=== PATIENT | male | born 1965 | race Caucasian/White ===

== ENCOUNTER 2024-02-26 11:37 | Outpatient (OUT) | payer BC, SELFPAY ==
[2024-02-26 16:36] LABS: Magnesium 0.9 mg/dL (1.8-2.4)
== END 2024-02-26 11:38 | disposition home or self-care (01) ==
LOC: LAB 11:40
PROVIDERS: PCP Nurse Practitioner; Visit Provider Nurse Practitioner
DX: E83.42 Hypomagnesemia (principal)
CPT/HCPCS: 36415; 83735

== ENCOUNTER 2024-02-27 09:21 | Emergency (ER) | payer BC, SELFPAY ==
[2024-02-27] VITALS (37 sets, daily range): BP systolic 117–162; BP diastolic 80–113; PULSE 67–93; TEMP 36.7; O2SAT 89–98; BMI 38.4
--- NOTE | 2024-02-27 09:41 | ECG_ITS ---
[facility] Test Date: 2024-02-27 Pat Name: VANDA GUILLAUME Department: Room: - Gender: Male Speck Dyer: : 1965 Requested By: ARVIND MUHAMMAD Order Number: [id number] Reading MD: VIOLETA MONTGOMERY Measurements Intervals [place] Rate: 82 P: 42 ID: [id number] QRS: -42 QRSD: 80 T: 24 QT: 354 QTc: 393 Interpretive Statements 1100 Sinus rhythm 1102 Sinus arrhythmia 7200 Abnormal left axis deviation 9130 borderline ECG No previous ECG available for comparison Electronically Signed On 02-27-2024 21:23:54 EDT by VIOLETA MONTGOMERY
--- OUTSIDE RECORDS SUMMARY | 2024-02-27 09:49 | XMS_ITS | CCD ---
Author Organization [facility] Care Team Providers Care Jig And Fixture Repairer Name Role Phone AICHHOLZ, CONCRETE BUCKET LOADER ARVIND Primary Care Unavailable AICHHOLZ, CONCRETE BUCKET LOADER ARVIND Consulting Unavailable AICHHOLZ, CONCRETE BUCKET LOADER ARVIND Attending Unavailable AICHHOLZ, CONCRETE BUCKET LOADER ARVIND Admitting Unavailable AICHHOLZ, CONCRETE BUCKET LOADER ARVIND Consulting Unavailable AICHHOLZ, CONCRETE BUCKET LOADER ARVIND Attending Unavailable AICHHOLZ, CONCRETE BUCKET LOADER ARVIND Admitting Unavailable AICHHOLZ, CONCRETE BUCKET LOADER ARVIND Primary Care Unavailable AICHHOLZ, CONCRETE BUCKET LOADER ARVIND Primary Care Unavailable DR CRIS GAN V Consulting Unavailable AICHHOLZ, CONCRETE BUCKET LOADER ARVIND Attending Unavailable AICHHOLZ, CONCRETE BUCKET LOADER ARVIND Admitting Unavailable AICHHOLZ, CONCRETE BUCKET LOADER ARVIND Consulting Unavailable AICHHOLZ, CONCRETE BUCKET LOADER ARVIND Primary Care Unavailable AICHHOLZ, CONCRETE BUCKET LOADER ARVIND Consulting Unavailable AICHHOLZ, CONCRETE BUCKET LOADER ARVIND Attending Unavailable AICHHOLZ, CONCRETE BUCKET LOADER ARVIND Admitting Unavailable AICHHOLZ, CONCRETE BUCKET LOADER ARVIND Primary Care Unavailable AICHHOLZ, CONCRETE BUCKET LOADER ARVIND Consulting Unavailable AICHHOLZ, CONCRETE BUCKET LOADER ARVIND Attending Unavailable AICHHOLZ, CONCRETE BUCKET LOADER ARVIND Admitting Unavailable AICHHOLZ, ARVIND Attending Unavailable AGUSTIN STOKES Attending Unavailable ARASELI PATEL Referring Unavailable ARASELI PATEL Attending Unavailable Problems Active Problems Problem Classification Problem Date Documented Da te Episodic/Chronic Essential hypertension (1 source) Essential (primary) hypertension; Translations: [ESSENTIAL PRIMARY HYPERTENSION] Onset: 07-22-2022 Chronic Heart valve disorders (1 source) Nonrheumatic pulmonary valve insufficiency; 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 INSUFF] Onset: 03-02-2022 Chronic Other nutritional; endocrine; and metabolic disorders (1 source) Obesity, unspecified; Translations: [OBESITY UNSPECIFIED] Onset: 07-22-2022 Chronic Other nutritional; endocrine; and metabolic disorders (1 source) Body mass index (BMI) 30.0-30.9, adult; Translations: [BODY MASS INDEX BMI 30.0-30.9 ADULT] Onset: 07-22-2022 Chronic Other nutritional; endocrine; and metabolic disorders (1 source) Hypomagnesemia; Translations: [HYPOMAGNESEMIA] Onset: 12-28-2021 Chronic Other screening for suspected conditions (not mental disorders or infectious disease) (1 source) Encounter for screening for malignant neoplasm of prostate; Translations: [ENC SCREEN MALIG NEOPLASM PROSTATE] Onset: 07-22-2022 Episodic Thyroid disorders (4 sources) Hypothyroidism, unspecified; Translations: [HYPOTHYROIDISM UNSPECIFIED] Onset: 07-19-2022 Chronic Past or Other Problems Problem Classification Problem Date Documented Da te Episodic/Chronic Diabetes mellitus without complication (1 source) Hyperglycemia, unspecified; Translations: [HYPERGLYCEMIA UNSPECIFIED] Onset: 12-28-2021 Episodic Fluid and electrolyte disorders (4 sources) Hypokalemia; Translations: [HYPOKALEMIA] Onset: 12-25-2021 Episodic Other lower respiratory disease (4 sources) Dyspnea, unspecified; Translations: [DYSPNEA UNSPECIFIED] Onset: 04-04-2022 Episodic Syncope (5 sources) Syncope and collapse; Translations: [SYNCOPE AND COLLAPSE] Onset: 02-27-2022 Episodic Results Test Name Value Interpretation Reference Range Facility CBC AUTO DIFFon 07-19-2022 BASO # 0.1 103/ul Normal 0.0-0.1 [facility] Comment on above: Performed By: #### C BC #### [facility] [address] [place] [address] Dr. Lavonne Tinoco Basophils/100 WBC (Bld) 0.9 % Normal 0.2-2.0 [facility] Comment on above: Performed By: #### C BC #### [facility] [address] [place] [address] Dr. Lavonne Tinoco EO # 0.4 103/ul Normal 0.0-0.7 [facility] Comment on above: Performed By: #### C BC #### [facility] [address] [place] [address] Dr. Lavonne Tinoco Eosinophils/100 WBC (Bld) 4.5 % Normal 0.9-7.0 [facility] Comment on above: Performed By: #### C BC #### [facility] [address] [place] [address] Dr. Lavonne Tinoco Erythrocyte distribution width (RBC) [Ratio] 13.4 % Normal 11.0-15.0 [facility] Comment on above: Performed By: #### C BC #### [facility] [address] [place] [address] Dr. Lavonne Tinoco Hematocrit (Bld) [Volume fraction] 45.0 % Normal 42.0-54.0 [facility] Comment on above: Performed By: #### C BC #### [facility] [address] [place] [address] Dr. Lavonne Tinoco Hemoglobin (Bld) [Mass/Vol] 15.1 g/dL Normal 14.0-18.0 [facility] Comment on above: Performed By: #### C BC #### [facility] [address] [place] [address] Dr. Lavonne Tinoco IG # 0.04 10e3/ul Critically high 0.00-0.03 [facility] Comment on above: Performed By: #### C BC #### [facility] [address] [place] [address] Dr. Lavonne Tinoco IG % 0.4 % Normal 0.0-0.5 [facility] Comment on above: Performed By: #### C BC #### [facility] [address] [place] [address] Dr. Lavonne Tinoco LYMPH # 2.0 103/ul Normal 1.2-3.8 [facility] Comment on above: Performed By: #### C BC #### [facility] [address] [place] [address] Dr. Lavonne Tinoco Lymphocytes/100 WBC (Bld) 21.6 % Normal 20.5-60.0 [facility] Comment on above: Performed By: #### C BC #### [facility] [address] [place] [address] Dr. Lavonne Tinoco MANUAL DIFF REQ NO Normal [facility] Comment on above: Performed By: #### C BC #### [facility] [address] [place] [address] Dr. Lavonne Tinoco MCH (RBC) [Entitic mass] 32.7 pg Normal 25.9-34.0 [facility] Comment on above: Performed By: #### C BC #### [facility] [address] [place] [address] Dr. Lavonne Tinoco MCHC (RBC) [Mass/Vol] 33.6 g/dL Normal 29.9-35.2 [facility] Comment on above: Performed By: #### C BC #### [facility] [address] [place] [address] Dr. Lavonne Tinoco MCV (RBC) [Entitic vol] 97.4 fL Critically high 80.0-94.0 [facility] Comment on above: Performed By: #### C BC #### [facility] [address] [place] [address] Dr. Lavonne Tinoco MONO # 0.6 103/ul Normal 0.3-0.8 [facility] Comment on above: Performed By: #### C BC #### [facility] [address] [place] [address] Dr. Lavonne Tinoco Monocytes/100 WBC (Bld) 6.0 % Normal 1.7-12.0 [facility] Comment on above: Performed By: #### C BC #### [facility] [address] [place] [address] Dr. Lavonne Tinoco NEUT # 6.3 103/ul Normal 1.4-6.5 [facility] Comment on above: Performed By: #### C BC #### [facility] [address] [place] [address] Dr. Lavonne Tinoco Neutrophils/100 WBC (Bld) 66.6 % Normal 43.0-75.0 [facility] Comment on above: Performed By: #### C BC #### [facility] [address] [place] [address] Dr. Lavonne Tinoco Platelet mean volume (Bld) [Entitic vol] 10.7 fL Normal 9.5-13.5 [facility] Comment on above: Performed By: #### C BC #### [facility] [address] [address] [address] Lavonne Tinoco PLT 300 103/ul Normal 150-450 [facility] Comment on above: Performed By: #### C BC #### [facility] [address] [place] [address] Dr. Lavonne Tinoco RBC 4.62 106/ul Critically low 4.70-6.10 [facility] Comment on above: Performed By: #### C BC #### [facility] [address] [address] [address] Lavonne Tinoco WBC 9.4 103/ul Normal 4.0-11.0 [facility] Comment on above: Performed By: #### C BC #### [facility] [address] [place] [address] Dr. Lavonne Tinoco FREE T4on 07-19-2022 Free T4 [Mass/Vol] 0.90 ng/dL Normal 0.76-1.46 [facility] Comment on above: Performed By: #### C MP, TSH, LIPID #### [facility] [address] [place] [address] Dr. Lavonne Tinoco LIPID PROFILEon 07-19-2022 CHOL-HDL RATIO NORM SEE BELOW Normal [facility] Comment on above: Result Comment: 3.3 - 4.4 LOW RISK 4.4 - 7.1 AVERAGE RISK 7.1 - 11.0 MODERATE RISK >11.0 HIGH RISK Performed By: #### C MP, TSH, LIPID #### [facility] [address] [place] [address] Dr. Lavonne Tinoco Cholesterol [Mass/Vol] 207 mg/dL Critically high <=200 [facility] Comment on above: Performed By: #### C MP, TSH, LIPID #### [facility] [address] [place] [address] Dr. Lavonne Tinoco Cholesterol in HDL [Mass/Vol] 37 mg/dL Critically low 40-60 [facility] Comment on above: Performed By: #### C MP, TSH, LIPID #### [facility] [address] [place] [address] Dr. Lavonne Tinoco Cholesterol in LDL [Mass/Vol] 143.8 mg/dL Normal [facility] Comment on above: Performed By: #### C MP, TSH, LIPID #### [facility] [address] [address] [address] Lavonne Tinoco Cholesterol.total/Ch olesterol in HDL [Mass ratio] 5.6 {ratio} Normal [facility] Comment on above: Performed By: #### C MP, TSH, LIPID #### [facility] [address] [address] [address] Lavonne Tinoco HDL NORMAL > or = 60 mg/dl - LO W CARDIOVASCULAR RISK <40 mg/dl - HIGH CARDIOVASCULAR RISK Normal [facility] Comment on above: Performed By: #### C MP, TSH, LIPID #### [facility] [address] [address] [address] Lavonne Tinoco LDL CALC NORMAL SEE BELOW Normal [facility] Comment on above: Result Comment: <100 mg/dl OPTIMAL 100 - 129 mg/dl NEAR OR ABOVE OPTIMAL 130 - 159 mg/dl BORDERLINE HIGH 160 - 189 mg/dl HIGH >190 mg/dl VERY HIGH Performed By: #### C MP, TSH, LIPID #### [facility] [address] [address] [address] Lavonne Tinoco Triglyceride [Mass/Vol] 131 mg/dL Normal <=150 [facility] Comment on above: Performed By: #### C MP, TSH, LIPID #### [facility] [address] [address] [address] Lavonne Tinoco VLDL CALC 26.2 mg/dL Normal [facility] Comment on above: Performed By: #### C MP, TSH, LIPID #### [facility] [address] [address] [address] Lavonne Tinoco PROF 14(COMP METB)on 022 Albumin [Mass/Vol] 3.6 g/dL Normal 3.4-5.0 [facility] Comment on above: Performed By: #### C MP, TSH, LIPID #### [facility] [address] [address] [address] Lavonne Tinoco Albumin/Globulin [Mass ratio] 1.0 {ratio} Normal [facility] Comment on above: Performed By: #### C MP, TSH, LIPID #### [facility] [address] [address] [address] Lavonne Tinoco ALP [Catalytic activity/Vol] 85 U/L Normal 46-116 [facility] Comment on above: Performed By: #### C MP, TSH, LIPID #### [facility] [address] [address] [address] Lavonne Tinoco ALT [Catalytic activity/Vol] 33 U/L Normal 16-63 [facility] Comment on above: Performed By: #### C MP, TSH, LIPID #### [facility] [address] [address] [address] Lavonne Tinoco Anion gap [Moles/Vol] 9.2 mmol/L Normal [facility] Comment on above: Performed By: #### C MP, TSH, LIPID #### [facility] [address] [address] [address] Lavonne Tinoco AST [Catalytic activity/Vol] 17 U/L Normal 15-37 [facility] Comment on above: Performed By: #### C MP, TSH, LIPID #### [facility] [address] [address] [address] Lavonne Tinoco Bilirubin [Mass/Vol] 0.5 mg/dL Normal 0.2-1.0 [facility] Comment on above: Performed By: #### C MP, TSH, LIPID #### [facility] [address] [address] [address] Lavonne Tinoco Calcium [Mass/Vol] 8.5 mg/dL Normal 8.5-10.1 [facility] Comment on above: Performed By: #### C MP, TSH, LIPID #### [facility] [address] [address] [address] Lavonne Tinoco Chloride [Moles/Vol] 106 mmol/L Normal 98-107 [facility] Comment on above: Performed By: #### C MP, TSH, LIPID #### [facility] [address] [address] [address] Lavonne Tinoco CO2 [Moles/Vol] 31.3 mmol/L Normal 21.0-32.0 [facility] Comment on above: Performed By: #### C MP, TSH, LIPID #### [facility] [address] [address] [address] Lavonne Tinoco Creatinine [Mass/Vol] 1.06 mg/dL Normal 0.70-1.30 [facility] Comment on above: Performed By: #### C MP, TSH, LIPID #### [facility] [address] [address] [address] Lavonne Tinoco EGFR-AF [place] >60 Normal >=60 [facility] Comment on above: Performed By: #### C MP, TSH, LIPID #### [facility] [address] [place] [address] Dr. Lavonne Tinoco EGFR-NON AF [place] >60 Normal >=60 [facility] Comment on above: Performed By: #### C MP, TSH, LIPID #### [facility] [address] [place] [address] Dr. Lavonne Tinoco Globulin (S) [Mass/Vol] 3.6 g/dL Normal [facility] Comment on above: Performed By: #### C MP, TSH, LIPID #### [facility] [address] [place] [address] Dr. Lavonne Tinoco Glucose [Mass/Vol] 101 mg/dL Normal 74-106 [facility] Comment on above: Performed By: #### C MP, TSH, LIPID #### [facility] [address] [address] [address] Lavonne Tinoco Potassium [Moles/Vol] 3.5 mmol/L Normal 3.5-5.1 [facility] Comment on above: Performed By: #### C MP, TSH, LIPID #### [facility] [address] [place] [address] Dr. Lavonne Tinoco Protein [Mass/Vol] 7.2 g/dL Normal 6.4-8.2 [facility] Comment on above: Performed By: #### C MP, TSH, LIPID #### [facility] [address] [place] [address] Dr. Lavonne Tinoco Sodium [Moles/Vol] 143 mmol/L Normal 136-145 [facility] Comment on above: Performed By: #### C MP, TSH, LIPID #### [facility] [address] [place] [address] Dr. Lavonne Tinoco Urea nitrogen [Mass/Vol] 21.0 mg/dL Critically high 7.0-18.0 [facility] Comment on above: Performed By: #### C MP, TSH, LIPID #### [facility] [address] [place] [address] Dr. Lavonne Tinoco Urea nitrogen/Creatinine [Mass ratio] 19.8 mg/mg Normal [facility] Comment on above: Performed By: #### C MP, TSH, LIPID #### [facility] [address] [place] [address] Dr. Lavonne Tinoco TSHon 07-19-2022 TSH 1.947 uIU/mL Normal 0.358-3.740 [facility] Comment on above: Performed By: #### C MP, TSH, LIPID #### [facility] [address] [place] [address] Dr. Lavonne Tinoco UA RANDOM W/MICROSCOPICon BACTERIA NONE SEEN Normal NONE SEEN [facility] Comment on above: Performed By: #### U AMIC #### [facility] [address] [place] [address] Dr. Lavonne Tinoco Bilirubin Ql (U) Negative Normal NEGATIVE [facility] Comment on above: Performed By: #### U AMIC #### [facility] [address] [place] [address] Dr. Lavonne Tinoco CAST NONE SEEN Normal NONE SEEN [facility] Comment on above: Performed By: #### U AMIC #### [facility] [address] [place] [address] Dr. Lavonne Tinoco Clarity (U) CLEAR Normal CLEAR [facility] Comment on above: Performed By: #### U AMIC #### [facility] [address] [place] [address] Dr. Lavonne Tinoco Color (U) YELLOW Normal YELLOW [facility] Comment on above: Performed By: #### U AMIC #### [facility] [address] [address] [address] Lavonne Tinoco Crystals LM Nom (Urine sed) NONE SEEN Normal NONE SEEN [facility] Comment on above: Performed By: #### U AMIC #### [facility] [address] [address] [address] Lavonne Tinoco Epithelial cells LM Ql (Urine sed) FEW Abnormal NONE SEEN /RARE [facility] Comment on above: Performed By: #### U AMIC #### [facility] [address] [address] [address] Lavonne Tinoco Glucose Ql (U) Negative Normal NEGATIVE [facility] Comment on above: Performed By: #### U AMIC #### [facility] [address] [address] [address] Lavonne Tinoco Hemoglobin Ql (U) Negative Normal NEGATIVE The [facility] Comment on above: Performed By: #### U AMIC #### [facility] [address] [address] [address] Lavonne Tinoco Ketones Ql (U) Negative Normal NEGATIVE [facility] Comment on above: Performed By: #### U AMIC #### [facility] [address] [address] [address] Lavonne Tinoco LEUKOCYTES TRACE Abnormal NEGATIVE [facility] Comment on above: Performed By: #### U AMIC #### [facility] [address] [address] [address] Lavonne Tinoco MUCOUS NONE SEEN Normal NONE SEEN [facility] Comment on above: Performed By: #### U AMIC #### [facility] [address] [address] [address] Lavonne Tinoco Nitrite Ql (U) Negative Normal NEGATIVE [facility] Comment on above: Performed By: #### U AMIC #### [facility] [address] [address] [address] Lavonne Tinoco pH (U) 6.0 [pH] Normal 5-9 [facility] Comment on above: Performed By: #### U AMIC #### [facility] [address] [address] [address] Lavonne Tinoco RBC NONE SEEN Abnormal 0-2 [facility] Comment on above: Performed By: #### U AMIC #### [facility] [address] [address] [address] Lavonne Tinoco SPEC GRAVITY 1.020 Normal 1.005-<=1.025 [facility] Comment on above: Performed By: #### U AMIC #### [facility] [address] [address] [address] Lavonne Tinoco UA PROTEIN TRACE Normal NEGATIVE/ TRACE [facility] Comment on above: Performed By: #### U AMIC #### [facility] [address] [place] [address] Dr. Lavonne Tinoco Urobilinogen Qn (U) 2.0 {Erick'U}/dL Abnormal 0.2 - 1. 0 [facility] Comment on above: Performed By: #### U AMIC #### [facility] [address] [place] [address] Dr. Lavonne Tinoco WBC 0-2 Abnormal NONE SEEN [facility] Comment on above: Performed By: #### U AMIC #### [facility] [address] [place] [address] Dr. Lavonne Tinoco NM STRESS/REST MULTIon 04-04 NM STRESS/REST MULTI Patient: VANDA GUILLAUME Exam Date: 04/04/2022 : 1965 Gender:M Ordering : [facility] Admission #: [id number] Family : Order #: [id number] CLICK HERE TO VIEW EXAM RADIOLOGY REPORT PROCEDURE: RADIONUCLIDE IMAGING STRESS/REST MULTI COMPARISON: None. INDICATIONS: Dyspnea, hypertension TECHNIQUE: Exam Description: Stress/Rest one day protocol gated SPECT Rest Imagin.4 mCi Tc-99m Cardiolite IV on 04/04/2022 Stress Imaging 30.3 mCi Tc-99m Cardiolite IV on 04/04/2022 Exercise Protocol: 0.4 mg Lexiscan given IV Heart Rate (bpm): Rest: 73 Max: 100 PMHR: 60 Blood Pressure: Rest: 146/84 Max: 154/90 Symptoms: Rest and peak stress ECG findings were abnormal and the exercise portion of the study was Non-diagnostic per attending physician Dr. Roland due to EKG changes. For more details please see separate cardiac stress test report. FINDINGS: QUALITY OF STUDY: Good. PERFUSION DEFECT: None. LOCATION: N/A SIZE: N/A. SEVERITY: N/A. TYPE: WALL MOTION: Mild hypokinesis: LV SIZE: Enlarged; EDV 136 mL. TID / TCD: None; 1.1 LVEF: Abnormal. Calculated EF 47%. SUMMARY: Myocardial perfusion imaging study has ABNORMAL findings. CONCLUSION: 1. No reversible ischemia 2. Dilated ventricle, end diastolic volume of 136 3. Low left ventricular ejection fraction 47% 4. Abnormal exercise test secondary to EKG changes Dictated by: Cris Gan MD on 04/04/2022 at 13:14 Approved by: Cris Gan MD on 04/04/2022 at 13:16 Normal [facility] ECHOCARDIO M/2D COMPLETEon 0 02-27-2022 ECHOCARDIO M/2D COMPLETE Patient: VANDA GUILLAUME Exam Date: 02/27/2022 : 1965 Gender:M Ordering : [facility]IND [facility] Admission #: [id number] Family : Order #: [id number] CLICK HERE TO VIEW EXAM ECHOCARDIOGRAM REPORT PROCEDURE: CARDIO PULMONARY ECHOCARDIO M/2D COMP INDICATIONS: Syncope, hypertension, smoker COMPARISON: None. DESCRIPTION: COMPLETE ECHOCARDIOGRAM Real-time transthoracic echocardiography with 2D, M-mode, spectral and color flow Doppler performed. QUALITY: Technical quality was good. LEFT VENTRICLE: Normal chamber size. Mild concentric left ventricular hypertrophy. LV EF: Global left ventricular systolic function is normal; visually estimated ejection fraction is 55 to 60%. No wall motion abnormalities. DIASTOLIC: Normal diastolic function. ATRIAL SEPTUM: Visually appears intact. LEFT ATRIUM: Normal chamber size. RIGHT ATRIUM: Normal chamber size. RIGHT VENTRICLE: Normal chamber size. Right ventricular systolic function appears reduced. TRICUSPID VALVE: Normal mobility and thickness. No stenosis with trivial regurgitation. Doppler studies reveal moderately (45-60) elevated right sided pressures. RVSP 52 mmHg MITRAL VALVE: Normal mobility and thickness. No evidence of mitral valve stenosis. There is no mitral annular calcification. Trivial mitral regurgitation. AORTIC VALVE: Normal trileaflet appearance. No visible sclerosis. Normal leaflet mobility. No evidence of aortic valve stenosis. No aortic regurgitation. AORTIC ROOT: Normal diameter and appearance. Ascending aorta is normal in size. PULMONIC VALVE: Normal thickness and mobility. No stenosis. Mild regurgitation. PERICARDIUM: No evidence of pericardial effusion. IVC: Collapses with inspirations. PLEURA: CONCLUSION: Global left ventricular systolic function is normal; visually estimated ejection fraction is 55 to 60%. No significant wall motion abnormalities. Mild left ventricular hypertrophy. Normal diastolic function. The right ventricle appears normal in size. Right ventricular systolic function appears reduced. Moderately elevated right-sided pressures. Mild pulmonic regurgitation. Adult Echocardiography Procedure Report Left Ventricle LVEDD (3.7 - 5.6 cm): 5.15 cm LVESD (2.2 - 4.0 cm): 4.08 cm LVIVS thickness (0.6 - 1.2 cm): 1.11 cm LVPW thickness (0.5 - 1.0 cm): 1.14 cm e': 11.40 cm/s E - e': 6.70 LVOT Area (cm2): 6.61 cm2 LVOT Diameter 2.90 cm Left Atrium LA Volume Index (2D A2C): 26.10 ml/m2 Left Atrium Systolic Dimension: 4.30 cm Left Atrium Systolic Area(A2C): 20.20 cm2 Left Atrium Systolic Area(A4C): 21.60 cm2 Left Atrium Systolic Volume(A2C): 51320 mm3 Left Atrium Systolic Volume(A4C): 23917 mm3 Mitral Valve MV E to A Ratio: 1 Mitral Valve A-Wave Peak Velocity: 73.10 cm/s Mitral Valve E-Wave Peak Velocity: 76.00 cm/s Deceleration Time: 222 ms Right Ventricle Aorta AO Root Diam: 3.90 cm Aortic Valve AoV Area (Peak Marshall): 5.30 cm2 Peak Velocity(Antegrade Flow): 131.00 cm/s Peak Gradient(Antegrade Flow): 7 mm[Hg] Tricuspid Valve Pulmonic Valve Peak Velocity: 102.00 cm/s Peak Gradient: 4 mm[Hg] Right Atrium Dictated by: Dylan Peck M.D. on 02/28/2022 at 11:48 Approved by: Dylan Peck M.D. on 02/28/2022 at 11:52 Normal [facility] ANKLE LEFT 3 VWSon 2 ANKLE LEFT 3 [facility] Department of Radiology [address] [place] [address] Patient Name: VANDA GUILLAUME : 1965 Sex: M Age: Race: White Pt. Location: Patient Status: D Ordered Date: 01/11/2022 9:05:00 AM Completed Date: 01/11/2022 09:13 AM Requesting Provider: RON HAMILTON Attending Provider: RON HAMILTON Report Copy To: Signs & Symptoms: M25.572 Pain in left ankle and joints of left foot I10 History: [place] Comments: Views (X-RAY, ANKLE): AP, Lateral, Mortise , Weight Bearing?: Y Exam: ANKLE LEFT 3 [facility] ANKLE LEFT 3 [facility] 01/11/2022 9:13 AM CLINICAL INDICATIONS: M25.572 Pain in left ankle and joints of left foot I10 TECHNOLOGIST COMMENTS: Left ankle pain. Last left ankle surgery was ten years ago. QUESTION FOR THE RADIOLOGIST: Views (X-RAY, ANKLE): AP, Lateral, Mortise , Weight Bearing?: Y PROTOCOL: AP,Lateral and Oblique views were obtained. COMPARISON: 04/21/2012 FINDINGS: Calcification across the interosseous membrane is appreciated. Distal fibular plate and screw fixation is appreciated. Alignment is maintained. Interval narrowing of the tibiotalar articulation has occurred in the interval. Progressive degenerative changes along the medial tibiotalar articulation are noted. There is no acute complication IMPRESSION: Chronic changes as detailed above Electronically signed: Violeta Jay. Transcribed by: [email or web address], User Resident: Electronically Signed by: VIOLETA JAY @ 01/12/2022 03:24 PM Normal [facility] Comment on above: Order Comment: Views (X-RAY, ANKLE): AP, Lateral, Mortise , Weight Bearing?: Y GLYCOHEMOGLOBIN A1Con 2021 ADA RECOMMENDATION ADA THERAPEUTIC TARGET 6.0 - 7.0 ACTION SUGGESTED > 7.0 Normal [facility] Comment on above: Performed By: #### A 1C #### [facility] [address] [place] [address] Dr. Lavonne Tinoco Glucose [Mass/Vol] 100 mg/dL Normal [facility] Comment on above: Performed By: #### A 1C #### [facility] [address] [place] [address] Dr. Lavonne Tinoco HbA1c (Bld) [Mass fraction] 5.1 % Normal <=6.0 [facility] Comment on above: Performed By: #### A 1C #### [facility] [address] [place] [address] Dr. Lavonne Tinoco MAGNESIUMon 12-25-2021 Magnesium [Mass/Vol] 1.7 mg/dL Normal 1.6-2.3 [facility] Comment on above: Performed By: #### M G, BMP #### [facility] [address] [place] [address] Dr. Lavonne Tinoco PROF CHEM 8 (BAS METB)on Anion gap [Moles/Vol] 12.3 mmol/L Normal [facility] Comment on above: Performed By: #### M G, BMP #### [facility] [address] [address] [address] Lavonne Tinoco Calcium [Mass/Vol] 8.7 mg/dL Normal 8.5-10.1 [facility] Comment on above: Performed By: #### M G, BMP #### [facility] [address] [place] [address] Dr. Lavonne Tinoco Chloride [Moles/Vol] 107 mmol/L Normal 98-107 [facility] Comment on above: Performed By: #### M G, BMP #### [facility] [address] [address] [address] Lavonne Tinoco CO2 [Moles/Vol] 27.4 mmol/L Normal 22.0-30.0 [facility] Comment on above: Performed By: #### M G, BMP #### [facility] [address] [address] [address] Lavonne Tinoco Creatinine [Mass/Vol] 1.50 mg/dL Critically high 0.66-1.25 [facility] Comment on above: Performed By: #### M G, BMP #### [facility] [address] [place] [address] Dr. Lavonne Tinoco EGFR-AF [place] 59 mL/min/1.73m2 Critically low >=60 [facility] Comment on above: Performed By: #### M G, BMP #### [facility] [address] [place] [address] Dr. Lavonne Tinoco EGFR-NON AF [place] 49 mL/min/1.73m2 Critically low >=60 [facility] Comment on above: Performed By: #### M G, BMP #### [facility] [address] [place] [address] Dr. Lavonne Tinoco Glucose [Mass/Vol] 103 mg/dL Normal 74-106 [facility] Comment on above: Performed By: #### M G, BMP #### [facility] [address] [place] [address] Dr. Lavonne Tinoco Potassium [Moles/Vol] 3.7 mmol/L Normal 3.4-5.0 [facility] Comment on above: Performed By: #### M G, BMP #### [facility] [address] [place] [address] Dr. Lavonne Tinoco Sodium [Moles/Vol] 143 mmol/L Normal 137-145 [facility] Comment on above: Performed By: #### M G, BMP #### [facility] [address] [place] [address] Dr. Lavonne Tinoco Urea nitrogen [Mass/Vol] 17.0 mg/dL Normal 7.0-18.0 [facility] Comment on above: Performed By: #### M G, BMP #### [facility] [id number] Lavonne Tinoco Urea nitrogen/Creatinine [Mass ratio] 11.3 mg/mg Normal [facility] Comment on above: Performed By: #### M G, BMP #### [facility] [id number] Lavonne Tinoco Encounters Encounter Date Encounter Type Care Provider Facility Start: 02-04-2024 End: 02-04-2024 ambulatory ARASELI PATEL Not Available Start: 01-07-2024 End: 01-07-2024 ambulatory AGUSTIN CHAUIRMA Not Available Start: 11-26-2023 End: 11-26-2023 ambulatory ARVIND AICHHOLZ Not Available Start: 07-19-2022 End: 07-20-2022 ambulatory [employer] ARVIND AICHHOLZ Facility:[facility] Start: 04-04-2022 End: 04-05-2022 ambulatory [employer] ARVIND AICHHOLZ Facility:[facility] Start: 02-27-2022 End: 02-28-2022 ambulatory [employer] ARVIND AICHHOLZ Facility:[facility] Start: 01-16-2022 End: 01-17-2022 ambulatory [employer] ARVIND AICHHOLZ Facility:[facility] Start: 12-25-2021 End: 12-26-2021 ambulatory [employer] ARVIND AICHHOLZ Facility:[facility] Procedures Date Procedure Procedure Detail Performing Clinician Start: 07-19-2022 PSA screening [employer] ARVIND AICHHOLZ Comment on above: Performed By: #### C MP, TSH, LIPID #### [facility] [address] [place], [place] [address] Dr. Lavonne Tinoco Payers Date Payer Category Payer Unknown [id number] .16.84 [id number] 1965 Unknown [id number] .16.84 [id number] 1965 Unknown [id number] .16.84 [id number] 1965 Unknown [id number] 2.16.84 [id number] 1965 Unknown [id number] 2.16.84 [id number] 1965 Unknown [id number] 2.16.84 [id number] 1965 Unknown [id number] 2.16.84 [id number] 1965 Unknown [id number] 2.16.84 [id number] 1957 Unknown [id number] 1957 Unknown [id number] Summary Purpose Family History No Family History Records FoundNo Family History Records FoundNo Family History Records Found Advance Directives No Advanced Directives Records FoundNo Advanced Directives Records FoundNo Advanced Directives Records Found Additional Source Comments (unrecognized sect ion and content) No Status Records FoundNo Status Records FoundNo Status Records Found INFORMATION SOURCE (unrecogn ized section and content) DATE CREATED AUTHOR 05/18/2022 [facility] DATE CREATED AUTHOR AUTHOR'S ORGANIZ ATION 07/22/2022 [facility] DATE CREATED AUTHOR AUTHOR'S ORGANIZ ATION 02/05/2024 [facility] [place] [facility] FOR RECORDS PERTAINING TO PATIENTS WHO ARE OR HAVE BEEN ENROLLED IN A CHEMICAL DEPENDENCY/SUBSTANCEABUSE PROGRAM, SOME INFORMATION MAY BE OMITTED. This clinical summary was aggregated from multiple sources. Caution should be exercised in using it in the provision of clinical care. This summary normalizes information from multiple sources, and as a consequence, information in this document may materially change the coding, format and clinical context of patient data. In addition, data may be omitted in some cases. CLINICAL DECISIONS SHOULD BE BASED ON THE PRIMARY CLINICAL RECORDS. [facility] [employer] provides no warranty or guarantee of the accuracy or completeness of information in this document.
--- NOTE | 2024-02-27 09:54 | PC.NURSE ---
patient reports history of low magnesium-history of this for years. patient states he had routine blood work done and his physician called and said that he needed to come to er for magnesium replacement due to magnesium being 0.9 on labs. patient endorses muscle spasms and cramping but states this is ongoing for years.
--- NOTE | 2024-02-27 09:56 | ED_ITS ---
HPI - Recheck/Abnormal Lab/Rx General Chief Complaint: Recheck/Abnormal Lab/Rx Stated Complaint: LOW MAGNESIUM CLINIC REFERRAL Time Seen by Provider: 02/27/24 09:40 Source: patient Mode of arrival: walk-in Limitations: no limitations History of Present Illness HPI narrative: The patient presenting to us after he had a workup done yesterday by his primary care doctor that showed that his magnesium is 0.9, the patient have some cramping in the lower extremity he mentioned that he has been dealing with this hypomagnesemia for the last year at least He has been taking 500 mg twice a day of magnesium sulfate orally No other complaints of dizziness follow any other concerns Related Data Allergies Allergy/AdvReac Type Severity Reaction Status Date / Time No Known Drug Allergies Allergy Verified 02/27/24 09:26 Review of Systems ROS Status of ROS 10 or more systems reviewed and unremark able except as noted in history and below Exam Narrative Exam Narrative: Nurses notes and vital signs reviewed and patient is not hypoxic. General: Well-appearing and in no apparent distress. Skin: Warm, dry, no pallor noted. No rash. Head: Normocephalic, atraumatic. Neck: Supple, non-tender. Eye: Pupils are equal, round and EOMI. No scleral icterus. Ears, Nose, Mouth, and Throat: TM are clear, no nasal mucosal hypertrophy. Oral mucosa is moist, no posterior oropharynx erythema, uvula is mid-line Cardiovascular: Regular Rate and Rhythm without murmur, gallop or rub. Respiratory: No accessory muscle use or respiratory distress. Lungs are clear to auscultation, no wheezing, rales or rhonchi Chest Wall: no tenderness Back: No midline thoracic or lumbar vertebral tenderness. No CVA tenderness Musculoskeletal: normal ROM, no calf or popliteal tenderness, no lower extremity edema/swelling GI: Abdomen is soft, non-distended. Normal bowel sounds. No masses appreciated. No tenderness to palpation. No rebound, guarding, or rigidity noted. Neurological: A&O x4. No cranial nerve dysfunction observed. No truncal ataxia. Moves all extremities. Sensation intact. Psychiatric: Cooperative and interactive. Normal mood and affect. Constitutional Vital Signs, click to edit/add: Last Vital Signs Temp 98.1 F 02/27/24 09:28 Pulse 86 02/27/24 14:20 Resp 20 02/27/24 14:20 BP 148/94 H 02/27/24 14:07 Pulse Ox 94 L 02/27/24 14:21 O2 Del Method Room Air 02/27/24 14:21 O2 Flow Rate 2 02/27/24 11:50 Course Vital Signs Vital signs: Vital Signs Temperature 98.1 F 02/27/24 09:28 Pulse Rate 88 02/27/24 09:28 Respiratory Rate 17 02/27/24 09:28 Blood Pressure 162/107 H 02/27/24 09:28 Pulse Oximetry 95 02/27/24 09:28 Oxygen Delivery Method Room Air 02/27/24 09:28 Temperature 98.1 F 02/27/24 09:28 Pulse Rate 86 02/27/24 14:20 Respiratory Rate 20 02/27/24 14:20 Blood Pressure 148/94 H 02/27/24 14:07 Pulse Oximetry 94 L 02/27/24 14:21 Oxygen Delivery Method Room Air 02/27/24 14:21 Oxygen Delivery Flow Rate 2 02/27/24 11:50 MDM - Recheck/Abnormal Lab/Rx MDM Narrative Medical decision making narrative: EKG showing sinus rhythm with a heart rate of [address] elevation or depression QTc is 393 The patient CBC and chemistry showed no acute pathology except for the magnesium being 0.9 There is no symptoms The patient was provided with magnesium over 4 hours at least during which she had no complaint he was monitored Repeated magnesium level shows a magnesium level of 2 Right now the patient is to continue oral supplement I tried contacting the primary care doctor to obtain an follow-up visit but the patient will follow-up with his primary care doctor within 2 to 3 days for another follow-up test and if not the patient will come back to the ER for reevaluation The patient is to follow up with primary care physician in next 2-3 days or to return to the emergency department should any of the signs or symptoms worsen or new symptoms develop. The patient agrees with the following Diagnosis and T reatment plan and the patient will be discharged home. Lab Data Labs: Lab Results 02/27/24 02/27/24 Range/Units 09:42 13:36 WBC 12.0 H (4.0-11.0) 10^3/uL RBC 4.44 L (4.70-6.10) 10^6/uL Hgb 14.2 (14.0-18.0) g/dL Hct 41.8 L (42.0-54.0) % MCV 94.1 H (80.0-94.0) fL MCH 32.0 (25.9-34.0) pg MCHC 34.0 (29.9-35.2) g/dL RDW 13.5 (11.0-15.0) % Plt Count 293 (150-450) 10^3/uL MPV 10.3 (9.5-13.5) fL Neut % (Auto) 70.5 (43.0-75.0) % Lymph % (Auto) 17.2 L (20.5-60.0) % [place] % (Auto) 6.4 (1.7-12.0) % Eos % (Auto) 4.4 (0.9-7.0) % Baso % (Auto) 1.1 (0.2-2.0) % Neut # (Auto) 8.4 H (1.4-6.5) 10^3/uL Lymph # (Auto) 2.1 (1.2-3.8) 10^3/uL [place] # (Auto) 0.8 (0.3-0.8) 10^3/uL Eos # (Auto) 0.5 (0.0-0.7) 10^3/uL Baso # (Auto) 0.1 (0.0-0.1) 10^3/uL Abs Immat Gran (auto) 0.05 H (0.00-0.03) 10^3/uL Imm/Tot Granulo (auto) 0.4 (0.0-0.5) % Sodium 141 (136-145) mmol/L Potassium 3.6 (3.5-5.1) mmol/L Chloride 104 (98-107) mmol/L Carbon Dioxide 27.6 (21.0-32.0) mmol/L Anion Gap 13.0 BUN 17.0 (7.0-18.0) mg/dL Creatinine 1.16 (0.70-1.30) mg/dL Est GFR ( Amer) >60 (>=60) Est GFR (Non-Af Amer) >60 (>=60) BUN/Creatinine Ratio 14.7 Glucose 100 (74-106) mg/dL Calcium 7.9 L (8.5-10.1) mg/dL Magnesium 0.9 L* 2.0 (1.8-2.4) mg/dL Total Bilirubin 0.6 (0.2-1.0) mg/dL AST 19 (15-37) U/L ALT 32 (16-63) U/L Alkaline Phosphatase 105 (46-116) U/L Total Protein 7.3 (6.4-8.2) g/dL Albumin 3.4 (3.4-5.0) g/dL Globulin 3.9 g/dL Albumin/Globulin Ratio 0.9 Discharge Plan Discharge Stand Alone Forms: Portal Instructions Chief Complaint: Recheck/Abnormal Lab/Rx Clinical Impression: Hypomagnesemia Patient Disposition: Home, Self-Care Time of Disposition Decision: 14:29 Condition: Good Mode of Transportation: Private Vehicle Print Language: Wolof Instructions: Hypomagnesemia (ED) Referrals: Pepper Sexton [employer] [Primary Care Provider] - 1 week
[2024-02-27] MEDS: MAGNESIUM SULFATE IN WATER 2 GM/50 ML PREMIX IV ×2 (09:57→11:16)
[2024-02-27 10:00] LABS: Basophils Absolute Auto 0.1 10^3/uL (0.0-0.1); Basophils Percent Auto 1.1 % (0.2-2.0); Eosinophils Absolute Auto 0.5 10^3/uL (0.0-0.7); Eosinophils Percent Auto 4.4 % (0.9-7.0); Hematocrit 41.8 % (42.0-54.0); Hemoglobin 14.2 g/dL (14.0-18.0); Immature Granulocytes Abs Auto 0.05 10^3/uL (0.00-0.03); Immature Granulocytes Pct Auto 0.4 % (0.0-0.5); Lymphocytes Absolute Auto 2.1 10^3/uL (1.2-3.8); Lymphocytes Percent Auto 17.2 % (20.5-60.0); Mean Corpuscular Volume 94.1 fL (80.0-94.0); Mean Platelet Volume 10.3 fL (9.5-13.5); Monocytes Absolute Auto 0.8 10^3/uL (0.3-0.8); Monocytes Percent Auto 6.4 % (1.7-12.0); Neutrophils Absolute Auto 8.4 10^3/uL (1.4-6.5); Neutrophils Percent Auto 70.5 % (43.0-75.0); Platelet Count 293 10^3/uL (150-450); Red Blood Count 4.44 10^6/uL (4.70-6.10); Red Cell Distribution Width 13.5 % (11.0-15.0)
[2024-02-27 10:39] LABS: Alanine Aminotransferase 32 U/L (16-63); Albumin Globulin Ratio 0.9; Albumin Level 3.4 g/dL (3.4-5.0); Alkaline Phosphatase 105 U/L (46-116); Aspartate Amino Transferase 19 U/L (15-37); BUN Creatinine Ratio 14.7; Bilirubin Total 0.6 mg/dL (0.2-1.0); Calcium 7.9 mg/dL (8.5-10.1); Carbon Dioxide 27.6 mmol/L (21.0-32.0); Chloride 104 mmol/L (98-107); Estimated GFR (African America >60 (>=60); Estimated GFR (Non-African Ame >60 (>=60); Globulin 3.9 g/dL; Glucose 100 mg/dL (74-106); Potassium 3.6 mmol/L (3.5-5.1); Sodium 141 mmol/L (136-145); Total Protein 7.3 g/dL (6.4-8.2)
[2024-02-27 10:52] LABS: Magnesium 0.9 mg/dL (1.8-2.4)
== END 2024-02-27 14:47 | disposition home or self-care (01) ==
PROVIDERS: Emergency Provider Emergency Medicine; PCP Nurse Practitioner
DX: E83.42 Hypomagnesemia (principal)
CPT/HCPCS: 36415; 80053; 83735; 85025; 93005; 96365; 96366; 99284

== ENCOUNTER 2024-03-04 09:14 | Outpatient (OUT) | payer BC, SELFPAY ==
--- OUTSIDE RECORDS SUMMARY | 2024-03-04 09:28 | XMS_ITS ---
Patient Summarization (C-CDA 2.1 CCD) Created on: March 04, 2024 VANDA GUILLAUME : 1965 Sex: Male Author Organization Sample organization Care Team Providers Care Case Aide Name Role Phone AICHHOLZ, NATIONAL PARK RANGER ARVIND Primary Care Unavailable AICHHOLZ, NATIONAL P[employer] RANGER ARVIND Consulting Unavailable AICHHOLZ, NATIONAL PARK RANGER ARVIND Attending Unavailable AICHHOLZ, NATIONAL PARK RANGER ARVIND Admitting Unavailable AICHHOLZ, NATIONAL [employer] RANGER ARVIND Consulting Unavailable AICHHOLZ, NATIONAL PARK RANGER ARVIND Attending Unavailable AICHHOLZ, NATIONAL PARK RANGER ARVIND Admitting Unavailable AICHHOLZ, NATIONAL PARK RANGER ARVIND Primary Care Unavailable AICHHOLZ, NATIONAL [employer] RANGER ARVIND Primary Care Unavailable ELVIA, DR CRIS Alvarez Consulting Unavailable AICHHOLZ, NATIONAL P[employer] RANGER ARVIND Attending Unavailable AICHHOLZ, NATIONAL PARK RANGER ARVIND Admitting Unavailable AICHHOLZ, NATIONAL P[employer] RANGER ARVIND Consulting Unavailable AICHHOLZ, NATIONAL PARK RANGER ARVIND Primary Care Unavailable AICHHOLZ, NATIONAL P[employer] RANGER ARVIND Consulting Unavailable AICHHOLZ, NATIONAL PARK RANGER ARVIND Attending Unavailable AICHHOLZ, NATIONAL PARK RANGER ARVIND Admitting Unavailable AICHHOLZ, NATIONAL PARK RANGER ARVIND Primary Care Unavailable AICHHOLZ, NATIONAL [employer] RANGER ARVIND Consulting Unavailable AICHHOLZ, NATIONAL PARK RANGER ARVIND Attending Unavailable AICHHOLZ, NATIONAL [employer]ARK RANGER ARVIND Admitting Unavailable AICHHOLZ, ARVIND Attending Unavailable KIKE, AGUSTIN Attending Unavailable ARASELI PATEL Referring Unavailable ARASELI PATEL Attending Unavailable AICHHOLZ, ARVIND Attending Unavailable PAMELA ACEVEDO Attending Unavailable ARASELI PATEL Referring Unavailable Encounters Encounter Date Encounter Type Care Provider Facility Start: 02-26-2024 End: 02-26-2024 ambulatory PAMELA ACEVEDO Not Available Start: 02-26-2024 End: 02-26-2024 ambulatory ARVIND AICHHOLZ Not Available Start: 02-04-2024 End: 02-04-2024 ambulatory ARASELI PATEL Not Available Start: 01-07-2024 End: 01-07-2024 ambulatory AGUSTIN STOKES Not Available Start: 11-26-2023 End: 11-26-2023 ambulatory ARVIND AICHHOLZ Not Available Start: 07-19-2022 End: 07-20-2022 ambulatory ROSI MUHAMMAD Facility:[facility] Start: 04-04-2022 End: 04-05-2022 ambulatory ROSI MUHAMMAD Facility:[facility] Start: 02-27-2022 End: 02-28-2022 ambulatory ROSI MUHAMMAD Facility:[facility] Start: 01-16-2022 End: 01-17-2022 ambulatory [employer] ARVIND MUHAMMAD Facility:[facility] Start: 12-25-2021 End: 12-26-2021 ambulatory [employer] ARVIND MUHAMMAD Facility:[facility] Payers Date Payer Category Payer Unknown [id number] 2.16.84 [id number] 1965 Unknown [id number] 2.16.84 [id number] 1965 Unknown [id number] 2.16.84 [id number] 1965 Unknown [id number] 2.16.84 [id number] 1965 Unknown [id number] 2.16.84 [id number] 1965 Unknown [id number] 2.16.84 [id number] 1965 Unknown [id number] 2.16.84 [id number] 1965 Unknown [id number] 2.16.84 [id number] 1965 Unknown [id number] 2.16.84 [id number] 1965 Unknown [id number] 2.16.84 [id number] 1957 Unknown [id number] 1957 Unknown [id number] Problems Active Problems Problem Classification Problem Date [...] Translations: [SYNCOPE AND COLLAPSE] Onset: 02-27-2022 Episodic Procedures Date Procedure Procedure Detail Performing Clinician Start: 07-19-2022 PSA screening ROSI MUHAMMAD Comment on above: Performed By: #### C MP, TSH, LIPID #### [facility] [address] [place] [address] Dr. Lavonne Tinoco Results Test Name Value Interpretation Reference Range Facility CBC AUTO DIFFon 07-19-2022 BASO # 0.1 103/ul Normal 0.0-0.1 [facility] Comment on above: Performed By: #### C BC #### [facility] [address] [place] [address] Dr. Lavonne Tinoco Basophils/100 WBC (Bld) 0.9 % Normal 0.2-2.0 [facility] Comment on above: Performed By: #### C BC #### [facility] [address] [place] [address] Dr. Lavonne Tinoco EO # 0.4 103/ul Normal 0.0-0.7 [facility] Comment on above: Performed By: #### C BC #### [facility] [address] [place] [address] Dr. Lavonne Tinoco Eosinophils/100 WBC (Bld) 4.5 % Normal 0.9-7.0 [facility] Comment on above: Performed By: #### C BC #### [facility] [address] [place] [address] Dr. Lavonne Tinoco Erythrocyte distribution width (RBC) [Ratio] 13.4 % Normal 11.0-15.0 [facility] Comment on above: Performed By: #### C BC #### [facility] [address] [place] [address] Dr. Lavonne Tinoco Hematocrit (Bld) [Volume fraction] 45.0 % Normal 42.0-54.0 [facility] Comment on above: Performed By: #### C BC #### [facility] [address] [place] [address] Dr. Lavonne Tinoco Hemoglobin (Bld) [Mass/Vol] 15.1 g/dL Normal 14.0-18.0 [facility] Comment on above: Performed By: #### C BC #### [facility] [address] [place] [address] Dr. Lavonne Tinoco IG # 0.04 10e3/ul Critically high 0.00-0.03 [facility] Comment on above: Performed By: #### C BC #### [facility] [address] [place] [address] Dr. Lavonne Tinoco IG % 0.4 % Normal 0.0-0.5 [facility] Comment on above: Performed By: #### C BC #### [facility] [address] [address] [address] Lavonne Tinoco LYMPH # 2.0 103/ul Normal 1.2-3.8 [facility] Comment on above: Performed By: #### C BC #### [facility] [address] [address] [address] Lavonne Tinoco Lymphocytes/100 WBC (Bld) 21.6 % Normal 20.5-60.0 [facility] Comment on above: Performed By: #### C BC #### [facility] [address] [address] [address] Lavonne Tinoco MANUAL DIFF REQ NO Normal [facility] Comment on above: Performed By: #### C BC #### [facility] [address] [place] [address] Dr. Lavonne Tinoco MCH (RBC) [Entitic mass] 32.7 pg Normal 25.9-34.0 [facility] Comment on above: Performed By: #### C BC #### [facility] [address] [place] [address] Dr. Lavonne Tinoco MCHC (RBC) [Mass/Vol] 33.6 g/dL Normal 29.9-35.2 [facility] Comment on above: Performed By: #### C BC #### [facility] [address] [place] [address] Dr. Lavonne Tinoco MCV (RBC) [Entitic vol] 97.4 fL Critically high 80.0-94.0 [facility] Comment on above: Performed By: #### C BC #### [facility] [address] [place] [address] Dr. Lavonne Tinoco MONO # 0.6 103/ul Normal 0.3-0.8 [facility] Comment on above: Performed By: #### C BC #### [facility] [address] [place] [address] Dr. Lavonne Tinoco Monocytes/100 WBC (Bld) 6.0 % Normal 1.7-12.0 [facility] Comment on above: Performed By: #### C BC #### [facility] [address] [address] [address] Lavonne Tinoco NEUT # 6.3 103/ul Normal 1.4-6.5 [facility] Comment on above: Performed By: #### C BC #### [facility] [address] [address] [address] Lavonne Tinoco Neutrophils/100 WBC (Bld) 66.6 % Normal 43.0-75.0 [facility] Comment on above: Performed By: #### C BC #### [facility] [address] [address] [address] Lavonne Tinoco Platelet mean volume (Bld) [Entitic vol] 10.7 fL Normal 9.5-13.5 [facility] Comment on above: Performed By: #### C BC #### [facility] [address] [address] [address] Lavonne Tinoco PLT 300 103/ul Normal 150-450 [facility] Comment on above: Performed By: #### C BC #### [facility] [address] [address] [address] Lavonne Tinoco RBC 4.62 106/ul Critically low 4.70-6.10 [facility] Comment on above: Performed By: #### C BC #### [facility] [address] [address] [address] Lavonne Tinoco WBC 9.4 103/ul Normal 4.0-11.0 [facility] Comment on above: Performed By: #### C BC #### [facility] [address] [address] [address] Lavonne Tinoco FREE T4on 07-19-2022 Free T4 [Mass/Vol] 0.90 ng/dL Normal 0.76-1.46 [facility] Comment on above: Performed By: #### C MP, TSH, LIPID #### [facility] [address] [address] [address] Lavonne Tinoco LIPID PROFILEon 07-19-2022 CHOL-HDL RATIO NORM SEE BELOW Normal [facility] Comment on above: Result Comment: 3.3 - 4.4 LOW RISK 4.4 - 7.1 AVERAGE RISK 7.1 - 11.0 MODERATE RISK >11.0 HIGH RISK Performed By: #### C MP, TSH, LIPID #### [facility] [address] [address] [address] Lavonne Tinoco Cholesterol [Mass/Vol] 207 mg/dL Critically high <=200 [facility] Comment on above: Performed By: #### C MP, TSH, LIPID #### [facility] [address] [address] [address] Lavonne Tinoco Cholesterol in HDL [Mass/Vol] 37 mg/dL Critically low 40-60 [facility] Comment on above: Performed By: #### C MP, TSH, LIPID #### [facility] [address] [place] [address] Dr. Lavonne Tinoco Cholesterol in LDL [Mass/Vol] 143.8 mg/dL Normal [facility] Comment on above: Performed By: #### C MP, TSH, LIPID #### [facility] [address] [address] [address] Lavonne Tinoco Cholesterol.total/Ch olesterol in HDL [Mass ratio] 5.6 {ratio} Normal [facility] Comment on above: Performed By: #### C MP, TSH, LIPID #### [facility] [address] [place] [address] Dr. Lavonne Tinoco HDL NORMAL > or = 60 mg/dl - LO W CARDIOVASCULAR RISK <40 mg/dl - HIGH CARDIOVASCULAR RISK Normal [facility] Comment on above: Performed By: #### C MP, TSH, LIPID #### [facility] [address] [place] [address] Dr. Lavonne Tinoco LDL CALC NORMAL SEE BELOW Normal [facility] Comment on above: Result Comment: <100 mg/dl OPTIMAL 100 - 129 mg/dl NEAR OR ABOVE OPTIMAL 130 - 159 mg/dl BORDERLINE HIGH 160 - 189 mg/dl HIGH >190 mg/dl VERY HIGH Performed By: #### C MP, TSH, LIPID #### [facility] [address] [address] [address] Lavonne Tinoco Triglyceride [Mass/Vol] 131 mg/dL Normal <=150 [facility] Comment on above: Performed By: #### C MP, TSH, LIPID #### [facility] [address] [address] [address] Lavonne Tinoco VLDL CALC 26.2 mg/dL Normal [facility] Comment on above: Performed By: #### C MP, TSH, LIPID #### [facility] [address] [place] [address] Dr. Lavonne Tinoco PROF 14(COMP METB)on 022 Albumin [Mass/Vol] 3.6 g/dL Normal 3.4-5.0 [facility] Comment on above: Performed By: #### C MP, TSH, LIPID #### [facility] [address] [place] [address] Dr. Lavonne Tinoco Albumin/Globulin [Mass ratio] 1.0 {ratio} Normal [facility] Comment on above: Performed By: #### C MP, TSH, LIPID #### [facility] [address] [place] [address] Dr. Lavonne Tinoco ALP [Catalytic activity/Vol] 85 U/L Normal 46-116 [facility] Comment on above: Performed By: #### C MP, TSH, LIPID #### [facility] [address] [place] [address] Dr. Lavonne Tinoco ALT [Catalytic activity/Vol] 33 U/L Normal 16-63 [facility] Comment on above: Performed By: #### C MP, TSH, LIPID #### [facility] [address] [place] [address] Dr. Lavonne Tinoco Anion gap [Moles/Vol] 9.2 mmol/L Normal [facility] Comment on above: Performed By: #### C MP, TSH, LIPID #### [facility] [address] [place] [address] Dr. Lavonne Tinoco AST [Catalytic activity/Vol] 17 U/L Normal 15-37 [facility] Comment on above: Performed By: #### C MP, TSH, LIPID #### [facility] [address] [place] [address] Dr. Lavonne Tinoco Bilirubin [Mass/Vol] 0.5 mg/dL Normal 0.2-1.0 [facility] Comment on above: Performed By: #### C MP, TSH, LIPID #### [facility] [address] [place] [address] Dr. Lavonne Tinoco Calcium [Mass/Vol] 8.5 mg/dL Normal 8.5-10.1 [facility] Comment on above: Performed By: #### C MP, TSH, LIPID #### [facility] [address] [place] [address] Dr. Lavonne Tinoco Chloride [Moles/Vol] 106 mmol/L Normal 98-107 [facility] Comment on above: Performed By: #### C MP, TSH, LIPID #### [facility] [address] [place] [address] Dr. Lavonne Tinoco CO2 [Moles/Vol] 31.3 mmol/L Normal 21.0-32.0 [facility] Comment on above: Performed By: #### C MP, TSH, LIPID #### [facility] [address] [place] [address] Dr. Lavonne Tinoco Creatinine [Mass/Vol] 1.06 mg/dL Normal 0.70-1.30 [facility] Comment on above: Performed By: #### C MP, TSH, LIPID #### [facility] [address] [place] [address] Dr. Lavonne Tinoco EGFR-AF BRUNEIAN >60 Normal >=60 [facility] Comment on above: Performed By: #### C MP, TSH, LIPID #### [facility] [address] [place] [address] Dr. Lavonne Tinoco EGFR-NON AF BRUNEIAN >60 Normal >=60 [facility] Comment on above: Performed By: #### C MP, TSH, LIPID #### [facility] [address] [place] [address] Dr. Lavonne Tinoco Globulin (S) [Mass/Vol] 3.6 g/dL Normal [facility] Comment on above: Performed By: #### C MP, TSH, LIPID #### [facility] [address] [place] [address] Dr. Lavonne Tinoco Glucose [Mass/Vol] 101 mg/dL Normal 74-106 [facility] Comment on above: Performed By: #### C MP, TSH, LIPID #### [facility] [address] [place] [address] Dr. Lavonne Tinoco Potassium [Moles/Vol] 3.5 mmol/L Normal 3.5-5.1 [facility] Comment on above: Performed By: #### C MP, TSH, LIPID #### [facility] [address] [address] [address] Lavonne Tinoco Protein [Mass/Vol] 7.2 g/dL Normal 6.4-8.2 [facility] Comment on above: Performed By: #### C MP, TSH, LIPID #### [facility] [address] [place] [address] Dr. Lavonne Tinoco Sodium [Moles/Vol] 143 mmol/L Normal 136-145 [facility] Comment on above: Performed By: #### C MP, TSH, LIPID #### [facility] [address] [place] [address] Dr. Lavonne Tinoco Urea nitrogen [Mass/Vol] 21.0 mg/dL Critically high 7.0-18.0 [facility] Comment on above: Performed By: #### C MP, TSH, LIPID #### [facility] [address] [place] [address] Dr. Lavonne Tinoco Urea nitrogen/Creatinine [Mass ratio] 19.8 mg/mg Normal [facility] Comment on above: Performed By: #### C MP, TSH, LIPID #### [facility] [address] [place] [address] Dr. Lavonne Tinoco TSHon 07-19-2022 TSH 1.947 uIU/mL Normal 0.358-3.740 [facility] Comment on above: Performed By: #### C MP, TSH, LIPID #### [facility] [address] [place] [address] Dr. Lavonne Tinoco UA RANDOM W/MICROSCOPICon BACTERIA NONE SEEN Normal NONE SEEN [facility] Comment on above: Performed By: #### U AMIC #### [facility] [address] [address] [address] Lavonne Tinoco Bilirubin Ql (U) Negative Normal NEGATIVE [facility] Comment on above: Performed By: #### U AMIC #### [facility] [address] [address] [address] Lavonne Tinoco CAST NONE SEEN Normal NONE SEEN [facility] Comment on above: Performed By: #### U AMIC #### [facility] [address] [address] [address] Lavonne Tinoco Clarity (U) CLEAR Normal CLEAR [facility] Comment on above: Performed By: #### U AMIC #### [facility] [address] [place] [address] Dr. Lavonne Tinoco Color (U) YELLOW Normal YELLOW [facility] Comment on above: Performed By: #### U AMIC #### [facility] [address] [place] [address] Dr. Lavonne Tinoco Crystals LM Nom (Urine sed) NONE SEEN Normal NONE SEEN [facility] Comment on above: Performed By: #### U AMIC #### [facility] [address] [address] [address] Lavonne Tinoco Epithelial cells LM Ql (Urine sed) FEW Abnormal NONE SEEN /RARE [facility] Comment on above: Performed By: #### U AMIC #### [facility] [address] [place] [address] Dr. Lavonne Tinoco Glucose Ql (U) Negative Normal NEGATIVE [facility] Comment on above: Performed By: #### U AMIC #### [facility] [address] [address] [address] Lavonne Tinoco Hemoglobin Ql (U) Negative Normal NEGATIVE [facility] Comment on above: Performed By: #### U AMIC #### [facility] [address] [address] [address] Lavonne Tinoco Ketones Ql (U) Negative Normal NEGATIVE [facility] Comment on above: Performed By: #### U AMIC #### [facility] [address] [address] [address] Lavonne Tinoco LEUKOCYTES TRACE Abnormal NEGATIVE [facility] Comment on above: Performed By: #### U AMIC #### [facility] [address] [place] [address] Dr. Lavonne Tinoco MUCOUS NONE SEEN Normal NONE SEEN [facility] Comment on above: Performed By: #### U AMIC #### [facility] [address] [place] [address] Dr. Lavonne Tinoco Nitrite Ql (U) Negative Normal NEGATIVE [facility] Comment on above: Performed By: #### U AMIC #### [facility] [address] [place] [address] Dr. Lavonne Tinoco pH (U) 6.0 [pH] Normal 5-9 [facility] Comment on above: Performed By: #### U AMIC #### [facility] [address] [place] [address] Dr. Lavonne Tinoco RBC NONE SEEN Abnormal 0-2 [facility] Comment on above: Performed By: #### U AMIC #### [facility] [address] [place] [address] Dr. Lavonne Tinoco SPEC GRAVITY 1.020 Normal 1.005-<=1.025 [facility] Comment on above: Performed By: #### U AMIC #### [facility] [address] [place] [address] Dr. Lavonne Tinoco UA PROTEIN TRACE Normal NEGATIVE/ TRACE [facility] Comment on above: Performed By: #### U AMIC #### [facility] [address] [place] [address] Dr. Lavonne Tinoco Urobilinogen Qn (U) 2.0 {Erick'U}/dL Abnormal 0.2 - 1. 0 [facility] Comment on above: Performed By: #### U AMIC #### [facility] [address] [place] [address] Dr. Lavonne Tinoco WBC 0-2 Abnormal NONE SEEN [facility] Comment on above: Performed By: #### U AMIC #### [facility] [address] [place] [address] Dr. Lavonne Tinoco NM STRESS/REST MULTIon 07-13 -2022 NM STRESS/REST MULTI Patient: VANDA GUILLAUME Exam Date: 04/04/2022 : 1965 Gender:M Ordering : ROSI MUHAMMAD [facility] Admission #: [id number] Family : Order #: [id number] CLICK HERE TO VIEW EXAM RADIOLOGY REPORT [...] secondary to EKG changes Dictated by: Cris Kline MD on 04/04/2022 at 13:14 Approved by: Cris Kline MD on 04/04/2022 at 13:16 Normal [facility] ECHOCARDIO M/2D COMPLETEon 0 02-27-2022 ECHOCARDIO M/2D COMPLETE Patient: VANDA GUILLAUME Exam Date: 02/27/2022 : 1965 Gender:M Ordering : ROSI MUHAMMAD [facility] Admission #: [id number] Family : Order #: [id number] CLICK HERE TO VIEW EXAM ECHOCARDIOGRAM REPORT [...] Area(A4C): 21.60 cm2 Left Atrium Systolic Volume(A2C): 44401 mm3 Left Atrium Systolic Volume(A4C): 68193 mm3 Mitral Valve MV E to A [...] Peck M.D. on 02/28/2022 at 11:52 Normal [facility] ANKLE LEFT 3 [facility] 2 ANKLE LEFT 3 [facility] Department of Radiology [address] [place] [id number] Patient Name: VANDA GUILLAUME : 1965 Sex: M Age: Race: White Pt. Location: Patient Status: D Ordered Date: 01/11/2022 9:05:00 AM Completed Date: 01/11/2022 09:13 AM Requesting Provider: RON HAMILTON Attending Provider: RON HAMILTON Report Copy To: Signs & Symptoms: M25.572 Pain in left ankle and joints of left foot I10 History: Rhonda Comments: Views (X-RAY, ANKLE): AP, Lateral, Mortise , Weight Bearing?: Y Exam: ANKLE LEFT 3 [facility] ANKLE LEFT 3 VWS 01/11/2022 9:13 AM CLINICAL INDICATIONS: M25.572 Pain [...] above Electronically signed: Violeta Jay. Transcribed by: [email or web address], User Resident: Electronically Signed by: VIOLETA JAY @ 01/12/2022 03:24 PM Normal [facility] Comment on above: Order Comment: Views (X-RAY, ANKLE): AP, Lateral, Mortise , Weight Bearing?: Y GLYCOHEMOGLOBIN A1Con 2021 ADA RECOMMENDATION ADA THERAPEUTIC TARGET 6.0 - 7.0 ACTION SUGGESTED > 7.0 Normal [facility] Comment on above: Performed By: #### A 1C #### [facility] [address] [address] [address] Lavonne Tinoco Glucose [Mass/Vol] 100 mg/dL Normal [facility] Comment on above: Performed By: #### A 1C #### [facility] [address] [place] [address] Dr[address] Lavonne Tinoco HbA1c (Bld) [Mass fraction] 5.1 % Normal <=6.0 [facility] Comment on above: Performed By: #### A 1C #### [facility] [address] [place] [address] [address] Lavonne Tinoco MAGNESIUMon 12-25-2021 Magnesium [Mass/Vol] 1.7 mg/dL Normal 1.6-2.3 [facility] Comment on above: Performed By: #### M G, BMP #### [facility] [address] [place] [address] Dr. Lavonne Tinoco PROF CHEM 8 (BAS METB)on Anion gap [Moles/Vol] 12.3 mmol/L Normal [facility] Comment on above: Performed By: #### M G, BMP #### [facility] [address] [place] [address] Dr. Lavonne Tinoco Calcium [Mass/Vol] 8.7 mg/dL Normal 8.5-10.1 [facility] Comment on above: Performed By: #### M G, BMP #### [facility] [address] [place] [address] Dr. Lavonne Tinoco Chloride [Moles/Vol] 107 mmol/L Normal 98-107 [facility] Comment on above: Performed By: #### M G, BMP #### [facility] [address] [place] [address] Dr. Lavonne Tinoco CO2 [Moles/Vol] 27.4 mmol/L Normal 22.0-30.0 [facility] Comment on above: Performed By: #### M G, BMP #### [facility] [address] [place] [address] Dr. Lavonne Tinoco Creatinine [Mass/Vol] 1.50 mg/dL Critically high 0.66-1.25 [facility] Comment on above: Performed By: #### M G, BMP #### [facility] [address] [place] [address] Dr. Lavonne Tinoco EGFR-AF BRUNEIAN 59 mL/min/1.73m2 Critically low >=60 [facility] Comment on above: Performed By: #### M G, BMP #### [facility] [address] [place] [address] Dr. Lavonne Tinoco EGFR-NON AF BRUNEIAN 49 mL/min/1.73m2 Critically low >=60 [facility] Comment on above: Performed By: #### M G, BMP #### [facility] [address] [place] [address] Dr. Lavonne Tinoco Glucose [Mass/Vol] 103 mg/dL Normal 74-106 [facility] Comment on above: Performed By: #### M G, BMP #### [facility] [address] [place] [address] [address] Lavonne Tinoco Potassium [Moles/Vol] 3.7 mmol/L Normal 3.4-5.0 [facility] Comment on above: Performed By: #### M G, BMP #### [facility] [address] [place] [address] [address] Lavonne Tinoco Sodium [Moles/Vol] 143 mmol/L Normal 137-145 [facility] Comment on above: Performed By: #### M G, BMP #### [facility] [address] [place] [address] [address] Lavonne Tinoco Urea nitrogen [Mass/Vol] 17.0 mg/dL Normal 7.0-18.0 [facility] Comment on above: Performed By: #### Last G, BMP #### [facility] [address] [place] [address] [address] Lavonne Tinoco Urea nitrogen/Creatinine [Mass ratio] 11.3 mg/mg Normal [facility] Comment on above: Performed By: #### M G, BMP #### [facility] [address] [place] [address] Dr. Lavonne Tinoco Summary Purpose Family History No Family History Records FoundNo Family History Records FoundNo Family History Records Found Advance Directives No Advanced Directives Records FoundNo Advanced Directives Records FoundNo Advanced Directives Records Found Additional Source Comments (unrecognized sect ion and content) No Status Records FoundNo Status Records FoundNo Status Records Found INFORMATION SOURCE (unrecogn ized section and content) DATE CREATED AUTHOR 05/18/2022 [facility] DATE CREATED AUTHOR AUTHOR'S ORGANIZ ATION 07/22/2022 [facility] DATE CREATED AUTHOR AUTHOR'S ORGANIZ ATION 02/27/2024 [facility] [employer] [employer] EPIC FOR RECORDS PERTAINING TO PATIENTS WHO ARE [...] BE BASED ON THE PRIMARY CLINICAL RECORDS. [employer] [facility]. provides no warranty or guarantee of the accuracy or completeness of information in this document.
[2024-03-04 11:18] LABS: Magnesium 1.1 mg/dL (1.8-2.4)
[2024-03-05 12:14] LABS: PTH, Intact 24 pg/mL (15-65)
== END 2024-03-04 09:15 | disposition home or self-care (01) ==
LOC: LAB 09:18
PROVIDERS: PCP Nurse Practitioner; Visit Provider Nurse Practitioner
DX: E83.42 Hypomagnesemia (principal)
CPT/HCPCS: 36415; 83735; 83970

== ENCOUNTER 2024-03-16 08:26 | Outpatient (OUT) | payer BC, SELFPAY ==
--- OUTSIDE RECORDS SUMMARY | 2024-03-16 08:46 | XMS_ITS ---
Patient Summarization (C-CDA 2.1 CCD) Created on: March 16, 2024 VANDA GUILLAUME : 1965 Sex: Male Author Organization Sample organization Care Team Providers Care Armored Car Guard Name Role Phone AICHHOLZ, SENIOR SYSTEM OPERATOR ARVIND Primary Care Unavailable AICHHOLZ, SENIOR SYSTEM OPERATOR ARVIND Consulting Unavailable AICHHOLZ, SENIOR SYSTEM OPERATOR ARVIND Attending Unavailable AICHHOLZ, SENIOR SYSTEM OPERATOR ARVIND Admitting Unavailable AICHHOLZ, SENIOR SYSTEM OPERATOR ARVNID Consulting Unavailable AICHHOLZ, SENIOR SYSTEM OPERATOR ARVIND Attending Unavailable AICHHOLZ, SENIOR SYSTEM OPERATOR ARVIND Admitting Unavailable AICHHOLZ, SENIOR SYSTEM OPERATOR ARVIND Primary Care Unavailable AICHHOLZ, SENIOR SYSTEM OPERATOR ARVIND Primary Care Unavailable DR CRIS GAN V Consulting Unavailable AICHHOLZ, SENIOR SYSTEM OPERATOR ARVIND Attending Unavailable AICHHOLZ, SENIOR SYSTEM OPERATOR ARVIND Admitting Unavailable AICHHOLZ, SENIOR SYSTEM OPERATOR ARVIND Consulting Unavailable AICHHOLZ, SENIOR SYSTEM OPERATOR ARVIND Primary Care Unavailable AICHHOLZ, SENIOR SYSTEM OPERATOR ARVIND Consulting Unavailable AICHHOLZ, SENIOR SYSTEM OPERATOR ARVIND Attending Unavailable AICHHOLZ, SENIOR SYSTEM OPERATOR ARVIND Admitting Unavailable AICHHOLZ, SENIOR SYSTEM OPERATOR ARVIND Primary Care Unavailable AICHHOLZ, SENIOR SYSTEM OPERATOR ARVIND Consulting Unavailable AICHHOLZ, SENIOR SYSTEM OPERATOR ARVIND Attending Unavailable AICHHOLZ, SENIOR SYSTEM OPERATOR ARVIND Admitting Unavailable AICHHOLZ, ARVIND Attending Unavailable AGUSTIN STOKES Attending Unavailable ARASELI PATEL Referring Unavailable ARASELI PATEL Attending Unavailable AICHHOLZ, ARVIND Attending Unavailable PAMELA ACEVEDO Attending Unavailable ARASELI PATEL Referring Unavailable RUPERT PERALTA Attending Unavailable AICHHOLZ, ARVIND Attending Unavailable Encounters Encounter Date Encounter Type Care Provider Facility Start: 03-11-2024 End: 03-11-2024 ambulatory ARVIND AICHHOLZ Not Available Start: 03-05-2024 End: 03-05-2024 ambulatory RUPERT PERALTA Not Available Start: 02-26-2024 End: 02-26-2024 ambulatory PAMELA ACEVEDO Not Available Start: 02-26-2024 End: 02-26-2024 ambulatory ARVIND AICHHOLZ Not Available Start: 02-04-2024 End: 02-04-2024 ambulatory ARASELI PATEL Not Available Start: 01-07-2024 End: 01-07-2024 ambulatory AGUSTIN STOKES Not Available Start: 11-26-2023 End: 11-26-2023 ambulatory ARVIND MUHAMMAD Not Available Start: 07-19-2022 End: 07-20-2022 ambulatory ROSI CHAVEZHOLZ Facility:[facility] Start: 04-04-2022 End: 04-05-2022 ambulatory SENIOR SYSTEM OPERATOR ARVIND CHAVEZHOLZ Facility:[facility] Start: 02-27-2022 End: 02-28-2022 ambulatory SENIOR SYSTEM OPERATOR ARVIND SCOTTHOLZ Facility:[facility] Start: 01-16-2022 End: 01-17-2022 ambulatory SENIOR SYSTEM OPERATOR ARVIND MUHAMMAD Facility:[facility] Start: 12-25-2021 End: 12-26-2021 ambulatory ROSI MUHAMMAD Facility:[facility] Payers Date Payer Category Payer Unknown [id number] 1965 Unknown [id number] ..[id number] 1965 Unknown [id number] ..[id number] 1965 Unknown [id number] ..[id number] 1965 Unknown [id number] ..[id number] 1965 Unknown [id number] .16.84 [id number] 1965 Unknown [id number] ..[id number] [id number] 1965 Unknown [id number] .16.84 [id number] 1965 Unknown [id number] ..[id number] 1965 Unknown [id number] .16.84 [id number] 1965 Unknown [id number] 2.16.84 [id number] 1965 Unknown [id number] 2.16.84 [id number] 1957 Unknown [id number] 1957 Unknown [id number] Problems Active Problems Problem Classification Problem Date [...] Detail Performing Clinician Start: 07-19-2022 PSA screening SENIOR SYSTEM OPERATOR ARVIND MUHAMMAD Comment on above: Performed By: #### C MP, TSH, LIPID #### [facility] [address] [place] [address] Dr. Lavonne Tinoco Results Test Name Value Interpretation Reference Range Facility CBC AUTO DIFFon 07-19-2022 BASO # 0.1 103/ul Normal 0.0-0.1 [facility] Comment on above: Performed By: #### C BC #### [facility] [address] [place] [address] Dr. Lavonne Tinoco Basophils/100 WBC (Bld) 0.9 % Normal 0.2-2.0 [facility] Comment on above: Performed By: #### C BC #### [facility] [address] [place] [address] Dr. Lavonne Tinoco EO # 0.4 103/ul Normal 0.0-0.7 [facility] Comment on above: Performed By: #### C BC #### [facility] [address] [place] [address] Dr. Lavonne Tinoco Eosinophils/100 WBC (Bld) 4.5 % Normal 0.9-7.0 [facility] Comment on above: Performed By: #### C BC #### [facility] [address] [place] [address] Dr. Lavonne Tinoco Erythrocyte distribution width (RBC) [Ratio] 13.4 % Normal 11.0-15.0 [facility] Comment on above: Performed By: #### C BC #### [facility] [address] [place] [address] Dr. aLvonne Tinoco Hematocrit (Bld) [Volume fraction] 45.0 % Normal 42.0-54.0 [facility] Comment on above: Performed By: #### C BC #### [facility] [address] [place] [address] Dr. Lavonne Tinoco Hemoglobin (Bld) [Mass/Vol] 15.1 g/dL Normal 14.0-18.0 [facility] Comment on above: Performed By: #### C BC #### [facility] [address] [place] [address] Dr. Lavonne Tinoco IG # 0.04 10e3/ul Critically high 0.00-0.03 [facility] Comment on above: Performed By: #### C BC #### [facility] [address] [place] [address] Dr. Lavonne Tinoco IG % 0.4 % Normal 0.0-0.5 [facility] Comment on above: Performed By: #### C BC #### [facility] [address] [place] [address] Dr. Lavonne Tinoco LYMPH # 2.0 103/ul Normal 1.2-3.8 [facility] Comment on above: Performed By: #### C BC #### [facility] [address] [place] [address] Dr. Lavonne Tinoco Lymphocytes/100 WBC (Bld) 21.6 % Normal 20.5-60.0 [facility] Comment on above: Performed By: #### C BC #### [facility] [address] [place] [address] Dr. Lavonne Tinoco MANUAL DIFF REQ NO Normal [facility] Comment on above: Performed By: #### C BC #### [facility] [address] [place] [address] Dr. Lavonne Tinoco MCH (RBC) [Entitic mass] 32.7 pg Normal 25.9-34.0 [facility] Comment on above: Performed By: #### C BC #### [facility] [address] [place] [address] Dr. Lavonne Tinoco MCHC (RBC) [Mass/Vol] 33.6 g/dL Normal 29.9-35.2 [facility] Comment on above: Performed By: #### C BC #### [facility] [address] [place] [address] Dr. Lavonne Tinoco MCV (RBC) [Entitic vol] 97.4 fL Critically high 80.0-94.0 [facility] Comment on above: Performed By: #### C BC #### [facility] [address] [address] [address] Lavonne Tinoco MONO # 0.6 103/ul Normal 0.3-0.8 [facility] Comment on above: Performed By: #### C BC #### [facility] [address] [address] [address] Lavonne Tinoco Monocytes/100 WBC (Bld) 6.0 % Normal 1.7-12.0 [facility] Comment on above: Performed By: #### C BC #### [facility] [address] [place] [address] Dr. Lavonne Tinoco NEUT # 6.3 103/ul Normal 1.4-6.5 [facility] Comment on above: Performed By: #### C BC #### [facility] [address] [place] [address] Dr. Lavonne Tinoco Neutrophils/100 WBC (Bld) 66.6 % Normal 43.0-75.0 [facility] Comment on above: Performed By: #### C BC #### [facility] [address] [place] [address] Dr. Lavonne Tinoco Platelet mean volume (Bld) [Entitic vol] 10.7 fL Normal 9.5-13.5 [facility] Comment on above: Performed By: #### C BC #### [facility] [address] [place] [address] Dr. Lavonne Tinoco PLT 300 103/ul Normal 150-450 [facility] Comment on above: Performed By: #### C BC #### [facility] [address] [place] [address] Dr. Lavonne Tinoco RBC 4.62 106/ul Critically low 4.70-6.10 [facility] Comment on above: Performed By: #### C BC #### [facility] [address] [place] [address] Dr. Lavonne Tinoco WBC 9.4 103/ul Normal 4.0-11.0 [facility] Comment on above: Performed By: #### C BC #### [facility] [address] [place] [address] Dr. Lavonne Tinoco FREE T4on 07-19-2022 Free T4 [Mass/Vol] 0.90 ng/dL Normal 0.76-1.46 [facility] Comment on above: Performed By: #### C MP, TSH, LIPID #### [facility] [address] [address] [address] Lavonne Tinoco LIPID PROFILEon 07-19-2022 CHOL-HDL RATIO NORM SEE BELOW Normal [facility] Comment on above: Result Comment: 3.3 - 4.4 LOW RISK 4.4 - 7.1 AVERAGE RISK 7.1 - 11.0 MODERATE RISK >11.0 HIGH RISK Performed By: #### C MP, TSH, LIPID #### [facility] [address] [address] [address] Lavonne Tinoco Cholesterol [Mass/Vol] 207 mg/dL Critically high <=200 [facility] Comment on above: Performed By: #### C MP, TSH, LIPID #### [facility] [address] [address] [address] Lavonne Tinoco Cholesterol in HDL [Mass/Vol] 37 mg/dL Critically low 40-60 [facility] Comment on above: Performed By: #### C MP, TSH, LIPID #### [facility] [address] [address] [address] Lavonne Tinoco Cholesterol in LDL [Mass/Vol] 143.8 mg/dL Normal [facility] Comment on above: Performed By: #### C MP, TSH, LIPID #### [facility] [address] [address] [address] Lavonne Tinoco Cholesterol.total/Ch olesterol in HDL [Mass ratio] 5.6 {ratio} Normal [facility] Comment on above: Performed By: #### C MP, TSH, LIPID #### [facility] [address] [address] [address] Lavonne Tinoco HDL NORMAL > or = 60 mg/dl - LO W CARDIOVASCULAR RISK <40 mg/dl - HIGH CARDIOVASCULAR RISK Normal [facility] Comment on above: Performed By: #### C MP, TSH, LIPID #### [facility] [address] [address] [address] Lavonne Tinoco LDL CALC NORMAL SEE BELOW Normal [facility] Comment on above: Result Comment: <100 mg/dl OPTIMAL 100 - 129 mg/dl NEAR OR ABOVE OPTIMAL 130 - 159 mg/dl BORDERLINE HIGH 160 - 189 mg/dl HIGH >190 mg/dl VERY HIGH Performed By: #### C MP, TSH, LIPID #### [facility] [address] [address] [address] Lavonne Tinoco Triglyceride [Mass/Vol] 131 mg/dL Normal <=150 [facility] Comment on above: Performed By: #### C MP, TSH, LIPID #### [facility] [address] [address] [address] Lavonne Tinoco VLDL CALC 26.2 mg/dL Normal [facility] Comment on above: Performed By: #### C MP, TSH, LIPID #### [facility] [address] [place] [address] Dr. Lavonne Tinoco PROF 14(COMP METB)on 022 Albumin [Mass/Vol] 3.6 g/dL Normal 3.4-5.0 [facility] Comment on above: Performed By: #### C MP, TSH, LIPID #### [facility] [address] [place] [address] Dr. Lavonne Tinoco Albumin/Globulin [Mass ratio] 1.0 {ratio} Normal [facility] Comment on above: Performed By: #### C MP, TSH, LIPID #### [facility] [address] [place] [address] Dr. Lavonne Tinoco ALP [Catalytic activity/Vol] 85 U/L Normal 46-116 [facility] Comment on above: Performed By: #### C MP, TSH, LIPID #### [facility] [address] [place] [address] Dr. Lavonne Tinoco ALT [Catalytic activity/Vol] 33 U/L Normal 16-63 [facility] Comment on above: Performed By: #### C MP, TSH, LIPID #### [facility] [address] [place] [address] Dr. Lavonne Tinoco Anion gap [Moles/Vol] 9.2 mmol/L Normal [facility] Comment on above: Performed By: #### C MP, TSH, LIPID #### [facility] [address] [place] [address] Dr. Lavonne Tinoco AST [Catalytic activity/Vol] 17 U/L Normal 15-37 [facility] Comment on above: Performed By: #### C MP, TSH, LIPID #### [facility] [address] [place] [address] Dr. Lavonne Tinoco Bilirubin [Mass/Vol] 0.5 mg/dL Normal 0.2-1.0 [facility] Comment on above: Performed By: #### C MP, TSH, LIPID #### [facility] [address] [place] [address] Dr. Lavonne Tinoco Calcium [Mass/Vol] 8.5 mg/dL Normal 8.5-10.1 [facility] Comment on above: Performed By: #### C MP, TSH, LIPID #### [facility] [address] [place] [address] Dr. Lavonne Tinoco Chloride [Moles/Vol] 106 mmol/L Normal 98-107 [facility] Comment on above: Performed By: #### C MP, TSH, LIPID #### [facility] [address] [place] [address] Dr. Lavonne Tinoco CO2 [Moles/Vol] 31.3 mmol/L Normal 21.0-32.0 [facility] Comment on above: Performed By: #### C MP, TSH, LIPID #### [facility] [address] [place] [address] Dr. Lavonne Tinoco Creatinine [Mass/Vol] 1.06 mg/dL Normal 0.70-1.30 [facility] Comment on above: Performed By: #### C MP, TSH, LIPID #### [facility] [address] [place] [address] Dr. Lavonne Tinoco EGFR-AF NEPALESE >60 Normal >=60 [facility] Comment on above: Performed By: #### C MP, TSH, LIPID #### [facility] [address] [place] [address] Dr. Lavonne Tinoco EGFR-NON AF NEPALESE >60 Normal >=60 [facility] Comment on above: Performed By: #### C MP, TSH, LIPID #### [facility] [address] [place] [address] Dr. Lavonne Tinoco Globulin (S) [Mass/Vol] 3.6 g/dL Normal [facility] Comment on above: Performed By: #### C MP, TSH, LIPID #### [facility] [address] [place] [address] Dr. Lavonne Tinoco Glucose [Mass/Vol] 101 mg/dL Normal 74-106 [facility] Comment on above: Performed By: #### C MP, TSH, LIPID #### [facility] [address] [place] [address] Dr. Lavonne Tinoco Potassium [Moles/Vol] 3.5 mmol/L Normal 3.5-5.1 [facility] Comment on above: Performed By: #### C MP, TSH, LIPID #### [facility] [address] [place] [address] Dr. Lavonne Tinoco Protein [Mass/Vol] 7.2 g/dL Normal 6.4-8.2 [facility] Comment on above: Performed By: #### C MP, TSH, LIPID #### [facility] [address] [place] [address] Dr. Lavonne Tinoco Sodium [Moles/Vol] 143 mmol/L Normal 136-145 [facility] Comment on above: Performed By: #### C MP, TSH, LIPID #### [facility] [address] [place] [address] Dr. Lavonne Tinoco Urea nitrogen [Mass/Vol] 21.0 mg/dL Critically high 7.0-18.0 [facility] Comment on above: Performed By: #### C MP, TSH, LIPID #### [facility] [address] [place] [address] Dr. Lavonne Tinoco Urea nitrogen/Creatinine [Mass ratio] 19.8 mg/mg Normal [facility] Comment on above: Performed By: #### C MP, TSH, LIPID #### [facility] [address] [address] [address] Lavonne Tinoco TSHon 07-19-2022 TSH 1.947 uIU/mL Normal 0.358-3.740 [facility] Comment on above: Performed By: #### C MP, TSH, LIPID #### [facility] [address] [place] [address] Dr. Lavonne Tinoco UA RANDOM W/MICROSCOPICon BACTERIA NONE SEEN Normal NONE SEEN [facility] Comment on above: Performed By: #### U AMIC #### [facility] [address] [place] [address] Dr. Lavonne Tinoco Bilirubin Ql (U) Negative Normal NEGATIVE [facility] Comment on above: Performed By: #### U AMIC #### [facility] [address] [place] [address] Dr. Lavonne Tinoco CAST NONE SEEN Normal NONE SEEN [facility] Comment on above: Performed By: #### U AMIC #### [facility] [address] [place] [address] Dr. Lavonne Tinoco Clarity (U) CLEAR Normal CLEAR [facility] Comment on above: Performed By: #### U AMIC #### [facility] [address] [place] [address] Dr. Lavonne Tinoco Color (U) YELLOW Normal YELLOW [facility] Comment on above: Performed By: #### U AMIC #### [facility] [address] [place] [address] Dr. Lavonne Tinoco Crystals LM Nom (Urine sed) NONE SEEN Normal NONE SEEN [facility] Comment on above: Performed By: #### U AMIC #### [facility] [address] [place] [address] Dr. Lavonne Tinoco Epithelial cells LM Ql (Urine sed) FEW Abnormal NONE SEEN /RARE [facility] Comment on above: Performed By: #### U AMIC #### [facility] [address] [place] [address] Dr. Lavonne Tinoco Glucose Ql (U) Negative Normal NEGATIVE [facility] Comment on above: Performed By: #### U AMIC #### [facility] [address] [address] [address] Lavonne Tinoco Hemoglobin Ql (U) Negative Normal NEGATIVE [facility] Comment on above: Performed By: #### U AMIC #### [facility] [address] [address] [address] Lavonne Tinoco Ketones Ql (U) Negative Normal NEGATIVE [facility] Comment on above: Performed By: #### U AMIC #### [facility] [address] [address] [address] Lavonne Tinoco LEUKOCYTES TRACE Abnormal NEGATIVE [facility] Comment on above: Performed By: #### U AMIC #### [facility] [address] [place] [address] Dr. Lavonne Tinoco MUCOUS NONE SEEN Normal NONE SEEN [facility] Comment on above: Performed By: #### U AMIC #### [facility] [address] [place] [address] Dr. Lavonne Tinoco Nitrite Ql (U) Negative Normal NEGATIVE [facility] Comment on above: Performed By: #### U AMIC #### [facility] [address] [place] [address] Dr. Lavonne Tinoco pH (U) 6.0 [pH] Normal 5-9 [facility] Comment on above: Performed By: #### U AMIC #### [facility] [address] [place] [address] Dr. Lavonne Tinoco RBC NONE SEEN Abnormal 0-2 [facility] Comment on above: Performed By: #### U AMIC #### [facility] [address] [place] [address] Dr. Lavonne Tinoco SPEC GRAVITY 1.020 Normal 1.005-<=1.025 [facility] Comment on above: Performed By: #### U AMIC #### [facility] [address] [place] [address] Dr. Lavonne Tinoco UA PROTEIN TRACE Normal NEGATIVE/ TRACE [facility] Comment on above: Performed By: #### U AMIC #### [facility] [address] [place] [address] Dr. Lavonne Tinoco Urobilinogen Qn (U) 2.0 {Erick'U}/dL Abnormal 0.2 - 1. 0 [facility] Comment on above: Performed By: #### U AMIC #### [facility] [address] [place] [address] Dr. Lavonne Tinoco WBC 0-2 Abnormal NONE SEEN [facility] Comment on above: Performed By: #### U AMIC #### [facility] [address] [address] [address] Lavonne Tinoco NM STRESS/REST MULTIon 04-04 NM STRESS/REST MULTI Patient: VANDA GUILLAUME Exam Date: 04/04/2022 : 1965 Gender:M Ordering : ROSI MUHAMMAD SENIOR SYSTEM OPERATOR Admission #: [id number] Family : Order #: [id number] CLICK HERE TO VIEW EXAM RADIOLOGY REPORT [...] Gan MD on 04/04/2022 at 13:16 Normal [facility] ECHOCARDIO M/2D COMPLETEon 0 02-27-2022 ECHOCARDIO M/2D COMPLETE Patient: VANDA GUILLAUME Exam Date: 02/27/2022 : 1965 Gender:M Ordering : ROSI MUHAMMAD [facility] Admission #: [id number] Family : Order #: [id number] CLICK HERE TO VIEW EXAM ECHOCARDIOGRAM REPORT [...] Area(A4C): 21.60 cm2 Left Atrium Systolic Volume(A2C): 23615 mm3 Left Atrium Systolic Volume(A4C): 29387 mm3 Mitral Valve MV E to A [...] Peck M.D. on 02/28/2022 at 11:52 Normal [facility] ANKLE LEFT 3 [facility] [address] [facility] Department of Radiology [address] [place] [id number] Patient Name: VANDA GUILLAUME : 1965 [...] Weight Bearing?: Y Exam: ANKLE LEFT 3 VWS ANKLE LEFT 3 VWS 01/11/2022 9:13 AM [...] above Electronically signed: Violeta Jay. Transcribed by: [email or web address], User Resident: Electronically Signed by: VIOLETA JAY @ 01/12/2022 03:24 PM Normal [facility] Comment on above: Order Comment: Views (X-RAY, ANKLE): AP, Lateral, Mortise , Weight Bearing?: Y GLYCOHEMOGLOBIN A1Con 2021 ADA RECOMMENDATION ADA THERAPEUTIC TARGET 6.0 - 7.0 ACTION SUGGESTED > 7.0 Normal [facility] Comment on above: Performed By: #### A 1C #### [facility] [address] [place] [address] Dr. Lavonne Tinoco Glucose [Mass/Vol] 100 mg/dL Normal [facility] Comment on above: Performed By: #### A 1C #### [facility] [address] [place] [address] Dr. Lavonne Tinoco HbA1c (Bld) [Mass fraction] 5.1 % Normal <=6.0 [facility] Comment on above: Performed By: #### A 1C #### [facility] [address] [place] [address] Dr. Lavonne Tinoco MAGNESIUMon 12-25-2021 Magnesium [Mass/Vol] 1.7 mg/dL Normal 1.6-2.3 [facility] Comment on above: Performed By: #### M G, BMP #### [facility] [address] [place] [address] Dr. Lavonne Tinoco PROF CHEM 8 (BAS METB)on Anion gap [Moles/Vol] 12.3 mmol/L Normal [facility] Comment on above: Performed By: #### M G, BMP #### [facility] [address] [place] [address] Dr. Lavonne Tinoco Calcium [Mass/Vol] 8.7 mg/dL Normal 8.5-10.1 [facility] Comment on above: Performed By: #### M G, BMP #### [facility] [address] [place] [address] Dr. Lavonne Tinoco Chloride [Moles/Vol] 107 mmol/L Normal 98-107 [facility] Comment on above: Performed By: #### M G, BMP #### [facility] [address] [place] [address] Dr. Lavonne Tinoco CO2 [Moles/Vol] 27.4 mmol/L Normal 22.0-30.0 [facility] Comment on above: Performed By: #### M G, BMP #### [facility] [address] [place] [address] Dr. Lavonne Tinoco Creatinine [Mass/Vol] 1.50 mg/dL Critically high 0.66-1.25 [facility] Comment on above: Performed By: #### M G, BMP #### [facility] [address] [place] [address] Dr. Lavonne Tinoco EGFR-AF NEPALESE 59 mL/min/1.73m2 Critically low >=60 [facility] Comment on above: Performed By: #### M G, BMP #### [facility] [address] [place] [address] Dr. Lavonne Tinoco EGFR-NON AF NEPALESE 49 mL/min/1.73m2 Critically low >=60 [facility] Comment on above: Performed By: #### M G, BMP #### [facility] [address] [address] [address] Lavonne Tinoco Glucose [Mass/Vol] 103 mg/dL Normal 74-106 [facility] Comment on above: Performed By: #### Last G, BMP #### [facility] [address] [place] [address] Dr. Lavonne Tinoco Potassium [Moles/Vol] 3.7 mmol/L Normal 3.4-5.0 [facility] Comment on above: Performed By: #### Last Allison, BMP #### [facility] [address] [place] [address] Dr. Lavonne Tinoco Sodium [Moles/Vol] 143 mmol/L Normal 137-145 [facility] Comment on above: Performed By: #### Last Allison, BMP #### [facility] [address] [place] [address] Dr. Lavonne Tinoco Urea nitrogen [Mass/Vol] 17.0 mg/dL Normal 7.0-18.0 [facility] Comment on above: Performed By: #### Last Allison, BMP #### [facility] [address] [place] [address] Dr. Lavonne Tinoco Urea nitrogen/Creatinine [Mass ratio] 11.3 mg/mg Normal [facility] Comment on above: Performed By: #### Last G, BMP #### [facility] [address] [place] [address] Dr. Lavonne Tinoco Summary Purpose Family History [...] and content) DATE CREATED AUTHOR 05/18/2022 [facility] DATE CREATED AUTHOR AUTHOR'S ORGANIZ ATION 07/22/2022 [facility] DATE CREATED AUTHOR AUTHOR'S ORGANIZ ATION 03/12/2024 [facility] EPIC FOR RECORDS PERTAINING TO PATIENTS [...] BE BASED ON THE PRIMARY CLINICAL RECORDS. [employer] provides no warranty or guarantee of the accuracy or completeness of information in this document.
[2024-03-16 09:16] LABS: Magnesium 1.1 mg/dL (1.8-2.4)
== END 2024-03-16 08:27 | disposition home or self-care (01) ==
LOC: LAB 08:27
PROVIDERS: PCP Nurse Practitioner; Visit Provider Nurse Practitioner
DX: E83.42 Hypomagnesemia (principal)
CPT/HCPCS: 36415; 83735

== ENCOUNTER 2024-03-31 08:27 | Outpatient (OUT) | payer BC, SELFPAY ==
[2024-03-31 08:49] LABS: Magnesium 1.9 mg/dL (1.8-2.4)
== END 2024-03-31 08:28 | disposition home or self-care (01) ==
LOC: LAB 08:28
PROVIDERS: PCP Nurse Practitioner; Visit Provider Nurse Practitioner
DX: E83.42 Hypomagnesemia (principal)
CPT/HCPCS: 36415; 83735

== ENCOUNTER 2024-04-20 12:59 | Outpatient (OUT) | payer BC, SELFPAY ==
--- OUTSIDE RECORDS SUMMARY | 2024-04-20 13:22 | XMS_ITS | CCD ---
Author Organization [facility] Care Team Providers Care Game Trapper Name Role Phone AICHHOLZ, SNOWBOARD DESIGNER PEPPER Primary Care Unavailable AICHHOLZ, SNOWBOARD DESIGNER PEPPER Consulting Unavailable AICHHOLZ, SNOWBOARD DESIGNER PEPPER Attending Unavailable AICHHOLZ, SNOWBOARD DESIGNER PEPPER Admitting Unavailable AICHHOLZ, SNOWBOARD DESIGNER PEPPER Consulting Unavailable AICHHOLZ, SNOWBOARD DESIGNER PEPPER Attending Unavailable AICHHOLZ, SNOWBOARD DESIGNER PEPPER Admitting Unavailable AICHHOLZ, SNOWBOARD DESIGNER PEPPER Primary Care Unavailable AICHHOLZ, SNOWBOARD DESIGNER PEPPER Primary Care Unavailable DR CRIS GAN V Consulting Unavailable AICHHOLZ, SNOWBOARD DESIGNER PEPPER Attending Unavailable AICHHOLZ, SNOWBOARD DESIGNER PEPPER Admitting Unavailable AICHHOLZ, SNOWBOARD DESIGNER PEPPER Consulting Unavailable AICHHOLZ, SNOWBOARD DESIGNER PEPPER Primary Care Unavailable AICHHOLZ, SNOWBOARD DESIGNER PEPPER Consulting Unavailable AICHHOLZ, SNOWBOARD DESIGNER PEPPER Attending Unavailable AICHHOLZ, SNOWBOARD DESIGNER PEPPER Admitting Unavailable AICHHOLZ, SNOWBOARD DESIGNER PEPPER Primary Care Unavailable AICHHOLZ, SNOWBOARD DESIGNER PEPPER Consulting Unavailable AICHHOLZ, SNOWBOARD DESIGNER PEPPER Attending Unavailable AICHHOLZ, SNOWBOARD DESIGNER PEPPER Admitting Unavailable AICHHOLZ, PEPPER Attending Unavailable AGUSTIN STOKES Attending Unavailable ARASELI PATEL Referring Unavailable ARASELI PATEL Attending Unavailable AICHHOLZ, PEPPER Attending Unavailable PAMELA ACEVEDO Attending Unavailable ARASELI PATEL Referring Unavailable RUPERT PERALTA Attending Unavailable AICHHOLZ, PEPPER Attending Unavailable AICHHOLZ, PEPPER Attending Unavailable Medications Current Medications Medication Drug Class(es) Dates Sig (Normalized) Sig (Original) [id number] 200 actuat albuterol 0.09 mg/actuat metered dose inhaler (1 source) beta2-Adrenergic Agonist Start: 03-19-2024 take 1 puff(s) by inhalation every six hours Albuterol Sulfate Active 2 PUFF INHALATION Every 6 hours March 19, 2024 12:00am amLODIPine 10 mg oral tablet (1 source) Dihydropyridine Calcium Channel Linnea Start: 03-19-2024 take 10 mg by mouth once daily Amlodipine Active 10 MG PO Daily March 19, 2024 12:00am 120 actuat budesonide 0.08 mg/actuat / formoterol fumarate 0.0045 mg/actuat metered dose inhaler (2 sources) Corticosteroid, beta2-Adrenergic Agonist Start: 03-19-2024 End: 03-19-2024 take 1 puff(s) by inhalation twice daily Budesonide-Formote rol (Symbicort) 80-4.5 mcg/actuation HFA aerosol inhaler Active 2 PUFF INHALATION Twice daily March 19, 2024 9:38am cloNIDine hydrochloride 0.1 mg oral tablet (1 source) Central alpha-2 Adrenergic Agonist Start: 03-19-2024 take 0.1 mg by mouth twice daily Clonidine Hcl Active 0.1 MG PO Twice daily 60 March 19, 2024 12:00am doxepin hydrochloride 100 mg oral capsule (1 source) Tricyclic Antidepressant Start: 03-19-2024 take 100 mg by mouth once daily at bedtime Doxepin Active 100 MG PO Daily at bedtime March 19, 2024 12:00am famotidine 20 mg oral tablet (1 source) Histamine-2 Receptor Antagonist Start: 03-19-2024 take 1 tablet by mouth twice daily Famotidine (Pepcid) 20 mg tablet Active 20 MG PO Twice daily 60 March 19, 2024 12:00am gabapentin 600 mg oral tablet (1 source) Anti-epileptic Agent Start: 03-19-2024 take 600 mg by mouth twice daily Gabapentin Active 600 MG PO Twice daily March 19, 2024 12:00am levothyroxine sodium 0.1 mg oral tablet (1 source) l-Thyroxine Start: 03-19-2024 take 100 ug by mouth once daily Levothyroxine Active 100 MCG PO Daily March 19, 2024 12:00am magnesium oxide 400 mg oral tablet (2 sources) Start: 03-19-2024 take 400 mg by mouth three times daily Magnesium Oxide Active 400 MG PO Three times daily March 19, 2024 9:39am Start: 03-19-2024 End: 03-19-2024 take 400 mg by mouth twice daily Magnesium Oxide Discontinued 400 MG PO Twice daily March 19, 2024 12:00am March 19, 2024 9:41am meloxicam 15 mg oral tablet (1 source) Nonsteroidal Anti-inflammatory Drug Start: 03-19-2024 take 15 mg by mouth once daily Meloxicam Active 15 MG PO Daily March 19, 2024 12:00am montelukast 10 mg oral tablet (1 source) Leukotriene Receptor Antagonist Start: 03-19-2024 take 10 mg by mouth once daily at bedtime Montelukast Active 10 MG PO Daily at bedtime March 19, 2024 12:00am Naltrexone (2 sources) Opioid Antagonist Start: 03-19-2024 take 4.5 mg by mouth once daily Naltrexone Active 4.5 MG PO .QD March 19, 2024 9:40am Start: 03-19-2024 End: 03-19-2024 Naltrexone Discontinued MG P O March 19, 2024 12:00am March 19, 2024 9:41am nebivolol 10 mg oral tablet (1 source) Start: 03-19-2024 take 10 mg by mouth once daily Nebivolol Active 10 MG PO Daily March 19, 2024 12:00am valsartan 320 mg oral tablet (1 source) Angiotensin 2 Receptor Linnea Start: 03-19-2024 take 320 mg by mouth once daily Valsartan Active 320 MG PO Daily March 19, 2024 12:00am Completed/Discontinued Medications Medication Drug Class(es) Dates Sig (Normalized) Sig (Original) omeprazole 40 mg delayed release oral capsule (1 source) Proton Pump Inhibitor Start: 03-19-2024 End: 03-19-2024 take 40 mg by mouth once Omeprazole Discontinued 40 MG PO Once March 19, 2024 12:00am March 19, 2024 10:03am Problems Active Problems Problem Classification Problem Date Documented Date Episodic/Chronic Esophageal disorders (2 sources) Gastroesophageal reflux disease; Translations: [Gastro-esophageal reflux disease without esophagitis] 03-19-2024 Chronic Essential hypertension (3 sources) Essential (primary) hypertension; Translations: [Essential hypertension] Onset: 07-22-2022 03-19-2024 Chronic Heart valve disorders (1 source) Nonrheumatic [...] Chronic Other nutritional; endocrine; and metabolic disorders (2 sources) Hypomagnesemia; Translations: [Disorders of magnesium metabolism] Onset: 12-28-2021 03-19-2024 Chronic Other nutritional; endocrine; and metabolic disorders (1 source) Hypomagnesemia; Translations: [Hypomagnesemia] 03-19-2024 Chronic Other screening for suspected conditions (not [...] 07-19-2022 BASO # 0.1 103/ul Normal 0.0-0.1 [facility] Comment on above: Performed By: #### C BC #### [facility] [address] [address] [address] Lavonne Tinoco Basophils/100 WBC (Bld) 0.9 % Normal 0.2-2.0 [facility] Comment on above: Performed By: #### C BC #### [facility] [address] [place] [address] Dr. Lavonne Tinoco EO # 0.4 103/ul Normal 0.0-0.7 [facility] Comment on above: Performed By: #### C BC #### [facility] [address] [place] [address] Dr. Lavonne Tinoco Eosinophils/100 WBC (Bld) 4.5 % Normal 0.9-7.0 [facility] Comment on above: Performed By: #### C BC #### [facility] [address] [place] [address] Dr. Lavonne Tinoco Erythrocyte distribution width (RBC) [Ratio] 13.4 % Normal 11.0-15.0 [facility] Comment on above: Performed By: #### C BC #### [facility] [address] [place] [address] Dr. Lavonne Tinoco Hematocrit (Bld) [Volume fraction] 45.0 % Normal 42.0-54.0 [facility] Comment on above: Performed By: #### C BC #### [facility] [address] [place] [address] Dr. Lavonne Tinoco Hemoglobin (Bld) [Mass/Vol] 15.1 g/dL Normal 14.0-18.0 [facility] Comment on above: Performed By: #### C BC #### [facility] [address] [place] [address] Dr. Lavonne Tinoco IG # 0.04 10e3/ul Critically high 0.00-0.03 [facility] Comment on above: Performed By: #### C BC #### [facility] [address] [place] [address] Dr. Lavonne Tinoco IG % 0.4 % Normal 0.0-0.5 [facility] Comment on above: Performed By: #### C BC #### [facility] [address] [place] [address] Dr. Lavonne Tinoco LYMPH # 2.0 103/ul Normal 1.2-3.8 [facility] Comment on above: Performed By: #### C BC #### [facility] [address] [place] [address] Dr. Lavonne Tinoco Lymphocytes/100 WBC (Bld) 21.6 % Normal 20.5-60.0 [facility] Comment on above: Performed By: #### C BC #### [facility] [address] [place] [address] Dr. Lavonne Tinoco MANUAL DIFF REQ NO Normal [facility] Comment on above: Performed By: #### C BC #### [facility] [address] [place] [address] Dr. Lavonne Tinoco MCH (RBC) [Entitic mass] 32.7 pg Normal 25.9-34.0 [facility] Comment on above: Performed By: #### C BC #### [facility] [address] [place] [address] Dr. Lavonne Tinoco MCHC (RBC) [Mass/Vol] 33.6 g/dL Normal 29.9-35.2 [facility] Comment on above: Performed By: #### C BC #### [facility] [address] [place] [address] Dr. Lavonne Tinoco MCV (RBC) [Entitic vol] 97.4 fL Critically high 80.0-94.0 [facility] Comment on above: Performed By: #### C BC #### [facility] [address] [place] [address] Dr. Lavonne Tinoco MONO # 0.6 103/ul Normal 0.3-0.8 [facility] Comment on above: Performed By: #### C BC #### [facility] [address] [place] [address] Dr. Lavonne Tinoco Monocytes/100 WBC (Bld) 6.0 % Normal 1.7-12.0 [facility] Comment on above: Performed By: #### C BC #### [facility] [address] [place] [address] Dr. Lavonne Tinoco NEUT # 6.3 103/ul Normal 1.4-6.5 [facility] Comment on above: Performed By: #### C BC #### [facility] [address] [place] [address] Dr. Lavonne Tinoco Neutrophils/100 WBC (Bld) 66.6 % Normal 43.0-75.0 [facility] Comment on above: Performed By: #### C BC #### [facility] [address] [place] [address] Dr. Lavonne Tinoco Platelet mean volume (Bld) [Entitic vol] 10.7 fL Normal 9.5-13.5 [facility] Comment on above: Performed By: #### C BC #### [facility] [address] [address] [address] Lavonne Tinoco PLT 300 103/ul Normal 150-450 [facility] Comment on above: Performed By: #### C BC #### [facility] [address] [address] [address] Lavonne Tinoco RBC 4.62 106/ul Critically low 4.70-6.10 [facility] Comment on above: Performed By: #### C BC #### [facility] [address] [place] [address] Dr. Lavonne Tinoco WBC 9.4 103/ul Normal 4.0-11.0 [facility] Comment on above: Performed By: #### C BC #### [facility] [address] [place] [address] Dr. Lavonne Tinoco FREE T4on 07-19-2022 Free T4 [Mass/Vol] 0.90 ng/dL Normal 0.76-1.46 [facility] Comment on above: Performed By: #### C MP, TSH, LIPID #### [facility] [address] [place] [address] Dr. Lavonne Tinoco LIPID PROFILEon 07-19-2022 CHOL-HDL RATIO NORM SEE BELOW Normal [facility] Comment on above: Result Comment: 3.3 - 4.4 LOW RISK 4.4 - 7.1 AVERAGE RISK 7.1 - 11.0 MODERATE RISK >11.0 HIGH RISK Performed By: #### C MP, TSH, LIPID #### [facility] [address] [place] [address] Dr. Lavonne Tinoco Cholesterol [Mass/Vol] 207 mg/dL Critically high <=200 [facility] Comment on above: Performed By: #### C MP, TSH, LIPID #### [facility] [address] [address] [address] Lavonne Tinoco Cholesterol in HDL [Mass/Vol] 37 mg/dL Critically low 40-60 [facility] Comment on above: Performed By: #### C MP, TSH, LIPID #### [facility] [address] [address] [address] Lavonne Tinoco Cholesterol in LDL [Mass/Vol] 143.8 mg/dL Normal [facility] Comment on above: Performed By: #### C MP, TSH, LIPID #### [facility] [address] [address] [address] Lavonne Tinoco Cholesterol.total/Ch olesterol in HDL [Mass ratio] 5.6 {ratio} Normal [facility] Comment on above: Performed By: #### C MP, TSH, LIPID #### [facility] [address] [address] [address] Lavonne Tinoco HDL NORMAL > or = 60 mg/dl - LO W CARDIOVASCULAR RISK <40 mg/dl - HIGH CARDIOVASCULAR RISK Normal [facility] Comment on above: Performed By: #### C MP, TSH, LIPID #### [facility] [address] [address] [address] Lavonne Tinoco LDL CALC NORMAL SEE BELOW Normal [facility] Comment on above: Result Comment: <100 mg/dl OPTIMAL 100 - 129 mg/dl NEAR OR ABOVE OPTIMAL 130 - 159 mg/dl BORDERLINE HIGH 160 - 189 mg/dl HIGH >190 mg/dl VERY HIGH Performed By: #### C MP, TSH, LIPID #### [facility] [address] [address] [address] Lavonne Tinoco Triglyceride [Mass/Vol] 131 mg/dL Normal <=150 [facility] Comment on above: Performed By: #### C MP, TSH, LIPID #### [facility] [address] [place] [address] Dr. Lavonne Tinoco VLDL CALC 26.2 mg/dL Normal [facility] Comment on above: Performed By: #### C MP, TSH, LIPID #### [facility] [address] [address] [address] aLvonne Tinoco PROF 14(COMP METB)on 022 Albumin [Mass/Vol] 3.6 g/dL Normal 3.4-5.0 [facility] Comment on above: Performed By: #### C MP, TSH, LIPID #### [facility] [address] [address] [address] Lavonne Tinoco Albumin/Globulin [Mass ratio] 1.0 {ratio} Normal [facility] Comment on above: Performed By: #### C MP, TSH, LIPID #### [facility] [address] [address] [address] Lavonne Tinoco ALP [Catalytic activity/Vol] 85 U/L Normal 46-116 [facility] Comment on above: Performed By: #### C MP, TSH, LIPID #### [facility] [address] [address] [address] Lavonne Tinoco ALT [Catalytic activity/Vol] 33 U/L Normal 16-63 [facility] Comment on above: Performed By: #### C MP, TSH, LIPID #### [facility] [address] [address] [address] Lavonne Tinoco Anion gap [Moles/Vol] 9.2 mmol/L Normal [facility] Comment on above: Performed By: #### C MP, TSH, LIPID #### [facility] [address] [address] [address] Lavonne Tinoco AST [Catalytic activity/Vol] 17 U/L Normal 15-37 [facility] Comment on above: Performed By: #### C MP, TSH, LIPID #### [facility] [address] [address] [address] Lavonne Tinoco Bilirubin [Mass/Vol] 0.5 mg/dL Normal 0.2-1.0 [facility] Comment on above: Performed By: #### C MP, TSH, LIPID #### [facility] [address] [address] [address] Lavonne Tinoco Calcium [Mass/Vol] 8.5 mg/dL Normal 8.5-10.[address] [facility] Comment on above: Performed By: #### C MP, TSH, LIPID #### [facility] [address] [address] [address] Lavonne Tinoco Chloride [Moles/Vol] 106 mmol/L Normal 98-107 [facility] Comment on above: Performed By: #### C MP, TSH, LIPID #### [facility] [address] [address] [address] Lavonne Tinoco CO2 [Moles/Vol] 31.3 mmol/L Normal 21.0-32.0 [facility] Comment on above: Performed By: #### C MP, TSH, LIPID #### [facility] [address] [address] [address] Lavonne Tinoco Creatinine [Mass/Vol] 1.06 mg/dL Normal 0.70-1.30 [facility] Comment on above: Performed By: #### C MP, TSH, LIPID #### [facility] [address] [place] [address] Dr. Lavonne Tinoco EGFR-AF BAHAMIAN >60 Normal >=60 [facility] Comment on above: Performed By: #### C MP, TSH, LIPID #### [facility] [address] [place] [address] Dr. Lavonne Tinoco EGFR-NON AF BAHAMIAN >60 Normal >=60 [facility] Comment on above: Performed By: #### C MP, TSH, LIPID #### [facility] [address] [place] [address] Dr. Lavonne Tinoco Globulin (S) [Mass/Vol] 3.6 g/dL Normal [facility] Comment on above: Performed By: #### C MP, TSH, LIPID #### [facility] [address] [place] [address] Dr. aLvonne Tinoco Glucose [Mass/Vol] 101 mg/dL Normal 74-106 [facility] Comment on above: Performed By: #### C MP, TSH, LIPID #### [facility] [address] [address] [address] Lavonne Tinoco Potassium [Moles/Vol] 3.5 mmol/L Normal 3.5-5.1 [facility] Comment on above: Performed By: #### C MP, TSH, LIPID #### [facility] [address] [address] [address] Lavonne Tinoco Protein [Mass/Vol] 7.2 g/dL Normal 6.4-8.2 [facility] Comment on above: Performed By: #### C MP, TSH, LIPID #### [facility] [address] [place] [address] Dr. Lavonne Tinoco Sodium [Moles/Vol] 143 mmol/L Normal 136-[address] [facility] Comment on above: Performed By: #### C MP, TSH, LIPID #### [facility] [address] [place] [address] Dr. Lavonne Tinoco Urea nitrogen [Mass/Vol] 21.0 mg/dL Critically high 7.0-18.0 [facility] Comment on above: Performed By: #### C MP, TSH, LIPID #### [facility] [address] [place] [address] Dr. Lavonne Tinoco Urea nitrogen/Creatinine [Mass ratio] 19.8 mg/mg Normal [facility] Comment on above: Performed By: #### C MP, TSH, LIPID #### [facility] [address] [place] [address] Dr. Lavonne Tinoco TSHon 07-19-2022 TSH 1.947 uIU/mL Normal 0.358-3.740 [facility] Comment on above: Performed By: #### C MP, TSH, LIPID #### [facility] [address] [place] [address] Dr. Lavonne Tinoco UA RANDOM W/MICROSCOPICon BACTERIA NONE SEEN Normal NONE SEEN [facility] Comment on above: Performed By: #### U AMIC #### [facility] [address] [place] [address] Dr. Lavonne Tinoco Bilirubin Ql (U) Negative Normal NEGATIVE [facility] Comment on above: Performed By: #### U AMIC #### [facility] [address] [place] [address] Dr. Lavonne Tinoco CAST NONE SEEN Normal NONE SEEN [facility] Comment on above: Performed By: #### U AMIC #### [facility] [address] [address] [address] Lavonne Tinoco Clarity (U) CLEAR Normal CLEAR [facility] Comment on above: Performed By: #### U AMIC #### [facility] [address] [address] [address] Lavonne Tinoco Color (U) YELLOW Normal YELLOW [facility] Comment on above: Performed By: #### U AMIC #### [facility] [address] [address] [address] Lavonne Tinoco Crystals LM Nom (Urine sed) NONE SEEN Normal NONE SEEN [facility] Comment on above: Performed By: #### U AMIC #### [facility] [address] [place] [address] Dr. Lavonne Tinoco Epithelial cells LM Ql (Urine sed) FEW Abnormal NONE SEEN /RARE [facility] Comment on above: Performed By: #### U AMIC #### [facility] [address] [place] [address] Dr. Lavonne Tinoco Glucose Ql (U) Negative Normal NEGATIVE [facility] Comment on above: Performed By: #### U AMIC #### [facility] [address] [address] [address] Lavonne Tinoco Hemoglobin Ql (U) Negative Normal NEGATIVE [facility] Comment on above: Performed By: #### U AMIC #### [facility] [address] [address] [address] Lavonne Tinoco Ketones Ql (U) Negative Normal NEGATIVE [facility] Comment on above: Performed By: #### U AMIC #### [facility] [address] [address] [address] Lavonne Tinoco LEUKOCYTES TRACE Abnormal NEGATIVE The [facility] Comment on above: Performed By: #### U AMIC #### [facility] [address] [place] [address] Dr. Lavonne Tinoco MUCOUS NONE SEEN Normal NONE SEEN [facility] Comment on above: Performed By: #### U AMIC #### [facility] [address] [address] [address] Lavonne Tinoco Nitrite Ql (U) Negative Normal NEGATIVE [facility] Comment on above: Performed By: #### U AMIC #### [facility] [address] [place] [address] Dr. Lavonne Tinoco pH (U) 6.0 [pH] Normal 5-9 The [facility] Comment on above: Performed By: #### U AMIC #### [facility] [address] [place] [address] Dr. Lavonne Tinoco RBC NONE SEEN Abnormal 0-2 [facility] Comment on above: Performed By: #### U AMIC #### [facility] [address] [place] [address] Dr. Lavonne Tinoco SPEC GRAVITY 1.020 Normal 1.005-<=1.025 [facility] Comment on above: Performed By: #### U AMIC #### [facility] [address] [place] [address] Dr. Lavonne Tinoco UA PROTEIN TRACE Normal NEGATIVE/ TRACE The [facility] Comment on above: Performed By: #### U AMIC #### [facility] [address] [place] [address] Dr. Lavonne Tinoco Urobilinogen Qn (U) 2.0 {Erick'U}/dL Abnormal 0.2 - 1. 0 [facility] Comment on above: Performed By: #### U AMIC #### [facility] [address] [place] [address] Dr. Lavonne Tinoco WBC 0-2 Abnormal NONE SEEN The [facility] Comment on above: Performed By: #### U AMIC #### [facility] [address] [place] [address] Dr. Lavonne Tinoco NM STRESS/REST MULTIon 04-04 NM STRESS/REST MULTI Patient: VANDA GUILLAUME Exam Date: 04/04/2022 : 1965 Gender:M Ordering : ROSI SEXTON CNP Admission #: [id number] Family : Order #: [id number] CLICK HERE TO VIEW EXAM RADIOLOGY REPORT [...] Gan MD on 04/04/2022 at 13:16 Normal [facility] ECHOCARDIO M/2D COMPLETEon 0 02-27-2022 ECHOCARDIO M/2D COMPLETE Patient: VANDA GUILLAUME Exam Date: 02/27/2022 : 1965 Gender:M Ordering : ROSI SEXTON [facility] Admission #: [id number] Family : Order #: [id number] CLICK HERE TO VIEW EXAM ECHOCARDIOGRAM REPORT [...] Area(A4C): 21.60 cm2 Left Atrium Systolic Volume(A2C): 28392 mm3 Left Atrium Systolic Volume(A4C): 19245 mm3 Mitral Valve MV E to A [...] Peck M.D. on 02/28/2022 at 11:52 Normal [facility] ANKLE LEFT [address] [facility] 2 ANKLE LEFT 3 [facility] Department of Radiology [address] [place] [id number] Patient Name: VANDA GUILLAUME : 1965 [...] Weight Bearing?: Y Exam: ANKLE LEFT 3 [facility] ANKLE LEFT 3 [facility] 01/11/2022 9:13 AM CLINICAL INDICATIONS: M25.572 Pain [...] above Electronically signed: Violeta Jay. Transcribed by: [email or web address], User Resident: Electronically Signed by: VIOLETA JAY @ 01/12/2022 03:24 PM Normal The [facility] Comment on above: Order Comment: Views (X-RAY, ANKLE): AP, Lateral, Mortise , Weight Bearing?: Y GLYCOHEMOGLOBIN A1Con 2021 ADA RECOMMENDATION ADA THERAPEUTIC TARGET 6.0 - 7.0 ACTION SUGGESTED > 7.0 Normal [facility] Comment on above: Performed By: #### A 1C #### [facility] [address] [place] [address] Dr. Lavonne Tinoco Glucose [Mass/Vol] 100 mg/dL Normal [facility] Comment on above: Performed By: #### A 1C #### [facility] [address] [place] [address] Dr. Lavonne Tinoco HbA1c (Bld) [Mass fraction] 5.1 % Normal <=6.0 [facility] Comment on above: Performed By: #### A 1C #### [facility] [address] [place] [address] Dr. Lavonne Tinoco MAGNESIUMon 12-25-2021 Magnesium [Mass/Vol] 1.7 mg/dL Normal 1.6-2.3 [facility] Comment on above: Performed By: #### M G, BMP #### [facility] [address] [place] [address] Dr. Lavonne Tinoco PROF CHEM 8 (BAS METB)on Anion gap [Moles/Vol] 12.3 mmol/L Normal [facility] Comment on above: Performed By: #### M Allison, BMP #### [facility] [address] [address] [address] Lavonne Tionco Calcium [Mass/Vol] 8.7 mg/dL Normal 8.5-10.1 [facility] Comment on above: Performed By: #### M G, BMP #### [facility] [address] [address] [address] Lavonne Tinoco Chloride [Moles/Vol] 107 mmol/L Normal 98-107 The [facility] Comment on above: Performed By: #### M G, BMP #### [facility] [address] [address] [address] Lavonne Tinoco CO2 [Moles/Vol] 27.4 mmol/L Normal 22.0-30.0 [facility] Comment on above: Performed By: #### M G, BMP #### [facility] [address] [place] [address] Dr. Lavonne Tinoco Creatinine [Mass/Vol] 1.50 mg/dL Critically high 0.66-1.25 [facility] Comment on above: Performed By: #### M G, BMP #### [facility] [address] [address] [address] Lavonne Tinoco EGFR-AF BAHAMIAN 59 mL/min/1.73m2 Critically low >=60 [facility] Comment on above: Performed By: #### M G, BMP #### [facility] [address] [place] [address] Dr. Lavonne Tinoco EGFR-NON AF BAHAMIAN 49 mL/min/1.73m2 Critically low >=60 The [facility] Comment on above: Performed By: #### M G, BMP #### [facility] [address] [address] [address] Lavonne Tinoco Glucose [Mass/Vol] 103 mg/dL Normal 74-106 [facility] Comment on above: Performed By: #### M G, BMP #### [facility] [address] [address] [address] Lavonne Tinoco Potassium [Moles/Vol] 3.7 mmol/L Normal 3.4-5.0 [facility] Comment on above: Performed By: #### M G, BMP #### [facility] [address] [address] [address] Lavonne Tinoco Sodium [Moles/Vol] 143 mmol/L Normal 137-145 [facility] Comment on above: Performed By: #### M G, BMP #### [facility] [address] [address] [address] Lavonne Tinoco Urea nitrogen [Mass/Vol] 17.0 mg/dL Normal 7.0-18.0 [facility] Comment on above: Performed By: #### M G, BMP #### [facility] [address] [address] [address] Lavonne Tinoco Urea nitrogen/Creatinine [Mass ratio] 11.3 mg/mg Normal [facility] Comment on above: Performed By: #### M G, BMP #### [facility] [address] [address] [address] Lavonne Tinoco Vital Signs Date Time Vital Sign Value Performing Clinician Pricilai marcelly 03-19-2024 09:37-0400 Body height 175.26 cm [facility] 03-19-2024 09:37-0400 Body mass index (BMI) [Ratio] 39.4 kg/m2 [facility] 03-19-2024 09:37-0400 Body temperature 97.8 [degF] [facility] 03-19-2024 09:37-0400 Body weight 121.1 kg [facility] 03-19-2024 09:37-0400 Diastolic blood pressure 98 mm[Hg] [facility] 03-19-2024 09:37-0400 Heart rate 94 /min [facility] 03-19-2024 09:37-0400 Respiratory rate 20 /min [facility] 03-19-2024 09:37-0400 SaO2% (BldA) [Mass fraction] 95 % [facility] 03-19-2024 09:37-0400 Systolic blood pressure 158 mm[Hg] [facility] Encounters Encounter Date Encounter Type Care Provider Facility Start: 04-09-2024 End: 04-09-2024 ambulatory PEPPER AICHHOLZ Not Available Start: 03-19-2024 End: 03-19-2024 ambulatory [facility] Work Phone: Start: 03-19-2024 End: 03-19-2024 Patient encounter procedure [facility] Work Phone: Start: 03-11-2024 End: 03-11-2024 ambulatory PEPPER AICHHOLZ Not Available Start: 03-05-2024 End: 03-05-2024 ambulatory RUPERT PERALTA Not Available Start: 02-26-2024 End: 02-26-2024 ambulatory PAMELA ACEVEDO Not Available Start: 02-26-2024 End: 02-26-2024 ambulatory PEPPER AICHHOLZ Not Available Start: 02-04-2024 End: 02-04-2024 ambulatory ARASELI PATEL Not Available Start: 01-07-2024 End: 01-07-2024 ambulatory AGUSTIN KIKE Not Available Start: 11-26-2023 End: 11-26-2023 ambulatory PEPPER AICHHOLZ Not Available Start: 07-19-2022 End: 07-20-2022 ambulatory [employer] PEPPER AICHHOLZ Facility:[facility] Start: 04-04-2022 End: 04-05-2022 ambulatory [employer] PEPPER AICHHOLZ Facility:[facility] Start: 02-27-2022 End: 02-28-2022 ambulatory [employer] PEPPER AICHHOLZ Facility:[facility] Start: 01-16-2022 End: 01-17-2022 ambulatory [employer] PEPPER AICHHOLZ Facility:[facility] Start: 12-25-2021 End: 12-26-2021 ambulatory [employer] PEPPER AICHHOLZ Facility:[facility] Procedures Date Procedure Procedure Detail Performing Clinician Start: 07-19-2022 PSA screening [employer] PEPPER AICHHOLZ Comment on above: Performed By: #### C MP, TSH, LIPID #### [facility] [address] [address] [address] Lavonne Tinoco Plan of Treatment Date Care Activity Detail Author Renal function 1999 panel - Serum or Plasma [facility] Payers Date Payer Category Payer Unknown [id number] 1965 Unknown [id number] 1965 Unknown [id number] 1965 Unknown [id number] [id number] 1965 Unknown [id number] [id number] 1965 Unknown [id number] [id number] 1965 Unknown [id number] [id number] 1965 Unknown [id number] [id number] 1965 Unknown [id number] [id number] 1965 Unknown [id number] 2.16.840.1.344710.3.579.2.1259 1965 Unknown [id number] 2.16.840.1.523582.3.579.2.1259 1965 Unknown [id number] 2.16.840.1.103831.3.579.2.1259 1965 Unknown [id number] [id number] 1959 Unknown [id number] 1957 Unknown [id number] Unknown [place] [employer] [id number] Unknown [place] [facility] [id number] Social History Date Type Detail Facility Start: 03-19-2024 [facility] Start: 1965 Sex Assigned At Male F [facility] Evaluation note Note Date & Type Note Facility Evaluation note Diagnosis Onset Date GERD (gastroesophageal reflux disease) acute Hypomagnesemia acute Primary hypertension acute [facility] Work Phone: Summary Purpose Family History No Family History Records FoundNo Family History Records FoundNo Family History Records Found Advance Directives No Advanced Directives Records Found Advance Directive Response Recorded Date/ Time Advance Directives No March 18 2:19pm Chief Complaint and Reason for Visit Chief Complaint Hypomagnesemia Reason for Visit GERD (gastroesophage al reflux disease) Hypomagnesemia Primary hypertension Additional Source Comments (unrecognized sect ion and content) No Status Records FoundNo Status Records FoundNo Status Records Found INFORMATION SOURCE (unrecogn ized section and content) DATE CREATED AUTHOR 05/18/[address] [facility] DATE CREATED AUTHOR AUTHOR'S ORGANIZ ATION 07/22/2022 [facility] DATE CREATED AUTHOR AUTHOR'S ORGANIZ ATION 04/12/2024 [facility] [employer] Care Teams (unrecognized sec tion and content) Team Status: Active Member Role Status Dates Pepper Sexton Primary Care Provider Active Team Status: Inactive Member Role Status Dates Tang Haro MD Attending Provider Active Star t: March 19, 2024 End: March 19, 2024 Pepper Sexton Primary Care Provider Active Sta rt: March 19, 2024 End: March 19, 2024 Goals (unrecognized section and content) Goals may be documented in a n alternate section FOR RECORDS PERTAINING TO PATIENTS WHO ARE [...] BE BASED ON THE PRIMARY CLINICAL RECORDS. [facility] [employer] [facility]. provides no warranty or guarantee of the accuracy or completeness of information in this document.
[2024-04-20 14:01] LABS: Magnesium 1.4 mg/dL (1.8-2.4)
== END 2024-04-20 13:00 | disposition home or self-care (01) ==
LOC: LAB 13:00
PROVIDERS: PCP Nurse Practitioner; Visit Provider Nurse Practitioner
DX: E83.42 Hypomagnesemia (principal)
CPT/HCPCS: 36415; 83735

== ENCOUNTER 2024-06-23 12:04 | Outpatient (OUT) | payer BC, SELFPAY ==
--- OUTSIDE RECORDS SUMMARY | 2024-06-23 12:10 | XMS_ITS | CCD ---
Author Organization [facility] Care Team Providers Care Mass Spectroscopist Name Role Phone AICHHOLZ, ELECTRICAL INSTRUMENT TECHNICIAN PEPPER Primary Care Unavailable AICHHOLZ, ELECTRICAL INSTRUMENT TECHNICIAN PEPPER Consulting Unavailable AICHHOLZ, ELECTRICAL INSTRUMENT TECHNICIAN PEPPER Attending Unavailable AICHHOLZ, ELECTRICAL INSTRUMENT TECHNICIAN PEPPER Admitting Unavailable AICHHOLZ, ELECTRICAL INSTRUMENT TECHNICIAN PEPPER Consulting Unavailable AICHHOLZ, ELECTRICAL INSTRUMENT TECHNICIAN PEPPER Attending Unavailable AICHHOLZ, ELECTRICAL INSTRUMENT TECHNICIAN PEPPER Admitting Unavailable AICHHOLZ, ELECTRICAL INSTRUMENT TECHNICIAN PEPPER Primary Care Unavailable AICHHOLZ, ELECTRICAL INSTRUMENT TECHNICIAN PEPPER Primary Care Unavailable DR CRIS GAN V Consulting Unavailable AICHHOLZ, ELECTRICAL INSTRUMENT TECHNICIAN PEPPER Attending Unavailable AICHHOLZ, ELECTRICAL INSTRUMENT TECHNICIAN PEPPER Admitting Unavailable AICHHOLZ, ELECTRICAL INSTRUMENT TECHNICIAN PEPPER Consulting Unavailable AICHHOLZ, ELECTRICAL INSTRUMENT TECHNICIAN PEPPER Primary Care Unavailable AICHHOLZ, ELECTRICAL INSTRUMENT TECHNICIAN PEPPER Consulting Unavailable AICHHOLZ, ELECTRICAL INSTRUMENT TECHNICIAN PEPPER Attending Unavailable AICHHOLZ, ELECTRICAL INSTRUMENT TECHNICIAN PEPPER Admitting Unavailable AICHHOLZ, ELECTRICAL INSTRUMENT TECHNICIAN PEPPER Primary Care Unavailable AICHHOLZ, ELECTRICAL INSTRUMENT TECHNICIAN PEPPER Consulting Unavailable AICHHOLZ, ELECTRICAL INSTRUMENT TECHNICIAN PEPPER Attending Unavailable AICHHOLZ, ELECTRICAL INSTRUMENT TECHNICIAN PEPPER Admitting Unavailable AICHHOLZ, PEPPER J Referring Unavailable AICHHOLZ, PEPPER J Primary Care Unavailable AICHHOLZ, PEPPER J Referring Unavailable AICHHOLZ, PEPPER J Primary Care Unavailable RUPERT PERALTA Referring Unavailable AICHHOLZ, PEPPER J Primary Care Unavailable RUPERT PERALTA Admitting Unavailable RUPERT PERALTA Attending Unavailable AICHHOLZ, PEPPER J Primary Care Unavailable KENNEDI GRESHAM Attending Unavailable AICHHOLZ, PEPPER J Primary Care Unavailable AICHHOLZ, PEPPER Attending Unavailable AGUSTIN STOKES Attending Unavailable ARASELI PATEL Referring Unavailable ARASELI PATEL Attending Unavailable AICHHOLZPEPPER Attending Unavailable PAMELA ACEVEDO Attending Unavailable ARASELI PATEL Referring Unavailable RUPERT PERALTA Attending Unavailable AICHHOLZ, PEPPER Attending Unavailable AICHHOLZ, PEPPER Attending Unavailable RUPERT PERALTA Attending Unavailable PEPPER SEXTON Attending Unavailable PEPPER SEXTON Referring Unavailable PAMELA ACEVEDO Attending Unavailable Medications Current Medications Medication Drug Class(es) Dates Sig (Normalized) Sig (Original) [id number] 200 actuat albuterol 0.09 mg/actuat metered dose [...] disease without esophagitis] 03-19-2024 Chronic Essential hypertension (4 sources) Essential (primary) hypertension; Translations: [Essential hypertension] Onset: 05-10-2022 03-19-2024 Chronic Heart valve disorders (1 source) [...] unspecified; Translations: [HYPOTHYROIDISM UNSPECIFIED] Onset: 07-19-2022 Chronic Unclassified (1 source) right ulnar neuropathy Onset: 05-27-2024 Past or Other Problems Problem Classification Problem Date Documented Da te Episodic/Chronic Diabetes mellitus without complication (1 source) Hyperglycemia, unspecified; Translations: [HYPERGLYCEMIA UNSPECIFIED] Onset: 12-28-2021 Episodic Fluid and electrolyte disorders (4 sources) Hypokalemia; Translations: [HYPOKALEMIA] Onset: 12-25-2021 Episodic Other lower respiratory disease (4 sources) Dyspnea, unspecified; Translations: [DYSPNEA UNSPECIFIED] Onset: 07-13-2022 Episodic Syncope (5 sources) Syncope and collapse; Translations: [SYNCOPE AND COLLAPSE] Onset: 02-27-2022 Episodic Results Test Name Value Interpretation Reference Range Facility BASIC METABOLIC PANLon 04-27 Anion gap [Moles/Vol] 9 mmol/L Normal 5-15 [facility] Comment on above: Performed By: #### B MP #### [facility] ([id number]) [address], [address] [place] [address] Calcium [Mass/Vol] 9.5 mg/dL Normal 8.5-10.5 [facility] Comment on above: Performed By: #### B MP #### [facility] ([id number]) [address], [address] [place] [address] Chloride [Moles/Vol] 105 mmol/L Normal 98-109 [facility] Comment on above: Performed By: #### B MP #### [facility] ([id number]) [address], [address] [place] [address] CO2 [Moles/Vol] 25 mmol/L Normal 22-32 [facility] Comment on above: Performed By: #### B MP #### [facility] ([id number]) [address], [address] [place] [address] Creatinine [Mass/Vol] 1.60 mg/dL High 0.60-1.30 [facility] Comment on above: Result Comment: METH OD TRACEABLE TO IDMS STANDARD Performed By: #### B MP #### [facility] ([id number]) [address], [address] [place] [address] GFR/1.73 sq M.predicted among non-blacks MDRD (S/P/Bld) [Vol rate/Area] 50 mL/min/{1.73_m2} Low >59 [facility] Comment on above: Result Comment: Reported eGFR is based on the CKD-EPI 2020 equation that does not use a race coefficient. Performed By: #### B MP #### [facility] ([id number]) [address], [address] [place] [address] Glucose [Mass/Vol] 104 mg/dL High 65-99 [facility] Comment on above: Performed By: #### B MP #### [facility] ([id number]) [address], [address] [place] [address] Potassium [Moles/Vol] 4.2 mmol/L Normal 3.5-5.0 [facility] Comment on above: Performed By: #### B MP #### [facility] ([id number]) [address], [address] [place] [address] Sodium [Moles/Vol] 139 mmol/L Normal 134-146 [facility] Comment on above: Performed By: #### B MP #### [facility] ([id number]) [address], [address] [place] [address] Urea nitrogen [Mass/Vol] 31 mg/dL High 5-23 [facility] Comment on above: Performed By: #### B MP #### [facility] ([id number]) [address], [address] [place] [address] CBC AUTO DIFFon 07-19-2022 BASO # 0.1 103/ul Normal 0.0-0.1 [facility] Comment on above: Performed By: #### C BC #### [facility] [address] [place] [address] Dr. Lavonne Tinoco Basophils/100 WBC (Bld) 0.9 % Normal 0.2-2.0 [facility] Comment on above: Performed By: #### C BC #### [facility] [address] [place] [address] Dr. Lavonne Tinoco EO # 0.4 103/ul Normal 0.0-0.7 [facility] Comment on above: Performed By: #### C BC #### [facility] [address] [place] [address] Dr. Lavonne Tinoco Eosinophils/100 WBC (Bld) 4.5 % Normal 0.9-7.0 [facility] Comment on above: Performed By: #### C BC #### [facility] [address] [place] [address] Dr. Lavonne Tinoco Erythrocyte distribution width (RBC) [Ratio] 13.4 % Normal 11.0-15.0 [facility] Comment on above: Performed By: #### C BC #### [facility] [address] [place] [address] Dr. Lavonne Tinoco Hematocrit (Bld) [Volume fraction] 45.0 % Normal 42.0-54.0 [facility] Comment on above: Performed By: #### C BC #### [facility] [address] [place] [address] Dr. Lavonne Tinoco Hemoglobin (Bld) [Mass/Vol] 15.1 g/dL Normal 14.0-18.0 [facility] Comment on above: Performed By: #### C BC #### [facility] [address] [place] [address] Dr. Lavonne Tinoco IG # 0.04 10e3/ul Critically high 0.00-0.03 [facility] Comment on above: Performed By: #### C BC #### [facility] [address] [place] [address] Dr. Lavonne Tinoco IG % 0.4 % Normal 0.0-0.5 [facility] Comment on above: Performed By: #### C BC #### [facility] [address] [place] [address] Dr. Lavonne Tinoco LYMPH # 2.0 103/ul Normal 1.2-3.8 [facility] Comment on above: Performed By: #### C BC #### [facility] [address] [place] [address] Dr. Lavonne Tinoco Lymphocytes/100 WBC (Bld) 21.6 % Normal 20.5-60.0 [facility] Comment on above: Performed By: #### C BC #### [facility] [address] [place] [address] Dr. Lavonne Tinoco MANUAL DIFF REQ NO Normal [facility] Comment on above: Performed By: #### C BC #### [facility] [address] [place] [address] Dr. Lavonne Tinoco MCH (RBC) [Entitic mass] 32.7 pg Normal 25.9-34.0 [facility] Comment on above: Performed By: #### C BC #### [facility] [address] [place] [address] Dr. Lavonne Tinoco MCHC (RBC) [Mass/Vol] 33.6 g/dL Normal 29.9-35.2 [facility] Comment on above: Performed By: #### C BC #### [facility] [address] [place] [address] Dr. Lavonne Tinoco MCV (RBC) [Entitic vol] 97.4 fL Critically high 80.0-94.0 [facility] Comment on above: Performed By: #### C BC #### [facility] [address] [place] [address] Dr. Lavonne Tinoco MONO # 0.6 103/ul Normal 0.3-0.8 [facility] Comment on above: Performed By: #### C BC #### [facility] [address] [place] [address] Dr. Lavonne Tinoco Monocytes/100 WBC (Bld) 6.0 % Normal 1.7-12.0 [facility] Comment on above: Performed By: #### C BC #### [facility] [address] [place] [address] Dr. Lavonne Tinoco NEUT # 6.3 103/ul Normal 1.4-6.5 [facility] Comment on above: Performed By: #### C BC #### [facility] [address] [place] [address] Dr. Lavonne Tinoco Neutrophils/100 WBC (Bld) 66.6 % Normal 43.0-75.0 [facility] Comment on above: Performed By: #### C BC #### [facility] [address] [place] [address] Dr. Lavonne Tinoco Platelet mean volume (Bld) [Entitic vol] 10.7 fL Normal 9.5-13.5 [facility] Comment on above: Performed By: #### C BC #### [facility] [address] [address] [address] Lavonne Tinoco PLT 300 103/ul Normal 150-450 [facility] Comment on above: Performed By: #### C BC #### [facility] [address] [address] [address] Lavonne Tinoco RBC 4.62 106/ul Critically low 4.70-6.10 [facility] Comment on above: Performed By: #### C BC #### [facility] [address] [address] [address] Lavonne Tinoco WBC 9.4 103/ul Normal 4.0-11.0 [facility] Comment on above: Performed By: #### C BC #### [facility] [address] [place] [address] Dr. Lavonne Tinoco FREE T4on 07-19-2022 Free T4 [Mass/Vol] 0.90 ng/dL Normal 0.76-1.46 [facility] Comment on above: Performed By: #### C MP, TSH, LIPID #### [facility] [address] [place] [address] Dr. Lavonne Tinoco LIPID PROFILEon 07-19-2022 CHOL-HDL RATIO NORM SEE BELOW Normal [facility] Comment on above: Result Comment: 3.3 - 4.4 LOW RISK 4.4 - 7.1 AVERAGE RISK 7.1 - 11.0 MODERATE RISK >11.0 HIGH RISK Performed By: #### C MP, TSH, LIPID #### [facility] [address] [place] [address] Dr. Lavonne Tinoco Cholesterol [Mass/Vol] 207 mg/dL Critically high <=200 [facility] Comment on above: Performed By: #### C MP, TSH, LIPID #### [facility] [address] [place] [address] Dr. Lavonne Tinoco Cholesterol in HDL [Mass/Vol] 37 mg/dL Critically low 40-60 [facility] Comment on above: Performed By: #### C MP, TSH, LIPID #### [facility] [address] [address] [address] Lavonne Tinoco Cholesterol in LDL [Mass/Vol] 143.8 mg/dL Normal [facility] Comment on above: Performed By: #### C MP, TSH, LIPID #### [facility] [address] [place] [address] Dr. Lavonne Tinoco Cholesterol.total/Ch olesterol in HDL [Mass ratio] 5.6 {ratio} Normal [facility] Comment on above: Performed By: #### C MP, TSH, LIPID #### [facility] [address] [place] [address] Dr. Lavonne Tinoco HDL NORMAL > or = 60 mg/dl - LO W CARDIOVASCULAR RISK <40 mg/dl - HIGH CARDIOVASCULAR RISK Normal [facility] Comment on above: Performed By: #### C MP, TSH, LIPID #### [facility] [address] [place] [address] Dr. Lavonne Tinoco LDL CALC NORMAL SEE BELOW Normal [facility] Comment on above: Result Comment: <100 mg/dl OPTIMAL 100 - 129 mg/dl NEAR OR ABOVE OPTIMAL 130 - 159 mg/dl BORDERLINE HIGH 160 - 189 mg/dl HIGH >190 mg/dl VERY HIGH Performed By: #### C MP, TSH, LIPID #### [facility] [address] [place] [address] Dr. Lavonne Tinoco Triglyceride [Mass/Vol] 131 mg/dL Normal <=150 [facility] Comment on above: Performed By: #### C MP, TSH, LIPID #### [facility] [address] [place] [address] Dr. Lavonne Tionco VLDL CALC 26.2 mg/dL Normal [facility] Comment on above: Performed By: #### C MP, TSH, LIPID #### [facility] [address] [place] [address] Dr. Lavonne Tinoco PROF 14(COMP METB)on 022 Albumin [Mass/Vol] 3.6 g/dL Normal 3.4-5.0 [facility] Comment on above: Performed By: #### C MP, TSH, LIPID #### [facility] [address] [address] [address] Lavonne Tinoco Albumin/Globulin [Mass ratio] 1.0 {ratio} Normal [facility] Comment on above: Performed By: #### C MP, TSH, LIPID #### [facility] [address] [address] [address] Lavonne Tinoco ALP [Catalytic activity/Vol] 85 U/L Normal 46-116 [facility] Comment on above: Performed By: #### C MP, TSH, LIPID #### [facility] [address] [address] [address] Lavonne Tinoco ALT [Catalytic activity/Vol] 33 U/L Normal 16-63 [facility] Comment on above: Performed By: #### C MP, TSH, LIPID #### [facility] [address] [address] [address] Lavonne Tinoco Anion gap [Moles/Vol] 9.2 mmol/L Normal [facility] Comment on above: Performed By: #### C MP, TSH, LIPID #### [facility] [address] [address] [address] Lavonne Tinoco AST [Catalytic activity/Vol] 17 U/L Normal 15-37 [facility] Comment on above: Performed By: #### C MP, TSH, LIPID #### [facility] [address] [address] [address] Lavonne Tinoco Bilirubin [Mass/Vol] 0.5 mg/dL Normal 0.2-1.0 [facility] Comment on above: Performed By: #### C MP, TSH, LIPID #### [facility] [address] [address] [address] Lavonne Tinoco Calcium [Mass/Vol] 8.5 mg/dL Normal 8.5-10.1 [facility] Comment on above: Performed By: #### C MP, TSH, LIPID #### [facility] [address] [address] [address] Lavonne Tinoco Chloride [Moles/Vol] 106 mmol/L Normal 98-107 [facility] Comment on above: Performed By: #### C MP, TSH, LIPID #### [facility] [address] [address] [address] Lavonne Tinoco CO2 [Moles/Vol] 31.3 mmol/L Normal 21.0-32.0 [facility] Comment on above: Performed By: #### C MP, TSH, LIPID #### [facility] [address] [address] [address] Lavonne Tinoco Creatinine [Mass/Vol] 1.06 mg/dL Normal 0.70-1.30 [facility] Comment on above: Performed By: #### C MP, TSH, LIPID #### [facility] [address] [address] [address] Lavonne Tinoco EGFR-AF SAMMARINESE >60 Normal >=60 [facility] Comment on above: Performed By: #### C MP, TSH, LIPID #### [facility] [address] [address] [address] Lavonne Tinoco EGFR-NON AF SAMMARINESE >60 Normal >=60 [facility] Comment on above: Performed By: #### C MP, TSH, LIPID #### [facility] [address] [address] [address] Lavonne Tinoco Globulin (S) [Mass/Vol] 3.6 g/dL Normal [facility] Comment on above: Performed By: #### C MP, TSH, LIPID #### [facility] [address] [address] [address] Lavonne Tinoco Glucose [Mass/Vol] 101 mg/dL Normal 74-106 [facility] Comment on above: Performed By: #### C MP, TSH, LIPID #### [facility] [address] [address] [address] Lavonne Tinoco Potassium [Moles/Vol] 3.5 mmol/L Normal 3.5-5.1 [facility] Comment on above: Performed By: #### C MP, TSH, LIPID #### [facility] [address] [address] [address] Lavonne Tinoco Protein [Mass/Vol] 7.2 g/dL Normal 6.4-8.2 [facility] Comment on above: Performed By: #### C MP, TSH, LIPID #### [facility] [address] [address] [address] Lavonne Tinoco Sodium [Moles/Vol] 143 mmol/L Normal 136-145 [facility] Comment on above: Performed By: #### C MP, TSH, LIPID #### [facility] [address] [place] [address] Dr. Lavonne Tinoco Urea nitrogen [Mass/Vol] 21.0 mg/dL Critically high 7.0-18.0 [facility] Comment on above: Performed By: #### C MP, TSH, LIPID #### [facility] [address] [place] [address] Dr. Lavonne Tinoco Urea nitrogen/Creatinine [Mass ratio] 19.8 mg/mg Normal [facility] Comment on above: Performed By: #### C MP, TSH, LIPID #### [facility] [address] [place] [address] Dr. Lavonne Tinoco TSHon 07-19-2022 TSH 1.947 uIU/mL Normal 0.358-3.740 [facility] Comment on above: Performed By: #### C MP, TSH, LIPID #### [facility] [address] [place] [address] Dr. Lavonne Tinoco UA RANDOM W/MICROSCOPICon BACTERIA NONE SEEN Normal NONE SEEN [facility] Comment on above: Performed By: #### U AMIC #### [facility] [address] [place] [address] Dr. Lavonne Tinoco Bilirubin Ql (U) Negative Normal NEGATIVE [facility] Comment on above: Performed By: #### U AMIC #### [facility] [address] [place] [address] Dr. Lavonne Tinoco CAST NONE SEEN Normal NONE SEEN [facility] Comment on above: Performed By: #### U AMIC #### [facility] [address] [place] [address] Dr. Lavonne Tinoco Clarity (U) CLEAR Normal CLEAR [facility] Comment on above: Performed By: #### U AMIC #### [facility] [address] [address] [address] Lavonne Tinoco Color (U) YELLOW Normal YELLOW [facility] Comment on above: Performed By: #### U AMIC #### [facility] [address] [address] [address] Lavonne Tinoco Crystals LM Nom (Urine sed) NONE SEEN Normal NONE SEEN [facility] Comment on above: Performed By: #### U AMIC #### [facility] [address] [address] [address] Lavonne Tinoco Epithelial cells LM Ql (Urine sed) FEW Abnormal NONE SEEN /RARE [facility] Comment on above: Performed By: #### U AMIC #### [facility] [address] [place] [address] Dr. Lavonne Tinoco Glucose Ql (U) Negative Normal NEGATIVE [facility] Comment on above: Performed By: #### U AMIC #### [facility] [address] [address] [address] Lavonne Tinoco Hemoglobin Ql (U) Negative Normal NEGATIVE [facility] Comment on above: Performed By: #### U AMIC #### [facility] [address] [place] [address] Dr. Lavonne Tinoco Ketones Ql (U) Negative Normal NEGATIVE [facility] Comment on above: Performed By: #### U AMIC #### [facility] [address] [address] [address] Lavonne Tinoco LEUKOCYTES TRACE Abnormal NEGATIVE [facility] Comment on above: Performed By: #### U AMIC #### [facility] [address] [address] [address] Lavonne Tinoco MUCOUS NONE SEEN Normal NONE SEEN [facility] Comment on above: Performed By: #### U AMIC #### [facility] [address] [place] [address] Dr. Lavonne Tinoco Nitrite Ql (U) Negative Normal NEGATIVE [facility] Comment on above: Performed By: #### U AMIC #### [facility] [address] [place] [address] Dr. Lavonne Tinoco pH (U) 6.0 [pH] Normal 5-9 [facility] Comment on above: Performed By: #### U AMIC #### [facility] [address] [address] [address] Lavonne Tinoco RBC NONE SEEN Abnormal 0-2 [facility] Comment on above: Performed By: #### U AMIC #### [facility] [address] [address] [address] Lavonne Tinoco SPEC GRAVITY 1.020 Normal 1.005-<=1.025 [facility] Comment on above: Performed By: #### U AMIC #### [facility] [address] [address] [address] Lavonne Tinoco UA PROTEIN TRACE Normal NEGATIVE/ TRACE [facility] Comment on above: Performed By: #### U AMIC #### [facility] [address] [place] [address] Dr. Lavonne Tinoco Urobilinogen Qn (U) 2.0 {Erick'U}/dL Abnormal 0.2 - 1. 0 [facility] Comment on above: Performed By: #### U AMIC #### [facility] [address] [address] [address] Lavonne Tinoco WBC 0-2 Abnormal NONE SEEN [facility] Comment on above: Performed By: #### U AMIC #### [facility] [address] [place] [address] Dr. Lavonne Tinoco NM STRESS/REST MULTIon 04-04 NM STRESS/REST MULTI Patient: VANDA GUILLAUME Exam Date: 04/04/2022 : 1965 Gender:M Ordering : ROSI SEXTON CNP Admission #: [id number] Family : Order #: [id number] CLICK HERE TO VIEW EXAM RADIOLOGY REPORT [...] Gan MD on 04/04/2022 at 13:16 Normal [facility] ECHOCARDIO M/2D COMPLETEon 0 02-27-2022 ECHOCARDIO M/2D COMPLETE Patient: VANDA GUILLAUME Exam Date: 02/27/2022 : 1965 Gender:M Ordering : ROSI PEPPER SEXTON [facility] Admission #: [id number] Family : Order #: [id number] CLICK HERE TO VIEW EXAM ECHOCARDIOGRAM REPORT [...] Area(A4C): 21.60 cm2 Left Atrium Systolic Volume(A2C): 31590 mm3 Left Atrium Systolic Volume(A4C): 10754 mm3 Mitral Valve MV E to A [...] Peck M.D. on 02/28/2022 at 11:52 Normal [facility] ANKLE LEFT 3 [facility] 2 ANKLE LEFT 3 [facility] Department of Radiology [address] [place] [id number] Patient Name: VANDA GUILLAUME : 1965 [...] Weight Bearing?: Y Exam: ANKLE LEFT 3 [facility] ANKLE LEFT 3 [facility] 01/11/2022 9:13 AM CLINICAL INDICATIONS: M25.572 Pain [...] above Electronically signed: Violeta Jay. Transcribed by: [email or web address], User Resident: Electronically Signed by: VIOLETA JAY @ 01/12/2022 03:24 PM Normal [facility] Comment on above: Order Comment: Views (X-RAY, ANKLE): AP, Lateral, Mortise , Weight Bearing?: Y GLYCOHEMOGLOBIN A1Con 2021 ADA RECOMMENDATION ADA THERAPEUTIC TARGET 6.0 - 7.0 ACTION SUGGESTED > 7.0 Normal [facility] Comment on above: Performed By: #### A 1C #### [facility] [address] [place] [address] Dr. Lavonne Tinoco Glucose [Mass/Vol] 100 mg/dL Normal [facility] Comment on above: Performed By: #### A 1C #### [facility] [address] [place] [address] Dr. Lavonne Tinoco HbA1c (Bld) [Mass fraction] 5.1 % Normal <=6.0 [facility] Comment on above: Performed By: #### A 1C #### [facility] [address] [place] [address] Dr. Lavonne Tinoco MAGNESIUMon 12-25-2021 Magnesium [Mass/Vol] 1.7 mg/dL Normal 1.6-2.3 [facility] Comment on above: Performed By: #### M G, BMP #### [facility] [address] [place] [address] Dr. Lavonne Tinoco PROF CHEM 8 (BAS METB)on Anion gap [Moles/Vol] 12.3 mmol/L Normal [facility] Comment on above: Performed By: #### M Allison, BMP #### [facility] [address] [place] [address] Dr. Lavonne Tinoco Calcium [Mass/Vol] 8.7 mg/dL Normal 8.5-10.1 [facility] Comment on above: Performed By: #### M Allison, BMP #### [facility] [address] [address] [address] Lavonne Tinoco Chloride [Moles/Vol] 107 mmol/L Normal 98-107 [facility] Comment on above: Performed By: #### M G, BMP #### [facility] [address] [address] [address] Lavonne Tinoco CO2 [Moles/Vol] 27.4 mmol/L Normal 22.0-30.0 [facility] Comment on above: Performed By: #### M G, BMP #### [facility] [address] [address] [address] Lavonne Tinoco Creatinine [Mass/Vol] 1.50 mg/dL Critically high 0.66-1.25 [facility] Comment on above: Performed By: #### M G, BMP #### [facility] [address] [place] [address] Dr. Lavonne Tinoco EGFR-AF SAMMARINESE 59 mL/min/1.73m2 Critically low >=60 [facility] Comment on above: Performed By: #### M G, BMP #### [facility] [address] [place] [address] Dr. Lavonne Tinoco EGFR-NON AF SAMMARINESE 49 mL/min/1.73m2 Critically low >=60 [facility] Comment on above: Performed By: #### M G, BMP #### [facility] [address] [place] [address] Dr. Lavonne Tinoco Glucose [Mass/Vol] 103 mg/dL Normal 74-106 [facility] Comment on above: Performed By: #### M G, BMP #### [facility] [address] [place] [address] Dr. Lavonne Tinoco Potassium [Moles/Vol] 3.7 mmol/L Normal 3.4-5.0 [facility] Comment on above: Performed By: #### M G, BMP #### [facility] [address] [place] [address] Dr. Lavonne Tinoco Sodium [Moles/Vol] 143 mmol/L Normal 137-145 [facility] Comment on above: Performed By: #### M G, BMP #### [facility] [address] [place], [place] [address] Dr. Lavonne Tinoco Urea nitrogen [Mass/Vol] 17.0 mg/dL Normal 7.0-18.0 [facility] Comment on above: Performed By: #### M G, BMP #### [facility] [address] [place], [place] [address] Dr. Lavonne Tinoco Urea nitrogen/Creatinine [Mass ratio] 11.3 mg/mg Normal [facility] Comment on above: Performed By: #### M G, BMP #### [facility] [address] [place], [place] [address] Dr. Lavonne Tinoco Vital Signs Date Time Vital Sign Value Performing Clinician Pricilai lity 03-19-2024 09:37-0400 Body height 175.26 cm [facility] 03-19-2024 09:37-0400 Body mass index (BMI) [Ratio] 39.4 kg/m2 [facility] 03-19-2024 09:37-0400 Body temperature 97.8 [degF] [facility] 03-19-2024 09:37-0400 Body weight 121.1 kg [facility] 03-19-2024 09:37-0400 Diastolic blood pressure 98 mm[Hg] [facility] 03-19-2024 09:37-0400 Heart rate 94 /min [facility] 03-19-2024 09:37-0400 Respiratory rate 20 /min [facility] 03-19-2024 09:37-0400 SaO2% (BldA) [Mass fraction] 95 % [facility] 03-19-2024 09:37-0400 Systolic blood pressure 158 mm[Hg] [facility] Encounters Encounter Date Encounter Type Care Provider Facility Start: 06-03-2024 End: 06-03-2024 ambulatory PAMELA Langston APLING Not Available Start: 05-27-2024 End: 05-27-2024 Evaluation and management of inpatient KENNEDI GRESHAM [facility] Start: 05-27-2024 End: 05-27-2024 Evaluation and management of inpatient RUPERT A [facility] Start: 05-04-2024 End: 05-04-2024 ambulatory PEPPER AICHHOLZ Not Available Start: 04-30-2024 End: 04-30-2024 ambulatory RUPERT PERALTA Not Available Start: 04-27-2024 End: 04-27-2024 ambulatory RUPERT Lyn [facility] Start: 04-27-2024 Encounter for other preprocedural examination PEPPER AICHHOLZ [facility] Start: 04-09-2024 End: 04-09-2024 ambulatory PEPPER AICHHOLZ Not Available Start: 03-19-2024 End: 03-19-2024 ambulatory [facility] Work Phone: Start: 03-19-2024 End: 03-19-2024 Patient encounter procedure [facility] Work Phone: Start: 03-11-2024 End: 03-11-2024 ambulatory PEPPER AICHHOLZ Not Available Start: 03-05-2024 End: 03-05-2024 ambulatory RUPERT PERALTA Not Available Start: 02-26-2024 End: 02-26-2024 ambulatory PAMELA ACEVEDO Not Available Start: 02-26-2024 End: 02-26-2024 ambulatory PEPPER AICHHOLZ Not Available Start: 02-04-2024 End: 02-04-2024 ambulatory ARASELI CASTROE Not Available Start: 01-07-2024 End: 01-07-2024 ambulatory AGUSTIN STOKES Not Available Start: 11-26-2023 End: 11-26-2023 ambulatory PEPPER AICHHOLZ Not Available Start: 07-19-2022 End: 07-20-2022 ambulatory ELECTRICAL INSTRUMENT TECHNICIAN PEPPER AICHHOLZ Facility:[facility] Start: 04-04-2022 End: 04-05-2022 ambulatory ELECTRICAL INSTRUMENT TECHNICIAN PEPPER AICHHOLZ Facility:[facility] Start: 02-27-2022 End: 02-28-2022 ambulatory ELECTRICAL INSTRUMENT TECHNICIAN PEPPER AICHHOLZ Facility:[facility] Start: 01-16-2022 End: 01-17-2022 ambulatory ELECTRICAL INSTRUMENT TECHNICIAN PEPPER AICHHOLZ Facility:[facility] Start: 12-25-2021 End: 12-26-2021 ambulatory ROSI SEXTON Facility:[facility] Procedures Date Procedure Procedure Detail Performing Clinician Start: 07-19-2022 PSA screening ROSI SEXTON Comment on above: Performed By: #### C MP, TSH, LIPID #### [facility] [address] [place], [place] [address] Dr. Lavonne Tinoco Plan of Treatment Date Care Activity Detail Author Renal function 1999 panel - Serum or Plasma [facility] Payers Date Payer Category Payer Unknown [id number] 1967 Unknown [id number] 2.16.840.1.860347.3.579.2.593 1967 Unknown [id number] 2.16.840.1.548072.3.579.2.593 1967 Unknown [id number] 2..840.1.385278.3.579.2.593 1967 Unknown [id number] 2.16.840.1.167224.3.579.2.593 1967 Unknown [id number] 2.16.840.1.016902.3.579.2.1286 1967 Unknown [id number] 2.16.840.1.381422.3.579.2.1286 1967 Unknown [id number] 2.16.840.1.389410.3.579.2.1286 1967 Unknown [id number] 2.16.840.1.220013.3.579.2.1286 1967 Unknown [id number] 2.16.840.1.077314.3.579.2.1286 1967 Unknown [id number] 2.16.840.1.755462.3.579.2.1286 1967 Unknown [id number] 2.16.840.1.681589.3.579.2.1259 1967 Unknown [id number] 2.16.840.1.508214.3.579.2.1258 1967 Unknown [id number] 2.16.840.1.538944.3.579.2.1258 1967 Unknown [id number] 2.16.840.1.945385.3.579.2.1258 1967 Unknown [id number] 2.16.840.1.231629.3.579.2.1258 1967 Unknown [id number] 2.16.840.1.629252.3.579.2.1258 1967 Unknown [id number] 2.16.840.1.319562.3.579.2.1258 1967 Unknown [id number] 2.16.840.1.278288.3.579.2.1258 1967 Unknown [id number] 2.16.840.1.354155.3.579.2.1258 1967 Unknown [id number] 2.16.840.1.949529.3.579.2.1258 1967 Unknown [id number] 2.16.840.1.769616.3.579.2.9 1959 Unknown [id number] 1959 Unknown [id number] Unknown [place] BC/BS [id number] Unknown [facility] [id number] Social History Date Type Detail Facility Start: 03-19-[facility]24 [facility] Start: 1965 Sex Assigned At Male [facility] Evaluation note Note Date & Type Note Facility Evaluation note Diagnosis Onset Date GERD (gastroesophageal reflux disease) acute Hypomagnesemia acute Primary hypertension acute [facility] Work Phone: Summary Purpose Family History No [...] Records FoundNo Status Records FoundNo Status Records FoundNo Status Records Found INFORMATION SOURCE (unrecogn ized section and content) DATE CREATED AUTHOR 05/18/2022 [facility] DATE CREATED AUTHOR AUTHOR'S ORGANIZ ATION 07/22/2022 [facility] DATE CREATED AUTHOR AUTHOR'S ORGANIZ ATION 05/28/2024 [facility] DATE CREATED AUTHOR AUTHOR'S ORGANIZ ATION 06/05/2024 [facility] EPIC Care Teams (unrecognized sec tion [...] BE BASED ON THE PRIMARY CLINICAL RECORDS. [facility]. provides no warranty or guarantee of the accuracy or completeness of information in this document.
[2024-06-23 12:56] LABS: Albumin Level 3.3 g/dL (3.4-5.0); Anion Gap 12.6; BUN Creatinine Ratio 17.4; Calcium 8.7 mg/dL (8.5-10.1); Carbon Dioxide 26.1 mmol/L (21.0-32.0); Chloride 104 mmol/L (98-107); Estimated GFR (African America 50 (>=60); Estimated GFR (Non-African Ame 41 (>=60); Glucose 114 mg/dL (74-106); Magnesium 1.5 mg/dL (1.8-2.4); Phosphorus 3.2 mg/dL (2.6-4.7); Potassium 4.7 mmol/L (3.5-5.1); Sodium 138 mmol/L (136-145)
[2024-06-23 18:42] LABS: Creatinine Urine Random 78.13 mg/dL (20.00-300.00); Protein Creatinine Ratio Urine 0.16; Total Protein Urine Random 12.6 mg/dL (<=11.9)
== END 2024-06-23 12:05 | disposition home or self-care (01) ==
LOC: LAB 12:04
PROVIDERS: PCP Nurse Practitioner; Visit Provider Internal Medicine Nephrology
DX: K21.9 Gastro-esophageal reflux disease without esophagitis (principal); I10 Essential (primary) hypertension; E83.42 Hypomagnesemia
CPT/HCPCS: 36415; 80069; 82570; 83735; 84156; 84550

== ENCOUNTER 2024-09-28 08:38 | Outpatient (OUT) | payer BC, SELFPAY ==
[2024-09-28 09:11] LABS: Anion Gap 14.1; BUN Creatinine Ratio 10.6; Calcium 8.3 mg/dL (8.5-10.1); Carbon Dioxide 28.4 mmol/L (21.0-32.0); Chloride 104 mmol/L (98-107); Estimated GFR (African America 54 (>=60 mL/min/1.73m^2); Estimated GFR (Non-African Ame 45 (>=60 mL/min/1.73m^2); Glucose 137 mg/dL (74-106); Potassium 3.5 mmol/L (3.5-5.1); Sodium 143 mmol/L (136-145)
[2024-09-28 10:34] LABS: Magnesium 0.8 mg/dL (1.8-2.4)
== END 2024-09-28 08:39 | disposition home or self-care (01) ==
LOC: LAB 08:40
PROVIDERS: PCP Nurse Practitioner; Visit Provider Nurse Practitioner
DX: E83.42 Hypomagnesemia (principal)
CPT/HCPCS: 36415; 80048; 83735

== ENCOUNTER 2024-10-07 10:01 | Outpatient (OUT) | payer BC, SELFPAY ==
[2024-10-07 10:41] LABS: Thyroid Stimulating Hormone 2.054 uIU/mL (0.358-3.740)
[2024-10-07 10:46] LABS: Magnesium 0.8 mg/dL (1.8-2.4)
[2024-10-07 11:18] LABS: Free T4 0.74 ng/dL (0.76-1.46)
== END 2024-10-07 10:02 | disposition home or self-care (01) ==
LOC: LAB 10:02
PROVIDERS: PCP Nurse Practitioner; Visit Provider Nurse Practitioner
DX: E03.9 Hypothyroidism, unspecified (principal); E83.42 Hypomagnesemia
CPT/HCPCS: 36415; 83735; 84436; 84439; 84443

== ENCOUNTER 2024-11-05 09:21 | Outpatient (OUT) | payer BC, SELFPAY ==
--- OUTSIDE RECORDS SUMMARY | 2024-11-05 09:45 | XMS_ITS | CCD ---
Author Organization [facility] Care Team Providers Care Custom Bike Builder Name Role Phone AICHHOLZ, CUTTING AND CREASING PRESS OPERATOR PEPPER Primary Care Unavailable AICHHOLZ, CUTTING AND CREASING PRESS OPERATOR PEPPER Consulting Unavailable AICHHOLZ, CUTTING AND CREASING PRESS OPERATOR PEPPER Attending Unavailable AICHHOLZ, CUTTING AND CREASING PRESS OPERATOR PEPPER Admitting Unavailable AICHHOLZ, CUTTING AND CREASING PRESS OPERATOR PEPPER Consulting Unavailable AICHHOLZ, CUTTING AND CREASING PRESS OPERATOR PEPPER Attending Unavailable AICHHOLZ, CUTTING AND CREASING PRESS OPERATOR PEPPER Admitting Unavailable AICHHOLZ, CUTTING AND CREASING PRESS OPERATOR PEPPER Primary Care Unavailable AICHHOLZ, CUTTING AND CREASING PRESS OPERATOR PEPPER Primary Care Unavailable DR CRIS GAN V Consulting Unavailable AICHHOLZ, CUTTING AND CREASING PRESS OPERATOR PEPPER Attending Unavailable AICHHOLZ, CUTTING AND CREASING PRESS OPERATOR PEPPER Admitting Unavailable AICHHOLZ, CUTTING AND CREASING PRESS OPERATOR PEPPER Consulting Unavailable AICHHOLZ, CUTTING AND CREASING PRESS OPERATOR PEPPER Primary Care Unavailable AICHHOLZ, CUTTING AND CREASING PRESS OPERATOR PEPPER Consulting Unavailable AICHHOLZ, CUTTING AND CREASING PRESS OPERATOR PEPPER Attending Unavailable AICHHOLZ, CUTTING AND CREASING PRESS OPERATOR PEPPER Admitting Unavailable AICHHOLZ, CUTTING AND CREASING PRESS OPERATOR PEPPER Primary Care Unavailable AICHHOLZ, CUTTING AND CREASING PRESS OPERATOR PEPPER Consulting Unavailable AICHHOLZ, CUTTING AND CREASING PRESS OPERATOR PEPPER Attending Unavailable AICHHOLZ, CUTTING AND CREASING PRESS OPERATOR PEPPER Admitting Unavailable AICHHOLZ, PEPPER J Referring Unavailable AICHHOLZ, PEPPER J Primary Care Unavailable AICHHOLZ, PEPPER J Referring Unavailable AICHHOLZ, PEPPER J Primary Care Unavailable RUPERT BO Referring Unavailable AICHHOLZ, PEPPER J Primary Care Unavailable RUPERT BO Admitting Unavailable RUPERT BO Attending Unavailable AICHHOLZ, PEPPER J Primary Care Unavailable KENNEDI GRESHAM Attending Unavailable AICHHOLZ, PEPPER J Primary Care Unavailable Ashish CARTAGENA, Anastacio Primary Care Provider [phone] Aichholz CASTING AND LOCKER ROOM SERVICER, Pepper Unavailable Aichholz CASTING AND LOCKER ROOM SERVICER, Pepper Unavailable Aichholz, Pepper J Primary Care Provider MD James Elaine Attending Provider [phone] Pepper Sexton Primary Care Provider [phone] James Elaine MD Attending Provider PEPPER SEXTON Attending Unavailable AGUSTIN STOKES Attending Unavailable KARUNA CARRANZA Referring Unavailable KARUNA CARRANZA Attending Unavailable CARLIE, PEPPER Attending Unavailable APLBLANK SMITH Attending Unavailable JORGE, KAURNA Referring Unavailable FABIAN, RUPERT Lyn Attending Unavailable CARLIE, PEPPER Attending Unavailable CARLIE, PEPPER Attending Unavailable FABIAN, RUPERT Lyn Attending Unavailable CARLIE, PEPPER Attending Unavailable CARLIE, PEPPER Referring Unavailable KRISTINA, BLANK Langston Attending Unavailable FABIAN, RUPERT Lyn Attending Unavailable JAVIERHJEMAL, PEPPER Attending Unavailable CARLIE, PEPPER Attending Unavailable Pepper Sexton Primary Care Unavailable Asaad, Imad Attending Unavailable Asaad, Imad Admitting Unavailable Asaad, Imad Admitting Unavailable Pepper Sexton Primary Care Unavailable Asaad, Imad Attending Unavailable Medications Current Medications Medication Drug Class(es) Dates Sig (Normalized) Sig (Original) acetaminophen 325 mg / HYDROcodone bitartrate 5 mg oral tablet (1 source) Opioid Agonist Start: 05-26-2024 End: 05-29-2024 take 1 tablet by mouth every six hours for pain HYDROcodone-aceta minophen ([place]) 5-325 MG tablet Indications: Post-operative pain Take 1 tablet by mouth every 6 (six) hours if needed for severe pain for up to 3 days 12 tablet 05/26/2024 05/29/2024 Active [id number] 200 actuat albuterol 0.09 mg/actuat metered dose inhaler (20 sources) beta2-Adrenergic Agonist Start: 03-19-2024 take 1 puff(s) by inhalation every six hours as needed for wheezing Albuterol Sulfate 90 mcg/actuation HFA aerosol inhaler Active 2 PUFF INHALATION Every 6 hours as needed for shortness of breath or wheezing March 18, 2024 11:00pm Start: 03-06-2024 take 2 puff(s) by in halation every six hours for wheezing albuterol HFA (Ventolin HFA) 90 mcg/act inhaler Indications: Chronic Obstructive Pulmonary Disease Inhale 2 puffs every 6 (six) hours if needed for wheezing or shortness of breath 18 g 1 03/06/2024 Active amLODIPine 10 mg oral tablet (20 sources) Dihydropyridine Calcium Channel Linnea Start: 03-18-2024 End: 12-05-2024 take 1 tablet by mouth once daily amLODIPine (Norvasc) 10 MG tablet Indications: Essential hypertension, benign (CMS/HCC) Take 1 tablet (10 mg) by mouth Daily 90 tablet 09/06/2024 12/05/2024 Active 60 actuat budesonide 0.16 mg/actuat / formoterol fumarate 0.0045 mg/actuat metered dose inhaler (20 sources) Corticosteroid, beta2-Adrenergic Agonist Start: 06-23-2024 take 1 puff(s) by inhalation twice daily as needed for wheezing Budesonide-Formote rol 160-4.5 mcg/actuation HFA aerosol inhaler Active 2 PUFF INHALATION Twice daily as needed for shortness of breath or wheezing June 22, 2024 11:00pm Start: 05-04-2024 End: 11-06-2024 take 2 puff(s) by inhalation in the morning budesonide-formoterol (Symbicort) 160-4.5 MCG/ACT inhaler Indications: Chronic bronchitis, unspecified chronic bronchitis type (CMS/HCC) Inhale 2 puffs in the morning and 2 puffs before bedtime. Rinse mouth with water after use to reduce aftertaste and incidence of candidiasis. Do not swallow.. 10.2 g 5 10/07/2024 11/06/2024 Active Start: 03-19-2024 End: 06-23-2024 take 1 puff(s) by inhalation twice daily as needed Budesonide-Formoterol (Symbicort) 80-4.5 mcg/actuation HFA aerosol inhaler Discontinued 2 PUFF INHALATION Twice daily as needed March 19, 2024 8:38am June 23, 2024 9:39am cloNIDine hydrochloride 0.1 mg oral tablet (5 sources) Central alpha-2 Adrenergic Agonist Start: 03-19-2024 take 1 tablet by mouth twice daily Clonidine Hcl 0.1 mg tablet Active 0.1 MG PO Twice daily 60 March 18, 2024 11:00pm doxepin hydrochloride 10 mg/ml oral solution (20 sources) Tricyclic Antidepressant Start: 09-15-2024 End: 12-14-2024 take 10 mg by mouth at bedtime doxepin (SINEquan) 10 MG/ML solution Indications: Fibromyalgia Take 10 mL (100 mg) by mouth at bedtime 900 mL 1 09/15/2024 12/14/2024 Active Start: 03-19-2024 take [address] [facility] once daily at bedtime Doxepin 100 mg capsule Active 100 MG PO Daily at bedtime March 18, 2024 11:00pm Start: 03-11-2024 End: 06-09-2024 take 10 mg by mouth at bedtime doxepin (SINEquan) 10 M G/ML solution Indications: Fibromyalgia Take 10 mL (100 mg) by mouth at bedtime 900 mL 1 03/11/2024 Active gabapentin 600 mg oral tablet (20 sources) Anti-epileptic Agent Start: 03-19-2024 End: 02-02-2025 take 1 tablet by mouth in the morning gabapentin (Neurontin) 600 MG tablet Indications: Restless legs syndrome Take 1 tablet (600 mg) by mouth in the morning and 1 tablet (600 mg) before bedtime. 180 tablet 1 11/04/2024 02/02/2025 Active ibuprofen 200 mg oral tablet (15 sources) Nonsteroidal Anti-inflammatory Drug End: 07-06-2024 take 1 tablet by mouth every six hours as needed ibuprofen 200 MG tablet Take 200 mg by mouth every 6 (six) hours if needed 07/06/2024 Discontinued (Therapy completed) levothyroxine sodium 0.112 mg oral tablet (20 sources) l-Thyroxine Start: 10-08-2024 End: 01-06-2025 take 1 tablet by mouth before mealtime levothyroxine (Synthroid, Levoxyl) 112 MCG tablet Indications: Hypothyroidism, unspecified type (CMS/HCC) Take 1 tablet (112 mcg) by mouth in the morning. Take before meals. 90 tablet 10/08/2024 01/06/2025 Active Start: 03-18-2024 End: 12-05-2024 take 1 tablet by mouth before mealtime levothyroxine (Synthroid, Levoxyl) 100 MCG tablet Indications: Hypothyroidism, unspecified (CMS/HCC) Take 1 tablet (100 mcg) by mouth in the morning. Take before meals. 90 tablet 09/06/2024 10/08/2024 Discontinued magnesium oxide 500 mg oral tablet (20 sources) Start: 09-28-2024 End: 02-02-2025 take 1 tablet by mouth in the morning, then take 1 tablet by mouth in the evening, then take 1 tablet by mouth at bedtime magnesium oxide 500 MG tablet Indications: Hypomagnesemia Take 1 tablet (500 mg) by mouth in the morning and 1 tablet (500 mg) in the evening and 1 tablet (500 mg) before bedtime. 270 tablet 1 11/04/2024 02/02/2025 Active Start: 03-19-2024 End: 10-14-2024 take 1 tablet by mouth three times daily Magnesium Oxide 400 mg (241.3 mg magnesium) tablet Active 400 MG PO Three times daily March 19, 2024 8:39am Start: 03-19-2024 End: 03-19-2024 take 1 tablet by mouth twice daily Magnesium Oxide 400 mg (241.3 mg magnesium) tablet Discontinued 400 MG PO Twice daily March 18, 2024 11:00pm March 19, 2024 8:41am meloxicam 15 mg oral tablet (20 sources) Nonsteroidal Anti-inflammatory Drug Start: 06-18-2024 take 1 tablet by mouth once daily meloxicam (Mobic) 15 MG tablet Indications: Degenerative disc disease, cervical TAKE 1 TABLET BY MOUTH EVERY DAY 90 tablet 4 06/18/2024 Active Start: 12-21-2023 End: 09-22-2024 take 1 tablet by mouth once daily Meloxicam 15 mg tablet Discontinued 15 MG PO Daily March 18, 2024 11:00pm September 22, 2024 7:17am montelukast 10 mg oral tablet (20 sources) Leukotriene Receptor Antagonist Start: 03-18-2024 End: 12-05-2024 take 1 tablet by mouth at bedtime montelukast (Singulair) 10 MG tablet Indications: Atopic dermatitis, unspecified type Take 1 tablet (10 mg) by mouth at bedtime 90 tablet 1 09/06/2024 12/05/2024 Active Naltrexone (10 sources) Opioid Antagonist Start: 03-19-2024 take 1 capsule by mouth once daily Naltrexone 4.5 mg capsule Active 4.5 MG PO .QD March 19, 2024 8:40am Start: 03-19-2024 take 4.5 mg by mouth once daily Naltrexone Active 4.5 MG PO .QD March 19, 2024 9:40am Start: 03-19-2024 End: 03-19-2024 Naltrexone 4.5 mg capsule Discontinued MG PO March 18, 2024 11:00pm March 19, 2024 8:41am Start: 03-19-2024 End: 03-19-2024 Naltrexone Discontinued MG P O March 19, 2024 12:00am March 19, 2024 9:41am nebivolol 10 mg oral tablet (20 sources) Start: 03-18-2024 End: 12-05-2024 take 1 tablet by mouth once daily nebivolol (Bystolic) 10 MG tablet Indications: Essential hypertension, benign (CMS/HCC) Take 1 tablet (10 mg) by mouth Daily 90 tablet 09/06/2024 12/05/2024 Active omeprazole 40 mg delayed release oral capsule (20 sources) Proton Pump Inhibitor Start: 07-09-2024 End: 12-05-2024 take 1 capsule by mouth before mealtime omeprazole (PriLOSEC) [address] capsule Indications: Gastroesophageal reflux disease, unspecified whether esophagitis present Take 1 capsule (40 mg) by mouth in the morning. Take before meals. Do not crush or chew.. 90 capsule 09/06/2024 12/05/2024 Active Start: 06-23-2024 End: 06-24-2024 Omeprazole 40 mg capsule,del ayed release(DR/EC) Discontinued 40 MG PO Every 72 hours June 22, 2024 11:00pm June 24, 2024 7:41am Start: 03-19-2024 End: 07-09-2024 take 1 capsule by mouth once daily Omeprazole 40 mg capsule,delayed release(DR/EC) Discontinued 40 MG PO Daily June 24, 2024 7:41am July 09, 2024 12:23pm pravastatin sodium 20 mg oral tablet (20 sources) HMG-CoA Reductase Inhibitor take 1 tablet by mouth once daily pravastatin (Pravachol) 20 MG tablet Take 1 tablet by mouth Daily Active spironolactone 50 mg oral tablet (20 sources) Aldosterone Antagonist take 1 tablet by mouth once daily spironolactone (Aldactone) 50 MG tablet Take 50 mg by mouth Daily Active valsartan 320 mg oral tablet (20 sources) Angiotensin 2 Receptor Linnea Start: 02-26-20 End: 01-06-20 take 1 tablet by mouth once daily valsartan (Diovan) 320 MG tablet Indications: Essential hypertension, benign (CMS/HCC) Take 1 tablet (320 mg) by mouth Daily 90 tablet 1 10/07/2024 01/05/2025 Active Completed/Discontinued Medications Medication Drug Class(es) Dates Sig (Normalized) Sig (Original) famotidine 20 mg oral tablet (20 sources) Histamine-2 Receptor Antagonist Start: 05-04-2024 End: 09-22-2024 take 2 tablets by mouth twice daily in the morning, then take 1 tablet by mouth twice daily in the evening Famotidine (Pepcid) 20 mg tablet Discontinued 0 PO Twice daily June 23, 2024 9:37am September 22, 2024 7:16am 40mg in am, 20 mg in pm orally twice daily; Start: 03-19-2024 End: 06-23-2024 take 1 tablet by mouth twice daily Famotidine (Pepcid) 20 mg tablet Discontinued 20 MG PO Twice daily 180 March 23, 2024 4:47pm June 23, 2024 9:40am Problems Active Problems Problem Classification Problem Date Documented Date Episodic/Chronic Allergic reactions (20 sources) Atopic dermatitis; Translations: [Atopic dermatitis, unspecified] Onset: 11-26-2023 11-26-2023 Chronic Chronic obstructive pulmonary disease and bronchiectasis (20 sources) Chronic bronchitis; Translations: [Unspecified chronic bronchitis] Onset: 03-06-2024 Resolved: 10-07-2024 03-06-2024 Chronic Disorders of lipid metabolism (20 sources) Hyperlipidemia; Translations: [Hyperlipidemia, unspecified] Onset: 07-18-2023 08-19-2023 Chronic Esophageal disorders (20 sources) Gastroesophageal reflux disease; Translations: [Gastro-esophageal reflux disease without esophagitis] Onset: 08-19-2023 Resolved: 10-07-2024 03-19-2024 Chronic Essential hypertension (20 sources) Essential (primary) hypertension; Translations: [Essential hypertension] Onset: 05-10-2022 03-19-2024 Chronic Heart valve disorders (1 source) Nonrheumatic pulmonary valve insufficiency; 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 INSUFF] Onset: 03-02-2022 Chronic Osteoarthritis (20 sources) Arthritis; Translations: [Unspecified osteoarthritis, unspecified site] Onset: 08-19-2023 08-19-2023 Chronic Other aftercare (1 source) Encounter for follow-up examination after completed treatment for conditions other than malignant neoplasm; Translations: [Encounter for follow-up examination after completed treatment for conditions other than malignant neoplasm] Onset: 10-06-2024 Episodic Other and ill-defined heart disease (20 sources) Left ventricular cardiac dysfunction; Translations: [Heart disease, unspecified] Onset: 05-10-2022 11-26-2023 Chronic Other hereditary and degenerative nervous system conditions (20 sources) Restless legs; Translations: [Restless legs syndrome] Onset: 08-19-2023 08-19-2023 Chronic Other inflammatory condition of skin (20 sources) Psoriasis; Translations: [Psoriasis, unspecified] Onset: 11-26-2023 11-26-2023 Chronic Other nervous system disorders (20 sources) Compression injury of nerve; 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, unspecified] Onset: 11-26-2023 11-26-2023 Chronic Other nervous system disorders (20 sources) Bilateral carpal tunnel syndrome; Translations: [Carpal tunnel syndrome, bilateral upper limbs] Onset: 12-29-2023 12-29-2023 Chronic Other nervous system disorders (4 sources) Lesion of ulnar nerve, right upper limb; Translations: [Lesion of ulnar nerve] 06-30-2024 Chronic Other nutritional; endocrine; and metabolic disorders (1 source) Obesity, unspecified; Translations: [OBESITY UNSPECIFIED] Onset: 07-22-2022 Chronic Other nutritional; endocrine; and metabolic disorders (1 source) Body mass index (BMI) 30.0-30.9, adult; Translations: [BODY MASS INDEX BMI 30.0-30.9 ADULT] Onset: 07-22-2022 Chronic Other nutritional; endocrine; and metabolic disorders (5 sources) Hypomagnesemia; Translations: [Disorders of magnesium metabolism] Onset: 12-28-2021 03-19-2024 Chronic Other nutritional; endocrine; and metabolic disorders (20 sources) Hypomagnesemia; Translations: [Hypomagnesemia] Onset: 08-19-2023 03-19-2024 Chronic Other nutritional; endocrine; and metabolic disorders (20 sources) Body mass index 30+ - obesity; Translations: [Obesity, unspecified] Onset: 02-26-2024 Resolved: 10-07-2024 02-26-2024 Chronic Other nutritional; endocrine; and metabolic disorders (8 sources) Obesity caused by energy imbalance; Translations: [Morbid (severe) obesity due to excess calories] Onset: 10-07-2024 10-07-2024 Chronic Pulmonary heart disease (20 sources) Pulmonary hypertension; Translations: [Pulmonary hypertension, unspecified] Onset: 08-02-2022 11-26-2023 Chronic Residual codes; unclassified (20 sources) Hypersomnia; Translations: [Hypersomnia, unspecified] Onset: 12-29-2023 02-02-2024 Chronic Residual codes; unclassified (20 sources) Obstructive sleep apnea syndrome; Translations: [Obstructive sleep apnea (adult) (pediatric)] Onset: 12-29-2023 12-29-2023 Chronic Spondylosis; intervertebral disc disorders; other back problems (20 sources) Degeneration of cervical intervertebral disc; Translations: [Other cervical disc degeneration, unspecified cervical region] Onset: 11-26-2023 02-02-2024 Chronic Substance-related disorders (20 sources) Nicotine dependence; Translations: [Nicotine dependence, unspecified, uncomplicated] Onset: 08-19-2023 08-19-2023 Chronic Thyroid disorders (20 sources) Hypothyroidism, unspecified; Translations: [Hypothyroidism] Onset: 07-19-2022 Chronic Unclassified (1 source) right ulnar neuropathy Onset: 05-27-2024 Past or Other Problems Problem Classification Problem Date Documented Da te Episodic/Chronic Abdominal pain (20 sources) Indigestion; Translations: [Epigastric pain] Onset: 07-06-2024 06-24-2024 Episodic Diabetes mellitus without complication (20 sources) Hyperglycemia, unspecified; Translations: [Hyperglycemia] Onset: 12-28-2021 08-19-2023 Episodic Fluid and electrolyte disorders (4 sources) Hypokalemia; Translations: [HYPOKALEMIA] Onset: 12-25-2021 Episodic Gastroduodenal ulcer (except hemorrhage) (12 sources) Acute gastric ulcer without hemorrhage AND without perforation; Translations: [Acute gastric ulcer without hemorrhage or perforation] Onset: 07-09-2024 07-09-2024 Episodic Immunizations and screening for infectious disease (20 sources) Needs influenza immunization; Translations: [Encounter for immunization] Onset: 07-06-2024 Resolved: 07-06-2024 07-06-2024 Episodic Other connective tissue disease (20 sources) Fibromyalgia; Translations: [Fibromyalgia] Onset: 08-19-2023 08-19-2023 Episodic Other connective tissue disease (20 sources) Swelling of left lower limb; Translations: [Other specified soft tissue disorders] Onset: 11-26-2023 11-26-2023 Episodic Other diseases of veins and lymphatics (20 sources) Vascular insufficiency; Translations: [Venous insufficiency (chronic) (peripheral)] Onset: 11-26-2023 11-26-2023 Episodic Other gastrointestinal disorders (1 source) Heartburn; Translations: [Heartburn] Onset: 07-09-2024 Episodic Other lower respiratory disease (4 sources) Dyspnea, unspecified; Translations: [DYSPNEA UNSPECIFIED] Onset: 04-04-2022 Episodic Other lower respiratory disease (20 sources) Dyspnea; Translations: [Dyspnea, unspecified] Onset: 08-19-2023 Resolved: 07-06-2024 08-19-2023 Episodic Other lower respiratory disease (20 sources) Cough; Translations: [Cough in adult] Onset: 11-26-2023 11-26-2023 Episodic Other nervous system disorders (20 sources) Carpal tunnel syndrome; Translations: [Carpal tunnel syndrome, unspecified upper limb] Onset: 02-02-2024 Resolved: 07-06-2024 02-02-2024 Chronic Other nervous system disorders (20 sources) Paresthesia of skin; Translations: [Disturbance of skin sensation] Onset: 11-26-2023 11-26-2023 Episodic Other nervous system disorders (20 sources) Paresthesia; Translations: [Paresthesia of skin] Onset: 02-02-2024 Resolved: 07-06-2024 02-02-2024 Episodic Other nervous system disorders (1 source) Postoperative pain ; Translations: [Other acute postprocedural pain] 05-26-2024 Episodic Other screening for suspected conditions (not mental disorders or infectious disease) (20 sources) Encounter for screening for malignant neoplasm of prostate; Translations: [Cardiovascular stress test abnormal] Onset: 07-22-2022 08-19-2023 Episodic Residual codes; unclassified (20 sources) Orthopedic hardware in situ; Translations: [Presence of other specified devices] Onset: 11-26-2023 11-26-2023 Episodic Spondylosis; intervertebral disc disorders; other back problems (20 sources) Cervical radiculopathy; Translations: [Radiculopathy, cervical region] Onset: 11-26-2023 11-26-2023 Episodic Substance-related disorders (20 sources) Marijuana user; Translations: [Cannabis use, unspecified, uncomplicated] Onset: 11-26-2023 11-26-2023 Episodic Syncope (5 sources) Syncope and collapse; Translations: [SYNCOPE AND COLLAPSE] Onset: 02-27-2022 Episodic Results Test Name Value Interpretation Reference Range Facility ALL MAGNESIUMon 10-07-2024 Interpretation and review of laboratory results Abnormal [facility] Magnesium [Mass/Vol] 0.8 mg/dL Critically low 1.8 - 2.4 mg/dL [facility] Comment on above: RESULTS CALLED TO ALL THYROID STIM HORMONEon 0 10-07-2024 TSH Qn 2.054 m[IU]/L [facility] HbA1c (Bld) [Mass fraction]o n 10-07-2024 Interpretation and review of laboratory results Normal [facility] - Hematology and Cell countson 10-07-2024 HbA1c (Bld) [Mass fraction] 5.60 % [facility] No Panel Informationon 10-07 [facility] Amphetamine Screen Ql (U)Ord ered By: Imrosalie Asarosalie on 10-06-2024 Amphetamines Ql (U) Amphetamines screen Negativ e [facility] Barbiturates [Presence] in U rine by Screen methodOrdered By: Imad Asaad on 10-06-2024 Barbiturates Screen Ql (U) Barbiturates [Presence] in Urine by Screen method Negative [facility] Benzodiazepines Screen Ql (U )Ordered By: Imad Asaad on 10-06-2024 Benzodiazepines Ql (U) Benzodiazepines [Presence] in Urine by Screen method Negative [facility] Benzoylecgonine [Presence] i n Urine by Screen methodOrdered By: Imrosalie Elaine on 10-06-2024 Benzoylecgonine Screen Ql (U) Benzoylecgonine [Presence] in Urine by Screen method Negative [facility] Cannabinoids [Presence] in U rine by Screen methodOrdered By: James Elaine on 10-06-2024 Cannabinoids Screen Ql (U) Cannabinoids [Presence] in Urine by Screen method High Negative [facility] Comment on above: These are unconfirme d results and should not be used for legal purposes. Drug Cut-Off Concentration: AMPH 1000 ng/mL MAX 200 ng/mL JUHI 200 ng/mL COCM 300 ng/mL OP 300 ng/mL PCP 25 ng/mL THC 20 ng/mL Drug Screen,Urineon 10-06-19 Amphetamine Screen,Urine Negative Normal Negative [facility] Comment on above: Performed By: #### U RDS #### [address] Barbiturate Screen,Urine Negative Normal Negative [facility] Comment on above: Performed By: #### U RDS #### [place] [address] [place] Benzodiazepines Screen,Urine Negative Normal Negative [facility] Comment on above: Performed By: #### U RDS #### [address] Cannabinoid Screen,Urine Positive High Negative [facility] Comment on above: Result Comment: Thes e are unconfirmed results and should not be used for legal purposes. Drug Cut-Off Concentration: AMPH 1000 ng/mL MAX 200 ng/mL JUHI 200 ng/mL COCM 300 ng/mL OP 300 ng/mL PCP 25 ng/mL THC 20 ng/mL PERFORMED BY: [place] [address] PATHOLOGIST CERTIFIED NURSE AIDE JAN GRIMES M.D. Performed By: #### U RDS #### [place] [address] [place] Cocaine Screen,Urine Negative Normal Negative [facility] Comment on above: Performed By: #### U RDS #### [place] [address] [place] Opiate Screen,Urine Negative Normal Negative [facility] Comment on above: Performed By: #### U RDS #### [facility] [address] Phencyclidine Screen,Urine Negative Normal Negative [facility] Comment on above: Performed By: #### U RDS #### [facility] [address] Luciano 10-06-2024 L Specimen: [id number] Received: 10/06/24 Status: SAHIL Ruiz Num: [id number] Spec Type: Surgical Subm Dr: James Elaine MD Tissues: A Esophagus Biopsy (ESOPHAGUS BX R/O BARRETTS) Procedures: LEENA/Twila Alvarenga/Matt L4 Age/ Patient Sex Location Account Attending Physician Abram Guillaume 58/M [id number] James Elaine MD SPEC NUM: [id number] RECD: 10/06/24 STATUS: SAHIL EUGENIO NUM: [id number] PHILLIP: 10/06/24 [facility] DR: James Elaine MD ENTERED: 10/06/24 [facility] DR: SPEC TYPE: Surgical DEPT: S ENTERED BY: [id number] RECV BY: [id number] ORDERED: HE/2, Gross/Micro L4 ORDERED: HE/2, Gross/Micro L4 Pathological Diagnosis Esophagus, biopsy: - Glandular mucosa with no significant histopathology. - No squamous epithelium present. - No evidence of intestinal metaplasia/Diana's type mucosa identified. Clinical Information Esophagitis, esophageal ulcer, gastritis, rule out Diana's. Gross Description Received in formalin labeled with the patients name, date of , and esophagus BX is a pale alves, focally erythematous, feathery, 0.3 cm in greatest dimension tissue bit. The specimen is entirely submitted in a single cassette. (1, ns, [id number]) Microscopic Description Microscopic examination is performed. Specimen: [id number] Received: 10/06/24 Status: SAHIL Ruiz Num: [id number] Spec Type: Surgical Subm Dr: James Elaine MD Tissues: A Esophagus Biopsy (ESOPHAGUS BX R/O BARRETTS) Procedures: HE/2, Gross/Micro L4 Patient: [place] [id number] (Continued) Specimen: [id number] Received: 10/06/24 (Continued) Signed (signature on file) Sandro Baird MD 10/07/24 1009 Specimen: [id number] Received: 10/06/24 Status: SARAAdalberto Ruiz Num: [id number] Spec Type: Surgical Subm Dr: James Elaine MD Tissues: A Esophagus Biopsy (ESOPHAGUS BX R/O BARRETTS) Procedures: LEENA/Twila Alvarenga/Matt L4 Patient: Abram Guillaume [id number] (Continued) Specimen: [id number] Received: 10/06/24 (Continued) CPT Codes 12851 Specimen: Received: 10/06/24 Status: SAHIL Eugenio Num: [id number] Spec Type: Surgical Subm Dr: James Elaine MD Tissues: A Esophagus Biopsy (ESOPHAGUS BX R/O BARRETTS) Procedures: HE/Colette, Twila/Matt L4 Patient: Abram Guillaume [id number] (Continued) Signed (signature on file) Sandro Baird MD 10/07/24 1009 Normal [facility] Opiates [Presence] in Urine by Screen methodOrdered By: Imad Asaad on 10-06-2024 Opiates Screen Ql (U) Opiates [Presence] in Urine by Screen method Negative [facility] Phencyclidine Screen Ql (U)O rdered By: Imad Asaad on 10-06-2024 Phencyclidine Ql (U) Phencyclidine [Presence] in Urine by Screen method Negative [facility] ALL BASIC METABOLIC PANELon 09-28-2024 Anion gap [Moles/Vol] 14.1 mmol/L [facility] Calcium [Mass/Vol] 8.3 mg/dL Low 8.5 - 10. 1 mg/dL [facility] Chloride [Moles/Vol] 104 mmol/L 98 - 10 7 mmol/L [facility] CO2 [Moles/Vol] 28.4 mmol/L 21.0 - 32.0 mmol/L [facility] Creatinine [Mass/Vol] 1.61 mg/dL High 0.70 - 1.30 mg/dL [facility] GFR/1.73 sq M.predicted CKD-EPI (S/P/Bld) [Vol rate/Area] 54 Low >=60 mL/min/1.73m 2 [facility] Glucose [Mass/Vol] 137 mg/dL High 74 - 106 mg/dL [facility] Potassium [Moles/Vol] 3.5 mmol/L 3.5 - 5.1 mmol/L [facility] Sodium [Moles/Vol] 143 mmol/L 136 - 145 mmol/L [facility] TBH EGFR-NON AF BAHAMIAN 45 Low >=60 mL/min/1.73m 2 [facility] Urea nitrogen [Mass/Vol] 17 mg/dL 7.0 - 18.0 mg/dL [facility] Urea nitrogen/Creatinine [Mass ratio] 10.6 mg/mg [facility] ALL MAGNESIUMon 09-28-2024 Magnesium [Mass/Vol] 0.8 mg/dL Critically low 1.8 - 2.4 mg/dL [facility] Comment on above: RESULTS CALLED TO ELIZABETH SEXTON NP No Panel Informationon 09-28 Interpretation and review of laboratory results Abnormal [facility] Amphetamine Screen Ql (U)Ord ered By: rosalie Elaine on 07-09-2024 Amphetamines Ql (U) Amphetamines screen Negativ e [facility] Amphetamines Ql (U) Negative Negative [facility] Barbiturates [Presence] in U rine by Screen methodOrdered By: rosalie Elaine on 07-09-2024 Barbiturates Screen Ql (U) Negative Negative [facility] Barbiturates Screen Ql (U) Barbiturates [Presence] in Urine by Screen method Negative [facility] Benzodiazepines Screen Ql (U )Ordered By: rosalie Elaine on 07-09-2024 Benzodiazepines Ql (U) Negative Negative [facility] Benzodiazepines Ql (U) Benzodiazepines [Presence] in Urine by Screen method Negative [facility] Benzoylecgonine [Presence] i n Urine by Screen methodOrdered By: rosalie Elaine on 07-09-2024 Benzoylecgonine Screen Ql (U) Negative Negative [facility] Benzoylecgonine Screen Ql (U) Benzoylecgonine [Presence] in Urine by Screen method Negative [facility] Cannabinoids [Presence] in U rine by Screen methodOrdered By: rosalie Holbrook on 07-09-2024 Cannabinoids Screen Ql (U) Negative Negative [facility] Comment on above: These are unconfirme d results and should not be used for legal purposes. Drug Cut-Off Concentration: AMPH 1000 ng/mL MAX 200 ng/mL JUHI 200 ng/mL COCM 300 ng/mL OP 300 ng/mL PCP 25 ng/mL THC 20 ng/mL Cannabinoids Screen Ql (U) Cannabinoids [Presence] in Urine by Screen method Negative [facility] Comment on above: These are unconfirme d results and should not be used for legal purposes. Drug Cut-Off Concentration: AMPH 1000 ng/mL MAX 200 ng/mL JUHI 200 ng/mL COCM 300 ng/mL OP 300 ng/mL PCP 25 ng/mL THC 20 ng/mL Drug Screen,Urineon 07-09-20 24 Amphetamine Screen,Urine Negative Normal Negative [facility] Comment on above: Performed By: #### U RDS #### [address] Barbiturate Screen,Urine Negative Normal Negative [facility] Comment on above: Performed By: #### U RDS #### [address] Benzodiazepines Screen,Urine Negative Normal Negative [facility] Comment on above: Performed By: #### U RDS #### [address] Cannabinoid Screen,Urine Negative Normal Negative [facility] Comment on above: Result Comment: Thes e are unconfirmed results and should not be used for legal purposes. Drug Cut-Off Concentration: AMPH 1000 ng/mL MAX 200 ng/mL JUHI 200 ng/mL COCM 300 ng/mL OP 300 ng/mL PCP 25 ng/mL THC 20 ng/mL PERFORMED BY: [place] [address] PATHOLOGIST CERTIFIED NURSE AIDE ZUHAIR KAUR M.D. Performed By: #### U RDS #### [address] Cocaine Screen,Urine Negative Normal Negative [facility] Comment on above: Performed By: #### U RDS #### [address] Opiate Screen,Urine Negative Normal Negative [facility] Comment on above: Performed By: #### U RDS #### [address] Phencyclidine Screen,Urine Negative Normal Negative [facility] Comment on above: Performed By: #### U RDS #### [address] No Panel InformationOrdered By: James Elaine on 07-09-2024 Miscellaneous Pathology Test See comment [facility] Comment on above: See report. Scanned copy available in EMR. Opiates [Presence] in Urine by Screen methodOrdered By: James Elaine on 07-09-2024 Opiates Screen Ql (U) Negative Negative [facility] Opiates Screen Ql (U) Opiates [Presence] in Urine by Screen method Negative [facility] Pathology Request for Lab Co rpon 07-09-2024 Pathology Request for Lab Itzel Normal [facility] Comment on above: Order Comment: PATHO LOGY GI SPECIMEN Result Comment: See report. Scanned copy available in EMR. PERFORMED BY: [facility] [address] [place] [address] PATHOLOGIST CERTIFIED NURSE AIDE ZUHAIR KAUR M.D. Performed By: #### P ATH TO [facility] #### [facility] [address] Phencyclidine Screen Ql (U)O rdered By: James Elaine on 07-09-2024 Phencyclidine Ql (U) Negative Negative [facility] Phencyclidine Ql (U) Phencyclidine [Presence] in Urine by Screen method Negative [facility] ALL MAGNESIUMon 06-23-2024 Magnesium [Mass/Vol] 1.5 mg/dL Low 1.8 - 2 .4 mg/dL [facility] ALL RENAL FUNCTION PANELon 1 Albumin [Mass/Vol] 3.3 g/dL Low 3.4 - 5.0 g/dL [facility] Anion gap [Moles/Vol] 12.6 mmol/L [facility] Calcium [Mass/Vol] 8.7 mg/dL 8.5 - 10. 1 mg/dL [facility] Chloride [Moles/Vol] 104 mmol/L 98 - 10 7 mmol/L [facility] CO2 [Moles/Vol] 26.1 mmol/L 21.0 - 32.0 mmol/L [facility] Creatinine [Mass/Vol] 1.72 mg/dL High 0.70 - 1.30 mg/dL [facility] GFR/1.73 sq M.predicted CKD-EPI (S/P/Bld) [Vol rate/Area] 50 Low 60 - PINF [facility] Glucose [Mass/Vol] 114 mg/dL High 74 - 106 mg/dL [facility] Phosphate [Mass/Vol] 3.2 mg/dL 2.6 - 4 .7 mg/dL [facility] Potassium [Moles/Vol] 4.7 mmol/L 3.5 - 5.1 mmol/L [facility] Sodium [Moles/Vol] 138 mmol/L 136 - 145 mmol/L [facility] TBH EGFR-NON AF BAHAMIAN 41 Low 60 - PINF [facility] Urea nitrogen [Mass/Vol] 30.0 mg/dL High 7.0 - 18.0 mg/dL [facility] Urea nitrogen/Creatinine [Mass ratio] 17.4 mg/mg [facility] ALL URIC ACIDon 06-23-2024 Urate [Mass/Vol] 8.0 mg/dL High 3.5 - 7.2 mg/dL [facility] Estimated glomerular filtrat ion rate (GFR) non- Americanon 06-23-2024 GFR/1.73 sq M.predicted among non-blacks MDRD (S/P/Bld) [Vol rate/Area] 41 mL/min/{1.73_m2} Low >=60 [facility] Laboratory - Chemistry and C hemistry - challengeon 06-23-2024 Albumin [Mass/Vol] 3.3 g/dL Low 3.4-5.0 [facility] Calcium [Mass/Vol] 8.7 mg/dL 8.5-10.1 [facility] Chloride [Moles/Vol] 104 mmol/L 98-[address] [facility] CO2 [Moles/Vol] 26.1 mmol/L 21.0-32.0 [facility] Creatinine [Mass/Vol] 1.72 mg/dL High 0.70-1.30 [facility] GFR/1.73 sq M.predicted MDRD (S/P/Bld) [Vol rate/Area] 50 mL/min/{1.73_m2} Low >=60 [facility] Glucose [Mass/Vol] 114 mg/dL High 74-106 [facility] Magnesium [Mass/Vol] 1.5 mg/dL Low 1.8-2.[address] [facility] Potassium [Moles/Vol] 4.7 mmol/L 3.5-5.1 [facility] Sodium [Moles/Vol] 138 mmol/L 136-145 [facility] Urate [Mass/Vol] 8.0 mg/dL High 3.5-7.2 [facility] Urea nitrogen [Mass/Vol] 30.0 mg/dL High 7.0-18.0 [facility] Urea nitrogen/Creatinine [Mass ratio] 17.4 mg/mg [facility] Laboratory - Urinalysison Protein (U) [Mass/Vol] 12.6 mg/dL High <=11.9 [facility] No Panel Informationon 06-23 Urine Random Creatinine 78.13 mg/dL 20.00-300.00 [facility] Interpretation and review of laboratory results Abnormal [facility] Phosphorus Level 3.2 mg/dL 2.6-4.7 [facility] Serum or plasma anion gap de terminationon 06-23-2024 Anion gap [Moles/Vol] 12.6 mmol/L [facility] Urine protein/creatinine rat ioon 06-23-2024 Protein/Creatinine (U) [Ratio] 0.16 [facility] BASIC METABOLIC PANLon 04-27 Anion gap [Moles/Vol] 9 mmol/L Normal 5-15 [facility] Comment on above: Performed By: #### B MP #### [facility] ([id number]) [address], [address] [place] [address] Calcium [Mass/Vol] 9.5 mg/dL Normal 8.5-10.5 [facility] Comment on above: Performed By: #### B MP #### [facility] ([id number]) [address], [address] [place] [address] Chloride [Moles/Vol] 105 mmol/L Normal 98-109 [facility] Comment on above: Performed By: #### B MP #### [facility] ([id number]) [address], [address] [place] [address] CO2 [Moles/Vol] 25 mmol/L Normal 22-32 [facility] Comment on above: Performed By: #### B MP #### [facility] ([id number]) [address], [address] [place] [address] Creatinine [Mass/Vol] 1.60 mg/dL High 0.60-1.30 [facility] Comment on above: Result Comment: METH OD TRACEABLE TO IDMS STANDARD Performed By: #### B MP #### [facility] ([id number]) [address] [place] [address] GFR/1.73 sq M.predicted among non-blacks MDRD (S/P/Bld) [Vol rate/Area] 50 mL/min/{1.73_m2} Low >59 [facility] Comment on above: Result Comment: Reported eGFR is based on the CKD-EPI 2020 equation that does not use a race coefficient. Performed By: #### B MP #### [facility] ([id number]) [address] [place] [address] Glucose [Mass/Vol] 104 mg/dL High 65-99 [facility] Comment on above: Performed By: #### B MP #### [facility] ([id number]) [address] [facility] [address] [place] [address] Potassium [Moles/Vol] 4.2 mmol/L Normal 3.5-5.0 [facility] Comment on above: Performed By: #### B MP #### [facility] ([id number]) [address] [address] [place] [address] Sodium [Moles/Vol] 139 mmol/L Normal 134-146 [facility] Comment on above: Performed By: #### B MP #### [facility] ([id number]) [address] [place] [address] Urea nitrogen [Mass/Vol] 31 mg/dL High 5-23 [facility] Comment on above: Performed By: #### B MP #### [facility] ([id number] [address], [address] [place] [address] CBC AUTO DIFFon 07-19-2022 BASO # 0.1 103/ul Normal 0.0-0.1 [facility] Comment on above: Performed By: #### C BC #### [facility] [address] [address] [address] Lavonne Tinoco Basophils/100 WBC (Bld) 0.9 % Normal 0.2-2.0 [facility] Comment on above: Performed By: #### C BC #### [facility] [address] [address] [address] Lavonne Tinoco EO # 0.4 103/ul Normal 0.0-0.7 [facility] Comment on above: Performed By: #### C BC #### [facility] [address] [address] [address] Lavonne Tinoco Eosinophils/100 WBC (Bld) 4.5 % Normal 0.9-7.0 [facility] Comment on above: Performed By: #### C BC #### [facility] [address] [address] [address] Lavonne Tinoco Erythrocyte distribution width (RBC) [Ratio] 13.4 % Normal 11.0-15.0 [facility] Comment on above: Performed By: #### C BC #### [facility] [address] [place] [address] Dr. Lavonne Tinoco Hematocrit (Bld) [Volume fraction] 45.0 % Normal 42.0-54.0 [facility] Comment on above: Performed By: #### C BC #### [facility] [id number] Lavonne Tinoco Hemoglobin (Bld) [Mass/Vol] 15.1 g/dL Normal 14.0-18.0 [facility] Comment on above: Performed By: #### C BC #### [facility] [id number] Lavonne Tinoco IG # 0.04 10e3/ul Critically high 0.00-0.03 [facility] Comment on above: Performed By: #### C BC #### [facility] [address] [place] [address] Dr. Lavonne Tinoco IG % 0.4 % Normal 0.0-0.5 [facility] Comment on above: Performed By: #### C BC #### [facility] [address] [place] [address] Dr. Lavonne Tinoco LYMPH # 2.0 103/ul Normal 1.2-3.8 [facility] Comment on above: Performed By: #### C BC #### [facility] [address] [place] [address] Dr. Lavonne Tinoco Lymphocytes/100 WBC (Bld) 21.6 % Normal 20.5-60.0 [facility] Comment on above: Performed By: #### C BC #### [facility] [address] [place] [address] Dr. Lavonne Tinoco MANUAL DIFF REQ NO Normal [facility] Comment on above: Performed By: #### C BC #### [facility] [address] [place] [address] Dr. Lavonne Tinoco MCH (RBC) [Entitic mass] 32.7 pg Normal 25.9-34.0 [facility] Comment on above: Performed By: #### C BC #### [facility] [address] [place] [address] Dr. Lavonne Tinoco MCHC (RBC) [Mass/Vol] 33.6 g/dL Normal 29.9-35.2 [facility] Comment on above: Performed By: #### C BC #### [facility] [address] [place] [address] Dr. Lavonne Tinoco MCV (RBC) [Entitic vol] 97.4 fL Critically high 80.0-94.0 [facility] Comment on above: Performed By: #### C BC #### [facility] [address] [place] [address] Dr. Lavonne Tinoco MONO # 0.6 103/ul Normal 0.3-0.8 [facility] Comment on above: Performed By: #### C BC #### [facility] [address] [place] [address] Dr. Lavonne Tinoco Monocytes/100 WBC (Bld) 6.0 % Normal 1.7-12.0 [facility] Comment on above: Performed By: #### C BC #### [facility] [address] [place] [address] Dr. Lavonne Tinoco NEUT # 6.3 103/ul Normal 1.4-6.5 [facility] Comment on above: Performed By: #### C BC #### [facility] [address] [place] [address] Dr. Lavonne Tinoco Neutrophils/100 WBC (Bld) 66.6 % Normal 43.0-75.0 [facility] Comment on above: Performed By: #### C BC #### [facility] [address] [place] [address] Dr. Lavonne Tinoco Platelet mean volume (Bld) [Entitic vol] 10.7 fL Normal 9.5-13.5 [facility] Comment on above: Performed By: #### C BC #### [facility] [address] [place] [address] Dr. Lavonne Tinoco PLT 300 103/ul Normal 150-450 [facility] Comment on above: Performed By: #### C BC #### [facility] [address] [place] [address] Dr. Lavonne Tinoco RBC 4.62 106/ul Critically low 4.70-6.10 [facility] Comment on above: Performed By: #### C BC #### [facility] [address] [place] [address] Dr. Lavonne Tinoco WBC 9.4 103/ul Normal 4.0-11.0 [facility] Comment on above: Performed By: #### C BC #### [facility] [address] [place] [address] Dr. Lavonne Tinoco FREE T4on 07-19-2022 Free T4 [Mass/Vol] 0.90 ng/dL Normal 0.76-1.46 [facility] Comment on above: Performed By: #### C MP, TSH, LIPID #### [facility] [address] [place] [address] Dr. Lavonne Tinoco LIPID PROFILEon 07-19-2022 CHOL-HDL RATIO NORM SEE BELOW Normal [facility] Comment on above: Result Comment: 3.3 - 4.4 LOW RISK 4.4 - 7.1 AVERAGE RISK 7.1 - 11.0 MODERATE RISK >11.0 HIGH RISK Performed By: #### C MP, TSH, LIPID #### [facility] [address] [address] [address] Lavonne Tinoco Cholesterol [Mass/Vol] 207 mg/dL Critically high <=200 [facility] Comment on above: Performed By: #### C MP, TSH, LIPID #### [facility] [address] [address] [address] Lavonne Tinoco Cholesterol in HDL [Mass/Vol] 37 mg/dL Critically low 40-60 [facility] Comment on above: Performed By: #### C MP, TSH, LIPID #### [facility] [address] [place] [address] Dr. Lavonne Tinoco Cholesterol in LDL [Mass/Vol] 143.8 mg/dL Normal [facility] Comment on above: Performed By: #### C MP, TSH, LIPID #### [facility] [address] [address] [address] Lavonne Tinoco Cholesterol.total/Chol esterol in HDL [Mass ratio] 5.6 {ratio} Normal [facility] Comment on above: Performed By: #### C MP, TSH, LIPID #### [facility] [address] [place] [address] Dr. Lavonne Tinoco HDL NORMAL > or = 60 mg/dl - LOW CARDIOVASCULAR RISK <40 mg/dl - HIGH CARDIOVASCULAR RISK Normal [facility] Comment on above: Performed By: #### C MP, TSH, LIPID #### [facility] [address] [place] [address] Dr. Lavonne Tinoco LDL CALC NORMAL SEE BELOW Normal [facility] Comment on above: Result Comment: <100 mg/dl OPTIMAL 100 - 129 mg/dl NEAR OR ABOVE OPTIMAL 130 - 159 mg/dl BORDERLINE HIGH 160 - 189 mg/dl HIGH >190 mg/dl VERY HIGH Performed By: #### C MP, TSH, LIPID #### [facility] [address] [address] [address] Lavonne Tinoco Triglyceride [Mass/Vol] 131 mg/dL Normal <=150 [facility] Comment on above: Performed By: #### C MP, TSH, LIPID #### [facility] [address] [address] [address] Lavonne Tinoco VLDL CALC 26.2 mg/dL Normal [facility] Comment on above: Performed By: #### C MP, TSH, LIPID #### [facility] [address] [address] [address] Lavonne Tinoco PROF 14(COMP METB)on 022 Albumin [Mass/Vol] 3.6 g/dL Normal 3.4-5.0 [facility] Comment on above: Performed By: #### C MP, TSH, LIPID #### [facility] [address] [place] [address] Dr. Lavonne Tinoco Albumin/Globulin [Mass ratio] 1.0 {ratio} Normal [facility] Comment on above: Performed By: #### C MP, TSH, LIPID #### [facility] [address] [address] [address] Lavonne Tinoco ALP [Catalytic activity/Vol] 85 U/L Normal 46-116 [facility] Comment on above: Performed By: #### C MP, TSH, LIPID #### [facility] [address] [address] [address] Lavonne Tinoco ALT [Catalytic activity/Vol] 33 U/L Normal 16-63 [facility] Comment on above: Performed By: #### C MP, TSH, LIPID #### [facility] [address] [address] [address] Lavonne Tinoco Anion gap [Moles/Vol] 9.2 mmol/L Normal [facility] Comment on above: Performed By: #### C MP, TSH, LIPID #### [facility] [address] [place] [address] Dr. Lavonne Tinoco AST [Catalytic activity/Vol] 17 U/L Normal 15-37 [facility] Comment on above: Performed By: #### C MP, TSH, LIPID #### [facility] [address] [address] [address] Lavonne Tinoco Bilirubin [Mass/Vol] 0.5 mg/dL Normal 0.2-1.0 [facility] Comment on above: Performed By: #### C MP, TSH, LIPID #### [facility] [address] [place] [address] Dr. Lavonne Tinoco Calcium [Mass/Vol] 8.5 mg/dL Normal 8.5-10.1 [facility] Comment on above: Performed By: #### C MP, TSH, LIPID #### [facility] [address] [address] [address] Lavonne Tinoco Chloride [Moles/Vol] 106 mmol/L Normal 98-107 [facility] Comment on above: Performed By: #### C MP, TSH, LIPID #### [facility] [address] [place] [address] Dr. Lavonne Tinoco CO2 [Moles/Vol] 31.3 mmol/L Normal 21.0-32.0 [facility] Comment on above: Performed By: #### C MP, TSH, LIPID #### [facility] [address] [place] [address] Dr. Lavonne Tinoco Creatinine [Mass/Vol] 1.06 mg/dL Normal 0.70-1.30 [facility] Comment on above: Performed By: #### C MP, TSH, LIPID #### [facility] [address] [place] [address] Dr. Lavonne Tinoco EGFR-AF BAHAMIAN >60 Normal >=60 [facility] Comment on above: Performed By: #### C MP, TSH, LIPID #### [facility] [address] [place] [address] Dr. Lavonne Tinoco EGFR-NON AF BAHAMIAN >60 Normal >=60 [facility] Comment on above: Performed By: #### C MP, TSH, LIPID #### [facility] [address] [place] [address] Dr. Lavonne Tinoco Globulin (S) [Mass/Vol] 3.6 g/dL Normal [facility] Comment on above: Performed By: #### C MP, TSH, LIPID #### [facility] [address] [address] [address] Lavonne Tinoco Glucose [Mass/Vol] 101 mg/dL Normal 74-106 [facility] Comment on above: Performed By: #### C MP, TSH, LIPID #### [facility] [address] [place] [address] Dr. Lavonne Tinoco Potassium [Moles/Vol] 3.5 mmol/L Normal 3.5-5.1 [facility] Comment on above: Performed By: #### C MP, TSH, LIPID #### [facility] [address] [place] [address] Dr. Lavonne Tinoco Protein [Mass/Vol] 7.2 g/dL Normal 6.4-8.2 [facility] Comment on above: Performed By: #### C MP, TSH, LIPID #### [facility] [address] [place] [address] Dr. Lavonne Tinoco Sodium [Moles/Vol] 143 mmol/L Normal 136-145 [facility] Comment on above: Performed By: #### C MP, TSH, LIPID #### [facility] [address] [place] [address] Dr. Lavonne Tinoco Urea nitrogen [Mass/Vol] 21.0 mg/dL Critically high 7.0-18.0 [facility] Comment on above: Performed By: #### C MP, TSH, LIPID #### [facility] [address] [place] [address] Dr. Lavonne Tinoco Urea nitrogen/Creatinine [Mass ratio] 19.8 mg/mg Normal [facility] Comment on above: Performed By: #### C MP, TSH, LIPID #### [facility] [address] [place] [address] Dr. Lavonne Tinoco TSHon 07-19-2022 TSH 1.947 uIU/mL Normal 0.358-3.740 [facility] Comment on above: Performed By: #### C MP, TSH, LIPID #### [facility] [address] [place] [address] Dr. Lavonne Tinoco UA RANDOM W/MICROSCOPICon BACTERIA NONE SEEN Normal NONE SEEN [facility] Comment on above: Performed By: #### U AMIC #### [facility] [address] [place] [address] Dr. Lavonne Tinoco Bilirubin Ql (U) Negative Normal NEGATIVE [facility] Comment on above: Performed By: #### U AMIC #### [facility] [address] [place] [address] Dr. Lavonne Tinoco CAST NONE SEEN Normal NONE SEEN [facility] Comment on above: Performed By: #### U AMIC #### [facility] [address] [place] [address] Dr. Lavonne Tinoco Clarity (U) CLEAR Normal CLEAR [facility] Comment on above: Performed By: #### U AMIC #### [facility] [address] [place] [address] Dr. Lavonne Tinoco Color (U) YELLOW Normal YELLOW [facility] Comment on above: Performed By: #### U AMIC #### [facility] [address] [place] [address] Dr. Lavonne Tinoco Crystals LM Nom (Urine sed) NONE SEEN Normal NONE SEEN [facility] Comment on above: Performed By: #### U AMIC #### [facility] [address] [place] [address] Dr. Lavonne Tinoco Epithelial cells LM Ql (Urine sed) FEW Abnormal NONE SEEN /RARE [facility] Comment on above: Performed By: #### U AMIC #### [facility] [address] [place] [address] Dr. Lavonne Tinoco Glucose Ql (U) Negative Normal NEGATIVE [facility] Comment on above: Performed By: #### U AMIC #### [facility] [address] [place] [address] Dr. Lavonne Tinoco Hemoglobin Ql (U) Negative Normal NEGATIVE [facility] Comment on above: Performed By: #### U AMIC #### [facility] [address] [place] [address] Dr. Lavonne Tinoco Ketones Ql (U) Negative Normal NEGATIVE [facility] Comment on above: Performed By: #### U AMIC #### [facility] [address] [address] [address] Lavonne Tionco LEUKOCYTES TRACE Abnormal NEGATIVE [facility] Comment on above: Performed By: #### U AMIC #### [facility] [address] [place] [address] Dr. Lavonne Tinoco MUCOUS NONE SEEN Normal NONE SEEN [facility] Comment on above: Performed By: #### U AMIC #### [facility] [address] [address] [address] Lavonne Tinoco Nitrite Ql (U) Negative Normal NEGATIVE [facility] Comment on above: Performed By: #### U AMIC #### [facility] [address] [place] [address] Dr. Lavonne Tinoco pH (U) 6.0 [pH] Normal 5-9 [facility] Comment on above: Performed By: #### U AMIC #### [facility] [address] [place] [address] Dr. Lavonne Tinoco RBC NONE SEEN Abnormal 0-2 [facility] Comment on above: Performed By: #### U AMIC #### [facility] [address] [address] [address] Lavonne Tinoco SPEC GRAVITY 1.020 Normal 1.005-<=1.025 [facility] Comment on above: Performed By: #### U AMIC #### [facility] [address] [address] [address] Lavonne Tinoco UA PROTEIN TRACE Normal NEGATIVE/ TRACE [facility] Comment on above: Performed By: #### U AMIC #### [facility] [address] [address] [address] Lavonne Tinoco Urobilinogen Qn (U) 2.0 {Erick'U}/dL Abnormal 0.2 - 1. 0 [facility] Comment on above: Performed By: #### U AMIC #### [facility] [address] [place] [address] Dr. Lavonne Tinoco WBC 0-2 Abnormal NONE SEEN [facility] Comment on above: Performed By: #### U AMIC #### [facility] [address] [address] [address] 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 on 02/28/2022 at 11:[address] [facility] ANKLE LEFT 3 [facility] 2 ANKLE LEFT 3 [facility] Department of Radiology [address] [place] [id number] Patient Name: ABRAM GUILLAUME : 1965 Sex: M Age: Race: [...] above Electronically signed: Violeta Jay. Transcribed by: [email or web address], User Resident: Electronically Signed by: VIOLETA JAY @ 01/12/2022 03:24 PM Normal [facility] Comment on above: Order Comment: Views (X-RAY, ANKLE): AP, Lateral, Mortise , Weight Bearing?: Y GLYCOHEMOGLOBIN A1Con 2021 ADA RECOMMENDATION ADA THERAPEUTIC TARGET 6.0 - 7.0 ACTION SUGGESTED > 7.[address] [facility] Comment on above: Performed By: #### A 1C #### [facility] [address] [address] [address] Lavonne Tinoco Glucose [Mass/Vol] 100 mg/dL [facility] Comment on above: Performed By: #### A 1C #### [facility] [address] [place], [place] [address] Dr. Lavonne Tinoco HbA1c (Bld) [Mass fraction] 5.1 % Normal <=6.0 [facility] Comment on above: Performed By: #### A 1C #### [facility] [address] [address] [address] Lavonne Tinoco MAGNESIUMon 12-25-2021 Magnesium [Mass/Vol] 1.7 mg/dL Normal 1.6-2.3 [facility] Comment on above: Performed By: #### M G, BMP #### [facility] [address] [address] [address] Lavonne Tinoco PROF CHEM 8 (BAS METB)on Anion gap [Moles/Vol] 12.3 mmol/L Normal [facility] Comment on above: Performed By: #### M G, BMP #### [facility] [address] [place] [address] Dr. Lavonne Tinoco Calcium [Mass/Vol] 8.7 mg/dL Normal 8.5-10.1 [facility] Comment on above: Performed By: #### M G, BMP #### [facility] [address] [place] [address] Dr. Lavonne Tinoco Chloride [Moles/Vol] 107 mmol/L Normal 98-107 [facility] Comment on above: Performed By: #### M G, BMP #### [facility] [address] [place] [address] Dr. Lavonne Tinoco CO2 [Moles/Vol] 27.4 mmol/L Normal 22.0-30.0 [facility] Comment on above: Performed By: #### M G, BMP #### [facility] [address] [place] [address] Dr. Lavonne Tinoco Creatinine [Mass/Vol] 1.50 mg/dL Critically high 0.66-1.25 [facility] Comment on above: Performed By: #### M G, BMP #### [facility] [address] [place] [address] Dr. Lavonne Tinoco EGFR-AF BAHAMIAN 59 mL/min/1.73m2 Critically low >=60 [facility] Comment on above: Performed By: #### M G, BMP #### [facility] [address] [place] [address] Dr. Lavonne Tinoco EGFR-NON AF BAHAMIAN 49 mL/min/1.73m2 Critically low >=60 [facility] Comment on above: Performed By: #### M G, BMP #### [facility] [address] [address] [address] Lavonne Tinoco Glucose [Mass/Vol] 103 mg/dL Normal 74-106 [facility] Comment on above: Performed By: #### M G, BMP #### [facility] [address] [address] [address] Lavonne Tinoco Potassium [Moles/Vol] 3.7 mmol/L Normal 3.4-5.0 [facility] Comment on above: Performed By: #### M G, BMP #### [facility] [address] [address] [address] Lavonne Tinoco Sodium [Moles/Vol] 143 mmol/L Normal 137-145 [facility] Comment on above: Performed By: #### M G, BMP #### [facility] [address] [address] [address] Lavonne Tinoco Urea nitrogen [Mass/Vol] 17.0 mg/dL Normal 7.0-18.0 [facility] Comment on above: Performed By: #### M G, BMP #### [facility] [address] [place] [address] Dr. Lavonne Tinoco Urea nitrogen/Creatinine [Mass ratio] 11.3 mg/mg Normal [facility] Comment on above: Performed By: #### M G, BMP #### [facility] [address] [place] [address] Dr. Lavonne Tinoco Vital Signs Date Time Vital Sign Value Performing Clinician Facility 10-07-2024 09:05-0500 Body height 175.3 cm Pepper Sexton [employer] Work Phone: [facility] 10-07-2024 09:05-0500 Body mass index (BMI) [Ratio] 41.47 kg/m2 Pepper Sexton [employer] Work Phone: [facility] 10-07-2024 09:05-0500 Body temperature 97.81 [degF] Pepper Sexton [employer] Work Phone: [facility] 10-07-2024 09:05-0500 Body weight 127.37 kg Pepper Aichholz [employer] Work Phone: [facility] 10-07-2024 09:05-0500 Diastolic blood pressure 84 mm[Hg] Pepper Aichholz [employer] Work Phone: [facility] 10-07-2024 09:05-0500 Heart rate 92 /min Pepper Aichholz [employer] Work Phone: [facility] 10-07-2024 09:05-0500 Respiratory rate 22 /min Pepper Aichholz [employer] Work Phone: [facility] 10-07-2024 09:05-0500 SaO2% (BldA) [Mass fraction] 96 % Pepper Aichholz [employer] Work Phone: [facility] 10-07-2024 09:05-0500 Systolic blood pressure 138 mm[Hg] Pepper Aichholz [employer] Work Phone: [facility] 10-06-2024 09:05-0500 Diastolic blood pressure 86 mm[Hg] Pepper Aichholz Work Phone: [facility] 10-06-2024 09:05-0500 Heart rate 88 /min Pepper Aichholz Work Phone: [facility] 10-06-2024 09:05-0500 Respiratory rate 18 /min Pepper Aichholz Work Phone: [facility] 10-06-2024 09:05-0500 SaO2% (BldA) [Mass fraction] 96 % Pepper Aichholz Work Phone: [facility] 10-06-2024 09:05-0500 Systolic blood pressure 136 mm[Hg] Pepper Aichholz Work Phone: [facility] 10-06-2024 07:31-0500 Body height 177.8 cm Pepper Aichholz Work Phone: [facility] 10-06-2024 07:31-0500 Body weight 115.66 kg Pepper Aichholz Work Phone: [facility] 07-09-2024 13:55-0400 Diastolic blood pressure 74 mm[Hg] Pepper Aichholz Work Phone: [facility] 07-09-2024 13:55-0400 Heart rate 74 /min Pepper Aichholz Work Phone: [facility] 07-09-2024 13:55-0400 Respiratory rate 18 /min Pepper Aichholz Work Phone: [facility] 07-09-2024 13:55-0400 SaO2% (BldA) [Mass fraction] 100 % Pepper Aichholz Work Phone: [facility] 07-09-2024 13:55-0400 Systolic blood pressure 111 mm[Hg] Pepper Aichholz Work Phone: [facility] 07-09-2024 11:51-0400 Body height 175.26 cm Pepper Aichholz Work Phone: [facility] 07-09-2024 11:51-0400 Body temperature 98.6 [degF] Pepper Aichholz Work Phone: [facility] 07-09-2024 11:51-0400 Body weight 117.9 kg Pepper Aichholz Work Phone: [facility] 07-06-2024 09:44-0400 Body height 175.3 cm Pepper Aichholz [employer] Work Phone: [facility] 07-06-2024 09:44-0400 Body mass index (BMI) [Ratio] 37.18 kg/m2 Pepper Aichholz [employer] Work Phone: [facility] 07-06-2024 09:44-0400 Body temperature 98.1 [degF] Pepper Aichholz [employer] Work Phone: [facility] 07-06-2024 09:44-0400 Body weight 114.22 kg Pepper Sexton [employer] Work Phone: [facility] 07-06-2024 09:44-0400 Diastolic blood pressure 82 mm[Hg] Pepper Serratoholz [employer] Work Phone: [facility] 07-06-2024 09:44-0400 Heart rate 79 /min Pepper Sexton [employer] Work Phone: [facility] 07-06-2024 09:44-0400 Respiratory rate 19 /min Pepper Sexton [employer] Work Phone: [facility] 07-06-2024 09:44-0400 SaO2% (BldA) [Mass fraction] 93 % Pepper Serratojemal [employer] Work Phone: [facility] 07-06-2024 09:44-0400 Systolic blood pressure 126 mm[Hg] Pepper Sexton [employer] Work Phone: [facility] 06-24-2024 08:39-0400 Body height 175.26 cm [facility] 06-24-2024 08:39-0400 Body mass index (BMI) [Ratio] 42.3 kg/m2 [facility] 06-24-2024 08:39-0400 Body weight 130 kg [facility] 06-23-2024 08:50-0400 Body height 175.26 cm [facility] 06-23-2024 08:50-0400 Body mass index (BMI) [Ratio] 42.3 kg/m2 [facility] 06-23-2024 08:50-0400 Body temperature 98.2 [degF] [facility] 06-23-2024 08:50-0400 Body weight 129.89 kg [facility] 06-23-2024 08:50-0400 Diastolic blood pressure 77 mm[Hg] [facility] 06-23-2024 08:50-0400 Heart rate 91 /min [facility] 06-23-2024 08:50-0400 Respiratory rate 18 /min [facility] 06-23-2024 08:50-0400 SaO2% (BldA) [Mass fraction] 93 % [facility] 06-23-2024 08:50-0400 Systolic blood pressure 115 mm[Hg] [facility] 03-19-2024 09:37-0400 Body height 175.26 cm [facility] 03-19-2024 09:37-0400 Body mass index (BMI) [Ratio] 39.4 kg/m2 [facility] 03-19-2024 09:37-0400 Body temperature 97.8 [degF] [facility] 03-19-2024 09:37-0400 Body weight 121.1 kg [facility] 03-19-2024 09:37-0400 Diastolic blood pressure 98 mm[Hg] [facility] 03-19-2024 09:37-0400 Heart rate 94 /min [facility] 03-19-2024 09:37-0400 Respiratory rate 20 /min [facility] 03-19-2024 09:37-0400 SaO2% (BldA) [Mass fraction] 95 % [facility] 03-19-2024 09:37-0400 Systolic blood pressure 158 mm[Hg] [facility] Encounters Encounter Date Encounter Type Care Provider Facility Start: 11-04-2024 End: 11-04-2024 Refill Pepper Sexton [employer] Work Phone: [facility] Comment on above: Hypomagnesemia; Restless legs syndrome Start: 10-08-2024 End: 10-08-2024 Refill Pepper Sexton [employer] Work Phone: [facility] Comment on above: Hypothyroidism, unsp ecified type (CMS/HCC) (Primary Dx); Hypomagnesemia Start: 10-07-2024 End: 10-07-2024 Bamboo flowsheet Pepper Sexton [employer] Work Phone: [facility] Start: 10-07-2024 End: 10-07-2024 Bamboo flowsheet Pepper Carlie [employer] Work Phone: [facility] Start: 10-07-2024 End: 10-07-2024 Clinisync Result Encounter Pepper Carlie SR Work Phone: [facility] Unsolicited Start: 10-07-2024 End: 10-07-2024 Office outpatient visit 25 minutes Pepper Sexton [employer] Work Phone: [facility] Comment on above: Essential hypertensi on, benign (CMS/HCC) (Primary Dx); Morbid (severe) obesity due to excess calories (CMS/HCC); Gastro-esophageal reflux disease without esophagitis; Body mass index (BMI) 37.0-37.9, adult; GURVINDER (obstructive sleep apnea); COPD mixed type (CMS/HCC); Pulmonary hypertension (CMS/HCC); Hypothyroidism, unspecified type (CMS/HCC); Obesity (BMI 30-39.9); Mixed hyperlipidemia (CMS/HCC); Hypomagnesemia; Marijuana use; Pre-diabetes; Chronic bronchitis, unspecified chronic bronchitis type (CMS/HCC) Start: 10-07-2024 End: 10-07-2024 ambulatory PEPPER SEXTON Not Available Start: 10-06-2024 Non-patient / Non-visit Pepper lorenz Work Phone: [facility] Work Phone: Start: 10-06-2024 End: 10-06-2024 Admission to same day surgery center Pepper Sexton Work Phone: [facility] Work Phone: Start: 10-06-2024 End: 10-06-2024 ambulatory Pepper Sexton Work Phone: [facility] Work Phone: Start: 09-28-2024 End: 09-28-2024 Clinisync Result Encounter Pepper Sexton NP Work Phone: [facility] Unsolicited Start: 09-28-2024 End: 09-28-2024 Clinisync Result Encounter Pepper Carlie [employer] Work Phone: [facility] Unsolicited Start: 09-28-2024 End: 09-28-2024 Refill Pepper Aichayderholz [employer] Work Phone: [facility] Comment on above: Hypomagnesemia (Prim ирина Dx) Start: 09-14-2024 End: 09-14-2024 Refill Pepper Aichayderholz [employer] Work Phone: [facility] Comment on above: Hypomagnesemia Start: 09-14-2024 End: 09-15-2024 Refill Pepper Aichayderholz [employer] Work Phone: [facility] Comment on above: Fibromyalgia Start: 09-04-2024 End: 09-04-2024 Orders Only Pepper Carlie [employer] Work Phone: [facility] Comment on above: Hypomagnesemia (Prim ирина Dx) Start: 09-04-2024 End: 09-04-2024 Refill Pepper Rojelioholz [employer] Work Phone: [facility] Comment on above: Hypomagnesemia Start: 07-09-2024 Non-patient / Non-visit Pepper lorenz Work Phone: [facility] Work Phone: Start: 07-09-2024 End: 07-09-2024 Admission to same day surgery center Pepper Sexton Work Phone: [facility] Work Phone: Start: 07-09-2024 End: 07-09-2024 ambulatory Pepper Sexton Work Phone: [facility] Work Phone: Start: 07-06-2024 End: 07-06-2024 Bamboo flowsheet Pepper Sexton [employer] Work Phone: [facility] Start: 07-06-2024 End: 07-06-2024 Bamboo flowsheet Pepper Sexton [employer] Work Phone: [facility] Start: 07-06-2024 End: 07-06-2024 Office outpatient visit 25 minutes Pepper Sexton [employer] Work Phone: [facility] Comment on above: Essential hypertensi on, benign (CMS/HCC) (Primary Dx); Hypomagnesemia; Gastroesophageal reflux disease, unspecified whether esophagitis present; Obesity (BMI 30-39.9); Hypothyroidism, unspecified type (CMS/HCC); Needs flu shot Start: 07-06-2024 End: 07-06-2024 ambulatory PEPPER SEXTON Not Available Start: 06-30-2024 End: 06-30-2024 Bamboo flowsheet Rupert Bo DO Work Phone: [facility] Start: 06-30-2024 End: 06-30-2024 Bamboo flowsheet Rupert Bo DO Work Phone: [facility] Start: 06-30-2024 End: 06-30-2024 Postop follow up visit related to original px Rupert Bo DO Work Phone: [facility] Comment on above: 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) Start: 06-30-2024 End: 06-30-2024 ambulatory RUPERT BO Not Available Start: 06-29-2024 End: 06-29-2024 Refill Pepper Sexton [employer] Work Phone: [facility] Comment on above: Restless legs syndro me Start: 06-24-2024 End: 06-24-2024 ambulatory [facility] Work Phone: Start: 06-24-2024 End: 06-24-2024 Patient encounter procedure [facility] Work Phone: Start: 06-23-2024 End: 06-23-2024 Clinisync Result Encounter Generic External Data Provider [facility] Unsolicited Start: 06-23-2024 End: 06-23-2024 Clinisync Result Encounter Generic External Data Provider [facility] External [facility] Unsolicited Start: 06-23-2024 End: 06-23-2024 ambulatory [facility] Work Phone: Start: 06-23-2024 End: 06-23-2024 Patient encounter procedure [facility] [place] Work Phone: Start: 06-18-2024 End: 06-18-2024 Refill Agustin Stokes MD Work Phone: [facility] Comment on above: Degenerative disc di sease, cervical (Primary Dx) Start: 06-09-2024 End: 06-09-2024 Refill Pepper Sexton [employer] Work Phone: [facility] Comment on above: Hypomagnesemia questions Start: 06-03-2024 End: 06-03-2024 Bamboo flowsheet Blank B Apling [employer] Work Phone: [facility] Start: 06-03-2024 End: 06-03-2024 Bamboo flowsheet Blank B Apling [employer] Work Phone: [facility] Start: 06-03-2024 End: 06-03-2024 ambulatory BLANK B APLING Not Available Start: 06-03-2024 End: 06-03-2024 Postop follow up visit related to original px Blank B Apling [employer] Work Phone: [facility] Comment on above: 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) Start: 05-27-2024 End: 05-27-2024 Evaluation and management of inpatient KENNEDI GRESHAM [facility] Start: 05-27-2024 End: 05-27-2024 Evaluation and management of inpatient RUPERT Eboni FABIAN [facility] Start: 05-26-2024 End: 05-26-2024 Refill Tiburcio Noel NP Work Phone: [facility] Comment on above: Post-operative pain (Primary Dx) Start: 05-04-2024 Preoperative state Tiburcio Noel NP Work Phone: [facility] Start: 05-04-2024 End: 05-04-2024 ambulatory PEPPER AICHHOLZ Not Available Start: 04-30-2024 End: 04-30-2024 ambulatory RUPERT BO Not Available Start: 04-27-2024 End: 04-27-2024 ambulatory RUPERT BO [facility] Start: 04-27-2024 Encounter for other preprocedural examination [facility]ER [facility] Start: 04-09-2024 End: 04-09-2024 ambulatory PEPPER AICHHOLZ Not Available Start: 03-19-2024 End: 03-19-2024 ambulatory [facility] Work Phone: Start: 03-19-2024 End: 03-19-2024 [facility] [facility] Work Phone: Start: 03-11-2024 End: 03-11-2024 ambulatory PEPPER AICHHOLZ Not Available Start: 03-05-2024 End: 03-05-2024 ambulatory RUPERT BO Not Available Start: 02-26-2024 End: 02-26-2024 ambulatory BLANK MCFARLANE Not Available Start: 02-26-2024 End: 02-26-2024 ambulatory PEPPER AICHHOLZ Not Available Start: 02-04-2024 End: 02-04-2024 ambulatory KARUNA LOWE Not Available Start: 01-07-2024 End: 01-07-2024 ambulatory AGUSTIN STOKES Not Available Start: 11-26-2023 End: 11-26-2023 ambulatory PEPPER AICHHOLZ Not Available Start: 07-19-2022 End: 07-20-2022 ambulatory CUTTING AND CREASING PRESS OPERATOR PEPPER AICHHOLZ Facility:H1 Start: 04-04-2022 End: 04-05-2022 ambulatory CUTTING AND CREASING PRESS OPERATOR PEPPER AICHHOLZ Facility:[facility]1 Start: 02-27-2022 End: 02-28-2022 ambulatory ROSI SEXTON Facility:[facility] Start: 01-16-2022 End: 01-17-2022 ambulatory CUTTING AND CREASING PRESS OPERATOR PEPPER SERRATOHOLEulalio Facility:[facility]1 Start: 12-25-2021 End: 12-26-2021 ambulatory ROSI SERRATOHOLEulalio Facility: Procedures Date Procedure Procedure Detail Performing Clinician Start: 10-07-2024 ALL MAGNESIUM Pepper Aichholz CASTING AND LOCKER ROOM SERVICER Work Phone: Start: 10-07-2024 ALL THYROID STIM HORMONE Pepper Danez N P Work Phone: Start: 10-07-2024 Hemoglobin glycosylated a1c Pepper Herrerahhol z CASTING AND LOCKER ROOM SERVICER Work Phone: Start: 10-06-2024 Esophagogastroduodenoscopy Pepper Rojelioholz Work Phone: Start: 09-28-2024 ALL BASIC METABOLIC PANEL Pepper Danez CASTING AND LOCKER ROOM SERVICER Work Phone: Start: 09-28-2024 ALL MAGNESIUM Pepper Aichholz CASTING AND LOCKER ROOM SERVICER Work Phone: Start: 07-09-2024 Esophagogastroduodenoscopy Pepper Javierhholz Work Phone: Start: 06-23-2024 ALL MAGNESIUM Generic External Data Provider Start: 06-23-2024 ALL RENAL FUNCTION PANEL Generic Externa l Data Provider Start: 06-23-2024 ALL URIC ACID Generic External Data Provider Start: 07-19-2022 PSA screening ROSI SERRATOJAYLENEulalio Comment on above: Performed By: #### CMP, TSH, LIPID #### [facility] [address] [place] [address] Dr. Lavonne Tinoco Plan of Treatment Date Care Activity Detail Author Start: 08-11-2025 Screening for malign ant neoplasm of colon [facility] Start: 01-06-2025 End: 01-06-2025 Patient encounter procedure 01/06/2025 9:00 AM EDT [facility] [address] [place] [address] Pepper Sexton NP [address] [place] [address] [facility] Start: 12-06-2024 End: 10-08-2025 Thyrotropin [Units/volume] in Serum or Plasma TSH Lab Routine Hypothyroidism, unspecified type (CMS/HCC) Expected: 12/06/2024 (Approximate), Expires: 10/08/2025 [facility] Work Phone: Comment on above: Expected: 12/06/2024 (Approximate), Expires: 10/08/2025 Start: 12-06-2024 End: 10-08-2025 Thyroxine (T4) free [Mass/volume] in Serum or Plasma T4, free Lab Routine Hypothyroidism, unspecified type (CMS/HCC) Expected: 12/06/2024 (Approximate), Expires: 10/08/2025 [facility] Comment on above: Expected: 12/06/2024 (Approximate), Expires: 10/08/2025 Start: 10-22-2024 End: 10-08-2025 Magnesium [Mass/volume] in Serum or Plasma Magnesium Lab Routine Hypomagnesemia Expected: 10/22/2024 (Approximate), Expires: 10/08/2025 [facility] Comment on above: Expected: 10/22/2024 (Approximate), Expires: 10/08/2025 Start: 10-07-2024 End: 10-07-2025 Magnesium [Mass/volume] in Serum or Plasma Magnesium Lab Routine Hypomagnesemia Expected: 10/07/2024 (Approximate), Expires: 10/07/2025 [facility] Comment on above: Expected: 10/07/2024 (Approximate), Expires: 10/07/2025 Start: 10-07-2024 End: 10-07-2025 Thyrotropin [Units/volume] in Serum or Plasma TSH Lab Routine Hypothyroidism, unspecified type (CMS/HCC) Expected: 10/07/2024 (Approximate), Expires: 10/07/2025 [facility] Work Phone: Comment on above: Expected: 10/07/2024 (Approximate), Expires: 10/07/2025 Start: 10-07-2024 End: 10-07-2025 Thyroxine (T4) free [Mass/volume] in Serum or Plasma T4, free Lab Routine Hypothyroidism, unspecified type (CMS/HCC) Expected: 10/07/2024 (Approximate), Expires: 10/07/2025 [facility] Comment on above: Expected: 10/07/2024 (Approximate), Expires: 10/07/2025 Start: 10-07-2024 End: 10-07-2024 Patient encounter procedure [facility] Comment on above: GURVINDER (obstructive sle ep apnea) (Primary Dx); Morbid (severe) obesity due to excess calories (CMS/HCC); Gastro-esophageal reflux disease without esophagitis; Body mass index (BMI) 37.0-37.9, adult; COPD mixed type (CMS/HCC); Essential hypertension, benign (CMS/HCC); Pulmonary hypertension (CMS/HCC); Hypothyroidism, unspecified type (CMS/HCC); Obesity (BMI 30-39.9); Mixed hyperlipidemia (CMS/HCC); Hypomagnesemia; Marijuana use; Pre-diabetes Start: 10-06-2024 [facility] Start: 09-04-2024 End: 09-04-2025 Basic metabolic 1998 panel - Serum or Plasma Basic metabolic panel Lab Routine Hypomagnesemia Expected: 09/04/2024 (Approximate), Expires: 09/04/2025 [facility] Comment on above: Expected: 09/04/2024 (Approximate), Expires: 09/04/2025 Start: 09-04-2024 End: 09-04-2025 Magnesium [Mass/volume] in Serum or Plasma Magnesium Lab Routine Hypomagnesemia Expected: 09/04/2024 (Approximate), Expires: 09/04/2025 [facility] Work Phone: Comment on above: Expected: 09/04/2024 (Approximate), Expires: 09/04/2025 Start: 07-09-2024 [facility] Start: 07-06-2024 End: 07-06-2024 Patient encounter procedure [facility] Comment on above: Arrived Start: 06-30-2024 End: 06-30-2024 Patient encounter procedure [facility] Comment on above: Arrived Start: 06-09-2024 End: 06-09-2025 Basic metabolic 1998 panel - Serum or Plasma Basic metabolic panel Lab Routine Hypomagnesemia Expected: 06/09/2024 (Approximate), Expires: 06/09/2025 [facility] Work Phone: Comment on above: Expected: 06/09/2024 (Approximate), Expires: 06/09/2025 Start: 06-09-2024 End: 06-09-2025 Magnesium [Mass/volume] in Serum or Plasma Magnesium Lab Routine Hypomagnesemia Expected: 06/09/2024 (Approximate), Expires: 06/09/2025 [facility] Comment on above: Expected: 06/09/2024 (Approximate), Expires: 06/09/2025 Start: 06-03-2024 End: 06-03-2024 Patient encounter procedure 06/03/2024 8:45 AM EDT Office Visit [facility] [address] [place] [id number] Blank Mcfarlane, REMBERTO [address] [place] [address] [facility] Start: 05-27-2024 End: 05-27-2024 Patient encounter procedure 05/27/2024 10:40 AM EDT Office Visit [facility] [address] [facility] [place] [address] Karuna Carranza PA [facility] [place] [address] [facility] Start: 05-27-2024 End: 05-27-2024 Patient encounter procedure 05/27/2024 7:30 AM EDT Procedure Visit [facility] Rupert Bo DO [address] [place] [address] [facility] Start: 1965 Screening for malign ant neoplasm of colon [facility] Patient Education [facility] Work Phone: Renal function 1999 panel - Serum or Plasma [facility] Renal function 1999 panel - Serum or Plasma [facility] Payers Date Payer Category Payer Self-pay 2019 [facility] BCBS [id number] 2019 Unknown BCBS BCBS [id number] 2019-Present [phone] [address] [place], [place] [id number] 1967 Unknown [id number] 2.16.840.1.270861.3.579.2 .593 1967 Unknown [id number] 2.16.840.1.002097.3.579.2 .593 1967 Unknown [id number] 2.16.840.1.499388.3.579.2 .593 1967 Unknown [id number] 2.16.840.1.539593.3.579.2 .593 1967 Unknown [id number] 2.16.840.1.575097.3.579.2 .593 1967 Unknown [id number] 2.16.840.1.517661.3.579.2 .1286 1967 Unknown [id number] 2.16.840.1.903561.3.579.2 .1286 1967 Unknown [id number] 2.16.840.1.010881.3.579.2 .1285 1967 Unknown [id number] 2.16.840.1.390328.3.579.2 .1285 1967 Unknown [id number] 2.16.840.1.144721.3.579.2 .1285 1967 Unknown [id number] 2.16.840.1.270645.3.579.2 .128 1967 Unknown [id number] 2.16.840.1.431666.3.579.2 .1258 1967 Unknown [id number] 2.16.840.1.055492.3.579.2 .1258 1967 Unknown [id number] 2.16840.1.938918.3.579.2 .1258 1967 Unknown [id number] 2.16.840.1.427530.3.579.2 .1258 1967 Unknown [id number] 2.16.840.1.123844.3.579.2 .1258 1967 Unknown [id number] 2.16.840.1.447994.3.579.2 .1258 1967 Unknown [id number] 2.16.840.1.016791.3.579.2 .1258 1967 Unknown [id number] 2.16.840.1.395852.3.579.2 .1258 1967 Unknown [id number] 2.16.840.1.853503.3.579.2 .1258 1967 Unknown [id number] 2.16.840.1.967011.3.579.2 .1258 1967 Unknown [id number] 2.16.840.1.495733.3.579.2 .1258 1967 Unknown [id number] 2.16.840.1.286828.3.579.2 .1259 1967 Unknown [id number] 2.16.840.1.189678.3.579.2 .1259 1967 Unknown [id number] 2.16.840.1.686951.3.579.2 .1259 1959 Unknown [id number] 1959 Unknown [id number] Unknown [employer] BC/BS [id number] Unknown [facility] [id number] Unknown [id number] 2.16.840.1.390497.3.579.2 .531 Unknown [id number] 2.16.840.1.400083.3.579.2 .531 Social History Date Type Detail Facility Start: 03-19-2024 Tobacco smoking status [facility] Current some day smoker [facility] Start: 1965 Sex Assigned At Male [facility] Start: 04-30-2024 End: 06-23-2024 Tobacco smoking status [facility] Ex-smoker (finding) [facility] History of tobacco use Current smoker [facility] History of tobacco use Cigar Smoker [facility] Start: 04-30-2024 Tobacco use and exposure Smokeless tobacco non-user [facility] Start: 06-03-2024 End: 10-07-2024 Alcoholic beverage intake Current drinker of alcohol (finding) [facility] Start: 11-25-2023 End: 03-11-2024 History of Social function [facility] Start: 11-25-2023 End: 03-11-2024 Social connection and isolation panel [facility] Do you belong to any clubs or organizations such as confucianist groups, unions, fraternal or athletic groups, or school groups? Yes [facility] Are you now , , , , never or living with a partner? [facility] How often to you hav e a drink containing alcohol? 4 or more times a week [facility] How many standard dr inks containing alcohol do you have on a typical day? 5 or 6 [facility] How often do you hav e 6 or more drinks on 1 occasion? Weekly [facility] How hard is it for y ou to pay for the very basics like food, housing, medical care, and heating Somewhat hard [facility] Do you feel stress - tense, restless, nervous, or anxious, or unable to sleep at night because your mind is troubled all the time - these days [OSQ] To some extent [facility] (I/We) worried whedagmar er (my/our) food would run out before (I/we) got money to buy more. Never true [facility] In the past 12 month s, has lack of transportation kept you from medical appointments or from getting medications? No [facility] In the past 12 month s, was there a time when you were not able to pay the mortgage or rent on time? No [facility] Start: 12-29-2023 Alcohol Comment caffeine: 1-2 cups per day [facility] Start: 1965 Sex assigned at Not on file [facility] Start: 07-09-2024 End: 10-06-2024 Tobacco smoking status NHIS Never smoked tobacco (finding) [facility] Start: 10-06-2024 Sex Male (finding) [facility] Goals Date Patient Goal Desired Activity /State Clinical Notes 05-26-2024 to 10-07-2024 Pepper Sexton NP - 10/07/2024 9:40 AM Kerrie Sexton NP - 10/07/2024 9:00 AM Kerrie Sexton NP - 10/07/2024 5:47 AM ESTPepper Sexton NP - 10/07/2024 5:44 AM ESTPatient Instructions Note Date & Type Note Facility 10-07-2024 History of Presen t illness Narrative Associated Problem(s): Marijuana use Gummies and smoking Images from the original note were not included. Abram Guillaume is a 58 y.o. male presents with chief complaint of Hypertension HPI: Hypertension This is a chronic problem. The current episode started more than 1 year ago. The problem is unchanged. The problem is controlled. Associated symptoms include shortness of breath. Pertinent negatives include no blurred vision, chest pain or peripheral edema (LLE). There are no associated agents to hypertension. Risk factors for coronary artery disease include dyslipidemia, male gender, obesity and smoking/tobacco exposure. Past treatments include beta blockers, calcium channel blockers and angiotensin blockers. The current treatment provides significant improvement. There are no compliance problems. Hypertensive end-organ damage includes kidney disease. There is no history of CAD/VT. Identifiable causes of hypertension include a thyroid problem. GERD He complains of heartburn and wheezing. He reports no abdominal pain, no chest pain, no dysphagia, no nausea, no sore throat or no water brash. This is a chronic problem. The current episode started more than 1 year ago. The problem occurs occasionally. The problem has been unchanged. The symptoms are aggravated by certain foods, caffeine, smoking and ETOH. Associated symptoms include fatigue. Pertinent negatives include no anemia, melena, muscle weakness, orthopnea or weight loss. Risk factors include obesity and smoking/tobacco exposure. He has tried a PPI for the symptoms. The treatment provided significant relief. Past procedures include an EGD. Thyroid Problem Presents for follow-up visit. Symptoms include fatigue and weight gain. Patient reports no anxiety, cold intolerance, constipation, diarrhea, heat intolerance, tremors or weight loss. The symptoms have been stable. SUBJECTIVE: MEDICATIONS: Current Outpatient Medications Medication Instructions albuterol HFA (Ventolin HFA) 90 mcg/act inhaler 2 puffs, Inhalation, Every 6 hours PRN amLODIPine (NORVASC) 10 mg, Oral, Daily budesonide-formoterol (Symbicort) 160-4.5 MCG/ACT inhaler 2 puffs, Inhalation, 2 times daily, Rinse mouth with water after use to reduce aftertaste and incidence of candidiasis. Do not swallow. doxepin (SINEQUAN) 100 mg, Oral, Nightly gabapentin (Neurontin) 600 MG tablet 1 TABLET BY MOUTH TWICE DAILY levothyroxine (SYNTHROID, LEVOXYL) 100 mcg, Oral, Daily before breakfast magnesium oxide 500 mg, Oral, 3 times daily montelukast (SINGULAIR) 10 mg, Oral, Nightly nebivolol (BYSTOLIC) 10 mg, Oral, Daily omeprazole (PRILOSEC) 40 mg, Oral, Daily before breakfast, Do not crush or chew. pravastatin (Pravachol) 20 MG tablet 1 tablet, Daily spironolactone (ALDACTONE) 50 mg, Daily valsartan (DIOVAN) 320 mg, Oral, Daily ALLERGIES: No Known Allergies REVIEW OF SYMPTOMS: Review of Systems Constitutional: Positive for fatigue and weight gain. Negative for activity change, appetite change, unexpected weight change and weight loss. HENT: Negative for ear pain, nosebleeds, sneezing, sore throat, trouble swallowing and voice change. Eyes: Negative for blurred vision, pain, discharge and visual disturbance. Respiratory: Positive for shortness of breath and wheezing. Negative for apnea and chest tightness. Cardiovascular: Positive for leg swelling. Negative for chest pain. Gastrointestinal: Positive for heartburn. Negative for abdominal distention, abdominal pain, blood in stool, constipation, diarrhea, dysphagia, melena and nausea. Genitourinary: Negative for decreased urine volume, difficulty urinating, dysuria and hematuria. Musculoskeletal: Negative for muscle weakness. Skin: Positive for rash. Negative for color change. Neurological: Negative for dizziness, tremors and seizures. Psychiatric/Behavioral: Negative for agitation, decreased concentration, hallucinations, self-injury and suicidal ideas. The patient is not nervous/anxious. Hematological: Negative for adenopathy. Does not bruise/bleed easily. Endocrine: Negative for cold intolerance, heat intolerance, polydipsia and polyuria. Allergic/Immunologic: Negative for environmental allergies and food allergies. PAST MEDICAL HISTORY Past Medical History: Diagnosis Date Abnormal stress test Atopic dermatitis 11/26/2023 Cervical radiculopathy 11/26/2023 Cough in adult 11/26/2023 Degenerative disc disease, cervical 11/26/2023 Dyspnea Fibromyalgia History of hernia repair History of herniated intervertebral disc Hyperglycemia Hyperlipidemia (CMS/HCC) Hypokalemia Hypomagnesemia Hypothyroidism (CMS/HCC) Left leg swelling 11/26/2023 Marijuana use 11/26/2023 Orthopedic hardware present 11/26/2023 Osteoarthritis Paresthesia of both hands 11/26/2023 Pinched nerve 11/26/2023 Psoriasis (CMS/HCC) 11/26/2023 Restless legs Rheumatoid arthritis (CMS/HCC) Thyroid disease (CMS/HCC) Venous reflux 11/26/2023 Past Surgical History: Procedure Laterality Date FOOT SURGERY HERNIA REPAIR HERNIA REPAIR LEG SURGERY 2012 fractured leg ULNAR NERVE REPAIR Right 05/27/2024 Dr. Bo family history includes Hypertension in his father. OBJECTIVE: Visit Vitals BP 138/84 (BP Location: Left arm, Patient Position: Sitting, BP Cuff Size: Large adult) Pulse 92 Temp 97.8 F (Temporal) Resp 22 Ht 5' 9 Wt 280 lb 12.8 oz SpO2 96% BMI 41.47 kg/m Smoking Status Former BSA 2.49 m Physical Exam Vitals and nursing note reviewed. Constitutional: General: He is not in acute distress. Appearance: Normal appearance. He is obese. He is not ill-appearing, toxic-appearing or diaphoretic. HENT: Head: Normocephalic. Right Ear: External ear normal. Left Ear: External ear normal. Nose: Nose normal. Mouth/Throat: Mouth: Mucous membranes are moist. Pharynx: Oropharynx is clear. Eyes: Extraocular Movements: Extraocular movements intact. Conjunctiva/sclera: Conjunctivae normal. Neck: Vascular: No carotid bruit. Cardiovascular: Rate and Rhythm: Normal rate and regular rhythm. Pulses: Normal pulses. Heart sounds: Normal heart sounds. Pulmonary: Effort: Pulmonary effort is normal. Breath sounds: Wheezing (exp wheeze) present. Abdominal: General: Bowel sounds are normal. Palpations: Abdomen is soft. Musculoskeletal: Cervical back: Neck supple. Lymphadenopathy: Cervical: No cervical adenopathy. Skin: General: Skin is warm and dry. Capillary Refill: Capillary refill takes 2 to 3 seconds. Neurological: General: No focal deficit present. Mental Status: He is alert. Psychiatric: Mood and Affect: Mood normal. Behavior: Behavior normal. Thought Content: Thought content normal. Judgment: Judgment normal. ASSESSMENT AND PLAN: No follow-ups on file. Problem List Items Addressed This Visit Hyperlipidemia (CMS/HCC) On statin therapy Labs yearly and prn dose changes Essential hypertension, benign (CMS/HCC) - Primary Please check blood pressure daily and record DASH diet Limit caffeine Take medication as directed Contact office if chest pain, pressure, dizziness, shortness of breath, swelling legs Recommend slow position changes Current meds: amlodipine, bystolic, valsartan Relevant Medications valsartan (Diovan) 320 MG tablet Hypothyroidism (CMS/HCC) Current med: levothyroxine Check labs yearly and prn dose changes or symptomatic Has had 30 pound weight gain Relevant Orders TSH T4, free Hypomagnesemia Currently taking magnesium supplement of 500mg TID Will check labs Relevant Orders Magnesium Marijuana use Gummies and smoking Pulmonary hypertension (CMS/HCC) Per ECHO 02/12 Does not use PAP Current meds: aldactone, amlodipine, valsartan and bystolic GURVINDER (obstructive sleep apnea) You have a diagnosis of obstructive sleep apnea. It is recommended that you wear your PAP device any time while in bed sleeping. Not using the PAP device can increase your risk of elevated/uncontrolled high blood pressure, atrial fibrillation, heart attack, stroke, or sudden . Compliance: not complaint Hours used:NA Overall improvement in daily function:NA RESOLVED: Obesity (BMI 30-39.9) Pre-diabetes Will check A1c test: recent lab had elevated glucose A1c 5.6%, 10/07/24 Relevant Orders POCT glycosylated hemoglobin (Hb A1C) docked device (Completed) Morbid (severe) obesity due to excess calories (CMS/HCC) Discussed with patient their BMI (actual, verses recommended). We have also discussed lifestyle modifications: attempts to perform physical activity as chronic conditions allow, also to monitor dietary intake: increasing protein/fruits/veggies and lowering carb intake (unless contraindicated). Limit sodas, juices, and sugary drinks. Has gained 30 pounds since 07/16 Recommend weight watchers Gastro-esophageal reflux disease without esophagitis Recommendations: freq small meals, nothing to eat or drink at least 2 hours prior to bed, limit caffeine, alcohol, as well as spicy foods Meds to limit or avoid if possible: NSAIDS Elevate HOB if possible Most recent EGD: 09/2024 Current meds: omeprazole Does continue to have hypomagnesium levels, cannot tolerate off of PPI therapy Body mass index (BMI) 37.0-37.9, adult COPD mixed type (CMS/HCC) Current meds: albuterol prn and symbicort Sporadic use of symbicort, recommend regular use Other Visit Diagnoses Chronic bronchitis, unspecified chronic bronchitis type (CMS/HCC) Relevant Medications budesonide-formoterol (Symbicort) 160-4.5 MCG/ACT inhaler Associated Problem(s): Pre-diabetes Will check A1c test: recent lab had elevated glucose A1c 5.6%, 10/07/24 Associated Problem(s): Hypomagnesemia Currently taking magnesium supplement of 500mg TID Will check labs Associated Problem(s): Hyperlipidemia (CMS/HCC) On statin therapy Labs yearly and prn dose changes Associated Problem(s): Morbid (severe) obesity due to excess calories (CMS/HCC) Discussed with patient their BMI (actual, verses recommended). We have also discussed lifestyle modifications: attempts to perform physical activity as chronic conditions allow, also to monitor dietary intake: increasing protein/fruits/veggies and lowering carb intake (unless contraindicated). Limit sodas, juices, and sugary drinks. Has gained 30 pounds since 07/16 Recommend weight watchers Associated Problem(s): Hypothyroidism (CMS/HCC) Current med: levothyroxine Check labs yearly and prn dose changes or symptomatic Has had 30 pound weight gain Associated Problem(s): Gastro-esophageal reflux disease without esophagitis Recommendations: freq small meals, nothing to eat or drink at least 2 hours prior to bed, limit caffeine, alcohol, as well as spicy foods Meds to limit or avoid if possible: NSAIDS Elevate HOB if possible Most recent EGD: 09/2024 Current meds: omeprazole Does continue to have hypomagnesium levels, cannot tolerate off of PPI therapy Associated Problem(s): Pulmonary hypertension (CMS/HCC) Per ECHO 02/12 Does not use PAP Current meds: aldactone, amlodipine, valsartan and bystolic Associated Problem(s): Essential hypertension, benign (CMS/HCC) Please check blood pressure daily and record DASH diet Limit caffeine Take medication as directed Contact office if chest pain, pressure, dizziness, shortness of breath, swelling legs Recommend slow position changes Current meds: amlodipine, bystolic, valsartan Associated Problem(s): COPD mixed type (CMS/HCC) Current meds: albuterol prn and symbicort Sporadic use of symbicort, recommend regular use Associated Problem(s): GURVINDER (obstructive sleep apnea) You have a diagnosis of obstructive sleep apnea. It is recommended that you wear your PAP device any time while in bed sleeping. Not using the PAP device can increase your risk of elevated/uncontrolled high blood pressure, atrial fibrillation, heart attack, stroke, or sudden . 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 documented in this encounter [facility] [facility] 10-06-2024 History and physical note Note Date/Time October 06, 2024 8:32am [facility] [address] [place] [address] Gastroenterology H&P Signed Patient: Abram Guillaume MR#: [id number] 4 : 1965 Acct:[id number] Age/Sex: 58 / M Adm Date: 5 Loc: Room: Type: [facility] Attending Dr: James Elaine MD Copies to: MD Pepper Werner NP-C~ Date of Service: 10/06/2024 HISTORY & PHYSICAL: Patient's history with special attention to the cardiovascular, pulmonary systems and the current problem was reviewed with the patient immediately prior to the procedure. Present medications and doses reviewed in the EMR. Allergies and pertinent laboratory tests were also reviewedat this time in the EMR. The physical examination, as below, was then performed. Indication, assessment and HPI: 58-year-old man with history of esophagitis herefor EGD to assess for Diana's Family history of GI malignancy? No PHYSICAL EXAMINATION General appearance: NAD Skin: No jaundice Head: NC/AT Eyes: Anicteric Neck: Supple Lungs: Normal respiratory effort, no use of accessory muscles Abdomen: nondistended Neuro: Ox3. REVIEW OF SYSTEMS Constitutional: Denies malaise, fevers Cardiovascular: Denies chest pain, palpitations Respiratory: Denies shortness of breath, wheezing Gastrointestinal: As per HPI Genitourinary: Denies dysuria, polyuria Musculoskeletal: Denies joint swelling, joint stiffness Neurological: Denies confusion, numbness, tingling Endocrine: Denies fatigue Written informed consent obtained from the patient. Risks (including but not limited to perforation, infection, bloating, bleeding, need for emergent surgeryand loss of life), benefits and alternatives explained and questions answered. The patient verbalized understanding. Based on history patient is an appropriate candidate for the procedure. James Elaine M.D. Documented By: James Elaine MD 10/06/24 0831 Signed By: <Electronically signed by James Elaine MD> 10/06/2432 [facility] Work Phone: [phone]) 770-371001-14-2025 [place] [address] EGD Procedure Note Signed Patient: Abram Guillaume MR#: [id number] 4 : 1965 Acct:[id number] Age/Sex: 58 / M Adm Date: 5 Loc: Room: Type: [facility] Attending Dr: James Elaine MD Copies to: MD Pepper Werner NP-C~ Esophagogastroduodenoscopy Date/Provider Date: 10/06/2024 James Elaine MD Procedure Findings: Procedure: EGD with biopsy Indication: 58-year-old man with history of esophagitis here for EGD to assess for Diana's Pre-operative diagnosis: History of esophagitis Post-operative diagnosis: [place]-colored mucosa in the esophagus otherwise normal EGD Sedation: propofol per anesthesia dept O2 oximetry, hemodynamic monitoring was performed pre, during, and post procedure. Patient was identified, H&P completed, patient was given full explanation of the procedure as well as associatedrisks and written consent wasobtained prior to procedure. Patient expressed complete understanding of the procedure as well as alternatives to the procedure and to anesthesia and agreed to proceed with the procedure as indicated. Patient was immediately reassessed prior to IV sedation. Following IV sedation, patient was placed in the left lateral decubitus position. Bite block was inserted. Endoscope was passed through the mouth, into the esophagus. Endoscope was advanced into the stomach through the pyloricchannel and into the 2nd portion of duodenum by direct visualization. Endoscopewas withdrawn into the stomach and retroflexion was performed. The endoscope was straightened,the stomach was decompressed. Endoscope was withdrawn into the esophagus then completely removed with the findings as below. Findings: DUODENUM: bulb and descending portion appeared normal. STOMACH: pyloric channel, antrum, body, fundus and cardia, including retroflexedviews appear normal. ESOPHAGUS: A 1 cm polyp salmon-colored mucosa noted between 40 cm and 41 cm fromthe incisors, biopsied using biopsy forceps to assess for Diana's. Diaphragmatic hiatus was 40 cm from incisors and GE junction (upper margin of gastric folds) was at 40 cm from incisors. Squamocolumnar junction was at 40 cmfrom incisors. Biopsy taken: Yes Complications: None EBL: Minimal Recommendations: -Continue omeprazole 40 mg daily -Follow up pathology Following a period of recovery, patient was seen and given full explanation of the procedure. Patient tolerated the procedure well and will be discharged in satisfactory, stable condition. James Elaine M.D. Documented By: James Elaine MD 10/06/24 0832 Signed By: 10/06/24 0834 [facility]01-14-2025 [place] [address] Gastroenterology H&P Signed Patient: Abram Guillaume MR#: [id number] 4 : 1965 Acct:[id number] Age/Sex: 58 / M Adm Date: 5 Loc: Room: Type: [facility] Attending Dr: James Elaine MD Copies to: MD Pepper Werner NP-C~ Date of Service: 10/06/2024 HISTORY & PHYSICAL: Patient's history with special attention to the cardiovascular, pulmonary systems and the current problem was reviewed with the patient immediately prior to the procedure. Present medications and doses reviewed in the EMR. Allergies and pertinent laboratory tests were also re viewedat this time in the EMR. The physical examination, as below, was then performed. Indication, assessment and HPI: 58-year-old man with history of esophagitis herefor EGD to assess for Diana's Family history of GI malignancy? No PHYSICAL EXAMINATION General appearance: NAD Skin: No jaundice Head: NC/AT Eyes: Anicteric Neck: Supple Lungs: Normal respiratory effort, no use of accessory muscles Abdomen: nondistended Neuro: Ox3. REVIEW OF SYSTEMS Constitutional: Denies malaise, fevers Cardiovascular: Denies chest pain, palpitations Respiratory: Denies shortness of breath, wheezing Gastrointestinal: As per HPI Genitourinary: Denies dysuria, polyuria Musculoskeletal: Denies joint swelling, joint stiffness Neurological: Denies confusion, numbness, tingling Endocrine: Denies fatigue Written informed consent obtained from the patient. Risks (including but not limited to perforation, infection, bloating, bleeding, need for emergent surgeryand loss of life), benefits and alternatives explained and questions answered. The patient verbalized understanding. Based on history patient is an appropriate candidate for the procedure. James Elaine M.D. Documented By: James Elaine MD 10/06/24830 Signed By: 10/06/24831 [facility]01-06-2025 History of Present illness Narrative * Pepper Sexton NP - 09/28/2024 6:03 PM ESTAssociated Problem(s): Hypomagnesemia Pt has been taking magnesium oxide 400mg TID for several months for low magnesium is also under thecare of Nephrology for the same. Critical value today of 0.8 on Magnesium. I did speak with pt on the phone: no chest pain/pressure, does have some muscle spasm in legs. No heart palpitations. It is of note, he contacted the office on 09/14/24 for refill of magnesium, it took the pharmacy over 5 days to get it ready, he reports he was out of med for approx 4-5 days , but has been taking again forapprox 1 week. I told him I would increase magnesium oxide to 500mg TID, and reach out to Nephrology as well to see if they have any other suggestions regarding this matter. documented in this encounterHedrick Medical [id number] [facility] History of Present illness Narrative* Pepper Sexton NP - 07/06/2024 10:30 AM EDTAssociated Problem(s): Needs flu shot declines * Pepper Sexton NP - 07/06/2024 10:28 AM EDTAssociated Problem(s): Hypomagnesemia Continue with TID magnesium and fu with Nephrology * Pepper Sexton NP - 07/06/2024 10:28 AM EDTAssociated Problem(s): Hypothyroidism (CMS/HCC) No med dose changes * Pepper Sexton NP - 07/06/2024 10:28 AM EDTAssociated Problem(s): GERD (gastroesophageal reflux disease) Has upcoming scope with GI, has been off his PPI/[id number] for up coming EGD etc Continue with GI * Pepper Sexton NP - 07/06/2024 10:27 AM EDTAssociated Problem(s): Essential hypertension, benign (CMS/HCC) At goal no med dose chagnes * IRENE BOOTH - 07/06/2024 9:40 AM EDT Pt is having pain on the right side to the back of the head towards the left side, pt is also feeling fatigue, and neck is feeling heavy. Pt goes Saturday for his scope, been off of the Pepcid, omeprazole, and meloxicam for almost 2 weeksand is only eating once daily Pt needs a refill on the mag-ox 90days Abram Guillaume is a 58 y.o. male presents with chief complaint of No chief complaint on file. 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 The current episode started more than 1 year ago. The problem is unchanged. The problem is controlled. Associated symptoms include neck pain. Pertinent negatives include noblurred vision, chest pain, palpitations or peripheral edema (LLE). There are no associated agents to hypertension. Risk factors for coronary artery disease include obesity and male gender. Past treatments include beta blockers, calcium channel blockers and angiotensin blockers. The current treatment provides significant improvement. There are no compliance problems. Hypertensive end-organ damageincludes kidney disease. Identifiable causes of hypertension include a thyroid problem. Thyroid Problem Presents for follow-up visit. Symptoms include diarrhea and fatigue. Patient reports no anxiety, cold intolerance, constipation, depressed mood, heat intolerance, palpitations or tremors. The symptoms have been stable. SUBJECTIVE: MEDICATIONS: Current Outpatient Medications Medication Instructions albuterol HFA (Ventolin HFA) 90 mcg/act inhaler 2 puffs, Inhalation, Every 6 hours PRN amLODIPine (NORVASC) 10 mg, Oral, Daily budesonide-formoterol (Symbicort) 160-4.5 MCG/ACT inhaler 2 puffs, Inhalation, 2 times daily, [place] with water after use to reduce aftertaste and incidence of candidiasis. Do not swallow. doxepin (SINEQUAN) 100 mg, Oral, Nightly gabapentin (Neurontin) 600 MG tablet 1 TABLET BY MOUTH TWICE DAILY levothyroxine (SYNTHROID, LEVOXYL) 100 mcg, Oral, Daily before breakfast magnesium oxide (MAG-OX) 400 mg, Oral, 3 times daily montelukast (SINGULAIR) 10 mg, Oral, Nightly nebivolol (BYSTOLIC) 10 mg, Oral, Daily pravastatin (Pravachol) 20 MG tablet 1 tablet, Daily spironolactone (ALDACTONE) 50 mg, Daily valsartan (DIOVAN) 320 mg, Oral, Daily ALLERGIES: No Known Allergies REVIEW OF SYMPTOMS: Review of Systems Constitutional: Positive for fatigue. Negative for activity change, appetite change and unexpected weight change. HENT: Negative for ear pain, nosebleeds, sneezing, trouble swallowing and voice change. Eyes: Negative for blurred vision, pain, discharge and visual disturbance. Respiratory: Negative for apnea, chest tightness and wheezing. Cardiovascular: Negative for chest pain, palpitations and leg swelling. Gastrointestinal: Positive for diarrhea. Negative for abdominal distention, blood in stool and constipation. Genitourinary: Negative for decreased urine volume, difficulty urinating, dysuria and hematuria. Musculoskeletal: Positive for neck pain. Skin: Negative for color change. Neurological: Negative for dizziness, tremors and seizures. Psychiatric/Behavioral: Negative for agitation, decreased concentration, hallucinations, self-injury and suicidal ideas. The patient is not nervous/anxious. Hematological: Negative for adenopathy. Does not bruise/bleed easily. Endocrine: Negative for cold intolerance, heat intolerance, polydipsia and polyuria. Allergic/Immunologic: Negative for environmental allergies and food allergies. PAST MEDICAL HISTORY Past Medical History: Diagnosis Date Abnormal stress test Atopic dermatitis 11/26/2023 Cervical radiculopathy 11/26/2023 Cough in adult 11/26/2023 Degenerative disc disease, cervical 11/26/2023 Dyspnea Fibromyalgia History of hernia repair History of herniated intervertebral disc Hyperglycemia Hyperlipidemia (CMS/HCC) Hypokalemia Hypomagnesemia Hypothyroidism (CMS/HCC) Left leg swelling 11/26/2023 Marijuana use 11/26/2023 Orthopedic hardware present 11/26/2023 Osteoarthritis Paresthesia of both hands 11/26/2023 Pinched nerve 11/26/2023 Psoriasis (CMS/HCC) 11/26/2023 Restless legs Rheumatoid arthritis (CMS/HCC) Thyroid disease (CMS/HCC) Venous reflux 11/26/2023 Past Surgical History: Procedure Laterality Date FOOT SURGERY HERNIA REPAIR HERNIA REPAIR LEG SURGERY 2012 fractured leg ULNAR NERVE REPAIR Right 05/27/2024 Dr. Bo family history includes Hypertension in his father. OBJECTIVE: Visit Vitals BP 126/82 (BP Location: Left arm, Patient Position: Sitting, BP Cuff Size: Adult long) Pulse 79 Temp 98.1 F (Temporal) Resp 19 Ht 5' 9 Wt 251 lb 12.8 oz SpO2 93% BMI 37.18 kg/m Smoking Status Former BSA 2.36 m Physical Exam Vitals and nursing note reviewed. Constitutional: Appearance: Normal appearance. HENT: Head: Normocephalic. Right Ear: External ear normal. Left Ear: External ear normal. Nose: Nose normal. Mouth/Throat: Mouth: Mucous membranes are moist. Pharynx: Oropharynx is clear. Eyes: Extraocular Movements: Extraocular movements intact. Conjunctiva/sclera: Conjunctivae normal. Neck: Vascular: No carotid bruit. Cardiovascular: Rate and Rhythm: Normal rate and regular rhythm. Pulses: Normal pulses. Heart sounds: Normal heart sounds. Pulmonary: Effort: Pulmonary effort is normal. Breath sounds: Normal breath sounds. Musculoskeletal: Cervical back: Neck supple. Right lower leg: No edema. Left lower leg: Edema present. Comments: Cervical near full ROM Lymphadenopathy: Cervical: No cervical adenopathy. Skin: General: Skin is warm and dry. Capillary Refill: Capillary refill takes 2 to 3 seconds. Findings: Rash (LLE) present. Neurological: General: No focal deficit present. Mental Status: He is alert. Psychiatric: Mood and Affect: Mood normal. Behavior: Behavior normal. Thought Content: Thought content normal. Judgment: Judgment normal. ASSESSMENT AND PLAN: No follow-ups on file. Problem List Items Addressed This Visit GERD (gastroesophageal reflux disease) Has upcoming scope with GI, has been off his PPI/[id number] for up coming EGD etc Continue with GI Essential hypertension, benign (CMS/HCC) - Primary At goal no med dose chagnes Hypothyroidism (CMS/HCC) No med dose changes Hypomagnesemia Continue with TID magnesium and fu with Nephrology Relevant Medications magnesium oxide (Mag-Ox) 400 MG tablet Obesity (BMI 30-39.9) Needs flu shot declines documented in this encounterHedrick Medical [id number] History of Present illness Narrative* Rupert Bo, - 06/30/2024 9:30 AM EDT Images from the original note were not included. HISTORY OF PRESENT ILLNESS: Abram Guillaume is an 58 y.o. @ male. Follow up RT ulnar nerve release RT elbow 5 weeks s/p RT ulnar nerve decompression (DOS 05/27/24), States he is doing good, denies pain. N/T in RF, LF unchanged since last visit, not much change since surgery. Scar well healed. 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 MEDICATION: Current Outpatient Medications on File Prior to Visit Medication Sig Dispense Refill albuterol HFA (Ventolin HFA) 90 mcg/act inhaler Inhale 2 puffs every 6 (six) hours if needed for wheezing or shortness of breath 18 g 1 amLODIPine (Norvasc) 10 MG tablet Take 1 tablet (10 mg) by mouth Daily 90 tablet 1 budesonide-formoterol (Symbicort) 160-4.5 MCG/ACT inhaler Inhale 2 puffs in the morning and 2 puffsbefore bedtime. Rinse mouth with water after use to reduce aftertaste and incidence of candidiasis.Do not swallow.. 10.2 g 5 doxepin (SINEquan) 10 MG/ML solution Take 10 mL (100 mg) by mouth at bedtime 900 mL 1 famotidine (Pepcid) 20 MG tablet 2 pills in the am and 1 pill at bedtime 90 tablet 2 gabapentin (Neurontin) 600 MG tablet 1 TABLET BY MOUTH TWICE DAILY 60 tablet 2 ibuprofen 200 MG tablet Take 200 mg by mouth every 6 (six) hours if needed levothyroxine (Synthroid, Levoxyl) 100 MCG tablet Take 1 tablet (100 mcg) by mouth in the morning. Take before meals. 90 tablet 1 magnesium oxide (Mag-Ox) 400 MG tablet Take 1 tablet (400 mg) by mouth in the morning and 1 tablet (400 mg) in the evening and 1 tablet (400 mg) before bedtime. 90 tablet 1 meloxicam (Mobic) 15 MG tablet TAKE 1 TABLET BY MOUTH EVERY DAY 90 tablet 4 montelukast (Singulair) 10 MG tablet Take 1 tablet (10 mg) by mouth at bedtime 90 tablet 1 nebivolol (Bystolic) 10 MG tablet Take 1 tablet (10 mg) by mouth Daily 90 tablet 1 omeprazole (PriLOSEC) [address] capsule Take 1 capsule by mouth Daily pravastatin (Pravachol) 20 MG tablet Take 1 tablet by mouth Daily spironolactone (Aldactone) 50 MG tablet Take 50 mg by mouth Daily valsartan (Diovan) 320 MG tablet Take 1 tablet (320 mg) by mouth Daily 90 tablet 1 [DISCONTINUED] gabapentin (Neurontin) 600 MG tablet 1 TABLET BY MOUTH TWICE DAILY 60 tablet 1 No current facility-administered medications on file prior to visit. MEDICAL HISTORY: Past Medical History: Diagnosis Date Abnormal stress test Atopic dermatitis 11/26/2023 Cervical radiculopathy 11/26/2023 Cough in adult 11/26/2023 Degenerative disc disease, cervical 11/26/2023 Dyspnea Fibromyalgia History of hernia repair History of herniated intervertebral disc Hyperglycemia Hyperlipidemia (CMS/HCC) Hypokalemia Hypomagnesemia Hypothyroidism (CMS/HCC) Left leg swelling 11/26/2023 Marijuana use 11/26/2023 Orthopedic hardware present 11/26/2023 Osteoarthritis Paresthesia of both hands 11/26/2023 Pinched nerve 11/26/2023 Psoriasis (CMS/HCC) 11/26/2023 Restless legs Rheumatoid arthritis (CMS/HCC) Thyroid disease (CMS/HCC) Venous reflux 11/26/2023 ALLERGIES: No Known Allergies VITALS: Visit Vitals Smoking Status Former PHYSICAL EXAM: Ortho Exam LEFT ELBOW Incision healing nicely Continues to have weak interosseous and diminished sensation ulnar distribution Good ROM of elbow ASSESSMENT: ICD-10-CM 1. Cubital tunnel syndrome on right G56.21 S/P ulnar nerve decompression PLAN: Reviewed post op restrictions and expectations. I answered all of the patient's questions. Follow up as needed, any issues/concerns follow up sooner. Dr. Bo obtained history and examined the patient, I am acting as scribe for Dr. Bo/lloyd Bo D.O. documented in this encounterHedrick Medical [id number] Telephone encounter Note* Telephone Encounter - DEBI Cho - 06/09/2024 12:22 PM EDT Spoke with patient and he will RTW tomorrow with light duty [facility] Work Phone: [phone]) [phone] Miscellaneous Notes* Telephone Encounter - DEBI Cho - 06/09/2024 12:22 PM EDT Spoke with patient and he will RTW tomorrow with light duty * Telephone Encounter - DEBI Cho - 06/09/2024 12:16 PM EDT Spoke with patient and answered questions, he would like to RTW tomorrow with restrictions, spoke with Dr Bo and he said that was fine * Telephone Encounter - Sarah Marshall - 06/09/2024 12:13 PM EDT Pt called and left vm stated he has PO questions, if you could call him at [phone] documented in this encounterHedrick Medical [id number] Telephone encounter Note* Telephone Encounter - DEBI Cho - 06/09/2024 12:16 PM EDT Spoke with patient and answered questions, he would like to RTW tomorrow with restrictions, spoke with Dr Bo and he said that was fine [facility] [id number] Telephone encounter Note* Telephone Encounter - Sarah Marshall - 06/09/2024 12:13 PM EDT Pt called and left vm stated he has PO questions, if you could call him at [phone] [facility] [id number] History of Present illness Narrative* Blank Mcfarlane NP - 06/03/2024 8:45 AM EDT Images from the original note were not included. Subjective Patient ID: Abram Guillaume is a 58 y.o. male. 1 week s/p RT ulnar nerve decompression (DOS 05/27/24), sutures intact. Removed today. Steri strips applied. Denies issues with incisions. Denies drainage/fevers/chills. States he is doing good, denies pain. Notes he bumped his elbow a few times on his recliner and only had minimal pain. He has been wrapping it when he goes out, and at home he does not wrap it. Admits constant N/T in his LF that has improved a little, this was present prior to sx. Notes he also had some N/T in his RF prior to sx and this is improving. He took three norco the first few days after sx to help him sleep, denies other pain meds. He has been icing. Denies waking at night. Pt is LT handed. 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 Objective Right Elbow Exam Comments: Sutures removed in office, steri strips applied, decreased sensation ulnar nerve Elbow Musculoskeletal Exam Inspection Right Ecchymosis: mild Swelling: diffuse Incision: clean and dry Incisional drainage: none Inspection additional comments: Sutures removed in office, steri strips applied, decreased sensation ulnar nerve Assessment/Plan Encounter Diagnoses: ICD-10-CM 1. Cubital tunnel syndrome on right G56.21 no forceful gripping or heavy lifting for 4 weeks s/p surgery, no full flexion of the elbow, no submerging in water for 4 weeks s/p surgery, f/u in 4 weeks, continue off work documented in this [facility]09-03-2024 Telephone encounter Note* Telephone Encounter - Tiburcio Noel NP - 05/26/2024 12:16 PM EDT Post op pain rx. PDMP reviewed [facility] [id number] Miscellaneous Notes* Telephone Encounter - Tiburcio Noel NP - 05/26/2024 12:16 PM EDT Post op pain rx. PDMP reviewed [facility] Diagnosis Onset Date Resolution Status GERD (gastroesophageal reflux disease) acute Hypomagnesemia acute Primary hypertension [facility] Work Phone: Evaluation note* Diagnosis Onset Date Resolution Status GERD (gastroesophageal reflux disease) acute Hypomagnesemia acute Primary hypertension acute Dyspepsia acute GERD (gastroesophageal reflux disease) acute [facility] Work Phone: Evaluation note* Diagnosis Restless legs syndrome Restless legs syndrome (RLS) documented in this encounter [facility]* Diagnosis Cubital tunnel syndrome on right- Primary documented in this encounter [facility]* Diagnosis Essential hypertension, benign (CMS/HCC)- Primary Essential hypertension, benign Screening for prostate cancer Special screening for malignant neoplasm of prostate Hypomagnesemia Disorders of magnesium metabolism Mixed hyperlipidemia (CMS/HCC) Mixed hyperlipidemia Hyperglycemia Other abnormal glucose Hypothyroidism, unspecified type (CMS/HCC) Restless legs Restless legs syndrome (RLS) Fibromyalgia Unspecified myalgia and myositis Pulmonary hypertension (CMS/HCC) Other chronic pulmonary heart diseases Restless legs syndrome Restless legs syndrome (RLS) Gastroesophageal reflux disease, unspecified whether esophagitis present Atopic dermatitis, unspecified type Gastroesophageal reflux disease, unspecified whether esophagitis present- Primary Essential hypertension, benign (CMS/HCC) Essential hypertension, benign Hypothyroidism, unspecified type (CMS/HCC) Mixed hyperlipidemia (CMS/HCC) Mixed hyperlipidemia Hypomagnesemia Disorders of magnesium metabolism Obesity (BMI 30-39.9) Hypomagnesemia- Primary Disorders of magnesium metabolism Fibromyalgia Unspecified myalgia and myositis Atopic dermatitis, unspecified type Gastroesophageal reflux disease, unspecified whether esophagitis present Obesity (BMI 30-39.9) Essential hypertension, benign (CMS/HCC) Essential hypertension, benign Essential (primary) hypertension (CMS/HCC)- Primary Unspecified essential hypertension Morbid (severe) obesity due to excess calories (CMS/HCC) Body mass index (BMI) 38.0-38.9, adult Obesity (BMI 30-39.9) Cigarette nicotine dependence without complication Gastroesophageal reflux disease, unspecified whether esophagitis present Hypomagnesemia Disorders of magnesium metabolism Pre-operative clearance- Primary Unspecified pre-operative examination Hypomagnesemia Disorders of magnesium metabolism Restless legs syndrome Restless legs syndrome (RLS) COPD with acute exacerbation (CMS/HCC) Chronic bronchitis, unspecified chronic bronchitis type (CMS/HCC) Essential hypertension, benign (CMS/HCC) Essential hypertension, benign Gastroesophageal reflux disease, unspecified whether esophagitis present GURVINDER (obstructive sleep apnea) Obstructive sleep apnea (adult) (pediatric) Pulmonary hypertension (CMS/HCC) Other chronic pulmonary heart diseases LV dysfunction Left heart failure Essential hypertension, benign (CMS/HCC)- Primary Essential hypertension, benign Hypomagnesemia Disorders of magnesium metabolism Gastroesophageal reflux disease, unspecified whether esophagitis present Obesity (BMI 30-39.9) Hypothyroidism, unspecified type ([facility]/HCC) Needs flu shot Need for prophylactic vaccination and inoculation against influenza documented in this encounter [facility] HealthcareEvaluation note* Diagnosis Hypomagnesemia Disorders of magnesium metabolism documented in this encounter [facility] HealthcareEvaluation note* Diagnosis Essential hypertension, benign ([facility]/HCC)- Primary Essential hypertension, benign Screening for prostate cancer Special screening for malignant neoplasm of prostate Hypomagnesemia Disorders of magnesium metabolism Mixed hyperlipidemia ([facility]/HCC) Mixed hyperlipidemia Hyperglycemia Other abnormal glucose Hypothyroidism, unspecified type ([facility]) Restless legs Restless legs syndrome (RLS) Fibromyalgia Unspecified myalgia and myositis Pulmonary hypertension ([facility]/HCC) Other chronic pulmonary heart diseases Restless legs syndrome Restless legs syndrome (RLS) Gastroesophageal reflux disease, unspecified whether esophagitis present Atopic dermatitis, unspecified type Gastroesophageal reflux disease, unspecified whether esophagitis present- Primary Essential hypertension, benign ([facility]/HCC) Essential hypertension, benign Hypothyroidism, unspecified type ([facility]/HCC) Mixed hyperlipidemia ([facility]/HCC) Mixed hyperlipidemia Hypomagnesemia Disorders of magnesium metabolism Obesity (BMI 30-39.9) Hypomagnesemia- Primary Disorders of magnesium metabolism Fibromyalgia Unspecified myalgia and myositis Atopic dermatitis, unspecified type Gastroesophageal reflux disease, unspecified whether esophagitis present Obesity (BMI 30-39.9) Essential hypertension, benign ([facility]/HCC) Essential hypertension, benign Essential (primary) hypertension ([facility]/HCC)- Primary Unspecified essential hypertension Morbid (severe) obesity due to excess calories ([facility]) Body mass index (BMI) 38.0-38.9, adult Obesity (BMI 30-39.9) Cigarette nicotine dependence without complication Gastroesophageal reflux disease, unspecified whether esophagitis present Hypomagnesemia Disorders of magnesium metabolism Pre-operative clearance- Primary Unspecified pre-operative examination Hypomagnesemia Disorders of magnesium metabolism Restless legs syndrome Restless legs syndrome (RLS) COPD with acute exacerbation ([facility]) Chronic bronchitis, unspecified chronic bronchitis type ([facility]) Essential hypertension, benign ([facility]/HCC) Essential hypertension, benign Gastroesophageal reflux disease, unspecified whether esophagitis present GURVINDER (obstructive sleep apnea) Obstructive sleep apnea (adult) (pediatric) Pulmonary hypertension (CMS/HCC) Other chronic pulmonary heart diseases LV dysfunction Left heart failure Essential hypertension, benign (CMS/HCC)- Primary Essential hypertension, benign Hypomagnesemia Disorders of magnesium metabolism Gastroesophageal reflux disease, unspecified whether esophagitis present Obesity (BMI 30-39.9) Hypothyroidism, unspecified type (CMS/HCC) Needs flu shot Need for prophylactic vaccination and inoculation against influenza Hypomagnesemia Disorders of magnesium metabolism documented in this encounter [facility] HealthcareEvaluation note* Diagnosis Essential hypertension, benign (CMS/HCC)- Primary Essential hypertension, benign Screening for prostate cancer Special screening for malignant neoplasm of prostate Hypomagnesemia Disorders of magnesium metabolism Mixed hyperlipidemia (CMS/HCC) Mixed hyperlipidemia Hyperglycemia Other abnormal glucose Hypothyroidism, unspecified type (CMS/HCC) Restless legs Restless legs syndrome (RLS) Fibromyalgia Unspecified myalgia and myositis Pulmonary hypertension (CMS/HCC) Other chronic pulmonary heart diseases Restless legs syndrome Restless legs syndrome (RLS) Gastroesophageal reflux disease, unspecified whether esophagitis present Atopic dermatitis, unspecified type Gastroesophageal reflux disease, unspecified whether esophagitis present- Primary Essential hypertension, benign (CMS/HCC) Essential hypertension, benign Hypothyroidism, unspecified type (CMS/HCC) Mixed hyperlipidemia (CMS/HCC) Mixed hyperlipidemia Hypomagnesemia Disorders of magnesium metabolism Obesity (BMI 30-39.9) Hypomagnesemia- Primary Disorders of magnesium metabolism Fibromyalgia Unspecified myalgia and myositis Atopic dermatitis, unspecified type Gastroesophageal reflux disease, unspecified whether esophagitis present Obesity (BMI 30-39.9) Essential hypertension, benign (CMS/HCC) Essential hypertension, benign Essential (primary) hypertension ([facility]/HCC)- Primary Unspecified essential hypertension Morbid (severe) obesity due to excess calories (CMS/HCC) Body mass index (BMI) 38.0-38.9, adult Obesity (BMI 30-39.9) Cigarette nicotine dependence without complication Gastroesophageal reflux disease, unspecified whether esophagitis present Hypomagnesemia Disorders of magnesium metabolism Pre-operative clearance- Primary Unspecified pre-operative examination Hypomagnesemia Disorders of magnesium metabolism Restless legs syndrome Restless legs syndrome (RLS) COPD with acute exacerbation (CMS/HCC) Chronic bronchitis, unspecified chronic bronchitis type (CMS/HCC) Essential hypertension, benign (CMS/HCC) Essential hypertension, benign Gastroesophageal reflux disease, unspecified whether esophagitis present GURVINDER (obstructive sleep apnea) Obstructive sleep apnea (adult) (pediatric) Pulmonary hypertension (CMS/HCC) Other chronic pulmonary heart diseases LV dysfunction Left heart failure Essential hypertension, benign (CMS/HCC)- Primary Essential hypertension, benign Hypomagnesemia Disorders of magnesium metabolism Gastroesophageal reflux disease, unspecified whether esophagitis present Obesity (BMI 30-39.9) Hypothyroidism, unspecified type (CMS/HCC) Needs flu shot Need for prophylactic vaccination and inoculation against influenza Hypomagnesemia- Primary Disorders of magnesium metabolism documented in this encounter [facility]* Diagnosis Post-operative pain- Primary Other acute postoperative pain documented in this encounter [facility] note* Diagnosis Degenerative disc disease, cervical- Primary documented in this encounter [facility]* Diagnosis Essential hypertension, benign (CMS/HCC)- Primary Essential hypertension, benign Screening for prostate cancer Special screening for malignant neoplasm of prostate Hypomagnesemia Disorders of magnesium metabolism Mixed hyperlipidemia (CMS/HCC) Mixed hyperlipidemia Hyperglycemia Other abnormal glucose Hypothyroidism, unspecified type (CMS/HCC) Restless legs Restless legs syndrome (RLS) Fibromyalgia Unspecified myalgia and myositis Pulmonary hypertension (CMS/HCC) Other chronic pulmonary heart diseases Restless legs syndrome Restless legs syndrome (RLS) Gastroesophageal reflux disease, unspecified whether esophagitis present Atopic dermatitis, unspecified type Gastroesophageal reflux disease, unspecified whether esophagitis present- Primary Essential hypertension, benign (CMS/HCC) Essential hypertension, benign Hypothyroidism, unspecified type (CMS/HCC) Mixed hyperlipidemia (CMS/HCC) Mixed hyperlipidemia Hypomagnesemia Disorders of magnesium metabolism Obesity (BMI 30-39.9) Hypomagnesemia- Primary Disorders of magnesium metabolism Fibromyalgia Unspecified myalgia and myositis Atopic dermatitis, unspecified type Gastroesophageal reflux disease, unspecified whether esophagitis present Obesity (BMI 30-39.9) Essential hypertension, benign (CMS/HCC) Essential hypertension, benign Essential (primary) hypertension (CMS/HCC)- Primary Unspecified essential hypertension Morbid (severe) obesity due to excess calories (CMS/HCC) Body mass index (BMI) 38.0-38.9, adult Obesity (BMI 30-39.9) Cigarette nicotine dependence without complication Gastroesophageal reflux disease, unspecified whether esophagitis present Hypomagnesemia Disorders of magnesium metabolism Pre-operative clearance- Primary Unspecified pre-operative examination Hypomagnesemia Disorders of magnesium metabolism Restless legs syndrome Restless legs syndrome (RLS) COPD with acute exacerbation (CMS/HCC) Chronic bronchitis, unspecified chronic bronchitis type (CMS/HCC) Essential hypertension, benign (CMS/HCC) Essential hypertension, benign Gastroesophageal reflux disease, unspecified whether esophagitis present GURVINDER (obstructive sleep apnea) Obstructive sleep apnea (adult) (pediatric) Pulmonary hypertension (CMS/HCC) Other chronic pulmonary heart diseases LV dysfunction Left heart failure Essential hypertension, benign (CMS/HCC)- Primary Essential hypertension, benign Hypomagnesemia Disorders of magnesium metabolism Gastroesophageal reflux disease, unspecified whether esophagitis present Obesity (BMI 30-39.9) Hypothyroidism, unspecified type (CMS/HCC) Needs flu shot Need for prophylactic vaccination and inoculation against influenza Hypomagnesemia Disorders of magnesium metabolism documented in this encounter [facility]* Diagnosis Essential hypertension, benign (CMS/HCC)- Primary Essential hypertension, benign Screening for prostate cancer Special screening for malignant neoplasm of prostate Hypomagnesemia Disorders of magnesium metabolism Mixed hyperlipidemia (CMS/HCC) Mixed hyperlipidemia Hyperglycemia Other abnormal glucose Hypothyroidism, unspecified type (CMS/HCC) Restless legs Restless legs syndrome (RLS) Fibromyalgia Unspecified myalgia and myositis Pulmonary hypertension (CMS/HCC) Other chronic pulmonary heart diseases Restless legs syndrome Restless legs syndrome (RLS) Gastroesophageal reflux disease, unspecified whether esophagitis present Atopic dermatitis, unspecified type Gastroesophageal reflux disease, unspecified whether esophagitis present- Primary Essential hypertension, benign (CMS/HCC) Essential hypertension, benign Hypothyroidism, unspecified type (CMS/HCC) Mixed hyperlipidemia (CMS/HCC) Mixed hyperlipidemia Hypomagnesemia Disorders of magnesium metabolism Obesity (BMI 30-39.9) Hypomagnesemia- Primary Disorders of magnesium metabolism Fibromyalgia Unspecified myalgia and myositis Atopic dermatitis, unspecified type Gastroesophageal reflux disease, unspecified whether esophagitis present Obesity (BMI 30-39.9) Essential hypertension, benign (CMS/HCC) Essential hypertension, benign Essential (primary) hypertension ([facility]/HCC)- Primary Unspecified essential hypertension Morbid (severe) obesity due to excess calories (CMS/HCC) Body mass index (BMI) 38.0-38.9, adult Obesity (BMI 30-39.9) Cigarette nicotine dependence without complication Gastroesophageal reflux disease, unspecified whether esophagitis present Hypomagnesemia Disorders of magnesium metabolism Pre-operative clearance- Primary Unspecified pre-operative examination Hypomagnesemia Disorders of magnesium metabolism Restless legs syndrome Restless legs syndrome (RLS) COPD with acute exacerbation (CMS/HCC) Chronic bronchitis, unspecified chronic bronchitis type (CMS/HCC) Essential hypertension, benign (CMS/HCC) Essential hypertension, benign Gastroesophageal reflux disease, unspecified whether esophagitis present GURVINDER (obstructive sleep apnea) Obstructive sleep apnea (adult) (pediatric) Pulmonary hypertension (CMS/HCC) Other chronic pulmonary heart diseases LV dysfunction Left heart failure Essential hypertension, benign (CMS/HCC)- Primary Essential hypertension, benign Hypomagnesemia Disorders of magnesium metabolism Gastroesophageal reflux disease, unspecified whether esophagitis present Obesity (BMI 30-39.9) Hypothyroidism, unspecified type (CMS/HCC) Needs flu shot Need for prophylactic vaccination and inoculation against influenza Fibromyalgia Unspecified myalgia and myositis documented in this encounter [facility]* Diagnosis Essential hypertension, benign (CMS/HCC)- Primary Essential hypertension, benign Screening for prostate cancer Special screening for malignant neoplasm of prostate Hypomagnesemia Disorders of magnesium metabolism Mixed hyperlipidemia (CMS/HCC) Mixed hyperlipidemia Hyperglycemia Other abnormal glucose Hypothyroidism, unspecified type (CMS/HCC) Restless legs Restless legs syndrome (RLS) Fibromyalgia Unspecified myalgia and myositis Pulmonary hypertension (CMS/HCC) Other chronic pulmonary heart diseases Restless legs syndrome Restless legs syndrome (RLS) Gastroesophageal reflux disease, unspecified whether esophagitis present Atopic dermatitis, unspecified type Gastroesophageal reflux disease, unspecified whether esophagitis present- Primary Essential hypertension, benign (CMS/HCC) Essential hypertension, benign Hypothyroidism, unspecified type (CMS/HCC) Mixed hyperlipidemia (CMS/HCC) Mixed hyperlipidemia Hypomagnesemia Disorders of magnesium metabolism Obesity (BMI 30-39.9) Hypomagnesemia- Primary Disorders of magnesium metabolism Fibromyalgia Unspecified myalgia and myositis Atopic dermatitis, unspecified type Gastroesophageal reflux disease, unspecified whether esophagitis present Obesity (BMI 30-39.9) Essential hypertension, benign (CMS/HCC) Essential hypertension, benign Essential (primary) hypertension (CMS/HCC)- Primary Unspecified essential hypertension Morbid (severe) obesity due to excess calories (CMS/HCC) Body mass index (BMI) 38.0-38.9, adult Obesity (BMI 30-39.9) Cigarette nicotine dependence without complication Gastroesophageal reflux disease, unspecified whether esophagitis present Hypomagnesemia Disorders of magnesium metabolism Pre-operative clearance- Primary Unspecified pre-operative examination Hypomagnesemia Disorders of magnesium metabolism Restless legs syndrome Restless legs syndrome (RLS) COPD with acute exacerbation (CMS/HCC) Chronic bronchitis, unspecified chronic bronchitis type (CMS/HCC) Essential hypertension, benign (CMS/HCC) Essential hypertension, benign Gastroesophageal reflux disease, unspecified whether esophagitis present GURVINDER (obstructive sleep apnea) Obstructive sleep apnea (adult) (pediatric) Pulmonary hypertension (CMS/HCC) Other chronic pulmonary heart diseases LV dysfunction Left heart failure Essential hypertension, benign (CMS/HCC)- Primary Essential hypertension, benign Hypomagnesemia Disorders of magnesium metabolism Gastroesophageal reflux disease, unspecified whether esophagitis present Obesity (BMI 30-39.9) Hypothyroidism, unspecified type (CMS/HCC) Needs flu shot Need for prophylactic vaccination and inoculation against influenza Hypomagnesemia- Primary Disorders of magnesium metabolism documented in this encounter [facility] HealthcareEvaluation noteNo assessment information availableOur [facility] Work Phone: Evaluation note* Diagnosis Essential hypertension, benign (CMS/HCC)- Primary Essential hypertension, benign Screening for prostate cancer Special screening for malignant neoplasm of prostate Hypomagnesemia Disorders of magnesium metabolism Mixed hyperlipidemia (CMS/HCC) Mixed hyperlipidemia Hyperglycemia Other abnormal glucose Hypothyroidism, unspecified type (CMS/HCC) Restless legs Restless legs syndrome (RLS) Fibromyalgia Unspecified myalgia and myositis Pulmonary hypertension (CMS/HCC) Other chronic pulmonary heart diseases Restless legs syndrome Restless legs syndrome (RLS) Gastroesophageal reflux disease, unspecified whether esophagitis present Atopic dermatitis, unspecified type Gastroesophageal reflux disease, unspecified whether esophagitis present- Primary Essential hypertension, benign (CMS/HCC) Essential hypertension, benign Hypothyroidism, unspecified type (CMS/HCC) Mixed hyperlipidemia (CMS/HCC) Mixed hyperlipidemia Hypomagnesemia Disorders of magnesium metabolism Obesity (BMI 30-39.9) Hypomagnesemia- Primary Disorders of magnesium metabolism Fibromyalgia Unspecified myalgia and myositis Atopic dermatitis, unspecified type Gastroesophageal reflux disease, unspecified whether esophagitis present Obesity (BMI 30-39.9) Essential hypertension, benign (CMS/HCC) Essential hypertension, benign Essential (primary) hypertension (CMS/HCC)- Primary Unspecified essential hypertension Morbid (severe) obesity due to excess calories (CMS/HCC) Body mass index (BMI) 38.0-38.9, adult Obesity (BMI 30-39.9) Cigarette nicotine dependence without complication Gastroesophageal reflux disease, unspecified whether esophagitis present Hypomagnesemia Disorders of magnesium metabolism Pre-operative clearance- Primary Unspecified pre-operative examination Hypomagnesemia Disorders of magnesium metabolism Restless legs syndrome Restless legs syndrome (RLS) COPD with acute exacerbation (CMS/HCC) Chronic bronchitis, unspecified chronic bronchitis type (CMS/HCC) Essential hypertension, benign (CMS/HCC) Essential hypertension, benign Gastroesophageal reflux disease, unspecified whether esophagitis present GURVINDER (obstructive sleep apnea) Obstructive sleep apnea (adult) (pediatric) Pulmonary hypertension (CMS/HCC) Other chronic pulmonary heart diseases LV dysfunction Left heart failure Essential hypertension, benign (CMS/HCC)- Primary Essential hypertension, benign Hypomagnesemia Disorders of magnesium metabolism Gastroesophageal reflux disease, unspecified whether esophagitis present Obesity (BMI 30-39.9) Hypothyroidism, unspecified type (CMS/HCC) Needs flu shot Need for prophylactic vaccination and inoculation against influenza Hypomagnesemia- Primary Disorders of magnesium metabolism Essential hypertension, benign (CMS/HCC)- Primary Essential hypertension, benign Morbid (severe) obesity due to excess calories (CMS/HCC) Gastro-esophageal reflux disease without esophagitis Body mass index (BMI) 37.0-37.9, adult GURVINDER (obstructive sleep apnea) Obstructive sleep apnea (adult) (pediatric) COPD mixed type (CMS/HCC) Pulmonary hypertension (CMS/HCC) Other chronic pulmonary heart diseases Hypothyroidism, unspecified type (CMS/HCC) Obesity (BMI 30-39.9) Mixed hyperlipidemia (CMS/HCC) Mixed hyperlipidemia Hypomagnesemia Disorders of magnesium metabolism Marijuana use Pre-diabetes Other abnormal glucose Chronic bronchitis, unspecified chronic bronchitis type (CMS/HCC) documented in this encounter [facility] HealthcareEvaluation note* Diagnosis Essential hypertension, benign (CMS/HCC)- Primary Essential hypertension, benign Screening for prostate cancer Special screening for malignant neoplasm of prostate Hypomagnesemia Disorders of magnesium metabolism Mixed hyperlipidemia (CMS/HCC) Mixed hyperlipidemia Hyperglycemia Other abnormal glucose Hypothyroidism, unspecified type (CMS/HCC) Restless legs Restless legs syndrome (RLS) Fibromyalgia Unspecified myalgia and myositis Pulmonary hypertension (CMS/HCC) Other chronic pulmonary heart diseases Restless legs syndrome Restless legs syndrome (RLS) Gastroesophageal reflux disease, unspecified whether esophagitis present Atopic dermatitis, unspecified type Gastroesophageal reflux disease, unspecified whether esophagitis present- Primary Essential hypertension, benign (CMS/HCC) Essential hypertension, benign Hypothyroidism, unspecified type (CMS/HCC) Mixed hyperlipidemia (CMS/HCC) Mixed hyperlipidemia Hypomagnesemia Disorders of magnesium metabolism Obesity (BMI 30-39.9) Hypomagnesemia- Primary Disorders of magnesium metabolism Fibromyalgia Unspecified myalgia and myositis Atopic dermatitis, unspecified type Gastroesophageal reflux disease, unspecified whether esophagitis present Obesity (BMI 30-39.9) Essential hypertension, benign (CMS/HCC) Essential hypertension, benign Essential (primary) hypertension (CMS/HCC)- Primary Unspecified essential hypertension Morbid (severe) obesity due to excess calories (CMS/HCC) Body mass index (BMI) 38.0-38.9, adult Obesity (BMI 30-39.9) Cigarette nicotine dependence without complication Gastroesophageal reflux disease, unspecified whether esophagitis present Hypomagnesemia Disorders of magnesium metabolism Pre-operative clearance- Primary Unspecified pre-operative examination Hypomagnesemia Disorders of magnesium metabolism Restless legs syndrome Restless legs syndrome (RLS) COPD with acute exacerbation (CMS/HCC) Chronic bronchitis, unspecified chronic bronchitis type (CMS/HCC) Essential hypertension, benign (CMS/HCC) Essential hypertension, benign Gastroesophageal reflux disease, unspecified whether esophagitis present GURVINDER (obstructive sleep apnea) Obstructive sleep apnea (adult) (pediatric) Pulmonary hypertension (CMS/HCC) Other chronic pulmonary heart diseases LV dysfunction Left heart failure Essential hypertension, benign (CMS/HCC)- Primary Essential hypertension, benign Hypomagnesemia Disorders of magnesium metabolism Gastroesophageal reflux disease, unspecified whether esophagitis present Obesity (BMI 30-39.9) Hypothyroidism, unspecified type (CMS/HCC) Needs flu shot Need for prophylactic vaccination and inoculation against influenza Hypomagnesemia- Primary Disorders of magnesium metabolism Essential hypertension, benign (CMS/HCC)- Primary Essential hypertension, benign Morbid (severe) obesity due to excess calories (CMS/HCC) Gastro-esophageal reflux disease without esophagitis Body mass index (BMI) 37.0-37.9, adult GURVINDER (obstructive sleep apnea) Obstructive sleep apnea (adult) (pediatric) COPD mixed type (CMS/HCC) Pulmonary hypertension (CMS/HCC) Other chronic pulmonary heart diseases Hypothyroidism, unspecified type (CMS/HCC) Obesity (BMI 30-39.9) Mixed hyperlipidemia (CMS/HCC) Mixed hyperlipidemia Hypomagnesemia Disorders of magnesium metabolism Marijuana use Pre-diabetes Other abnormal glucose Chronic bronchitis, unspecified chronic bronchitis type (CMS/HCC) Hypothyroidism, unspecified type (CMS/HCC)- Primary Hypomagnesemia Disorders of magnesium metabolism documented in this encounter [facility]* Diagnosis Essential hypertension, benign (CMS/HCC)- Primary Essential hypertension, benign Screening for prostate cancer Special screening for malignant neoplasm of prostate Hypomagnesemia Disorders of magnesium metabolism Mixed hyperlipidemia (CMS/HCC) Mixed hyperlipidemia Hyperglycemia Other abnormal glucose Hypothyroidism, unspecified type (CMS/HCC) Restless legs Restless legs syndrome (RLS) Fibromyalgia Unspecified myalgia and myositis Pulmonary hypertension (CMS/HCC) Other chronic pulmonary heart diseases Restless legs syndrome Restless legs syndrome (RLS) Gastroesophageal reflux disease, unspecified whether esophagitis present Atopic dermatitis, unspecified type Gastroesophageal reflux disease, unspecified whether esophagitis present- Primary Essential hypertension, benign (CMS/HCC) Essential hypertension, benign Hypothyroidism, unspecified type (CMS/HCC) Mixed hyperlipidemia (CMS/HCC) Mixed hyperlipidemia Hypomagnesemia Disorders of magnesium metabolism Obesity (BMI 30-39.9) Hypomagnesemia- Primary Disorders of magnesium metabolism Fibromyalgia Unspecified myalgia and myositis Atopic dermatitis, unspecified type Gastroesophageal reflux disease, unspecified whether esophagitis present Obesity (BMI 30-39.9) Essential hypertension, benign (CMS/HCC) Essential hypertension, benign Essential (primary) hypertension (CMS/HCC)- Primary Unspecified essential hypertension Morbid (severe) obesity due to excess calories (CMS/HCC) Body mass index (BMI) 38.0-38.9, adult Obesity (BMI 30-39.9) Cigarette nicotine dependence without complication Gastroesophageal reflux disease, unspecified whether esophagitis present Hypomagnesemia Disorders of magnesium metabolism Pre-operative clearance- Primary Unspecified pre-operative examination Hypomagnesemia Disorders of magnesium metabolism Restless legs syndrome Restless legs syndrome (RLS) COPD with acute exacerbation (CMS/HCC) Chronic bronchitis, unspecified chronic bronchitis type (CMS/HCC) Essential hypertension, benign (CMS/HCC) Essential hypertension, benign Gastroesophageal reflux disease, unspecified whether esophagitis present GURVINDER (obstructive sleep apnea) Obstructive sleep apnea (adult) (pediatric) Pulmonary hypertension (CMS/HCC) Other chronic pulmonary heart diseases LV dysfunction Left heart failure Essential hypertension, benign (CMS/HCC)- Primary Essential hypertension, benign Hypomagnesemia Disorders of magnesium metabolism Gastroesophageal reflux disease, unspecified whether esophagitis present Obesity (BMI 30-39.9) Hypothyroidism, unspecified type (CMS/HCC) Needs flu shot Need for prophylactic vaccination and inoculation against influenza Hypomagnesemia- Primary Disorders of magnesium metabolism Essential hypertension, benign (CMS/HCC)- Primary Essential hypertension, benign Morbid (severe) obesity due to excess calories (CMS/HCC) Gastro-esophageal reflux disease without esophagitis Body mass index (BMI) 37.0-37.9, adult GURVINDER (obstructive sleep apnea) Obstructive sleep apnea (adult) (pediatric) COPD mixed type (CMS/HCC) Pulmonary hypertension (CMS/HCC) Other chronic pulmonary heart diseases Hypothyroidism, unspecified type (CMS/HCC) Obesity (BMI 30-39.9) Mixed hyperlipidemia (CMS/HCC) Mixed hyperlipidemia Hypomagnesemia Disorders of magnesium metabolism Marijuana use Pre-diabetes Other abnormal glucose Chronic bronchitis, unspecified chronic bronchitis type (CMS/HCC) Hypomagnesemia Disorders of magnesium metabolism Restless legs syndrome Restless legs syndrome (RLS) documented in this encounter [facility] HealthcareHistory and physical note Author James Elaine [facility] July 09, 2024 1:12pm Note Date/Time July 09, 2024 1 :12pm [facility] [address] [place] [address] Gastroenterology H&P Signed Patient: Abram Guillaume MR#: [id number] 4 : 1965 Acct:[id number] Age/Sex: 58 / M Adm Date: 4 Loc: Room: Type: [facility] Attending Dr: James Elaine MD Copies to: MD Pepper Werner NP-Radames~ Date of Service: 07/09/2024 HISTORY & PHYSICAL: Patient's history with special attention to the cardiovascular, pulmonary systems and the current problem was reviewed with the patient immediately prior to the procedure. Present medications and doses reviewed in the EMR. Allergies and pertinent laboratory tests were also reviewedat this time in the EMR. The physical examination, as below, was then performed. Indication, assessment and HPI: 58-year-old man with chronic heartburn here for EGD to assess for Diana's and to assess etiology of dyspepsia Family history of GI malignancy? No PHYSICAL EXAMINATION General appearance: NAD Skin: No jaundice Head: NC/AT Eyes: Anicteric Neck: Supple Lungs: Normal respiratory effort, no use of accessory muscles Abdomen: nondistended Neuro: Ox3. REVIEW OF SYSTEMS Constitutional: Denies malaise, fevers Cardiovascular: Denies chest pain, palpitations Respiratory: Denies shortness of breath, wheezing Gastrointestinal: As per HPI Genitourinary: Denies dysuria, polyuria Musculoskeletal: Denies joint swelling, joint stiffness Neurological: Denies confusion, numbness, tingling Endocrine: Denies fatigue Written informed consent obtained from the patient. Risks (including but not limited to perforation, infection, bloating, bleeding, need for emergent surgeryand loss of life), benefits and alternatives explained and questions answered. The patient verbalized understanding. Based on history patient is an appropriate candidate for the procedure. James Elaine M.D. Documented By: James Elaine MD 07/09/24 1311 Signed By: <Electronically signed by James Elaine MD> 07/09/24 1312 [facility] Work Phone: Hospital Discharge instructions Additional Instructions DISCHARGE INSTRUCTIONS FOR UPPER ENDOSCOPY WHAT TO EXPECT: - You may feel full, gassy or cramping after your procedure. In some cases, this may be from a few hours to a day. Walking may help relieve the discomfort. - Your throat may feel sore today from the scope that the doctor passed through your throat to visualize your stomach. Take a throat lozenge or suck on ice to ease the discomfort. - You may notice some streaks of blood in your sputum if the doctor has taken a biopsy. - You should begin to recover from anesthesia within 1 hour of the procedure, however may feel groggy for the next 24 hours. DO's AND DON'Ts: - Call your doctor right away if you have a hard abdomen, severe pain, vomiting or if you cough up large amounts of blood. - Call your doctor if you develop any rashes, hives or difficulty breathing. - If you take 81 mg aspirin for your heart it is safe to resume this medication. - If you take other blood thinner medications your doctor will instruct you when these can safely be resumed. - Do NOT drive for 24 hours. - Do NOT operate machinery such as power tools, lawn mowers, snow blowers, sewing machines, etc. for 24 hours. - Avoid alcoholic beverages and drugs for allergies, nerves, or sleep. - Do NOT stay alone. Do NOT leave your child unattended. - Do NOT make important personal or business decisions or sign any legal documents. - Eat solid foods and drink liquids in smaller amounts than usual until normal appetite returns. If you should experience an upset stomach, liquids high in sugar content (soda, Nolan-Aid, non-acid juices) are recommended. - Do NOT smoke. - Do take it easy today. You need not stay in bed, but avoid strenuous activities such as jogging or working out. FOLLOW UP & RECOMMENDATIONS: -Notify the doctor if you have any problems. -Continue omeprazole 40 mg daily -Office number [phone]. [facility] Work Phone: Summary Purpose Family History Relationship Condition Age at Onset Recorded Date/T valerie Not Specified No pertinent family history Unknown Advance Directives Advance Directive Response Recorded Date/ Time Advance Directives No March 18 2:19pm Advance Directive Response Recorded Date/ Time Advance Directives No March 18 1:19pm Chief Complaint and Reason for Visit Chief Complaint Hypomagnesemia Reason for Visit GERD (gastroesophage al reflux disease) Hypomagnesemia Primary hypertension Chief Complaint RENAL 3 MONTH FU Reason for Visit GERD (gastroesophage al reflux disease) Hypomagnesemia Primary hypertension Chief Complaint RENAL 3 MONTH FU Referred by Pepper Sexton: GERD Reason for Visit GERD (gastroesophage al reflux disease) Hypomagnesemia Primary hypertension Dyspepsia GERD (gastroesophageal reflux disease) Chief Complaint RENAL 3 MONTH FU Referred by Pepper Sexton: GERD GERD Gastroesophageal reflux disease (GERD) Reason for Visit GERD (gastroesophage al reflux disease) Hypomagnesemia Primary hypertension Dyspepsia GERD (gastroesophageal reflux disease) Chief Complaint Admit Date GERD July 09, 2024 1 1:26am Gastroesophageal reflux disease (GERD) O ctober 2023 1:11pm esophagitis, Esophageal ulcer, gastritis October 06, 2024 7:09am esophagitis, Esophageal ulcer, gastritis October 06, 2024 8:31am Additional Source Comments (unrecognized sect ion and content) No Status Records FoundNo Status Records FoundNo Status Records FoundNo Status Records FoundNo Status Records Found INFORMATION SOURCE (unrecogn ized section and content) DATE CREATED AUTHOR 05/18/2022 [facility] DATE CREATED AUTHOR AUTHOR'S ORGANIZ ATION 07/22/2022 [facility] DATE CREATED AUTHOR AUTHOR'S ORGANIZ ATION 05/28/2024 [facility] DATE CREATED AUTHOR AUTHOR'S ORGANIZ ATION 10/10/2024 [facility] DATE CREATED AUTHOR AUTHOR'S ORGANIZ ATION 10/16/2024 [facility] Care Teams (unrecognized sec tion and content) Team Status: Active Member Role Status Dates Pepper Sexton Primary Care Provider Active Team Status: Inactive Member Role Status Dates Tang Haro MD Attending Provider Active Star t: March 19, 2024 End: March 19, 2024 Pepper Sexton Primary Care Provider Active Sta rt: March 19, 2024 End: March 19, 2024 Team Status: Inactive Member Role Status Dates Pepper Sexton Primary Care Provider Active Sta rt: June 23, 2024 End: June 23, 2024 Tang Haro MD Attending Provider Active Star t: June 23, 2024 End: June 23, 2024 Custom Bike Builder Relationship Specialty Start Date End Date Anastacio Hinojosa MD [address] [place] [phone] PCP - General Family Medicine 11/26/23 Pepper Sexton NP [address] [place] [phone] [facility] Pepper Sexton NP [address] [place] [phone] Nurse Practitioner Family Medicine 11/26/23 Team Status: Inactive Member Role Status Dates Pepper Sexton Primary Care Provider Active Sta rt: June 24, 2024 End: June 24, 2024 Dav Swanson APRN Attending Provider Active Start: June 24, 2024 End: June 24, 2024 Custom Bike Builder Relationship Specialty Start Date End Date Anastacio Hinojosa MD [address] [place] [phone] PCP - General Family Medicine 11/26/23 Pepper Sexton NP [address] [place] [phone] PCP - [employer] 04/23/24 Pepper Sexton NP [address] [place] [phone] Nurse Practitioner Family Medicine 11/26/23 Custom Bike Builder Relationship Specialty Start Date End Date Anastacio Hinojosa MD [address] [place] [phone] PCP - General Family Medicine 11/26/23 Pepper Sexton NP [address] [place] [phone] PCP - [employer] 04/23/24 Pepper Sexton NP [address] [place] [address] Nurse Practitioner Family Medicine 11/26/23 Custom Bike Builder Relationship Specialty Start Date End Date Anastacio Hinojosa MD [address] [place] [phone] PCP - General Family Medicine 11/26/23 Pepper Sexton NP [address] [place] [phone] PCP - [employer] 04/23/24 Pepper Sexton NP [address] [place] [phone] Nurse Practitioner Family Medicine 11/26/23 Custom Bike Builder Relationship Specialty Start Date End Date Anastacio Hinojosa MD [address] [place] [phone] PCP - General Family Medicine 11/26/23 Pepper Sexton NP [address] [place] [phone] PCP - [employer] 04/23/24 Pepper Sexton NP [address] [place] [phone] Nurse Practitioner Family Medicine 11/26/23 Custom Bike Builder Relationship Specialty Start Date End Date Anastacio Hinojosa MD [address] [place] [phone] PCP - General Family Medicine 11/26/23 Pepper Sexton NP [address] [place] [phone] PCP - [employer] 04/23/24 Pepper Sexton NP [address] [place] [phone] Nurse Practitioner Family Medicine 11/26/23 Team Status: Inactive Member Role Status Dates Pepper Sexton Primary Care Provider Active Sta rt: July 09, 2024 End: July 09, 2024 James Elaine MD Attending Provider Active Start: July 09, 2024 End: July 09, 2024 Team Status: Active Member Role Status Dates Pepper Sexton Primary Care Provider Active Sta rt: July 09, 2024 James Elaine MD Attending Provider, Other Provider Active Start: July 09, 2024 Custom Bike Builder Relationship Specialty Start Date End Date Anastacio Hinojosa MD [address] [place] [phone] PCP - General Family Medicine 11/26/23 Pepper Sexton NP [address] [place] [phone] PCP - [employer] 04/23/24 Pepper Sexton NP [address] [place] [phone] Nurse Practitioner Family Medicine 11/26/23 Custom Bike Builder Relationship Specialty Start Date End Date Anastacio Hinojosa MD [address] [place] [phone] PCP - General Family Medicine 11/26/23 Pepper Sexton NP [address] [place] [phone] PCP - [employer] 04/23/24 Pepper Sexton NP [address] [place] [phone] Nurse Practitioner Family Medicine 11/26/23 Custom Bike Builder Relationship Specialty Start Date End Date Anastacio Hinojosa MD [address] [place] [phone] PCP - General Family Medicine 11/26/23 Pepper Sexton NP [address] [place] [phone] PCP - [employer] 04/23/24 Pepper Sexton NP [address] [place] [phone] Nurse Practitioner Family Medicine 11/26/23 Custom Bike Builder Relationship Specialty Start Date End Date Anastacio Hinojosa MD [address] [place] [phone] PCP - General Family Medicine 11/26/23 Pepper Sexton NP [address] [place] [phone] Nurse Practitioner Family Medicine 11/26/23 Custom Bike Builder Relationship Specialty Start Date End Date Anastacio Hinojosa MD [address] [place] [phone] PCP - General Family Medicine 11/26/23 Pepper Sexton NP [address] [place] [phone] PCP - [employer] 04/23/24 Pepper Sexton NP [address] [place] [phone] Nurse Practitioner Family Medicine 11/26/23 Custom Bike Builder Relationship Specialty Start Date End Date Anastacio Hinojosa MD [address] [place] [phone] PCP - General Family Medicine 11/26/23 Pepper Sexton NP [address] [place] [phone] PCP - [employer] 04/23/24 Pepper Sexton NP [address] [place] [phone] Nurse Practitioner Family Medicine 11/26/23 Team Status: Inactive Member Role Status Dates Pepper Herrerahayderjemal Primary Care Provider Active Sta rt: October 06, 2024 End: October 06, 2024 James Elaine MD Attending Provider Active Start: October 06, 2024 End: October 06, 2024 Team Status: Active Member Role Status Dates Pepper Herrerahayderjemal Primary Care Provider Active Sta rt: October 06, 2024 James Elaine MD Attending Provider, Other Provider Active Start: October 06, 2024 Custom Bike Builder Relationship Specialty Start Date End Date Anastacio Hinojosa MD [address] [place] [phone] PCP - General Family Medicine 11/26/23 Pepper Sexton NP [address] [place] [phone] PCP - [employer] 04/23/24 Pepper Sexton NP [address] [place] [phone] Nurse Practitioner Family Medicine 11/26/23 Custom Bike Builder Relationship Specialty Start Date End Date Anastacio Hinojosa MD [address] [place] [phone] PCP - General Family Medicine 11/26/23 Pepper Sexton NP [address] [place] [phone] PCP - [employer] 04/23/24 Pepper Sexotn NP [address] [place] [phone] Nurse Practitioner Family Medicine 11/26/23 Custom Bike Builder Relationship Specialty Start Date End Date Anastacio Hinojosa MD [address] [place] [phone] PCP - General Family Medicine 11/26/23 Pepper Sexton NP [address] [place] [phone] PCP - [employer] 04/23/24 Pepper Sexton NP [address] [place] [address] Nurse Practitioner Family Medicine 11/26/23 Custom Bike Builder Relationship Specialty Start Date End Date Anastacio Hinojosa MD [address] [place] [phone] PCP - General Family Medicine 11/26/23 Pepper Sexton NP [address] [place] [phone] PCP - [employer] 04/23/24 Pepper Sexton NP [address] [place] [phone] Nurse Practitioner Family Medicine 11/26/23 Custom Bike Builder Relationship Specialty Start Date End Date Anastacio Hinojosa MD [address] [place] [phone] PCP - General Family Medicine 11/26/23 Pepper Sexton NP [address] [place] [phone] PCP - [facility] 04/23/24 Pepper Sexton NP [address] [place] [phone] Nurse Practitioner Family Medicine 11/26/23 Goals (unrecognized section and content) Goals may be documented in a n alternate sectionGoals may be documented in an alternate sectionGoals may be documented in an alternate section Reason for Visit (unrecogniz ed section and content) Reason Comments Follow-up Reason Onset Date Comments questions 06/09/2024 Reason Comments Med Refill Reason Comments Post-op Reason Comments Hypertension FOR RECORDS PERTAINING TO PATIENTS WHO ARE [...] BE BASED ON THE PRIMARY CLINICAL RECORDS. [facility]. provides no warranty or guarantee of the accuracy or completeness of information in this document.
[2024-11-05 10:57] LABS: Magnesium 0.7 mg/dL (1.8-2.4)
== END 2024-11-05 09:22 | disposition home or self-care (01) ==
LOC: LAB 09:24
PROVIDERS: PCP Nurse Practitioner; Visit Provider Nurse Practitioner
DX: E83.42 Hypomagnesemia (principal)
CPT/HCPCS: 36415; 83735

== ENCOUNTER 2024-11-05 15:34 | Emergency (ER) | payer BC, SELFPAY ==
[2024-11-05 15:39] VITALS: BP 152/95; PULSE 102; TEMP 36.8; O2SAT 94; BMI 38.4
--- OUTSIDE RECORDS SUMMARY | 2024-11-05 15:40 | XMS_ITS | CCD ---
Author Organization [facility] Care Team Providers Care 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 Name Role Phone AICHHOLZ, JAILER/TRAINING OFFICER PEPPER Primary Care Unavailable AICHHOLZ, JAILER/TRAINING OFFICER PEPPER Consulting Unavailable AICHHOLZ, JAILER/TRAINING OFFICER PEPPER Attending Unavailable AICHHOLZ, JAILER/TRAINING OFFICER PEPPER Admitting Unavailable AICHHOLZ, JAILER/TRAINING OFFICER PEPPER Consulting Unavailable AICHHOLZ, JAILER/TRAINING OFFICER PEPPER Attending Unavailable AICHHOLZ, JAILER/TRAINING OFFICER PEPPER Admitting Unavailable AICHHOLZ, JAILER/TRAINING OFFICER PEPPER Primary Care Unavailable AICHHOLZ, JAILER/TRAINING OFFICER PEPPER Primary Care Unavailable DR CRIS GAN V Consulting Unavailable AICHHOLZ, JAILER/TRAINING OFFICER PEPPER Attending Unavailable AICHHOLZ, JAILER/TRAINING OFFICER PEPPER Admitting Unavailable AICHHOLZ, JAILER/TRAINING OFFICER PEPPER Consulting Unavailable AICHHOLZ, JAILER/TRAINING OFFICER PEPPER Primary Care Unavailable AICHHOLZ, JAILER/TRAINING OFFICER PEPPER Consulting Unavailable AICHHOLZ, JAILER/TRAINING OFFICER PEPPER Attending Unavailable AICHHOLZ, JAILER/TRAINING OFFICER PEPPER Admitting Unavailable AICHHOLZ, JAILER/TRAINING OFFICER PEPPER Primary Care Unavailable AICHHOLZ, JAILER/TRAINING OFFICER PEPPER Consulting Unavailable AICHHOLZ, JAILER/TRAINING OFFICER PEPPER Attending Unavailable AICHHOLZ, JAILER/TRAINING OFFICER PEPPER Admitting Unavailable AICHHOLZ, PEPPER J Referring [...] Unavailable Ashish CARTAGENA, Anastacio Primary Care Provider [phone] Aichholz FIBERGLASS BOAT ASSEMBLY SUPERVISOR, Pepper Unavailable Aichholz FIBERGLASS BOAT ASSEMBLY SUPERVISOR, Pepper Unavailable Aichholz, Pepper J Primary Care Provider MD James Elaine Attending Provider [phone] Pepper Sexton Primary Care Provider [phone] James Elanie MD Attending Provider PEPPER SEXTON Attending Unavailable AGUSTIN STOKES Attending Unavailable KARUNA CARRANZA Referring Unavailable KARUNA CARRANZA Attending Unavailable CARLIE, PEPPER Attending Unavailable APLBLANK SMITH Attending Unavailable JORGE, KARUNA Referring Unavailable FABIAN, RUPERT Lyn Attending Unavailable [...] every six hours for pain HYDROcodone-aceta minophen ([place]) 5-325 MG tablet Indications: Post-operative pain Take 1 tablet by mouth every 6 (six) hours if needed for severe pain for up to 3 days 12 tablet 05/26/2024 05/29/2024 Active [id number] 200 actuat albuterol 0.09 mg/actuat metered dose [...] Active Start: 03-19-2024 take 1 capsule by [facility] once daily at bedtime Doxepin 100 [...] Interpretation and review of laboratory results Abnormal [facility] Magnesium [Mass/Vol] 0.8 mg/dL Critically low 1.8 - 2.4 mg/dL [facility] Comment on above: RESULTS CALLED TO ALL THYROID STIM HORMONEon 0 10-07-2024 TSH Qn 2.054 m[IU]/L [facility] HbA1c (Bld) [Mass fraction]o n 10-07-2024 Interpretation and review of laboratory results Normal [facility]ematology [facility] Cell count[facility] 10-07-2024 HbA1c (Bld) [Mass fraction] 5.60 % [facility] No Panel Informationon 10-07 [facility] Amphetamine Screen Ql (U)Ord ered By: Imrosalie Asarosalie on 10-06-2024 Amphetamines Ql (U) Amphetamines screen Negativ e [facility] Barbiturates [Presence] in U rine by Screen methodOrdered By: Imad Asaad on 10-06-2024 Barbiturates Screen Ql (U) Barbiturates [Presence] in Urine by Screen method Negative [facility] Benzodiazepines Screen Ql (U )Ordered By: Imad Asaad on 10-06-2024 Benzodiazepines Ql (U) Benzodiazepines [Presence] in Urine by Screen method Negative [facility] Benzoylecgonine [Presence] i n Urine by Screen methodOrdered By: Imrosalie Elaine on 10-06-2024 Benzoylecgonine Screen Ql (U) Benzoylecgonine [Presence] in Urine by Screen method Negative [facility] Cannabinoids [Presence] in U rine by Screen methodOrdered By: James Elaine on 10-06-2024 Cannabinoids Screen Ql (U) Cannabinoids [Presence] in Urine by Screen method High Negative [facility] Comment on above: These are unconfirme d results and should not be used for legal purposes. Drug Cut-Off Concentration: AMPH 1000 ng/mL MAX 200 ng/mL JUHI 200 ng/mL COCM 300 ng/mL OP 300 ng/mL PCP 25 ng/mL THC 20 ng/mL Drug Screen,Urineon 10-06-19 Amphetamine Screen,Urine Negative Normal Negative [facility] Comment on above: Performed By: #### U RDS #### [address] Barbiturate Screen,Urine Negative Normal Negative [facility] Comment on above: Performed By: #### U RDS #### [place] [address] [place] Benzodiazepines Screen,Urine Negative Normal Negative [facility] Comment on above: Performed By: #### U RDS #### [address] Cannabinoid Screen,Urine Positive High Negative [facility] Comment on above: Result Comment: Thes e are unconfirmed results and should not be used for legal purposes. Drug Cut-Off Concentration: AMPH 1000 ng/mL MAX 200 ng/mL JUHI 200 ng/mL COCM 300 ng/mL OP 300 ng/mL PCP 25 ng/mL THC 20 ng/mL PERFORMED BY: [place] [address] PATHOLOGIST BACKUP ADMINISTRATIVE COORDINATOR JAN GRIMES M.D. Performed By: #### U RDS #### [place] [address] [place] Cocaine Screen,Urine Negative Normal Negative [facility] Comment on above: Performed By: #### U RDS #### [place] [address] [place] Opiate Screen,Urine Negative Normal Negative [facility] Comment on above: Performed By: #### U RDS #### [facility] [address] Phencyclidine Screen,Urine Negative Normal Negative [facility] Comment on above: Performed By: #### U RDS #### [facility] [address] Luciano 10-06-2024 L Specimen: [id number] Received: 10/06/24 Status: SAHIL Ruiz Num: [id number] Spec Type: Surgical Subm Dr: James Elaine MD Tissues: A Esophagus Biopsy (ESOPHAGUS BX R/O BARRETTS) Procedures: LEENA/Twila Alvarenga/Matt L4 Age/ Patient Sex Location Account Attending Physician Abram Guillaume 58/M [id number] James Elaine MD SPEC NUM: [id number] RECD: 10/06/24 STATUS: SAHIL EUGENIO NUM: [id number] PHILLIP: 10/06/24 [facility] DR: James Elaine MD ENTERED: 10/06/[address] [facility] [address]: SPEC TYPE: Surgical DEPT: S ENTERED BY: [id number] RECV BY: [id number] ORDERED: HE/2, Gross/Micro L4 ORDERED: HE/2, Gross/Micro [...] submitted in a single cassette. (1, ns, [id number] A) Microscopic Description Microscopic examination is performed. Specimen: [id number] Received: 10/06/24 Status: SAHIL Ruiz Num: [id number] Spec Type: Surgical Subm Dr: James Elaine MD Tissues: A Esophagus Biopsy (ESOPHAGUS BX R/O BARRETTS) Procedures: HE/2, Gross/Micro L4 Patient: MccameyAbram [id number] (Continued) Specimen: [id number] Received: 10/06/24 (Continued) Signed (signature on file) Sandro Baird MD 10/07/24 1009 Specimen: [id number] Received: 10/06/24 Status: SARAAdalberto Ruiz Num: [id number] Spec Type: Surgical Subm Dr: James Elaine MD Tissues: A Esophagus Biopsy (ESOPHAGUS BX R/O BARRETTS) Procedures: LEENA/Twila Alvarenga/Matt L4 Patient: Abram Guillaume [id number] (Continued) Specimen: [id number] Received: 10/06/24 (Continued) CPT Codes 76705 Specimen: Received: 10/06/24 Status: SAHIL Eugenio Num: [id number] Spec Type: Surgical Subm Dr: James Elaine MD Tissues: A Esophagus Biopsy (ESOPHAGUS BX R/O BARRETTS) Procedures: HE/Colette, Twila/Matt L4 Patient: Abram Guillaume [id number] (Continued) Signed (signature on file) Sandro Baird MD 10/07/24 1009 Normal [facility] Opiates [Presence] in Urine by Screen methodOrdered By: Imad Asaad on 10-06-2024 Opiates Screen Ql (U) Opiates [Presence] in Urine by Screen method Negative [facility] Phencyclidine Screen Ql (U)O rdered By: Imad Asaad on 10-06-2024 Phencyclidine Ql (U) Phencyclidine [Presence] in Urine by Screen method Negative [facility] ALL BASIC METABOLIC PANELon 09-28-2024 Anion gap [Moles/Vol] 14.1 mmol/L [facility] Calcium [Mass/Vol] 8.3 mg/dL Low 8.5 - 10. 1 mg/dL [facility] Chloride [Moles/Vol] 104 mmol/L 98 - 10 7 mmol/L [facility] CO2 [Moles/Vol] 28.4 mmol/L 21.0 - 32.0 mmol/L [facility] Creatinine [Mass/Vol] 1.61 mg/dL High 0.70 - 1.30 mg/dL [facility] GFR/1.73 sq M.predicted CKD-EPI (S/P/Bld) [Vol rate/Area] 54 Low >=60 mL/min/1.73m 2 [facility] Glucose [Mass/Vol] 137 mg/dL High 74 - 106 mg/dL [facility] Potassium [Moles/Vol] 3.5 mmol/L 3.5 - 5.1 mmol/L [facility] Sodium [Moles/Vol] 143 mmol/L 136 - 145 mmol/L [facility] TBH EGFR-NON AF FINNISH 45 Low >=60 mL/min/1.73m 2 [facility] Urea nitrogen [Mass/Vol] 17 mg/dL 7.0 - 18.0 mg/dL [facility] Urea nitrogen/Creatinine [Mass ratio] 10.6 mg/mg [facility] ALL MAGNESIUMon 09-28-2024 Magnesium [Mass/Vol] 0.8 mg/dL Critically low 1.8 - 2.4 mg/dL [facility] Comment on above: RESULTS CALLED TO ELIZABETH SEXTON NP No Panel Informationon 09-28 Interpretation and review of laboratory results Abnormal [facility] Amphetamine Screen Ql (U)Ord ered By: rosalie Elaine on 07-09-2024 Amphetamines Ql (U) Amphetamines screen Negativ e [facility] Amphetamines Ql (U) Negative Negative [facility] Barbiturates [Presence] in U rine by Screen methodOrdered By: rosalie Elaine on 07-09-2024 Barbiturates Screen Ql (U) Negative Negative [facility] Barbiturates Screen Ql (U) Barbiturates [Presence] in Urine by Screen method Negative [facility] Benzodiazepines Screen Ql (U )Ordered By: rosalie Elaine on 07-09-2024 Benzodiazepines Ql (U) Negative Negative [facility] Benzodiazepines Ql (U) Benzodiazepines [Presence] in Urine by Screen method Negative [facility] Benzoylecgonine [Presence] i n Urine by Screen methodOrdered By: rosalie Elaine on 07-09-2024 Benzoylecgonine Screen Ql (U) Negative Negative [facility] Benzoylecgonine Screen Ql (U) Benzoylecgonine [Presence] in Urine by Screen method Negative [facility] Cannabinoids [Presence] in U rine by Screen methodOrdered By: rosalie Holbrook on 07-09-2024 Cannabinoids Screen Ql (U) Negative Negative [facility] Comment on above: These are unconfirme d results and should not be used for legal purposes. Drug Cut-Off Concentration: AMPH 1000 ng/mL MAX 200 ng/mL JUHI 200 ng/mL COCM 300 ng/mL OP 300 ng/mL PCP 25 ng/mL THC 20 ng/mL Cannabinoids Screen Ql (U) Cannabinoids [Presence] in Urine by Screen method Negative [facility] Comment on above: These are unconfirme d results and should not be used for legal purposes. Drug Cut-Off Concentration: AMPH 1000 ng/mL MAX 200 ng/mL JUHI 200 ng/mL COCM 300 ng/mL OP 300 ng/mL PCP 25 ng/mL THC 20 ng/mL Drug Screen,Urineon 07-09-20 24 Amphetamine Screen,Urine Negative Normal Negative [facility] Comment on above: Performed By: #### U RDS #### [address] Barbiturate Screen,Urine Negative Normal Negative [facility] Comment on above: Performed By: #### U RDS #### [address] Benzodiazepines Screen,Urine Negative Normal Negative [facility] Comment on above: Performed By: #### U RDS #### [address] Cannabinoid Screen,Urine Negative Normal Negative [facility] Comment on above: Result Comment: Thes e are unconfirmed results and should not be used for legal purposes. Drug Cut-Off Concentration: AMPH 1000 ng/mL MAX 200 ng/mL JUHI 200 ng/mL COCM 300 ng/mL OP 300 ng/mL PCP 25 ng/mL THC 20 ng/mL PERFORMED BY: [place] [address] PATHOLOGIST BACKUP ADMINISTRATIVE COORDINATOR ZUHAIR KAUR M.D. Performed By: #### U RDS #### [address] Cocaine Screen,Urine Negative Normal Negative [facility] Comment on above: Performed By: #### U RDS #### [address] Opiate Screen,Urine Negative Normal Negative [facility] Comment on above: Performed By: #### U RDS #### [address] Phencyclidine Screen,Urine Negative Normal Negative [facility] Comment on above: Performed By: #### U RDS #### [address] No Panel InformationOrdered By: James Elaine on 07-09-2024 Miscellaneous Pathology Test See comment [facility] Comment on above: See report. Scanned copy available in EMR. Opiates [Presence] in Urine by Screen methodOrdered By: James Elaine on 07-09-2024 Opiates Screen Ql (U) Negative Negative [facility] Opiates Screen Ql (U) Opiates [Presence] in Urine by Screen method Negative [facility] Pathology Request for Lab Co rpon 07-09-2024 Pathology Request for Lab Itzel Normal [facility] Comment on above: Order Comment: PATHO LOGY GI SPECIMEN Result Comment: See report. Scanned copy available in EMR. PERFORMED BY: [facility] [address] [place] [address] PATHOLOGIST BACKUP ADMINISTRATIVE COORDINATOR ZUHAIR KAUR M.D. Performed By: #### P ATH TO [facility] #### [facility] [address] Phencyclidine Screen Ql (U)O rdered By: James Elaine on 07-09-2024 Phencyclidine Ql (U) Negative Negative [facility] Phencyclidine Ql (U) Phencyclidine [Presence] in Urine by Screen method Negative [facility] ALL MAGNESIUMon 06-23-2024 Magnesium [Mass/Vol] 1.5 mg/dL Low 1.8 - 2 .4 mg/dL [facility] ALL RENAL FUNCTION PANELon 1 Albumin [Mass/Vol] 3.3 g/dL Low 3.4 - 5.0 g/dL [facility] Anion gap [Moles/Vol] 12.6 mmol/L [facility] Calcium [Mass/Vol] 8.7 mg/dL 8.5 - 10. 1 mg/dL [facility] Chloride [Moles/Vol] 104 mmol/L 98 - 10 7 mmol/L [facility] CO2 [Moles/Vol] 26.1 mmol/L 21.0 - 32.0 mmol/L [facility] Creatinine [Mass/Vol] 1.72 mg/dL High 0.70 - 1.30 mg/dL [facility] GFR/1.73 sq M.predicted CKD-EPI (S/P/Bld) [Vol rate/Area] 50 Low 60 - PINF [facility] Glucose [Mass/Vol] 114 mg/dL High 74 - 106 mg/dL [facility] Phosphate [Mass/Vol] 3.2 mg/dL 2.6 - 4 .7 mg/dL [facility] Potassium [Moles/Vol] 4.7 mmol/L 3.5 - 5.1 mmol/L [facility] Sodium [Moles/Vol] 138 mmol/L 136 - 145 mmol/L [facility] TBH EGFR-NON AF FINNISH 41 Low 60 - PINF [facility] Urea nitrogen [Mass/Vol] 30.0 mg/dL High 7.0 - 18.0 mg/dL [facility] Urea nitrogen/Creatinine [Mass ratio] 17.4 mg/mg [facility] ALL URIC ACIDon 06-23-2024 Urate [Mass/Vol] 8.0 mg/dL High 3.5 - 7.2 mg/dL [facility] Estimated glomerular filtrat ion rate (GFR) non- Americanon 06-23-2024 GFR/1.73 sq M.predicted among non-blacks MDRD (S/P/Bld) [Vol rate/Area] 41 mL/min/{1.73_m2} Low >=60 [facility] - Chemistry and C hemistry - challengeon 06-23-2024 Albumin [Mass/Vol] 3.3 g/dL Low 3.4-5.0 [facility] Calcium [Mass/Vol] 8.7 mg/dL 8.5-10.1 [facility] Chloride [Moles/Vol] 104 mmol/L 98-107 [facility] CO2 [Moles/Vol] 26.1 mmol/L 21.0-32.0 [facility] Creatinine [Mass/Vol] 1.72 mg/dL High 0.70-1.30 [facility] GFR/1.73 sq M.predicted MDRD (S/P/Bld) [Vol rate/Area] 50 mL/min/{1.73_m2} Low >=60 [facility] Glucose [Mass/Vol] 114 mg/dL High 74-106 [facility] Magnesium [Mass/Vol] 1.5 mg/dL Low 1.8-2.4 [facility] Potassium [Moles/Vol] 4.7 mmol/L 3.5-5.1 [facility] Sodium [Moles/Vol] 138 mmol/L 136-145 [facility] Urate [Mass/Vol] 8.0 mg/dL High 3.5-7.2 [facility] Urea nitrogen [Mass/Vol] 30.0 mg/dL High 7.0-18.0 [facility] Urea nitrogen/Creatinine [Mass ratio] 17.4 mg/mg [facility] - Urinalysison Protein (U) [Mass/Vol] 12.6 mg/dL High <=11.9 [facility] No Panel Informationon 06-23 Urine Random Creatinine 78.13 mg/dL 20.00-300.00 [facility] Interpretation and review of laboratory results Abnormal [facility] Phosphorus Level 3.2 mg/dL 2.6-4.7 [facility] Serum or plasma anion gap de terminationon 06-23-2024 Anion gap [Moles/Vol] 12.6 mmol/L [facility] Urine protein/creatinine rat ioon 06-23-2024 Protein/Creatinine (U) [Ratio] 0.16 [facility] BASIC METABOLIC PANLon 04-27 Anion gap [Moles/Vol] 9 mmol/L Normal 5-15 [facility] Comment on above: Performed By: #### B MP #### [facility] ([id number]) [address] [place] [address] Calcium [Mass/Vol] 9.5 mg/dL Normal 8.5-10.5 [facility] Comment on above: Performed By: #### B MP #### [facility] ([id number]) [address], [address] [place] [address] Chloride [Moles/Vol] 105 mmol/L Normal 98-109 [facility] Comment on above: Performed By: #### B MP #### [facility] ([id number]) [address], [address] [place] [address] CO2 [Moles/Vol] 25 mmol/L Normal 22-32 [facility] Comment on above: Performed By: #### B MP #### [facility] ([id number]) [address] [place] [address] Creatinine [Mass/Vol] 1.60 mg/dL High 0.60-1.30 [facility] Comment on above: Result Comment: METH OD TRACEABLE TO IDMS STANDARD Performed By: #### B MP #### [facility] ([id number]) [address] [facility] [address] [place] [address] GFR/1.73 sq M.predicted among non-blacks MDRD (S/P/Bld) [Vol rate/Area] 50 mL/min/{1.73_m2} Low >59 [facility] Comment on above: Result Comment: Reported eGFR is based on the CKD-EPI 2020 equation that does not use a race coefficient. Performed By: #### B MP #### [facility] ([id number]) [address] [facility] [facility] [address] [place] [address] Glucose [Mass/Vol] 104 mg/dL High 65-99 [facility] Comment on above: Performed By: #### B MP #### [facility] ([id number]) [address] [facility] [address] [place] [address] Potassium [Moles/Vol] 4.2 mmol/L Normal 3.5-5.0 [facility] Comment on above: Performed By: #### B MP #### [facility] ([id number]) [address] [address] [place] [address] Sodium [Moles/Vol] 139 mmol/L Normal 134-146 [facility] Comment on above: Performed By: #### B MP #### [facility] ([id number]) [address] [facility] [address] [place] [address] Urea nitrogen [Mass/Vol] 31 mg/dL High 5-23 [facility] Comment on above: Performed By: #### B MP #### [facility] ([id number] [address], [address] [place] [address] CBC AUTO DIFFon 07-19-2022 BASO # 0.1 103/ul Normal 0.0-0.1 [facility] Comment on above: Performed By: #### C BC #### [facility] [address] [address] [address] Lavonne Tinoco Basophils/100 WBC (Bld) 0.9 % Normal 0.2-2.0 [facility] Comment on above: Performed By: #### C BC #### [facility] [address] [address] [address] Lavonne Tinoco EO # 0.4 103/ul Normal 0.0-0.7 [facility] Comment on above: Performed By: #### C BC #### [facility] [address] [address] [address] Lavonne Tinoco Eosinophils/100 WBC (Bld) 4.5 % Normal 0.9-7.0 [facility] Comment on above: Performed By: #### C BC #### [facility] [address] [address] [address] Lavonne Tinoco Erythrocyte distribution width (RBC) [Ratio] 13.4 % Normal 11.0-15.0 [facility] Comment on above: Performed By: #### C BC #### [facility] [address] [place] [address] Dr. Lavonne Tinoco Hematocrit (Bld) [Volume fraction] 45.0 % Normal 42.0-54.0 [facility] Comment on above: Performed By: #### C BC #### [facility] [id number] Lavonne Tinoco Hemoglobin (Bld) [Mass/Vol] 15.1 g/dL Normal 14.0-18.0 [facility] Comment on above: Performed By: #### C BC #### [facility] [id number] Lavonne Tinoco IG # 0.04 10e3/ul Critically high 0.00-0.03 [facility] Comment on above: Performed By: #### C BC #### [facility] [address] [place] [address] Dr. Lavonne Tinoco IG % 0.4 % Normal 0.0-0.5 [facility] Comment on above: Performed By: #### C BC #### [facility] [address] [place] [address] Dr. Lavonne Tinoco LYMPH # 2.0 103/ul Normal 1.2-3.8 [facility] Comment on above: Performed By: #### C BC #### [facility] [address] [place] [address] Dr. Lavonne Tinoco Lymphocytes/100 WBC (Bld) 21.6 % Normal 20.5-60.0 [facility] Comment on above: Performed By: #### C BC #### [facility] [address] [place] [address] Dr. Lavonne Tinoco MANUAL DIFF REQ NO Normal [facility] Comment on above: Performed By: #### C BC #### [facility] [address] [place] [address] Dr. Lavonne Tinoco MCH (RBC) [Entitic mass] 32.7 pg Normal 25.9-34.0 [facility] Comment on above: Performed By: #### C BC #### [facility] [address] [place] [address] Dr. Lavonne Tinoco MCHC (RBC) [Mass/Vol] 33.6 g/dL Normal 29.9-35.2 [facility] Comment on above: Performed By: #### C BC #### [facility] [address] [place] [address] Dr. Lavonne Tinoco MCV (RBC) [Entitic vol] 97.4 fL Critically high 80.0-94.0 [facility] Comment on above: Performed By: #### C BC #### [facility] [address] [place] [address] Dr. Lavonne Tinoco MONO # 0.6 103/ul Normal 0.3-0.8 [facility] Comment on above: Performed By: #### C BC #### [facility] [address] [place] [address] Dr. Lavonne Tinoco Monocytes/100 WBC (Bld) 6.0 % Normal 1.7-12.0 [facility] Comment on above: Performed By: #### C BC #### [facility] [address] [place] [address] Dr. Lavonne Tinoco NEUT # 6.3 103/ul Normal 1.4-6.5 [facility] Comment on above: Performed By: #### C BC #### [facility] [address] [place] [address] Dr. Lavonne Tinoco Neutrophils/100 WBC (Bld) 66.6 % Normal 43.0-75.0 [facility] Comment on above: Performed By: #### C BC #### [facility] [address] [place] [address] Dr. Lavonne Tinoco Platelet mean volume (Bld) [Entitic vol] 10.7 fL Normal 9.5-13.5 [facility] Comment on above: Performed By: #### C BC #### [facility] [address] [place] [address] Dr. Lavonne Tinoco PLT 300 103/ul Normal 150-450 [facility] Comment on above: Performed By: #### C BC #### [facility] [address] [place] [address] Dr. Lavonne Tinoco RBC 4.62 106/ul Critically low 4.70-6.10 [facility] Comment on above: Performed By: #### C BC #### [facility] [address] [place] [address] Dr. Lavonne Tinoco WBC 9.4 103/ul Normal 4.0-11.0 [facility] Comment on above: Performed By: #### C BC #### [facility] [address] [place] [address] Dr. Lavonne Tinoco FREE T4on 07-19-2022 Free T4 [Mass/Vol] 0.90 ng/dL Normal 0.76-1.46 [facility] Comment on above: Performed By: #### C MP, TSH, LIPID #### [facility] [address] [place] [address] Dr. Lavonne Tinoco LIPID PROFILEon 07-19-2022 CHOL-HDL RATIO NORM SEE BELOW Normal [facility] Comment on above: Result Comment: 3.3 - 4.4 LOW RISK 4.4 - 7.1 AVERAGE RISK 7.1 - 11.0 MODERATE RISK >11.0 HIGH RISK Performed By: #### C MP, TSH, LIPID #### [facility] [address] [address] [address] Lavonne Tinoco Cholesterol [Mass/Vol] 207 mg/dL Critically high <=200 [facility] Comment on above: Performed By: #### C MP, TSH, LIPID #### [facility] [address] [address] [address] Lavonne Tinoco Cholesterol in HDL [Mass/Vol] 37 mg/dL Critically low 40-60 [facility] Comment on above: Performed By: #### C MP, TSH, LIPID #### [facility] [address] [place] [address] Dr. Lavonne Tinoco Cholesterol in LDL [Mass/Vol] 143.8 mg/dL Normal [facility] Comment on above: Performed By: #### C MP, TSH, LIPID #### [facility] [address] [address] [address] Lavonne Tnioco Cholesterol.total/Chol esterol in HDL [Mass ratio] 5.6 {ratio} Normal [facility] Comment on above: Performed By: #### C MP, TSH, LIPID #### [facility] [address] [place] [address] Dr. Lavonne Tinoco HDL NORMAL > or = 60 mg/dl - LOW CARDIOVASCULAR RISK <40 mg/dl - HIGH CARDIOVASCULAR RISK Normal [facility] Comment on above: Performed By: #### C MP, TSH, LIPID #### [facility] [address] [place] [address] Dr. Lavonne Tinoco LDL CALC NORMAL SEE BELOW Normal [facility] Comment on above: Result Comment: <100 mg/dl OPTIMAL 100 - 129 mg/dl NEAR OR ABOVE OPTIMAL 130 - 159 mg/dl BORDERLINE HIGH 160 - 189 mg/dl HIGH >190 mg/dl VERY HIGH Performed By: #### C MP, TSH, LIPID #### [facility] [address] [address] [address] Lavonne Tinoco Triglyceride [Mass/Vol] 131 mg/dL Normal <=150 [facility] Comment on above: Performed By: #### C MP, TSH, LIPID #### [facility] [address] [address] [address] Lavonne Tinoco VLDL CALC 26.2 mg/dL Normal [facility] Comment on above: Performed By: #### C MP, TSH, LIPID #### [facility] [address] [address] [address] Lavonne Tinoco PROF 14(COMP METB)on 022 Albumin [Mass/Vol] 3.6 g/dL Normal 3.4-5.0 [facility] Comment on above: Performed By: #### C MP, TSH, LIPID #### [facility] [address] [place] [address] Dr. Lavonne Tinoco Albumin/Globulin [Mass ratio] 1.0 {ratio} Normal [facility] Comment on above: Performed By: #### C MP, TSH, LIPID #### [facility] [address] [address] [address] Lavonne Tinoco ALP [Catalytic activity/Vol] 85 U/L Normal 46-116 [facility] Comment on above: Performed By: #### C MP, TSH, LIPID #### [facility] [address] [address] [address] Lavonne Tinoco ALT [Catalytic activity/Vol] 33 U/L Normal 16-63 [facility] Comment on above: Performed By: #### C MP, TSH, LIPID #### [facility] [address] [address] [address] Lavonne Tinoco Anion gap [Moles/Vol] 9.2 mmol/L Normal [facility] Comment on above: Performed By: #### C MP, TSH, LIPID #### [facility] [address] [place] [address] Dr. Lavonne Tinoco AST [Catalytic activity/Vol] 17 U/L Normal 15-37 [facility] Comment on above: Performed By: #### C MP, TSH, LIPID #### [facility] [address] [address] [address] Lavonne Tinoco Bilirubin [Mass/Vol] 0.5 mg/dL Normal 0.2-1.0 [facility] Comment on above: Performed By: #### C MP, TSH, LIPID #### [facility] [address] [place] [address] Dr. Lavonne Tinoco Calcium [Mass/Vol] 8.5 mg/dL Normal 8.5-10.1 [facility] Comment on above: Performed By: #### C MP, TSH, LIPID #### [facility] [address] [address] [address] Lavonne Tinoco Chloride [Moles/Vol] 106 mmol/L Normal 98-107 [facility] Comment on above: Performed By: #### C MP, TSH, LIPID #### [facility] [address] [place] [address] Dr. Lavonne Tinoco CO2 [Moles/Vol] 31.3 mmol/L Normal 21.0-32.0 [facility] Comment on above: Performed By: #### C MP, TSH, LIPID #### [facility] [address] [place] [address] Dr. Lavonne Tinoco Creatinine [Mass/Vol] 1.06 mg/dL Normal 0.70-1.30 [facility] Comment on above: Performed By: #### C MP, TSH, LIPID #### [facility] [address] [place] [address] Dr. Lavonne Tinoco EGFR-AF FINNISH >60 Normal >=60 [facility] Comment on above: Performed By: #### C MP, TSH, LIPID #### [facility] [address] [place] [address] Dr. Lavonne Tinoco EGFR-NON AF FINNISH >60 Normal >=60 [facility] Comment on above: Performed By: #### C MP, TSH, LIPID #### [facility] [address] [place] [address] Dr. Lavonne Tinoco Globulin (S) [Mass/Vol] 3.6 g/dL Normal [facility] Comment on above: Performed By: #### C MP, TSH, LIPID #### [facility] [address] [address] [address] Lavonne Tinoco Glucose [Mass/Vol] 101 mg/dL Normal 74-106 [facility] Comment on above: Performed By: #### C MP, TSH, LIPID #### [facility] [address] [place] [address] Dr. Lavonne Tinoco Potassium [Moles/Vol] 3.5 mmol/L Normal 3.5-5.1 [facility] Comment on above: Performed By: #### C MP, TSH, LIPID #### [facility] [address] [place] [address] Dr. Lavonne Tinoco Protein [Mass/Vol] 7.2 g/dL Normal 6.4-8.2 [facility] Comment on above: Performed By: #### C MP, TSH, LIPID #### [facility] [address] [place] [address] Dr. Lavonne Tinoco Sodium [Moles/Vol] 143 mmol/L Normal 136-145 [facility] Comment on above: Performed By: #### C MP, TSH, LIPID #### [facility] [address] [place] [address] Dr. Lavonne Tinoco Urea nitrogen [Mass/Vol] 21.0 mg/dL Critically high 7.0-18.0 [facility] Comment on above: Performed By: #### C MP, TSH, LIPID #### [facility] [address] [place] [address] Dr. Lavonne Tinoco Urea nitrogen/Creatinine [Mass ratio] 19.8 mg/mg Normal [facility] Comment on above: Performed By: #### C MP, TSH, LIPID #### [facility] [address] [place] [address] Dr. Lavonne Tinoco TSHon 07-19-2022 TSH 1.947 uIU/mL Normal 0.358-3.[address] [facility] Comment on above: Performed By: #### C MP, TSH, LIPID #### [facility] [address] [place] [address] Dr. Lavonne Tinoco UA RANDOM W/MICROSCOPICon BACTERIA NONE SEEN Normal NONE SEEN [facility] Comment on above: Performed By: #### U AMIC #### [facility] [address] [place] [address] Dr. Lavonne Tinoco Bilirubin Ql (U) Negative Normal NEGATIVE [facility] Comment on above: Performed By: #### U AMIC #### [facility] [address] [place] [address] Dr. Lavonne Tinoco CAST NONE SEEN Normal NONE SEEN [facility] Comment on above: Performed By: #### U AMIC #### [facility] [address] [place] [address] Dr. Lavonne Tinoco Clarity (U) CLEAR Normal CLEAR [facility] Comment on above: Performed By: #### U AMIC #### [facility] [address] [place] [address] Dr. Lavonne Tinoco Color (U) YELLOW Normal YELLOW [facility] Comment on above: Performed By: #### U AMIC #### [facility] [address] [place] [address] Dr. Lavonne Tinoco Crystals LM Nom (Urine sed) NONE SEEN Normal NONE SEEN [facility] Comment on above: Performed By: #### U AMIC #### [facility] [address] [place] [address] Dr. Lavonne Tinoco Epithelial cells LM Ql (Urine sed) FEW Abnormal NONE SEEN /RARE [facility] Comment on above: Performed By: #### U AMIC #### [facility] [address] [place] [address] Dr. Lavonne Tinoco Glucose Ql (U) Negative Normal NEGATIVE [facility] Comment on above: Performed By: #### U AMIC #### [facility] [address] [place] [address] Dr. Lavonne Tinoco Hemoglobin Ql (U) Negative Normal NEGATIVE [facility] Comment on above: Performed By: #### U AMIC #### [facility] [address] [place] [address] Dr. Lavonne Tinoco Ketones Ql (U) Negative Normal NEGATIVE [facility] Comment on above: Performed By: #### U AMIC #### [facility] [address] [address] [address] Lavonne Tinoco LEUKOCYTES TRACE Abnormal NEGATIVE [facility] Comment on above: Performed By: #### U AMIC #### [facility] [address] [place] [address] Dr. Lavonne Tinoco MUCOUS NONE SEEN Normal NONE SEEN [facility] Comment on above: Performed By: #### U AMIC #### [facility] [address] [address] [address] Lavonne Tinoco Nitrite Ql (U) Negative Normal NEGATIVE [facility] Comment on above: Performed By: #### U AMIC #### [facility] [address] [place] [address] Dr. Lavonne Tinoco pH (U) 6.0 [pH] Normal 5-9 [facility] Comment on above: Performed By: #### U AMIC #### [facility] [address] [place] [address] Dr. Lavonne Tinoco RBC NONE SEEN Abnormal 0-2 [facility] Comment on above: Performed By: #### U AMIC #### [facility] [address] [address] [address] Lavonne Tinoco SPEC GRAVITY 1.020 Normal 1.005-<=1.025 [facility] Comment on above: Performed By: #### U AMIC #### [facility] [address] [address] [address] Lavonne Tinoco UA PROTEIN TRACE Normal NEGATIVE/ TRACE [facility] Comment on above: Performed By: #### U AMIC #### [facility] [address] [address] [address] Lavonne Tinoco Urobilinogen Qn (U) 2.0 {Erick'U}/dL Abnormal 0.2 - 1. 0 [facility] Comment on above: Performed By: #### U AMIC #### [facility] [address] [place] [address] Dr. Lavonne Tinoco WBC 0-2 Abnormal NONE SEEN [facility] Comment on above: Performed By: #### U AMIC #### [facility] [address] [address] [address] Lavonne Tinoco NM STRESS/REST MULTIon 04-04 NM STRESS/REST MULTI Patient: ABRAM GUILLAUME Exam Date: 04/04/2022 : 1965 Gender:M Ordering : ROSI HERRERAHayderJEMAL JAILER/TRAINING OFFICER Admission #: [id number] Family : Order #: [id number] CLICK HERE TO VIEW EXAM RADIOLOGY REPORT [...] MD on 04/04/2022 at 13:16 Normal [facility] ECHOCARDIO M/2D COMPLETEon 0 02-27-2022 ECHOCARDIO M/2D COMPLETE Patient: ABRAM GUILLAUME Exam Date: 02/27/2022 : 1965 Gender:M Ordering : ROSI SEXTON [facility] Admission #: [id number] Family : Order #: [id number] CLICK HERE TO VIEW EXAM ECHOCARDIOGRAM REPORT [...] Area(A4C): 21.60 cm2 Left Atrium Systolic Volume(A2C): 48781 mm3 Left Atrium Systolic Volume(A4C): 75403 mm3 Mitral Valve MV E to A [...] Peck M.D. on 02/28/2022 at 11:52 Normal [facility] ANKLE LEFT 3 [facility] 2 ANKLE LEFT 3 [facility] Department of Radiology [address] [place] [id number] Patient Name: ABRAM GUILLAUME : 1965 [...] above Electronically signed: Violeta Jay. Transcribed by: [email or web address], User Resident: Electronically Signed by: VIOLETA JAY @ 01/12/2022 03:24 PM Normal [facility] Comment on above: Order Comment: Views (X-RAY, ANKLE): AP, Lateral, Mortise , Weight Bearing?: Y GLYCOHEMOGLOBIN A1Con 2021 ADA RECOMMENDATION ADA THERAPEUTIC TARGET 6.0 - 7.0 ACTION SUGGESTED > 7.0 Normal [facility] Comment on above: Performed By: #### A 1C #### [facility] [address] [address] [address] Lavonne Tinoco Glucose [Mass/Vol] 100 mg/dL Normal [facility] Comment on above: Performed By: #### A 1C #### [facility] [address] [place], [place] [address] Dr. Lavonne Tinoco HbA1c (Bld) [Mass fraction] 5.1 % Normal <=6.0 [facility] Comment on above: Performed By: #### A 1C #### [facility] [address] [address] [address] Lavonne Tinoco MAGNESIUMon 12-25-2021 Magnesium [Mass/Vol] 1.7 mg/dL Normal 1.6-2.3 [facility] Comment on above: Performed By: #### M G, BMP #### [facility] [address] [address] [address] Lavonne Tinoco PROF CHEM 8 (BAS METB)on Anion gap [Moles/Vol] 12.3 mmol/L Normal [facility] Comment on above: Performed By: #### M G, BMP #### [facility] [address] [place] [address] Dr. Lavonne Tinoco Calcium [Mass/Vol] 8.7 mg/dL Normal 8.5-10.1 [facility] Comment on above: Performed By: #### M G, BMP #### [facility] [address] [place] [address] Dr. Lavonne Tinoco Chloride [Moles/Vol] 107 mmol/L Normal 98-107 [facility] Comment on above: Performed By: #### M G, BMP #### [facility] [address] [place] [address] Dr. Lavonne Tinoco CO2 [Moles/Vol] 27.4 mmol/L Normal 22.0-30.0 [facility] Comment on above: Performed By: #### M G, BMP #### [facility] [address] [place] [address] Dr. Lavonne Tinoco Creatinine [Mass/Vol] 1.50 mg/dL Critically high 0.66-1.25 [facility] Comment on above: Performed By: #### M G, BMP #### [facility] [address] [place] [address] Dr. Lavonne Tinoco EGFR-AF FINNISH 59 mL/min/1.73m2 Critically low >=60 [facility] Comment on above: Performed By: #### M G, BMP #### [facility] [address] [place] [address] Dr. Lavonne Tinoco EGFR-NON AF FINNISH 49 mL/min/1.73m2 Critically low >=60 [facility] Comment on above: Performed By: #### M G, BMP #### [facility] [address] [address] [address] Lavonne Tinoco Glucose [Mass/Vol] 103 mg/dL Normal 74-106 [facility] Comment on above: Performed By: #### M G, BMP #### [facility] [address] [address] [address] Lavonne Tinoco Potassium [Moles/Vol] 3.7 mmol/L Normal 3.4-5.0 [facility] Comment on above: Performed By: #### M G, BMP #### [facility] [address] [address] [address] Lavonne Tinoco Sodium [Moles/Vol] 143 mmol/L Normal 137-145 [facility] Comment on above: Performed By: #### M G, BMP #### [facility] [address] [address] [address] Lavonne Tinoco Urea nitrogen [Mass/Vol] 17.0 mg/dL Normal 7.0-18.0 [facility] Comment on above: Performed By: #### M G, BMP #### [facility] [address] [place] [address] Dr. Lavonne Tinoco Urea nitrogen/Creatinine [Mass ratio] 11.3 mg/mg Normal [facility] Comment on above: Performed By: #### M G, BMP #### [facility] [address] [place] [address] Dr. Lavonne Tinoco Vital Signs Date Time Vital Sign Value Performing Clinician Facility 10-07-2024 09:05-0500 Body height 175.3 cm Pepper Sexton [employer] Work Phone: [facility] 10-07-2024 09:05-0500 Body mass index (BMI) [Ratio] 41.47 kg/m2 Pepper Sexton [employer] Work Phone: [facility] 10-07-2024 09:05-0500 Body temperature 97.81 [degF] Pepper Sexton [employer] Work Phone: [facility] 10-07-2024 09:05-0500 Body weight 127.37 kg Pepper Aichholz [employer] Work Phone: [facility] 10-07-2024 09:05-0500 Diastolic blood pressure 84 mm[Hg] Pepper Aichholz [employer] Work Phone: [facility] 10-07-2024 09:05-0500 Heart rate 92 /min Pepper Aichholz [employer] Work Phone: [facility] 10-07-2024 09:05-0500 Respiratory rate 22 /min Pepper Aichholz [employer] Work Phone: [facility] 10-07-2024 09:05-0500 SaO2% (BldA) [Mass fraction] 96 % Pepper Aichholz [employer] Work Phone: [facility] 10-07-2024 09:05-0500 Systolic blood pressure 138 mm[Hg] Pepper Aichholz [employer] Work Phone: [facility] 10-06-2024 09:05-0500 Diastolic blood pressure 86 mm[Hg] Pepper Aichholz Work Phone: [facility] 10-06-2024 09:05-0500 Heart rate 88 /min Pepper Aichholz Work Phone: [facility] 10-06-2024 09:05-0500 Respiratory rate 18 /min Pepper Aichholz Work Phone: [facility] 10-06-2024 09:05-0500 SaO2% (BldA) [Mass fraction] 96 % Pepper Aichholz Work Phone: [facility] 10-06-2024 09:05-0500 Systolic blood pressure 136 mm[Hg] Pepper Aichholz Work Phone: [facility] 10-06-2024 07:31-0500 Body height 177.8 cm Pepper Aichholz Work Phone: [facility] 10-06-2024 07:31-0500 Body weight 115.66 kg Pepper Aichholz Work Phone: [facility] 07-09-2024 13:55-0400 Diastolic blood pressure 74 mm[Hg] Pepper Aichholz Work Phone: [facility] 07-09-2024 13:55-0400 Heart rate 74 /min Pepper Aichholz Work Phone: [facility] 07-09-2024 13:55-0400 Respiratory rate 18 /min Pepper Aichholz Work Phone: [facility] 07-09-2024 13:55-0400 SaO2% (BldA) [Mass fraction] 100 % Pepper Aichholz Work Phone: [facility] 07-09-2024 13:55-0400 Systolic blood pressure 111 mm[Hg] Pepper Aichholz Work Phone: [facility] 07-09-2024 11:51-0400 Body height 175.26 cm Pepper Aichholz Work Phone: [facility] 07-09-2024 11:51-0400 Body temperature 98.6 [degF] Pepper Aichholz Work Phone: [facility] 07-09-2024 11:51-0400 Body weight 117.9 kg Pepper Aichholz Work Phone: [facility] 07-06-2024 09:44-0400 Body height 175.3 cm Pepper Aichholz [employer] Work Phone: [facility] 07-06-2024 09:44-0400 Body mass index (BMI) [Ratio] 37.18 kg/m2 Pepper Aichholz [employer] Work Phone: [facility] 07-06-2024 09:44-0400 Body temperature 98.1 [degF] Pepper Aichholz [employer] Work Phone: [facility] 07-06-2024 09:44-0400 Body weight 114.22 kg Pepper Sexton [employer] Work Phone: [facility] 07-06-2024 09:44-0400 Diastolic blood pressure 82 mm[Hg] Pepper Serratoholz [employer] Work Phone: [facility] 07-06-2024 09:44-0400 Heart rate 79 /min Pepper Sexton [employer] Work Phone: [facility] 07-06-2024 09:44-0400 Respiratory rate 19 /min Pepper Sexton [employer] Work Phone: [facility] 07-06-2024 09:44-0400 SaO2% (BldA) [Mass fraction] 93 % Pepper Serratojemal [employer] Work Phone: [facility] 07-06-2024 09:44-0400 Systolic blood pressure 126 mm[Hg] Pepper Sexton [employer] Work Phone: [facility] 06-24-2024 08:39-0400 Body height 175.26 cm [facility] 06-24-2024 08:39-0400 Body mass index (BMI) [Ratio] 42.3 kg/m2 [facility] 06-24-2024 08:39-0400 Body weight 130 kg [facility] 06-23-2024 08:50-0400 Body height 175.26 cm [facility] 06-23-2024 08:50-0400 Body mass index (BMI) [Ratio] 42.3 kg/m2 [facility] 06-23-2024 08:50-0400 Body temperature 98.2 [degF] [facility] 06-23-2024 08:50-0400 Body weight 129.89 kg [facility] 06-23-2024 08:50-0400 Diastolic blood pressure 77 mm[Hg] [facility] 06-23-2024 08:50-0400 Heart rate 91 /min [facility] 06-23-2024 08:50-0400 Respiratory rate 18 /min [facility] 06-23-2024 08:50-0400 SaO2% (BldA) [Mass fraction] 93 % [facility] 06-23-2024 08:50-0400 Systolic blood pressure 115 mm[Hg] [facility] 03-19-2024 09:37-0400 Body height 175.26 cm [facility] 03-19-2024 09:37-0400 Body mass index (BMI) [Ratio] 39.4 kg/m2 [facility] 03-19-2024 09:37-0400 Body temperature 97.8 [degF] [facility] 03-19-2024 09:37-0400 Body weight 121.1 kg [facility] 03-19-2024 09:37-0400 Diastolic blood pressure 98 mm[Hg] [facility] 03-19-2024 09:37-0400 Heart rate 94 /min [facility] 03-19-2024 09:37-0400 Respiratory rate 20 /min [facility] 03-19-2024 09:37-0400 SaO2% (BldA) [Mass fraction] 95 % [facility] 03-19-2024 09:37-0400 Systolic blood pressure 158 mm[Hg] [facility] Encounters Encounter Date Encounter Type Care Provider Facility Start: 11-04-2024 End: 11-04-2024 Refill Pepper Sexton [employer] Work Phone: [facility] Comment on above: Hypomagnesemia; Restless legs syndrome Start: 10-08-2024 End: 10-08-2024 Refill Pepper Sexton [employer] Work Phone: [facility] Comment on above: Hypothyroidism, unsp ecified type (CMS/HCC) (Primary Dx); Hypomagnesemia Start: 10-07-2024 End: 10-07-2024 Bamboo flowsheet Pepper Sexton [employer] Work Phone: [facility] Start: 10-07-2024 End: 10-07-2024 Bamboo flowsheet Pepper Carlie [employer] Work Phone: [facility] Start: 10-07-2024 End: 10-07-2024 Clinisync Result Encounter Pepper Carlie SR Work Phone: [facility] External Department Unsolicited Start: 10-07-2024 End: 10-07-2024 Office outpatient visit 25 minutes Pepper Sexton [employer] SUPERVISOR Work Phone: [facility] Comment on [...] Non-patient / Non-visit Pepper lorenz Work Phone: [facility] Work Phone: Start: 10-06-2024 End: 10-06-2024 Admission to same day surgery center Pepper Sexton Work Phone: [facility] Work Phone: Start: 10-06-2024 End: 10-06-2024 ambulatory Pepper Sexton Work Phone: [facility] Work Phone: Start: 09-28-2024 End: 09-28-2024 Clinisync Result Encounter Pepper Sexton NP Work Phone: [facility] External Department Unsolicited Start: 09-28-2024 End: 09-28-2024 Clinisync Result Encounter Pepper Carlie [employer] SUPERVISOR Work Phone: [facility] External Department Unsolicited Start: 09-28-2024 End: 09-28-2024 Refill Pepper Aichayderholz [employer] SUPERVISOR Work Phone: [facility] Comment on above: Hypomagnesemia (Prim ирина Dx) Start: 09-14-2024 End: 09-14-2024 Refill Pepper Aichayderholz [employer] SUPERVISOR Work Phone: [facility] Comment on above: Hypomagnesemia Start: 09-14-2024 End: 09-15-2024 Refill Pepper Aichayderholz [employer] SUPERVISOR Work Phone: [facility] Comment on above: Fibromyalgia Start: 09-04-2024 End: 09-04-2024 Orders Only Pepper Carlie [employer] SUPERVISOR Work Phone: [facility] Comment on above: Hypomagnesemia (Prim ирина Dx) Start: 09-04-2024 End: 09-04-2024 Refill Pepper Rojelioholz [employer] SUPERVISOR Work Phone: [facility] Comment on above: Hypomagnesemia Start: 07-09-2024 Non-patient / Non-visit Pepper lorenz Work Phone: [facility] G[facility] Work Phone: Start: 07-09-2024 End: 07-09-2024 Admission to same day surgery center Pepper Sexton Work Phone: [facility] Work Phone: Start: 07-09-2024 End: 07-09-2024 ambulatory Pepper Sexton Work Phone: [facility] Work Phone: Start: 07-06-2024 End: 07-06-2024 Bamboo flowsheet Pepper Sexton [employer] SUPERVISOR Work Phone: [facility] Start: 07-06-2024 End: 07-06-2024 Bamboo flowsheet Pepper Sexton [employer] SUPERVISOR Work Phone: [facility] Start: 07-06-2024 End: 07-06-2024 Office outpatient visit 25 minutes Pepper Sexton [employer] SUPERVISOR Work Phone: [facility] Comment on [...] Bamboo flowsheet Rupert Bo DO Work Phone: [facility] Start: 06-30-2024 End: 06-30-2024 Postop follow up visit related to original px Rupert Bo DO Work Phone: [facility] Comment on above: 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) Start: 06-30-2024 End: 06-30-2024 ambulatory RUPERT BO Not Available Start: 06-29-2024 End: 06-29-2024 Refill Pepper Sexton [employer] SUPERVISOR Work Phone: [facility] Comment on above: Restless legs syndro me Start: 06-24-2024 End: 06-24-2024 ambulatory [facility] Work Phone: Start: 06-24-2024 End: 06-24-2024 Patient encounter procedure [facility] Gastroenterology Work Phone: Start: 06-23-2024 End: 06-23-2024 Clinisync Result Encounter Generic External Data Provider [facility] External Department Unsolicited Start: 06-23-2024 End: 06-23-2024 Clinisync Result Encounter Generic External Data Provider [facility] External Department Unsolicited Start: 06-23-2024 End: 06-23-2024 ambulatory [facility] Work Phone: Start: 06-23-2024 End: 06-23-2024 Patient encounter procedure [facility] Nephrology [place] Work Phone: Start: 06-18-2024 End: 06-18-2024 Refill Agustin Stokes MD Work Phone: [facility] [address] [address] Comment on above: Degenerative disc di sease, cervical (Primary Dx) Start: 06-09-2024 End: 06-09-2024 Refill Pepper Sexton [employer] SUPERVISOR Work Phone: [facility] Comment on above: Hypomagnesemia questions Start: 06-03-2024 End: 06-03-2024 Bamboo flowsheet Blank B Apling [employer] SUPERVISOR Work Phone: [facility] Start: 06-03-2024 End: 06-03-2024 Bamboo flowsheet Blank B Apling [employer] SUPERVISOR Work Phone: [facility] Start: 06-03-2024 End: 06-03-2024 ambulatory BLANK B APLING Not Available Start: 06-03-2024 End: 06-03-2024 Postop follow up visit related to original px Blank B Apling [employer] SUPERVISOR Work Phone: [facility] Comment on above: 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) Start: 05-27-2024 End: 05-27-2024 Evaluation and management of inpatient KENNEDI GRESHAM [facility] Start: 05-27-2024 End: 05-27-2024 Evaluation and management of inpatient RUPERT Eboni FABIAN [facility] Start: 05-26-2024 End: 05-26-2024 Refill Tiburcio Noel NP Work Phone: [facility] Comment on above: Post-operative pain (Primary Dx) Start: 05-04-2024 Preoperative state Tiburcio Noel NP Work Phone: [facility] Start: 05-04-2024 End: 05-04-2024 ambulatory PEPPER AICHHOLZ Not Available Start: 04-30-2024 End: 04-30-2024 ambulatory RUPERT BO Not Available Start: 04-27-2024 End: 04-27-2024 ambulatory RUPERT BO [facility] Start: 04-27-2024 [facility]counter [facility] other [facility]cedural [facility] Start: 04-09-2024 End: 04-09-2024 ambulatory PEPPER AICHHOLZ Not Available Start: 03-19-2024 End: 03-19-2024 ambulatory [facility] Work Phone: Start: 03-19-2024 End: 03-19-2024 Patient encounter procedure [facility] Work Phone: Start: 03-11-2024 [...] Not Available Start: 07-19-2022 End: 07-20-2022 ambulatory JAILER/TRAINING OFFICER PEPPER AICHHOLZ Facility:H1 Start: 04-04-2022 End: 04-05-2022 ambulatory JAILER/TRAINING OFFICER PEPPER AICHHOLZ Facility:[facility] Start: 02-27-2022 End: 02-28-2022 ambulatory ROSI SEXTON Facility:[facility] Start: 01-16-2022 End: 01-17-2022 ambulatory JAILER/TRAINING OFFICER PEPPER SERRATOHOLEulalio Facility:[facility]1 Start: 12-25-2021 End: 12-26-2021 ambulatory ROSI SERRATOHOLEulalio Facility: Procedures Date Procedure Procedure Detail Performing Clinician Start: 10-07-2024 ALL MAGNESIUM Pepper Aichholz [employer] SUPERVISOR Work Phone: Start: 10-07-2024 ALL THYROID STIM HORMONE Pepper Danez N P Work Phone: Start: 10-07-2024 Hemoglobin glycosylated a1c Pepper Herrerahhol z [employer] SUPERVISOR Work Phone: Start: 10-06-2024 Esophagogastroduodenoscopy Pepper Rojelioholz Work Phone: Start: 09-28-2024 ALL BASIC METABOLIC PANEL Pepper Danez [employer] SUPERVISOR Work Phone: Start: 09-28-2024 ALL MAGNESIUM Pepper Aichholz [employer] SUPERVISOR Work Phone: Start: 07-09-2024 Esophagogastroduodenoscopy Pepper Javierhholz Work Phone: Start: 06-23-2024 ALL MAGNESIUM Generic External Data Provider Start: 06-23-2024 ALL RENAL FUNCTION PANEL Generic Externa l Data Provider Start: 06-23-2024 ALL URIC ACID Generic External Data Provider Start: 07-19-2022 PSA screening ROSI SERRATOJAYLENEulalio Comment on above: Performed By: #### CMP, TSH, LIPID #### [facility] [address] [place] [address] Dr. Lavonne Tinoco Plan of Treatment Date Care Activity Detail Author Start: 08-11-2025 Screening for malign ant neoplasm of colon [facility] Start: 01-06-2025 End: 01-06-2025 Patient encounter procedure 01/06/2025 9:00 AM EDT [facility] [address] [place] [address] Pepper Sexton NP [address] [place] [address] [facility] Start: 12-06-2024 End: 10-08-2025 Thyrotropin [Units/volume] in Serum or Plasma TSH Lab Routine Hypothyroidism, unspecified type (CMS/HCC) Expected: 12/06/2024 (Approximate), Expires: 10/08/2025 [facility] Work Phone: Comment on above: Expected: 12/06/2024 (Approximate), Expires: 10/08/2025 Start: 12-06-2024 End: 10-08-2025 Thyroxine (T4) free [Mass/volume] in Serum or Plasma T4, free Lab Routine Hypothyroidism, unspecified type (CMS/HCC) Expected: 12/06/2024 (Approximate), Expires: 10/08/2025 [facility] Comment on above: Expected: 12/06/2024 (Approximate), Expires: 10/08/2025 Start: 10-22-2024 End: 10-08-2025 Magnesium [Mass/volume] in Serum or Plasma Magnesium Lab Routine Hypomagnesemia Expected: 10/22/2024 (Approximate), Expires: 10/08/2025 [facility] Comment on above: Expected: 10/22/2024 (Approximate), Expires: 10/08/2025 Start: 10-07-2024 End: 10-07-2025 Magnesium [Mass/volume] in Serum or Plasma Magnesium Lab Routine Hypomagnesemia Expected: 10/07/2024 (Approximate), Expires: 10/07/2025 [facility] Comment on above: Expected: 10/07/2024 (Approximate), Expires: 10/07/2025 Start: 10-07-2024 End: 10-07-2025 Thyrotropin [Units/volume] in Serum or Plasma TSH Lab Routine Hypothyroidism, unspecified type (CMS/HCC) Expected: 10/07/2024 (Approximate), Expires: 10/07/2025 [facility] Work Phone: Comment on above: Expected: 10/07/2024 (Approximate), Expires: 10/07/2025 Start: 10-07-2024 End: 10-07-2025 Thyroxine (T4) free [Mass/volume] in Serum or Plasma T4, free Lab Routine Hypothyroidism, unspecified type (CMS/HCC) Expected: 10/07/2024 (Approximate), Expires: 10/07/2025 [facility] Comment on above: Expected: 10/07/2024 (Approximate), [...] (CMS/HCC); Hypomagnesemia; Marijuana use; Pre-diabetes Start: 10-06-2024 [facility] Start: 09-04-2024 End: 09-04-2025 Basic metabolic 1998 panel - Serum or Plasma Basic metabolic panel Lab Routine Hypomagnesemia Expected: 09/04/2024 (Approximate), Expires: 09/04/2025 [facility] Comment on above: Expected: 09/04/2024 (Approximate), Expires: 09/04/2025 Start: 09-04-2024 End: 09-04-2025 Magnesium [Mass/volume] in Serum or Plasma Magnesium Lab Routine Hypomagnesemia Expected: 09/04/2024 (Approximate), Expires: 09/04/2025 [facility] Work Phone: Comment on above: Expected: 09/04/2024 (Approximate), Expires: 09/04/2025 Start: 07-09-2024 [facility] Start: 07-06-2024 End: 07-06-2024 Patient encounter procedure [facility] Comment on above: Arrived Start: 06-30-2024 End: 06-30-2024 Patient encounter procedure [facility] Comment on above: Arrived Start: 06-09-2024 End: 06-09-2025 Basic metabolic 1998 panel - Serum or Plasma Basic metabolic panel Lab Routine Hypomagnesemia Expected: 06/09/2024 (Approximate), Expires: 06/09/2025 [facility] Work Phone: Comment on above: Expected: 06/09/2024 (Approximate), Expires: 06/09/2025 Start: 06-09-2024 End: 06-09-2025 Magnesium [Mass/volume] in Serum or Plasma Magnesium Lab Routine Hypomagnesemia Expected: 06/09/2024 (Approximate), Expires: 06/09/2025 [facility] Comment on above: Expected: 06/09/2024 (Approximate), Expires: 06/09/2025 Start: 06-03-2024 End: 06-03-2024 Patient encounter procedure 06/03/2024 8:45 AM EDT Office Visit [facility] [address] [place] [address] Blank Mcfarlane, REMBERTO [address] [place] [address] [facility] Start: 05-27-2024 End: 05-27-2024 Patient encounter procedure 05/27/2024 10:40 AM EDT Office Visit [facility] [address] [place] [address] Karuna Carranza PA [facility] [place] [address] [facility] [address] Start: 05-27-2024 End: 05-27-2024 Patient encounter procedure 05/27/2024 7:30 AM EDT Procedure Visit [facility] Rupert Bo DO [address] [place] [address] [facility] Start: 1965 Screening for malign ant neoplasm of colon [facility] Patient Education [facility] Work Phone: Renal function 1999 panel - Serum or Plasma [facility] Renal function 1999 panel - Serum or Plasma [facility] Payers Date Payer Category Payer Self-pay 2019 [facility] BCBS [id number] 2019 Unknown BCBS BCBS [id number] 2019-Present [phone] [address] [place], [place] [address] [id number] 1967 Unknown [id number] 2.16.840.1.446492.3.579.2 .593 1967 Unknown [id number] 2.16.840.1.378632.3.579.2 .593 1967 Unknown [id number] 2.16.840.1.768990.3.579.2 .593 1967 Unknown [id number] 2.16.840.1.117127.3.579.2 .593 1967 Unknown [id number] 2.16.840.1.891864.3.579.2 .593 1967 Unknown [id number] 2.16.840.1.583349.3.579.2 .1286 1967 Unknown [id number] 2.16.840.1.304945.3.579.2 .1286 1967 Unknown [id number] 2.16.840.1.278021.3.579.2 .1285 1967 Unknown [id number] 2.16.840.1.737235.3.579.2 .1285 1967 Unknown [id number] 2.16.840.1.812529.3.579.2 .1285 1967 Unknown [id number] 2.16.840.1.855109.3.579.2 .128 1967 Unknown [id number] 2.16.840.1.874587.3.579.2 .1258 1967 Unknown [id number] 2.16.840.1.334567.3.579.2 .1258 1967 Unknown [id number] 2.16840.1.168796.3.579.2 .1258 1967 Unknown [id number] 2.16.840.1.309393.3.579.2 .1258 1967 Unknown [id number] 2.16.840.1.957482.3.579.2 .1258 1967 Unknown [id number] 2.16.840.1.180990.3.579.2 .1258 1967 Unknown [id number] 2.16.840.1.117798.3.579.2 .1258 1967 Unknown [id number] 2.16.840.1.077442.3.579.2 .1258 1967 Unknown [id number] 2.16.840.1.632709.3.579.2 .1258 1967 Unknown [id number] 2.16.840.1.351584.3.579.2 .1258 1967 Unknown [id number] 2.16.840.1.794851.3.579.2 .1258 1967 Unknown [id number] 2.16.840.1.955271.3.579.2 .1259 1967 Unknown [id number] 2.16.840.1.583109.3.579.2 .1259 1967 Unknown [id number] 2.16.840.1.882360.3.579.2 .1259 1959 Unknown [id number] 1959 Unknown [id number] Unknown [place] BC/BS [id number] Unknown [id number] Unknown [id number] 2.16.840.1.177818.3.579.2 .531 Unknown [id number] 2.16.840.1.363584.3.579.2 .531 Social History Date Type Detail Facility Start: 03-19-2024 Tobacco smoking status [facility] Current some day smoker [facility] Start: 1965 Sex Assigned At Male [facility] Start: 04-30-2024 End: 06-23-2024 Tobacco smoking status [facility] Ex-smoker (finding) [facility] History of tobacco use Current smoker [facility] [...] to any clubs or organizations such as methodist groups, unions, fraternal or athletic groups, or [...] smoking status NHIS Never smoked tobacco (finding) [facility] Start: 10-06-2024 Sex Male (finding) [facility] Goals Date Patient Goal Desired Activity /State [...] kidney disease. There is no history of CAD/AR. 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 documented in this encounter [facility] 10-06-2024 History and physical note Note Date/Time October 06, 2024 8:32am [facility] [address] [place] [address] Gastroenterology H&P Signed Patient: Abram Guillaume MR#: [id number] 4 : 1965 Acct:[id number] Age/Sex: 58 / M Adm Date: 5 Loc: Room: Type: [facility] Attending Dr: James Elaine MD Copies to: [...] <Electronically signed by James Elaine MD> 10/06/2432 [facility] Work Phone: 1(931) 230-369601-14-2025 [place] [address] EGD Procedure Note Signed Patient: Abram Guillaume MR#: [id number] 4 : 1965 Acct:[id number] Age/Sex: 58 / M Adm Date: 5 Loc: Room: Type: [facility] Attending Dr: James Elaine MD Copies to: MD Pepper Werner NP-C~ Esophagogastroduodenoscopy Date/Provider Date: 10/06/2024 James Elaine MD Procedure Findings: Procedure: EGD with biopsy Indication: 58-year-old man with history of esophagitis here for EGD to assess for Diana's Pre-operative diagnosis: History of esophagitis Post-operative diagnosis: [place]-colored mucosa in the esophagus otherwise normal EGD [...] MD 10/06/24 0832 Signed By: 10/06/24 0834 [facility]01-14-2025 [place] [address] Gastroenterology H&P Signed Patient: Abram Guillaume MR#: [id number] 4 : 1965 Acct:[id number] Age/Sex: 58 / M Adm Date: 5 Loc: Room: Type: [facility] Attending Dr: James Elaine MD Copies to: [...] James Elaine MD 10/06/24830 Signed By: 10/06/24831 [facility]01-06-2025 History of Present illness Narrative * Pepper [...] suggestions regarding this matter. documented in [facility]Haw[facility] [id number] [facility] History of Present illness Narrative* Pepper Sexton [...] scope with GI, has been off his PPI/B3ilwxcbod for up coming EGD etc Continue with [...] scope with GI, has been off his PPI/T8nyisifwx for up coming EGD etc Continue with GI Essential hypertension, benign (CMS/HCC) - Primary At goal no med dose chagnes Hypothyroidism (CMS/HCC) No med dose changes Hypomagnesemia Continue with TID magnesium and fu with Nephrology Relevant Medications magnesium oxide (Mag-Ox) 400 MG tablet Obesity (BMI 30-39.9) Needs flu shot declines documented in this encounterHawth[facility] [id number] History of Present illness Narrative* Rupert Bo, [...] Dr. Bo/lloyd Bo D.O. documented in this encounterHawthorn Children's Psychiatric [id number] Telephone encounter Note* Telephone Encounter - DEBI Cho - 06/09/2024 12:22 PM EDT Spoke with patient and he will RTW tomorrow with light duty [facility] Work Phone: 1([phone]) 154-604809-17-2024 Miscellaneous Notes* Telephone Encounter - DEBI Cho [...] questions, if you could call him at [phone] documented in this encounterHawthorn Children's Psychiatric [id number] Telephone encounter Note* Telephone Encounter - DEBI Cho - 06/09/2024 12:16 PM EDT Spoke with patient and answered questions, he would like to RTW tomorrow with restrictions, spoke with Dr Bo and he said that was fine [facility] [id number] Telephone encounter Note* Telephone Encounter - Sarah Marshall - 06/09/2024 12:13 PM EDT Pt called and left vm stated he has PO questions, if you could call him at [phone] [facility] [id number] History of Present illness Narrative* Blank Mcfarlane [...] weeks, continue off work documented in this [facility]09-03-2024 Telephone encounter Note* Telephone Encounter - Tiburcio Noel NP - 05/26/2024 12:16 PM EDT Post op pain rx. PDMP reviewed [facility] [id number] Miscellaneous Notes* Telephone Encounter - Tiburcio Noel NP - 05/26/2024 12:16 PM EDT Post op pain rx. PDMP reviewed [facility] Diagnosis Onset Date Resolution Status GERD (gastroesophageal reflux disease) acute Hypomagnesemia acute Primary hypertension [facility] Work Phone: Evaluation note* Diagnosis Onset Date Resolution Status GERD (gastroesophageal reflux disease) acute Hypomagnesemia acute Primary hypertension acute Dyspepsia acute GERD (gastroesophageal reflux disease) acute [facility] Work Phone: Evaluation note* Diagnosis Restless legs syndrome Restless legs syndrome (RLS) documented in this encounter [facility] HealthcareEvaluation note* Diagnosis Cubital tunnel syndrome on right- Primary documented in this encounter [facility] HealthcareEvaluation note* Diagnosis Essential hypertension, benign (CMS/HCC)- [...] present Obesity (BMI 30-39.9) Hypothyroidism, unspecified type ([facility]/HCC) Needs flu shot Need for prophylactic vaccination and inoculation against influenza documented in this encounter [facility] HealthcareEvaluation note* Diagnosis Hypomagnesemia Disorders of magnesium metabolism documented in this encounter [facility] HealthcareEvaluation note* Diagnosis Essential hypertension, benign ([facility]/HCC)- Primary Essential hypertension, benign Screening for prostate cancer Special screening for malignant neoplasm of prostate Hypomagnesemia Disorders of magnesium metabolism Mixed hyperlipidemia ([facility]/HCC) Mixed hyperlipidemia Hyperglycemia Other abnormal glucose Hypothyroidism, unspecified type ([facility]) Restless legs Restless legs syndrome (RLS) Fibromyalgia Unspecified myalgia and myositis Pulmonary hypertension ([facility]/HCC) Other chronic pulmonary heart diseases Restless legs syndrome Restless legs syndrome (RLS) Gastroesophageal reflux disease, unspecified whether esophagitis present Atopic dermatitis, unspecified type Gastroesophageal reflux disease, unspecified whether esophagitis present- Primary Essential hypertension, benign ([facility]/HCC) Essential hypertension, benign Hypothyroidism, unspecified type ([facility]/HCC) Mixed hyperlipidemia ([facility]/HCC) Mixed hyperlipidemia Hypomagnesemia Disorders of magnesium metabolism Obesity (BMI 30-39.9) Hypomagnesemia- Primary Disorders of magnesium metabolism Fibromyalgia Unspecified myalgia and myositis Atopic dermatitis, unspecified type Gastroesophageal reflux disease, unspecified whether esophagitis present Obesity (BMI 30-39.9) Essential hypertension, benign ([facility]/HCC) Essential hypertension, benign Essential (primary) hypertension ([facility]/HCC)- Primary Unspecified essential hypertension Morbid (severe) obesity due to excess calories ([facility]) Body mass index (BMI) 38.0-38.9, adult Obesity (BMI 30-39.9) Cigarette nicotine dependence without complication Gastroesophageal reflux disease, unspecified whether esophagitis present Hypomagnesemia Disorders of magnesium metabolism Pre-operative clearance- Primary Unspecified pre-operative examination Hypomagnesemia Disorders of magnesium metabolism Restless legs syndrome Restless legs syndrome (RLS) COPD with acute exacerbation ([facility]) Chronic bronchitis, unspecified chronic bronchitis type ([facility]) Essential hypertension, benign ([facility]/HCC) Essential hypertension, benign Gastroesophageal reflux disease, unspecified [...] of magnesium metabolism documented in this encounter [facility] HealthcareEvaluation note* Diagnosis Essential hypertension, benign (CMS/HCC)- [...] (CMS/HCC) Essential hypertension, benign Essential (primary) hypertension ([facility]/HCC)- Primary Unspecified essential hypertension Morbid (severe) obesity [...] (CMS/HCC) Essential hypertension, benign Essential (primary) hypertension ([facility]/HCC)- Primary Unspecified essential hypertension Morbid (severe) obesity [...] of magnesium metabolism documented in this encounter [facility] HealthcareEvaluation noteNo assessment information availablePromedica [facility] Work Phone: Evaluation note* Diagnosis Essential [...] bronchitis type (CMS/HCC) documented in this encounter [facility] HealthcareEvaluation note* Diagnosis Essential hypertension, benign (CMS/HCC)- [...] HealthcareHistory and physical note Author James Elaine [facility] July 09, 2024 1:12pm Note Date/Time July 09, 2024 1 :12pm [facility] [address] [place], [place] [id number] Gastroenterology H&P Signed Patient: Abram Guillaume MR#: [id number] 4 : 1965 Acct:[id number] Age/Sex: 58 / M Adm Date: 4 Loc: Room: Type: [facility] Attending Dr: James Elaine MD Copies to: [...] signed by James Elaine MD> 07/09/24 1312 [facility] Work Phone: Hospital Discharge instructions Additional [...] -Continue omeprazole 40 mg daily -Office number [phone]. [facility] Work Phone: Summary Purpose Family History [...] section and content) DATE CREATED AUTHOR 05/18/2022 [facility] DATE CREATED AUTHOR AUTHOR'S ORGANIZ ATION 07/22/2022 [facility] DATE CREATED AUTHOR AUTHOR'S ORGANIZ ATION 05/28/2024 [facility] DATE CREATED AUTHOR AUTHOR'S ORGANIZ ATION 10/10/2024 [facility] DATE CREATED AUTHOR AUTHOR'S ORGANIZ ATION 10/16/2024 [facility] Care Teams (unrecognized sec [...] June 23, 2024 End: June 23, 2024 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 Relationship Specialty Start Date End Date Anastacio Hinojosa MD [address] [place] [phone] PCP - General Family Medicine 11/26/23 Pepper Sexton NP [address] [place] [address] [facility] 04/[facility] Pepper Sexton NP [address] [place] [address] Nurse Practitioner Family Medicine 11/26/23 Team Status: Inactive Member Role Status Dates Pepper Sexton Primary Care Provider Active Sta rt: June 24, 2024 End: June 24, 2024 Dav Swanson APRN Attending Provider Active Start: June 24, 2024 End: June 24, 2024 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 Relationship Specialty Start Date End Date Anastacio Hinojosa MD [address] [place] [address] PCP - General Family Medicine 11/26/23 Pepper Sexton NP [address] [place] [address] PCP - [employer] 04/23/24 Pepper Sexton NP [address] [place] [address] Nurse Practitioner Family Medicine 11/26/23 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 Relationship Specialty Start Date End Date Anastacio Hinojosa MD [address] [place] [address] PCP - General Family Medicine 11/26/23 Pepper Sexton NP [address] [place] [address] PCP - [employer] 04/23/24 Pepper Sexton NP [address] [place] [address] Nurse Practitioner Family Medicine 11/26/23 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 Relationship Specialty Start Date End Date Anastacio Hinojosa MD [address] [place] [address] PCP - General Family Medicine 11/26/23 Pepper Sexton NP [address] [place] [address] PCP - [employer] 04/23/24 Pepper Sexton NP [address] [place] [address] Nurse Practitioner Family Medicine 11/26/23 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 Relationship Specialty Start Date End Date Anastacio Hinojosa MD [address] [place] [phone] PCP - General Family Medicine 11/26/23 Pepper Sexton NP [address] [place] [address] PCP - [employer] 04/23/24 Pepper Sexton NP [address] [place] [address] Nurse Practitioner Family Medicine 11/26/23 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 Relationship Specialty Start Date End Date Anastacio Hinojosa MD [address] [place] [phone] PCP - General Family Medicine 11/26/23 Pepper Sexton NP [address] [place] [address] PCP - [employer] 04/23/24 Pepper Sexton NP [address] [place] [address] Nurse Practitioner Family Medicine 11/26/23 Team Status: [...] Other Provider Active Start: July 09, 2024 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 Relationship Specialty Start Date End Date Anastacio Hinojosa MD [address] [place] [address] PCP - General Family Medicine 11/26/23 Pepper Sexton NP [address] [place] [address] PCP - [employer] 04/23/24 Pepper Sexton NP [address] [place] [address] Nurse Practitioner Family Medicine 11/26/23 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 Relationship Specialty Start Date End Date Anastacio Hinojosa MD [address] [place] [phone] PCP - General Family Medicine 11/26/23 Pepper Sexton NP [address] [place] [phone] PCP - [employer] 04/23/24 Pepper Sexton NP [address] [place] [address] Nurse Practitioner Family Medicine 11/26/23 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 Relationship Specialty Start Date End Date Anastacio Hinojosa MD [address] [place] [phone] PCP - General Family Medicine 11/26/23 Pepper Sexton NP [address] [place] [address] PCP - [employer] 04/23/24 Pepper Sexton NP [address] [place] [address] Nurse Practitioner Family Medicine 11/26/23 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 Relationship Specialty Start Date End Date Anastacio Hinojosa MD [address] [place] [address] PCP - General Family Medicine 11/26/23 Pepper Sexton NP [address] [place] [address] Nurse Practitioner Family Medicine 11/26/23 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 Relationship Specialty Start Date End Date Anastacio Hinojosa MD [address] [place] [address] PCP - General Family Medicine 11/26/23 Pepper Sexton NP [address] [place] [address] PCP - [employer] 04/23/24 Pepper Sexton NP [address] [place] [address] Nurse Practitioner Family Medicine 11/26/23 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 Relationship Specialty Start Date End Date Anastacio Hinojosa MD [address] [place] [address] PCP - General Family Medicine 11/26/23 Pepper Sexton NP [address] [place] [address] PCP - [employer] 04/23/24 Pepper Sexton NP [address] [place] [address] Nurse Practitioner Family Medicine 11/26/23 Team Status: [...] Other Provider Active Start: October 06, 2024 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 Relationship Specialty Start Date End Date Anastacio Hinojosa MD [address] [place] [address] PCP - General Family Medicine 11/26/23 Pepper Sexton NP [address] [place] [address] PCP - [employer] 04/23/24 Pepper Sexton NP [address] [place] [address] Nurse Practitioner Family Medicine 11/26/23 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 Relationship Specialty Start Date End Date Anastacio Hinojosa MD [address] [place] [address] PCP - General Family Medicine 11/26/23 Pepper Sexton NP [address] [place] [address] PCP - [employer] 04/23/24 Pepper Sexton NP [address] [place] [address] Nurse Practitioner Family Medicine 11/26/23 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 Relationship Specialty Start Date End Date Anastacio Hinojosa MD [address] [place] [address] PCP - General Family Medicine 11/26/23 Pepper Sexton NP [address] [place] [address] PCP - [employer] 04/23/24 Pepper Sexton NP [address] [place] [address] Nurse Practitioner Family Medicine 11/26/23 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 Relationship Specialty Start Date End Date Anastacio Hinojosa MD [address] [place] [address] PCP - General Family Medicine 11/26/23 Pepper Sexton NP [address] [place] [address] PCP - [employer] 04/23/24 Pepper Sexton NP [address] [place] [address] Nurse Practitioner Family Medicine 11/26/23 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 Relationship Specialty Start Date End Date Anastacio Hinojosa MD [address] [place] [address] PCP - General Family Medicine 11/26/23 Pepper Sexton NP [address] [place] [address] PCP - [facility] 04/23/24 Pepper Sexton NP [address] [place] [address] Nurse Practitioner Family Medicine 11/26/23 Goals (unrecognized [...] BE BASED ON THE PRIMARY CLINICAL RECORDS. [facility] [facility] provides no warranty or guarantee of the accuracy or completeness of information in this document.
--- NOTE | 2024-11-05 16:00 | ED.RECABL1 ---
HPI - Recheck/Abnormal Lab/Rx General Chief Complaint: Recheck/Abnormal Lab/Rx Stated Complaint: ABNORMAL LABS Time Seen by Provider: 11/05/24 15:37 Mode of arrival: walk-in History of Present Illness HPI narrative: 58-year-old male presents to the emergency department for low magnesium. He had outpatient test that was 0.7 and he was sent here by his PCP for IV magnesium. He does not seem to have any symptoms. He is on a magnesium supplement and he sees a kidney doctor. Related Data Allergies Allergy/AdvReac Type Severity Reaction Status Date / Time No Known Drug Allergies Allergy Verified 02/27/24 09:26 Review of Systems ROS Narrative A ten point review of systems is negative except as noted above. PFSH PFSH Social History Little interest or pleasure in doing things: not at all Feeling down, depressed, or hopeless: not at all Exam Narrative Exam Narrative: Nurses note and vital signs reviewed and patient is not hypoxic. General: The patient appears well and in no apparent distress. Patient is resting comfortably on cart. Skin: Warm, dry, no pallor noted. There is no rash noted. Head: Normocephalic, atraumatic Eye: Normal conjunctiva, no drainage Ears, Nose, Mouth, and Throat: oral mucosa is moist. Nares patent. Cardiovascular: Regular Rate and Rhythm Respiratory: Patient is in no distress, no accessory muscle use, lungs are clear to auscultation, no wheezing, rales or rhonchi Back: non-tender GI: Soft and nontender Musculoskeletal: The patient has no evidence of calf tenderness, no pitting edema, symmetrical pulses noted bilaterally Neurological: A&O, normal speech Psychiatric: Cooperative Constitutional Vital Signs, click to edit/add: Last Vital Signs Temp 98.2 F 11/05/24 15:39 Pulse 98 H 11/05/24 16:53 Resp 18 11/05/24 16:53 BP 172/99 H 11/05/24 16:53 Pulse Ox 94 L 11/05/24 16:53 O2 Del Method Room Air 11/05/24 15:39 Course Vital Signs Vital signs: Vital Signs Temperature 98.2 F 11/05/24 15:39 Pulse Rate 102 H 11/05/24 15:39 Respiratory Rate 18 11/05/24 15:39 Blood Pressure 152/95 H 11/05/24 15:39 Pulse Oximetry 94 L 11/05/24 15:39 Oxygen Delivery Method Room Air 11/05/24 15:39 Temperature 98.2 F 11/05/24 15:39 Pulse Rate 98 H 11/05/24 16:53 Respiratory Rate 18 11/05/24 16:53 Blood Pressure 172/99 H 11/05/24 16:53 Pulse Oximetry 94 L 11/05/24 16:53 Oxygen Delivery Method Room Air 11/05/24 15:39 MDM - Recheck/Abnormal Lab/Rx MDM Narrative Medical decision making narrative: Magnesium level was 0.7. He was given 4 g IV and is discharged home. Follow-up with his PCP. Differential Diagnosis Differential diagnosis: Likely other (Hypomagnesemia) Lab Data Labs: Lab Results 11/05/24 Range/Units 15:54 WBC 9.1 (4.0-11.0) 10^3/uL RBC 4.33 L (4.70-6.10) 10^6/uL Hgb 13.6 L (14.0-18.0) g/dL Hct 41.9 L (42.0-54.0) % MCV 96.8 H (80.0-94.0) fL MCH 31.4 (25.9-34.0) pg MCHC 32.5 (29.9-35.2) g/dL RDW 13.7 (11.0-15.0) % Plt Count 333 (150-450) 10^3/uL MPV 10.0 (9.5-13.5) fL Neut % (Auto) 66.4 (43.0-75.0) % Lymph % (Auto) 20.7 (20.5-60.0) % [place] % (Auto) 6.8 (1.7-12.0) % Eos % (Auto) 4.7 (0.9-7.0) % Baso % (Auto) 1.1 (0.2-2.0) % Neut # (Auto) 6.1 (1.4-6.5) 10^3/uL Lymph # (Auto) 1.9 (1.2-3.8) 10^3/uL [place] # (Auto) 0.6 (0.3-0.8) 10^3/uL Eos # (Auto) 0.4 (0.0-0.7) 10^3/uL Baso # (Auto) 0.1 (0.0-0.1) 10^3/uL Abs Immat Gran (auto) 0.03 (0.00-0.03) 10^3/uL Imm/Tot Granulo (auto) 0.3 (0.0-0.5) % Sodium 144 (136-145) mmol/L Potassium 3.7 (3.5-5.1) mmol/L Chloride 107 (98-107) mmol/L Carbon Dioxide 26.0 (21.0-32.0) mmol/L Anion Gap 14.7 BUN 15.0 (7.0-18.0) mg/dL Creatinine 1.31 H (0.70-1.30) mg/dL Est GFR ( Amer) >60 (>=60 mL/min/1.73m^2) Est GFR (Non-Af Amer) 57 L (>=60 mL/min/1.73m^2) BUN/Creatinine Ratio 11.5 Glucose 122 H (74-106) mg/dL Calcium 7.7 L (8.5-10.1) mg/dL Magnesium 0.7 L* (1.8-2.4) mg/dL Discharge Plan Discharge Chief Complaint: Recheck/Abnormal Lab/Rx Clinical Impression: Hypomagnesemia Patient Disposition: Home, Self-Care Time of Disposition Decision: 17:17 Mode of Transportation: Private Vehicle Print Language: Moroccan Instructions: Hypomagnesemia (ED) Additional Instructions: Continue your oral magnesium supplementation and follow-up with your PCP. Referrals: Pepper Sexton NP [Primary Care Provider] - 1 week
[2024-11-05 16:03] LABS: Basophils Absolute Auto 0.1 10^3/uL (0.0-0.1); Basophils Percent Auto 1.1 % (0.2-2.0); Eosinophils Absolute Auto 0.4 10^3/uL (0.0-0.7); Eosinophils Percent Auto 4.7 % (0.9-7.0); Hematocrit 41.9 % (42.0-54.0); Hemoglobin 13.6 g/dL (14.0-18.0); Immature Granulocytes Abs Auto 0.03 10^3/uL (0.00-0.03); Immature Granulocytes Pct Auto 0.3 % (0.0-0.5); Lymphocytes Absolute Auto 1.9 10^3/uL (1.2-3.8); Lymphocytes Percent Auto 20.7 % (20.5-60.0); Mean Corpuscular HGB Conc 32.5 g/dL (29.9-35.2); Mean Corpuscular Hemoglobin 31.4 pg (25.9-34.0); Mean Corpuscular Volume 96.8 fL (80.0-94.0); Monocytes Absolute Auto 0.6 10^3/uL (0.3-0.8); Monocytes Percent Auto 6.8 % (1.7-12.0); Neutrophils Absolute Auto 6.1 10^3/uL (1.4-6.5); Neutrophils Percent Auto 66.4 % (43.0-75.0); Platelet Count 333 10^3/uL (150-450); Red Blood Count 4.33 10^6/uL (4.70-6.10); Red Cell Distribution Width 13.7 % (11.0-15.0); White Blood Count 9.1 10^3/uL (4.0-11.0)
[2024-11-05] MEDS: MAGNESIUM SULFATE IN WATER 4 GM/100 ML PIGGYBACK IV (16:10)
[2024-11-05 16:12] LABS: Anion Gap 14.7; BUN Creatinine Ratio 11.5; Calcium 7.7 mg/dL (8.5-10.1); Chloride 107 mmol/L (98-107); Estimated GFR (African America >60 (>=60 mL/min/1.73m^2); Estimated GFR (Non-African Ame 57 (>=60 mL/min/1.73m^2); Glucose 122 mg/dL (74-106); Potassium 3.7 mmol/L (3.5-5.1); Sodium 144 mmol/L (136-145)
[2024-11-05 16:16] LABS: Magnesium 0.7 mg/dL (1.8-2.4)
[2024-11-05 16:53] VITALS: BP 172/99; PULSE 98; O2SAT 94
[2024-11-05 17:32] VITALS: BP 155/90
== END 2024-11-05 18:07 | disposition home or self-care (01) ==
PROVIDERS: Emergency Provider Emergency Medicine; PCP Nurse Practitioner
DX: E83.42 Hypomagnesemia (principal)
CPT/HCPCS: 36415; 80048; 83735; 85025; 96365; 96366; 99285; J3475

== ENCOUNTER 2024-11-24 12:31 | Outpatient (OUT) | payer BC, SELFPAY ==
--- OUTSIDE RECORDS SUMMARY | 2024-11-24 12:50 | XMS_ITS | CCD ---
Author Organization [facility] Care Team Providers Care School Aide Name Role Phone AICHHOLZ, RADIOLOGY TECH PEPPER Primary Care Unavailable AICHHOLZ, RADIOLOGY TECH PEPPER Consulting Unavailable AICHHOLZ, RADIOLOGY TECH PEPPER Attending Unavailable AICHHOLZ, RADIOLOGY TECH PEPPER Admitting Unavailable AICHHOLZ, RADIOLOGY TECH PEPPER Consulting Unavailable AICHHOLZ, RADIOLOGY TECH PEPPER Attending Unavailable AICHHOLZ, RADIOLOGY TECH PEPPER Admitting Unavailable AICHHOLZ, RADIOLOGY TECH PEPPER Primary Care Unavailable AICHHOLZ, RADIOLOGY TECH PEPPER Primary Care Unavailable DR CRIS GAN V Consulting Unavailable AICHHOLZ, RADIOLOGY TECH PEPPER Attending Unavailable AICHHOLZ, RADIOLOGY TECH PEPPER Admitting Unavailable AICHHOLZ, RADIOLOGY TECH PEPPER Consulting Unavailable AICHHOLZ, RADIOLOGY TECH PEPPER Primary Care Unavailable AICHHOLZ, RADIOLOGY TECH PEPPER Consulting Unavailable AICHHOLZ, RADIOLOGY TECH PEPPER Attending Unavailable AICHHOLZ, RADIOLOGY TECH PEPPER Admitting Unavailable AICHHOLZ, RADIOLOGY TECH PEPPER Primary Care Unavailable AICHHOLZ, RADIOLOGY TECH PEPPER Consulting Unavailable AICHHOLZ, RADIOLOGY TECH PEPPER Attending Unavailable AICHHOLZ, RADIOLOGY TECH PEPPER Admitting Unavailable AICHHOLZ, PEPPER J Referring [...] Unavailable Ashish CARTAGENA, Anastacio Primary Care Provider Aichholz SCRAP YARD WORKER, Pepper Unavailable Aichholz SCRAP YARD WORKER, Pepper Unavailable Aichholz, Pepper J Primary Care Provider MD James Elaine Attending Provider Pepper Sexton Primary Care Provider James Elaine MD Attending Provider [phone] PEPPER SEXTON Attending Unavailable AGUSTIN STOKES Attending Unavailable KARUNA CARRANZA Referring Unavailable LOWMichelle, KARUNA Attending Unavailable AICHHOLEulalio, PEPPER Attending Unavailable APLING, BLANK Langston Attending Unavailable LOWMichelle, KARUNA Referring Unavailable FABIAN, RUPERT Lyn Attending Unavailable AICHHOLEulalio, PEPPER Attending Unavailable AICHHOLEulalio, PEPPER Attending Unavailable FABIAN, RUPERT Lyn Attending Unavailable JAVIERHJEMAL, PEPPER Attending Unavailable JAVIERHHOLEulalio, PEPPER Referring Unavailable APLSARAH, BLANK Langston Attending Unavailable FABIAN, RUPERT Lyn Attending Unavailable AICHHOLEulalio, PEPPER Attending Unavailable CARLIE, PEPPER Attending Unavailable Pepper Sexton Primary Care Unavailable Asaad, Imad Attending Unavailable Asaad, Imad Admitting Unavailable Asaad, Imad Admitting Unavailable Pepper Sexton Primary Care Unavailable Asaad, Imad Attending Unavailable JavierhPepper Braswell Primary Care Provider Medications Current Medications Medication Drug Class(es) Dates Sig (Normalized) Sig (Original) acetaminophen 325 mg / HYDROcodone bitartrate 5 mg oral tablet (1 source) Opioid Agonist Start: 05-26-2024 End: 05-29-2024 take 1 tablet by mouth every six hours for pain HYDROcodone-aceta minophen ([place]) 5-325 MG tablet Indications: Post-operative pain Take 1 tablet by mouth every 6 (six) hours if needed for severe pain for up to 3 days 12 tablet 05/26/2024 05/29/2024 Active [id number] 200 actuat albuterol 0.09 mg/actuat metered dose [...] of breath 18 g 1 03/06/2024 Active Start: 08-02-2022 take 2 puff(s) by in halation every six hours as needed for wheezing albuterol (PROVENTIL HFA;VENTOLIN HFA) 90 mcg/actuation inhaler Indications: Mild persistent asthma without complication Inhale 2 puffs every 6 (six) hours as needed for wheezing. 18 g 11 08/02/2022 Active amLODIPine 10 mg oral tablet (20 [...] 19, 2024 8:38am June 23, 2024 9:39am Start: 08-02-2022 take 2 puff(s) by in halation in the morning budesonide-formoteroL (SYMBICORT) 80-4.5 mcg/actuation inhaler Indications: Mild persistent asthma without complication Inhale 2 puffs in the morning and 2 puffs before bedtime. 10.2 g 12 08/02/2022 Active cloNIDine hydrochloride 0.1 mg oral tablet (5 [...] Active Start: 03-19-2024 take 1 capsule by mo ut once daily at bedtime Doxepin 100 mg capsule Active 100 MG PO Daily at bedtime March 18, 2024 11:00pm Start: 03-11-2024 End: 06-09-2024 take 10 mg by mouth at bedtime doxepin (SINEquan) 10 M G/ML solution Indications: Fibromyalgia Take 10 mL (100 mg) by mouth at bedtime 900 mL 1 03/11/2024 Active take 1 capsule by mo uth once daily doxepin (SINEquan) 10 mg capsule Take 1 capsule (10 mg total) by mouth nightly. Active gabapentin 600 mg oral tablet (20 sources) Anti-epileptic Agent Start: 03-19-2024 End: 02-02-2025 take 1 tablet by mouth in the morning gabapentin (Neurontin) 600 MG tablet Indications: Restless legs syndrome Take 1 tablet (600 mg) by mouth in the morning and 1 tablet (600 mg) before bedtime. 180 tablet 1 11/04/2024 02/02/2025 Active take 1 capsule by mo uth in the morning, then take 1 capsule by mouth at bedtime gabapentin (NEURONTIN) 300 mg capsule Take 1 capsule (300 mg total) by mouth in the morning and 1 capsule (300 mg total) before bedtime. Active ibuprofen 200 mg oral tablet (16 sources) Nonsteroidal Anti-inflammatory Drug End: 07-06-2024 take [...] before meals. 90 tablet 09/06/2024 10/08/2024 Discontinued take 4 tablets by mo [facility] in the morning levothyroxine (SYNTHROID, LEVOTHROID) 25 MCG tablet Take 4 tablets (100 mcg total) by mouth in the morning. Active magnesium oxide 500 mg oral tablet (20 [...] DAY 90 tablet 4 06/18/2024 Active Start: 03-29-2022 End: 09-22-2024 take 1 tablet by mouth [...] mouth Daily 90 tablet 09/06/2024 12/05/2024 Active take [facility] tablet [facility] (BYSTOLIC) 5 mg tablet Take 1 tablet (5 mg total) by mouth in the morning. Active omeprazole 40 mg delayed release oral [...] 24, 2024 7:41am July 09, 2024 12:23pm take 1 capsule by mo [facility] in the morning omeprazole (PriLOSEC) 40 mg capsule Take 1 capsule (40 mg total) by mouth in the morning. Active pravastatin sodium 20 mg oral tablet (20 [...] (20 sources) Angiotensin 2 Receptor Linnea Start: 09-29-19 End: 01-06-20 take 1 tablet by mouth [...] 23, 2024 4:47pm June 23, 2024 9:40am take 2 tablets by mo uth in the morning famotidine (PEPCID) 20 mg tablet Take 2 tablets (40 mg total) by mouth in the morning. Active SPIRONOLACTONE, BULK, MISC (1 source) End: 04-27-2024 SPIRONOLACTONE, BULK, MISC b y miscellaneous route. 04/27/2024 Discontinued (Therapy completed) Problems Active Problems Problem Classification Problem Date Documented Date Episodic/Chronic Allergic reactions (20 sources) Atopic dermatitis; Translations: [Atopic dermatitis, unspecified] Onset: 11-26-2023 11-26-2023 Chronic Asthma (1 source) Uncomplicated mild persistent asthma; Translations: [Mild persistent asthma, uncomplicated] Onset: 08-02-2022 08-02-2022 Chronic Chronic obstructive pulmonary disease and bronchiectasis [...] Chronic Other nutritional; endocrine; and metabolic disorders (9 sources) Obesity caused by energy imbalance; Translations: [...] Onset: 12-25-2021 Episodic Gastroduodenal ulcer (except hemorrhage) (13 sources) Acute gastric ulcer without hemorrhage AND [...] in adult] Onset: 11-26-2023 11-26-2023 Episodic Other lower respiratory disease (1 source) Radiologic infiltrate of lung ; Translations: [Other nonspecific abnormal finding of lung field] Onset: 08-02-2022 08-02-2022 Episodic Other nervous system disorders (20 sources) [...] unspecified, uncomplicated] Onset: 11-26-2023 11-26-2023 Episodic Syncope (6 sources) Syncope and collapse; Translations: [Syncope and collapse] Onset: 12-15-2021 Episodic Results Test Name Value Interpretation Reference Range Facility ALL MAGNESIUMon 11-05-2024 Interpretation and review of laboratory results Abnormal [facility] Magnesium [Mass/Vol] 0.7 mg/dL Critically low 1.8 - 2.4 mg/dL [facility] Comment on above: RESULTS CALLED TO EZEQUIEL BOOTH MA AT OFFICE BY Violeta Gold at [address] ALL MAGNESIUMon 10-07-2024 Interpretation and review of laboratory results Abnormal [facility] Magnesium [Mass/Vol] 0.8 mg/dL Critically low 1.8 - 2.4 mg/dL [facility] Comment on above: RESULTS [facility] THYROID STIM HORMONEon 0 10-07-2024 TSH Qn 2.054 m[IU]/L [facility] HbA1c (Bld) [Mass fraction]o n 10-07-2024 Interpretation and review of laboratory results Normal [facility] - Hematology and Cell countson 10-07-2024 HbA1c (Bld) [Mass fraction] 5.60 % [facility] No [facility] Screen Ql (U)Ord ered By: James Elaine on 10-06-2024 Amphetamines Ql (U) Amphetamines screen Negativ e [facility] Barbiturates [Presence] in U rine by Screen methodOrdered By: Imrosalie Holbrook on 10-06-2024 Barbiturates Screen Ql (U) Barbiturates [Presence] in Urine by Screen method Negative [facility] Benzodiazepines Screen Ql (U )Ordered By: Imad Asaad on 10-06-2024 Benzodiazepines Ql (U) Benzodiazepines [Presence] in Urine by Screen method Negative [facility] Benzoylecgonine [Presence] i n Urine by Screen methodOrdered By: Imad Asaad on 10-06-2024 Benzoylecgonine Screen Ql (U) Benzoylecgonine [Presence] in Urine by Screen method Negative [facility] Cannabinoids [Presence] in U rine by Screen methodOrdered By: Imad Asarosalie on 10-06-2024 Cannabinoids Screen Ql (U) Cannabinoids [Presence] in Urine by Screen method High Negative [facility] Comment on above: These are unconfirme d results and should not be used for legal purposes. Drug Cut-Off Concentration: AMPH 1000 ng/mL MAX 200 ng/mL JUHI 200 ng/mL COCM 300 ng/mL OP 300 ng/mL PCP 25 ng/mL THC 20 ng/mL Drug Screen,Urineon 10-06-19 25 Amphetamine Screen,Urine Negative Normal Negative [facility] Comment on above: Performed By: #### U RDS #### [address] Barbiturate Screen,Urine Negative Normal Negative [facility] Comment on above: Performed By: #### U RDS #### [facility] [address] [place] [address] [place] Benzodiazepines Screen,Urine Negative Normal Negative [facility] Comment on above: Performed By: #### U RDS #### [facility] [address] [place] [address] [place] Cannabinoid Screen,Urine Positive High Negative [facility] Comment on above: Result Comment: Thes e are unconfirmed results and should not be used for legal purposes. Drug Cut-Off Concentration: AMPH 1000 ng/mL MAX 200 ng/mL JUHI 200 ng/mL COCM 300 ng/mL OP 300 ng/mL PCP 25 ng/mL THC 20 ng/mL PERFORMED BY: [place] [address] PATHOLOGIST [employer] JAN GRIMES M.D. Performed By: #### U RDS #### [address] Cocaine Screen,Urine Negative Normal Negative [facility] Comment on above: Performed By: #### U RDS #### [address] Opiate Screen,Urine Negative Normal Negative [facility] Comment on above: Performed By: #### U RDS #### [address] Phencyclidine Screen,Urine Negative Normal Negative [facility] Comment on above: Performed By: #### U RDS #### [address] 10-06-2024 L Specimen: [id number] Received: 10/06/24 Status: SAHIL Ruiz Num: [id number] Spec Type: Surgical Subm Dr: James Elaine MD Tissues: A Esophagus Biopsy (ESOPHAGUS BX R/O BARRETTS) Procedures: HE/2, Gross/Micro L4 Age/ Patient Sex Location Account Attending Physician Abram Guillaume 58/M [id number] James Elaine MD SPEC NUM: [id number] RECD: 10/06/24 STATUS: SAHIL RUIZ NUM: [id number] PHILLIP: 10/06/[address] [facility] DR: James Elaine MD ENTERED: 10/06/[address] [facility] [address]: ANGELICA TYPE: Surgical DEPT: S ENTERED BY: [id number] RECV BY: [id number] ORDERED: HE/2, Gross/Micro L4 ORDERED: HE/2, Gross/Micro [...] submitted in a single cassette. (1, ns, [id number] A) Microscopic Description Microscopic examination is performed. Specimen: [id number] Received: 10/06/24 Status: SARAAdalberto Ruiz Num: [id number] Spec Type: Surgical Subm Dr: James Elaine MD Tissues: A Esophagus Biopsy (ESOPHAGUS BX R/O BARRETTS) Procedures: Twila MARIEE/Matt L4 Patient: Abram Guillaume [id number] (Continued) Specimen: [id number] Received: 10/06/24 (Continued) Signed (signature on file) Sandro Baird MD 10/07/24 1009 Specimen: [id number] Received: 10/06/24 Status: SAHIL Ruiz Num: [id number] Spec Type: Surgical Subm Dr: James Elaine MD Tissues: A Esophagus Biopsy (ESOPHAGUS BX R/O BARRETTS) Procedures: Twila MARIEE/Matt L4 Patient: Abram Guillaume [id number] (Continued) Specimen: [id number] Received: 10/06/24 (Continued) CPT Codes 43826 Specimen: [id number] Received: 10/06/24 Status: SAHIL Ruiz Num: [id number] Spec Type: Surgical Subm Dr: James Elaine MD Tissues: A Esophagus Biopsy (ESOPHAGUS BX R/O BARRETTS) Procedures: HE/2, Gross/Micro L4 Patient: Abram Guillaume [id number] (Continued) Signed (signature on file) Sandro Baird MD 10/07/24 1009 Normal [facility] Opiates [Presence] in Urine by Screen methodOrdered By: Imrosalie Elaine on 10-06-2024 Opiates Screen Ql (U) Opiates [Presence] in Urine by Screen method Negative [facility] Phencyclidine Screen Ql (U)O rdered By: Imad Asaad on 10-06-2024 Phencyclidine Ql (U) Phencyclidine [Presence] in Urine by Screen method Negative [facility] ALL BASIC METABOLIC PANELon 09-28-2024 Anion gap [Moles/Vol] 14.1 mmol/L [facility] Calcium [Mass/Vol] 8.3 mg/dL Low 8.5 - 10. 1 mg/dL [facility] Chloride [Moles/Vol] 104 mmol/L 98 - 10 7 mmol/L [facility] CO2 [Moles/Vol] 28.4 mmol/L 21.0 - 32.0 mmol/L [facility] Creatinine [Mass/Vol] 1.61 mg/dL High 0.70 - 1.30 mg/dL [facility] GFR/1.73 sq M.predicted CKD-EPI (S/P/Bld) [Vol rate/Area] 54 Low >=60 mL/min/1.73m 2 [facility] Glucose [Mass/Vol] 137 mg/dL High 74 - 106 mg/dL [facility] Potassium [Moles/Vol] 3.5 mmol/L 3.5 - 5.1 mmol/L [facility] Sodium [Moles/Vol] 143 mmol/L 136 - 145 mmol/L [facility] TBH EGFR-NON AF GIBRALTARIAN 45 Low >=60 mL/min/1.73m 2 [facility] Urea nitrogen [Mass/Vol] 17 mg/dL 7.0 - 18.0 mg/dL [facility] Urea nitrogen/Creatinine [Mass ratio] 10.6 mg/mg [facility] ALL MAGNESIUMon 09-28-2024 Magnesium [Mass/Vol] 0.8 mg/dL Critically low 1.8 - 2.4 mg/dL [facility] Comment on above: RESULTS CALLED TO ELIZABETH SEXTON NP No Panel Informationon 09-28 Interpretation and review of laboratory results Abnormal [facility] Amphetamine Screen Ql (U)Ord ered By: rosalie Elaine on 07-09-2024 Amphetamines Ql (U) Amphetamines screen Negativ e [facility] Amphetamines Ql (U) Negative Negative [facility] Barbiturates [Presence] in U rine by Screen methodOrdered By: rosalie Elaine on 07-09-2024 Barbiturates Screen Ql (U) Negative Negative [facility] Barbiturates Screen Ql (U) Barbiturates [Presence] in Urine by Screen method Negative [facility] Benzodiazepines Screen Ql (U )Ordered By: rosalie [facility] on 07-09-2024 Benzodiazepines Ql (U) Negative Negative [facility] Benzodiazepines Ql (U) Benzodiazepines [Presence] in Urine by Screen method Negative [facility] Benzoylecgonine [Presence] i n Urine by Screen methodOrdered By: rosalie Elaine on 07-09-2024 Benzoylecgonine Screen Ql (U) Negative Negative [facility] Benzoylecgonine Screen Ql (U) Benzoylecgonine [Presence] in Urine by Screen method Negative [facility] Cannabinoids [Presence] in U rine by Screen methodOrdered By: [facility] on 07-09-2024 Cannabinoids Screen Ql (U) Negative Negative [facility] Comment on above: These are unconfirme d results and should not be used for legal purposes. Drug Cut-Off Concentration: AMPH 1000 ng/mL MAX 200 ng/mL JUHI 200 ng/mL COCM 300 ng/mL OP 300 ng/mL PCP 25 ng/mL THC 20 ng/mL Cannabinoids Screen Ql (U) Cannabinoids [Presence] in Urine by Screen method Negative [facility] Comment on above: These are unconfirme d results and should not be used for legal purposes. Drug Cut-Off Concentration: AMPH 1000 ng/mL MAX 200 ng/mL JUHI 200 ng/mL COCM 300 ng/mL OP 300 ng/mL PCP 25 ng/mL THC 20 ng/mL Drug Screen,Urineon 07-09-20 Amphetamine Screen,Urine Negative Normal Negative [facility] Comment on above: Performed By: #### U RDS #### [address] Barbiturate Screen,Urine Negative Normal Negative [facility] Comment on above: Performed By: #### U RDS #### [place] [address] [place] Benzodiazepines Screen,Urine Negative Normal Negative [facility] Comment on above: Performed By: #### U RDS #### [address] Cannabinoid Screen,Urine Negative Normal Negative [facility] Comment on above: Result Comment: Thes e are unconfirmed results and should not be used for legal purposes. Drug Cut-Off Concentration: AMPH 1000 ng/mL MAX 200 ng/mL JUHI 200 ng/mL COCM 300 ng/mL OP 300 ng/mL PCP 25 ng/mL THC 20 ng/mL PERFORMED BY: [place] [address] PATHOLOGIST [employer] ZUHAIR KAUR M.D. Performed By: #### U RDS #### [place] [address] [place] Cocaine Screen,Urine Negative Normal Negative [facility] Comment on above: Performed By: #### U RDS #### [place] [address] [place] Opiate Screen,Urine Negative Normal Negative [facility] Comment on above: Performed By: #### U RDS #### [address] [place] [address] [place] Phencyclidine Screen,Urine Negative Normal Negative [facility] Comment on above: Performed By: #### U RDS #### [address] No Panel InformationOrdered By: James Elaine on 07-09-2024 Miscellaneous Pathology Test See comment [facility] Comment on above: See report. Scanned copy available in EMR. Opiates [Presence] in Urine by Screen methodOrdered By: James Elaine on 07-09-2024 Opiates Screen Ql (U) Negative Negative [facility] Opiates Screen Ql (U) Opiates [Presence] in Urine by Screen method Negative [facility] Pathology Request for Lab Co rpon 07-09-2024 Pathology Request for Lab Itzel Normal [facility] Comment on above: Order Comment: PATHO LOGY GI SPECIMEN Result Comment: See report. Scanned copy available in EMR. PERFORMED BY: [place] [address] PATHOLOGIST [employer] ZUHAIR KAUR M.D. Performed By: #### P ATH TO [facility] #### [address] Phencyclidine Screen Ql (U)O rdered By: James Elaine on 07-09-2024 Phencyclidine Ql (U) Negative Negative [facility] Phencyclidine Ql (U) Phencyclidine [Presence] in Urine by Screen method Negative [facility] ALL MAGNESIUMon 06-23-2024 Magnesium [Mass/Vol] 1.5 mg/dL Low 1.8 - 2 .4 mg/dL [facility] ALL RENAL FUNCTION PANELon 1 Albumin [Mass/Vol] 3.3 g/dL Low 3.4 - 5.0 g/dL [facility] Anion gap [Moles/Vol] 12.6 mmol/L [facility] Calcium [Mass/Vol] 8.7 mg/dL 8.5 - 10. 1 mg/dL [facility] Chloride [Moles/Vol] 104 mmol/L 98 - 10 7 mmol/L [facility] CO2 [Moles/Vol] 26.1 mmol/L 21.0 - 32.0 mmol/L [facility] Creatinine [Mass/Vol] 1.72 mg/dL High 0.70 - 1.30 mg/dL [facility] GFR/1.73 sq M.predicted CKD-EPI (S/P/Bld) [Vol rate/Area] 50 Low 60 - PINF [facility] Glucose [Mass/Vol] 114 mg/dL High 74 - 106 mg/dL [facility] Phosphate [Mass/Vol] 3.2 mg/dL 2.6 - 4 .7 mg/dL [facility] Potassium [Moles/Vol] 4.7 mmol/L 3.5 - 5.1 mmol/L [facility] Sodium [Moles/Vol] 138 mmol/L 136 - 145 mmol/L [facility] TB EGFR-NON AF GIBRALTARIAN 41 Low 60 - PINF [facility] Urea nitrogen [Mass/Vol] 30.0 mg/dL High 7.0 - 18.0 mg/dL [facility] Urea nitrogen/Creatinine [Mass ratio] 17.4 mg/mg [facility] ALL URIC ACIDon 06-23-2024 Urate [Mass/Vol] 8.0 mg/dL High 3.5 - 7.2 mg/dL [facility] Estimated glomerular filtrat ion rate (GFR) non- Americanon 06-23-2024 GFR/1.73 sq M.predicted among non-blacks MDRD (S/P/Bld) [Vol rate/Area] 41 mL/min/{1.73_m2} Low >=60 [facility] Laboratory - Chemistry and C hemistry - challengeon 06-23-2024 Albumin [Mass/Vol] 3.3 g/dL Low 3.4-5.0 [facility] Calcium [Mass/Vol] 8.7 mg/dL 8.5-10.1 [facility] Chloride [Moles/Vol] 104 mmol/L 98-107 [facility] CO2 [Moles/Vol] 26.1 mmol/L 21.0-32.0 [facility] Creatinine [Mass/Vol] 1.72 mg/dL High 0.70-1.30 [facility] GFR/1.73 sq M.predicted MDRD (S/P/Bld) [Vol rate/Area] 50 mL/min/{1.73_m2} Low >=60 [facility] Glucose [Mass/Vol] 114 mg/dL High 74-106 [facility] Magnesium [Mass/Vol] 1.5 mg/dL Low 1.8-2.4 [facility] Potassium [Moles/Vol] 4.7 mmol/L 3.5-5.1 [facility] Sodium [Moles/Vol] 138 mmol/L 136-145 [facility] Urate [Mass/Vol] 8.0 mg/dL High 3.5-7.2 [facility] Urea nitrogen [Mass/Vol] 30.0 mg/dL High 7.0-18.0 [facility] Urea nitrogen/Creatinine [Mass ratio] 17.4 mg/mg [facility] Laboratory - Urinalysison Protein (U) [Mass/Vol] 12.6 mg/dL High <=11.9 [facility] No Panel Informationon 06-23 Urine Random Creatinine 78.13 mg/dL 20.00-300.00 [facility] Interpretation and review of laboratory results Abnormal [facility] Phosphorus Level 3.2 mg/dL 2.6-4.7 [facility] Serum or plasma anion gap de terminationon 06-23-2024 Anion gap [Moles/Vol] 12.6 mmol/L [facility] Urine protein/creatinine rat ioon 06-23-2024 Protein/Creatinine (U) [Ratio] 0.16 [facility] BASIC METABOLIC PANLon 04-27 Anion gap [Moles/Vol] 9 mmol/L Normal 5-15 [facility] Comment on above: Performed By: #### B MP #### [facility] ([id number]) [address] [place] [address] Calcium [Mass/Vol] 9.5 mg/dL Normal 8.5-10.5 [facility] Comment on above: Performed By: #### B MP #### [facility] ([id number]) [address] [place] [address] Chloride [Moles/Vol] 105 mmol/L Normal 98-[address] [facility] Comment on above: Performed By: #### B MP #### [facility] ([id number]) [address] [place] [address] CO2 [Moles/Vol] 25 mmol/L Normal 22-32 [facility] Comment on above: Performed By: #### B MP #### [facility] ([id number]) [address] [place] [address] Creatinine [Mass/Vol] 1.60 mg/dL High 0.60-1.30 [facility] Comment on above: Result Comment: METH OD TRACEABLE TO IDMS STANDARD Performed By: #### B MP #### [facility] ([id number]) [address] [facility] [address] [place] [address] GFR/1.73 sq M.predicted among non-blacks MDRD (S/P/Bld) [Vol rate/Area] 50 mL/min/{1.73_m2} Low >59 [facility] Comment on above: Result Comment: Reported eGFR is based on the CKD-EPI 2020 equation that does not use a race coefficient. Performed By: #### B MP #### [facility] ([id number]) [address] [place] [address] Glucose [Mass/Vol] 104 mg/dL High 65-99 [facility] Comment on above: Performed By: #### B MP #### [facility] ([id number]) [address] [facility] [address] [place] [address] Potassium [Moles/Vol] 4.2 mmol/L Normal 3.5-5.0 [facility] Comment on above: Performed By: #### B MP #### [facility] ([id number]) [address] [facility] [address] [place] [address] Sodium [Moles/Vol] 139 mmol/L Normal 134-146 [facility] Comment on above: Performed By: #### B MP #### [facility] ([id number]) [address] [place] [address] Urea nitrogen [Mass/Vol] 31 mg/dL High 5-23 [facility] Comment on above: Performed By: #### B MP #### [facility] ([id number]) [address] [place] [address] Basic Metabolic Panelon 080 Anion gap [Moles/Vol] 9 mmol/L 5 - 15 mmol/L [facility] Calcium [Mass/Vol] 9.5 mg/dL 8.5 - 10. 5 mg/dL [facility] Chloride [Moles/Vol] 105 mmol/L 98 - 10 9 mmol/L [facility] CO2 [Moles/Vol] 25 mmol/L 22 - 32 mmol/L [facility] Creatinine [Mass/Vol] 1.60 mg/dL High 0.60 - 1.30 mg/dL [facility] Comment on above: METHOD TRACEABLE TO IDMS STANDARD eGFR (CKD-EPI)non-race dependent 50 Low - PINF [facility] Comment on above: Reported eGFR is based on the CKD-EPI 2020 equation that does not use a race coefficient. Glucose [Mass/Vol] 104 mg/dL High 65 - 99 mg/dL [facility] Interpretation and review of laboratory results Abnormal [facility] Potassium [Moles/Vol] 4.2 mmol/L 3.5 - 5.0 mmol/L [facility] Sodium [Moles/Vol] 139 mmol/L 134 - 146 mmol/L [facility] Urea nitrogen [Mass/Vol] 31 mg/dL High 5 - 23 mg/dL [facility] CBC AUTO DIFFon 07-19-2022 BASO # 0.1 103/ul Normal 0.0-0.1 [facility] Comment on above: Performed By: #### C BC #### [facility] [address] [address] [address] Lavonne Tinoco Basophils/100 WBC (Bld) 0.9 % Normal 0.2-2.0 [facility] Comment on above: Performed By: #### C BC #### [facility] [address] [place] [address] Dr. Lavonne Tinoco EO # 0.4 103/ul Normal 0.0-0.7 [facility] Comment on above: Performed By: #### C BC #### [facility] [address] [place] [address] Dr. Lavonne Tinoco Eosinophils/100 WBC (Bld) 4.5 % Normal 0.9-7.0 [facility] Comment on above: Performed By: #### C BC #### [facility] [address] [place] [address] Dr. Lavonne Tinoco Erythrocyte distribution width (RBC) [Ratio] 13.4 % Normal 11.0-15.0 [facility] Comment on above: Performed By: #### C BC #### [facility] [address] [place] [address] Dr. Lavonne Tinoco Hematocrit (Bld) [Volume fraction] 45.0 % Normal 42.0-54.0 [facility] Comment on above: Performed By: #### C BC #### [facility] [address] [place] [address] Dr. Lavonne Tinoco Hemoglobin (Bld) [Mass/Vol] 15.1 g/dL Normal 14.0-18.0 [facility] Comment on above: Performed By: #### C BC #### [facility] [address] [place] [address] Dr. Lavonne Tinoco IG # 0.04 10e3/ul Critically high 0.00-0.03 [facility] Comment on above: Performed By: #### C BC #### [facility] [address] [place] [address] Dr. Lavonne Tinoco IG % 0.4 % Normal 0.0-0.5 [facility] Comment on above: Performed By: #### C BC #### [facility] [address] [place] [address] Dr. Lavonne Tinoco LYMPH # 2.0 103/ul Normal 1.2-3.8 [facility] Comment on above: Performed By: #### C BC #### [facility] [address] [place] [address] Dr. Lavonne Tinoco Lymphocytes/100 WBC (Bld) 21.6 % Normal 20.5-60.0 [facility] Comment on above: Performed By: #### C BC #### [facility] [address] [place] [address] Dr. Lavonne Tinoco MANUAL DIFF REQ NO Normal [facility] Comment on above: Performed By: #### C BC #### [facility] [address] [place] [address] Dr. Lavonne Tinoco MCH (RBC) [Entitic mass] 32.7 pg Normal 25.9-34.0 [facility] Comment on above: Performed By: #### C BC #### [facility] [address] [place] [address] Dr. Lavonne Tinoco MCHC (RBC) [Mass/Vol] 33.6 g/dL Normal 29.9-35.2 [facility] Comment on above: Performed By: #### C BC #### [facility] [address] [place] [address] Dr. Lavonne Tinoco MCV (RBC) [Entitic vol] 97.4 fL Critically high 80.0-94.0 [facility] Comment on above: Performed By: #### C BC #### [facility] [address] [place] [address] Dr. Lavonne Tinoco MONO # 0.6 103/ul Normal 0.3-0.8 [facility] Comment on above: Performed By: #### C BC #### [facility] [address] [place] [address] Dr. Lavonne Tinoco Monocytes/100 WBC (Bld) 6.0 % Normal 1.7-12.0 [facility] Comment on above: Performed By: #### C BC #### [facility] [address] [place] [address] Dr. Lavonne Tinoco NEUT # 6.3 103/ul Normal 1.4-6.5 [facility] Comment on above: Performed By: #### C BC #### [facility] [address] [place] [address] Dr. Lavonne Tinoco Neutrophils/100 WBC (Bld) 66.6 % Normal 43.0-75.0 [facility] Comment on above: Performed By: #### C BC #### [facility] [address] [address] [address] Lavonne Tinoco Platelet mean volume (Bld) [Entitic vol] 10.7 fL Normal 9.5-13.5 [facility] Comment on above: Performed By: #### C BC #### [facility] [address] [place] [address] Dr. Lavonne Tinoco PLT 300 103/ul Normal 150-450 [facility] Comment on above: Performed By: #### C BC #### [facility] [address] [place] [address] Dr. Lavonne Tinoco RBC 4.62 106/ul Critically low 4.70-6.10 [facility] Comment on above: Performed By: #### C BC #### [facility] [address] [place] [address] Dr. Lavonne Tinoco WBC 9.4 103/ul Normal 4.0-11.0 [facility] Comment on above: Performed By: #### C BC #### [facility] [address] [place] [address] Dr. Lavonne Tinoco FREE T4on 07-19-2022 Free T4 [Mass/Vol] 0.90 ng/dL Normal 0.76-1.46 [facility] Comment on above: Performed By: #### C MP, TSH, LIPID #### [facility] [address] [place] [address] Dr. Lavonne Tinoco LIPID PROFILEon 07-19-2022 CHOL-HDL RATIO NORM SEE BELOW Normal [facility] Comment on above: Result Comment: 3.3 - 4.4 LOW RISK 4.4 - 7.1 AVERAGE RISK 7.1 - 11.0 MODERATE RISK >11.0 HIGH RISK Performed By: #### C MP, TSH, LIPID #### [facility] [address] [address] [address] Lavonne Tinoco Cholesterol [Mass/Vol] 207 mg/dL Critically high <=200 [facility] Comment on above: Performed By: #### C MP, TSH, LIPID #### [facility] [address] [address] [address] Lavonne Tinoco Cholesterol in HDL [Mass/Vol] 37 mg/dL Critically low 40-60 [facility] Comment on above: Performed By: #### C MP, TSH, LIPID #### [facility] [address] [address] [address] Lavonne Tinoco Cholesterol in LDL [Mass/Vol] 143.8 mg/dL Normal [facility] Comment on above: Performed By: #### C MP, TSH, LIPID #### [facility] [address] [address] [address] Lavonne Tinoco Cholesterol.total/Chol esterol in HDL [Mass ratio] 5.6 {ratio} Normal [facility] Comment on above: Performed By: #### C MP, TSH, LIPID #### [facility] [address] [address] [address] Lavonne Tinoco HDL NORMAL > or = 60 mg/dl - LOW CARDIOVASCULAR RISK <40 mg/dl - HIGH CARDIOVASCULAR RISK Normal [facility] Comment on above: Performed By: #### C MP, TSH, LIPID #### [facility] [address] [address] [address] Lavonne Tinoco LDL CALC NORMAL SEE BELOW Normal [facility] Comment on above: Result Comment: <100 mg/dl OPTIMAL 100 - 129 mg/dl NEAR OR ABOVE OPTIMAL 130 - 159 mg/dl BORDERLINE HIGH 160 - 189 mg/dl HIGH >190 mg/dl VERY HIGH Performed By: #### C MP, TSH, LIPID #### [facility] [address] [address] [address] Lavonne Tinoco Triglyceride [Mass/Vol] 131 mg/dL Normal <=150 [facility] Comment on above: Performed By: #### C MP, TSH, LIPID #### [facility] [address] [address] [address] Lavonne Tinoco VLDL CALC 26.2 mg/dL Normal [facility] Comment on above: Performed By: #### C MP, TSH, LIPID #### [facility] [address] [place] [address] Dr. Lavonne Tinoco PROF 14(COMP METB)on 022 Albumin [Mass/Vol] 3.6 g/dL Normal 3.4-5.0 [facility] Comment on above: Performed By: #### C MP, TSH, LIPID #### [facility] [address] [place] [address] Dr. Lavonne Tinoco Albumin/Globulin [Mass ratio] 1.0 {ratio} Normal [facility] Comment on above: Performed By: #### C MP, TSH, LIPID #### [facility] [address] [place] [address] Dr. Lavonne Tinoco ALP [Catalytic activity/Vol] 85 U/L Normal 46-116 [facility] Comment on above: Performed By: #### C MP, TSH, LIPID #### [facility] [address] [place] [address] Dr. Lavonne Tinoco ALT [Catalytic activity/Vol] 33 U/L Normal 16-63 [facility] Comment on above: Performed By: #### C MP, TSH, LIPID #### [facility] [address] [place] [address] Dr. Lavonne Tinoco Anion gap [Moles/Vol] 9.2 mmol/L Normal [facility] Comment on above: Performed By: #### C MP, TSH, LIPID #### [facility] [address] [place] [address] Dr. Lavonne Tinoco AST [Catalytic activity/Vol] 17 U/L Normal 15-37 [facility] Comment on above: Performed By: #### C MP, TSH, LIPID #### [facility] [address] [place] [address] Dr. Lavonne Tinoco Bilirubin [Mass/Vol] 0.5 mg/dL Normal 0.2-1.0 [facility] Comment on above: Performed By: #### C MP, TSH, LIPID #### [facility] [address] [address] [address] Lavonne Tinoco Calcium [Mass/Vol] 8.5 mg/dL Normal 8.5-10.1 [facility] Comment on above: Performed By: #### C MP, TSH, LIPID #### [facility] [address] [address] [address] Lavonne Tinoco Chloride [Moles/Vol] 106 mmol/L Normal 98-107 [facility] Comment on above: Performed By: #### C MP, TSH, LIPID #### [facility] [address] [address] [address] Lavonne Tinoco CO2 [Moles/Vol] 31.3 mmol/L Normal 21.0-32.0 [facility] Comment on above: Performed By: #### C MP, TSH, LIPID #### [facility] [address] [place] [address] Dr. Lavonne Tinoco Creatinine [Mass/Vol] 1.06 mg/dL Normal 0.70-1.30 [facility] Comment on above: Performed By: #### C MP, TSH, LIPID #### [facility] [address] [place] [address] Dr. Lavonne Tinoco EGFR-AF GIBRALTARIAN >60 Normal >=60 [facility] Comment on above: Performed By: #### C MP, TSH, LIPID #### [facility] [address] [place] [address] Dr. Lavonne Tinoco EGFR-NON AF GIBRALTARIAN >60 Normal >=60 [facility] Comment on above: Performed By: #### C MP, TSH, LIPID #### [facility] [address] [place] [address] Dr. Lavonne Tinoco Globulin (S) [Mass/Vol] 3.6 g/dL Normal [facility] Comment on above: Performed By: #### C MP, TSH, LIPID #### [facility] [address] [address] [address] Lavonne Tinoco Glucose [Mass/Vol] 101 mg/dL Normal 74-106 [facility] Comment on above: Performed By: #### C MP, TSH, LIPID #### [facility] [address] [place] [address] Dr. Lavonne Tinoco Potassium [Moles/Vol] 3.5 mmol/L Normal 3.5-5.1 [facility] Comment on above: Performed By: #### C MP, TSH, LIPID #### [facility] [address] [place] [address] Dr. Lavonne Tinoco Protein [Mass/Vol] 7.2 g/dL Normal 6.4-8.2 [facility] Comment on above: Performed By: #### C MP, TSH, LIPID #### [facility] [address] [place] [address] Dr. Lavonne Tinoco Sodium [Moles/Vol] 143 mmol/L Normal 136-145 [facility] Comment on above: Performed By: #### C MP, TSH, LIPID #### [facility] [address] [place] [address] Dr. Lavonne Tinoco Urea nitrogen [Mass/Vol] 21.0 mg/dL Critically high 7.0-18.0 [facility] Comment on above: Performed By: #### C MP, TSH, LIPID #### [facility] [address] [place] [address] Dr. Lavonne Tinoco Urea nitrogen/Creatinine [Mass ratio] 19.8 mg/mg Normal [facility] Comment on above: Performed By: #### C MP, TSH, LIPID #### [facility] [address] [place] [address] Dr. Lavonne Tinoco TSHon 07-19-2022 TSH 1.947 uIU/mL Normal 0.358-3.740 [facility] Comment on above: Performed By: #### C MP, TSH, LIPID #### [facility] [address] [place] [address] Dr. Lavonne Tinoco UA RANDOM W/MICROSCOPICon BACTERIA NONE SEEN Normal NONE SEEN [facility] Comment on above: Performed By: #### U AMIC #### [facility] [address] [place] [address] Dr. Lavonne Tinoco Bilirubin Ql (U) Negative Normal NEGATIVE [facility] Comment on above: Performed By: #### U AMIC #### [facility] [address] [address] [address] Lavonne Tinoco CAST NONE SEEN Normal NONE SEEN [facility] Comment on above: Performed By: #### U AMIC #### [facility] [address] [address] [address] Lavonne Tinoco Clarity (U) CLEAR Normal CLEAR [facility] Comment on above: Performed By: #### U AMIC #### [facility] [address] [address] [address] Lavonne Tinoco Color (U) YELLOW Normal YELLOW [facility] Comment on above: Performed By: #### U AMIC #### [facility] [address] [address] [address] Lavonne Tinoco Crystals LM Nom (Urine sed) NONE SEEN Normal NONE SEEN [facility] Comment on above: Performed By: #### U AMIC #### [facility] [address] [address] [address] Lavonne Tinoco Epithelial cells LM Ql (Urine sed) FEW Abnormal NONE SEEN /RARE [facility] Comment on above: Performed By: #### U AMIC #### [facility] [address] [address] [address] Lavonne Tinoco Glucose Ql (U) Negative Normal NEGATIVE [facility] Comment on above: Performed By: #### U AMIC #### [facility] [address] [address] [address] Lavonne Tinoco Hemoglobin Ql (U) Negative Normal NEGATIVE [facility] Comment on above: Performed By: #### U AMIC #### [facility] [address] [address] [address] Lavonne Tinoco Ketones Ql (U) Negative Normal NEGATIVE [facility] Comment on above: Performed By: #### U AMIC #### [facility] [address] [address] [address] Lavonne Tinoco LEUKOCYTES TRACE Abnormal NEGATIVE [facility] Comment on above: Performed By: #### U AMIC #### [facility] [address] [address] [address] Lavonne Tinoco MUCOUS NONE SEEN Normal NONE SEEN [facility] Comment on above: Performed By: #### U AMIC #### [facility] [address] [address] [address] Lavonne Tinoco Nitrite Ql (U) Negative Normal NEGATIVE [facility] Comment on above: Performed By: #### U AMIC #### [facility] [address] [address] [address] Lavonne Tinoco pH (U) 6.0 [pH] Normal 5-9 [facility] Comment on above: Performed By: #### U AMIC #### [facility] [address] [address] [address] Lavonne Tinoco RBC NONE SEEN Abnormal 0-2 [facility] Comment on above: Performed By: #### U AMIC #### [facility] [address] [place] [address] Dr. Lavonne Tinoco SPEC GRAVITY 1.020 Normal 1.005-<=1.025 [facility] Comment on above: Performed By: #### U AMIC #### [facility] [address] [address] [address] Lavonne Tinoco UA PROTEIN TRACE Normal NEGATIVE/ TRACE [facility] Comment on above: Performed By: #### U AMIC #### [facility] [address] [address] [address] Lavonne Tinoco Urobilinogen Qn (U) 2.0 {Erick'U}/dL Abnormal 0.2 - 1. 0 [facility] Comment on above: Performed By: #### U AMIC #### [facility] [address] [address] [address] Lavonne Tinoco WBC 0-2 Abnormal NONE SEEN [facility] Comment on above: Performed By: #### U AMIC #### [facility] [address] [place] [address] Dr. Lavonne Tinoco NM STRESS/REST MULTIon 04-04 NM STRESS/REST MULTI Patient: AUNDREA ABRAM A. Exam Date: 04/04/2022 : 1965 Gender:M Ordering : [facility] Admission #: [id number] Family : Order #: [id number] CLICK HERE TO VIEW EXAM RADIOLOGY REPORT [...] Gan MD on 04/04/2022 at 13:16 Normal [facility] ECHOCARDIO M/2D COMPLETEon 0 02-27-2022 ECHOCARDIO M/2D COMPLETE Patient: ABRAM GUILLAUME Exam Date: 02/27/2022 : 1965 Gender:M Ordering : [facility] Admission #: [id number] Family : Order #: [id number] CLICK HERE TO VIEW EXAM ECHOCARDIOGRAM REPORT [...] Area(A4C): 21.60 cm2 Left Atrium Systolic Volume(A2C): 14777 mm3 Left Atrium Systolic Volume(A4C): 19144 mm3 Mitral Valve MV E to A [...] Peck M.D. on 02/28/2022 at 11:52 Normal [facility] ANKLE LEFT 3 [facility] 2 ANKLE LEFT 3 [facility] Department of Radiology [address] [place] [id number] Patient Name: ABRAM GUILLAUME : 1965 [...] Weight Bearing?: Y Exam: ANKLE LEFT 3 [facility] ANKLE LEFT 3 VWS 01/11/2022 9:13 AM [...] above Electronically signed: Violeta Jay. Transcribed by: [email or web address], User Resident: Electronically Signed by: VIOLETA JAY @ 01/12/2022 03:24 PM Normal [facility] Comment on above: Order Comment: Views (X-RAY, ANKLE): AP, Lateral, Mortise , Weight Bearing?: Y GLYCOHEMOGLOBIN A1Con 2021 ADA RECOMMENDATION ADA THERAPEUTIC TARGET 6.0 - 7.0 ACTION SUGGESTED > 7.0 Normal [facility] Comment on above: Performed By: #### A 1C #### [facility] [address] [place] [address] Dr. Lavonne Tinoco Glucose [Mass/Vol] 100 mg/dL Normal [facility] Comment on above: Performed By: #### A 1C #### [facility] [address] [place] [address] Dr. Lavonne Tinoco HbA1c (Bld) [Mass fraction] 5.1 % Normal <=6.0 [facility] Comment on above: Performed By: #### A 1C #### [facility] [address] [place] [address] Dr. Lavonne Tinoco MAGNESIUMon 12-25-2021 Magnesium [Mass/Vol] 1.7 mg/dL Normal 1.6-2.3 [facility] Comment on above: Performed By: #### M G, BMP #### [facility] [address] [place], [place] [id number] Dr. Lavonne Tinoco PROF CHEM 8 (BAS METB)on Anion gap [Moles/Vol] 12.3 mmol/L Normal [facility] Comment on above: Performed By: #### M G, BMP #### [facility] [address] [place] [address] Dr. Lavonne Tinoco Calcium [Mass/Vol] 8.7 mg/dL Normal 8.5-10.1 [facility] Comment on above: Performed By: #### M G, BMP #### [facility] [address] [address] [address] Lavonne Tinoco Chloride [Moles/Vol] 107 mmol/L Normal 98-107 [facility] Comment on above: Performed By: #### M G, BMP #### [facility] [address] [place] [address] Dr. Lavonne Tinoco CO2 [Moles/Vol] 27.4 mmol/L Normal 22.0-30.0 [facility] Comment on above: Performed By: #### M G, BMP #### [facility] [address] [place] [address] Dr. Lavonne Tinoco Creatinine [Mass/Vol] 1.50 mg/dL Critically high 0.66-1.25 [facility] Comment on above: Performed By: #### M G, BMP #### [facility] [address] [place] [address] Dr. Lavonne Tinoco EGFR-AF GIBRALTARIAN 59 mL/min/1.73m2 Critically low >=60 [facility] Comment on above: Performed By: #### M G, BMP #### [facility] [address] [place] [address] Dr. Lavonne Tinoco EGFR-NON AF GIBRALTARIAN 49 mL/min/1.73m2 Critically low >=60 [facility] Comment on above: Performed By: #### M G, BMP #### [facility] [address] [place] [address] Dr. Lavonne Tinoco Glucose [Mass/Vol] 103 mg/dL Normal 74-106 [facility] Comment on above: Performed By: #### M G, BMP #### [facility] [address] [address] [address] Lavonne Tinoco Potassium [Moles/Vol] 3.7 mmol/L Normal 3.4-5.0 [facility] Comment on above: Performed By: #### M G, BMP #### [facility] [address] [address] [address] Lavonne Tinoco Sodium [Moles/Vol] 143 mmol/L Normal 137-145 [facility] Comment on above: Performed By: #### M G, BMP #### [facility] [address] [address] [address] Lavonne Tinoco Urea nitrogen [Mass/Vol] 17.0 mg/dL Normal 7.0-18.0 [facility] Comment on above: Performed By: #### M G, BMP #### [facility] [address] [address] [address] Lavonne Tinoco Urea nitrogen/Creatinine [Mass ratio] 11.3 mg/mg Normal [facility] Comment on above: Performed By: #### M G, BMP #### [facility] [address] [address] [address] Lavonne Tinoco Vital Signs Date Time Vital Sign Value Performing Clinician Facility 10-07-2024 09:05-0500 Body height 175.3 cm Pepper Sexton [employer] Work Phone: [facility] 10-07-2024 09:05-0500 Body mass index (BMI) [Ratio] 41.47 kg/m2 Pepper Sexton [employer] Work Phone: [facility] 10-07-2024 09:05-0500 Body temperature 97.81 [degF] Pepper Sexton [employer] Work Phone: [facility] 10-07-2024 09:05-0500 Body weight 127.37 kg Pepper Sexton [employer] Work Phone: [facility] 10-07-2024 09:05-0500 Diastolic blood pressure 84 mm[Hg] Pepper Sexton [employer] [facility] [facility] 10-07-2024 09:05-0500 Heart rate 92 /min Pepper Aichholz [employer] Work Phone: [facility] 10-07-2024 09:05-0500 Respiratory rate 22 /min Pepper Aichholz [employer] Work Phone: [facility] 10-07-2024 09:05-0500 SaO2% (BldA) [Mass fraction] 96 % Pepper Aichholz [employer] Work Phone: [facility] 10-07-2024 09:05-0500 Systolic blood pressure 138 mm[Hg] Pepper Aichholz [employer] Work Phone: [facility] 10-06-2024 09:05-0500 Diastolic blood pressure 86 mm[Hg] Pepper Aichholz Work Phone: [facility] 10-06-2024 09:05-0500 Heart rate 88 /min Pepper Aichholz Work Phone: [facility] 10-06-2024 09:05-0500 Respiratory rate 18 /min Pepper Aichholz Work Phone: [facility] 10-06-2024 09:05-0500 SaO2% (BldA) [Mass fraction] 96 % Pepper Aichholz Work Phone: [facility] 10-06-2024 09:05-0500 Systolic blood pressure 136 mm[Hg] Pepper Aichholz Work Phone: [facility] 10-06-2024 07:31-0500 Body height 177.8 cm Pepper Aichholz Work Phone: [facility] 10-06-2024 07:31-0500 Body weight 115.66 kg Pepper Aichholz Work Phone: [facility] 07-09-2024 13:55-0400 Diastolic blood pressure 74 mm[Hg] Pepper Aichholz Work Phone: [facility] 07-09-2024 13:55-0400 Heart rate 74 /min Pepper Aichholz Work Phone: [facility] 07-09-2024 13:55-0400 Respiratory rate 18 /min Pepper Aichholz Work Phone: [facility] 07-09-2024 13:55-0400 SaO2% (BldA) [Mass fraction] 100 % Pepper Aichholz Work Phone: [facility] 07-09-2024 13:55-0400 Systolic blood pressure 111 mm[Hg] Pepper Aichholz Work Phone: [facility] 07-09-2024 11:51-0400 Body height 175.26 cm Pepper Aichholz Work Phone: [facility] 07-09-2024 11:51-0400 Body temperature 98.6 [degF] Pepper Aichholz Work Phone: [facility] 07-09-2024 11:51-0400 Body weight 117.9 kg Pepper Aichholz Work Phone: [facility] 07-06-2024 09:44-0400 Body height 175.3 cm Pepper Aichholz [employer] Work Phone: [facility] 07-06-2024 09:44-0400 Body mass index (BMI) [Ratio] 37.18 kg/m2 Pepper Aichholz [employer] Work Phone: [facility] 07-06-2024 09:44-0400 Body temperature 98.1 [degF] Pepper Aichholz [employer] Work Phone: [facility] 07-06-2024 09:44-0400 Body weight 114.22 kg Pepper Aichholz [employer] Work Phone: [facility] 07-06-2024 09:44-0400 Diastolic blood pressure 82 mm[Hg] Pepper Aichholz [employer] Work Phone: [facility] 07-06-2024 09:44-0400 Heart rate 79 /min Pepper Sexton [employer] Work Phone: [facility] 07-06-2024 09:44-0400 Respiratory rate 19 /min Pepper Sexton [employer] Work Phone: [facility] 07-06-2024 09:44-0400 SaO2% (BldA) [Mass fraction] 93 % Pepper Sexton [employer] Work Phone: [facility] 07-06-2024 09:44-0400 Systolic blood pressure 126 mm[Hg] Pepper Sexton [employer] Work Phone: [facility] 06-24-2024 08:39-0400 Body height 175.[address] [facility] 06-24-2024 08:39-0400 Body mass index (BMI) [Ratio] 42.3 kg/m2 [facility] 06-24-2024 08:39-0400 Body weight [address] [facility] 06-23-2024 08:50-0400 Body height 175.[address] [facility] 06-23-2024 08:50-0400 Body mass index (BMI) [Ratio] 42.3 kg/m2 [facility] 06-23-2024 08:50-0400 Body temperature 98.2 [degF] [facility] 06-23-2024 08:50-0400 Body weight 129.[address] [facility] 06-23-2024 08:50-0400 Diastolic blood pressure 77 mm[Hg] [facility] 06-23-2024 08:50-0400 Heart rate 91 /min [facility] 06-23-2024 08:50-0400 Respiratory rate 18 /min [facility] 06-23-2024 08:50-0400 SaO2% (BldA) [Mass fraction] 93 % [facility] 06-23-2024 08:50-0400 Systolic blood pressure 115 mm[Hg] [facility] 04-27-2024 08:35-0400 Body height 175.3 cm [facility] 2 [facility] 04-27-2024 08:35-0400 Body mass index (BMI) [Ratio] 38.4 kg/m2 [facility] 2 [facility] 04-27-2024 08:35-0400 Body weight 117.94 kg Pm 2 [facility] 03-19-2024 09:37-0400 Body height 175.[address] [facility] 03-19-2024 09:37-0400 Body mass index (BMI) [Ratio] 39.4 kg/m2 [facility] 03-19-2024 09:37-0400 Body temperature 97.8 [degF] [facility] 03-19-2024 09:37-0400 Body weight 121.[address] [facility] 03-19-2024 09:37-0400 Diastolic blood pressure 98 mm[Hg] [facility] 03-19-2024 09:37-0400 Heart rate 94 /min [facility] 03-19-2024 09:37-0400 Respiratory rate 20 /min [facility] 03-19-2024 09:37-0400 SaO2% (BldA) [Mass fraction] 95 % [facility] 03-19-2024 09:37-0400 Systolic blood pressure 158 mm[Hg] [facility] Encounters Encounter Date Encounter Type Care Provider Facility Start: 11-05-2024 End: 11-05-2024 Clinisync Result Encounter Pepper Sexton [employer] Work Phone: [facility] Unsolicited Start: 11-05-2024 End: 11-05-2024 Clinisync Result Encounter Pepper Sexton [employer] Work Phone: [facility] Unsolicited Start: 11-04-2024 End: 11-04-2024 Refill Pepper Sexton [employer] Work Phone: [facility] Comment on above: Hypomagnesemia; Restless legs syndrome Start: 10-08-2024 End: 10-08-2024 Refill Pepper Javierpricillajemal [employer] Work Phone: [facility] Comment on above: Hypothyroidism, unsp ecified type (CMS/HCC) (Primary Dx); Hypomagnesemia Start: 10-07-2024 End: 10-07-2024 Bamboo flowsheet Pepper Javierpricillajemal [employer] Work Phone: [facility] Start: 10-07-2024 End: 10-07-2024 Bamboo flowsheet Pepper Javierpricillajemal [employer] Work Phone: [facility] Start: 10-07-2024 End: 10-07-2024 Clinisync Result Encounter Pepper Sexton [employer] Work Phone: [facility] External Department Unsolicited Start: 10-07-2024 End: 10-07-2024 Office outpatient visit 25 minutes Pepper Sexton [employer] Work Phone: [facility] Comment on above: Essential hypertensi on, [...] Non-visit Pepper lorenz Work Phone: [facility] Work Phone: Start: 10-06-2024 End: 10-06-2024 Admission to same day surgery center Pepper Sexton Work Phone: [facility] Work Phone: Start: 10-06-2024 End: 10-06-2024 ambulatory Pepper Wheeler Javierpricillajemal Work Phone: [facility] Work Phone: Start: 09-28-2024 End: 09-28-2024 Clinisync Result Encounter Pepper Rojelioholz [employer] Work Phone: [facility] Unsolicited Start: 09-28-2024 End: 09-28-2024 Clinisync Result Encounter Pepper Rojelioholz [employer] Work Phone: [facility] Unsolicited Start: 09-28-2024 End: 09-28-2024 Refill Pepper Aicpricillaholz [employer] Work Phone: [facility] Comment on above: Hypomagnesemia (Prim ирина Dx) Start: 09-14-2024 End: 09-14-2024 Refill Pepper Aicpricillaholz [employer] Work Phone: [facility] Comment on above: Hypomagnesemia Start: 09-14-2024 End: 09-15-2024 Refill Pepper Aichholz [employer] Work Phone: [facility] Comment on above: Fibromyalgia Start: 09-04-2024 End: 09-04-2024 Orders Only Pepper Aichholz [employer] Work Phone: [facility] Comment on above: Hypomagnesemia (Prim ирина Dx) Start: 09-04-2024 End: 09-04-2024 Refill Pepper Aichholz [employer] Work Phone: [facility] Comment on above: Hypomagnesemia Start: 07-09-2024 Non-patient / Non-visit Pepper lorenz Work Phone: [facility] Work Phone: Start: 07-09-2024 End: 07-09-2024 Admission to same day surgery center Pepper Sexton Work Phone: [facility] Work Phone: Start: 07-09-2024 End: 07-09-2024 ambulatory Pepper Wheeler Javierpricillajemal Work Phone: [facility] Work Phone: Start: 07-06-2024 End: 07-06-2024 Bamboo flowsheet Pepper Carlie [employer] Work Phone: [facility] Start: 07-06-2024 End: 07-06-2024 Bamboo flowsheet Pepper Javierpricillajemal [employer] Work Phone: [facility] Start: 07-06-2024 End: 07-06-2024 Office outpatient visit 25 minutes Pepper Carlie [employer] Work Phone: [facility] Comment on above: Essential hypertensi on, benign (CMS/HCC) (Primary Dx); Hypomagnesemia; Gastroesophageal reflux disease, unspecified whether esophagitis present; Obesity (BMI 30-39.9); Hypothyroidism, unspecified type (CMS/HCC); Needs flu shot Start: 07-06-2024 End: 07-06-2024 ambulatory PEPPER CARLIE Not Available Start: 06-30-2024 End: 06-30-2024 Bamboo flowsheet Rupert Bo DO Work Phone: [facility] Start: 06-30-2024 End: 06-30-2024 Bamboo flowsheet Rupert Bo DO Work Phone: [facility] Start: 06-30-2024 End: 06-30-2024 Postop follow up visit related to original px Rupert Bo DO Work Phone: [facility] Comment on above: 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 Work Phone: Start: 06-23-2024 End: 06-23-2024 Clinisync Result Encounter Generic External Data Provider [facility] Unsolicited Start: 06-23-2024 End: 06-23-2024 Clinisync Result Encounter Generic External Data Provider [facility] Unsolicited Start: 06-23-2024 End: 06-23-2024 ambulatory [facility] Work Phone: Start: 06-23-2024 End: 06-23-2024 Patient encounter procedure [facility] [place] Work Phone: Start: 06-18-2024 End: 06-18-2024 Refill Agustin Stokes MD Work Phone: [facility] [address] Comment on above: Degenerative disc di sease, cervical (Primary Dx) Start: 06-09-2024 End: 06-09-2024 Refill Pepper Sexton [employer] Work Phone: [facility] Comment on above: Hypomagnesemia questions Start: 06-03-2024 End: 06-03-2024 Bamboo flowsheet Blank Langston Apling [employer] Work Phone: [facility] Start: 06-03-2024 End: 06-03-2024 Bamboo flowsheet Blank B Apling [employer] WORK[employer] Work Phone: [facility] Start: 06-03-2024 End: 06-03-2024 ambulatory BLANK Langston APLING Not Available Start: 06-03-2024 End: 06-03-2024 Postop follow up visit related to original px Blank Langston Apling [employer] WORKER Work Phone: [facility] Comment on above: 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) Start: 05-27-2024 End: 05-27-2024 Evaluation and management of inpatient KENNEDI GRESHAM [facility] Start: 05-27-2024 End: 05-27-2024 Evaluation and management of inpatient [facility] Start: 05-26-2024 End: 05-26-2024 Refill Tiburcio Noel [employer] Work Phone: [facility] Comment on above: Post-operative pain (Primary Dx) Start: 05-04-2024 Preoperative state Tiburcio Noel NP Work Phone: [facility] Start: 05-04-2024 End: 05-04-2024 ambulatory PEPPER AICHHOLZ Not Available Start: 04-30-2024 End: 04-30-2024 ambulatory [facility] Not Available Start: 04-27-2024 End: 04-27-2024 ambulatory [facility] Start: 04-27-2024 Encounter for other [facility]procedural examination [facility] Start: 04-27-2024 End: 04-27-2024 Patient encounter procedure [facility] Pre-Admission Testing 2 [facility] Comment on above: Preop examination (P rimary Dx); Hypertension, unspecified type Start: 04-27-2024 End: 04-27-2024 Preprocedural examination done Pm 2 [facility] Start: 04-09-2024 End: 04-09-2024 ambulatory PEPPER AICHHOLZ Not Available Start: 03-19-2024 End: 03-19-2024 ambulatory [facility] Work Phone: Start: 03-19-2024 End: 03-19-2024 Patient encounter procedure [facility] Work Phone: Start: 03-11-2024 End: 03-11-2024 ambulatory PEPPER AICHHOLZ Not Available Start: 03-05-2024 End: 03-05-2024 ambulatory RUPERT STALLINGSSTON Not Available Start: 02-26-2024 End: 02-26-2024 ambulatory BLANK MCFARLANE Not Available Start: 02-26-2024 End: 02-26-2024 ambulatory PEPPER AICHHOLZ Not Available Start: 02-04-2024 End: 02-04-2024 ambulatory KARUNA CARRANZA Not Available Start: 01-07-2024 End: 01-07-2024 ambulatory AGUSTIN STOKES Not Available Start: 11-26-2023 End: 11-26-2023 ambulatory PEPPER AICHHOLZ Not Available Start: 07-19-2022 End: 07-20-2022 ambulatory RADIOLOGY TECH PEPPER AICHHOLZ Facility:[facility] Start: 04-04-2022 End: 04-05-2022 ambulatory RADIOLOGY TECH PEPPER AICHHOLZ Facility:[facility] Start: 02-27-2022 End: 02-28-2022 ambulatory RADIOLOGY TECH PEPPER AICHHOLZ Facility:[facility] Start: 01-16-2022 End: 01-17-2022 ambulatory RADIOLOGY TECH PEPPER AICHHOLZ Facility:[facility] Start: 12-25-2021 End: 12-26-2021 ambulatory RADIOLOGY TECH PEPPER AICHHOLZ Facility:[facility] Procedures Date Procedure Procedure Detail Performing Clinician Start: 11-05-2024 ALL MAGNESIUM Pepper Aichholz [employer] Work Phone: Start: 10-07-2024 ALL MAGNESIUM Pepper Aichholz [employer] Work Phone: Start: 10-07-2024 ALL THYROID STIM HORMONE Pepper Aichholz N P Work Phone: Start: 10-07-2024 Hemoglobin glycosylated a1c Pepper Aichhol z [employer] Work Phone: Start: 10-06-2024 Esophagogastroduodenoscopy Pepper Aichholz Work Phone: Start: 09-28-2024 ALL BASIC METABOLIC PANEL Pepper Aichholz [employer] Work Phone: Start: 09-28-2024 ALL MAGNESIUM Pepper Aichholz [employer] Work Phone: Start: 07-09-2024 Esophagogastroduodenoscopy Pepper Serratojemal Work Phone: Start: 06-23-2024 ALL MAGNESIUM Generic External Data Provider Start: 06-23-2024 ALL RENAL FUNCTION PANEL Generic Externa l Data Provider Start: 06-23-2024 ALL URIC ACID Generic External Data Provider Start: 07-19-2022 PSA screening RADIOLOGY TECH PEPPER SERRATOJAYLENEulalio Comment on above: Performed By: #### CMP, TSH, LIPID #### [facility] [address] [address] [address] Lavonne Tinoco Plan of Treatment Date Care Activity Detail Author Start: 08-11-2025 Screening for malign ant neoplasm of colon [facility] Start: 04-27-2025 Adult BMI Screening Adult BMI Screen ing [facility] Start: 04-27-2025 Tobacco Screening Tobacco Screening [facility] Start: 01-06-2025 End: 01-06-2025 Patient encounter procedure 01/06/2025 9:00 AM EDT Office Visit [facility] [address] [place] [phone] Pepper Sexton, [employer] [address] [place] [phone] [facility] Start: 12-06-2024 End: 10-08-2025 Thyrotropin [Units/volume] in Serum or Plasma TSH Lab Routine Hypothyroidism, unspecified type (CMS/HCC) Expected: 12/06/2024 (Approximate), Expires: 10/08/2025 [facility] Work Phone: Comment on above: Expected: 12/06/2024 (Approximate), Expires: 10/08/2025 Start: 12-06-2024 End: 10-08-2025 Thyroxine (T4) free [Mass/volume] in Serum or Plasma T4, free Lab Routine Hypothyroidism, unspecified type (CMS/HCC) Expected: 12/06/2024 (Approximate), Expires: 10/08/2025 [facility] Comment on above: Expected: 12/06/2024 (Approximate), Expires: 10/08/2025 Start: 10-22-2024 End: 10-08-2025 Magnesium [Mass/volume] in Serum or Plasma Magnesium Lab Routine Hypomagnesemia Expected: 10/22/2024 (Approximate), Expires: 10/08/2025 [facility] Comment on above: Expected: 10/22/2024 (Approximate), Expires: 10/08/2025 Start: 10-07-2024 End: 10-07-2025 Magnesium [Mass/volume] in Serum or Plasma Magnesium Lab Routine Hypomagnesemia Expected: 10/07/2024 (Approximate), Expires: 10/07/2025 [facility] Comment on above: Expected: 10/07/2024 (Approximate), Expires: 10/07/2025 Start: 10-07-2024 End: 10-07-2025 Thyrotropin [Units/volume] in Serum or Plasma TSH Lab Routine Hypothyroidism, unspecified type (CMS/HCC) Expected: 10/07/2024 (Approximate), Expires: 10/07/2025 [facility] Work Phone: Comment on above: Expected: 10/07/2024 (Approximate), Expires: 10/07/2025 Start: 10-07-2024 End: 10-07-2025 Thyroxine (T4) free [Mass/volume] in Serum or Plasma T4, free Lab Routine Hypothyroidism, unspecified type (CMS/HCC) Expected: 10/07/2024 (Approximate), Expires: 10/07/2025 [facility] Comment on above: Expected: 10/07/2024 (Approximate), Expires: 10/07/2025 Start: 10-07-2024 End: 10-07-2024 Patient encounter procedure [facility] Comment on above: GURVINDER (obstructive sle ep apnea) (Primary Dx); Morbid (severe) obesity due to excess calories (CMS/HCC); Gastro-esophageal reflux disease without esophagitis; Body mass index (BMI) 37.0-37.9, adult; COPD mixed type (CMS/HCC); Essential hypertension, benign (CMS/HCC); Pulmonary hypertension (CMS/HCC); Hypothyroidism, unspecified type (CMS/HCC); Obesity (BMI 30-39.9); Mixed hyperlipidemia (CMS/HCC); Hypomagnesemia; Marijuana use; Pre-diabetes Start: 10-06-2024 [facility] Start: 09-04-2024 End: 09-04-2025 Basic metabolic 1998 panel - Serum or Plasma Basic metabolic panel Lab Routine Hypomagnesemia Expected: 09/04/2024 (Approximate), Expires: 09/04/2025 [facility] Comment on above: Expected: 09/04/2024 (Approximate), Expires: 09/04/2025 Start: 09-04-2024 End: 09-04-2025 Magnesium [Mass/volume] in Serum or Plasma Magnesium Lab Routine Hypomagnesemia Expected: 09/04/2024 (Approximate), Expires: 09/04/2025 [facility] Work Phone: Comment on above: Expected: 09/04/2024 (Approximate), Expires: 09/04/2025 Start: 07-09-2024 [facility] Start: 07-06-2024 End: 07-06-2024 Patient encounter procedure [facility] Comment on above: Arrived Start: 06-30-2024 End: 06-30-2024 Patient encounter procedure [facility] Comment on above: Arrived Start: 06-09-2024 End: 06-09-2025 Basic metabolic 1998 panel - Serum or Plasma Basic metabolic panel Lab Routine Hypomagnesemia Expected: 06/09/2024 (Approximate), Expires: 06/09/2025 [facility] Work Phone: Comment on above: Expected: 06/09/2024 (Approximate), Expires: 06/09/2025 Start: 06-09-2024 End: 06-09-2025 Magnesium [Mass/volume] in Serum or Plasma Magnesium Lab Routine Hypomagnesemia Expected: 06/09/2024 (Approximate), Expires: 06/09/2025 [facility] Comment on above: Expected: 06/09/2024 (Approximate), Expires: 06/09/2025 Start: 06-03-2024 End: 06-03-2024 Patient encounter procedure 06/03/2024 8:45 AM EDT Office Visit [facility] [address] [place] [phone] Blank Mcfarlane, REMBERTO [address] [place] [address] [facility] Start: 05-27-2024 End: 05-27-2024 Patient encounter procedure 05/27/2024 10:40 AM EDT Office Visit [facility] [address] [place] [phone] Karuna Carranza PA [address] [place] [address] [facility] Start: 05-27-2024 End: 05-27-2024 Admission to same day surgery center 05/27/2024 7:30 AM EDT - 05/27/2024 8:30 AM EDT Surgery [facility] [address] [place] [id number] Rupert Bo, DO [address] [place] [address] DECOMPRESSION NERVE ULNAR [38289 (CPT )] [facility] Comment on above: DECOMPRESSION NERVE ULNAR [[id number] (CPT )] Start: 05-27-2024 End: 05-27-2024 Neuroplasty &/transposition ulnar nerve elbow DECOMPRESSION NERVE ULNAR right ulnar neuropathy 05/27/2024 7:30 AM EDT [facility] Start: 05-27-2024 End: 05-27-2024 Patient encounter procedure 05/27/2024 7:30 AM EDT Procedure Visit [facility] Rupert Bo, [address] [place] [address] [facility] Start: 05-27-2024 Subsequent hospital visit by physician 05/27/2024 7:30 AM EDT Hospital Encounter [facility] [address] [place] [phone] Rupert oB, [address] [facility] [address] [place] [address] [facility] Start: 05-24-2024 Influenza vaccination Influenza Vacc ine [facility] Start: 2017 Administration of varicella zoster vaccine Zoster (Shingles) Vaccine (1 of 2) [facility] Start: 1986 DTaP,Tdap and Td Vaccines (1 - Tdap) DTaP,Tdap and Td Vaccines (1 - Tdap) [facility] Start: 1985 Adult BMI Follow Up Plan Adult BMI Follow Up Plan [facility] Start: 1979 Depression Screening Depression Scre ening [facility] Start: 1967 Screening for malign ant neoplasm of colon [facility] Patient Education [facility] Work Phone: Renal function 1999 panel - Serum or Plasma [facility] Renal function 1999 panel - Serum or Plasma [facility] Payers Date Payer Category Payer Self-pay 2019 [facility] er [id number] 2019 Unknown [id number] .[id number] 1967 Unknown [id number] .840.1.865232.3.579.2 .593 1967 Unknown [id number] 2.16.840.1.614117.3.579.2 .593 1967 Unknown [id number] 2.16.840.1.086626.3.579.2 .593 1967 Unknown [id number] 2.16.840.1.486954.3.579.2 .593 1967 Unknown [id number] 2.16.840.1.500857.3.579.2 .593 1967 Unknown [id number] 2.16.840.1.457224.3.579.2 .1286 1967 Unknown [id number] 2..840.1.869436.3.579.2 .128 1967 Unknown [id number] 2.840.1.296986.3.579.2 .1285 1967 Unknown [id number] 2.840.1.612762.3.579.2 .128 1967 Unknown [id number] 2.840.1.601629.3.579.2 .128 1967 Unknown [id number] 2..840.1.816052.3.579.2 .128 1967 Unknown [id number] 2.840.1.948301.3.579.2 .1258 1967 Unknown [id number] 2.840.1.097168.3.579.2 .125 1967 Unknown [id number] 2..840.1.205400.3.579.2 .1259 1967 Unknown [id number] 2.16.840.1.654663.3.579.2 .1258 1967 Unknown [id number] 2.16.840.1.574293.3.579.2 .1259 1967 Unknown [id number] 2.16.840.1.827947.3.579.2 .1258 1967 Unknown [id number] 2.16.840.1.339440.3.579.2 .1258 1967 Unknown [id number] 2.16.840.1.229745.3.579.2 .1258 1967 Unknown [id number] 2.16.840.1.124311.3.579.2 .1258 1967 Unknown [id number] 2.16840.1.994819.3.579.2 .1258 1967 Unknown [id number] 2.16.840.1.902114.3.579.2 .1258 1967 Unknown [id number] 2.16840.1.078209.3.579.2 .1258 1967 Unknown [id number] 2.16840.1.314197.3.579.2 .1258 1967 Unknown [id number] 2.840.1.593603.3.579.2 .1258 1959 Unknown [id number] 1959 Unknown [id number] Unknown [place] BC/BS [id number] Unknown [facility] [id number] Unknown [id number] 2.840.1.897415.3.579.2 .531 Unknown [id number] .531 Social History Date Type Detail Facility Start: 03-19-2024 Tobacco smoking status [facility] Current some day smoker [facility] Start: 1965 Sex Assigned At Male [facility] Start: 04-27-2024 End: 06-23-2024 Tobacco smoking status MAIS Ex-smoker (finding) [facility] History of tobacco use Current smoker [facility] History of tobacco use Cigar Smoker [facility] Start: 04-27-2024 End: 04-30-2024 Tobacco use and exposure Smokeless tobacco non-user [facility] Start: 04-27-2024 End: 06-03-2024 Alcoholic beverage intake Current drinker of alcohol (finding) [facility] Start: 03-04-2019 End: 11-25-2023 History of Social function [facility] Start: 03-04-2019 End: 11-25-2023 Social connection and isolation panel [facility] Healthcare Do you belong to any clubs or organizations such as yarsani groups, unions, fraternal or athletic groups, or [...] To some extent [facility] (I/We) worried wheth er (my/our) food would run out before [...] Alcohol Comment caffeine: 1-2 cups per day [facility] Start: 1965 Sex assigned at Not on file [facility] Start: 07-09-2024 End: 10-06-2024 Tobacco smoking status NHIS Never smoked tobacco (finding) [facility] Start: 10-06-2024 Sex Male (finding) [facility] History of tobacco use Cigarette Smoker P [facility] Start: 04-27-2024 Alcohol Comment social/recreational [facility] Goals Date Patient Goal Desired Activity /State Clinical Notes 04-27-2024 to 10-07-2024 Pepper Sexton NP - 10/07/2024 9:40 AM Kerrie Sexton, REMBERTO - 10/07/2024 9:00 AM Kerrie Sexton, REMBERTO - 10/07/2024 5:47 AM Kerrie Sexton, REMBERTO - 10/07/2024 5:44 AM ESTPatient Instructions Note [...] kidney disease. There is no history of CAD/MD. 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 documented in this encounter [facility] 10-06-2024 History and physical note Note Date/Time October 06, 2024 8:32am [facility] [address] [place] [address] Gastroenterology H&P Signed Patient: Abram Guillaume MR#: [id number] 4 : 1965 Acct:[id number] Age/Sex: 58 / M Adm Date: 5 Loc: Room: Type: [facility] Attending Dr: James Elaine MD Copies to: [...] By: James Elaine MD 10/06/24830 Signed By: <Electronically signed by James Elaine MD> 10/06/24831 [facility] Work Phone: 1(487) 485-365601-14-2025 [place] [address] EGD Procedure Note Signed Patient: Abram Guillaume MR#: [id number] 4 : 1965 Acct:[id number] Age/Sex: 58 / M Adm Date: 5 Loc: Room: Type: [facility] Attending Dr: James Elaine MD Copies to: MD Pepper Werner NP-C~ Esophagogastroduodenoscopy Date/Provider Date: 10/06/2024 James Elaine MD Procedure Findings: Procedure: EGD with biopsy Indication: 58-year-old man with history of esophagitis here for EGD to assess for Diana's Pre-operative diagnosis: History of esophagitis Post-operative diagnosis: Garrett-colored mucosa in the esophagus otherwise normal EGD [...] MD 10/06/24 0832 Signed By: 10/06/24 0834 [facility]01-14-2025 [place] [id number] Gastroenterology H&P Signed Patient: Abram Guillaume MR#: [id number] 4 : 1965 Acct:[id number] Age/Sex: 58 / M Adm Date: 5 Loc: Room: Type: [facility] Attending Dr: James Elaine MD Copies to: [...] James Elaine MD 10/06/24 0831 Signed By: 10/06/24 0832 [facility]01-06-2025 History of Present illness Narrative * Pepper [...] suggestions regarding this matter. documented in this encounterSaint [facility] [id number] [facility] History of Present illness Narrative* Pepper Sexton [...] scope with GI, has been off his PPI/E5ekarrqmd for up coming EGD etc Continue with [...] Pt needs a refill on the mag-ox days Abram Guillaume is a 58 y.o. male [...] scope with GI, has been off his PPI/O6dnfdwoig for up coming EGD etc Continue with GI Essential hypertension, benign (CMS/HCC) - Primary At goal no med dose chagnes Hypothyroidism (CMS/HCC) No med dose changes Hypomagnesemia Continue with TID magnesium and fu with Nephrology Relevant Medications magnesium oxide (Mag-Ox) 400 MG tablet Obesity (BMI 30-39.9) Needs flu shot declines documented in this encounterSaint Luke's HospitalJfuxqrerno03-11-6017 History of Present illness Narrative* Rupert Bo, DO - 06/30/2024 9:30 AM EDT Images from [...] Dr. Bo/lloyd Bo D.O. documented in this [facility]09-17-2024 Telephone encounter Note* Telephone Encounter - DEBI Cho - 06/09/2024 12:22 PM EDT Spoke with patient and he will RTW tomorrow with light duty [facility] Work Phone: [phone]) 770-325609-17-2024 Miscellaneous Notes* Telephone Encounter - DEBI Cho [...] questions, if you could call him at [phone] documented in this encounterSaint Luke's HospitalQthqxrxhlt74-17-3299 Telephone encounter Note* Telephone Encounter - DEBI Cho - 06/09/2024 12:16 PM EDT Spoke with patient and answered questions, he would like to RTW tomorrow with restrictions, spoke with Dr Bo and he said that was fine [facility] [id number] Telephone encounter Note* Telephone Encounter - Sarahmaverick Marshall - 06/09/2024 12:13 PM EDT Pt called and left vm stated he has PO questions, if you could call him at [phone] [facility] [id number] History of Present illness Narrative* Blank Mcfarlane [...] weeks, continue off work documented in this encounterN[facility] CenterLxrlrkgbza47-32-2128 Telephone encounter Note* Telephone Encounter - Tiburcio Noel NP - 05/26/2024 12:16 PM EDT Post op pain rx. PDMP reviewed [facility] HospitalVgwqspduft78-31-0233 Miscellaneous Notes* Telephone Encounter - Tiburcio Noel NP - 05/26/2024 12:16 PM EDT Post op pain rx. PDMP reviewed documented in this encounterSaint Luke's HospitalKmlbfzetfd17-13-0931 Instructions* Patient Instructions* Ora Delvalle RN - 04/27/2024 8:15 AM EDT Preoperative Education Checklist- General Surgery date: 05/27/24 Surgery time: 0730 a.m. Arrival time: 0610 a.m. 1. Bring a photo ID and your insurance card with you the day of surgery. You will check in at the main lobby of the [facility]- registration desk is straight ahead as soon as you walk in. Tell them you are here for surgery. 2. If you have a Living Will/Durable Power of Contract Administrator for Health Care that is not on file here, please bring a copy the day of surgery. 3. Please shower/bathe the night before surgery with the provided soap or wipes. Do not shower the morning of surgery- you will do use wipes when you arrive here at the hospital before getting into your surgical gown. Do not shave the area of your procedure for 2 days prior to your surgery. 4. NO powder, lotion, perfume/cologne, aftershave, make-up, deodorant, or hair products after you have bathed. 5. NO nail tajik/acrylic on at least one finger. If you are having a hand, wrist or foot surgery then all nail tajik and artificial/acrylic nails must be removed from that hand or foot. 6. Avoid ALL Aspirin and non-steroidal anti-inflammatory drugs and certain vitamins (Ibuprofen, Advil, Aleve, Excedrin, Meloxicam, Celebrex, fish/krill oil, etc.) for 7 days prior to surgery as instructed by your surgeon and/or your prescribing doctor. Tylenol IS ALLOWED. If you are on Ticlid, Xarelto, Eliquis, Pradaxa, Plavix or Coumadin, please check with your prescribing doctor for instructions for when to stop them. 7. If you use an inhaler, continue to use it routinely. 8. Nothing to eat or drink (not even water, gum, mints, or hard candy!) AFTER midnight prior to your surgery. 9. Take only medications that you are instructed to on the morning of surgery with a TINY SIP OF WATER. 10. Choose a responsible adult that will be able to drive you home when you are discharged from your hospital stay for your surgery and can stay with you in your home for 24 hours after your procedure. You must NOT drive any vehicle or operate any machinery for 24 hours after surgery. 11. When you dress for your appointment, please wear loose fitting clothing that is appropriate to accommodate your surgical area procedure. BRING WITH YOU ANY DEVICES YOU MAY NEED: BRITTANY hose, ice machine, sling/swath, brace or special shoe, oversized zip-up or button up shirt, CPAP machine if staying overnight. 12. Do NOT wear jewelry, watches, or any piercings or metal for surgery- leave these valuables and money at home. 13. Do NOT wear contact lenses for surgery- glasses are okay if needed. 14. The anesthesiologist will talk with you the day of surgery and will ask you to sign a Consent Form. 15. Refrain from smoking or any type of tobacco use for at least 8 hours and marijuana for 24 hoursprior to arrival for your surgery. 16. If a GREEN BLOOD band is given to you, please bring it with you for the day of surgery. 17. Notify your surgeon if you develop any illness before your surgery. 18. If you are staying overnight, please DO NOT BRING your home medications with you. 19. If you have any questions prior to surgery, please call the Preadmission Testing office at [phone], Mon.-Fri. 7 a.m.-3 p.m. Leave a voicemail if needed. Pre-Surgery Instructions: Medication Instructions albuterol (PROVENTIL HFA;VENTOLIN HFA) 90 mcg/actuation inhaler Take morning of procedure if needed budesonide-formoteroL (SYMBICORT) 80-4.5 mcg/actuation inhaler Take morning of procedure if needed doxepin (SINEquan) 10 mg capsule Stop taking 0 days prior to procedure famotidine (PEPCID) 20 mg tablet Take morning of procedure gabapentin (NEURONTIN) 300 mg capsule Stop taking 0 days prior to procedure ibuprofen (ADVIL,MOTRIN) 200 mg tablet Stop taking 14 days prior to procedure levothyroxine (SYNTHROID, LEVOTHROID) 25 MCG tablet Take morning of procedure magnesium oxide (MAGOX) 400 mg tablet Stop taking 0 days prior to procedure meloxicam (MOBIC) 15 mg tablet Stop taking 14 days prior to procedure montelukast (SINGULAIR) 10 mg tablet Stop taking 0 days prior to procedure nebivoloL (BYSTOLIC) 5 mg tablet Take morning of procedure valsartan (DIOVAN) 320 mg tablet Stop taking 0 days prior to procedure How to Avoid an Infection after Your Surgery Your doctor will give you specific instructions, but remember: -ALWAYS wash hands before caring for your incision. -No picking, scratching, or rubbing your incision. -No creams, lotion, powder, rubbing alcohol or hydrogen peroxide on the incision (can harm the tissue and slow healing). -Your doctor will give you specific instructions for what type of dressing you will need and how often it will need changed for infection purposes. -No tight clothing on incision. -Do not allow anyone to touch your incision unless they are cleaning, checking, or redressing it (be sure they wash their hands first). -No contact of your incision with pets; avoid sleeping with pets. -Take full course of antibiotic if prescribed for you after surgery- do not stop unless directed lissette your physician. You may also be given an antibiotic prior to your surgery to help prevent surgical site infections. -Eat a healthy and varied diet including proteins, fruits, and vegetables to help promote wound healing and keep blood sugars under control if you are diabetic. -Smoking slows the healing process by decreasing the amount of oxygen in your blood that is needed for tissue healing. Try to avoid or stop smoking if possible. LOOK at your incision each morning and each night to check the progress of healing. Some soreness, numbness, itching and/or mild bruising around the incision is normal. Call your doctor if you noticeany of the following: -Increased redness or hardening around the incision area. -Increased pain at the incision site. -Incision feels hot to the touch. -Swelling or pulling apart of the incision edges. -Yellow or green drainage or foul odor coming from the incision. -Bleeding from the incision (apply pressure as needed). -Fever higher than 101 degrees Fahrenheit for more than 4 hours. SHOWERING: Your doctor will give you specific instructions, but remember: -Be careful getting into and out of the shower. -Showers should be quick (5 minutes or less). -Use a clean washcloth to gently wash your incision with soap and water and pat the area dry with aclean towel. -No re-using wash cloths or towels; get a fresh one to clean your incision. -Do not soak in the bathtub, go swimming or use a hot tub (Jacuzzi), or perform activities where your hand or arm are submerged in water or exposed to any fluids or substances (washing dishes, cooking, gardening, hunting, etc.) until instructed by your doctor. -If your have the sticky strips (steri-strips) over the incision, it is OK to shower with them. Do not remove them. Let them fall off on their own. If you have a question, call your doctor s office. Go to the follow-up appointment with your doctor. [facility] Miscellaneous Notes* Perioperative Nursing Note - Ora Delvalle RN - 04/27/2024 8:15 AM EDT Preoperative Education Checklist- General Surgery date: 05/27/24 Surgery time: 0730 a.m. Arrival time: 0610 a.m. 1. Bring a photo ID and your insurance card with you the day of surgery. You will check in at the main lobby of the [facility]- registration desk is straight ahead as soon as you walk in. Tell them you are here for surgery. 2. If you have a Living Will/Durable Power of Contract Administrator for Health Care that is not on file here, please bring a copy the day of surgery. 3. Please shower/bathe the night before surgery with the provided soap or wipes. Do not shower the morning of surgery- you will do use wipes when you arrive here at the hospital before getting into your surgical gown. Do not shave the area of your procedure for 2 days prior to your surgery. 4. NO powder, lotion, perfume/cologne, aftershave, make-up, deodorant, or hair products after you have bathed. 5. NO nail tajik/acrylic on at least one finger. If you are having a hand, wrist or foot surgery then all nail tajik and artificial/acrylic nails must be removed from that hand or foot. 6. Avoid ALL Aspirin and non-steroidal anti-inflammatory drugs and certain vitamins (Ibuprofen, Advil, Aleve, Excedrin, Meloxicam, Celebrex, fish/krill oil, etc.) for 7 days prior to surgery as instructed by your surgeon and/or your prescribing doctor. Tylenol IS ALLOWED. If you are on Ticlid, Xarelto, Eliquis, Pradaxa, Plavix or Coumadin, please check with your prescribing doctor for instructions for when to stop them. 7. If you use an inhaler, continue to use it routinely. 8. Nothing to eat or drink (not even water, gum, mints, or hard candy!) AFTER midnight prior to your surgery. 9. Take only medications that you are instructed to on the morning of surgery with a TINY SIP OF WATER. 10. Choose a responsible adult that will be able to drive you home when you are discharged from your hospital stay for your surgery and can stay with you in your home for 24 hours after your procedure. You must NOT drive any vehicle or operate any machinery for 24 hours after surgery. 11. When you dress for your appointment, please wear loose fitting clothing that is appropriate to accommodate your surgical area procedure. BRING WITH YOU ANY DEVICES YOU MAY NEED: BRITTANY hose, ice machine, sling/swath, brace or special shoe, oversized zip-up or button up shirt, CPAP machine if staying overnight. 12. Do NOT wear jewelry, watches, or any piercings or metal for surgery- leave these valuables and money at home. 13. Do NOT wear contact lenses for surgery- glasses are okay if needed. 14. The anesthesiologist will talk with you the day of surgery and will ask you to sign a Consent Form. 15. Refrain from smoking or any type of tobacco use for at least 8 hours and marijuana for 24 hoursprior to arrival for your surgery. 16. If a GREEN BLOOD band is given to you, please bring it with you for the day of surgery. 17. Notify your surgeon if you develop any illness before your surgery. 18. If you are staying overnight, please DO NOT BRING your home medications with you. 19. If you have any questions prior to surgery, please call the Preadmission Testing office at [phone], Mon.-Fri. 7 a.m.-3 p.m. Leave a voicemail if needed. Pre-Surgery Instructions: Medication Instructions albuterol (PROVENTIL HFA;VENTOLIN HFA) 90 mcg/actuation inhaler Take morning of procedure if needed budesonide-formoteroL (SYMBICORT) 80-4.5 mcg/actuation inhaler Take morning of procedure if needed doxepin (SINEquan) 10 mg capsule Stop taking 0 days prior to procedure famotidine (PEPCID) 20 mg tablet Take morning of procedure gabapentin (NEURONTIN) 300 mg capsule Stop taking 0 days prior to procedure ibuprofen (ADVIL,MOTRIN) 200 mg tablet Stop taking 14 days prior to procedure levothyroxine (SYNTHROID, LEVOTHROID) 25 MCG tablet Take morning of procedure magnesium oxide (MAGOX) 400 mg tablet Stop taking 0 days prior to procedure meloxicam (MOBIC) 15 mg tablet Stop taking 14 days prior to procedure montelukast (SINGULAIR) 10 mg tablet Stop taking 0 days prior to procedure nebivoloL (BYSTOLIC) 5 mg tablet Take morning of procedure valsartan (DIOVAN) 320 mg tablet Stop taking 0 days prior to procedure How to Avoid an Infection after Your Surgery Your doctor will give you specific instructions, but remember: -ALWAYS wash hands before caring for your incision. -No picking, scratching, or rubbing your incision. -No creams, lotion, powder, rubbing alcohol or hydrogen peroxide on the incision (can harm the tissue and slow healing). -Your doctor will give you specific instructions for what type of dressing you will need and how often it will need changed for infection purposes. -No tight clothing on incision. -Do not allow anyone to touch your incision unless they are cleaning, checking, or redressing it (be sure they wash their hands first). -No contact of your incision with pets; avoid sleeping with pets. -Take full course of antibiotic if prescribed for you after surgery- do not stop unless directed lissette your physician. You may also be given an antibiotic prior to your surgery to help prevent surgical site infections. -Eat a healthy and varied diet including proteins, fruits, and vegetables to help promote wound healing and keep blood sugars under control if you are diabetic. -Smoking slows the healing process by decreasing the amount of oxygen in your blood that is needed for tissue healing. Try to avoid or stop smoking if possible. LOOK at your incision each morning and each night to check the progress of healing. Some soreness, numbness, itching and/or mild bruising around the incision is normal. Call your doctor if you noticeany of the following: -Increased redness or hardening around the incision area. -Increased pain at the incision site. -Incision feels hot to the touch. -Swelling or pulling apart of the incision edges. -Yellow or green drainage or foul odor coming from the incision. -Bleeding from the incision (apply pressure as needed). -Fever higher than 101 degrees Fahrenheit for more than 4 hours. SHOWERING: Your doctor will give you specific instructions, but remember: -Be careful getting into and out of the shower. -Showers should be quick (5 minutes or less). -Use a clean washcloth to gently wash your incision with soap and water and pat the area dry with aclean towel. -No re-using wash cloths or towels; get a fresh one to clean your incision. -Do not soak in the bathtub, go swimming or use a hot tub (Jacuzzi), or perform activities where your hand or arm are submerged in water or exposed to any fluids or substances (washing dishes, cooking, gardening, hunting, etc.) until instructed by your doctor. -If your have the sticky strips (steri-strips) over the incision, it is OK to shower with them. Do not remove them. Let them fall off on their own. If you have a question, call your doctor s office. Go to the follow-up appointment with your doctor. * Perioperative Nursing Note - Ora Delvalle RN - 04/27/2024 8:15 AM EDT Hibiclens and surgical instructions reviewed. Patient verbalized understanding. documented in this [facility]Tr[facility]-2024 Nurse Note* Perioperative Nursing Note - Ora Delvalle RN - 04/27/2024 8:15 AM EDT Preoperative Education Checklist- General Surgery date: 05/27/24 Surgery time: 0730 a.m. Arrival time: 0610 a.m. 1. Bring a photo ID and your insurance card with you the day of surgery. You will check in at the main lobby of the [facility]- registration desk is straight ahead as soon as you walk in. Tell them you are here for surgery. 2. If you have a Living Will/Durable Power of Contract Administrator for Health Care that is not on file here, please bring a copy the day of surgery. 3. Please shower/bathe the night before surgery with the provided soap or wipes. Do not shower the morning of surgery- you will do use wipes when you arrive here at the hospital before getting into your surgical gown. Do not shave the area of your procedure for 2 days prior to your surgery. 4. NO powder, lotion, perfume/cologne, aftershave, make-up, deodorant, or hair products after you have bathed. 5. NO nail tajik/acrylic on at least one finger. If you are having a hand, wrist or foot surgery then all nail tajik and artificial/acrylic nails must be removed from that hand or foot. 6. Avoid ALL Aspirin and non-steroidal anti-inflammatory drugs and certain vitamins (Ibuprofen, Advil, Aleve, Excedrin, Meloxicam, Celebrex, fish/krill oil, etc.) for 7 days prior to surgery as instructed by your surgeon and/or your prescribing doctor. Tylenol IS ALLOWED. If you are on Ticlid, Xarelto, Eliquis, Pradaxa, Plavix or Coumadin, please check with your prescribing doctor for instructions for when to stop them. 7. If you use an inhaler, continue to use it routinely. 8. Nothing to eat or drink (not even water, gum, mints, or hard candy!) AFTER midnight prior to your surgery. 9. Take only medications that you are instructed to on the morning of surgery with a TINY SIP OF WATER. 10. Choose a responsible adult that will be able to drive you home when you are discharged from your hospital stay for your surgery and can stay with you in your home for 24 hours after your procedure. You must NOT drive any vehicle or operate any machinery for 24 hours after surgery. 11. When you dress for your appointment, please wear loose fitting clothing that is appropriate to accommodate your surgical area procedure. BRING WITH YOU ANY DEVICES YOU MAY NEED: BRITTANY hose, ice machine, sling/swath, brace or special shoe, oversized zip-up or button up shirt, CPAP machine if staying overnight. 12. Do NOT wear jewelry, watches, or any piercings or metal for surgery- leave these valuables and money at home. 13. Do NOT wear contact lenses for surgery- glasses are okay if needed. 14. The anesthesiologist will talk with you the day of surgery and will ask you to sign a Consent Form. 15. Refrain from smoking or any type of tobacco use for at least 8 hours and marijuana for 24 hoursprior to arrival for your surgery. 16. If a GREEN BLOOD band is given to you, please bring it with you for the day of surgery. 17. Notify your surgeon if you develop any illness before your surgery. 18. If you are staying overnight, please DO NOT BRING your home medications with you. 19. If you have any questions prior to surgery, please call the Preadmission Testing office at [phone], Mon.-Fri. 7 a.m.-3 p.m. Leave a voicemail if needed. Pre-Surgery Instructions: Medication Instructions albuterol (PROVENTIL HFA;VENTOLIN HFA) 90 mcg/actuation inhaler Take morning of procedure if needed budesonide-formoteroL (SYMBICORT) 80-4.5 mcg/actuation inhaler Take morning of procedure if needed doxepin (SINEquan) 10 mg capsule Stop taking 0 days prior to procedure famotidine (PEPCID) 20 mg tablet Take morning of procedure gabapentin (NEURONTIN) 300 mg capsule Stop taking 0 days prior to procedure ibuprofen (ADVIL,MOTRIN) 200 mg tablet Stop taking 14 days prior to procedure levothyroxine (SYNTHROID, LEVOTHROID) 25 MCG tablet Take morning of procedure magnesium oxide (MAGOX) 400 mg tablet Stop taking 0 days prior to procedure meloxicam (MOBIC) 15 mg tablet Stop taking 14 days prior to procedure montelukast (SINGULAIR) 10 mg tablet Stop taking 0 days prior to procedure nebivoloL (BYSTOLIC) 5 mg tablet Take morning of procedure valsartan (DIOVAN) 320 mg tablet Stop taking 0 days prior to procedure How to Avoid an Infection after Your Surgery Your doctor will give you specific instructions, but remember: -ALWAYS wash hands before caring for your incision. -No picking, scratching, or rubbing your incision. -No creams, lotion, powder, rubbing alcohol or hydrogen peroxide on the incision (can harm the tissue and slow healing). -Your doctor will give you specific instructions for what type of dressing you will need and how often it will need changed for infection purposes. -No tight clothing on incision. -Do not allow anyone to touch your incision unless they are cleaning, checking, or redressing it (be sure they wash their hands first). -No contact of your incision with pets; avoid sleeping with pets. -Take full course of antibiotic if prescribed for you after surgery- do not stop unless directed lissette your physician. You may also be given an antibiotic prior to your surgery to help prevent surgical site infections. -Eat a healthy and varied diet including proteins, fruits, and vegetables to help promote wound healing and keep blood sugars under control if you are diabetic. -Smoking slows the healing process by decreasing the amount of oxygen in your blood that is needed for tissue healing. Try to avoid or stop smoking if possible. LOOK at your incision each morning and each night to check the progress of healing. Some soreness, numbness, itching and/or mild bruising around the incision is normal. Call your doctor if you noticeany of the following: -Increased redness or hardening around the incision area. -Increased pain at the incision site. -Incision feels hot to the touch. -Swelling or pulling apart of the incision edges. -Yellow or green drainage or foul odor coming from the incision. -Bleeding from the incision (apply pressure as needed). -Fever higher than 101 degrees Fahrenheit for more than 4 hours. SHOWERING: Your doctor will give you specific instructions, but remember: -Be careful getting into and out of the shower. -Showers should be quick (5 minutes or less). -Use a clean washcloth to gently wash your incision with soap and water and pat the area dry with aclean towel. -No re-using wash cloths or towels; get a fresh one to clean your incision. -Do not soak in the bathtub, go swimming or use a hot tub (Jacuzzi), or perform activities where your hand or arm are submerged in water or exposed to any fluids or substances (washing dishes, cooking, gardening, hunting, etc.) until instructed by your doctor. -If your have the sticky strips (steri-strips) over the incision, it is OK to shower with them. Do not remove them. Let them fall off on their own. If you have a question, call your doctor s office. Go to the follow-up appointment with your doctor. [facility]08-05-2024 Nurse Note* Perioperative Nursing Note - Ora Delvalle RN - 04/27/2024 8:15 AM EDT Hibiclens and surgical instructions reviewed. Patient verbalized understanding. [facility] Diagnosis Onset Date Resolution Status GERD (gastroesophageal reflux disease) acute Hypomagnesemia acute Primary hypertension [facility] Work Phone: Evaluation note* Diagnosis Onset Date Resolution Status GERD (gastroesophageal reflux disease) acute Hypomagnesemia acute Primary hypertension acute Dyspepsia acute GERD (gastroesophageal reflux disease) [facility] Work Phone: Evaluation note* Diagnosis Restless legs syndrome Restless legs syndrome (RLS) documented in this encounter [facility] Healthcare[facility]* Diagnosis Cubital tunnel syndrome on right- Primary [facility] [...] inoculation against influenza documented in [facility]* Diagnosis Hypomagnesemia Disorders of magnesium [...] of magnesium metabolism documented in this encounter [facility] HealthcareEvaluation note* Diagnosis Essential hypertension, benign [...] benign Hypothyroidism, unspecified type (CMS/HCC) Mixed hyperlipidemia ([facility]/HCC) Mixed hyperlipidemia Hypomagnesemia Disorders of magnesium metabolism Obesity (BMI 30-39.9) Hypomagnesemia- Primary Disorders of magnesium metabolism Fibromyalgia Unspecified myalgia and myositis Atopic dermatitis, unspecified type Gastroesophageal reflux disease, unspecified whether esophagitis present Obesity (BMI 30-39.9) Essential hypertension, benign (CMS/HCC) Essential hypertension, benign Essential (primary) hypertension ([facility]/HCC)- Primary Unspecified essential hypertension Morbid (severe) obesity due to excess calories ([facility]) Body mass index (BMI) 38.0-38.9, adult Obesity (BMI 30-39.9) Cigarette nicotine dependence without complication Gastroesophageal reflux disease, unspecified whether esophagitis present Hypomagnesemia Disorders of magnesium metabolism Pre-operative clearance- Primary Unspecified pre-operative examination Hypomagnesemia Disorders of magnesium metabolism Restless legs syndrome Restless legs syndrome (RLS) COPD with acute exacerbation ([facility]/HCC) Chronic bronchitis, unspecified chronic bronchitis type (CMS/HCC) [...] of magnesium metabolism documented in this encounter [facility] HealthcareEvaluation note* Diagnosis Essential hypertension, benign [...] (CMS/HCC) Essential hypertension, benign Essential (primary) hypertension ([facility]/HCC)- Primary Unspecified essential hypertension Morbid (severe) [...] myalgia and myositis documented in this encounter [facility] HealthcareEvaluation note* Diagnosis Essential hypertension, benign [...] (CMS/HCC) Essential hypertension, benign Essential (primary) hypertension ([facility]/HCC)- Primary Unspecified essential hypertension Morbid (severe) obesity due to excess calories ([facility]/HCC) Body mass index (BMI) 38.0-38.9, adult Obesity [...] of magnesium metabolism documented in this encounter [facility]: [facility]* Diagnosis [...] bronchitis type (CMS/HCC) documented in [facility] encounter [facility]* [...] Morbid (severe) obesity due to excess calories ([facility]/HCC) Body mass index (BMI) 38.0-38.9, adult Obesity (BMI 30-39.9) Cigarette nicotine dependence without complication Gastroesophageal reflux disease, unspecified whether esophagitis present Hypomagnesemia Disorders of magnesium metabolism Pre-operative clearance- Primary Unspecified pre-operative examination Hypomagnesemia Disorders of magnesium metabolism Restless legs syndrome Restless legs syndrome (RLS) COPD with acute exacerbation ([facility]/HCC) Chronic bronchitis, unspecified chronic bronchitis type (CMS/HCC) Essential hypertension, benign (CMS/HCC) Essential hypertension, benign Gastroesophageal reflux disease, unspecified whether esophagitis present GURVINDER (obstructive sleep apnea) Obstructive sleep apnea (adult) (pediatric) Pulmonary hypertension ([facility]/HCC) Other chronic pulmonary heart diseases LV dysfunction [...] Morbid (severe) obesity due to excess calories ([facility]/HCC) Gastro-esophageal reflux disease without esophagitis Body mass [...] syndrome (RLS) documented in [facility] encounter [facility]* Diagnosis Preop examination- Primary Unspecified pre-operative examination Hypertension, unspecified type [facility] Author James Elaine [facility] July 09, 2024 1:12pm Note Date/Time July 09, 2024 1 :12pm [facility] [address] [place] [address] Gastroenterology H&P Signed Patient: Abram Guillaume MR#: [id number] 4 : 1965 Acct:[id number] Age/Sex: 58 / M Adm Date: 4 Loc: Room: Type: [facility] Attending Dr: James Elaine MD Copies to: MD Pepper Werner [employer]ARD WORKER-C~ Date of Service: 07/09/2024 HISTORY & PHYSICAL: [...] signed by James Elaine MD> 07/09/24 1312 [facility] Work Phone: Hospital Discharge instructions Additional Instructions [...] NOT operate machinery such as power tools, cashcloudn mowers, snow blowers, sewing machines, etc. for [...] -Continue omeprazole 40 mg daily -Office number [phone]. [facility] Work Phone: Summary Purpose Family History Relationship Condition Age at Onset Recorded Date/T valerie Not Specified No pertinent family history Unknown Advance Directives Advance Directive Response Recorded Date/ Time Advance Directives No March 18 2:19pm Advance Directive Response Recorded Date/ Time Advance Directives No March 18 1:19pm Date Activated Date Inactivated Comments 12/16/2021 11:22 AM 12/16/2021 5:00 PM Chief Complaint and Reason for Visit Chief [...] Esophageal ulcer, gastritis October 06, 2024 8:31am Reason for Referral Specialty Diagnoses / Procedures Referred By Kira ybarra Referred To Contact Diagnoses Preop examination Hypertension, unspecified type Procedures ECG 12 lead Rupert Bo DO [address] [facility] [address] [place] [address] Referral ID Status Reason Start Date Expiration Date V isits Requested Visits Authorized [id number] Pending Review 04/23/2024 04/23/2025 1 1 Additional Source Comments (unrecognized sect ion and content) No Status Records FoundNo Status Records FoundNo Status Records FoundNo Status Records FoundNo Status Records Found INFORMATION SOURCE (unrecogn ized section and content) DATE CREATED AUTHOR 05/18/2022 [facility] DATE CREATED AUTHOR AUTHOR'S ORGANIZ ATION 07/22/2022 [facility] DATE CREATED AUTHOR AUTHOR'S ORGANIZ ATION 05/28/[address] [facility] DATE CREATED AUTHOR AUTHOR'S ORGANIZ ATION 10/10/2024 [facility] EPIC DATE CREATED AUTHOR AUTHOR'S ORGANIZ ATION 10/16/2024 [facility] Care Teams (unrecognized sec tion [...] June 23, 2024 End: June 23, 2024 School Aide Relationship Specialty Start Date End Date Anastacio Hinojosa MD [address] [place] [phone] PCP - General Family Medicine 11/26/23 Pepper Sexton NP [address] [place] [address] [facility] 04/[facility] Pepper Sexton NP [address] [place] [address] Nurse Practitioner Family Medicine 11/26/23 Team Status: Inactive Member Role Status Dates Pepper Sexton Primary Care Provider Active Sta rt: June 24, 2024 End: June 24, 2024 Dav Swanson APRN Attending Provider Active Start: June 24, 2024 End: June 24, 2024 School Aide Relationship Specialty Start Date End Date Anastacio Hinojosa MD [address] [place] [phone] PCP - General Family Medicine 11/26/23 Pepper Sexton NP [address] [place] [address] PCP - [facility] 04/23/24 Pepper Sexton NP [address] [place] [address] Nurse Practitioner Family Medicine 11/26/23 School Aide Relationship Specialty Start Date End Date Anastacio Hinojosa MD [address] [place] [phone] PCP - General Family Medicine 11/26/23 Pepper Sexton NP [address] [place] [address] PCP - [facility] [employer] 04/23/24 Pepper Sexton NP [address] [place] [address] Nurse Practitioner Family Medicine 11/26/23 School Aide Relationship Specialty Start Date End Date Anastacio Hinojosa MD [address] [place] [address] PCP - General Family Medicine 11/26/23 Pepper Sexton NP [address] [place] [address] PCP - [facility] [employer] 04/23/24 Pepper Sexton NP [address] [place] [address] Nurse Practitioner Family Medicine 11/26/23 School Aide Relationship Specialty Start Date End Date Anastacio Hinojosa MD [address] [place] [phone] PCP - General Family Medicine 11/26/23 Pepper Sexton NP [address] [place] [address] PCP - [facility] [employer] 04/23/24 Pepper Sexton NP [address] [place] [address] Nurse Practitioner Family Medicine 11/26/23 School Aide Relationship Specialty Start Date End Date Anastacio Hinojosa MD [address] [place] [address] PCP - General Family Medicine 11/26/23 Pepper Sexton NP [address] [place] [address] PCP - [facility] [employer] 04/23/24 Pepper Sexton NP [address] [place] [address] Nurse Practitioner Family Medicine 11/26/23 Team Status: [...] Other Provider Active Start: July 09, 2024 School Aide Relationship Specialty Start Date End Date Anastacio Hinojosa MD [address] [place] [address] PCP - General Family Medicine 11/26/23 Pepper Sexton NP [address] [place] [address] PCP - [facility] [employer] 04/23/24 Pepper Sexton NP [address] [place] [address] Nurse Practitioner Family Medicine 11/26/23 School Aide Relationship Specialty Start Date End Date Anastacio Hinojosa MD [address] [place] [address] PCP - General Family Medicine 11/26/23 Pepper Sexton NP [address] [place] [address] PCP - [facility] 04/23/24 Pepper Sexton NP [address] [place] [address] Nurse Practitioner Family Medicine 11/26/23 School Aide Relationship Specialty Start Date End Date Anastacio Hinojosa MD [address] [place] [phone] PCP - General Family Medicine 11/26/23 Pepper Sexton NP [address] [place] [address] PCP - [facility] [employer] 04/23/24 Pepper Sexton NP [address] [place] [address] Nurse Practitioner Family Medicine 11/26/23 School Aide Relationship Specialty Start Date End Date Anastacio Hinojosa MD [address] [place] [address] PCP - General Family Medicine 11/26/23 Pepper Sexton NP [address] [place] [address] Nurse Practitioner Family Medicine 11/26/23 School Aide Relationship Specialty Start Date End Date Anastacio Hinojosa MD [address] [place] [address] PCP - General Family Medicine 11/26/23 Pepper Sexton NP [address] [place] [address] PCP - [facility] [employer] 04/23/24 Pepper Sexton NP [address] [place] [address] Nurse Practitioner Family Medicine 11/26/23 School Aide Relationship Specialty Start Date End Date Anastacio Hinojosa MD [address] [place] [address] PCP - General Family Medicine 11/26/23 Pepper Sexton NP [address] [place] [address] PCP - [facility] [employer] 04/23/24 Pepper Sexton NP [address] [place] [address] Nurse Practitioner [facility] Medicine 11/26/23 Team Status: Inactive Member Role Status Dates Pepper Sexton Primary Care Provider Active Sta rt: October 06, 2024 End: October 06, 2024 James Elaine MD Attending Provider Active Start: October 06, 2024 End: October 06, 2024 Team Status: Active Member Role Status Dates Pepper Sexton Primary Care Provider Active Sta rt: October 06, 2024 James Elaine MD Attending Provider, Other Provider Active Start: October 06, 2024 School Aide Relationship Specialty Start Date End Date Anastacio Hinojosa MD [address] [place] [address] PCP - General Family Medicine 11/26/23 Pepper Sexton NP [address] [place] [address] PCP - [facility] [employer] 04/23/24 Pepper Sexton NP [address] [place] [address] Nurse Practitioner Family Medicine 11/26/23 School Aide Relationship Specialty Start Date End Date Anastacio Hinojosa MD [address] [place] [address] PCP - General Family Medicine 11/26/23 Pepper Sexton NP [address] [place] [address] PCP - [facility] [employer] 04/23/24 Pepper Sextno NP [address] [place] [address] Nurse Practitioner Family Medicine 11/26/23 School Aide Relationship Specialty Start Date End Date Anastacio Hinojosa MD [address] [place] [address] PCP - General Family Medicine 11/26/23 Pepper Sexton NP [address] [place] [address] PCP - [facility] [employer] 04/23/24 Pepper Sexton NP [address] [place] [address] Nurse Practitioner Family Medicine 11/26/23 School Aide Relationship Specialty Start Date End Date Anastacio Hinojosa MD [address] [place] [address] PCP - General Family Medicine 11/26/23 Pepper Sexton NP [address] [place] [address] PCP - [facility] [employer] 04/23/24 Pepper Sexton NP [address] [place] [address] Nurse Practitioner Family Medicine 11/26/23 School Aide Relationship Specialty Start Date End Date Anastacio Hinojosa MD [address] [place] [address] PCP - General Family Medicine 11/26/23 Pepper Sexton NP [address] [place] [address] PCP - [employer] 04/23/24 Pepper Sexton NP [address] [place] [address] Nurse Practitioner Family Medicine 11/26/23 School Aide Relationship Specialty Start Date End Date Anastacio Hinojosa MD [address] [place] [address] PCP - General Family Medicine 11/26/23 Pepper Sexton NP [address] [place] [address] PCP - [employer] 04/23/24 Pepper Sexton NP [address] [place] [address] Nurse Practitioner Family Medicine 11/26/23 School Aide Relationship Specialty Start Date End Date JavierPepper rios, GUARD MANAGER-RADIOLOGY TECH [address] [place] [address] PCP - General Nurse Practitioner 05/10/22 Goals (unrecognized section and content) Goals may be documented in a n alternate sectionGoals may be documented in an alternate sectionGoals may be documented in an alternate sectionNot on filedocumented as of this encounter Reason for Visit (unrecogniz ed section and [...] BE BASED ON THE PRIMARY CLINICAL RECORDS. [facility]. provides no warranty or guarantee of the accuracy or completeness of information in this document.
[2024-11-24 13:06] LABS: Magnesium 1.1 mg/dL (1.8-2.4)
== END 2024-11-24 12:32 | disposition home or self-care (01) ==
LOC: LAB 12:34
PROVIDERS: PCP Nurse Practitioner; Visit Provider Internal Medicine Nephrology
DX: E83.42 Hypomagnesemia (principal)
CPT/HCPCS: 36415; 83735

== ENCOUNTER 2024-11-26 09:52 | Outpatient (OUT) | payer BC, SELFPAY ==
--- OUTSIDE RECORDS SUMMARY | 2024-11-26 10:08 | XMS_ITS | CCD ---
Author Organization [facility] Care Team Providers Care Warm In Worker Name Role Phone AICHHOLZ, STAFF RN PEPPER Primary Care Unavailable AICHHOLZ, STAFF RN PEPPER Consulting Unavailable AICHHOLZ, STAFF RN PEPPER Attending Unavailable AICHHOLZ, STAFF RN PEPPER Admitting Unavailable AICHHOLZ, STAFF RN PEPPER Consulting Unavailable AICHHOLZ, STAFF RN PEPPER Attending Unavailable AICHHOLZ, STAFF RN PEPPER Admitting Unavailable AICHHOLZ, STAFF RN PEPPER Primary Care Unavailable AICHHOLZ, STAFF RN PEPPER Primary Care Unavailable DR CRIS GAN V Consulting Unavailable AICHHOLZ, STAFF RN PEPPER Attending Unavailable AICHHOLZ, STAFF RN PEPPER Admitting Unavailable AICHHOLZ, STAFF RN PEPPER Consulting Unavailable AICHHOLZ, STAFF RN PEPPER Primary Care Unavailable AICHHOLZ, STAFF RN PEPPER Consulting Unavailable AICHHOLZ, STAFF RN PEPPER Attending Unavailable AICHHOLZ, STAFF RN PEPPER Admitting Unavailable AICHHOLZ, STAFF RN PEPPER Primary Care Unavailable AICHHOLZ, STAFF RN PEPPER Consulting Unavailable AICHHOLZ, STAFF RN PEPPER Attending Unavailable AICHHOLZ, STAFF RN PEPPER Admitting Unavailable AICHHOLZ, PEPPER J Referring [...] Unavailable Ashish CARTAGENA, Anastacio Primary Care Provider [phone] Aichholz PUPIL PERSONNEL SERVICES DIRECTOR, Pepper Unavailable Aichholz PUPIL PERSONNEL SERVICES DIRECTOR, Pepper Unavailable Aichholz, Pepper J Primary Care Provider [phone] MD James Elaine Attending Provider Pepper Sexton Primary Care Provider [phone] James Elaine MD Attending Provider [phone] PEPPER SEXTON Attending Unavailable AGUSTIN STOKES Attending Unavailable KARUNA CARRANZA Referring Unavailable LOWMichelle, KARUNA Attending Unavailable AICHHOLEulalio, PEPPER Attending Unavailable APLING, BLANK Langston Attending Unavailable LOWMichelle, KARUNA Referring Unavailable BETZY, RUPERT Lyn Attending Unavailable AICHHOLEulalio, PEPPER Attending Unavailable AICHHOLEulalio, PEPPER Attending Unavailable BETZY, RUPERT Lyn Attending Unavailable JAVIERHJEMAL, PEPPER Attending Unavailable JAVIERHHOLEulalio, PEPPER Referring Unavailable APLSARAH, BLANK Langston Attending Unavailable BETZY, RUPERT Lyn Attending Unavailable AICHHOLEulalio, PEPPER Attending [...] every six hours for pain HYDROcodone-aceta minophen ([place]) 5-325 MG tablet Indications: Post-operative pain Take 1 tablet by mouth every 6 (six) hours if needed for severe pain for up to 3 days 12 tablet 05/26/2024 05/29/2024 Active [id number] 200 actuat albuterol 0.09 mg/actuat metered dose [...] Do not swallow.. 10.2 g 5 10/07/2024 Active Start: 03-19-2024 End: 06-23-2024 take 1 [...] Start: 03-19-2024 take 1 capsule by mo uth once daily at bedtime Doxepin 100 mg [...] 02/02/2025 Active take 1 capsule by mo ut in the morning, then take 1 capsule [...] 10/08/2024 Discontinued take 4 tablets by mo [facility] in the morning levothyroxine (SYNTHROID, LEVOTHROID) 25 [...] 1 tablet by mouth in the mo [facility] nebivoloL (BYSTOLIC) 5 mg tablet Take [...] 09, 2024 12:23pm take 1 capsule by [facility] in the morning omeprazole (PriLOSEC) 40 [...] Chronic Other nutritional; endocrine; and metabolic disorders (10 sources) Obesity caused by energy imbalance; Translations: [...] Onset: 12-25-2021 Episodic Gastroduodenal ulcer (except hemorrhage) (14 sources) Acute gastric ulcer without hemorrhage AND [...] Value Interpretation Reference [facility] Facility ALL MAGNESIUMon 11-24-2024 Interpretation and review of laboratory results Abnormal [facility] Magnesium [Mass/Vol] 1.1 mg/dL Low 1.8 - 2 .4 mg/dL [facility] ALL MAGNESIUMon 11-05-2024 Interpretation and review of laboratory results Abnormal [facility] Magnesium [Mass/Vol] 0.7 mg/dL Critically low 1.8 - 2.4 mg/dL [facility] Comment on above: RESULTS CALLED TO EZEQUIEL BOOTH MA AT OFFICE BY Violeta Gold at [address] [facility] ALL MAGNESIUMon 10-07-2024 Interpretation and review of laboratory results Abnormal [facility] Magnesium [Mass/Vol] 0.8 mg/dL Critically low 1.8 - 2.4 mg/dL [facility] Comment on above: RESULTS CALLED TO [facility] THYROID STIM HORMONEon 0 10-07-2024 TSH Qn 2.054 m[IU]/L [facility] HbA1c (Bld) [Mass fraction]o n 10-07-2024 Interpretation and review of laboratory results Normal [facility] - Hematology and Cell countson 10-07-2024 HbA1c (Bld) [Mass fraction] 5.60 % [facility] No Panel Informationon 10-07 [facility] Amphetamine Screen Ql (U)Ord ered By: James Elaine on 10-06-2024 Amphetamines Ql (U) Amphetamines screen Negativ e [facility] Barbiturates [Presence] in U rine by Screen methodOrdered By: James Elaine on 10-06-2024 Barbiturates Screen Ql (U) Barbiturates [Presence] in Urine by Screen method Negative [facility] Benzodiazepines Screen Ql (U )Ordered By: James Elaine on 10-06-2024 Benzodiazepines Ql (U) Benzodiazepines [Presence] in Urine by Screen method Negative [facility] Benzoylecgonine [Presence] i n Urine by Screen methodOrdered By: James Elaine on 10-06-2024 Benzoylecgonine Screen Ql (U) Benzoylecgonine [Presence] in Urine by Screen method Negative [facility] Cannabinoids [Presence] in U rine by Screen methodOrdered By: James Elaine on 10-06-2024 Cannabinoids Screen Ql (U) Cannabinoids [Presence] in Urine by Screen method High Negative [facility] Comment on above: These are unconfirme d results and should not be used for legal purposes. Drug Cut-Off Concentration: AMPH 1000 ng/mL MAX 200 ng/mL JUHI 200 ng/mL COCM 300 ng/mL OP 300 ng/mL PCP 25 ng/mL THC 20 ng/mL Drug Screen,Urineon 10-06-19 Amphetamine Screen,Urine Negative Normal Negative [facility] Comment on above: Performed By: #### U RDS #### [facility] [address] [place] [address] [place] Barbiturate Screen,Urine Negative Normal Negative [facility] Comment on above: Performed By: #### U RDS #### [facility] [address] [place] [id number] [place] Benzodiazepines Screen,Urine Negative Normal Negative [facility] Comment on above: Performed By: #### U RDS #### [facility] [address] [place] [address] [place] Cannabinoid Screen,Urine Positive High Negative [facility] Comment on above: Result Comment: Thes e are unconfirmed results and should not be used for legal purposes. Drug Cut-Off Concentration: AMPH 1000 ng/mL MAX 200 ng/mL JUHI 200 ng/mL COCM 300 ng/mL OP 300 ng/mL PCP 25 ng/mL THC 20 ng/mL PERFORMED BY: [place] [address] PATHOLOGIST TEST CENTER MANAGER JAN GRIMES M.D. Performed By: #### U RDS #### [address] Cocaine Screen,Urine Negative Normal Negative [facility] Comment on above: Performed By: #### U RDS #### [address] Opiate Screen,Urine Negative Normal Negative [facility] Comment on above: Performed By: #### U RDS #### [address] Phencyclidine Screen,Urine Negative Normal Negative [facility] Comment on above: Performed By: #### U RDS #### [address] 10-06-2024 L Specimen: [id number] Received: 10/06/24 Status: SAHIL Joseph Num: [id number] Spec Type: Surgical Subm Dr: James Elaine MD Tissues: A Esophagus Biopsy (ESOPHAGUS BX R/O BARRETTS) Procedures: HE/2, Gross/Micro L4 Age/ Patient Sex Location Account Attending Physician Abram Guillaume 58/M [id number] James Elaine MD SPEC NUM: [id number] RECD: 10/06/24 STATUS: SAHIL RUIZ NUM: [id number] PHILLIP: 10/06/[address] [facility] [address]: James Elaine MD ENTERED: 10/06/[address] [facility] [address]: ANGELICA TYPE: Surgical DEPT: S ENTERED BY: [id number] RECV BY: [id number] ORDERED: HE/2, Gross/Micro L4 ORDERED: HE/2, Gross/Micro [...] entirely submitted in a single cassette. (1, mavis, [id number] A) Liam Microscopic Description Microscopic examination is performed. Specimen: [id number] Received: 10/06/24 Status: SAHIL Ruiz Num: [id number] Spec Type: Surgical Subm Dr: James Elaine MD Tissues: A Esophagus Biopsy (ESOPHAGUS BX R/O BARRETTS) Procedures: HE/2, Gross/Micro L4 Patient: Abram Guillaume [id number] (Continued) Specimen: [id number] Received: 10/06/24 (Continued) Signed (signature on file) Sandro Baird MD 10/07/24 1009 Specimen: [id number] Received: 10/06/24 Status: SAHIL Ruiz Num: [id number] Spec Type: Surgical Subm Dr: James Elaine MD Tissues: A Esophagus Biopsy (ESOPHAGUS BX R/O BARRETTS) Procedures: Twila MARIEE/Matt L4 Patient: Abram Guillaume [id number] (Continued) Specimen: [id number] Received: 10/06/24 (Continued) CPT Codes 57770 Specimen: [id number] Received: 10/06/24 Status: SAHIL Ruiz Num: [id number] Spec Type: Surgical Subm Dr: James Elaine MD Tissues: A Esophagus Biopsy (ESOPHAGUS BX R/O BARRETTS) Procedures: Twila MARIEE/Micro L4 Patient: Abram Guillaume [id number] (Continued) Signed (signature on file) Sandro Baird MD 10/07/24 1009 Normal [facility] Opiates [Presence] in Urine by Screen methodOrdered By: James Elaine on 10-06-2024 Opiates Screen Ql (U) Opiates [Presence] in Urine by Screen method Negative [facility] Phencyclidine Screen Ql (U)O rdered By: James Elaine on 10-06-2024 Phencyclidine Ql (U) Phencyclidine [Presence] in Urine by Screen method Negative [facility] ALL BASIC METABOLIC PANELon 09-28-2024 Anion gap [Moles/Vol] 14.1 mmol/L [facility] Calcium [Mass/Vol] 8.3 mg/dL Low 8.5 - 10. 1 mg/dL [facility] Chloride [Moles/Vol] 104 mmol/L 98 - 10 7 mmol/L [facility] CO2 [Moles/Vol] 28.4 mmol/L 21.0 - 32.0 mmol/L [facility] Creatinine [Mass/Vol] 1.61 mg/dL High 0.70 - 1.30 mg/dL [facility] GFR/1.73 sq M.predicted CKD-EPI (S/P/Bld) [Vol rate/Area] 54 Low >=60 mL/min/1.73m 2 [facility] Glucose [Mass/Vol] 137 mg/dL High 74 - 106 mg/dL [facility] Potassium [Moles/Vol] 3.5 mmol/L 3.5 - 5.1 mmol/L [facility] Sodium [Moles/Vol] 143 mmol/L 136 - 145 mmol/L [facility] TBH EGFR-NON AF ITALIAN 45 Low >=60 mL/min/1.73m 2 [facility] Urea nitrogen [Mass/Vol] 17 mg/dL 7.0 - 18.0 mg/dL [facility] Urea nitrogen/Creatinine [Mass ratio] 10.6 mg/mg [facility] ALL MAGNESIUMon 09-28-2024 Magnesium [Mass/Vol] 0.8 mg/dL Critically low 1.8 - 2.4 mg/dL [facility] Comment on above: RESULTS CALLED TO ELIZABETH SEXTON NP No Panel Informationon 09-28 Interpretation and review of laboratory results Abnormal [facility] Amphetamine Screen Ql (U)Ord ered By: James Elaine on 07-09-2024 Amphetamines Ql (U) Amphetamines screen Negativ e [facility] Amphetamines Ql (U) Negative Negative [facility] Barbiturates [Presence] in U rine by Screen methodOrdered By: James Elaine on 07-09-2024 Barbiturates Screen Ql (U) Negative Negative [facility] Barbiturates Screen Ql (U) Barbiturates [Presence] in Urine by Screen method Negative [facility] Benzodiazepines Screen Ql (U )Ordered By: James Elaine on 07-09-2024 Benzodiazepines Ql (U) Negative Negative [facility] Benzodiazepines Ql (U) Benzodiazepines [Presence] in Urine by Screen method Negative [facility] Benzoylecgonine [Presence] i n Urine by Screen methodOrdered By: Imrosalie Holbrookad on 07-09-2024 Benzoylecgonine Screen Ql (U) Negative Negative [facility] Benzoylecgonine Screen Ql (U) Benzoylecgonine [Presence] in Urine by Screen method Negative [facility] Cannabinoids [Presence] in U rine by Screen methodOrdered By: Imrosalie Elaine on 07-09-2024 Cannabinoids Screen Ql (U) Negative Negative [facility] Comment on above: These are unconfirme d results and should not be used for legal purposes. Drug Cut-Off Concentration: AMPH 1000 ng/mL MAX 200 ng/mL JUHI 200 ng/mL COCM 300 ng/mL OP 300 ng/mL PCP 25 ng/mL THC 20 ng/mL Cannabinoids Screen Ql (U) Cannabinoids [Presence] in Urine by Screen method Negative [facility] Comment on above: These are unconfirme d results and should not be used for legal purposes. Drug Cut-Off Concentration: AMPH 1000 ng/mL MAX 200 ng/mL JUHI 200 ng/mL COCM 300 ng/mL OP 300 ng/mL PCP 25 ng/mL THC 20 ng/mL Drug Screen,Urineon 07-09-20 Amphetamine Screen,Urine Negative Normal Negative [facility] Comment on above: Performed By: #### U RDS #### [place] [address] [place] Barbiturate Screen,Urine Negative Normal Negative [facility] Comment on above: Performed By: #### U RDS #### [place] [address] [place] Benzodiazepines Screen,Urine Negative Normal Negative [facility] Comment on above: Performed By: #### U RDS #### [place] [address] [place] Cannabinoid Screen,Urine Negative Normal Negative [facility] Comment on above: Result Comment: Thes e are unconfirmed results and should not be used for legal purposes. Drug Cut-Off Concentration: AMPH 1000 ng/mL MAX 200 ng/mL JUHI 200 ng/mL COCM 300 ng/mL OP 300 ng/mL PCP 25 ng/mL THC 20 ng/mL PERFORMED BY: [place] [address] PATHOLOGIST TEST CENTER MANAGER ZUHAIR KAUR M.D. Performed By: #### U RDS #### [place] [address] [place] Cocaine Screen,Urine Negative Normal Negative [facility] Comment on above: Performed By: #### U RDS #### [address] [address] [place] Opiate Screen,Urine Negative Normal Negative [facility] Comment on above: Performed By: #### U RDS #### [facility] [address] Phencyclidine Screen,Urine Negative Normal Negative [facility] Comment on above: Performed By: #### U RDS #### [address] No Panel InformationOrdered By: James Elaine on 07-09-2024 Miscellaneous Pathology Test See comment [facility] Comment on above: See report. Scanned copy available in EMR. Opiates [Presence] in Urine by Screen methodOrdered By: James Elaine on 07-09-2024 Opiates Screen Ql (U) Negative Negative [facility] Opiates Screen Ql (U) Opiates [Presence] in Urine by Screen method Negative [facility] Pathology Request for Lab Co rpon 07-09-2024 Pathology Request for Lab Itzel Normal [facility] Comment on above: Order Comment: PATHO LOGY GI SPECIMEN Result Comment: See report. Scanned copy available in EMR. PERFORMED BY: [place] [address] PATHOLOGIST TEST CENTER MANAGER ZUHAIR KAUR M.D. Performed By: #### P ATH TO [facility] #### [address] Phencyclidine Screen Ql (U)O rdered By: James Elaine on 07-09-2024 Phencyclidine Ql (U) Negative Negative [facility] Phencyclidine Ql (U) Phencyclidine [Presence] in Urine by Screen method Negative [facility] ALL MAGNESIUMon 06-23-2024 Magnesium [Mass/Vol] 1.5 mg/dL Low 1.8 - 2 .4 mg/dL [facility] ALL RENAL FUNCTION PANELon 1 Albumin [Mass/Vol] 3.3 g/dL Low 3.4 - 5.0 g/dL [facility] Anion gap [Moles/Vol] 12.6 mmol/L [facility] Calcium [Mass/Vol] 8.7 mg/dL 8.5 - 10. 1 mg/dL [facility] Chloride [Moles/Vol] 104 mmol/L 98 - 10 7 mmol/L [facility] CO2 [Moles/Vol] 26.1 mmol/L 21.0 - 32.0 mmol/L [facility] Creatinine [Mass/Vol] 1.72 mg/dL High 0.70 - 1.30 mg/dL [facility] GFR/1.73 sq M.predicted CKD-EPI (S/P/Bld) [Vol rate/Area] 50 Low 60 - PINF [facility] Glucose [Mass/Vol] 114 mg/dL High 74 - 106 mg/dL [facility] Phosphate [Mass/Vol] 3.2 mg/dL 2.6 - 4 .7 mg/dL [facility] Potassium [Moles/Vol] 4.7 mmol/L 3.5 - 5.1 mmol/L [facility] Sodium [Moles/Vol] 138 mmol/L 136 - 145 mmol/L [facility] TBH EGFR-NON AF ITALIAN 41 Low 60 - PINF [facility] Urea nitrogen [Mass/Vol] 30.0 mg/dL High 7.0 - 18.0 mg/dL [facility] Urea nitrogen/Creatinine [Mass ratio] 17.4 mg/mg [facility] ALL URIC ACIDon 06-23-2024 Urate [Mass/Vol] 8.0 mg/dL High 3.5 - 7.2 mg/dL [facility] Estimated glomerular filtrat ion rate (GFR) non- Americanon 06-23-2024 GFR/1.73 sq M.predicted among non-blacks MDRD (S/P/Bld) [Vol rate/Area] 41 mL/min/{1.73_m2} Low >=60 [facility] Laboratory - Chemistry and C hemistry - challengeon 06-23-2024 Albumin [Mass/Vol] 3.3 g/dL Low 3.4-5.0 [facility] Calcium [Mass/Vol] 8.7 mg/dL 8.5-10.1 [facility] Chloride [Moles/Vol] 104 mmol/L 98-107 [facility] CO2 [Moles/Vol] 26.1 mmol/L 21.0-32.0 [facility] Creatinine [Mass/Vol] 1.72 mg/dL High 0.70-1.30 [facility] GFR/1.73 sq M.predicted MDRD (S/P/Bld) [Vol rate/Area] 50 mL/min/{1.73_m2} Low >=60 [facility] Glucose [Mass/Vol] 114 mg/dL High 74-106 [facility] Magnesium [Mass/Vol] 1.5 mg/dL Low 1.8-2.4 [facility] Potassium [Moles/Vol] 4.7 mmol/L 3.5-5.1 [facility] Sodium [Moles/Vol] 138 mmol/L 136-145 [facility] Urate [Mass/Vol] 8.0 mg/dL High 3.5-7.2 [facility] Urea nitrogen [Mass/Vol] 30.0 mg/dL High 7.0-18.0 [facility] Urea nitrogen/Creatinine [Mass ratio] 17.4 mg/mg [facility] Laboratory - Urinalysison Protein (U) [Mass/Vol] 12.6 mg/dL High <=11.9 [facility] No Panel Informationon 06-23 Urine Random Creatinine 78.13 mg/dL 20.00-300.00 [facility] Interpretation and review of laboratory results Abnormal [facility] Phosphorus Level 3.2 mg/dL 2.6-4.7 [facility] Serum or plasma anion gap de terminationon 06-23-2024 Anion gap [Moles/Vol] 12.6 mmol/L [facility] Urine protein/creatinine rat ioon 06-23-2024 Protein/Creatinine (U) [Ratio] 0.16 [facility] BASIC METABOLIC PANLon 04-27 Anion gap [Moles/Vol] 9 mmol/L Normal 5-15 [facility] Comment on above: Performed By: #### B MP #### [facility] ([id number]) [address], [address] [place] [address] Calcium [Mass/Vol] 9.5 mg/dL Normal 8.5-10.5 [facility] Comment on above: Performed By: #### B MP #### [facility] ([id number]) [address], [address] [place] [address] Chloride [Moles/Vol] 105 mmol/L Normal 98-109 [facility] Comment on above: Performed By: #### B MP #### [facility] ([id number]) [address], [address] [place] [address] CO2 [Moles/Vol] 25 mmol/L Normal 22-32 [facility] Comment on above: Performed By: #### B MP #### [facility] ([id number]) [address], [address] [place] [address] Creatinine [Mass/Vol] 1.60 mg/dL High 0.60-1.30 [facility] Comment on above: Result Comment: METH OD TRACEABLE TO IDMS STANDARD Performed By: #### B MP #### [facility] ([id number]) [address], [address] [place] [address] GFR/1.73 sq M.predicted among non-blacks MDRD (S/P/Bld) [Vol rate/Area] 50 mL/min/{1.73_m2} Low >59 [facility] Comment on above: Result Comment: Reported eGFR is based on the CKD-EPI 2020 equation that does not use a race coefficient. Performed By: #### B MP #### [facility] ([id number]) [address], [address] [place] [address] Glucose [Mass/Vol] 104 mg/dL High 65-99 [facility] Comment on above: Performed By: #### B MP #### [facility] ([id number]) [address], [address] [place] [address] Potassium [Moles/Vol] 4.2 mmol/L Normal 3.5-5.0 [facility] Comment on above: Performed By: #### B MP #### [facility] ([id number]) [address], [address] [place] [address] Sodium [Moles/Vol] 139 mmol/L Normal 134-146 [facility] Comment on above: Performed By: #### B MP #### [facility] ([id number]) [address], [address] [place] [address] Urea nitrogen [Mass/Vol] 31 mg/dL High 5-23 [facility] Comment on above: Performed By: #### B MP #### [facility] ([id number]) [address], [address] [place] [address] Basic Metabolic Panelon 08-0 Anion gap [Moles/Vol] 9 mmol/L 5 - 15 mmol/L [facility] Calcium [Mass/Vol] 9.5 mg/dL 8.5 - 10. 5 mg/dL [facility] Chloride [Moles/Vol] 105 mmol/L 98 - 10 9 mmol/L [facility] CO2 [Moles/Vol] 25 mmol/L 22 - 32 mmol/L [facility] Creatinine [Mass/Vol] 1.60 mg/dL High 0.60 - 1.30 mg/dL [facility] Comment on above: METHOD TRACEABLE TO IDMI STANDARD eGFR (CKD-EPI)non-race dependent 50 Low - PINF [facility] Comment on above: Reported eGFR is based on the CKD-EPI 2020 equation that does not use a race coefficient. Glucose [Mass/Vol] 104 mg/dL High 65 - 99 mg/dL [facility] Interpretation and review of laboratory results Abnormal [facility] Potassium [Moles/Vol] 4.2 mmol/L 3.5 - 5.0 mmol/L [facility] Sodium [Moles/Vol] 139 mmol/L 134 - 146 mmol/L [facility] Urea nitrogen [Mass/Vol] 31 mg/dL High 5 - 23 mg/dL [facility] CBC AUTO DIFFon 07-19-2022 BASO # 0.1 103/ul Normal 0.0-0.1 [facility] Comment on above: Performed By: #### C BC #### [facility] [address] [place] [address] Dr. Lavonne Tinoco Basophils/100 WBC (Bld) 0.9 % Normal 0.2-2.0 [facility] Comment on above: Performed By: #### C BC #### [facility] [address] [place] [address] Dr. Lavonne Tinoco EO # 0.4 103/ul Normal 0.0-0.7 [facility] Comment on above: Performed By: #### C BC #### [facility] [address] [place] [address] Dr. Lavonne Tinoco Eosinophils/100 WBC (Bld) 4.5 % Normal 0.9-7.0 [facility] Comment on above: Performed By: #### C BC #### [facility] [address] [place] [address] Dr. Lavonne Tinoco Erythrocyte distribution width (RBC) [Ratio] 13.4 % Normal 11.0-15.0 [facility] Comment on above: Performed By: #### C BC #### [facility] [address] [place] [address] Dr. Lavonne Tinoco Hematocrit (Bld) [Volume fraction] 45.0 % Normal 42.0-54.0 [facility] Comment on above: Performed By: #### C BC #### [facility] [address] [place] [address] Dr. Lavonne Tinoco Hemoglobin (Bld) [Mass/Vol] 15.1 g/dL Normal 14.0-18.0 [facility] Comment on above: Performed By: #### C BC #### [facility] [address] [place] [address] Dr. Lavonne Tinoco IG # 0.04 10e3/ul Critically high 0.00-0.03 [facility] Comment on above: Performed By: #### C BC #### [facility] [address] [place] [address] Dr. Lavonne Tinoco IG % 0.4 % Normal 0.0-0.5 [facility] Comment on above: Performed By: #### C BC #### [facility] [address] [place] [address] Dr. Lavonne Tinoco LYMPH # 2.0 103/ul Normal 1.2-3.8 [facility] Comment on above: Performed By: #### C BC #### [facility] [address] [place] [address] Dr. Lavonne Tinoco Lymphocytes/100 WBC (Bld) 21.6 % Normal 20.5-60.0 [facility] Comment on above: Performed By: #### C BC #### [facility] [address] [place] [address] Dr. Lavonne Tinoco MANUAL DIFF REQ NO Normal [facility] Comment on above: Performed By: #### C BC #### [facility] [address] [place] [address] Dr. Lavonne Tinoco MCH (RBC) [Entitic mass] 32.7 pg Normal 25.9-34.0 [facility] Comment on above: Performed By: #### C BC #### [facility] [address] [place] [address] Dr. Lavonne Tinoco MCHC (RBC) [Mass/Vol] 33.6 g/dL Normal 29.9-35.2 [facility] Comment on above: Performed By: #### C BC #### [facility] [address] [place] [address] Dr. Lavonne Tinoco MCV (RBC) [Entitic vol] 97.4 fL Critically high 80.0-94.0 [facility] Comment on above: Performed By: #### C BC #### [facility] [address] [place] [address] Dr. Lavonne Tinoco MONO # 0.6 103/ul Normal 0.3-0.8 [facility] Comment on above: Performed By: #### C BC #### [facility] [address] [place] [address] Dr. Lavonne Tinoco Monocytes/100 WBC (Bld) 6.0 % Normal 1.7-12.0 [facility] Comment on above: Performed By: #### C BC #### [facility] [address] [address] [address] Lavonne Tinoco NEUT # 6.3 103/ul Normal 1.4-6.5 [facility] Comment on above: Performed By: #### C BC #### [facility] [address] [address] [address] Lavonne Tinoco Neutrophils/100 WBC (Bld) 66.6 % Normal 43.0-75.0 [facility] Comment on above: Performed By: #### C BC #### [facility] [address] [address] [address] Lavonne Tinoco Platelet mean volume (Bld) [Entitic vol] 10.7 fL Normal 9.5-13.5 [facility] Comment on above: Performed By: #### C BC #### [facility] [address] [address] [address] Lavonne Tinoco PLT 300 103/ul Normal 150-450 [facility] Comment on above: Performed By: #### C BC #### [facility] [address] [address] [address] Lavonne Tinoco RBC 4.62 106/ul Critically low 4.70-6.10 [facility] Comment on above: Performed By: #### C BC #### [facility] [address] [address] [address] Lavonne Tinoco WBC 9.4 103/ul Normal 4.0-11.0 [facility] Comment on above: Performed By: #### C BC #### [facility] [address] [address] [address] Lavonne Tinoco FREE T4on 07-19-2022 Free T4 [Mass/Vol] 0.90 ng/dL Normal 0.76-1.46 [facility] Comment on above: Performed By: #### C MP, TSH, LIPID #### [facility] [address] [address] [address] Lavonne Tinoco LIPID PROFILEon 07-19-2022 CHOL-HDL RATIO NORM SEE BELOW Normal [facility] Comment on above: Result Comment: 3.3 - 4.4 LOW RISK 4.4 - 7.1 AVERAGE RISK 7.1 - 11.0 MODERATE RISK >11.0 HIGH RISK Performed By: #### C MP, TSH, LIPID #### [facility] [address] [address] [address] Lavonne Tinoco Cholesterol [Mass/Vol] 207 mg/dL Critically high <=200 [facility] Comment on above: Performed By: #### C MP, TSH, LIPID #### [facility] [address] [address] [address] Lavonne Tinoco Cholesterol in HDL [Mass/Vol] 37 mg/dL Critically low 40-60 [facility] Comment on above: Performed By: #### C MP, TSH, LIPID #### [facility] [address] [address] [address] Lavonne Tinoco Cholesterol in LDL [Mass/Vol] 143.8 mg/dL Normal [facility] Comment on above: Performed By: #### C MP, TSH, LIPID #### [facility] [address] [address] [address] Lavonne Tinoco Cholesterol.total/Chol esterol in HDL [Mass ratio] 5.6 {ratio} Normal [facility] Comment on above: Performed By: #### C MP, TSH, LIPID #### [facility] [address] [address] [address] Lavonne Tinoco HDL NORMAL > or = 60 mg/dl - LOW CARDIOVASCULAR RISK <40 mg/dl - HIGH CARDIOVASCULAR RISK Normal [facility] Comment on above: Performed By: #### C MP, TSH, LIPID #### [facility] [address] [address] [address] Lavonne Tinoco LDL CALC NORMAL SEE BELOW Normal [facility] Comment on above: Result Comment: <100 mg/dl OPTIMAL 100 - 129 mg/dl NEAR OR ABOVE OPTIMAL 130 - 159 mg/dl BORDERLINE HIGH 160 - 189 mg/dl HIGH >190 mg/dl VERY HIGH Performed By: #### C MP, TSH, LIPID #### [facility] [address] [address] [address] Lavonne Tinoco Triglyceride [Mass/Vol] 131 mg/dL Normal <=150 [facility] Comment on above: Performed By: #### C MP, TSH, LIPID #### [facility] [address] [place] [address] Dr. Lavonne Tinoco VLDL CALC 26.2 mg/dL Normal [facility] Comment on above: Performed By: #### C MP, TSH, LIPID #### [facility] [address] [place] [address] Dr. Lavonne Tinoco PROF 14(COMP METB)on 022 Albumin [Mass/Vol] 3.6 g/dL Normal 3.4-5.0 [facility] Comment on above: Performed By: #### C MP, TSH, LIPID #### [facility] [address] [place] [address] Dr. Lavonne Tinoco Albumin/Globulin [Mass ratio] 1.0 {ratio} Normal [facility] Comment on above: Performed By: #### C MP, TSH, LIPID #### [facility] [address] [place] [address] Dr. Lavonne Tinoco ALP [Catalytic activity/Vol] 85 U/L Normal 46-116 [facility] Comment on above: Performed By: #### C MP, TSH, LIPID #### [facility] [address] [place] [address] Dr. Lvaonne Tinoco ALT [Catalytic activity/Vol] 33 U/L Normal 16-63 [facility] Comment on above: Performed By: #### C MP, TSH, LIPID #### [facility] [address] [place] [address] Dr. Lavonne Tinoco Anion gap [Moles/Vol] 9.2 mmol/L Normal [facility] Comment on above: Performed By: #### C MP, TSH, LIPID #### [facility] [address] [place] [address] Dr. Lavonne Tinoco AST [Catalytic activity/Vol] 17 U/L Normal 15-37 [facility] Comment on above: Performed By: #### C MP, TSH, LIPID #### [facility] [address] [place] [address] Dr. Lavonne Tinoco Bilirubin [Mass/Vol] 0.5 mg/dL Normal 0.2-1.0 [facility] Comment on above: Performed By: #### C MP, TSH, LIPID #### [facility] [address] [address] [address] Lavonne Tinoco Calcium [Mass/Vol] 8.5 mg/dL Normal 8.5-10.1 [facility] Comment on above: Performed By: #### C MP, TSH, LIPID #### [facility] [address] [place] [address] Dr. Lavonne Tinoco Chloride [Moles/Vol] 106 mmol/L Normal 98-107 [facility] Comment on above: Performed By: #### C MP, TSH, LIPID #### [facility] [address] [place] [address] Dr. Lavonne Tinoco CO2 [Moles/Vol] 31.3 mmol/L Normal 21.0-32.0 [facility] Comment on above: Performed By: #### C MP, TSH, LIPID #### [facility] [address] [place] [address] Dr. Lavonne Tinoco Creatinine [Mass/Vol] 1.06 mg/dL Normal 0.70-1.30 [facility] Comment on above: Performed By: #### C MP, TSH, LIPID #### [facility] [address] [place] [address] Dr. Lavonne Tinoco EGFR-AF ITALIAN >60 Normal >=60 [facility] Comment on above: Performed By: #### C MP, TSH, LIPID #### [facility] [address] [place] [address] Dr. Lavonne Tinoco EGFR-NON AF ITALIAN >60 Normal >=60 [facility] Comment on above: Performed By: #### C MP, TSH, LIPID #### [facility] [address] [place] [address] Dr. Lavonne Tinoco Globulin (S) [Mass/Vol] 3.6 g/dL Normal [facility] Comment on above: Performed By: #### C MP, TSH, LIPID #### [facility] [address] [address] [address] Lavonne Tinoco Glucose [Mass/Vol] 101 mg/dL Normal 74-106 [facility] Comment on above: Performed By: #### C MP, TSH, LIPID #### [facility] [address] [place] [address] Dr. Lavonne Tinoco Potassium [Moles/Vol] 3.5 mmol/L Normal 3.5-5.1 [facility] Comment on above: Performed By: #### C MP, TSH, LIPID #### [facility] [address] [place] [address] Dr. Lavonne Tinoco Protein [Mass/Vol] 7.2 g/dL Normal 6.4-8.2 [facility] Comment on above: Performed By: #### C MP, TSH, LIPID #### [facility] [address] [place] [address] Dr. Lavonne Tinoco Sodium [Moles/Vol] 143 mmol/L Normal 136-145 [facility] Comment on above: Performed By: #### C MP, TSH, LIPID #### [facility] [address] [place] [address] Dr. Lavonne Tinoco Urea nitrogen [Mass/Vol] 21.0 mg/dL Critically high 7.0-18.0 [facility] Comment on above: Performed By: #### C MP, TSH, LIPID #### [facility] [address] [place] [address] Dr. Lavonne Tinoco Urea nitrogen/Creatinine [Mass ratio] 19.8 mg/mg Normal [facility] Comment on above: Performed By: #### C MP, TSH, LIPID #### [facility] [address] [place] [address] Dr. Lavonne Tinoco TSHon 07-19-2022 TSH 1.947 uIU/mL Normal 0.358-3.740 [facility] Comment on above: Performed By: #### C MP, TSH, LIPID #### [facility] [address] [place] [address] Dr. Lavonne Tinoco UA RANDOM W/MICROSCOPICon BACTERIA NONE SEEN Normal NONE SEEN [facility] Comment on above: Performed By: #### U AMIC #### [facility] [address] [address] [address] Lavonne Tinoco Bilirubin Ql (U) Negative Normal NEGATIVE [facility] Comment on above: Performed By: #### U AMIC #### [facility] [address] [address] [address] Lavonne Tinoco CAST NONE SEEN Normal NONE SEEN [facility] Comment on above: Performed By: #### U AMIC #### [facility] [address] [address] [address] Lavonne Tinoco Clarity (U) CLEAR Normal CLEAR [facility] Comment on above: Performed By: #### U AMIC #### [facility] [address] [address] [address] Lavonne Tinoco Color (U) YELLOW Normal YELLOW [facility] Comment on above: Performed By: #### U AMIC #### [facility] [address] [address] [address] Lavonne Tinoco Crystals LM Nom (Urine sed) NONE SEEN Normal NONE SEEN [facility] Comment on above: Performed By: #### U AMIC #### [facility] [address] [address] [address] Lavonne Tinoco Epithelial cells LM Ql (Urine sed) FEW Abnormal NONE SEEN /RARE [facility] Comment on above: Performed By: #### U AMIC #### [facility] [address] [address] [address] Lavonne Tinoco Glucose Ql (U) Negative Normal NEGATIVE [facility] Comment on above: Performed By: #### U AMIC #### [facility] [address] [address] [address] Lavonne Tinoco Hemoglobin Ql (U) Negative Normal NEGATIVE [facility] Comment on above: Performed By: #### U AMIC #### [facility] [address] [address] [address] Lavonne Tinoco Ketones Ql (U) Negative Normal NEGATIVE [facility] Comment on above: Performed By: #### U AMIC #### [facility] [address] [address] [address] Lavonne Tinoco LEUKOCYTES TRACE Abnormal NEGATIVE [facility] Comment on above: Performed By: #### U AMIC #### [facility] [address] [address] [address] Lavonne Tinoco MUCOUS NONE SEEN Normal NONE SEEN [facility] Comment on above: Performed By: #### U AMIC #### [facility] [address] [address] [address] Lavonne Tinoco Nitrite Ql (U) Negative Normal NEGATIVE [facility] Comment on above: Performed By: #### U AMIC #### [facility] [address] [address] [address] Lavonne Tinoco pH (U) 6.0 [pH] Normal 5-9 [facility] Comment on above: Performed By: #### U AMIC #### [facility] [address] [place] [address] Dr. Lavonne Tinoco RBC NONE SEEN Abnormal 0-2 [facility] Comment on above: Performed By: #### U AMIC #### [facility] [address] [place] [address] Dr. Lavonne Tinoco SPEC GRAVITY 1.020 Normal 1.005-<=1.025 [facility] Comment on above: Performed By: #### U AMIC #### [facility] [address] [place] [address] Dr. Lavonne Tinoco UA PROTEIN TRACE Normal NEGATIVE/ TRACE [facility] Comment on above: Performed By: #### U AMIC #### [facility] [address] [place] [address] Dr. Lavonne Tinoco Urobilinogen Qn (U) 2.0 {Erick'U}/dL Abnormal 0.2 - 1. 0 [facility] Comment on above: Performed By: #### U AMIC #### [facility] [address] [place] [address] Dr. Lavonne Tinoco WBC 0-2 Abnormal NONE SEEN [facility] Comment on above: Performed By: #### U AMIC #### [facility] [address] [address] [address] Lavonne Tinoco NM STRESS/REST MULTIon 04-04 NM STRESS/REST MULTI Patient: ABRAM GUILLAUME. Exam Date: 04/04/2022 : 1965 Gender:M Ordering : [facility] Admission #: [id number] Family : Order #: [id number] CLICK HERE TO VIEW EXAM RADIOLOGY REPORT [...] Gan MD on 04/04/2022 at 13:16 Normal [facility] ECHOCARDIO M/2D COMPLETEon 0 02-27-2022 ECHOCARDIO M/2D COMPLETE Patient: ABRAM GUILLAUME Exam Date: 02/27/2022 : 1965 Gender:M Ordering : [facility] Admission #: [id number] Family : Order #: [id number] CLICK HERE TO VIEW EXAM ECHOCARDIOGRAM REPORT [...] Area(A4C): 21.60 cm2 Left Atrium Systolic Volume(A2C): 39738 mm3 Left Atrium Systolic Volume(A4C): 55377 mm3 Mitral Valve MV E to A [...] Peck M.D. on 02/28/2022 at 11:52 Normal [facility] ANKLE LEFT 3 [facility] 2 ANKLE LEFT 3 [facility] Department of Radiology [address] [place] [id number] Patient Name: ABRAM GUILLAUME : 1965 Sex: M Age: Race: White Pt. Location: Patient Status: D Ordered Date: 01/11/2022 9:05:00 AM Completed Date: 01/11/2022 09:13 AM Requesting Provider: RON HAMILTON Attending Provider: RON HAMILTON Report Copy To: Signs & Symptoms: M25.572 Pain in left ankle and joints of left foot I10 History: [place] Comments: Views (X-RAY, ANKLE): AP, Lateral, Mortise , Weight Bearing?: Y Exam: ANKLE LEFT 3 [facility] ANKLE LEFT 3 VWS 01/11/2022 9:13 AM [...] above Electronically signed: Violeta Jay. Transcribed by: [email or web address], User Resident: Electronically Signed by: VIOLETA JAY @ 01/12/2022 03:24 PM Normal [facility] Comment on above: Order Comment: Views (X-RAY, ANKLE): AP, Lateral, Mortise , Weight Bearing?: Y GLYCOHEMOGLOBIN A1Con 2021 ADA RECOMMENDATION ADA THERAPEUTIC TARGET 6.0 - 7.0 ACTION SUGGESTED > 7.0 Normal [facility] Comment on above: Performed By: #### A 1C #### [facility] [address] [address] [address] Lavonne Tinoco Glucose [Mass/Vol] 100 mg/dL Normal [facility] Comment on above: Performed By: #### A 1C #### [facility] [address] [address] [address] Lavonne Tinoco HbA1c (Bld) [Mass fraction] 5.1 % Normal <=6.0 [facility] Comment on above: Performed By: #### A 1C #### [facility] [address] [address] [address] Lavonne Tinoco MAGNESIUMon 12-25-2021 Magnesium [Mass/Vol] 1.7 mg/dL Normal 1.6-2.3 [facility] Comment on above: Performed By: #### M G, BMP #### [facility] [address] [place] [address] Dr. Lavonne Tinoco PROF CHEM 8 (BAS METB)on Anion gap [Moles/Vol] 12.3 mmol/L Normal [facility] Comment on above: Performed By: #### M G, BMP #### [facility] [address] [place] [address] Dr. Lavonne Tionco Calcium [Mass/Vol] 8.7 mg/dL Normal 8.5-10.1 [facility] Comment on above: Performed By: #### M G, BMP #### [facility] [address] [place] [address] Dr. Lavonne Tinoco Chloride [Moles/Vol] 107 mmol/L Normal 98-107 [facility] Comment on above: Performed By: #### M G, BMP #### [facility] [address] [place] [address] Dr. Lavonne Tinoco CO2 [Moles/Vol] 27.4 mmol/L Normal 22.0-30.0 [facility] Comment on above: Performed By: #### M G, BMP #### [facility] [address] [place] [address] Dr. Lavonne Tinoco Creatinine [Mass/Vol] 1.50 mg/dL Critically high 0.66-1.25 [facility] Comment on above: Performed By: #### M G, BMP #### [facility] [address] [place] [address] Dr. Lavonne Tinoco EGFR-AF ITALIAN 59 mL/min/1.73m2 Critically low >=60 [facility] Comment on above: Performed By: #### M G, BMP #### [facility] [address] [place] [address] Dr. Lavonne Tinoco EGFR-NON AF ITALIAN 49 mL/min/1.73m2 Critically low >=60 [facility] Comment on above: Performed By: #### M G, BMP #### [facility] [address] [address] [address] Lavonne Tinoco Glucose [Mass/Vol] 103 mg/dL Normal 74-106 [facility] Comment on above: Performed By: #### M G, BMP #### [facility] [address] [address] [address] Lavonne Tinoco Potassium [Moles/Vol] 3.7 mmol/L Normal 3.4-5.0 [facility] Comment on above: Performed By: #### M G, BMP #### [facility] [address] [address] [address] Lavonne Tinoco Sodium [Moles/Vol] 143 mmol/L Normal 137-145 [facility] Comment on above: Performed By: #### M G, BMP #### [facility] [address] [address] [address] Lavonne Tinoco Urea nitrogen [Mass/Vol] 17.0 mg/dL Normal 7.0-18.0 [facility] Comment on above: Performed By: #### M G, BMP #### [facility] [address] [address] [address] Lavonne Tinoco Urea nitrogen/Creatinine [Mass ratio] 11.3 mg/mg Normal [facility] Comment on above: Performed By: #### M G, BMP #### [facility] [address] [address] [address] Lavonne Tinoco Vital Signs Date Time Vital Sign Value Performing Clinician Facility 10-07-2024 09:05-0500 Body height 175.3 cm Pepper Sexton [employer] DIRECT[employer] Work Phone: [facility] 10-07-2024 09:05-0500 Body mass index (BMI) [Ratio] 41.47 kg/m2 Pepper Sexton [employer] DIRECT[employer] Work Phone: [facility] 10-07-2024 09:05-0500 Body temperature 97.81 [degF] Pepper Sexton [employer] DIRECTOR Work Phone: [facility] 10-07-2024 09:05-0500 Body weight 127.37 kg Pepper Aichholz [employer] DIRECT[employer] Work Phone: [facility] 10-07-2024 09:05-0500 Diastolic blood pressure 84 mm[Hg] Pepper Aichholz [employer] DIRECT[employer] Work Phone: [facility] 10-07-2024 09:05-0500 Heart rate 92 /min Pepper Aichholz [employer] DIRECT[employer] Work Phone: [facility] 10-07-2024 09:05-0500 Respiratory rate 22 /min Pepper Aichholz [employer] DIRECT[employer] Work Phone: [facility] 10-07-2024 09:05-0500 SaO2% (BldA) [Mass fraction] 96 % Pepper Aichholz [employer] DIRECTOR Work Phone: [facility] 10-07-2024 09:05-0500 Systolic blood pressure 138 mm[Hg] Pepper Aichholz [employer] DIRECT[employer] Work Phone: [facility] 10-06-2024 09:05-0500 Diastolic blood pressure 86 mm[Hg] Pepper Aichholz Work Phone: [facility] 10-06-2024 09:05-0500 Heart rate 88 /min Pepper Aichholz Work Phone: [facility] 10-06-2024 09:05-0500 Respiratory rate 18 /min Pepper Aichholz Work Phone: [facility] 10-06-2024 09:05-0500 SaO2% (BldA) [Mass fraction] 96 % Pepper Aichholz Work Phone: [facility] 10-06-2024 09:05-0500 Systolic blood pressure 136 mm[Hg] Pepper Aichholz Work Phone: [facility] 10-06-2024 07:31-0500 Body height 177.8 cm Pepper Aichholz Work Phone: [facility] 10-06-2024 07:31-0500 Body weight 115.66 kg Pepper Aichholz Work Phone: [facility] 07-09-2024 13:55-0400 Diastolic blood pressure 74 mm[Hg] Pepper Aichholz Work Phone: [facility] 07-09-2024 13:55-0400 Heart rate 74 /min Pepper Aichholz Work Phone: [facility] 07-09-2024 13:55-0400 Respiratory rate 18 /min Pepper Aichholz Work Phone: [facility] 07-09-2024 13:55-0400 SaO2% (BldA) [Mass fraction] 100 % Pepper Aichholz Work Phone: [facility] 07-09-2024 13:55-0400 Systolic blood pressure 111 mm[Hg] Pepper Aichholz Work Phone: [facility] 07-09-2024 11:51-0400 Body height 175.26 cm Pepper Aichholz Work Phone: [facility] 07-09-2024 11:51-0400 Body temperature 98.6 [degF] Pepper Aichholz Work Phone: [facility] 07-09-2024 11:51-0400 Body weight 117.9 kg Pepper Aichholz Work Phone: [facility] 07-06-2024 09:44-0400 Body height 175.3 cm Pepper Aichholz [employer] DIRECT[employer] Work Phone: [facility] 07-06-2024 09:44-0400 Body mass index (BMI) [Ratio] 37.18 kg/m2 Pepper Aichholz [employer] DIRECTOR Work Phone: [facility] 07-06-2024 09:44-0400 Body temperature 98.1 [degF] Pepper Aichholz [employer] DIRECT[employer] Work Phone: [facility] 07-06-2024 09:44-0400 Body weight 114.22 kg Pepper Sexton [employer] DIRECTOR Work Phone: [facility] 07-06-2024 09:44-0400 Diastolic blood pressure 82 mm[Hg] Pepper Sexton [employer] DIRECT[employer] Work Phone: [facility] 07-06-2024 09:44-0400 Heart rate 79 /min Pepper Sexton [employer] DIRECT[employer] Work Phone: [facility] 07-06-2024 09:44-0400 Respiratory rate 19 /min Pepper Sexton [employer] DIRECT[employer] Work Phone: [facility] 07-06-2024 09:44-0400 SaO2% (BldA) [Mass fraction] 93 % Pepper Sexton [employer] DIRECTOR Work Phone: [facility] 07-06-2024 09:44-0400 Systolic blood pressure 126 mm[Hg] Pepper Sexton [employer] DIRECT[employer] Work Phone: [facility] 06-24-2024 08:39-0400 Body height 175.26 cm [facility] 06-24-2024 08:39-0400 Body mass index (BMI) [Ratio] 42.3 kg/m2 [facility] 06-24-2024 08:39-0400 Body weight 130 kg [facility] 06-23-2024 08:50-0400 Body height 175.26 cm [facility] 06-23-2024 08:50-0400 Body mass index (BMI) [Ratio] 42.3 kg/m2 [facility] 06-23-2024 08:50-0400 Body temperature 98.2 [degF] [facility] 06-23-2024 08:50-0400 Body weight 129.89 kg [facility] 06-23-2024 08:50-0400 Diastolic blood pressure 77 mm[Hg] [facility] 06-23-2024 08:50-0400 Heart rate 91 /min [facility] 06-23-2024 08:50-0400 Respiratory rate 18 /min [facility] 06-23-2024 08:50-0400 SaO2% (BldA) [Mass fraction] 93 % [facility] 06-23-2024 08:50-0400 Systolic blood pressure 115 mm[Hg] [facility] 04-27-2024 08:35-0400 Body height 175.3 cm [facility] 2 [facility] 04-27-2024 08:35-0400 Body mass index (BMI) [Ratio] 38.4 kg/m2 [facility] 2 [facility] 04-27-2024 08:35-0400 Body weight 117.94 kg Pmh 2 [facility] 03-19-2024 09:37-0400 Body height 175.26 cm [facility] 03-19-2024 09:37-0400 Body mass index (BMI) [Ratio] 39.4 kg/m2 [facility] 03-19-2024 09:37-0400 Body temperature 97.8 [degF] [facility] 03-19-2024 09:37-0400 Body weight 121.1 kg [facility] 03-19-2024 09:37-0400 Diastolic blood pressure 98 mm[Hg] [facility] 03-19-2024 09:37-0400 Heart rate 94 /min [facility] 03-19-2024 09:37-0400 Respiratory rate 20 /min [facility] 03-19-2024 09:37-0400 SaO2% (BldA) [Mass fraction] 95 % [facility] 03-19-2024 09:37-0400 Systolic blood pressure 158 mm[Hg] [facility] Encounters Encounter Date Encounter Type Care Provider Facility Start: 11-24-2024 End: 11-24-2024 Clinisync Result Encounter Generic External Data Provider [facility] External Department Unsolicited Start: 11-24-2024 End: 11-24-2024 Clinisync Result Encounter Generic External Data Provider [facility] External Department Unsolicited Start: 11-05-2024 End: 11-05-2024 Clinisync Result Encounter Pepper Sexton NP Work Phone: [facility] External Department Unsolicited Start: 11-05-2024 End: 11-05-2024 Clinisync Result Encounter Pepper Sexton PUPIL PERSON[employer]EL SERVICES DIRECTOR Work Phone: [facility] External Department Unsolicited Start: 11-04-2024 End: 11-04-2024 Refill Pepper Sexton PUPIL PERSONNEL SERVICES DIRECTOR Work Phone: [facility] Comment on above: Hypomagnesemia; Restless legs syndrome Start: 10-08-2024 End: 10-08-2024 Refill Pepper Sexton PUPIL PERSONNEL SERVICES DIRECTOR Work Phone: [facility] Comment on above: Hypothyroidism, unsp ecified type (CMS/HCC) (Primary Dx); Hypomagnesemia Start: 10-07-2024 End: 10-07-2024 Bamboo flowsheet Pepper Sexton PUPIL PERSONNEL SERVICES DIRECTOR Work Phone: [facility] Start: 10-07-2024 End: 10-07-2024 Bamboo flowsheet Pepper Sexton PUPIL PERSONNEL SERVICES DIRECTOR Work Phone: [facility] Start: 10-07-2024 End: 10-07-2024 Clinisync Result Encounter Pepper Sexton PUPIL PERSONNEL SERVICES DIRECTOR Work Phone: [facility] External Department Unsolicited Start: 10-07-2024 End: 10-07-2024 Office outpatient visit 25 minutes Pepper Sexton PUPIL PERSONNEL SERVICES DIRECTOR Work Phone: [facility] Comment on above: Essential hypertensi on, benign [...] (CMS/HCC) Start: 10-07-2024 End: 10-07-2024 ambulatory PEPPER SCOTTHOLZ Not Available Start: 10-06-2024 Non-patient / Non-visit Pepper A melvinaayleenz Work Phone: [facility] Work Phone: Start: 10-06-2024 End: 10-06-2024 Admission to same day surgery center Pepper Serratoayleenz Work Phone: [facility] Work Phone: Start: 10-06-2024 End: 10-06-2024 ambulatory Pepper Wheeler Javierpricillajemal Work Phone: [facility] Work Phone: Start: 09-28-2024 End: 09-28-2024 Clinisync Result Encounter Peppereboni Serratoholz PUPIL PERSONNEL SERVICES DIRECTOR Work Phone: [facility] External Department Unsolicited Start: 09-28-2024 End: 09-28-2024 Clinisync Result Encounter Pepper Serratoayleenz PUPIL PERSONNEL SERVICES DIRECTOR Work Phone: [facility] External Department Unsolicited Start: 09-28-2024 End: 09-28-2024 Refill Pepper Aicpricillaholz PUPIL PERSONNEL SERVICES DIRECTOR Work Phone: [facility] Comment on above: Hypomagnesemia (Prim ирина Dx) Start: 09-14-2024 End: 09-14-2024 Refill Pepper Aichholz PUPIL PERSONNEL SERVICES DIRECTOR Work Phone: [facility] Comment on above: Hypomagnesemia Start: 09-14-2024 End: 09-15-2024 Refill Pepper Aichholz PUPIL PERSON[employer]EL SERVICES DIRECTOR Work Phone: [facility] Comment on above: Fibromyalgia Start: 09-04-2024 End: 09-04-2024 Orders Only Pepper Aichholz PUPIL PERSONNEL SERVICES DIRECTOR Work Phone: [facility] Comment on above: Hypomagnesemia (Prim ирина Dx) Start: 09-04-2024 End: 09-04-2024 Refill Pepper Aichholz PUPIL PERSONNEL SERVICES DIRECTOR Work Phone: [facility] Comment on above: Hypomagnesemia Start: 07-09-2024 Non-patient / Non-visit Pepper Lyn kelechi Work Phone: [facility] Work Phone: Start: 07-09-2024 End: 07-09-2024 Admission to same day surgery center Pepper Carlie Work Phone: [facility] Work Phone: Start: 07-09-2024 End: 07-09-2024 ambulatory Pepper Liam Sexton Work Phone: [facility] Work Phone: Start: 07-06-2024 End: 07-06-2024 Bamboo flowsheet Pepper Sexton PUPIL PERSONNEL SERVICES DIRECTOR Work Phone: [facility] Start: 07-06-2024 End: 07-06-2024 Bamboo flowsheet Pepper Carlie PUPIL PERSONNEL SERVICES DIRECTOR Work Phone: [facility] Start: 07-06-2024 End: 07-06-2024 Office outpatient visit 25 minutes Pepper Carlie PUPIL PERSONNEL SERVICES DIRECTOR Work Phone: [facility] Comment on [...] Dx) Start: 06-30-2024 End: 06-30-2024 ambulatory RUPERT Eboni BO Not Available Start: 06-29-2024 End: 06-29-2024 Refill Pepper Sexton PUPIL PERSONNEL SERVICES DIRECTOR Work Phone: [facility] Comment on above: Restless legs syndro me Start: 06-24-2024 End: 06-24-2024 ambulatory [facility] Work Phone: Start: 06-24-2024 End: 06-24-2024 Patient encounter procedure [facility] Work Phone: Start: 06-23-2024 End: 06-23-2024 Clinisync Result Encounter Generic External Data Provider [facility] External Department Unsolicited Start: 06-23-2024 End: 06-23-2024 Clinisync Result Encounter Generic External Data Provider [facility] External Department Unsolicited Start: 06-23-2024 End: 06-23-2024 ambulatory [facility] Work Phone: Start: 06-23-2024 End: 06-23-2024 Patient encounter procedure [facility] Nephrology [place] Work Phone: Start: 06-18-2024 End: 06-18-2024 Refill Agustin Stokes MD Work Phone: [facility] Comment on above: Degenerative disc di sease, cervical (Primary Dx) Start: 06-09-2024 End: 06-09-2024 Refill Pepper Sexton PUPIL PERSONNEL SERVICES DIRECTOR Work Phone: [facility] Comment on above: Hypomagnesemia questions Start: 06-03-2024 End: 06-03-2024 Bamboo flowsheet Blank Mcfarlane PUPIL PERSONNEL SERVICES DIRECTOR Work Phone: [facility] Start: 06-03-2024 End: 06-03-2024 Bamboo flowsheet Blank Mcfarlane PUPIL PERSONNEL SERVICES DIRECTOR Work Phone: [facility] Start: 06-03-2024 End: 06-03-2024 ambulatory BLANK Langston JOOSARAH Not Available Start: 06-03-2024 End: 06-03-2024 Postop follow up visit related to original px Blank Kian Denys PUPIL PERSONNEL SERVICES DIRECTOR Work Phone: [facility] Comment on above: 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) Start: 05-27-2024 End: 05-27-2024 Evaluation and management of inpatient KENNEDI [facility] Start: 05-27-2024 End: 05-27-2024 Evaluation and management of inpatient [facility] Start: 05-26-2024 End: 05-26-2024 Refill Tiburcio Noel PUPIL PERSONNEL SERVICES DIRECTOR Work Phone: [facility] Comment on above: Post-operative pain (Primary Dx) Start: 05-04-2024 Preoperative state Tiburcio Noel PUPIL PERSONNEL SERVICES DIRECTOR Work Phone: [facility] Healthcare Start: 05-04-2024 End: 05-04-2024 ambulatory PEPPER CARLIE Not Available Start: 04-30-2024 End: 04-30-2024 ambulatory [facility] Not Available Start: 04-27-2024 End: 04-27-2024 ambulatory [facility] Start: 04-27-2024 Encounter for other preprocedural examination [facility] Start: 04-27-2024 End: 04-27-2024 Patient encounter procedure P[facility] Pre-Admission Testing 2 [facility] - Pre Ad[facility] Comment on above: Preop examination (P rimary Dx); Hypertension, unspecified type Start: 04-27-2024 End: 04-27-2024 Preprocedural examination done Pm 2 [facility] Start: 04-09-2024 End: 04-09-2024 ambulatory PEPPER AICHHOLZ Not Available Start: 03-19-2024 End: 03-19-2024 ambulatory [facility] Work Phone: Start: 03-19-2024 End: 03-19-2024 Patient encounter procedure [facility] Nephrology Work Phone: Start: 03-11-2024 End: 03-11-2024 ambulatory PEPPER AICHHOLZ Not Available Start: 03-05-2024 End: 03-05-2024 ambulatory RUPERT WEBERDLESTON Not Available Start: 02-26-2024 End: 02-26-2024 ambulatory BLANK MCFARLANE Not Available Start: 02-26-2024 End: 02-26-2024 ambulatory PEPPER AICHHOLZ Not Available Start: 02-04-2024 End: 02-04-2024 ambulatory KARUNA CARRANZA Not Available Start: 01-07-2024 End: 01-07-2024 ambulatory AGUSTIN KIKE Not Available Start: 11-26-2023 End: 11-26-2023 ambulatory PEPPER AICHHOLZ Not Available Start: 07-19-2022 End: 07-20-2022 ambulatory STAFF RN PEPPER AICHHOLZ Facility:[facility] Start: 04-04-2022 End: 04-05-2022 ambulatory STAFF RN PEPPER AICHHOLZ Facility:[facility] Start: 02-27-2022 End: 02-28-2022 ambulatory STAFF RN PEPPER AICHHOLZ Facility:[facility] Start: 01-16-2022 End: 01-17-2022 ambulatory STAFF RN PEPPER AICHHOLZ Facility:[facility] Start: 12-25-2021 End: 12-26-2021 ambulatory STAFF RN PEPPER AICHHOLZ Facility:[facility] Procedures Date Procedure Procedure Detail Performing Clinician Start: 11-24-2024 ALL MAGNESIUM Generic External Data Provider Start: 11-05-2024 ALL MAGNESIUM Pepper Aichholz PUPIL PERSONNEL SERVICES DIRECTOR Work Phone: Start: 10-07-2024 ALL MAGNESIUM Pepper Aichholz PUPIL PERSONNEL SERVICES DIRECTOR Work Phone: Start: 10-07-2024 ALL THYROID STIM HORMONE Pepper Aichholz N P Work Phone: Start: 10-07-2024 Hemoglobin glycosylated a1c Pepper Aichhol z PUPIL PERSONNEL SERVICES DIRECTOR Work Phone: Start: 10-06-2024 Esophagogastroduodenoscopy Pepper Sexton Work Phone: Start: 09-28-2024 ALL BASIC METABOLIC PANEL Pepper Sexton PUPIL PERSONNEL SERVICES DIRECTOR Work Phone: Start: 09-28-2024 ALL MAGNESIUM Pepper eSxton PUPIL PERSONNEL SERVICES DIRECTOR Work Phone: Start: 07-09-2024 Esophagogastroduodenoscopy Pepper Sexton Work Phone: Start: 06-23-2024 ALL MAGNESIUM Generic External Data Provider Start: 06-23-2024 ALL RENAL FUNCTION PANEL Generic Externa l Data Provider Start: 06-23-2024 ALL URIC ACID Generic External Data Provider Start: 07-19-2022 PSA screening STAFF RN PEPPER SEXTON Comment on above: Performed By: #### CMP, TSH, LIPID #### [facility] [address] [place] [address] Dr. Lavonne Tinoco Plan of Treatment Date Care Activity Detail Author Start: 08-11-2025 Screening for malign ant neoplasm of colon [facility] Start: 04-27-2025 Adult BMI Screening Adult BMI Screen ing [facility] Start: 04-27-2025 Tobacco Screening Tobacco Screening [facility] Start: 01-06-2025 End: 01-06-2025 Patient encounter procedure 01/06/2025 9:00 AM EDT Office Visit [facility] [address] [place] [address] Pepper Sexton NP [address] [place] [id number] [facility] Start: 12-06-2024 End: 10-08-2025 Thyrotropin [Units/volume] in Serum or Plasma TSH Lab Routine Hypothyroidism, unspecified type (CMS/HCC) Expected: 12/06/2024 (Approximate), Expires: 10/08/2025 [facility] Work Phone: Comment on above: Expected: 12/06/2024 (Approximate), Expires: 10/08/2025 Start: 12-06-2024 End: 10-08-2025 Thyroxine (T4) free [Mass/volume] in Serum or Plasma T4, free Lab Routine Hypothyroidism, unspecified type (CMS/HCC) Expected: 12/06/2024 (Approximate), Expires: 10/08/2025 [facility] Comment on above: Expected: 12/06/2024 (Approximate), Expires: 10/08/2025 Start: 10-22-2024 End: 10-08-2025 Magnesium [Mass/volume] in Serum or Plasma Magnesium Lab Routine Hypomagnesemia Expected: 10/22/2024 (Approximate), Expires: 10/08/2025 [facility] Comment on above: Expected: 10/22/2024 (Approximate), Expires: 10/08/2025 Start: 10-07-2024 End: 10-07-2025 Magnesium [Mass/volume] in Serum or Plasma Magnesium Lab Routine Hypomagnesemia Expected: 10/07/2024 (Approximate), Expires: 10/07/2025 [facility] Comment on above: Expected: 10/07/2024 (Approximate), Expires: 10/07/2025 Start: 10-07-2024 End: 10-07-2025 Thyrotropin [Units/volume] in Serum or Plasma TSH Lab Routine Hypothyroidism, unspecified type (CMS/HCC) Expected: 10/07/2024 (Approximate), Expires: 10/07/2025 [facility] Work Phone: Comment on above: Expected: 10/07/2024 (Approximate), Expires: 10/07/2025 Start: 10-07-2024 End: 10-07-2025 Thyroxine (T4) free [Mass/volume] in Serum or Plasma T4, free Lab Routine Hypothyroidism, unspecified type (CMS/HCC) Expected: 10/07/2024 (Approximate), Expires: 10/07/2025 [facility] Comment on above: Expected: 10/07/2024 (Approximate), [...] (CMS/HCC); Hypomagnesemia; Marijuana use; Pre-diabetes Start: 10-06-2024 [facility] Start: 09-04-2024 End: 09-04-2025 Basic metabolic 1998 panel - Serum or Plasma Basic metabolic panel Lab Routine Hypomagnesemia Expected: 09/04/2024 (Approximate), Expires: 09/04/2025 [facility] Comment on above: Expected: 09/04/2024 (Approximate), Expires: 09/04/2025 Start: 09-04-2024 End: 09-04-2025 Magnesium [Mass/volume] in Serum or Plasma Magnesium Lab Routine Hypomagnesemia Expected: 09/04/2024 (Approximate), Expires: 09/04/2025 [facility] Work Phone: Comment on above: Expected: 09/04/2024 (Approximate), Expires: 09/04/2025 Start: 07-09-2024 [facility] Start: 07-06-2024 End: 07-06-2024 Patient encounter procedure [facility] Comment on above: Arrived Start: 06-30-2024 End: 06-30-2024 Patient encounter procedure [facility] Comment on above: Arrived Start: 06-09-2024 End: 06-09-2025 Basic metabolic 1998 panel - Serum or Plasma Basic metabolic panel Lab Routine Hypomagnesemia Expected: 06/09/2024 (Approximate), Expires: 06/09/2025 [facility] Work Phone: Comment on above: Expected: 06/09/2024 (Approximate), Expires: 06/09/2025 Start: 06-09-2024 End: 06-09-2025 Magnesium [Mass/volume] in Serum or Plasma Magnesium Lab Routine Hypomagnesemia Expected: 06/09/2024 (Approximate), Expires: 06/09/2025 [facility] Comment on above: Expected: 06/09/2024 (Approximate), Expires: 06/09/2025 Start: 06-03-2024 End: 06-03-2024 Patient encounter procedure 06/03/2024 8:45 AM EDT Office Visit [facility] [address] [facility] [address] [place] [address] Blank Mcfarlane NP [address] [place] [address] [facility] Start: 05-27-2024 End: 05-27-2024 Patient encounter procedure 05/27/2024 10:40 AM EDT Office Visit [facility] [address] [place] [phone] Karuna Carranza PA [address] [place] [address] [facility] [address] Start: 05-27-2024 End: 05-27-2024 Admission to same day surgery center 05/27/2024 7:30 AM EDT - 05/27/2024 8:30 AM EDT Surgery [facility] Surgery [address] [place] [address] Rupert Bo DO [address] [facility] [address] [place] [address] DECOMPRESSION NERVE ULNAR [90091 (CPT )] [facility] Comment on above: DECOMPRESSION NERVE ULNAR [64035 (CPT )] Start: 05-27-2024 End: 05-27-2024 Neuroplasty &/transposition ulnar nerve elbow DECOMPRESSION NERVE ULNAR right ulnar neuropathy 05/27/2024 7:30 AM EDT [facility] Start: 05-27-2024 End: 05-27-2024 Patient encounter procedure 05/27/2024 7:30 AM EDT Procedure Visit [facility] Rupert Bo, DO [address] [place] [address] [facility] Start: 05-27-2024 Subsequent hospital visit by physician 05/27/2024 7:30 AM EDT [facility] [address] [facility] [place] [phone] Betzy, Rupert Lyn, DO [address] [place] [address] [facility] Start: 05-24-2024 Influenza vaccination Influenza Vacc ine [facility] Start: 2017 Administration of varicella zoster vaccine Zoster (Shingles) Vaccine (1 of 2) [facility] Start: 1986 DTaP,Tdap and Td Vaccines (1 - Tdap) DTaP,Tdap and Td Vaccines (1 - Tdap) [facility] Start: 1985 Adult BMI Follow Up Plan Adult BMI Follow Up Plan [facility] Start: 1979 Depression Screening Depression Scre [facility] Start: 1967 Screening for malign ant neoplasm of colon [facility] Patient Education [facility] Work Phone: Renal function 1999 panel - Serum or Plasma [facility] Renal function 1999 panel - Serum or Plasma [facility] Payers Date Payer Category Payer Self-pay 2019 [facility] BCBS [id number] 2019 Unknown [id number] 1967 Unknown [id number] 2.16.840.1.077230.3.579.2 .593 1967 Unknown [id number] 2.16.840.1.923741.3.579.2 .593 1967 Unknown [id number] 2.16.840.1.849812.3.579.2 .593 1967 Unknown [id number] 2.16.840.1.499044.3.579.2 .593 1967 Unknown [id number] 2.16.840.1.843771.3.579.2 .593 1967 Unknown [id number] 2.16.840.1.851729.3.579.2 .1286 1967 Unknown [id number] 2.16.840.1.276119.3.579.2 .1286 1967 Unknown [id number] 2.16.840.1.736351.3.579.2 .1286 1967 Unknown [id number] 2.16.840.1.229276.3.579.2 .1286 1967 Unknown [id number] 2.16.840.1.979445.3.579.2 .1286 1967 Unknown [id number] 2.16.840.1.061946.3.579.2 .1286 1967 Unknown [id number] 2.16.840.1.775223.3.579.2 .1259 1967 Unknown [id number] 2.16.840.1.333079.3.579.2 .1259 1967 Unknown [id number] 2.16.840.1.700690.3.579.2 .1258 1967 Unknown [id number] 2.16.840.1.925650.3.579.2 .1258 1967 Unknown [id number] 2.16.840.1.474145.3.579.2 .1258 1967 Unknown [id number] 2.16.840.1.877524.3.579.2 .1258 1967 Unknown [id number] 2.16.840.1.345561.3.579.2 .1258 1967 Unknown [id number] 2.16.840.1.903273.3.579.2 .1258 1967 Unknown [id number] 2.16.840.1.552009.3.579.2 .1258 1967 Unknown [id number] 2.16.840.1.361557.3.579.2 .1258 1967 Unknown [id number] 2.16.840.1.936745.3.579.2 .1258 1967 Unknown [id number] 2.16.840.1.877848.3.579.2 .1258 1967 Unknown [id number] 2.16.840.1.547505.3.579.2 .1258 1967 Unknown [id number] 2.16.840.1.441197.3.579.2 .1258 1959 Unknown [id number] 1959 Unknown [id number] Unknown [place] BC/BS [id number] Unknown [facility] [id number] Unknown [id number] 2.16.840.1.353305.3.579.2 .531 Unknown [id number] 2.16840.1.707989.3.579.2 .531 Social History Date Type Detail Facility Start: 03-19-2024 Tobacco smoking status UTIS Current some day smoker [facility] Start: 1965 Sex Assigned At Male [facility] Start: 04-30-2024 End: 06-23-2024 Tobacco smoking status UTIS Ex-smoker (finding) [facility] History of tobacco use Current smoker [...] to any clubs or organizations such as temple groups, unions, fraternal or athletic groups, or [...] Alcohol Comment caffeine: 1-2 cups per day [facility] Start: 1965 Sex assigned at Not on file [facility] Start: 07-09-2024 End: 10-06-2024 Tobacco smoking status NHIS Never smoked tobacco (finding) [facility] Start: 10-06-2024 Sex Male (finding) [facility] History of tobacco use Cigarette Smoker [facility] Start: 04-27-2024 Alcohol Comment social/recreational [facility] Goals Date Patient Goal Desired Activity /State Clinical Notes 04-27-2024 to 10-07-2024 Pepper Sexton NP - 10/07/2024 9:40 AM Kerrie Sexton, REMBERTO - 10/07/2024 9:00 AM Kerrie Sexton NP - 10/07/2024 5:47 AM Kerrie Sexton, REMBERTO [...] kidney disease. There is no history of CAD/MS. 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 Documented By: James Elaine MD 10/06/2431 Signed By: <Electronically signed by James Elaine MD> 10/06/2432 [facility] Work Phone: 1(607) 571-710001-14-[address] [address] EGD Procedure Note Signed Patient: Abram Guillaume MR#: [id number] 4 : 1965 Acct:[id number] Age/Sex: 58 / M Adm Date: Loc: Room: Type: [facility] Attending Dr: James Elaine MD Copies to: MD Pepper Werner NP-C~ Esophagogastroduodenoscopy Date/Provider Date: 10/06/2024 James Elaine MD Procedure Findings: Procedure: EGD with biopsy Indication: 58-year-old man with history of esophagitis here for EGD to assess for Diana's Pre-operative diagnosis: History of esophagitis Post-operative diagnosis: [place]-colored mucosa in the esophagus otherwise normal EGD [...] Elaine M.D. Documented By: James Elaine MD 10/06/2432 Signed By: 10/06/2434 [facility]01-14-2025 [place] [address] Gastroenterology H&P Signed Patient: Abram Guillaume MR#: [id number] 4 : 1965 Acct:[id number] Age/Sex: 58 / M Adm Date: 5 Loc: Room: Type: [facility] Attending Dr: James Elaine MD Copies [...] Elaine M.D. Documented By: James Elaine MD 10/06/2431 Signed By: 10/06/2432 [facility]01-06-2025 History of Present illness Narrative * [...] suggestions regarding this matter. documented [facility] [id number] Procedure [facility]10-14-2024 History of Present illness Narrative* Pepper Sexton [...] scope with GI, has been off his PPI/[id number] for up coming EGD etc Continue with [...] scope with GI, has been off his PPI/[id number] for up coming EGD etc Continue with GI Essential hypertension, benign (CMS/HCC) - Primary At goal no med dose chagnes Hypothyroidism (CMS/HCC) No med dose changes Hypomagnesemia Continue with TID magnesium and fu with Nephrology Relevant Medications magnesium oxide (Mag-Ox) 400 MG tablet Obesity (BMI 30-39.9) Needs flu shot declines documented in [facility] encounterPer[facility] [id number] History of Present illness Narrative* Rupert Bo, [...] Dr. Bo/lloyd Bo D.O. documented in this [facility]09-17-2024 Telephone encounter Note* Telephone Encounter - DEBI Cho - 06/09/2024 12:22 PM EDT Spoke with patient and he will RTW tomorrow with light duty [facility] Work Phone: [phone]) 391-776409-17-2024 Miscellaneous Notes* Telephone Encounter - DEBI Cho [...] questions, if you could call him at [phone] documented in this [facility]09-17-2024 Telephone encounter Note* Telephone Encounter - DEBI Cho - 06/09/2024 12:16 PM EDT Spoke with patient and answered questions, he would like to RTW tomorrow with restrictions, spoke with Dr Bo and he said that was fine [id number] Telephone encounter Note* Telephone Encounter - Sarah Marshall - 06/09/2024 12:13 PM EDT Pt called and left vm stated he has PO questions, if you could call him at [phone] [id number] History of Present illness Narrative* Blank Mcfarlane [...] weeks, continue off work documented in this [facility]09-03-2024 Telephone encounter Note* Telephone Encounter - Tiburcio Noel NP - 05/26/2024 12:16 PM EDT Post op pain rx. PDMP reviewed [id number] Miscellaneous Notes* Telephone Encounter - Tiburcio Noel NP - 05/26/2024 12:16 PM EDT Post op pain rx. PDMP reviewed documented in this [facility]08-05-2024 Instructions* Patient Instructions* Ora Delvalle RN - 04/27/2024 8:15 AM EDT Preoperative Education Checklist- General Surgery date: 05/27/24 Surgery time: 0730 a.m. Arrival time: 0610 a.m. 1. Bring a photo ID and your insurance card with you the day of surgery. You will check in at the main lobby of the [facility]- registration desk is straight ahead as soon as you walk in. Tell them you are here for surgery. 2. If you have a Living Will/Durable Power of [employer] for [employer] Care that is not on [...] after you have bathed. 5. NO nail hungarian/acrylic on at least one finger. If you are having a hand, wrist or foot surgery then all nail hungarian and artificial/acrylic nails must be removed from [...] please call the Preadmission Testing office at [phone], Mon.-Fri. 7 a.m.-3 p.m. Leave a voicemail [...] appointment with your doctor. [facility] Miscellaneous Notes* Perioperative Nursing Note - Ora Delvalle RN - 04/27/2024 8:15 AM EDT Preoperative Education Checklist- General Surgery date: 05/27/24 Surgery time: 0730 a.m. Arrival time: 0610 a.m. 1. Bring a photo ID and your insurance card with you the day of surgery. You will check in at the main lobby of the [facility]- registration desk is straight ahead as soon as you walk in. Tell them you are here for surgery. 2. If you have a Living Will/Durable Power of [employer] for Health Care that is not on [...] after you have bathed. 5. NO nail hungarian/acrylic on at least one finger. If you are having a hand, wrist or foot surgery then all nail hungarian and artificial/acrylic nails must be removed from [...] please call the Preadmission Testing office at [phone], Mon.-Fri. 7 a.m.-3 p.m. Leave a voicemail [...] go swimming or use a hot tub ([employer]), or perform activities where your hand or [...] reviewed. Patient verbalized understanding. [facility] Nurse Note* Perioperative Nursing Note - Ora Delvalle RN - 04/27/2024 8:15 AM EDT Preoperative Education Checklist- General Surgery date: 05/27/24 Surgery time: 0730 a.m. Arrival time: 0610 a.m. 1. Bring a photo ID and your insurance card with you the day of surgery. You will check in at the main lobby of the [facility]- registration desk is straight ahead as soon as you walk in. Tell them you are here for surgery. 2. If you have a Living Will/Durable Power of [employer] In[employer] for Health Care that is not on [...] after you have bathed. 5. NO nail hungarian/acrylic on at least one finger. If you are having a hand, wrist or foot surgery then all nail hungarian and artificial/acrylic nails must be removed from [...] please call the Preadmission Testing office at [phone], Mon.-Fri. 7 a.m.-3 p.m. Leave a voicemail [...] to the follow-up appointment with your doctor. [facility] [id number] Nurse Note* Perioperative Nursing Note - Ora Delvalle RN - 04/27/2024 8:15 AM EDT Hibiclens and surgical instructions reviewed. Patient verbalized understanding. [facility] Diagnosis Onset Date Resolution Status GERD (gastroesophageal reflux disease) acute Hypomagnesemia acute Primary hypertension acute [facility] Work Phone: Evaluation note* Diagnosis Onset Date Resolution Status GERD (gastroesophageal reflux disease) acute Hypomagnesemia acute Primary hypertension acute Dyspepsia acute GERD (gastroesophageal reflux disease) acute [facility] Work Phone: Evaluation note* Diagnosis Restless legs syndrome Restless legs syndrome (RLS) documented in this encounter [facility] HealthcareEvaluation note* Diagnosis Cubital tunnel syndrome on right- Primary documented in this encounter [facility] HealthcareEvaluation note* Diagnosis Essential hypertension, benign (CMS/HCC)- Primary Essential hypertension, benign Screening for prostate cancer Special screening for malignant neoplasm of prostate Hypomagnesemia Disorders of magnesium metabolism Mixed hyperlipidemia (CMS/HCC) Mixed hyperlipidemia Hyperglycemia Other abnormal glucose Hypothyroidism, unspecified type ([facility]/HCC) Restless legs Restless legs syndrome (RLS) Fibromyalgia Unspecified myalgia and myositis Pulmonary hypertension ([facility]/HCC) Other chronic pulmonary heart diseases Restless legs syndrome Restless legs syndrome (RLS) Gastroesophageal reflux disease, unspecified whether esophagitis present Atopic dermatitis, unspecified type Gastroesophageal reflux disease, unspecified whether esophagitis present- Primary Essential hypertension, benign (CMS/HCC) Essential hypertension, benign Hypothyroidism, unspecified type ([facility]/HCC) Mixed hyperlipidemia (CMS/HCC) Mixed hyperlipidemia Hypomagnesemia Disorders of magnesium metabolism Obesity (BMI 30-39.9) Hypomagnesemia- Primary Disorders of magnesium metabolism Fibromyalgia Unspecified myalgia and myositis Atopic dermatitis, unspecified type Gastroesophageal reflux disease, unspecified whether esophagitis present Obesity (BMI 30-39.9) Essential hypertension, benign (CMS/HCC) Essential hypertension, benign Essential (primary) hypertension ([facility]/HCC)- Primary Unspecified essential hypertension Morbid (severe) obesity due to excess calories ([facility]/HCC) Body mass index (BMI) 38.0-38.9, adult [...] inoculation against influenza documented in this encounter [facility] HealthcareEvaluation note* Diagnosis Hypomagnesemia Disorders of magnesium metabolism documented in this encounter [facility] HealthcareEvaluation note* Diagnosis Essential hypertension, benign ([facility]/HCC)- Primary Essential hypertension, benign Screening for prostate cancer Special screening for malignant neoplasm of prostate Hypomagnesemia Disorders of magnesium metabolism Mixed hyperlipidemia ([facility]/HCC) Mixed hyperlipidemia Hyperglycemia Other abnormal glucose Hypothyroidism, unspecified type ([facility]/HCC) Restless legs Restless legs syndrome (RLS) Fibromyalgia Unspecified myalgia and myositis Pulmonary hypertension ([facility]/HCC) Other chronic pulmonary heart diseases Restless legs syndrome Restless legs syndrome (RLS) Gastroesophageal reflux disease, unspecified whether esophagitis present Atopic dermatitis, unspecified type Gastroesophageal reflux disease, unspecified whether esophagitis present- Primary Essential hypertension, benign ([facility]/HCC) Essential hypertension, benign Hypothyroidism, unspecified type ([facility]/HCC) Mixed hyperlipidemia ([facility]/HCC) Mixed hyperlipidemia Hypomagnesemia Disorders of magnesium metabolism Obesity (BMI 30-39.9) Hypomagnesemia- Primary Disorders of magnesium metabolism Fibromyalgia Unspecified myalgia and myositis Atopic dermatitis, unspecified type Gastroesophageal reflux disease, unspecified whether esophagitis present Obesity (BMI 30-39.9) Essential hypertension, benign (CMS/HCC) Essential hypertension, benign Essential (primary) hypertension ([facility]/HCC)- Primary Unspecified essential hypertension Morbid (severe) obesity due to excess calories ([facility]) Body mass index (BMI) 38.0-38.9, adult [...] of magnesium metabolism documented in this encounter [facility] HealthcareEvaluation note* Diagnosis Essential hypertension, benign [...] myalgia and myositis documented in this encounter [facility] HealthcareEvaluation note* Diagnosis Essential hypertension, benign [...] of magnesium metabolism documented in this encounter [facility] HealthcareEvaluation noteNo assessment information availableL[facility] Work Phone: Evaluation note* Diagnosis Essential [...] Morbid (severe) obesity due to excess calories ([facility]/HCC) Body mass index (BMI) 38.0-38.9, adult Obesity (BMI 30-39.9) Cigarette nicotine dependence without complication Gastroesophageal reflux disease, unspecified whether esophagitis present Hypomagnesemia Disorders of magnesium metabolism Pre-operative clearance- Primary Unspecified pre-operative examination Hypomagnesemia Disorders of magnesium metabolism Restless legs syndrome Restless legs syndrome (RLS) COPD with acute exacerbation ([facility]) Chronic bronchitis, unspecified chronic bronchitis type (CMS/HCC) [...] Disorders of magnesium metabolism Essential hypertension, benign ([facility]/HCC)- Primary Essential hypertension, benign Morbid (severe) obesity due to excess calories ([facility]/HCC) Gastro-esophageal reflux disease without esophagitis Body [...] of magnesium metabolism documented in this encounter [facility] HealthcareEvaluation note* Diagnosis Essential hypertension, benign [...] SystemHistory and physical note Author James Elaine [facility] July 09, 2024 1:12pm Note Date/Time July 09, 2024 1 :12pm [facility] [address] [place] [address] Gastroenterology H&P Signed Patient: Abram Guillaume MR#: [id number] 4 : 1965 Acct:[id number] Age/Sex: 58 / M Adm Date: 4 Loc: Room: Type: [facility] Attending Dr: James Elaine MD Copies [...] signed by James Elaine MD> 07/09/24 1312 [facility] Work Phone: Hospital Discharge instructions Additional [...] -Continue omeprazole 40 mg daily -Office number [phone]. [facility] Work Phone: Summary Purpose Family History Relationship [...] ECG 12 lead Rupert Bo DO [address] [place] [address] Referral ID Status Reason Start Date Expiration Date V isits Requested Visits Authorized [id number] Pending Review 04/23/2024 04/23/2025 1 1 Additional Source Comments (unrecognized sect ion and content) No Status Records FoundNo Status Records FoundNo Status Records FoundNo Status Records FoundNo Status Records Found INFORMATION SOURCE (unrecogn ized section and content) DATE CREATED AUTHOR 05/18/2022 [facility] DATE CREATED AUTHOR AUTHOR'S ORGANIZ ATION 07/22/2022 [facility] DATE CREATED AUTHOR AUTHOR'S ORGANIZ ATION 05/28/2024 [facility] DATE CREATED AUTHOR AUTHOR'S ORGANIZ ATION 10/10/2024 [facility] EPIC DATE CREATED AUTHOR AUTHOR'S ORGANIZ ATION 10/16/2024 [facility] Care Teams (unrecognized sec [...] June 23, 2024 End: June 23, 2024 Warm In Worker Relationship Specialty Start Date End Date Anastacio Hinojosa MD [address] [place] [phone] PCP - General Family Medicine 11/26/23 Pepper Sexton NP [address] [place] [phone] PCP - [employer] [employer] 04/23/24 Pepper Sexton NP [address] [place] [phone] Nurse Practitioner Family Medicine 11/26/23 Team Status: Inactive Member Role Status Dates Pepper Sexton Primary Care Provider Active Sta rt: June 24, 2024 End: June 24, 2024 Dav Swanson APRN Attending Provider Active Start: June 24, 2024 End: June 24, 2024 Warm In Worker Relationship Specialty Start Date End Date Anastacio Hinojosa MD [address] [place] [phone] PCP - General Family Medicine 11/26/23 Pepper Sexton NP [address] [place] [phone] PCP - [employer] 04/23/24 Pepper Sexton NP [address] [place] [phone] Nurse Practitioner Family Medicine 11/26/23 Warm In Worker Relationship Specialty Start Date End Date Anastacio Hinojosa MD [address] [place] [phone] PCP - General Family Medicine 11/26/23 Pepper Sexton NP [address] [place] [phone] PCP - [employer] 04/23/24 Pepper Sexton NP [address] [place] [address] Nurse Practitioner Family Medicine 11/26/23 Warm In Worker Relationship Specialty Start Date End Date Anastacio Hinojosa MD [address] [place] [phone] PCP - General Family Medicine 11/26/23 Pepper Sexton NP [address] [place] [phone] PCP - [employer] 04/23/24 Pepper Sexton NP [address] [place] [address] Nurse Practitioner Family Medicine 11/26/23 Warm In Worker Relationship Specialty Start Date End Date Anastacio Hinojosa MD [address] [place] [phone] PCP - General Family Medicine 11/26/23 Pepper Sexton NP [address] [place] [phone] PCP - [employer] 04/23/24 Pepper Sexton NP [address] [place] [address] Nurse Practitioner Family Medicine 11/26/23 Warm In Worker Relationship Specialty Start Date End Date Anastacio Hinojosa MD [address] [place] [phone] PCP - General Family Medicine 11/26/23 Pepper Sexton NP [address] [place] [phone] PCP - [employer] 04/23/24 Pepper Sexton NP [address] [place] [phone] Nurse Practitioner Family Medicine 11/26/23 Team Status: Inactive Member Role Status Dates Pepper Herrerapricillajemal Primary Care Provider Active Sta rt: July 09, 2024 End: July 09, 2024 James Elaine MD Attending Provider Active Start: July 09, 2024 End: July 09, 2024 Team Status: Active Member Role Status Dates Pepper Herrerapricillajemal Primary Care Provider Active Sta rt: July 09, 2024 James Elaine MD Attending Provider, Other Provider Active Start: July 09, 2024 Warm In Worker Relationship Specialty Start Date End Date Anastacio Hinojosa MD [address] [place] [phone] PCP - General Family Medicine 11/26/23 Pepper Sexton NP [address] [place] [phone] PCP - [employer] 04/23/24 Pepper Sexton NP [address] [place] [phone] Nurse Practitioner Family Medicine 11/26/23 Warm In Worker Relationship Specialty Start Date End Date Anastacio Hinojosa MD [address] [place] [address] PCP - General Family Medicine 11/26/23 Pepper Sexton NP [address] [place] [phone] PCP - [employer] 04/23/24 Pepper Sexton NP [address] [place] [address] Nurse Practitioner Family Medicine 11/26/23 Warm In Worker Relationship Specialty Start Date End Date Anastacio Hinojosa MD [address] [place] [address] PCP - General Family Medicine 11/26/23 Pepper Sexton NP [address] [place] [address] PCP - [employer] 04/23/24 Pepper Sexton NP [address] [place] [address] Nurse Practitioner Family Medicine 11/26/23 Warm In Worker Relationship Specialty Start Date End Date Anastacio Hinojosa MD [address] [place] [address] PCP - General Family Medicine 11/26/23 Pepper Sexton NP [address] [place] [address] Nurse Practitioner Family Medicine 11/26/23 Warm In Worker Relationship Specialty Start Date End Date Anastacio Hinojosa MD [address] [place] [phone] PCP - General Family Medicine 11/26/23 Pepper Sexton NP [address] [place] [phone] PCP - [employer] 04/23/24 Pepper Sexton NP [address] [place] [address] Nurse Practitioner Family Medicine 11/26/23 Warm In Worker Relationship Specialty Start Date End Date Anastacio Hinojosa MD [address] [place] [phone] PCP - General Family Medicine 11/26/23 Pepper Sexton NP [address] [place] [phone] PCP - [employer] 04/23/24 Pepper Sexton NP [address] [place] [address] Nurse Practitioner Family Medicine 11/26/23 Team Status: [...] Other Provider Active Start: October 06, 2024 Warm In Worker Relationship Specialty Start Date End Date Anastacio Hinojosa MD [address] [place] [phone] PCP - General Family Medicine 11/26/23 Pepper Sexton NP [address] [place] [phone] PCP - [employer] 04/23/24 Pepper Sexton NP [address] [place] [address] Nurse Practitioner Family Medicine 11/26/23 Warm In Worker Relationship Specialty Start Date End Date Anastacio Hinojosa MD [address] [place] [phone] PCP - General Family Medicine 11/26/23 Pepper Sexton NP [address] [place] [address] PCP - [employer] 04/23/24 Pepper Sexton NP [address] [place] [address] Nurse Practitioner Family Medicine 11/26/23 Warm In Worker Relationship Specialty Start Date End Date Anastacio Hinojosa MD [address] [place] [address] PCP - General Family Medicine 11/26/23 Pepper Sexton NP [address] [place] [address] PCP - [employer] 04/23/24 Pepper Sexton NP [address] [place] [address] Nurse Practitioner Family Medicine 11/26/23 Warm In Worker Relationship Specialty Start Date End Date Anastacio Hinojosa MD [address] [place] [address] PCP - General Family Medicine 11/26/23 Pepper Sexton NP [address] [place] [address] PCP - [employer] 04/23/24 Pepper Sexton NP [address] [place] [address] Nurse Practitioner Family Medicine 11/26/23 Warm In Worker Relationship Specialty Start Date End Date Anastacio Hinojosa MD [address] [place] [address] PCP - General Family Medicine 11/26/23 Pepper Sexton NP [address] [place] [address] PCP - [employer] 04/23/24 Pepper Sexton NP [address] [place] [address] Nurse Practitioner Family Medicine 11/26/23 Warm In Worker Relationship Specialty Start Date End Date Anastacio Hinojosa MD [address] [place] [address] PCP - General Family Medicine 11/26/23 Pepper Sexton NP [address] [place] [address] PCP - [facility] 04/23/24 Pepper Sexton NP [address] [place] [address] Nurse Practitioner Family Medicine 11/26/23 Warm In Worker Relationship Specialty Start Date End Date Pepper Sexton APRN-STAFF RN [address] [place] [address] PCP - General Nurse Practitioner 05/10/22 Goals [...] BE BASED ON THE PRIMARY CLINICAL RECORDS. [employer] [facility]. provides no warranty or guarantee of the accuracy or completeness of information in this document.
[2024-11-26 10:10] LABS: Basophils Absolute Auto 0.1 10^3/uL (0.0-0.1); Basophils Percent Auto 0.8 % (0.2-2.0); Eosinophils Absolute Auto 0.5 10^3/uL (0.0-0.7); Eosinophils Percent Auto 6.2 % (0.9-7.0); Hemoglobin 13.6 g/dL (14.0-18.0); Immature Granulocytes Abs Auto 0.03 10^3/uL (0.00-0.03); Immature Granulocytes Pct Auto 0.3 % (0.0-0.5); Lymphocytes Absolute Auto 1.8 10^3/uL (1.2-3.8); Mean Corpuscular HGB Conc 32.4 g/dL (29.9-35.2); Mean Corpuscular Hemoglobin 31.1 pg (25.9-34.0); Mean Corpuscular Volume 95.9 fL (80.0-94.0); Mean Platelet Volume 9.6 fL (9.5-13.5); Monocytes Absolute Auto 0.5 10^3/uL (0.3-0.8); Monocytes Percent Auto 6.1 % (1.7-12.0); Neutrophils Absolute Auto 5.8 10^3/uL (1.4-6.5); Neutrophils Percent Auto 65.6 % (43.0-75.0); Platelet Count 306 10^3/uL (150-450); Red Blood Count 4.38 10^6/uL (4.70-6.10); Red Cell Distribution Width 13.7 % (11.0-15.0); White Blood Count 8.8 10^3/uL (4.0-11.0)
== END 2024-11-26 09:53 | disposition home or self-care (01) ==
LOC: LAB 09:55
PROVIDERS: PCP Nurse Practitioner
DX: H02.009 Unspecified entropion of unspecified eye, unspecified eyelid (principal)
CPT/HCPCS: 36415; 85025

== ENCOUNTER 2025-02-07 11:35 | Inpatient (IN) | payer BC, SELFPAY ==
[2025-02-07] VITALS (25 sets, daily range): BP systolic 91–105; BP diastolic 61–74; PULSE 85–100; TEMP 36.6–37.3; O2SAT 91–100; BMI 34.4
--- OUTSIDE RECORDS SUMMARY | 2025-02-07 11:42 | XMS_ITS | CCD ---
Author Organization [facility] Care Team Providers Care Telecommunications Network Engineer Name Role Phone AICHHOLZ, HOSPICE ART THERAPIST PEPPER Primary Care Unavailable AICHHOLZ, HOSPICE ART THERAPIST PEPPER Consulting Unavailable AICHHOLZ, HOSPICE ART THERAPIST PEPPER Attending Unavailable AICHHOLZ, HOSPICE ART THERAPIST PEPPER Admitting Unavailable AICHHOLZ, HOSPICE ART THERAPIST PEPPER Consulting Unavailable AICHHOLZ, HOSPICE ART THERAPIST PEPPER Attending Unavailable AICHHOLZ, HOSPICE ART THERAPIST PEPPER Admitting Unavailable AICHHOLZ, HOSPICE ART THERAPIST PEPPER Primary Care Unavailable AICHHOLZ, HOSPICE ART THERAPIST PEPPER Primary Care Unavailable DR CRIS GAN V Consulting Unavailable AICHHOLZ, HOSPICE ART THERAPIST PEPPER Attending Unavailable AICHHOLZ, HOSPICE ART THERAPIST PEPPER Admitting Unavailable AICHHOLZ, HOSPICE ART THERAPIST PEPPER Consulting Unavailable AICHHOLZ, HOSPICE ART THERAPIST PEPPER Primary Care Unavailable AICHHOLZ, HOSPICE ART THERAPIST PEPPER Consulting Unavailable AICHHOLZ, HOSPICE ART THERAPIST PEPPER Attending Unavailable AICHHOLZ, HOSPICE ART THERAPIST PEPPER Admitting Unavailable AICHHOLZ, HOSPICE ART THERAPIST PEPPER Primary Care Unavailable AICHHOLZ, HOSPICE ART THERAPIST PEPPER Consulting Unavailable AICHHOLZ, HOSPICE ART THERAPIST PEPPER Attending Unavailable AICHHOLZ, HOSPICE ART THERAPIST PEPPER Admitting Unavailable AICHHOLZ, PEPPER J Referring [...] Ashish CARTAGENA, Anastacio Primary Care Provider Aichholz NETWORK SOLUTIONS ARCHITECT, Pepper Unavailable Aichholz NETWORK SOLUTIONS ARCHITECT, Pepper Unavailable Aichholz, Pepper J Primary Care Provider [phone] MD James Elaine Attending Provider Pepper Sexton Primary Care Provider [phone] James Elaine MD Attending Provider Pepper Sexton Primary Care Unavailable Asaad, Imad Attending Unavailable Asaad, Imad Admitting Unavailable Asaad, Imad Admitting Unavailable Pepper Sexton Primary Care Unavailable Asaad, Imad Attending Unavailable Pepper Hoffmann Primary Care Provider Pepper Sexton Primary Care Provider [phone] James Elaine MD Attending Provider KARUNA CARRANZA Attending Unavailable PEPPER SEXTON Attending Unavailable BLANK MCFARLANE Attending Unavailable KARUNA CARRANZA Referring Unavailable RUPERT BO Attending Unavailable PEPPER SEXTON Attending Unavailable PEPPER SEXTON Attending Unavailable RUPERT BO Attending Unavailable PEPPER SEXTON Attending Unavailable PEPPER SEXTON Referring Unavailable BLANK MCFARLANE Attending Unavailable RUPERT BO Attending Unavailable PEPPER SEXTON Attending Unavailable PEPPER SEXTON Attending Unavailable PEPPER SEXTON Attending Unavailable Medications Current Medications Medication Drug Class(es) Dates Sig (Normalized) Sig (Original) acetaminophen 325 mg / HYDROcodone bitartrate 5 mg oral tablet (1 source) Opioid Agonist Start: 05-26-2024 End: 05-29-2024 take 1 tablet by mouth every six hours for pain HYDROcodone-aceta minophen ([place]) 5-325 MG tablet Indications: Post-operative pain Take 1 tablet by mouth every 6 (six) hours if needed for severe pain for up to 3 days 12 tablet 05/26/2024 05/29/2024 Active [id number] 200 actuat albuterol 0.09 mg/actuat metered dose inhaler (20 sources) beta2-Adrenergic Agonist Start: 03-19-2024 take 1 puff(s) by inhalation every six hours as needed for wheezing Albuterol Sulfate 90 mcg/actuation HFA aerosol inhaler Active 2 PUFF INHALATION Every 6 hours as needed for shortness of breath or wheezing March 19, 2024 12:00am Start: 03-06-2024 take 2 puff(s) by in [...] (20 sources) Dihydropyridine Calcium Channel Linnea Start: 12-14-2024 End: 03-14-2025 take 1 tablet by mouth once daily amLODIPine (Norvasc) 10 MG tablet Indications: Essential hypertension, benign (CMS/HCC) Take 1 tablet (10 mg) by mouth Daily 90 tablet 12/14/2024 03/14/2025 Active Start: 03-18-2024 End: 12-05-2024 take 1 tablet by mouth once daily Amlodipine 10 mg tablet Active 10 MG PO Daily March 19, 2024 12:00am 60 actuat budesonide 0.16 mg/actuat / formoterol fumarate 0.0045 mg/actuat metered dose inhaler (20 sources) Corticosteroid, beta2-Adrenergic Agonist Start: 06-23-2024 take 1 puff(s) by inhalation twice daily as needed for wheezing Budesonide-Formoterol 160-4.5 mcg/actuation HFA aerosol inhaler Active 2 PUFF INHALATION Twice daily as needed for shortness of breath or wheezing June 23, 2024 12:00am Start: 05-04-2024 End: 11-06-2024 take 2 puff(s) [...] Twice daily as needed March 19, 2024 9:38am June 23, 2024 10:39am Start: 08-02-2022 take 2 puff(s) by in halation in the morning budesonide-formoteroL (SYMBICORT) 80-4.5 mcg/actuation inhaler Indications: Mild persistent asthma without complication Inhale 2 puffs in the morning and 2 puffs before bedtime. 10.2 g 12 08/02/2022 Active cloNIDine hydrochloride 0.1 mg oral tablet (6 sources) Central alpha-2 Adrenergic Agonist Start: 03-19-2024 take 1 tablet by mouth twice daily Clonidine Hcl 0.1 mg tablet Active 0.1 MG PO Twice daily 60 March 19, 2024 12:00am doxepin hydrochloride 10 mg/ml oral solution (20 sources) Tricyclic Antidepressant Start: 09-15-2024 End: 04-06-2025 take 10 mg by mouth at bedtime doxepin (SINEquan) 10 MG/ML solution Indications: Fibromyalgia Take 10 mL (100 mg) by mouth at bedtime 900 mL 1 01/06/2025 04/06/2025 Active Start: 03-19-2024 take 1 capsule by mo [facility] once daily at bedtime Doxepin 100 mg capsule Active 100 MG PO Daily at bedtime March 19, 2024 12:00am Start: 03-11-2024 End: 06-09-2024 take 10 mg [...] tablet (20 sources) l-Thyroxine Start: 10-08-2024 End: 03-14-2025 take 1 tablet by mouth before mealtime levothyroxine (Synthroid, Levoxyl) 112 MCG tablet Indications: Hypothyroidism, unspecified type (CMS/HCC) Take 1 tablet (112 mcg) by mouth in the morning. Take before meals. 90 tablet 12/14/2024 03/14/2025 Active Start: 03-18-2024 End: 12-05-2024 take 1 tablet by mouth once daily Levothyroxine 100 mcg tablet Active 100 MCG PO Daily March 19, 2024 12:00am take 4 tablets by mo ut in the morning levothyroxine (SYNTHROID, LEVOTHROID) 25 MCG tablet Take 4 tablets (100 mcg total) by mouth in the morning. Active magnesium glycinate 100 mg oral tablet (3 sources) Start: 12-07-2024 take 1 capsule by mouth in the morning, then take 1 capsule by mouth in the evening, then take 1 capsule by mouth at bedtime Magnesium Glycinate 100 MG capsule Take 100 mg by mouth in the morning and 100 mg in the evening and 100 mg before bedtime. 12/07/2024 Active Magnesium Glycinate 100 mg magnesium capsule (1 source) Start: 12-02-2024 take 1 capsule by mouth three times daily Magnesium Glycinate 100 mg magnesium capsule Active 100 MG PO Three times daily December 02, 2024 12:00am magnesium oxide 500 mg oral tablet (20 [...] 1 11/04/2024 02/02/2025 Active Start: 03-19-2024 End: 12-02-2024 take 1 tablet by mouth three times daily Magnesium Oxide 400 mg (241.3 mg magnesium) tablet Discontinued 400 MG PO Three times daily March 19, 2024 9:39am December 02, 2024 2:07pm Start: 03-19-2024 End: 03-19-2024 take 1 tablet by mouth twice daily Magnesium Oxide 400 mg (241.3 mg magnesium) tablet Discontinued 400 MG PO Twice daily March 19, 2024 12:00am March 19, 2024 9:41am Magnesium Sulfate In Water 4 gram/100 mL (4 %) piggyback (1 source) Start: 11-24-2024 Magnesium Sulf ate In Water 4 gram/100 mL (4 %) piggyback Active 4 GM IV Once November 24, 2024 1:00am administer over 2-4 hrs meloxicam 15 mg oral tablet (20 sources) Nonsteroidal Anti-inflammatory Drug Start: 06-18-2024 take 1 tablet by mouth once daily meloxicam (Mobic) 15 MG tablet Indications: Degenerative disc disease, cervical TAKE 1 TABLET BY MOUTH EVERY DAY 90 tablet 4 06/18/2024 Active Start: 03-29-2022 End: 09-22-2024 take 1 tablet by mouth once daily Meloxicam 15 mg tablet Discontinued 15 MG PO Daily March 19, 2024 12:00am September 22, 2024 8:17am montelukast 10 mg oral tablet (20 sources) Leukotriene Receptor Antagonist Start: 03-18-2024 End: 12-05-2024 take 1 tablet by mouth at bedtime montelukast (Singulair) 10 MG tablet Indications: Atopic dermatitis, unspecified type Take 1 tablet (10 mg) by mouth at bedtime 90 tablet 1 09/06/2024 Active Naltrexone (12 sources) Opioid Antagonist Start: 03-19-2024 take 1 capsule by mouth once daily Naltrexone 4.5 mg capsule Active 4.5 MG PO .QD March 19, 2024 9:40am Start: 03-19-2024 take 1 capsule by mo uth once daily Naltrexone 4.5 mg capsule Active 4.5 MG PO .QD March 19, 2024 8:40am Start: 03-19-2024 take 4.5 mg by mouth once dominique y Naltrexone Active 4.5 MG PO .QD March 19, 2024 9:40am Start: 03-19-2024 End: 03-19-2024 Naltrexone 4.5 mg capsule Discontinued MG PO March 19, 2024 12:00am March 19, 2024 9:41am Start: 03-19-2024 End: 03-19-2024 Naltrexone 4.5 mg capsule Discontinued MG PO March 18, 2024 11:00pm March 19, 2024 8:41am Start: 03-19-2024 End: 03-19-2024 Naltrexone Discontinued MG P O March 19, 2024 12:00am March 19, 2024 9:41am nebivolol 10 mg oral tablet (20 sources) Start: 12-14-2024 End: 03-14-2025 take 1 tablet by mouth once daily nebivolol (Bystolic) 10 MG tablet Indications: Essential hypertension, benign (CMS/HCC) Take 1 tablet (10 mg) by mouth Daily 90 tablet 12/14/2024 03/14/2025 Active Start: 03-18-2024 End: 12-05-2024 take 1 tablet by mouth once daily Nebivolol 10 mg tabl et Active 10 MG PO Daily March 19, 2024 12:00am take 1 tablet by alaina th in the morning nebivoloL (BYSTOLIC) 5 mg tablet Take 1 tablet (5 mg total) by mouth in the morning. Active omeprazole 40 mg delayed release oral capsule (20 sources) Proton Pump Inhibitor Start: 12-14-2024 End: 03-14-2025 take 1 capsule by mouth before mealtime omeprazole (PriLOSEC) [address] capsule Indications: Gastroesophageal reflux disease, unspecified whether esophagitis present Take 1 capsule (40 mg) by mouth in the morning. Take before meals. Do not crush or chew.. 90 capsule 12/14/2024 03/14/2025 Active Start: 07-09-2024 End: 12-05-2024 take 1 capsule by mouth twice daily Omeprazole 40 mg capsule,delayed release(DR/EC) Active 40 MG PO Twice daily 180 July 09, 2024 1:22pm Start: 06-23-2024 End: 06-24-2024 Omeprazole 40 mg capsule,del ayed release(DR/EC) Discontinued 40 MG PO Every 72 hours June 23, 2024 12:00am June 24, 2024 8:41am Start: 03-19-2024 End: 07-09-2024 take 1 capsule by mouth once daily Omeprazole 40 mg capsule,delayed release(DR/EC) Discontinued 40 MG PO Daily June 24, 2024 8:41am July 09, 2024 1:23pm take 1 capsule by [facility] in the morning omeprazole (PriLOSEC) 40 mg [...] by mouth Daily 90 tablet 1 10/07/2024 Active Completed/Discontinued Medications Medication Drug Class(es) Dates Sig (Normalized) Sig (Original) famotidine 20 mg oral tablet (20 sources) Histamine-2 Receptor Antagonist Start: 05-04-2024 End: 09-22-2024 take 2 tablets by mouth twice daily in the morning, then take 1 tablet by mouth twice daily in the evening Famotidine (Pepcid) 20 mg tablet Discontinued 0 PO Twice daily June 23, 2024 10:37am September 22, 2024 8:16am 40mg in am, 20 mg in pm orally twice daily; Start: 03-19-2024 End: 06-23-2024 take 1 tablet by mouth twice daily Famotidine (Pepcid) 20 mg tablet Discontinued 20 MG PO Twice daily 180 March 23, 2024 5:47pm June 23, 2024 10:40am take 2 tablets by mo uth in [...] asthma, uncomplicated] Onset: 08-02-2022 08-02-2022 Chronic Chronic kidney disease (5 sources) Chronic kidney disease stage 3A ; Translations: [Chronic kidney disease, stage 3a (HCC)] Onset: 01-06-2025 01-06-2025 Chronic Chronic obstructive pulmonary disease and bronchiectasis [...] disease, unspecified] Onset: 05-10-2022 11-26-2023 Chronic Other connective tissue disease (20 sources) Fibromyalgia; Translations: [Fibromyalgia] Onset: 08-19-2023 08-19-2023 Episodic Other hereditary and degenerative nervous system conditions [...] Chronic Other nutritional; endocrine; and metabolic disorders (6 sources) Hypomagnesemia; Translations: [Disorders of magnesium metabolism] Onset: 12-28-2021 03-19-2024 Chronic Other nutritional; endocrine; and metabolic disorders (20 sources) Hypomagnesemia; Translations: [Hypomagnesemia] Onset: 08-19-2023 03-19-2024 Chronic Other nutritional; endocrine; and metabolic disorders (20 sources) Body mass index 30+ - obesity; Translations: [Obesity, unspecified] Onset: 02-26-2024 Resolved: 10-07-2024 02-26-2024 Chronic Other nutritional; endocrine; and metabolic disorders (16 sources) Obesity caused by energy imbalance; Translations: [Morbid (severe) obesity due to excess calories] Onset: 10-07-2024 10-07-2024 Chronic Other screening for suspected conditions (not mental disorders or infectious disease) (20 sources) Encounter for screening for malignant neoplasm of prostate; Translations: [Cardiovascular stress test abnormal] Onset: 07-22-2022 08-19-2023 Episodic Pulmonary heart disease (20 sources) Pulmonary hypertension; [...] dependence, unspecified, uncomplicated] Onset: 08-19-2023 08-19-2023 Chronic Substance-related disorders (20 sources) Marijuana user; Translations: [Cannabis use, unspecified, uncomplicated] Onset: 11-26-2023 11-26-2023 Episodic Thyroid disorders (20 sources) Hypothyroidism, unspecified; Translations: [...] Onset: 12-25-2021 Episodic Gastroduodenal ulcer (except hemorrhage) (18 sources) Acute gastric ulcer without hemorrhage AND [...] Translations: [Other acute postprocedural pain] 05-26-2024 Episodic Residual codes; unclassified (20 sources) Orthopedic hardware in situ; Translations: [Presence of other specified devices] Onset: 11-26-2023 11-26-2023 Episodic Spondylosis; intervertebral disc disorders; other back problems (20 sources) Cervical radiculopathy; Translations: [Radiculopathy, cervical region] Onset: 11-26-2023 11-26-2023 Episodic Syncope (6 sources) Syncope and collapse; Translations: [Syncope and collapse] Onset: 12-15-2021 Episodic Results Test Name Value Interpretation Reference Range Facility ALL CBC WITH AUTO DIFFon BASOPHILS ABSOLUTE AUTO 0.1 [facility] Basophils/100 WBC (Bld) 0.8 % 0.2 - 2.0 % [facility] Eosinophils/100 WBC (Bld) 6.2 % 0.9 - 7.0 % [facility] Erythrocyte distribution width (RBC) [Ratio] 13.7 % 11.0 - 15.0 % [facility] Hematocrit (Bld) [Volume fraction] 42 % 42.0 - 54.0 % [facility] Hemoglobin (Bld) [Mass/Vol] 13.6 g/dL Low 14.0 - 18.0 g/dL [facility] IMMATURE GRANULOCYTES ABS AUTO 0.03 [facility] Immature granulocytes/100 WBC (Bld) 0.3 % 0.0 - 0.5 % [facility] Interpretation and review of laboratory results Abnormal [facility] LYMPHOCYTES ABSOLUTE AUTO 1.8 [facility] Lymphocytes/100 WBC (Bld) 21 % 20.5 - 60.0 % [facility] MCH (RBC) [Entitic mass] 31.1 pg 25.9 - 34.0 pg [facility] MCHC (RBC) [Mass/Vol] 32.4 g/dL 29.9 - 35.2 g/dL [facility] MCV (RBC) [Entitic vol] 95.9 fL High 80.0 - 94.0 fL [facility] MONOCYTES ABSOLUTE AUTO 0.5 [facility] Monocytes/100 WBC (Bld) 6.1 % 1.7 - 12.0 % [facility] NEUTROPHILS ABSOLUTE AUTO 5.8 [facility] Neutrophils/100 WBC (Bld) 65.6 % 43.0 - 75.0 % [facility] Platelet mean volume (Bld) [Entitic vol] 9.6 fL 9.5 - 13.[address] [facility] EO # 0.5 [facility] PLT 306 [facility] RBC 4.[address] [facility] WBC 8.8 [facility] ALL MAGNESIUMon 11-24-2024 Interpretation and review of laboratory results Abnormal [facility] Magnesium [Mass/Vol] 1.1 mg/dL Low 1.8 - 2 .4 mg/dL [facility] Laboratory - Chemistry and C hemistry - challengeon 11-24-2024 Magnesium [Mass/Vol] 1.1 mg/dL Low 1.8-2.4 [facility] ALL MAGNESIUMon 11-05-2024 Interpretation and review of laboratory results Abnormal [facility] Magnesium [Mass/Vol] 0.7 mg/dL Critically low 1.8 - 2.4 mg/dL [facility] Comment on above: RESULTS CALLED TO EZEQUIEL BOOTH MA AT OFFICE BY Violeta Gold at 1056 [facility] ALL MAGNESIUMon 10-07-2024 Interpretation and review of laboratory results Abnormal [facility] Magnesium [Mass/Vol] 0.8 mg/dL Critically low 1.8 - 2.4 mg/dL [facility] Comment on above: RESULTS CALLED TO [facility] THYROID STIM HORMONEon 0 10-07-2024 TSH Qn 2.054 m[IU]/L [facility] HbA1c (Bld) [Mass fraction]o n 10-07-2024 Interpretation and review of laboratory results Normal [facility] - Hematology and Cell countson 10-07-2024 HbA1c (Bld) [Mass fraction] 5.60 % [facility] No Panel Informationon 10-07 [facility] Amphetamine Screen Ql (U)Ord ered By: James Elaine on 10-06-2024 Amphetamines Ql (U) Amphetamines screen Negativ e [facility] Barbiturates [Presence] in U rine by Screen methodOrdered By: James Elaine on 10-06-2024 Barbiturates Screen Ql (U) Barbiturates [Presence] in Urine by Screen method Negative [facility] Benzodiazepines Screen Ql (U )Ordered By: James Elaine on 10-06-2024 Benzodiazepines Ql (U) Benzodiazepines [Presence] in Urine by Screen method Negative [facility] Benzoylecgonine [Presence] i n Urine by Screen methodOrdered By: Imad Asaad on 10-06-2024 Benzoylecgonine Screen Ql (U) Benzoylecgonine [Presence] in Urine by Screen method Negative [facility] Cannabinoids [Presence] in U rine by Screen methodOrdered By: Imrosalie Asarosalie on 10-06-2024 Cannabinoids Screen Ql (U) Cannabinoids [Presence] in Urine by Screen method High Negative [facility] Comment on above: These are unconfirme d results and should not be used for legal purposes. Drug Cut-Off Concentration: AMPH 1000 ng/mL MAX 200 ng/mL JUHI 200 ng/mL COCM 300 ng/mL OP 300 ng/mL PCP 25 ng/mL THC 20 ng/mL Drug Screen,Urineon 10-06-19 Amphetamine Screen,Urine Negative Normal Negative [facility] Comment on above: Performed By: #### U RDS #### [address] Barbiturate Screen,Urine Negative Normal Negative [facility] Comment on above: Performed By: #### U RDS #### [facility] [address] [place] [address] [place] Benzodiazepines Screen,Urine Negative Normal Negative [facility] Comment on above: Performed By: #### U RDS #### [facility] [address] [place] [address] [place] Cannabinoid Screen,Urine Positive High Negative [facility] Comment on above: Result Comment: Thes e are unconfirmed results and should not be used for legal purposes. Drug Cut-Off Concentration: AMPH 1000 ng/mL MAX 200 ng/mL JUHI 200 ng/mL COCM 300 ng/mL OP 300 ng/mL PCP 25 ng/mL THC 20 ng/mL PERFORMED BY: [place] [address] PATHOLOGIST [employer] STRAIGHTENER JAN GRIMES M.D. Performed By: #### U RDS #### [facility] [address] Cocaine Screen,Urine Negative Normal Negative [facility] Comment on above: Performed By: #### U RDS #### [facility] [address] [place] [address] Opiate Screen,Urine Negative Normal Negative [facility] Comment on above: Performed By: #### U RDS #### [address] Phencyclidine Screen,Urine Negative Normal Negative [facility] Comment on above: Performed By: #### U RDS #### [address] Luciano 10-06-2024 L Specimen: [id number] Received: 10/06/24 Status: SAHIL Ruiz Num: [id number] Spec Type: Surgical Subm Dr: James Elaine MD Tissues: A Esophagus Biopsy (ESOPHAGUS BX R/O BARRETTS) Procedures: HE/2, Gross/Micro L4 Age/ Patient Sex Location Account Attending Physician Abram Guillaume 58/M [id number] James Elaine MD SPEC NUM: [id number] RECD: 10/06/24 STATUS: SAHIL RUIZ NUM: [id number] PHILLIP: 10/06/[address] [facility] [address]: James Elaine MD ENTERED: 10/06/24 [facility] DR: SPEC TYPE: Surgical DEPT: S ENTERED BY: [id number] RECV BY: [id number] ORDERED: HE/2, Gross/Micro L4 ORDERED: HE/2, Gross/Micro L4 Pathological Diagnosis Esophagus, biopsy: - Glandular mucosa with no significant histopathology. - No squamous epithelium present. - No evidence of intestinal metaplasia/Diana's type mucosa identified. Clinical Information Esophagitis, esophageal ulcer, gastritis, rule out Diana's. Gross Description Received in formalin labeled with the patients name, date of , and esophagus BX is a pale alevs, focally erythematous, feathery, 0.3 cm in greatest dimension tissue bit. The specimen is entirely submitted in a single cassette. (1, ns, [id number]) Microscopic Description Microscopic examination is performed. Specimen: [id number] Received: 10/06/24 Status: SAHIL Ruiz Num: [id number] Spec Type: Surgical Subm Dr: James Elaine MD Tissues: A Esophagus Biopsy (ESOPHAGUS BX R/O BARRETTS) Procedures: Trent MARIEE L4 Patient: Abram Guillaume [id number] (Continued) Specimen: [id number] Received: 10/06/24 (Continued) Signed (signature on file) Sandro Baird MD 10/07/24 1009 Specimen: [id number] Received: 10/06/24 Status: SAHIL Ruiz Num: [id number] Spec Type: Surgical Subm Dr: James Elaine MD Tissues: A Esophagus Biopsy (ESOPHAGUS BX R/O BARRETTS) Procedures: Twila MARIEE/Matt L4 Patient: Abram Guillaume [id number] (Continued) Specimen: S2 Received: 10/06/24 (Continued) CPT Codes 44480 Specimen: S2 Received: 10/06/24 Status: SAHIL Ruiz Num: [id number] Spec Type: Surgical Subm Dr: James Elaine MD Tissues: A Esophagus Biopsy (ESOPHAGUS BX R/O BARRETTS) Procedures: HE/2, Gross/Micro L4 Patient: Abram Guillaume [id number] (Continued) Signed (signature on file) Sandro Baird MD 10/07/24 1009 Normal [facility] Opiates [Presence] in Urine by Screen methodOrdered By: James Elaine on 10-06-2024 Opiates Screen Ql (U) Opiates [Presence] in Urine by Screen method Negative [facility] Phencyclidine Screen Ql (U)O rdered By: James Elaine on 10-06-2024 Phencyclidine Ql (U) Phencyclidine [Presence] in Urine by Screen method Negative [facility] ALL BASIC METABOLIC PANELon 09-28-2024 Anion gap [Moles/Vol] 14.1 mmol/L [facility] Calcium [Mass/Vol] 8.3 mg/dL Low 8.5 - 10. 1 mg/dL [facility] Chloride [Moles/Vol] 104 mmol/L 98 - 10 7 mmol/L [facility] CO2 [Moles/Vol] 28.4 mmol/L 21.0 - 32.0 mmol/L [facility] Creatinine [Mass/Vol] 1.61 mg/dL High 0.70 - 1.30 mg/dL [facility] GFR/1.73 sq M.predicted CKD-EPI (S/P/Bld) [Vol rate/Area] 54 Low >=60 mL/min/1.73m 2 [facility] Glucose [Mass/Vol] 137 mg/dL High 74 - 106 mg/dL [facility] Potassium [Moles/Vol] 3.5 mmol/L 3.5 - 5.1 mmol/L [facility] Sodium [Moles/Vol] 143 mmol/L 136 - 145 mmol/L [facility] EGFR-NON AF [place] 45 Low >=60 mL/min/1.73m 2 [facility] Urea nitrogen [Mass/Vol] 17 mg/dL 7.0 - 18.0 mg/dL [facility] Urea nitrogen/Creatinine [Mass ratio] 10.6 mg/mg [facility] ALL MAGNESIUMon 09-28-2024 Magnesium [Mass/Vol] 0.8 mg/dL Critically low 1.8 - 2.4 mg/dL [facility] Comment on above: RESULTS CALLED TO ELIZABETH SEXTON NP No Panel Informationon 09-28 Interpretation and review of laboratory results Abnormal [facility] Amphetamine Screen Ql (U)Ord ered By: ad Asa on 07-09-2024 Amphetamines Ql (U) Amphetamines screen Negativ e [facility] Amphetamines Ql (U) Negative Negative [facility] Barbiturates [Presence] in U rine by Screen methodOrdered By: Imad Asaad on 07-09-2024 Barbiturates Screen Ql (U) Negative Negative [facility] Barbiturates Screen Ql (U) Barbiturates [Presence] in Urine by Screen method Negative [facility] Benzodiazepines Screen Ql (U )Ordered By: Imad Asaad on 07-09-2024 Benzodiazepines Ql (U) Negative Negative [facility] Benzodiazepines Ql (U) Benzodiazepines [Presence] in Urine by Screen method Negative [facility] Benzoylecgonine [Presence] i n Urine by Screen methodOrdered By: Imad Asaad on 07-09-2024 Benzoylecgonine Screen Ql (U) Negative Negative [facility] Benzoylecgonine Screen Ql (U) Benzoylecgonine [Presence] in Urine by Screen method Negative [facility] Cannabinoids [Presence] in U rine by Screen methodOrdered By: Imad Asaad on 07-09-2024 Cannabinoids Screen Ql (U) Negative Negative [facility] Comment on above: These are unconfirme d results and should not be used for legal purposes. Drug Cut-Off Concentration: AMPH 1000 ng/mL MAX 200 ng/mL JUHI 200 ng/mL COCM 300 ng/mL OP 300 ng/mL PCP 25 ng/mL THC 20 ng/mL Cannabinoids Screen Ql (U) Cannabinoids [Presence] in Urine by Screen method Negative [facility] Comment on above: These are unconfirme d results and should not be used for legal purposes. Drug Cut-Off Concentration: AMPH 1000 ng/mL MAX 200 ng/mL JUHI 200 ng/mL COCM 300 ng/mL OP 300 ng/mL PCP 25 ng/mL THC 20 ng/mL Drug Screen,Urineon 07-09-20 Amphetamine Screen,Urine Negative Normal Negative [facility] Comment on above: Performed By: #### U RDS #### [address] Barbiturate Screen,Urine Negative Normal Negative [facility] Comment on above: Performed By: #### U RDS #### [address] Benzodiazepines Screen,Urine Negative Normal Negative [facility] Comment on above: Performed By: #### U RDS #### [address] Cannabinoid Screen,Urine Negative Normal Negative [facility] Comment on above: Result Comment: Thes e are unconfirmed results and should not be used for legal purposes. Drug Cut-Off Concentration: AMPH 1000 ng/mL MAX 200 ng/mL JUHI 200 ng/mL COCM 300 ng/mL OP 300 ng/mL PCP 25 ng/mL THC 20 ng/mL PERFORMED BY: [place] [address] PATHOLOGIST [employer] ZUHAIR KAUR M.D. Performed By: #### U RDS #### [address] Cocaine Screen,Urine Negative Normal Negative [facility] Comment on above: Performed By: #### U RDS #### [place] [address] [place] Opiate Screen,Urine Negative Normal Negative [facility] Comment on above: Performed By: #### U RDS #### [address] Phencyclidine Screen,Urine Negative Normal Negative [facility] Comment on above: Performed By: #### U RDS #### [facility] [address] No Panel InformationOrdered By: James Elaine on 07-09-2024 Miscellaneous Pathology Test See comment [facility] Comment on above: See report. Scanned copy available in EMR. Opiates [Presence] in Urine by Screen methodOrdered By: Imad Asaad on 07-09-2024 Opiates Screen Ql (U) Negative Negative [facility] Opiates Screen Ql (U) Opiates [Presence] in Urine by Screen method Negative [facility] Pathology Request for Lab Co rpon 07-09-2024 Pathology Request for Lab Itzel Normal [facility] Comment on above: Order Comment: PATHO LOGY GI SPECIMEN Result Comment: See report. Scanned copy available in EMR. PERFORMED BY: [place] [address] PATHOLOGIST [employer] ZUHAIR KAUR M.D. Performed By: #### P ATH TO [facility] #### [address] Phencyclidine Screen Ql (U)O rdered By: James Elaine on 07-09-2024 Phencyclidine Ql (U) Negative Negative [facility] Phencyclidine Ql (U) Phencyclidine [Presence] in Urine by Screen method Negative [facility] ALL MAGNESIUMon 06-23-2024 Magnesium [Mass/Vol] 1.5 mg/dL Low 1.8 - 2 .4 mg/dL [facility] ALL RENAL FUNCTION PANELon 1 Albumin [Mass/Vol] 3.3 g/dL Low 3.4 - 5.0 g/dL [facility] Anion gap [Moles/Vol] 12.6 mmol/L NO [facility] Calcium [Mass/Vol] 8.7 mg/dL 8.5 - 10. 1 mg/dL [facility] Chloride [Moles/Vol] 104 mmol/L 98 - 10 7 mmol/L [facility] CO2 [Moles/Vol] 26.1 mmol/L 21.0 - 32.0 mmol/L [facility] Creatinine [Mass/Vol] 1.72 mg/dL High 0.70 - 1.30 mg/dL [facility] GFR/1.73 sq M.predicted CKD-EPI (S/P/Bld) [Vol rate/Area] 50 Low 60 - PINF [facility] Glucose [Mass/Vol] 114 mg/dL High 74 - 106 mg/dL [facility] Phosphate [Mass/Vol] 3.2 mg/dL 2.6 - 4 .7 mg/dL [facility] Potassium [Moles/Vol] 4.7 mmol/L 3.5 - 5.1 mmol/L [facility] Sodium [Moles/Vol] 138 mmol/L 136 - 145 mmol/L [facility] EGFR-NON AF [place]OU[place] 41 Low 60 - PINF [facility] Urea nitrogen [Mass/Vol] 30.0 mg/dL High 7.0 - 18.0 mg/dL [facility] Urea nitrogen/Creatinine [Mass ratio] 17.4 mg/mg [facility] ALL URIC ACIDon 06-23-2024 Urate [Mass/Vol] 8.0 mg/dL High 3.5 - 7.2 mg/dL [facility] Estimated glomerular filtrat ion rate (GFR) non- Americanon 06-23-2024 GFR/1.73 sq M.predicted among non-blacks MDRD (S/P/Bld) [Vol rate/Area] 41 mL/min/{1.73_m2} Low >=60 [facility] Laboratory - Chemistry and C hemistry - challengeon 06-23-2024 Albumin [Mass/Vol] 3.3 g/dL Low 3.4-5.0 [facility] Calcium [Mass/Vol] 8.7 mg/dL 8.5-10.1 [facility] Chloride [Moles/Vol] 104 mmol/L 98-107 [facility] CO2 [Moles/Vol] 26.1 mmol/L 21.0-32.[address] [facility] Creatinine [Mass/Vol] 1.72 mg/dL High 0.70-1.30 [facility] GFR/1.73 sq M.predicted MDRD (S/P/Bld) [Vol rate/Area] 50 mL/min/{1.73_m2} Low >=60 [facility] Glucose [Mass/Vol] 114 mg/dL High 74-106 [facility] Magnesium [Mass/Vol] 1.5 mg/dL Low 1.8-2.4 [facility] Potassium [Moles/Vol] 4.7 mmol/L 3.5-5.1 [facility] Sodium [Moles/Vol] 138 mmol/L 136-145 [facility] Urate [Mass/Vol] 8.0 mg/dL High 3.5-7.[address] [facility] Urea nitrogen [Mass/Vol] 30.0 mg/dL High 7.0-18.0 [facility] Urea nitrogen/Creatinine [Mass ratio] 17.4 mg/mg [facility] Laboratory - Urinalysison Protein (U) [Mass/Vol] 12.6 mg/dL High <=11.9 [facility] No Panel Informationon 06-23 Urine Random Creatinine 78.13 mg/dL 20.00-300.00 [facility] Interpretation and review of laboratory results Abnormal [facility] Phosphorus Level 3.2 mg/dL 2.6-4.[address] [facility] Serum or plasma anion gap de terminationon 06-23-2024 Anion gap [Moles/Vol] 12.6 mmol/L [facility] Urine protein/creatinine rat ioon 06-23-2024 Protein/Creatinine (U) [Ratio] 0.16 [facility] BASIC METABOLIC PANLon 04-27 Anion gap [Moles/Vol] 9 mmol/L Normal 5-15 [facility] Comment on above: Performed By: #### B MP #### [facility] ([id number]) [address], [address] [place] [address] Calcium [Mass/Vol] 9.5 mg/dL Normal 8.5-10.5 [facility] Comment on above: Performed By: #### B MP #### [facility] ([id number]) [address] [place] [address] Chloride [Moles/Vol] 105 mmol/L Normal 98-109 [facility] Comment on above: Performed By: #### B MP #### [facility] ([id number]) [address], [address] [place] [address] CO2 [Moles/Vol] 25 mmol/L Normal 22-32 [facility] Comment on above: Performed By: #### B MP #### [facility] ([id number]) [address], [address] [place] [address] Creatinine [Mass/Vol] 1.60 mg/dL High 0.60-1.30 [facility] Comment on above: Result Comment: METH OD TRACEABLE TO IDMS STANDARD Performed By: #### B MP #### [facility] ([id number]) [address] [place] [address] GFR/1.73 sq M.predicted among non-blacks MDRD (S/P/Bld) [Vol rate/Area] 50 mL/min/{1.73_m2} Low >59 [facility] Comment on above: Result Comment: Reported eGFR is based on the CKD-EPI 2020 equation that does not use a race coefficient. Performed By: #### B MP #### [facility] ([id number]) [address] [place] [address] Glucose [Mass/Vol] 104 mg/dL High 65-99 [facility] Comment on above: Performed By: #### B MP #### [facility] ([id number]) [address] [place] [address] Potassium [Moles/Vol] 4.2 mmol/L Normal 3.5-5.0 [facility] Comment on above: Performed By: #### B MP #### [facility] ([id number]) [address] [place] [address] Sodium [Moles/Vol] 139 mmol/L Normal 134-146 [facility] Comment on above: Performed By: #### B MP #### [facility] ([id number]) [address] [place] [address] Urea nitrogen [Mass/Vol] 31 mg/dL High 5-23 [facility] Comment on above: Performed By: #### B MP #### [facility] ([id number]) [address] [place] [address] Basic Metabolic Panelon 080 Anion gap [Moles/Vol] 9 mmol/L 5 - 15 mmol/L [facility] Calcium [Mass/Vol] 9.5 mg/dL 8.5 - 10. 5 mg/dL [facility] Chloride [Moles/Vol] 105 mmol/L 98 - 10 9 mmol/L [facility] CO2 [Moles/Vol] 25 mmol/L 22 - 32 mmol/L [facility] Creatinine [Mass/Vol] 1.60 mg/dL High 0.60 - 1.30 mg/dL [facility] Comment on above: METHOD TRACEABLE TO IDSD STANDARD eGFR (CKD-EPI)non-race dependent 50 Low - PINF [facility] Comment on above: Reported eGFR is based on the CKD-EPI 2020 equation that does not use a race coefficient. Glucose [Mass/Vol] 104 mg/dL High 65 - 99 mg/dL [facility] Interpretation and review of laboratory results Abnormal [facility] Potassium [Moles/Vol] 4.2 mmol/L 3.5 - 5.0 mmol/L [facility] Sodium [Moles/Vol] 139 mmol/L 134 - 146 mmol/L [facility] Urea nitrogen [Mass/Vol] 31 mg/dL High 5 - 23 mg/dL [facility] CBC AUTO DIFFon 07-19-2022 BASO # 0.1 103/ul Normal 0.0-0.1 [facility] Comment on above: Performed By: #### C BC #### [facility] [address] [address] [address] Lavonne Tinoco Basophils/100 WBC (Bld) 0.9 % Normal 0.2-2.0 [facility] Comment on above: Performed By: #### C BC #### [facility] [address] [place] [address] Dr. Lavonne Tinoco EO # 0.4 103/ul Normal 0.0-0.7 [facility] Comment on above: Performed By: #### C BC #### [facility] [address] [place] [address] Dr. Lavonne Tinoco Eosinophils/100 WBC (Bld) 4.5 % Normal 0.9-7.0 [facility] Comment on above: Performed By: #### C BC #### [facility] [address] [place] [address] Dr. Lavonne Tinoco Erythrocyte distribution width (RBC) [Ratio] 13.4 % Normal 11.0-15.0 [facility] Comment on above: Performed By: #### C BC #### [facility] [address] [place] [address] Dr. Lavonne Tinoco Hematocrit (Bld) [Volume fraction] 45.0 % Normal 42.0-54.0 [facility] Comment on above: Performed By: #### C BC #### [facility] [address] [place] [address] Dr. Lavonne Tinoco Hemoglobin (Bld) [Mass/Vol] 15.1 g/dL Normal 14.0-18.0 [facility] Comment on above: Performed By: #### C BC #### [facility] [address] [place] [address] Dr. Lavonne Tinoco IG # 0.04 10e3/ul Critically high 0.00-0.03 [facility] Comment on above: Performed By: #### C BC #### [facility] [address] [place] [address] Dr. Lavonne Tinoco IG % 0.4 % Normal 0.0-0.5 [facility] Comment on above: Performed By: #### C BC #### [facility] [address] [place] [address] Dr. Lavonne Tinoco LYMPH # 2.0 103/ul Normal 1.2-3.8 [facility] Comment on above: Performed By: #### C BC #### [facility] [address] [address] [address] Lavonne Tinoco Lymphocytes/100 WBC (Bld) 21.6 % Normal 20.5-60.0 [facility] Comment on above: Performed By: #### C BC #### [facility] [address] [address] [address] Lavonne Tinoco MANUAL DIFF REQ NO Normal [facility] Comment on above: Performed By: #### C BC #### [facility] [address] [place] [address] Dr. Lavonne Tinoco MCH (RBC) [Entitic mass] 32.7 pg Normal 25.9-34.0 [facility] Comment on above: Performed By: #### C BC #### [facility] [address] [place] [address] Dr. Lavonne Tinoco MCHC (RBC) [Mass/Vol] 33.6 g/dL Normal 29.9-35.2 [facility] Comment on above: Performed By: #### C BC #### [facility] [address] [place] [address] Dr. Lavonne Tinoco MCV (RBC) [Entitic vol] 97.4 fL Critically high 80.0-94.0 [facility] Comment on above: Performed By: #### C BC #### [facility] [address] [place] [address] Dr. Lavonne Tinoco MONO # 0.6 103/ul Normal 0.3-0.8 [facility] Comment on above: Performed By: #### C BC #### [facility] [address] [place] [address] Dr. Lavonne Tinoco Monocytes/100 WBC (Bld) 6.0 % Normal 1.7-12.0 [facility] Comment on above: Performed By: #### C BC #### [facility] [address] [place] [address] Dr. Lavonne Tinoco NEUT # 6.3 103/ul Normal 1.4-6.5 [facility] Comment on above: Performed By: #### C BC #### [facility] [address] [address] [address] Lavonne Tinoco Neutrophils/100 WBC (Bld) 66.6 % Normal 43.0-75.0 [facility] Comment on above: Performed By: #### C BC #### [facility] [address] [address] [address] Lavonne Tinoco Platelet mean volume (Bld) [Entitic vol] 10.7 fL Normal 9.5-13.5 [facility] Comment on above: Performed By: #### C BC #### [facility] [address] [address] [address] Lavonne Tinoco PLT 300 103/ul Normal 150-450 [facility] Comment on above: Performed By: #### C BC #### [facility] [address] [place] [address] Dr. Lavonne Tinoco RBC 4.62 106/ul Critically low 4.70-6.[address] [facility] Comment on above: Performed By: #### C BC #### [facility] [address] [address] [address] Lavonne Tinoco WBC 9.4 103/ul Normal 4.0-11.0 [facility] Comment on above: Performed By: #### C BC #### [facility] [address] [place] [address] Dr. Lavonne Tinoco FREE T4on 07-19-2022 Free T4 [Mass/Vol] 0.90 ng/dL Normal 0.76-1.46 [facility] Comment on above: Performed By: #### C MP, TSH, LIPID #### [facility] [address] [address] [address] Lavonne Tinoco LIPID PROFILEon 07-19-2022 CHOL-HDL RATIO NORM SEE BELOW Normal [facility] Comment on above: Result Comment: 3.3 - 4.4 LOW RISK 4.4 - 7.1 AVERAGE RISK 7.1 - 11.0 MODERATE RISK >11.0 HIGH RISK Performed By: #### C MP, TSH, LIPID #### [facility] [address] [address] [address] Lavonne Tinoco Cholesterol [Mass/Vol] 207 mg/dL Critically high <=200 [facility] Comment on above: Performed By: #### C MP, TSH, LIPID #### [facility] [address] [address] [address] Lavonne Tinoco Cholesterol in HDL [Mass/Vol] 37 mg/dL Critically low 40-60 [facility] Comment on above: Performed By: #### C MP, TSH, LIPID #### [facility] [address] [address] [address] Lavonne Tinoco Cholesterol in LDL [Mass/Vol] 143.8 mg/dL Normal [facility] Comment on above: Performed By: #### C MP, TSH, LIPID #### [facility] [address] [address] [address] Lavonne Tinoco Cholesterol.total/Chol esterol in HDL [Mass ratio] 5.6 {ratio} Normal [facility] Comment on above: Performed By: #### C MP, TSH, LIPID #### [facility] [address] [address] [address] Lavonne Tinoco HDL NORMAL > or = 60 mg/dl - LOW CARDIOVASCULAR RISK <40 mg/dl - HIGH CARDIOVASCULAR RISK Normal [facility] Comment on above: Performed By: #### C MP, TSH, LIPID #### [facility] [address] [address] [address] Lavonne Tinoco LDL CALC NORMAL SEE BELOW Normal [facility] Comment on above: Result Comment: <100 mg/dl OPTIMAL 100 - 129 mg/dl NEAR OR ABOVE OPTIMAL 130 - 159 mg/dl BORDERLINE HIGH 160 - 189 mg/dl HIGH >190 mg/dl VERY HIGH Performed By: #### C MP, TSH, LIPID #### [facility] [address] [address] [address] Lavonne Tinoco Triglyceride [Mass/Vol] 131 mg/dL Normal <=150 [facility] Comment on above: Performed By: #### C MP, TSH, LIPID #### [facility] [address] [address] [address] Lavonne Tinoco VLDL CALC 26.2 mg/dL Normal [facility] Comment on above: Performed By: #### C MP, TSH, LIPID #### [facility] [address] [place] [address] Dr. Lavonne Tinoco PROF 14(COMP METB)on 022 Albumin [Mass/Vol] 3.6 g/dL Normal 3.4-5.0 [facility] Comment on above: Performed By: #### C MP, TSH, LIPID #### [facility] [address] [place] [address] Dr. Lavonne Tinoco Albumin/Globulin [Mass ratio] 1.0 {ratio} Normal [facility] Comment on above: Performed By: #### C MP, TSH, LIPID #### [facility] [address] [place] [address] Dr. Lavonne Tinoco ALP [Catalytic activity/Vol] 85 U/L Normal 46-116 [facility] Comment on above: Performed By: #### C MP, TSH, LIPID #### [facility] [address] [place] [address] Dr. Lavonne Tinoco ALT [Catalytic activity/Vol] 33 U/L Normal 16-63 [facility] Comment on above: Performed By: #### C MP, TSH, LIPID #### [facility] [address] [place] [address] Dr. Lavonne Tinoco Anion gap [Moles/Vol] 9.2 mmol/L Normal [facility] Comment on above: Performed By: #### C MP, TSH, LIPID #### [facility] [address] [place] [address] Dr. Lavonne Tinoco AST [Catalytic activity/Vol] 17 U/L Normal 15-37 [facility] Comment on above: Performed By: #### C MP, TSH, LIPID #### [facility] [address] [place] [address] Dr. Lavonne Tinoco Bilirubin [Mass/Vol] 0.5 mg/dL Normal 0.2-1.0 [facility] Comment on above: Performed By: #### C MP, TSH, LIPID #### [facility] [address] [place] [address] Dr. Lavonne Tinoco Calcium [Mass/Vol] 8.5 mg/dL Normal 8.5-10.1 [facility] Comment on above: Performed By: #### C MP, TSH, LIPID #### [facility] [address] [place] [address] Dr. Lavonne Tinoco Chloride [Moles/Vol] 106 mmol/L Normal 98-107 [facility] Comment on above: Performed By: #### C MP, TSH, LIPID #### [facility] [address] [place] [address] Dr. Lavonne Tinoco CO2 [Moles/Vol] 31.3 mmol/L Normal 21.0-32.0 [facility] Comment on above: Performed By: #### C MP, TSH, LIPID #### [facility] [address] [place] [address] Dr. Lavonne Tinoco Creatinine [Mass/Vol] 1.06 mg/dL Normal 0.70-1.30 [facility] Comment on above: Performed By: #### C MP, TSH, LIPID #### [facility] [address] [place] [address] Dr. Lavonne Tinoco EGFR-AF SOU[place]OREAN >60 Normal >=60 [facility] Comment on above: Performed By: #### C MP, TSH, LIPID #### [facility] [address] [place] [address] Dr. Lavonne Tinoco EGFR-NON AF [place] >60 Normal >=60 [facility] Comment on above: Performed By: #### C MP, TSH, LIPID #### [facility] [address] [place] [address] Dr. Lavonne Tinoco Globulin (S) [Mass/Vol] 3.6 g/dL Normal [facility] Comment on above: Performed By: #### C MP, TSH, LIPID #### [facility] [address] [place] [address] Dr. Lavonne Tinoco Glucose [Mass/Vol] 101 mg/dL Normal 74-106 [facility] Comment on above: Performed By: #### C MP, TSH, LIPID #### [facility] [address] [place] [address] Dr. Lavonne Tinoco Potassium [Moles/Vol] 3.5 mmol/L Normal 3.5-5.1 [facility] Comment on above: Performed By: #### C MP, TSH, LIPID #### [facility] [address] [address] [address] Lavonne Tinoco Protein [Mass/Vol] 7.2 g/dL Normal 6.4-8.2 [facility] Comment on above: Performed By: #### C MP, TSH, LIPID #### [facility] [address] [address] [address] Lavonne Tinoco Sodium [Moles/Vol] 143 mmol/L Normal 136-145 [facility] Comment on above: Performed By: #### C MP, TSH, LIPID #### [facility] [address] [place] [address] Dr. Lavonne Tinoco Urea nitrogen [Mass/Vol] 21.0 mg/dL Critically high 7.0-18.0 [facility] Comment on above: Performed By: #### C MP, TSH, LIPID #### [facility] [address] [place] [address] Dr. Lavonne Tinoco Urea nitrogen/Creatinine [Mass ratio] 19.8 mg/mg Normal [facility] Comment on above: Performed By: #### C MP, TSH, LIPID #### [facility] [address] [place] [address] Dr. Lavonne Tinoco TSHon 07-19-2022 TSH 1.947 uIU/mL Normal 0.358-3.740 [facility] Comment on above: Performed By: #### C MP, TSH, LIPID #### [facility] [address] [place] [address] Dr. Lavonne Tinoco UA RANDOM W/MICROSCOPICon BACTERIA NONE SEEN Normal NONE SEEN [facility] Comment on above: Performed By: #### U AMIC #### [facility] [address] [place] [address] Dr. Lavonne Tinoco Bilirubin Ql (U) Negative Normal NEGATIVE [facility] Comment on above: Performed By: #### U AMIC #### [facility] [address] [address] [address] Lavonne Tinoco CAST NONE SEEN Normal NONE SEEN [facility] Comment on above: Performed By: #### U AMIC #### [facility] [address] [address] [address] Lavonne Tinoco Clarity (U) CLEAR Normal CLEAR [facility] Comment on above: Performed By: #### U AMIC #### [facility] [address] [place] [address] Dr. Lavonne Tinoco Color (U) YELLOW Normal YELLOW [facility] Comment on above: Performed By: #### U AMIC #### [facility] [address] [place] [address] Dr. Lavonne Tinoco Crystals LM Nom (Urine sed) NONE SEEN Normal NONE SEEN [facility] Comment on above: Performed By: #### U AMIC #### [facility] [facility] [address] [place] [address] Dr. Lavonne Tinoco Epithelial cells LM Ql (Urine sed) FEW Abnormal NONE SEEN /RARE The [facility] Comment on above: Performed By: #### U AMIC #### [facility] [address] [place] [address] Dr. Lavonne Tinoco Glucose Ql (U) Negative Normal NEGATIVE The [facility] Comment on above: Performed By: #### U AMIC #### [facility] [address] [place] [address] Dr. Lavonne Tinoco Hemoglobin Ql (U) Negative Normal NEGATIVE The [facility] Comment on above: Performed By: #### U AMIC #### [facility] [address] [place] [address] Dr. Lavonne Tinoco Ketones Ql (U) Negative Normal NEGATIVE The [facility] Comment on above: Performed By: #### U AMIC #### [facility] [address] [place] [address] Dr. Lavonne Tinoco LEUKOCYTES TRACE Abnormal NEGATIVE The [facility] Comment on above: Performed By: #### U AMIC #### [facility] [address] [place] [address] Dr. Lavonne Tinoco MUCOUS NONE SEEN Normal NONE SEEN [facility] Comment on above: Performed By: #### U AMIC #### [facility] [address] [address] [address] Lavonne Tinoco Nitrite Ql (U) Negative Normal NEGATIVE The [facility] Comment on above: Performed By: #### U AMIC #### [facility] [address] [address] [address] Lavonne Tinoco pH (U) 6.0 [pH] Normal 5-9 The [facility] Comment on above: Performed By: #### U AMIC #### [facility] [address] [address] [address] Lavonne Tinoco RBC NONE SEEN Abnormal 0-2 [facility] Comment on above: Performed By: #### U AMIC #### [facility] [address] [place] [address] Dr. Lavonne Tinoco SPEC GRAVITY 1.020 Normal 1.005-<=1.025 The [facility] Comment on above: Performed By: #### U AMIC #### [facility] [address] [place] [address] Dr. Lavonne Tinoco UA PROTEIN TRACE Normal NEGATIVE/ TRACE The [facility] Comment on above: Performed By: #### U AMIC #### [facility] [address] [place] [address] Dr. Lavonne Tinoco Urobilinogen Qn (U) 2.0 {Erick'U}/dL Abnormal 0.2 - 1. 0 The [facility] Comment on above: Performed By: #### U AMIC #### [facility] [address] [place] [address] Dr. Lavonne Tinoco WBC 0-2 Abnormal NONE SEEN The [facility] Comment on above: Performed By: #### U AMIC #### [facility] [address] [place] [address] Dr. Lavonne Tinoco NM STRESS/REST MULTIon 04-04 NM STRESS/REST MULTI Patient: ARBAM GUILLAUME Exam Date: 04/04/2022 : 1965 Gender:M Ordering : ROSI SEXTON CNP Admission #: [id number] Family : Order #: [id number] CLICK HERE TO VIEW EXAM RADIOLOGY REPORT [...] Gan MD on 04/04/2022 at 13:16 Normal [facility] ECHOCARDIO M/2D COMPLETEon 0 02-27-2022 ECHOCARDIO M/2D COMPLETE Patient: ABRAM GUILLAUME Exam Date: 02/27/2022 : 1965 Gender:M Ordering : ROSI PEPPER SEXTON [facility] Admission #: [id number] Family : Order #: [id number] CLICK HERE TO VIEW EXAM ECHOCARDIOGRAM REPORT [...] Area(A4C): 21.60 cm2 Left Atrium Systolic Volume(A2C): 62819 mm3 Left Atrium Systolic Volume(A4C): 13500 mm3 Mitral Valve MV E to A [...] Peck M.D. on 02/28/2022 at 11:52 Normal [facility] ANKLE LEFT 3 Son 2 ANKLE LEFT 3 S [facility] Department of Radiology [address] [place] [address] Patient Name: ABRAM GUILLAUME : 1965 [...] Weight Bearing?: Y Exam: ANKLE LEFT 3 [facility] ANKLE LEFT 3 [facility] 01/11/2022 9:13 AM CLINICAL INDICATIONS: [id number] [...] above Electronically signed: Violeta Jay. Transcribed by: [email or web address], User Resident: Electronically Signed by: VIOLETA JAY @ 01/12/2022 03:24 PM Normal The [facility] Comment on above: Order Comment: Views (X-RAY, ANKLE): AP, Lateral, Mortise , Weight Bearing?: Y GLYCOHEMOGLOBIN A1Con 2021 ADA RECOMMENDATION ADA THERAPEUTIC TARGET 6.0 - 7.0 ACTION SUGGESTED > 7.0 Normal [facility] Comment on above: Performed By: #### A 1C #### [facility] [address] [place] [address] Dr. Lavonne Tinoco Glucose [Mass/Vol] 100 mg/dL Normal The [facility] Comment on above: Performed By: #### A 1C #### [facility] [address] [address] [address] Lavonne Tinoco HbA1c (Bld) [Mass fraction] 5.1 % Normal <=6.0 [facility] Comment on above: Performed By: #### A 1C #### [facility] [address] [address] [address] Lavonne Tinoco MAGNESIUMon 12-25-2021 Magnesium [Mass/Vol] 1.7 mg/dL Normal 1.6-2.3 [facility] Comment on above: Performed By: #### M G, BMP #### [facility] [address] [address] [address] Lavonne Tinoco PROF CHEM 8 (BAS METB)on Anion gap [Moles/Vol] 12.3 mmol/L Normal Th [facility] Comment on above: Performed By: #### M G, BMP #### [facility] [address] [place] [address] Dr. Lavonne Tinoco Calcium [Mass/Vol] 8.7 mg/dL Normal 8.5-10.1 [facility] Comment on above: Performed By: #### M G, BMP #### [facility] [address] [place] [address] Dr. Lavonne Tinoco Chloride [Moles/Vol] 107 mmol/L Normal 98-107 [facility] Comment on above: Performed By: #### M G, BMP #### [facility] [address] [place] [address] Dr. Lavonne Tinoco CO2 [Moles/Vol] 27.4 mmol/L Normal 22.0-30.0 [facility] Comment on above: Performed By: #### M G, BMP #### [facility] [address] [place] [address] Dr. Lavonne Tinoco Creatinine [Mass/Vol] 1.50 mg/dL Critically high 0.66-1.25 [facility] Comment on above: Performed By: #### M G, BMP #### [facility] [address] [place] [address] Dr. Lavonne Tinoco EGFR-AF [place]ORE[place] 59 mL/min/1.73m2 Critically low >=60 [facility] Comment on above: Performed By: #### M G, BMP #### [facility] [address] [place] [address] Dr. Lavonne Tinoco EGFR-NON AF [place] 49 mL/min/1.73m2 Critically low >=60 [facility] Comment on above: Performed By: #### M G, BMP #### [facility] [address] [place] [address] Dr. Lavonne Tinoco Glucose [Mass/Vol] 103 mg/dL Normal 74-106 [facility] Comment on above: Performed By: #### M G, BMP #### [facility] [address] [place] [address] Dr. Lavonne Tinoco Potassium [Moles/Vol] 3.7 mmol/L Normal 3.4-5.0 [facility] Comment on above: Performed By: #### M G, BMP #### [facility] [address] [address] [address] Lavonne Tinoco Sodium [Moles/Vol] 143 mmol/L Normal 137-145 [facility] Comment on above: Performed By: #### M G, BMP #### [facility] [address] [address] [address] Lavonne Tinoco Urea nitrogen [Mass/Vol] 17.0 mg/dL Normal 7.0-18.0 [facility] Comment on above: Performed By: #### M G, BMP #### [facility] [address] [address] [address] Lavonne Tinoco Urea nitrogen/Creatinine [Mass ratio] 11.3 mg/mg Normal [facility] Comment on above: Performed By: #### M G, BMP #### [facility] [address] [address] [address] 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 Phone: [facility] 01-06-2025 09:06-0400 Body mass index (BMI) [Ratio] 40.46 kg/m2 Pepper Sexton [employer] Work Phone: [facility] 01-06-2025 09:06-0400 Body temperature 97.81 [degF] Pepper Sexton [employer] Work Phone: [facility] 01-06-2025 09:06-0400 Body weight 124.29 kg Pepper Sexton [employer] Work Phone: [facility] 01-06-2025 09:06-0400 Diastolic blood pressure 82 mm[Hg] Pepper Sexton [employer] Work Phone: [facility] 01-06-2025 09:06-0400 Heart rate 91 /min Pepper Aichholz [employer] Work Phone: [facility] 01-06-2025 09:06-0400 Respiratory rate 18 /min Pepper Aichholz [employer] Work Phone: [facility] 01-06-2025 09:06-0400 SaO2% (BldA) [Mass fraction] 93 % Pepper Aichholz [employer] Work Phone: [facility] 01-06-2025 09:06-0400 Systolic blood pressure 140 mm[Hg] Pepper Aichholz [employer] Work Phone: [facility] 12-02-2024 13:45-0400 Body height 175.26 cm Pepper Aichholz Work Phone: [facility] 12-02-2024 13:45-0400 Body mass index (BMI) [Ratio] 41 kg/m2 Pepper Aichholz Work Phone: [facility] 12-02-2024 13:45-0400 Body weight 126.09 kg Pepper Aichholz Work Phone: [facility] 12-02-2024 13:45-0400 Diastolic blood pressure 73 mm[Hg] Pepper Aichholz Work Phone: [facility] 12-02-2024 13:45-0400 Heart rate 89 /min Pepper Aichholz Work Phone: [facility] 12-02-2024 13:45-0400 Respiratory rate 18 /min Pepper Aichholz Work Phone: [facility] 12-02-2024 13:45-0400 SaO2% (BldA) [Mass fraction] 95 % Pepper Aichholz Work Phone: [facility] 12-02-2024 13:45-0400 Systolic blood pressure 122 mm[Hg] Pepper Aichholz Work Phone: [facility] 10-07-2024 09:05-0500 Body height 175.3 cm Pepper Aichholz [employer] Work Phone: [facility] 10-07-2024 09:05-0500 Body mass index (BMI) [Ratio] 41.47 kg/m2 Pepper Rojelioholz [employer] Work Phone: [facility] 10-07-2024 09:05-0500 Body temperature 97.81 [degF] Pepper Javierhholz [employer] Work Phone: [facility] 10-07-2024 09:05-0500 Body weight 127.37 kg Pepper Javierhholz [employer] Work Phone: [facility] 10-07-2024 09:05-0500 Diastolic blood pressure 84 mm[Hg] Pepper Aichholz [employer] Work Phone: [facility] 10-07-2024 09:05-0500 Heart rate 92 /min Pepper Aichholz [employer] Work Phone: [facility] 10-07-2024 09:05-0500 Respiratory rate 22 /min Pepper Aichholz [employer] Work Phone: [facility] 10-07-2024 09:05-0500 SaO2% (BldA) [Mass fraction] 96 % Pepper Javierhholz [employer] Work Phone: [facility] 10-07-2024 09:05-0500 Systolic blood pressure 138 mm[Hg] Pepper Aichholz [employer] Work Phone: [facility] 10-06-2024 09:05-0500 Diastolic blood pressure 86 mm[Hg] Pepper Aichholz Work Phone: [facility] 10-06-2024 09:05-0500 Heart rate 88 /min Pepper Aichholz Work Phone: [facility] 10-06-2024 09:05-0500 Respiratory rate 18 /min Pepper Aichholz Work Phone: [facility] 10-06-2024 09:05-0500 SaO2% (BldA) [Mass fraction] 96 % Pepper Aichholz Work Phone: [facility] 10-06-2024 09:05-0500 Systolic blood pressure 136 mm[Hg] Pepper Aichholz Work Phone: [facility] 10-06-2024 07:31-0500 Body height 177.8 cm Pepper Aichholz Work Phone: [facility] 10-06-2024 07:31-0500 Body weight 115.66 kg Pepper Aichholz Work Phone: [facility] 07-09-2024 13:55-0400 Diastolic blood pressure 74 mm[Hg] Pepper Aichholz Work Phone: [facility] 07-09-2024 13:55-0400 Heart rate 74 /min Pepper Aichholz Work Phone: [facility] 07-09-2024 13:55-0400 Respiratory rate 18 /min Pepper Aichholz Work Phone: [facility] 07-09-2024 13:55-0400 SaO2% (BldA) [Mass fraction] 100 % Pepper Aichholz Work Phone: [facility] 07-09-2024 13:55-0400 Systolic blood pressure 111 mm[Hg] Pepper Aichholz Work Phone: [facility] 07-09-2024 11:51-0400 Body height 175.26 cm Pepper Aichholz Work Phone: [facility] 07-09-2024 11:51-0400 Body temperature 98.6 [degF] Pepper Aichholz Work Phone: [facility] 07-09-2024 11:51-0400 Body weight 117.9 kg Pepper Aichholz Work Phone: [facility] 07-06-2024 09:44-0400 Body height 175.3 cm Pepperjovanny Serratoayleenz [employer] Work Phone: [facility] 07-06-2024 09:44-0400 Body mass index (BMI) [Ratio] 37.18 kg/m2 Pepper Aichholz [employer] Work Phone: [facility] 07-06-2024 09:44-0400 Body temperature 98.1 [degF] Pepper Javiernitoz [employer] Work Phone: [facility] 07-06-2024 09:44-0400 Body weight 114.22 kg Pepper Aichholz [employer] Work Phone: [facility] 07-06-2024 09:44-0400 Diastolic blood pressure 82 mm[Hg] Pepper Aichholz [employer] Work Phone: [facility] 07-06-2024 09:44-0400 Heart rate 79 /min Pepper Javierhholz [employer] Work Phone: [facility] 07-06-2024 09:44-0400 Respiratory rate 19 /min Pepper Aichholz [employer] Work Phone: [facility] 07-06-2024 09:44-0400 SaO2% (BldA) [Mass fraction] 93 % Pepper Javierhholz [employer] Work Phone: [facility] 07-06-2024 09:44-0400 Systolic blood pressure 126 mm[Hg] Pepper Javierhholz [employer] Work Phone: [facility] 06-24-2024 08:39-0400 Body height 175.26 cm [facility] 06-24-2024 08:39-0400 Body mass index (BMI) [Ratio] 42.3 kg/m2 [facility] 06-24-2024 08:39-0400 Body weight 130 kg [facility] 06-23-2024 08:50-0400 Body height 175.26 cm [facility] 06-23-2024 08:50-0400 Body mass index (BMI) [Ratio] 42.3 kg/m2 [facility] 06-23-2024 08:50-0400 Body temperature 98.2 [degF] [facility] 06-23-2024 08:50-0400 Body weight 129.89 kg [facility] 06-23-2024 08:50-0400 Diastolic blood pressure 77 mm[Hg] [facility] 06-23-2024 08:50-0400 Heart rate 91 /min [facility] 06-23-2024 08:50-0400 Respiratory rate 18 /min [facility] 06-23-2024 08:50-0400 SaO2% (BldA) [Mass fraction] 93 % [facility] 06-23-2024 08:50-0400 Systolic blood pressure 115 mm[Hg] [facility] 04-27-2024 08:35-0400 Body height 175.3 cm [facility] [address] [facility] 04-27-2024 08:35-0400 Body mass index (BMI) [Ratio] 38.4 kg/m2 [facility] [address] [facility] 04-27-2024 08:35-0400 Body weight 117.94 kg [facility] [address] [facility] 03-19-2024 09:37-0400 Body height 175.26 cm [facility] 03-19-2024 09:37-0400 Body mass index (BMI) [Ratio] 39.4 kg/m2 [facility] 03-19-2024 09:37-0400 Body temperature 97.8 [degF] [facility] 03-19-2024 09:37-0400 Body weight 121.1 kg [facility] 03-19-2024 09:37-0400 Diastolic blood pressure 98 mm[Hg] [facility] 03-19-2024 09:37-0400 Heart rate 94 /min [facility] 03-19-2024 09:37-0400 Respiratory rate 20 /min [facility] 03-19-2024 09:37-0400 SaO2% (BldA) [Mass fraction] 95 % [facility] 03-19-2024 09:37-0400 Systolic blood pressure 158 mm[Hg] [facility] Encounters Encounter Date Encounter Type Care Provider Facility Start: 01-06-2025 End: 01-06-2025 Bamboo flowsheet Pepper Sexton [employer] Work Phone: [facility] Start: 01-06-2025 End: 01-06-2025 Bamboo flowsheet Pepper Sexton [employer] Work Phone: [facility] Start: 01-06-2025 End: 01-06-2025 Office outpatient visit 25 minutes Pepper Sexton [employer] Work Phone: [facility] Comment on above: Essential hypertensi on, benign (CMS/HCC) (Primary Dx); Chronic kidney disease, stage 3a (HCC) (CMS/HCC); Gastro-esophageal reflux disease without esophagitis; Morbid (severe) obesity due to excess calories (CMS/HCC); Mixed hyperlipidemia (CMS/HCC); Hypomagnesemia; Screening for prostate cancer; Marijuana use; Hypothyroidism, unspecified type (CMS/HCC); Fibromyalgia Start: 01-06-2025 End: 01-06-2025 ambulatory PEPPER SEXTON Not Available Start: 12-02-2024 End: 12-02-2024 ambulatory Pepper Sexton Work Phone: [facility] Work Phone: Start: 12-02-2024 End: 12-02-2024 Patient encounter procedure Pepper Sexton Work Phone: [facility] [place] Work Phone: Start: 11-26-2024 End: 11-26-2024 Clinisync Result Encounter Generic External Data Provider [facility] External Department Unsolicited Start: 11-26-2024 End: 11-26-2024 Clinisync Result Encounter Generic External Data Provider [facility] External Department Unsolicited Start: 11-24-2024 End: 11-24-2024 Clinisync Result Encounter Generic External Data Provider [facility] External Department Unsolicited Start: 11-24-2024 End: 11-24-2024 Clinisync Result Encounter Generic External Data Provider [facility] External Department Unsolicited Start: 11-24-2024 Non-patient / Non-visit Pepper heinjemal Work Phone: [facility] Work Phone: Start: 11-05-2024 End: 11-05-2024 Clinisync Result Encounter Pepper Carlie [employer] Work Phone: [facility] External Department Unsolicited Start: 11-05-2024 End: 11-05-2024 Clinisync Result Encounter Pepper Carlie [employer] Work Phone: [facility] Unsolicited Start: 11-04-2024 End: 11-04-2024 Refill Pepper Serratojemal [employer] Work Phone: [facility] Comment on above: Hypomagnesemia; Restless legs syndrome Start: 10-08-2024 End: 10-08-2024 Refill Pepper Serratojemal [employer] Work Phone: [facility] Comment on above: Hypothyroidism, unsp ecified type (CMS/HCC) (Primary Dx); Hypomagnesemia Start: 10-07-2024 End: 10-07-2024 Bamboo flowsheet Pepper Serratojemal [employer] Work Phone: [facility] Start: 10-07-2024 End: 10-07-2024 Bamboo flowsheet Pepper Serratojemal [employer] Work Phone: [facility] Start: 10-07-2024 End: 10-07-2024 Clinisync Result Encounter Pepper Carlie [employer] Work Phone: [facility] External Department Unsolicited Start: 10-07-2024 End: 10-07-2024 Office outpatient visit 25 minutes Pepper Carlie [employer] Work Phone: [facility] Comment on above: Essential hypertensi on, benign (CMS/HCC) (Primary Dx); Morbid (severe) obesity due to excess calories (CMS/HCC); Gastro-esophageal reflux disease without esophagitis; Body mass index (BMI) 37.0-37.9, adult; GURVINDER (obstructive sleep apnea); COPD mixed type ([facility]/HCC); Pulmonary hypertension ([facility]/HCC); Hypothyroidism, unspecified type ([facility]); Obesity (BMI 30-39.9); Mixed hyperlipidemia ([facility]); Hypomagnesemia; Marijuana use; Pre-diabetes; Chronic bronchitis, unspecified chronic bronchitis type ([facility]) Start: 10-07-2024 End: 10-07-2024 ambulatory PEPPER SEXTON Not Available Start: 10-06-2024 Non-patient / Non-visit Pepper lorenz Work Phone: [facility] Work Phone: Start: 10-06-2024 End: 10-06-2024 Admission to same day surgery center Pepper Sexton Work Phone: [facility] Work Phone: Start: 10-06-2024 End: 10-06-2024 ambulatory Pepper Sexton Work Phone: [facility] Work Phone: Start: 09-28-2024 End: 09-28-2024 Clinisync Result Encounter Pepper Sexton [employer] Work Phone: [facility] External Department Unsolicited Start: 09-28-2024 End: 09-28-2024 Clinisync Result Encounter Pepper Carlie [employer] Work Phone: [facility] External Department Unsolicited Start: 09-28-2024 End: 09-28-2024 Refill Pepper Sexton [employer] Work Phone: [facility] Comment on above: Hypomagnesemia (Prim ирина Dx) Start: 09-14-2024 End: 09-14-2024 Refill Pepperjovanny Sexton [employer] Work Phone: [facility] Comment on above: Hypomagnesemia Start: 09-14-2024 End: 09-15-2024 Refill Pepper Carlie [employer] Work Phone: [facility] Comment on above: Fibromyalgia Start: 09-04-2024 End: 09-04-2024 Orders Only Pepper Carlie [employer] Work Phone: [facility] Comment on above: Hypomagnesemia (Prim ирина Dx) Start: 09-04-2024 End: 09-04-2024 Refill Pepper Carlie [employer] Work Phone: [facility] Comment on above: Hypomagnesemia Start: 07-09-2024 Non-patient / Non-visit Pepper lorenz Work Phone: [facility] Gastroenterology Work Phone: Start: 07-09-2024 End: 07-09-2024 Admission to same day surgery center Pepper Sexton Work Phone: [facility] Work Phone: Start: 07-09-2024 End: 07-09-2024 ambulatory Pepper Sexton Work Phone: [facility] Work Phone: Start: 07-06-2024 End: 07-06-2024 Bamboo flowsheet Pepper Carlie [employer] Work Phone: [facility] Start: 07-06-2024 End: 07-06-2024 Bamboo flowsheet Pepper Carlie [employer] Work Phone: [facility] Start: 07-06-2024 End: 07-06-2024 Office outpatient visit 25 minutes Pepper Sexton [employer] Work Phone: [facility] Comment on [...] Start: 06-29-2024 End: 06-29-2024 Refill Pepper Sexton [employer] Work Phone: [facility] Comment on above: Restless legs syndro me Start: 06-24-2024 End: 06-24-2024 ambulatory [facility] Work Phone: Start: 06-24-2024 End: 06-24-2024 Patient encounter procedure [facility] Physician [facility] G[facility]enter[facility] Work Phone: Start: 06-23-2024 End: 06-23-2024 Clinisync Result Encounter Generic External Data Provider [facility] External Department Unsolicited Start: 06-23-2024 End: 06-23-2024 Clinisync Result Encounter Generic External Data Provider [facility] External Department Unsolicited Start: 06-23-2024 End: 06-23-2024 ambulatory [facility] Work Phone: Start: 06-23-2024 End: 06-23-2024 Patient encounter procedure [facility] Physician [facility] [place] Work Phone: Start: 06-18-2024 End: 06-18-2024 Refill Jose Bell MD Work Phone: [facility] Comment on above: Degenerative disc di sease, cervical (Primary Dx) Start: 06-09-2024 End: 06-09-2024 Refill Pepper Sexton [employer] Work Phone: [facility] Comment on above: Hypomagnesemia questions Start: 06-03-2024 End: 06-03-2024 Bamboo flowsheet Blank Langston Winnieshakira [employer] Work Phone: [facility] Start: 06-03-2024 End: 06-03-2024 Bamboo flowsheet Blank Langston Aplshakira [employer] Work Phone: [facility] Start: 06-03-2024 End: 06-03-2024 ambulatory BLANK MCFARLANE Not Available Start: 06-03-2024 End: 06-03-2024 Postop follow up visit related to original px Blank Langston Denys [employer] Work Phone: [facility] Comment on above: 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 Start: 05-27-2024 End: 05-27-2024 Evaluation and management of inpatient [facility] Start: 05-26-2024 End: 05-26-2024 Refill Tiburcio Noel [employer] Work Phone: [facility] Comment on above: Post-operative pain (Primary Dx) Start: 05-04-2024 End: 01-06-2025 Preoperative state Tiburcio Noel [employer] Work Phone: [facility] Start: 05-04-2024 End: 05-04-2024 ambulatory PEPPER SEXTON Not Available Start: 04-30-2024 End: 04-30-2024 ambulatory [facility] Not Available Start: 04-27-2024 End: 04-27-2024 ambulatory [facility] Start: 04-27-2024 Encounter for other preprocedural examination PEPPER JAVIERHayderJEMAL [facility] Start: 04-27-2024 End: 04-27-2024 Patient encounter procedure [facility] Pre-Admission Testing 2 [facility] - Pre Admit Comment on above: Preop examination (P rimary Dx); Hypertension, unspecified type Start: 04-27-2024 End: 04-27-2024 Preprocedural examination done Pm 2 [facility] Start: 04-09-2024 End: 04-09-2024 ambulatory PEPPER AICHayderHOLZ Not Available Start: 03-19-2024 End: 03-19-2024 ambulatory [facility] Work Phone: Start: 03-19-2024 End: 03-19-2024 Patient encounter procedure [facility] Work Phone: Start: 03-11-2024 End: 03-11-2024 ambulatory PEPPER AICHHOLZ Not Available Start: 03-05-2024 End: 03-05-2024 ambulatory RUPERT BO Not Available Start: 02-26-2024 End: 02-26-2024 ambulatory BLANK MCFARLANE Not Available Start: 02-26-2024 End: 02-26-2024 ambulatory PEPPER AICHayderHOLZ Not Available Start: 02-04-2024 End: 02-04-2024 ambulatory KARUNA CARRANZA Not Available Start: 07-19-2022 End: 07-20-2022 ambulatory HOSPICE ART THERAPIST PEPPER AICHHOLZ Facility:[facility] Start: 04-04-2022 End: 04-05-2022 ambulatory HOSPICE ART THERAPIST PEPPER AICHHOLZ Facility:[facility] Start: 02-27-2022 End: 02-28-2022 ambulatory HOSPICE ART THERAPIST PEPPER AICHHOLZ Facility:[facility] Start: 01-16-2022 End: 01-17-2022 ambulatory HOSPICE ART THERAPIST PEPPER AICHHOLZ Facility:[facility] Start: 12-25-2021 End: 12-26-2021 ambulatory HOSPICE ART THERAPIST PEPPER AICHHOLZ Facility:[facility] Procedures Date Procedure Procedure Detail Performing Clinician Start: 11-26-2024 ALL CBC WITH AUTO DIFF Generic External Data Provider Start: 11-24-2024 ALL MAGNESIUM Generic External Data Provider Start: 11-05-2024 ALL MAGNESIUM Pepper Aichholz [employer] Work Phone: Start: 10-07-2024 ALL MAGNESIUM Pepper Aichholz [employer] Work Phone: Start: 10-07-2024 ALL THYROID STIM HORMONE Pepper Aichholz N P Work Phone: Start: 10-07-2024 Hemoglobin glycosylated a1c Pepper Aichhol z [employer] Work Phone: Start: 10-06-2024 Esophagogastroduodenoscopy Pepper Aichholz Work Phone: Start: 09-28-2024 ALL BASIC METABOLIC PANEL Pepper Rojelioholz [employer] Work Phone: Start: 09-28-2024 ALL MAGNESIUM Pepper Aichholz [employer] Work Phone: Start: 07-09-2024 Esophagogastroduodenoscopy Pepper Aichholz Work Phone: Start: 06-23-2024 ALL MAGNESIUM Generic External Data Provider Start: 06-23-2024 ALL RENAL FUNCTION PANEL Generic Externa l Data Provider Start: 06-23-2024 ALL URIC ACID Generic External Data Provider Start: 07-19-2022 PSA screening HOSPICE ART THERAPIST PEPPER CARLIE Comment on above: Performed By: #### CMP, TSH, LIPID #### [facility] [address] [place] [address] Dr. Lavonne Tinoco Plan of Treatment Date Care Activity Detail Author Start: 08-11-2025 Screening for malign ant neoplasm of colon [facility] Start: 04-27-2025 Adult BMI Screening Adult BMI Screen ing [facility] Start: 04-27-2025 Tobacco Screening Tobacco Screening [facility] Start: 04-07-2025 End: 04-07-2025 Patient encounter procedure 04/07/2025 9:00 AM EDT Office Visit [facility] [address] [place] [id number] Pepper Sexton [employer] [address] [place] [address] [facility] Start: 01-06-2025 End: 01-06-2026 CBC W Auto Differential panel - Blood CBC and differential Lab Routine Gastro-esophageal reflux disease without esophagitis Expected: 01/06/2025 (Approximate), Expires: 01/06/2026 [facility] Comment on above: Expected: 01/06/2025 (Approximate), Expires: 01/06/2026 Start: 01-06-2025 End: 01-06-2026 Comprehensive metabolic 2000 panel - Serum or Plasma Comprehensive metabolic panel Lab Routine Chronic kidney disease, stage 3a (HCC) (CMS/HCC) Essential hypertension, benign (CMS/HCC) Gastro-esophageal reflux disease without esophagitis Mixed hyperlipidemia (CMS/HCC) Expected: 01/06/2025 (Approximate), Expires: 01/06/2026 [facility] Comment on above: Expected: 01/06/2025 (Approximate), Expires: 01/06/2026 Start: 01-06-2025 End: 01-06-2026 Lipid 1996 panel - Serum or Plasma Lipid panel Lab Routine Mixed hyperlipidemia (CMS/HCC) Expected: 01/06/2025 (Approximate), Expires: 01/06/2026 [facility] Work Phone: Comment on above: Expected: 01/06/2025 (Approximate), Expires: 01/06/2026 Start: 01-06-2025 End: 01-06-2026 Microalbumin/Creatinine panel in random Urine Microalbumin / creatinine, urine ratio Lab Routine Essential hypertension, benign (CMS/HCC) Expected: 01/06/2025 (Approximate), Expires: 01/06/2026 [facility] Comment on above: Expected: 01/06/2025 (Approximate), Expires: 01/06/2026 Start: 01-06-2025 End: 01-06-2026 Prostate specific Ag [Mass/volume] in Serum or Plasma PSA Lab Routine Screening for prostate cancer Expected: 01/06/2025 (Approximate), Expires: 01/06/2026 [facility] Comment on above: Expected: 01/06/2025 (Approximate), Expires: 01/06/2026 Start: 01-06-2025 End: 01-06-2026 Thyrotropin [Units/volume] in Serum or Plasma TSH Lab Routine Hypothyroidism, unspecified type (CMS/HCC) Expected: 01/06/2025 (Approximate), Expires: 01/06/2026 [facility] Comment on above: Expected: 01/06/2025 (Approximate), Expires: 01/06/2026 Start: 01-06-2025 End: 01-06-2026 Thyroxine (T4) free [Mass/volume] in Serum or Plasma T4, free Lab Routine Hypothyroidism, unspecified type (CMS/HCC) Expected: 01/06/2025 (Approximate), Expires: 01/06/2026 [facility] Comment on above: Expected: 01/06/2025 (Approximate), Expires: 01/06/2026 Start: 01-06-2025 End: 01-06-2026 Urinalysis complete panel - Urine Urinalysis with reflex microscopic (clean catch) Lab Routine Essential hypertension, benign (CMS/HCC) Expected: 01/06/2025 (Approximate), Expires: 01/06/2026 [facility] Comment on above: Expected: 01/06/2025 (Approximate), Expires: 01/06/2026 Start: 01-06-2025 End: 01-06-2025 Patient encounter procedure [facility] Comment on above: Essential hypertensi on, benign (CMS/HCC) (Primary Dx); Chronic kidney disease, stage 3a (HCC) (CMS/HCC); Gastro-esophageal reflux disease without esophagitis; Morbid (severe) obesity due to excess calories (CMS/HCC); Mixed hyperlipidemia (CMS/HCC); Hypomagnesemia; Screening for prostate cancer; Marijuana use; Hypothyroidism, unspecified type (CMS/HCC) Start: 12-06-2024 End: 10-08-2025 Thyrotropin [Units/volume] in Serum or Plasma TSH Lab Routine Hypothyroidism, unspecified type (CMS/HCC) Expected: 12/06/2024 (Approximate), Expires: 10/08/2025 [facility] Work Phone: Comment on above: Expected: 12/06/2024 (Approximate), Expires: 10/08/2025 Start: 12-06-2024 End: 10-08-2025 Thyroxine (T4) free [Mass/volume] in Serum or Plasma T4, free Lab Routine Hypothyroidism, unspecified type (CMS/HCC) Expected: 12/06/2024 (Approximate), Expires: 10/08/2025 [facility] Comment on above: Expected: 12/06/2024 (Approximate), Expires: 10/08/2025 Start: 10-22-2024 End: 10-08-2025 Magnesium [Mass/volume] in Serum or Plasma Magnesium Lab Routine Hypomagnesemia Expected: 10/22/2024 (Approximate), Expires: 10/08/2025 [facility] Comment on above: Expected: 10/22/2024 (Approximate), Expires: 10/08/2025 Start: 10-07-2024 End: 10-07-2025 Magnesium [Mass/volume] in Serum or Plasma Magnesium Lab Routine Hypomagnesemia Expected: 10/07/2024 (Approximate), Expires: 10/07/2025 [facility] Comment on above: Expected: 10/07/2024 (Approximate), Expires: 10/07/2025 Start: 10-07-2024 End: 10-07-2025 Thyrotropin [Units/volume] in Serum or Plasma TSH Lab Routine Hypothyroidism, unspecified type (CMS/HCC) Expected: 10/07/2024 (Approximate), Expires: 10/07/2025 [facility] Work Phone: Comment on above: Expected: 10/07/2024 (Approximate), Expires: 10/07/2025 Start: 10-07-2024 End: 10-07-2025 Thyroxine (T4) free [Mass/volume] in Serum or Plasma T4, free Lab Routine Hypothyroidism, unspecified type (CMS/HCC) Expected: 10/07/2024 (Approximate), Expires: 10/07/2025 [facility] Comment on above: Expected: 10/07/2024 (Approximate), Expires: 10/07/2025 Start: 10-07-2024 End: 10-07-2024 Patient encounter procedure [facility] Comment on above: GURVINDER (obstructive sle ep apnea) (Primary Dx); Morbid (severe) obesity due to excess calories (CMS/HCC); Gastro-esophageal reflux disease without esophagitis; Body mass index (BMI) 37.0-37.9, adult; COPD mixed type ([facility]/HCC); Essential hypertension, benign ([facility]/HCC); Pulmonary hypertension (CMS/HCC); Hypothyroidism, unspecified type ([facility]/HCC); Obesity (BMI 30-39.9); Mixed hyperlipidemia ([facility]/HCC); Hypomagnesemia; Marijuana use; Pre-diabetes Start: 10-06-2024 [facility] Start: 09-04-2024 End: 09-04-2025 Basic metabolic 1998 panel - Serum or Plasma Basic metabolic panel Lab Routine Hypomagnesemia Expected: 09/04/2024 (Approximate), Expires: 09/04/2025 [facility] Comment on above: Expected: 09/04/2024 (Approximate), Expires: 09/04/2025 Start: 09-04-2024 End: 09-04-2025 Magnesium [Mass/volume] in Serum or Plasma Magnesium Lab Routine Hypomagnesemia Expected: 09/04/2024 (Approximate), Expires: 09/04/2025 [facility] Work Phone: Comment on above: Expected: 09/04/2024 (Approximate), Expires: 09/04/2025 Start: 07-09-2024 [facility] Start: 07-06-2024 End: 07-06-2024 Patient encounter procedure [facility] Comment on above: Arrived Start: 06-30-2024 End: 06-30-2024 Patient encounter procedure [facility] Comment on above: Arrived Start: 06-09-2024 End: 06-09-2025 Basic metabolic 1998 panel - Serum or Plasma Basic metabolic panel Lab Routine Hypomagnesemia Expected: 06/09/2024 (Approximate), Expires: 06/09/2025 [facility] Work Phone: Comment on above: Expected: 06/09/2024 (Approximate), Expires: 06/09/2025 Start: 06-09-2024 End: 06-09-2025 Magnesium [Mass/volume] in Serum or Plasma Magnesium Lab Routine Hypomagnesemia Expected: 06/09/2024 (Approximate), Expires: 06/09/2025 [facility] Comment on above: Expected: 06/09/2024 (Approximate), Expires: 06/09/2025 Start: 06-03-2024 End: 06-03-2024 Patient encounter procedure 06/03/2024 8:45 AM EDT Office Visit [facility] [address] [place] [address] Blank Mcfarlane, REMBERTO [address] [place] [address] [facility] Start: 05-27-2024 End: 05-27-2024 Patient encounter procedure 05/27/2024 10:40 AM EDT Office Visit [facility] [address] [place] [address] Karuna Carranza PA [address] [place], [place] [id number] [facility] Start: 05-27-2024 End: 05-27-2024 Admission to same day surgery center 05/27/2024 7:30 AM EDT - 05/27/2024 8:30 AM EDT Surgery [facility] [address] [facility] [place] [address] Rupert Bo DO [address] [place] [address] DECOMPRESSION NERVE ULNAR [47456 (CPT )] [facility] Comment on above: DECOMPRESSION NERVE ULNAR [55827 (CPT )] Start: 05-27-2024 End: 05-27-2024 Neuroplasty &/transposition ulnar nerve elbow DECOMPRESSION NERVE ULNAR right ulnar neuropathy 05/27/2024 7:30 AM EDT [facility] Start: 05-27-2024 End: 05-27-2024 Patient encounter procedure 05/27/2024 7:30 AM EDT Procedure Visit [facility] Rupert Bo, [address] [place] [address] [facility] Start: 05-27-2024 Subsequent hospital visit by physician 05/27/2024 7:30 AM EDT Hospital Encounter [facility] [address] [place] [id number] Rupert Bo, DO [address] [place] [address] [facility] Start: 05-24-2024 Influenza vaccination Influenza Vacc ine [facility] Start: 2017 Administration of varicella zoster vaccine Zoster (Shingles) Vaccine (1 of 2) [facility] Start: 1986 DTaP,Tdap and Td Vaccines (1 - Tdap) DTaP,Tdap and Td Vaccines (1 - Tdap) [facility] Start: 1985 Adult BMI Follow Up Plan Adult BMI Follow Up Plan [facility] Start: 1979 Depression Screening Depression Scre ening [facility] Start: 1967 Screening for malign ant neoplasm of colon [facility] Patient Education [facility] Work Phone: Renal function 1999 panel - Serum or Plasma [facility] Renal function 1999 panel - Serum or Plasma [facility] Renal function 1999 panel - Serum or Plasma [facility] [place] Payers Date Payer Category Payer Self-pay 2019 [facility] Mem er [id number] 2019 Unknown [id number] 1967 Unknown [id number] 2.16.840.1.070434.3.579.2 .593 1967 Unknown [id number] 2.16.840.1.841790.3.579.2 .593 1967 Unknown [id number] 2.16.840.1.346163.3.579.2 .593 1967 Unknown [id number] 2.16.840.1.820536.3.579.2 .593 1967 Unknown [id number] 2.16.840.1.544886.3.579.2 .593 1967 Unknown [id number] 2.16.840.1.271362.3.579.2 .1286 1967 Unknown [id number] 2.16.840.1.287338.3.579.2 .1286 1967 Unknown [id number] 2.16.840.1.807069.3.579.2 .1286 1967 Unknown [id number] 2.16.840.1.388495.3.579.2 .1286 1967 Unknown [id number] 2.16.840.1.270085.3.579.2 .1286 1967 Unknown [id number] 2.16.840.1.390855.3.579.2 .1286 1967 Unknown [id number] 2.16.840.1.204426.3.579.2 .1259 1967 Unknown [id number] 2.16.840.1.829593.3.579.2 .1259 1967 Unknown [id number] 2.16.840.1.923633.3.579.2 .1259 1968 Unknown [id number] 2.16.840.1.868533.3.579.2 .1258 1967 Unknown [id number] 2.16.840.1.680972.3.579.2 .1258 1967 Unknown [id number] 2.16.840.1.230325.3.579.2 .1258 1967 Unknown [id number] 2.16.840.1.838778.3.579.2 .1258 1967 Unknown [id number] 2.840.1.165497.3.579.2 .1258 1967 Unknown [id number] 2.840.1.870591.3.579.2 .1258 1967 Unknown [id number] 2.840.1.877893.3.579.2 .1258 1967 Unknown [id number] 2.840.1.866249.3.579.2 .1258 1967 Unknown [id number] 2.840.1.956673.3.579.2 .1258 1967 Unknown [id number] 2.16840.1.196929.3.579.2 .9 1959 Unknown [id number] 1959 Unknown [id number] Unknown [place] [id number] Unknown [facility] [id number] Unknown [id number] 2.840.1.443788.3.579.2 .531 Unknown [id number] 2.840.1.274517.3.579.2 .531 Social History Date Type Detail Facility Start: 03-19-2024 Tobacco smoking status LAIS Current some day smoker [facility] Start: 1965 Sex Assigned At Male [facility] Start: 04-30-2024 End: 06-23-2024 Tobacco smoking status NHIS Ex-smoker (finding) [facility] History of tobacco use Current smoker [facility] History of tobacco use Cigar Smoker [facility] Start: 04-27-2024 End: 04-30-2024 Tobacco use and exposure Smokeless tobacco non-user [facility] Start: 06-03-2024 End: 01-06-2025 Alcoholic beverage intake Current drinker of alcohol (finding) [facility] Start: 11-25-2023 End: 03-11-2024 History of Social function [facility] Start: 11-25-2023 End: 03-11-2024 Social connection and isolation panel [facility] Do you belong to any clubs or organizations such as confucianism groups, unions, fraternal or athletic groups, or [...] To some extent [facility] (I/We) worried jonathan er (my/our) food would run out before [...] on file [facility] Start: 07-09-2024 End: 12-02-2024 Tobacco smoking status NHIS Never smoked tobacco (finding) [facility] Start: 10-06-2024 End: 12-02-2024 Sex Male (finding) [facility] History of tobacco use Cigarette Smoker [facility] Start: 04-27-2024 Alcohol Comment social/recreational [facility] Goals Date Patient Goal Desired Activity /State Clinical Notes 04-27-2024 to 01-06-2025 Pepper Sexton, REMBERTO - 01/06/2025 9:00 AM Dash Sexton, [employer]CHIT[employer] - 01/06/2025 6:15 AM Dash Sexton, [employer] ARCHITECT - 01/06/2025 6:14 AM Dash Sexton, REMBERTO - 01/06/2025 6:14 AM EDTPatient Instructions Note Date & Type Note Facility 01-06-2025 History of Presen t illness Narrative Images from the original note were not included. Abram Guillaume is a 59 y.o. male presents with chief complaint of Follow-up (3m) HPI: Has been taking doxepin for at least 5 years, fibro and RLS. Has not trialed a oral pill, has always taken liquid form. Feels this benefits both sxs that he is using it for Changed magnesium supplements next fu with them 03/29/25 Hypertension This is a chronic problem. The current episode started more than 1 year ago. The problem is unchanged. The problem is controlled. Associated symptoms include shortness of breath (occ). Pertinent negatives include no blurred vision, chest pain, palpitations or peripheral edema (left leg only). There are no associated agents to hypertension. Risk factors for coronary artery disease include dyslipidemia, male gender, obesity and sedentary lifestyle. Past treatments include beta blockers, calcium channel blockers and angiotensin blockers. The current treatment provides significant improvement. There are no compliance problems. There is no history of CAD/[place], heart failure or PVD. GERD He reports no chest pain, no dysphagia, no heartburn, no nausea, no sore throat or no wheezing. This is a chronic problem. The current episode started more than 1 year ago. The problem occurs occasionally. The problem has been unchanged. Risk factors include obesity. He has tried a PPI (only taking 1 PPI daily) for the symptoms. The treatment provided significant relief. Past procedures include an EGD. SUBJECTIVE: MEDICATIONS: Current Outpatient Medications Medication Instructions albuterol HFA (Ventolin HFA) 90 mcg/act inhaler 2 puffs, Inhalation, Every 6 hours PRN amLODIPine (NORVASC) 10 mg, Oral, Daily budesonide-formoterol (Symbicort) 160-4.5 MCG/ACT inhaler 2 puffs, Inhalation, 2 times daily, Rinse mouth with water after use to reduce aftertaste and incidence of candidiasis. Do not swallow. doxepin (SINEQUAN) 100 mg, Oral, Nightly gabapentin (NEURONTIN) 600 mg, Oral, 2 times daily levothyroxine (SYNTHROID, LEVOXYL) 112 mcg, Oral, Daily before breakfast Magnesium Glycinate 100 mg, 3 times daily montelukast (SINGULAIR) 10 mg, Oral, Nightly nebivolol (BYSTOLIC) 10 mg, Oral, Daily omeprazole (PRILOSEC) 40 mg, Oral, Daily before breakfast, Do not crush or chew. pravastatin (Pravachol) 20 MG tablet 1 tablet, Daily spironolactone (ALDACTONE) 50 mg, Daily valsartan (DIOVAN) 320 mg, Oral, Daily ALLERGIES: No Known Allergies REVIEW OF SYMPTOMS: Review of Systems Constitutional: Negative for activity change, appetite change and unexpected weight change. HENT: Negative for ear pain, nosebleeds, sneezing, sore throat, trouble swallowing and voice change. Eyes: Negative for blurred vision, pain, discharge and visual disturbance. Respiratory: Positive for shortness of breath (occ). Negative for apnea, chest tightness and wheezing. Cardiovascular: Positive for leg swelling. Negative for chest pain and palpitations. Gastrointestinal: Negative for abdominal distention, blood in stool, constipation, diarrhea, dysphagia, heartburn and nausea. Genitourinary: Negative for decreased urine volume, difficulty urinating, dysuria and hematuria. Musculoskeletal: Positive for back pain. Skin: Negative for color change. Neurological: [...] in his father. OBJECTIVE: Visit Vitals BP 140/82 Pulse 91 Temp 97.8 F Resp 18 Ht 5' 9 Wt 274 lb SpO2 93% BMI 40.46 kg/m Smoking Status Former BSA 2.46 m Physical Exam Vitals and nursing note [...] Normal pulses. Heart sounds: Normal heart sounds. No murmur heard. Pulmonary: Effort: Pulmonary effort is normal. Breath sounds: Normal breath sounds. No wheezing or rhonchi. Abdominal: General: Bowel sounds are normal. Palpations: Abdomen is soft. Musculoskeletal: Cervical back: Neck supple. Right lower leg: No edema. Left lower leg: Edema present. Skin: General: Skin is warm and dry. Capillary Refill: Capillary refill takes 2 to 3 seconds. Findings: Rash present. Neurological: General: No focal deficit present. Mental Status: He is alert. Psychiatric: Mood and Affect: Mood normal. Behavior: Behavior normal. Thought Content: Thought content normal. Judgment: Judgment normal. ASSESSMENT AND PLAN: No follow-ups on file. Problem List Items Addressed This Visit Hyperlipidemia (CMS/HCC) On statin therapy Labs yearly and prn dose changes Relevant Orders Lipid panel Comprehensive metabolic panel Fibromyalgia Relevant Medications doxepin (SINEquan) 10 MG/ML solution Essential hypertension, benign (CMS/HCC) - Primary Please check blood pressure daily and record DASH diet Limit caffeine Take medication as directed Contact office if chest pain, pressure, dizziness, shortness of breath, swelling legs Recommend slow position changes Current meds: amlodipine, bystolic, valsartan Relevant Orders Comprehensive metabolic panel Urinalysis with reflex microscopic (clean catch) Microalbumin / creatinine, urine ratio Hypothyroidism (CMS/HCC) Current med: levothyroxine Check labs yearly and prn dose changes or symptomatic Has had 30 pound weight gain Relevant Orders TSH T4, free Hypomagnesemia Since last visit changed magnesium to magnesium glycinate per nephrology They are managing this now Marijuana use Gummies and smoking Screening for prostate cancer Check labs in 03/17 Relevant Orders PSA Morbid (severe) obesity due to excess calories (CMS/HCC) Discussed with patient their BMI (actual, verses recommended). We have also discussed lifestyle modifications: attempts to perform physical activity as chronic conditions allow, also to monitor dietary intake: increasing protein/fruits/veggies and lowering carb intake (unless contraindicated). Limit sodas, juices, and sugary drinks. Would recommend looking into weight watchers program Gastro-esophageal reflux disease without esophagitis Recommendations: freq small meals, nothing to eat or drink at least 2 hours prior to bed, limit caffeine, alcohol, as well as spicy foods Meds to limit or avoid if possible: NSAIDS Elevate HOB if possible Most recent EGD: 09/2024 Current meds: omeprazole Does continue to have hypomagnesium levels, cannot tolerate off of PPI therapy Relevant Orders CBC and differential Comprehensive metabolic panel Chronic kidney disease, stage 3a (HCC) (CMS/HCC) Sees nephrology Relevant Orders Comprehensive metabolic panel Associated Problem(s): Hypothyroidism (CMS/HCC) Current med: levothyroxine Check labs yearly and prn dose changes or symptomatic Has had 30 pound weight gain Associated Problem(s): Screening for prostate cancer Check labs in 03/17 Associated Problem(s): Marijuana use Gummies and smoking Associated Problem(s): Hypomagnesemia Since last visit changed magnesium to magnesium glycinate per nephrology They are managing this now Associated Problem(s): Hyperlipidemia (CMS/HCC) On statin therapy [...] contraindicated). Limit sodas, juices, and sugary drinks. Would recommend looking into weight watchers program Associated Problem(s): Chronic kidney disease, stage 3a (HCC) (CMS/HCC) Sees nephrology Associated Problem(s): Gastro-esophageal reflux disease without esophagitis [...] tolerate off of PPI therapy Associated Problem(s): Essential hypertension, benign (CMS/HCC) Please check blood pressure daily and record DASH diet Limit caffeine Take medication as directed Contact office if chest pain, pressure, dizziness, shortness of breath, swelling legs Recommend slow position changes Current meds: amlodipine, bystolic, valsartan documented in this encounter [facility] 01-06-2025 Instructions Pepper Sexton NP - 01/06/2025 9:00 AM EDT Fasting labs due after 03/02/25 documented in this encounter [facility] 10-07-2024 History of Presen t illness Narrative [...] kidney disease. There is no history of CAD/[place]. Identifiable causes of hypertension include a thyroid [...] and bystolic Associated Problem(s): Essential hypertension, benign ([facility]) Please check blood pressure daily and record DASH diet Limit caffeine Take medication as directed Contact office if chest pain, pressure, dizziness, shortness of breath, swelling legs Recommend slow position changes Current meds: amlodipine, bystolic, valsartan Associated Problem(s): COPD mixed type ([facility]) Current meds: albuterol prn and symbicort Sporadic [...] daily function:NA documented in this encounter [facility] 10-07-2024 Instructions Pepper Sexton NP - 10/07/2024 9:00 AM EST 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 documented in this encounter [facility] 10-06-2024 History and physical note Note Date/Time October 06, 2024 8:32am [facility] [address] [place] [address] Gastroenterology H&P Signed Patient: Abram Guillaume MR#: [id number] 4 : 1965 Acct:[id number] Age/Sex: 58 / M Adm Date: 5 Loc: Room: Type: [facility] Attending Dr: James Elaine MD Copies [...] By: <Electronically signed by James Elaine MD> 10/06/24 0832 [facility] Work Phone: 1(370) 729-526301-14-2025 Procedure [place] [id number] EGD Procedure Note Signed Patient: Abram Guillaume MR#: [id number] 4 : 1965 Acct:[id number] Age/Sex: 58 / M Adm Date: 5 Loc: Room: Type: [facility] Attending Dr: James Elaine MD Copies to: MD Pepper Werner NP-C~ Esophagogastroduodenoscopy Date/Provider Date: 10/06/2024 James Elaine MD Procedure Findings: Procedure: EGD with biopsy Indication: 58-year-old man with history of esophagitis here for EGD to assess for Diana's Pre-operative diagnosis: History of esophagitis Post-operative diagnosis: Umbarger-colored mucosa in the esophagus otherwise normal EGD [...] MD 10/06/24 0832 Signed By: 10/06/24 0834 [facility]01-14-2025 [place] [address] Gastroenterology H&P Signed Patient: Abram Guillaume MR#: [id number] 4 : 1965 Acct:[id number] Age/Sex: 58 / M Adm Date: 5 Loc: Room: Type: [facility] Attending Dr: James Elaine MD Copies [...] MD 10/06/24 0831 Signed By: 10/06/24 0832 [facility]01-06-2025 History of Present illness Narrative * Pepper [...] regarding this matter. documented in this encounterSaint John's [id number] [facility] History of Present illness Narrative* Pepper Sexton [...] scope with GI, has been off his PPI/V7yewxraxt for up coming EGD etc Continue with [...] needs a refill on the mag-ox 90days Arbam Guillaume is a 58 y.o. male presents [...] scope with GI, has been off his PPI/T3jebxgvis for up coming EGD etc Continue with GI Essential hypertension, benign (CMS/HCC) - Primary At goal no med dose chagnes Hypothyroidism (CMS/HCC) No med dose changes Hypomagnesemia Continue with TID magnesium and fu with Nephrology Relevant Medications magnesium oxide (Mag-Ox) 400 MG tablet Obesity (BMI 30-39.9) Needs flu shot declines documented in this encounterSaint John's [id number] History of Present illness Narrative* Rupert Bo, [...] Dr. Bo/lloyd Bo D.O. documented in this encounterSaint John's [id number] Telephone encounter Note* Telephone Encounter - DEBI Cho - 06/09/2024 12:22 PM EDT Spoke with patient and he will RTW tomorrow with light duty [facility] Work Phone: 1(400) 515-417709-17-2024 Miscellaneous Notes* Telephone Encounter - DEBI Cho [...] questions, if you could call him at [phone] documented in this encounterSaint John's [id number] Telephone encounter Note* Telephone Encounter - DEBI Cho - 06/09/2024 12:16 PM EDT Spoke with patient and answered questions, he would like to RTW tomorrow with restrictions, spoke with Dr Bo and he said that was fine [facility] [id number] Telephone encounter Note* Telephone Encounter - Sarah Marshall - 06/09/2024 12:13 PM EDT Pt called and left vm stated he has PO questions, if you could call him at [phone] [facility] [id number] History of Present illness Narrative* Blank Mcfarlane [...] weeks, continue off work documented in this [facility]09-03-2024 Telephone encounter Note* Telephone Encounter - Tiburcio Noel NP - 05/26/2024 12:16 PM EDT Post op pain rx. PDMP reviewed [facility] [id number] Miscellaneous Notes* Telephone Encounter - Tiburcio Noel NP - 05/26/2024 12:16 PM EDT Post op pain rx. PDMP reviewed documented in this [facility]08-05-2024 Instructions* Patient Instructions* Ora Delvalle RN - 04/27/2024 8:15 AM EDT Preoperative Education Checklist- General Surgery date: 05/27/24 Surgery time: 0730 a.m. Arrival time: 0610 a.m. 1. Bring a photo ID and your insurance card with you the day of surgery. You will check in at the main lobby of the [facility]- registration desk is straight ahead as soon as you walk in. Tell them you are here for surgery. 2. 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 5. NO nail ugandan/acrylic on at least one finger. If you are having a hand, wrist or foot surgery then all nail ugandan and artificial/acrylic nails must be removed from [...] please call the Preadmission Testing office at [phone], Mon.-Fri. 7 a.m.-3 p.m. Leave a voicemail [...] appointment with your doctor. [facility] Miscellaneous Notes* Perioperative Nursing Note - Ora Delvalle RN - 04/27/2024 8:15 AM EDT Preoperative Education Checklist- General Surgery date: 05/27/24 Surgery time: 0730 a.m. Arrival time: 0610 a.m. 1. Bring a photo ID and your insurance card with you the day of surgery. You will check in at the main lobby of the [facility]- registration desk is straight ahead as soon as you walk in. Tell them you are here for surgery. 2. 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 5. NO nail ugandan/acrylic on at least one finger. If you are having a hand, wrist or foot surgery then all nail ugandan and artificial/acrylic nails must be removed from [...] please call the Preadmission Testing office at [phone], Mon.-Fri. 7 a.m.-3 p.m. Leave a voicemail [...] reviewed. Patient verbalized understanding. [facility] in [facility]St[facility] Nurse Note* Perioperative Nursing Note - Ora Delvalle RN - 04/27/2024 8:15 AM EDT Preoperative Education Checklist- General Surgery date: 05/27/24 Surgery time: 0730 a.m. Arrival time: 0610 a.m. 1. Bring a photo ID and your insurance card with you the day of surgery. You will check in at the main lobby of the [facility]- registration desk is straight ahead as soon as you walk in. Tell them you are here for surgery. 2. 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 5. NO nail ugandan/acrylic on at least one finger. If you are having a hand, wrist or foot surgery then all nail ugandan and artificial/acrylic nails must be removed from [...] please call the Preadmission Testing office at [phone], Mon.-Fri. 7 a.m.-3 p.m. Leave a voicemail [...] to the follow-up appointment with your doctor. [facility]08-05[facility] Nurse Note* Perioperative Nursing Note - Ora Delvalle RN - 04/27/2024 8:15 AM EDT Hibiclens and surgical instructions reviewed. Patient verbalized understanding. [facility]* Diagnosis Onset Date Resolution Status GERD (gastroesophageal reflux disease) acute Hypomagnesemia acute Primary hypertension [facility] Work Phone: Evaluation note* Diagnosis Onset Date Resolution Status GERD (gastroesophageal reflux disease) acute Hypomagnesemia acute Primary hypertension acute Dyspepsia acute GERD (gastroesophageal reflux disease) acute [facility] Work Phone: Evaluation note* Diagnosis Restless legs syndrome Restless legs syndrome (RLS) documented in this encounter [facility] HealthcareEvaluation note* Diagnosis Cubital tunnel syndrome on right- Primary documented in this encounter [facility] HealthcareEvaluation note* Diagnosis Essential hypertension, benign [...] of magnesium metabolism documented in this encounter [facility] HealthcareEvaluation noteNo assessment information availableMer[facility] Work Phone: Evaluation note* Diagnosis [...] bronchitis type (CMS/HCC) documented in this encounter [facility] HealthcareEvaluation note* Diagnosis Essential hypertension, benign (CMS/HCC)- Primary Essential hypertension, benign Screening for prostate cancer Special screening for malignant neoplasm of prostate Hypomagnesemia Disorders of magnesium metabolism Mixed hyperlipidemia (CMS/HCC) Mixed hyperlipidemia Hyperglycemia Other abnormal glucose Hypothyroidism, unspecified type ([facility]/HCC) Restless legs Restless legs syndrome (RLS) Fibromyalgia Unspecified myalgia and myositis Pulmonary hypertension ([facility]/HCC) Other chronic pulmonary heart diseases Restless legs syndrome Restless legs syndrome (RLS) Gastroesophageal reflux disease, unspecified whether esophagitis present Atopic dermatitis, unspecified type Gastroesophageal reflux disease, unspecified whether esophagitis present- Primary Essential hypertension, benign ([facility]) Essential hypertension, benign Hypothyroidism, unspecified type ([facility]) Mixed hyperlipidemia ([facility]) Mixed hyperlipidemia Hypomagnesemia Disorders of magnesium metabolism Obesity (BMI 30-39.9) Hypomagnesemia- Primary Disorders of magnesium metabolism Fibromyalgia Unspecified myalgia and myositis Atopic dermatitis, unspecified type Gastroesophageal reflux disease, unspecified whether esophagitis present Obesity (BMI 30-39.9) Essential hypertension, benign ([facility]) Essential hypertension, benign Essential (primary) hypertension ([facility])- Primary Unspecified essential hypertension Morbid (severe) obesity due to excess calories ([facility]) Body mass index (BMI) 38.0-38.9, adult Obesity (BMI 30-39.9) Cigarette nicotine dependence without complication Gastroesophageal reflux disease, unspecified whether esophagitis present Hypomagnesemia Disorders of magnesium metabolism Pre-operative clearance- Primary Unspecified pre-operative examination Hypomagnesemia Disorders of magnesium metabolism Restless legs syndrome Restless legs syndrome (RLS) COPD with acute exacerbation ([facility]) Chronic bronchitis, unspecified chronic bronchitis type ([facility]) Essential hypertension, benign ([facility]) Essential hypertension, benign Gastroesophageal reflux disease, unspecified whether esophagitis present GURVINDER (obstructive sleep apnea) Obstructive sleep apnea (adult) (pediatric) Pulmonary hypertension ([facility]) Other chronic pulmonary heart diseases LV dysfunction Left heart failure Essential hypertension, benign ([facility]/HCC)- Primary Essential hypertension, benign Hypomagnesemia Disorders of magnesium metabolism Gastroesophageal reflux disease, unspecified whether esophagitis present Obesity (BMI 30-39.9) Hypothyroidism, unspecified type ([facility]) Needs flu shot Need for prophylactic vaccination and inoculation against influenza Hypomagnesemia- Primary Disorders of magnesium metabolism Essential hypertension, benign ([facility])- Primary Essential hypertension, benign Morbid (severe) obesity due to excess calories ([facility]) Gastro-esophageal reflux disease without esophagitis Body mass [...] of magnesium metabolism documented in this encounter [facility] HealthcareEvaluation note* Diagnosis Essential hypertension, benign [...] legs syndrome (RLS) documented in this encounter [facility] HealthcareEvaluation note* Diagnosis Preop examination- Primary Unspecified pre-operative examination Hypertension, unspecified type documented in this encounter [facility] System[facility]* Diagnosis Onset Date Resolution Status Admit Date GERD (gastroesophageal reflu x disease) acute December 02, 2024 1:43pm Hypomagnesemia acute November 1:43pm Primary hypertension acute [facility] 2024 1:43pm [facility] Work Phone: Evaluation note* Diagnosis Essential hypertension, [...] legs syndrome (RLS) COPD with acute exacerbation (CMS/[facility]) Chronic bronchitis, unspecified chronic bronchitis type (CMS/HCC) [...] Disorders of magnesium metabolism Essential hypertension, benign ([facility]/HCC)- Primary Essential hypertension, benign Morbid (severe) obesity due to excess calories ([facility]/HCC) Gastro-esophageal reflux disease without esophagitis Body [...] chronic bronchitis type (CMS/HCC) Essential hypertension, benign (CMS/HCC)- Primary Essential hypertension, benign Chronic kidney disease, stage 3a (HCC) (CMS/HCC) Gastro-esophageal reflux disease without esophagitis Morbid (severe) obesity due to excess calories (CMS/HCC) Mixed hyperlipidemia (CMS/HCC) Mixed hyperlipidemia Hypomagnesemia Disorders of magnesium metabolism Screening for prostate cancer Special screening for malignant neoplasm of prostate Marijuana use Hypothyroidism, unspecified type (CMS/HCC) Fibromyalgia Unspecified myalgia and myositis documented in this encounter [facility] HealthcareHistory and physical note Author James Elaine [facility] July 09, 2024 1:12pm Note Date/Time July 09, 2024 1 :12pm [facility] [address] [place] [address] Gastroenterology H&P Signed Patient: Abram Guillaume MR#: [id number] 4 : 1965 Acct:[id number] Age/Sex: 58 / M Adm Date: 4 Loc: Room: Type: [facility] Attending Dr: James Elaine MD Copies to: MD Pepper Werner NP-C~ Date of Service: 07/09/2024 HISTORY & PHYSICAL: [...] signed by James Elaine MD> 07/09/24 1312 [facility] Work Phone: Hospital Discharge instructions Additional [...] -Continue omeprazole 40 mg daily -Office number [phone]. [facility] Work Phone: Summary Purpose Family History No Family History Records Found Relationship Condition Age at Onset Recorded Date/T valerie Not Specified No pertinent family history Unknown Advance Directives No Advanced Directives Records Found [...] Esophageal ulcer, gastritis October 06, 2024 8:31am Chief Complaint Admit Date esophagitis, Esophageal ulcer, gastritis October 06, 2024 7:09am esophagitis, Esophageal ulcer, gastritis October 06, 2024 8:31am hypomagnesemia December 02, 2024 1:4 3pm Reason for Visit Admit Date GERD (gastroesophageal reflux disease) M arch 2024 1:43pm Hypomagnesemia December 02, 2024 1:4 3pm Primary hypertension December 02, 2024 1: 43pm Reason for Referral Specialty Diagnoses / Procedures Referred By Contac t Referred To Contact Diagnoses Preop examination Hypertension, unspecified type Procedures ECG 12 lead Rupert Bo DO [address] [place] [address] Referral ID Status Reason Start Date Expiration Date V isits Requested Visits Authorized [id number] Pending Review 04/23/2024 04/23/2025 1 1 Additional Source Comments (unrecognized sect ion and content) No Status Records FoundNo Status Records FoundNo Status Records FoundNo Status Records FoundNo Status Records Found INFORMATION SOURCE (unrecogn ized section and content) DATE CREATED AUTHOR 05/18/2022 [facility] DATE CREATED AUTHOR AUTHOR'S ORGANIZ ATION 07/22/[address] [facility] DATE CREATED AUTHOR AUTHOR'S ORGANIZ ATION 05/28/2024 [facility] DATE CREATED AUTHOR AUTHOR'S ORGANIZ ATION 10/16/2024 [facility] DATE CREATED AUTHOR AUTHOR'S ORGANIZ ATION 01/08/2025 [facility] Special[facility] EPIC Care Teams (unrecognized sec [...] June 23, 2024 End: June 23, 2024 Telecommunications Network Engineer Relationship Specialty Start Date End Date Anastacio Hinojosa MD [address] [place] [address] PCP - General Family Medicine 11/26/23 Pepper Sexton NP [address] [place] [phone] PCP - [place] [employer] 04/23/24 Pepper Sexton NP [address] [place] [phone] Nurse Practitioner Family Medicine 11/26/23 Team Status: Inactive Member Role Status Dates Pepper Sexton Primary Care Provider Active Sta rt: June 24, 2024 End: June 24, 2024 Dav Swanson APRN Attending Provider Active Start: June 24, 2024 End: June 24, 2024 Telecommunications Network Engineer Relationship Specialty Start Date End Date Anastacio Hinojosa MD [address] [place] [phone] PCP - General Family Medicine 11/26/23 Pepper Sexton NP [address] [place] [phone] PCP - [employer] [place] [employer] 04/23/24 Pepper Sexton NP [address] [place] [phone] Nurse Practitioner Family Medicine 11/26/23 Telecommunications Network Engineer Relationship Specialty Start Date End Date Anastacio Hinojosa MD [address] [place] [phone] PCP - General Family Medicine 11/26/23 Pepper Sexton NP [address] [place] [phone] PCP - [employer] [employer] 04/23/24 Peppre Sexton NP [address] [place] [phone] Nurse Practitioner Family Medicine 11/26/23 Telecommunications Network Engineer Relationship Specialty Start Date End Date Anastacio Hinojosa MD [address] [place] [phone] PCP - General Family Medicine 11/26/23 Pepper Sexton NP [address] [place] [phone] PCP - [employer] [place] [employer] 04/23/24 Pepper Sexton NP [address] [place] [phone] Nurse Practitioner Family Medicine 11/26/23 Telecommunications Network Engineer Relationship Specialty Start Date End Date Anastacio Hinojosa MD [address] [place] [address] PCP - General Family Medicine 11/26/23 Pepper Sexton NP [address] [place] [phone] PCP - [employer] [place] [employer] 04/23/24 Pepper Sexton NP [address] [place] [address] Nurse Practitioner Family Medicine 11/26/23 Telecommunications Network Engineer Relationship Specialty Start Date End Date Anastacio Hinojosa MD [address] [place] [phone] PCP - General Family Medicine 11/26/23 Pepper Sexton NP [address] [place] [phone] PCP - [employer] 04/23/24 Pepper Sexton NP [address] [place] [phone] Nurse Practitioner Family Medicine 11/26/23 Team Status: Inactive Member Role Status Dates Pepper Herrerahayderjemal Primary Care Provider Active Sta rt: July 09, 2024 End: July 09, 2024 James Elaine MD Attending Provider Active Start: July 09, 2024 End: July 09, 2024 Team Status: Active Member Role Status Dates Pepper Sexton Primary Care Provider Active Sta rt: July 09, 2024 James Elaine MD Attending Provider, Other Provider Active Start: July 09, 2024 Telecommunications Network Engineer Relationship Specialty Start Date End Date Anastacio Hinojosa MD [address] [place] [phone] PCP - General Family Medicine 11/26/23 Pepper Sexton NP [address] [place] [phone] PCP - [employer] [employer] 04/23/24 Pepper Sexton NP [address] [place] [phone] Nurse Practitioner Family Medicine 11/26/23 Telecommunications Network Engineer Relationship Specialty Start Date End Date Anastacio Hinojosa MD [address] [place] [address] PCP - General Family Medicine 11/26/23 Pepper Sexton NP [address] [place] [address] PCP - [place] [employer] 04/23/24 Pepper Sexton NP [address] [place] [phone] Nurse Practitioner Family Medicine 11/26/23 Telecommunications Network Engineer Relationship Specialty Start Date End Date Anastacio Hinojosa MD [address] [place] [phone] PCP - General Family Medicine 11/26/23 Pepper Sexton NP [address] [place] [address] PCP - [employer] [place] [employer] 04/23/24 Pepper Sexton NP [address] [place] [address] Nurse Practitioner Family Medicine 11/26/23 Telecommunications Network Engineer Relationship Specialty Start Date End Date Anastacio Hinojosa MD [address] [place] [address] PCP - General Family Medicine 11/26/23 Pepper Sexton NP [address] [place] [address] Nurse Practitioner Family Medicine 11/26/23 Telecommunications Network Engineer Relationship Specialty Start Date End Date Anastacio Hinojosa MD [address] [place] [phone] PCP - General Family Medicine 11/26/23 Pepper Sexton NP [address] [place] [phone] PCP - [employer] 04/23/24 Pepper Sexton NP [address] [place] [address] Nurse Practitioner Family Medicine 11/26/23 Telecommunications Network Engineer Relationship Specialty Start Date End Date Anastacio Hinojosa MD [address] [place] [phone] PCP - General Family Medicine 11/26/23 Pepper Sexton NP [address] [place] [phone] PCP - [employer] 04/23/24 Pepper Sexton NP [address] [place] [phone] Nurse Practitioner Family Medicine 11/26/23 Team Status: [...] Other Provider Active Start: October 06, 2024 Telecommunications Network Engineer Relationship Specialty Start Date End Date Anastacio Hinojosa MD [address] [place] [phone] PCP - General Family Medicine 11/26/23 Pepper Sexton NP [address] [place] [phone] PCP - [employer] [employer] 04/23/24 Pepper Sexton NP [address] [place] [address] Nurse Practitioner Family Medicine 11/26/23 Telecommunications Network Engineer Relationship Specialty Start Date End Date Anastacio Hinjoosa MD [address] [place] [phone] PCP - General Family Medicine 11/26/23 Pepper Sexton NP [address] [place] [phone] PCP - [place] [employer] 04/23/24 Pepper Sexton NP [address] [place] [phone] Nurse Practitioner Family Medicine 11/26/23 Telecommunications Network Engineer Relationship Specialty Start Date End Date Anastacio Hinojosa MD [address] [place] [phone] PCP - General Family Medicine 11/26/23 Pepper Sexton NP [address] [place] [phone] PCP - [place] [employer] 04/23/24 Pepper Sexton NP [address] [place] [phone] Nurse Practitioner Family Medicine 11/26/23 Telecommunications Network Engineer Relationship Specialty Start Date End Date Anastacio Hinojosa MD [address] [place] [phone] PCP - General Family Medicine 11/26/23 Pepper Sexton NP [address] [place] [phone] PCP - [place] [employer] 04/23/24 Pepper Sexton NP [address] [place] [phone] Nurse Practitioner Family Medicine 11/26/23 Telecommunications Network Engineer Relationship Specialty Start Date End Date Anastacio Hinojosa MD [address] [place] [phone] PCP - General Family Medicine 11/26/23 Pepper Sexton NP [address] [place] [phone] PCP - [place] [employer] 04/23/24 Pepper Sexton NP [address] [place] [phone] Nurse Practitioner Family Medicine 11/26/23 Telecommunications Network Engineer Relationship Specialty Start Date End Date Anastacio Hinojosa MD [address] [place] [phone] PCP - General Family Medicine 11/26/23 Pepper Sexton NP [address] [place] [phone] PCP - [place] [employer] 04/23/24 Pepper Sexton NP [address] [place] [phone] Nurse Practitioner Family Medicine 11/26/23 Telecommunications Network Engineer Relationship Specialty Start Date End Date Pepper Sexton APRN-HOSPICE ART THERAPIST [address] [place] [phone] PCP - General Nurse Practitioner 05/10/22 Team Status: Active Member Role Status Dates Pepper Sexton Primary Care Provider Active Sta rt: November 24, 2024 Tang Haro MD Attending Provider Active Star t: November 24, 2024 Team Status: Inactive Member Role Status Dates Pepper Sexton Primary Care Provider Active Sta rt: December 02, 2024 End: December 02, 2024 Tang Haro MD Attending Provider Active Star t: December 02, 2024 End: December 02, 2024 Telecommunications Network Engineer Relationship Specialty Start Date End Date Anastacio Hinojosa MD [address] [place] [phone] PCP - General Family Medicine 11/26/23 Pepper Sexton NP [address] [place] [phone] PCP - [place] [employer] 04/23/24 Pepper Sexton NP [address] [place] [phone] Nurse Practitioner Family Medicine 11/26/23 Telecommunications Network Engineer Relationship Specialty Start Date End Date Anastacio Hinojosa MD [address] [place] [phone] PCP - General Family Medicine 11/26/23 Pepper Sexton NP [address] [place] [phone] PCP - [facility] 04/23/24 Pepper Sexton NP [address] [place] [phone] Nurse Practitioner Family Medicine 11/26/23 Goals (unrecognized [...] Refill Reason Comments Post-op Reason Comments Hypertension Reason Comments Follow-up 3m FOR RECORDS PERTAINING TO PATIENTS WHO ARE [...] BE BASED ON THE PRIMARY CLINICAL RECORDS. [employer] provides no warranty or guarantee of the accuracy or completeness of information in this document.
--- NOTE | 2025-02-07 11:56 | ECG_ITS ---
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 Measurements Intervals [place] Rate: 98 P: 37 TN: 166 QRS: -35 QRSD: 90 T: 46 QT: 358 QTc: 413 Interpretive Statements 1100 Sinus rhythm 1973 with frequent ectopic premature complexes 7200 Abnormal left axis deviation 9140 abnormal rhythm ECG Compared to ECG 02/27/2024 09:31:43 Sinus arrhythmia no longer present Electronically Signed On 02-07-2025 13:05:12 EDT by CAMERON FARIAS M.D.
--- NOTE | 2025-02-07 11:59 | ED.GENADUL1 ---
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 intake The patient also has been having some diarrhea since a few days and he had no appetite, patient take magnesium supplement 3 times a day There is tenderness upon palpation of the left lateral malleolus Related Data Home Medications ?Medication ?Instructions ?Recorded ?Confirmed albuterol sulfate 90 mcg/actuation 2 puff inhalation Q6H PRN 02/07/25 02/07/25 aerosol inhaler shortness of breath or wheezing amlodipine 10 mg tablet 10 mg PO DAILY 02/07/25 02/07/25 budesonide-formoterol HFA 160 2 puff inhalation Q12H 02/07/25 02/07/25 mcg-4.5 mcg/actuation aerosol inhaler doxepin 10 mg/mL oral concentrate 10 mg PO BEDTIME 02/07/25 02/07/25 gabapentin 600 mg tablet 600 mg PO BID 02/07/25 02/07/25 hydrocodone 5 mg-acetaminophen 325 1 tab PO Q6H PRN pain 02/07/25 02/07/25 mg tablet levothyroxine 112 mcg tablet 112 mcg PO DAILY 02/07/25 02/07/25 magnesium 200 mg tablet 100 mg PO DAILY 02/07/25 02/07/25 montelukast 10 mg tablet 10 mg PO BEDTIME 02/07/25 02/07/25 nebivolol 10 mg tablet 10 mg PO DAILY 02/07/25 02/07/25 omeprazole 40 mg capsule,delayed 40 mg PO DAILY 02/07/25 02/07/25 release valsartan 320 mg tablet 320 mg PO DAILY 02/07/25 02/07/25 Allergies Allergy/AdvReac Type Severity Reaction Status Date / Time No Known Drug Allergies Allergy Verified 02/27/24 09:26 Opioid HPI Opioid Management Most Recent Opioid Data: Last Pain Scale 8 Today, 11:45 Review of Systems ROS Status of ROS 10 or more systems reviewed and unremarkable except as noted in history and below PFSH PFSH Social History Little interest or pleasure in doing things: not at all Feeling down, depressed, or hopeless: not at all Exam Narrative Exam Narrative: Nurses notes and vital signs reviewed and patient is not hypoxic. General: Well-appearing and in no apparent distress. Skin: Warm, dry, no pallor noted. No rash. Head: Normocephalic, atraumatic. Neck: Supple, non-tender. Cardiovascular: Regular Rate and Rhythm without murmur, gallop or rub. Respiratory: No accessory muscle use or respiratory distress. Lungs are clear to auscultation, no wheezing, rales or rhonchi Chest Wall: no tenderness Back: No midline thoracic or lumbar vertebral tenderness. 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 Normal bowel sounds. No masses appreciated. No tenderness to palpation. No rebound, guarding, or rigidity noted. Neurological: A&O x4. No cranial nerve dysfunction observed. Constitutional Vital Signs, click to edit/add: Last Vital Signs Temp 99.2 F 02/07/25 11:45 Pulse 100 H 02/07/25 11:45 Resp 02/07/25 11:45 BP 105/64 02/07/25 11:45 Pulse Ox 95 02/07/25 11:45 O2 Del Method Room Air 02/07/25 11:45 Course Vital Signs Vital signs: Vital Signs Temperature 99.2 F 02/07/25 11:45 Pulse Rate 100 H 02/07/25 11:45 Respiratory Rate 18 02/07/25 11:45 Blood Pressure 105/64 02/07/25 11:45 Pulse Oximetry 95 02/07/25 11:45 Oxygen Delivery Method Room Air 02/07/25 11:45 Temperature 99.2 F 02/07/25 11:45 Pulse Rate 100 H 02/07/25 11:45 Respiratory Rate 18 02/07/25 11:45 Blood Pressure 105/64 02/07/25 11:45 Pulse Oximetry 95 02/07/25 11:45 Oxygen Delivery Method Room Air 02/07/25 11:45 Medical Decision Making MDM Narrative Medical decision making narrative: The patient EKG the patient EKG showing sinus rhythm with a heart rate of 98 some some ectopic PACs The patient CBC shows leukocytosis of 15 chemistry showing acute kidney injury with a creatinine above 3 Potassium 2.7 and the magnesium 0.7 Patient was started on IV magnesium as well as p.o. potassium was supplemented Presentation is very concerning for an infection he was started after blood cultures on Zosyn and clindamycin IV to cover for possible cellulitis The patient x-ray of the lower extremities shows no acute significant pathology D-dimer is elevated and the patient will be admitted for further evaluation management of cellulitis possible duplex as in pt The patient case was discussed with Dr De La Paz and he agreed with the above-mentioned plan Lab Data Labs: Lab Results 02/07/25 Range/Units 12:02 WBC 15.4 H (4.0-11.0) 10^3/uL RBC 4.35 L (4.70-6.10) 10^6/uL Hgb 13.6 L (14.0-18.0) g/dL Hct 41.1 L (42.0-54.0) % MCV 94.5 H (80.0-94.0) fL MCH 31.3 (25.9-34.0) pg MCHC 33.1 (29.9-35.2) g/dL RDW 14.1 (11.0-15.0) % Plt Count 341 (150-450) 10^3/uL MPV 10.7 (9.5-13.5) fL Neut % (Auto) 78.6 H (43.0-75.0) % Lymph % (Auto) 12.2 L (20.5-60.0) % [place] % (Auto) 7.6 (1.7-12.0) % Eos % (Auto) 0.6 L (0.9-7.0) % Baso % (Auto) 0.4 (0.2-2.0) % Neut # (Auto) 12.1 H (1.4-6.5) 10^3/uL Lymph # (Auto) 1.9 (1.2-3.8) 10^3/uL [place] # (Auto) 1.2 H (0.3-0.8) 10^3/uL Eos # (Auto) 0.1 (0.0-0.7) 10^3/uL Baso # (Auto) 0.1 (0.0-0.1) 10^3/uL Abs Immat Gran (auto) 0.09 H (0.00-0.03) 10^3/uL Imm/Tot Granulo (auto) 0.6 H (0.0-0.5) % ESR 70 H (<=20) mm/hr D-Dimer 1.42 H* (<=0.59) mg/L FEU Sodium 140 (136-145) mmol/L Potassium 2.7 L* (3.5-5.1) mmol/L Chloride 101 (98-107) mmol/L Carbon Dioxide 23.2 (21.0-32.0) mmol/L Anion Gap 18.5 BUN 38.0 H (7.0-18.0) mg/dL Creatinine 3.29 H (0.70-1.30) mg/dL Est GFR ( Amer) 24 L (>=60 mL/min/1.73m^2) Est GFR (Non-Af Amer) 19 L (>=60 mL/min/1.73m^2) BUN/Creatinine Ratio 11.6 Glucose 134 H (74-106) mg/dL Lactate 1.3 (0.4-2.0) mmol/L Calcium 7.7 L (8.5-10.1) mg/dL Magnesium 0.7 L* (1.8-2.4) mg/dL Total Bilirubin 0.9 (0.2-1.0) mg/dL AST 26 (15-37) U/L ALT 35 (16-63) U/L Alkaline Phosphatase 120 H (46-116) U/L C-Reactive Protein 32.29 H (<=0.50) mg/dL Total Protein 8.2 (6.4-8.2) g/dL Albumin 2.8 L (3.4-5.0) g/dL Globulin 5.4 g/dL Albumin/Globulin Ratio 0.5 Discharge Plan Discharge Chief Complaint: Skin/Abscess/Foreign Body Clinical Impression: Hypomagnesemia, MARITZA (acute kidney injury), Acute hypokalemia, D-dimer, elevated Cellulitis Qualifiers: Site of cellulitis: extremity Site of cellulitis of extremity: lower extremity Laterality: left Qualified Code(s): L03.116 - Cellulitis of left lower limb Patient Disposition: Admitted As Inpatient Time of Disposition Decision: 12:49
[2025-02-07 12:17] LABS: Basophils Absolute Auto 0.1 10^3/uL (0.0-0.1); Basophils Percent Auto 0.4 % (0.2-2.0); Eosinophils Absolute Auto 0.1 10^3/uL (0.0-0.7); Eosinophils Percent Auto 0.6 % (0.9-7.0); Hematocrit 41.1 % (42.0-54.0); Hemoglobin 13.6 g/dL (14.0-18.0); Immature Granulocytes Abs Auto 0.09 10^3/uL (0.00-0.03); Immature Granulocytes Pct Auto 0.6 % (0.0-0.5); Lymphocytes Absolute Auto 1.9 10^3/uL (1.2-3.8); Lymphocytes Percent Auto 12.2 % (20.5-60.0); Mean Corpuscular HGB Conc 33.1 g/dL (29.9-35.2); Mean Corpuscular Hemoglobin 31.3 pg (25.9-34.0); Mean Corpuscular Volume 94.5 fL (80.0-94.0); Mean Platelet Volume 10.7 fL (9.5-13.5); Monocytes Absolute Auto 1.2 10^3/uL (0.3-0.8); Monocytes Percent Auto 7.6 % (1.7-12.0); Neutrophils Absolute Auto 12.1 10^3/uL (1.4-6.5); Neutrophils Percent Auto 78.6 % (43.0-75.0); Platelet Count 341 10^3/uL (150-450); Red Blood Count 4.35 10^6/uL (4.70-6.10); Red Cell Distribution Width 14.1 % (11.0-15.0); White Blood Count 15.4 10^3/uL (4.0-11.0)
[2025-02-07 12:29] LABS: Erythrocyte Sedimentation Rate 70 mm/hr (<=20)
[2025-02-07 12:31] LABS: D Dimer 1.42 mg/L FEU (<=0.59)
[2025-02-07 12:33] LABS: Alanine Aminotransferase 35 U/L (16-63); Albumin Globulin Ratio 0.5; Albumin Level 2.8 g/dL (3.4-5.0); Alkaline Phosphatase 120 U/L (46-116); Anion Gap 18.5; Aspartate Amino Transferase 26 U/L (15-37); BUN Creatinine Ratio 11.6; Bilirubin Total 0.9 mg/dL (0.2-1.0); C Reactive Protein 32.29 mg/dL (<=0.50); Calcium 7.7 mg/dL (8.5-10.1); Carbon Dioxide 23.2 mmol/L (21.0-32.0); Chloride 101 mmol/L (98-107); Estimated GFR (African America 24 (>=60 mL/min/1.73m^2); Estimated GFR (Non-African Ame 19 (>=60 mL/min/1.73m^2); Globulin 5.4 g/dL; Glucose 134 mg/dL (74-106); Sodium 140 mmol/L (136-145); Total Protein 8.2 g/dL (6.4-8.2)
[2025-02-07 12:35] LABS: Lactate/Lactic Acid 1.3 mmol/L (0.4-2.0)
[2025-02-07 12:38] LABS: Magnesium 0.7 mg/dL (1.8-2.4); Potassium 2.7 mmol/L (3.5-5.1)
[2025-02-07] MEDS: 0.9 % SODIUM CHLORIDE 1,000 ML 1000 ML IV ×2 (12:52→17:17)
[2025-02-07] MEDS: POTASSIUM BICARBONATE/CIT 25 MEQ TABLET EFF 50 MEQ PO (12:53)
[2025-02-07] MEDS: MAGNESIUM SULFATE IN WATER 2 GM/50 ML PREMIX IV (12:56)
[2025-02-07] MEDS: PIPERACILLIN SODIUM/TAZOBACTAM 4.5 GM in 0.9 % SODIUM CHLORIDE 50 ML IV (13:00)
[2025-02-07] MEDS: CLINDAMYCIN PHOSPHATE/D5W 600 MG/50 ML PREMIX 100 MG IV ×2 (13:31→22:56)
--- OUTSIDE RECORDS SUMMARY | 2025-02-07 13:57 | XMS_ITS | CCD ---
Author Organization [facility] Care Team Providers Care Deli Bakery Clerk Name Role Phone AICHHOLZ, AQUACULTURIST PEPPER Primary Care Unavailable AICHHOLZ, AQUACULTURIST PEPPER Consulting Unavailable AICHHOLZ, AQUACULTURIST PEPPER Attending Unavailable AICHHOLZ, AQUACULTURIST PEPPER Admitting Unavailable AICHHOLZ, AQUACULTURIST PEPPER Consulting Unavailable AICHHOLZ, AQUACULTURIST PEPPER Attending Unavailable AICHHOLZ, AQUACULTURIST PEPPER Admitting Unavailable AICHHOLZ, AQUACULTURIST PEPPER Primary Care Unavailable AICHHOLZ, AQUACULTURIST PEPPER Primary Care Unavailable DR CRIS GAN V Consulting Unavailable AICHHOLZ, AQUACULTURIST PEPPER Attending Unavailable AICHHOLZ, AQUACULTURIST PEPPER Admitting Unavailable AICHHOLZ, AQUACULTURIST PEPPER Consulting Unavailable AICHHOLZ, AQUACULTURIST PEPPER Primary Care Unavailable AICHHOLZ, AQUACULTURIST PEPPER Consulting Unavailable AICHHOLZ, AQUACULTURIST PEPPER Attending Unavailable AICHHOLZ, AQUACULTURIST PEPPER Admitting Unavailable AICHHOLZ, AQUACULTURIST PEPPER Primary Care Unavailable AICHHOLZ, AQUACULTURIST PEPPER Consulting Unavailable AICHHOLZ, AQUACULTURIST PEPPER Attending Unavailable AICHHOLZ, AQUACULTURIST PEPPER Admitting Unavailable AICHHOLZ, PEPPER J Referring [...] Unavailable Ashish CARTAGENA, Anastacio Primary Care Provider [phone] Aichholz MUSIC REHABILITATION THERAPIST, Pepper Unavailable Aichholz MUSIC REHABILITATION THERAPIST, Pepper Unavailable Aichholz, Pepper J Primary Care Provider [phone] MD James Elaine Attending Provider [phone] Pepper Sexton Primary Care Provider James Elaine MD Attending Provider Pepper Sexton Primary Care Unavailable Asaad, Imad Attending Unavailable Asaad, Imad Admitting Unavailable Asaad, Imad Admitting Unavailable Pepper Sexton Primary Care Unavailable Asaad, Imad Attending Unavailable Pepper Hoffmann Primary Care Provider Pepper Sexton Primary Care Provider James Elaine MD Attending Provider KARUNA CARRANZA [...] every six hours for pain HYDROcodone-aceta minophen ([place]) 5-325 MG tablet Indications: Post-operative pain Take 1 tablet by mouth every 6 (six) hours if needed for severe pain for up to 3 days 12 tablet 05/26/2024 05/29/2024 Active [id number] 200 actuat albuterol 0.09 mg/actuat metered dose [...] Start: 03-19-2024 take 1 capsule by mo [facility] once daily at bedtime Doxepin 100 mg [...] 09, 2024 1:23pm take 1 [facility] the [facility] omeprazole (PriLOSEC) 40 mg [...] WITH AUTO DIFFon BASOPHILS ABSOLUTE AUTO 0.1 [facility] Basophils/100 WBC (Bld) 0.8 % 0.2 - 2.0 % [facility] Eosinophils/100 WBC (Bld) 6.2 % 0.9 - 7.0 % [facility] Erythrocyte distribution width (RBC) [Ratio] 13.7 % 11.0 - 15.0 % [facility] Hematocrit (Bld) [Volume fraction] 42 % 42.0 - 54.0 % [facility] Hemoglobin (Bld) [Mass/Vol] 13.6 g/dL Low 14.0 - 18.0 g/dL [facility] IMMATURE GRANULOCYTES ABS AUTO 0.03 [facility] Immature granulocytes/100 WBC (Bld) 0.3 % 0.0 - 0.5 % [facility] Interpretation and review of laboratory results Abnormal [facility] LYMPHOCYTES ABSOLUTE AUTO 1.8 [facility] Lymphocytes/100 WBC (Bld) 21 % 20.5 - 60.0 % [facility] MCH (RBC) [Entitic mass] 31.1 pg 25.9 - 34.0 pg [facility] MCHC (RBC) [Mass/Vol] 32.4 g/dL 29.9 - 35.2 g/dL [facility] MCV (RBC) [Entitic vol] 95.9 fL High 80.0 - 94.0 fL [facility] MONOCYTES ABSOLUTE AUTO 0.5 [facility] Monocytes/100 WBC (Bld) 6.1 % 1.7 - 12.0 % [facility] NEUTROPHILS ABSOLUTE AUTO 5.8 [facility] Neutrophils/100 WBC (Bld) 65.6 % 43.0 - 75.0 % [facility] Platelet mean volume (Bld) [Entitic vol] 9.6 fL 9.5 - 13.5 fL [facility] EO # 0.5 [facility] PLT 306 [facility] RBC 4.38 Low [facility] WBC 8.8 Pending sale to [facility] ALL MAGNESIUMon 11-24-2024 Interpretation and review of laboratory results Abnormal [facility] Magnesium [Mass/Vol] 1.1 mg/dL Low 1.8 - 2 .4 mg/dL Pending sale to [facility] Laboratory - Chemistry and C hemistry - challengeon 11-24-2024 Magnesium [Mass/Vol] 1.1 mg/dL Low 1.8-2.4 [facility] ALL MAGNESIUMon 11-05-2024 Interpretation and review of laboratory results Abnormal [facility] Magnesium [Mass/Vol] 0.7 mg/dL Critically low 1.8 - 2.4 mg/dL [facility] Comment on above: RESULTS CALLED TO EZEQUIEL BOOTH MA AT OFFICE BY Violeta Gold at 1056 [facility] ALL MAGNESIUMon 10-07-2024 Interpretation and review of laboratory results Abnormal [facility] Magnesium [Mass/Vol] 0.8 mg/dL Critically low 1.8 - 2.4 mg/dL [facility] Comment on above: RESULTS CALLED TO [facility] THYROID STIM HORMONEon 0 10-07-2024 TSH Qn 2.054 m[IU]/L [facility] HbA1c (Bld) [Mass fraction]o n 10-07-2024 Interpretation and review of laboratory results Normal [facility] Laboratory - Hematology and Cell countson 10-07-2024 HbA1c (Bld) [Mass fraction] 5.60 % [facility] No Panel Informationon 10-07 [facility] Amphetamine Screen Ql (U)Ord ered By: James Elaine on 10-06-2024 Amphetamines Ql (U) Amphetamines screen Negativ e [facility] Barbiturates [Presence] in U rine by Screen methodOrdered By: James Elaine on 10-06-2024 Barbiturates Screen Ql (U) Barbiturates [Presence] in Urine by Screen method Negative [facility] Benzodiazepines Screen Ql (U )Ordered By: James Elaine on 10-06-2024 Benzodiazepines Ql (U) Benzodiazepines [Presence] in Urine by Screen method Negative [facility] Benzoylecgonine [Presence] i n Urine by Screen methodOrdered By: Imad Asaad on 10-06-2024 Benzoylecgonine Screen Ql (U) Benzoylecgonine [Presence] in Urine by Screen method Negative [facility] Cannabinoids [Presence] in U rine by Screen methodOrdered By: Imrosalie Asarosalie on 10-06-2024 Cannabinoids Screen Ql (U) Cannabinoids [Presence] in Urine by Screen method High Negative [facility] Comment on above: These are unconfirme d results and should not be used for legal purposes. Drug Cut-Off Concentration: AMPH 1000 ng/mL MAX 200 ng/mL JUHI 200 ng/mL COCM 300 ng/mL OP 300 ng/mL PCP 25 ng/mL THC 20 ng/mL Drug Screen,Urineon 10-06-19 Amphetamine Screen,Urine Negative Normal Negative [facility] Comment on above: Performed By: #### U RDS #### [address] Barbiturate Screen,Urine Negative Normal Negative [facility] Comment on above: Performed By: #### U RDS #### [facility] [address] [place] [address] [place] Benzodiazepines Screen,Urine Negative Normal Negative [facility] Comment on above: Performed By: #### U RDS #### [facility] [address] [place] [address] [place] Cannabinoid Screen,Urine Positive High Negative [facility] Comment on above: Result Comment: Thes e are unconfirmed results and should not be used for legal purposes. Drug Cut-Off Concentration: AMPH 1000 ng/mL MAX 200 ng/mL JUHI 200 ng/mL COCM 300 ng/mL OP 300 ng/mL PCP 25 ng/mL THC 20 ng/mL PERFORMED BY: [place] [address] PATHOLOGIST STAFFING BRANCH MANAGER JAN GRIMES M.D. Performed By: #### U RDS #### [facility] [address] Cocaine Screen,Urine Negative Normal Negative [facility] Comment on above: Performed By: #### U RDS #### [facility] [address] [place] [address] Opiate Screen,Urine Negative Normal Negative [facility] Comment on above: Performed By: #### U RDS #### [address] Phencyclidine Screen,Urine Negative Normal Negative [facility] Comment on above: Performed By: #### U RDS #### [address] Luciano 10-06-2024 L Specimen: [id number] Received: 10/06/24 Status: SAHIL Ruiz Num: [id number] Spec Type: Surgical Subm Dr: James Elaine MD Tissues: A Esophagus Biopsy (ESOPHAGUS BX R/O BARRETTS) Procedures: HE/2, Gross/Micro L4 Age/ Patient Sex Location Account Attending Physician Abram Guillaume 58/M [id number] James Elaine MD SPEC NUM: [id number] RECD: 10/06/24 STATUS: SAHIL RUIZ NUM: [id number] PHILLIP: 10/06/[address] [facility] [address]: James Elaine MD ENTERED: 10/06/[address] [facility] [address]: SPEC TYPE: Surgical DEPT: S ENTERED BY: [id number] RECV BY: [id number] ORDERED: HE/2, Gross/Micro L4 ORDERED: HE/2, Gross/Micro [...] [id number] Received: 10/06/24 Status: SAHIL Ruiz Num: [id number] Spec Type: Surgical Subm Dr: James Elaine MD Tissues: A Esophagus Biopsy (ESOPHAGUS BX R/O BARRETTS) Procedures: Trent MARIEE L4 Patient: Abram Guillaume [id number] (Continued) Specimen: [id number] Received: 10/06/24 (Continued) Signed (signature on file) Sandro Baird MD 10/07/24 1009 Specimen: [id number] Received: 10/06/24 Status: SAHIL Ruiz Num: [id number] Spec Type: Surgical Subm Dr: James Elaine MD Tissues: A Esophagus Biopsy (ESOPHAGUS BX R/O BARRETTS) Procedures: Twila MARIEE/Matt L4 Patient: Abram Guillaume [id number] (Continued) Specimen: S2 Received: 10/06/24 (Continued) CPT Codes 35906 Specimen: S2 Received: 10/06/24 Status: SAHIL Ruiz Num: [id number] Spec Type: Surgical Subm Dr: James Elaine MD Tissues: A Esophagus Biopsy (ESOPHAGUS BX R/O BARRETTS) Procedures: HE/2, Gross/Micro L4 Patient: Abram Guillaume [id number] (Continued) Signed (signature on file) Sandro Baird MD 10/07/24 1009 Normal [facility] Opiates [Presence] in Urine by Screen methodOrdered By: James Elaine on 10-06-2024 Opiates Screen Ql (U) Opiates [Presence] in Urine by Screen method Negative [facility] Phencyclidine Screen Ql (U)O rdered By: James Elaine on 10-06-2024 Phencyclidine Ql (U) Phencyclidine [Presence] in Urine by Screen method Negative [facility] ALL BASIC METABOLIC PANELon 09-28-2024 Anion [...] 143 mmol/L 136 - 145 mmol/L [facility] TBH EGFR-NON AF POLISH 45 Low >=60 mL/min/1.73m 2 [facility] Urea nitrogen [Mass/Vol] 17 mg/dL 7.0 - 18.0 mg/dL [facility] Urea nitrogen/Creatinine [Mass ratio] 10.6 mg/mg [facility] ALL MAGNESIUMon 09-28-2024 Magnesium [Mass/Vol] 0.8 mg/dL Critically low 1.8 - 2.4 mg/dL [facility] Comment on above: RESULTS CALLED TO ELIZABETH SEXTON NP No Panel Informationon 09-28 Interpretation and review of laboratory results Abnormal [facility] Amphetamine Screen Ql (U)Ord ered By: ad Asa on 07-09-2024 Amphetamines Ql (U) Amphetamines screen Negativ e [facility] Amphetamines Ql (U) Negative Negative [facility] [place] Barbiturates [Presence] in U rine by Screen methodOrdered By: Imad Asaad on 07-09-2024 Barbiturates Screen Ql (U) Negative Negative [facility] Barbiturates Screen Ql (U) Barbiturates [Presence] in Urine by Screen method Negative [facility] Benzodiazepines Screen Ql (U )Ordered By: Imad Asaad on 07-09-2024 Benzodiazepines Ql (U) Negative Negative [facility] Benzodiazepines Ql (U) Benzodiazepines [Presence] in Urine by Screen method Negative [facility] Benzoylecgonine [Presence] i n Urine by Screen methodOrdered By: Imad Asaad on 07-09-2024 Benzoylecgonine Screen Ql (U) Negative Negative [facility] Benzoylecgonine Screen Ql (U) Benzoylecgonine [Presence] in Urine by Screen method Negative [facility] Cannabinoids [Presence] in U rine by Screen methodOrdered By: Imad Asaad on 07-09-2024 Cannabinoids Screen Ql (U) Negative Negative [facility] Comment on above: These are unconfirme d results and should not be used for legal purposes. Drug Cut-Off Concentration: AMPH 1000 ng/mL MAX 200 ng/mL JUHI 200 ng/mL COCM 300 ng/mL OP 300 ng/mL PCP 25 ng/mL THC 20 ng/mL Cannabinoids Screen Ql (U) Cannabinoids [Presence] in Urine by Screen method Negative [facility] Comment on above: These are unconfirme d results and should not be used for legal purposes. Drug Cut-Off Concentration: AMPH 1000 ng/mL MAX 200 ng/mL JUHI 200 ng/mL COCM 300 ng/mL OP 300 ng/mL PCP 25 ng/mL THC 20 ng/mL Drug Screen,Urineon 07-09-20 Amphetamine Screen,Urine Negative Normal Negative [facility] Comment on above: Performed By: #### U RDS #### [address] Barbiturate Screen,Urine Negative Normal Negative [facility] Comment on above: Performed By: #### U RDS #### [address] Benzodiazepines Screen,Urine Negative Normal Negative [facility] Comment on above: Performed By: #### U RDS #### [address] Cannabinoid Screen,Urine Negative Normal Negative [facility] Comment on above: Result Comment: Thes e are unconfirmed results and should not be used for legal purposes. Drug Cut-Off Concentration: AMPH 1000 ng/mL MAX 200 ng/mL JUHI 200 ng/mL COCM 300 ng/mL OP 300 ng/mL PCP 25 ng/mL THC 20 ng/mL PERFORMED BY: [place] [address] PATHOLOGIST STAFFING BRANCH MANAGER ZUHAIR KAUR M.D. Performed By: #### U RDS #### [address] Cocaine Screen,Urine Negative Normal Negative [facility] Comment on above: Performed By: #### U RDS #### [place] [address] [place] Opiate Screen,Urine Negative Normal Negative [facility] Comment on above: Performed By: #### U RDS #### [address] Phencyclidine Screen,Urine Negative Normal Negative [facility] Comment on above: Performed By: #### U RDS #### [facility] [address] No Panel InformationOrdered By: James Elaine on 07-09-2024 Miscellaneous Pathology Test See comment [facility] Comment on above: See report. Scanned copy available in EMR. Opiates [Presence] in Urine by Screen methodOrdered By: Imad Asaad on 07-09-2024 Opiates Screen Ql (U) Negative Negative [facility] Opiates Screen Ql (U) Opiates [Presence] in Urine by Screen method Negative [facility] Pathology Request for Lab Co rpon 07-09-2024 Pathology Request for Lab Itzel Normal [facility] Comment on above: Order Comment: PATHO LOGY GI SPECIMEN Result Comment: See report. Scanned copy available in EMR. PERFORMED BY: [place] [address] PATHOLOGIST STAFFING BRANCH MANAGER ZUHAIR KAUR M.D. Performed By: #### P ATH TO [facility] #### [address] Phencyclidine Screen Ql (U)O rdered By: James Elaine on 07-09-2024 Phencyclidine Ql (U) Negative Negative [facility] Phencyclidine Ql (U) Phencyclidine [Presence] in Urine by Screen method Negative [facility] ALL MAGNESIUMon 06-23-2024 Magnesium [Mass/Vol] 1.5 mg/dL Low 1.8 - 2 .4 mg/dL [facility] ALL RENAL FUNCTION PANELon 1 Albumin [Mass/Vol] 3.3 g/dL Low 3.4 - 5.0 g/dL [facility] Anion gap [Moles/Vol] 12.6 mmol/L [facility] Calcium [Mass/Vol] 8.7 mg/dL 8.5 - 10. 1 mg/dL [facility] Chloride [Moles/Vol] 104 mmol/L 98 - 10 7 mmol/L [facility] CO2 [Moles/Vol] 26.1 mmol/L 21.0 - 32.0 mmol/L [facility] Creatinine [Mass/Vol] 1.72 mg/dL High 0.70 - 1.30 mg/dL [facility] GFR/1.73 sq M.predicted CKD-EPI (S/P/Bld) [Vol rate/Area] 50 Low 60 - PINF [facility] Glucose [Mass/Vol] 114 mg/dL High 74 - 106 mg/dL [facility] Phosphate [Mass/Vol] 3.2 mg/dL 2.6 - 4 .7 mg/dL [facility] Potassium [Moles/Vol] 4.7 mmol/L 3.5 - 5.1 mmol/L [facility] Sodium [Moles/Vol] 138 mmol/L 136 - 145 mmol/L [facility] EGFR-NON AF POLISH 41 Low 60 - PINF [facility] Urea nitrogen [Mass/Vol] 30.0 mg/dL High 7.0 - 18.0 mg/dL [facility] Urea nitrogen/Creatinine [Mass ratio] 17.4 mg/mg [facility] ALL URIC ACIDon 06-23-2024 Urate [Mass/Vol] 8.0 mg/dL High 3.5 - 7.2 mg/dL [facility] Estimated glomerular filtrat ion rate (GFR) non- Americanon 06-23-2024 GFR/1.73 sq M.predicted among non-blacks MDRD (S/P/Bld) [Vol rate/Area] 41 mL/min/{1.73_m2} Low >=[address] [facility] Laboratory - Chemistry and C hemistry - challengeon 06-23-2024 Albumin [Mass/Vol] 3.3 g/dL Low 3.4-5.0 [facility] Calcium [Mass/Vol] 8.7 mg/dL 8.5-10.1 [facility] Chloride [Moles/Vol] 104 mmol/L 98-107 [facility] CO2 [Moles/Vol] 26.1 mmol/L 21.0-32.0 [facility] Creatinine [Mass/Vol] 1.72 mg/dL High 0.70-1.30 [facility] GFR/1.73 sq M.predicted MDRD (S/P/Bld) [Vol rate/Area] 50 mL/min/{1.73_m2} Low >=[address] [facility] Glucose [Mass/Vol] 114 mg/dL High 74-106 [facility] Magnesium [Mass/Vol] 1.5 mg/dL Low 1.8-2.4 [facility] Potassium [Moles/Vol] 4.7 mmol/L 3.5-5.1 [facility] Sodium [Moles/Vol] 138 mmol/L 136-145 [facility] Urate [Mass/Vol] 8.0 mg/dL High 3.5-7.2 [facility] Urea nitrogen [Mass/Vol] 30.0 mg/dL High 7.0-18.[address] [facility] Urea nitrogen/Creatinine [Mass ratio] 17.4 mg/mg [facility] Laboratory - Urinalysison Protein (U) [Mass/Vol] 12.6 mg/dL High <=11.9 [facility] No Panel Informationon 06-23 Urine Random Creatinine 78.13 mg/dL 20.00-300.[address] [facility] Interpretation and review of laboratory results Abnormal [facility] Phosphorus Level 3.2 mg/dL 2.6-4.7 [facility] Serum or plasma anion gap de terminationon 06-23-2024 Anion gap [Moles/Vol] 12.6 mmol/L [facility] Urine protein/creatinine rat ioon 06-23-2024 Protein/Creatinine (U) [Ratio] 0.[address] [facility] BASIC METABOLIC PANLon 04-27 Anion gap [Moles/Vol] 9 mmol/L Normal 5-15 [facility] Comment on above: Performed By: #### B MP #### [facility] ([id number]) [address], [address] [place] [address] Calcium [Mass/Vol] 9.5 mg/dL Normal 8.5-10.5 [facility] Comment on above: Performed By: #### B MP #### [facility] ([id number]) [address] [place] [address] Chloride [Moles/Vol] 105 mmol/L Normal 98-109 [facility] Comment on above: Performed By: #### B MP #### [facility] ([id number]) [address], [address] [place] [address] CO2 [Moles/Vol] 25 mmol/L Normal 22-32 [facility] Comment on above: Performed By: #### B MP #### [facility] ([id number]) [address], [address] [place] [address] Creatinine [Mass/Vol] 1.60 mg/dL High 0.60-1.30 [facility] Comment on above: Result Comment: METH OD TRACEABLE TO IDMS STANDARD Performed By: #### B MP #### [facility] ([id number]) [address], [address] [place] [address] GFR/1.73 sq M.predicted among non-blacks MDRD (S/P/Bld) [Vol rate/Area] 50 mL/min/{1.73_m2} Low >59 [facility] Comment on above: Result Comment: Reported eGFR is based on the CKD-EPI 2020 equation that does not use a race coefficient. Performed By: #### B MP #### [facility] ([id number]) [address], [address] [place] [address] Glucose [Mass/Vol] 104 mg/dL High 65-99 [facility] Comment on above: Performed By: #### B MP #### [facility] ([id number]) [address] [place] [address] Potassium [Moles/Vol] 4.2 mmol/L Normal 3.5-5.0 [facility] Comment on above: Performed By: #### B MP #### [facility] ([id number]) [address], [address] [place] [address] Sodium [Moles/Vol] 139 mmol/L Normal 134-146 [facility] Comment on above: Performed By: #### B MP #### [facility] ([id number]) [address] [place] [address] Urea nitrogen [Mass/Vol] 31 mg/dL High 5-23 [facility] Comment on above: Performed By: #### B MP #### [facility] ([id number]) [address] [place] [address] Basic Metabolic Panelon 080 Anion gap [Moles/Vol] 9 mmol/L 5 - 15 mmol/L [facility] Calcium [Mass/Vol] 9.5 mg/dL 8.5 - 10. 5 mg/dL [facility] Chloride [Moles/Vol] 105 mmol/L 98 - 10 9 mmol/L [facility] CO2 [Moles/Vol] 25 mmol/L 22 - 32 mmol/L [facility] Creatinine [Mass/Vol] 1.60 mg/dL High 0.60 - 1.30 mg/dL [facility] Comment on above: METHOD TRACEABLE TO IDMI STANDARD eGFR (CKD-EPI)non-race dependent 50 Low - PINF [facility] Comment on above: Reported eGFR is based on the CKD-EPI 2020 equation that does not use a race coefficient. Glucose [Mass/Vol] 104 mg/dL High 65 - 99 mg/dL [facility] Interpretation and review of laboratory results Abnormal [facility] Potassium [Moles/Vol] 4.2 mmol/L 3.5 - 5.0 mmol/L [facility] Sodium [Moles/Vol] 139 mmol/L 134 - 146 mmol/L [facility] Urea nitrogen [Mass/Vol] 31 mg/dL High 5 - 23 mg/dL [facility] CBC AUTO DIFFon 07-19-2022 BASO # 0.1 103/ul Normal 0.0-0.1 [facility] Comment on above: Performed By: #### C BC #### [facility] [address] [address] [address] Lavonne Tinoco Basophils/100 WBC (Bld) 0.9 % Normal 0.2-2.0 [facility] Comment on above: Performed By: #### C BC #### [facility] [address] [place] [address] Dr. Lavonne Tinoco EO # 0.4 103/ul Normal 0.0-0.7 [facility] Comment on above: Performed By: #### C BC #### [facility] [address] [place] [address] Dr. Lavonne Tinoco Eosinophils/100 WBC (Bld) 4.5 % Normal 0.9-7.0 [facility] Comment on above: Performed By: #### C BC #### [facility] [address] [place] [address] Dr. Lavonne Tinoco Erythrocyte distribution width (RBC) [Ratio] 13.4 % Normal 11.0-15.0 [facility] Comment on above: Performed By: #### C BC #### [facility] [address] [place] [address] Dr. Lavonne Tinoco Hematocrit (Bld) [Volume fraction] 45.0 % Normal 42.0-54.0 [facility] Comment on above: Performed By: #### C BC #### [facility] [address] [place] [address] Dr. Lavonne Tinoco Hemoglobin (Bld) [Mass/Vol] 15.1 g/dL Normal 14.0-18.0 [facility] Comment on above: Performed By: #### C BC #### [facility] [address] [place] [address] Dr. Lavonne Tinoco IG # 0.04 10e3/ul Critically high 0.00-0.03 [facility] Comment on above: Performed By: #### C BC #### [facility] [address] [place] [address] Dr. Lavonne Tnioco IG % 0.4 % Normal 0.0-0.5 [facility] Comment on above: Performed By: #### C BC #### [facility] [address] [place] [address] Dr. Lavonne Tinoco LYMPH # 2.0 103/ul Normal 1.2-3.8 [facility] Comment on above: Performed By: #### C BC #### [facility] [address] [address] [address] Lavonne Tinoco Lymphocytes/100 WBC (Bld) 21.6 % Normal 20.5-60.0 [facility] Comment on above: Performed By: #### C BC #### [facility] [address] [address] [address] Lavonne Tinoco MANUAL DIFF REQ NO Normal [facility] Comment on above: Performed By: #### C BC #### [facility] [address] [place] [address] Dr. Lavonne Tinoco MCH (RBC) [Entitic mass] 32.7 pg Normal 25.9-34.0 The [facility] Comment on above: Performed By: #### C BC #### [facility] [address] [place] [address] Dr. Lavonne Tinoco MCHC (RBC) [Mass/Vol] 33.6 g/dL Normal 29.9-35.2 The [facility] Comment on above: Performed By: #### C BC #### [facility] [address] [place] [address] Dr. Lavonne Tinoco MCV (RBC) [Entitic vol] 97.4 fL Critically high 80.0-94.0 [facility] Comment on above: Performed By: #### C BC #### [facility] [address] [place] [address] Dr. Lavonne Tinoco MONO # 0.6 103/ul Normal 0.3-0.8 The [facility] Comment on above: Performed By: #### C BC #### [facility] [address] [place] [address] Dr. Lavonne Tinoco Monocytes/100 WBC (Bld) 6.0 % Normal 1.7-12.0 The [facility] Comment on above: Performed By: #### C BC #### [facility] [address] [place] [address] Dr. Lavonne Tinoco NEUT # 6.3 103/ul Normal 1.4-6.5 The [facility] Comment on above: Performed By: #### C BC #### [facility] [address] [address] [address] Lavonne Tinoco Neutrophils/100 WBC (Bld) 66.6 % Normal 43.0-75.0 [facility] Comment on above: Performed By: #### C BC #### [facility] [address] [address] [address] Lavonne Tinoco Platelet mean volume (Bld) [Entitic vol] 10.7 fL Normal 9.5-13.5 [facility] Comment on above: Performed By: #### C BC #### [facility] [address] [address] [address] Lavonne Tinoco PLT 300 103/ul Normal 150-450 [facility] Comment on above: Performed By: #### C BC #### [facility] [address] [place] [address] Dr. Lavonne Tinoco RBC 4.62 106/ul Critically low 4.70-6.10 [facility] Comment on above: Performed By: #### C BC #### [facility] [address] [address] [address] Lavonne Tinoco WBC 9.4 103/ul Normal 4.0-11.0 [facility] Comment on above: Performed By: #### C BC #### [facility] [address] [place] [address] Dr. Lavonne Tinoco FREE T4on 07-19-2022 Free T4 [Mass/Vol] 0.90 ng/dL Normal 0.76-1.46 [facility] Comment on above: Performed By: #### C MP, TSH, LIPID #### [facility] [address] [address] [address] Lavonne Tinoco LIPID PROFILEon 07-19-2022 CHOL-HDL RATIO NORM SEE BELOW Normal [facility] Comment on above: Result Comment: 3.3 - 4.4 LOW RISK 4.4 - 7.1 AVERAGE RISK 7.1 - 11.0 MODERATE RISK >11.0 HIGH RISK Performed By: #### C MP, TSH, LIPID #### [facility] [address] [address] [address] Lavonne Tinoco Cholesterol [Mass/Vol] 207 mg/dL Critically high <=200 [facility] Comment on above: Performed By: #### C MP, TSH, LIPID #### [facility] [address] [address] [address] Lavonne Tinoco Cholesterol in HDL [Mass/Vol] 37 mg/dL Critically low 40-60 [facility] Comment on above: Performed By: #### C MP, TSH, LIPID #### [facility] [address] [address] [address] Lavonne Tinoco Cholesterol in LDL [Mass/Vol] 143.8 mg/dL Normal [facility] Comment on above: Performed By: #### C MP, TSH, LIPID #### [facility] [address] [address] [address] Lavonne Tinoco Cholesterol.total/Chol esterol in HDL [Mass ratio] 5.6 {ratio} Normal [facility] Comment on above: Performed By: #### C MP, TSH, LIPID #### [facility] [address] [address] [address] Lavonne Tinoco HDL NORMAL > or = 60 mg/dl - LOW CARDIOVASCULAR RISK <40 mg/dl - HIGH CARDIOVASCULAR RISK Normal [facility] Comment on above: Performed By: #### C MP, TSH, LIPID #### [facility] [address] [address] [address] Lavonne Tinoco LDL CALC NORMAL SEE BELOW Normal [facility] Comment on above: Result Comment: <100 mg/dl OPTIMAL 100 - 129 mg/dl NEAR OR ABOVE OPTIMAL 130 - 159 mg/dl BORDERLINE HIGH 160 - 189 mg/dl HIGH >190 mg/dl VERY HIGH Performed By: #### C MP, TSH, LIPID #### [facility] [address] [address] [address] Lavonne Tinoco Triglyceride [Mass/Vol] 131 mg/dL Normal <=150 The [facility] Comment on above: Performed By: #### C MP, TSH, LIPID #### [facility] [address] [address] [address] Lavonne Tinoco VLDL CALC 26.2 mg/dL Normal [facility] Comment on above: Performed By: #### C MP, TSH, LIPID #### [facility] [address] [place] [address] Dr. Lavonne Tinoco PROF 14(COMP METB)on 022 Albumin [Mass/Vol] 3.6 g/dL Normal 3.4-5.0 [facility] Comment on above: Performed By: #### C MP, TSH, LIPID #### [facility] [address] [place] [address] Dr. Lavonne Tinoco Albumin/Globulin [Mass ratio] 1.0 {ratio} Normal [facility] Comment on above: Performed By: #### C MP, TSH, LIPID #### [facility] [address] [place] [address] Dr. Lavonne Tinoco ALP [Catalytic activity/Vol] 85 U/L Normal 46-116 [facility] Comment on above: Performed By: #### C MP, TSH, LIPID #### [facility] [address] [place] [address] Dr. Lavonne Tinoco ALT [Catalytic activity/Vol] 33 U/L Normal 16-63 [facility] Comment on above: Performed By: #### C MP, TSH, LIPID #### [facility] [address] [place] [address] Dr. Lavonne Tinoco Anion gap [Moles/Vol] 9.2 mmol/L Normal [facility] Comment on above: Performed By: #### C MP, TSH, LIPID #### [facility] [address] [place] [address] Dr. Lavonne Tinoco AST [Catalytic activity/Vol] 17 U/L Normal 15-37 [facility] Comment on above: Performed By: #### C MP, TSH, LIPID #### [facility] [address] [place] [address] Dr. Lavonne Tinoco Bilirubin [Mass/Vol] 0.5 mg/dL Normal 0.2-1.0 [facility] Comment on above: Performed By: #### C MP, TSH, LIPID #### [facility] [address] [place] [address] Dr. Lavonne Tinoco Calcium [Mass/Vol] 8.5 mg/dL Normal 8.5-10.1 [facility] Comment on above: Performed By: #### C MP, TSH, LIPID #### [facility] [address] [place] [address] Dr. Lavonne Tinoco Chloride [Moles/Vol] 106 mmol/L Normal 98-107 The [facility] Comment on above: Performed By: #### C MP, TSH, LIPID #### [facility] [address] [place] [address] Dr. Lavonne Tinoco CO2 [Moles/Vol] 31.3 mmol/L Normal 21.0-32.0 [facility] Comment on above: Performed By: #### C MP, TSH, LIPID #### [facility] [address] [place] [address] Dr. Lavonne Tinoco Creatinine [Mass/Vol] 1.06 mg/dL Normal 0.70-1.30 [facility] Comment on above: Performed By: #### C MP, TSH, LIPID #### [facility] [address] [place] [address] Dr. Lavonne Tinoco EGFR-AF POLISH >60 Normal >=60 [facility] Comment on above: Performed By: #### C MP, TSH, LIPID #### [facility] [address] [place] [address] Dr. Lavonne Tinoco EGFR-NON AF POLISH >60 Normal >=60 [facility] Comment on above: Performed By: #### C MP, TSH, LIPID #### [facility] [address] [place] [address] Dr. Lavonne Tinoco Globulin (S) [Mass/Vol] 3.6 g/dL Normal The [facility] Comment on above: Performed By: #### C MP, TSH, LIPID #### [facility] [address] [place] [address] Dr. Lavonne Tinoco Glucose [Mass/Vol] 101 mg/dL Normal 74-106 The [facility] Comment on above: Performed By: #### C MP, TSH, LIPID #### [facility] [address] [place] [address] Dr. Lavonne Tinoco Potassium [Moles/Vol] 3.5 mmol/L Normal 3.5-5.1 [facility] Comment on above: Performed By: #### C MP, TSH, LIPID #### [facility] [address] [address] [address] Lavonne Tinoco Protein [Mass/Vol] 7.2 g/dL Normal 6.4-8.2 [facility] Comment on above: Performed By: #### C MP, TSH, LIPID #### [facility] [address] [address] [address] Lavonne Tinoco Sodium [Moles/Vol] 143 mmol/L Normal 136-145 [facility] Comment on above: Performed By: #### C MP, TSH, LIPID #### [facility] [address] [place] [address] Dr. Lavonne Tinoco Urea nitrogen [Mass/Vol] 21.0 mg/dL Critically high 7.0-18.0 [facility] Comment on above: Performed By: #### C MP, TSH, LIPID #### [facility] [address] [place] [address] Dr. Lavonne Tinoco Urea nitrogen/Creatinine [Mass ratio] 19.8 mg/mg Normal The [facility] Comment on above: Performed By: #### C MP, TSH, LIPID #### [facility] [address] [place] [address] Dr. Lavonne Tinoco TSHon 07-19-2022 TSH 1.947 uIU/mL Normal 0.358-3.740 [facility] Comment on above: Performed By: #### C MP, TSH, LIPID #### [facility] [address] [place] [address] Dr. Lavonne Tinoco UA RANDOM W/MICROSCOPICon BACTERIA NONE SEEN Normal NONE SEEN The [facility] Comment on above: Performed By: #### U AMIC #### [facility] [address] [place] [address] Dr. Lavonne Tinoco Bilirubin Ql (U) Negative Normal NEGATIVE [facility] Comment on above: Performed By: #### U AMIC #### [facility] [address] [address] [address] Lavonne Tinoco CAST NONE SEEN Normal NONE SEEN The [facility] Comment on above: Performed By: #### U AMIC #### [facility] [address] [address] [address] Lavonne Tinoco Clarity (U) CLEAR Normal CLEAR The [facility] Comment on above: Performed By: #### U AMIC #### [facility] [address] [place] [address] Dr. Lavonne Tinoco Color (U) YELLOW Normal YELLOW The [facility] Comment on above: Performed By: #### U AMIC #### [facility] [address] [place] [address] Dr. Lavonne Tinoco Crystals LM Nom (Urine sed) NONE SEEN Normal NONE SEEN [facility] Comment on above: Performed By: #### U AMIC #### [facility] [address] [place] [address] Dr. Lavonne Tinoco Epithelial cells LM Ql (Urine sed) FEW Abnormal NONE SEEN /RARE The [facility] Comment on above: Performed By: #### U AMIC #### [facility] [address] [place] [address] Dr. Lavonne Tinoco Glucose Ql (U) Negative Normal NEGATIVE The [facility] Comment on above: Performed By: #### U AMIC #### [facility] [address] [place] [address] Dr. Lavonne Tinoco Hemoglobin Ql (U) Negative Normal NEGATIVE The [facility] Comment on above: Performed By: #### U AMIC #### [facility] [address] [place] [address] Dr. Lavonne Tinoco Ketones Ql (U) Negative Normal NEGATIVE The [facility] Comment on above: Performed By: #### U AMIC #### [facility] [address] [place] [address] Dr. Lavonne Tinoco LEUKOCYTES TRACE Abnormal NEGATIVE The [facility] Comment on above: Performed By: #### U AMIC #### [facility] [address] [place] [address] Dr. Lavonne Tinoco MUCOUS NONE SEEN Normal NONE SEEN [facility] Comment on above: Performed By: #### U AMIC #### [facility] [address] [address] [address] Lavonne Tinoco Nitrite Ql (U) Negative Normal NEGATIVE The [facility] Comment on above: Performed By: #### U AMIC #### [facility] [address] [address] [address] Lavonne Tinoco pH (U) 6.0 [pH] Normal 5-9 The [facility] Comment on above: Performed By: #### U AMIC #### [facility] [address] [address] [address] Lavonne Tinoco RBC NONE SEEN Abnormal 0-2 [facility] Comment on above: Performed By: #### U AMIC #### [facility] [address] [place] [address] Dr. Lavonne Tinoco SPEC GRAVITY 1.020 Normal 1.005-<=1.025 [facility] Comment on above: Performed By: #### U AMIC #### [facility] [address] [place] [address] Dr. Lavonne Tinoco UA PROTEIN TRACE Normal NEGATIVE/ TRACE The [facility] Comment on above: Performed By: #### U AMIC #### [facility] [address] [place] [address] Dr. Lavonne Tinoco Urobilinogen Qn (U) 2.0 {Erick'U}/dL Abnormal 0.2 - 1. 0 The [facility] Comment on above: Performed By: #### U AMIC #### [facility] [address] [place] [address] Dr. Lavonne Tinoco WBC 0-2 Abnormal NONE SEEN The [facility] Comment on above: Performed By: #### U AMIC #### [facility] [address] [place] [address] Dr. Lavonne Tinoco NM STRESS/REST MULTIon 04-04 NM STRESS/REST MULTI Patient: ABRAM GUILLAUME Exam Date: 04/04/2022 : 1965 Gender:M Ordering : ROSI SEXTON CNP Admission #: [id number] Family : Order #: [id number] CLICK HERE TO VIEW EXAM RADIOLOGY REPORT [...] Gan MD on 04/04/2022 at 13:16 Normal [facility] ECHOCARDIO M/2D COMPLETEon 0 02-27-2022 ECHOCARDIO M/2D COMPLETE Patient: ABRAM GUILLAUME Exam Date: 02/27/2022 : 1965 Gender:M Ordering : ROSI PEPPER SEXTON [facility] Admission #: [id number] Family : Order #: [id number] CLICK HERE TO VIEW EXAM ECHOCARDIOGRAM REPORT [...] Area(A4C): 21.60 cm2 Left Atrium Systolic Volume(A2C): 35147 mm3 Left Atrium Systolic Volume(A4C): 49482 mm3 Mitral Valve MV E to A [...] Peck M.D. on 02/28/2022 at 11:52 Normal [facility] ANKLE LEFT 3 Son 2 ANKLE LEFT 3 [facility] Department of Radiology [address] [place] [address] Patient Name: ABRAM GUILLAUME : [...] Weight Bearing?: Y Exam: ANKLE LEFT [address] [facility] ANKLE LEFT 3 [facility] 01/11/2022 9:13 AM CLINICAL INDICATIONS: [id number] [...] above Electronically signed: Violeta Jay. Transcribed by: [email or web address], User Resident: Electronically Signed by: VIOLETA JAY @ 01/12/2022 03:24 PM Normal [facility] Comment on above: Order Comment: Views (X-RAY, ANKLE): AP, Lateral, Mortise , Weight Bearing?: Y GLYCOHEMOGLOBIN A1Con 2021 ADA RECOMMENDATION ADA THERAPEUTIC TARGET 6.0 - 7.0 ACTION SUGGESTED > 7.0 Normal [facility] Comment on above: Performed By: #### A 1C #### [facility] [address] [place] [address] Dr. Lavonne Tinoco Glucose [Mass/Vol] 100 mg/dL Normal [facility] Comment on above: Performed By: #### A 1C #### [facility] [address] [address] [address] Lavonne Tinoco HbA1c (Bld) [Mass fraction] 5.1 % Normal <=6.0 [facility] Comment on above: Performed By: #### A 1C #### [facility] [address] [address] [address] Lavonne Tinoco MAGNESIUMon 12-25-2021 Magnesium [Mass/Vol] 1.7 mg/dL Normal 1.6-2.3 [facility] Comment on above: Performed By: #### M G, BMP #### [facility] [address] [address] [address] Lavonne Tinoco PROF CHEM 8 (BAS METB)on Anion gap [Moles/Vol] 12.3 mmol/L Normal [facility] Comment on above: Performed By: #### M G, BMP #### [facility] [address] [place] [address] Dr. Lavonne Tinoco Calcium [Mass/Vol] 8.7 mg/dL Normal 8.5-10.1 [facility] Comment on above: Performed By: #### M G, BMP #### [facility] [address] [place] [address] Dr. Lavonne Tinoco Chloride [Moles/Vol] 107 mmol/L Normal 98-107 [facility] Comment on above: Performed By: #### M G, BMP #### [facility] [address] [place] [address] Dr. Lavonne Tinoco CO2 [Moles/Vol] 27.4 mmol/L Normal 22.0-30.0 [facility] Comment on above: Performed By: #### M G, BMP #### [facility] [address] [place] [address] Dr. Lavonne Tinoco Creatinine [Mass/Vol] 1.50 mg/dL Critically high 0.66-1.25 [facility] Comment on above: Performed By: #### M G, BMP #### [facility] [address] [place] [address] Dr. Lavonne Tinoco EGFR-AF POLISH 59 mL/min/1.73m2 Critically low >=60 [facility] Comment on above: Performed By: #### M G, BMP #### [facility] [address] [place] [address] Dr. Lavonne Tinoco EGFR-NON AF POLISH 49 mL/min/1.73m2 Critically low >=60 [facility] Comment on above: Performed By: #### M G, BMP #### [facility] [address] [place] [address] Dr. Lavonne Tinoco Glucose [Mass/Vol] 103 mg/dL Normal 74-106 [facility] Comment on above: Performed By: #### M G, BMP #### [facility] [address] [place] [address] Dr. Lavonne Tinoco Potassium [Moles/Vol] 3.7 mmol/L Normal 3.4-5.0 [facility] Comment on above: Performed By: #### M G, BMP #### [facility] [address] [address] [address] Lavonne Tinoco Sodium [Moles/Vol] 143 mmol/L Normal 137-145 [facility] Comment on above: Performed By: #### M G, BMP #### [facility] [address] [address] [address] Lavonne Tinoco Urea nitrogen [Mass/Vol] 17.0 mg/dL Normal 7.0-18.0 [facility] Comment on above: Performed By: #### M G, BMP #### [facility] [address] [address] [address] Lavonne Tinoco Urea nitrogen/Creatinine [Mass ratio] 11.3 mg/mg Normal [facility] Comment on above: Performed By: #### M G, BMP #### [facility] [address] [address] [address] 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MUSIC REHABILITATION THERAPIST Work Phone: [facility] 01-06-2025 09:06-0400 Body mass index (BMI) [Ratio] 40.46 kg/m2 Pepper Sexton MUSIC REHABILITATION THERAPIST Work Phone: [facility] 01-06-2025 09:06-0400 Body temperature 97.81 [degF] Pepper Sexton MUSIC REHABILITATION THERAPIST Work Phone: [facility] 01-06-2025 09:06-0400 Body weight 124.29 kg Pepper Sexton MUSIC REHABILITATION THERAPIST Work Phone: [facility] 01-06-2025 09:06-0400 Diastolic blood pressure 82 mm[Hg] Pepper Sexton MUSIC REHABILITATION THERAPIST Work Phone: [facility] 01-06-2025 09:06-0400 Heart rate 91 /min Pepper Aichholz MUSIC REHABILITATION THERAPIST Work Phone: [facility] 01-06-2025 09:06-0400 Respiratory rate 18 /min Pepper Aichholz MUSIC REHABILITATION THERAPIST Work Phone: [facility] 01-06-2025 09:06-0400 SaO2% (BldA) [Mass fraction] 93 % Pepper Aichholz MUSIC REHABILITATION THERAPIST Work Phone: [facility] 01-06-2025 09:06-0400 Systolic blood pressure 140 mm[Hg] Pepper Aichholz MUSIC REHABILITATION THERAPIST Work Phone: [facility] 12-02-2024 13:45-0400 Body height 175.26 cm Pepper Aichholz Work Phone: [facility] 12-02-2024 13:45-0400 Body mass index (BMI) [Ratio] 41 kg/m2 Pepper Aichholz Work Phone: [facility] 12-02-2024 13:45-0400 Body weight 126.09 kg Pepper Aichholz Work Phone: [facility] 12-02-2024 13:45-0400 Diastolic blood pressure 73 mm[Hg] Pepper Aichholz Work Phone: [facility] 12-02-2024 13:45-0400 Heart rate 89 /min Pepper Aichholz Work Phone: [facility] 12-02-2024 13:45-0400 Respiratory rate 18 /min Pepper Aichholz Work Phone: [facility] 12-02-2024 13:45-0400 SaO2% (BldA) [Mass fraction] 95 % Pepper Aichholz Work Phone: [facility] 12-02-2024 13:45-0400 Systolic blood pressure 122 mm[Hg] Pepper Aichholz Work Phone: [facility] 10-07-2024 09:05-0500 Body height 175.3 cm Pepper Aichholz MUSIC REHABILITATION THERAPIST Work Phone: [facility] 10-07-2024 09:05-0500 Body mass index (BMI) [Ratio] 41.47 kg/m2 Pepper Rojelioholz MUSIC REHABILITATION THERAPIST Work Phone: [facility] 10-07-2024 09:05-0500 Body temperature 97.81 [degF] Pepper Javierhholz MUSIC REHABILITATION THERAPIST Work Phone: [facility] 10-07-2024 09:05-0500 Body weight 127.37 kg Pepper Javierhholz MUSIC REHABILITATION THERAPIST Work Phone: [facility] 10-07-2024 09:05-0500 Diastolic blood pressure 84 mm[Hg] Pepper Aichholz MUSIC REHABILITATION THERAPIST Work Phone: [facility] 10-07-2024 09:05-0500 Heart rate 92 /min Pepper Aichholz MUSIC REHABILITATION THERAPIST Work Phone: [facility] 10-07-2024 09:05-0500 Respiratory rate 22 /min Pepper Aichholz MUSIC REHABILITATION THERAPIST Work Phone: [facility] 10-07-2024 09:05-0500 SaO2% (BldA) [Mass fraction] 96 % Pepper Javierhholz MUSIC REHABILITATION THERAPIST Work Phone: [facility] 10-07-2024 09:05-0500 Systolic blood pressure 138 mm[Hg] Pepper Aichholz MUSIC REHABILITATION THERAPIST Work Phone: [facility] 10-06-2024 09:05-0500 Diastolic blood pressure 86 mm[Hg] Pepper Aichholz Work Phone: [facility] 10-06-2024 09:05-0500 Heart rate 88 /min Pepper Aichholz Work Phone: [facility] 10-06-2024 09:05-0500 Respiratory rate 18 /min Pepper Aichholz Work Phone: [facility] 10-06-2024 09:05-0500 SaO2% (BldA) [Mass fraction] 96 % Pepper Aichholz Work Phone: [facility] 10-06-2024 09:05-0500 Systolic blood pressure 136 mm[Hg] Pepper Aichholz Work Phone: [facility] 10-06-2024 07:31-0500 Body height 177.8 cm Pepper Aichholz Work Phone: [facility] 10-06-2024 07:31-0500 Body weight 115.66 kg Pepper Aichholz Work Phone: [facility] 07-09-2024 13:55-0400 Diastolic blood pressure 74 mm[Hg] Pepper Aichholz Work Phone: [facility] 07-09-2024 13:55-0400 Heart rate 74 /min Pepper Aichholz Work Phone: [facility] 07-09-2024 13:55-0400 Respiratory rate 18 /min Pepper Aichholz Work Phone: [facility] 07-09-2024 13:55-0400 SaO2% (BldA) [Mass fraction] 100 % Pepper Aichholz Work Phone: [facility] 07-09-2024 13:55-0400 Systolic blood pressure 111 mm[Hg] Pepper Aichholz Work Phone: [facility] 07-09-2024 11:51-0400 Body height 175.26 cm Pepper Aichholz Work Phone: [facility] 07-09-2024 11:51-0400 Body temperature 98.6 [degF] Pepper Aichholz Work Phone: [facility] 07-09-2024 11:51-0400 Body weight 117.9 kg Pepper Aichholz Work Phone: [facility] 07-06-2024 09:44-0400 Body height 175.3 cm Pepperjovanny Serratoayleenz MUSIC REHABILITATION THERAPIST Work Phone: [facility] 07-06-2024 09:44-0400 Body mass index (BMI) [Ratio] 37.18 kg/m2 Pepper Aichholz MUSIC REHABILITATION THERAPIST Work Phone: [facility] 07-06-2024 09:44-0400 Body temperature 98.1 [degF] Pepper Javiernitoz MUSIC REHABILITATION THERAPIST Work Phone: [facility] 07-06-2024 09:44-0400 Body weight 114.22 kg Pepper Aichholz MUSIC REHABILITATION THERAPIST Work Phone: [facility] 07-06-2024 09:44-0400 Diastolic blood pressure 82 mm[Hg] Pepper Aichholz MUSIC REHABILITATION THERAPIST Work Phone: [facility] 07-06-2024 09:44-0400 Heart rate 79 /min Pepper Javierhholz MUSIC REHABILITATION THERAPIST Work Phone: [facility] 07-06-2024 09:44-0400 Respiratory rate 19 /min Pepper Aichholz MUSIC REHABILITATION THERAPIST Work Phone: [facility] 07-06-2024 09:44-0400 SaO2% (BldA) [Mass fraction] 93 % Pepper Javierhholz MUSIC REHABILITATION THERAPIST Work Phone: [facility] 07-06-2024 09:44-0400 Systolic blood pressure 126 mm[Hg] Pepper Javierhholz MUSIC REHABILITATION THERAPIST Work Phone: [facility] 06-24-2024 08:39-0400 Body height 175.[address] [facility] 06-24-2024 08:39-0400 Body mass index (BMI) [Ratio] 42.3 kg/m2 [facility] 06-24-2024 08:39-0400 Body weight [address] [facility] 06-23-2024 08:50-0400 Body height 175.[address] [facility] 06-23-2024 08:50-0400 Body mass index (BMI) [Ratio] 42.3 kg/m2 [facility] 06-23-2024 08:50-0400 Body temperature 98.2 [degF] [facility] 06-23-2024 08:50-0400 Body weight 129.[address] [facility] 06-23-2024 08:50-0400 Diastolic blood pressure 77 mm[Hg] [facility] 06-23-2024 08:50-0400 Heart rate 91 /min [facility] 06-23-2024 08:50-0400 Respiratory rate 18 /min [facility] 06-23-2024 08:50-0400 SaO2% (BldA) [Mass fraction] 93 % [facility] 06-23-2024 08:50-0400 Systolic blood pressure 115 mm[Hg] [facility] 04-27-2024 08:35-0400 Body height 175.3 cm [facility] 2 [facility] 04-27-2024 08:35-0400 Body mass index (BMI) [Ratio] 38.4 kg/m2 [facility] 2 [facility] 04-27-2024 08:35-0400 Body weight 117.94 kg [facility] 2 [facility] 03-19-2024 09:37-0400 Body height 175.[address] [facility] 03-19-2024 09:37-0400 Body mass index (BMI) [Ratio] 39.4 kg/m2 [facility] 03-19-2024 09:37-0400 Body temperature 97.8 [degF] [facility] 03-19-2024 09:37-0400 Body weight 121.[address] [facility] 03-19-2024 09:37-0400 Diastolic blood pressure 98 mm[Hg] [facility] 03-19-2024 09:37-0400 Heart rate 94 /min [facility] 03-19-2024 09:37-0400 Respiratory rate 20 /min [facility] 03-19-2024 09:37-0400 SaO2% (BldA) [Mass fraction] 95 % [facility] 03-19-2024 09:37-0400 Systolic blood pressure 158 mm[Hg] [facility] Encounters Encounter Date Encounter Type Care Provider Facility Start: 01-06-2025 End: 01-06-2025 Bamboo flowsheet Pepper Sexton MUSIC REHABILITATION THERAPIST Work Phone: [facility] Start: 01-06-2025 End: 01-06-2025 Bamboo flowsheet Pepper Sexton MUSIC REHABILITATION THERAPIST Work Phone: [facility] Start: 01-06-2025 End: 01-06-2025 Office outpatient visit 25 minutes Pepper Sexton MUSIC REHABILITATION THERAPIST Work Phone: [facility] Comment on above: Essential hypertensi [...] End: 12-02-2024 ambulatory Pepper Sexton Work Phone: [facility] Work Phone: Start: 12-02-2024 End: 12-02-2024 Patient encounter procedure Pepper Sexton Work Phone: [facility] [place] Work Phone: Start: 11-26-2024 End: 11-26-2024 Clinisync [...] Non-patient / Non-visit Pepper heinjemal Work Phone: [facility] Work Phone: Start: 11-05-2024 End: 11-05-2024 Clinisync Result Encounter Pepper Carlie MUSIC REHABILITATION THERAPIST Work Phone: [facility] External Department Unsolicited Start: 11-05-2024 End: 11-05-2024 Clinisync Result Encounter Pepper Carlie MUSIC REHABILITATION THERAPIST Work Phone: [facility] Unsolicited Start: 11-04-2024 End: 11-04-2024 Refill Pepper Serratojemal MUSIC REHABILITATION THERAPIST Work Phone: [facility] Comment on above: Hypomagnesemia; Restless legs syndrome Start: 10-08-2024 End: 10-08-2024 Refill Pepper Serratojemal MUSIC REHABILITATION THERAPIST Work Phone: [facility] Comment on above: Hypothyroidism, unsp ecified type (CMS/HCC) (Primary Dx); Hypomagnesemia Start: 10-07-2024 End: 10-07-2024 Bamboo flowsheet Pepper Serratojemal MUSIC REHABILITATION THERAPIST Work Phone: [facility] Start: 10-07-2024 End: 10-07-2024 Bamboo flowsheet Pepper Serratojemal MUSIC REHABILITATION THERAPIST Work Phone: [facility] Start: 10-07-2024 End: 10-07-2024 Clinisync Result Encounter Pepper Carlie MUSIC REHABILITATION THERAPIST Work Phone: [facility] External Department Unsolicited Start: 10-07-2024 End: 10-07-2024 Office outpatient visit 25 minutes Pepper Carlie MUSIC REHABILITATION THERAPIST Work Phone: [facility] Comment on above: Essential hypertensi on, benign (CMS/HCC) (Primary Dx); Morbid (severe) obesity due to excess calories (CMS/HCC); Gastro-esophageal reflux disease without esophagitis; Body mass index (BMI) 37.0-37.9, adult; GURVINDER (obstructive sleep apnea); COPD mixed type ([facility]/HCC); Pulmonary hypertension ([facility]/HCC); Hypothyroidism, unspecified type ([facility]); Obesity (BMI 30-39.9); Mixed hyperlipidemia ([facility]); Hypomagnesemia; Marijuana use; Pre-diabetes; Chronic bronchitis, unspecified chronic bronchitis type ([facility]) Start: 10-07-2024 End: 10-07-2024 ambulatory PEPPER SEXTON Not Available Start: 10-06-2024 Non-patient / Non-visit Pepper lorenz Work Phone: [facility] Work Phone: Start: 10-06-2024 End: 10-06-2024 Admission to same day surgery center Pepper Sexton Work Phone: [facility] Work Phone: Start: 10-06-2024 End: 10-06-2024 ambulatory Pepper Sexton Work Phone: [facility] Work Phone: Start: 09-28-2024 End: 09-28-2024 Clinisync Result Encounter Pepper Sexton MUSIC REHABILITATION THERAPIST Work Phone: [facility] Unsolicited Start: 09-28-2024 End: 09-28-2024 Clinisync Result Encounter Pepper Carlie MUSIC REHABILITATION THERAPIST Work Phone: [facility] External Department Unsolicited Start: 09-28-2024 End: 09-28-2024 Refill Pepper Sexton MUSIC REHABILITATION THERAPIST Work Phone: [facility] Comment on above: Hypomagnesemia (Prim ирина Dx) Start: 09-14-2024 End: 09-14-2024 Refill Pepperjovanny Sexton MUSIC REHABILITATION THERAPIST Work Phone: [facility] Comment on above: Hypomagnesemia Start: 09-14-2024 End: 09-15-2024 Refill Pepper Carlie MUSIC REHABILITATION THERAPIST Work Phone: [facility] Comment on above: Fibromyalgia Start: 09-04-2024 End: 09-04-2024 Orders Only Pepper Carlie MUSIC REHABILITATION THERAPIST Work Phone: [facility] Comment on above: Hypomagnesemia (Prim ирина Dx) Start: 09-04-2024 End: 09-04-2024 Refill Pepper Carlie MUSIC REHABILITATION THERAPIST Work Phone: [facility] Comment on above: Hypomagnesemia Start: 07-09-2024 Non-patient / Non-visit Pepper lorenz Work Phone: [facility] Work Phone: Start: 07-09-2024 End: 07-09-2024 Admission to same day surgery center Pepper Sexton Work Phone: [facility] Work Phone: Start: 07-09-2024 End: 07-09-2024 ambulatory Pepper Sexton Work Phone: [facility] Work Phone: Start: 07-06-2024 End: 07-06-2024 Bamboo flowsheet Pepper Carlie MUSIC REHABILITATION THERAPIST Work Phone: [facility] Start: 07-06-2024 End: 07-06-2024 Bamboo flowsheet Pepper Carlie MUSIC REHABILITATION THERAPIST Work Phone: [facility] Start: 07-06-2024 End: 07-06-2024 Office outpatient visit 25 minutes Pepper Sexton MUSIC REHABILITATION THERAPIST Work Phone: [facility] Comment on [...] Start: 06-29-2024 End: 06-29-2024 Refill Pepper Sexton MUSIC REHABILITATION THERAPIST Work Phone: [facility] Comment on above: Restless legs syndro me Start: 06-24-2024 End: 06-24-2024 ambulatory [facility] Work Phone: Start: 06-24-2024 End: 06-24-2024 Patient encounter procedure [facility] Work Phone: Start: 06-23-2024 End: 06-23-2024 Clinisync Result Encounter Generic External Data Provider [facility] External Department Unsolicited Start: 06-23-2024 End: 06-23-2024 Clinisync Result Encounter Generic External Data Provider [facility] External Department Unsolicited Start: 06-23-2024 End: 06-23-2024 ambulatory [facility] Work Phone: Start: 06-23-2024 End: 06-23-2024 Patient encounter procedure [facility] Physician [facility] [place] Work Phone: Start: 06-18-2024 End: 06-18-2024 Refill Jose Bell MD Work Phone: [facility] [address] [facility] Comment on above: Degenerative disc di sease, cervical (Primary Dx) Start: 06-09-2024 End: 06-09-2024 Refill Pepper Sexton MUSIC REHABILITATION THERAPIST Work Phone: [facility] Comment on above: Hypomagnesemia questions Start: 06-03-2024 End: 06-03-2024 Bamboo flowsheet Blank Langston Winnieshakira MUSIC REHABILITATION THERAPIST Work Phone: [facility] Start: 06-03-2024 End: 06-03-2024 Bamboo flowsheet Blank Langston Aplshakira MUSIC REHABILITATION THERAPIST Work Phone: [facility] Start: 06-03-2024 End: 06-03-2024 ambulatory BLANK MCFARLANE Not Available Start: 06-03-2024 End: 06-03-2024 Postop follow up visit related to original px Blank Langston Denys MUSIC REHABILITATION THERAPIST Work Phone: [facility] Comment on above: 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) Start: 05-27-2024 End: 05-27-2024 Evaluation and management of inpatient KENNEDI [facility] Start: 05-27-2024 End: 05-27-2024 Evaluation and management of inpatient [facility] Start: 05-26-2024 End: 05-26-2024 Refill Tiburcio Noel MUSIC REHABILITATION THERAPIST Work Phone: [facility] Comment on above: Post-operative pain (Primary Dx) Start: 05-04-2024 End: 01-06-2025 Preoperative state Tiburcio Noel MUSIC REHABILITATION THERAPIST Work Phone: [facility] Start: 05-04-2024 End: 05-04-2024 ambulatory PEPPER SXETON Not Available Start: 04-30-2024 End: 04-30-2024 ambulatory [facility] Not Available Start: 04-27-2024 End: 04-27-2024 ambulatory [facility] Start: 04-27-2024 Encounter for other preprocedural examination PEPPER JAVIERHayderJEMAL [facility] Start: 04-27-2024 End: 04-27-2024 Patient encounter procedure [facility] Pre-Admission Testing 2 [facility] - Pre Admit Comment on above: Preop examination (P rimary Dx); Hypertension, unspecified type Start: 04-27-2024 End: 04-27-2024 Preprocedural examination done Pm 2 [facility] Start: 04-09-2024 End: 04-09-2024 ambulatory PEPPER AICHayderHOLZ Not Available Start: 03-19-2024 End: 03-19-2024 ambulatory [facility] Work Phone: Start: 03-19-2024 End: 03-19-2024 Patient encounter procedure [facility] Work Phone: Start: 03-11-2024 End: 03-11-2024 ambulatory PEPPER AICHHOLZ Not Available Start: 03-05-2024 End: 03-05-2024 ambulatory RUPERT BO Not Available Start: 02-26-2024 End: 02-26-2024 ambulatory BLANK MCFARLANE Not Available Start: 02-26-2024 End: 02-26-2024 ambulatory PEPPER AICHayderHOLZ Not Available Start: 02-04-2024 End: 02-04-2024 ambulatory KARUNA CARRANZA Not Available Start: 07-19-2022 End: 07-20-2022 ambulatory AQUACULTURIST PEPPER AICHHOLZ Facility:[facility] Start: 04-04-2022 End: 04-05-2022 ambulatory AQUACULTURIST PEPPER AICHHOLZ Facility:[facility] Start: 02-27-2022 End: 02-28-2022 ambulatory AQUACULTURIST PEPPER AICHHOLZ Facility:[facility] Start: 01-16-2022 End: 01-17-2022 ambulatory AQUACULTURIST PEPPER AICHHOLZ Facility:[facility] Start: 12-25-2021 End: 12-26-2021 ambulatory AQUACULTURIST PEPPER AICHHOLZ Facility:[facility] Procedures Date Procedure Procedure Detail Performing Clinician Start: 11-26-2024 ALL CBC WITH AUTO DIFF Generic External Data Provider Start: 11-24-2024 ALL MAGNESIUM Generic External Data Provider Start: 11-05-2024 ALL MAGNESIUM Pepper Aichholz MUSIC REHABILITATION THERAPIST Work Phone: Start: 10-07-2024 ALL MAGNESIUM Pepper Aichholz MUSIC REHABILITATION THERAPIST Work Phone: Start: 10-07-2024 ALL THYROID STIM HORMONE Pepper Aichholz N P Work Phone: Start: 10-07-2024 Hemoglobin glycosylated a1c Pepper Aichhol z MUSIC REHABILITATION THERAPIST Work Phone: Start: 10-06-2024 Esophagogastroduodenoscopy Pepper Aichholz Work Phone: Start: 09-28-2024 ALL BASIC METABOLIC PANEL Pepper Rojelioholz MUSIC REHABILITATION THERAPIST Work Phone: Start: 09-28-2024 ALL MAGNESIUM Pepper Aichholz MUSIC REHABILITATION THERAPIST Work Phone: Start: 07-09-2024 Esophagogastroduodenoscopy Pepper Aichholz Work Phone: Start: 06-23-2024 ALL MAGNESIUM Generic External Data Provider Start: 06-23-2024 ALL RENAL FUNCTION PANEL Generic Externa l Data Provider Start: 06-23-2024 ALL URIC ACID Generic External Data Provider Start: 07-19-2022 PSA screening AQUACULTURIST PEPPER CARLIE Comment on above: Performed By: #### CMP, TSH, LIPID #### [facility] [address] [place] [address] Dr. Lavonne Tinoco Plan of Treatment Date Care Activity Detail Author Start: 08-11-2025 Screening for malign ant neoplasm of colon [facility] Start: 04-27-2025 Adult BMI Screening Adult BMI Screen ing [facility] Start: 04-27-2025 Tobacco Screening Tobacco Screening [facility] Start: 04-07-2025 End: 04-07-2025 Patient encounter procedure 04/07/2025 9:00 AM EDT Office Visit [facility] [address] [place] [id number] Pepper Sexton MUSIC REHABILITATION THERAPIST [address] [place] [address] [facility] Start: 01-06-2025 End: 01-06-2026 CBC W Auto Differential panel - Blood CBC and differential Lab Routine Gastro-esophageal reflux disease without esophagitis Expected: 01/06/2025 (Approximate), Expires: 01/06/2026 [facility] Comment on above: Expected: 01/06/2025 (Approximate), Expires: 01/06/2026 Start: 01-06-2025 End: 01-06-2026 Comprehensive metabolic 2000 panel - Serum or Plasma Comprehensive metabolic panel Lab Routine Chronic kidney disease, stage 3a (HCC) (CMS/HCC) Essential hypertension, benign (CMS/HCC) Gastro-esophageal reflux disease without esophagitis Mixed hyperlipidemia (CMS/HCC) Expected: 01/06/2025 (Approximate), Expires: 01/06/2026 [facility] Comment on above: Expected: 01/06/2025 (Approximate), Expires: 01/06/2026 Start: 01-06-2025 End: 01-06-2026 Lipid 1996 panel - Serum or Plasma Lipid panel Lab Routine Mixed hyperlipidemia (CMS/HCC) Expected: 01/06/2025 (Approximate), Expires: 01/06/2026 [facility] Work Phone: Comment on above: Expected: 01/06/2025 (Approximate), Expires: 01/06/2026 Start: 01-06-2025 End: 01-06-2026 Microalbumin/Creatinine panel in random Urine Microalbumin / creatinine, urine ratio Lab Routine Essential hypertension, benign (CMS/HCC) Expected: 01/06/2025 (Approximate), Expires: 01/06/2026 [facility] Comment on above: Expected: 01/06/2025 (Approximate), Expires: 01/06/2026 Start: 01-06-2025 End: 01-06-2026 Prostate specific Ag [Mass/volume] in Serum or Plasma PSA Lab Routine Screening for prostate cancer Expected: 01/06/2025 (Approximate), Expires: 01/06/2026 [facility] Comment on above: Expected: 01/06/2025 (Approximate), Expires: 01/06/2026 Start: 01-06-2025 End: 01-06-2026 Thyrotropin [Units/volume] in Serum or Plasma TSH Lab Routine Hypothyroidism, unspecified type (CMS/HCC) Expected: 01/06/2025 (Approximate), Expires: 01/06/2026 [facility] Comment on above: Expected: 01/06/2025 (Approximate), Expires: 01/06/2026 Start: 01-06-2025 End: 01-06-2026 Thyroxine (T4) free [Mass/volume] in Serum or Plasma T4, free Lab Routine Hypothyroidism, unspecified type (CMS/HCC) Expected: 01/06/2025 (Approximate), Expires: 01/06/2026 [facility] Comment on above: Expected: 01/06/2025 (Approximate), Expires: 01/06/2026 Start: 01-06-2025 End: 01-06-2026 Urinalysis complete panel - Urine Urinalysis with reflex microscopic (clean catch) Lab Routine Essential hypertension, benign (CMS/HCC) Expected: 01/06/2025 (Approximate), Expires: 01/06/2026 [facility] Comment on above: Expected: 01/06/2025 (Approximate), Expires: [...] type (CMS/HCC) Expected: 12/06/2024 (Approximate), Expires: 10/08/2025 [facility] Work Phone: Comment on above: Expected: 12/06/2024 (Approximate), Expires: 10/08/2025 Start: 12-06-2024 End: 10-08-2025 Thyroxine (T4) free [Mass/volume] in Serum or Plasma T4, free Lab Routine Hypothyroidism, unspecified type (CMS/HCC) Expected: 12/06/2024 (Approximate), Expires: 10/08/2025 [facility] Comment on above: Expected: 12/06/2024 (Approximate), Expires: 10/08/2025 Start: 10-22-2024 End: 10-08-2025 Magnesium [Mass/volume] in Serum or Plasma Magnesium Lab Routine Hypomagnesemia Expected: 10/22/2024 (Approximate), Expires: 10/08/2025 [facility] Comment on above: Expected: 10/22/2024 (Approximate), Expires: 10/08/2025 Start: 10-07-2024 End: 10-07-2025 Magnesium [Mass/volume] in Serum or Plasma Magnesium Lab Routine Hypomagnesemia Expected: 10/07/2024 (Approximate), Expires: 10/07/2025 [facility] Comment on above: Expected: 10/07/2024 (Approximate), Expires: 10/07/2025 Start: 10-07-2024 End: 10-07-2025 Thyrotropin [Units/volume] in Serum or Plasma TSH Lab Routine Hypothyroidism, unspecified type (CMS/HCC) Expected: 10/07/2024 (Approximate), Expires: 10/07/2025 [facility] Work Phone: Comment on above: Expected: 10/07/2024 (Approximate), Expires: 10/07/2025 Start: 10-07-2024 End: 10-07-2025 Thyroxine (T4) free [Mass/volume] in Serum or Plasma T4, free Lab Routine Hypothyroidism, unspecified type (CMS/HCC) Expected: 10/07/2024 (Approximate), Expires: 10/07/2025 [facility] Comment on above: Expected: 10/07/2024 (Approximate), Expires: 10/07/2025 Start: 10-07-2024 End: 10-07-2024 Patient encounter procedure [facility] Comment on above: GURVINDER (obstructive sle ep apnea) (Primary Dx); Morbid (severe) obesity due to excess calories (CMS/HCC); Gastro-esophageal reflux disease without esophagitis; Body mass index (BMI) 37.0-37.9, adult; COPD mixed type ([facility]/HCC); Essential hypertension, benign ([facility]/HCC); Pulmonary hypertension (CMS/HCC); Hypothyroidism, unspecified type ([facility]/HCC); Obesity (BMI 30-39.9); Mixed hyperlipidemia ([facility]/HCC); Hypomagnesemia; Marijuana use; Pre-diabetes Start: 10-06-[address] [facility] Start: 09-04-2024 End: 09-04-2025 Basic metabolic 1998 panel - Serum or Plasma Basic metabolic panel Lab Routine Hypomagnesemia Expected: 09/04/2024 (Approximate), Expires: 09/04/2025 [facility] Comment on above: Expected: 09/04/2024 (Approximate), Expires: 09/04/2025 Start: 09-04-2024 End: 09-04-2025 Magnesium [Mass/volume] in Serum or Plasma Magnesium Lab Routine Hypomagnesemia Expected: 09/04/2024 (Approximate), Expires: 09/04/2025 [facility] Work Phone: Comment on above: Expected: 09/04/2024 (Approximate), Expires: 09/04/2025 Start: 07-09-[address] [facility] Start: 07-06-2024 End: 07-06-2024 Patient encounter procedure [facility] Comment on above: Arrived Start: 06-30-2024 End: 06-30-2024 Patient encounter procedure [facility] Comment on above: Arrived Start: 06-09-2024 End: 06-09-2025 Basic metabolic 1998 panel - Serum or Plasma Basic metabolic panel Lab Routine Hypomagnesemia Expected: 06/09/2024 (Approximate), Expires: 06/09/2025 [facility] Work Phone: Comment on above: Expected: 06/09/2024 (Approximate), Expires: 06/09/2025 Start: 06-09-2024 End: 06-09-2025 Magnesium [Mass/volume] in Serum or Plasma Magnesium Lab Routine Hypomagnesemia Expected: 06/09/2024 (Approximate), Expires: 06/09/2025 [facility] Comment on above: Expected: 06/09/2024 (Approximate), Expires: 06/09/2025 Start: 06-03-2024 End: 06-03-2024 Patient encounter procedure 06/03/2024 8:45 AM EDT Office Visit [facility] [address] [place] [address] Blank Mcfarlane, REMBERTO [address] [place] [address] [facility] Start: 05-27-2024 End: 05-27-2024 Patient encounter procedure 05/27/2024 10:40 AM EDT Office Visit [facility] [address] [place] [address] Karuna Carranza PA [address] [place], [place] [id number] [facility] Start: 05-27-2024 End: 05-27-2024 Admission to same day surgery center 05/27/2024 7:30 AM EDT - 05/27/2024 8:30 AM EDT Surgery [facility] - Surgery [address] [facility] [place] [place] [address] Rupert Bo DO [address] [place] [address] DECOMPRESSION NERVE ULNAR [50993 (CPT )] [facility] Comment on above: DECOMPRESSION NERVE ULNAR [68978 (CPT )] Start: 05-27-2024 End: 05-27-2024 Neuroplasty &/transposition ulnar nerve elbow DECOMPRESSION NERVE ULNAR right ulnar neuropathy 05/27/2024 7:30 AM EDT [facility] Start: 05-27-2024 End: 05-27-2024 Patient encounter procedure 05/27/2024 7:30 AM EDT Procedure Visit [facility] Rupert Bo, [address] [place] [address] [facility] Start: 05-27-2024 Subsequent hospital visit by physician 05/27/2024 7:30 AM EDT Hospital Encounter [facility] Surgery [address] [place] [id number] Rupert Bo, DO [address] [place] [address] [facility] Start: 05-24-2024 Influenza vaccination Influenza Vacc ine [facility] Start: 2017 Administration of varicella zoster vaccine Zoster (Shingles) Vaccine (1 of 2) [facility] Start: 1986 DTaP,Tdap and Td Vaccines (1 - Tdap) DTaP,Tdap and Td Vaccines (1 - Tdap) [facility] Start: 1985 Adult BMI Follow Up Plan Adult BMI Follow Up Plan [facility] Start: 1979 Depression Screening Depression Scre ening [facility] Start: 1967 Screening for malign ant neoplasm of colon [facility] Patient Education [facility] Work Phone: Renal function 1999 panel - Serum or Plasma [facility] Renal function 1999 panel - Serum or Plasma [facility] Renal function 1999 panel - Serum or Plasma [facility] Payers Date Payer Category Payer Self-pay 2019 [facility] Mem er [id number] 2019 Unknown [id number] .[id number] 1967 Unknown [id number] 2.16.840.1.591716.3.579.2 .593 1967 Unknown [id number] 2.16.840.1.681196.3.579.2 .593 1967 Unknown [id number] 2.16.840.1.785900.3.579.2 .593 1967 Unknown [id number] 2.16.840.1.088004.3.579.2 .593 1967 Unknown [id number] 2.16.840.1.085511.3.579.2 .593 1967 Unknown [id number] 2.16.840.1.153067.3.579.2 .1286 1967 Unknown [id number] 2.16.840.1.494057.3.579.2 .1286 1967 Unknown [id number] 2.16.840.1.782545.3.579.2 .1286 1967 Unknown [id number] 2.16.840.1.222497.3.579.2 .1286 1967 Unknown [id number] 2.16.840.1.492081.3.579.2 .1286 1967 Unknown [id number] 2.16.840.1.143900.3.579.2 .1286 1967 Unknown [id number] 2.16.840.1.781574.3.579.2 .1259 1967 Unknown [id number] 2.16.840.1.337664.3.579.2 .1259 1967 Unknown [id number] 2.16.840.1.468965.3.579.2 .1259 1968 Unknown [id number] 2.16.840.1.886450.3.579.2 .1258 1967 Unknown [id number] 2.16.840.1.771336.3.579.2 .1258 1967 Unknown [id number] 2.16.840.1.853998.3.579.2 .1258 1967 Unknown [id number] 2.16.840.1.929969.3.579.2 .1258 1967 Unknown [id number] 2.840.1.617052.3.579.2 .1258 1967 Unknown [id number] 2.840.1.583934.3.579.2 .1258 1967 Unknown [id number] 2.840.1.407899.3.579.2 .1258 1967 Unknown [id number] 2.840.1.029391.3.579.2 .1258 1967 Unknown [id number] 2.840.1.070861.3.579.2 .1258 1967 Unknown [id number] 2.16840.1.249834.3.579.2 .9 1959 Unknown [id number] 1959 Unknown [id number] Unknown [facility] [employer] [id number] Unknown [facility] [id number] Unknown [id number] 2.840.1.050695.3.579.2 .531 Unknown [id number] 2.840.1.887493.3.579.2 .531 Social History Date Type Detail Facility Start: 03-19-2024 Tobacco smoking status HIIS Current some day smoker [facility] Start: 1965 Sex Assigned At Male [facility] Start: 04-30-2024 End: 06-23-2024 Tobacco smoking status NHIS Ex-smoker (finding) [facility] History of tobacco use Current smoker [...] smoking status NHIS Never smoked tobacco (finding) [facility] Start: 10-06-2024 End: 12-02-2024 Sex Male (finding) [facility] History of tobacco use Cigarette Smoker P [employer] [facility] Start: 04-27-2024 Alcohol Comment social/recreational [facility] Goals Date Patient Goal Desired Activity /State Clinical Notes 04-27-2024 to 01-06-2025 Pepper Sexton, REMEBRTO - 01/06/2025 9:00 AM Dash Sexton, MUSIC REHABILITATION THERAPIST - 01/06/2025 6:15 AM Dash Sexton, MUSIC REHABILITATION THERAPIST - 01/06/2025 6:14 AM Dash Sexton, REMBERTO [...] compliance problems. There is no history of CAD/GA, heart failure or PVD. GERD He reports [...] amlodipine, bystolic, valsartan documented in this encounter [facility] 01-06-2025 Instructions Pepper Sexton NP - 01/06/2025 9:00 AM EDT Fasting labs due after 03/02/25 documented in this encounter [facility] 10-07-2024 History of Presen t illness Narrative [...] kidney disease. There is no history of CAD/GA. Identifiable causes of hypertension include a thyroid [...] and bystolic Associated Problem(s): Essential hypertension, benign ([facility]) Please check blood pressure daily and record DASH diet Limit caffeine Take medication as directed Contact office if chest pain, pressure, dizziness, shortness of breath, swelling legs Recommend slow position changes Current meds: amlodipine, bystolic, valsartan Associated Problem(s): COPD mixed type ([facility]) Current meds: albuterol prn and symbicort Sporadic [...] in daily function:NA documented in this encounter [facility] 10-07-2024 Instructions Pepper Sexton NP - 10/07/2024 9:00 AM EST [employer] 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 documented in this encounter [facility] 10-06-2024 History and physical note Note Date/Time October 06, 2024 8:32am [facility] [address] [place] [address] Gastroenterology H&P Signed Patient: Abram Guillaume MR#: [id number] 4 : 1965 Acct:[id number] Age/Sex: 58 / M Adm Date: 5 Loc: Room: Type: [facility] Attending Dr: James Elaine MD [...] signed by James Elaine MD> 10/06/24 0832 [facility] Work Phone: 1(638) 336-348101-14-2025 [place] [id number] EGD Procedure Note Signed Patient: Abram Guillaume MR#: [id number] 4 : 1965 Acct:[id number] Age/Sex: 58 / M Adm Date: 5 Loc: Room: Type: [facility] Attending Dr: James Elaine MD Copies to: MD Pepper Werner NP-C~ Esophagogastroduodenoscopy Date/Provider Date: 10/06/2024 James Elaine MD Procedure Findings: Procedure: EGD with biopsy Indication: 58-year-old man with history of esophagitis here for EGD to assess for Diana's Pre-operative diagnosis: History of esophagitis Post-operative diagnosis: [place]-colored mucosa in the esophagus otherwise normal EGD [...] MD 10/06/24 0832 Signed By: 10/06/[address] [facility]01-14-2025 [place] [address] Gastroenterology H&P Signed Patient: Abram Guillaume MR#: [id number] 4 : 1965 Acct:[id number] Age/Sex: 58 / M Adm Date: 5 Loc: Room: Type: [facility] Attending Dr: James Elaine MD [...] MD 10/06/24 0831 Signed By: 10/06/[address] [facility]01-06-2025 History of Present illness Narrative * [...] suggestions regarding this matter. documented in this encounter[id number] [facility] History of Present illness Narrative* Pepper [...] scope with GI, has been off his PPI/U6teycnayq for up coming EGD etc Continue with [...] scope with GI, has been off his PPI/W6fazhvqat for up coming EGD etc Continue with GI Essential hypertension, benign (CMS/HCC) - Primary At goal no med dose chagnes Hypothyroidism (CMS/HCC) No med dose changes Hypomagnesemia Continue with TID magnesium and fu with Nephrology Relevant Medications magnesium oxide (Mag-Ox) 400 MG tablet Obesity (BMI 30-39.9) Needs flu shot declines documented in this encounterCox [id number] History of Present illness Narrative* Rupert Bo, [...] Dr. Bo/lloyd Bo D.O. documented in this encounterCox [id number] Telephone encounter Note* Telephone Encounter - DEBI Cho - 06/09/2024 12:22 PM EDT Spoke with patient and he will RTW tomorrow with light duty [facility] Work Phone: 1(160) 343-606409-17-2024 Miscellaneous Notes* Telephone Encounter - DEBI Cho [...] questions, if you could call him at [phone] documented in this encounterCox [id number] Telephone encounter Note* Telephone Encounter - DEBI Cho - 06/09/2024 12:16 PM EDT Spoke with patient and answered questions, he would like to RTW tomorrow with restrictions, spoke with Dr Bo and he said that was fine [id number] Telephone encounter Note* Telephone Encounter - Sarah Marshall - 06/09/2024 12:13 PM EDT Pt called and left vm stated he has PO questions, if you could call him at [phone] [id number] History of Present illness Narrative* Blank Mcfarlane [...] weeks, continue off work documented in this [facility]09-03-2024 Telephone encounter Note* Telephone Encounter - Tiburcio Noel NP - 05/26/2024 12:16 PM EDT Post op pain rx. PDMP reviewed [id number] Miscellaneous Notes* Telephone Encounter - Tiburcio Noel NP - 05/26/2024 12:16 PM EDT Post op pain rx. PDMP reviewed documented in this [facility]08-05-2024 Instructions* Patient Instructions* Ora Delvalle RN - 04/27/2024 8:15 AM EDT Preoperative Education Checklist- General Surgery date: 05/27/24 Surgery time: 0730 a.m. Arrival time: 0610 a.m. 1. Bring a photo ID and your insurance card with you the day of surgery. You will check in at the main lobby of the [facility]- registration desk is straight ahead as soon as you walk in. Tell them you are here for surgery. 2. If you have a Living Will/Durable Power of Stock Clipper for Health Care that is not on [...] after you have bathed. 5. NO nail salvadorean/acrylic on at least one finger. If you are having a hand, wrist or foot surgery then all nail salvadorean and artificial/acrylic nails must be removed from [...] please call the Preadmission Testing office at [phone], Mon.-Fri. 7 a.m.-3 p.m. Leave a voicemail [...] appointment with your doctor. [facility] Miscellaneous Notes* Perioperative Nursing Note - Ora Delvalle RN - 04/27/2024 8:15 AM EDT Preoperative Education Checklist- General Surgery date: 05/27/24 Surgery time: 0730 a.m. Arrival time: 0610 a.m. 1. Bring a photo ID and your insurance card with you the day of surgery. You will check in at the main lobby of the [facility]- registration desk is straight ahead as soon as you walk in. Tell them you are here for surgery. 2. If you have a Living Will/Durable Power of Stock Clipper for Health Care that is not on [...] after you have bathed. 5. NO nail salvadorean/acrylic on at least one finger. If you are having a hand, wrist or foot surgery then all nail salvadorean and artificial/acrylic nails must be removed from [...] please call the Preadmission Testing office at [phone], Mon.-Fri. 7 a.m.-3 p.m. Leave a voicemail [...] reviewed. Patient verbalized understanding. [facility] Nurse Note* Perioperative Nursing Note - Ora Delvalle RN - 04/27/2024 8:15 AM EDT Preoperative Education Checklist- General Surgery date: 05/27/24 Surgery time: 0730 a.m. Arrival time: 0610 a.m. 1. Bring a photo ID and your insurance card with you the day of surgery. You will check in at the main lobby of the [facility]- registration desk is straight ahead as soon as you walk in. Tell them you are here for surgery. 2. If you have a Living Will/Durable Power of Stock Clipper for Health Care that is not on [...] after you have bathed. 5. NO nail salvadorean/acrylic on at least one finger. If you are having a hand, wrist or foot surgery then all nail salvadorean and artificial/acrylic nails must be removed from [...] please call the Preadmission Testing office at [phone], Mon.-Fri. 7 a.m.-3 p.m. Leave a voicemail [...] to the follow-up appointment with your doctor. [facility]08-05-2024 Nurse Note* Perioperative Nursing Note - Ora Delvalle RN - 04/27/2024 8:15 AM EDT Hibiclens and surgical instructions reviewed. Patient verbalized understanding. [facility]* Diagnosis Onset Date Resolution Status GERD (gastroesophageal reflux disease) acute Hypomagnesemia acute Primary hypertension [facility] Work Phone: Evaluation note* Diagnosis Onset Date Resolution Status GERD (gastroesophageal reflux disease) acute Hypomagnesemia acute Primary hypertension acute Dyspepsia acute GERD (gastroesophageal reflux disease) acute [facility] Work Phone: Evaluation note* Diagnosis Restless legs syndrome Restless legs syndrome (RLS) documented in this encounter [facility] HealthcareEvaluation note* Diagnosis Cubital tunnel syndrome on right- Primary documented in this encounter [facility] Healthcare[facility]* Diagnosis Essential hypertension, benign [...] of magnesium metabolism documented in this encounter [facility] HealthcareEvaluation noteNo assessment information availableSelect [facility] Work Phone: Evaluation note* Diagnosis Essential [...] bronchitis type (CMS/HCC) documented in this encounter [facility] HealthcareEvaluation note* Diagnosis Essential hypertension, benign (CMS/HCC)- Primary Essential hypertension, benign Screening for prostate cancer Special screening for malignant neoplasm of prostate Hypomagnesemia Disorders of magnesium metabolism Mixed hyperlipidemia (CMS/HCC) Mixed hyperlipidemia Hyperglycemia Other abnormal glucose Hypothyroidism, unspecified type ([facility]/HCC) Restless legs Restless legs syndrome (RLS) Fibromyalgia Unspecified myalgia and myositis Pulmonary hypertension ([facility]/HCC) Other chronic pulmonary heart diseases Restless legs syndrome Restless legs syndrome (RLS) Gastroesophageal reflux disease, unspecified whether esophagitis present Atopic dermatitis, unspecified type Gastroesophageal reflux disease, unspecified whether esophagitis present- Primary Essential hypertension, benign ([facility]) Essential hypertension, benign Hypothyroidism, unspecified type ([facility]) Mixed hyperlipidemia ([facility]) Mixed hyperlipidemia Hypomagnesemia Disorders of magnesium metabolism Obesity (BMI 30-39.9) Hypomagnesemia- Primary Disorders of magnesium metabolism Fibromyalgia Unspecified myalgia and myositis Atopic dermatitis, unspecified type Gastroesophageal reflux disease, unspecified whether esophagitis present Obesity (BMI 30-39.9) Essential hypertension, benign ([facility]) Essential hypertension, benign Essential (primary) hypertension ([facility])- Primary Unspecified essential hypertension Morbid (severe) obesity due to excess calories ([facility]) Body mass index (BMI) 38.0-38.9, adult Obesity (BMI 30-39.9) Cigarette nicotine dependence without complication Gastroesophageal reflux disease, unspecified whether esophagitis present Hypomagnesemia Disorders of magnesium metabolism Pre-operative clearance- Primary Unspecified pre-operative examination Hypomagnesemia Disorders of magnesium metabolism Restless legs syndrome Restless legs syndrome (RLS) COPD with acute exacerbation ([facility]) Chronic bronchitis, unspecified chronic bronchitis type ([facility]) Essential hypertension, benign ([facility]) Essential hypertension, benign Gastroesophageal reflux disease, unspecified whether esophagitis present GURVINDER (obstructive sleep apnea) Obstructive sleep apnea (adult) (pediatric) Pulmonary hypertension ([facility]) Other chronic pulmonary heart diseases LV dysfunction Left heart failure Essential hypertension, benign ([facility]/HCC)- Primary Essential hypertension, benign Hypomagnesemia Disorders of magnesium metabolism Gastroesophageal reflux disease, unspecified whether esophagitis present Obesity (BMI 30-39.9) Hypothyroidism, unspecified type ([facility]) Needs flu shot Need for prophylactic vaccination and inoculation against influenza Hypomagnesemia- Primary Disorders of magnesium metabolism Essential hypertension, benign ([facility])- Primary Essential hypertension, benign Morbid (severe) obesity due to excess calories ([facility]) Gastro-esophageal reflux disease without esophagitis Body mass [...] of magnesium metabolism documented in this encounter [facility] HealthcareEvaluation note* Diagnosis Essential hypertension, benign [...] legs syndrome (RLS) documented in this encounter [facility] HealthcareEvaluation note* Diagnosis Preop examination- Primary Unspecified pre-operative examination Hypertension, unspecified type [facility]* Diagnosis Onset Date Resolution Status Admit Date GERD (gastroesophageal reflu x disease) acute December 02, 2024 1:43pm Hypomagnesemia acute November 1:43pm Primary hypertension acute [facility] 2024 1:43pm [facility] Work Phone: Evaluation note* Diagnosis Essential hypertension, [...] legs syndrome (RLS) COPD with acute exacerbation (CMS/[facility]) Chronic bronchitis, unspecified chronic bronchitis type [...] Disorders of magnesium metabolism Essential hypertension, benign ([facility]/HCC)- Primary Essential hypertension, benign Morbid (severe) obesity due to excess calories ([facility]/HCC) Gastro-esophageal reflux disease without esophagitis Body [...] HealthcareHistory and physical note Author James Elaine [facility] July 09, 2024 1:12pm Note Date/Time July 09, 2024 1 :12pm [facility] [address] [place] [address] Gastroenterology H&P Signed Patient: Abram Guillaume MR#: [id number] 4 : 1965 Acct:[id number] Age/Sex: 58 / M Adm Date: 4 Loc: Room: Type: [facility] Attending Dr: James Elaine MD [...] signed by James Elaine MD> 07/09/24 1312 [facility] Work Phone: Hospital Discharge instructions [...] -Continue omeprazole 40 mg daily -Office number [phone]. [facility] Work Phone: Summary Purpose Family [...] ECG 12 lead Rupert Bo DO [address] [place] [address] Referral ID Status Reason Start Date Expiration Date V isits Requested Visits Authorized [id number] Pending Review 04/23/2024 04/23/2025 1 1 Additional Source Comments (unrecognized sect ion and content) No Status Records FoundNo Status Records FoundNo Status Records FoundNo Status Records FoundNo Status Records Found INFORMATION SOURCE (unrecogn ized section and content) DATE CREATED AUTHOR 05/18/2022 [facility] DATE CREATED AUTHOR AUTHOR'S ORGANIZ ATION 07/22/2022 [facility] DATE CREATED AUTHOR AUTHOR'S ORGANIZ ATION 05/28/2024 [facility] DATE CREATED AUTHOR AUTHOR'S ORGANIZ ATION 10/16/2024 [facility] DATE CREATED AUTHOR AUTHOR'S ORGANIZ ATION 01/08/2025 [facility] dical Specialists EPIC Care Teams (unrecognized [...] June 23, 2024 End: June 23, 2024 [employer] Bak[employer] Relationship Specialty Start Date End Date Anatsacio Hinojosa MD [address] [place] [address] PCP - General Family Medicine 11/26/23 Pepper Sexton NP [address] [place] [phone] PCP - [employer] 04/23/24 Pepper Sexton NP [address] [place] [phone] Nurse Practitioner Family Medicine 11/26/23 Team Status: Inactive Member Role Status Dates Pepper Sexton Primary Care Provider Active Sta rt: June 24, 2024 End: June 24, 2024 Dav Swanson APRN Attending Provider Active Start: June 24, 2024 End: June 24, 2024 Deli Bakery Clerk Relationship Specialty Start Date End Date Anastacio Hinojosa MD [address] [place] [phone] PCP - General Family Medicine 11/26/23 Pepper Sexton NP [address] [place] [phone] PCP - [employer] 04/23/24 Pepper Sexton NP [address] [place] [phone] Nurse Practitioner Family Medicine 11/26/23 Deli Bakery Clerk Relationship Specialty Start Date End Date Anastacio Hinojosa MD [address] [place] [phone] PCP - General Family Medicine 11/26/23 Pepper Sexton NP [address] [place] [phone] PCP - [employer] 04/23/24 Pepper Sexton NP [address] [place] [address] Nurse Practitioner Family Medicine 11/26/23 Deli Bakery Clerk Relationship Specialty Start Date End Date Anastacio Hinojosa MD [address] [place] [phone] PCP - General Family Medicine 11/26/23 Pepper Sexton NP [address] [place] [phone] PCP - [employer] 04/23/24 Pepper Sexton NP [address] [place] [phone] Nurse Practitioner Family Medicine 11/26/23 Deli Bakery Clerk Relationship Specialty Start Date End Date Anastacio Hinojosa MD [address] [place] [phone] PCP - General Family Medicine 11/26/23 Pepper Sexton NP [address] [place] [address] PCP - [employer] 04/23/24 Pepper Sexton NP [address] [place] [address] Nurse Practitioner Family Medicine 11/26/23 Deli Bakery Clerk Relationship Specialty Start Date End Date Anastacio Hinojosa MD [address] [place] [phone] PCP - General Family Medicine 11/26/23 Pepper Sexton NP [address] [place] [phone] PCP - [employer] 04/23/24 Pepper Sexton NP [address] [place] [phone] Nurse Practitioner Family Medicine 11/26/23 Team Status: [...] Other Provider Active Start: July 09, 2024 Deli Bakery Clerk Relationship Specialty Start Date End Date Anastacio Hinojosa MD [address] [place] [phone] PCP - General Family Medicine 11/26/23 Pepper Sexton NP [address] [place] [phone] PCP - [employer] 04/23/24 Pepper Sexton NP [address] [place] [phone] Nurse Practitioner Family Medicine 11/26/23 Deli Bakery Clerk Relationship Specialty Start Date End Date Anastacio Hinojosa MD [address] [place] [phone] PCP - General Family Medicine 11/26/23 Pepper Setxon NP [address] [place] [address] PCP - [employer] 04/23/24 Pepper Sexton NP [address] [place] [address] Nurse Practitioner Family Medicine 11/26/23 Deli Bakery Clerk Relationship Specialty Start Date End Date Anastacio Hinojosa MD [address] [place] [phone] PCP - General Family Medicine 11/26/23 Pepper Sexton NP [address] [place] [phone] PCP - [employer] 04/23/24 Pepper Sexton NP [address] [place] [address] Nurse Practitioner Family Medicine 11/26/23 Deli Bakery Clerk Relationship Specialty Start Date End Date Anastacio Hinojosa MD [address] [place] [phone] PCP - General Family Medicine 11/26/23 Pepper Sexton NP [address] [place] [address] Nurse Practitioner Family Medicine 11/26/23 Deli Bakery Clerk Relationship Specialty Start Date End Date Anastacio Hinoojsa MD [address] [place] [phone] PCP - General Family Medicine 11/26/23 Pepper Sexton NP [address] [place] [phone] PCP - [employer] 04/23/24 Pepper Sexton NP [address] [place] [address] Nurse Practitioner Family Medicine 11/26/23 Deli Bakery Clerk Relationship Specialty Start Date End Date Anastacio Hinojosa MD [address] [place] [phone] PCP - General Family Medicine 11/26/23 Pepper Sexton NP [address] [place] [phone] PCP - [employer] 04/23/24 Pepper Sexton NP [address] [place] [phone] Nurse Practitioner Family Medicine 11/26/23 Team Status: [...] Other Provider Active Start: October 06, 2024 Deli Bakery Clerk Relationship Specialty Start Date End Date Anastacio Hinojosa MD [address] [place] [phone] PCP - General Family Medicine 11/26/23 Pepper Sexton NP [address] [place] [phone] PCP - [employer] [employer] 04/23/24 Pepper Sexton NP [address] [place] [phone] Nurse Practitioner Family Medicine 11/26/23 Deli Bakery Clerk Relationship Specialty Start Date End Date Anastacio Hinojosa MD [address] [place] [phone] PCP - General Family Medicine 11/26/23 Pepper Sexton NP [address] [place] [phone] PCP - [facility] [employer] 04/23/24 Pepper Sexton NP [address] [place] [phone] Nurse Practitioner Family Medicine 11/26/23 Deli Bak[employer] Clerk Relationship Specialty Start Date End Date Anastacio Hinojosa MD [address] [place] [phone] PCP - General Family Medicine 11/26/23 Pepper Sexton NP [address] [place] [phone] PCP - [facility] [employer] 04/23/24 Pepper Sexton NP [address] [place] [phone] Nurse Practitioner Family Medicine 11/26/23 [employer]i Bak[employer] Clerk Relationship Specialty Start Date End Date Anastacio Hinojosa MD [address] [place] [phone] PCP - General Family Medicine 11/26/23 Pepper Sexton NP [address] [place] [phone] PCP - [facility] [employer] 04/23/24 Pepper Sexton NP [address] [place] [phone] Nurse Practitioner Family Medicine 11/26/23 [employer]i [employer] Clerk Relationship Specialty Start Date End Date Anastacio Hinojosa MD [address] [place] [phone] PCP - General Family Medicine 11/26/23 Pepper Sexton NP [address] [place] [phone] PCP - [facility] [employer] 04/23/24 Pepper Sexton NP [address] [place] [phone] Nurse Practitioner Family Medicine 11/26/23 [employer] Clerk Relationship Specialty Start Date End Date Anastacio Hinojosa MD [address] [place] [phone] PCP - General Family Medicine 11/26/23 Pepper Sexton NP [address] [place] [phone] PCP - [facility] 04/23/24 Pepper Sexton NP [address] [place] [phone] Nurse Practitioner Family Medicine 11/26/23 [employer] Clerk Relationship Specialty Start Date End Date Pepper Sexton APRN-AQUACULTURIST [address] [place] [phone] PCP - General Nurse Practitioner 05/10/22 Team [...] December 02, 2024 End: December 02, 2024 Deli Bakery Clerk Relationship Specialty Start Date End Date Anastacio Hinojosa MD [address] [place] [phone] PCP - General Family Medicine 11/26/23 Pepper Sexton NP [address] [place] [phone] PCP - [employer] 04/23/24 Pepper Sexton NP [address] [place] [phone] Nurse Practitioner Family Medicine 11/26/23 [employer] Clerk Relationship Specialty Start Date End Date Anastacio Hinojosa MD [address] [place] [phone] PCP - General Family Medicine 11/26/23 Pepper Sexton NP [address] [place] [phone] PCP - [facility] 04/23/24 Pepper Sexton NP [address] [place] [phone] Nurse Practitioner Family Medicine 11/26/23 Goals [...] BE BASED ON THE PRIMARY CLINICAL RECORDS. [employer] provides no warranty or guarantee of the accuracy or completeness of information in this document.
--- NOTE | 2025-02-07 15:49 | PM.HP ---
HPI H&P: HPI History of Present Illness Chief complaint: dehydration lt leg rash, MARITZA, CELLULITIS Narrative: 59 y o male presented to ED with 3 day hx of left LE pain/swelling and redness. He has chronic skin discoloration anteriorly on left LE from prior surgery/trauma. He noticed increased pain and swelling around chronic skin lesion that rapidly progressed over past few days and is now extending from ankle joint to just below knee joint. He denies fever/chills but reports feeling unwell, weak and tired overall. He reports chronic intermittent diarrhea and hypomagnesemia and reports watery stools of large quantity for 3-4 days. Denies abdominal pain, nausea, vomiting or blood in stool. Work up in ED was c/w Sepsis sec to RLE cellulitis resulting in MARITZA. He was also noted to have severe hypomagnesemia and hypokalemia. Patient was given IV magnesium, PO potassium and IV Clindamycin in ED. At the time of my evaluation, he felt ok with no sig improvement in his symptoms and was noted to have low BP. Opioid HPI Opioid Management Most Recent Pain and Opioid Data: Last Pain Scale 4 Today, 15:27 Last Pain Assessment Today, 14:00 Last ED Pain Assessment Today, 11:56 Last ORT Total Score 0 Today, 14:00 Last ORT Risk Category Low Risk Today, 14:00 Review of Systems ROS Status of ROS 10 or more systems reviewed and unremarkable except as noted in history and below [facility] Medical History (Updated 02/07/25 @ 15:59 by Shaikh Ana Cristina MD) HTN (hypertension) ?I10 - Essential (primary) hypertension (ICD-10) Social History (Updated 02/07/25 @ 14:36 by Winsome Pulido RN) Within the past year, how often did you have a drink containing alcohol: 2-3 times a week Within the past year, how many standard drinks containing alcohol did you have on a typical day: 10 or more Within the past year, how often did you have six or more drinks on one occasion: monthly Total score: 10 Score interpretation: A score of 4 or more indicates drinking is likely to affect patient's safety. Smoking status: Current every day smoker Second hand tobacco smoke exposure: Yes (smokes marijuana, not tobbacco) Non-prescribed substance use: cannabis (any form) Known occupational exposures/hazards: No Highest level of school completed/degree received: high school graduate Do you want help with school or training: No Are you now , , , , never or living with a partner: In a typical week, how many times do you talk on the telephone with family, friends, or neighbors: 3 or more times per week How often do you get together with friends or relatives: once per week How often do you attend yazidi or scientology services: never Little interest or pleasure in doing things: not at all Feeling down, depressed, or hopeless: not at all Feel stressed/tense/nervous/anxious/difficulty sleeping: not at all Meds Home Medications and Allergies Home Medications ?Medication ?Instructions ?Recorded ?Confirmed ?Type amlodipine 10 mg tablet 10 mg PO DAILY 02/07/25 02/07/25 History budesonide-formoterol HFA 160 2 puff inhalation Q12H 02/07/25 02/07/25 History mcg-4.5 mcg/actuation aerosol inhaler doxepin 10 mg/mL oral concentrate 10 mg PO BEDTIME 02/07/25 02/07/25 History gabapentin 600 mg tablet 600 mg PO BID 02/07/25 02/07/25 History levothyroxine 112 mcg tablet 112 mcg PO DAILY 02/07/25 02/07/25 History magnesium glycinate 100 mg (as 100 mg PO TID 02/07/25 02/07/25 History glycinate) tablet montelukast 10 mg tablet 10 mg PO BEDTIME 02/07/25 02/07/25 History nebivolol 10 mg tablet 10 mg PO DAILY 02/07/25 02/07/25 History omeprazole 40 mg capsule,delayed 40 mg PO DAILY 02/07/25 02/07/25 History release valsartan 320 mg tablet 320 mg PO DAILY 02/07/25 02/07/25 History Allergies Allergy/AdvReac Type Severity Reaction Status Date / Time No Known Drug Allergies Allergy Verified 02/27/24 09:26 Exam Constitutional Vital Signs, click to edit/add: Last Vital Signs Temp 97.9 F 02/07/25 14:00 Pulse 86 02/07/25 15:42 Resp 18 02/07/25 14:00 BP 91/61 02/07/25 14:00 Pulse Ox 91 L 02/07/25 14:00 O2 Del Method Room Air 02/07/25 14:00 Documenting provider has reviewed patient's vital signs: yes Common normals: no apparent distress and oriented x3 General appearance: cooperative HENMT Common normals: normocephalic and head/scalp atraumatic Head and scalp: normocephalic and atraumatic Eye Common normals: conjunctivae normal and no scleral icterus Conjunctiva: conjunctiva(e) normal Respiratory Common normals: normal respiratory effort and clear to auscultation bilaterally Effort & inspection: able to speak in complete sentences Auscultation: clear to auscultation bilaterally Cardio Common normals: regular rate, S1 normal heart sound and S2 normal heart sound Rate: regular rate Heart sounds: S1 normal and S2 normal GI Common normals: Normal to inspection, nondistended, normoactive bowel sounds present, soft to palpation, non-tender and no hepatosplenomegaly Palpation: soft and no hepatosplenomegaly Extremity Other: LLE erythema, tenderness, swelling noted. Extending from just above ankle to just below knee joint. LLE Anteriorly, patient has chronic scaly lesion that is assymetrical and unchanged according to the patient. Neuro Common normals: oriented x3, moves all extremities and no focal motor deficits Psych Common normals: mental status grossly normal, denies hallucinations, denies homicidal ideation and denies suicidal ideation Results Labs Labs: Short CBC 02/07/25 Range/Units 12:02 WBC 15.4 H (4.0-11.0) 10^3/uL Hgb 13.6 L (14.0-18.0) g/dL Hct 41.1 L (42.0-54.0) % Plt Count 341 (150-450) 10^3/uL BMP 02/07/25 12:02 Sodium 140 Potassium 2.7 L* Chloride 101 Carbon Dioxide 23.2 BUN 38.0 H Creatinine 3.29 H Glucose 134 H Calcium 7.7 L Liver Function 02/07/25 Range/Units 12:02 Total Bilirubin 0.9 (0.2-1.0) mg/dL AST 26 (15-37) U/L ALT 35 (16-63) U/L Alkaline Phosphatase 120 H (46-116) U/L Albumin 2.8 L (3.4-5.0) g/dL Assessment and Plan Assessment and Plan (1) Sepsis: Assessment and Plan: Meets Sepsis Criteria - Leukocytosis, tachycardia, SBP less than 100. Sec to Cellulitis, associated with MARITZA. Will give one L Bolus. Start on maintenance IVF afterwards. F/u blood cx. Qualifiers: Sepsis type: sepsis due to unspecified organism Sepsis acute organ dysfunction status: with acute organ dysfunction Severe sepsis acute organ dysfunction type: acute renal failure Acute renal failure type: unspecified Severe sepsis shock status: without septic shock Qualified Code(s): A41.9 - Sepsis, unspecified organism; R65.20 - Severe sepsis without septic shock; N17.9 - Acute kidney failure, unspecified (2) Cellulitis: Assessment and Plan: LLE cellulitis resulting in Sepsis/MARITZA. F/u blood cx. Started on IV Clindamycin. Qualifiers: Laterality: left Site of cellulitis: extremity Site of cellulitis of extremity: lower extremity Qualified Code(s): L03.116 - Cellulitis of left lower limb (3) MARITZA (acute kidney injury): Assessment and Plan: Normal renal fx at baseline. Cr on presentation 3.29 Monitor UO, serum creatinine closely. On IVF (4) Acute hypokalemia: Assessment and Plan: Ordered PO/IV potassium. Recheck at 8 pm (5) Hypomagnesemia: Assessment and Plan: Ordered PO/IV magnesium. Recheck at 8 pm (6) HTN (hypertension): Assessment and Plan: Hold antihypertensives due to low BP. Resume once BP stable/sepsis resolves. Qualifiers: Hypertension type: primary hypertension Qualified Code(s): I10 - Essential (primary) hypertension (7) D-dimer, elevated: Assessment and Plan: Likely due to MARITZA. Will get US to r/o DVT. low suspicion of DVT. Plan Patient admitted as in patient for sepsis sec to Cellulitis resulting in MARITZA. Also has severe hypokalemia, hypomagnesemia requiring close tele monitoring, IV replacement. Anticipate needing 2-3 inpatient hospital days considering the severity of his presenting illness.
[2025-02-07] MEDS: ALBUTEROL SULFATE 2.5 MG/3 ML VIAL NEB IH (16:40)
[2025-02-07] MEDS: 0.9 % SODIUM CHLORIDE 1,000 ML 125 ML IV (17:17)
[2025-02-07] MEDS: POTASSIUM CHLORIDE 10 MEQ/100 ML WATER PREMIX 100 MEQ IV ×4 (17:17→21:49)
[2025-02-07] MEDS: POTASSIUM CHLORIDE 10 MEQ ER TABLET 40 MEQ PO (17:17)
[2025-02-07] MEDS: ACETAMINOPHEN 325 MG TABLET 650 MG PO (17:18)
[2025-02-07] MEDS: OXYCODONE HCL 5 MG TABLET PO (17:18)
--- NOTE | 2025-02-07 19:26 | PC.NURSE ---
left lower leg, reddened with dry scaly skin observed.
[2025-02-07] MEDS: MONTELUKAST SODIUM 10 MG TABLET PO (21:04)
[2025-02-07] MEDS: MAGNESIUM OXIDE 400 MG TABLET PO (21:04)
[2025-02-07] MEDS: GABAPENTIN 300 MG CAPSULE 600 MG PO (21:05)
[2025-02-07] MEDS: DOXEPIN HCL 10 MG CAPSULE PO (21:05)
[2025-02-08] VITALS (20 sets, daily range): BP systolic 94–124; BP diastolic 64–77; PULSE 85–99; TEMP 36.5–36.9; O2SAT 90–95
[2025-02-08 00:42] LABS: Anion Gap 15.2; BUN Creatinine Ratio 9.4; Calcium 7.2 mg/dL (8.5-10.1); Carbon Dioxide 24.5 mmol/L (21.0-32.0); Chloride 103 mmol/L (98-107); Estimated GFR (African America 16 (>=60 mL/min/1.73m^2); Estimated GFR (Non-African Ame 13 (>=60 mL/min/1.73m^2); Glucose 95 mg/dL (74-106); Magnesium 1.2 mg/dL (1.8-2.4); Potassium 3.7 mmol/L (3.5-5.1); Sodium 139 mmol/L (136-145)
[2025-02-08] MEDS: 0.9 % SODIUM CHLORIDE 1,000 ML 125 ML IV ×3 (04:20→23:29)
[2025-02-08] MEDS: CLINDAMYCIN PHOSPHATE/D5W 600 MG/50 ML PREMIX 100 MG IV (05:26)
[2025-02-08] MEDS: LEVOTHYROXINE SODIUM 112 MCG TABLET PO (05:29)
[2025-02-08 05:35] LABS: Basophils Absolute Auto 0.1 10^3/uL (0.0-0.1); Basophils Percent Auto 0.5 % (0.2-2.0); Eosinophils Absolute Auto 0.3 10^3/uL (0.0-0.7); Eosinophils Percent Auto 2.5 % (0.9-7.0); Hematocrit 33.8 % (42.0-54.0); Hemoglobin 11.3 g/dL (14.0-18.0); Immature Granulocytes Abs Auto 0.11 10^3/uL (0.00-0.03); Immature Granulocytes Pct Auto 0.9 % (0.0-0.5); Lymphocytes Absolute Auto 1.7 10^3/uL (1.2-3.8); Lymphocytes Percent Auto 13.7 % (20.5-60.0); Mean Corpuscular HGB Conc 33.4 g/dL (29.9-35.2); Mean Corpuscular Hemoglobin 32.3 pg (25.9-34.0); Mean Corpuscular Volume 96.6 fL (80.0-94.0); Mean Platelet Volume 10.5 fL (9.5-13.5); Monocytes Absolute Auto 1.1 10^3/uL (0.3-0.8); Monocytes Percent Auto 8.9 % (1.7-12.0); Neutrophils Absolute Auto 8.9 10^3/uL (1.4-6.5); Neutrophils Percent Auto 73.5 % (43.0-75.0); Platelet Count 276 10^3/uL (150-450); Red Cell Distribution Width 14.4 % (11.0-15.0); White Blood Count 12.2 10^3/uL (4.0-11.0)
[2025-02-08 05:52] LABS: Alanine Aminotransferase 39 U/L (16-63); Albumin Globulin Ratio 0.5; Albumin Level 2.3 g/dL (3.4-5.0); Alkaline Phosphatase 116 U/L (46-116); Anion Gap 15.3; Aspartate Amino Transferase 32 U/L (15-37); BUN Creatinine Ratio 11.3; Bilirubin Total 0.8 mg/dL (0.2-1.0); Calcium 7.1 mg/dL (8.5-10.1); Carbon Dioxide 22.9 mmol/L (21.0-32.0); Chloride 104 mmol/L (98-107); Estimated GFR (African America 19 (>=60 mL/min/1.73m^2); Estimated GFR (Non-African Ame 16 (>=60 mL/min/1.73m^2); Globulin 4.4 g/dL; Glucose 105 mg/dL (74-106); Potassium 3.2 mmol/L (3.5-5.1); Sodium 139 mmol/L (136-145); Total Protein 6.7 g/dL (6.4-8.2)
--- NOTE | 2025-02-08 06:14 | P.PN_ITS ---
Progress Note: Subjective Subjective Interval history: Still pain and aching in left leg Exam Constitutional Vital Signs, click to edit/add: Last Vital Signs Temp 97.7 F 02/08/25 05:39 Pulse 89 02/08/25 06:00 Resp 92 H 02/08/25 05:39 BP 100/64 02/08/25 05:39 Pulse Ox 92 L 02/08/25 05:39 O2 Del Method Room Air 02/08/25 05:39 Documenting provider has reviewed patient's vital signs: yes Common normals: no apparent distress Chest Common normals: inspection of chest normal Respiratory Common normals: normal respiratory effort and no retractions Cardio Common normals: regular rate and regular rhythm GI Common normals: Normal to inspection, nondistended, normoactive bowel sounds present and soft to palpation Extremity Common normals: abnormal to inspection (Chronic skin change as well as acute cellulitis type changes left lower ext) Progress Note: Objective Labs Labs: Short CBC 02/07/25 02/08/25 Range/Units 12:02 05:24 WBC 15.4 H 12.2 H (4.0-11.0) 10^3/uL Hgb 13.6 L 11.3 L (14.0-18.0) g/dL Hct 41.1 L 33.8 L (42.0-54.0) % Plt Count 341 276 (150-450) 10^3/uL BMP 02/07/25 02/08/25 02/08/25 12:02 00:25 05:24 Sodium 140 139 139 Potassium 2.7 L* 3.7 3.2 L Chloride 101 103 104 Carbon Dioxide 23.2 24.5 22.9 BUN 38.0 H 44.0 H 45.0 H Creatinine 3.29 H 4.67 H 3.98 H Glucose 134 H 95 105 Calcium 7.7 L 7.2 L 7.1 L Liver Function 02/07/25 02/08/25 Range/Units 12:02 05:24 Total Bilirubin 0.9 0.8 (0.2-1.0) mg/dL AST 26 32 (15-37) U/L ALT 35 39 (16-63) U/L Alkaline Phosphatase 120 H 116 (46-116) U/L Albumin 2.8 L 2.3 L (3.4-5.0) g/dL Progress Note: A&P Assessment and Plan (1) Sepsis: Qualifiers: Acute renal failure type: unspecified Sepsis acute organ dysfunction status: with acute organ dysfunction Sepsis type: sepsis due to unspecified organism Severe sepsis acute organ dysfunction type: acute renal failure Severe sepsis shock status: without septic shock Qualified Code(s): A41.9 - Sepsis, unspecified organism; R65.20 - Severe sepsis without septic shock; N17.9 - Acute kidney failure, unspecified (2) Cellulitis: Qualifiers: Laterality: left Site of cellulitis: extremity Site of cellulitis of extremity: lower extremity Qualified Code(s): L03.116 - Cellulitis of left lower limb (3) MARITZA (acute kidney injury): (4) Acute hypokalemia: (5) Hypomagnesemia: (6) HTN (hypertension): Qualifiers: Hypertension type: primary hypertension Qualified Code(s): I10 - Essential (primary) hypertension (7) D-dimer, elevated: Plan Admission findings: Sinus tachycardia, hypotension, acute hypoxia, other significant leukocytosis elevated ESR and CRP secondary to left lower extremity cellulitis which is resulted in acute sepsis. Sepsis: Meets Sepsis Criteria - Leukocytosis, tachycardia, SBP less than 100. Sec to Cellulitis, associated with MARITZA. Adjusted antibiotics today secondary to kidney function Cellulitis: Antibiotics as outlined above, checking venous Doppler Acute elevation in creatinine-improved today Acute hypokalemia: Improved but then back down-increase supplementation Hypomagnesemia: Chronic hypokalemia-increase supplementation to 3 times daily HTN (hypertension): Blood pressure on the low side, cut back on beta-missy D-dimer, elevated: Venous Doppler pending Anemia-hemoglobin down slightly today, consider Hemoccults Borderline hypoxia resolved-possible sleep apnea Asthma without acute exacerbation-continue with home medications Peripheral neuropathy-continue with home medications Hypothyroidism-continue with home medications GERD-continue with home medications Admission status: Patient placed inpatient status secondary to the acute elevation in creatinine, significant leukocytosis and hypotension resulting in sepsis secondary to cellulitis, he is likely here 3 to 4 days, with medically n ecessary treatment spanning 2 midnights he will be made inpatient status
[2025-02-08] MEDS: LINEZOLID IN DEXTROSE 5% 600 MG/300 ML PIGGYBACK 300 MG IV (08:09)
--- NOTE | 2025-02-08 08:24 | CM.NOTE ---
Rounds made with Dr. Morales. Dr. Morales reviews plan of care and findings with Mr. Sheehan. Continue IVF, Ultrasound of leg and Ultrasound of kidneys to be completed. Verbalizes understands.
--- NOTE | 2025-02-08 08:39 | US_ITS ---
The [address] [address] Patient Name: VANDA GUILLAUME MRN: [id number] date: 1965 Sex: M Assigned Patient Location: [place] Current Patient Location: [place] Accession/Order Number: [id number] Exam Date: 02/08/2025 11:53 Report Date: 02/08/2025 11:55 At the request of: EDIS CONTE MD Procedure: US renal bladder US renal bladder 02/08/2025 11:00 AM SIGNS AND SYMPTOMS: ^MARITZA COMPARISON: None. FINDINGS: Right kidney measures 12.1 x 6.9 x 7.5 cm. The right renal cortex measures 1.9 cm in thickness. No hydronephrosis or mass. Left kidney measures 11.4 x 7.7 x 6.5 cm. The left renal cortex measures 1.4 cm in thickness. No hydronephrosis or mass. The urinary bladder is morphologically normal. No free fluid is seen in the pelvis. Before voiding, the bladder measures 12.0 x 7.0 x 7.1 cm, which corresponds to an estimated volume of 418 mL . After voiding, the bladder measures 6.9 x 3.4 x 2.9 cm , which corresponds to an estimated volume of 36 .mL US/US renal bladder IMPRESSION: No hydronephrosis or mass. Impression dictated by: Pito Wong M.D. 02/08/2025 11:55 AM Dictation Location: [place] [address] Electronically authenticated by: [id number] Y Date: 02/08/2025 11:55
[2025-02-08] MEDS: GABAPENTIN 300 MG CAPSULE 600 MG PO ×2 (09:12→21:05)
[2025-02-08] MEDS: POTASSIUM CHLORIDE 10 MEQ ER TABLET 20 MEQ PO ×2 (09:13→21:05)
[2025-02-08] MEDS: PANTOPRAZOLE SODIUM 40 MG TABLET.DR PO (09:13)
[2025-02-08] MEDS: OXYCODONE HCL 5 MG TABLET PO ×2 (09:13→21:05)
[2025-02-08] MEDS: PIPERACILLIN SODIUM/TAZOBACTAM 3.375 GM in 0.9 % SODIUM CHLORIDE 50 ML IV ×2 (09:15→16:21)
--- NOTE | 2025-02-08 11:13 | SWNOTE1 ---
SW met with pt to discuss dc needs. Pt lives at home with his and is independent. Pt has no anticipated discharge needs at this time. SW to follow as needed.
[2025-02-08] MEDS: MAGNESIUM OXIDE 400 MG TABLET PO ×2 (13:46→21:05)
[2025-02-08] MEDS: HEPARIN SODIUM (PORCINE) 5,000 UNIT/ML VIAL 5000 UNIT SUBQ ×2 (13:47→21:06)
[2025-02-08] MEDS: LINEZOLID IN DEXTROSE 5% 600 MG/300 ML PIGGYBACK 200 MG IV (20:40)
[2025-02-08] MEDS: DOXEPIN HCL 10 MG CAPSULE PO (21:05)
[2025-02-08] MEDS: MONTELUKAST SODIUM 10 MG TABLET PO (21:05)
[2025-02-08] MEDS: NEBIVOLOL HCL 5 MG TABLET PO (21:06)
[2025-02-09] VITALS (18 sets, daily range): BP systolic 119–147; BP diastolic 76–84; PULSE 78–93; TEMP 36.4–37.2; O2SAT 90–94
[2025-02-09] MEDS: PIPERACILLIN SODIUM/TAZOBACTAM 3.375 GM in 0.9 % SODIUM CHLORIDE 50 ML IV ×3 (00:13→21:02)
[2025-02-09] MEDS: MAGNESIUM OXIDE 400 MG TABLET PO ×5 (05:17→21:03)
[2025-02-09] MEDS: LEVOTHYROXINE SODIUM 112 MCG TABLET PO (05:17)
[2025-02-09 05:36] LABS: Basophils Absolute Auto 0.1 10^3/uL (0.0-0.1); Basophils Percent Auto 0.5 % (0.2-2.0); Eosinophils Absolute Auto 0.4 10^3/uL (0.0-0.7); Eosinophils Percent Auto 3.7 % (0.9-7.0); Hematocrit 34.2 % (42.0-54.0); Hemoglobin 10.9 g/dL (14.0-18.0); Immature Granulocytes Abs Auto 0.24 10^3/uL (0.00-0.03); Immature Granulocytes Pct Auto 2.1 % (0.0-0.5); Lymphocytes Percent Auto 17.6 % (20.5-60.0); Mean Corpuscular HGB Conc 31.9 g/dL (29.9-35.2); Mean Corpuscular Hemoglobin 31.4 pg (25.9-34.0); Mean Corpuscular Volume 98.6 fL (80.0-94.0); Mean Platelet Volume 10.3 fL (9.5-13.5); Monocytes Percent Auto 8.5 % (1.7-12.0); Neutrophils Absolute Auto 7.7 10^3/uL (1.4-6.5); Neutrophils Percent Auto 67.6 % (43.0-75.0); Platelet Count 325 10^3/uL (150-450); Red Blood Count 3.47 10^6/uL (4.70-6.10); Red Cell Distribution Width 14.4 % (11.0-15.0); White Blood Count 11.4 10^3/uL (4.0-11.0)
[2025-02-09 05:53] LABS: C Reactive Protein 14.75 mg/dL (<=0.50); Magnesium 1.1 mg/dL (1.8-2.4)
[2025-02-09 05:57] LABS: Alanine Aminotransferase 61 U/L (16-63); Albumin Globulin Ratio 0.5; Albumin Level 2.2 g/dL (3.4-5.0); Alkaline Phosphatase 154 U/L (46-116); Anion Gap 16.8; Aspartate Amino Transferase 45 U/L (15-37); BUN Creatinine Ratio 12.6; Bilirubin Total 0.7 mg/dL (0.2-1.0); Calcium 7.6 mg/dL (8.5-10.1); Carbon Dioxide 21.2 mmol/L (21.0-32.0); Chloride 109 mmol/L (98-107); Estimated GFR (African America 42 (>=60 mL/min/1.73m^2); Estimated GFR (Non-African Ame 35 (>=60 mL/min/1.73m^2); Globulin 4.4 g/dL; Glucose 102 mg/dL (74-106); Sodium 143 mmol/L (136-145); Total Protein 6.6 g/dL (6.4-8.2)
--- NOTE | 2025-02-09 06:46 | P.PN_ITS ---
Progress Note: Subjective Subjective Interval history: Leg still feels somewhat tender and especially from a pressure standpoint with swelling Exam Constitutional Vital Signs, click to edit/add: Last Vital Signs Temp 97.6 F 02/09/25 05:21 Pulse 83 02/09/25 06:00 Resp 20 02/09/25 05:21 BP 119/76 02/09/25 05:21 Pulse Ox 91 L 02/09/25 05:21 O2 Del Method Room Air 02/09/25 05:21 Documenting provider has reviewed patient's vital signs: yes Common normals: no apparent distress Chest Common normals: inspection of chest normal Respiratory Common normals: normal respiratory effort, no retractions and clear to a uscultation bilaterally Cardio Common normals: regular rate, regular rhythm and no murmurs GI Common normals: Normal to inspection, nondistended, normoactive bowel sounds present and soft to palpation Extremity Common normals: abnormal to inspection (Chronic skin change as well as acute cellulitis type changes left lower ext) Other: Cellulitis changes at the edge of margins placed, erythema persisting Progress Note: Objective Labs Labs: Short CBC 02/09/25 Range/Units 05:17 WBC 11.4 H (4.0-11.0) 10^3/uL Hgb 10.9 L (14.0-18.0) g/dL Hct 34.2 L (42.0-54.0) % Plt Count 325 (150-450) 10^3/uL BMP 02/09/25 05:17 Sodium 143 Potassium 4.0 Chloride 109 H Carbon Dioxide 21.2 BUN 25.0 H Creatinine 1.98 H Glucose 102 Calcium 7.6 L Liver Function 02/09/25 Range/Units 05:17 Total Bilirubin 0.7 (0.2-1.0) mg/dL AST 45 H (15-37) U/L ALT 61 (16-63) U/L Alkaline Phosphatase 154 H (46-116) U/L Albumin 2.2 L (3.4-5.0) g/dL Progress Note: A&P Assessment and Plan (1) Sepsis: Qualifiers: Acute renal failure type: unspecified Sepsis acute organ dysfunction status: with acute organ dysfunction Sepsis type: sepsis due to unspecified organism Severe sepsis acute organ dysfunction type: acute renal failure Severe sepsis shock status: without septic shock Qualified Code(s): A41.9 - Sepsis, unspecified organism; R65.20 - Severe sepsis without septic shock; N17.9 - Acute kidney failure, unspecified (2) Cellulitis: Qualifiers: Laterality: left Site of cellulitis: extremity Site of cellulitis of extremity: lower extremity Qualified Code(s): L03.116 - Cellulitis of left lower limb (3) MARITZA (acute kidney injury): (4) Acute hypokalemia: (5) Hypomagnesemia: (6) HTN (hypertension): Qualifiers: Hypertension type: primary hypertension Qualified Code(s): I10 - Essential (primary) hypertension (7) D-dimer, elevated: Plan Admission findings: Sinus tachycardia, hypotension, acute hypoxia, ARF, other significant leukocytosis elevated ESR and CRP secondary to left lower extremity cellulitis which is resulted in acute sepsis. Sepsis: Meets Sepsis Criteria - Leukocytosis, tachycardia, SBP less than 100. Sec to Cellulitis, associated with ARF.-White blood cell count improved Cellulitis: Antibiotics as outlined above,-venous Doppler negative, erythema persisting but is overall improved not spread out the line of demarcation but not significantly improved either Acute renal failure-baseline creatinine 1.31, admission creatinine of 4.67 which is 356.5% above baseline resulting in acute renal failure-improved today, currently 1.98 which is 151% above baseline Acute hypokalemia: Improved to baseline Hypomagnesemia: Persistently low, down slightly from previous day, repeat bolus again this morning, recheck levels x 2 later today and repeat boluses as necessary HTN (hypertension): Stable D-dimer, elevated: Venous Doppler negative Anemia-hemoglobin again down slightly today check Hemoccult Borderline hypoxia resolved-possible sleep apnea-stable overnight, not requiring supplemental oxygen but low 90s Asthma without acute exacerbation-continue with home medications Peripheral neuropathy-continue with home medications Hypothyroidism-continue with home medications GERD-continue with home medications Admission status: Patient placed inpatient status secondary to the acute elevation in creatinine, significant leukocytosis and hypotension resulting in sepsis secondary to cellulitis, he is likely here 3 to 4 days, with medically necessary treatment spanning 2 midnights he will be made inpatient status, likely 1 more day of IV antibiotics and IV hydration to improve his acute renal failure and cellulitis
--- NOTE | 2025-02-09 08:13 | CM.NOTE ---
Rounds made with Dr. Morales. Dr. Morales reviews plan of care with Mr. Sheehan. Mr. Sheehan in agreement.
[2025-02-09] MEDS: 0.9 % SODIUM CHLORIDE 1,000 ML 125 ML IV ×2 (08:17→21:07)
[2025-02-09] MEDS: LINEZOLID IN DEXTROSE 5% 600 MG/300 ML PIGGYBACK 300 MG IV ×2 (08:18→18:53)
[2025-02-09] MEDS: PANTOPRAZOLE SODIUM 40 MG TABLET.DR PO (08:19)
[2025-02-09] MEDS: GABAPENTIN 300 MG CAPSULE 600 MG PO ×2 (08:19→21:03)
[2025-02-09] MEDS: POTASSIUM CHLORIDE 10 MEQ ER TABLET 20 MEQ PO ×2 (08:19→21:03)
[2025-02-09] MEDS: ENOXAPARIN SODIUM 40 MG/0.4 ML SYRINGE SUBQ (08:20)
[2025-02-09] MEDS: ACETAMINOPHEN 500 MG TABLET 1000 MG PO (08:27)
[2025-02-09] MEDS: OXYCODONE HCL 5 MG TABLET PO ×2 (08:27→21:02)
[2025-02-09] MEDS: MAGNESIUM SULFATE IN WATER 4 GM/100 ML PIGGYBACK IV (09:41)
[2025-02-09 14:30] LABS: Internal Control Within Normal Limits; Occult Blood Negative
[2025-02-09 16:26] LABS: Magnesium 2.1 mg/dL (1.8-2.4)
[2025-02-09] MEDS: DOXEPIN HCL 10 MG CAPSULE PO (21:02)
[2025-02-09] MEDS: NEBIVOLOL HCL 5 MG TABLET PO (21:03)
[2025-02-09] MEDS: MONTELUKAST SODIUM 10 MG TABLET PO (21:03)
[2025-02-10] VITALS (17 sets, daily range): BP systolic 124–154; BP diastolic 76–84; PULSE 74–94; TEMP 36.6–36.8; O2SAT 90–93; BMI 37.6
[2025-02-10] MEDS: PIPERACILLIN SODIUM/TAZOBACTAM 3.375 GM in 0.9 % SODIUM CHLORIDE 50 ML IV (05:05)
[2025-02-10] MEDS: LEVOTHYROXINE SODIUM 112 MCG TABLET PO (05:06)
[2025-02-10 05:38] LABS: Basophils Absolute Auto 0.1 10^3/uL (0.0-0.1); Basophils Percent Auto 0.8 % (0.2-2.0); Eosinophils Absolute Auto 0.4 10^3/uL (0.0-0.7); Eosinophils Percent Auto 3.5 % (0.9-7.0); Hematocrit 32.4 % (42.0-54.0); Hemoglobin 10.3 g/dL (14.0-18.0); Immature Granulocytes Abs Auto 0.43 10^3/uL (0.00-0.03); Immature Granulocytes Pct Auto 3.8 % (0.0-0.5); Lymphocytes Absolute Auto 1.8 10^3/uL (1.2-3.8); Lymphocytes Percent Auto 15.5 % (20.5-60.0); Mean Corpuscular HGB Conc 31.8 g/dL (29.9-35.2); Mean Corpuscular Hemoglobin 31.3 pg (25.9-34.0); Mean Corpuscular Volume 98.5 fL (80.0-94.0); Mean Platelet Volume 10.2 fL (9.5-13.5); Monocytes Percent Auto 8.3 % (1.7-12.0); Neutrophils Absolute Auto 7.8 10^3/uL (1.4-6.5); Neutrophils Percent Auto 68.1 % (43.0-75.0); Platelet Count 324 10^3/uL (150-450); Red Blood Count 3.29 10^6/uL (4.70-6.10); Red Cell Distribution Width 14.1 % (11.0-15.0); White Blood Count 11.4 10^3/uL (4.0-11.0)
[2025-02-10 06:12] LABS: C Reactive Protein 13.87 mg/dL (<=0.50); Magnesium 1.6 mg/dL (1.8-2.4)
[2025-02-10 06:15] LABS: Alanine Aminotransferase 64 U/L (16-63); Anion Gap 18.7; Aspartate Amino Transferase 36 U/L (15-37); BUN Creatinine Ratio 8.4; Bilirubin Total 0.7 mg/dL (0.2-1.0); Calcium 8.6 mg/dL (8.5-10.1); Carbon Dioxide 20.3 mmol/L (21.0-32.0); Chloride 109 mmol/L (98-107); Estimated GFR (African America 52 (>=60 mL/min/1.73m^2); Estimated GFR (Non-African Ame 43 (>=60 mL/min/1.73m^2); Glucose 115 mg/dL (74-106); Sodium 144 mmol/L (136-145)
[2025-02-10 06:16] LABS: Albumin Globulin Ratio 0.5; Albumin Level 2.3 g/dL (3.4-5.0); Alkaline Phosphatase 197 U/L (46-116); Globulin 4.4 g/dL; Total Protein 6.7 g/dL (6.4-8.2)
--- NOTE | 2025-02-10 07:03 | P.PN_ITS ---
Progress Note: Subjective Subjective Interval history: Still with significant pain to the left lower extremity, patient states pain not really significant improved from admission Exam Constitutional Vital Signs, click to edit/add: Last Vital Signs Temp 97.9 F 02/10/25 05:08 Pulse 87 02/10/25 06:03 Resp 18 02/10/25 05:08 BP 134/79 02/10/25 05:08 Pulse Ox 90 L 02/10/25 05:08 O2 Del Method Room Air 02/10/25 05:08 Documenting provider has reviewed patient's vital signs: yes Common normals: no apparent distress Chest Common normals: inspection of chest normal Respiratory Common normals: normal respiratory effort, no retractions and clear to auscultation bilaterally Cardio Common normals: regular rate, regular rhythm and no murmurs GI Common normals: Normal to inspection, nondistended, normoactive bowel sounds present and soft to palpation Extremity Common normals: abnormal to inspection (Erythema is on the anterior surface improved, posterior persisting up leg) Other: Cellulitis changes at the edge of margins placed, erythema persisting Progress Note: Objective Labs Labs: Short CBC 02/10/25 Range/Units 05:25 WBC 11.4 H (4.0-11.0) 10^3/uL Hgb 10.3 L (14.0-18.0) g/dL Hct 32.4 L (42.0-54.0) % Plt Count 324 (150-450) 10^3/uL BMP 02/10/25 05:25 Sodium 144 Potassium 4.0 Chloride 109 H Carbon Dioxide 20.3 L BUN 14.0 Creatinine 1.67 H Glucose 115 H Calcium 8.6 Liver Function 02/10/25 Range/Units 05:25 Total Bilirubin 0.7 (0.2-1.0) mg/dL AST 36 (15-37) U/L ALT 64 H (16-63) U/L Alkaline Phosphatase 197 H (46-116) U/L Albumin 2.3 L (3.4-5.0) g/dL Progress Note: A&P Assessment and Plan (1) Sepsis: Qualifiers: Acute renal failure type: unspecified Sepsis acute organ dysfunction status: with acute organ dysfunction Sepsis type: sepsis due to unspecified organism Severe sepsis acute organ dysfunction type: acute renal failure Severe sepsis shock status: without septic shock Qualified Code(s): A41.9 - Sepsis, unspecified organism; R65.20 - Severe sepsis without septic shock; N17.9 - Acute kidney failure, unspecified (2) Cellulitis: Qualifiers: Laterality: left Site of cellulitis: extremity Site of cellulitis of extremity: lower extremity Qualified Code(s): L03.116 - Cellulitis of left lower limb (3) MARITZA (acute kidney injury): (4) Acute hypokalemia: (5) Hypomagnesemia: (6) HTN (hypertension): Qualifiers: Hypertension type: primary hypertension Qualified Code(s): I10 - Esse ntial (primary) hypertension (7) D-dimer, elevated: Plan Admission findings: Sinus tachycardia, hypotension, acute hypoxia, ARF, other significant leukocytosis elevated ESR and CRP secondary to left lower extremity cellulitis which is resulted in acute sepsis. Sepsis: Meets Sepsis Criteria - Leukocytosis, tachycardia, SBP less than 100. Sec to Cellulitis, associated with ARF. Blood cell count without significant change, is improved from admission, but still not to normal, pain persisting, repeat ultrasound to confirm no DVT does have red streak in the left upper thigh, check CT scan with and without contrast to rule out infection in bone with dottie in place Cellulitis: With lack of improvement in overall symptoms-change antibiotics Acute renal failure-baseline creatinine 1.31, admission creatinine of 4.67 which is 356.5% above baseline resulting in acute renal failure--continues to improve, cut back on IV fluids, creatinine improved, still 127.5% above baseline Acute hypokalemia: Improved to baseline Hypomagnesemia: Improved yesterday down slightly today we will repeat bolus HTN (hypertension): Stable D-dimer, elevated: Venous Doppler negative Mild elevation in liver function test-monitor daily likely related to passive congestion, no abdominal tenderness Anemia-hemoglobin again down slightly today check Hemoccult Borderline hypoxia resolved-possible sleep apnea-stable overnight, not requiring supplemental oxygen but low 90s Asthma without acute exacerbation-continue with home medications Peripheral neuropathy-continue with home medications Hypothyroidism-continue with home medications GERD-continue with home medications Admission status: Patient placed inpatient status secondary to the acute elevation in creatinine, significant leukocytosis and hypotension resulting in sepsis secondary to cellulitis, he is likely here 3 to 4 days, with medically necessary treatment spanning 2 midnights he will be made inpatient status, likely 1 more day of IV antibiotics and IV hydration to improve his acute renal failure and cellulitis
--- NOTE | 2025-02-10 07:36 | CT_ITS ---
The [address] [address] Patient Name: VANDA GUILLAUME MRN: [id number] date: 1965 Sex: M Assigned Patient Location: [place] Current Patient Location: [place] Accession/Order Number: [id number] Exam Date: 02/10/2025 09:18 Report Date: 02/10/2025 09:38 At the request of: EDIS CONTE MD Procedure: CT lower leg LT wo/w con CT LEFT LOWER LEG WITHOUT AND WITH INTRAVENOUS CONTRAST CLINICAL DATA: Chronic leg rash with recent worsening and also pain laterally. COMPARISON: Plain films 02/07/2025 Spiral images were obtained through the left lower leg from just above the knee through the ankle before and after intravenous administration of 100 mL of Visipaque 270. Sagittal, coronal and 3-D volume rendered reconstructions were also reviewed. This CT exam was performed using one or more following dose reduction techniques: Automated exposure control, adjustment of the mA and/or kV according to patient size, or use of iterative reconstruction technique. There is redemonstration of a lateral plate and multiple screws along the distal fibula. There is some associated streak artifact. There is evidence of a previous syndesmosis screw which is been removed. There is bony bridging between the distal tibia and fibula. No acute fractures, dislocation or bony destruction is noted in the field of view. There is mild narrowing at the medial tibiofemoral joint compartment. There is minor marginal spurring at the knee. There are several small loose bodies within the joint space of the knee posteriorly. Spurring is also seen at the distal tibia and fibula. No musculotendinous abnormalities are noted. There is subcutaneous edema and fluid throughout the [id number], greater anteriorly toward the knee. This is more diffuse distally. There is also some skin thickening, greatest at the distal anterior medial thomas. There is a subtle, localized subcutaneous 2.5 x 0.8 x 1.5 cm fluid attenuation area along the anterior proximal tibia. There is no obvious associated enhancement or subcutaneous air however soft tissue abscess is difficult to exclude. No additional rim-enhancing fluid collections are identified. CT/CT lower leg LT wo/w con IMPRESSION: POSTOPERATIVE AND DEGENERATIVE CHANGES, DESCRIBED. SUBCUTANEOUS EDEMA AND SKIN THICKENING COMPATIBLE WITH CELLULITIS. EQUIVOCAL SMALL PROXIMAL PRETIBIAL SOFT TISSUE ABSCESS. CLINICAL CORRELATION IS RECOMMENDED. ULTRASOUND COULD BE CONSIDERED IF ADDITIONAL IMAGING EVALUATION IS STILL WARRANTED. Impression dictated by: Ivette Duarte M.D. 02/10/2025 9:38 AM Dictation Location: [place] [address] Electronically authenticated by: [id number] Y Date: 02/10/2025 09:38
[2025-02-10] MEDS: OXYCODONE HCL 5 MG TABLET PO ×3 (08:27→22:00)
[2025-02-10] MEDS: ENOXAPARIN SODIUM 40 MG/0.4 ML SYRINGE SUBQ (08:27)
[2025-02-10] MEDS: GABAPENTIN 300 MG CAPSULE 600 MG PO ×2 (08:27→21:01)
[2025-02-10] MEDS: PANTOPRAZOLE SODIUM 40 MG TABLET.DR PO (08:27)
[2025-02-10] MEDS: MAGNESIUM OXIDE 400 MG TABLET PO ×4 (08:27→21:00)
[2025-02-10] MEDS: POTASSIUM CHLORIDE 10 MEQ ER TABLET 20 MEQ PO ×2 (08:27→21:01)
--- NOTE | 2025-02-10 08:30 | CM.NOTE ---
Rounds made with Dr. Morales, pt c/o pain to L inner thigh. Redness noted to be extending behind knee up the thigh and warm to touch. Dr. Morales will get CT scan today for further evaluation of leg. No discharge today.
[2025-02-10] MEDS: 0.9 % SODIUM CHLORIDE 1,000 ML 125 ML IV ×2 (08:37→18:46)
[2025-02-10] MEDS: LEVOFLOXACIN IN DEXTROSE 5 % 750 MG/150 ML PREMIX 100 MG IV (09:09)
[2025-02-10] MEDS: MAGNESIUM SULFATE IN WATER 4 GM/100 ML PIGGYBACK IV (09:09)
--- NOTE | 2025-02-10 10:05 | US_ITS ---
The [address] [address] Patient Name: VANDA GUILLAUME MRN: [id number] date: 1965 Sex: M Assigned Patient Location: MS Current Patient Location: MS Accession/Order Number: [id number] Exam Date: 02/10/2025 11:13 Report Date: 02/10/2025 11:20 At the request of: EDIS CONTE MD Procedure: US extremity nonvascular LT LIMITED LEFT LOWER EXTREMITY ULTRASOUND CLINICAL DATA: Follow-up possible proximal pretibial fluid collection on CT COMPARISON: CT 02/10/2025 Real-time ultrasound evaluation of the proximal left lower leg was performed. At the anterior thomas proximally, there is a deep subcutaneous fluid collection which has some debris measuring 25 x 4 x 20 mm in size. This is superficial to the insertion of the patellar tendon. The differential for the finding could include superficial infrapatellar bursitis and a small soft tissue abscess. No other ultrasound abnormalities were seen in the area scanned. US/US extremity nonvascular LT IMPRESSION: SMALL MILDLY COMPLICATED FLUID COLLECTION AT THE SITE OF CONCERN ON CT, DESCRIBED. CORRELATION IS RECOMMENDED WITH SYMPTOMS AT THIS SITE. Impression dictated by: Ivette Duarte M.D. 02/10/2025 11:20 AM Dictation Location: [place] [address] Electronically authenticated by: [id number] Y Date: 02/10/2025 11:20
--- NOTE | 2025-02-10 11:12 | CM.NOTE ---
Talked with pt about Eliquis and reason for medication, pt also provided with 10 dollar co-pay card and 30 day free trial. Pt verbalizes understanding and denies any questions.
[2025-02-10] MEDS: APIXABAN 5 MG TABLET 10 MG PO (11:16)
[2025-02-10] MEDS: CEFTRIAXONE 2,000 MG in 0.9 % SODIUM CHLORIDE 100 ML 200 MG IV (11:51)
[2025-02-10] MEDS: ACETAMINOPHEN 500 MG TABLET 1000 MG PO (15:59)
--- NOTE | 2025-02-10 16:03 | PM.ORCN ---
History of Present Illness HPI Consult date: 02/10/25 Requesting physician: Angelo Morales Narrative: Patient is a 59-year-old male who had presented to the ED on Saturday with complaints of left leg pain and redness that had been progressing for the previous 3 days before his presentation. He was starting to not be able to walk well secondary to the ankle pain that he localizes to the lateral malleolus. He has a surgical history in this leg of a Ankle ORIF about 13 years ago. He will intermittently get a red rash on this leg sometimes, but this is worse. He has had psoriatic patches on the leg since his Tibia hardware was removed, the fibula plate and screws remain in place. His vitals and labs in the ED and clinical presentation were concerning for infection. He also had a creatinine of over 3 he was started on Zosyn and clindamycin and admitted. He also has a superficial venous clot in the LLE and has been started on AC. Orthopedics was consulted today after no improvement in swelling and erythema of the left lower extremity with CT and ultrasound revealing as small abscess in the lower leg anterior proximal tibia area. Patient states that his lateral ankle is a little improved but still very painful. [facility] Medical History (Updated 02/07/25 @ 15:59 by Shaikh Ana Cristina MD) HTN (hypertension) ?I10 - Essential (primary) hypertension (ICD-10) Social History (Updated 02/07/25 @ 14:36 by Winsome Pulido RN) Within the past year, how often did you have a drink containing alcohol: 2-3 times a week Within the past year, how many standard drinks containing alcohol did you have on a typical day: 10 or more Within the past year, how often did you have six or more drinks on one occasion: monthly Total score: 10 Score interpretation: A score of 4 or more indicates drinking is likely to affect patient's safety. Smoking status: Current every day smoker Second hand tobacco smoke exposure: Yes (smokes marijuana, not tobbacco) Non-prescribed substance use: cannabis (any form) Known occupational exposures/hazards: No Highest level of school completed/degree received: high school graduate Do you want help with school or training: No Are you now , , , , never or living with a partner: In a typical week, how many times do you talk on the telephone with family, friends, or neighbors: 3 or more times per week How often do you get together with friends or relatives: once per week How often do you attend worship or lutheran services: never Little interest or pleasure in doing things: not at all Feeling down, depressed, or hopeless: not at all Feel stressed/tense/nervous/anxious/difficulty sleeping: not at all Meds Home Medications and Allergies Home Medications ?Medication ?Instructions ?Recorded ?Confirmed ?Type amlodipine 10 mg tablet 10 mg PO DAILY 02/07/25 02/07/25 History budesonide-formoterol HFA 160 2 puff inhalation Q12H 02/07/25 02/07/25 History mcg-4.5 mcg/actuation aerosol inhaler doxepin 10 mg/mL oral concentrate 10 mg PO BEDTIME 02/07/25 02/07/25 History gabapentin 600 mg tablet 600 mg PO BID 02/07/25 02/07/25 History levothyroxine 112 mcg tablet 112 mcg PO DAILY 02/07/25 02/07/25 History magnesium glycinate 100 mg (as 100 mg PO TID 02/07/25 02/07/25 History glycinate) tablet montelukast 10 mg tablet 10 mg PO BEDTIME 02/07/25 02/07/25 History nebivolol 10 mg tablet 10 mg PO DAILY 02/07/25 02/07/25 History omeprazole 40 mg capsule,delayed 40 mg PO DAILY 02/07/25 02/07/25 History release valsartan 320 mg tablet 320 mg PO DAILY 02/07/25 02/07/25 History Allergies Allergy/AdvReac Type Severity Reaction Status Date / Time No Known Drug Allergies Allergy Verified 02/27/24 09:26 Exam Narrative Exam Narrative: On exam patient is in no distress, sitting up in the hospital bed, age-appropriate, alert and oriented x 3. Patient observed ambulating and ambulates with mildly antalgic gait, not using an ambulatory aid. On inspection of the left lower extremity it is edematous and there is erythema from just above the knee to the proximal portion of the foot. The erythema at the ankle/foot has past the line of demarcation that was placed on 02/08. There is 2/3+ pitting edema in the lower leg diffusely, worse around the thomas. There is a large psoriatic rash on the anterior lower leg and posterior leg. There is tenderness with palpation of the lateral malleolus. I cannot appreciate the collection of fluid on the proximal portion of the tibia on inspection or palpation. Knee ROM is 0-90, Ankle ROM is decreased in eversion/inversion as compared contralaterally. 5/5 DF/PF strength, 2+ DP pulse palpated. Sensation is intact distally with light touch. Constitutional Vital Signs, click to edit/add: Last Vital Signs Temp 98.0 F 02/10/25 15:54 Pulse 86 02/10/25 15:54 Resp 16 02/10/25 15:54 BP 140/84 02/10/25 15:54 Pulse Ox 93 L 02/10/25 15:54 O2 Del Method Room Air 02/10/25 15:54 Results Labs Labs: Abnormal lab results 02/10/25 Range/Units 05:25 WBC 11.4 H (4.0-11.0) 10^3/uL RBC 3.29 L (4.70-6.10) 10^6/uL Hgb 10.3 L (14.0-18.0) g/dL Hct 32.4 L (42.0-54.0) % MCV 98.5 H (80.0-94.0) fL Lymph % (Auto) 15.5 L (20.5-60.0) % Neut # (Auto) 7.8 H (1.4-6.5) 10^3/uL [place] # (Auto) 1.0 H (0.3-0.8) 10^3/uL Abs Immat Gran (auto) 0.43 H (0.00-0.03) 10^3/uL Imm/Tot Granulo (auto) 3.8 H (0.0-0.5) % Chloride 109 H (98-107) mmol/L Carbon Dioxide 20.3 L (21.0-32.0) mmol/L Creatinine 1.67 H (0.70-1.30) mg/dL Est GFR ( Amer) 52 L (>=60 mL/min/1.73m^2) Est GFR (Non-Af Amer) 43 L (>=60 mL/min/1.73m^2) Glucose 115 H (74-106) mg/dL Magnesium 1.6 L (1.8-2.4) mg/dL ALT 64 H (16-63) U/L Alkaline Phosphatase 197 H (46-116) U/L C-Reactive Protein 13.87 H (<=0.50) mg/dL Albumin 2.3 L (3.4-5.0) g/dL H & H 02/07/25 02/08/25 02/09/25 Range/Units 12:02 05:24 05:17 Hgb 13.6 L 11.3 L 10.9 L (14.0-18.0) g/dL Hct 41.1 L 33.8 L 34.2 L (42.0-54.0) % 02/10/25 Range/Units 05:25 Hgb 10.3 L (14.0-18.0) g/dL Hct 32.4 L (42.0-54.0) % All other labs normal. Assessment and Plan Assessment and Plan (1) Sepsis: Qualifiers: Acute renal failure type: unspecified Sepsis acute organ dysfunction status: with acute organ dysfunction Sepsis type: sepsis due to unspecified organism Severe sepsis acute organ dysfunction type: acute renal failure Severe sepsis shock status: without septic shock Qualified Code(s): A41.9 - Sepsis, unspecified organism; R65.20 - Severe sepsis without septic shock; N17.9 - Acute kidney failure, unspecified (2) Cellulitis: Assessment and Plan: Cellulitis LLE lower leg, knee to ankle/foot, fluid collection on imaging, elevated infection/inflammatory markers - Prior Ankle ORIF, Psoriasis LLE after Tibia hardware removal, fibula plate and screws still in place - CT LLE, Ultrasound LLE reviewed by myself and reveal a deep subcutaneous fluid collection which has some debris measuring 25 x 4 x 20 mm in size. This is superficial to the insertion of the patellar tendon.There is no obvious associated enhancement or subcutaneous air however soft tissue abscess is difficult to exclude. - Was on Clinda and Zosyn, Blood Cx neg, now on Rocephin and Levaquin - WBC 11.4 from 15 on admission, Hgb 10.3 ESR 70 on admission, CRP 32 on admission has trended down to 13 today - WBAT - MRI Left Tib/Fib ordered-will eval lateral malleolus as well to r/o osteo - All of the pain is in the ankle, will make sure there is no source of infection there as well, fluid collection is small on imaging - NPO at midnight, hold anticoagulation (Eliquis), will review MRI tomorrow and give further recommendations Plan discussed with and agreed upon by my Supervising Physician, Dr Jones. Qualifiers: Laterality: left Site of cellulitis: extremity Site of cellulitis of extremity: lower extremity Qualified Code(s): L03.116 - Cellulitis of left lower limb (3) MARITZA (acute kidney injury): (4) Acute hypokalemia: (5) Hypomagnesemia: (6) D-dimer, elevated:
--- NOTE | 2025-02-10 18:44 | DIETREC ---
Recommend 237 mL Ensure High PRO BID. Pt prefers strawberry, if available.
[2025-02-10] MEDS: MONTELUKAST SODIUM 10 MG TABLET PO (21:00)
[2025-02-10] MEDS: NEBIVOLOL HCL 5 MG TABLET PO (21:01)
[2025-02-10] MEDS: DOXEPIN HCL 10 MG CAPSULE PO (21:01)
[2025-02-11] VITALS (13 sets, daily range): BP systolic 133–157; BP diastolic 81–93; PULSE 72–87; TEMP 36.6–36.9; O2SAT 91–94
--- NOTE | 2025-02-11 | MR_ITS ---
The [address] [address] Patient Name: VANDA GUILLAUME MRN: [id number] date: 1965 Sex: M Assigned Patient Location: MS Current Patient Location: [place] Accession/Order Number: [id number] Exam Date: 02/11/2025 13:43 Report Date: 02/11/2025 13:48 At the request of: CHARLES YU Procedure: MR lower leg LT wo con MR lower leg LT wo con 02/11/2025 1:25 PM SIGNS AND SYMPTOMS: ^Left Tib/Fib-eval fluid jay and lat mal r/o osteomyelitis, chronic pain, redness, and swelling PROTOCOL: Multiplanar multisequence MR images of the left lower leg were obtained without IV contrast COMPARISON: 02/10/2025 FINDINGS: There is evidence of prior plate and screw fixation of the lateral malleolus. The marrow signal of the tibia, fibula, and visualized distal femur and patella is within normal limits with no evidence of osteomyelitis. Extensive subcutaneous edema is noted with fluid along the fascial planes of the posterior compartment and along the anterior aspect of the lower leg external to the fascia the anterior compartment. Edema extends into the gastrocnemius musculature medially suggesting mild myositis. No well-defined fluid collection is noted to suggest the presence of abscess. The neurovascular bundle appear to be within normal limits. There is redemonstration of narrowing of the weightbearing joint spaces greatest medially within the knee. MR/MR lower leg LT wo con IMPRESSION: Extensive edema in the subcutaneous fat, anterior to the fascia of the anterior compartment, and along the fascia of the posterior compartment without evidence of abscess formation. No MR evidence of osteomyelitis. Findings suggest myositis involving the medial head of the gastrocnemius musculature. Impression dictated by: Pito Wong M.D. 02/11/2025 1:48 PM Dictation Location: [place] [address] Electronically authenticated by: [id number] Y Date: 02/11/2025 13:48
[2025-02-11] MEDS: LEVOTHYROXINE SODIUM 112 MCG TABLET PO (05:00)
[2025-02-11 05:17] LABS: Hematocrit 33.5 % (42.0-54.0); Hemoglobin 10.6 g/dL (14.0-18.0); Mean Corpuscular HGB Conc 31.6 g/dL (29.9-35.2); Mean Corpuscular Hemoglobin 31.1 pg (25.9-34.0); Mean Corpuscular Volume 98.2 fL (80.0-94.0); Platelet Count 443 10^3/uL (150-450); Red Blood Count 3.41 10^6/uL (4.70-6.10); White Blood Count 11.2 10^3/uL (4.0-11.0)
[2025-02-11 05:32] LABS: C Reactive Protein 12.79 mg/dL (<=0.50); Magnesium 1.7 mg/dL (1.8-2.4)
[2025-02-11 05:37] LABS: Alanine Aminotransferase 70 U/L (16-63); Albumin Globulin Ratio 0.5; Albumin Level 2.2 g/dL (3.4-5.0); Alkaline Phosphatase 197 U/L (46-116); Anion Gap 15.7; Aspartate Amino Transferase 35 U/L (15-37); BUN Creatinine Ratio 6.6; Bilirubin Total 0.5 mg/dL (0.2-1.0); Calcium 8.7 mg/dL (8.5-10.1); Carbon Dioxide 23.5 mmol/L (21.0-32.0); Chloride 110 mmol/L (98-107); Estimated GFR (African America >60 (>=60 mL/min/1.73m^2); Estimated GFR (Non-African Ame >60 (>=60 mL/min/1.73m^2); Globulin 4.5 g/dL; Glucose 106 mg/dL (74-106); Potassium 4.2 mmol/L (3.5-5.1); Sodium 145 mmol/L (136-145); Total Protein 6.7 g/dL (6.4-8.2)
[2025-02-11 05:42] LABS: Band Neutrophils Absolute 0.2 10^3/uL (0.0-0.3); Lymphocytes Absolute Manual 2.68 10^3/uL (1.20-3.80); Segmented Neut Absolute Manual 7.16 10^3/uL (1.4-6.5)
[2025-02-11 05:43] LABS: Anisocytosis 1+; Basophils Abs Manual 0.11 10^3/uL (0.00-0.10); Eosinophils Absolute Manual 0.44 10^3/uL (0.00-0.70); Monocytes Absolute Manual 0.56 10^3/uL (0.30-0.80)
[2025-02-11] MEDS: 0.9 % SODIUM CHLORIDE 1,000 ML 75 ML IV (07:23)
[2025-02-11] MEDS: POTASSIUM CHLORIDE 10 MEQ ER TABLET 20 MEQ PO ×2 (08:19→21:04)
[2025-02-11] MEDS: PANTOPRAZOLE SODIUM 40 MG TABLET.DR PO (08:19)
[2025-02-11] MEDS: APIXABAN 5 MG TABLET 10 MG PO ×2 (08:19→21:04)
[2025-02-11] MEDS: GABAPENTIN 300 MG CAPSULE 600 MG PO ×2 (08:19→21:04)
[2025-02-11] MEDS: ACETAMINOPHEN 500 MG TABLET 1000 MG PO ×2 (08:19→14:32)
[2025-02-11] MEDS: OXYCODONE HCL 5 MG TABLET PO ×3 (08:19→21:04)
--- NOTE | 2025-02-11 08:20 | P.PN_ITS ---
Progress Note: Subjective Subjective Interval history: Feels like he still having pain and pressure in left lower extremity Exam Constitutional Vital Signs, click to edit/add: Last Vital Signs Temp 98.3 F 02/11/25 08:07 Pulse 83 02/11/25 08:07 Resp 18 02/11/25 08:07 BP 147/90 H 02/11/25 08:07 Pulse Ox 91 L 02/11/25 08:07 O2 Del Method Room Air 02/11/25 08:07 Documenting provider has reviewed patient's vital signs: yes Common normals: no apparent distress Chest Common normals: inspection of chest normal Respiratory Common normals: normal respiratory effort, no retractions and clear to auscultation bilaterally Cardio Common normals: regular rate, regular rhythm and no murmurs GI Common normals: Normal to inspection, nondistended, normoactive bowel sounds present and soft to palpation Extremity Common normals: abnormal to inspection (Overall erythema is improving since changing antibiotics yesterday ) Other: Still outside the line of demarcation posteriorly Progress Note: Objective Labs Labs: Short CBC 02/11/25 Range/Units 04:51 WBC 11.2 H (4.0-11.0) 10^3/uL Hgb 10.6 L (14.0-18.0) g/dL Hct 33.5 L (42.0-54.0) % Plt Count 443 (150-450) 10^3/uL BMP 02/11/25 04:51 Sodium 145 Potassium 4.2 Chloride 110 H Carbon Dioxide 23.5 BUN 8.0 Creatinine 1.22 Glucose 106 Calcium 8.7 Liver Function 02/11/25 Range/Units 04:51 Total Bilirubin 0.5 (0.2-1.0) mg/dL AST 35 (15-37) U/L ALT 70 H (16-63) U/L Alkaline Phosphatase 197 H (46-116) U/L Albumin 2.2 L (3.4-5.0) g/dL Progress Note: A&P Assessment and Plan (1) Sepsis: Qualifiers: Acute renal failure type: unspecified Sepsis acute organ dysfunction status: with acute organ dysfunction Sepsis type: sepsis due to unspecified organism Severe sepsis acute organ dysfunction type: acute renal failure Severe sepsis shock status: without septic shock Qualified Code(s): A41.9 - Sepsis, unspecified organism; R65.20 - Severe sepsis without septic shock; N17.9 - Acute kidney failure, unspecified (2) Cellulitis: Qualifiers: Laterality: left Site of cellulitis: extremity Site of cellulitis of extremity: lower extremity Qualified Code(s): L03.116 - Cellulitis of left lower limb (3) MARITZA (acute kidney injury): (4) Acute hypokalemia: (5) Hypomagnesemia: (6) D-dimer, elevated: (7) HTN (hypertension): Qualifiers: Hypertension type: primary hypertension Qualified Code(s): I10 - Essential (primary) hypertension Plan Admission findings: Sinus tachycardia, hypotension, acute hypoxia, ARF, other significant leukocytosis elevated ESR and CRP secondary to left lower extremity cellulitis which is resulted in acute sepsis. Sepsis: Meets Sepsis Criteria - Leukocytosis, tachycardia, SBP less than 100. Sec to Cellulitis, associated with ARF. Blood cell count without significant change, is improved from admission, but still not to normal, pain persisting, repeat ultrasound to confirm no DVT does have red streak in the left upper thigh, check CT scan with and without contrast to rule out infection in bone with dottie in place Cellulitis with possible abscess noted on CT and ultrasound: With lack of improvement in overall symptoms-changed antibiotics on 02/10 -possible surgical intervention later today based on MRI results Acute renal failure-baseline creatinine 1.31, admission creatinine of 4.67 which is 356.5% above baseline resulting in acute renal failure-resolved to normal, maintain fluids while n.p.o. status for possible surgical intervention for abscess as outlined above Acute hypokalemia: Improved to baseline Alcohol abuse-add CIWA scale and as needed Librium Hypomagnesemia: Improved from previous day, increase oral intake had bolus yesterday HTN (hypertension): Stable D-dimer, elevated: Venous Doppler negative Mild elevation in liver function test-likely related to alcohol intake Anemia-stable Borderline hypoxia resolved-possible sleep apnea-stable overnight, not requiring supplemental oxygen but low 90s Asthma without acute exacerbation-continue with home medications Peripheral neuropathy-continue with home medications Hypothyroidism-continue with home medications GERD-continue with home medications Admission status: Patient placed inpatient status secondary to the acute elevation in creatinine, significant leukocytosis and hypotension resulting in sepsis secondary to cellulitis, he is likely here 3 to 4 days, with medically necessary treatment spanning 2 midnights he will be made inpatient status, likely 1 more day of IV antibiotics and IV hydration to improve his acute renal failure and cellulitis
--- NOTE | 2025-02-11 08:22 | CM.NOTE ---
Rounds made with Dr. Morales. Dr. Morales reviews Orthopaedic recommendations and lab findings with Mr. Sheehan. Await further recommendations after MRI. Mr. Sheehan verbalizes understanding.
[2025-02-11] MEDS: MAGNESIUM OXIDE 400 MG TABLET 800 MG PO ×3 (09:33→21:04)
[2025-02-11] MEDS: LEVOFLOXACIN IN DEXTROSE 5 % 750 MG/150 ML PREMIX 100 MG IV (09:34)
[2025-02-11] MEDS: CEFTRIAXONE 2,000 MG in 0.9 % SODIUM CHLORIDE 100 ML 200 MG IV (12:56)
--- NOTE | 2025-02-11 13:11 | PC.NURSE ---
patient updated on plan of care, waiting on MRI results before decision is made to let him eat or drink. Patient verbalizes understanding
[2025-02-11] MEDS: MAGNESIUM SULFATE IN WATER 4 GM/100 ML PIGGYBACK IV (14:29)
[2025-02-11] MEDS: DOXEPIN HCL 10 MG CAPSULE PO (21:04)
[2025-02-11] MEDS: MONTELUKAST SODIUM 10 MG TABLET PO (21:04)
[2025-02-11] MEDS: NEBIVOLOL HCL 5 MG TABLET PO (21:05)
[2025-02-12] MEDS: LEVOTHYROXINE SODIUM 112 MCG TABLET PO (05:03)
[2025-02-12] MEDS: MAGNESIUM OXIDE 400 MG TABLET 800 MG PO (05:03)
[2025-02-12] MEDS: OXYCODONE HCL 5 MG TABLET PO ×2 (05:05→11:13)
[2025-02-12 05:07] VITALS: BP 160/93; PULSE 81; TEMP 36.6; O2SAT 91
[2025-02-12 05:48] LABS: Hematocrit 33.4 % (42.0-54.0); Hemoglobin 10.6 g/dL (14.0-18.0); Mean Corpuscular HGB Conc 31.7 g/dL (29.9-35.2); Mean Corpuscular Volume 97.7 fL (80.0-94.0); Mean Platelet Volume 9.7 fL (9.5-13.5); Platelet Count 506 10^3/uL (150-450); Red Blood Count 3.42 10^6/uL (4.70-6.10); Red Cell Distribution Width 13.7 % (11.0-15.0); White Blood Count 11.3 10^3/uL (4.0-11.0)
[2025-02-12 06:10] LABS: Alanine Aminotransferase 73 U/L (16-63); Albumin Globulin Ratio 0.4; Albumin Level 2.1 g/dL (3.4-5.0); Alkaline Phosphatase 206 U/L (46-116); Anion Gap 14.6; Aspartate Amino Transferase 39 U/L (15-37); Bilirubin Total 0.4 mg/dL (0.2-1.0); C Reactive Protein 9.58 mg/dL (<=0.50); Calcium 8.9 mg/dL (8.5-10.1); Carbon Dioxide 24.6 mmol/L (21.0-32.0); Chloride 108 mmol/L (98-107); Estimated GFR (African America >60 (>=60 mL/min/1.73m^2); Estimated GFR (Non-African Ame >60 (>=60 mL/min/1.73m^2); Globulin 4.8 g/dL; Glucose 107 mg/dL (74-106); Magnesium 1.7 mg/dL (1.8-2.4); Potassium 4.2 mmol/L (3.5-5.1); Sodium 143 mmol/L (136-145); Total Protein 6.9 g/dL (6.4-8.2)
[2025-02-12 06:32] LABS: Basophils Abs Manual 0.11 10^3/uL (0.00-0.10); Eosinophils Absolute Manual 0.33 10^3/uL (0.00-0.70); Metamyelocytes Absolute Manual 0.33; Monocytes Absolute Manual 0.67 10^3/uL (0.30-0.80); Segmented Neut Absolute Manual 8.02 10^3/uL (1.4-6.5)
--- NOTE | 2025-02-12 08:40 | P.DS_ITS ---
DS: Providers Provider Date of admission: 02/07/25 13:48 Primary care physician: Pepper Sexton NP Consults: 02/10/25 13:12 Consult to Orthopedic Surgery Routine Consulting Provider: Jose Hermosillo Reason For Exam: Reason for consultation: Leg abscess Has provider been notified: No DS: Diagnosis Discharge Diagnosis (1) Sepsis: Qualifiers: Acute renal failure type: unspecified Sepsis acute organ dysfunction status: with acute organ dysfunction Sepsis type: sepsis due to unspecified organism Severe sepsis acute organ dysfunction type: acute renal failure Severe sepsis shock status: without septic shock Qualified Code(s): A41.9 - Sepsis, unspecified organism; R65.20 - Severe sepsis without septic shock; N17.9 - Acute kidney failure, unspecified (2) Cellulitis: Qualifiers: Laterality: left Site of cellulitis: extremity Site of cellulitis of extremity: lower extremity Qualified Code(s): L03.116 - Cellulitis of left lower limb (3) MARITZA (acute kidney injury): (4) Acute hypokalemia: (5) Hypomagnesemia: (6) D-dimer, elevated: (7) HTN (hypertension): Qualifiers: Hypertension type: primary hypertension Qualified Code(s): I10 - Essential (primary) hypertension Plan Admission findings: Sinus tachycardia, hypotension, acute hypoxia, ARF, other significant leukocytosis elevated ESR and CRP secondary to left lower extremity cellulitis which is resulted in acute sepsis. Sepsis: Meets Sepsis Criteria - Leukocytosis, tachycardia, SBP less than 100. Sec to Cellulitis, associated with ARF. Blood cell count without significant change, is improved from admission, but still not to normal, pain persisting, repeat ultrasound to confirm no DVT does have red streak in the left upper thigh, check CT scan with and without contrast to rule out infection in bone with dottie in place Cellulitis with possible abscess noted on CT and ultrasound: With lack of improvement in overall symptoms-changed antibiotics on 02/10 -possible surgical intervention later today based on MRI results Acute renal failure-baseline creatinine 1.31, admission creatinine of 4.67 which is 356.5% above baseline resulting in acute renal failure-resolved to normal, maintain fluids while n.p.o. status for possible surgical intervention for abscess as outlined above Acute hypokalemia: Improved to baseline Alcohol abuse-add CIWA scale and as needed Librium Hypomagnesemia: Improved from previous day, increase oral intake had bolus yesterday HTN (hypertension): Stable D-dimer, elevated: Venous Doppler negative Mild elevation in liver function test-likely related to alcohol intake Anemia-stable Borderline hypoxia resolved-possible sleep apnea-stable overnight, not requiring supplemental oxygen but low 90s Asthma without acute exacerbation-continue with home medications Peripheral neuropathy-continue with home medications Hypothyroidism-continue with home medications GERD-continue with home medications Admission status: Patient placed inpatient status secondary to the acute elevation in creatinine, significant leukocytosis and hypotension resulting in sepsis secondary to cellulitis, he is likely here 3 to 4 days, with medically necessary treatment spanning 2 midnights he will be made inpatient status, likely 1 more day of IV antibiotics and IV hydration to improve his acute renal failure and cellulitis ? DS: Summary Hospital Course Hospital Course: Patient admitted for left lower extremity cellulitis, placed on initially vancomycin and Zosyn but then changed to linezolid secondary to acute renal failure, renal failure improved with hydration, his cellulitis did not improve with initial antibiotic regiment and was changed 2 days ago to Rocephin and levofloxacin, since that time the erythema has improved but is persisting but no longer spreading outside the line of demarcation, multiple imaging of the left lower extremity suggested possible abscess MRI scan did not confirm but no osteomyelitis, does have some myositis which can be followed up as an outpatient, at this point with the erythema no longer progressing and change in antibiotics gave patient option of IV antibiotics once a day as an outpatient to be more aggressive, patient opted for oral antibiotics, will discharge patient to home on oral cefdinir as an equivalent to Rocephin and oral levofloxacin is equivalent to IV levofloxacin, follow-up with his PCP next week, for further imaging if necessary. Medications see list. Time Spent with Patient Time attestation: Total time spent providing and/or coordinating discharge services: Exam Constitutional Vital Signs, click to edit/add: Last Vital Signs Temp 97.8 F 02/12/25 05:07 Pulse 81 02/12/25 05:07 Resp 18 02/12/25 05:07 BP 160/93 H 02/12/25 05:07 Pulse Ox 91 L 02/12/25 05:07 O2 Del Method Room Air 02/12/25 05:07 Documenting provider has reviewed patient's vital signs: yes Common normals: no apparent distress Chest Common normals: inspection of chest normal Respiratory Common normals: normal respiratory effort, no retractions and clear to auscultation bilaterally Cardio Common normals: regular rate, regular rhythm and no murmurs GI Common normals: Normal to inspection, nondistended, normoactive bowel sounds present and soft to palpation Extremity Common normals: abnormal to inspection (Erythema now inside the line of demarcation,depth of the erythema fading) Other: Still outside the line of demarcation posteriorly DS: Data Data Completed and Pending Labs on day of discharge: Labs from last 24 hours 02/12/25 05:30 WBC 11.3 H RBC 3.42 L Hgb 10.6 L Hct 33.4 L MCV 97.7 H MCH 31.0 MCHC 31.7 RDW 13.7 Plt Count 506 H MPV 9.7 Seg Neuts % (Manual) 71.0 Lymphocytes % (Manual) 16.0 L Monocytes % (Manual) 6.0 Eosinophils % (Manual) 3.0 Basophils % (Manual) 1.0 Metamyelocytes % 3.0 Neutrophils # (Manual) 8.02 H Lymphocytes # (Manual) 1.80 Monocytes # (Manual) 0.67 Eosinophils # (Manual) 0.33 Basophils # (Manual) 0.11 H Metamyelocytes # 0.33 Sodium 143 Potassium 4.2 Chloride 108 H Carbon Dioxide 24.6 Anion Gap 14.6 BUN 8.0 Creatinine 1.15 Est GFR ( Amer) >60 Est GFR (Non-Af Amer) >60 BUN/Creatinine Ratio 7.0 Glucose 107 H Calcium 8.9 Magnesium 1.7 L Total Bilirubin 0.4 AST 39 H ALT 73 H Alkaline Phosphatase 206 H C-Reactive Protein 9.58 H Total Protein 6.9 Albumin 2.1 L Globulin 4.8 Albumin/Globulin Ratio 0.4 Preliminary micro results at discharge 02/07/25 12:45 Blood Culture Result 2 - Preliminary Blood NO GROWTH AT 36-48 HOURS. FINAL TO FOLLOW. 02/07/25 12:02 Blood Culture Result 1 - Preliminary Blood NO GROWTH AT 36-48 HOURS. FINAL TO FOLLOW. Discharge Plan Discharge Disposition: Home, Self-Care Discharge Medications: New cefdinir 300 mg capsule 600 mg PO DAILY Qty: 28 0RF levofloxacin 750 mg tablet 750 mg PO DAILY 14 Days Qty: 14 0RF Continued budesonide-formoterol 160-4.5 mcg/actuation HFA aerosol inhaler 2 puff INHALATION Q12H gabapentin 600 mg tablet 600 mg PO BID levothyroxine 112 mcg tablet 112 mcg PO DAILY montelukast 10 mg tablet 10 mg PO BEDTIME nebivolol 10 mg tablet 10 mg PO DAILY omeprazole 40 mg capsule,delayed release(DR/EC) 40 mg PO DAILY valsartan 320 mg tablet 320 mg PO DAILY doxepin 10 mg/mL concentrate 10 mg PO BEDTIME magnesium glycinate 100 mg tablet 100 mg PO TID Discontinued amlodipine 10 mg tablet 10 mg PO DAILY Print Language: Sierra Leonean Forms: Portal Instructions Follow Up Appointments: February 17 @ 4:15pm with Pepper Sexton, HEAD OF HOUSEKEEPING [phone]
--- NOTE | 2025-02-12 08:44 | CM.NOTE ---
Rounds made with Dr. Morales, pt will discharge to home today on oral antibiotics. Dr. Morales discussed with pt home care of cellulitis and keeping leg elevated and heat off and on. Pt verbalizes understanding, pt will need to f/u with PCP early next week. MS slag expander will schedule f/u.
[2025-02-12 09:40] VITALS: BP 159/100; PULSE 83; TEMP 36.7; O2SAT 91
[2025-02-12] MEDS: LEVOFLOXACIN IN DEXTROSE 5 % 750 MG/150 ML PREMIX 100 MG IV (09:41)
[2025-02-12] MEDS: GABAPENTIN 300 MG CAPSULE 600 MG PO (09:42)
[2025-02-12] MEDS: PANTOPRAZOLE SODIUM 40 MG TABLET.DR PO (09:42)
[2025-02-12] MEDS: POTASSIUM CHLORIDE 10 MEQ ER TABLET 20 MEQ PO (09:42)
[2025-02-12] MEDS: APIXABAN 5 MG TABLET 10 MG PO (09:42)
[2025-02-12] MEDS: ACETAMINOPHEN 500 MG TABLET 1000 MG PO (09:42)
[2025-02-12 10:55] VITALS: O2SAT 91
[2025-02-12] MEDS: CEFTRIAXONE 2,000 MG in 0.9 % SODIUM CHLORIDE 100 ML 200 MG IV (11:13)
--- NOTE | 2025-02-12 11:53 | PC.NURSE ---
Dr. Carmen alvarado with skipping iv replacement magnesium
--- NOTE | 2025-02-12 14:43 | PC.NURSE ---
patient was supposed to be discharged on eliquis per the physician. video games storywriter [facility] [place] 5mg eliquis, 2 tab twice a day for 4 days. Then 1 tab twice a day. Per Dr. Morales, video games storywriter called patient and gave him the instructions on how to take. Patient verbalized understanding
--- NOTE | 2025-02-16 16:20 | CM.DCFOLLOWU ---
Person spoke with:patient How are you feeling?well How is your pain?none Did you understand your discharge instructions?yes Do you have any questions about your discharge instructions?no Were you given any prescriptions at discharge?yes Were you able to get your prescriptions filled?yes Do you understand how to take your medications as ordered?yes Do you have any questions about your follow up appointment and do you plan to keep your follow up appointment? no questions, follow up tomorrow Is there anything else that you would like to discuss?no Questions/Comments/Concerns/Other:none
== END 2025-02-12 12:20 | disposition home or self-care (01) | DRG 872 ==
LOC: ER 12:49 → MS 13:55
PROVIDERS: Admitting Provider Internal Medicine; Emergency Provider Emergency Medicine; PCP Nurse Practitioner; Visit Provider Family Medicine
DX: A41.9 Sepsis, unspecified organism (principal); N17.9 Acute kidney failure, unspecified; L03.116 Cellulitis of left lower limb; J45.901 Unspecified asthma with (acute) exacerbation; L02.416 Cutaneous abscess of left lower limb; I82.812 Embolism and thrombosis of superficial veins of left lower extremity; R65.20 Severe sepsis without septic shock; E83.42 Hypomagnesemia; E87.6 Hypokalemia; R79.89 Other specified abnormal findings of blood chemistry; I10 Essential (primary) hypertension; Z79.899 Other long term (current) drug therapy; R19.7 Diarrhea, unspecified; F17.200 Nicotine dependence, unspecified, uncomplicated; R09.02 Hypoxemia; R70.0 Elevated erythrocyte sedimentation rate; R79.82 Elevated C-reactive protein (CRP); D64.9 Anemia, unspecified; E03.9 Hypothyroidism, unspecified; K21.9 Gastro-esophageal reflux disease without esophagitis; G62.9 Polyneuropathy, unspecified; M60.9 Myositis, unspecified; F10.10 Alcohol abuse, uncomplicated
CPT/HCPCS: 36415; 73590; 73610; 73702; 73718; 76770; 76882; 80048; 80053; 83605; 83735; 85007; 85025; 85027; 85378; 85652; 86140; 87040; 93005; 93971; 94640; 94761; 96365; 96368; 96375; 99285; G0328; J0696; J1644; J1650; J2020; J2543; J3475; J3480; Q9966

== ENCOUNTER 2025-03-17 08:50 | Outpatient (OUT) | payer BC, SELFPAY ==
--- OUTSIDE RECORDS SUMMARY | 2025-03-08 08:20 | XMS_ITS | Encounter Summary ---
Author Organization [facility] Address [address] [place] [address] Care Team Providers Care Carry In Worker Name Role Phone Anastacio Hinojosa MD Primary Care Provider [phone] Pepper Sexton NP Unavailable [phone] Reason for Referral * Consultation (Stat) - Authorized Specialty Diagnoses / Procedures Referred By Contalejo ybarra Referred To Contact Vascular Surgery Diagnoses Cellulitis of left lower extremity Left leg swelling Procedures [place] OFFICE/OUTPATIENT [facility] 60 MINUTES Pepper Sexton NP [address] [place] [address] Phone: tel: fax: Fátima Hernandez MD [address], [address] [address] Phone: tel:[phone] fax: Referral ID Status Reason Start Date Expiration Date Visits Requested Visits Authorized [id number] Authorized Specialty Services Required 03/08/2025 09/04/2025 1 1 Scheduling Instructions If can be done in [place] office that would be great Reason for Visit * Reason Comments cellulitus of leg Encounter Details Date Type Department Care Team (Late st Contact Info) Description 03/08/2025 8:20 AM EDT Office Visit [facility] [address] [place] [address] Pepper Sexton NP [address] [place] [address] Cellulitis of left lower extremity (Primary Dx); [...] How often do you attend chur or episcopal services? Never 11/25/2023 Do you belong to any clubs o r organizations such as rastafari groups, unions, fraternal or athletic groups, or [...] Recorded Patient Health Questionnaire-2 Score 0 11/26/2023 [facility] [place] of Occupat ional Health - Occupational Stress [...] place to sleep or slept in a nursing home (including now)? No 11/25/2023 Sex and Gender [...] Morbid (severe) obesity due to excess calories ([facility]) Discussed with patient their BMI (actual, verses [...] Morbid (severe) obesity due to excess calories ([facility]) Discussed with patient their BMI (actual, [...] 04/07/2025 8:20 AM EDT [facility] [address] [place] [address] Pepper Sexton NP [address] [place] [address] Scheduled Referrals Name Type Priority Associated Diagnoses Order Schedule Ambulatory referral to Vascular Surgery Outpatient Referral STAT Cellulitis of left lower extremity Left leg swelling Expected: 03/08/2025 (Approximate), Expires: 09/07/2025 documented as of this encounter Visit Diagnoses Diagnosis Cellulitis of left lower extremity- Primary Essential hypertension, benign Essential hypertension, benign Left leg swelling Morbid (severe) obesity due to excess calories ([facility]) Chronic bronchitis, unspecified chronic bronchitis type (HCC) Restless legs syndrome Restless legs syndrome (RLS) Atopic dermatitis, unspecified type documented in this encounter Care Teams Carry In Worker Relationship Specialty Start Date End Date Anastacio Hinojosa MD [address] [place] [address] PCP - General Family Medicine 11/26/23 Pepper Sexton NP [address] [place] [address] Nurse Practitioner Family Medicine 11/26/23 documented as of this encounter
--- OUTSIDE RECORDS SUMMARY | 2025-03-17 08:55 | XMS_ITS | Clinical Summary ---
Author Organization [facility] Address [address] [place] [address] Care Team Providers Care Pantomimist Name Role Phone Unavailable Primary Care Provider Unavailabl e Social History Tobacco Use Types Packs/Day Years Used Date Smoking Tobacco: Never Assessed Sex and Gender Information Value Date Recorded Sex Assigned at Not on file Legal Sex Male 11:32 AM EST Gender Identity Not on file Sexual Orientation Not on file Plan of Treatment Not on file
--- OUTSIDE RECORDS SUMMARY | 2025-03-17 08:55 | XMS_ITS | Clinical Summary ---
Author Organization [facility] Address [address] [place] [address] Care Team Providers Care Psychology Lecturer Name Role Phone Delmer Bryan MD Primary Care Provider [phone] Social History Tobacco Use Types Packs/Day Years Used Date Smoking Tobacco: Never Assessed [place] Safety & Environment Answer Date Rec orded Fear of Current or Ex-Partner Not on file Emotionally Abused Not on file 11/14/2023 Physically Abused Not on file 11/14/2023 Sexually Abused Not on file 11/14/2023 Physically or Sexually Abused Not on file Sex and Gender Information Value Date Recorded Sex Assigned at Not on file Legal Sex Male 10:47 PM EDT Gender Identity Not on file Sexual Orientation Not on file Last Filed Vital Signs Vital Sign Reading Time Taken Comments Blood Pressure - - Pulse - - Temperature - - Respiratory Rate - - Oxygen Saturation - - Inhaled Oxygen Concentration - - Weight 112 kg (246 lb) 01/11/2022 8:45 AM EDT Height 175.3 cm (5' 9 ) 01/11/2022 8:45 AM EDT Body Mass Index 36.33 01/11/2022 8:45 AM EDT Plan of Treatment Health Maintenance Due Date Last Done Comments CT Colonography 1967 Colonoscopy 1967 Colorectal Cancer Screening 1967 FIT-DNA 1967 FIT 1967 FOBT 1967 Sigmoidoscopy 1967 Depression Screening 1979 Hepatitis B Vaccines (1 of 3 - 19+ 3-dose series) 1986 Adult Tetanus 1989 Zoster Vaccines (1 of 2) 2017 Influenza Vaccine (Season Ended) 2025 HIB Vaccines Aged Out No longer eligi ble based on patient's age to complete this topic HPV Vaccines Aged Out No longer eligi ble based on patient's age to complete this topic IPV Vaccines Aged Out No longer eligi ble based on patient's age to complete this topic Meningococcal B Vaccine Aged Out No l onger eligible based on patient's age to complete this topic Meningococcal Vaccine Aged Out No andrés shorty eligible based on patient's age to complete this topic Pneumococcal Vaccine: Pediat rics (0 to 5 Years) and At-Risk Patients (6 to 64 Years) Aged Out No longer eligible b ased on patient's age to complete this topic Rotavirus Vaccines Aged Out No longer eligible based on patient's age to complete this topic Insurance [facility] Care Teams Psychology Lecturer Relationship Specialty Start Date End Date Delmer Bryan MD [address] [facility] [place] [address] PCP - General 05/14/22
--- OUTSIDE RECORDS SUMMARY | 2025-03-17 08:55 | XMS_ITS | Encounter Summary ---
Author Organization [facility] Address [address] [place] [address] Care Team Providers Care Bleach Chlorinator Name Role Phone Shaikh MITZI De La Paz Primary Care Provider [phone] Anastacio Hinojosa MD Primary Care Provider [phone] Pepper Sexton NP Unavailable [phone] Pepper Sexton NP Unavailable [phone] Reason for Visit * Reason Comments Med Refill Encounter Details Date Type Department Care Team (Late st Contact Info) Description 11/12/2023 Refill [facility] [address] [place] [address] Pepper Sexton NP [address] [place] [address] Restless legs syndrome Social History Tobacco Use Types Packs/Day Years Used Date Smoking Tobacco: Never Alcohol Use Standard Drinks/Week Comments Yes 0 (1 standard drink = 0.6 oz pur e alcohol) 2-3 times a week Sex and Gender Information Value Date Recorded Sex Assigned at Not on file Legal Sex Male 11:33 PM EDT Gender Identity Not on file Sexual Orientation Not on file documented as of this encounter Miscellaneous Notes * Telephone Encounter - Pepper Sexton NP - 11/12/2023 6:11 PM EST Needs fu appt please [place] documented in this encounter Plan of Treatment Upcoming Encounters Date Type Department Care Team (Late st Contact Info) Description 04/07/2025 8:20 AM EDT Office Visit [facility] [address] [place] [address] Pepper Sexton NP [address] [place] [address] documented as of this encounter Visit Diagnoses Diagnosis Restless legs syndrome Restless legs syndrome (RLS) documented in this encounter Care Teams Bleach Chlorinator Relationship Specialty Start Date End Date Shaikh De La Paz MD PCP - General Internal Medicine 04/04/23 11/25/23 Anastacio Hinojosa MD [address] [place] [address] PCP - General Family Medicine 11/26/23 Pepper Sexton NP [address] [place] [address] PCP - [place] [employer] 04/23/24 Pepper Sexton NP [address] [place] [address] Nurse Practitioner Family Medicine 11/26/23 documented as of this encounter
--- OUTSIDE RECORDS SUMMARY | 2025-03-17 08:55 | XMS_ITS | Encounter Summary ---
Author Organization [facility] Address [address] [place] [address] Care Team Providers Care Adhesive Primer Name Role Phone Anastacio Hinojosa MD Primary Care Provider [phone] Pepper Sexton STATEMENT PROCESSOR Unavailable [phone] Pepper Sexton STATEMENT PROCESSOR Unavailable [phone] Encounter Details Date Type Department Care Team (Late st Contact Info) Description 06/09/2024 Orders Only [facility] [address] [place] [address] Pepper Sexton NP [address] [place] [address] Hypothyroidism, unspecified type (Primary Dx); Pre-diabetes Social History Tobacco Use Types Packs/Day Years [...] How often do you attend chur or faith services? Never 11/25/2023 Do you belong to any clubs o r organizations such as jehovah's witness groups, unions, fraternal or athletic groups, or [...] Recorded Patient Health Questionnaire-2 Score 0 11/26/2023 [facility] - [facility] Stress Questionnaire Answer Date Recorded [...] place to sleep or slept in a snf (including now)? No 11/25/2023 Sex and Gender Information Value Date Recorded Sex Assigned at Not on file Legal Sex Male 11:33 PM EDT Gender Identity Not on file Sexual Orientation Not on file documented as of this encounter Plan of Treatment Upcoming Encounters Date Type Department Care Team (Late st Contact Info) Description 04/07/2025 8:20 AM EDT Office Visit [facility] [address] [place] [address] Pepper Sexton NP [address] [place] [address] documented as of this encounter Visit Diagnoses Diagnosis Hypothyroidism, unspecified type- Primary Pre-diabetes Other abnormal glucose documented in this encounter Care Teams Adhesive Primer Relationship Specialty Start Date End Date Anastacio Hinojosa MD [address] [place] [address] PCP - General Family Medicine 11/26/23 Pepper Sexton NP [address] [place] [address] PCP - [place] [employer] 04/23/24 Pepper Sexton NP [address] [place] [address] Nurse Practitioner Family Medicine 11/26/23 documented as of this encounter
--- OUTSIDE RECORDS SUMMARY | 2025-03-17 08:55 | XMS_ITS | Encounter Summary ---
Author Organization [facility] Address [address] [place] [address] Care Team Providers Care Switch Coupler Name Role Phone Anastacio Hinojosa MD Primary Care Provider [phone] Pepper Sexton CYCLE LIAISON Unavailable [phone] Pepper Sexton CYCLE LIAISON Unavailable [phone] Encounter Details Date Type Department Care Team (Late st Contact Info) Description 03/02/2024 Orders Only [facility] [address] [place] [address] Pepper Sexton NP [address] [place] [address] Social History Tobacco Use Types Packs/Day Years Used Date Smoking Tobacco: Never Smokeless Tobacco: Never Alcohol Use Standard Drinks/Week [...] 11/25/2023 How often do you attend chur ch or gnosticist services? Never 11/25/2023 Do you belong to any clubs o r organizations such as synagogue groups, unions, fraternal or athletic groups, or [...] Recorded Patient Health Questionnaire-2 Score 0 11/26/2023 [facility] of Occupat ional Health - Occupational Stress [...] place to sleep or slept in a assisted (including now)? No 11/25/2023 Sex and Gender [...] Office Visit [facility] [address] [place] [address] Pepper Sexton NP [address] [place] [address] documented as of this encounter Procedures Procedure Name Priority Date/Time Associated Diagnosis Comments ELECTROCARDIOGRAM REPORT Routine 024 8:16 AM EDT documented in this encounter Results * Electrocardiogram Report (02/27/2024 8:16 AM EDT) us Pepper Sexton NP IN CLINIC/BEDSIDE ORDERABLES Fi nal Result documented in this encounter Visit Diagnoses Not on filedocumented in this encounter Care Teams Switch Coupler Relationship Specialty Start Date End Date Anastacio Hinojosa MD [address] [place] [address] PCP - General Family Medicine 11/26/23 Pepper Sexton NP [address] [place] [address] PCP - [place] [employer] 04/23/24 Pepper Sexton NP [address] [place] [address] Nurse Practitioner Family Medicine 11/26/23 documented as of this encounter
--- OUTSIDE RECORDS SUMMARY | 2025-03-17 08:55 | XMS_ITS | Encounter Summary ---
Author Organization [facility] Address [id number] [address] [place] [address] Care Team Providers Care Press Reader Name Role Phone JavierPepper rios Liam HENRY-BOARD CERTIFIED ORTHODONTIST Primary Care Provider Encounter Details Date Type Department Care Team (Late st Contact Info) Description 05/10/2022 Orders Only [facility] [address] [place] [address] External, Scanning Provider Social History Tobacco Use Types Packs/Day Years Used Date Smoking Tobacco: Never Smokeless Tobacco: Never Alcohol Use Standard Drinks/Week Comments Yes 4 (1 standard drink = 0.6 oz pur e alcohol) Childcare Answer Date Recorded Childcare Unknown 03/04/2019 Employment Answer Date Recorded Employment Unknown 03/04/2019 Sex and Gender Information Value Date Recorded Sex Assigned at Not on file Legal Sex Male 11:51 AM EDT Gender Identity Not on file Sexual Orientation Not on file COVID-19 Exposure Response Date Recorded In the last month, have you been in contact with someone who was confirmed or suspected to have Coronavirus / COVID-19? No / Unsure 05/10/2022 10:06 AM EDT documented as of this encounter Plan of Treatment Upcoming Encounters Date Type Department Care Team (Late st Contact Info) Description 04/01/2025 10:00 AM EDT Office Visit [facility] [address] [place] [address] Robert Kumar MD [address] [place] [address] documented as of this encounter Procedures Procedure Name Priority Date/Time Associated Diagnosis Comments ECHO COMPLETE WO CONTRAST Routine 02/27/2022 documented in this encounter Results * Echo complete W/O contrast (02/27/2022) Anatomical Region Laterality Modality Chest N/A Ultrasound us Scanning Provider External CV ECHO ORDERABLES Fi nal Result documented in this encounter Visit Diagnoses Not on filedocumented in this encounter Care Teams Press Reader Relationship Specialty Start Date End Date Pepper Sexton, HOG RIBBER-BOARD CERTIFIED ORTHODONTIST PCP - General Nurse Practitioner 05/10/22 documented as of this encounter
--- OUTSIDE RECORDS SUMMARY | 2025-03-17 08:55 | XMS_ITS | Encounter Summary ---
Author Organization [facility] Address [address] [place] [address] Care Team Providers Care Converting Supervisor Name Role Phone Anastacio Hinojosa MD Primary Care Provider [phone] Pepper eSxton COORDINATE MEASURING EQUIPMENT OPERATOR Unavailable [phone] Pepper Sexton COORDINATE MEASURING EQUIPMENT OPERATOR Unavailable [phone] Encounter Details Date Type Department Care Team (Late st Contact Info) Description 10/06/2024 Orders Only [facility] [address] [place] [address] James Elaine MD [address] [facility] [address] [place] [address] Social History Tobacco Use Types Packs/Day Years [...] often do you attend chur ch or evangelical services? Never 11/25/2023 Do you belong to any clubs o r organizations such as christian groups, unions, fraternal or athletic groups, or [...] Recorded Patient Health Questionnaire-2 Score 0 11/26/2023 [facility] of Occupat ional Health - Occupational [...] Office Visit [facility] [address] [place] [address] Pepper Sexton NP [address] [place] [address] documented as of this encounter Procedures Procedure Name Priority Date/Time Associated Diagnosis Comments SCANNED LABS Routine 10/06/2024 10:55 AM EST documented in this encounter Results * SCANNED LABS (10/06/2024 10:55 AM EST) James Elaine MD LAB CHG PERFORMABLES Final Resul t documented in this encounter Visit Diagnoses Not on filedocumented in this encounter Care Teams Converting Supervisor Relationship Specialty Start Date End Date Anastacio Hinojosa MD [address] [place] [address] PCP - General Family Medicine 11/26/23 Pepper Sexton NP [address] [place] [address] PCP - [place] [employer] 04/23/24 Pepper Sexton NP [address] [place] [address] Nurse Practitioner Family Medicine 11/26/23 documented as of this encounter
--- OUTSIDE RECORDS SUMMARY | 2025-03-17 08:55 | XMS_ITS | Clinical Summary ---
Author Organization [facility] Healthcare Address [address] [place] [address] Care Team Providers Care Product Mgmt Dev Manager Name Role Phone Anastacio Hinojosa MD Primary Care Provider [phone] Pepper Sexton NP Unavailable [phone] Allergies No known active allergies Medications albuterol HFA (Ventolin HFA) 90 mcg/act inhalerIndicat ions:Chronic Obstructive Pulmonary Disease Inhale 2 puffs every 6 (six) hours if needed for wheezing or shortness of breath 18 g 1 03/06/20 24 Active pravastatin (Pravachol) 20 MG tablet Take 1 tablet by mouth Daily Active spironolactone (Aldactone) 50 MG tablet Take 50 mg by mouth Daily Active Magnesium Glycinate 100 MG capsule Take 100 mg by mouth in the morning and 100 mg in the evening and 100 mg before bedtime. 12/08/19 25 Active doxepin (SINEquan) 10 MG/ML solutionIndica tions:Fibromya lgia Take 10 mL (100 mg) by mouth at bedtime 900 mL 1 01/07/20 25 025 Active Eliquis 5 MG tablet TAKE 2 TABLETS BY MOUTH TWICE DAILY FOR 4 DAYS and then TAKE 1 TABLET BY MOUTH TWICE DAILY thereafter 02/13/20 25 Active cefdinir (Omnicef) 300 MG capsule Take 600 mg by mouth Daily 02/13/20 25 Active levoFLOXacin (Levaquin) 750 MG tablet TAKE 1 TABLET BY MOUTH ONCE DAILY x14 02/13/20 25 Active budesonide-for moterol (Symbicort) 160-4.5 MCG/ACT inhalerIndicat ions:Chronic bronchitis, unspecified chronic bronchitis type (HCC) Inhale 2 puffs in the morning and 2 puffs before bedtime. Rinse mouth with water after use to reduce aftertaste and incidence of candidiasis. Do not swallow. 10.2 g 5 03/08/20 025 Active gabapentin (Neurontin) 600 MG tabletIndicati ons:Restless legs syndrome Take 1 tablet (600 mg) by mouth in the morning and 1 tablet (600 mg) before bedtime. 180 tablet 03/08/20 025 Active valsartan (Diovan) 320 MG tabletIndicati ons:Essential hypertension, benign Take 1 tablet (320 mg) by mouth Daily 90 tablet 03/08/20 025 Active levothyroxine (Synthroid, Levoxyl) 112 MCG tabletIndicati ons:Hypothyroi dism, unspecified type Take 1 tablet (112 mcg) by mouth in the morning. Take before meals. 90 tablet 03/16/20 025 Active omeprazole (PriLOSEC) [address] capsuleIndicat ions:Gastroeso phageal reflux disease, unspecified whether esophagitis present Take 1 capsule (40 mg) by mouth in the morning. Take before meals. Do not crush or chew. 90 capsule 03/16/20 025 Active amLODIPine (Norvasc) 10 MG tabletIndicati ons:Essential hypertension, benign Take 1 tablet (10 mg) by mouth Daily 90 tablet 1 03/16/20 025 Active nebivolol (Bystolic) 10 MG tabletIndicati ons:Essential hypertension, benign Take 1 tablet (10 mg) by mouth Daily 90 tablet 1 03/16/20 025 Active montelukast (Singulair) 10 MG tabletIndicati ons:Atopic dermatitis, unspecified type Take 1 tablet (10 mg) by mouth at bedtime 90 tablet 1 03/16/20 025 Active montelukast (Singulair) 10 MG tabletIndicati ons:Atopic dermatitis, unspecified type Take 1 tablet (10 mg) by mouth at bedtime 90 tablet 1 09/06/20 025 Discontinued(Re order) budesonide-for moterol (Symbicort) 160-4.5 MCG/ACT inhalerIndicat ions:Chronic bronchitis, unspecified chronic bronchitis type (HCC) Inhale 2 puffs in the morning and 2 puffs before bedtime. Rinse mouth with water after use to reduce aftertaste and incidence of candidiasis. Do not swallow.. 10.2 g 5 10/07/19 025 Discontinued(Re order) valsartan (Diovan) 320 MG tabletIndicati ons:Essential hypertension, benign Take 1 tablet (320 mg) by mouth Daily 90 tablet 1 10/07/19 025 Discontinued(Re order) gabapentin (Neurontin) 600 MG tabletIndicati ons:Restless legs syndrome Take 1 tablet (600 mg) by mouth in the morning and 1 tablet (600 mg) before bedtime. 180 tablet 1 11/04/19 025 Discontinued(Re order) amLODIPine (Norvasc) 10 MG tabletIndicati ons:Essential hypertension, benign Take 1 tablet (10 mg) by mouth Daily 90 tablet 12/15/19 025 Discontinued nebivolol (Bystolic) 10 MG tabletIndicati ons:Essential hypertension, benign Take 1 tablet (10 mg) by mouth Daily 90 tablet 12/15/19 25 025 Discontinued omeprazole (PriLOSEC) [address] capsuleIndicat ions:Gastroeso phageal reflux disease, unspecified whether esophagitis present Take 1 capsule (40 mg) by mouth in the morning. Take before meals. Do not crush or chew.. 90 capsule 12/15/19 025 Discontinued levothyroxine (Synthroid, Levoxyl) 112 MCG tabletIndicati ons:Hypothyroi dism, unspecified type Take 1 tablet (112 mcg) by mouth in the morning. Take before meals. 90 tablet 12/15/19 025 Discontinued montelukast (Singulair) 10 MG tabletIndicati ons:Atopic dermatitis, unspecified type Take 1 tablet (10 mg) by mouth at bedtime 90 tablet 1 03/08/20 25 025 Discontinued Active Problems Problem Noted Date Diagnosed Date Cellulitis of left lower extremity 02/17/2025 Assessment & Plan (03/08/2025 8:56 AM EDT): Finished off meds Vascular consult was inadvertantly missed at last appt Placed today Would like to RTW as of 03/09/25, I have advised I would like him to wear hernando wrap to LLE to help with swelling Fu in 4 weeks Assessment & Plan (02/17/2025 7:28 PM EDT): Finish atb's Off work until re assessed Elevate foot MARITZA (acute kidney injury) 02/17/2025 Assessment & Plan (02/17/2025 7:28 PM EDT): Returning to baseline Chronic kidney disease, stage 3a 01/06/2025 Assessment & Plan (02/17/2025 7:26 PM EDT): Sees nephrology Assessment & Plan (01/06/2025 6:12 AM EDT): Sees nephrology Morbid (severe) obesity due to excess calories 0 10/07/2024 Assessment & Plan (03/08/2025 6:18 AM EDT): Discussed with patient their BMI (actual, verses recommended). We have also discussed lifestyle modifications: attempts to perform physical activity as chronic conditions allow, also to monitor dietary intake: increasing protein/fruits/veggies and lowering carb intake (unless contraindicated). Limit sodas, juices, and sugary drinks. Would recommend looking into weight watchers program Assessment & Plan (02/17/2025 7:26 PM EDT): Discussed with patient their BMI (actual, verses recommended). We have also discussed lifestyle modifications: attempts to perform physical activity as chronic conditions allow, also to monitor dietary intake: increasing protein/fruits/veggies and lowering carb intake (unless contraindicated). Limit sodas, juices, and sugary drinks. Would recommend looking into weight watchers program Assessment & Plan (01/06/2025 6:13 AM EDT): Discussed with patient their BMI (actual, verses recommended). We have also discussed lifestyle modifications: attempts to perform physical activity as chronic conditions allow, also to monitor dietary intake: increasing protein/fruits/veggies and lowering carb intake (unless contraindicated). Limit sodas, juices, and sugary drinks. Would recommend looking into weight watchers program Assessment & Plan (10/07/2024 9:39 AM EST): Discussed with patient their BMI (actual, verses recommended). We have also discussed lifestyle modifications: attempts to perform physical activity as chronic conditions allow, also to monitor dietary intake: increasing protein/fruits/veggies and lowering carb intake (unless contraindicated). Limit sodas, juices, and sugary drinks. Has gained 30 pounds since 07/16 Recommend weight watchers Gastro-esophageal reflux disease without esophag itis 10/07/2024 Assessment & Plan (01/06/2025 6:12 AM EDT): Recommendations: freq small meals, nothing to eat or drink at least 2 hours prior to bed, limit caffeine, alcohol, as well as spicy foods Meds to limit or avoid if possible: NSAIDS Elevate HOB if possible Most recent EGD: 09/2024 Current meds: omeprazole Does continue to have hypomagnesium levels, cannot tolerate off of PPI therapy Assessment & Plan (10/07/2024 5:42 AM EST): Recommendations: freq small meals, nothing to eat [...] index (BMI) 37.0-37.9, adult COPD mixed type 10/07/2024 Assessment & Plan (10/07/2024 9:39 AM EST): Current meds: albuterol prn and symbicort Sporadic use of symbicort, recommend regular use Acute gastric ulcer without hemorrhage or perfor ation 07/09/2024 Overview (07/09/2024): EGD 07/09/24 Dyspepsia 07/06/2024 Needs flu shot 07/06/2024 Assessment & Plan (07/06/2024 10:30 AM EDT): declines COPD with acute exacerbation 05/04/2024 Assessment & Plan (05/04/2024 11:10 AM EDT): Add steroids and atb Fu if not better Pre-diabetes 04/09/2024 Assessment & Plan (10/07/2024 9:17 AM EST): Will check A1c test: recent lab had elevated glucose A1c 5.6%, 10/07/24 Carpal tunnel syndrome on both sides 12/29/2023 Hypersomnia 12/29/2023 Overview (02/02/2024): HST not available at time of appointment for review. Patient likely has underlying GURVINDER given morning headaches, prone to dozing off, and body habitus. HST 04/19/21 revealed AHI of 37. He has not had titration due to cost of study. GURVINDER (obstructive sleep apnea) 12/29/2023 Assessment & Plan (10/07/2024 9:38 AM EST): You have a diagnosis of obstructive sleep apnea. It is recommended that you wear your PAP device any time while in bed sleeping. Not using the PAP device can increase your risk of elevated/uncontrolled high blood pressure, atrial fibrillation, heart attack, stroke, or sudden . Compliance: not complaint Hours used:NA Overall improvement in daily function:NA Assessment & Plan (05/04/2024 11:09 AM EDT): Has dx, however does not wear PAP Pinched nerve 11/26/2023 Paresthesia of both hands 11/26/2023 Cervical radiculopathy 11/26/2023 Cough in adult 11/26/2023 Venous reflux 11/26/2023 Left leg swelling 11/26/2023 Assessment & Plan (03/08/2025 8:56 AM EDT): As per cellulitis entry Degenerative disc disease, cervical 11/26/2023 Overview (02/02/2024): Patient with chronic neck pain bilaterally. He follows with a chiropractor and per chart review has degenerative changes in his cervical spine. He states it has been over 5 years or more since he has had an MRI and now cannot have MRI due to metal dottie in his left leg. He has trialed and failed nabumetone, zanaflex, baclofen, and flexeril. He continues with mobic and gabapentin. He feels his symptoms have not improved despite medication therapy, but they have been slightly more manageable. EMG BUE 12/2019 revealed bilateral C5/[address] C spine 05/17/21 revealed multilevel spondylosis most severe at levels C5-C6 and C6-C7 with probable mild canal stenosis. He denies increase of neck pain. 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 Atopic dermatitis 11/26/2023 Psoriasis 11/26/2023 Orthopedic hardware present 11/26/2023 Marijuana use 11/26/2023 Assessment & Plan (01/06/2025 6:14 AM EDT): Gummies and smoking Assessment & Plan (10/07/2024 9:40 AM EST): Gummies and smoking Screening for prostate cancer 11/26/2023 Overview (10/07/2024): PSA: 03/16 1.26 Assessment & Plan (01/06/2025 6:14 AM EDT): Check labs in 03/17 Abnormal stress test 08/19/2023 Arthritis 08/19/2023 Fibromyalgia 08/19/2023 Essential hypertension, benign 08/19/2023 Assessment & Plan (03/08/2025 8:55 AM EDT): Please check blood pressure daily and record DASH diet Limit caffeine Take medication as directed Contact office if chest pain, pressure, dizziness, shortness of breath, swelling legs Recommend slow position changes Current meds: amlodipine, bystolic, valsartan Blood pressure is elevated today, however took meds about 45 mins ago Assessment & Plan (02/17/2025 7:26 PM EDT): Please check blood pressure daily and record DASH diet Limit caffeine Take medication as directed Contact office if chest pain, pressure, dizziness, shortness of breath, swelling legs Recommend slow position changes Current meds: amlodipine, bystolic, valsartan Assessment & Plan (01/06/2025 6:12 AM EDT): Please check blood pressure daily and record DASH diet Limit caffeine Take medication as directed Contact office if chest pain, pressure, dizziness, shortness of breath, swelling legs Recommend slow position changes Current meds: amlodipine, bystolic, valsartan Assessment & Plan (10/07/2024 5:41 AM EST): Please check blood pressure daily and record DASH diet Limit caffeine Take medication as directed Contact office if chest pain, pressure, dizziness, shortness of breath, swelling legs Recommend slow position changes Current meds: amlodipine, bystolic, valsartan Assessment & Plan (07/06/2024 10:27 AM EDT): At goal no med dose chagnes Assessment & Plan (05/04/2024 12:52 PM EDT): Stable at this time no med dose changes Had stres test in 04/04/22: and ECHO in 02/12 mild pulmonary HTN Assessment & Plan (03/11/2024 10:44 AM EDT): Only took meds about 30 minutes prior to coming to appt No changes in med dose at this time Fu in 6 weeks Assessment & Plan (02/26/2024 11:47 AM EDT): No changes in medication doses Reviewed labs Assessment & Plan (11/26/2023 10:06 AM EST): No changes in med dose Fu in 3 months, check labs Hypothyroidism 08/19/2023 Assessment & Plan (01/06/2025 6:15 AM EDT): Current med: levothyroxine Check labs yearly and prn dose changes or symptomatic Has had 30 pound weight gain Assessment & Plan (10/07/2024 9:39 AM EST): Current med: levothyroxine Check labs yearly and prn dose changes or symptomatic Has had 30 pound weight gain Assessment & Plan (07/06/2024 10:28 AM EDT): No med dose changes Assessment & Plan (02/26/2024 11:47 AM EDT): Will increase dose on levothyroixine to 112mcg Check labs in 2 months Assessment & Plan (11/26/2023 10:06 AM EST): Cont meds, check labs Restless legs 08/19/2023 Nicotine dependence 08/19/2023 Assessment & Plan (02/17/2025 7:27 PM EDT): The patient has been advised of the risks of continued smoking: stroke, DE, all forms of cancer, lung disease, and . Options for quitting smoking include: cold turkey, hypnosis, acupuncture, nicotine replacement meds (gum, lozenges, and patches), Buproprion, and Varenicline. At this time pt is encouraged to evaluate their goals for wanting to quit smoking, and reach out to provider when ready to start this process Hyperglycemia 08/19/2023 Hypomagnesemia 08/19/2023 Assessment & Plan (02/17/2025 7:26 PM EDT): Since last visit changed magnesium to magnesium glycinate per nephrology They are managing this now Assessment & Plan (01/06/2025 6:13 AM EDT): Since last visit changed magnesium to magnesium glycinate per nephrology They are managing this now Assessment & Plan (10/07/2024 5:44 AM EST): Currently taking magnesium supplement of 500mg TID Will check labs Assessment & Plan (09/28/2024 6:10 PM EST): Pt has been taking magnesium oxide 400mg TID for several months for low magnesium is also under the care of Nephrology for the same. Critical value [...] days , but has been taking again for approx 1 week. I told him I would increase magnesium oxide to 500mg TID, and reach out to Nephrology as well to see if they have any other suggestions regarding this matter. Assessment & Plan (09/28/2024 6:03 PM EST): Pt has been taking magnesium oxide 400mg TID for several months for low magnesium is also under the care of Nephrology for the same. Critical value [...] days , but has been taking again for approx 1 week. I told him I would increase magnesium oxide to 500mg TID, and reach out to Nephrology as well to see if they have any other suggestions regarding this matter. Assessment & Plan (07/06/2024 10:28 AM EDT): Continue with TID magnesium and fu with Nephrology Assessment & Plan (04/09/2024 10:10 AM EDT): Cont supplements at TID and check lab around 04/20/24 Keep fu with Nephro as well Fu here in 3 months Assessment & Plan (03/11/2024 10:45 AM EDT): Does report feeling better with out muscle cramps Is now on BID magnesium Will have him check labs 03/16/24, if still abnormal, will refer to nephrology Assessment & Plan (02/26/2024 11:49 AM EDT): Critical low on path labs at 0.5, despite OTC magnesium at 500mg BID STAT draw today to see if this was inaccurate No acute muscle/neuro findings on today's exam Hyperlipidemia 07/18/2023 Assessment & Plan (01/06/2025 6:13 AM EDT): On statin therapy Labs yearly and prn dose changes Assessment & Plan (10/07/2024 5:44 AM EST): On statin therapy Labs yearly and prn dose changes Assessment & Plan (02/26/2024 11:48 AM EDT): Attempt to cut down on portion sizes, carbs, no meds at this time Pulmonary hypertension 08/02/2022 Assessment & Plan (10/07/2024 5:42 AM EST): Per ECHO 02/12 Does not use PAP Current meds: aldactone, amlodipine, valsartan and bystolic Assessment & Plan (05/04/2024 12:52 PM EDT): Per ECHO 02/12 Does not use PAP Assessment & Plan (11/26/2023 10:06 AM EST): As per ECHO findings Stable at this time LV dysfunction 05/10/2022 Assessment & Plan (05/04/2024 12:50 PM EDT): As per cardiology Resolved Problems Problem Noted Date Diagnosed Date Resolved Date Needs flu shot 07/06/2024 07/06/2024 Pre-operative clearance 05/04/2024 04/1 02/2025 Assessment & Plan (05/26/2024 7:27 AM EDT): Hx of HTN: well controlled Low magnesium: still taking TID, trying to avoid use of PPI, but difficult GURVINDER: non compliant with PAP use ECHO 11/15 EKG: reviewed CR 1.60 w Gfr 50 Magnesium: 1.4 on 04/20/24. Cleared for surgery from cardiac/medical standpoint Simple chronic bronchitis 03/06/2024 Assessment & Plan (05/04/2024 11:10 AM EDT): Will increase dose on ICS/LABA to symbicort at 160/4.5 BID Stop the 80/4.5 Fu in 6 weeks for recheck Recently quit smoking great work!!! Obesity (BMI 30-39.9) 02/26/20242024 Paresthesia 02/02/2024 07/06/2024 Overview (02/02/2024): Patient notes that he has developed increase in right hand pain mainly to 4th and 5th digit that has worsened over the past 2 years. He states this is sharp and travels from his elbow to his 5th digit. His 5th digit is numb at times and his waiver analyst is weak as well likely consistent with ulnar nerve process. 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 Carpal tunnel syndrome 02/02/202407/06 Overview (02/02/2024): Patient has ongoing numbness and tingling to bilateral hands, sometimes worse on the left. He has worn wrist splints in the past but no longer uses these. He has not trialed injections. EMG of the BUE 12/2019 revealed bilateral median neuropathy. He is noting some increase pain to his hands with even performing hand washing. He is interested in surgery. Dyspnea 08/19/2023 07/06/2024 GERD (gastroesophageal reflux disease) 08/19/2023 10/07/2024 Assessment & Plan (07/06/2024 10:28 AM EDT): Has upcoming scope with GI, has been off his PPI/[id number] for up coming EGD etc Continue with GI Assessment & Plan (05/04/2024 12:01 PM EDT): Did well on senior care PPI, however severe hypomagnesiumemia Would like to increase dose on pepcid we will do 40mg am, and 20mg pm Refer to GI for evaluation Assessment & Plan (04/09/2024 10:10 AM EDT): Since stopping his PPI (d/t low magesium) his GERD is worse Is doing pepcid as well as ant acids Assessment & Plan (03/11/2024 10:44 AM EDT): Continue PPI, ?? Causing low mag, has been on this quite some time and had normal magnesium levels Assessment & Plan (02/26/2024 11:47 AM EDT): Continue PPI, however may need to stop if magnesium is low Encounters Date Type Department Care Team Description 03/16/2025 Refill [facility] [address] [place] [id number] Pepper Sexton NP Atopic dermatitis, unspecified type 03/16/2025 Refill [facility] [address] [place] [id number] Pepper Sexton NP Hypothyroidism, unspecified type ; Gastroesophageal reflux disease, unspecified whether esophagitis present; Essential hypertension, benign 03/15/2025 Telephone [facility] [address] [place] [address] Pepper Sexton NP 03/08/2025 8:20 AM EDT Office Visit [facility] [address] [place] [id number] Pepper Sexton NP Cellulitis of left lower extremity (Primary Dx); Essential hypertension, benign ; Left leg swelling; Morbid (severe) obesity due to excess calories ([facility]-H[facility]); Chronic bronchitis, unspecified chronic bronchitis type ([facility]); Restless legs syndrome; Atopic dermatitis, unspecified type 03/08/2025 Abstract [facility] [address] [place] [address] Pepper Sexton NP 03/08/2025 Bamboo flowsheet [facility] [address] [place] [address] Pepper Sexton NP 02/17/2025 4:15 PM EDT Office Visit [facility] [address] [place] [address] Pepper Sexton, REMBERTO Cellulitis of left lower extremity (Primary Dx); Essential hypertension, benign ; Morbid (severe) obesity due to excess calories (CMS-HCC); Hypomagnesemia; Cigarette nicotine dependence without complication; MARITZA (acute kidney injury); Left leg swelling 02/17/2025 Patient Outreach [facility] [address] [place] [address] Xiomara Garcia MA 02/10/2025 Orders Only [facility] [address] [place] [address] Angelo Morales MD 02/08/2025 Orders Only [facility] [address] [place] [address] Angelo Morales MD 02/07/2025 Clinisync Result Encounter [facility] External Department Unsolicited Provider, Generic External Data 01/06/2025 9:00 AM EDT Office Visit [facility] [address] [place] [address] Pepper Sexton, REMBERTO Essential hypertension, benign (Primary Dx); Chronic kidney disease, stage 3a (CMS-HCC); Gastro-esophageal reflux disease without esophagitis; Morbid (severe) obesity due to excess calories (CMS-HCC); Mixed hyperlipidemia ; Hypomagnesemia; Screening for prostate cancer; Marijuana use; Hypothyroidism, unspecified type ; Fibromyalgia 01/06/2025 Bamboo flowsheet [facility] [address] [place] [address] Pepper Sexton NP from Last 3 Months Family History Medical History Relation Name Comments Hypertension Father Relation Name Status Comments Father Mother Alive Social History Tobacco Use Types Packs/Day Years Used Date Smoking Tobacco: Former Cigars Smokeless Tobacco: Never Tobacco Cessation:Counseling Given: Not Answered Alcohol Use Standard Drinks/Week Comments Yes 0 [...] often do you attend chur ch or rastafari services? Never 11/25/2023 Do you belong to any clubs o r organizations such as muslim groups, unions, fraternal or athletic groups, or [...] Recorded Patient Health Questionnaire-2 Score 0 11/26/2023 [facility] [place] [facility] - Occupational Stress [...] place to sleep or slept in a chcf (including now)? No 11/25/2023 Sex and Gender [...] 3.2 oz) 03/08/2025 8:26 AM EDT Height 175.3 cm (5' 9 ) 01/06/2025 9:06 AM EDT Body Mass Index 38.28 01/06/2025 9:06 AM EDT Plan of Treatment Upcoming Encounters Date Type Department Care Team (Late st Contact Info) Description 04/07/2025 8:20 AM EDT Office Visit [facility] [address] [place] [address] Pepper Sexton NP [address] [place] [address] Health Maintenance Due Date Last Done Comments CT Colonography 1967 Colonoscopy 1967 FIT 1967 FOBT 1965 Sigmoidoscopy 1967 Colorectal Cancer Screening 08/11/2025 FIT-DNA 08/11/2025 08/11/2022 Influenza Vaccine Discontinued Procedures Procedure Name Priority Date/Time Associated Diagnosis Comments US EXTREMITY NONVASCULAR LIMITED Routine 02/10/2025 11:[address] LOWER EXTREMITY LEFT W AND WO IV CONTRAST Routine 02/10/2025 9:47 AM EDT US, RETROPERITNL ABD, LTD Routine 02/08/2025 12:06 PM EDT BLOOD CULTURE 2 Routine 02/07/2025 12:45 PM EDT BLOOD CULTURE 1 Routine 02/07/2025 12:02 PM EDT from Last 3 Months Results * US EXTREMITY NONVASCULAR LIMITED (02/10/2025 11:31 AM EDT) Anatomical Region Laterality Modality Radiographic Divya ging us Angelo Morales MD IMG XR PROCEDURES Final Result * CT lower extremity left w and wo IV contrast (02/10/2025 9:47 AM EDT) Anatomical Region Laterality Modality Lower Extremities Left Computed Tomog mango us Angelo Morales MD IMG CT PROCEDURES Final Result * Retroperitoneal Ultrasound, Abdomen Ltd (02/08/2025 12:06 PM EDT) us Angelo Morales MD IN CLINIC/BEDSIDE ORDERABLES Fi nal Result * BLOOD CULTURE 2 (02/07/2025 12:45 PM EDT) BLOOD CULTURE 2 Blood Culture 2 NG5D NO GROWTH AT 5 DAYS.^NO GROWTH AT 5 DAYS. TBH 02/07/2025 12:4 5 PM EDT 02/07/2025 12:47 PM EDT Narrative CLINISYNC - 02/12/2025 2:11 PM EDT RIGHT AC Generic External Data Provider LAB BLOOD ORDERAB LES Final Result [facility] TB * BLOOD CULTURE 1 (02/07/2025 12:02 PM EDT) BLOOD CULTURE 1 Blood Culture 1 NG5D NO GROWTH AT 5 DAYS.^NO GROWTH AT 5 DAYS. TB 02/07/2025 12:0 2 PM EDT 02/07/2025 12:38 PM EDT Narrative CLINISYSC - 02/12/2025 2:11 PM EDT LEFT FOREARM Generic External Data Provider LAB BLOOD ORDERAB LES Final Result Performing Organization Address City/[facility]/ZIP Co de Phone Number [facility] from Last [address] [place] [address] [place] [address] Care Teams Product Mgmt Dev Manager Relationship Specialty Start Date End Date Anastacio Hinojosa MD [address] [place] [address] PCP - General Family Medicine 11/26/23 Pepper Sexton [place] [address] Nurse Practitioner Family Medicine 11/26/23
--- OUTSIDE RECORDS SUMMARY | 2025-03-17 08:55 | XMS_ITS | Encounter Summary ---
Author Organization [facility] Address [address] [place] [address] Care Team Providers Care Blanking Machine Operator Name Role Phone Anastacio Hinojosa MD Primary Care Provider [phone] Pepper Sexton SAP BI DEVELOPER Unavailable [phone] Pepper Sexton SAP BI DEVELOPER Unavailable [phone] Encounter Details Date Type Department Care Team (Late st Contact Info) Description 11/26/2024 Abstract [facility] [address] [place] [address] Pepper Sexton NP [address] [place] [address] Social History Tobacco Use Types Packs/Day Years [...] often do you attend chur ch or muslim services? Never 11/25/2023 Do you belong to any clubs o r organizations such as druze groups, unions, fraternal or athletic groups, or [...] Recorded Patient Health Questionnaire-2 Score 0 11/26/2023 [facility] - Occupational [...] place to sleep or slept in a half-way (including now)? No 11/25/2023 Sex and Gender [...] Office Visit [facility] [address] [place] [address] Pepper Sexton NP [address] [place] [address] documented as of this encounter Visit Diagnoses Not on filedocumented in this encounter Care Teams Blanking Machine Operator Relationship Specialty Start Date End Date Anastacio Hinojosa MD [address] [place] [address] PCP - General Family Medicine 11/26/23 Pepper Sexton NP [address] [place] [address] PCP - [place] [employer] 04/23/24 Pepper Sexton NP [address] [place] [address] Nurse Practitioner Family Medicine 11/26/23 documented as of this encounter
--- OUTSIDE RECORDS SUMMARY | 2025-03-17 08:55 | XMS_ITS | Encounter Summary ---
Author Organization [facility] Address [address] [facility] [place] [address] Care Team Providers Care Coal Yard Supervisor Name Role Phone Anastacio Hinojosa MD Primary Care Provider [phone] Pepper Sexton LUNCHROOM SUPERVISOR Unavailable [phone] Encounter Details Date Type Department Care Team (Late st Contact Info) Description 03/15/2025 [facility] [address] [place] [address] Pepper Sexton, REMBERTO [address] [place] [address] Social History Tobacco Use Types Packs/Day Years [...] often do you attend chur ch or yarsani services? Never 11/25/2023 Do you belong to any clubs o r organizations such as jainism groups, unions, fraternal or athletic groups, or [...] Recorded Patient Health Questionnaire-2 Score 0 11/26/2023 [facility] - Occupational [...] place to sleep or slept in a penitentiary (including now)? No 11/25/2023 Sex and Gender Information Value Date Recorded Sex Assigned at Not on file Legal Sex Male 11:33 PM EDT Gender Identity Not on file Sexual Orientation Not on file documented as of this encounter Miscellaneous Notes * Telephone Encounter - IRENE BOOTH - 03/15/2025 11:22 AM EDT Text Postbed Stitcher Hi, I am calling from [employer]. I am calling on behalf of 1 of your patients,Abram Hui, I am trying to obtain some contact information regarding his case with us. If you can please just give me a call at [phone]. The reference case number is [id number]. Thank you so much and looking forward to speaking to you. Have a good day. documented in this encounter Plan of Treatment Upcoming Encounters Date Type Department Care Team (Late st Contact Info) Description 04/07/2025 8:20 AM EDT Office Visit [facility] [address] [place] [address] Pepper Sexton NP [address] [place] [address] documented as of this encounter Visit Diagnoses Not on filedocumented in this encounter Care Teams Coal Yard Supervisor Relationship Specialty Start Date End Date Anastacio Hinojosa MD [address] [place] [address] PCP - General Family Medicine 11/26/23 Pepper Sexton NP [address] [place] [address] Nurse Practitioner Family Medicine 11/26/23 documented as of this encounter
--- OUTSIDE RECORDS SUMMARY | 2025-03-17 08:55 | XMS_ITS | Encounter Summary ---
Author Organization [facility] [employer] Address [id number] [address] [place] [address] Care Team Providers Care Articulation Officer Name Role Phone Pepper Sexton CARL-COST ENGINEER Primary Care Provider Encounter Details Date Type Department Care Team (Late Contact Info) Description 02/05/2022 Orders Only [facility] [address] [place] [phone] Ref Prov, [place] [address] Social History Tobacco Use Types Packs/Day Years [...] Encounters Date Type Department Care Team (Late Contact Info) Description 04/01/2025 10:00 AM EDT Office Visit [facility] [address] [place] [address] Robert Kumar MD [address], [facility] [address] [place] [address] documented as of this encounter Procedures Procedure Name Priority Date/Time Associated Diagnosis Comments VASC VENOUS DUPLEX LOWER BILATERAL Routine 02/05/2022 documented in this encounter Results * Vas venous duplex lwr bilateral (02/05/2022) Anatomical Region Laterality Modality Vascular Bilateral Ultrasound us Not In System Ref Prov CV VASCULAR ORDERABLES Fi nal Result documented in this encounter Visit Diagnoses Not on filedocumented in this encounter Care Teams Articulation Officer Relationship Specialty Start Date End Date Pepper Sexton, STEREOTYPER-COST ENGINEER PCP - General Nurse Practitioner 05/10/22 documented as of this encounter
--- OUTSIDE RECORDS SUMMARY | 2025-03-17 08:55 | XMS_ITS | Encounter Summary ---
Author Organization [facility] Address [address] [facility] [place] [address] Care Team Providers Care Lehr Attendant Name Role Phone Anastacio Hinojosa MD Primary Care Provider [phone] Pepper Sexton UNBUNDLER Unavailable [phone] Encounter Details Date Type Department Care Team ([facility] st Contact Info) Description 02/10/2025 [facility] [address] [facility] [place] [address] Angelo Morales MD [address] [place] [address] Social History Tobacco Use Types Packs/Day Years [...] often do you attend chur ch or worship services? Never 11/25/2023 Do you belong to any clubs o r organizations such as orthodoxy groups, unions, fraternal or athletic groups, or [...] Recorded Patient Health Questionnaire-2 Score 0 11/26/2023 [facility] - Occupational Stress [...] place to sleep or slept in a fpc (including now)? No 11/25/2023 Sex and Gender [...] Office Visit [facility] [address] [place] [address] Pepper Sexton NP [address] [place] [address] documented as of this encounter Procedures Procedure Name Priority Date/Time Associated Diagnosis Comments US EXTREMITY NONVASCULAR LIMITED Routine 02/10/2025 11:[address] LOWER EXTREMITY LEFT W AND WO IV CONTRAST Routine 02/10/2025 9:47 AM EDT documented in this encounter Results * US EXTREMITY NONVASCULAR LIMITED (02/10/2025 11:31 AM EDT) Anatomical Region Laterality Modality Radiographic Divya ging Angelo Morales MD IMG XR PROCEDURES Final Result * CT lower extremity left w and wo IV contrast (02/10/2025 9:47 AM EDT) Anatomical Region Laterality Modality Lower Extremities Left Computed Tomog mango Angelo Morales MD IMG CT PROCEDURES Final Result documented in this encounter Visit Diagnoses Not on filedocumented in this encounter Care Teams Lehr Attendant Relationship Specialty Start Date End Date Anastacio Hinojosa MD [address] [place] [address] PCP - General Family Medicine 11/26/23 Pepper Sexton NP [address] [place] [address] Nurse Practitioner Family Medicine 11/26/23 documented as of this encounter
--- OUTSIDE RECORDS SUMMARY | 2025-03-17 08:55 | XMS_ITS | Encounter Summary ---
Author Organization [facility] Address [address] [place] [address] Care Team Providers Care Engineering Faculty Name Role Phone Anastacio Hinojosa MD Primary Care Provider [phone] Pepper Sexton MERCHANDISE SHOPPER Unavailable [phone] Reason for Visit * Reason Comments Med Refill Encounter Details Date Type Department Care Team (Late st Contact Info) Description 03/16/2025 Refill [facility] [address] [place] [address] Pepper Sexton MERCHANDISE SHOPPER [address] [place] [address] Atopic dermatitis, unspecified type Social History Tobacco [...] often do you attend chur ch or congregational services? Never 11/25/2023 Do you belong to any clubs o r organizations such as jain groups, unions, fraternal or athletic groups, or [...] Recorded Patient Health Questionnaire-2 Score 0 11/26/2023 [facility]at ional Health - Occupational [...] Office Visit [facility] [address] [place] [address] Pepper Sexton NP [address] [place] [address] documented as of this encounter Visit Diagnoses Diagnosis Atopic dermatitis, unspecified type documented in this encounter Care Teams Engineering Faculty Relationship Specialty Start Date End Date Anastacio Hinojosa MD [address] [place] [address] PCP - General Family Medicine 11/26/23 Pepper Sexton NP [address] [place] [address] Nurse Practitioner Family Medicine 11/26/23 documented as of this encounter
--- OUTSIDE RECORDS SUMMARY | 2025-03-17 08:55 | XMS_ITS | Encounter Summary ---
Author Organization [facility] Address [address] [place] [address] Care Team Providers Care Structural Ironworker Name Role Phone Anastacio Hinojosa MD Primary Care Provider [phone] Pepper Sexton ADULT CAREGIVER Unavailable [phone] Pepper Sexton ADULT CAREGIVER Unavailable [phone] Encounter Details Date Type Department Care Team ([facility] st Contact Info) Description 07/09/2024 Orders Only [facility] [address] [place] [address] James Elaine MD [address] [facility] [address] [place] [address] Social History Tobacco Use Types Packs/Day Years [...] often do you attend chur ch or mormon services? Never 11/25/2023 Do you belong to any clubs o r organizations such as anabaptism groups, unions, fraternal or athletic groups, or [...] Recorded Patient Health Questionnaire-2 Score 0 11/26/2023 [facility]at [facility] - Occupational [...] place to sleep or slept in a residential (including now)? No 11/25/2023 Sex and Gender [...] Office Visit [facility] [address] [place] [address] Pepper Sexton NP [address] [place] [address] documented as of this encounter Procedures Procedure Name Priority Date/Time Associated Diagnosis Comments SCANNED LABS Routine 07/09/2024 1:15 PM EDT documented in this encounter Results * SCANNED LABS (07/09/2024 1:15 PM EDT) James Elaine MD LAB CHG PERFORMABLES Final Resul t documented in this encounter Visit Diagnoses Not on filedocumented in this encounter Care Teams Structural Ironworker Relationship Specialty Start Date End Date Anastacio Hinojosa MD [address] [place] [address] PCP - General Family Medicine 11/26/23 Pepper Sexton NP [address] [place] [address] PCP - [place] [employer] 04/23/24 Pepper Sexton NP [address] [place] [address] Nurse Practitioner Family Medicine 11/26/23 documented as of this encounter
--- OUTSIDE RECORDS SUMMARY | 2025-03-17 08:55 | XMS_ITS | Referral Summary ---
Author Organization [facility] Address [address] [place] [address] Care Team Providers Care Conditioning Yard Supervisor Name Role Phone Delmer Bryan MD Primary Care Provider [phone] Social History Tobacco Use Types Packs/Day Years Used Date Smoking Tobacco: Never Assessed MD Safety & Environment Answer Date Rec orded [...] 01/11/2022 8:45 AM EDT Plan of Treatment Not on file Insurance [facility] Care Teams Conditioning Yard Supervisor Relationship Specialty Start Date End Date Delmer Bryan MD [address] [place] [address] PCP - General 05/14/22
--- OUTSIDE RECORDS SUMMARY | 2025-03-17 08:55 | XMS_ITS | Encounter Summary ---
Author Organization [facility] Address [address] [place] [place] [address] Care Team Providers Care Circular Distributor Name Role Phone Anastacio Hinojosa MD Primary Care Provider [phone] Pepper Sexton SUPERVISOR STAGE CARPENTRY Unavailable [phone] Encounter Details Date Type Department Care Team ([facility] st Contact Info) Description 02/08/2025 [facility] [address] [place] [address] Angelo Morales MD [address] [place] [address] Social History Tobacco Use Types [...] often do you attend chur ch or druze services? Never 11/25/2023 Do you belong to any clubs o r organizations such as religious groups, unions, fraternal or athletic groups, or [...] Recorded Patient Health Questionnaire-2 Score 0 11/26/2023 [facility] Occupat ional Health - [...] place to sleep or slept in a skilled nursing (including now)? No 11/25/2023 Sex and Gender [...] Office Visit [facility] [address] [place] [address] Pepper Sexton NP [address] [place] [address] documented as of this encounter Procedures Procedure Name Priority Date/Time Associated Diagnosis Comments US, RETROPERITNL ABD, LTD Routine 2024 12:06 PM EDT documented in this encounter Results * Retroperitoneal Ultrasound, Abdomen Ltd (02/08/2025 12:06 PM EDT) us Angelo Morales MD IN CLINIC/BEDSIDE ORDERABLES Fi nal Result documented in this encounter Visit Diagnoses Not on filedocumented in this encounter Care Teams Circular Distributor Relationship Specialty Start Date End Date Anastacio Hinojosa MD [address] [place] [address] PCP - General Family Medicine 11/26/23 Pepper Sexton NP [address] [place] [address] Nurse Practitioner Family Medicine 11/26/23 documented as of this encounter
--- OUTSIDE RECORDS SUMMARY | 2025-03-17 08:55 | XMS_ITS | Encounter Summary ---
Author Organization [facility] Address [address] [facility] [place] [address] Care Team Providers Care Toe Puller Name Role Phone Anastacio Hinojosa MD Primary Care Provider [phone] Pepper Sexton TOOL COORDINATOR Unavailable [phone] Encounter Details Date Type Department Care Team (Late st Contact Info) Description 03/08/2025 Abstract [facility] [address] [place] [address] Pepper Sexton, TOOL COORDINATOR [address] [place] [address] Social History Tobacco Use Types Packs/Day Years [...] often do you attend chur ch or samaritan services? Never 11/25/2023 Do you belong to any clubs o r organizations such as baptism groups, unions, fraternal or athletic groups, or [...] Recorded Patient Health Questionnaire-2 Score 0 11/26/2023 [facility] Occupat ional Health - [...] place to sleep or slept in a custodial (including now)? No 11/25/2023 Sex and Gender [...] Visit [facility] [address] [place] [address] Pepper Sexton NP [address] [place] [address] documented as of this encounter Visit Diagnoses Not on filedocumented in this encounter Care Teams Toe Puller Relationship Specialty Start Date End Date Anastacio Hinojosa MD [address] [place] [address] PCP - General Family Medicine 11/26/23 Pepper Sexton NP [address] [place] [address] Nurse Practitioner Family Medicine 11/26/23 documented as of this encounter
--- OUTSIDE RECORDS SUMMARY | 2025-03-17 08:55 | XMS_ITS | Encounter Summary ---
Author Organization [facility] Address [address] [place] [address] Care Team Providers Care Board Certified Behavioral Analyst Name Role Phone Anastacio Hinojosa MD Primary Care Provider [phone] Pepper Sexton KINDER TEACHER Unavailable [phone] Pepper Sexton KINDER TEACHER Unavailable [phone] Encounter Details Date Type Department Care Team (Late st Contact Info) Description 02/25/2024 Orders Only [facility] [address] [place] [address] Pepper Sexton NP [address] [place] [address] Social History Tobacco Use Types Packs/Day Years [...] often do you attend chur ch or tenriism services? Never 11/25/2023 Do you belong to any clubs o r organizations such as anglican groups, unions, fraternal or athletic groups, or [...] Recorded Patient Health Questionnaire-2 Score 0 11/26/2023 [facility] Occupat ional Health - Occupational Stress [...] place to sleep or slept in a halfway (including now)? No 11/25/2023 Sex and Gender Information Value Date Recorded Sex Assigned at Not on file Legal Sex Male 11:33 PM EDT Gender Identity Not on file Sexual Orientation Not on file documented as of this encounter Plan of Treatment Upcoming Encounters Date Type Department Care Team (Late st Contact Info) Description 04/07/2025 8:20 AM EDT Office Visit [facility] [address] [place] [address] Pepper Sexton NP [address] [place] [address] documented as of this encounter Procedures Procedure Name Priority Date/Time Associated Diagnosis Comments SCANNED LABS Routine 02/25/2024 9:03 AM EDT MISCELLANEOUS LAB TEST Routine 02/24/2024 9:38 AM EDT documented in this encounter Results * SCANNED LABS (02/25/2024 9:03 AM EDT) Pepper Sexton NP LAB CHG PERFORMABLES Final Resu lt * - Miscellaneous Test (02/24/2024 9:38 AM EDT) Pepper Sexton NP LAB BLOOD ORDERABLES Final Resu lt documented in this encounter Visit Diagnoses Not on filedocumented in this encounter Care Teams Board Certified Behavioral Analyst Relationship Specialty Start Date End Date Anastacio Hinojosa MD [address] [place] [address] PCP - General Family Medicine 11/26/23 Pepper Sexton NP [address] [place] [address] PCP - [place] [employer] 04/23/24 Pepper Sexton NP [address] [place] [address] Nurse Practitioner Family Medicine 11/26/23 documented as of this encounter
--- OUTSIDE RECORDS SUMMARY | 2025-03-17 08:55 | XMS_ITS | Encounter Summary ---
Author Organization [facility] Address [address] [place] [address] Care Team Providers Care Drug And Alcohol Treatment Specialist Name Role Phone Anastacio Hinojosa MD Primary Care Provider [phone] Pepper Sexton MOHEL Unavailable [phone] Reason for Visit * Reason Comments Med Refill Encounter Details Date Type Department Care Team (Late st Contact Info) Description 03/16/2025 Refill [facility] [address] [place] [address] Pepper Sexton MOHEL [address] [place] [address] Hypothyroidism, unspecified type ; Gastroesophageal reflux disease, unspecified whether esophagitis present; Essential hypertension, benign Social History Tobacco Use Types Packs/Day Years [...] often do you attend chur ch or restoration services? Never 11/25/2023 Do you belong to [...] Recorded Patient Health Questionnaire-2 Score 0 11/26/2023 [facility] - [facility]ational Stress Questionnaire Answer Date [...] Office Visit [facility] [address] [place] [address] Pepper Sexton NP [address] [place] [address] documented as of this encounter Visit Diagnoses Diagnosis Hypothyroidism, unspecified type Gastroesophageal reflux disease, unspecified whether esophagitis present Essential hypertension, benign Essential hypertension, benign documented in this encounter Care Teams Drug And Alcohol Treatment Specialist Relationship Specialty Start Date End Date Anastacio Hinojosa MD [address] [place] [address] PCP - General Family Medicine 11/26/23 Pepper Sexton NP [address] [place] [address] Nurse Practitioner Family Medicine 11/26/23 documented as of this encounter
--- OUTSIDE RECORDS SUMMARY | 2025-03-17 08:55 | XMS_ITS | Clinical Summary ---
Author Organization [facility] tem Address [id number] [address] [place] [address] Care Team Providers Care Complaint Evaluation Officer Name Role Phone Pepper Sexton APRN-INTERNATIONAL ACCOUNT MANAGER Primary Care Provider Allergies No known active allergies Medications gabapentin (NEURONTIN) 300 mg capsule Take 1 capsule (300 mg total) by mouth in the morning and 1 capsule (300 mg total) before bedtime. Active omeprazole (PriLOSEC) 40 mg capsule Take 1 capsule (40 mg total) by mouth in the morning. Active levothyroxine (SYNTHROID, LEVOTHROID) 25 MCG tablet Take 4 tablets (100 mcg total) by mouth in the morning. Active doxepin (SINEquan) 10 mg capsule Take 1 capsule (10 mg total) by mouth nightly. Active valsartan (DIOVAN) 320 mg tablet Take 1 tablet (320 mg total) by mouth in the morning. 2 Active nebivoloL (BYSTOLIC) 5 mg tablet Take 1 tablet (5 mg total) by mouth in the morning. Active montelukast (SINGULAIR) 10 mg tablet Take 1 tablet (10 mg total) by mouth nightly. Active meloxicam (MOBIC) 15 mg tablet Take 1 tablet (15 mg total) by mouth in the morning. 2 Active budesonide-formo teroL (SYMBICORT) 80-4.5 mcg/actuation inhalerIndicatio ns:Mild persistent asthma without complication Inhale 2 puffs in the morning and 2 puffs before bedtime. 10.2 g 12 2 Active Additional Information Patient taking differently:2 puff inhalationAs needed, Reported on 04/27/2024 albuterol (PROVENTIL HFA;VENTOLIN HFA) 90 mcg/actuation inhalerIndicatio ns:Mild persistent asthma without complication Inhale 2 puffs every 6 (six) hours as needed for wheezing. 18 g 11 2 Active famotidine (PEPCID) 20 mg tablet Take 2 tablets (40 mg total) by mouth in the morning. Active magnesium oxide (MAGOX) 400 mg tablet Take 1 tablet (400 mg total) by mouth 3 (three) times a day. Active ibuprofen (ADVIL,MOTRIN) 200 mg tablet Take 1 tablet (200 mg total) by mouth every 6 (six) hours as needed for pain. Active Active Problems Problem Noted Date Diagnosed Date Pulmonary hypertension 08/02/2022 Mild persistent asthma without complication 07/24 Pulmonary infiltrate 08/02/2022 Hypertension 05/10/2022 LV dysfunction 05/10/2022 Syncope and collapse 12/15/2021 Family History Medical History Relation Name Comments No Known Problems Father Arthritis Mother Relation Name Status Comments Father Mother Alive Social History Tobacco Use Types Packs/Day Years Used Date Smoking Tobacco: Never Smokeless Tobacco: Never Tobacco Cessation:Counseling Given: Not Answered Alcohol Use Standard Drinks/Week Comments Yes 4 (1 standard drink = 0.6 oz pur e alcohol) social/recreational Childcare Answer Date Recorded Childcare Unknown 03/04/2019 Employment Answer Date Recorded Employment Unknown 03/04/2019 Sex and Gender Information Value Date Recorded Sex Assigned at Not on file Legal Sex Male 11:51 AM EDT Gender Identity Not on file Sexual Orientation Not on file Last Filed Vital Signs Vital Sign Reading Time Taken Comments Blood Pressure 132/93 05/27/2024 11:20 AM EDT Pulse 79 05/27/2024 11:20 AM EDT Temperature 36.3 C (97.3 F) 05/27/2024 10:35 AM EDT Respiratory Rate 11 05/27/2024 11:20 AM EDT Oxygen Saturation 91% 05/27/2024 11:20 AM EDT Inhaled Oxygen Concentration - - Weight 117.9 kg (260 lb) 05/27/2024 8:45 AM EDT Height 175.3 cm (5' 9 ) 05/27/2024 8:45 AM EDT Body Mass Index 38.4 05/27/2024 8:45 AM EDT Plan of Treatment Upcoming Encounters Date Type Department Care Team (Late st Contact Info) Description 04/01/2025 10:00 AM EDT Office Visit [facility] [place] [address] [place] [address] Robert Kumar MD [address], [address] [address] Health Maintenance Due Date Last Done Comments Depression Screening 1979 Adult BMI Follow Up Plan 1985 DTaP,Tdap and Td Vaccines (1 - Tdap) 1986 Zoster (Shingles) Vaccine (1 of 2) 2017 Influenza Vaccine 05/24/2025 Adult BMI Screening 05/27/2025 05/27/2024 Tobacco Screening 05/27/2025 05/27/2024 Medical Devices Not on file Insurance [employer] Advance Directives * Full Code (Latest Code Status on File) Date Activated Date Inactivated Comments 12/16/2021 11:22 AM 12/16/2021 5:00 PM Care Teams Complaint Evaluation Officer Relationship Specialty Start Date End Date Pepper Sexton, MECHANICAL ESTIMATOR-INTERNATIONAL ACCOUNT MANAGER PCP - General Nurse Practitioner 05/10/22
--- OUTSIDE RECORDS SUMMARY | 2025-03-17 08:55 | XMS_ITS | Encounter Summary ---
Author Organization [facility] Address [address] [facility] [place] [address] Care Team Providers Care Derrick Boat Leverman Name Role Phone Anastacio Hinojosa MD Primary Care Provider [phone] Pepper Sexton BEHAVIORAL HEALTH CLINICIAN Unavailable [phone] Encounter Details Date Type Department Care Team (Late st Contact Info) Description 03/08/2025 Bamboo flowsheet [facility] [address] [place] [address] Pepper Sexton, BEHAVIORAL HEALTH CLINICIAN [address] [place] [address] Social History Tobacco Use Types Packs/Day Years [...] often do you attend chur ch or episcopal services? Never 11/25/2023 Do you belong to any clubs o r organizations such as worship groups, unions, fraternal or athletic groups, or [...] Recorded Patient Health Questionnaire-2 Score 0 11/26/2023 [facility] - Occupational Stress [...] Visit [facility] [address] [place] [address] Pepper Sexton NP [address] [place] [address] documented as of this encounter Visit Diagnoses Not on filedocumented in this encounter Care Teams Derrick Boat Leverman Relationship Specialty Start Date End Date Anastacio Hinojosa MD [address] [place] [phone] PCP - General Family Medicine 11/26/23 Pepper Sexton NP [address] [place] [address] Nurse Practitioner Family Medicine 11/26/23 documented as of this encounter
--- OUTSIDE RECORDS SUMMARY | 2025-03-17 08:55 | XMS_ITS | Encounter Summary ---
Author Organization [facility] Address [id number] [address] [place] [address] Care Team Providers Care Territory Manager General Sales Name Role Phone Pepper Sexton CARL-MONEY MARKET CLERK Primary Care Provider Encounter Details Date Type Department Care Team (Late st Contact Info) Description 08/28/2022 Orders Only [facility] [address] [place] [phone] Ref Prov, [place] [address] Social History Tobacco Use Types Packs/Day Years [...] have Coronavirus / COVID-19? No / Unsure 08/22/2022 2:41 PM EST documented as of this encounter Plan of Treatment Upcoming Encounters Date Type Department Care Team (Late st Contact Info) Description 04/01/2025 10:00 AM EDT Office Visit [facility] [place] [address] Robert Kumar MD [address], [address] [address] documented as of this encounter Procedures Procedure Name Priority Date/Time Associated Diagnosis Comments VASC VENOUS DUPLEX LOWER BILATERAL Routine 08/28/2022 documented in this encounter Results * Vas venous duplex lwr bilateral (08/28/2022) Anatomical Region Laterality Modality Vascular Bilateral Ultrasound us Not In System Ref Prov CV VASCULAR ORDERABLES Fi nal Result documented in this encounter Visit Diagnoses Not on filedocumented in this encounter Care Teams Territory Manager General Sales Relationship Specialty Start Date End Date Pepper Sexton, MANAGER ANIMAL-MONEY MARKET CLERK PCP - General Nurse Practitioner 05/10/22 documented as of this encounter
--- OUTSIDE RECORDS SUMMARY | 2025-03-17 08:55 | XMS_ITS | Encounter Summary ---
Author Organization [facility] Address [address] [place] [address] Care Team Providers Care Animal Shelter Supervisor Name Role Phone Anastacio Hinojosa MD Primary Care Provider [phone] Pepper Sexton MISSILE AND MISSILE CHECKOUT TECHNICIAN Unavailable [phone] Pepper Sexton MISSILE AND MISSILE CHECKOUT TECHNICIAN Unavailable [phone] Encounter Details Date Type Department Care Team (Late st Contact Info) Description 2024 Abstract [facility] [address] [place] [address] Pepper Sexton NP [address] [place] [address] Social History Tobacco Use Types Packs/Day Years [...] often do you attend chur ch or taoist services? Never 11/25/2023 Do you belong to [...] Recorded Patient Health Questionnaire-2 Score 0 11/26/2023 [facility] - [...] place to sleep or slept in a retirement (including now)? No 11/25/2023 Sex and Gender [...] Office Visit [facility] [address] [place] [address] Pepper Sexton NP [address] [place] [address] documented as of this encounter Visit Diagnoses Not on filedocumented in this encounter Care Teams Animal Shelter Supervisor Relationship Specialty Start Date End Date Anastacio Hinojosa MD [address] [place] [address] PCP - General Family Medicine 11/26/23 Pepper Sexton NP [address] [place] [address] PCP - [place] [employer] 04/23/24 Pepper Sexton NP [address] [place] [address] Nurse Practitioner Family Medicine 11/26/23 documented as of this encounter
--- OUTSIDE RECORDS SUMMARY | 2025-03-17 08:55 | XMS_ITS | Encounter Summary ---
Author Organization [facility] Address [address] [place] [address] Care Team Providers Care Music Industry Internship Name Role Phone Shaikh MITZI De La Paz Primary Care Provider [phone] Anastacio Hinojosa MD Primary Care Provider [phone] Pepper Sexton ACTIVITY THERAPIST Unavailable [phone] Pepper Sexton NP Unavailable [phone] Encounter Details Date Type Department Care Team (Late st Contact Info) Description 09/22/2023 Abstract [facility] [address] [place] [address] Pepper Sexton NP [address] [place] [address] Social History Tobacco Use Types Packs/Day Years Used Date Smoking Tobacco: Never Tobacco Cessation:Counseling Given: Not Answered [...] Department Care Team (Late Contact Info) Description 04/07/2025 8:20 AM EDT Office Visit [facility] [address] [place] [address] Pepper Sexton NP [address] [place] [address] documented as of this encounter Visit Diagnoses Not on filedocumented in this encounter Care Teams Music Industry Internship Relationship Specialty Start Date End Date Shaikh De La Paz MD PCP - General Internal Medicine 04/04/23 11/25/23 Anastacio Hinojosa MD [address] [place] [address] PCP - General Family Medicine 11/26/23 Pepper Sexton NP [address] [place] [phone] PCP - [facility] 04/23/24 Pepper Sexton NP [address] [place] [address] Nurse Practitioner Family Medicine 11/26/23 documented as of this encounter
[2025-03-17 09:49] LABS: Phosphorus 2.7 mg/dL (2.6-4.7)
[2025-03-17 10:24] LABS: Magnesium 0.2 mg/dL (1.8-2.4)
== END 2025-03-17 08:51 | disposition home or self-care (01) ==
LOC: LAB 08:52
PROVIDERS: PCP Nurse Practitioner; Visit Provider Internal Medicine Nephrology
DX: E83.42 Hypomagnesemia (principal); I10 Essential (primary) hypertension
CPT/HCPCS: 36415; 83735; 84100

== ENCOUNTER 2025-03-17 08:54 | Outpatient (OUT) | payer BC, SELFPAY ==
[2025-03-17 09:13] LABS: Basophils Absolute Auto 0.1 10^3/uL (0.0-0.1); Basophils Percent Auto 0.7 % (0.2-2.0); Eosinophils Absolute Auto 0.9 10^3/uL (0.0-0.7); Eosinophils Percent Auto 9.5 % (0.9-7.0); Hematocrit 38.3 % (42.0-54.0); Hemoglobin 12.5 g/dL (14.0-18.0); Immature Granulocytes Abs Auto 0.03 10^3/uL (0.00-0.03); Immature Granulocytes Pct Auto 0.3 % (0.0-0.5); Lymphocytes Absolute Auto 1.9 10^3/uL (1.2-3.8); Lymphocytes Percent Auto 20.4 % (20.5-60.0); Mean Corpuscular HGB Conc 32.6 g/dL (29.9-35.2); Mean Corpuscular Hemoglobin 31.8 pg (25.9-34.0); Mean Corpuscular Volume 97.5 fL (80.0-94.0); Mean Platelet Volume 9.8 fL (9.5-13.5); Monocytes Absolute Auto 0.5 10^3/uL (0.3-0.8); Monocytes Percent Auto 5.2 % (1.7-12.0); Neutrophils Absolute Auto 5.8 10^3/uL (1.4-6.5); Neutrophils Percent Auto 63.9 % (43.0-75.0); Platelet Count 277 10^3/uL (150-450); Red Blood Count 3.93 10^6/uL (4.70-6.10); White Blood Count 9.1 10^3/uL (4.0-11.0)
[2025-03-17 09:16] LABS: Bilirubin Urine NEGATIVE (NEGATIVE); Blood Urine NEGATIVE (NEGATIVE); Clarity Urine CLEAR (CLEAR); Color Urine YELLOW (YELLOW); Glucose Urine UA NEGATIVE (NEGATIVE); Ketones Urine NEGATIVE (NEGATIVE); Leukocyte Esterase Urine NEGATIVE (NEGATIVE); Nitrite Urine NEGATIVE (NEGATIVE); Protein Urine 30 mg/dL (NEG/TRACE); Specific Gravity Urine 1.025 (1.005-1.025); Urine Microscopic Indicated YES; Urobilinogen Urine 0.2 EU/dL (0.2-1.0)
[2025-03-17 09:25] LABS: Bacteria Urine TRACE #/HPF (NONE SEEN); Cast Seen? SEEN #/LPF (NONE SEEN); Crystals Seen? None Seen #/HPF (None Seen); Fine Granular Casts Urine RARE; Hyaline Casts Urine FEW; Mucus Urine LARGE (NONE SEEN); RBC Urine 0-2 #/HPF (0-2); Squamous Epithelial Cell Urine FEW #/LPF (NONE/RARE)
[2025-03-17 09:30] LABS: Alanine Aminotransferase 29 U/L (16-63); Albumin Globulin Ratio 0.8; Albumin Level 3.2 g/dL (3.4-5.0); Alkaline Phosphatase 133 U/L (46-116); Anion Gap 13.5; Aspartate Amino Transferase 15 U/L (15-37); BUN Creatinine Ratio 8.9; Bilirubin Total 0.5 mg/dL (0.2-1.0); Calcium 7.1 mg/dL (8.5-10.1); Carbon Dioxide 27.9 mmol/L (21.0-32.0); Chloride 110 mmol/L (98-107); Estimated GFR (African America >60 (>=60 mL/min/1.73m^2); Estimated GFR (Non-African Ame >60 (>=60 mL/min/1.73m^2); Globulin 4.1 g/dL; Glucose 134 mg/dL (74-106); Potassium 3.4 mmol/L (3.5-5.1); Sodium 148 mmol/L (136-145); Total Protein 7.3 g/dL (6.4-8.2)
[2025-03-17 09:37] LABS: Chol HDL Ratio 4.6; Cholesterol 173 mg/dL (<=200); HDL Cholesterol 38 mg/dL (40-60); Thyroid Stimulating Hormone 2.121 uIU/mL (0.358-3.740); Triglycerides 215 mg/dL (<=150)
[2025-03-17 09:44] LABS: Creatinine Urine Random 345.39 mg/dL (20.00-300.00); Microalbum Creatinine Ratio Ur 15.3 mg/g (0.0-29.9); Microalbumin Urine Random 5.3 mg/dL (<=30.0)
[2025-03-17 10:08] LABS: Free T4 0.98 ng/dL (0.76-1.46)
[2025-03-17 10:31] LABS: Prostate Specific Antigen Scrn 1.49 ng/mL (<=4.00)
== END 2025-03-17 08:55 | disposition home or self-care (01) ==
LOC: LAB 08:55
PROVIDERS: PCP Nurse Practitioner; Visit Provider Nurse Practitioner
DX: E78.2 Mixed hyperlipidemia (principal); Z12.5 Encounter for screening for malignant neoplasm of prostate; K21.9 Gastro-esophageal reflux disease without esophagitis; N18.31 Chronic kidney disease, stage 3a; E03.9 Hypothyroidism, unspecified; I12.9 Hypertensive chronic kidney disease with stage 1 through stage 4 chronic kidney disease, or unspecified chronic kidney disease
CPT/HCPCS: 36415; 80053; 80061; 81001; 82043; 82570; 84439; 84443; 85025; G0103

== ENCOUNTER 2025-03-17 11:14 | Emergency (ER) | payer BC, SELFPAY ==
--- OUTSIDE RECORDS SUMMARY | 2025-03-08 08:20 | XMS_ITS | Encounter Summary ---
Author Organization [facility] Address [address] [place] [address] Care Team Providers Care Folder Taper Operator Name Role Phone Anastacio Hinojosa MD Primary Care Provider [phone] Pepper Sexton NP Unavailable [phone] Reason for Referral * Consultation (Stat) - Authorized Specialty Diagnoses / Procedures Referred By Contalejo ybarra Referred To Contact Vascular Surgery Diagnoses Cellulitis of left lower extremity Left leg swelling Procedures [place] OFFICE/OUTPATIENT [facility] 60 MINUTES Pepper Sexton NP [address] [place] [address] Phone: tel: fax: Fátima Hernandez MD [address], [address] [address] Phone: tel:[phone] fax: Referral ID Status Reason Start Date Expiration Date Visits Requested Visits Authorized [id number] Authorized Specialty Services Required 03/08/2025 09/04/2025 1 1 Scheduling Instructions If can be done in [place] office that would be great Reason for Visit * Reason Comments cellulitus of leg Encounter Details Date Type Department Care Team (Late st Contact Info) Description 03/08/2025 8:20 AM EDT Office Visit [facility] [address] [place] [address] Pepper Sexton NP [address] [place] [address] Cellulitis of left lower extremity (Primary Dx); Essential hypertension, benign ; Left leg swelling; Morbid (severe) obesity due to excess calories (CMS-HCC); Chronic bronchitis, unspecified chronic bronchitis type (HCC); Restless legs syndrome; Atopic dermatitis, unspecified type Social History Tobacco Use Types Packs/Day Years Used Date Smoking Tobacco: Former Cigars Smokeless Tobacco: Never Alcohol Use Standard Drinks/Week Comments Yes 0 (1 standard drink = 0.6 oz pur e alcohol) caffeine: 1-2 cups per day Social Connection and Isolation Panel [NHANES] A nswer Date Recorded In a typical week, how many times do you talk on the phone with family, friends, or neighbors? Once a week 11/25/2023 How often do you get togethe r with friends or relatives? Three times a week 11/25/2023 How often do you attend chur or latter-day services? Never 11/25/2023 Do you belong to any clubs o r organizations such as rastafarian groups, unions, fraternal or athletic groups, or school groups? Yes 11/25/2023 How often do you attend meet ings of the clubs or organizations you belong to? Never 11/25/2023 Are you , , di vorced, , never , or living with a partner? 11/25/2023 AUDIT-C Answer Date Recorded Q1: How often do you have a drink containing alcohol? 4 or more times a week 11/25/2023 Q2: How many drinks containi ng alcohol do you have on a typical day when you are drinking? 5 or 6 Q3: How often do you have si x or more drinks on one occasion? Weekly 11/25/2023 Overall Financial Resource Strain (CARDIA) Answe r Date Recorded How hard is it for you to pa y for the very basics like food, housing, medical care, and heating? Somewhat hard 11/25/2023 PHQ-2 Answer Date Recorded Patient Health Questionnaire-2 Score 0 11/26/2023 [facility] Occupat ional Health - Occupational Stress Questionnaire Answer Date Recorded Do you feel stress - tense, restless, nervous, or anxious, or unable to sleep at night because your mind is troubled all the time - these days? To some extent 11/25/2023 Exercise Vital Sign Answer Date Recorde d On average, how many days pe r week do you engage in moderate to strenuous exercise (like a brisk walk)? 5 days 11/25/2023 On average, how many minutes do you engage in exercise at this level? 150+ min 11/25/2023 Hunger Vital Sign Answer Date Recorded Within the past 12 months, y ou worried that your food would run out before you got the money to buy more. Never true 11/25/19 24 Within the past 12 months, t he food you bought just didn't last and you didn't have money to get more. Never true 11/25/2023 PRAPARE - Transportation Answer Date Re corded In the past 12 months, has l ack of transportation kept you from medical appointments or from getting medications? No 12/2023 In the past 12 months, has l ack of transportation kept you from meetings, work, or from getting things needed for daily living? No 11/25/2023 Housing Stability Vital Sign Answer Dell e Recorded In the last 12 months, was t here a time when you were not able to pay the mortgage or rent on time? No 11/25/2023 In the last 12 months, how many places have you lived? 1 11/25/2023 In the last 12 months, was t here a time when you did not have a steady place to sleep or slept in a longterm (including now)? No 11/25/2023 Sex and Gender Information Value Date Recorded Sex Assigned at Not on file Legal Sex Male 11:33 PM EDT Gender Identity Not on file Sexual Orientation Not on file documented as of this encounter Last Filed Vital Signs Vital Sign Reading Time Taken Comments Blood Pressure 144/92 03/08/2025 8:54 AM EDT Pulse 76 03/08/2025 8:26 AM EDT Temperature 36.7 C (98.1 F) 03/08/2025 8:26 AM EDT Respiratory Rate 20 03/08/2025 8:26 AM EDT Oxygen Saturation 94% 03/08/2025 8:26 AM EDT Inhaled Oxygen Concentration - - Weight 118 kg (259 lb 3.2 oz) 03/08/2025 8:26 AM EDT Height - - Body Mass Index 38.28 01/06/2025 9:06 AM EDT documented in this encounter Patient Instructions * Patient Instructions* Pepper Sexton NP - 03/08/2025 8:20 AM EDT Return to work as of 03/09/25 Keep fu appt with me for March Hansel wrap for Left lower leg documented in this encounter Progress Notes * Pepper Sexton NP - 03/08/2025 8:56 AM EDTAssociated Problem(s): Left leg swelling As per cellulitis entry * Pepper Sexton NP - 03/08/2025 8:56 AM EDTAssociated Problem(s): Cellulitis of left lower extremity Finished off meds Vascular consult was inadvertantly missed at last appt Placed today Would like to RTW as of 03/09/25, I have advised I would like him to wear hansel wrap to LLE to help with swelling Fu in 4 weeks * IRENE BOOTH - 03/08/2025 8:20 AM EDT Pt still has not heard from vascular as of yet. Swelling has gone down some in left leg however pt still has complaints of ankle pain * Pepper Sexton NP - 03/08/2025 8:20 AM EDT Images from the original note were not included. Abram Sheehan is a 59 y.o. male presents with chief complaint of cellulitus of leg HPI: Here for a recheck of his left lower leg pain/swelling Overall is doing better, no chest pain/pressure, some soreness around the left ankle Has not heard from vascular doctor either No fever, chills SUBJECTIVE: MEDICATIONS: Current Outpatient Medications Medication Instructions albuterol HFA (Ventolin HFA) 90 mcg/act inhaler 2 puffs, Inhalation, Every 6 hours PRN amLODIPine (NORVASC) 10 mg, Oral, Daily budesonide-formoterol (Symbicort) 160-4.5 MCG/ACT inhaler 2 puffs, Inhalation, 2 times daily, [place] with water after use to reduce aftertaste and incidence of candidiasis. Do not swallow. cefdinir (OMNICEF) 600 mg, Daily doxepin (SINEQUAN) 100 mg, Oral, Nightly Eliquis 5 MG tablet TAKE 2 TABLETS BY MOUTH TWICE DAILY FOR 4 DAYS and then TAKE 1 TABLET BY MOUTH TWICE DAILY thereafter gabapentin (NEURONTIN) 600 mg, Oral, 2 times daily levoFLOXacin (Levaquin) 750 MG tablet TAKE 1 TABLET BY MOUTH ONCE DAILY x14 levothyroxine (SYNTHROID, LEVOXYL) 112 mcg, Oral, Daily [...] swallowing and voice change. Eyes: Negative for pain, discharge and visual disturbance. Respiratory: Negative for apnea, chest tightness and wheezing. Cardiovascular: Positive for leg swelling. Gastrointestinal: Negative for abdominal distention, blood in stool, constipation and diarrhea. Genitourinary: Negative for decreased urine volume, difficulty urinating, dysuria and hematuria. Skin: Negative for color change. Neurological: Negative [...] History of herniated intervertebral disc Hyperglycemia Hyperlipidemia Hypokalemia Hypomagnesemia Hypothyroidism Left leg swelling 11/26/2023 Marijuana use 11/26/2023 Orthopedic hardware present 11/26/2023 Osteoarthritis Paresthesia of both hands 11/26/2023 Pinched nerve 11/26/2023 Psoriasis 11/26/2023 Restless legs Rheumatoid arthritis (HCC) Thyroid disease Venous reflux 11/26/2023 Past Surgical History: Procedure Laterality Date FOOT SURGERY HERNIA REPAIR HERNIA REPAIR LEG SURGERY 2012 fractured leg ULNAR NERVE REPAIR Right 05/27/2024 Dr. Bo family history includes Hypertension in his father. OBJECTIVE: Visit Vitals BP (!) 144/92 (BP Location: Left arm, Patient Position: Sitting, BP Cuff Size: Large adult) Pulse 76 Temp 98.1 ??F (Temporal) Resp 20 Wt 259 lb 3.2 oz SpO2 94% BMI 38.28 kg/m?? Smoking Status Former BSA 2.4 m?? Physical Exam Vitals and nursing note reviewed. Constitutional: Appearance: Normal appearance. HENT: Head: Normocephalic. Right Ear: External ear normal. Left Ear: External ear normal. Nose: Nose normal. Mouth/Throat: Mouth: Mucous membranes are moist. Pharynx: Oropharynx is clear. Eyes: Extraocular Movements: Extraocular movements intact. Conjunctiva/sclera: Conjunctivae normal. Cardiovascular: Rate and Rhythm: Normal rate and regular rhythm. Pulses: Normal pulses. Heart sounds: Normal heart sounds. Pulmonary: Effort: Pulmonary effort is normal. Breath sounds: Normal breath sounds. Abdominal: General: Bowel sounds are normal. Palpations: Abdomen is soft. Musculoskeletal: Cervical back: Neck supple. Left lower leg: Edema present. Comments: Measurements: Left: calf 18 (was 19.25), ankle 11 (was 12 1/4 ) Right: calf 16.25 (was 16.75), ankle 8.75 Skin: mild erythema and demarcation noted, no warmth no tenderness Skin: General: Skin is warm and dry. Capillary Refill: Capillary refill takes 2 to 3 seconds. Neurological: General: No focal deficit present. Mental Status: He is alert. Psychiatric: Mood and Affect: Mood normal. Behavior: Behavior normal. Thought Content: Thought content normal. Judgment: Judgment normal. ASSESSMENT AND PLAN: Follow up for Next scheduled follow-up. Problem List Items Addressed This Visit Essential hypertension, benign - Primary Please check blood pressure daily and record DASH diet Limit caffeine Take medication as directed Contact office if chest pain, pressure, dizziness, shortness of breath, swelling legs Recommend slow position changes Current meds: amlodipine, bystolic, valsartan Blood pressure is elevated today, however took meds about 45 mins ago Relevant Medications valsartan (Diovan) 320 MG tablet Left leg swelling As per cellulitis entry Relevant Orders Ambulatory referral to Vascular Surgery Atopic dermatitis Relevant Medications montelukast (Singulair) 10 MG tablet Morbid (severe) obesity due to excess calories ([facility]) Discussed with patient their BMI (actual, verses recommended). We have also discussed lifestyle modifications: attempts to perform physical activity as chronic conditions allow, also to monitor dietary intake: increasing protein/fruits/veggies and lowering carb intake (unless contraindicated). Limit sodas, juices, and sugary drinks. Would recommend looking into weight watchers program Cellulitis of left lower extremity Finished off meds Vascular consult was inadvertantly missed at last appt Placed today Would like to RTW as of 03/09/25, I have advised I would like him to wear hansel wrap to LLE to help with swelling Fu in 4 weeks Relevant Orders Ambulatory referral to Vascular Surgery Other Visit Diagnoses Chronic bronchitis, unspecified chronic bronchitis type (HCC) Relevant Medications budesonide-formoterol (Symbicort) 160-4.5 MCG/ACT inhaler Restless legs syndrome Relevant Medications gabapentin (Neurontin) 600 MG tablet * Pepper Sexton NP - 03/08/2025 6:18 AM EDTAssociated Problem(s): Morbid (severe) obesity due to excess calories ([facility]) Discussed with patient their BMI (actual, verses recommended). We have also discussed lifestyle modifications: attempts to perform physical activity as chronic conditions allow, also to monitor dietary intake: increasing protein/fruits/veggies and lowering carb intake (unless contraindicated). Limit sodas, juices, and sugary drinks. Would recommend looking into weight watchers program * Pepper Sexton NP - 03/08/2025 6:17 AM EDTAssociated Problem(s): Essential hypertension, benign Please check blood pressure daily and record DASH diet Limit caffeine Take medication as directed Contact office if chest pain, pressure, dizziness, shortness of breath, swelling legs Recommend slow position changes Current meds: amlodipine, bystolic, valsartan Blood pressure is elevated today, however took meds about 45 mins ago documented in this encounter Plan of Treatment Upcoming Encounters Date Type Department Care Team (Late st Contact Info) Description 04/07/2025 8:20 AM EDT Office Visit [facility] [address] [place] [address] Pepper Sexton NP [address] [place] [address] Scheduled Referrals Name Type Priority Associated Diagnoses Order Schedule Ambulatory referral to Vascular Surgery Outpatient Referral STAT Cellulitis of left lower extremity Left leg swelling Expected: 03/08/2025 (Approximate), Expires: 09/07/2025 documented as of this encounter Visit Diagnoses Diagnosis Cellulitis of left lower extremity- Primary Essential hypertension, benign Essential hypertension, benign Left leg swelling Morbid (severe) obesity due to excess calories ([facility]) Chronic bronchitis, unspecified chronic bronchitis type (HCC) Restless legs syndrome Restless legs syndrome (RLS) Atopic dermatitis, unspecified type documented in this encounter Care Teams Folder Taper Operator Relationship Specialty Start Date End Date Anastacio Hinojosa MD [address] [place] [address] PCP - General Family Medicine 11/26/23 Peppre Sexton NP [address] [place] [address] Nurse Practitioner Family Medicine 11/26/23 documented as of this encounter
[2025-03-17] VITALS (19 sets, daily range): BP systolic 150–185; BP diastolic 98–122; PULSE 68–88; TEMP 36.6; O2SAT 93–94; BMI 36.6
--- OUTSIDE RECORDS SUMMARY | 2025-03-17 11:24 | XMS_ITS | Encounter Summary ---
Author Organization [facility] Address [id number] [address] [place] [address] Care Team Providers Care Snuff Blender Name Role Phone JavierPepper rios Liam HENRY-SALES DEVELOPMENT CONSULTANT Primary Care Provider Encounter Details Date Type Department Care Team (Late st Contact Info) Description 05/10/2022 Orders Only [facility] [address] [place] [address] External, Scanning Provider Social History [...] [facility] [address] [place] [address] Robert Kumar MD [address], [address] [place] [address] documented as of this encounter Procedures Procedure Name Priority Date/Time Associated Diagnosis Comments ECHO COMPLETE WO CONTRAST Routine 02/27/2022 documented in this encounter Results * Echo complete W/O contrast (02/27/2022) Anatomical Region Laterality Modality Chest N/A Ultrasound us Scanning Provider External CV ECHO ORDERABLES Fi nal Result documented in this encounter Visit Diagnoses Not on filedocumented in this encounter Care Teams Snuff Blender Relationship Specialty Start Date End Date Pepper Sexton, CLOTH WIRE WEAVER-SALES DEVELOPMENT CONSULTANT PCP - General Nurse Practitioner 05/10/22 documented as of this encounter
--- OUTSIDE RECORDS SUMMARY | 2025-03-17 11:24 | XMS_ITS | Encounter Summary ---
Author Organization [facility] Address [address] [facility] [place] [address] Care Team Providers Care Clinical Massage Therapist Name Role Phone Anastacio Hinojosa MD Primary Care Provider [phone] Pepper Sexton AGRICULTURAL SERVICE WORKER Unavailable [phone] Encounter Details Date Type Department Care Team (Late st Contact Info) Description 03/08/2025 Abstract [facility] [address] [place] [address] Pepper Sexton, AGRICULTURAL SERVICE WORKER [address] [place] [address] Social History Tobacco Use Types Packs/Day Years [...] often do you attend chur ch or roman catholic services? Never 11/25/2023 Do you belong to any clubs o r organizations such as baptist groups, unions, fraternal or athletic groups, or [...] Recorded Patient Health Questionnaire-2 Score 0 11/26/2023 [facility] Occupat ional Health - Occupational [...] place to sleep or slept in a fci (including now)? No 11/25/2023 Sex and Gender [...] Visit [facility] [address] [place] [address] Pepper Sexton NP [address] [place] [address] documented as of this encounter Visit Diagnoses Not on filedocumented in this encounter Care Teams Clinical Massage Therapist Relationship Specialty Start Date End Date Anastacio Hinojosa MD [address] [place] [phone] PCP - General Family Medicine 11/26/23 Pepper Sexton NP [address] [place] [address] Nurse Practitioner Family Medicine 11/26/23 documented as of this encounter
--- OUTSIDE RECORDS SUMMARY | 2025-03-17 11:24 | XMS_ITS | Clinical Summary ---
Author Organization [facility] Healthcare Address [address] [place] [address] Care Team Providers Care Pharmacy Technologist Name Role Phone Anastacio Hinojosa MD Primary Care Provider [phone] Pepper Sexton NP Unavailable [phone] Allergies No known active allergies Medications [...] pain. 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 Atopic dermatitis 11/26/2023 Psoriasis 11/26/2023 Orthopedic hardware [...] of the risks of continued smoking: stroke, NC, all forms of cancer, lung disease, and [...] digit is numb at times and his engineering group leader is weak as well likely consistent with ulnar nerve process. 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 Carpal tunnel syndrome 02/02/202407/06 Overview (02/02/2024): Patient [...] scope with GI, has been off his PPI/[id number] for up coming EGD etc Continue with GI Assessment & Plan (05/04/2024 12:01 PM EDT): Did well on longterm PPI, however severe hypomagnesiumemia Would like to [...] Encounters Date Type Department Care Team Description 03/17/2025 Clinisync Result Encounter N[facility]S External Department Unsolicited Pepper Sexton NP 03/16/2025 Refill [facility] [address] [place] [phone] Pepper Sexton NP Atopic dermatitis, unspecified type 03/16/2025 Refill [facility] [address] [place] [address] Pepper Sexton NP Hypothyroidism, unspecified type ; Gastroesophageal reflux disease, unspecified whether esophagitis present; Essential hypertension, benign 03/15/2025 Telephone [facility] [address] [place] [address] Pepper Sexton NP 03/08/2025 8:20 AM EDT Office Visit [facility] [address] [place] [address] Pepper Sexton NP Cellulitis of left lower extremity (Primary Dx); Essential hypertension, benign ; Left leg swelling; Morbid (severe) obesity due to excess calories ([facility]); Chronic bronchitis, unspecified chronic bronchitis type (HCC); Restless legs syndrome; Atopic dermatitis, unspecified type 03/08/2025 Abstract [facility] [address] [place] [address] Pepper Sexton NP 03/08/2025 Bamboo flowsheet [facility] [address] [place] [address] Pepper Sexton NP 02/17/2025 4:15 PM EDT Office Visit [facility] [address] [place] [address] Pepper Sexton NP Cellulitis of left lower extremity (Primary Dx); Essential hypertension, benign ; Morbid (severe) obesity due to excess calories ([facility]); Hypomagnesemia; Cigarette nicotine dependence without complication; MARITZA (acute kidney injury); Left leg swelling 02/17/2025 Patient Outreach [facility] [address] [facility] [place] [address] Xiomara Garcia MA 02/10/2025 Orders Only [facility] [address] [place] [address] Angelo Morales MD 02/08/2025 Orders Only [facility] [address] [place] [address] Angelo Morales MD 02/07/2025 Clinisync Result Encounter NOMS External Department Unsolicited Provider, Generic External Data 01/06/2025 9:00 AM EDT Office Visit [facility] [address] [place] [address] Pepper Sexton NP Essential hypertension, benign (Primary Dx); Chronic kidney disease, stage 3a ([facility]); Gastro-esophageal reflux disease without esophagitis; Morbid (severe) obesity due to excess calories ([facility]); Mixed hyperlipidemia ; Hypomagnesemia; Screening for prostate cancer; Marijuana use; Hypothyroidism, unspecified type ; Fibromyalgia 01/06/2025 Bamboo flowsheet [facility] [address] [place] [address] Pepper Sexton NP from Last 3 Months [...] often do you attend chur ch or buddhist services? Never 11/25/2023 Do you belong to any clubs o r organizations such as yarsanism groups, unions, fraternal or athletic groups, or [...] Recorded Patient Health Questionnaire-2 Score 0 11/26/2023 [facility] [place] of Occupat ional Health - Occupational Stress [...] 04/07/2025 8:20 AM EDT Office Visit [facility] [address] [place] [address] Pepper Sexton NP [address] [place] [address] Health Maintenance Due Date Last Done Comments CT Colonography 1967 Colonoscopy 1967 FIT 1967 FOBT 1967 Sigmoidoscopy 1967 Colorectal Cancer Screening 08/11/2025 FIT-DNA 08/11/2025 08/11/2022 Influenza Vaccine Discontinued Procedures Procedure Name Priority Date/Time Associated Diagnosis Comments SRMCOH PROSTATE SPECIFIC ANTIGEN SCRN Routine 03/17/2025 9:07 AM EDT ALL MAGNESIUM Routine 03/17/2025 9:07 AM EDT ALL PHOSPHOROUS Routine 03/17/2025 9:07 AM EDT ALL THYROXINE (T4) FREE Routine 03/17/2025 9:07 AM EDT ALL THYROID STIM HORMONE Routine 03/17/2025 9:07 AM EDT ALL LIPID PROFILE (FASTING) Routine 03/17/2025 9:07 AM EDT [facility] CMP (CMP) (FOR REMOTE [facility]ICAL ACC[facility]OSPITAL USE) Routine 03/17/2025 9:07 AM EDT ALL CBC WITH AUTO DIFF Routine 03/17/2025 9:07 AM EDT TBH MICROALB CREAT RATIO RANDOM Routine 03/17/2025 8:58 AM EDT TBH URINE MICROSCOPIC ONLY Routine 03/17/2025 8:58 AM EDT TBH UA (CLEAN/CATCH) MICROSCOPIC IF INDICATE Routine 03/17/2025 8:58 AM EDT US EXTREMITY NONVASCULAR LIMITED Routine 02/10/2025 11:[address] LOWER EXTREMITY LEFT W AND WO IV CONTRAST Routine 02/10/2025 9:47 AM EDT US, RETROPERITNL ABD, LTD Routine 02/08/2025 12:06 PM EDT BLOOD CULTURE 2 Routine 02/07/2025 12:45 PM EDT BLOOD CULTURE 1 Routine 02/07/2025 12:02 PM EDT from Last 3 Months Results * [facility] (03/17/2025 9:07 AM EDT) PROSTATE SPECIFIC ANTIGEN SCRN 1.49 <=4.00 ng/mL TBH 03/17/2025 9:07 AM EDT 03/17/2025 9:08 AM EDT Narrative CLINISYNC - 03/17/2025 10:31 AM EDT Pepper Sexton NP CLINISYNC Final Result [facility] * (ABNORMAL) [facility] CMP (CMP) (FOR REMOTE CRITICAL ACCESS HOSPITAL USE) (03/17/2025 9:07 AM EDT) SODIUM 148(H) 136 - 145 mmol/L TBH POTASSIUM 3.4(L) 3.5 - 5.1 mmol/L TBH CHLORIDE 110(H) 98 - 107 mmol/L TBH CARBON DIOXIDE 27.9 21.0 - 32.0 mmol/L TBH ANION GAP 13.5 TBH GLUCOSE 134(H) 74 - 106 mg/dL TBH BLOOD UREA NITROGEN 11.0 7.0 - 18.0 mg/dL TBH CREATININE 1.23 0.70 - 1.30 mg/dL TBH TBH EGFR-AF URUGUAYAN >60 >=60 mL/min/1. 73m 2 TBH TBH EGFR-NON AF URUGUAYAN >60 >=60 mL/min/1. 73m 2 TBH BUN CREATININE RATIO 8.9 TBH CALCIUM 7.1(L) 8.5 - 10.1 mg/dL TBH BILIRUBIN TOTAL 0.5 0.2 - 1.0 mg/dL TBH ASPARTATE AMINO TRANSFERASE 15 15 - 37 U/L TBH ALANINE AMINOTRANSFERASE 29 16 - 63 U/L TBH ALKALINE PHOSPHATASE 133(H) 46 - 116 U/L TBH TOTAL PROTEIN 7.3 6.4 - 8.2 g/dL TBH ALBUMIN LEVEL 3.2(L) 3.4 - 5.0 g/dL TBH GLOBULIN 4.1 g/dL TBH ALBUMIN GLOBULIN RATIO 0.8 TBH 03/17/2025 9:07 AM EDT 03/17/2025 9:08 AM EDT Narrative CLINISYNC - 03/17/2025 9:31 AM EDT Pepper Sexton NP CLINISYNC Final Result Performing Organization Address [facility]/State/ZIP Co de Phone Number [facility] * ALL THYROXINE (T4) FREE (03/17/2025 9:07 AM EDT) FREE T4 0.98 0.76 - 1.46 ng/dL TB 03/17/2025 9:07 AM EDT 03/17/2025 9:08 AM EDT Narrative CLINISYNC - 03/17/2025 10:10 AM EDT Pepper Sexton NP CLINISYNC Final Result [facility] * ALL THYROID STIM HORMONE (03/17/2025 9:07 AM EDT) THYROID STIMULATING HORMONE 2.121 0.358 - 3.740 uIU/mL TBH 03/17/2025 9:07 AM EDT 03/17/2025 9:08 AM EDT Narrative CLINISYNC - 03/17/2025 9:48 AM EDT Pepper Sexton MEDICAL SECRETARY CLINISYNC Final Result Performing Organization Address [facility] Phone Number [facility] * ALL PHOSPHOROUS (03/17/2025 9:07 AM EDT) PHOSPHORUS 2.7 2.6 - 4.7 mg/dL TB 03/17/2025 9:07 AM EDT 03/17/2025 9:08 AM EDT Narrative CLINISYNC - 03/17/2025 10:24 AM EDT Generic External Data Provider CLINISYNC F inal Result Performing Organization Address [facility] Phone Number CLINISYKS TB * (ABNORMAL) ALL MAGNESIUM (03/17/2025 9:07 AM EDT) MAGNESIUM 0.2(LL) 1.8 - 2.4 mg/dL TB Comment:RESULTS CALLED TO TO JAVI GIBSON LPN 03/17/2025 9:07 AM EDT 03/17/2025 9:08 AM EDT Narrative CLINISYNC - 03/17/2025 10:24 AM EDT Generic External Data Provider CLINISYNC F inal Result Performing Organization Address [facility] Phone Number [facility] * (ABNORMAL) ALL LIPID PROFILE (FASTING) (03/17/2025 9:07 AM EDT) TRIGLYCERIDES 215(H) <=150 mg/dL TBH CHOLESTEROL 173 <=200 mg/dL TBH HDL CHOLESTEROL 38(L) 40 - 60 mg/dL TB Comment: > or =60 mg/dl - LOW CARDIOVASCULAR RISK <40 mg/dl - HIGH CARDIOVASCULAR RISK LDL CHOLESTEROL CALCULATED 92.0 mg/dL TB Comment: <100 mg/dl OPTIMAL 100-129 mg/dl NEAR OR ABOVE OPTIMAL 130-159 mg/dl BORDERLINE HIGH 160-189 mg/dl HIGH >190 mg/dl VERY HIGH VLDL CHOLESTEROL 43.0 mg/dL TBH CHOL HDL RATIO 4.6 TB Comment: 3.3 - 4.4 LOW RISK 4.4 - 7.1 AVERAGE RISK 7.1 - 11.0 MODERATE RISK >11.0 HIGH RISK 03/17/2025 9:07 AM EDT 03/17/2025 9:08 AM EDT Narrative CLINISYNC - 03/17/2025 9:48 AM EDT us Pepper Sexton NP CLINISYNC Final Result CLINISYNC [facility] * (ABNORMAL) ALL CBC WITH AUTO DIFF (03/17/2025 9:07 AM EDT) TB WBC 9.1 4.0 - 11.0 10 3/uL TBH TBH RBC 3.93(L) 4.70 - 6.10 10 6/uL TBH TBH HGB 12.5(L) 14.0 - 18.0 g/dL TBH TBH HCT 38.3(L) 42.0 - 54.0 % TBH TBH MCV 97.5(H) 80.0 - 94.0 fL TBH TBH MCH 31.8 25.9 - 34.0 pg TBH TBH MCHC 32.6 29.9 - 35.2 g/dL TBH TBH RDW 15.0 11.0 - 15.0 % TBH TBH PLT 277 150 - 450 10 3/uL TBH TBH MPV 9.8 9.5 - 13.5 fL TBH NEUTROPHILS PERCENT AUTO 63.9 43.0 - 75.0 % TBH LYMPHOCYTES PERCENT AUTO 20.4(L) 20.5 - 60.0 % TBH MONOCYTES PERCENT AUTO 5.2 1.7 - 12.0 % TBH TBH EO % 9.5(H) 0.9 - 7.0 % TBH BASOPHILS PERCENT AUTO 0.7 0.2 - 2.0 % TBH IMMATURE GRANULOCYTES PCT AUTO 0.3 0.0 - 0.5 % TBH NEUTROPHILS ABSOLUTE AUTO 5.8 1.4 - 6.5 10 3/uL TBH LYMPHOCYTES ABSOLUTE AUTO 1.9 1.2 - 3.8 10 3/uL TBH MONOCYTES ABSOLUTE AUTO 0.5 0.3 - 0.8 10 3/uL TBH TBH EO # 0.9(H) 0.0 - 0.7 10 3/uL TBH BASOPHILS ABSOLUTE AUTO 0.1 0.0 - 0.1 10 3/uL TBH IMMATURE GRANULOCYTES ABS AUTO 0.03 0.00 - 0.03 10 3/uL TBH 03/17/2025 9:07 AM EDT 03/17/2025 9:08 AM EDT Narrative CLINISYNC - 03/17/2025 9:14 AM EDT Pepper Sexton NP CLINISYNC Final Result Performing Organization Address [facility] Phone Number CL[facility]IS[facility]NC TBH * (ABNORMAL) TBH URINE MICROSCOPIC ONLY (03/17/2025 8:58 AM EDT) TBH WBC 5-10(A) NONE SEEN #/HPF TBH TBH RBC 0-2 0 - 2 #/HPF TBH BACTERIA URINE TRACE(A) NONE SEEN #/HPF TBH MUCUS URINE LARGE(A) NONE SEEN TBH SQUAMOUS EPITHELIAL CELL URINE FEW(A) NONE/RARE #/LPF TBH CRYSTALS SEEN? None Seen None Seen #/HPF TBH CAST SEEN? SEEN(A) NONE SEEN #/LPF TBH HYALINE CASTS URINE FEW TBH FINE GRANULAR CASTS URINE RARE TBH 03/17/2025 8:58 AM EDT 03/17/2025 9:08 AM EDT Narrative CLINISYNC - 03/17/2025 9:25 AM EDT Pepper Sexton NP CLINISYNC Final Result Performing Organization Address [facility] Co de Phone Number CLINISYNC TBH * (ABNORMAL) TBH UA (CLEAN/CATCH) MICROSCOPIC IF INDICATE (03/17/2025 8:58 AM EDT) COLOR URINE YELLOW YELLOW TBH CLARITY URINE CLEAR CLEAR TBH SPECIFIC GRAVITY URINE 1.025 1.005 - 1.025 TBH PH URINE 6.0 5.0 - 9.0 TBH PROTEIN URINE 30(A) NEG/TRACE mg/dL TBH GLUCOSE URINE UA NEGATIVE NEGATIVE mg/dL TBH BILIRUBIN URINE NEGATIVE NEGATIVE TBH KETONES URINE NEGATIVE NEGATIVE mg/dL TBH BLOOD URINE NEGATIVE NEGATIVE TBH NITRITE URINE NEGATIVE NEGATIVE TBH UROBILINOGEN URINE 0.2 0.2 - 1.0 EU/dL TBH LEUKOCYTE ESTERASE URINE NEGATIVE NEGATIVE TBH URINE MICROSCOPIC INDICATED YES TBH 03/17/2025 8:58 AM EDT 03/17/2025 9:08 AM EDT Narrative CLINISYNC - 03/17/2025 9:25 AM EDT us Pepper Sexton NP CLINISYNC Final Result Performing Organization Address [facility] Co de Phone Number CLINISYNC TB * (ABNORMAL) TBH MICROALB CREAT RATIO RANDOM (03/17/2025 8:58 AM EDT) MICROALBUMIN URINE RANDOM 5.3 <=30.0 mg/dL TBH CREATININE URINE RANDOM 345.39(H) 20.00 - 300.00 mg/dL TBH MICROALBUM CREATININE RATIO UR 15.3 0.0 - 29.9 mg/g TBH Comment: NO MICROALBUMINURIA 0-29 MG/G CLINICAL MICROALBUMINURIA 30-300 MG/G MACROALBUMINURIA >300 MG/G 03/17/2025 8:58 AM EDT 03/17/2025 9:08 AM EDT Narrative CLINISYNC - 03/17/2025 9:48 AM EDT us Pepper Sexton NP CLINISYNC Final Result Performing Organization Address [facility]/ZIP Co de Phone Number CLINISYNC TB * US EXTREMITY NONVASCULAR LIMITED (02/10/2025 11:31 [...] DAYS.^NO GROWTH AT 5 DAYS. TB 02/07/2025 12:4 5 PM EDT 02/07/2025 12:47 PM EDT Narrative [facility] - 02/12/2025 2:11 PM EDT RIGHT AC Generic External Data Provider LAB BLOOD ORDERAB LES Final Result Performing Organization Address [facility]/ZIP Co de Phone Number [facility] * BLOOD CULTURE 1 (02/07/2025 12:02 PM EDT) BLOOD CULTURE 1 Blood Culture 1 NG5D NO GROWTH AT 5 DAYS.^NO GROWTH AT 5 DAYS. [facility] 02/07/2025 12:0 2 PM EDT 02/07/2025 12:38 PM EDT N[facility]ative [facility] 02/12/2025 2:11 PM EDT LEFT FOREARM Generic External Data Provider LAB BLOOD ORDERAB LES Final Result Performing Organization Address [facility]/ZIP Co de Phone Number [facility] from Last 3 Months Insurance Care Teams Pharmacy Technologist Relationship Specialty Start Date End Date Anastacio Hinojosa MD [address] [place] [address] PCP - General Family Medicine 11/26/23 Pepper Sexton NP [address] [place] [address] Nurse Practitioner Family Medicine 11/26/23
--- OUTSIDE RECORDS SUMMARY | 2025-03-17 11:24 | XMS_ITS | Encounter Summary ---
Author Organization [facility] Address [address] [facility] [place] [address] Care Team Providers Care Inspector Heating And Refrigeration Name Role Phone Anastacio Hinojosa MD Primary Care Provider [phone] Pepper Sexton DAM ATTENDANT Unavailable [phone] Encounter Details Date Type Department Care Team ([facility] st Contact Info) Description 02/10/2025 Orders Only [facility] [address] [place] [phone] Angelo Morales MD [address] [place] [address] Social History Tobacco Use Types [...] often do you attend chur ch or temple services? Never 11/25/2023 Do you belong to any clubs o r organizations such as zoroastrian groups, unions, fraternal or athletic groups, or [...] Recorded Patient Health Questionnaire-2 Score 0 11/26/2023 [facility] of Occupat ional Health - [...] place to sleep or slept in a group home (including now)? No 11/25/2023 Sex and [...] [facility] [address] [place] [address] Pepper Sexton NP [address] [place] [address] documented as of this encounter Procedures Procedure [...] on filedocumented in this encounter Care Teams Inspector Heating And Refrigeration Relationship Specialty Start Date End Date Anastacio Hinojosa MD [address] [place] [address] PCP - General Family Medicine 11/26/23 Pepper Sexton NP [address] [place] [address] Nurse Practitioner Family Medicine 11/26/23 documented as of this encounter
--- OUTSIDE RECORDS SUMMARY | 2025-03-17 11:24 | XMS_ITS | Clinical Summary ---
Author Organization [facility] Address [address] [place] [address] Care Team Providers Care Tours Captain Name Role Phone Unavailable Primary Care Provider [...]
--- OUTSIDE RECORDS SUMMARY | 2025-03-17 11:24 | XMS_ITS | Encounter Summary ---
Author Organization [facility] Address [address] [facility] [place] [address] Care Team Providers Care Public Health Sanitarian Name Role Phone Anastacio Hinojosa MD Primary Care Provider [phone] Pepper Sexton RUSSIAN LANGUAGE PROFESSOR Unavailable [phone] Encounter Details Date Type Department Care Team (Late st Contact Info) Description 03/15/2025 [facility] [address] [place] [address] Pepper Sexton, REMBERTO [address] [place] [address] Social History Tobacco Use Types Packs/Day Years [...] any clubs o r organizations such as gnosticist groups, unions, fraternal or athletic groups, or [...] Recorded Patient Health Questionnaire-2 Score 0 11/26/2023 [facility] of Occupat ional Health - Occupational [...] place to sleep or slept in a jail (including now)? No 11/25/2023 Sex and Gender Information Value Date Recorded Sex Assigned at Not on file Legal Sex Male 11:33 PM EDT Gender Identity Not on file Sexual Orientation Not on file documented as of this encounter Miscellaneous Notes * Telephone Encounter - IRENE BOOTH - 03/15/2025 11:22 AM EDT Text Fitness Technician Hi, I am calling from [employer]. I am calling on behalf of 1 of your patients,Abram Hui, I am trying to obtain some contact information regarding his case with us. If you can please just give me a call at [phone]. The reference case number is [id number]. Thank you so much and looking forward to speaking to you. Have a good day. documented in this encounter Plan of Treatment Upcoming Encounters Date Type Department Care Team (Late st Contact Info) Description 04/07/2025 8:20 AM EDT Office Visit [facility] [address] [place] [address] Pepper Sexton NP [address] [place] [address] documented as of this encounter Visit Diagnoses Not on filedocumented in this encounter Care Teams Public Health Sanitarian Relationship Specialty Start Date End Date Anastacio Hinojosa MD [address] [place] [address] PCP - General Family Medicine 11/26/23 Pepper Sexton NP [address] [place] [address] Nurse Practitioner Family Medicine 11/26/23 documented as of this encounter
--- OUTSIDE RECORDS SUMMARY | 2025-03-17 11:24 | XMS_ITS | Encounter Summary ---
Author Organization [facility] Address [address] [place] [address] Care Team Providers Care Clinical Physician Assistant Name Role Phone Anastacio Hinojosa MD Primary Care Provider [phone] Pepper Sexton FRONT DESK AGENT Unavailable [phone] Pepper Sexton FRONT DESK AGENT Unavailable [phone] Encounter Details Date Type Department Care Team ([facility] st Contact Info) Description 07/09/2024 Orders Only [facility] [address] [place] [address] James Elaine MD [address] [address] [place] [address] Social History Tobacco Use Types Packs/Day Years [...] any clubs o r organizations such as mosque groups, unions, fraternal or athletic groups, or [...] Recorded Patient Health Questionnaire-2 Score 0 11/26/2023 [facility] of Occupat ional Health - Occupational [...] Office Visit [facility] [address] [place] [address] Pepper Sexton NP [address] [place] [address] documented as of this encounter Procedures Procedure Name Priority Date/Time Associated Diagnosis Comments SCANNED LABS Routine 07/09/2024 1:15 PM EDT documented in this encounter Results * SCANNED LABS (07/09/2024 1:15 PM EDT) James Elaine MD LAB CHG PERFORMABLES Final Resul t documented in this encounter Visit Diagnoses Not on filedocumented in this encounter Care Teams Clinical Physician Assistant Relationship Specialty Start Date End Date Anastacio Hinojosa MD [address] [place] [address] PCP - General Family Medicine 11/26/23 Pepper Sexton NP [address] [place] [address] PCP - [place] [employer] 04/23/24 Pepper Sexton NP [address] [place] [address] Nurse Practitioner Family Medicine 11/26/23 documented as of this encounter
--- OUTSIDE RECORDS SUMMARY | 2025-03-17 11:24 | XMS_ITS | Encounter Summary ---
Author Organization [facility] Address [address] [place] [address] Care Team Providers Care Seismometer Operator Name Role Phone Anastacio Hinojosa MD Primary Care Provider [phone] Pepper Sexton BOAT DESIGNER Unavailable [phone] Reason for Visit * Reason Comments Med Refill Encounter Details Date Type Department Care Team (Late st Contact Info) Description 03/16/2025 Refill [facility] [address] [place] [address] Pepper Sexton BOAT DESIGNER [address] [place] [address] Atopic dermatitis, unspecified type Social History Tobacco [...] often do you attend chur ch or zoroastrianism services? Never 11/25/2023 Do you belong to any clubs o r organizations such as oriental orthodox groups, unions, fraternal or athletic groups, or [...] place to sleep or slept in a correction (including now)? No 11/25/2023 Sex and Gender [...] Office Visit [facility] [address] [place] [address] Pepper Sexton NP [address] [place] [address] documented as of this encounter Visit Diagnoses Diagnosis Atopic dermatitis, unspecified type documented in this encounter Care Teams Seismometer Operator Relationship Specialty Start Date End Date Anastacio Hinojosa MD [address] [place] [address] PCP - General Family Medicine 11/26/23 Pepper Sexton NP [address] [place] [address] Nurse Practitioner Family Medicine 11/26/23 documented as of this encounter
--- OUTSIDE RECORDS SUMMARY | 2025-03-17 11:24 | XMS_ITS | Encounter Summary ---
Author Organization [id number] [address] [place] [address] Care Team Providers Care Chief Hospital Administrator Name Role Phone Pepper Sexton CARL-ASSOCIATE JUSTICE Primary Care Provider Encounter Details Date Type Department Care Team (Late st Contact Info) Description 08/28/2022 Orders Only [facility] [address] [place] [phone] Ref Prov, [place] [address] Social History Tobacco Use Types Packs/Day Years [...] AM EDT Office Visit [facility] [place] [address] Robert Kumar MD [address], [address] [address] documented as of this encounter Procedures Procedure [...] on filedocumented in this encounter Care Teams Chief Hospital Administrator Relationship Specialty Start Date End Date Pepper Sexton, DX BOARD OPERATOR-ASSOCIATE JUSTICE PCP - General Nurse Practitioner 05/10/22 documented as of this encounter
--- OUTSIDE RECORDS SUMMARY | 2025-03-17 11:24 | XMS_ITS | Encounter Summary ---
Author Organization [facility] Address [address] [facility] [place] [address] Care Team Providers Care Labor Contract Analyst Name Role Phone Anastacio Hinojosa MD Primary Care Provider [phone] Pepper Sexton LEAD RADIOLOGIC TECHNOLOGIST Unavailable [phone] Encounter Details Date Type Department Care Team (Late st Contact Info) Description 03/08/2025 Bamboo flowsheet [facility] [address] [place] [address] Pepper Sexton, LEAD RADIOLOGIC TECHNOLOGIST [address] [place] [address] Social History Tobacco Use Types Packs/Day Years [...] any clubs o r organizations such as congregation groups, unions, fraternal or athletic groups, or [...] Questionnaire-2 Score 0 11/26/2023 [facility] of Occupat ional Health - Occupational [...] place to sleep or slept in a intermediate (including now)? No 11/25/2023 Sex and Gender [...] Visit [facility] [address] [place] [address] Pepper Sexton NP [address] [place] [address] documented as of this encounter Visit Diagnoses Not on filedocumented in this encounter Care Teams Labor Contract Analyst Relationship Specialty Start Date End Date Anastacio Hinojosa MD [address] [place] [address] PCP - General Family Medicine 11/26/23 Pepper Sexton NP [address] [place] [address] Nurse Practitioner Family Medicine 11/26/23 documented as of this encounter
--- OUTSIDE RECORDS SUMMARY | 2025-03-17 11:24 | XMS_ITS | Encounter Summary ---
Author Organization [facility] Address [address] [place] [address] Care Team Providers Care Ripening Room Operator Name Role Phone Anastacio Hinojosa MD Primary Care Provider [phone] Pepper Sexton POWERHOUSE ENGINEER Unavailable [phone] Reason for Visit * Reason Comments Med Refill Encounter Details Date Type Department Care Team (Late st Contact Info) Description 03/16/2025 Refill [facility] [address] [place] [address] Pepper Sexton POWERHOUSE ENGINEER [address] [place] [address] Hypothyroidism, unspecified type ; Gastroesophageal reflux disease, [...] Recorded Patient Health Questionnaire-2 Score 0 11/26/2023 [facility] - Occupational Stress Questionnaire Answer Date [...] place to sleep or slept in a usp (including now)? No 11/25/2023 Sex and Gender [...] Office Visit [facility] [address] [place] [address] Pepper Sexton NP [address] [place] [address] documented as of this encounter Visit Diagnoses Diagnosis Hypothyroidism, unspecified type Gastroesophageal reflux disease, unspecified whether esophagitis present Essential hypertension, benign Essential hypertension, benign documented in this encounter Care Teams Ripening Room Operator Relationship Specialty Start Date End Date Anastacio Hinojosa MD [address] [place] [address] PCP - General Family Medicine 11/26/23 Pepper Sexton NP [address] [place] [address] Nurse Practitioner Family Medicine 11/26/23 documented as of this encounter
--- OUTSIDE RECORDS SUMMARY | 2025-03-17 11:25 | XMS_ITS | Encounter Summary ---
Author Organization [facility] Address [address] [facility] [place] [address] Care Team Providers Care Antique Jewelry Repairer Name Role Phone Anastacio Hinojosa MD Primary Care Provider [phone] Pepper Sexton OTOLARYNGOLOGY TEACHER Unavailable [phone] Encounter Details Date Type Department Care Team ([facility] st Contact Info) Description 02/08/2025 [facility] [address] [facility] [address] Angelo Morales MD [address] [place] [address] Social History Tobacco Use Types [...] often do you attend chur ch or shinto services? Never 11/25/2023 Do you belong to [...] Recorded Patient Health Questionnaire-2 Score 0 11/26/2023 [facility] of Occupat ional Health - Occupational Stress [...] place to sleep or slept in a long-term (including now)? No 11/25/2023 Sex and Gender [...] Visit [facility] [address] [place] [address] Pepper Sexton NP [address] [place] [address] documented as of this encounter Procedures Procedure Name Priority Date/Time Associated Diagnosis Comments US, RETROPERITNL ABD, LTD Routine 2024 12:06 PM EDT documented in this encounter Results * Retroperitoneal Ultrasound, Abdomen Ltd (02/08/2025 12:06 PM EDT) us Angelo Morales MD IN CLINIC/BEDSIDE ORDERABLES Fi nal Result documented in this encounter Visit Diagnoses Not on filedocumented in this encounter Care Teams Antique Jewelry Repairer Relationship Specialty Start Date End Date Anastacio Hinojosa MD [address] [place] [address] PCP - General Family Medicine 11/26/23 Pepper Sexton NP [address] [place] [address] Nurse Practitioner Family Medicine 11/26/23 documented as of this encounter
--- OUTSIDE RECORDS SUMMARY | 2025-03-17 11:25 | XMS_ITS | Encounter Summary ---
Author Organization [facility] [employer] Address [id number] [address] [place] [address] Care Team Providers Care Football Coach Name Role Phone Pepper Sexton CARL-APPLICATION SUPPORT Primary Care Provider Encounter Details Date Type Department Care Team (Late Contact Info) Description 02/05/2022 Orders Only [facility] [address] [place] [address] Ref Prov, [place] [address] Social History Tobacco Use Types Packs/Day Years [...] AM EDT Office Visit [facility] [address] [place] [address] Robert Kumar MD [address], [facility] [address] [place] [address] documented as of this encounter Procedures Procedure [...] on filedocumented in this encounter Care Teams Football Coach Relationship Specialty Start Date End Date Pepper Sexton, SPOOL SALVAGER-APPLICATION SUPPORT PCP - General Nurse Practitioner 05/10/22 documented as of this encounter
--- OUTSIDE RECORDS SUMMARY | 2025-03-17 11:25 | XMS_ITS | Encounter Summary ---
Author Organization [facility] Address [address] [place] [address] Care Team Providers Care Railways Assistant Name Role Phone Anastacio Hinojosa MD Primary Care Provider [phone] Pepper Sexton CARTRIDGE FEEDER Unavailable [phone] Pepper Sexton CARTRIDGE FEEDER Unavailable [phone] Encounter Details Date Type Department Care Team (Late st Contact Info) Description 2024 Abstract [facility] [address] [place] [address] Pepper Sexton NP [address] [place] [address] Social History Tobacco Use Types Packs/Day Years [...] often do you attend chur ch or alevism services? Never 11/25/2023 Do you belong to [...] Recorded Patient Health Questionnaire-2 Score 0 11/26/2023 [facility] of Occupat ional Health - [...] place to sleep or slept in a long term (including now)? No 11/25/2023 Sex and Gender [...] Office Visit [facility] [address] [place] [address] Pepper Sexton NP [address] [place] [address] documented as of this encounter Visit Diagnoses Not on filedocumented in this encounter Care Teams Railways Assistant Relationship Specialty Start Date End Date Anastacio Hinojosa MD [address] [place] [address] PCP - General Family Medicine 11/26/23 Pepper Sexton NP [address] [place] [address] PCP - [place] [employer] 04/23/24 Pepper Sexton NP [address] [place] [address] Nurse Practitioner Family Medicine 11/26/23 documented as of this encounter
--- OUTSIDE RECORDS SUMMARY | 2025-03-17 11:25 | XMS_ITS | Encounter Summary ---
Author Organization [facility] Address [address] [place] [address] Care Team Providers Care Tnt Line Supervisor Name Role Phone Anastacio Hinojosa MD Primary Care Provider [phone] Pepper Sexton GAS ENGINE OPERATOR Unavailable [phone] Pepper Sexton GAS ENGINE OPERATOR Unavailable [phone] Encounter Details Date Type Department Care Team (Late st Contact Info) Description 10/06/2024 Orders Only [facility] [address] [place] [address] James Elaine MD [address] [place] [address] Social History Tobacco Use Types Packs/Day Years [...] often do you attend chur ch or congregation services? Never 11/25/2023 Do you belong to any clubs o r organizations such as restoration groups, unions, fraternal or athletic groups, or [...] Recorded Patient Health Questionnaire-2 Score 0 11/26/2023 [facility] of Occupat ional Health [...] Office Visit [facility] [address] [place] [address] Pepper Sexton NP [address] [place] [address] documented as of this encounter Procedures Procedure Name Priority Date/Time Associated Diagnosis Comments SCANNED LABS Routine 10/06/2024 10:55 AM EST documented in this encounter Results * SCANNED LABS (10/06/2024 10:55 AM EST) James Elaine MD LAB CHG PERFORMABLES Final Resul t documented in this encounter Visit Diagnoses Not on filedocumented in this encounter Care Teams Tnt Line Supervisor Relationship Specialty Start Date End Date Anastacio Hinojosa MD [address] [place] [address] PCP - General Family Medicine 11/26/23 Pepper Sexton NP [address] [place] [address] PCP - [place] [employer] 04/23/24 Pepper Sexton NP [address] [place] [address] Nurse Practitioner Family Medicine 11/26/23 documented as of this encounter
--- OUTSIDE RECORDS SUMMARY | 2025-03-17 11:25 | XMS_ITS | Referral Summary ---
Author Organization [facility] Address [address] [place] [address] Care Team Providers Care Route Delivery Service Driver Name Role Phone Delmer Bryan MD Primary Care Provider [phone] Social History Tobacco Use Types Packs/Day Years Used Date Smoking Tobacco: Never Assessed [place] Safety & Environment Answer Date Rec orded [...] Plan of Treatment Not on file Insurance [facility] Care Teams Route Delivery Service Driver Relationship Specialty Start Date End Date Delmer Bryan MD [address] [place] [address] PCP - General 05/14/22
--- OUTSIDE RECORDS SUMMARY | 2025-03-17 11:25 | XMS_ITS | Encounter Summary ---
Author Organization [facility] Address [address] [place] [address] Care Team Providers Care Cyber Forensic Specialist Name Role Phone Anastacio Hinojosa MD Primary Care Provider [phone] Pepper Sexton DARK ROOM ATTENDANT Unavailable [phone] Pepper Sexton DARK ROOM ATTENDANT Unavailable [phone] Encounter Details Date Type Department Care Team (Late st Contact Info) Description 03/02/2024 Orders Only [facility] [address] [place] [address] Pepper Sexton NP [address] [place] [address] Social History Tobacco Use Types Packs/Day Years [...] often do you attend chur ch or jew services? Never 11/25/2023 Do you belong to any clubs o r organizations such as yazidi groups, unions, fraternal or athletic groups, or [...] Recorded Patient Health Questionnaire-2 Score 0 11/26/2023 [facility] of Occupat ional Health - Occupational [...] place to sleep or slept in a [place] (including now)? No 11/25/2023 Sex and Gender [...] Office Visit [facility] [address] [place] [address] Pepper Sexton NP [address] [place] [address] documented as of this encounter Procedures Procedure Name Priority Date/Time Associated Diagnosis Comments ELECTROCARDIOGRAM REPORT Routine 024 8:16 AM EDT documented in this encounter Results * Electrocardiogram Report (02/27/2024 8:16 AM EDT) us Pepper Sexton NP IN CLINIC/BEDSIDE ORDERABLES Fi nal Result documented in this encounter Visit Diagnoses Not on filedocumented in this encounter Care Teams Cyber Forensic Specialist Relationship Specialty Start Date End Date Anastacio Hinojosa MD [address] [place] [address] PCP - General Family Medicine 11/26/23 Pepper Sexton NP [address] [place] [address] PCP - [facility] [employer] 04/23/24 Pepper Sexton NP [address] [place] [address] Nurse Practitioner Family Medicine 11/26/23 documented as of this encounter
--- OUTSIDE RECORDS SUMMARY | 2025-03-17 11:25 | XMS_ITS | Encounter Summary ---
Author Organization [facility] Address [address] [place] [address] Care Team Providers Care Block Cuber Name Role Phone Shaikh MITZI De La Paz Primary Care Provider [phone] Anastacio Hinojosa MD Primary Care Provider [phone] Pepper Sexton RESERVATIONS SALES AGENT Unavailable [phone] Pepper Sexton NP Unavailable [phone] Encounter Details Date Type Department Care Team (Late st Contact Info) Description 09/22/2023 Abstract [facility] [address] [place] [address] Pepper Sexton NP [address] [place] [address] Social History Tobacco Use Types Packs/Day Years [...] 04/07/2025 8:20 AM EDT Office Visit [facility] [address] [place] [address] Pepper Sexton NP [address] [place] [address] documented as of this encounter Visit Diagnoses Not on filedocumented in this encounter Care Teams Block Cuber Relationship Specialty Start Date End Date Shaikh De La Paz MD PCP - General Internal Medicine 04/04/23 11/25/23 Anastacio Hinojosa MD [address] [place] [address] PCP - General Family Medicine 11/26/23 Pepper Sexton NP [address] [place] [address] PCP - [facility] 04/23/24 Pepper Sexton NP [address] [place] [address] Nurse Practitioner Family Medicine 11/26/23 documented as of this encounter
--- OUTSIDE RECORDS SUMMARY | 2025-03-17 11:25 | XMS_ITS | Encounter Summary ---
Author Organization [facility] Address [address] [place] [address] Care Team Providers Care Director Traffic And Planning Name Role Phone Shaikh MITZI De La Paz Primary Care Provider [phone] Anastacio Hinojosa MD Primary Care Provider [phone] Pepper Sexton NP Unavailable [phone] Pepper Sexton NP Unavailable [phone] Reason for Visit * Reason Comments Med Refill Encounter Details Date Type Department Care Team (Late st Contact Info) Description 11/12/2023 Refill [facility] [address] [place] [address] Pepper Sexton NP [address] [place] [address] Restless legs syndrome Social History Tobacco Use [...] [facility] [address] [place] [address] Pepper Sexton NP [address] [place] [address] documented as of this encounter Visit Diagnoses Diagnosis Restless legs syndrome Restless legs syndrome (RLS) documented in this encounter Care Teams Director Traffic And Planning Relationship Specialty Start Date End Date Shaikh De La Paz MD PCP - General Internal Medicine 04/04/23 11/25/23 Anastacio Hinojosa MD [address] [place] [address] PCP - General Family Medicine 11/26/23 Pepper Sexton NP [address] [place] [address] PCP - [place] [employer] 04/23/24 Pepper Sexton NP [address] [place] [address] Nurse Practitioner Family Medicine 11/26/23 documented as of this encounter
--- OUTSIDE RECORDS SUMMARY | 2025-03-17 11:25 | XMS_ITS | Encounter Summary ---
Author Organization [facility] Address [address] [place] [address] Care Team Providers Care Traffic Worker Name Role Phone Anastacio Hinojosa MD Primary Care Provider [phone] Pepper Sexton NEONATOLOGIST Unavailable [phone] Pepper Sexton NEONATOLOGIST Unavailable [phone] Encounter Details Date Type Department Care Team (Late st Contact Info) Description 02/25/2024 Orders Only [facility] [address] [place] [address] Pepper Sexton NP [address] [place] [address] Social History Tobacco Use Types Packs/Day Years [...] often do you attend chur ch or religion services? Never 11/25/2023 Do you belong to [...] Recorded Patient Health Questionnaire-2 Score 0 11/26/2023 [facility] of Occupat ional Health - Occupational [...] place to sleep or slept in a fdc (including now)? No 11/25/2023 Sex and Gender [...] Visit [facility] [address] [place] [address] Pepper Sexton NP [address] [place] [address] documented as of this encounter Procedures Procedure [...] on filedocumented in this encounter Care Teams Traffic Worker Relationship Specialty Start Date End Date Anastacio Hinojosa MD [address] [place] [address] PCP - General Family Medicine 11/26/23 Pepper Sexton NP [address] [place] [address] PCP - [address] [employer] 04/23/24 Pepper Sexton NP [address] [place] [address] Nurse Practitioner Family Medicine 11/26/23 documented as of this encounter
--- OUTSIDE RECORDS SUMMARY | 2025-03-17 11:25 | XMS_ITS | Clinical Summary ---
Author Organization [facility] tem Address [id number] [address] [place] [address] Care Team Providers Care Document Management Technician Name Role Phone Pepper Sexton APRN-DISTRIBUTION ASSOCIATE Primary Care Provider Allergies No known active [...] AM EDT Office Visit [facility] [place] [address] [place] [address] Robert Kumar MD [address], [address] [address] Health Maintenance Due Date Last Done Comments [...] 11:22 AM 12/16/2021 5:00 PM Care Teams Document Management Technician Relationship Specialty Start Date End Date Pepper Sexton, PACKER FUSER-DISTRIBUTION ASSOCIATE PCP - General Nurse Practitioner 05/10/22
--- OUTSIDE RECORDS SUMMARY | 2025-03-17 11:25 | XMS_ITS | Clinical Summary ---
Author Organization [facility] Address [address] [place] [address] Care Team Providers Care Senior Developer Name Role Phone Delmer Bryan MD Primary Care Provider [phone] Social History Tobacco Use Types Packs/Day Years Used Date Smoking Tobacco: Never Assessed [place] Safety & Environment Answer Date Rec orded [...] Insurance [facility] Care Teams Senior Developer Relationship Specialty Start Date End Date Delmer Bryan MD [address] [facility] [place] [address] PCP - General 05/14/22
--- OUTSIDE RECORDS SUMMARY | 2025-03-17 11:25 | XMS_ITS | Encounter Summary ---
Author Organization [facility] Address [address] [place] [address] Care Team Providers Care Locker Operator Name Role Phone Anastacio Hinojosa MD Primary Care Provider [phone] Pepper Sexton CANCER CENTER DIRECTOR Unavailable [phone] Pepper Sexton CANCER CENTER DIRECTOR Unavailable [phone] Encounter Details Date Type Department Care Team (Late st Contact Info) Description 11/26/2024 Abstract [facility] [address] [place] [address] Pepper Sexton NP [address] [place] [address] Social History Tobacco Use Types Packs/Day Years [...] often do you attend chur ch or christian services? Never 11/25/2023 Do you belong to [...] Patient Health Questionnaire-2 Score 0 11/26/2023 [facility] of Occupat ional Health - [...] Office Visit [facility] [address] [place] [address] Pepper Sexton NP [address] [place] [address] documented as of this encounter Visit Diagnoses Not on filedocumented in this encounter Care Teams Locker Operator Relationship Specialty Start Date End Date Anastacio Hinojosa MD [address] [place] [address] PCP - General Family Medicine 11/26/23 Pepper Sexton NP [address] [place] [address] PCP - [place] [employer] 04/23/24 Pepper Sexton NP [address] [place] [address] Nurse Practitioner Family Medicine 11/26/23 documented as of this encounter
--- OUTSIDE RECORDS SUMMARY | 2025-03-17 11:25 | XMS_ITS | Encounter Summary ---
Author Organization [facility] Address [address] [place] [address] Care Team Providers Care Blood Tester Name Role Phone Anastacio Hinojosa MD Primary Care Provider [phone] Pepper Sexton PERSONAL LINES SALES REP Unavailable [phone] Encounter Details Date Type Department Care Team (Late st Contact Info) Description 03/17/2025 Clinisync Result Encounter [facility] External Department Unsolicited Pepper Sexton, REMBERTO [address] [place] [address] Social History Tobacco Use Types Packs/Day Years [...] often do you attend chur ch or mandaen services? Never 11/25/2023 Do you belong to any clubs o r organizations such as zoroastrianism groups, unions, fraternal or athletic groups, or [...] Recorded Patient Health Questionnaire-2 Score 0 11/26/2023 [facility] [place] [facility] Occupat ional Health - Occupational Stress [...] 04/07/2025 8:20 AM EDT Office Visit [facility] [address] [place] [address] Pepper Sexton, REMBERTO [address] [place] [address] documented as of this encounter Procedures Procedure Name Priority Date/Time Associated Diagnosis Comments SRMCOH PROSTATE SPECIFIC ANTIGEN SCRN Routine 03/17/2025 9:07 AM EDT [facility] CMP (CMP) (FOR REMOTE [facility] USE) Routine 03/17/2025 9:07 AM EDT ALL THYROXINE (T4) FREE Routine 03/17/2025 9:07 AM EDT ALL THYROID STIM HORMONE Routine 03/17/2025 9:07 AM EDT ALL PHOSPHOROUS Routine 03/17/2025 9:07 AM EDT ALL MAGNESIUM Routine 03/17/2025 9:07 AM EDT ALL LIPID PROFILE (FASTING) Routine 03/17/2025 9:07 AM EDT ALL CBC WITH AUTO DIFF Routine 03/17/2025 9:07 AM EDT [facility] URINE MICROSCOPIC ONLY Routine 03/17/2025 8:58 AM EDT [facility] UA (CLEAN/CATCH) MICROSCOPIC IF INDICATE Routine 03/17/2025 8:58 AM EDT [facility]H MICROALB CREAT RATIO RANDOM Routine 03/17/2025 8:58 AM EDT documented in this encounter Results * [facility]MCOH PROSTATE SPECIFIC ANTIGEN SCRN (03/17/2025 9:07 AM EDT) PROSTATE SPECIFIC ANTIGEN SCRN 1.49 <=4.00 ng/mL TBH 03/17/2025 9:07 AM EDT 03/17/2025 9:08 AM EDT Narrative CLINISYNC - 03/17/2025 10:31 AM EDT us Pepper Sexton NP CLINISYNC Final Result Performing Organization Address [facility] de Phone Number [facility] * (ABNORMAL) ALL MAGNESIUM (03/17/2025 9:07 AM EDT) MAGNESIUM 0.2(LL) 1.8 - 2.4 mg/dL TB Comment:RESULTS CALLED TO TO JAVI GIBSON LPN 03/17/2025 9:07 AM EDT 03/17/2025 9:08 AM EDT Narrative CLINISYNC - 03/17/2025 10:24 AM EDT Generic External Data Provider CLINISYNC F inal Result Performing Organization Address [facility] de Phone Number [facility] * ALL PHOSPHOROUS (03/17/2025 9:07 AM EDT) PHOSPHORUS 2.7 2.6 - 4.7 mg/dL TB 03/17/2025 9:07 AM EDT 03/17/2025 9:08 AM EDT Narrative CLINISYNC - 03/17/2025 10:24 AM EDT Generic External Data Provider CLINISYNC F inal Result Performing Organization Address [facility] de Phone Number [facility] * ALL THYROXINE (T4) FREE (03/17/2025 9:07 AM EDT) FREE T4 0.98 0.76 - 1.46 ng/dL TB 03/17/2025 9:07 AM EDT 03/17/2025 9:08 AM EDT Narrative CLINISYNC - 03/17/2025 10:10 AM EDT Pepper Sexton PERSONAL LINES SALES REP CLINISYNC Final Result Performing Organization Address [facility]/ZIP Co de Phone Number [facility] * ALL THYROID STIM HORMONE (03/17/2025 9:07 AM EDT) Pathologist [facility] THYROID STIMULATING HORMONE 2.121 0.358 - 3.740 uIU/mL TB 03/17/2025 9:07 AM EDT 03/17/2025 9:08 AM EDT Narrative CLINISYNC - 03/17/2025 9:48 AM EDT Pepper Sexton NP CLINISYNC Final Result Performing Organization Address [facility] Co de Phone Number [facility] * (ABNORMAL) ALL LIPID PROFILE (FASTING) (03/17/2025 9:07 AM EDT) Pathologist [facility] TRIGLYCERIDES 215(H) <=150 mg/dL TBH CHOLESTEROL 173 <=200 mg/dL TB HDL CHOLESTEROL 38(L) 40 - 60 mg/dL TB Comment: > or =60 mg/dl - LOW CARDIOVASCULAR RISK <40 mg/dl - HIGH CARDIOVASCULAR RISK LDL CHOLESTEROL CALCULATED 92.0 mg/dL TB Comment: <100 mg/dl OPTIMAL 100-129 mg/dl NEAR OR ABOVE OPTIMAL 130-159 mg/dl BORDERLINE HIGH 160-189 mg/dl HIGH >190 mg/dl VERY HIGH VLDL CHOLESTEROL 43.0 mg/dL TB CHOL HDL RATIO 4.6 TB Comment: 3.3 - 4.4 LOW RISK 4.4 - 7.1 AVERAGE RISK 7.1 - 11.0 MODERATE RISK >11.0 HIGH RISK 03/17/2025 9:07 AM EDT 03/17/2025 9:08 AM EDT Narrative CLINISYNC - 03/17/2025 9:48 AM EDT us Pepper Sexton NP CLINISYNC Final Result CLINISYNC TB * (ABNORMAL) [facility] CMP (CMP) (FOR REMOTE [facility] USE) (03/17/2025 9:07 AM EDT) SODIUM 148(H) 136 - 145 mmol/L TBH POTASSIUM 3.4(L) 3.5 - 5.1 mmol/L TBH CHLORIDE 110(H) 98 - 107 mmol/L TBH CARBON DIOXIDE 27.9 21.0 - 32.0 mmol/L TBH ANION GAP 13.5 TBH GLUCOSE 134(H) 74 - 106 mg/dL TBH BLOOD UREA NITROGEN 11.0 7.0 - 18.0 mg/dL TBH CREATININE 1.23 0.70 - 1.30 mg/dL TBH TBH EGFR-AF BELGIAN >60 >=60 mL/min/1. 73m 2 TBH TBH EGFR-NON AF BELGIAN >60 >=60 mL/min/1. 73m 2 TBH BUN [...] Narrative CLINISYNC - 03/17/2025 9:31 AM EDT us Pepper Sexton NP CLINISYNC Final Result CLINISYNC TB * (ABNORMAL) ALL CBC WITH AUTO DIFF (03/17/2025 9:07 AM EDT) [facility] TB WBC 9.1 4.0 - 11.0 10 [...] Narrative CLINISYNC - 03/17/2025 9:14 AM EDT us Pepper Sexton NP CLINISYNC Final Result Performing Organization Address [facility] de Phone Number CLINISYNC TBH * (ABNORMAL) TBH MICROALB CREAT RATIO RANDOM [...] NP CLINISYNC Final Result Performing Organization Address [facility] de Phone Number CLINISYNC TBH * (ABNORMAL) [...] NP CLINISYNC Final Result Performing Organization Address [facility] de Phone Number CLINISYNC TBH * (ABNORMAL) [...] EDT Pepper Sexton NP CLINISYNC Final Result CLINISYNC TBH documented in this encounter Visit Diagnoses Not on filedocumented in this encounter Care Teams Blood Tester Relationship Specialty Start Date End Date Anastacio Hinojosa MD [address] [place] [address] PCP - General Family Medicine 11/26/23 Pepper Sexton NP [address] [place] [address] Nurse Practitioner Family Medicine 11/26/23 documented as of this encounter
--- NOTE | 2025-03-17 11:33 | ED.GENADUL1 ---
HPI HPI - General Adult General Chief complaint: Recheck/Abnormal Lab/Rx Stated complaint: abnormal lab values Time Seen by Provider: 03/17/25 11:23 Source: patient Mode of arrival: walk-in History of Present Illness HPI narrative: 59-year-old male presents for low magnesium. He had outpatient blood work today and he was called and told to go to the ER because his magnesium was 0.2. He is on a supplement and he does not seem to have any symptoms. He sees a pet care worker but is not on dialysis. Related Data Home Medications ?Medication ?Instructions ?Recorded ?Confirmed budesonide-formoterol HFA 160 2 puff inhalation Q12H 02/07/25 03/17/25 mcg-4.5 mcg/actuation aerosol inhaler doxepin 10 mg/mL oral concentrate 10 mg PO BEDTIME 02/07/25 03/17/25 gabapentin 600 mg tablet 600 mg PO BID 02/07/25 03/17/25 levothyroxine 112 mcg tablet 112 mcg PO DAILY 02/07/25 03/17/25 montelukast 10 mg tablet 10 mg PO BEDTIME 02/07/25 03/17/25 nebivolol 10 mg tablet 10 mg PO DAILY 02/07/25 03/17/25 omeprazole 40 mg capsule,delayed 40 mg PO DAILY 02/07/25 03/17/25 release valsartan 320 mg tablet 320 mg PO DAILY 02/07/25 03/17/25 amlodipine 10 mg tablet 10 mg PO DAILY 03/17/25 03/17/25 apixaban 5 mg tablet (Eliquis) 5 mg PO DAILY 03/17/25 03/17/25 magnesium glycinate 100 mg PO TID 03/17/25 03/17/25 Allergies Allergy/AdvReac Type Severity Reaction Status Date / Time No Known Drug Allergies Allergy Verified 02/27/24 09:26 Opioid HPI Opioid Management Most Recent Opioid Data: Last Pain Scale 5 02/12/25, 12:03 Last ORT Total Score 0 02/07/25, 14:00 Last ORT Risk Category Low Risk 02/07/25, 14:00 Review of Systems ROS Narrative A ten point review of systems is negative except as noted above. [facility] Medical History (Updated 03/17/25 @ 13:45 by Rolly Mccann MD) Sepsis ?A41.9 - Sepsis, unspecified organism (ICD-10) D-dimer, elevated ?R79.89 - Other specified abnormal findings of blood chemistry (ICD-10) Acute hypokalemia ?E87.6 - Hypokalemia (ICD-10) Cellulitis ?L03.90 - Cellulitis, unspecified (ICD-10) MARITZA (acute kidney injury) ?N17.9 - Acute kidney failure, unspecified (ICD-10) Hypomagnesemia ?E83.42 - Hypomagnesemia (ICD-10) HTN (hypertension) ?I10 - Essential (primary) hypertension (ICD-10) Social History (Updated 02/07/25 @ 14:36 by Winsome Pulido RN) Within the past year, how often did you have a drink containing alcohol: 2-3 times a week Within the past year, how many standard drinks containing alcohol did you have on a typical day: 10 or more Within the past year, how often did you have six or more drinks on one occasion: monthly Total score: 10 Score interpretation: A score of 4 or more indicates drinking is likely to affect patient's safety. Smoking status: Current every day smoker Second hand tobacco smoke exposure: Yes (smokes marijuana, not tobbacco) Non-prescribed substance use: cannabis (any form) Known occupational exposures/hazards: No Highest level of school completed/degree received: high school graduate Do you want help with school or training: No Are you now , , , , never or living with a partner: In a typical week, how many times do you talk on the telephone with family, friends, or neighbors: 3 or more times per week How often do you get together with friends or relatives: once per week How often do you attend jehovah's witness or gnosticism services: never Little interest or pleasure in doing things: not at all Feeling down, depressed, or hopeless: not at all Feel stressed/tense/nervous/anxious/difficulty sleeping: not at all Exam Narrative Exam Narrative: Nurses note and vital signs reviewed and patient is not hypoxic. General: The patient appears well and in no apparent distress. Patient is resting comfortably on cart. Skin: Warm, dry, no pallor noted. There is no rash noted. Head: Normocephalic, atraumatic Eye: Normal conjunctiva, no drainage Ears, Nose, Mouth, and Throat: oral mucosa is moist. Nares patent. Cardiovascular: Regular Rate and Rhythm Respiratory: Patient is in no distress, no accessory muscle use, lungs are clear to auscultation, no wheezing, rales or rhonchi Back: non-tender GI: Soft and nontender Musculoskeletal: The patient has no evidence of calf tenderness, no pitting edema, symmetrical pulses noted bilaterally Neurological: A&O, normal speech Psychiatric: Cooperative Constitutional Vital Signs, click to edit/add: Last Vital Signs Temp 97.8 F 03/17/25 11:20 Pulse 88 03/17/25 11:20 Resp 18 03/17/25 11:20 BP 150/100 H 03/17/25 11:20 Pulse Ox 94 L 03/17/25 11:20 O2 Del Method Room Air 03/17/25 11:20 Course Vital Signs Vital signs: Vital Signs Temperature 97.8 F 03/17/25 11:20 Pulse Rate 88 03/17/25 11:20 Respiratory Rate 18 03/17/25 11:20 Blood Pressure 150/100 H 03/17/25 11:20 Pulse Oximetry 94 L 03/17/25 11:20 Oxygen Delivery Method Room Air 03/17/25 11:20 Temperature 97.8 F 03/17/25 11:20 Pulse Rate 88 03/17/25 11:20 Respiratory Rate 18 03/17/25 11:20 Blood Pressure 150/100 H 03/17/25 11:20 Pulse Oximetry 94 L 03/17/25 11:20 Oxygen Delivery Method Room Air 03/17/25 11:20 Medical Decision Making MDM Narrative Medical decision making narrative: The patient's magnesium level is 0.3. He was given 4 g IV and discharged home. Lab Data Lab results reviewed: Yes I reviewed the patient's lab results Labs: Lab Results 03/17/25 Range/Units 11:45 WBC 9.2 (4.0-11.0) 10^3/uL RBC 3.83 L (4.70-6.10) 10^6/uL Hgb 12.1 L (14.0-18.0) g/dL Hct 37.0 L (42.0-54.0) % MCV 96.6 H (80.0-94.0) fL MCH 31.6 (25.9-34.0) pg MCHC 32.7 (29.9-35.2) g/dL RDW 15.0 (11.0-15.0) % Plt Count 286 (150-450) 10^3/uL MPV 10.3 (9.5-13.5) fL Neut % (Auto) 63.7 (43.0-75.0) % Lymph % (Auto) 19.5 L (20.5-60.0) % [place] % (Auto) 6.4 (1.7-12.0) % Eos % (Auto) 8.4 H (0.9-7.0) % Baso % (Auto) 1.0 (0.2-2.0) % Neut # (Auto) 5.9 (1.4-6.5) 10^3/uL Lymph # (Auto) 1.8 (1.2-3.8) 10^3/uL [place] # (Auto) 0.6 (0.3-0.8) 10^3/uL Eos # (Auto) 0.8 H (0.0-0.7) 10^3/uL Baso # (Auto) 0.1 (0.0-0.1) 10^3/uL Abs Immat Gran (auto) 0.09 H (0.00-0.03) 10^3/uL Imm/Tot Granulo (auto) 1.0 H (0.0-0.5) % Sodium 145 (136-145) mmol/L Potassium 3.4 L (3.5-5.1) mmol/L Chloride 109 H (98-107) mmol/L Carbon Dioxide 26.3 (21.0-32.0) mmol/L Anion Gap 13.1 BUN 12.0 (7.0-18.0) mg/dL Creatinine 1.16 (0.70-1.30) mg/dL Est GFR ( Amer) >60 (>=60 mL/min/1.73m^2) Est GFR (Non-Af Amer) >60 (>=60 mL/min/1.73m^2) BUN/Creatinine Ratio 10.3 Glucose 117 H (74-106) mg/dL Calcium 7.0 L (8.5-10.1) mg/dL Magnesium 0.3 L* (1.8-2.4) mg/dL ECG Data Attestation: I personally reviewed and interpreted this ECG as follows: (EKG on my interpretation shows sinus rhythm with rate of 81 and no acute change) Discharge Plan Discharge Chief Complaint: Recheck/Abnormal Lab/Rx Clinical Impression: Hypomagnesemia Patient Disposition: Home, Self-Care Time of Disposition Decision: 13:45 Condition: Good Mode of Transportation: Private Vehicle Prescriptions / Home Meds: No Action amlodipine 10 mg tablet 10 mg PO DAILY Eliquis 5 mg tablet 5 mg PO DAILY magnesium glycinate 100 mg magnesium capsule 100 mg PO TID budesonide-formoterol 160-4.5 mcg/actuation HFA aerosol inhaler 2 puff INHALATION Q12H gabapentin 600 mg tablet 600 mg PO BID levothyroxine 112 mcg tablet 112 mcg PO DAILY montelukast 10 mg tablet 10 mg PO BEDTIME nebivolol 10 mg tablet 10 mg PO DAILY omeprazole 40 mg capsule,delayed release(DR/EC) 40 mg PO DAILY valsartan 320 mg tablet 320 mg PO DAILY doxepin 10 mg/mL concentrate 10 mg PO BEDTIME Print Language: [place] Instructions: Hypomagnesemia (ED) Referrals: Pepper Sexton NP [Primary Care Provider, Family Practice] - 1 week
--- NOTE | 2025-03-17 11:35 | ECG_ITS ---
[facility] Test Date: 2025-03-17 Pat Name: VANDA GUILLAUME Department: Room: - Gender: Male Gis Software Developer: : 1965 Requested By: 1030 Order Number: [id number] Reading MD: CAMERON FARIAS M.D. Measurements Intervals [place] Rate: 81 P: 45 WV: 166 QRS: -53 QRSD: 86 T: 12 QT: 366 QTc: 404 Interpretive Statements 1100 Sinus rhythm 2630 Left anterior fascicular block 8003 Consistent with pulmonary disease 9150 abnormal ECG Compared to ECG 02/07/2025 12:13:46 Ectopic premature complexes are no longer present Electronically Signed On 03-17-2025 20:01:21 EDT by CAMERON FARIAS M.D.
[2025-03-17 12:01] LABS: Basophils Absolute Auto 0.1 10^3/uL (0.0-0.1); Eosinophils Absolute Auto 0.8 10^3/uL (0.0-0.7); Eosinophils Percent Auto 8.4 % (0.9-7.0); Hemoglobin 12.1 g/dL (14.0-18.0); Immature Granulocytes Abs Auto 0.09 10^3/uL (0.00-0.03); Lymphocytes Absolute Auto 1.8 10^3/uL (1.2-3.8); Lymphocytes Percent Auto 19.5 % (20.5-60.0); Mean Corpuscular HGB Conc 32.7 g/dL (29.9-35.2); Mean Corpuscular Hemoglobin 31.6 pg (25.9-34.0); Mean Corpuscular Volume 96.6 fL (80.0-94.0); Mean Platelet Volume 10.3 fL (9.5-13.5); Monocytes Absolute Auto 0.6 10^3/uL (0.3-0.8); Monocytes Percent Auto 6.4 % (1.7-12.0); Neutrophils Absolute Auto 5.9 10^3/uL (1.4-6.5); Neutrophils Percent Auto 63.7 % (43.0-75.0); Platelet Count 286 10^3/uL (150-450); Red Blood Count 3.83 10^6/uL (4.70-6.10); White Blood Count 9.2 10^3/uL (4.0-11.0)
[2025-03-17 12:06] LABS: Anion Gap 13.1; BUN Creatinine Ratio 10.3; Carbon Dioxide 26.3 mmol/L (21.0-32.0); Chloride 109 mmol/L (98-107); Estimated GFR (African America >60 (>=60 mL/min/1.73m^2); Estimated GFR (Non-African Ame >60 (>=60 mL/min/1.73m^2); Glucose 117 mg/dL (74-106); Potassium 3.4 mmol/L (3.5-5.1); Sodium 145 mmol/L (136-145)
[2025-03-17 12:07] LABS: Magnesium 0.3 mg/dL (1.8-2.4)
[2025-03-17] MEDS: MAGNESIUM SULFATE IN WATER 2 GM/50 ML PREMIX IV ×2 (12:29→13:16)
== END 2025-03-17 14:26 | disposition home or self-care (01) ==
PROVIDERS: Emergency Provider Emergency Medicine; PCP Nurse Practitioner
DX: E83.42 Hypomagnesemia (principal); I10 Essential (primary) hypertension; E78.2 Mixed hyperlipidemia; Z12.5 Encounter for screening for malignant neoplasm of prostate; K21.9 Gastro-esophageal reflux disease without esophagitis; N18.31 Chronic kidney disease, stage 3a; E03.9 Hypothyroidism, unspecified; I12.9 Hypertensive chronic kidney disease with stage 1 through stage 4 chronic kidney disease, or unspecified chronic kidney disease; F17.200 Nicotine dependence, unspecified, uncomplicated
CPT/HCPCS: 36415; 80048; 80053; 80061; 81001; 82043; 82570; 83735; 84100; 84439; 84443; 85025; 93005; 96365; 96366; 99285; G0103; J3475

== ENCOUNTER 2025-03-31 09:27 | Outpatient (OUT) | payer BC, SELFPAY ==
--- OUTSIDE RECORDS SUMMARY | 2023-11-18 05:00 | XMS_ITS ---
Author Organization The [facility] in [place] Address [address] [place] [address] Care Team Providers Care Vp Talent Management Name Role Phone Pepper Sexton CNP Primary Care Provider Unavail Krystyna Quinteros [phone] REASON FOR VISIT earlier day Encounters Encounter Location Date Provider Diagnosis [facility] [address] [place] [address] 11/18/2023 Krystyna Caputo Plan Of Treatment No Information Progress Notes * Abram GUILLAUME ADOB:1965 ( 59 yo M)Acc No.[id number]:11/18/2023 UNLOCKED PROGRESS NOTE Progress Notes Patient: Abram HERNANDEZ Provider: Radames Caputo CNP :1965 A ge:58 Y S ex:Male Date:11/18/2023 Address:[address] [place], [place] [phone] Pcp:Pepper Sexton CNP Subjective: * Chief Complaints: * 1 . Earlier day. * Medical History: Objective: * Vitals: Assessment: Plan: * Treatment: * * Electronic signature of Tamela Caputo on 03/31/2025 at 09:30 AM EDT Sign off status: Pending Visit Status: R /S (Rescheduled) * Provider: Radames Caputo CNP Date: 0 11/18/2023 Generated for Printi ng/Faxing/eTransmitting on: 0 03/31/2025 09:30 AM EDT
--- OUTSIDE RECORDS SUMMARY | 2023-11-20 05:15 | XMS_ITS ---
Author Organization The [facility] in [place] Address [address] [place] [address] Care Team Providers Care E Commerce Analyst Name Role Phone Pepper Sexton CNP Primary Care Provider Unavail Krystyna Quinteros [phone] REASON FOR VISIT earlier day Encounters Encounter Location Date Provider Diagnosis [facility] Immunology [address] [place] [address] 11/20/2023 Krystyna Caputo Plan Of Treatment No Information Progress Notes * Abram GUILLAUME ADOB:1965 ( 59 yo M)Acc No.[id number]:11/20/2023 UNLOCKED PROGRESS NOTE Progress Notes Patient: Abram HERNANDEZ Provider: Radames Caputo CNP :1965 A ge:58 Y S ex:Male Date:11/20/2023 Address:[address] [place], [place] [phone] Pcp:Pepper Sexton CNP Subjective: * Chief Complaints: * 1 . Earlier day. * Medical History: Objective: * Vitals: Assessment: Plan: * Treatment: * * Electronic signature of Tamela Caputo on 03/31/2025 at 09:31 AM EDT Sign off status: Pending Visit Status: R /S (Rescheduled) * Provider: Radames Caputo CNP Date: 11/20/2023 Generated for Printi ng/Faxing/eTransmitting on: 0 03/31/2025 09:31 AM EDT
--- OUTSIDE RECORDS SUMMARY | 2023-11-22 06:00 | XMS_ITS ---
Author Organization The [facility] in [place] Address [address] [place] [address] Care Team Providers Care Machine Icer Name Role Phone Pepper Sexton CNP Primary Care Provider Unavail Krystyna Quinteros [phone] REASON FOR VISIT earlier day Encounters Encounter Location Date Provider Diagnosis [facility] [address] [place] [address] 11/22/2023 Krystyna Caputo Plan Of Treatment No Information Progress Notes * Abram GUILLAUME ADOB:1965 ( 59 yo M)Acc No.[id number]:11/22/2023 UNLOCKED PROGRESS NOTE Progress Notes Patient: Abram HERNANDEZ Provider: Radames Caputo CNP :1965 A ge:58 Y S ex:Male Date:11/22/2023 Address:[address] [place], [place] [phone] Pcp:Pepper Sexton CNP Subjective: * Chief Complaints: * 1 . Earlier day. * Medical History: Objective: * Vitals: Assessment: Plan: * Treatment: * * Electronic signature of Tamela Caputo on 03/31/2025 at 09:30 AM EDT Sign off status: Pending Visit Status: R /S (Rescheduled) * Provider: Radames Caputo CNP Date: 11/22/2023 Generated for Printi ng/Faxing/eTransmitting on: 0 03/31/2025 09:30 AM EDT
--- OUTSIDE RECORDS SUMMARY | 2025-03-31 09:30 | XMS_ITS | Encounter Summary ---
Author Organization [facility] Address [address] [facility] [place] [address] Care Team Providers Care Central Sterile Tech Name Role Phone Anastacio Hinojosa MD Primary Care Provider [phone] Pepper Sexton LAW OFFICE RECEPTIONIST Unavailable [phone] Encounter Details Date Type Department Care Team ([facility] st Contact Info) Description 02/10/2025 [facility] [address] [place] [phone] Angelo Morales MD [address] [place] [address] Social History Tobacco Use Types [...] often do you attend chur ch or yarsanism services? Never 11/25/2023 Do you belong to any clubs o r organizations such as orthodox groups, unions, fraternal or athletic groups, [...] Recorded Patient Health Questionnaire-2 Score 0 11/26/2023 [facility] Occupat ional Health - Occupational [...] place to sleep or slept in a mcfp (including now)? No 11/25/2023 Sex and Gender [...] [facility] [address] [place] [address] Pepper Sexton NP [address] [place] [address] documented as of this encounter Procedures Procedure [...] on filedocumented in this encounter Care Teams Central Sterile Tech Relationship Specialty Start Date End Date Anastacio Hinojosa MD [address] [place] [address] PCP - General Family Medicine 11/26/23 Pepper Sexton NP [address] [place] [address] Nurse Practitioner Family Medicine 11/26/23 documented as of this encounter
--- OUTSIDE RECORDS SUMMARY | 2025-03-31 09:30 | XMS_ITS | Clinical Summary ---
Author Organization [facility] Address [address] [place] [address] Care Team Providers Care Surveyor Geophysical Prospecting Name Role Phone Unavailable Primary Care Provider [...]
--- OUTSIDE RECORDS SUMMARY | 2025-03-31 09:30 | XMS_ITS | Encounter Summary ---
Author Organization [facility] Address [address] [place] [address] Care Team Providers Care Kardex Clerk Name Role Phone Anastacio Hinojosa MD Primary Care Provider [phone] Pepper Sexton REGULATORY TECHNICIAN Unavailable [phone] Pepper Sexton REGULATORY TECHNICIAN Unavailable [phone] Encounter Details Date Type Department Care Team ([facility] st Contact Info) Description 07/09/2024 Orders Only [facility] [address] [place] [address] James Elaine MD [address] [facility] [address] [place] [address] Social History Tobacco Use Types Packs/Day Years [...] any clubs o r organizations such as holiness groups, unions, fraternal or athletic groups, or [...] Recorded Patient Health Questionnaire-2 Score 0 11/26/2023 [facility] Occupat ional Health - Occupational [...] Office Visit [facility] [address] [place] [address] Pepper Sexton NP [address] [place] [address] documented as of this encounter Procedures Procedure Name Priority Date/Time Associated Diagnosis Comments SCANNED LABS Routine 07/09/2024 1:15 PM EDT documented in this encounter Results * SCANNED LABS (07/09/2024 1:15 PM EDT) James Elaine MD LAB CHG PERFORMABLES Final Resul t documented in this encounter Visit Diagnoses Not on filedocumented in this encounter Care Teams Kardex Clerk Relationship Specialty Start Date End Date Anastacio Hinojosa MD [address] [place] [address] PCP - General Family Medicine 11/26/23 Pepper Sexton NP [address] [place] [place] [address] PCP - [place] [employer] 04/23/24 Pepper Sexton NP [address] [place] [address] Nurse Practitioner Family Medicine 11/26/23 documented as of this encounter
--- OUTSIDE RECORDS SUMMARY | 2025-03-31 09:30 | XMS_ITS | Encounter Summary ---
[facility] Organization [facility] Address [id number] [address] [place] [address] Care Team Providers Care Applied Psychology Chair Name Role Phone Pepper Sexton CARL-HAND SHOES SEWER Primary Care Provider Encounter Details Date Type Department Care Team (Late st Contact Info) Description 08/28/2022 Orders Only [facility] [address] [place] [address] Ref Prov, [place] [address] Social History Tobacco Use Types Packs/Day Years [...] AM EDT Office Visit [facility] [place] [address] [address] Robert Kumar MD [address], [address] [address] documented as of this encounter Procedures Procedure [...] on filedocumented in this encounter Care Teams Applied Psychology Chair Relationship Specialty Start Date End Date Pepper Sexton, DATA NETWORK ARCHITECT-HAND SHOES SEWER PCP - General Nurse Practitioner 05/10/22 documented as of this encounter
--- OUTSIDE RECORDS SUMMARY | 2025-03-31 09:30 | XMS_ITS | Encounter Summary ---
Author Organization [facility] Address [address] [facility] [place] [address] Care Team Providers Care Shactor Name Role Phone Anastacio Hinojosa MD Primary Care Provider [phone] Pepper Sexton DIAMOND FINISHING SUPERVISOR Unavailable [phone] Encounter Details Date Type Department Care Team (Late st Contact Info) Description 03/08/2025 Abstract [facility] [address] [place] [address] Pepper Sexton, DIAMOND FINISHING SUPERVISOR [address] [place] [address] Social History Tobacco Use Types Packs/Day Years [...] often do you attend chur ch or jehovah's witness services? Never 11/25/2023 Do you belong to any clubs o r organizations such as jewish groups, unions, fraternal or athletic groups, or [...] Visit [facility] [address] [place] [address] Pepper Sexton NP [address] [place] [address] documented as of this encounter Visit Diagnoses Not on filedocumented in this encounter Care Teams Shactor Relationship Specialty Start Date End Date Anastacio Hinojosa MD [address] [place] [address] PCP - General Family Medicine 11/26/23 Pepper Sexton NP [address] [place] [address] Nurse Practitioner Family Medicine 11/26/23 documented as of this encounter
--- OUTSIDE RECORDS SUMMARY | 2025-03-31 09:30 | XMS_ITS | Encounter Summary ---
Author Organization [facility] s tem Address [id number] [address] [place] [address] Care Team Providers Care Gear Hobber Name Role Phone JavierPepper rios Liam HENRY-CONSTRUCTION TECHNOLOGY INSTRUCTOR Primary Care Provider Encounter Details Date Type Department Care Team (Late st Contact Info) Description 05/10/2022 Orders Only [facility] [address] [place] [address] External, Scanning Provider Social History [...] [facility] [address] [place] [address] Robert Kumar MD [address], [address] [place] [address] documented as of this encounter Procedures Procedure Name Priority Date/Time Associated Diagnosis Comments ECHO COMPLETE WO CONTRAST Routine 02/27/2022 documented in this encounter Results * Echo complete W/O contrast (02/27/2022) Anatomical Region Laterality Modality Chest N/A Ultrasound us Scanning Provider External CV ECHO ORDERABLES Fi nal Result documented in this encounter Visit Diagnoses Not on filedocumented in this encounter Care Teams Gear Hobber Relationship Specialty Start Date End Date Pepper Sexton, LABELING MACHINE OPERATOR-CONSTRUCTION TECHNOLOGY INSTRUCTOR PCP - General Nurse Practitioner 05/10/22 documented as of this encounter
--- OUTSIDE RECORDS SUMMARY | 2025-03-31 09:31 | XMS_ITS | Clinical Summary ---
Author Organization [facility] Healthcare Address [address] [place] [address] Care Team Providers Care Demand Planning Manager Name Role Phone Anastacio Hinojosa MD Primary Care Provider [phone] Pepper Sexton NP Unavailable [phone] Allergies No known active allergies Medications [...] mouth Daily 90 tablet 12/15/19 025 Discontinued omeprazole (PriLOSEC) [address] [...] Active Problems Problem Noted Date Diagnosed Date Electrolyte abnormality 03/17/2025 Cellulitis of left lower extremity 02/17/2025 Assessment [...] pain. 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 Atopic dermatitis 11/26/2023 Psoriasis 11/26/2023 Orthopedic hardware present 11/26/2023 Marijuana use 11/26/2023 Assessment & Plan (01/06/2025 6:14 AM EDT): Gummies and smoking Assessment & Plan (10/07/2024 9:40 AM EST): Gummies and smoking Screening for prostate cancer 11/26/2023 Overview (03/17/2025): PSA: 03/16 1.26 03/17/25 1.49 Assessment & Plan (01/06/2025 6:14 AM EDT): [...] AM EDT): At goal no med dose sjnes Assessment & Plan (05/04/2024 12:52 PM EDT): [...] of the risks of continued smoking: stroke, MA, all forms of cancer, lung disease, and [...] supplements at [facility] and check lab around 7/29/24 Keep fu with Nephro as well Fu [...] flu shot 07/06/2024 07/06/2024 Pre-operative clearance 05/04/2024 04/02/2025 Assessment & Plan (05/26/2024 7:27 AM EDT): [...] digit is numb at times and 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 Carpal tunnel syndrome 02/02/202407/06 Overview (02/02/2024): Patient [...] scope with GI, has been off his PPI/[id number] for up coming EGD etc Continue with GI Assessment & Plan (05/04/2024 12:01 PM EDT): Did well on senior living PPI, however severe hypomagnesiumemia Would like to [...] Date Type Department Care Team Description 03/17/2025 Abstract [facility] [address] [place] [phone] Pepper Sexton NP 03/17/2025 Orders Only [facility] [address] [place] [address] Pepper Sexton NP Electrolyte abnormality (Primary Dx) 03/17/2025 Clinisync Result Encounter [facility] External Department Unsolicited Pepper Sexton NP 03/16/2025 Refill [facility] [address] [place] [address] Pepper Sexton NP Atopic dermatitis, unspecified type 03/16/2025 Refill [facility] [address] [place] [address] Pepper Sexton NP Hypothyroidism, unspecified type ; Gastroesophageal reflux disease, unspecified whether esophagitis present; Essential hypertension, benign 03/15/2025 Telephone [facility] [address] [place] [address] Pepper Sexton, REMBERTO 03/08/2025 8:20 AM EDT Office Visit [facility] [address] [place] [address] Pepper Sexton, REMBERTO Cellulitis of left lower extremity (Primary Dx); Essential hypertension, benign ; Left leg swelling; Morbid (severe) obesity due to excess calories ([facility]); Chronic bronchitis, unspecified chronic bronchitis type (HCC); Restless legs syndrome; Atopic dermatitis, unspecified type 03/08/2025 Abstract [facility] [address] [place] [address] Pepper Sexton, REMBERTO 03/08/2025 Bamboo flowsheet [facility] [address] [place] [address] Pepper Sexton, REMBERTO 02/17/2025 4:15 PM EDT Office Visit [facility] [address] [place] [address] Pepper Sexton, REMBERTO Cellulitis of left lower extremity (Primary Dx); Essential hypertension, benign ; Morbid (severe) obesity due to excess calories ([facility]); Hypomagnesemia; Cigarette nicotine dependence without complication; MARITZA (acute kidney injury); Left leg swelling 02/17/2025 Patient Outreach [facility] [address] [place] [address] Xiomara Garcia MA 02/10/2025 Orders Only [facility] [address] [place] [address] Angelo Morales MD 02/08/2025 Orders Only [facility] [address] [place] [address] Angelo Morales MD 02/07/2025 Clinisync Result Encounter [facility] External Department Unsolicited Provider, Generic External Data 01/06/2025 9:00 AM EDT Office Visit [facility] [address] [place] [address] Pepper Sexton NP Essential hypertension, benign (Primary Dx); Chronic kidney disease, stage 3a ([facility]); Gastro-esophageal reflux disease without esophagitis; Morbid (severe) obesity due to excess calories ([facility]); Mixed hyperlipidemia ; Hypomagnesemia; Screening for prostate cancer; Marijuana use; Hypothyroidism, unspecified type ; Fibromyalgia 01/06/2025 Bamboo flowsheet [facility] [address] [place] [address] Pepper Sexton NP from Last 3 Months [...] How often do you attend chur or congregational services? Never 11/25/2023 Do you belong to any clubs o r organizations such as presybeterian groups, unions, fraternal or athletic groups, or [...] Recorded Patient Health Questionnaire-2 Score 0 11/26/2023 [facility] of Occupat ional Health - Occupational Stress [...] [facility] [address] [place] [address] Pepper Sexton, MINER ASSISTANT [address] [place] [address] Health Maintenance Due Date Last Done Comments [...] AM EDT [facility] CMP (CMP) (FOR REMOTE [facility] USE) Routine 03/17/2025 9:07 AM EDT ALL [...] EDT from Last 3 Months Results * [facility] PROSTATE SPECIFIC ANTIGEN SCRN (03/17/2025 9:07 AM EDT) PROSTATE SPECIFIC ANTIGEN SCRN 1.49 <=4.00 ng/mL [facility] 03/17/2025 9:07 AM EDT 03/17/2025 9:08 AM EDT Narrative CLINISYNC - 03/17/2025 10:31 AM EDT us Pepper Sexton NP CLINISYNC Final Result CLINISYNC [facility] * (ABNORMAL) [facility] CMP (CMP) (FOR REMOTE [facility] USE) (03/17/2025 9:07 AM EDT) SODIUM 148(H) 136 - 145 mmol/L [facility] POTASSIUM 3.4(L) 3.5 - 5.1 mmol/L [facility] CHLORIDE 110(H) 98 - 107 mmol/L [facility] CARBON DIOXIDE 27.9 21.0 - 32.0 mmol/L [facility] ANION GAP 13.5 [facility] GLUCOSE 134(H) 74 - 106 mg/dL [facility] BLOOD UREA NITROGEN 11.0 7.0 - 18.0 mg/dL [facility] CREATININE 1.23 0.70 - 1.30 mg/dL [facility] TBH EGFR-AF COMORAN >60 >=60 mL/min/1. 73m 2 TBH TBH EGFR-NON AF COMORAN >60 >=60 mL/min/1. 73m 2 TBH BUN [...] - 03/17/2025 9:31 AM EDT Pepper Sexton MINER ASSISTANT CLINISYNC Final Result [facility] * ALL THYROXINE (T4) FREE (03/17/2025 9:07 AM EDT) FREE T4 0.98 0.76 - 1.46 ng/dL TB 03/17/2025 9:07 AM EDT 03/17/2025 9:08 AM EDT Narrative CLINISYNC - 03/17/2025 10:10 AM EDT Pepper Sexton MINER ASSISTANT CLINISYNC Final Result Performing Organization Address [facility] de Phone Number CLINISYNC TB * ALL THYROID STIM HORMONE (03/17/2025 9:07 AM EDT) THYROID STIMULATING HORMONE 2.121 0.358 - 3.740 uIU/mL [facility] 03/17/2025 9:07 AM EDT 03/17/2025 9:08 AM EDT Narrative CLINISYNC - 03/17/2025 9:48 AM EDT Pepper Sexton MINER ASSISTANT CLINISYNC Final Result Performing Organization Address [facility] Phone Number CLINISYNC TB * ALL PHOSPHOROUS (03/17/2025 9:07 AM EDT) Pathologist [facility] PHOSPHORUS 2.7 2.6 - 4.7 mg/dL [facility] 03/17/2025 9:07 AM EDT 03/17/2025 9:08 AM EDT Narrative CLINISYNC - 03/17/2025 10:24 AM EDT Generic External Data Provider CLINISYNC F inal Result Performing Organization Address [facility] Phone Number CLINISYOR TB * (ABNORMAL) ALL MAGNESIUM (03/17/2025 9:07 AM EDT) Pathologist [facility] MAGNESIUM 0.2(LL) 1.8 - 2.4 mg/dL [facility]H Comment:RESULTS CALLED TO TO JAVI GIBSON LPN 03/17/2025 9:07 AM EDT 03/17/2025 9:08 AM EDT Narrative CLINISYNC - 03/17/2025 10:24 AM EDT Generic External Data Provider CLINISYNC F inal Result Performing Organization Address [facility] de Phone Number CLINISYOR TB * (ABNORMAL) ALL LIPID PROFILE (FASTING) (03/17/2025 9:07 AM EDT) Pathologist [facility] TRIGLYCERIDES 215(H) <=150 mg/dL TBH CHOLESTEROL 173 [...] Pepper Sexton NP CLINISYNC Final Result CLINISYNC [facility] * (ABNORMAL) ALL CBC WITH AUTO DIFF (03/17/2025 9:07 AM EDT) [facility] TBH WBC 9.1 4.0 - 11.0 10 3/uL TBH TBH RBC 3.93(L) 4.70 - 6.10 10 6/uL TB[facility] TBH HGB 12.5(L) 14.0 - 18.0 g/dL TBH TB HCT 38.3(L) 42.0 - 54.0 % TBH [...] us Pepper Sexton NP [facility] * (ABNORMAL) [facility] URINE MICROSCOPIC ONLY (03/17/2025 [...] Address [facility]/State/ZIP Co de Phone Number CLINISYOR TB * (ABNORMAL) TBH UA (CLEAN/CATCH) MICROSCOPIC IF [...] NEGATIVE mg/dL TBH BLOOD URINE NEGATIVE NEGATIVE TB NITRITE URINE NEGATIVE NEGATIVE TB UROBILINOGEN URINE 0.2 0.2 - 1.0 EU/dL TBH LEUKOCYTE ESTERASE URINE NEGATIVE NEGATIVE TBH URINE MICROSCOPIC INDICATED YES [facility] 03/17/2025 8:58 AM EDT 03/17/2025 9:08 AM EDT Narrative CLINISYNC - 03/17/2025 9:25 AM EDT Pepper Sexton NP CLINISYNC Final Result Performing Organization Address [facility] de [facility] * (ABNORMAL) [facility]H MICROALB CREAT RATIO RANDOM (03/17/2025 8:58 AM EDT) MICROALBUMIN URINE RANDOM 5.3 <=30.0 mg/dL TB CREATININE URINE RANDOM 345.39(H) 20.00 - 300.00 mg/dL TB MICROALBUM CREATININE RATIO UR 15.3 0.0 - 29.9 mg/g TB Comment: NO MICROALBUMINURIA 0-29 MG/G CLINICAL MICROALBUMINURIA 30-300 MG/G MACROALBUMINURIA >300 MG/G 03/17/2025 8:58 AM EDT 03/17/2025 9:08 AM EDT Narrative CLINISYNC - 03/17/2025 9:48 AM EDT Pepper Aichholz MINER ASSISTANT CLINISYNC Final Result Performing Organization Address [facility] Co de Phone Number [facility] * US EXTREMITY NONVASCULAR LIMITED (02/10/2025 11:31 [...] ORDERAB LES Final Result Performing Organization Address [facility] Co de Phone Number [facility] * BLOOD CULTURE 1 (02/07/2025 12:02 PM EDT) BLOOD CULTURE 1 Blood Culture 1 NG5D NO GROWTH AT 5 DAYS.^NO GROWTH AT 5 DAYS. TB 02/07/2025 12:0 2 PM EDT 02/07/2025 12:38 PM EDT Narrative CLINISYNC - 02/12/2025 2:11 PM EDT LEFT FOREARM Generic External Data Provider LAB BLOOD ORDERAB LES Final Result Performing Organization Address [facility] Co de Phone Number CLINISYNC [facility]H from Last 3 Months Insurance [facility] Care Teams Demand Planning Manager Relationship Specialty Start Date End Date Anastacio Hinojosa MD [address] [place] [address] PCP - General Family Medicine 11/26/23 Pepper Sexton NP [address] [place] [address] Nurse Practitioner Family Medicine 11/26/23
--- OUTSIDE RECORDS SUMMARY | 2025-03-31 09:31 | XMS_ITS | Encounter Summary ---
Author Organization [facility] Address [address] [place] [address] Care Team Providers Care Broadcast Field Supervisor Name Role Phone Anastacio Hinojosa MD Primary Care Provider [phone] Pepper Sexton TOUR CONDUCTOR Unavailable [phone] Pepper Sexton TOUR CONDUCTOR Unavailable [phone] Encounter Details Date Type Department Care Team (Late st Contact Info) Description 10/06/2024 Orders Only [facility] [address] [place] [address] James Elaine MD [address] [facility] [address] [place] [address] Social History Tobacco Use Types Packs/Day Years [...] often do you attend chur ch or protestant services? Never 11/25/2023 Do you belong to [...] Recorded Patient Health Questionnaire-2 Score 0 11/26/2023 [facility] of Occupat ional Health - Occupational [...] Office Visit [facility] [address] [place] [address] Pepper Sexton NP [address] [place] [address] documented as of this encounter Procedures Procedure Name Priority Date/Time Associated Diagnosis Comments SCANNED LABS Routine 10/06/2024 10:55 AM EST documented in this encounter Results * SCANNED LABS (10/06/2024 10:55 AM EST) James Elaine MD LAB CHG PERFORMABLES Final Resul t documented in this encounter Visit Diagnoses Not on filedocumented in this encounter Care Teams Broadcast Field Supervisor Relationship Specialty Start Date End Date Anastacio Hinojosa MD [address] [place] [address] PCP - General Family Medicine 11/26/23 Pepper Sexton NP [address] [place] [address] PCP - [place] [employer] 04/23/24 Pepper Sexton NP [address] [place] [address] Nurse Practitioner Family Medicine 11/26/23 documented as of this encounter
--- OUTSIDE RECORDS SUMMARY | 2025-03-31 09:31 | XMS_ITS | Encounter Summary ---
Author Organization [facility] Address [address] [place] [address] Care Team Providers Care Continuity Manager Name Role Phone Anastacio Hinojosa MD Primary Care Provider [phone] Pepper Sexton METAL SOLDERER Unavailable [phone] Pepper Sexton METAL SOLDERER Unavailable [phone] Encounter Details Date Type Department Care Team (Late st Contact Info) Description 03/02/2024 Orders Only [facility] [address] [place] [address] Pepper Sexton NP [address] [place] [address] Social History Tobacco Use Types Packs/Day Years [...] often do you attend chur ch or episcopalian services? Never 11/25/2023 Do you belong to [...] Patient Health Questionnaire-2 Score 0 11/26/2023 [facility] of Occupat ional Health - [...] place to sleep or slept in a detention (including now)? No 11/25/2023 Sex and Gender [...] Office Visit [facility] [address] [place] [address] Pepper Sexton NP [address] [place] [address] documented as of this encounter Procedures Procedure Name Priority Date/Time Associated Diagnosis Comments ELECTROCARDIOGRAM REPORT Routine 024 8:16 AM EDT documented in this encounter Results * Electrocardiogram Report (02/27/2024 8:16 AM EDT) us Pepper Sexton NP IN CLINIC/BEDSIDE ORDERABLES Fi nal Result documented in this encounter Visit Diagnoses Not on filedocumented in this encounter Care Teams Continuity Manager Relationship Specialty Start Date End Date Anastacio Hinojosa MD [address] [place] [address] PCP - General Family Medicine 11/26/23 Pepper Sexton NP [address] [place] [address] PCP - [place] [employer] 04/23/24 Pepper Sexton NP [address] [place] [address] Nurse Practitioner Family Medicine 11/26/23 documented as of this encounter
--- OUTSIDE RECORDS SUMMARY | 2025-03-31 09:31 | XMS_ITS | Encounter Summary ---
Author Organization [facility] Address [address] [facility] [place] [address] Care Team Providers Care Farmworker Poultry Name Role Phone Anastacio Hinojosa MD Primary Care Provider [phone] Pepper Sexton WAFER LINE WORKER Unavailable [phone] Encounter Details Date Type Department Care Team (Late st Contact Info) Description 03/17/2025 Orders Only [facility] [address] [place] [address] Pepper Sexton, REMBERTO [address] [place] [address] Electrolyte abnormality (Primary Dx) Social History Tobacco Use Types Packs/Day Years [...] often do you attend chur ch or yazidi services? Never 11/25/2023 Do you belong to any clubs o r organizations such as sikhism groups, unions, fraternal or athletic groups, or [...] Recorded Patient Health Questionnaire-2 Score 0 11/26/2023 [facility] of Occupat ional Health - Occupational [...] Office Visit [facility] [address] [place] [address] Pepper Sexton NP [address] [place] [address] Scheduled Orders Name Type Priority Associated Diagnoses Orde r Schedule Basic metabolic panel Lab Routine Electrolyte abnormality Expected: 03/17/2025 (Approximate), Expires: 03/17/2026 documented as of this encounter Visit Diagnoses Diagnosis Electrolyte abnormality- Primary Electrolyte and fluid disorders not elsewhere classified documented in this encounter Care Teams Farmworker Poultry Relationship Specialty Start Date End Date Anastacio Hinojosa MD [address] [place] [address] PCP - General Family Medicine 11/26/23 Pepper Sexton NP [address] [place] [address] Nurse Practitioner Family Medicine 11/26/23 documented as of this encounter
--- OUTSIDE RECORDS SUMMARY | 2025-03-31 09:31 | XMS_ITS | Patient Health Record ---
Author Organization [facility] Address [address] [place] [address] Care Team Providers Care Cost And Risk Analysis Manager Name Role Phone Reny Branch Unavailable [phone] Reason For Referral No Information Problems Problem Type SNOMED Code ICD Code Onset Dates Problem Status W/U Status Risk Notes Problem Pain of left leg (M79.605) Active confirmed Problem Cellulitis of lower limb (212418081) Cellulitis of left lower extremity (L03.116) Active confirmed Encounters Encounter Location Date Provider Diagnosis [facility] Inpatient [address] [place] [address] 02/10/2025 Reny Branch Cellulitis of left lower extremity L03.116 and Pain of left leg M79.605 Assessments Encounter Date Diagnosis (ICD Code) Assessment Notes Treatment Notes Treatment Clinical Notes Section Notes 02/10/2025 Pain of left leg (ICD-10 - M79.605) 02/10/2025 Cellulitis of left lower extremity (ICD-10 - L03.116) Plan Of Treatment No Information Insurance Providers Payer Name Payer Address Payer Phone Subscriber Number Group Number Insured Name Patient Relationship to Insured Coverage Start Date Coverage End Date [employer] [address] [place] [address] [id number] Abram Sheehan Self - patient is the insured
--- OUTSIDE RECORDS SUMMARY | 2025-03-31 09:31 | XMS_ITS | Encounter Summary ---
Author Organization [facility] Address [address] [facility] [place] [address] Care Team Providers Care Mold Yard Supervisor Name Role Phone Anastacio Hinojosa MD Primary Care Provider [phone] Pepper Sexton DIESEL FLEET MECHANIC Unavailable [phone] Encounter Details Date Type Department Care Team ([facility] st Contact Info) Description 02/08/2025 [facility] [address] [place] [address] Angelo Morales MD [address] [place] [address] Social History Tobacco Use Types [...] often do you attend chur ch or yazdanism services? Never 11/25/2023 Do you belong to [...] Recorded Patient Health Questionnaire-2 Score 0 11/26/2023 [facility] of Occupat ional Health - Occupational Stress [...] Visit [facility] [address] [place] [address] Pepper Sexton NP [address] [place] [address] documented as of this encounter Procedures Procedure Name Priority Date/Time Associated Diagnosis Comments US, RETROPERITNL ABD, LTD Routine 2024 12:06 PM EDT documented in this encounter Results * Retroperitoneal Ultrasound, Abdomen Ltd (02/08/2025 12:06 PM EDT) us Angelo Morales MD IN CLINIC/BEDSIDE ORDERABLES Fi nal Result documented in this encounter Visit Diagnoses Not on filedocumented in this encounter Care Teams Mold Yard Supervisor Relationship Specialty Start Date End Date Anastacio Hinojosa MD [address] [place] [address] PCP - General Family Medicine 11/26/23 Pepper Sexton NP [address] [place] [address] Nurse Practitioner Family Medicine 11/26/23 documented as of this encounter
--- OUTSIDE RECORDS SUMMARY | 2025-03-31 09:31 | XMS_ITS | Patient Health Record ---
Author Organization [facility] in [place] Address [address] [place] [address] Care Team Providers Care Delicatessen Department Manager Name Role Phone Pepper Sexton CNP Primary Care Provider Unavail able Allergies No Known Allergies Results Component Value Reference Range Notes CRP Reviewed date:02/09/2025 08:43:40 PM Interpretation: Performing Lab: Notes/Report: [facility] , C Reactive Protein 14.75 <=0.50 mg/dL Performing Lab: see note ML - [facility] LB MAGNESIUM Reviewed date:02/09/2025 08:43:40 PM Interpretation: Performing Lab: Notes/Report: [facility] , Magnesium 1.1 1.8-2.4 mg/dL Performing Lab: see note ML - [facility] LB CRP Reviewed date:02/11/2025 08:38:04 PM Interpretation: Performing Lab: Notes/Report: [facility] , C Reactive Protein 12.79 <=0.50 mg/dL Performing Lab: see note ML - [facility] LB MAGNESIUM Reviewed date:02/11/2025 08:38:04 PM Interpretation: Performing Lab: Notes/Report: [facility] , Magnesium 1.7 1.8-2.4 mg/dL Performing Lab: see note ML - [facility] LB MAGNESIUM Reviewed date:02/09/2025 08:43:40 PM Interpretation: Performing Lab: Notes/Report: [facility] , Magnesium 2.1 1.8-2.4 mg/dL Performing Lab: see note ML - [facility] LB MAGNESIUM Reviewed date:02/09/2025 08:43:40 PM Interpretation: Performing Lab: Notes/Report: [facility] , Magnesium 1.0 1.8-2.4 mg/dL Performing Lab: see note ML - [facility] LB Occult Blood* Reviewed date:02/09/2025 08:43:40 PM Interpretation: Performing Lab: Notes/Report: [facility] , Occult Blood Negative Performing Lab: see note ML - [facility] LB US renal bladder Reviewed date:02/08/2025 12:45:10 PM Interpretation: Performing Lab: Notes/Report: Source Facility: [facility]-[address] [place] [address] [place] [address] Ultrasound Report Signed Patient: ABRAM GUILLAUME MR#: [id number] : 1965 Acct:[id number] Age/Sex: 59 / M ADM Date: 02/07/25 Loc: MS 220-[address]: Edis Conte M.D. Ordering Physician: Edis Conte M.D. Date of Service: 02/08/25 Procedure(s): US renal bladder Accession Number(s): [id number] cc: Pepper Sexton COOK [employer]; Edis Conte M.D. The [place] [address] Patient Name: ABRAM GUILLAUME MRN: [id number] date: 1965 Sex: M Assigned Patient Location: [place] Current Patient Location: [place] Accession/Order Number: [id number] Exam Date: 02/08/2025 11:53 Report Date: 02/08/2025 11:55 At the request of: EDIS CONTE MD Procedure: US renal bladder US renal bladder 02/08/2025 11:00 AM SIGNS AND SYMPTOMS: MARITZA COMPARISON: None. FINDINGS: Right kidney measures 12.1 x 6.9 x 7.5 cm. The right renal cortex measures 1.9 cm in thickness. No hydronephrosis or mass. Left kidney measures 11.4 x 7.7 x 6.5 cm. The left renal cortex measures 1.4 cm in thickness. No hydronephrosis or mass. The urinary bladder is morphologically normal. No free fluid is seen in the pelvis. Before voiding, the bladder measures 12.0 x 7.0 x 7.1 cm, which corresponds to an estimated volume of 418 mL . After voiding, the bladder measures 6.9 x 3.4 x 2.9 cm , which corresponds to an estimated volume of 36 .mL US/US renal bladder IMPRESSION: No hydronephrosis or mass. Impression dictated by: Pito Wong M.D. 02/08/2025 11:55 AM Dictation Location: [place] [address] Electronically authenticated by: [id number] Y Date: 02/08/2025 11:55 Dictated By: Pito Wogn M.D. Signed By: 02/08/25 1157 DD/ 1155 TD/TT: Manager Cost: [place] [address] Ultrasound Report Signed Patient: ABRAM GUILLAUME MR#: [id number] : 1965 Acct:[id number] Age/Sex: 59 / M ADM Date: 02/07/25 Loc: MS 220-[address]: Shay Conte M.D. Ordering Physician: Edis Conte M.D. Date of Service: 02/08/25 Procedure(s): US candace al bladder Accession Number(s): [id number] cc: Pepper Sexton NP ; Edis Conte M.D. [address] [address] Patient Name: ABRAM GUILLAUME MRN: [id number] date: 1965 Sex: M Assigned Patient Loc ation: MS Current Patient Loca tion: MS Accession/Order Numb er: [id number] Exam Date: 02/08/2025 11:53 Report Date: 02/08/2025 11:55 At the request of: EDIS CONTE MD Procedure: US renal bladder US renal bladder 01/21 11:00 AM SIGNS AND SYMPTOMS: MARITZA COMPARISON: None. FINDINGS: Right kidney measure s 12.1 x 6.9 x 7.5 cm. The right renal cortex measures 1.9 cm in thickness. No hydronephrosis or mass. Left kidney measures 11.4 x 7.7 x 6.5 cm. The left renal cortex measures 1.4 cm in thickness. No hydronephrosis or mass. The urinary bladder is morphologically normal. No free fluid is seen in the pelvis. Before voiding, the bladder measures 12.0 x 7.0 x 7.1 cm, which corresponds to an estimated volume of 418 mL . After voiding, the b ladder measures 6.9 x 3.4 x 2.9 cm , which corresponds to an estimated volume of 36 .mL S/US renal bladder IMPRESSION: No hydronephrosis or mass. Impression dictated by: Pito Wong M.D. 02/08/2025 11:55 AM Dictation Location: [place] [address] Electronically authenticated by: [id number] Y Date: 02/08/2025 11:55 Dictated By: Pito Wong M.D. Signed By: 02/08/25 1157 DD/ 1155 TD/TT: Manager Cost: US extremity nonvascular LT Reviewed date:02/10/2025 01:35:41 PM Interpretation: Performing Lab: Notes/Report: Source Facility: [place] [address] Ultrasound Report Signed Patient: ABRAM GUILLAUME MR#: [id number] : 1965 Acct:[id number] Age/Sex: 59 / M ADM Date: 02/07/25 Loc: MS 220-[address]: Edis Conte M.D. Ordering Physician: Edis Conte M.D. Date of Service: 02/10/25 Procedure(s): US extremity nonvascular LT Accession Number(s): [id number] cc: Pepper Sexton NP; Edis Conte M.D. [place] [address] Patient Name: ABRAM GUILLAUME MRN: [id number] date: 1965 Sex: M Assigned Patient Location: MS Current Patient Location: MS Accession/Order Number: [id number] Exam Date: 02/10/2025 11:13 Report Date: 02/10/2025 11:20 At the request of: EDIS CONTE MD Procedure: US extremity nonvascular LT LIMITED LEFT LOWER EXTREMITY ULTRASOUND CLINICAL DATA: Follow-up possible proximal pretibial fluid collection on CT COMPARISON: CT 02/10/2025 Real-time ultrasound evaluation of the proximal left lower leg was performed. At the anterior thomas proximally, there is a deep subcutaneous fluid collection which has some debris measuring 25 x 4 x 20 mm in size. This is superficial to the insertion of the patellar tendon. The differential for the finding could include superficial infrapatellar bursitis and a small soft tissue abscess. No other ultrasound abnormalities were seen in the area scanned. US/US extremity nonvascular LT IMPRESSION: SMALL MILDLY COMPLICATED FLUID COLLECTION AT THE SITE OF CONCERN ON CT, DESCRIBED. CORRELATION IS RECOMMENDED WITH SYMPTOMS AT THIS SITE. Impression dictated by: Ivette Duarte M.D. 02/10/2025 11:20 AM Dictation Location: [place] [address] Electronically authenticated by: [id number] Y Date: 02/10/2025 11:20 Dictated By: Ivette Duarte M.D. Signed By: 02/10/25 1122 DD/ 1120 TD/TT: Manager Cost: [place] [address] Ultrasound Report Signed Patient: ABRAM GUILLAUME MR#: [id number] : 1965 Acct:[id number] Age/Sex: 59 / M ADM Date: 02/07/25 Loc: MS 220-[address]: Shay Conte M.D. Ordering Physician: Edis Conte M.D. Date of Service: 02/10/25 Procedure(s): US ext remity nonvascular LT Accession Number(s): [id number] cc: Pepper Sexton NP ; Edis Conte M.D. [place] [id number] Patient Name: ABRAM GUILLAUME MRN: [id number] date: 1965 Sex: M Assigned Patient Loc ation: MS Current Patient Loca tion: MS Accession/Order Numb er: [id number] Exam Date: 02/10/2025 11:13 Report Date: 02/10/2025 11:20 At the request of: EDIS CONTE MD Procedure: US extrem ity nonvascular LT LIMITED LEFT LOWER EXTREMITY ULTRASOUND CLINICAL DATA: Follo w-up possible proximal pretibial fluid collection on CT COMPARISON: CT 02/10/2025 Real-time ultrasound evaluation of the proximal left lower leg was performed. At the anterior thomas proximally, there is a deep subcutaneous fluid collection which has some debri s measuring 25 x 4 x 20 mm in size. This is superficial to the insertion of the patellar tendon. The differential for the finding could include superf icial infrapatellar bursitis and a small soft tissue abscess. No other ultrasound abnormalities were seen in the area scanned. U S/US extremity nonvascular LT IMPRESSION: SMALL MILDLY COMPLIC ATED FLUID COLLECTION AT THE SITE OF CONCERN ON CT, DESCRIBED. CORRELATI ON IS RECOMMENDED WITH SYMPTOMS AT THIS SITE. Impression dictated by: Ivette Duarte M.D. 02/10/2025 11:20 AM Dictation Location: [place] [address] Electronically authenticated by: [id number] Y Date: 02/10/2025 11:20 Dictated By: Ivette Duarte M.D. Signed By: 02/10/25 1122 DD/ 1120 TD/TT: Manager Cost: CT lower leg LT wo/w con Reviewed date:02/10/2025 01:35:41 PM Interpretation: Performing Lab: Notes/Report: Source Facility: [facility]-[address] [place] [address] [place] [address] CT Scan Report Signed Patient: ABRAM GUILLAUME MR#: [id number] : 1965 Acct:[id number] Age/Sex: 59 / M ADM Date: 02/07/25 Loc: MS 220-[address]: Edis Conte M.D. Ordering Physician: Edis Conte M.D. Date of Service: 02/10/25 Procedure(s): CT lower leg LT wo/w con Accession Number(s): [id number] cc: Pepper Sexton NP [place] [id number] Patient Name: ABRAM GUILLAUME MRN: [id number] date: 1965 Sex: M Assigned Patient Location: MS Current Patient Location: MS Accession/Order Number: [id number] Exam Date: 02/10/2025 09:18 Report Date: 02/10/2025 09:38 At the request of: EDIS CONTE MD Procedure: CT lower leg LT wo/w con CT LEFT LOWER LEG WITHOUT AND WITH INTRAVENOUS CONTRAST CLINICAL DATA: Chronic leg rash with recent worsening and also pain laterally. COMPARISON: Plain films 02/07/2025 Spiral images were obtained through the left lower leg from just above the knee through the ankle before and after intravenous administration of 100 mL of Visipaque 270. Sagittal, coronal and 3-D volume rendered reconstructions were also reviewed. This CT exam was performed using one or more following dose reduction techniques: Automated exposure control, adjustment of the mA and/or kV according to patient size, or use of iterative reconstruction technique. There is redemonstration of a lateral plate and multiple screws along the distal fibula. There is some associated streak artifact. There is evidence of a previous syndesmosis screw which is been removed. There is bony bridging between the distal tibia and fibula. No acute fractures, dislocation or bony destruction is noted in the field of view. There is mild narrowing at the medial tibiofemoral joint compartment. There is minor marginal spurring at the knee. There are several small loose bodies within the joint space of the knee posteriorly. Spurring is also seen at the distal tibia and fibula. No musculotendinous abnormalities are noted. There is subcutaneous edema and fluid throughout the cgvam-sl-sbas, greater anteriorly toward the knee. This is more diffuse distally. There is also some skin thickening, greatest at the distal anterior medial thomas. There is a subtle, localized subcutaneous 2.5 x 0.8 x 1.5 cm fluid attenuation area along the anterior proximal tibia. There is no obvious associated enhancement or subcutaneous air however soft tissue abscess is difficult to exclude. No additional rim-enhancing fluid collections are identified. CT/CT lower leg LT wo/w con IMPRESSION: POSTOPERATIVE AND DEGENERATIVE CHANGES, DESCRIBED. SUBCUTANEOUS EDEMA AND SKIN THICKENING COMPATIBLE WITH CELLULITIS. EQUIVOCAL SMALL PROXIMAL PRETIBIAL SOFT TISSUE ABSCESS. CLINICAL CORRELATION IS RECOMMENDED. ULTRASOUND COULD BE CONSIDERED IF ADDITIONAL IMAGING EVALUATION IS STILL WARRANTED. Impression dictated by: Ivette Duarte M.D. 02/10/2025 9:38 AM Dictation Location: [place] [address] Electronically authenticated by: [id number] Y Date: 02/10/2025 09:38 Dictated By: Ivette Duarte M.D. Signed By: 02/10/25939 DD/ 7 TD/TT: Manager Cost: [place] [address] CT Scan Report Signed Patient: ABRAM GUILLAUME MR#: [id number] : 1965 Acct:[id number] Age/Sex: 59 / M ADM Date: 02/07/25 Loc: MS 220-[address]: Shay Conte M.D. Ordering Physician: Edis Conte M.D. Date of Service: 02/10/25 Procedure(s): CT low er leg LT wo/w con Accession Number(s): [id number] cc: Pepper Sexton NP [place] [id number] Patient Name: ABRAM GUILLAUME MRN: [id number] date: 1965 Sex: M Assigned Patient Loc ation: MS Current Patient Loca tion: MS Accession/Order Numb er: [id number] Exam Date: 02/10/2025 09:18 Report Date: 02/10/2025 09:38 At the request of: EDIS CONTE MD Procedure: CT lower leg LT wo/w con CT LEFT LOWER LEG WI THOUT AND WITH INTRAVENOUS CONTRAST CLINICAL DATA: Chron ic leg rash with recent worsening and also pain laterally. COMPARISON: Plain fi lms 02/07/2025 Spiral images were obtained through the left lower leg from just above the knee through the ank le before and after intravenous administration of 100 mL of Visipaque 270. Sagittal, coronal and 3-D volume rendered reconstructions were also reviewed. This CT exam was performed using one or more following dose reduction techn iques: Automated exposure control, adjustment of the mA and/or kV according to patient size, or use of iterative reconstruction technique. There is redemonstra tion of a lateral plate and multiple screws along the distal fibula. There is some associated streak artifact. There is evidence of a previous syndes mosis screw which is been removed. There is bony bridging between the distal t ibia and fibula. No acute fractures, dislocation or bony destruction is noted in the field of view. There is mild narrowing at the medial tibiofemoral joint compartment. There is minor marginal spurring at the knee. There are several small loose bodies within the joint space of the knee posteriorly. Sp urring is also seen at the distal tibia and fibula. No musculotendinous abnormalities are noted. There is subcutaneous edema and fluid throughout the emivc-ok-xdbn, greater anteriorly toward the knee. This is more diffuse dist ally. There is also some skin thickening, greatest at the distal anterior medi al thomas. There is a subtle, localized subcutaneous 2.5 x 0.8 x 1.5 cm fluid attenuation area along the anterior proximal tibia. There is no obvious associ ated enhancement or subcutaneous air however soft tissue abscess is difficult to exclude. No additional rim-enhancing fluid collections are identified. C T/CT lower leg LT wo/w con IMPRESSION: POSTOPERATIVE AND DEGENERATIVE CHANGES, DESCRIBED. SUBCUTANEOUS EDEMA A ND SKIN THICKENING COMPATIBLE WITH CELLULITIS. EQUIVOCAL SMALL PROX IMAL PRETIBIAL SOFT TISSUE ABSCESS. CLINICAL CORRELATION IS RECOMMENDED. ULTR ASOUND COULD BE CONSIDERED IF ADDITIONAL IMAGING EVALUATION IS STILL WARRANTED. Impression dictated by: Ivette Duarte M.D. 02/10/2025 9:38 AM Dictation Location: [place] [address] Electronically authenticated by: [id number] Y Date: 02/10/2025 09:38 Dictated By: Ivette Duarte M.D. Signed By: 02/10/2540 DD/ 7 TD/TT: Manager Cost: MAGNESIUM Reviewed date:02/10/2025 09:13:46 AM Interpretation: Performing Lab: Notes/Report: [facility] , Magnesium 1.6 1.8-2.4 mg/dL Performing Lab: see note ML - [facility] LB CRP Reviewed date:02/10/2025 09:13:46 AM Interpretation: Performing Lab: Notes/Report: [facility] , C Reactive Protein 13.87 <=0.50 mg/dL Performing Lab: see note ML - [facility] LB Reason For Referral No Information Medications Medication SIG (Take, Route, Frequency, Duration) Notes Start Date End Date Status Magnesium 400 MG as directed Orally 500mg Active Levothyroxine Sodium 100 MCG 1 tablet in the morning on an empty stomach Orally Once a day for 30 day(s) Active Naltrexone 380 MG as directed Intramuscular 4.5 Active Montelukast Sodium 10 MG 1 tablet Orally Once a day Active Valsartan 320 MG as directed Orally Active Omeprazole 40 MG 1 capsule 30 minutes before morning meal Orally Once a day for 30 day(s) Active Albuterol Sulfate HFA 108 (90 Base) MCG/ACT 2 puffs as needed Inhalation every 4 hrs Active Doxepin HCl 10 MG 1 capsule at bedtime Orally Once a day for 30 day(s) Active amLODIPine Besylate 10 MG 1 tablet Orall y Once a day for 30 day(s) Active Gabapentin 600 MG 1 tablet Orally Once a day for 30 day(s) Active Social History Tobacco Use: Social History Observation Description Date Details (start date - stop date) Never Smoker NA - NA Tobacco Use/Smoking Question Answer Notes Patient is a nonsmoker Problems Problem Type SNOMED Code ICD Code Onset Dates Problem Status W/U Status Risk Notes Problem Hypomagnesemia (716754673) Hypomagnesemia (E83.42) Active confirmed Problem 427230944 Unspecified asthma, uncomplicated (J45.909) Active confirmed Problem HTN (hypertension) (I10) Active confirmed Plan Of Treatment No Information Insurance Providers Payer Name Payer Address Payer Phone Subscriber Number Group Number Insured Name Patient Relationship to Insured Coverage Start Date Coverage End Date [employer] PPO PLUS LOCAL PLAN [address] [place] [phone] [id number] Abram Guillaume Self - patient is the insured 3 Medical (General) History Medical History History ICD Code Asthma?: Singulair and Albuterol RX by P CP; uses albuterol 1-2x/week Contact reaction ? : extensi ve rash to left lower leg (small section on right lower leg); present for 10 years - after having metal inserted to LL leg/foot; not improved with dupixent Allergic contact dermatitis: 08/30/2023 ACDS Core Series Patch #80 testin+ Cocoamidopropyl betaine - AVOID; ? reaction to propylene glycol, DMAPA, Decyl glucoside; others non reactive on the fifth day History of eczema: resolved after Dupixe nt x 1 year Athritis Fibromylgia Thyroid Surgical History Surgery Date(Month/Year) Hernia X2
--- OUTSIDE RECORDS SUMMARY | 2025-03-31 09:31 | XMS_ITS | Encounter Summary ---
Author Organization [facility] Address [address] [place] [address] Care Team Providers Care Platform Mill Supervisor Name Role Phone Shaikh MITZI De La Paz Primary Care Provider [phone] Anastacio Hinojosa MD Primary Care Provider [phone] Pepper Sexton NP Unavailable [phone] Pepper Sexton NP Unavailable [phone] Reason for Visit * Reason Comments Med Refill Encounter Details Date Type Department Care Team (Late st Contact Info) Description 11/12/2023 Refill [facility] [address] [place] [address] Pepper Sexton NP [address] [place] [address] Restless legs syndrome Social History Tobacco Use [...] [facility] [address] [place] [phone] Pepper Sexton NP [address] [place] [phone] documented as of this encounter Visit Diagnoses Diagnosis Restless legs syndrome Restless legs syndrome (RLS) documented in this encounter Care Teams Platform Mill Supervisor Relationship Specialty Start Date End Date Shaikh De La Paz MD PCP - General Internal Medicine 04/04/23 11/25/23 Anastacio Hinojosa MD [address] [place] [phone] PCP - General Family Medicine 11/26/23 Pepper Sexton NP [address] [place] [id number] PCP - [employer] 04/23/24 Pepper Sexton NP [address] [place] [id number] Nurse Practitioner Family Medicine 11/26/23 documented as of this encounter
--- OUTSIDE RECORDS SUMMARY | 2025-03-31 09:31 | XMS_ITS | Encounter Summary ---
Author Organization [facility] Address [address] [place] [address] Care Team Providers Care Powerhouse Operator Name Role Phone Shaikh MITZI De La Paz Primary Care Provider [phone] Anastacio Hinojosa MD Primary Care Provider [phone] Pepper Sexton SPORTS INFORMATION DIRECTOR Unavailable [phone] Pepper Sexton NP Unavailable [phone] Encounter Details Date Type Department Care Team (Late st Contact Info) Description 09/22/2023 Abstract [facility] [address] [place] [address] Pepper Sexton NP [address] [place] [address] Social History Tobacco Use Types Packs/Day Years [...] 04/07/2025 8:20 AM EDT Office Visit [facility] [address] [place] [address] Pepper Sexton NP [address] [place] [address] documented as of this encounter Visit Diagnoses Not on filedocumented in this encounter Care Teams Powerhouse Operator Relationship Specialty Start Date End Date Shaikh De La Paz MD PCP - General Internal Medicine 04/04/23 11/25/23 Anastacio Hinojosa MD [address] [place] [address] PCP - General Family Medicine 11/26/23 Pepper Sexton NP [address] [place] [phone] PCP - [facility] 04/23/24 Pepper Sexton NP [address] [place] [address] Nurse Practitioner Family Medicine 11/26/23 documented as of this encounter
--- OUTSIDE RECORDS SUMMARY | 2025-03-31 09:31 | XMS_ITS | Encounter Summary ---
Author Organization [facility] Address [address] [place] [address] Care Team Providers Care Assignment Desk Editor Name Role Phone Anastacio Hinojosa MD Primary Care Provider [phone] Pepper Sexton CIRCUIT BREAKER MECHANIC Unavailable [phone] Pepper Sexton CIRCUIT BREAKER MECHANIC Unavailable [phone] Encounter Details Date Type Department Care Team (Late st Contact Info) Description 11/26/2024 Abstract [facility] [address] [place] [address] Pepper Sexton NP [address] [place] [address] Social History Tobacco Use Types Packs/Day Years [...] often do you attend chur ch or mormonism services? Never 11/25/2023 Do you belong to any clubs o r organizations such as religion groups, unions, fraternal or athletic groups, or [...] Recorded Patient Health Questionnaire-2 Score 0 11/26/2023 [facility] - Occupational [...] Office Visit [facility] [address] [place] [phone] Pepper Sexton NP [address] [place] [phone] documented as of this encounter Visit Diagnoses Not on filedocumented in this encounter Care Teams Assignment Desk Editor Relationship Specialty Start Date End Date Anastacio Hinojosa MD [address] [place] [address] PCP - General Family Medicine 11/26/23 Pepper Sexton NP [address] [place] [address] PCP - [place] [employer] 04/23/24 Pepper Sexton NP [address] [place] [address] Nurse Practitioner Family Medicine 11/26/23 documented as of this encounter
--- OUTSIDE RECORDS SUMMARY | 2025-03-31 09:31 | XMS_ITS | Clinical Summary ---
Author Organization [employer] [facility] tem Address [id number] [address] [place] [address] Care Team Providers Care Postal Service Sectional Center Manager Name Role Phone Pepper Sexton APRN-SALESPERSON TRAILERS [employer]OR [employer]ES Primary Care Provider Allergies No known active [...] AM EDT Office Visit [facility] [address] [place] [address] Robert Kumar MD [address], [address] [address] Health Maintenance Due Date Last Done Comments [...] 11:22 AM 12/16/2021 5:00 PM Care Teams [employer] Sectional Center Manager Relationship Specialty Start Date End Date Pepper Sexton, MACHINE TAILER-SALESPERSON TRAILERS [employer] MOTOR HOMES PCP - General Nurse Practitioner 05/10/22
--- OUTSIDE RECORDS SUMMARY | 2025-03-31 09:31 | XMS_ITS | Encounter Summary ---
Author Organization [facility] Address [address] [facility] [place] [address] Care Team Providers Care Meteorological Engineer Name Role Phone Anastacio Hinojosa MD Primary Care Provider [phone] Pepper Sexton MANAGER FINANCIAL PLANNING Unavailable [phone] Encounter Details Date Type Department Care Team (Late st Contact Info) Description 03/17/2025 Abstract [facility] [address] [place] [address] Pepper Sexton, MANAGER FINANCIAL PLANNING [address] [place] [address] Social History Tobacco Use Types Packs/Day Years [...] often do you attend chur ch or zoroastrian services? Never 11/25/2023 Do you belong to any clubs o r organizations such as jew groups, unions, fraternal or athletic groups, or [...] Visit [facility] [address] [place] [address] Pepper Sexton NP [address] [place] [address] documented as of this encounter Visit Diagnoses Not on filedocumented in this encounter Care Teams Meteorological Engineer Relationship Specialty Start Date End Date Anastacio Hinojosa MD [address] [place] [phone] PCP - General Family Medicine 11/26/23 Pepper Sexton NP [address] [place] [address] Nurse Practitioner Family Medicine 11/26/23 documented as of this encounter
--- OUTSIDE RECORDS SUMMARY | 2025-03-31 09:31 | XMS_ITS | Encounter Summary ---
Author Organization [facility] Address [address] [place] [address] Care Team Providers Care Carbon Coater Machine Operator Name Role Phone Anastacio Hinojosa MD Primary Care Provider [phone] Pepper Sexton DIGITAL ANALYTICS MANAGER Unavailable [phone] Encounter Details Date Type Department Care Team (Late st Contact Info) Description 03/17/2025 Clinisync Result Encounter [facility] External Department Unsolicited Pepper Sexton, REMBERTO [address] [place] [address] Social History Tobacco Use Types Packs/Day Years [...] often do you attend chur ch or adventism services? Never 11/25/2023 Do you belong to any clubs o r organizations such as mandaeism groups, unions, fraternal or athletic groups, or [...] Recorded Patient Health Questionnaire-2 Score 0 11/26/2023 [facility] of Occupat ional Health - Occupational Stress [...] Visit [facility] [address] [place] [address] Pepper Sexton, REMBERTO [address] [place] [address] documented as of this encounter Procedures Procedure Name Priority Date/Time Associated Diagnosis Comments SRMCOH PROSTATE SPECIFIC ANTIGEN SCRN Routine 03/17/2025 9:07 AM EDT [facility] CMP (CMP) (FOR REMOTE [facility] USE) Routine 03/17/2025 9:07 AM EDT [...] NP CLINISYNC Final Result Performing Organization Address [facility] de Phone Number [facility] * (ABNORMAL) ALL MAGNESIUM (03/17/2025 9:07 AM EDT) MAGNESIUM 0.2(LL) 1.8 - 2.4 mg/dL TB Comment:RESULTS CALLED TO TO JAVI GIBSON LPN 03/17/2025 9:07 AM EDT 03/17/2025 9:08 AM EDT Narrative CLINISYNC - 03/17/2025 10:24 AM EDT Generic External Data Provider CLINISYNC F inal Result Performing Organization Address [facility] de Phone Number [facility] * ALL PHOSPHOROUS (03/17/2025 9:07 AM EDT) PHOSPHORUS 2.7 2.6 - 4.7 mg/dL TB 03/17/2025 9:07 AM EDT 03/17/2025 9:08 AM EDT Narrative CLINISYNC - 03/17/2025 10:24 AM EDT Generic External Data Provider CLINISYNC F inal Result Performing Organization Address [facility] de Phone Number [facility] * ALL THYROXINE (T4) FREE (03/17/2025 9:07 AM EDT) FREE T4 0.98 0.76 - 1.46 ng/dL TB 03/17/2025 9:07 AM EDT 03/17/2025 9:08 AM EDT Narrative CLINISYNC - 03/17/2025 10:10 AM EDT Pepper Sexton DIGITAL ANALYTICS MANAGER CLINISYNC Final Result Performing Organization Address [facility]/ZIP Co de Phone Number [facility] * ALL THYROID STIM HORMONE (03/17/2025 9:07 AM EDT) Pathologist [facility] THYROID STIMULATING HORMONE 2.121 0.358 - 3.740 uIU/mL TB 03/17/2025 9:07 AM EDT 03/17/2025 9:08 AM EDT Narrative CLINISYNC - 03/17/2025 9:48 AM EDT Pepper Sexton NP CLINISYNC Final Result Performing Organization Address [facility] Co de Phone Number [facility] * (ABNORMAL) ALL LIPID PROFILE (FASTING) (03/17/2025 9:07 AM EDT) Pathologist [facility] TRIGLYCERIDES 215(H) <=150 mg/dL TBH CHOLESTEROL 173 [...] * (ABNORMAL) [facility] CMP (CMP) (FOR REMOTE [facility] USE) (03/17/2025 9:07 AM EDT) SODIUM [...] 0.70 - 1.30 mg/dL TBH TBH EGFR-AF NORWEGIAN >60 >=60 mL/min/1. 73m 2 TBH TBH EGFR-NON AF NORWEGIAN >60 >=60 mL/min/1. 73m 2 TB[facility] BUN [...] WITH AUTO DIFF (03/17/2025 9:07 AM EDT) [facility] TB WBC 9.1 4.0 - 11.0 10 [...] NP CLINISYNC Final Result Performing Organization Address [facility] de Phone Number CLINISYNC TBH * [...] NP CLINISYNC Final Result Performing Organization Address [facility] de Phone Number CLINISYNC [facility] * [...] NP CLINISYNC Final Result Performing Organization Address [facility] de Phone Number CLINISYNC [facility] * [...] on filedocumented in this encounter Care Teams Carbon Coater Machine Operator Relationship Specialty Start Date End Date Anastacio Hinojosa MD [address] [place] [phone] PCP - General Family Medicine 11/26/23 Pepper Sexton NP [address] [place] [phone] Nurse Practitioner Family Medicine 11/26/23 documented as of this encounter
--- OUTSIDE RECORDS SUMMARY | 2025-03-31 09:32 | XMS_ITS | Encounter Summary ---
Author Organization [facility] [employer] Address [id number] [address] [place] [address] Care Team Providers Care Compensation Business Partner Name Role Phone Pepper Sexton CARL-ADOPTION AGENT Primary Care Provider Encounter Details Date Type Department Care Team (Late Contact Info) Description 02/05/2022 Orders Only [facility] [address] [place] [phone] Ref Prov, [place] [address] Social History Tobacco Use Types Packs/Day Years [...] AM EDT Office Visit [facility] [place] [address] Robert Kumar MD [address], [facility] [address] [place] [address] documented as of this encounter Procedures Procedure [...] on filedocumented in this encounter Care Teams Compensation Business Partner Relationship Specialty Start Date End Date Pepper Sexton, DIRECTOR OF CORPORATE SALES-ADOPTION AGENT PCP - General Nurse Practitioner 05/10/22 documented as of this encounter
--- OUTSIDE RECORDS SUMMARY | 2025-03-31 09:32 | XMS_ITS | Encounter Summary ---
Author Organization [facility] Address [address] [place] [address] Care Team Providers Care Tobacco Wetter Name Role Phone Anastacio Hinojosa MD Primary Care Provider [phone] Pepper Sexton DIPLOMA MAKER Unavailable [phone] Pepper Sexton DIPLOMA MAKER Unavailable [phone] Encounter Details Date Type Department Care Team (Late st Contact Info) Description 2024 Abstract [facility] [address] [place] [address] Pepper Sexton NP [address] [place] [address] Social History Tobacco Use Types Packs/Day Years [...] often do you attend chur ch or cheondoism services? Never 11/25/2023 Do you belong to [...] Recorded Patient Health Questionnaire-2 Score 0 11/26/2023 [facility] of Occupat ional Health - [...] Office Visit [facility] [address] [place] [address] Pepper Sexton NP [address] [place] [phone] documented as of this encounter Visit Diagnoses Not on filedocumented in this encounter Care Teams Tobacco Wetter Relationship Specialty Start Date End Date Anastacio Hinojosa MD [address] [place] [address] PCP - General Family Medicine 11/26/23 Pepper Sexton NP [address] [place] [address] PCP - [place] [employer] 04/23/24 Pepper Sexton NP [address] [place] [address] Nurse Practitioner Family Medicine 11/26/23 documented as of this encounter
--- OUTSIDE RECORDS SUMMARY | 2025-03-31 09:32 | XMS_ITS | Clinical Summary ---
Author Organization [facility] Address [address] [place] [address] Care Team Providers Care Technical Producer Name Role Phone Delmer Bryan MD Primary Care Provider [phone] Social History Tobacco Use Types Packs/Day Years Used Date Smoking Tobacco: Never Assessed MS Safety & Environment Answer Date Rec orded [...] Vaccines (1 of 2) 2017 Influenza Vaccine (#1) 2025 HIB Vaccines Aged Out No longer [...] patient's age to complete this topic Insurance [facility] Care Teams Technical Producer Relationship Specialty Start Date End Date Delmer Bryan MD [address] [facility] [place] [address] PCP - General 05/14/22
--- OUTSIDE RECORDS SUMMARY | 2025-03-31 09:32 | XMS_ITS | Encounter Summary ---
Author Organization [facility] Address [address] [place] [address] Care Team Providers Care Instrumentation Engineering Technician Name Role Phone Anastacio Hinojosa MD Primary Care Provider [phone] Pepper Sexton RAILROAD CARMAN Unavailable [phone] Pepper Sexton RAILROAD CARMAN Unavailable [phone] Encounter Details Date Type Department Care Team (Late st Contact Info) Description 02/25/2024 Orders Only [facility] [address] [place] [address] Pepper Sexton NP [address] [place] [phone] Social History Tobacco Use Types Packs/Day Years [...] Recorded Patient Health Questionnaire-2 Score 0 11/26/2023 [facility] of Occupat ional Health - Occupational [...] place to sleep or slept in a alf (including now)? No 11/25/2023 Sex and Gender [...] Visit [facility] [address] [place] [address] Pepper Sexton NP [address] [place] [address] documented as of this encounter Procedures Procedure [...] on filedocumented in this encounter Care Teams Instrumentation Engineering Technician Relationship Specialty Start Date End Date Anastacio Hinojosa MD [address] [place] [address] PCP - General Family Medicine 11/26/23 Pepper Sexton NP [address] [place] [address] PCP - [place] [employer] 04/23/24 Pepper Sexton NP [address] [place] [address] Nurse Practitioner Family Medicine 11/26/23 documented as of this encounter
[2025-03-31 10:23] LABS: Anion Gap 13.7; Blood Urea Nitrogen 15.0 mg/dL (7.0-18.0); Calcium 7.9 mg/dL (8.5-10.1); Carbon Dioxide 28.8 mmol/L (21.0-32.0); Chloride 107 mmol/L (98-107); Estimated GFR (African America >60 (>=60 mL/min/1.73m^2); Estimated GFR (Non-African Ame >60 (>=60 mL/min/1.73m^2); Glucose 130 mg/dL (74-106); Potassium 3.5 mmol/L (3.5-5.1); Sodium 146 mmol/L (136-145)
== END 2025-03-31 09:28 | disposition home or self-care (01) ==
PROVIDERS: PCP Nurse Practitioner; Visit Provider Nurse Practitioner
DX: E87.8 Other disorders of electrolyte and fluid balance, not elsewhere classified (principal)
CPT/HCPCS: 36415; 80048

== ENCOUNTER 2025-04-13 08:16 | Outpatient (OUT) | payer BC, SELFPAY ==
--- OUTSIDE RECORDS SUMMARY | 2025-04-13 08:25 | XMS_ITS | CCD ---
Author Organization [facility] Care Team Providers Care Insulation Board Coater Operator Name Role Phone AICHHOLZ, SUPERVISOR MULTIFOCAL LENS PEPPER Primary Care Unavailable AICHHOLZ, SUPERVISOR MULTIFOCAL LENS PEPPER Consulting Unavailable AICHHOLZ, SUPERVISOR MULTIFOCAL LENS PEPPER Attending Unavailable AICHHOLZ, SUPERVISOR MULTIFOCAL LENS PEPPER Admitting Unavailable AICHHOLZ, SUPERVISOR MULTIFOCAL LENS PEPPER Consulting Unavailable AICHHOLZ, SUPERVISOR MULTIFOCAL LENS PEPPER Attending Unavailable AICHHOLZ, SUPERVISOR MULTIFOCAL LENS PEPPER Admitting Unavailable AICHHOLZ, SUPERVISOR MULTIFOCAL LENS PEPPER Primary Care Unavailable AICHHOLZ, SUPERVISOR MULTIFOCAL LENS PEPPER Primary Care Unavailable DR CRIS GAN V Consulting Unavailable AICHHOLZ, SUPERVISOR MULTIFOCAL LENS PEPPER Attending Unavailable AICHHOLZ, SUPERVISOR MULTIFOCAL LENS PEPPER Admitting Unavailable AICHHOLZ, SUPERVISOR MULTIFOCAL LENS PEPPER Consulting Unavailable AICHHOLZ, SUPERVISOR MULTIFOCAL LENS PEPPER Primary Care Unavailable AICHHOLZ, SUPERVISOR MULTIFOCAL LENS PEPPER Consulting Unavailable AICHHOLZ, SUPERVISOR MULTIFOCAL LENS PEPPER Attending Unavailable AICHHOLZ, SUPERVISOR MULTIFOCAL LENS PEPPER Admitting Unavailable AICHHOLZ, SUPERVISOR MULTIFOCAL LENS PEPPER Primary Care Unavailable AICHHOLZ, SUPERVISOR MULTIFOCAL LENS PEPPER Consulting Unavailable AICHHOLZ, SUPERVISOR MULTIFOCAL LENS PEPPER Attending Unavailable AICHHOLZ, SUPERVISOR MULTIFOCAL LENS PEPPER Admitting Unavailable AICHHOLZ, PEPPER J Referring [...] Unavailable Ashish CARTAGENA, Anastacio Primary Care Provider [phone] Aichholz MANAGER FORMS, Pepper Unavailable Aichholz MANAGER FORMS, Pepper Unavailable Aichholz, Pepper J Primary Care Provider MD [place] Imrosalie Attending Provider Pepper Sexton Primary Care Provider [phone] [place] CARTAGENA, James Attending Provider Pepper Sexton Primary Care Unavailable Asaad, Imad Attending Unavailable Asaad, Imad Admitting Unavailable Asaad, Imad Admitting Unavailable Pepper Sexton Primary Care Unavailable Asaad, Imad Attending Unavailable [facility] SUPERINTENDENT-Pepper ARANDA Primary Care Provider Pepper Sexton Primary Care Provider [phone] [place] CARTAGENA, James Attending Provider PEPPER SEXTON Attending Unavailable AICHJAYLENZPEPPER Attending Unavailable AICHHOLZ, PEPPER Attending Unavailable AICHJAYLENZPEPPER Attending Unavailable JAVIERHJEMAL, PEPPER Attending Unavailable RUPERT BO Attending Unavailable JAVIERHJEMAL, PEPPER Attending Unavailable JAVIERHPEPPER JOAQUIN Referring Unavailable BLANK MCFARLANE Attending Unavailable RUPERT BO Attending Unavailable JAVIERHPEPPER JOAQUIN Attending Unavailable JAVIERHPEPPER JOAQUIN Attending Unavailable Javierhjemal HENRYPepper ARANDA Primary Care Provider ROBERT KUMAR Attending Unavailable PEPPER SEXTON Referring Unavailable PEPPER SEXTON Primary Care Unavailable Pepper Sexton Primary Care Provider [phone] Tang Hamilton MD Attending Provider Medications Current Medications Medication Drug Class(es) Dates Sig (Normalized) Sig (Original) 8 hr acetaminophen 650 mg extended release oral tablet (4 sources) take 1 tablet by mouth every eight hours as needed acetaminophen (Tylenol 8 Hour) 650 MG ER tablet Take 650 mg by mouth every 8 (eight) hours if needed Active acetaminophen 325 mg / HYDROcodone bitartrate 5 mg oral tablet (1 source) Opioid Agonist Start: 05-26-2024 End: 05-29-2024 take 1 tablet by mouth every six hours for pain HYDROcodone-acetami nophen ([place]) 5-325 MG tablet Indications: Post-operative pain Take 1 tablet by mouth every 6 (six) hours if needed for severe pain for up to 3 days 12 tablet 05/26/2024 05/29/2024 Active [id number] 200 actuat albuterol 0.09 mg/actuat metered dose inhaler (20 sources) beta2-Adrenergic Agonist Start: 03-19-2024 take 1 puff(s) by inhalation every six hours as needed for wheezing Albuterol Sulfate 90 mcg/actuation HFA aerosol inhaler Active 2 PUFF INHALATION Every 6 hours as needed for shortness of breath or wheezing March 19, 2024 12:00am Complies with drug therapy Start: 03-06-2024 take 2 puff(s) by in [...] Dihydropyridine Calcium Channel Linnea Start: 03-18-2024 End: 06-14-2025 take 1 tablet by mouth once daily amLODIPine (Norvasc) 10 MG tablet Indications: Essential hypertension, benign Take 1 tablet (10 mg) by mouth Daily 90 tablet 1 03/16/2025 06/14/2025 Active apixaban 5 mg oral tablet (13 sources) Factor Xa Inhibitor Start: 02-12-2025 take 2 tablets by mouth twice daily, then take 1 tablet by mouth twice daily Eliquis 5 MG tablet TAKE 2 TABLETS BY MOUTH TWICE DAILY FOR 4 DAYS and then TAKE 1 TABLET BY MOUTH TWICE DAILY thereafter 02/12/2025 Active 60 actuat budesonide 0.16 mg/actuat / formoterol fumarate 0.0045 mg/actuat metered dose inhaler (20 sources) Corticosteroid, beta2-Adrenergic Agonist Start: 06-23-2024 take 1 puff(s) by inhalation twice daily as needed for wheezing Budesonide-Formote rol 160-4.5 mcg/actuation HFA aerosol inhaler Active 2 PUFF INHALATION Twice daily as needed for shortness of breath or wheezing June 23, 2024 12:00am Complies with drug therapy Start: 05-04-2024 End: 04-07-2025 take 2 puff(s) by inhalation in the morning budesonide-formoterol (Symbicort) 160-4.5 MCG/ACT inhaler Indications: Chronic bronchitis, unspecified chronic bronchitis type (HCC) Inhale 2 puffs in the morning and 2 puffs before bedtime. Rinse mouth with water after use to reduce aftertaste and incidence of candidiasis. Do not swallow. 10.2 g 5 03/08/2025 Active Start: 03-19-2024 End: 06-23-2024 take 1 [...] before bedtime. 10.2 g 12 08/02/2022 Active cefdinir 300 mg oral capsule (13 sources) Cephalosporin Antibacterial Start: 02-12-2025 End: 04-07-2025 cefdinir (Omnicef) 300 MG capsule Take 600 mg by mouth Daily 02/12/2025 04/07/2025 Discontinued (Therapy completed) cloNIDine hydrochloride 0.1 mg oral tablet (7 sources) Central alpha-2 Adrenergic Agonist Start: 03-19-2024 take 1 tablet by mouth twice daily Clonidine Hcl 0.1 mg tablet Active 0.1 MG PO Twice daily 60 March 19, 2024 12:00am Complies with drug therapy diclofenac sodium 0.01 mg/mg topical gel (2 sources) Nonsteroidal Anti-inflammatory Drug Start: 04-07-2025 End: 04-17-2025 diclofenac sodium (Voltaren Arthritis Pain) 1 % gel Indications: Acute gout of left hand, unspecified cause Apply 2 g topically in the morning and 2 g in the evening and 2 g before bedtime. Do all this for 10 days. 50 g 04/07/2025 04/17/2025 Active doxepin hydrochloride 10 mg/ml oral solution (20 sources) Tricyclic Antidepressant Start: 09-15-2024 End: 07-06-2025 take 10 mg by mouth at bedtime doxepin (SINEquan) 10 MG/ML solution Indications: Fibromyalgia Take 10 mL (100 mg) by mouth at bedtime 900 mL 1 04/07/2025 07/06/2025 Active Start: 03-19-2024 take 1 capsule by mo uth once daily at bedtime Doxepin 100 mg capsule Active 100 MG PO Daily at bedtime March 19, 2024 12:00am Complies with drug therapy Start: 03-11-2024 End: 06-09-2024 take 10 mg by mouth at bedtime doxepin (SINEquan) 10 M G/ML solution Indications: Fibromyalgia Take 10 mL (100 mg) by mouth at bedtime 900 mL 1 03/11/2024 Active take 1 capsule by mo uth once daily doxepin (SINEquan) 10 mg capsule Take 1 capsule (10 mg total) by mouth nightly. Active doxycycline hyclate 100 mg oral tablet (2 sources) Tetracycline-class Drug Start: 04-07-2025 End: 04-17-2025 take 1 tablet by mouth in the morning doxycycline (Vibra-Tabs) 100 MG tablet Indications: Bronchitis Take 1 tablet (100 mg) by mouth in the morning and 1 tablet (100 mg) before bedtime. Do all this for 10 days. Take with a full glass of water and do not lie down for at least 30 minutes after. 20 tablet 04/07/2025 04/17/2025 Active gabapentin 600 mg oral tablet (20 sources) Anti-epileptic Agent Start: 03-19-2024 End: 06-06-2025 take 1 tablet by mouth in the morning gabapentin (Neurontin) 600 MG tablet Indications: Restless legs syndrome Take 1 tablet (600 mg) by mouth in the morning and 1 tablet (600 mg) before bedtime. 180 tablet 1 03/08/2025 06/06/2025 Active take 1 capsule by mo [facility] in the morning, then take 1 capsule by mouth at bedtime gabapentin (NEURONTIN) 300 mg capsule Take 1 capsule (300 mg total) by mouth in the morning and 1 capsule (300 mg total) before bedtime. Active ibuprofen 200 mg oral tablet (17 sources) Nonsteroidal Anti-inflammatory Drug End: 07-06-2024 take 1 tablet by mouth every six hours as needed for pain ibuprofen (ADVIL,MOTRIN) 200 mg tablet Take 1 tablet (200 mg total) by mouth every 6 (six) hours as needed for pain. Active levoFLOXacin 750 mg oral tablet (13 sources) Quinolone Antimicrobial Start: 02-12-2025 End: 04-07-2025 take 1 tablet by mouth once daily levoFLOXacin (Levaquin) 750 MG tablet TAKE 1 TABLET BY MOUTH ONCE DAILY x14 02/12/2025 04/07/2025 Discontinued (Therapy completed) levothyroxine sodium 0.112 mg oral tablet (20 sources) l-Thyroxine Start: 10-08-2024 End: 06-14-2025 take 1 tablet by mouth before mealtime levothyroxine (Synthroid, Levoxyl) 112 MCG tablet Indications: Hypothyroidism, unspecified type Take 1 tablet (112 mcg) by mouth in the morning. Take before meals. 90 tablet 03/16/2025 06/14/2025 Active Start: 03-18-2024 End: 12-05-2024 take 1 tablet by mouth once daily Levothyroxine 100 mcg tablet Active 100 MCG PO Daily March 19, 2024 12:00am Complies with drug therapy take 4 tablets by [facility] in the morning levothyroxine (SYNTHROID, LEVOTHROID) 25 MCG tablet Take 4 tablets (100 mcg total) by mouth in the morning. Active magnesium glycinate 100 mg oral tablet (17 sources) Start: 12-07-2024 take 1 capsule by mouth in the morning, then take 1 capsule by mouth in the evening, then take 1 capsule by mouth at bedtime Magnesium Glycinate 100 MG capsule Take 100 mg by mouth in the morning and 100 mg in the evening and 100 mg before bedtime. 12/07/2024 Active Magnesium Glycinate 100 mg magnesium capsule (4 sources) Start: 03-05-2025 take 1 capsule by mouth three times daily Magnesium Glycinate 100 mg magnesium capsule Active 100 MG PO Three times daily 270 90 March 05, 2025 11:40am Complies with drug therapy Start: 03-04-2025 End: 03-05-2025 take 1 capsule by mouth three times daily Magnesium Glycinate 100 mg magnesium capsule Discontinued 100 MG PO Three times daily 270 90 March 04, 2025 3:50pm March 05, 2025 11:40am Start: 12-02-2024 End: 03-04-2025 take 1 capsule by mouth three times daily Magnesium Glycinate 100 mg magnesium capsule Discontinued 100 MG PO Three times daily December 02, 2024 12:00am March 04, 2025 3:51pm Start: 12-02-2024 take 1 capsule by mo ut three times daily Magnesium Glycinate 100 mg [...] 19, 2024 12:00am March 19, 2024 9:41am 100 ml magnesium sulfate 40 mg/ml injection (2 sources) Start: 04-06-2025 Magnesium Sulf ate In Water 4 gram/100 mL (4 %) piggyback Active 4 GM IV EVERY 2 WEEKS April 06, 2025 2:46pm Standing order for Magnesium level below 1.5. administer over 2-4 hrs Complies with drug therapy Start: 11-24-2024 End: 04-06-2025 Magnesium Sulfate In Water 4 gram/100 mL (4 %) piggyback Discontinued 4 GM IV Once November 24, 2024 1:00am April 06, 2025 2:56pm administer over 2-4 hrs Magnesium Sulfate In Water 4 gram/100 mL [...] sources) Leukotriene Receptor Antagonist Start: 03-18-2024 End: 06-14-2025 take 1 tablet by mouth at bedtime montelukast (Singulair) 10 MG tablet Indications: Atopic dermatitis, unspecified type Take 1 tablet (10 mg) by mouth at bedtime 90 tablet 1 03/16/2025 06/14/2025 Active Naltrexone (14 sources) Opioid Antagonist Start: 03-19-2024 take 1 capsule by mouth once daily Naltrexone 4.5 mg capsule Active 4.5 MG PO .QD March 19, 2024 9:40am Complies with drug therapy Start: 03-19-2024 take 1 capsule by mo [...] oral tablet (20 sources) Start: 03-18-2024 End: 06-14-2025 take 1 tablet by mouth once daily nebivolol (Bystolic) 10 MG tablet Indications: Essential hypertension, benign Take 1 tablet (10 mg) by mouth Daily 90 tablet 1 03/16/2025 06/14/2025 Active take 1 tablet by mouth in the mo rning nebivoloL (BYSTOLIC) 5 mg tablet Take 1 tablet (5 mg total) by mouth in the morning. Active omeprazole 40 mg delayed release oral capsule (20 sources) Proton Pump Inhibitor Start: 07-09-2024 End: 06-14-2025 take 1 capsule by mouth before mealtime omeprazole (PriLOSEC) [address] capsule Indications: Gastroesophageal reflux disease, unspecified whether esophagitis present Take 1 capsule (40 mg) by mouth in the morning. Take before meals. Do not crush or chew. 90 capsule 1 03/16/2025 06/14/2025 Active Start: 06-23-2024 End: 06-24-2024 Omeprazole 40 mg capsule,del ayed release(DR/EC) Discontinued 40 MG PO Every 72 hours June 23, 2024 12:00am June 24, 2024 8:41am Start: 03-19-2024 End: 07-09-2024 take 1 capsule by mouth once daily Omeprazole 40 mg capsule,delayed release(DR/EC) Discontinued 40 MG PO Daily June 24, 2024 8:41am July 09, 2024 1:23pm pravastatin sodium 20 mg oral tablet (20 [...] Angiotensin 2 Receptor Linnea Start: 09-29-19 End: 06-06-20 take 1 tablet by mouth once daily valsartan (Diovan) 320 MG tablet Indications: Essential hypertension, benign Take 1 tablet (320 mg) by mouth Daily 90 tablet 1 03/08/2025 06/06/2025 Active Completed/Discontinued Medications Medication Drug Class(es) Dates [...] 23, 2024 5:47pm June 23, 2024 10:40am SPIRONOLACTONE, BULK, MISC (1 source) End: 04-27-2024 SPIRONOLACTONE, BULK, MISC b y miscellaneous route. 04/27/2024 Discontinued (Therapy completed) Problems Active Problems Problem Classification Problem Date Documented Da te Episodic/Chronic Acute and unspecified renal failure (15 sources) Acute renal failure syndrome; Translations: [Acute kidney failure, unspecified] Onset: 5 02-17-2025 Episodic Allergic reactions (20 sources) Atopic dermatitis; Translations: [Atopic dermatitis, unspecified] Onset: 4 11-26-2023 Chronic Asthma (2 sources) Uncomplicated mild persistent asthma; Translations: [Mild persistent asthma, uncomplicated] Onset: 2 08-02-2022 Chronic Chronic kidney disease (19 sources) Chronic kidney disease stage 3A ; Translations: [Chronic kidney disease, stage 3a (HCC)] Onset: 5 01-06-2025 Chronic Chronic obstructive pulmonary disease and bronchiectasis (20 sources) Chronic bronchitis; Translations: [Unspecified chronic bronchitis] Onset: 4 Resolved: 5 03-06-2024 Chronic Chronic obstructive pulmonary disease and bronchiectasis (4 sources) Bronchitis; Translations: [Bronchitis, not specified as acute or chronic] Onset: 5 04-07-2025 Episodic Chronic ulcer of skin (1 source) Non-pressure chronic ulcer of unspecified part of unspecified lower leg with unspecified severity; Translations: [Non-pressure chronic ulcer of unspecified part of unspecified lower leg with unspecified severity] Onset: 5 Chronic Disorders of lipid metabolism (20 sources) Hyperlipidemia; Translations: [Hyperlipidemia, unspecified] Onset: 3 08-19-2023 Chronic Esophageal disorders (20 sources) Gastroesophageal reflux disease; Translations: [Gastro-esophageal reflux disease without esophagitis] Onset: 3 Resolved: 5 03-19-2024 Chronic Essential hypertension (20 sources) Essential (primary) hypertension; Translations: [Essential hypertension] Onset: 2 03-19-2024 Chronic Fluid and electrolyte disorders (10 sources) Hypokalemia; Translations: [Disorder of electrolytes] Onset: 2 Episodic Gout and other crystal arthropathies (4 sources) Gouty arthritis of left hand; Translations: [Gout, unspecified] Onset: 5 04-07-2025 Chronic Heart valve disorders (1 source) Nonrheumatic pulmonary valve insufficiency; 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 INSUFF] Onset: 2 Chronic Osteoarthritis (20 sources) Arthritis; Translations: [Unspecified osteoarthritis, unspecified site] Onset: 3 08-19-2023 Chronic Other aftercare (1 source) Encounter for follow-up examination after completed treatment for conditions other than malignant neoplasm; Translations: [Encounter for follow-up examination after completed treatment for conditions other than malignant neoplasm] Onset: 5 Episodic Other and ill-defined heart disease (20 sources) Left ventricular cardiac dysfunction; Translations: [Heart disease, unspecified] Onset: 2 11-26-2023 Chronic Other connective tissue disease (20 sources) Fibromyalgia; Translations: [Fibromyalgia] Onset: 3 08-19-2023 Episodic Other diseases of veins and lymphatics (2 sources) Peripheral venous insufficiency; Translations: [Venous insufficiency (chronic) (peripheral)] 04-01-2025 Episodic Other diseases of veins and lymphatics (1 source) Venous insufficiency (chronic) (peripheral); Translations: [Venous insufficiency (chronic) (peripheral)] Onset: 5 Episodic Other hereditary and degenerative nervous system conditions (20 sources) Restless legs; Translations: [Restless legs syndrome] Onset: 3 08-19-2023 Chronic Other inflammatory condition of skin (20 sources) Psoriasis; Translations: [Psoriasis, unspecified] Onset: 4 11-26-2023 Chronic Other nervous system disorders (20 sources) Compression injury of nerve; 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, unspecified] Onset: 4 11-26-2023 Chronic Other nervous system disorders (20 sources) Bilateral carpal tunnel syndrome; Translations: [Carpal tunnel syndrome, bilateral upper limbs] Onset: 4 12-29-2023 Chronic Other nervous system disorders (4 sources) Lesion of ulnar nerve, right upper limb; Translations: [Lesion of ulnar nerve] 06-30-2024 Chronic Other nutritional; endocrine; and metabolic disorders (1 source) Obesity, unspecified; Translations: [OBESITY UNSPECIFIED] Onset: 2 Chronic Other nutritional; endocrine; and metabolic disorders (1 source) Body mass index (BMI) 30.0-30.9, adult; Translations: [BODY MASS INDEX BMI 30.0-30.9 ADULT] Onset: 2 Chronic Other nutritional; endocrine; and metabolic disorders (6 sources) Hypomagnesemia; Translations: [Disorders of magnesium metabolism] Onset: 2 03-19-2024 Chronic Other nutritional; endocrine; and metabolic disorders (20 sources) Hypomagnesemia; Translations: [Hypomagnesemia] Onset: 3 03-19-2024 Chronic Other nutritional; endocrine; and metabolic disorders (20 sources) Body mass index 30+ - obesity; Translations: [Obesity, unspecified] Onset: 4 Resolved: 5 02-26-2024 Chronic Other nutritional; endocrine; and metabolic disorders (20 sources) Obesity caused by energy imbalance; Translations: [Morbid (severe) obesity due to excess calories] Onset: 5 10-07-2024 Chronic Phlebitis; thrombophlebitis and thromboembolism (10 sources) Chronic deep venous thrombosis of popliteal vein of left leg; Translations: [Chronic embolism and thrombosis of left popliteal vein] Onset: 5 04-01-2025 Chronic Pulmonary heart disease (20 sources) Pulmonary hypertension; Translations: [Pulmonary hypertension, unspecified] Onset: 2 11-26-2023 Chronic Residual codes; unclassified (20 sources) Hypersomnia; Translations: [Hypersomnia, unspecified] Onset: 4 02-02-2024 Chronic Residual codes; unclassified (20 sources) Obstructive sleep apnea syndrome; Translations: [Obstructive sleep apnea (adult) (pediatric)] Onset: 4 12-29-2023 Chronic Skin and subcutaneous tissue infections (19 sources) Cellulitis of left lower limb; Translations: [Cellulitis of left lower limb] Onset: 5 02-17-2025 Episodic Spondylosis; intervertebral disc disorders; other back problems (20 sources) Degeneration of cervical intervertebral disc; Translations: [Other cervical disc degeneration, unspecified cervical region] Onset: 4 02-02-2024 Chronic Substance-related disorders (20 sources) Nicotine dependence; Translations: [Nicotine dependence, unspecified, uncomplicated] Onset: 3 08-19-2023 Chronic Thyroid disorders (20 sources) Hypothyroidism, unspecified; Translations: [Hypothyroidism] Onset: 2 Chronic Unclassified (1 source) right ulnar neuropathy Onset: 4 Unclassified (1 source) Cellulitis of left lower extremity Left leg swelling Onset: 5 Varicose veins of lower extremity (8 sources) Varicose veins of unspecified lower extremity with both ulcer of unspecified site and inflammation; Translations: [Varicose veins of lower extremities with ulcer and inflammation] Onset: 04-01-2025 Episodic Past or Other Problems Problem Classification Problem Date Documented Da te Episodic/Chronic Abdominal pain (20 sources) Indigestion; Translations: [Epigastric pain] Onset: 07-06-2024 06-24-2024 Episodic Diabetes mellitus without complication (20 sources) Hyperglycemia, unspecified; Translations: [Hyperglycemia] Onset: 12-28-2021 08-19-2023 Episodic Gastroduodenal ulcer (except hemorrhage) (20 sources) Acute gastric ulcer without hemorrhage AND [...] 11-26-2023 11-26-2023 Episodic Other lower respiratory disease (2 sources) Radiologic infiltrate of lung ; Translations: [Other [...] unspecified, uncomplicated] Onset: 11-26-2023 11-26-2023 Episodic Syncope (7 sources) Syncope and collapse; Translations: [Syncope and collapse] Onset: 12-15-2021 Episodic Results Test Name Value Interpretation Reference Range Facility ALL BASIC METABOLIC PANELon 03-31-2025 Anion gap [Moles/Vol] 13.7 mmol/L [facility] Calcium [Mass/Vol] 7.9 mg/dL Low 8.5 - 10. 1 mg/dL [facility] Chloride [Moles/Vol] 107 mmol/L 98 - 10 7 mmol/L [facility] CO2 [Moles/Vol] 28.8 mmol/L 21.0 - 32.0 mmol/L [facility] Creatinine [Mass/Vol] 1.04 mg/dL 0.70 - 1.30 mg/dL [facility] GFR/1.73 sq M.predicted CKD-EPI (S/P/Bld) [Vol rate/Area] >60 >=60 mL/min/1.73m 2 [facility] Glucose [Mass/Vol] 130 mg/dL High 74 - 106 mg/dL [facility] Interpretation and review of laboratory results Abnormal [facility] Potassium [Moles/Vol] 3.5 mmol/L 3.5 - 5.1 mmol/L [facility] Sodium [Moles/Vol] 146 mmol/L High 136 - 145 mmol/L [facility] TBH EGFR-NON AF NICARAGUAN >60 >=60 mL/min/1.73m 2 [facility] Urea nitrogen [Mass/Vol] 15 mg/dL 7.0 - 18.0 mg/dL [facility] Urea nitrogen/Creatinine [Mass ratio] 14.4 mg/mg [facility] ALL CBC WITH AUTO DIFFon BASOPHILS ABSOLUTE AUTO 0.1 [facility] Basophils/100 WBC (Bld) 0.7 % 0.2 - 2.0 % [facility] Eosinophils/100 WBC (Bld) 9.5 % High 0.9 - 7.0 % [facility] Erythrocyte distribution width (RBC) [Ratio] 15 % 11.0 - 15.0 % [facility] Hematocrit (Bld) [Volume fraction] 38.3 % Low 42.0 - 54.0 % [facility] Hemoglobin (Bld) [Mass/Vol] 12.5 g/dL Low 14.0 - 18.0 g/dL [facility] IMMATURE GRANULOCYTES ABS AUTO 0.03 [facility] Immature granulocytes/100 WBC (Bld) 0.3 % 0.0 - 0.5 % [facility] Interpretation and review of laboratory results Abnormal [facility] LYMPHOCYTES ABSOLUTE AUTO 1.9 [facility] Lymphocytes/100 WBC (Bld) 20.4 % Low 20.5 - 60.0 % [facility] MCH (RBC) [Entitic mass] 31.8 pg 25.9 - 34.0 pg [facility] MCHC (RBC) [Mass/Vol] 32.6 g/dL 29.9 - 35.2 g/dL [facility] MCV (RBC) [Entitic vol] 97.5 fL High 80.0 - 94.0 fL [facility] MONOCYTES ABSOLUTE AUTO 0.5 [facility] Monocytes/100 WBC (Bld) 5.2 % 1.7 - 12.0 % [facility] NEUTROPHILS ABSOLUTE AUTO 5.8 [facility] Neutrophils/100 WBC (Bld) 63.9 % 43.0 - 75.0 % [facility] Platelet mean volume (Bld) [Entitic vol] 9.8 fL 9.5 - 13.5 fL [facility] TBH EO # 0.9 High [facility] TB PLT 277 [facility] RBC 3.93 Low [facility] WBC 9.1 [facility] Laboratory - Chemistry and C hemistry - challengeOrdered By: Tang Hamiltno on 03-17-2025 Magnesium [Mass/Vol] 0.2 mg/dL Critically low 1.8-2.4 [facility] Comment on above: RESULTS CALLED TO TO JAVI GIBSON LPN No Panel InformationOrdered By: Tang Hamilton on 03-17-2025 Phosphorus Level 2.7 mg/dL 2.6-4.7 [facility] ALL CBC WITH AUTO DIFFon BASOPHILS ABSOLUTE AUTO 0.1 [facility] Basophils/100 WBC (Bld) 0.8 % 0.2 - 2.0 % [facility] Eosinophils/100 WBC (Bld) 6.2 % 0.9 - 7.0 % [facility] Erythrocyte distribution width (RBC) [Ratio] 13.7 % 11.0 - 15.0 % [facility] Hematocrit (Bld) [Volume fraction] 42 % 42.0 - 54.0 % [facility] Hemoglobin (Bld) [Mass/Vol] 13.6 g/dL Low 14.0 - 18.0 g/dL [facility] IMMATURE GRANULOCYTES ABS AUTO 0.03 [facility] Immature granulocytes/100 WBC (Bld) 0.3 % 0.0 - 0.5 % [facility] Interpretation and review of laboratory results Abnormal [facility] LYMPHOCYTES ABSOLUTE AUTO 1.8 [facility] Lymphocytes/100 WBC (Bld) 21 % 20.5 - 60.0 % [facility] MCH (RBC) [Entitic mass] 31.1 pg 25.9 - 34.0 pg [facility] MCHC (RBC) [Mass/Vol] 32.4 g/dL 29.9 - 35.2 g/dL [facility] MCV (RBC) [Entitic vol] 95.9 fL High 80.0 - 94.0 fL [facility] MONOCYTES ABSOLUTE AUTO 0.5 [facility] Monocytes/100 WBC (Bld) 6.1 % 1.7 - 12.0 % [facility] NEUTROPHILS ABSOLUTE AUTO 5.8 [facility] Neutrophils/100 WBC (Bld) 65.6 % 43.0 - 75.0 % [facility] Platelet mean volume (Bld) [Entitic vol] 9.6 fL 9.5 - 13.5 fL [facility] EO # 0.5 [facility] PLT 306 [facility] RBC 4.38 Low [facility] WBC 8.8 [facility] ALL MAGNESIUMon 11-24-2024 Interpretation and review of laboratory results Abnormal [facility] Magnesium [Mass/Vol] 1.1 mg/dL Low 1.8 - 2 .4 mg/dL [facility] Laboratory - Chemistry and C hemistry - challengeon 11-24-2024 Magnesium [Mass/Vol] 1.1 mg/dL Low 1.8-2.[address] [facility] ALL MAGNESIUMon 11-05-2024 Interpretation and review of laboratory results Abnormal [facility] Magnesium [Mass/Vol] 0.7 mg/dL Critically low 1.8 - 2.4 mg/dL [facility] Comment on above: RESULTS CALLED TO EZEQUIEL BOOTH MA AT OFFICE BY Violeta Gold at 1056 [facility] ALL MAGNESIUMon 10-07-2024 Interpretation and review of laboratory results Abnormal [facility] Magnesium [Mass/Vol] 0.8 mg/dL Critically low 1.8 - 2.4 mg/dL [facility] Comment on above: RESULTS CALLED TO [facility] THYROID STIM HORMONEon 0 10-07-2024 TSH Qn 2.054 m[IU]/L [facility] HbA1c (Bld) [Mass fraction]o n 10-07-2024 Interpretation and review of laboratory results Normal [facility] Laboratory - Hematology and Cell countson 10-07-2024 HbA1c (Bld) [Mass fraction] 5.60 % [facility] No Panel Informationon 10-07 [facility] Amphetamine Screen Ql (U)Ord ered By: James Elaine on 10-06-2024 Amphetamines Ql (U) Amphetamines screen Negativ e [facility] Barbiturates [Presence] in U rine by Screen methodOrdered By: James Elaine on 10-06-2024 Barbiturates Screen Ql (U) Barbiturates [Presence] in Urine by Screen method Negative [facility] Benzodiazepines Screen Ql (U )Ordered By: James Elaine on 10-06-2024 Benzodiazepines Ql (U) Benzodiazepines [Presence] in Urine by Screen method Negative [facility] Benzoylecgonine [Presence] i n Urine by Screen methodOrdered By: rosalie Elaine on 10-06-2024 Benzoylecgonine Screen Ql (U) Benzoylecgonine [Presence] in Urine by Screen method Negative [facility] Cannabinoids [Presence] in U rine by Screen methodOrdered By: James Elaine on 10-06-2024 Cannabinoids Screen Ql (U) Cannabinoids [Presence] in Urine by Screen method High Negative [facility] Comment on above: These are unconfirme d [...] Performed By: #### U RDS #### [address] Barbiturate Screen,Urine Negative Normal Negative [facility] Comment on above: Performed By: #### U RDS #### [place] [address] [place] Benzodiazepines Screen,Urine Negative Normal Negative [facility] Comment on above: Performed By: #### U RDS #### [place] [address] [place] Cannabinoid Screen,Urine Positive High Negative [facility] Comment on above: Result Comment: Thes e are unconfirmed results and should not be used for legal purposes. Drug Cut-Off Concentration: AMPH 1000 ng/mL MAX 200 ng/mL JUHI 200 ng/mL COCM 300 ng/mL OP 300 ng/mL PCP 25 ng/mL THC 20 ng/mL PERFORMED BY: [place] [address] PATHOLOGIST [employer] ROBERT GRIMES M.D. Performed By: #### U RDS #### [facility] [address] Cocaine Screen,Urine Negative Normal Negative [facility] Comment on above: Performed By: #### U RDS #### [facility] [address] Opiate Screen,Urine Negative Normal Negative [facility] Comment on above: Performed By: #### U RDS #### [address] Phencyclidine Screen,Urine Negative Normal Negative [facility] Comment on above: Performed By: #### U RDS #### [address] Luciano 10-06-2024 L Specimen: [id number] Received: 10/06/24 Status: SAHIL Ruiz Num: [id number] Spec Type: Surgical Subm Dr: James Elaine MD Tissues: A Esophagus Biopsy (ESOPHAGUS BX R/O BARRETTS) Procedures: HE/2, Gross/Micro L4 Age/ Patient Sex Location Account Attending Physician Abram Guillaume 58/M [id number] James Elaine MD SPEC NUM: [id number] RECD: 10/06/24 STATUS: SAHIL RUIZ NUM: [id number] PHILLIP: 10/06/[address] [facility] DR: James Elaine MD ENTERED: 10/06/[address] [facility] [address]: SPEC TYPE: Surgical DEPT: S ENTERED BY: [id number] RECV BY: [id number] ORDERED: HE/2, Gross/Micro L4 ORDERED: HE/2, Gross/Micro [...] Microscopic Description Microscopic examination is performed. Specimen: [id number] Received: 10/06/24 Status: SAHIL Ruiz Num: [id number] Spec Type: Surgical Subm Dr: James Elaine MD Tissues: A Esophagus Biopsy (ESOPHAGUS BX R/O BARRETTS) Procedures: Twila MARIEE/Matt L4 Patient: Abram Guillaume [id number] (Continued) Specimen: [id number] Received: 10/06/24 (Continued) Signed (signature on file) Sandro Baird MD 10/07/24 1009 Specimen: [id number] Received: 10/06/24 Status: SAHIL Ruiz Num: [id number] Spec Type: Surgical Subm Dr: James Elaine MD Tissues: A Esophagus Biopsy (ESOPHAGUS BX R/O BARRETTS) Procedures: Twila MARIEE/Matt L4 Patient: Abram Guillaume [id number] (Continued) Specimen: S2 Received: 10/06/24 (Continued) CPT Codes 07318 Specimen: S2 Received: 10/06/24 Status: SAHIL Ruiz Num: [id number] Spec Type: Surgical Subm Dr: James Elaine MD Tissues: A Esophagus Biopsy (ESOPHAGUS BX R/O BARRETTS) Procedures: HE/2, Gross/Micro L4 Patient: Abram Guillaume [id number] (Continued) Signed (signature on file) Sandro Baird MD 10/07/24 1009 Normal [facility] Opiates [Presence] in Urine by Screen methodOrdered By: James Elaine on 10-06-2024 Opiates Screen Ql (U) Opiates [Presence] in Urine by Screen method Negative [facility] Phencyclidine Screen Ql (U)O rdered By: James Elaine on 10-06-2024 Phencyclidine Ql (U) Phencyclidine [Presence] in Urine by Screen method Negative [facility] ALL BASIC METABOLIC PANELon 09-28-2024 Anion gap [Moles/Vol] 14.1 mmol/L [facility] Calcium [Mass/Vol] 8.3 mg/dL Low 8.5 [...] 137 mg/dL High 74 - 106 mg/dL [facility] Potassium [Moles/Vol] 3.5 mmol/L 3.5 - 5.1 mmol/L [facility] Sodium [Moles/Vol] 143 mmol/L 136 - 145 mmol/L [facility] TBH EGFR-NON AF NICARAGUAN 45 Low >=60 mL/min/1.73m 2 [facility] Urea nitrogen [Mass/Vol] 17 mg/dL 7.0 - 18.0 mg/dL [facility] Urea nitrogen/Creatinine [Mass ratio] 10.6 mg/mg [facility] ALL MAGNESIUMon 09-28-2024 Magnesium [Mass/Vol] 0.8 mg/dL Critically low 1.8 - 2.4 mg/dL [facility] Comment on above: RESULTS CALLED TO ELIZABETH SEXTON NP No Panel Informationon 09-28 Interpretation and review of laboratory results Abnormal [facility] Amphetamine Screen Ql (U)Ord ered By: ad Asaad on 07-09-2024 Amphetamines Ql (U) Amphetamines screen Negativ e [facility] Amphetamines Ql (U) Negative Negative [facility] Barbiturates [Presence] in U rine by Screen methodOrdered By: Imad Asaad on 07-09-2024 Barbiturates Screen Ql (U) Negative Negative [facility] Barbiturates Screen Ql (U) Barbiturates [Presence] in Urine by Screen method Negative [facility] Benzodiazepines Screen Ql (U )Ordered By: Imad Asaad on 07-09-2024 Benzodiazepines Ql (U) Negative Negative [facility] Benzodiazepines Ql (U) Benzodiazepines [Presence] in Urine by Screen method Negative [facility] Benzoylecgonine [Presence] i n Urine by Screen methodOrdered By: Imad Asaad on 07-09-2024 Benzoylecgonine Screen Ql (U) Negative Negative [facility] Benzoylecgonine Screen Ql (U) Benzoylecgonine [Presence] in Urine by Screen method Negative [facility] Cannabinoids [Presence] in U rine by Screen methodOrdered By: Imad Asaad on 07-09-2024 Cannabinoids Screen Ql (U) Negative Negative [facility] Comment on above: These are unconfirme d results and should not be used for legal purposes. Drug Cut-Off Concentration: AMPH 1000 ng/mL MAX 200 ng/mL JUHI 200 ng/mL COCM 300 ng/mL OP 300 ng/mL PCP 25 ng/mL THC 20 ng/mL Cannabinoids Screen Ql (U) Cannabinoids [Presence] in Urine by Screen method Negative [facility] Comment on above: These are unconfirme d results and should not be used for legal purposes. Drug Cut-Off Concentration: AMPH 1000 ng/mL MAX 200 ng/mL JUHI 200 ng/mL COCM 300 ng/mL OP 300 ng/mL PCP 25 ng/mL THC 20 ng/mL Drug Screen,Urineon 07-09-20 Amphetamine Screen,Urine Negative Normal Negative [facility] Comment on above: Performed By: #### U RDS #### [address] Barbiturate Screen,Urine Negative Normal Negative [facility] Comment on above: Performed By: #### U RDS #### [address] Benzodiazepines Screen,Urine Negative Normal Negative [facility] Comment on above: Performed By: #### U RDS #### [address] Cannabinoid Screen,Urine Negative Normal Negative [facility] Comment on above: Result Comment: Thes e are unconfirmed results and should not be used for legal purposes. Drug Cut-Off Concentration: AMPH 1000 ng/mL MAX 200 ng/mL JUHI 200 ng/mL COCM 300 ng/mL OP 300 ng/mL PCP 25 ng/mL THC 20 ng/mL PERFORMED BY: [place] [address] PATHOLOGIST [employer] ZUHAIR KAUR M.D. Performed By: #### U RDS #### [address] Cocaine Screen,Urine Negative Normal Negative [facility] Comment on above: Performed By: #### U RDS #### [place] [address] [place] Opiate Screen,Urine Negative Normal Negative [facility] Comment on above: Performed By: #### U RDS #### [address] Phencyclidine Screen,Urine Negative Normal Negative [facility] Comment on above: Performed By: #### U RDS #### [facility] [address] No Panel InformationOrdered By: Imrosalie Elaine on 07-09-2024 Miscellaneous Pathology Test See comment [facility] Comment on above: See report. Scanned copy available in EMR. Opiates [Presence] in Urine by Screen methodOrdered By: Imad Asaad on 07-09-2024 Opiates Screen Ql (U) Negative Negative [facility] Opiates Screen Ql (U) Opiates [Presence] in Urine by Screen method Negative [facility] Pathology Request for Lab Co rpon 07-09-2024 Pathology Request for Lab Itzel Normal [facility] Comment on above: Order Comment: PATHO LOGY GI SPECIMEN Result Comment: See report. Scanned copy available in EMR. PERFORMED BY: [place] [address] PATHOLOGIST [employer]ST[employer]ER ZUHAIR KAUR M.D. Performed By: #### P ATH TO [facility] #### [facility] [address] Phencyclidine Screen Ql (U)O rdered By: Imrosalie Elaine on 07-09-2024 Phencyclidine Ql (U) Negative Negative [facility] Phencyclidine Ql (U) Phencyclidine [Presence] in Urine by Screen method Negative [facility] ALL MAGNESIUMon 06-23-2024 Magnesium [Mass/Vol] 1.5 mg/dL Low 1.8 - 2 .4 mg/dL [facility] ALL RENAL FUNCTION PANELon 1 Albumin [Mass/Vol] 3.3 g/dL Low 3.4 - 5.0 g/dL [facility] Anion gap [Moles/Vol] 12.6 mmol/L [facility] Calcium [Mass/Vol] 8.7 mg/dL 8.5 - 10. 1 mg/dL [facility] Chloride [Moles/Vol] 104 mmol/L 98 - 10 7 mmol/L [facility] CO2 [Moles/Vol] 26.1 mmol/L 21.0 - 32.0 mmol/L [facility] Creatinine [Mass/Vol] 1.72 mg/dL High 0.70 - 1.30 mg/dL [facility] GFR/1.73 sq M.predicted CKD-EPI (S/P/Bld) [Vol rate/Area] 50 Low 60 - PINF [facility] Glucose [Mass/Vol] 114 mg/dL High 74 - 106 mg/dL [facility] Phosphate [Mass/Vol] 3.2 mg/dL 2.6 - 4 .7 mg/dL [facility] Potassium [Moles/Vol] 4.7 mmol/L 3.5 - 5.1 mmol/L [facility] Sodium [Moles/Vol] 138 mmol/L 136 - 145 mmol/L [facility] EGFR-NON AF NICARAGUAN 41 Low 60 - PINF [facility] Urea nitrogen [Mass/Vol] 30.0 mg/dL High 7.0 - 18.0 mg/dL [facility] Urea nitrogen/Creatinine [Mass ratio] 17.4 mg/mg [facility] ALL URIC ACIDon 06-23-2024 Urate [Mass/Vol] 8.0 mg/dL High 3.5 - 7.2 mg/dL [facility] Estimated glomerular filtrat ion rate (GFR) non- Americanon 06-23-2024 GFR/1.73 sq M.predicted among non-blacks MDRD (S/P/Bld) [Vol rate/Area] 41 mL/min/{1.73_m2} Low >=60 [facility] Laboratory - Chemistry and C hemistry - challengeon 06-23-2024 Albumin [Mass/Vol] 3.3 g/dL Low 3.4-5.0 [facility] Calcium [Mass/Vol] 8.7 mg/dL 8.5-10.1 [facility] Chloride [Moles/Vol] 104 mmol/L 98-[address] [facility] CO2 [Moles/Vol] 26.1 mmol/L 21.0-32.0 [facility] Creatinine [Mass/Vol] 1.72 mg/dL High 0.70-1.30 [facility] GFR/1.73 sq M.predicted MDRD (S/P/Bld) [Vol rate/Area] 50 mL/min/{1.73_m2} Low >=60 [facility] Glucose [Mass/Vol] 114 mg/dL High 74-106 [facility] Magnesium [Mass/Vol] 1.5 mg/dL Low 1.8-2.[address] [facility] Potassium [Moles/Vol] 4.7 mmol/L 3.5-5.1 [facility] Sodium [Moles/Vol] 138 mmol/L 136-145 [facility] Urate [Mass/Vol] 8.0 mg/dL High 3.5-7.2 [facility] Urea nitrogen [Mass/Vol] 30.0 mg/dL High 7.0-18.0 [facility] Urea nitrogen/Creatinine [Mass ratio] 17.4 mg/mg [facility] Laboratory - Urinalysison Protein (U) [Mass/Vol] 12.6 mg/dL High <=11.9 [facility] No Panel Informationon 06-23 Urine Random Creatinine 78.13 mg/dL 20.00-300.00 [facility] Interpretation and review of laboratory results Abnormal [facility] Phosphorus Level 3.2 mg/dL 2.6-4.7 [facility] Serum or plasma anion gap de terminationon 06-23-2024 Anion gap [Moles/Vol] 12.6 mmol/L [facility] Urine protein/creatinine rat ioon 06-23-2024 Protein/Creatinine (U) [Ratio] 0.16 [facility] BASIC METABOLIC PANLon 04-27 Anion gap [Moles/Vol] 9 mmol/L Normal 5-15 [facility] Comment on above: Performed By: #### B MP #### [facility] ([id number]) [address], [address] [place] [address] Calcium [Mass/Vol] 9.5 mg/dL Normal 8.5-10.5 [facility] Comment on above: Performed By: #### B MP #### [facility] ([id number]) [address] [place] [address] Chloride [Moles/Vol] 105 mmol/L Normal 98-[address] [facility] Comment on above: Performed By: #### B MP #### [facility] ([id number]) [address], [address] [place] [address] CO2 [Moles/Vol] 25 mmol/L Normal 22-32 [facility] Comment on above: Performed By: #### B MP #### [facility] ([id number]) [address], [address] [place] [address] Creatinine [Mass/Vol] 1.60 mg/dL High 0.60-1.30 [facility] Comment on above: Result Comment: METH OD TRACEABLE TO IDMS STANDARD Performed By: #### B MP #### [facility] ([id number]) [address], [address] [place] [address] GFR/1.73 sq M.predicted among non-blacks MDRD (S/P/Bld) [Vol rate/Area] 50 mL/min/{1.73_m2} Low >59 [facility] Comment on above: Result Comment: Reported eGFR is based on the CKD-EPI 2020 equation that does not use a race coefficient. Performed By: #### B MP #### [facility] ([id number]) [address], [address] [place] [address] Glucose [Mass/Vol] 104 mg/dL High 65-99 [facility] Comment on above: Performed By: #### B MP #### [facility] ([id number]) [address] [place] [address] Potassium [Moles/Vol] 4.2 mmol/L Normal 3.5-5.0 [facility] Comment on above: Performed By: #### B MP #### [facility] ([id number]) [address], [address] [place] [address] Sodium [Moles/Vol] 139 mmol/L Normal 134-146 [facility] Comment on above: Performed By: #### B MP #### [facility] ([id number]) [address], [address] [place] [address] Urea nitrogen [Mass/Vol] 31 mg/dL High 5-23 [facility] Comment on above: Performed By: #### B MP #### [facility] ([id number]) [address], [address] [place] [address] Basic Metabolic Panelon 080 Anion gap [Moles/Vol] 9 mmol/L 5 - 15 mmol/L [facility] Calcium [Mass/Vol] 9.5 mg/dL 8.5 - 10. 5 mg/dL [facility] Chloride [Moles/Vol] 105 mmol/L 98 - 10 9 mmol/L [facility] CO2 [Moles/Vol] 25 mmol/L 22 - 32 mmol/L [facility] Creatinine [Mass/Vol] 1.60 mg/dL High 0.60 - 1.30 mg/dL [facility] Comment on above: METHOD TRACEABLE TO IDPR STANDARD eGFR (CKD-EPI)non-race dependent 50 Low - PINF [facility] Comment on above: Reported eGFR is based on the CKD-EPI 2020 equation that does not use a race coefficient. Glucose [Mass/Vol] 104 mg/dL High 65 - 99 mg/dL [facility] Interpretation and review of laboratory results Abnormal [facility] Potassium [Moles/Vol] 4.2 mmol/L 3.5 - 5.0 mmol/L [facility] Sodium [Moles/Vol] 139 mmol/L 134 - 146 mmol/L [facility] Urea nitrogen [Mass/Vol] 31 mg/dL High 5 - 23 mg/dL [facility] CBC AUTO DIFFon 07-19-2022 BASO # 0.1 103/ul Normal 0.0-0.1 [facility] Comment on above: Performed By: #### C BC #### [facility] [address] [address] [address] Lavonne Tinoco Basophils/100 WBC (Bld) 0.9 % Normal 0.2-2.0 [facility] Comment on above: Performed By: #### C BC #### [facility] [address] [place] [address] Dr. Lavonne Tinoco EO # 0.4 103/ul Normal 0.0-0.7 [facility] Comment on above: Performed By: #### C BC #### [facility] [address] [place] [address] Dr. Lavonne Tinoco Eosinophils/100 WBC (Bld) 4.5 % Normal 0.9-7.0 [facility] Comment on above: Performed By: #### C BC #### [facility] [address] [place] [address] Dr. Lavonne Tinoco Erythrocyte distribution width (RBC) [Ratio] 13.4 % Normal 11.0-15.0 [facility] Comment on above: Performed By: #### C BC #### [facility] [address] [place] [address] Dr. Lavonne Tinoco Hematocrit (Bld) [Volume fraction] 45.0 % Normal 42.0-54.0 [facility] Comment on above: Performed By: #### C BC #### [facility] [address] [place] [address] Dr. Lavonne Tinoco Hemoglobin (Bld) [Mass/Vol] 15.1 g/dL Normal 14.0-18.0 [facility] Comment on above: Performed By: #### C BC #### [facility] [address] [place] [address] Dr. Lavonne Tinoco IG # 0.04 10e3/ul Critically high 0.00-0.03 [facility] Comment on above: Performed By: #### C BC #### [facility] [address] [place] [address] Dr. Lavonne Tinoco IG % 0.4 % Normal 0.0-0.5 [facility] Comment on above: Performed By: #### C BC #### [facility] [address] [place] [address] Dr. Lavonne Tinoco LYMPH # 2.0 103/ul Normal 1.2-3.8 [facility] Comment on above: Performed By: #### C BC #### [facility] [address] [address] [address] Lavonne Tinoco Lymphocytes/100 WBC (Bld) 21.6 % Normal 20.5-60.0 [facility] Comment on above: Performed By: #### C BC #### [facility] [address] [address] [address] Lavonne Tinoco MANUAL DIFF REQ NO Normal [facility] Comment on above: Performed By: #### C BC #### [facility] [address] [place] [address] Dr. Lavonne Tinoco MCH (RBC) [Entitic mass] 32.7 pg Normal 25.9-34.0 [facility] Comment on above: Performed By: #### C BC #### [facility] [address] [place] [address] Dr. Lavonne Tinoco MCHC (RBC) [Mass/Vol] 33.6 g/dL Normal 29.9-35.2 [facility] Comment on above: Performed By: #### C BC #### [facility] [address] [place] [address] Dr. Lavonne Tinoco MCV (RBC) [Entitic vol] 97.4 fL Critically high 80.0-94.0 [facility] Comment on above: Performed By: #### C BC #### [facility] [address] [place] [address] Dr. Lavonne Tinoco MONO # 0.6 103/ul Normal 0.3-0.8 [facility] Comment on above: Performed By: #### C BC #### [facility] [address] [place] [address] Dr. Lavonne Tinoco Monocytes/100 WBC (Bld) 6.0 % Normal 1.7-12.0 [facility] Comment on above: Performed By: #### C BC #### [facility] [address] [place] [address] Dr. Lavonne Tinoco NEUT # 6.3 103/ul Normal 1.4-6.5 [facility] Comment on above: Performed By: #### C BC #### [facility] [address] [address] [address] Lavonne Tinoco Neutrophils/100 WBC (Bld) 66.6 % Normal 43.0-75.0 [facility] Comment on above: Performed By: #### C BC #### [facility] [address] [address] [address] Lavonne Tinoco Platelet mean volume (Bld) [Entitic vol] 10.7 fL Normal 9.5-13.5 [facility] Comment on above: Performed By: #### C BC #### [facility] [address] [address] [address] Lavonne Tinoco PLT 300 103/ul Normal 150-450 [facility] Comment on above: Performed By: #### C BC #### [facility] [address] [place] [address] Dr. Lavonne Tinoco RBC 4.62 106/ul Critically low 4.70-6.10 [facility] Comment on above: Performed By: #### C BC #### [facility] [address] [address] [address] Lavonne Tinoco WBC 9.4 103/ul Normal 4.0-11.0 [facility] Comment on above: Performed By: #### C BC #### [facility] [address] [place] [address] Dr. Lavonne Tinoco FREE T4on 07-19-2022 Free T4 [Mass/Vol] 0.90 ng/dL Normal 0.76-1.46 [facility] Comment on above: Performed By: #### C MP, TSH, LIPID #### [facility] [address] [place] [address] Dr. Lavonne Tinoco LIPID PROFILEon 07-19-2022 CHOL-HDL RATIO NORM SEE BELOW Normal [facility] Comment on above: Result Comment: 3.3 - 4.4 LOW RISK 4.4 - 7.1 AVERAGE RISK 7.1 - 11.0 MODERATE RISK >11.0 HIGH RISK Performed By: #### C MP, TSH, LIPID #### [facility] [address] [place] [address] Dr. Lavonne Tinoco Cholesterol [Mass/Vol] 207 mg/dL Critically high <=200 [facility] Comment on above: Performed By: #### C MP, TSH, LIPID #### [facility] [address] [address] [address] Lavonne Tinoco Cholesterol in HDL [Mass/Vol] 37 mg/dL Critically low 40-60 [facility] Comment on above: Performed By: #### C MP, TSH, LIPID #### [facility] [address] [address] [address] Lavonne Tinoco Cholesterol in LDL [Mass/Vol] 143.8 mg/dL Normal [facility] Comment on above: Performed By: #### C MP, TSH, LIPID #### [facility] [address] [address] [address] Lavonne Tinoco Cholesterol.total/Chol esterol in HDL [Mass ratio] 5.6 {ratio} Normal [facility] Comment on above: Performed By: #### C MP, TSH, LIPID #### [facility] [address] [address] [address] Lavonne Tinoco HDL NORMAL > or = 60 mg/dl - LOW CARDIOVASCULAR RISK <40 mg/dl - HIGH CARDIOVASCULAR RISK Normal [facility] Comment on above: Performed By: #### C MP, TSH, LIPID #### [facility] [address] [place] [address] Dr. Lavonne Tinoco LDL CALC NORMAL SEE BELOW Normal [facility] Comment on above: Result Comment: <100 mg/dl OPTIMAL 100 - 129 mg/dl NEAR OR ABOVE OPTIMAL 130 - 159 mg/dl BORDERLINE HIGH 160 - 189 mg/dl HIGH >190 mg/dl VERY HIGH Performed By: #### C MP, TSH, LIPID #### [facility] [address] [address] [address] Lavonne Tinoco Triglyceride [Mass/Vol] 131 mg/dL Normal <=150 [facility] Comment on above: Performed By: #### C MP, TSH, LIPID #### [facility] [address] [address] [address] Lavonne Tinoco VLDL CALC 26.2 mg/dL Normal [facility] Comment on above: Performed By: #### C MP, TSH, LIPID #### [facility] [address] [address] [address] Lavonne Tinoco PROF 14(COMP METB)on 022 Albumin [Mass/Vol] 3.6 g/dL Normal 3.4-5.0 [facility] Comment on above: Performed By: #### C MP, TSH, LIPID #### [facility] [address] [address] [address] Lavonne Tinoco Albumin/Globulin [Mass ratio] 1.0 {ratio} Normal [facility] Comment on above: Performed By: #### C MP, TSH, LIPID #### [facility] [address] [place] [address] Dr. Lavonne Tinoco ALP [Catalytic activity/Vol] 85 U/L Normal 46-116 [facility] Comment on above: Performed By: #### C MP, TSH, LIPID #### [facility] [address] [place] [address] Dr. Lavonne Tinoco ALT [Catalytic activity/Vol] 33 U/L Normal 16-63 [facility] Comment on above: Performed By: #### C MP, TSH, LIPID #### [facility] [address] [place] [address] Dr. Lavonne Tinoco Anion gap [Moles/Vol] 9.2 mmol/L Normal [facility] Comment on above: Performed By: #### C MP, TSH, LIPID #### [facility] [address] [place] [address] Dr. Lavonne Tinoco AST [Catalytic activity/Vol] 17 U/L Normal 15-37 [facility] Comment on above: Performed By: #### C MP, TSH, LIPID #### [facility] [address] [address] [address] Lavonne Tinoco Bilirubin [Mass/Vol] 0.5 mg/dL Normal 0.2-1.0 [facility] Comment on above: Performed By: #### C MP, TSH, LIPID #### [facility] [address] [place] [address] Dr. Lavonne Tinoco Calcium [Mass/Vol] 8.5 mg/dL Normal 8.5-10.1 [facility] Comment on above: Performed By: #### C MP, TSH, LIPID #### [facility] [address] [place] [address] Dr. Lavonne Tinoco Chloride [Moles/Vol] 106 mmol/L Normal 98-107 [facility] Comment on above: Performed By: #### C MP, TSH, LIPID #### [facility] [address] [place] [address] Dr. Lavonne Tinoco CO2 [Moles/Vol] 31.3 mmol/L Normal 21.0-32.0 [facility] Comment on above: Performed By: #### C MP, TSH, LIPID #### [facility] [address] [place] [address] Dr. Lavonne Tinoco Creatinine [Mass/Vol] 1.06 mg/dL Normal 0.70-1.30 [facility] Comment on above: Performed By: #### C MP, TSH, LIPID #### [facility] [address] [place] [address] Dr. Lavonne Tinoco EGFR-AF NICARAGUAN >60 Normal >=60 [facility] Comment on above: Performed By: #### C MP, TSH, LIPID #### [facility] [address] [place] [address] Dr. Lavonne Tinoco EGFR-NON AF NICARAGUAN >60 Normal >=60 [facility] Comment on above: Performed By: #### C MP, TSH, LIPID #### [facility] [address] [place] [address] Dr. Lavonne Tinoco Globulin (S) [Mass/Vol] 3.6 g/dL Normal [facility] Comment on above: Performed By: #### C MP, TSH, LIPID #### [facility] [address] [place] [address] Dr. Lavonne Tinoco Glucose [Mass/Vol] 101 mg/dL Normal 74-106 [facility] Comment on above: Performed By: #### C MP, TSH, LIPID #### [facility] [address] [place] [address] Dr. Lavonne Tinoco Potassium [Moles/Vol] 3.5 mmol/L Normal 3.5-5.1 [facility] Comment on above: Performed By: #### C MP, TSH, LIPID #### [facility] [address] [place] [address] Dr. Lavonne Tinoco Protein [Mass/Vol] 7.2 g/dL Normal 6.4-8.2 [facility] Comment on above: Performed By: #### C MP, TSH, LIPID #### [facility] [address] [place] [address] Dr. Lavonne Tinoco Sodium [Moles/Vol] 143 mmol/L Normal 136-145 [facility] Comment on above: Performed By: #### C MP, TSH, LIPID #### [facility] [address] [place] [address] Dr. Lavonne Tinoco Urea nitrogen [Mass/Vol] 21.0 mg/dL Critically high 7.0-18.0 [facility] Comment on above: Performed By: #### C MP, TSH, LIPID #### [facility] [address] [place] [address] Dr. Lavonne Tinoco Urea nitrogen/Creatinine [Mass ratio] 19.8 mg/mg Normal [facility] Comment on above: Performed By: #### C MP, TSH, LIPID #### [facility] [address] [place] [address] Dr. Lavonne Tinoco TSHon 07-19-2022 TSH 1.947 uIU/mL Normal 0.358-3.740 [facility] Comment on above: Performed By: #### C MP, TSH, LIPID #### [facility] [address] [place] [address] Dr. Lavonne Tinoco UA RANDOM W/MICROSCOPICon BACTERIA NONE SEEN Normal NONE SEEN [facility] Comment on above: Performed By: #### U AMIC #### [facility] [address] [place] [address] Dr. Lavonne Tinoco Bilirubin Ql (U) Negative Normal NEGATIVE [facility] Comment on above: Performed By: #### U AMIC #### [facility] [address] [address] [address] Lavonne Tinoco CAST NONE SEEN Normal NONE SEEN [facility] Comment on above: Performed By: #### U AMIC #### [facility] [address] [place] [address] Dr. Lavonne Tinoco Clarity (U) CLEAR Normal CLEAR [facility] Comment on above: Performed By: #### U AMIC #### [facility] [address] [place] [address] Dr. Lavonne Tinoco Color (U) YELLOW Normal YELLOW [facility] Comment on above: Performed By: #### U AMIC #### [facility] [address] [place] [address] Dr. Lavonne Tinoco Crystals LM Nom (Urine sed) NONE SEEN Normal NONE SEEN [facility] Comment on above: Performed By: #### U AMIC #### [facility] [address] [place] [address] Dr. Lavonne Tinoco Epithelial cells LM Ql (Urine sed) FEW Abnormal NONE SEEN /RARE [facility] Comment on above: Performed By: #### U AMIC #### [facility] [address] [place] [address] Dr. Lavonne Tinoco Glucose Ql (U) Negative Normal NEGATIVE [facility] Comment on above: Performed By: #### U AMIC #### [facility] [address] [place] [address] Dr. Lavonne Tinoco Hemoglobin Ql (U) Negative Normal NEGATIVE [facility] Comment on above: Performed By: #### U AMIC #### [facility] [address] [place] [address] Dr. Lavonne Tinoco Ketones Ql (U) Negative Normal NEGATIVE [facility] Comment on above: Performed By: #### U AMIC #### [facility] [address] [place] [address] Dr. Lavonne Tinoco LEUKOCYTES TRACE Abnormal NEGATIVE [facility] Comment on above: Performed By: #### U AMIC #### [facility] [address] [place] [address] Dr. Lavonne Tinoco MUCOUS NONE SEEN Normal NONE SEEN [facility] Comment on above: Performed By: #### U AMIC #### [facility] [address] [address] [address] Lavonne Tinoco Nitrite Ql (U) Negative Normal NEGATIVE [facility] Comment on above: Performed By: #### U AMIC #### [facility] [address] [address] [address] Lavonne Tinoco pH (U) 6.0 [pH] Normal 5-9 [facility] Comment on above: Performed By: #### U AMIC #### [facility] [address] [address] [address] Lavonne Tinoco RBC NONE SEEN Abnormal 0-2 [facility] Comment on above: Performed By: #### U AMIC #### [facility] [address] [place] [address] Dr. Lavonne Tinoco SPEC GRAVITY 1.020 Normal 1.005-<=1.025 [facility] Comment on above: Performed By: #### U AMIC #### [facility] [address] [place] [address] Dr. Lavonne Tinoco UA PROTEIN TRACE Normal NEGATIVE/ TRACE [facility] Comment on above: Performed By: #### U AMIC #### [facility] [address] [place] [address] Dr. Lavonne Tinoco Urobilinogen Qn (U) 2.0 {Erick'U}/dL Abnormal 0.2 - 1. 0 [facility] Comment on above: Performed By: #### U AMIC #### [facility] [address] [place] [address] Dr. Lavonne Tinoco WBC 0-2 Abnormal NONE SEEN [facility] Comment on above: Performed By: #### U AMIC #### [facility] [address] [place] [address] Dr. Lavonne Tinoco NM STRESS/REST MULTIon 04-04 NM STRESS/REST MULTI Patient: ABRAM GUILLAUME Exam Date: 04/04/2022 : 1965 Gender:M Ordering : ROSI SEXTON CNP Admission #: [id number] Family : Order #: [id number] CLICK HERE TO VIEW EXAM RADIOLOGY REPORT [...] Gan MD on 04/04/2022 at 13:16 Normal [facility] ECHOCARDIO M/2D COMPLETEon 0 02-27-2022 ECHOCARDIO M/2D COMPLETE Patient: ABRAM GUILLAUME Exam Date: 02/27/2022 : 1965 Gender:M Ordering : ROSI PEPPER SEXTON [facility] Admission #: [id number] Family : Order #: [id number] CLICK HERE TO VIEW EXAM ECHOCARDIOGRAM REPORT [...] Area(A4C): 21.60 cm2 Left Atrium Systolic Volume(A2C): 71793 mm3 Left Atrium Systolic Volume(A4C): 69099 mm3 Mitral Valve MV E to A [...] Peck M.D. on 02/28/2022 at 11:52 Normal [facility] ANKLE LEFT 3 Son 2 ANKLE LEFT 3 [facility] Department of Radiology [address] [place] [address] Patient Name: ABRAM GUILLAUME : [...] Weight Bearing?: Y Exam: ANKLE LEFT 3 [facility] ANKLE LEFT 3 [facility] 01/11/2022 9:13 AM CLINICAL INDICATIONS: [id number] [...] above Electronically signed: Violeta Jay. Transcribed by: [email or web address], User Resident: Electronically Signed by: VIOLETA JAY @ 01/12/2022 03:24 PM Normal [facility] Comment on above: Order Comment: Views (X-RAY, ANKLE): AP, Lateral, Mortise , Weight Bearing?: Y GLYCOHEMOGLOBIN A1Con 2021 ADA RECOMMENDATION ADA THERAPEUTIC TARGET 6.0 - 7.0 ACTION SUGGESTED > 7.0 Normal [facility] Comment on above: Performed By: #### A 1C #### [facility] [address] [place] [address] Dr. Lavonne Tinoco Glucose [Mass/Vol] 100 mg/dL Normal [facility] Comment on above: Performed By: #### A 1C #### [facility] [address] [address] [address] Lavonne Tinoco HbA1c (Bld) [Mass fraction] 5.1 % Normal <=6.0 [facility] Comment on above: Performed By: #### A 1C #### [facility] [address] [address] [address] Lavonne Tinoco MAGNESIUMon 12-25-2021 Magnesium [Mass/Vol] 1.7 mg/dL Normal 1.6-2.3 [facility] Comment on above: Performed By: #### M G, BMP #### [facility] [address] [address] [address] Lavonne Tinoco PROF CHEM 8 (BAS METB)on Anion gap [Moles/Vol] 12.3 mmol/L Normal [facility] Comment on above: Performed By: #### M G, BMP #### [facility] [address] [address] [address] Lavonne Tinoco Calcium [Mass/Vol] 8.7 mg/dL Normal 8.5-10.1 [facility] Comment on above: Performed By: #### M G, BMP #### [facility] [address] [place] [address] Dr. Lavonne Tinoco Chloride [Moles/Vol] 107 mmol/L Normal 98-107 [facility] Comment on above: Performed By: #### M G, BMP #### [facility] [address] [place] [address] Dr. Lavonne Tinoco CO2 [Moles/Vol] 27.4 mmol/L Normal 22.0-30.0 [facility] Comment on above: Performed By: #### M G, BMP #### [facility] [address] [place] [address] Dr. Lavonne Tinoco Creatinine [Mass/Vol] 1.50 mg/dL Critically high 0.66-1.25 [facility] Comment on above: Performed By: #### M G, BMP #### [facility] [address] [place] [address] Dr. Lavonne Tinoco EGFR-AF NICARAGUAN 59 mL/min/1.73m2 Critically low >=60 [facility] Comment on above: Performed By: #### M G, BMP #### [facility] [address] [place] [address] Dr. Lavonne Tinoco EGFR-NON AF NICARAGUAN 49 mL/min/1.73m2 Critically low >=60 [facility] Comment on above: Performed By: #### M G, BMP #### [facility] [address] [place] [address] Dr. Lavnone Tinoco Glucose [Mass/Vol] 103 mg/dL Normal 74-106 [facility] Comment on above: Performed By: #### M G, BMP #### [facility] [address] [place] [address] Dr. Lavonne Tinoco Potassium [Moles/Vol] 3.7 mmol/L Normal 3.4-5.0 [facility] Comment on above: Performed By: #### M G, BMP #### [facility] [address] [address] [address] Lavonne Tinoco Sodium [Moles/Vol] 143 mmol/L Normal 137-145 [facility] Comment on above: Performed By: #### M G, BMP #### [facility] [address] [address] [address] Lavonne Tinoco Urea nitrogen [Mass/Vol] 17.0 mg/dL Normal 7.0-18.0 [facility] Comment on above: Performed By: #### M G, BMP #### [facility] [address] [address] [address] Lavonne Tinoco Urea nitrogen/Creatinine [Mass ratio] 11.3 mg/mg Normal [facility] Comment on above: Performed By: #### M G, BMP #### [facility] [address] [place] [address] Dr. Lavonne Tinoco Vital Signs Date Time Vital Sign Value Performing Clinician Facility 04-07-2025 08:20-0400 Body mass index (BMI) [Ratio] 38.4 kg/m2 Pepper Sexton [employer] Work Phone: [facility] 04-07-2025 08:20-0400 Body temperature 97.81 [degF] Pepper Sexton [employer] Work Phone: [facility] 04-07-2025 08:20-0400 Body weight 117.94 kg Pepper Sexton [employer] Work Phone: [facility] 04-07-2025 08:20-0400 Diastolic blood pressure 106 mm[Hg] Pepper Sexton [employer]GER [employer] Work Phone: [facility] 04-07-2025 08:20-0400 Heart rate 97 /min Pepper Sexton [employer] Work Phone: [facility] 04-07-2025 08:20-0400 Respiratory rate 18 /min Pepper Sexton [employer] Work Phone: [facility] 04-07-2025 08:20-0400 SaO2% (BldA) [Mass fraction] 93 % Pepper Aichholz [employer] Work Phone: [facility] 04-07-2025 08:20-0400 Systolic blood pressure 160 mm[Hg] Peppre Aichholz MANAGER [employer] Work Phone: [facility] 04-06-2025 14:45-0400 Diastolic blood pressure 118 mm[Hg] Pepper Aichholz Work Phone: [facility] 04-06-2025 14:45-0400 Heart rate 103 /min Pepper Aichholz Work Phone: [facility] 04-06-2025 14:45-0400 Systolic blood pressure 162 mm[Hg] Pepper Aichholz Work Phone: [facility] 04-06-2025 14:39-0400 Body weight 115.21 kg Pepper Aichholz Work Phone: [facility] 04-06-2025 14:39-0400 Respiratory rate 18 /min Pepper Aichholz Work Phone: [facility] 04-06-2025 14:39-0400 SaO2% (BldA) [Mass fraction] 96 % Pepper Aichholz Work Phone: [facility] 04-01-2025 09:49-0400 Body height 175.3 cm Robert Kumar MD Work Phone: [facility] 04-01-2025 09:49-0400 Body mass index (BMI) [Ratio] 37.66 kg/m2 Robert Kumar MD Work Phone: [facility] 04-01-2025 09:49-0400 Body weight 115.67 kg Robert Kumar MD Work Phone: [facility] 04-01-2025 09:49-0400 Diastolic blood pressure 122 mm[Hg] Robert Kumar MD Work Phone: [facility] 04-01-2025 09:49-0400 Heart rate 91 /min Robert Kumar MD Work Phone: [facility] 04-01-2025 09:49-0400 Systolic blood pressure 177 mm[Hg] Robert Kumar MD Work Phone: [facility] 03-08-2025 08:54-0400 Diastolic blood pressure 92 mm[Hg] Peppereboni Serratoholz MANAGER [employer] Work Phone: [facility] 03-08-2025 08:54-0400 Systolic blood pressure 144 mm[Hg] Pepper Aichholz [employer]GER [employer] Work Phone: [facility] 03-08-2025 08:26-0400 Body mass index (BMI) [Ratio] 38.28 kg/m2 Pepper Aichholz [employer]GER [employer] Work Phone: [facility] 03-08-2025 08:26-0400 Body temperature 98.1 [degF] Pepper Aichholz [employer]GER [employer] Work Phone: [facility] 03-08-2025 08:26-0400 Body weight 117.57 kg Pepper Aichholz MANAGER [employer] Work Phone: [facility] 03-08-2025 08:26-0400 Heart rate 76 /min Pepper Aichholz MANAGER [employer] Work Phone: [facility] 03-08-2025 08:26-0400 Respiratory rate 20 /min Pepper Javierhholz MANAGER [employer] Work Phone: [facility] 03-08-2025 08:26-0400 SaO2% (BldA) [Mass fraction] 94 % Pepper Aichholz [employer]GER [employer] Work Phone: [facility] 02-17-2025 16:45-0400 Body mass index (BMI) [Ratio] 38.16 kg/m2 Pepper Aichholz [employer] Work Phone: [facility] 02-17-2025 16:45-0400 Body temperature 98.01 [degF] Pepper Javierhholz MANAGER [employer] Work Phone: [facility] 02-17-2025 16:45-0400 Body weight 117.21 kg Pepper Aichholz MANAGER [employer] Work Phone: [facility] 02-17-2025 16:45-0400 Diastolic blood pressure 90 mm[Hg] Pepper Aichholz MANAGER [employer] Work Phone: [facility] 02-17-2025 16:45-0400 Heart rate 104 /min Pepper Aichholz MANAGER [employer] Work Phone: [facility] 02-17-2025 16:45-0400 Respiratory rate 22 /min Pepper Aichholz [employer]GER [employer] Work Phone: [facility] 02-17-2025 16:45-0400 SaO2% (BldA) [Mass fraction] 94 % Pepper Aichholz [employer]GER [employer] Work Phone: [facility] 02-17-2025 16:45-0400 Systolic blood pressure 116 mm[Hg] Pepper Aichholz MANAGER [employer] Work Phone: [facility] 01-06-2025 09:06-0400 Body height 175.3 cm Pepper Aichholz MA[employer]GER [employer] Work Phone: [facility] 01-06-2025 09:06-0400 Body mass index (BMI) [Ratio] 40.46 kg/m2 Pepper Aichholz [employer]GER [employer] Work Phone: [facility] 01-06-2025 09:06-0400 Body temperature 97.81 [degF] Pepper Aichholz MANAGER [employer] Work Phone: [facility] 01-06-2025 09:06-0400 Body weight 124.29 kg Pepper Aichholz MANAGER [employer] Work Phone: [facility] 01-06-2025 09:06-0400 Diastolic blood pressure 82 mm[Hg] Pepper Aichholz MANAGER [employer] Work Phone: [facility] 04-16-2025 09:06-0400 Heart rate 91 /min Pepper Aichholz MANAGER [employer] Work Phone: [facility] 01-06-2025 09:06-0400 Respiratory rate 18 /min Pepper Aichholz MA[employer]GER [employer] Work Phone: [facility] 01-06-2025 09:06-0400 SaO2% (BldA) [Mass fraction] 93 % Pepper Aichholz [employer]GER [employer] Work Phone: [facility] 01-06-2025 09:06-0400 Systolic blood pressure 140 mm[Hg] Pepper Aichholz MANAGER [employer] Work Phone: [facility] 12-02-2024 13:45-0400 Body height 175.26 cm Pepper Aichholz Work Phone: [facility] 12-02-2024 13:45-0400 Body mass index (BMI) [Ratio] 41 kg/m2 Pepper Aichholz Work Phone: [facility] 12-02-2024 13:45-0400 Body weight 126.09 kg Pepper Aichholz Work Phone: [facility] 12-02-2024 13:45-0400 Diastolic blood pressure 73 mm[Hg] Pepper Aichholz Work Phone: [facility] 12-02-2024 13:45-0400 Heart rate 89 /min Pepper Aichholz Work Phone: [facility] 12-02-2024 13:45-0400 Respiratory rate 18 /min Pepper Aichholz Work Phone: [facility] 12-02-2024 13:45-0400 SaO2% (BldA) [Mass fraction] 95 % Pepper Aichholz Work Phone: [facility] 12-02-2024 13:45-0400 Systolic blood pressure 122 mm[Hg] Pepper Aichholz Work Phone: [facility] 10-07-2024 09:05-0500 Body height 175.3 cm Pepper Aichholz MANAGER [employer] Work Phone: [facility] 10-07-2024 09:05-0500 Body mass index (BMI) [Ratio] 41.47 kg/m2 Pepper Aichholz MANAGER [employer] Work Phone: [facility] 10-07-2024 09:05-0500 Body temperature 97.81 [degF] Pepper Aichholz MANAGER [employer] Work Phone: [facility] 10-07-2024 09:05-0500 Body weight 127.37 kg Pepper Aichholz MANAGER [employer] Work Phone: [facility] 10-07-2024 09:05-0500 Diastolic blood pressure 84 mm[Hg] Pepper Aichholz MANAGER [employer] Work Phone: [facility] 10-07-2024 09:05-0500 Heart rate 92 /min Pepper Aichholz MANAGER [employer] Work Phone: [facility] 10-07-2024 09:05-0500 Respiratory rate 22 /min Pepper Aichholz MANAGER [employer] Work Phone: [facility] 10-07-2024 09:05-0500 SaO2% (BldA) [Mass fraction] 96 % Pepper Aichholz MANAGER [employer] Work Phone: [facility] 10-07-2024 09:05-0500 Systolic blood pressure 138 mm[Hg] Pepper Aichholz MANAGER [employer] Work Phone: [facility] 10-06-2024 09:05-0500 Diastolic blood pressure 86 mm[Hg] Pepper Aichholz Work Phone: [facility] 10-06-2024 09:05-0500 Heart rate 88 /min Pepper Aichholz Work Phone: [facility] 10-06-2024 09:05-0500 Respiratory rate 18 /min Pepper Aichholz Work Phone: [facility] 10-06-2024 09:05-0500 SaO2% (BldA) [Mass fraction] 96 % Pepper Aichholz Work Phone: [facility] 10-06-2024 09:05-0500 Systolic blood pressure 136 mm[Hg] Pepper Aichholz Work Phone: [facility] 10-06-2024 07:31-0500 Body height 177.8 cm Pepper Aichholz Work Phone: [facility] 10-06-2024 07:31-0500 Body weight 115.66 kg Pepper Aichholz Work Phone: [facility] 07-09-2024 13:55-0400 Diastolic blood pressure 74 mm[Hg] Pepper Aichholz Work Phone: [facility] 07-09-2024 13:55-0400 Heart rate 74 /min Pepper Aichholz Work Phone: [facility] 07-09-2024 13:55-0400 Respiratory rate 18 /min Pepper Aichholz Work Phone: [facility] 07-09-2024 13:55-0400 SaO2% (BldA) [Mass fraction] 100 % Pepper Aichholz Work Phone: [facility] 07-09-2024 13:55-0400 Systolic blood pressure 111 mm[Hg] Pepper Aichholz Work Phone: [facility] [facility] 07-09-2024 11:51-0400 Body height 175.26 cm Pepper Aichholz Work Phone: [facility] 07-09-2024 11:51-0400 Body temperature 98.6 [degF] Pepper Aichholz Work Phone: [facility] 07-09-2024 11:51-0400 Body weight 117.9 kg Pepper Aichholz Work Phone: [facility] 07-06-2024 09:44-0400 Body height 175.3 cm Peppereboni Herreranitoz MANAGER FORMS Work Phone: [facility] 07-06-2024 09:44-0400 Body mass index (BMI) [Ratio] 37.18 kg/m2 Pepper Rojelioholz MANAGER FORMS Work Phone: [facility] 07-06-2024 09:44-0400 Body temperature 98.1 [degF] Peppereboni Herreranitoz MANAGER FORMS Work Phone: [facility] 07-06-2024 09:44-0400 Body weight 114.22 kg Pepper Javiernitoz MANAGER FORMS Work Phone: [facility] 07-06-2024 09:44-0400 Diastolic blood pressure 82 mm[Hg] Pepper Danez MANAGER FORMS Work Phone: [facility] 07-06-2024 09:44-0400 Heart rate 79 /min Pepper Javiernitoz MANAGER FORMS Work Phone: [facility] 07-06-2024 09:44-0400 Respiratory rate 19 /min Pepper Javiernitoz MANAGER FORMS Work Phone: [facility] 07-06-2024 09:44-0400 SaO2% (BldA) [Mass fraction] 93 % Pepper Carlie MANAGER FORMS Work Phone: [facility] 07-06-2024 09:44-0400 Systolic blood pressure 126 mm[Hg] Pepper Danez MANAGER FORMS Work Phone: [facility] 06-24-2024 08:39-0400 Body height 175.26 cm [facility] 06-24-2024 08:39-0400 Body mass index (BMI) [Ratio] 42.3 kg/m2 [facility] 06-24-2024 08:39-0400 Body weight 130 kg [facility] 06-23-2024 08:50-0400 Body height 175.26 cm [facility] 06-23-2024 08:50-0400 Body mass index (BMI) [Ratio] 42.3 kg/m2 [facility] 06-23-2024 08:50-0400 Body temperature 98.2 [degF] [facility] 06-23-2024 08:50-0400 Body weight 129.89 kg [facility] 06-23-2024 08:50-0400 Diastolic blood pressure 77 mm[Hg] [facility] 06-23-2024 08:50-0400 Heart rate 91 /min [facility] 06-23-2024 08:50-0400 Respiratory rate 18 /min [facility] 06-23-2024 08:50-0400 SaO2% (BldA) [Mass fraction] 93 % [facility] 06-23-2024 08:50-0400 Systolic blood pressure 115 mm[Hg] [facility] 04-27-2024 08:35-0400 Body height 175.[address] [facility] 04-27-2024 08:35-0400 Body mass index (BMI) [Ratio] 38.4 kg/m2 Pm 2 [facility] 04-27-2024 08:35-0400 Body weight 117.[address] [facility] 03-19-2024 09:37-0400 Body height 175.26 cm [facility] 03-19-2024 09:37-0400 Body mass index (BMI) [Ratio] 39.4 kg/m2 [facility] 03-19-2024 09:37-0400 Body temperature 97.8 [degF] [facility] 03-19-2024 09:37-0400 Body weight 121.1 kg [facility] 03-19-2024 09:37-0400 Diastolic blood pressure 98 mm[Hg] [facility] 03-19-2024 09:37-0400 Heart rate 94 /min [facility] 03-19-2024 09:37-0400 Respiratory rate 20 /min [facility] 03-19-2024 09:37-0400 SaO2% (BldA) [Mass fraction] 95 % [facility] 03-19-2024 09:37-0400 Systolic blood pressure 158 mm[Hg] [facility] Encounters Encounter Date Encounter Type Care Provider Facility Start: 04-07-2025 End: 04-07-2025 Bamboo flowsheet Pepper Sexton MANAGER FORMS Work Phone: [facility] Start: 04-07-2025 End: 04-07-2025 Bamboo flowsheet Pepper Sexton MANAGER FORMS Work Phone: [facility] Start: 04-07-2025 End: 04-07-2025 Office outpatient visit 25 minutes Pepper Sexton NP Work Phone: [facility] Comment on above: Essential hypertensi on, benign (Primary Dx); Morbid (severe) obesity due to excess calories ([facility]-HCC); Gastro-esophageal reflux disease without esophagitis; 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); Fibromyalgia; Bronchitis; Acute gout of left hand, unspecified cause Start: 04-06-2025 End: 04-06-2025 ambulatory Pepper Sexton Work Phone: [facility] Work Phone: Start: 04-06-2025 End: 04-06-2025 Patient encounter procedure Tang Hamilton MD -[facility] Work Phone: Start: 04-01-2025 End: 04-01-2025 Office outpatient visit 25 minutes Robert Kumar MD Work Phone: [facility] [place] Comment on above: Chronic venous insuf ficiency (Primary Dx); Chronic deep vein thrombosis (DVT) of popliteal vein of left lower extremity ([facility]-HCC); 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 (CMS-HCC) Start: 04-01-2025 End: 04-01-2025 ambulatory ROBERT KUMAR [facility] Start: 03-31-2025 End: 03-31-2025 Clinisync Result Encounter Pepper Aichholz MANAGER FORMS Work Phone: [facility] Unsolicited Start: 03-31-2025 End: 03-31-2025 Clinisync Result Encounter Pepper Serratojemal MANAGER FORMS Work Phone: [facility] Unsolicited Start: 03-17-2025 End: 03-17-2025 Clinisync Result Encounter Pepper Carlie MANAGER FORMS Work Phone: [facility] Unsolicited Start: 03-17-2025 End: 03-17-2025 Clinisync Result Encounter Pepper Serratojemal MANAGER FORMS Work Phone: [facility] Unsolicited Start: 03-17-2025 End: 03-17-2025 Orders Only Pepper Carlie MANAGER FORMS Work Phone: [facility] Comment on above: Electrolyte abnormal ity (Primary Dx) Start: 03-17-2025 Non-patient / Non-visit Tang Hamilton MD [facility] Work Phone: Start: 03-16-2025 End: 03-16-2025 Refill Pepper Sexton MANAGER FORMS Work Phone: [facility] Comment on above: Atopic dermatitis, u nspecified type Hypothyroidism, unsp ecified type ; Gastroesophageal reflux disease, unspecified whether esophagitis present; Essential hypertension, benign Start: 03-08-2025 End: 03-08-2025 Bamboo flowsheet Pepper Carlie MANAGER FORMS Work Phone: [facility] Start: 03-08-2025 End: 03-08-2025 Bamboo flowsheet Pepper Carlie MANAGER FORMS Work Phone: [facility] Start: 03-08-2025 End: 03-08-2025 Office outpatient visit 25 minutes Pepper Sexton MANAGER FORMS Work Phone: [facility] Comment on above: Cellulitis of left l ower extremity (Primary Dx); Essential hypertension, benign ; Left leg swelling; Morbid (severe) obesity due to excess calories ([facility]-HCC); Chronic bronchitis, unspecified chronic bronchitis type (HCC); Restless legs syndrome; Atopic dermatitis, unspecified type Start: 03-08-2025 End: 03-08-2025 ambulatory PEPPER SEXTON Not Available Start: 02-17-2025 End: 02-17-2025 Transitional care manage srvc 7 day discharge Pepper Sexton MANAGER FORMS Work Phone: [facility] Comment on above: Cellulitis of left l ower extremity (Primary Dx); Essential hypertension, benign (CMS/HCC); Morbid (severe) obesity due to excess calories (CMS/HCC); Hypomagnesemia; Cigarette nicotine dependence without complication; MARITZA (acute kidney injury) (CMS/HCC); Left leg swelling Start: 02-17-2025 End: 02-17-2025 ambulatory PEPPER SEXTON Not Available Start: 02-07-2025 End: 02-09-2025 Clinisync Result Encounter Generic External Data Provider [facility] Unsolicited Start: 02-07-2025 End: 02-09-2025 Clinisync Result Encounter Generic External Data Provider [facility] Unsolicited Start: 01-06-2025 End: 01-06-2025 Bamboo flowsheet Pepper Sexton MANAGER FORMS Work Phone: [facility] Start: 01-06-2025 End: 01-06-2025 Bamboo flowsheet Pepper Sexton MANAGER FORMS Work Phone: [facility] Start: 01-06-2025 End: 01-06-2025 Office outpatient visit 25 minutes Pepper Sexton MANAGER FORMS Work Phone: [facility] Comment on above: Essential hypertensi on, benign (CMS/HCC) (Primary Dx); Chronic kidney disease, stage 3a (HCC) (CMS/HCC); Gastro-esophageal reflux disease without esophagitis; Morbid (severe) obesity due to excess calories (CMS/HCC); Mixed hyperlipidemia (CMS/HCC); Hypomagnesemia; Screening for prostate cancer; Marijuana use; Hypothyroidism, unspecified type (CMS/HCC); Fibromyalgia Start: 01-06-2025 End: 01-06-2025 ambulatory PEPPEREboni SERRATOJEMAL Not Available Start: 12-02-2024 End: 12-02-2024 ambulatory Pepper Wheeler Javierpricillajemal Work Phone: [facility] Work Phone: Start: 12-02-2024 End: 12-02-2024 Patient encounter procedure Pepper Javierpricillajemal Work Phone: [facility] [place] Work Phone: Start: 11-26-2024 End: 11-26-2024 Clinisync [...] Unsolicited Start: 11-24-2024 Non-patient / Non-visit Pepper Eboni kelechi Work Phone: [facility] Work Phone: Start: 11-05-2024 End: 11-05-2024 Clinisync Result Encounter Pepper Carlie MANAGER FORMS Work Phone: [facility] Unsolicited Start: 11-05-2024 End: 11-05-2024 Clinisync Result Encounter Pepper Carlie MANAGER FORMS Work Phone: [facility] Unsolicited Start: 11-04-2024 End: 11-04-2024 Refill Pepper Carlie MANAGER FORMS Work Phone: [facility] Comment on above: Hypomagnesemia; Restless legs syndrome Start: 10-08-2024 End: 10-08-2024 Refill Pepper Aicpricillaholz MANAGER FORMS Work Phone: [facility] Comment on above: Hypothyroidism, unsp ecified type (CMS/HCC) (Primary Dx); Hypomagnesemia Start: 10-07-2024 End: 10-07-2024 Bamboo flowsheet Pepper Carlie MANAGER FORMS Work Phone: [facility] Start: 10-07-2024 End: 10-07-2024 Bamboo flowsheet Pepper Javierpricillajemal MANAGER FORMS Work Phone: [facility] Start: 10-07-2024 End: 10-07-2024 Clinisync Result Encounter Pepper Carlie MANAGER FORMS Work Phone: [facility] External Department Unsolicited Start: 10-07-2024 End: 10-07-2024 Office outpatient visit 25 minutes Pepper Sexton MANAGER FORMS Work Phone: [facility] Comment on above: Essential hypertensi on, benign [...] lorenz Work Phone: [facility] Work Phone: Start: 10-06-2024 End: 10-06-2024 Admission to same day surgery center Pepper Sexton Work Phone: [facility] Work Phone: Start: 10-06-2024 End: 10-06-2024 ambulatory Pepper Sexton Work Phone: [facility] Work Phone: Start: 09-28-2024 End: 09-28-2024 Clinisync Result Encounter Pepper Velaz MANAGER FORMS Work Phone: [facility] Unsolicited Start: 09-28-2024 End: 09-28-2024 Clinisync Result Encounter Pepper Sexton MANAGER FORMS Work Phone: [facility] Unsolicited Start: 09-28-2024 End: 09-28-2024 Refill Peppereboni Serratoholz MANAGER FORMS Work Phone: [facility] Comment on above: Hypomagnesemia (Prim ирина Dx) Start: 09-14-2024 End: 09-14-2024 Refill Pepper Rojelioholz MANAGER FORMS Work Phone: [facility] Comment on above: Hypomagnesemia Start: 09-14-2024 End: 09-15-2024 Refill Eppper Rojelioholz MANAGER FORMS Work Phone: [facility] Comment on above: Fibromyalgia Start: 09-04-2024 End: 09-04-2024 Orders Only Pepper Rojelioholz MANAGER FORMS Work Phone: [facility] Comment on above: Hypomagnesemia (Prim ирина Dx) Start: 09-04-2024 End: 09-04-2024 Refill Pepper Rojelioholz MANAGER FORMS Work Phone: [facility] Comment on above: Hypomagnesemia Start: 07-09-2024 Non-patient / Non-visit Pepper Eboni kelechi Work Phone: [facility] Work Phone: Start: 07-09-2024 End: 07-09-2024 Admission to same day surgery center Pepper Carlie Work Phone: [facility] Work Phone: Start: 07-09-2024 End: 07-09-2024 ambulatory Pepper Wheeler Carlie Work Phone: [facility] Work Phone: Start: 07-06-2024 End: 07-06-2024 Bamboo flowsheet Pepper Javierpricillajemal MANAGER FORMS Work Phone: [facility] Start: 07-06-2024 End: 07-06-2024 Bamboo flowsheet Pepper Javierpricillajemal MANAGER FORMS Work Phone: [facility] Start: 07-06-2024 End: 07-06-2024 Office outpatient visit 25 minutes Pepper Carlie MANAGER FORMS Work Phone: [facility] Comment on [...] Start: 06-29-2024 End: 06-29-2024 Refill Pepper Sexton MANAGER FORMS Work Phone: [facility] Comment on above: Restless legs syndro me Start: 06-24-2024 End: 06-24-2024 ambulatory [facility] Work Phone: Start: 06-24-2024 End: 06-24-2024 Patient encounter procedure [facility] Work Phone: Start: 06-23-2024 End: 06-23-2024 Clinisync Result Encounter Generic External Data Provider [facility] Unsolicited Start: 06-23-2024 End: 06-23-2024 Clinisync Result Encounter Generic External Data Provider [facility] External [facility] Unsolicited Start: 06-23-2024 End: 06-23-2024 ambulatory [facility] Work Phone: Start: 06-23-2024 End: 06-23-2024 Patient encounter procedure [facility] [place] Work Phone: Start: 06-18-2024 End: 06-18-2024 Refill Jose Bell MD Work Phone: [facility] Comment on above: Degenerative disc di sease, cervical (Primary Dx) Start: 06-09-2024 End: 06-09-2024 Refill Pepper Sexton MANAGER FORMS Work Phone: [facility] Comment on above: Hypomagnesemia questions Start: 06-03-2024 End: 06-03-2024 Bamboo flowsheet Blank B Apling MANAGER FORMS Work Phone: [facility] Start: 06-03-2024 End: 06-03-2024 Bamboo flowsheet Blank B Apling MANAGER FORMS Work Phone: [facility] Start: 06-03-2024 End: 06-03-2024 ambulatory BALNK B APLING Not Available Start: 06-03-2024 End: 06-03-2024 Postop follow up visit related to original px Blank B Apling MANAGER FORMS Work Phone: [facility] Comment on above: 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 Start: 05-26-2024 End: 05-26-2024 Refill Tiburcoi Noel MANAGER FORMS Work Phone: [facility] Comment on above: Post-operative pain (Primary Dx) Start: 05-04-2024 End: 01-06-2025 Preoperative state Tiburcio Noel NP Work Phone: [facility] Start: 05-04-2024 End: 05-04-2024 ambulatory PEPPER DANEZ Not Available Start: 04-30-2024 End: 04-30-2024 ambulatory [facility] Not Available Start: 04-27-2024 End: 04-27-2024 ambulatory [facility] Start: 04-27-2024 Encounter for other preprocedural examination [facility] Start: 04-27-2024 End: 04-27-2024 Patient encounter procedure [facility] Pre-Admission Testing 2 [facility] - Pre Admit Comment on above: Preop examination (P rimary Dx); Hypertension, unspecified type Start: 04-27-2024 End: 04-27-2024 Preprocedural examination done Pm 2 [facility] Start: 04-09-2024 End: 04-09-2024 ambulatory PEPPER AICHHOLZ Not Available Start: 03-19-2024 End: 03-19-2024 ambulatory [facility] Work Phone: Start: 03-19-2024 End: 03-19-2024 Patient encounter procedure [facility] Work Phone: Start: 03-11-2024 End: 03-11-2024 ambulatory PEPPER AICHHOLZ Not Available Start: 07-19-2022 End: 07-20-2022 ambulatory [employer] PEPPER AICHHOLZ Facility: Start: 04-04-2022 End: 04-05-2022 ambulatory [employer] PEPPER AICHHOLZ Facility:[facility] Start: 02-27-2022 End: 02-28-2022 ambulatory [employer] PEPPER AICHHOLZ Facility:[facility] Start: 01-16-2022 End: 01-17-2022 ambulatory SU[employer] PEPPER AICHHOLZ Facility:[facility] Start: 12-25-2021 End: 12-26-2021 ambulatory SU[employer] PEPPER AICHHOLZ Facility:[facility] Procedures Date Procedure Procedure Detail Performing Clinician Start: 03-31-2025 ALL BASIC METABOLIC PANEL Pepper Aichholz MANAGER FORMS Work Phone: Start: 03-17-2025 ALL CBC WITH AUTO DIFF Pepper Aichholz MANAGER FORMS Work Phone: Start: 02-07-2025 BLOOD CULTURE 2 Generic External Data Provider Start: 02-07-2025 BLOOD CULTURE 1 Generic External Data Provider Start: 11-26-2024 ALL CBC WITH AUTO DIFF Generic External Data Provider Start: 11-24-2024 ALL MAGNESIUM Generic External Data Provider Start: 11-05-2024 ALL MAGNESIUM Pepper Aichholz MANAGER FORMS Work Phone: Start: 10-07-2024 ALL MAGNESIUM Pepper Aichholz MANAGER FORMS Work Phone: Start: 10-07-2024 ALL THYROID STIM HORMONE Pepper Aichholz N P Work Phone: Start: 10-07-2024 Hemoglobin glycosylated a1c Pepper Aichhol z MANAGER FORMS Work Phone: Start: 10-06-2024 Esophagogastroduodenoscopy Pepper Aichholz Work Phone: Start: 09-28-2024 ALL BASIC METABOLIC PANEL Pepper Aichholz MANAGER FORMS Work Phone: Start: 09-28-2024 ALL MAGNESIUM Pepper Aichholz MANAGER FORMS Work Phone: Start: 07-09-2024 Esophagogastroduodenoscopy Pepper Aichholz Work Phone: Start: 06-23-2024 ALL MAGNESIUM Generic External Data Provider Start: 06-23-2024 ALL RENAL FUNCTION PANEL Generic Externa l Data Provider Start: 06-23-2024 ALL URIC ACID Generic External Data Provider Start: 07-19-2022 PSA screening [employer] PEPPER SEXTON Comment on above: Performed By: #### CMP, TSH, LIPID #### [facility] [address] [address] [address] Lavonne Tinoco Plan of Treatment Date Care Activity Detail Author Start: 04-01-2026 Adult BMI Screening Adult BMI Screen ing [facility] Start: 08-11-2025 Screening for malign ant neoplasm of colon [facility] Start: 05-27-2025 Tobacco Screening Tobacco Screening [facility] Start: 05-24-2025 Influenza vaccination Influenza Vacc ine [facility] Start: 05-05-2025 End: 05-05-2025 Patient encounter procedure 05/05/2025 8:20 AM EDT Office Visit [facility] [address] [place] [address] Pepper Sexton, MANAGER FORMS [address] [place] [address] [facility] Start: 04-29-2025 End: 04-29-2025 Patient encounter procedure 04/29/2025 8:50 AM EDT Office Visit [facility] [address] [place] [address] Robert Kumar MD [address], [address] [address] [facility] [place] Start: 04-27-2025 Adult BMI Screening Adult BMI Screen ing [facility] Start: 04-27-2025 Tobacco Screening Tobacco Screening [facility] Start: 04-20-2025 End: 04-20-2025 Patient encounter procedure 04/20/2025 9:00 AM EDT Appointment [facility] [address] [place] [id number] Robert Kumar MD [address] [address] [facility] Start: 04-07-2025 End: 04-07-2026 Urate [Mass/volume] in Serum or Plasma Uric acid Lab Routine Acute gout of left hand, unspecified cause Expected: 04/07/2025 (Approximate), Expires: 04/07/2026 [facility] Work Phone: Comment on above: Expected: 04/07/2025 (Approximate), Expires: 04/07/2026 Start: 04-07-2025 End: 04-07-2025 Patient encounter procedure [facility] Comment on above: Morbid (severe) obes ity due to excess calories (CMS-HCC) (Primary Dx); Gastro-esophageal reflux disease without esophagitis; 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); Cellulitis of left lower extremity Start: 04-01-2025 End: 04-01-2026 US.doppler Lower extremity vein - left Vas venous duplex insufficiency lwr lt Vascular Ultrasound Routine Chronic venous insufficiency Expected: 04/01/2025, Expires: 04/01/2026 [facility] Work Phone: Comment on above: Expected: 04/01/2025 , Expires: 04/01/2026 Start: 03-17-2025 End: 03-17-2026 Basic metabolic 1998 panel - Serum or Plasma Basic metabolic panel Lab Routine Electrolyte abnormality Expected: 03/17/2025 (Approximate), Expires: 03/17/2026 [facility] Work Phone: Comment on above: Expected: 03/17/2025 (Approximate), Expires: 03/17/2026 Start: 03-08-2025 End: 03-08-2025 Patient encounter procedure 03/08/2025 8:20 AM EDT Office Visit [facility] [address] [place] [id number] Pepper Sexton NP [address] [place] [id number] Essential hypertension, benign (Primary Dx); Cellulitis of left lower extremity; Left leg swelling; Morbid (severe) obesity due to excess calories (CMS-HCC) [facility] Comment on above: Essential hypertensi on, benign (Primary Dx); Cellulitis of left lower extremity; Left leg swelling; Morbid (severe) obesity due to excess calories (CMS-HCC) Start: 01-06-2025 End: 01-06-2026 CBC W Auto Differential panel - Blood CBC and differential Lab Routine Gastro-esophageal reflux disease without esophagitis Expected: 01/06/2025 (Approximate), Expires: 01/06/2026 [facility] Comment on above: Expected: 01/06/2025 (Approximate), Expires: 01/06/2026 Start: 01-06-2025 End: 01-06-2026 Comprehensive metabolic 2000 panel - Serum or Plasma Comprehensive metabolic panel Lab Routine Chronic kidney disease, stage 3a (HCC) (CMS/HCC) Essential hypertension, benign (CMS/HCC) Gastro-esophageal reflux disease without esophagitis Mixed hyperlipidemia (CMS/HCC) Expected: 01/06/2025 (Approximate), Expires: 01/06/2026 [facility] Comment on above: Expected: 01/06/2025 (Approximate), Expires: 01/06/2026 Start: 01-06-2025 End: 01-06-2026 Lipid 1996 panel - Serum or Plasma Lipid panel Lab Routine Mixed hyperlipidemia (CMS/HCC) Expected: 01/06/2025 (Approximate), Expires: 01/06/2026 [facility] Work Phone: Comment on above: Expected: 01/06/2025 (Approximate), Expires: 01/06/2026 Start: 01-06-2025 End: 01-06-2026 Microalbumin/Creatinine panel in random Urine Microalbumin / creatinine, urine ratio Lab Routine Essential hypertension, benign (CMS/HCC) Expected: 01/06/2025 (Approximate), Expires: 01/06/2026 [facility] Comment on above: Expected: 01/06/2025 (Approximate), Expires: 01/06/2026 Start: 01-06-2025 End: 04-16-2026 Prostate specific Ag [Mass/volume] in Serum or Plasma PSA Lab Routine Screening for prostate cancer Expected: 01/06/2025 (Approximate), Expires: 01/06/2026 [facility] Comment on above: Expected: 01/06/2025 (Approximate), Expires: 01/06/2026 Start: 01-06-2025 End: 01-06-2026 Thyrotropin [Units/volume] in Serum or Plasma TSH Lab Routine Hypothyroidism, unspecified type (CMS/HCC) Expected: 01/06/2025 (Approximate), Expires: 01/06/2026 [facility] Comment on above: Expected: 01/06/2025 (Approximate), Expires: 01/06/2026 Start: 01-06-2025 End: 01-06-2026 Thyroxine (T4) free [Mass/volume] in Serum or Plasma T4, free Lab Routine Hypothyroidism, unspecified type (CMS/HCC) Expected: 01/06/2025 (Approximate), Expires: 01/06/2026 [facility] Comment on above: Expected: 01/06/2025 (Approximate), Expires: 01/06/2026 Start: 01-06-2025 End: 01-06-2026 Urinalysis complete panel - Urine Urinalysis with reflex microscopic (clean catch) Lab Routine Essential hypertension, benign (CMS/HCC) Expected: 01/06/2025 (Approximate), Expires: 01/06/2026 [facility] Comment on above: Expected: 01/06/2025 (Approximate), [...] type (CMS/HCC) Expected: 12/06/2024 (Approximate), Expires: 10/08/2025 [facility] Work Phone: Comment on above: Expected: 12/06/2024 (Approximate), Expires: 10/08/2025 Start: 12-06-2024 End: 10-08-2025 Thyroxine (T4) free [Mass/volume] in Serum or Plasma T4, free Lab Routine Hypothyroidism, unspecified type (CMS/HCC) Expected: 12/06/2024 (Approximate), Expires: 10/08/2025 [facility] Comment on above: Expected: 12/06/2024 (Approximate), Expires: 10/08/2025 Start: 10-22-2024 End: 10-08-2025 Magnesium [Mass/volume] in Serum or Plasma Magnesium Lab Routine Hypomagnesemia Expected: 10/22/2024 (Approximate), Expires: 10/08/2025 [facility] Comment on above: Expected: 10/22/2024 (Approximate), Expires: 10/08/2025 Start: 10-07-2024 End: 10-07-2025 Magnesium [Mass/volume] in Serum or Plasma Magnesium Lab Routine Hypomagnesemia Expected: 10/07/2024 (Approximate), Expires: 10/07/2025 [facility] Comment on above: Expected: 10/07/2024 (Approximate), Expires: 10/07/2025 Start: 10-07-2024 End: 10-07-2025 Thyrotropin [Units/volume] in Serum or Plasma TSH Lab Routine Hypothyroidism, unspecified type (CMS/HCC) Expected: 10/07/2024 (Approximate), Expires: 10/07/2025 [facility] Work Phone: Comment on above: Expected: 10/07/2024 (Approximate), Expires: 10/07/2025 Start: 10-07-2024 End: 10-07-2025 Thyroxine (T4) free [Mass/volume] in Serum or Plasma T4, free Lab Routine Hypothyroidism, unspecified type (CMS/HCC) Expected: 10/07/2024 (Approximate), Expires: 10/07/2025 [facility] Comment on above: Expected: 10/07/2024 (Approximate), Expires: 10/07/2025 Start: 10-07-2024 End: 10-07-2024 Patient encounter procedure [facility] Comment on above: GURVINDER (obstructive sle ep apnea) (Primary Dx); Morbid (severe) obesity due to excess calories ([facility]/HCC); Gastro-esophageal reflux disease without esophagitis; Body mass index (BMI) 37.0-37.9, adult; COPD mixed type (CMS/HCC); Essential hypertension, benign (CMS/HCC); Pulmonary hypertension (CMS/HCC); Hypothyroidism, unspecified type (CMS/HCC); Obesity (BMI 30-39.9); Mixed hyperlipidemia (CMS/HCC); Hypomagnesemia; Marijuana use; Pre-diabetes Start: 10-06-2024 [facility] Start: 09-04-2024 End: 09-04-2025 Basic metabolic 1998 panel - Serum or Plasma Basic metabolic panel Lab Routine Hypomagnesemia Expected: 09/04/2024 (Approximate), Expires: 09/04/2025 [facility] Comment on above: Expected: 09/04/2024 (Approximate), Expires: 09/04/2025 Start: 09-04-2024 End: 09-04-2025 Magnesium [Mass/volume] in Serum or Plasma Magnesium Lab Routine Hypomagnesemia Expected: 09/04/2024 (Approximate), Expires: 09/04/2025 [facility] Work Phone: Comment on above: Expected: 09/04/2024 (Approximate), Expires: 09/04/2025 Start: 07-09-2024 [facility] Start: 07-06-2024 End: 07-06-2024 Patient encounter procedure [facility] Comment on above: Arrived Start: 06-30-2024 End: 06-30-2024 Patient encounter procedure [facility] Comment on above: Arrived Start: 06-09-2024 End: 06-09-2025 Basic metabolic 1997 panel - Serum or Plasma Basic metabolic panel Lab Routine Hypomagnesemia Expected: 06/09/2024 (Approximate), Expires: 06/09/2025 [facility] Work Phone: Comment on above: Expected: 06/09/2024 (Approximate), Expires: 06/09/2025 Start: 06-09-2024 End: 06-09-2025 Magnesium [Mass/volume] in Serum or Plasma Magnesium Lab Routine Hypomagnesemia Expected: 06/09/2024 (Approximate), Expires: 06/09/2025 [facility] Comment on above: Expected: 06/09/2024 (Approximate), Expires: 06/09/2025 Start: 06-03-2024 End: 06-03-2024 Patient encounter procedure 06/03/2024 8:45 AM EDT Office Visit [facility] [address] [place] [address] Blank Mcfarlane NP [address] [place] [address] [facility] Start: 05-27-2024 End: 05-27-2024 Patient encounter procedure 05/27/2024 10:40 AM EDT Office Visit [facility] [address] [place] [address] Karuna Carranza PA [address] [place], [place] [id number] [facility] [address] Start: 05-27-2024 End: 05-27-2024 Admission to same day surgery center 05/27/2024 7:30 AM EDT - 05/27/2024 8:30 AM EDT Surgery [facility] [address] [facility] [place] [address] Rupert Bo DO [address] [place] [address] DECOMPRESSION NERVE ULNAR [44781 (CPT )] [facility] Comment on above: DECOMPRESSION NERVE ULNAR [60206 (CPT )] Start: 05-27-2024 End: 05-27-2024 Neuroplasty &/transposition ulnar nerve elbow DECOMPRESSION NERVE ULNAR right ulnar neuropathy 05/27/2024 7:30 AM EDT [facility] Start: 05-27-2024 End: 05-27-2024 Patient encounter procedure 05/27/2024 7:30 AM EDT Procedure Visit [facility] Rupert Bo, DO [address] [place] [address] [facility] Start: 05-27-2024 Subsequent hospital visit by physician 05/27/2024 7:30 AM EDT Hospital Encounter [facility] [address] [place] [place] [address] Rupert Bo, DO [address] [place] [address] [facility] Start: 05-24-2024 Influenza vaccination Influenza Vacc ine [facility] Start: 2017 Administration of varicella zoster vaccine Zoster (Shingles) Vaccine (1 of 2) [facility] Start: 1986 DTaP,Tdap and Td Vaccines (1 - Tdap) DTaP,Tdap and Td Vaccines (1 - Tdap) [facility] Start: 1985 Adult BMI Follow Up Plan Adult BMI Follow Up Plan [facility] Start: 1979 Depression Screening Depression Scre ening [facility] Start: 1967 Screening for malign ant neoplasm of colon [facility] BLOOD CULTURE 1 BLOOD CULTURE 1 Lab Routine 02/07/2025 12:02 PM EDT [facility] BLOOD CULTURE 2 BLOOD CULTURE 2 Lab Routine 02/07/2025 12:45 PM EDT [facility] Patient Education [facility] Work Phone: Renal function 1999 panel - Serum or Plasma [facility] Renal function 1999 panel - Serum or Plasma [facility] Renal function 2000 panel - Serum or Plasma [facility] Renal function 1999 panel - Serum or Plasma [facility] Payers Date Payer Category Payer Self-pay 2019 [employer] Subscriber Plan / Payer (Effective 2019-Present) Name: Abram Guillaume Relation to Subscriber: Self Name: Abram Guillaume Payer ID: Not on file Type: Not on file Address: [address] [place] [id number] 2019 [facility] Managed Care - PPO ANTHEM [id number] 2019 Unknown [id number]. 1.13.693. 2.7.3.742943.315 1967 Unknown [id number] 2.16.840.1.586745.3.579. 2.593 1967 Unknown [id number] 2.16.840.1.791705.3.579. 2.593 1967 Unknown [id number] 2.16.840.1.212449.3.579. 2.593 1967 Unknown [id number] 2.16.840.1.134968.3.579. 2.593 1967 Unknown [id number] 2.16.840.1.991802.3.579. 2.593 1967 Unknown [id number] 2.16.840.1.421599.3.579. 2.128 1967 Unknown [id number] 2.16.840.1.085950.3.579. 2.1285 1967 Unknown [id number] 2.16.840.1.717021.3.579. 2.1285 1967 Unknown [id number] 2.16.840.1.663579.3.579. 2.1285 1967 Unknown [id number] 2.16.840.1.876605.3.579. 2.1285 1967 Unknown [id number] 2.16.840.1.551804.3.579. 2.1285 1967 Unknown [id number] 2.16.840.1.168152.3.579. 2.1258 1967 Unknown [id number] 2.16.840.1.775282.3.579. 2.1258 1967 Unknown [id number] 2.16.840.1.633618.3.579. 2.1258 1967 Unknown [id number] 2.16.840.1.380566.3.579. 2.1258 1967 Unknown [id number] 2.16.840.1.347161.3.579. 2.1258 1967 Unknown [id number] 2.16.840.1.634813.3.579. 2.1258 1967 Unknown [id number] 2.16.840.1.252388.3.579. 2.1258 1967 Unknown [id number] 2.16.840.1.419498.3.579. 2.1258 1967 Unknown [id number] 2.16.840.1.613442.3.579. 2.1258 1967 Unknown [id number] 2.16.840.1.822507.3.579. 2.1259 1967 Unknown [id number] 2.16.840.1.728381.3.579. 2.1259 1967 Unknown [id number] 2.16.840.1.610069.3.579. 2.1286 1959 Unknown [id number] 1959 Unknown [id number] Unknown [employer] [id number] Unknown [facility] [id number] Unknown [id number] 2.16.840.1.265559.3.579. 2.531 Unknown [id number] 2.16.840.1.955235.3.579. 2.531 Social History Date Type Detail Facility Start: 03-19-2024 Tobacco smoking status [facility] Current some day smoker [facility] Start: 1965 Sex Assigned At Male [facility] Start: 04-30-2024 End: 06-23-2024 Tobacco smoking status [facility] Ex-smoker (finding) [facility] History of tobacco use Current smoker [facility] History of tobacco use Cigar Smoker [facility] Start: 04-30-2024 End: 05-27-2024 Tobacco use and exposure Smokeless tobacco non-user [facility] Start: 06-03-2024 End: 04-07-2025 Alcoholic beverage intake Current drinker of alcohol (finding) [facility] Start: 11-25-2023 End: 11-26-2023 History of Social function [facility] Start: 11-25-2023 End: 11-26-2023 Social connection and isolation panel [facility] Do you belong to any clubs or organizations such as mu-ism groups, unions, fraternal or athletic groups, or [...] on file [facility] Start: 07-09-2024 End: 04-06-2025 Tobacco smoking status NHIS Never smoked tobacco (finding) [facility] Start: 04-28-2015 End: 10-06-2024 Sex Male (finding) [facility] History of tobacco use Cigarette Smoker P [facility] Start: 04-27-2024 Alcohol Comment social/recreational [facility] Goals Date Patient Goal Desired Activity /State Clinical Notes 04-27-2024 to 04-07-2025 Pepper Sexton NP - 04/07/2025 9:03 AM Dash Sexton NP - 04/07/2025 9:02 AM Dash Sexton NP - 04/07/2025 9:01 AM IRENE HERRERA - 04/07/2025 8:20 AM EDTPatient Instructions Note Date & Type Note Facility 04-07-2025 History of Presen t illness Narrative Associated Problem(s): Essential hypertension, benign Please check blood pressure daily and record DASH diet Limit caffeine Take medication as directed Contact office if chest pain, pressure, dizziness, shortness of breath, swelling legs Recommend slow position changes Current meds: amlodipine,- (is going to restart), bystolic, valsartan Associated Problem(s): Acute gout of left hand No steroids d/t eliquis No NSAIDS d/t BP Will trial voltaren gel and check uric acid Associated Problem(s): Bronchitis Doxy No resp distress, no wheeze Possible cold- sob, stuffy/runny nose, drainage, coughing yellow mucus, sinus pressure, for about 2 weeks now. No other s/s Pt would also like to discuss left hand pain- started about two weeks ago. Hand was swollen and unable to form fist. When seeing kidney yesterday, pt bp was 140/118. Dr hamilton started him back on the amlodipine 10mg tab. Pt has not picked up as of yet Images from the original note were not included. Abram Guillaume is a 59 y.o. male presents with chief complaint of Follow-up HPI: Possible cold- sob, stuffy/runny nose, drainage, coughing yellow mucus, sinus pressure, for about 2 weeks now. No other s/s Pt would also like to discuss left hand pain- started about two weeks ago. Hand was swollen and unable to form fist. When seeing kidney yesterday, pt bp was 140/118. Dr hamilton started him back on the amlodipine 10mg tab. Pt has not picked up as of yet Hypertension This is a chronic problem. The current episode started more than 1 year ago. The problem has been waxing and waning since onset. The problem is uncontrolled. Associated symptoms include peripheral edema. Pertinent negatives include no headaches, orthopnea or shortness of breath. There are no associated agents to hypertension. Risk factors for coronary artery disease include dyslipidemia, male gender, obesity and smoking/tobacco exposure. Past treatments include beta blockers and angiotensin blockers. The current treatment provides moderate improvement. There are no compliance problems. Hypertensive end-organ damage includes PVD. There is no history of CAD/PA or heart failure. Hand Pain The incident occurred more than 1 week ago. There was no injury mechanism. The pain is present in the left fingers. The quality of the pain is described as aching. The pain does not radiate. The pain is moderate. The pain has been Fluctuating since the incident. Associated symptoms include muscle weakness. The symptoms are aggravated by movement. URI This is a new problem. The current episode started 1 to 4 weeks ago. The problem has been unchanged. Associated symptoms include coughing. Pertinent negatives include no diarrhea, dysuria, ear pain, headaches, sneezing or wheezing. He has tried nothing for the symptoms. SUBJECTIVE: MEDICATIONS: Current Outpatient Medications Medication Instructions acetaminophen (TYLENOL 8 HOUR) 650 mg, Every 8 hours PRN albuterol HFA (Ventolin HFA) 90 mcg/act inhaler 2 puffs, Inhalation, Every 6 hours PRN amLODIPine (NORVASC) 10 mg, Oral, Daily budesonide-formoterol (Symbicort) 160-4.5 MCG/ACT inhaler 2 puffs, Inhalation, 2 times daily, Rinse mouth with water after use to reduce aftertaste and incidence of candidiasis. Do not swallow. diclofenac sodium (VOLTAREN ARTHRITIS PAIN) 2 g, Topical, 3 times daily doxepin (SINEQUAN) 100 mg, Oral, Nightly doxycycline (VIBRA-TABS) 100 mg, Oral, 2 times daily, Take with a full glass of water and do not lie down for at least 30 minutes after. Eliquis 5 MG tablet TAKE 2 TABLETS [...] appetite change and unexpected weight change. HENT: Positive for sinus pressure. Negative for ear pain, nosebleeds, sneezing, trouble swallowing and voice change. Eyes: Negative for pain, discharge and visual disturbance. Respiratory: Positive for cough. Negative for apnea, chest tightness, shortness of breath and wheezing. Cardiovascular: Positive for leg swelling. Negative for orthopnea. Gastrointestinal: Negative for abdominal distention, blood in stool, constipation and diarrhea. Genitourinary: Negative for decreased urine volume, difficulty urinating, dysuria and hematuria. Musculoskeletal: Positive for arthralgias. Skin: Negative for color change. Neurological: Negative for dizziness, tremors, seizures and headaches. Psychiatric/Behavioral: Negative for agitation, decreased concentration, hallucinations, [...] his father. OBJECTIVE: Visit Vitals BP (!) 160/106 (BP Location: Left arm, Patient Position: Sitting, BP Cuff Size: Large adult) Pulse 97 Temp 97.8 F (Temporal) Resp 18 Wt 260 lb SpO2 93% BMI 38.40 kg/m Smoking Status Former BSA 2.4 m Physical Exam Vitals and nursing note reviewed. Constitutional: Appearance: Normal appearance. He is obese. He is not ill-appearing. HENT: Head: Normocephalic. Right Ear: Tympanic membrane, ear canal and external ear normal. Left Ear: Tympanic membrane, ear canal and external ear normal. Nose: Congestion present. No rhinorrhea. Mouth/Throat: Mouth: Mucous membranes are moist. Pharynx: Oropharynx is clear. No oropharyngeal exudate or posterior oropharyngeal erythema. Eyes: Extraocular Movements: Extraocular movements intact. Conjunctiva/sclera: Conjunctivae normal. Neck: Vascular: No carotid bruit. Cardiovascular: Rate and Rhythm: Normal rate and regular rhythm. Pulses: Normal pulses. Heart sounds: Normal heart sounds. No murmur heard. Pulmonary: Effort: Pulmonary effort is normal. Breath sounds: Normal breath sounds. No wheezing. Abdominal: General: Bowel sounds are normal. Palpations: Abdomen is soft. Musculoskeletal: Cervical back: Neck supple. Right lower leg: Edema present. Left lower leg: Edema present. Comments: Mild swelling over the 3rd MCP joint no erythema no warmth Lymphadenopathy: Cervical: No cervical adenopathy. Skin: General: Skin is warm and dry. Capillary Refill: Capillary refill takes 2 to 3 seconds. Neurological: General: No focal deficit present. Mental Status: He is alert. Psychiatric: Mood and Affect: Mood normal. Behavior: Behavior normal. Thought Content: Thought content normal. Judgment: Judgment normal. ASSESSMENT AND PLAN: Follow up in about 4 weeks (around 05/05/2025) for Recheck. Problem List Items Addressed This Visit Fibromyalgia Relevant Medications doxepin (SINEquan) 10 MG/ML solution Essential hypertension, benign Please check blood pressure daily and record DASH diet Limit caffeine Take medication as directed Contact office if chest pain, pressure, dizziness, shortness of breath, swelling legs Recommend slow position changes Current meds: amlodipine,- (is going to restart), bystolic, valsartan Morbid (severe) obesity due to excess calories ([facility]-HCC) - Primary Discussed with patient their BMI (actual, verses recommended). We have also discussed lifestyle modifications: attempts to perform physical activity as chronic conditions allow, also to monitor dietary intake: increasing protein/fruits/veggies and lowering carb intake (unless contraindicated). Limit sodas, juices, and sugary drinks. 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) Reviewed vascular notes Bronchitis Doxy No resp distress, no wheeze Relevant Medications doxycycline (Vibra-Tabs) 100 MG tablet Acute gout of left hand No steroids d/t eliquis No NSAIDS d/t BP Will trial voltaren gel and check uric acid Relevant Medications diclofenac sodium (Voltaren Arthritis Pain) 1 % gel Other Relevant Orders Uric acid Associated Problem(s): 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) Reviewed vascular notes Associated Problem(s): Gastro-esophageal reflux disease without esophagitis [...] tolerate off of PPI therapy Associated Problem(s): Morbid (severe) obesity due to excess calories ([facility]-HCC) Discussed with patient their BMI (actual, verses recommended). We have also discussed lifestyle modifications: attempts to perform physical activity as chronic conditions allow, also to monitor dietary intake: increasing protein/fruits/veggies and lowering carb intake (unless contraindicated). Limit sodas, juices, and sugary drinks. documented in this encounter [facility] 04-07-2025 Instructions Pepper Sexton NP - 04/07/2025 8:20 AM EDT Diclofenac cream/gel to joint on left hand Next lab draw check uric acid documented in this encounter [facility] 04-01-2025 Evaluation + Plan note Associated Problem(s): 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 ([facility]-HCC) Compression therapy leg elevation exercise. Calamine cream. We will get venous reflux ultrasound. [facility] 04-01-2025 Evaluation + Plan note Associated Problem(s): Chronic deep vein thrombosis (DVT) of popliteal vein of left lower extremity (CMS-HCC) Compression therapy venous reflux ultrasound. Calamine cream to the skin. [facility] 04-01-2025 Miscellaneous Notes Associate d Problem(s): 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 (CMS-HCC) Compression therapy leg elevation exercise. Calamine cream. We will get venous reflux ultrasound. Associated Problem(s): Chronic deep vein thrombosis (DVT) of popliteal vein of left lower extremity (CMS-HCC) Compression therapy venous reflux ultrasound. Calamine cream to the skin. documented in this encounter [facility] 04-01-2025 History of Presen t illness Narrative Images from the original note were not included. To: PEPPER SEXTON, [employer] HPI: Abram Guillaume is a 59 y.o. male with left lower extremity swelling and skin changes consistent with venous eczema. In history he was recently admitted and had superficial thrombophlebitis. The most recent CT scan from 3 years ago had chronic post thrombotic change in the popliteal vein in the left side. No open ulcer pressure per se. He uses compression therapy.. Review of Systems: Review of Systems Constitutional: Negative. HENT: Negative. Respiratory: Negative. Cardiovascular: Negative. Gastrointestinal: Negative. Endocrine: Negative. Genitourinary: Negative. Musculoskeletal: Negative. Skin: Negative. Neurological: Negative. Hematological: Negative. Medications: Current Outpatient Medications on File Prior to Visit Medication Sig Dispense Refill acetaminophen (TYLENOL ARTHRITIS) 650 mg 8 hr tablet Take 1 tablet (650 mg total) by mouth every 8 (eight) hours as needed for pain. albuterol (PROVENTIL HFA;VENTOLIN HFA) 90 mcg/actuation inhaler Inhale 2 puffs every 6 (six) hours as needed for wheezing. 18 g 11 budesonide-formoteroL (SYMBICORT) 80-4.5 mcg/actuation inhaler Inhale 2 puffs in the morning and 2 puffs before bedtime. 10.2 g 12 doxepin (SINEquan) 10 mg capsule Take 1 capsule (10 mg total) by mouth nightly. famotidine (PEPCID) 20 mg tablet Take 2 tablets (40 mg total) by mouth in the morning. gabapentin (NEURONTIN) 300 mg capsule Take 1 capsule (300 mg total) by mouth in the morning and 1 capsule (300 mg total) before bedtime. levothyroxine (SYNTHROID, LEVOTHROID) 25 MCG tablet Take 4 tablets (100 mcg total) by mouth in the morning. magnesium oxide (MAGOX) 400 mg tablet Take 1 tablet (400 mg total) by mouth in the morning and 1 tablet (400 mg total) at noon and 1 tablet (400 mg total) before bedtime. montelukast (SINGULAIR) 10 mg tablet Take 1 tablet (10 mg total) by mouth nightly. nebivoloL (BYSTOLIC) 5 mg tablet Take 1 tablet (5 mg total) by mouth in the morning. omeprazole (PriLOSEC) 40 mg capsule Take 1 capsule (40 mg total) by mouth in the morning. valsartan (DIOVAN) 320 mg tablet Take 1 tablet (320 mg total) by mouth in the morning. ibuprofen (ADVIL,MOTRIN) 200 mg tablet Take 1 tablet (200 mg total) by mouth every 6 (six) hours as needed for pain. (Patient not taking: Reported on 04/01/2025) meloxicam (MOBIC) 15 mg tablet Take 1 tablet (15 mg total) by mouth in the morning. (Patient not taking: Reported on 04/01/2025) No current facility-administered medications on file prior to visit. Past Medical History: Past Medical History: Diagnosis Date Arthritis Asthma seasonal/weather Dermatitis Fibromyalgia, primary GERD (gastroesophageal reflux disease) HTN (hypertension) Hyperlipidemia Hypothyroid Injury of back Obesity Pulmonary HTN (CMS-HCC) show on echo 01/2023 Rash Sleep apnea Syncope Visual impairment Past Surgical History: Past Surgical History: Procedure Laterality Date DECOMPRESSION NERVE ULNAR Right 05/27/2024 Performed by Rupert Bo DO at [facility] HERNIA REPAIR Bilateral inguinal LEG SURGERY Left 2011 broken tib/fib TONSILLECTOMY Social and Family History: Social History Socioeconomic History Marital status: Spouse name: Not on file Number of children: Not on file Years of education: Not on file Highest education level: Not on file Occupational History Not on file Tobacco Use Smoking status: Never Smokeless tobacco: Never Vaping Use Vaping status: Never Used Substance and Sexual Activity Alcohol use: Yes Alcohol/week: 4.0 standard drinks of alcohol Types: 4 Cans of beer per week Comment: social/recreational Drug use: Yes Types: Marijuana Comment: quit a month ago Sexual activity: Defer Other Topics Concern Caffeine Use Yes Social History Narrative Not on file Social Drivers of Health Financial Resource Strain: Medium Risk (11/25/2023) Received from [facility] Overall Financial Resource Strain (CARDIA) Difficulty of Paying Living Expenses: Somewhat hard Food Insecurity: No Food Insecurity (11/25/2023) Received from [facility] Hunger Vital Sign Worried About Running Out of Food in the Last Year: Never true Ran Out of Food in the Last Year: Never true Transportation Needs: No Transportation Needs (11/25/2023) Received from [facility] PRAPARE - Transportation Lack of Transportation (Medical): No Lack of Transportation (Non-Medical): No Physical Activity: Sufficiently Active (11/25/2023) Received from [facility] Exercise Vital Sign Days of Exercise per Week: 5 days Minutes of Exercise per Session: 150+ min Stress: Stress Concern Present (11/25/2023) Received from [facility] [place] [employer] - Occupational Stress Questionnaire Feeling of Stress : To some extent Social Connections: Moderately Integrated (11/25/2023) Received from [facility] Social Connection and Isolation Panel [NHANES] Frequency of Communication with Friends and Family: Once a week Frequency of Social Gatherings with Friends and Family: Three times a week Attends Amish Services: Never Active Member of Clubs or Organizations: Yes Attends Club or Organization Meetings: Never Marital Status: Interpersonal Safety: Unknown (11/14/2023) Received from [facility] Safety & Environment Fear of Current or Ex-Partner: Not on file Emotionally Abused: Not on file Physically Abused: Not on file Sexually Abused: Not on file Physically or Sexually Abused: Not on file Housing Instability: Low Risk (11/25/2023) Received from [facility] Housing Stability Vital Sign Unable to Pay for Housing in the Last Year: No Number of Places Lived in the Last Year: 1 Unstable Housing in the Last Year: No Family History Problem Relation Age of Onset Arthritis Mother No Known Problems Father Recent Labs: Recent and relative labs were reviewed and interpreted and contributed to the assessment and plan below. Vitals: BP (!) 177/122 (BP Site: Right Arm, BP Postition: Sitting, BP CUFF SIZE: M (9-13 inches)) Pulse 91 Ht 175.3 cm (5' 9 ) Wt 115.7 kg (255 lb) BMI 37.66 kg/m Body mass index is 37.66 kg/m . Physical Exam: Physical Exam Constitutional: Appearance: Normal appearance. HENT: Head: Normocephalic and atraumatic. Mouth/Throat: Mouth: Mucous membranes are moist. Eyes: Extraocular Movements: Extraocular movements intact. Pupils: Pupils are equal, round, and reactive to light. Cardiovascular: Rate and Rhythm: Normal rate and regular rhythm. Pulmonary: Effort: Pulmonary effort is normal. Breath sounds: Normal breath sounds. Abdominal: General: Abdomen is flat. Bowel sounds are normal. Palpations: Abdomen is soft. Musculoskeletal: General: Normal range of motion. Cervical back: Normal range of motion. Skin: General: Skin is warm and dry. Neurological: General: No focal deficit present. Mental Status: He is alert and oriented to person, place, and time. Mental status is at baseline. Psychiatric: Mood and Affect: Mood normal. Behavior: Behavior normal. Thought Content: Thought content normal. Judgment: Judgment normal. Recent testing: Assessment and Plan: Problem List Chronic deep vein thrombosis (DVT) of popliteal vein of left lower extremity ([facility]-HCC) Current Assessment & Plan Compression therapy venous reflux ultrasound. Calamine cream to the skin. 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 (CMS-HCC) Current Assessment & Plan Compression therapy leg elevation exercise. Calamine cream. We will get venous reflux ultrasound. Abram was seen today for cellulitis of left lower extremity left leg swelling . Diagnoses and all orders for this visit: Chronic venous insufficiency - Vas venous duplex insufficiency lwr lt; Future - Thigh high anti-embolism stocking Lg/Regular ([id number]) Chronic deep vein thrombosis (DVT) of popliteal vein of left lower extremity ([facility]-HCC) 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 ([facility]-HCC) Robert Kumar MD, ZAN, RPVI, FSVS, FACS [facility] [employer] [facility] This note was created with the assistance of a speech recognition program. While intending to generate a timely document that accurately reflects the content of the visit, no guarantee can be provided that every grammatical or spelling mistake has been or will be identified or corrected. Thank you for your understanding. documented in this encounter [facility] 03-08-2025 History of Presen t illness Narrative Associated Problem(s): Left leg swelling As per cellulitis entry Associated Problem(s): Cellulitis of left lower extremity Finished off meds Vascular consult was inadvertantly missed at last appt Placed today Would like to RTW as of 03/09/25, I have advised I would like him to wear hernando wrap to LLE to help with swelling Fu in 4 weeks Pt still has not heard from vascular as of yet. Swelling has gone down some in left leg however pt still has complaints of ankle pain Images from the original note were not [...] Size: Large adult) Pulse 76 Temp 98.1 F (Temporal) Resp 20 Wt 259 lb 3.2 oz SpO2 94% BMI 38.28 kg/m Smoking Status Former BSA 2.4 m Physical Exam Vitals and nursing note [...] Morbid (severe) obesity due to excess calories ([facility]-HCC) Discussed with patient their BMI (actual, verses [...] Relevant Medications gabapentin (Neurontin) 600 MG tablet Associated Problem(s): Morbid (severe) obesity due to excess calories ([facility]-HCC) Discussed with patient their BMI (actual, verses recommended). We have also discussed lifestyle modifications: attempts to perform physical activity as chronic conditions allow, also to monitor dietary intake: increasing protein/fruits/veggies and lowering carb intake (unless contraindicated). Limit sodas, juices, and sugary drinks. Would recommend looking into weight watchers program Associated Problem(s): Essential hypertension, benign Please check blood pressure daily and record DASH diet Limit caffeine Take medication as directed Contact office if chest pain, pressure, dizziness, shortness of breath, swelling legs Recommend slow position changes Current meds: amlodipine, bystolic, valsartan Blood pressure is elevated today, however took meds about 45 mins ago documented in this encounter [facility] 03-08-2025 Instructions Pepper Sexton NP - 03/08/2025 8:20 AM EDT Return to work as of 03/09/25 Keep fu appt with me for March Hernando wrap for Left lower leg documented in this encounter [facility] 02-17-2025 History of Presen t illness Narrative Associated Problem(s): MARITZA (acute kidney injury) (CMS/HCC) Returning to baseline Associated Problem(s): Cellulitis of left lower extremity Finish atb's Off work until re assessed Elevate foot Associated Problem(s): Nicotine dependence The patient has been advised of the risks of continued smoking: stroke, PA, all forms of cancer, lung disease, and . Options for quitting smoking include: cold turkey, hypnosis, acupuncture, nicotine replacement meds (gum, lozenges, and patches), Buproprion, and Varenicline. At this time pt is encouraged to evaluate their goals for wanting to quit smoking, and reach out to provider when ready to start this process Associated Problem(s): Hypomagnesemia Since last visit changed magnesium to magnesium glycinate per nephrology They are managing this now Associated Problem(s): Morbid (severe) obesity due to [...] 3a (HCC) (CMS/HCC) Sees nephrology Associated Problem(s): Essential hypertension, benign (CMS/HCC) Please check blood pressure daily and record DASH diet Limit caffeine Take medication as directed Contact office if chest pain, pressure, dizziness, shortness of breath, swelling legs Recommend slow position changes Current meds: amlodipine, bystolic, valsartan Left leg-celulitis pt is on two atb levaquin and sefdinir Pt was taken off of the amlodipine. Pt is on elequis Images from the original note were not included. Abram Guillaume is a 59 y.o. male presents with chief complaint of No chief complaint on file. HPI: Here for hospital follow: sepsis, cellulitis, leg pain, low magnesium Reviewed hospital notes, labs, and testing In patient from : 02/07/25-02/12/25 Here for TCM Discharged home on levaquin, cefdinir, as well as eliquis Pain levels: 7-8/10, now ankle 6-7/10. +NT right thigh, left leg no. No fever or chills, +diarrhea, black in color, 3-5 times daily. No abd pain noted SUBJECTIVE: MEDICATIONS: Current Outpatient Medications Medication Instructions [...] volume, difficulty urinating, dysuria and hematuria. Skin: Positive for wound. Negative for color change. Neurological: Negative for [...] 11/26/2023 Psoriasis 11/26/2023 Restless legs Rheumatoid arthritis (CMS/HCC) Thyroid disease (CMS/HCC) Venous reflux 11/26/2023 Past Surgical History: Procedure Laterality Date FOOT SURGERY HERNIA REPAIR HERNIA REPAIR LEG SURGERY 2012 fractured leg ULNAR NERVE REPAIR Right 05/27/2024 Dr. Bo family history includes Hypertension in his father. OBJECTIVE: Visit Vitals BP 116/90 (BP Location: Left arm, Patient Position: Sitting, BP Cuff Size: Adult long) Pulse 104 Temp 98 F (Temporal) Resp 22 Wt 258 lb 6.4 oz SpO2 94% BMI 38.16 kg/m Smoking Status Former BSA 2.39 m Physical Exam Vitals and nursing note [...] sounds are normal. Palpations: Abdomen is soft. Tenderness: There is no abdominal tenderness. Musculoskeletal: Cervical back: Neck supple. Left lower leg: Edema present. Comments: Measurements: LLE: calf 19. 25 inches, ankle 12.25 inches RLE: calf 16.75 The skin is dry, scaley, mod erythematous, no warmth, no drainage Swelling is noted from upper leg to ankle, left foot has now returned to normal size Edema 2+ pitting LLE Lymphadenopathy: Cervical: No cervical adenopathy. Skin: General: Skin is warm and dry. Capillary Refill: Capillary refill takes 2 to 3 seconds. Neurological: General: No focal deficit present. Mental Status: He is alert. Psychiatric: Mood and Affect: Mood normal. Behavior: Behavior normal. Thought Content: Thought content normal. Judgment: Judgment normal. ASSESSMENT AND PLAN: Follow up in about 2 weeks (around 03/03/2025) for Recheck. Problem List Items Addressed This Visit Essential hypertension, benign (CMS/HCC) - Primary Please check blood pressure daily and record DASH diet Limit caffeine Take medication as directed Contact office if chest pain, pressure, dizziness, shortness of breath, swelling legs Recommend slow position changes Current meds: amlodipine, bystolic, valsartan Nicotine dependence The patient has been advised of the risks of continued smoking: stroke, PA, all forms of cancer, lung disease, and . Options for quitting smoking include: cold turkey, hypnosis, acupuncture, nicotine replacement meds (gum, lozenges, and patches), Buproprion, and Varenicline. At this time pt is encouraged to evaluate their goals for wanting to quit smoking, and reach out to provider when ready to start this process Hypomagnesemia Since last visit changed magnesium to magnesium glycinate per nephrology They are managing this now Morbid (severe) obesity due to excess calories (CMS/HCC) Discussed with patient their BMI (actual, verses recommended). We have also discussed lifestyle modifications: attempts to perform physical activity as chronic conditions allow, also to monitor dietary intake: increasing protein/fruits/veggies and lowering carb intake (unless contraindicated). Limit sodas, juices, and sugary drinks. Would recommend looking into weight watchers program Cellulitis of left lower extremity Finish atb's Off work until re assessed Elevate foot MARITZA (acute kidney injury) (CMS/HCC) Returning to baseline documented in this encounter [facility] 02-17-2025 Instructions Pepper Sexton NP - 02/17/2025 4:[address] isabel referral Finish antibiotics, elevate leg Off work 2 weeks, documented in this encounter [facility] 01-06-2025 History of Presen t illness Narrative [...] compliance problems. There is no history of CAD/PA, heart failure or PVD. GERD He reports [...] amlodipine, bystolic, valsartan documented in this encounter [facility] 01-06-2025 Instructions Pepper Sexton NP - 01/06/2025 9:00 AM EDT Fasting labs due after 03/02/25 documented in this encounter [facility] 10-07-2024 History of Presen t illness [...] kidney disease. There is no history of CAD/PA. 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 documented in this encounter [facility] 10-06-2024 History and physical note Note Date/Time October 06, 2024 8:32am [facility] [address] [place] [address] Gastroenterology H&P Signed Patient: Abram Guillaume MR#: [id number] 4 : 1965 Acct:[id number] Age/Sex: 58 / M Adm Date: 5 Loc: Room: Type: [facility] Attending Dr: James Elaine MD Copies [...] signed by James Elaine MD> 10/06/24 0832 [facility] Work Phone: 1(461) 773-294301-14-2025 [place] [address] EGD Procedure Note Signed Patient: Abram Guillaume MR#: [id number] 4 : 1965 Acct:[id number] Age/Sex: 58 / M Adm Date: 5 Loc: Room: Type: [facility] Attending Dr: James Elaine MD Copies to: MD Pepper Werner NP-C~ Esophagogastroduodenoscopy Date/Provider Date: 10/06/2024 James Elaine MD Procedure Findings: Procedure: EGD with biopsy Indication: 58-year-old man with history of esophagitis here for EGD to assess for Diana's Pre-operative diagnosis: History of esophagitis Post-operative diagnosis: [place]-colored mucosa in the esophagus otherwise normal EGD [...] 0832 Signed By: 10/06/24 0834 [facility]01-14-2025 [place] [address] Gastroenterology H&P Signed Patient: Abram Guillaume MR#: [id number] 4 : 1965 Acct:[id number] Age/Sex: 58 / M Adm Date: 5 Loc: Room: Type: [facility] Attending Dr: James Elaine MD Copies [...] By: James Elaine MD 10/06/24830 Signed By: 10/06/2432 [facility]01-06-2025 History of Present illness Narrative * Pepper Carlie, MANAGER FORMS - 09/28/2024 6:03 PM ESTAssociated Problem(s): Hypomagnesemia [...] suggestions regarding this matter. documented in this encounterSac-[facility] [id number] Procedure [facility]10-14-2024 History of Present illness Narrative* Pepper Sexton [...] scope with GI, has been off his PPI/F4ulqswtlo for up coming EGD etc Continue with [...] scope with GI, has been off his PPI/P6phyyaxco for up coming EGD etc Continue with GI Essential hypertension, benign (CMS/HCC) - Primary At goal no med dose chagnes Hypothyroidism (CMS/HCC) No med dose changes Hypomagnesemia Continue with TID magnesium and fu with Nephrology Relevant Medications magnesium oxide (Mag-Ox) 400 MG tablet Obesity (BMI 30-39.9) Needs flu shot declines documented in this encounterSac-Osage [id number] History of Present illness Narrative* Rupert Bo, [...] Dr. Bo/lloyd Bo D.O. documented in this encounterSac-Osage [id number] Telephone encounter Note* Telephone Encounter - DEBI Cho - 06/09/2024 12:22 PM EDT Spoke with patient and he will RTW tomorrow with light duty [facility] Work Phone: [phone]) 997-750109-17-2024 Miscellaneous Notes* Telephone Encounter - DEBI Cho [...] questions, if you could call him at [phone] documented in this encounterSac-Osage [id number] Telephone encounter Note* Telephone Encounter - DEBI Cho - 06/09/2024 12:16 PM EDT Spoke with patient and answered questions, he would like to RTW tomorrow with restrictions, spoke with Dr Bo and he said that was fine [id number] Telephone encounter Note* Telephone Encounter - Sarah Marshall - 06/09/2024 12:13 PM EDT Pt called and left vm stated he has PO questions, if you could call him at [phone] [facility] [id number] History of Present illness Narrative* Blank Mcfarlane [...] weeks, continue off work documented in this encounterNOSt. Luke's [id number] Telephone encounter Note* Telephone Encounter - Tiburcio Noel NP - 05/26/2024 12:16 PM EDT Post op pain rx. PDMP reviewed [id number] Miscellaneous Notes* Telephone Encounter - Tiburcio Noel NP - 05/26/2024 12:16 PM EDT Post op pain rx. PDMP reviewed documented in this encounterSac-Osage [id number] Instructions* Patient Instructions* Ora Delvalle RN - 04/27/2024 8:15 AM EDT Preoperative Education Checklist- General Surgery date: 05/27/24 Surgery time: 0730 a.m. Arrival time: 0610 a.m. 1. Bring a photo ID and your insurance card with you the day of surgery. You will check in at the main lobby of the [facility]- registration desk is straight ahead as soon as you walk in. Tell them you are here for surgery. 2. If you have a Living Will/Durable Power of Lead [employer] that is not on [...] after you have bathed. 5. NO nail swedish/acrylic on at least one finger. If you are having a hand, wrist or foot surgery then all nail swedish and artificial/acrylic nails must be removed from [...] please call the Preadmission Testing office at [phone], Mon.-Fri. 7 a.m.-3 p.m. Leave a voicemail [...] appointment with your doctor. [facility] Miscellaneous Notes* Perioperative Nursing Note - Ora Delvalle RN - 04/27/2024 8:15 AM EDT Preoperative Education Checklist- General Surgery date: 05/27/24 Surgery time: 0730 a.m. Arrival time: 0610 a.m. 1. Bring a photo ID and your insurance card with you the day of surgery. You will check in at the main lobby of the [facility]- registration desk is straight ahead as soon as you walk in. Tell them you are here for surgery. 2. If you have a Living Will/Durable Power of Lead [employer] that is not on [...] after you have bathed. 5. NO nail swedish/acrylic on at least one finger. If you are having a hand, wrist or foot surgery then all nail swedish and artificial/acrylic nails must be removed from [...] please call the Preadmission Testing office at [phone], Mon.-Fri. 7 a.m.-3 p.m. Leave a voicemail [...] reviewed. Patient verbalized understanding. [facility] in [facility] encounter[facility] Nurse Note* Perioperative Nursing Note - Ora Delvalle RN - 04/27/2024 8:15 AM EDT Preoperative Education Checklist- General Surgery date: 05/27/24 Surgery time: 0730 a.m. Arrival time: 0610 a.m. 1. Bring a photo ID and your insurance card with you the day of surgery. You will check in at the main lobby of the [facility]- registration desk is straight ahead as soon as you walk in. Tell them you are here for surgery. 2. If you have a Living Will/Durable Power of Lead [employer] for Health [employer] that is not on [...] after you have bathed. 5. NO nail swedish/acrylic on at least one finger. If you are having a hand, wrist or foot surgery then all nail swedish and artificial/acrylic nails must be removed from [...] please call the Preadmission Testing office at [phone], Mon.-Fri. 7 a.m.-3 p.m. Leave a voicemail [...] to the follow-up appointment with your doctor. [facility]08-05-[facility] Nurse Note* Perioperative Nursing Note - Ora Delvalle RN - 04/27/2024 8:15 AM EDT Hibiclens and surgical instructions reviewed. Patient verbalized understanding. [facility]* Diagnosis Onset Date Resolution Status GERD (gastroesophageal reflux disease) acute Hypomagnesemia acute Primary hypertension [facility] Work Phone: Evaluation note* Diagnosis Onset Date Resolution Status GERD (gastroesophageal reflux disease) acute Hypomagnesemia acute Primary hypertension acute Dyspepsia acute GERD (gastroesophageal reflux disease) [facility] Work Phone: Evaluation note* Diagnosis Restless legs syndrome Restless legs syndrome (RLS) documented [facility]* Diagnosis Cubital tunnel syndrome on [...] (CMS/HCC) Essential hypertension, benign Essential (primary) hypertension ([facility]/HCC)- Primary Unspecified essential hypertension Morbid (severe) obesity due to excess calories ([facility]) Body mass index (BMI) 38.0-38.9, adult Obesity (BMI 30-39.9) Cigarette nicotine dependence without complication Gastroesophageal reflux disease, unspecified whether esophagitis present Hypomagnesemia Disorders of magnesium metabolism Pre-operative clearance- Primary Unspecified pre-operative examination Hypomagnesemia Disorders of magnesium metabolism Restless legs syndrome Restless legs syndrome (RLS) COPD with acute exacerbation ([facility]) Chronic bronchitis, unspecified chronic bronchitis type ([facility]/HCC) Essential hypertension, benign ([facility]/HCC) Essential hypertension, benign Gastroesophageal reflux disease, unspecified whether esophagitis present GURVINDER (obstructive sleep apnea) Obstructive sleep apnea (adult) (pediatric) Pulmonary hypertension ([facility]/HCC) Other chronic pulmonary heart diseases LV dysfunction Left heart failure Essential hypertension, benign ([facility]/HCC)- Primary Essential hypertension, benign Hypomagnesemia Disorders of magnesium metabolism Gastroesophageal reflux disease, unspecified whether esophagitis present Obesity (BMI 30-39.9) Hypothyroidism, unspecified type (CMS/HCC) Needs flu shot Need for prophylactic vaccination and inoculation against influenza Hypomagnesemia- Primary Disorders of magnesium metabolism documented in [facility] encounter [facility]* Diagnosis Post-operative pain- Primary Other [...] of magnesium metabolism documented in this encounter [facility]* Diagnosis Essential hypertension, [...] myalgia and myositis documented in this encounter [facility] HealthcareEvaluation note* Diagnosis Essential hypertension, [...] of magnesium metabolism documented in this encounter [facility] HealthcareEvaluation noteNo assessment information availableC[facility] Work Phone: Evaluation note* Diagnosis [...] of magnesium metabolism documented in this encounter [facility] HealthcareEvaluation note* Diagnosis Essential hypertension, [...] Morbid (severe) obesity due to excess calories ([facility]) Body mass index (BMI) 38.0-38.9, adult Obesity (BMI 30-39.9) Cigarette nicotine dependence without complication Gastroesophageal reflux disease, unspecified whether esophagitis present Hypomagnesemia Disorders of magnesium metabolism Pre-operative clearance- Primary Unspecified pre-operative examination Hypomagnesemia Disorders of magnesium metabolism Restless legs syndrome Restless legs syndrome (RLS) COPD with acute exacerbation ([facility]) Chronic bronchitis, unspecified chronic bronchitis type ([facility]/HCC) Essential hypertension, benign (CMS/HCC) Essential hypertension, benign Gastroesophageal reflux disease, unspecified whether esophagitis present GURVINDER (obstructive sleep apnea) Obstructive sleep apnea (adult) (pediatric) Pulmonary hypertension ([facility]/HCC) Other chronic pulmonary heart diseases LV dysfunction Left heart failure Essential hypertension, benign (CMS/HCC)- Primary Essential hypertension, benign Hypomagnesemia Disorders of magnesium metabolism Gastroesophageal reflux disease, unspecified whether esophagitis present Obesity (BMI 30-39.9) Hypothyroidism, unspecified type ([facility]/HCC) Needs flu shot Need for prophylactic vaccination and inoculation against influenza Hypomagnesemia- Primary Disorders of magnesium metabolism Essential hypertension, benign ([facility]/HCC)- Primary Essential hypertension, benign Morbid (severe) obesity due to excess calories ([facility]/HCC) Gastro-esophageal reflux disease without esophagitis Body mass index (BMI) 37.0-37.9, adult GURVINDER (obstructive sleep apnea) Obstructive sleep apnea (adult) (pediatric) COPD mixed type ([facility]/HCC) Pulmonary hypertension ([facility]/HCC) Other chronic pulmonary heart diseases Hypothyroidism, unspecified type ([facility]/HCC) Obesity (BMI 30-39.9) Mixed hyperlipidemia (CMS/HCC) Mixed hyperlipidemia Hypomagnesemia Disorders of magnesium metabolism Marijuana use Pre-diabetes Other abnormal glucose Chronic bronchitis, unspecified chronic bronchitis type (CMS/HCC) Hypomagnesemia Disorders of magnesium metabolism Restless legs syndrome Restless legs syndrome (RLS) documented in this encounter [facility] HealthcareEvaluation note* Diagnosis Preop examination- Primary Unspecified pre-operative examination Hypertension, unspecified type documented in this encounter [facility] SystemEvaluation note* Diagnosis Onset Date Resolution Status Admit Date GERD (gastroesophageal reflu x disease) acute December 02, 2024 1:43pm Hypomagnesemia acute November 1:43pm Primary hypertension acute [facility] 2024 1:43pm [facility] Work Phone: Evaluation note* Diagnosis Essential hypertension, [...] Morbid (severe) obesity due to excess calories ([facility]/HCC) Body mass index (BMI) 38.0-38.9, adult Obesity [...] Disorders of magnesium metabolism Essential hypertension, benign ([facility]/HCC)- Primary Essential hypertension, benign Morbid (severe) obesity due to excess calories ([facility]/HCC) Gastro-esophageal reflux disease without esophagitis Body mass [...] type (CMS/HCC) Fibromyalgia Unspecified myalgia and myositis Cellulitis of left lower extremity- Primary Essential hypertension, benign (CMS/HCC) Essential hypertension, benign Morbid (severe) obesity due to excess calories (CMS/HCC) Hypomagnesemia Disorders of magnesium metabolism Cigarette nicotine dependence without complication MARITZA (acute kidney injury) (CMS/HCC) Left leg swelling documented in this encounter [facility]* Diagnosis Essential hypertension, benign- Primary Essential hypertension, benign Screening for prostate cancer Special screening for malignant neoplasm of prostate Hypomagnesemia Disorders of magnesium metabolism Mixed hyperlipidemia Mixed hyperlipidemia Hyperglycemia Other abnormal glucose Hypothyroidism, unspecified type Restless legs Restless legs syndrome (RLS) Fibromyalgia Unspecified myalgia and myositis Pulmonary hypertension (HCC) Other chronic pulmonary heart diseases Restless legs syndrome Restless legs syndrome (RLS) Gastroesophageal reflux disease, unspecified whether esophagitis present Atopic dermatitis, unspecified type Gastroesophageal reflux disease, unspecified whether esophagitis present- Primary Essential hypertension, benign Essential hypertension, benign Hypothyroidism, unspecified type Mixed hyperlipidemia Mixed hyperlipidemia Hypomagnesemia Disorders of magnesium metabolism Obesity (BMI 30-39.9) Hypomagnesemia- Primary Disorders of magnesium metabolism Fibromyalgia Unspecified myalgia and myositis Atopic dermatitis, unspecified type Gastroesophageal reflux disease, unspecified whether esophagitis present Obesity (BMI 30-39.9) Essential hypertension, benign Essential hypertension, benign Essential (primary) hypertension- Primary Unspecified essential hypertension Morbid (severe) obesity due to excess calories (CMS-HCC) Body mass index (BMI) 38.0-38.9, adult Obesity (BMI 30-39.9) Cigarette nicotine dependence without complication Gastroesophageal reflux disease, unspecified whether esophagitis present Hypomagnesemia Disorders of magnesium metabolism Pre-operative clearance- Primary Unspecified pre-operative examination Hypomagnesemia Disorders of magnesium metabolism Restless legs syndrome Restless legs syndrome (RLS) COPD with acute exacerbation (HCC) Chronic bronchitis, unspecified chronic bronchitis type (HCC) Essential hypertension, benign Essential hypertension, benign Gastroesophageal reflux disease, unspecified whether esophagitis present GURVINDER (obstructive sleep apnea) Obstructive sleep apnea (adult) (pediatric) Pulmonary hypertension (HCC) Other chronic pulmonary heart diseases LV dysfunction Left heart failure Essential hypertension, benign- Primary Essential hypertension, benign Hypomagnesemia Disorders of magnesium metabolism Gastroesophageal reflux disease, unspecified whether esophagitis present Obesity (BMI 30-39.9) Hypothyroidism, unspecified type Needs flu shot Need for prophylactic vaccination and inoculation against influenza Hypomagnesemia- Primary Disorders of magnesium metabolism Essential hypertension, benign- Primary Essential hypertension, benign Morbid (severe) obesity due to excess calories (CMS-HCC) Gastro-esophageal reflux disease without esophagitis Body mass index (BMI) 37.0-37.9, adult GURVINDER (obstructive sleep apnea) Obstructive sleep apnea (adult) (pediatric) COPD mixed type (HCC) Pulmonary hypertension (HCC) Other chronic pulmonary heart diseases Hypothyroidism, unspecified type Obesity (BMI 30-39.9) Mixed hyperlipidemia Mixed hyperlipidemia Hypomagnesemia Disorders of magnesium metabolism Marijuana use Pre-diabetes Other abnormal glucose Chronic bronchitis, unspecified chronic bronchitis type (HCC) Essential hypertension, benign- Primary Essential hypertension, benign Chronic kidney disease, stage 3a (CMS-HCC) Gastro-esophageal reflux disease without esophagitis Morbid (severe) obesity due to excess calories (CMS-HCC) Mixed hyperlipidemia Mixed hyperlipidemia Hypomagnesemia Disorders of magnesium metabolism Screening for prostate cancer Special screening for malignant neoplasm of prostate Marijuana use Hypothyroidism, unspecified type Fibromyalgia Unspecified myalgia and myositis Cellulitis of left lower extremity- Primary Essential hypertension, benign Essential hypertension, benign Morbid (severe) obesity due to excess calories (CMS-HCC) Hypomagnesemia Disorders of magnesium metabolism Cigarette nicotine dependence without complication MARITZA (acute kidney injury) Left leg swelling Cellulitis of left lower extremity- Primary Essential hypertension, benign Essential hypertension, benign Left leg swelling Morbid (severe) obesity due to excess calories (CMS-HCC) Chronic bronchitis, unspecified chronic bronchitis type (HCC) Restless legs syndrome Restless legs syndrome (RLS) Atopic dermatitis, unspecified type documented in this encounter [facility]* Diagnosis Essential hypertension, benign- Primary Essential hypertension, benign Screening for prostate cancer Special screening for malignant neoplasm of prostate Hypomagnesemia Disorders of magnesium metabolism Mixed hyperlipidemia Mixed hyperlipidemia Hyperglycemia Other abnormal glucose Hypothyroidism, unspecified type Restless legs Restless legs syndrome (RLS) Fibromyalgia Unspecified myalgia and myositis Pulmonary hypertension (HCC) Other chronic pulmonary heart diseases Restless legs syndrome Restless legs syndrome (RLS) Gastroesophageal reflux disease, unspecified whether esophagitis present Atopic dermatitis, unspecified type Gastroesophageal reflux disease, unspecified whether esophagitis present- Primary Essential hypertension, benign Essential hypertension, benign Hypothyroidism, unspecified type Mixed hyperlipidemia Mixed hyperlipidemia Hypomagnesemia Disorders of magnesium metabolism Obesity (BMI 30-39.9) Hypomagnesemia- Primary Disorders of magnesium metabolism Fibromyalgia Unspecified myalgia and myositis Atopic dermatitis, unspecified type Gastroesophageal reflux disease, unspecified whether esophagitis present Obesity (BMI 30-39.9) Essential hypertension, benign Essential hypertension, benign Essential (primary) hypertension- Primary Unspecified essential hypertension Morbid (severe) obesity due to excess calories (CMS-HCC) Body mass index (BMI) 38.0-38.9, adult Obesity (BMI 30-39.9) Cigarette nicotine dependence without complication Gastroesophageal reflux disease, unspecified whether esophagitis present Hypomagnesemia Disorders of magnesium metabolism Pre-operative clearance- Primary Unspecified pre-operative examination Hypomagnesemia Disorders of magnesium metabolism Restless legs syndrome Restless legs syndrome (RLS) COPD with acute exacerbation (HCC) Chronic bronchitis, unspecified chronic bronchitis type (HCC) Essential hypertension, benign Essential hypertension, benign Gastroesophageal reflux disease, unspecified whether esophagitis present GURVINDER (obstructive sleep apnea) Obstructive sleep apnea (adult) (pediatric) Pulmonary hypertension (HCC) Other chronic pulmonary heart diseases LV dysfunction Left heart failure Essential hypertension, benign- Primary Essential hypertension, benign Hypomagnesemia Disorders of magnesium metabolism Gastroesophageal reflux disease, unspecified whether esophagitis present Obesity (BMI 30-39.9) Hypothyroidism, unspecified type Needs flu shot Need for prophylactic vaccination and inoculation against influenza Hypomagnesemia- Primary Disorders of magnesium metabolism Essential hypertension, benign- Primary Essential hypertension, benign Morbid (severe) obesity due to excess calories (CMS-HCC) Gastro-esophageal reflux disease without esophagitis Body mass index (BMI) 37.0-37.9, adult GURVINDER (obstructive sleep apnea) Obstructive sleep apnea (adult) (pediatric) COPD mixed type (HCC) Pulmonary hypertension (HCC) Other chronic pulmonary heart diseases Hypothyroidism, unspecified type Obesity (BMI 30-39.9) Mixed hyperlipidemia Mixed hyperlipidemia Hypomagnesemia Disorders of magnesium metabolism Marijuana use Pre-diabetes Other abnormal glucose Chronic bronchitis, unspecified chronic bronchitis type (HCC) Essential hypertension, benign- Primary Essential hypertension, benign Chronic kidney disease, stage 3a (CMS-HCC) Gastro-esophageal reflux disease without esophagitis Morbid (severe) obesity due to excess calories (CMS-HCC) Mixed hyperlipidemia Mixed hyperlipidemia Hypomagnesemia Disorders of magnesium metabolism Screening for prostate cancer Special screening for malignant neoplasm of prostate Marijuana use Hypothyroidism, unspecified type Fibromyalgia Unspecified myalgia and myositis Cellulitis of left lower extremity- Primary Essential hypertension, benign Essential hypertension, benign Morbid (severe) obesity due to excess calories (CMS-HCC) Hypomagnesemia Disorders of magnesium metabolism Cigarette nicotine dependence without complication MARITZA (acute kidney injury) Left leg swelling Cellulitis of left lower extremity- Primary Essential hypertension, benign Essential hypertension, benign Left leg swelling Morbid (severe) obesity due to excess calories (CMS-HCC) Chronic bronchitis, unspecified chronic bronchitis type (HCC) Restless legs syndrome Restless legs syndrome (RLS) Atopic dermatitis, unspecified type Atopic dermatitis, unspecified type documented in this encounter [facility]* Diagnosis Essential hypertension, benign- Primary Essential hypertension, benign Screening for prostate cancer Special screening for malignant neoplasm of prostate Hypomagnesemia Disorders of magnesium metabolism Mixed hyperlipidemia Mixed hyperlipidemia Hyperglycemia Other abnormal glucose Hypothyroidism, unspecified type Restless legs Restless legs syndrome (RLS) Fibromyalgia Unspecified myalgia and myositis Pulmonary hypertension (HCC) Other chronic pulmonary heart diseases Restless legs syndrome Restless legs syndrome (RLS) Gastroesophageal reflux disease, unspecified whether esophagitis present Atopic dermatitis, unspecified type Gastroesophageal reflux disease, unspecified whether esophagitis present- Primary Essential hypertension, benign Essential hypertension, benign Hypothyroidism, unspecified type Mixed hyperlipidemia Mixed hyperlipidemia Hypomagnesemia Disorders of magnesium metabolism Obesity (BMI 30-39.9) Hypomagnesemia- Primary Disorders of magnesium metabolism Fibromyalgia Unspecified myalgia and myositis Atopic dermatitis, unspecified type Gastroesophageal reflux disease, unspecified whether esophagitis present Obesity (BMI 30-39.9) Essential hypertension, benign Essential hypertension, benign Essential (primary) hypertension- Primary Unspecified essential hypertension Morbid (severe) obesity due to excess calories (CMS-HCC) Body mass index (BMI) 38.0-38.9, adult Obesity (BMI 30-39.9) Cigarette nicotine dependence without complication Gastroesophageal reflux disease, unspecified whether esophagitis present Hypomagnesemia Disorders of magnesium metabolism Pre-operative clearance- Primary Unspecified pre-operative examination Hypomagnesemia Disorders of magnesium metabolism Restless legs syndrome Restless legs syndrome (RLS) COPD with acute exacerbation (HCC) Chronic bronchitis, unspecified chronic bronchitis type (HCC) Essential hypertension, benign Essential hypertension, benign Gastroesophageal reflux disease, unspecified whether esophagitis present GURVINDER (obstructive sleep apnea) Obstructive sleep apnea (adult) (pediatric) Pulmonary hypertension (HCC) Other chronic pulmonary heart diseases LV dysfunction Left heart failure Essential hypertension, benign- Primary Essential hypertension, benign Hypomagnesemia Disorders of magnesium metabolism Gastroesophageal reflux disease, unspecified whether esophagitis present Obesity (BMI 30-39.9) Hypothyroidism, unspecified type Needs flu shot Need for prophylactic vaccination and inoculation against influenza Hypomagnesemia- Primary Disorders of magnesium metabolism Essential hypertension, benign- Primary Essential hypertension, benign Morbid (severe) obesity due to excess calories (CMS-HCC) Gastro-esophageal reflux disease without esophagitis Body mass index (BMI) 37.0-37.9, adult GURVINDER (obstructive sleep apnea) Obstructive sleep apnea (adult) (pediatric) COPD mixed type (HCC) Pulmonary hypertension (HCC) Other chronic pulmonary heart diseases Hypothyroidism, unspecified type Obesity (BMI 30-39.9) Mixed hyperlipidemia Mixed hyperlipidemia Hypomagnesemia Disorders of magnesium metabolism Marijuana use Pre-diabetes Other abnormal glucose Chronic bronchitis, unspecified chronic bronchitis type (HCC) Essential hypertension, benign- Primary Essential hypertension, benign Chronic kidney disease, stage 3a (CMS-HCC) Gastro-esophageal reflux disease without esophagitis Morbid (severe) obesity due to excess calories ([facility]) Mixed hyperlipidemia Mixed hyperlipidemia Hypomagnesemia Disorders of magnesium metabolism Screening for prostate cancer Special screening for malignant neoplasm of prostate Marijuana use Hypothyroidism, unspecified type Fibromyalgia Unspecified myalgia and myositis Cellulitis of left lower extremity- Primary Essential hypertension, benign Essential hypertension, benign Morbid (severe) obesity due to excess calories (CMS-HCC) Hypomagnesemia Disorders of magnesium metabolism Cigarette nicotine dependence without complication MARITZA (acute kidney injury) Left leg swelling Cellulitis of left lower extremity- Primary Essential hypertension, benign Essential hypertension, benign Left leg swelling Morbid (severe) obesity due to excess calories (CMS-HCC) Chronic bronchitis, unspecified chronic bronchitis type (HCC) Restless legs syndrome Restless legs syndrome (RLS) Atopic dermatitis, unspecified type Hypothyroidism, unspecified type Gastroesophageal reflux disease, unspecified whether esophagitis present Essential hypertension, benign Essential hypertension, benign documented in this encounter [facility]* Diagnosis Essential hypertension, benign- Primary Essential hypertension, benign Screening for prostate cancer Special screening for malignant neoplasm of prostate Hypomagnesemia Disorders of magnesium metabolism Mixed hyperlipidemia Mixed hyperlipidemia Hyperglycemia Other abnormal glucose Hypothyroidism, unspecified type Restless legs Restless legs syndrome (RLS) Fibromyalgia Unspecified myalgia and myositis Pulmonary hypertension (HCC) Other chronic pulmonary heart diseases Restless legs syndrome Restless legs syndrome (RLS) Gastroesophageal reflux disease, unspecified whether esophagitis present Atopic dermatitis, unspecified type Gastroesophageal reflux disease, unspecified whether esophagitis present- Primary Essential hypertension, benign Essential hypertension, benign Hypothyroidism, unspecified type Mixed hyperlipidemia Mixed hyperlipidemia Hypomagnesemia Disorders of magnesium metabolism Obesity (BMI 30-39.9) Hypomagnesemia- Primary Disorders of magnesium metabolism Fibromyalgia Unspecified myalgia and myositis Atopic dermatitis, unspecified type Gastroesophageal reflux disease, unspecified whether esophagitis present Obesity (BMI 30-39.9) Essential hypertension, benign Essential hypertension, benign Essential (primary) hypertension- Primary Unspecified essential hypertension Morbid (severe) obesity due to excess calories ([facility]) Body mass index (BMI) 38.0-38.9, adult Obesity (BMI 30-39.9) Cigarette nicotine dependence without complication Gastroesophageal reflux disease, unspecified whether esophagitis present Hypomagnesemia Disorders of magnesium metabolism Pre-operative clearance- Primary Unspecified pre-operative examination Hypomagnesemia Disorders of magnesium metabolism Restless legs syndrome Restless legs syndrome (RLS) COPD with acute exacerbation (HCC) Chronic bronchitis, unspecified chronic bronchitis type (HCC) Essential hypertension, benign Essential hypertension, benign Gastroesophageal reflux disease, unspecified whether esophagitis present GURVINDER (obstructive sleep apnea) Obstructive sleep apnea (adult) (pediatric) Pulmonary hypertension (HCC) Other chronic pulmonary heart diseases LV dysfunction Left heart failure Essential hypertension, benign- Primary Essential hypertension, benign Hypomagnesemia Disorders of magnesium metabolism Gastroesophageal reflux disease, unspecified whether esophagitis present Obesity (BMI 30-39.9) Hypothyroidism, unspecified type Needs flu shot Need for prophylactic vaccination and inoculation against influenza Hypomagnesemia- Primary Disorders of magnesium metabolism Essential hypertension, benign- Primary Essential hypertension, benign Morbid (severe) obesity due to excess calories ([facility]) Gastro-esophageal reflux disease without esophagitis Body mass index (BMI) 37.0-37.9, adult GURVINDER (obstructive sleep apnea) Obstructive sleep apnea (adult) (pediatric) COPD mixed type (HCC) Pulmonary hypertension (HCC) Other chronic pulmonary heart diseases Hypothyroidism, unspecified type Obesity (BMI 30-39.9) Mixed hyperlipidemia Mixed hyperlipidemia Hypomagnesemia Disorders of magnesium metabolism Marijuana use Pre-diabetes Other abnormal glucose Chronic bronchitis, unspecified chronic bronchitis type (HCC) Essential hypertension, benign- Primary Essential hypertension, benign Chronic kidney disease, stage 3a ([facility]) Gastro-esophageal reflux disease without esophagitis Morbid (severe) obesity due to excess calories ([facility]-HCC) Mixed hyperlipidemia Mixed hyperlipidemia Hypomagnesemia Disorders of magnesium metabolism Screening for prostate cancer Special screening for malignant neoplasm of prostate Marijuana use Hypothyroidism, unspecified type Fibromyalgia Unspecified myalgia and myositis Cellulitis of left lower extremity- Primary Essential hypertension, benign Essential hypertension, benign Morbid (severe) obesity due to excess calories ([facility]) Hypomagnesemia Disorders of magnesium metabolism Cigarette nicotine dependence without complication MARITZA (acute kidney injury) Left leg swelling Cellulitis of left lower extremity- Primary Essential hypertension, benign Essential hypertension, benign Left leg swelling Morbid (severe) obesity due to excess calories ([facility]-HCC) Chronic bronchitis, unspecified chronic bronchitis type (HCC) Restless legs syndrome Restless legs syndrome (RLS) Atopic dermatitis, unspecified type Electrolyte abnormality- Primary Electrolyte and fluid disorders not elsewhere classified documented in this encounter [facility] HealthcareEvaluation note* Diagnosis Chronic venous insufficiency- Primary Unspecified venous (peripheral) insufficiency Chronic deep vein thrombosis (DVT) of popliteal vein of left lower extremity ([facility]-HCC) 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 SystemEvaluation note* Diagnosis Onset Date Resolution Status Admit Date GERD (gastroesophageal reflu x disease) acute April 06, 2025 2:37pm Hypomagnesemia acute April 06, 2025 2:37pm Primary hypertension acute April 06, 2025 2:37pm [facility] Work Phone: Evaluation note* Diagnosis Essential hypertension, benign- Primary Essential hypertension, benign Screening for prostate cancer Special screening for malignant neoplasm of prostate Hypomagnesemia Disorders of magnesium metabolism Mixed hyperlipidemia Mixed hyperlipidemia Hyperglycemia Other abnormal glucose Hypothyroidism, unspecified type Restless legs Restless legs syndrome (RLS) Fibromyalgia Unspecified myalgia and myositis Pulmonary hypertension (HCC) Other chronic pulmonary heart diseases Restless legs syndrome Restless legs syndrome (RLS) Gastroesophageal reflux disease, unspecified whether esophagitis present Atopic dermatitis, unspecified type Gastroesophageal reflux disease, unspecified whether esophagitis present- Primary Essential hypertension, benign Essential hypertension, benign Hypothyroidism, unspecified type Mixed hyperlipidemia Mixed hyperlipidemia Hypomagnesemia Disorders of magnesium metabolism Obesity (BMI 30-39.9) Hypomagnesemia- Primary Disorders of magnesium metabolism Fibromyalgia Unspecified myalgia and myositis Atopic dermatitis, unspecified type Gastroesophageal reflux disease, unspecified whether esophagitis present Obesity (BMI 30-39.9) Essential hypertension, benign Essential hypertension, benign Essential (primary) hypertension- Primary Unspecified essential hypertension Morbid (severe) obesity due to excess calories ([facility]-HCC) Body mass index (BMI) 38.0-38.9, adult Obesity (BMI 30-39.9) Cigarette nicotine dependence without complication Gastroesophageal reflux disease, unspecified whether esophagitis present Hypomagnesemia Disorders of magnesium metabolism Pre-operative clearance- Primary Unspecified pre-operative examination Hypomagnesemia Disorders of magnesium metabolism Restless legs syndrome Restless legs syndrome (RLS) COPD with acute exacerbation (HCC) Chronic bronchitis, unspecified chronic bronchitis type (HCC) Essential hypertension, benign Essential hypertension, benign Gastroesophageal reflux disease, unspecified whether esophagitis present GURVINDER (obstructive sleep apnea) Obstructive sleep apnea (adult) (pediatric) Pulmonary hypertension (HCC) Other chronic pulmonary heart diseases LV dysfunction Left heart failure Essential hypertension, benign- Primary Essential hypertension, benign Hypomagnesemia Disorders of magnesium metabolism Gastroesophageal reflux disease, unspecified whether esophagitis present Obesity (BMI 30-39.9) Hypothyroidism, unspecified type Needs flu shot Need for prophylactic vaccination and inoculation against influenza Hypomagnesemia- Primary Disorders of magnesium metabolism Essential hypertension, benign- Primary Essential hypertension, benign Morbid (severe) obesity due to excess calories ([facility]) Gastro-esophageal reflux disease without esophagitis Body mass index (BMI) 37.0-37.9, adult GURVINDER (obstructive sleep apnea) Obstructive sleep apnea (adult) (pediatric) COPD mixed type (HCC) Pulmonary hypertension (HCC) Other chronic pulmonary heart diseases Hypothyroidism, unspecified type Obesity (BMI 30-39.9) Mixed hyperlipidemia Mixed hyperlipidemia Hypomagnesemia Disorders of magnesium metabolism Marijuana use Pre-diabetes Other abnormal glucose Chronic bronchitis, unspecified chronic bronchitis type (HCC) Essential hypertension, benign- Primary Essential hypertension, benign Chronic kidney disease, stage 3a (CMS-HCC) Gastro-esophageal reflux disease without esophagitis Morbid (severe) obesity due to excess calories (CMS-HCC) Mixed hyperlipidemia Mixed hyperlipidemia Hypomagnesemia Disorders of magnesium metabolism Screening for prostate cancer Special screening for malignant neoplasm of prostate Marijuana use Hypothyroidism, unspecified type Fibromyalgia Unspecified myalgia and myositis Cellulitis of left lower extremity- Primary Essential hypertension, benign Essential hypertension, benign Morbid (severe) obesity due to excess calories (CMS-HCC) Hypomagnesemia Disorders of magnesium metabolism Cigarette nicotine dependence without complication MARITZA (acute kidney injury) Left leg swelling Cellulitis of left lower extremity- Primary Essential hypertension, benign Essential hypertension, benign Left leg swelling Morbid (severe) obesity due to excess calories (CMS-HCC) Chronic bronchitis, unspecified chronic bronchitis type (HCC) Restless legs syndrome Restless legs syndrome (RLS) Atopic dermatitis, unspecified type Essential hypertension, benign- Primary Essential hypertension, benign Morbid (severe) obesity due to excess calories (CMS-HCC) Gastro-esophageal reflux disease without esophagitis 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) Fibromyalgia Unspecified myalgia and myositis Bronchitis Bronchitis, not specified as acute or chronic Acute gout of left hand, unspecified cause documented in this encounter [facility] HealthcareHistory and physical note Author James Elaine [facility] July 09, 2024 1:12pm Note Date/Time July 09, 2024 1 :12pm [facility] [address] [place] [address] Gastroenterology H&P Signed Patient: Abram Guillaume MR#: [id number] 4 : 1965 Acct:[id number] Age/Sex: 58 / M Adm Date: 4 Loc: Room: Type: [facility] Attending Dr: James Elaine MD Copies [...] James Elaine MD> 07/09/24 1312 [facility] Work Phone: Hospital Discharge instructions [...] -Continue omeprazole 40 mg daily -Office number [phone]. [facility] Work Phone: InstructionsNot on filedocumented in this encounter [facility] (narrative)No reason for referral information availableUc Health Work Phone: Summary Purpose Family History Relationship [...] Complaint RENAL 3 MONTH FU Referred by Ppeper Sexton: GERD GERD Gastroesophageal reflux disease (GERD) [...] Primary hypertension December 02, 2024 1: 43pm Chief Complaint Admit Date renal 4 month f/u April 06, 2025 2:37 pm Reason for Visit Admit Date GERD (gastroesophageal reflux disease) J alana 2024 2:37pm Hypomagnesemia April 06, 2025 2:37 pm Primary hypertension April 06, 2025 2:3 7pm Reason for Referral Specialty Diagnoses / Procedures Referred By Kira ybarra Referred To Contact Diagnoses Preop examination Hypertension, unspecified type Procedures ECG 12 lead Rupert Bo DO [address] [place] [address] Referral ID Status Reason Start Date Expiration Date V isits Requested Visits Authorized [id number] Pending Review 04/23/2024 04/23/2025 1 1 Additional Source Comments (unrecognized sect ion and content) No Status Records FoundNo Status Records FoundNo Status Records FoundNo Status Records FoundNo Status Records FoundNo Status Records Found INFORMATION SOURCE (unrecogn ized section and content) DATE CREATED AUTHOR 05/18/2022 [facility] DATE CREATED AUTHOR AUTHOR'S ORGANIZ ATION 07/22/2022 [facility] DATE CREATED AUTHOR AUTHOR'S ORGANIZ ATION 05/28/2024 [facility] DATE CREATED AUTHOR AUTHOR'S ORGANIZ ATION 10/16/2024 [facility] DATE CREATED AUTHOR AUTHOR'S ORGANIZ ATION 03/09/2025 [facility] EPIC DATE CREATED AUTHOR AUTHOR'S ORGANIZ ATION 04/05/2025 [facility] Care Teams (unrecognized sec tion and content) Team Status: Active Member Role Status Dates Pepper Sexton Primary Care Provider Active Team Status: Active Member Role Status Dates Pepper Sexton Primary Care Provider Active Sta rt: March 17, 2025 Tang Hamilton MD Attending Provider Active Star t: March 17, 2025 Team Status: Inactive Member Role Status Dates Pepper Sexton Primary Care Provider Active Sta rt: April 06, 2025 End: April 06, 2025 Tang Hamilton MD Attending Provider Active Star t: April 06, 2025 End: April 06, 2025 Team Status: Inactive Member Role Status Dates Tang Hamilton MD Attending Provider Active Star t: March 19, 2024 End: March 19, 2024 Pepper Sexton Primary Care Provider Active Sta rt: March 19, 2024 End: March 19, 2024 Team Status: Inactive Member Role Status Dates Pepper Sexton Primary Care Provider Active Sta rt: June 23, 2024 End: June 23, 2024 Tang Hamilton MD Attending Provider Active Star t: June 23, 2024 End: June 23, 2024 Insulation Board Coater Operator Relationship Specialty Start Date End Date Anastacio Hinojosa MD [address] [place] [address] PCP - General Family Medicine 11/26/23 Pepper Sexton NP [address] [place] [address] [facility] 04/23/[facility] Pepper Sexton NP [address] [place] [address] Nurse Practitioner Family Medicine 11/26/23 Team Status: Inactive Member Role Status Dates Pepper Sexton Primary Care Provider Active Sta rt: June 24, 2024 End: June 24, 2024 Dav Swanson APRN Attending Provider Active Start: June 24, 2024 End: June 24, 2024 Insulation Board Coater Operator Relationship Specialty Start Date End Date Anastacio Hinojosa MD [address] [place] [address] PCP - General Family Medicine 11/26/23 Pepper Sexton NP [address] [place] [address] PCP - [facility] 04/23/24 Pepper Sexton NP [address] [place] [address] Nurse Practitioner Family Medicine 11/26/23 Insulation Board Coater Operator Relationship Specialty Start Date End Date Anastacio Hinojosa MD [address] [place] [address] PCP - General Family Medicine 11/26/23 Pepper Sexton NP [address] [place] [address] PCP - [facility] 04/23/24 Pepper Sexton NP [address] [place] [address] Nurse Practitioner Family Medicine 11/26/23 Insulation Board Coater Operator Relationship Specialty Start Date End Date Anastacio Hinojosa MD [address] [place] [address] PCP - General Family Medicine 11/26/23 Pepper Sexton NP [address] [place] [address] PCP - [facility] 04/23/24 Pepper Sexton NP [address] [place] [address] Nurse Practitioner Family Medicine 11/26/23 Insulation Board Coater Operator Relationship Specialty Start Date End Date Anastacio Hinojosa MD [address] [place] [address] PCP - General Family Medicine 11/26/23 Pepper Sexton NP [address] [place] [address] PCP - [facility] 04/23/24 Pepper Sexton NP [address] [place] [address] Nurse Practitioner Family Medicine 11/26/23 Insulation Board Coater Operator Relationship Specialty Start Date End Date Anastacio Hinojosa MD [address] [place] [address] PCP - General Family Medicine 11/26/23 Pepper Sexton NP [address] [place] [address] PCP - [facility] 04/23/24 Pepper Sexton NP [address] [place] [address] Nurse Practitioner Family Medicine 11/26/23 Team Status: [...] Other Provider Active Start: July 09, 2024 Insulation Board Coater Operator Relationship Specialty Start Date End Date Anastacio Hinojosa MD [address] [place] [address] PCP - General Family Medicine 11/26/23 Pepper Sexton NP [address] [place] [address] PCP - [facility] [employer] 04/23/24 Pepper Sexton NP [address] [place] [address] Nurse Practitioner Family Medicine 11/26/23 Insulation Board Coater Operator Relationship Specialty Start Date End Date Anastacio Hinojosa MD [address] [place] [address] PCP - General Family Medicine 11/26/23 Pepper Sexton NP [address] [place] [address] PCP - [facility] 04/23/24 Pepper Sexton NP [address] [place] [address] Nurse Practitioner Family Medicine 11/26/23 Insulation Board Coater Operator Relationship Specialty Start Date End Date Anastacio Hinojosa MD [address] [place] [address] PCP - General Family Medicine 11/26/23 Pepper Sexton NP [address] [place] [address] PCP - [facility] 04/23/24 Pepper Sexton NP [address] [place] [address] Nurse Practitioner Family Medicine 11/26/23 Insulation Board Coater Operator Relationship Specialty Start Date End Date Anastacio Hinojosa MD [address] [place] [address] PCP - General Family Medicine 11/26/23 Pepper Sexton NP [address] [place] [address] Nurse Practitioner Family Medicine 11/26/23 Insulation Board Coater Operator Relationship Specialty Start Date End Date Anastacio Hinojosa MD [address] [place] [address] PCP - General Family Medicine 11/26/23 Pepper Sexton NP [address] [place] [address] PCP - [facility] 04/23/24 Pepper Sexton NP [address] [place] [address] Nurse Practitioner Family Medicine 11/26/23 Insulation Board Coater Operator Relationship Specialty Start Date End Date Anastacio Hinojosa MD [address] [place] [address] PCP - General Family Medicine 11/26/23 Pepper Sexton NP [address] [place] [address] PCP - [facility] 04/23/24 Pepper Sexton NP [address] [place] [address] Nurse Practitioner [facility] Medicine 11/26/23 Team Status: Inactive Member Role [...] Other Provider Active Start: October 06, 2024 Insulation Board Coater Operator Relationship Specialty Start Date End Date Anastacio Hinojosa MD [address] [place] [address] PCP - General Family Medicine 11/26/23 Pepper Sexton NP [address] [place] [address] PCP - [facility] 04/23/24 Pepper Sexton NP [address] [place] [address] Nurse Practitioner Family Medicine 11/26/23 Insulation Board Coater Operator Relationship Specialty Start Date End Date Anastacio Hinojosa MD [address] [place] [address] PCP - General Family Medicine 11/26/23 Pepper Sexton NP [address] [place] [address] PCP - [facility] 04/23/24 Pepper Sexton NP [address] [place] [address] Nurse Practitioner Family Medicine 11/26/23 Insulation Board Coater Operator Relationship Specialty Start Date End Date Anastacio Hinojosa MD [address] [place] [address] PCP - General Family Medicine 11/26/23 Pepper Sexton NP [address] [place] [address] PCP - [facility] 04/23/24 Pepper Sexton NP [address] [place] [address] Nurse Practitioner Family Medicine 11/26/23 Insulation Board Coater Operator Relationship Specialty Start Date End Date Anastacio Hinojosa MD [address] [place] [address] PCP - General Family Medicine 11/26/23 Pepper Sexton NP [address] [place] [address] PCP - [facility] 04/23/24 Pepper Sexton NP [address] [place] [address] Nurse Practitioner Family Medicine 11/26/23 Insulation Board Coater Operator Relationship Specialty Start Date End Date Anastacio Hinojosa MD [address] [place] [address] PCP - General Family Medicine 11/26/23 Pepper Sexton NP [address] [place] [address] PCP - [facility] 04/23/24 Pepper Sexton NP [address] [place] [address] Nurse Practitioner Family Medicine 11/26/23 Insulation Board Coater Operator Relationship Specialty Start Date End Date Anastacio Hinojosa MD [address] [place] [address] PCP - General Family Medicine 11/26/23 Pepper Sexton NP [address] [place] [address] PCP - [facility] [employer] 04/23/24 Pepper Sexton NP [address] [place] [address] Nurse Practitioner Family Medicine 11/26/23 Insulation Board Coater Operator Relationship Specialty Start Date End Date Pepper Sexton, HOSPITAL SUPERINTENDENT-SUPERVISOR M[employer] [address] [place] [address] PCP - General Nurse Practitioner 05/10/22 Team Status: Active Member Role Status Dates Pepper Sexton Primary Care Provider Active Sta rt: November 24, 2024 Tang Hamilton MD Attending Provider Active Star t: November 24, 2024 Team Status: Inactive Member Role Status Dates Pepper Sexton Primary Care Provider Active Sta rt: December 02, 2024 End: December 02, 2024 Tang Hamilton MD Attending Provider Active Star t: December 02, 2024 End: December 02, 2024 Insulation Board Coater Operator Relationship Specialty Start Date End Date Anastacio Hinojosa MD [address] [place] [address] PCP - General Family Medicine 11/26/23 Pepper Sexton NP [address] [place] [address] PCP - [facility] 04/23/24 Pepper Sexton NP [address] [place] [address] Nurse Practitioner Family Medicine 11/26/23 Insulation Board Coater Operator Relationship Specialty Start Date End Date Anastacio Hinojosa MD [address] [place] [address] PCP - General Family Medicine 11/26/23 Pepper Sexton NP [address] [place] [address] PCP - [facility] 04/23/24 Pepper Sexton NP [address] [place] [address] Nurse Practitioner Family Medicine 11/26/23 Insulation Board Coater Operator Relationship Specialty Start Date End Date Anastacio Hinojosa MD [address] [place] [address] PCP - General Family Medicine 11/26/23 Pepper Sexton NP [address] [place] [address] Nurse Practitioner Family Medicine 11/26/23 Insulation Board Coater Operator Relationship Specialty Start Date End Date Anastacio Hinojosa MD [address] [place] [address] PCP - General Family Medicine 11/26/23 Pepper Sexton NP [address] [place] [address] Nurse Practitioner Family Medicine 11/26/23 Insulation Board Coater Operator Relationship Specialty Start Date End Date Anastacio Hinojosa MD [address] [place] [address] PCP - General Family Medicine 11/26/23 Pepper Sexton NP [address] [place] [address] Nurse Practitioner Family Medicine 11/26/23 Insulation Board Coater Operator Relationship Specialty Start Date End Date Anastacio Hinojosa MD [address] [place] [address] PCP - General Family Medicine 11/26/23 Pepper Sexton NP [address] [place] [address] Nurse Practitioner Family Medicine 11/26/23 Insulation Board Coater Operator Relationship Specialty Start Date End Date Anastacio Hinojosa MD [address] [place] [address] PCP - General Family Medicine 11/26/23 Pepper Sexton NP [address] [place] [address] Nurse Practitioner Family Medicine 11/26/23 Insulation Board Coater Operator Relationship Specialty Start Date End Date Anastacio Hinojosa MD [address] [place] [address] PCP - General Family Medicine 11/26/23 Pepper Sexton NP [address] [place] [address] Nurse Practitioner Family Medicine 11/26/23 Insulation Board Coater Operator Relationship Specialty Start Date End Date Anastacio Hinojosa MD [address] [place] [address] PCP - General Family Medicine 11/26/23 Pepper Sexton NP [address] [place] [address] Nurse Practitioner Family Medicine 11/26/23 Insulation Board Coater Operator Relationship Specialty Start Date End Date Anastacio Hinojosa MD [address] [place] [address] PCP - General Family Medicine 11/26/23 Pepper Sexton NP [address] [place] [address] Nurse Practitioner Family Medicine 11/26/23 Insulation Board Coater Operator Relationship Specialty Start Date End Date Anastacio Hinojosa MD [address] [place] [address] PCP - General Family Medicine 11/26/23 Pepper Sexton NP [address] [place] [address] Nurse Practitioner Family Medicine 11/26/23 Insulation Board Coater Operator Relationship Specialty Start Date End Date Pepper Sexton, HOSPITAL SUPERINTENDENT-SUPERVISOR MULTIFOC[employer] PCP - General Nurse Practitioner 05/10/22 Insulation Board Coater Operator Relationship Specialty Start Date End Date Anastacio Hinojosa MD [address] [place] [address] PCP - General Family Medicine 11/26/23 Pepper Sexton NP [address] [place] [address] Nurse Practitioner Family Medicine 11/26/23 Insulation Board Coater Operator Relationship Specialty Start Date End Date Anastacio Hinojosa MD [address] [place] [address] PCP - General Family Medicine 11/26/23 Pepper Sexton NP [address] [place] [address] Nurse Practitioner Family Medicine 11/26/23 Goals (unrecognized section and content) Goals may be documented in a n alternate sectionGoals may be documented in an alternate sectionGoals may be documented in an alternate sectionNot on filedocumented as of this encounterNot on filedocumented as of this encounterGoals may be documented in an alternate section Reason for Visit (unrecogniz ed section and content) Reason Comments Follow-up Reason Onset Date Comments questions 06/09/2024 Reason Comments Med Refill Reason Comments Post-op Reason Comments Hypertension Reason Comments Follow-up 3m Reason Comments cellulitus of leg Reason Comments Cellulitis of left lower extremity Left leg swelling Specialty Diagnoses / Procedures Referred By Contac t Referred To Contact Vascular Surgery Diagnoses Cellulitis of left lower extremity Left leg swelling Procedures HI OFFICE OUTPATIENT VISIT 60-74 MINS HIGH MDM [id number] (SNOMED CT) - AMB REFERRAL TO VASCULAR SURGERY Pepper Sexton, HOSPITAL SUPERINTENDENT-SUPERVISOR M[employer] Phone: tel: fax: Fátima Isabel MD [address], [address] [address] Phone: tel:[phone] fax: Referral ID Status Reason Start Date Expiration Date V isits Requested Visits Authorized [id number] Pending Review 03/08/2025 09/04/2025 1 1 FOR RECORDS PERTAINING TO PATIENTS WHO ARE [...] BE BASED ON THE PRIMARY CLINICAL RECORDS. [facility]. provides no warranty or guarantee of the accuracy or completeness of information in this document.
[2025-04-13 09:03] LABS: Uric Acid 7.2 mg/dL (3.5-7.2)
== END 2025-04-13 08:17 | disposition home or self-care (01) ==
LOC: LAB 08:17
PROVIDERS: PCP Nurse Practitioner; Visit Provider Nurse Practitioner
DX: M10.9 Gout, unspecified (principal)
CPT/HCPCS: 36415; 84550

== ENCOUNTER 2025-04-13 08:19 | Outpatient (OUT) | payer BC, SELFPAY ==
--- OUTSIDE RECORDS SUMMARY | 2025-04-13 08:28 | XMS_ITS | CCD ---
Author Organization [facility] Care Team Providers Care Engineer Rf Deployment Name Role Phone AICHHOLZ, CABLE SYSTEMS INSTALLER PEPPER Primary Care Unavailable AICHHOLZ, CABLE SYSTEMS INSTALLER PEPPER Consulting Unavailable AICHHOLZ, CABLE SYSTEMS INSTALLER PEPPER Attending Unavailable AICHHOLZ, CABLE SYSTEMS INSTALLER PEPPER Admitting Unavailable AICHHOLZ, CABLE SYSTEMS INSTALLER PEPPER Consulting Unavailable AICHHOLZ, CABLE SYSTEMS INSTALLER PEPPER Attending Unavailable AICHHOLZ, CABLE SYSTEMS INSTALLER PEPPER Admitting Unavailable AICHHOLZ, CABLE SYSTEMS INSTALLER PEPPER Primary Care Unavailable AICHHOLZ, CABLE SYSTEMS INSTALLER PEPPER Primary Care Unavailable DR CRIS GAN V Consulting Unavailable AICHHOLZ, CABLE SYSTEMS INSTALLER PEPPER Attending Unavailable AICHHOLZ, CABLE SYSTEMS INSTALLER PEPPER Admitting Unavailable AICHHOLZ, CABLE SYSTEMS INSTALLER PEPPER Consulting Unavailable AICHHOLZ, CABLE SYSTEMS INSTALLER PEPPER Primary Care Unavailable AICHHOLZ, CABLE SYSTEMS INSTALLER PEPPER Consulting Unavailable AICHHOLZ, CABLE SYSTEMS INSTALLER PEPPER Attending Unavailable AICHHOLZ, CABLE SYSTEMS INSTALLER PEPPER Admitting Unavailable AICHHOLZ, CABLE SYSTEMS INSTALLER PEPPER Primary Care Unavailable AICHHOLZ, CABLE SYSTEMS INSTALLER PEPPER Consulting Unavailable AICHHOLZ, CABLE SYSTEMS INSTALLER PEPPER Attending Unavailable AICHHOLZ, CABLE SYSTEMS INSTALLER PEPPER Admitting Unavailable AICHHOLZ, PEPPER J Referring [...] Ashish CARTAGENA, Anastacio Primary Care Provider Aichholz TEST RACK OPERATOR, Pepper Unavailable Aichholz TEST RACK OPERATOR, Pepper Unavailable Aichholz, Pepper J Primary Care Provider MD [place] Imrosalie Attending Provider [phone] Pepper Sexton Primary Care Provider [phone] [place] CARTAGENA, James Attending Provider Pepper Sexton Primary Care Unavailable Asaad, Imad Attending Unavailable Asaad, Imad Admitting Unavailable Asaad, Imad Admitting Unavailable Pepper Sexton Primary Care Unavailable Asaad, Imad Attending Unavailable Carlie DIE TRY OUT WORKER-Pepper ARANDA Primary Care Provider Pepper Sexton Primary Care Provider [place] CARTAGENA, James Attending Provider PEPPER SEXTON [...] Care Unavailable Pepper Sexton Primary Care Provider [phone] Tang Hamilton MD Attending Provider Medications Current [...] every six hours for pain HYDROcodone-acetami nophen (Rogers) 5-325 MG tablet Indications: Post-operative pain Take 1 tablet by mouth every 6 (six) hours if needed for severe pain for up to 3 days 12 tablet 05/26/2024 05/29/2024 Active [id number] 200 actuat albuterol 0.09 mg/actuat metered dose [...] 06/06/2025 Active take 1 capsule by [facility] in the morning, then take 1 [...] with drug therapy take 4 tablets by [facility] morning levothyroxine (SYNTHROID, LEVOTHROID) [...] PANELon 03-31-2025 Anion gap [Moles/Vol] 13.7 mmol/L [facility] Calcium [Mass/Vol] 7.9 mg/dL Low 8.5 - 10. 1 mg/dL [facility] Chloride [Moles/Vol] 107 mmol/L 98 - 10 7 mmol/L [facility] CO2 [Moles/Vol] 28.8 mmol/L 21.0 - 32.0 mmol/L [facility] Creatinine [Mass/Vol] 1.04 mg/dL 0.70 - 1.30 mg/dL [facility] GFR/1.73 sq M.predicted CKD-EPI (S/P/Bld) [Vol rate/Area] >60 >=60 mL/min/1.73m 2 [facility] Glucose [Mass/Vol] 130 mg/dL High 74 - 106 mg/dL [facility] Interpretation and review of laboratory results Abnormal [facility] Potassium [Moles/Vol] 3.5 mmol/L 3.5 - 5.1 mmol/L [facility] Sodium [Moles/Vol] 146 mmol/L High 136 - 145 mmol/L [facility] TBH EGFR-NON AF CENTRAL AFRICAN >60 >=60 mL/min/1.73m 2 [facility] Urea nitrogen [Mass/Vol] 15 mg/dL 7.0 - 18.0 mg/dL [facility] Urea nitrogen/Creatinine [Mass ratio] 14.4 mg/mg [facility] ALL CBC WITH AUTO DIFFon BASOPHILS ABSOLUTE AUTO 0.1 [facility] Basophils/100 WBC (Bld) 0.7 % 0.2 - 2.0 % [facility] Eosinophils/100 WBC (Bld) 9.5 % High 0.9 - 7.0 % [facility] Erythrocyte distribution width (RBC) [Ratio] 15 % 11.0 - 15.0 % [facility] Hematocrit (Bld) [Volume fraction] 38.3 % Low 42.0 - 54.0 % [facility] Hemoglobin (Bld) [Mass/Vol] 12.5 g/dL Low 14.0 - 18.0 g/dL [facility] IMMATURE GRANULOCYTES ABS AUTO 0.03 [facility] Immature granulocytes/100 WBC (Bld) 0.3 % 0.0 - 0.5 % [facility] Interpretation and review of laboratory results Abnormal [facility] LYMPHOCYTES ABSOLUTE AUTO 1.9 [facility] Lymphocytes/100 WBC (Bld) 20.4 % Low 20.5 - 60.0 % [facility] MCH (RBC) [Entitic mass] 31.8 pg 25.9 - 34.0 pg [facility] MCHC (RBC) [Mass/Vol] 32.6 g/dL 29.9 - 35.2 g/dL [facility] MCV (RBC) [Entitic vol] 97.5 fL High 80.0 - 94.0 fL [facility] MONOCYTES ABSOLUTE AUTO 0.5 [facility] Monocytes/100 WBC (Bld) 5.2 % 1.7 - 12.0 % [facility] NEUTROPHILS ABSOLUTE AUTO 5.8 [facility] Neutrophils/100 WBC (Bld) 63.9 % 43.0 - 75.0 % [facility] Platelet mean volume (Bld) [Entitic vol] 9.8 fL 9.5 - 13.5 fL [facility] TBH EO # 0.9 High [facility] TB PLT 277 [facility] RBC 3.93 Low [facility] WBC 9.1 [facility] Laboratory - Chemistry and C hemistry - challengeOrdered By: Tang Hamilton on 03-17-2025 Magnesium [Mass/Vol] 0.2 mg/dL Critically low 1.8-2.4 [facility] Comment on above: RESULTS CALLED TO TO JAVI GIBSON LPN No Panel InformationOrdered By: Tang Hamilton on 03-17-2025 Phosphorus Level 2.7 mg/dL 2.6-4.7 [facility] ALL CBC WITH AUTO DIFFon BASOPHILS ABSOLUTE AUTO 0.1 [facility] Basophils/100 WBC (Bld) 0.8 % 0.2 - 2.0 % [facility] Eosinophils/100 WBC (Bld) 6.2 % 0.9 - 7.0 % [facility] Erythrocyte distribution width (RBC) [Ratio] 13.7 % 11.0 - 15.0 % [facility] Hematocrit (Bld) [Volume fraction] 42 % 42.0 - 54.0 % [facility] Hemoglobin (Bld) [Mass/Vol] 13.6 g/dL Low 14.0 - 18.0 g/dL [facility] IMMATURE GRANULOCYTES ABS AUTO 0.03 [facility] Immature granulocytes/100 WBC (Bld) 0.3 % 0.0 - 0.5 % [facility] Interpretation and review of laboratory results Abnormal [facility] LYMPHOCYTES ABSOLUTE AUTO 1.8 [facility] Lymphocytes/100 WBC (Bld) 21 % 20.5 - 60.0 % [facility] MCH (RBC) [Entitic mass] 31.1 pg 25.9 - 34.0 pg [facility] MCHC (RBC) [Mass/Vol] 32.4 g/dL 29.9 - 35.2 g/dL [facility] MCV (RBC) [Entitic vol] 95.9 fL High 80.0 - 94.0 fL [facility] MONOCYTES ABSOLUTE AUTO 0.5 [facility] Monocytes/100 WBC (Bld) 6.1 % 1.7 - 12.0 % [facility] NEUTROPHILS ABSOLUTE AUTO 5.8 [facility] Neutrophils/100 WBC (Bld) 65.6 % 43.0 - 75.0 % [facility] Platelet mean volume (Bld) [Entitic vol] 9.6 fL 9.5 - 13.5 fL [facility] EO # 0.5 [facility] PLT 306 [facility] RBC 4.38 Low [facility] WBC 8.8 [facility] ALL MAGNESIUMon 11-24-2024 Interpretation and review of laboratory results Abnormal [facility] Magnesium [Mass/Vol] 1.1 mg/dL Low 1.8 - 2 .4 mg/dL [facility] Laboratory - Chemistry and C hemistry - challengeon 11-24-2024 Magnesium [Mass/Vol] 1.1 mg/dL Low 1.8-2.4 [facility] ALL MAGNESIUMon 11-05-2024 Interpretation and review of laboratory results Abnormal [facility] Magnesium [Mass/Vol] 0.7 mg/dL Critically low 1.8 - 2.4 mg/dL [facility] Comment on above: RESULTS CALLED TO EZEQUIEL BOOTH MA AT OFFICE BY Violeta Gold at 1056 [facility] ALL MAGNESIUMon 10-07-2024 Interpretation and review of laboratory results Abnormal [facility] Magnesium [Mass/Vol] 0.8 mg/dL Critically low 1.8 - 2.4 mg/dL [facility] Comment on above: RESULTS CALLED TO [facility] THYROID STIM HORMONEon 0 10-07-2024 TSH Qn 2.054 m[IU]/L [facility] HbA1c (Bld) [Mass fraction]o n 10-07-2024 Interpretation and review of laboratory results Normal [facility] Laboratory - Hematology and Cell countson 10-07-2024 HbA1c (Bld) [Mass fraction] 5.60 % [facility] No Panel Informationon 10-07 [facility] Amphetamine Screen Ql (U)Ord ered By: James Elaine on 10-06-2024 Amphetamines Ql (U) Amphetamines screen Negativ e [facility] Barbiturates [Presence] in U rine by Screen methodOrdered By: James Elaine on 10-06-2024 Barbiturates Screen Ql (U) Barbiturates [Presence] in Urine by Screen method Negative [facility] Benzodiazepines Screen Ql (U )Ordered By: James Elaine on 10-06-2024 Benzodiazepines Ql (U) Benzodiazepines [Presence] in Urine by Screen method Negative [facility] Benzoylecgonine [Presence] i n Urine by Screen methodOrdered By: rosalie Elaine on 10-06-2024 Benzoylecgonine Screen Ql (U) Benzoylecgonine [Presence] in Urine by Screen method Negative [facility] Cannabinoids [Presence] in U rine by Screen methodOrdered By: James Elaine on 10-06-2024 Cannabinoids Screen Ql (U) Cannabinoids [Presence] in Urine by Screen method High Negative [facility] Comment on above: These are unconfirme d results and should not be used for legal purposes. Drug Cut-Off Concentration: AMPH 1000 ng/mL MAX 200 ng/mL JUHI 200 ng/mL COCM 300 ng/mL OP 300 ng/mL PCP 25 ng/mL THC 20 ng/mL Drug Screen,Urineon 10-06-19 Amphetamine Screen,Urine Negative Normal Negative [facility] Comment on above: Performed By: #### U RDS #### [address] Barbiturate Screen,Urine Negative Normal Negative [facility] Comment on above: Performed By: #### U RDS #### [place] [address] [place] Benzodiazepines Screen,Urine Negative Normal Negative [facility] Comment on above: Performed By: #### U RDS #### [place] [address] [place] Cannabinoid Screen,Urine Positive High Negative [facility] Comment on above: Result Comment: Thes e are unconfirmed results and should not be used for legal purposes. Drug Cut-Off Concentration: AMPH 1000 ng/mL MAX 200 ng/mL JUHI 200 ng/mL COCM 300 ng/mL OP 300 ng/mL PCP 25 ng/mL THC 20 ng/mL PERFORMED BY: [place] [address] PATHOLOGIST [employer] WE[employer] DEVELOPER ROBERT GRIMES M.D. Performed By: #### U RDS #### [facility] [address] Cocaine Screen,Urine Negative Normal Negative [facility] Comment on above: Performed By: #### U RDS #### [facility] [address] Opiate Screen,Urine Negative Normal Negative [facility] Comment on above: Performed By: #### U RDS #### [address] Phencyclidine Screen,Urine Negative Normal Negative [facility] Comment on above: Performed By: #### U RDS #### [address] Luciano 10-06-2024 L Specimen: [id number] Received: 10/06/24 Status: SAHIL Ruiz Num: [id number] Spec Type: Surgical Subm Dr: James Elaine MD Tissues: A Esophagus Biopsy (ESOPHAGUS BX R/O BARRETTS) Procedures: HE/2, Gross/Micro L4 Age/ Patient Sex Location Account Attending Physician Abram Guillaume 58/M [id number] James Elaine MD SPEC NUM: [id number] RECD: 10/06/24 STATUS: SAHIL RUIZ NUM: [id number] PHILLIP: 10/06/[address] [facility] [address]: James Elaine MD ENTERED: 10/06/[address] [facility] [address]: SPEC TYPE: Surgical DEPT: S ENTERED BY: [id number] RECV BY: [id number] ORDERED: HE/2, Gross/Micro L4 ORDERED: HE/2, Gross/Micro [...] [id number] Received: 10/06/24 Status: SAHIL Ruiz Num: [id number] Spec Type: Surgical Subm Dr: James Elaine MD Tissues: A Esophagus Biopsy (ESOPHAGUS BX R/O BARRETTS) Procedures: Twila MARIEE/Matt L4 Patient: Abram Guillaume [id number] (Continued) Specimen: [id number] Received: 10/06/24 (Continued) Signed (signature on file) Sandro Baird MD 10/07/24 1009 Specimen: [id number] Received: 10/06/24 Status: SAHIL Ruiz Num: [id number] Spec Type: Surgical Subm Dr: James Elaine MD Tissues: A Esophagus Biopsy (ESOPHAGUS BX R/O BARRETTS) Procedures: Twila MARIEE/Matt L4 Patient: Abram Guillaume [id number] (Continued) Specimen: S2 Received: 10/06/24 (Continued) CPT Codes 53908 Specimen: S2 Received: 10/06/24 Status: SAHIL Ruiz Num: [id number] Spec Type: Surgical Subm Dr: James Elaine MD Tissues: A Esophagus Biopsy (ESOPHAGUS BX R/O BARRETTS) Procedures: HE/2, Gross/Micro L4 Patient: Abram Guillaume [id number] (Continued) Signed (signature on file) Sandro Baird MD 10/07/24 1009 Normal [facility] Opiates [Presence] in Urine by Screen methodOrdered By: James Elaine on 10-06-2024 Opiates Screen Ql (U) Opiates [Presence] in Urine by Screen method Negative [facility] Phencyclidine Screen Ql (U)O rdered By: James Elaine on 10-06-2024 Phencyclidine Ql (U) Phencyclidine [Presence] in Urine by Screen method Negative [facility] ALL BASIC METABOLIC PANELon 09-28-2024 Anion gap [Moles/Vol] 14.1 mmol/L [facility] Calcium [Mass/Vol] 8.3 mg/dL Low 8.5 [...] 143 mmol/L 136 - 145 mmol/L [facility] TBH EGFR-NON AF CENTRAL AFRICAN 45 Low >=60 mL/min/1.73m 2 [facility] Urea nitrogen [Mass/Vol] 17 mg/dL 7.0 - 18.0 mg/dL [facility] Urea nitrogen/Creatinine [Mass ratio] 10.6 mg/mg [facility] ALL MAGNESIUMon 09-28-2024 Magnesium [Mass/Vol] 0.8 mg/dL Critically low 1.8 - 2.4 mg/dL [facility] Comment on above: RESULTS CALLED TO ELIZABETH SEXTON NP No Panel Informationon 09-28 Interpretation and review of laboratory results Abnormal [facility] Amphetamine Screen Ql (U)Ord ered By: ad Asaad on 07-09-2024 Amphetamines Ql (U) Amphetamines screen Negativ e [facility] Amphetamines Ql (U) Negative Negative [facility] Barbiturates [Presence] in U rine by Screen methodOrdered By: Imad Asaad on 07-09-2024 Barbiturates Screen Ql (U) Negative Negative [facility] Barbiturates Screen Ql (U) Barbiturates [Presence] in Urine by Screen method Negative [facility] Benzodiazepines Screen Ql (U )Ordered By: Imad Asaad on 07-09-2024 Benzodiazepines Ql (U) Negative Negative [facility] Benzodiazepines Ql (U) Benzodiazepines [Presence] in Urine by Screen method Negative [facility] Benzoylecgonine [Presence] i n Urine by Screen methodOrdered By: Imad Asaad on 07-09-2024 Benzoylecgonine Screen Ql (U) Negative Negative [facility] Benzoylecgonine Screen Ql (U) Benzoylecgonine [Presence] in Urine by Screen method Negative [facility] Cannabinoids [Presence] in U rine by Screen methodOrdered By: Imad Asaad on 07-09-2024 Cannabinoids Screen Ql (U) Negative Negative [facility] Comment on above: These are unconfirme d results and should not be used for legal purposes. Drug Cut-Off Concentration: AMPH 1000 ng/mL MAX 200 ng/mL JUHI 200 ng/mL COCM 300 ng/mL OP 300 ng/mL PCP 25 ng/mL THC 20 ng/mL Cannabinoids Screen Ql (U) Cannabinoids [Presence] in Urine by Screen method Negative [facility] Comment on above: These are unconfirme d results and should not be used for legal purposes. Drug Cut-Off Concentration: AMPH 1000 ng/mL MAX 200 ng/mL JUHI 200 ng/mL COCM 300 ng/mL OP 300 ng/mL PCP 25 ng/mL THC 20 ng/mL Drug Screen,Urineon 07-09-20 Amphetamine Screen,Urine Negative Normal Negative [facility] Comment on above: Performed By: #### U RDS #### [address] Barbiturate Screen,Urine Negative Normal Negative [facility] Comment on above: Performed By: #### U RDS #### [address] Benzodiazepines Screen,Urine Negative Normal Negative [facility] Comment on above: Performed By: #### U RDS #### [address] Cannabinoid Screen,Urine Negative Normal Negative [facility] Comment on above: Result Comment: Thes e are unconfirmed results and should not be used for legal purposes. Drug Cut-Off Concentration: AMPH 1000 ng/mL MAX 200 ng/mL JUHI 200 ng/mL COCM 300 ng/mL OP 300 ng/mL PCP 25 ng/mL THC 20 ng/mL PERFORMED BY: [place] [address] PATHOLOGIST [employer] WE[employer] DEVELOPER ZUHAIR KAUR M.D. Performed By: #### U RDS #### [address] Cocaine Screen,Urine Negative Normal Negative [facility] Comment on above: Performed By: #### U RDS #### [place] [address] [place] Opiate Screen,Urine Negative Normal Negative [facility] Comment on above: Performed By: #### U RDS #### [address] Phencyclidine Screen,Urine Negative Normal Negative [facility] Comment on above: Performed By: #### U RDS #### [facility] [address] No Panel InformationOrdered By: Imrosalie Elaine on 07-09-2024 Miscellaneous Pathology Test See comment [facility] Comment on above: See report. Scanned copy available in EMR. Opiates [Presence] in Urine by Screen methodOrdered By: Imad Asaad on 07-09-2024 Opiates Screen Ql (U) Negative Negative [facility] Opiates Screen Ql (U) Opiates [Presence] in Urine by Screen method Negative [facility] Pathology Request for Lab Co rpon 07-09-2024 Pathology Request for Lab Itzel Normal [facility] Comment on above: Order Comment: PATHO LOGY GI SPECIMEN Result Comment: See report. Scanned copy available in EMR. PERFORMED BY: [place] [address] PATHOLOGIST [employer] WEB DEVELOPER ZUHAIR KAUR M.D. Performed By: #### P ATH TO [facility] #### [facility] [address] Phencyclidine Screen Ql (U)O rdered By: Imrosalie Elaine on 07-09-2024 Phencyclidine Ql (U) Negative Negative [facility] Phencyclidine Ql (U) Phencyclidine [Presence] in Urine by Screen method Negative [facility] ALL MAGNESIUMon 06-23-2024 Magnesium [Mass/Vol] 1.5 mg/dL Low 1.8 - 2 .4 mg/dL [facility] ALL RENAL FUNCTION PANELon 1 Albumin [Mass/Vol] 3.3 g/dL Low 3.4 - 5.0 g/dL [facility] Anion gap [Moles/Vol] 12.6 mmol/L [facility] Calcium [Mass/Vol] 8.7 mg/dL 8.5 - 10. 1 mg/dL [facility] Chloride [Moles/Vol] 104 mmol/L 98 - 10 7 mmol/L [facility] CO2 [Moles/Vol] 26.1 mmol/L 21.0 - 32.0 mmol/L [facility] Creatinine [Mass/Vol] 1.72 mg/dL High 0.70 - 1.30 mg/dL [facility] GFR/1.73 sq M.predicted CKD-EPI (S/P/Bld) [Vol rate/Area] 50 Low 60 - PINF [facility] Glucose [Mass/Vol] 114 mg/dL High 74 - 106 mg/dL [facility] Phosphate [Mass/Vol] 3.2 mg/dL 2.6 - 4 .7 mg/dL [facility] Potassium [Moles/Vol] 4.7 mmol/L 3.5 - 5.1 mmol/L [facility] Sodium [Moles/Vol] 138 mmol/L 136 - 145 mmol/L [facility] EGFR-NON AF CENTRAL AFRICAN 41 Low 60 - PINF [facility] Urea nitrogen [Mass/Vol] 30.0 mg/dL High 7.0 - 18.0 mg/dL [facility] Urea nitrogen/Creatinine [Mass ratio] 17.4 mg/mg [facility] ALL URIC ACIDon 06-23-2024 Urate [Mass/Vol] 8.0 mg/dL High 3.5 - 7.2 mg/dL [facility] Estimated glomerular filtrat ion rate (GFR) non- Americanon 06-23-2024 GFR/1.73 sq M.predicted among non-blacks MDRD (S/P/Bld) [Vol rate/Area] 41 mL/min/{1.73_m2} Low >=60 [facility] Laboratory - Chemistry and C hemistry - challengeon 06-23-2024 Albumin [Mass/Vol] 3.3 g/dL Low 3.4-5.0 [facility] Calcium [Mass/Vol] 8.7 mg/dL 8.5-10.1 [facility] Chloride [Moles/Vol] 104 mmol/L 98-107 [facility] CO2 [Moles/Vol] 26.1 mmol/L 21.0-32.0 [facility] Creatinine [Mass/Vol] 1.72 mg/dL High 0.70-1.[address] [facility] GFR/1.73 sq M.predicted MDRD (S/P/Bld) [Vol rate/Area] 50 mL/min/{1.73_m2} Low >=60 [facility] Glucose [Mass/Vol] 114 mg/dL High 74-106 [facility] Magnesium [Mass/Vol] 1.5 mg/dL Low 1.8-2.4 [facility] Potassium [Moles/Vol] 4.7 mmol/L 3.5-5.[address] [facility] Sodium [Moles/Vol] 138 mmol/L 136-145 [facility] Urate [Mass/Vol] 8.0 mg/dL High 3.5-7.2 [facility] Urea nitrogen [Mass/Vol] 30.0 mg/dL High 7.0-18.0 [facility] Urea nitrogen/Creatinine [Mass ratio] 17.4 mg/mg [facility] Laboratory - Urinalysison Protein (U) [Mass/Vol] 12.6 mg/dL High <=11.9 [facility] No Panel Informationon 06-23 Urine Random Creatinine 78.13 mg/dL 20.00-300.00 [facility] Interpretation and review of laboratory results Abnormal [facility] Phosphorus Level 3.2 mg/dL 2.6-4.7 [facility] Serum or plasma anion gap de terminationon 06-23-2024 Anion gap [Moles/Vol] 12.6 mmol/L [facility] Urine protein/creatinine rat ioon 06-23-2024 Protein/Creatinine (U) [Ratio] 0.16 [facility] BASIC METABOLIC PANLon 04-27 Anion gap [Moles/Vol] 9 mmol/L Normal 5-15 [facility] Comment on above: Performed By: #### B MP #### [facility] ([id number]) [address], [address] [place] [address] Calcium [Mass/Vol] 9.5 mg/dL Normal 8.5-10.5 [facility] Comment on above: Performed By: #### B MP #### [facility] ([id number]) [address] [place] [address] Chloride [Moles/Vol] 105 mmol/L Normal 98-109 [facility] Comment on above: Performed By: #### B MP #### [facility] ([id number]) [address], [address] [place] [address] CO2 [Moles/Vol] 25 mmol/L Normal 22-32 [facility] Comment on above: Performed By: #### B MP #### [facility] ([id number]) [address], [address] [place] [address] Creatinine [Mass/Vol] 1.60 mg/dL High 0.60-1.30 [facility] Comment on above: Result Comment: METH OD TRACEABLE TO IDMS STANDARD Performed By: #### B MP #### [facility] ([id number]) [address], [address] [place] [address] GFR/1.73 sq M.predicted among non-blacks MDRD (S/P/Bld) [Vol rate/Area] 50 mL/min/{1.73_m2} Low >59 [facility] Comment on above: Result Comment: Reported eGFR is based on the CKD-EPI 2020 equation that does not use a race coefficient. Performed By: #### B MP #### [facility] ([id number]) [address] [place] [address] Glucose [Mass/Vol] 104 mg/dL High 65-99 [facility] Comment on above: Performed By: #### B MP #### [facility] ([id number]) [address] [place] [address] Potassium [Moles/Vol] 4.2 mmol/L Normal 3.5-5.0 [facility] Comment on above: Performed By: #### B MP #### [facility] ([id number]) [address], [address] [place] [address] Sodium [Moles/Vol] 139 mmol/L Normal 134-146 [facility] Comment on above: Performed By: #### B MP #### [facility] ([id number]) [address], [address] [place] [address] Urea nitrogen [Mass/Vol] 31 mg/dL High 5-23 [facility] Comment on above: Performed By: #### B MP #### [facility] ([id number]) [address], [address] [place] [address] Basic Metabolic Panelon 080 Anion gap [Moles/Vol] 9 mmol/L 5 - 15 mmol/L [facility] Calcium [Mass/Vol] 9.5 mg/dL 8.5 - 10. 5 mg/dL [facility] Chloride [Moles/Vol] 105 mmol/L 98 - 10 9 mmol/L [facility] CO2 [Moles/Vol] 25 mmol/L 22 - 32 mmol/L [facility] Creatinine [Mass/Vol] 1.60 mg/dL High 0.60 - 1.30 mg/dL [facility] Comment on above: METHOD TRACEABLE TO IDME STANDARD eGFR (CKD-EPI)non-race dependent 50 Low - PINF [facility] Comment on above: Reported eGFR is based on the CKD-EPI 2020 equation that does not use a race coefficient. Glucose [Mass/Vol] 104 mg/dL High 65 - 99 mg/dL [facility] Interpretation and review of laboratory results Abnormal [facility] Potassium [Moles/Vol] 4.2 mmol/L 3.5 - 5.0 mmol/L [facility] Sodium [Moles/Vol] 139 mmol/L 134 - 146 mmol/L [facility] Urea nitrogen [Mass/Vol] 31 mg/dL High 5 - 23 mg/dL [facility] CBC AUTO DIFFon 07-19-2022 BASO # 0.1 103/ul Normal 0.0-0.1 [facility] Comment on above: Performed By: #### C BC #### [facility] [address] [address] [address] Lavonne Tinoco Basophils/100 WBC (Bld) 0.9 % Normal 0.2-2.0 [facility] Comment on above: Performed By: #### C BC #### [facility] [address] [place] [address] Dr. Lavonne Tinoco EO # 0.4 103/ul Normal 0.0-0.7 [facility] Comment on above: Performed By: #### C BC #### [facility] [address] [place] [address] Dr. Lavonne Tinoco Eosinophils/100 WBC (Bld) 4.5 % Normal 0.9-7.0 [facility] Comment on above: Performed By: #### C BC #### [facility] [address] [place] [address] Dr. Lavonne Tinoco Erythrocyte distribution width (RBC) [Ratio] 13.4 % Normal 11.0-15.0 [facility] Comment on above: Performed By: #### C BC #### [facility] [address] [place] [address] Dr. Lavonne Tinoco Hematocrit (Bld) [Volume fraction] 45.0 % Normal 42.0-54.0 [facility] Comment on above: Performed By: #### C BC #### [facility] [address] [place] [address] Dr. Lavonne Tinoco Hemoglobin (Bld) [Mass/Vol] 15.1 g/dL Normal 14.0-18.0 [facility] Comment on above: Performed By: #### C BC #### [facility] [address] [place] [address] Dr. Lavonne Tinoco IG # 0.04 10e3/ul Critically high 0.00-0.03 [facility] Comment on above: Performed By: #### C BC #### [facility] [address] [place] [address] Dr. Lavonne Tinoco IG % 0.4 % Normal 0.0-0.5 [facility] Comment on above: Performed By: #### C BC #### [facility] [address] [place] [address] Dr. Lavonne Tinoco LYMPH # 2.0 103/ul Normal 1.2-3.8 [facility] Comment on above: Performed By: #### C BC #### [facility] [address] [address] [address] Lavonne Tinoco Lymphocytes/100 WBC (Bld) 21.6 % Normal 20.5-60.0 [facility] Comment on above: Performed By: #### C BC #### [facility] [address] [address] [address] Lavonne Tinoco MANUAL DIFF REQ NO Normal [facility] Comment on above: Performed By: #### C BC #### [facility] [address] [place] [address] Dr. Lavonne Tinoco MCH (RBC) [Entitic mass] 32.7 pg Normal 25.9-34.0 [facility] Comment on above: Performed By: #### C BC #### [facility] [address] [place] [address] Dr. Lavonne Tinoco MCHC (RBC) [Mass/Vol] 33.6 g/dL Normal 29.9-35.2 [facility] Comment on above: Performed By: #### C BC #### [facility] [address] [place] [address] Dr. Lavonne Tinoco MCV (RBC) [Entitic vol] 97.4 fL Critically high 80.0-94.0 [facility] Comment on above: Performed By: #### C BC #### [facility] [address] [place] [address] Dr. Lavonne Tinoco MONO # 0.6 103/ul Normal 0.3-0.8 [facility] Comment on above: Performed By: #### C BC #### [facility] [address] [place] [address] Dr. Lavonne Tinoco Monocytes/100 WBC (Bld) 6.0 % Normal 1.7-12.0 [facility] Comment on above: Performed By: #### C BC #### [facility] [address] [place] [address] Dr. Lavonne Tinoco NEUT # 6.3 103/ul Normal 1.4-6.5 [facility] Comment on above: Performed By: #### C BC #### [facility] [address] [address] [address] Lavonne Tinoco Neutrophils/100 WBC (Bld) 66.6 % Normal 43.0-75.0 [facility] Comment on above: Performed By: #### C BC #### [facility] [address] [address] [address] Lavonne Tinoco Platelet mean volume (Bld) [Entitic vol] 10.7 fL Normal 9.5-13.5 [facility] Comment on above: Performed By: #### C BC #### [facility] [address] [address] [address] Lavonne Tinoco PLT 300 103/ul Normal 150-450 [facility] Comment on above: Performed By: #### C BC #### [facility] [address] [place] [address] Dr. Lavonne Tinoco RBC 4.62 106/ul Critically low 4.70-6.10 [facility] Comment on above: Performed By: #### C BC #### [facility] [address] [address] [address] Lavonne Tinoco WBC 9.4 103/ul Normal 4.0-11.0 [facility] Comment on above: Performed By: #### C BC #### [facility] [address] [place] [address] Dr. Lavonne Tinoco FREE T4on 07-19-2022 Free T4 [Mass/Vol] 0.90 ng/dL Normal 0.76-1.46 [facility] Comment on above: Performed By: #### C MP, TSH, LIPID #### [facility] [address] [place] [address] Dr. Lavonne Tinoco LIPID PROFILEon 07-19-2022 CHOL-HDL RATIO NORM SEE BELOW Normal [facility] Comment on above: Result Comment: 3.3 - 4.4 LOW RISK 4.4 - 7.1 AVERAGE RISK 7.1 - 11.0 MODERATE RISK >11.0 HIGH RISK Performed By: #### C MP, TSH, LIPID #### [facility] [address] [place] [address] Dr. Lavonne Tinoco Cholesterol [Mass/Vol] 207 mg/dL Critically high <=200 [facility] Comment on above: Performed By: #### C MP, TSH, LIPID #### [facility] [address] [address] [address] Lavonne Tinoco Cholesterol in HDL [Mass/Vol] 37 mg/dL Critically low 40-60 [facility] Comment on above: Performed By: #### C MP, TSH, LIPID #### [facility] [address] [address] [address] Lavonne Tinoco Cholesterol in LDL [Mass/Vol] 143.8 mg/dL Normal [facility] Comment on above: Performed By: #### C MP, TSH, LIPID #### [facility] [address] [address] [address] Lavonne Tinoco Cholesterol.total/Chol esterol in HDL [Mass ratio] 5.6 {ratio} Normal [facility] Comment on above: Performed By: #### C MP, TSH, LIPID #### [facility] [address] [address] [address] Lavonne Tinoco HDL NORMAL > or = 60 mg/dl - LOW CARDIOVASCULAR RISK <40 mg/dl - HIGH CARDIOVASCULAR RISK Normal [facility] Comment on above: Performed By: #### C MP, TSH, LIPID #### [facility] [address] [place] [address] Dr. Lavonne Tinoco LDL CALC NORMAL SEE BELOW Normal [facility] Comment on above: Result Comment: <100 mg/dl OPTIMAL 100 - 129 mg/dl NEAR OR ABOVE OPTIMAL 130 - 159 mg/dl BORDERLINE HIGH 160 - 189 mg/dl HIGH >190 mg/dl VERY HIGH Performed By: #### C MP, TSH, LIPID #### [facility] [address] [address] [address] Lavonne Tinoco Triglyceride [Mass/Vol] 131 mg/dL Normal <=150 [facility] Comment on above: Performed By: #### C MP, TSH, LIPID #### [facility] [address] [address] [address] Lavonne Tinoco VLDL CALC 26.2 mg/dL Normal [facility] Comment on above: Performed By: #### C MP, TSH, LIPID #### [facility] [address] [address] [address] Lavonne Tinoco PROF 14(COMP METB)on 022 Albumin [Mass/Vol] 3.6 g/dL Normal 3.4-5.0 [facility] Comment on above: Performed By: #### C MP, TSH, LIPID #### [facility] [address] [address] [address] Lavonne Tinoco Albumin/Globulin [Mass ratio] 1.0 {ratio} Normal [facility] Comment on above: Performed By: #### C MP, TSH, LIPID #### [facility] [address] [place] [address] Dr. Lavonne Tinoco ALP [Catalytic activity/Vol] 85 U/L Normal 46-116 [facility] Comment on above: Performed By: #### C MP, TSH, LIPID #### [facility] [address] [place] [address] Dr. Lavonne Tinoco ALT [Catalytic activity/Vol] 33 U/L Normal 16-63 [facility] Comment on above: Performed By: #### C MP, TSH, LIPID #### [facility] [address] [place] [address] Dr. Lavonne Tinoco Anion gap [Moles/Vol] 9.2 mmol/L Normal [facility] Comment on above: Performed By: #### C MP, TSH, LIPID #### [facility] [address] [place] [address] Dr. Lavonne Tinoco AST [Catalytic activity/Vol] 17 U/L Normal 15-37 [facility] Comment on above: Performed By: #### C MP, TSH, LIPID #### [facility] [address] [address] [address] Lavonne Tinoco Bilirubin [Mass/Vol] 0.5 mg/dL Normal 0.2-1.0 [facility] Comment on above: Performed By: #### C MP, TSH, LIPID #### [facility] [address] [place] [address] Dr. Lavonne Tinoco Calcium [Mass/Vol] 8.5 mg/dL Normal 8.5-10.1 [facility] Comment on above: Performed By: #### C MP, TSH, LIPID #### [facility] [address] [place] [address] Dr. Lavonne Tinoco Chloride [Moles/Vol] 106 mmol/L Normal 98-107 [facility] Comment on above: Performed By: #### C MP, TSH, LIPID #### [facility] [address] [place] [address] Dr. Lavonne Tinoco CO2 [Moles/Vol] 31.3 mmol/L Normal 21.0-32.0 [facility] Comment on above: Performed By: #### C MP, TSH, LIPID #### [facility] [address] [place] [address] Dr. Lavonne Tinoco Creatinine [Mass/Vol] 1.06 mg/dL Normal 0.70-1.30 [facility] Comment on above: Performed By: #### C MP, TSH, LIPID #### [facility] [address] [place] [address] Dr. Lavonne Tinoco EGFR-AF CENTRAL AFRICAN >60 Normal >=60 [facility] Comment on above: Performed By: #### C MP, TSH, LIPID #### [facility] [address] [place] [address] Dr. Lavonne Tinoco EGFR-NON AF CENTRAL AFRICAN >60 Normal >=60 [facility] Comment on above: Performed By: #### C MP, TSH, LIPID #### [facility] [address] [place] [address] Dr. Lavonne Tinoco Globulin (S) [Mass/Vol] 3.6 g/dL Normal [facility] Comment on above: Performed By: #### C MP, TSH, LIPID #### [facility] [address] [place] [address] Dr. Lavonne Tinoco Glucose [Mass/Vol] 101 mg/dL Normal 74-106 [facility] Comment on above: Performed By: #### C MP, TSH, LIPID #### [facility] [address] [place] [address] Dr. Lavonne Tinoco Potassium [Moles/Vol] 3.5 mmol/L Normal 3.5-5.1 [facility] Comment on above: Performed By: #### C MP, TSH, LIPID #### [facility] [address] [place] [address] Dr. Lavonne Tinoco Protein [Mass/Vol] 7.2 g/dL Normal 6.4-8.2 [facility] Comment on above: Performed By: #### C MP, TSH, LIPID #### [facility] [address] [place] [address] Dr. Lavonne Tinoco Sodium [Moles/Vol] 143 mmol/L Normal 136-145 [facility] Comment on above: Performed By: #### C MP, TSH, LIPID #### [facility] [address] [place] [address] Dr. Lavonne Tinoco Urea nitrogen [Mass/Vol] 21.0 mg/dL Critically high 7.0-18.0 [facility] Comment on above: Performed By: #### C MP, TSH, LIPID #### [facility] [address] [place] [address] Dr. Lavonne Tinoco Urea nitrogen/Creatinine [Mass ratio] 19.8 mg/mg Normal [facility] Comment on above: Performed By: #### C MP, TSH, LIPID #### [facility] [address] [place] [address] Dr. Lavonne Tinoco TSHon 07-19-2022 TSH 1.947 uIU/mL Normal 0.358-3.740 [facility] Comment on above: Performed By: #### C MP, TSH, LIPID #### [facility] [address] [place] [address] Dr. Lavonne Tinoco UA RANDOM W/MICROSCOPICon BACTERIA NONE SEEN Normal NONE SEEN [facility] Comment on above: Performed By: #### U AMIC #### [facility] [address] [place] [address] Dr. Lavonne Tinoco Bilirubin Ql (U) Negative Normal NEGATIVE [facility] Comment on above: Performed By: #### U AMIC #### [facility] [address] [address] [address] Lavonne Tinoco CAST NONE SEEN Normal NONE SEEN [facility] Comment on above: Performed By: #### U AMIC #### [facility] [address] [place] [address] Dr. Lavonne Tinoco Clarity (U) CLEAR Normal CLEAR [facility] Comment on above: Performed By: #### U AMIC #### [facility] [address] [place] [address] Dr. Lavonne Tinoco Color (U) YELLOW Normal YELLOW [facility] Comment on above: Performed By: #### U AMIC #### [facility] [address] [place] [address] Dr. Lavonne Tinoco Crystals LM Nom (Urine sed) NONE SEEN Normal NONE SEEN [facility] Comment on above: Performed By: #### U AMIC #### [facility] [address] [place] [address] Dr. Lavonne Tinoco Epithelial cells LM Ql (Urine sed) FEW Abnormal NONE SEEN /RARE [facility] Comment on above: Performed By: #### U AMIC #### [facility] [address] [place] [address] Dr. Lavonne Tinoco Glucose Ql (U) Negative Normal NEGATIVE [facility] Comment on above: Performed By: #### U AMIC #### [facility] [address] [place] [address] Dr. Lavonne Tinoco Hemoglobin Ql (U) Negative Normal NEGATIVE [facility] Comment on above: Performed By: #### U AMIC #### [facility] [address] [place] [address] Dr. Lavonne Tinoco Ketones Ql (U) Negative Normal NEGATIVE [facility] Comment on above: Performed By: #### U AMIC #### [facility] [address] [place] [address] Dr. Lavonne Tinoco LEUKOCYTES TRACE Abnormal NEGATIVE [facility] Comment on above: Performed By: #### U AMIC #### [facility] [address] [place] [address] Dr. Lavonne Tinoco MUCOUS NONE SEEN Normal NONE SEEN [facility] Comment on above: Performed By: #### U AMIC #### [facility] [address] [address] [address] Lavonne Tinoco Nitrite Ql (U) Negative Normal NEGATIVE [facility] Comment on above: Performed By: #### U AMIC #### [facility] [address] [address] [address] Lavonne Tinoco pH (U) 6.0 [pH] Normal 5-9 [facility] Comment on above: Performed By: #### U AMIC #### [facility] [address] [address] [address] Lavonne Tinoco RBC NONE SEEN Abnormal 0-2 [facility] Comment on above: Performed By: #### U AMIC #### [facility] [address] [place] [address] Dr. Lavonne Tinoco SPEC GRAVITY 1.020 Normal 1.005-<=1.025 [facility] Comment on above: Performed By: #### U AMIC #### [facility] [address] [place] [address] Dr. Lavonne Tinoco UA PROTEIN TRACE Normal NEGATIVE/ TRACE [facility] Comment on above: Performed By: #### U AMIC #### [facility] [address] [place] [address] Dr. Lavonne Tinoco Urobilinogen Qn (U) 2.0 {Erick'U}/dL Abnormal 0.2 - 1. 0 [facility] Comment on above: Performed By: #### U AMIC #### [facility] [address] [place] [address] Dr. Lavonne Tinoco WBC 0-2 Abnormal NONE SEEN [facility] Comment on above: Performed By: #### U AMIC #### [facility] [address] [place] [address] Dr. Lavonne Tinoco NM STRESS/REST MULTIon 04-04 NM STRESS/REST MULTI Patient: ABRAM GUILLAUME Exam Date: 04/04/2022 : 1965 Gender:M Ordering : ROSI SEXTON CNP Admission #: [id number] Family : Order #: [id number] CLICK HERE TO VIEW EXAM RADIOLOGY REPORT [...] Gan MD on 04/04/2022 at 13:16 Normal [facility] ECHOCARDIO M/2D COMPLETEon 0 02-27-2022 ECHOCARDIO M/2D COMPLETE Patient: ABRAM GUILLAUME Exam Date: 02/27/2022 : 1965 Gender:M Ordering : ROSI PEPPER SEXTON [facility] Admission #: [id number] Family : Order #: [id number] CLICK HERE TO VIEW EXAM ECHOCARDIOGRAM REPORT [...] Area(A4C): 21.60 cm2 Left Atrium Systolic Volume(A2C): 82602 mm3 Left Atrium Systolic Volume(A4C): 26204 mm3 Mitral Valve MV E to A [...] Peck M.D. on 02/28/2022 at 11:52 Normal [facility] ANKLE LEFT 3 Son 2 ANKLE LEFT 3 S [facility] Department of Radiology [address] [place] [address] Patient Name: ABRAM GUILLAUME : [...] Weight Bearing?: Y Exam: ANKLE LEFT 3 [facility] ANKLE LEFT 3 [facility] 01/11/2022 9:13 AM CLINICAL INDICATIONS: [...] above Electronically signed: Violeta Jay. Transcribed by: [id number], User Resident: Electronically Signed by: VIOLETA JAY @ 01/12/2022 03:24 PM Normal [facility] Comment on above: Order Comment: Views (X-RAY, ANKLE): AP, Lateral, Mortise , Weight Bearing?: Y GLYCOHEMOGLOBIN A1Con 2021 ADA RECOMMENDATION ADA THERAPEUTIC TARGET 6.0 - 7.0 ACTION SUGGESTED > 7.0 Normal [facility] Comment on above: Performed By: #### A 1C #### [facility] [address] [place] [address] Dr. Lavonne Tinoco Glucose [Mass/Vol] 100 mg/dL Normal [facility] Comment on above: Performed By: #### A 1C #### [facility] [address] [address] [address] Lavonne Tinoco HbA1c (Bld) [Mass fraction] 5.1 % Normal <=6.0 [facility] Comment on above: Performed By: #### A 1C #### [facility] [address] [address] [address] Lavonne Tinoco MAGNESIUMon 12-25-2021 Magnesium [Mass/Vol] 1.7 mg/dL Normal 1.6-2.3 [facility] Comment on above: Performed By: #### M G, BMP #### [facility] [address] [address] [address] Lavonne Tinoco PROF CHEM 8 (BAS METB)on Anion gap [Moles/Vol] 12.3 mmol/L Normal [facility] Comment on above: Performed By: #### M G, BMP #### [facility] [address] [address] [address] Lavonne Tinoco Calcium [Mass/Vol] 8.7 mg/dL Normal 8.5-10.1 [facility] Comment on above: Performed By: #### M G, BMP #### [facility] [address] [place] [address] Dr. Lavonne Tinoco Chloride [Moles/Vol] 107 mmol/L Normal 98-107 [facility] Comment on above: Performed By: #### M G, BMP #### [facility] [address] [place] [address] Dr. Lavonne Tinoco CO2 [Moles/Vol] 27.4 mmol/L Normal 22.0-30.0 [facility] Comment on above: Performed By: #### M G, BMP #### [facility] [address] [place] [address] Dr. Lavonne Tinoco Creatinine [Mass/Vol] 1.50 mg/dL Critically high 0.66-1.25 [facility] Comment on above: Performed By: #### M G, BMP #### [facility] [address] [place] [address] Dr. Lavonne Tinoco EGFR-AF CENTRAL AFRICAN 59 mL/min/1.73m2 Critically low >=60 [facility] Comment on above: Performed By: #### M G, BMP #### [facility] [address] [place] [address] Dr. Lavonne Tinoco EGFR-NON AF CENTRAL AFRICAN 49 mL/min/1.73m2 Critically low >=60 [facility] Comment on above: Performed By: #### M G, BMP #### [facility] [address] [place] [address] Dr. Lavonne Tinoco Glucose [Mass/Vol] 103 mg/dL Normal 74-106 [facility] Comment on above: Performed By: #### M G, BMP #### [facility] [address] [place] [address] Dr. Lavonne Tinoco Potassium [Moles/Vol] 3.7 mmol/L Normal 3.4-5.0 [facility] Comment on above: Performed By: #### M G, BMP #### [facility] [address] [address] [address] Lavonne Tinoco Sodium [Moles/Vol] 143 mmol/L Normal 137-145 [facility] Comment on above: Performed By: #### M G, BMP #### [facility] [address] [address] [address] Lavonne Tinoco Urea nitrogen [Mass/Vol] 17.0 mg/dL Normal 7.0-18.0 [facility] Comment on above: Performed By: #### M G, BMP #### [facility] [address] [address] [address] Lavonne Tinoco Urea nitrogen/Creatinine [Mass ratio] 11.3 mg/mg Normal [facility] Comment on above: Performed By: #### M G, BMP #### [facility] [address] [place] [address] Dr. Lavonne Tinoco Vital Signs Date Time Vital Sign Value Performing Clinician Facility 04-07-2025 08:20-0400 Body mass index (BMI) [Ratio] 38.4 kg/m2 Pepper Sexton TEST RACK OPERATOR Work Phone: [facility] 04-07-2025 08:20-0400 Body temperature 97.81 [degF] Pepper Sexton TEST RACK OPERATOR Work Phone: [facility] 04-07-2025 08:20-0400 Body weight 117.94 kg Pepper Sexton TEST RACK OPERATOR Work Phone: [facility] 04-07-2025 08:20-0400 Diastolic blood pressure 106 mm[Hg] Pepper Sexton TEST RACK OPERATOR Work Phone: [facility] 04-07-2025 08:20-0400 Heart rate 97 /min Pepper Sexton TEST RACK OPERATOR Work Phone: [facility] 04-07-2025 08:20-0400 Respiratory rate 18 /min Pepper Sexton TEST RACK OPERATOR Work Phone: [facility] 04-07-2025 08:20-0400 SaO2% (BldA) [Mass fraction] 93 % Pepper Aichholz TEST RACK OPERATOR Work Phone: [facility] 04-07-2025 08:20-0400 Systolic blood pressure 160 mm[Hg] Pepper Aichholz TEST RACK OPERATOR Work Phone: [facility] 04-06-2025 14:45-0400 Diastolic blood pressure 118 mm[Hg] Pepper Aichholz Work Phone: [facility] 04-06-2025 14:45-0400 Heart rate 103 /min Pepper Aichholz Work Phone: [facility] 04-06-2025 14:45-0400 Systolic blood pressure 162 mm[Hg] Pepper Aichholz Work Phone: [facility] 04-06-2025 14:39-0400 Body weight 115.21 kg Pepper Aichholz Work Phone: [facility] 04-06-2025 14:39-0400 Respiratory rate 18 /min Pepper Aichholz Work Phone: [facility] 04-06-2025 14:39-0400 SaO2% (BldA) [Mass fraction] 96 % Pepper Aichholz Work Phone: [facility] 04-01-2025 09:49-0400 Body height 175.3 cm Robert Kumar MD Work Phone: [facility] 04-01-2025 09:49-0400 Body mass index (BMI) [Ratio] 37.66 kg/m2 Robert Kumar MD Work Phone: [facility] 04-01-2025 09:49-0400 Body weight 115.67 kg Robert Kumar MD Work Phone: [facility] 04-01-2025 09:49-0400 Diastolic blood pressure 122 mm[Hg] Robert Kumar MD Work Phone: [facility] 04-01-2025 09:49-0400 Heart rate 91 /min Robert Kumar MD Work Phone: [facility] 04-01-2025 09:49-0400 Systolic blood pressure 177 mm[Hg] Robert Kumar MD Work Phone: [facility] 03-08-2025 08:54-0400 Diastolic blood pressure 92 mm[Hg] Peppereboni Serratoholz TEST RACK OPERATOR Work Phone: [facility] 03-08-2025 08:54-0400 Systolic blood pressure 144 mm[Hg] Pepper Aichholz TEST RACK OPERATOR Work Phone: [facility] 03-08-2025 08:26-0400 Body mass index (BMI) [Ratio] 38.28 kg/m2 Pepper Aichholz TEST RACK OPERATOR Work Phone: [facility] 03-08-2025 08:26-0400 Body temperature 98.1 [degF] Pepper Aichholz TEST RACK OPERATOR Work Phone: [facility] 03-08-2025 08:26-0400 Body weight 117.57 kg Pepper Aichholz TEST RACK OPERATOR Work Phone: [facility] 03-08-2025 08:26-0400 Heart rate 76 /min Pepper Aichholz TEST RACK OPERATOR Work Phone: [facility] 03-08-2025 08:26-0400 Respiratory rate 20 /min Pepper Javierhholz TEST RACK OPERATOR Work Phone: [facility] 03-08-2025 08:26-0400 SaO2% (BldA) [Mass fraction] 94 % Pepper Aichholz TEST RACK OPERATOR Work Phone: [facility] 02-17-2025 16:45-0400 Body mass index (BMI) [Ratio] 38.16 kg/m2 Pepper Aichholz TEST RACK OPERATOR Work Phone: [facility] 02-17-2025 16:45-0400 Body temperature 98.01 [degF] Pepper Javierhholz TEST RACK OPERATOR Work Phone: [facility] 02-17-2025 16:45-0400 Body weight 117.21 kg Pepper Aichholz TEST RACK OPERATOR Work Phone: [facility] 02-17-2025 16:45-0400 Diastolic blood pressure 90 mm[Hg] Pepper Aichholz TEST RACK OPERATOR Work Phone: [facility] 02-17-2025 16:45-0400 Heart rate 104 /min Pepper Aichholz TEST RACK OPERATOR Work Phone: [facility] 02-17-2025 16:45-0400 Respiratory rate 22 /min Pepper Aichholz TEST RACK OPERATOR Work Phone: [facility] 02-17-2025 16:45-0400 SaO2% (BldA) [Mass fraction] 94 % Pepper Aichholz TEST RACK OPERATOR Work Phone: [facility] 02-17-2025 16:45-0400 Systolic blood pressure 116 mm[Hg] Pepper Aichholz TEST RACK OPERATOR Work Phone: [facility] 01-06-2025 09:06-0400 Body height 175.3 cm Pepper Aichholz TEST RACK OPERATOR Work Phone: [facility] 01-06-2025 09:06-0400 Body mass index (BMI) [Ratio] 40.46 kg/m2 Pepper Aichholz TEST RACK OPERATOR Work Phone: [facility] 01-06-2025 09:06-0400 Body temperature 97.81 [degF] Pepper Aichholz TEST RACK OPERATOR Work Phone: [facility] 01-06-2025 09:06-0400 Body weight 124.29 kg Pepper Aichholz TEST RACK OPERATOR Work Phone: [facility] 01-06-2025 09:06-0400 Diastolic blood pressure 82 mm[Hg] Pepper Aichholz TEST RACK OPERATOR Work Phone: [facility] 04-16-2025 09:06-0400 Heart rate 91 /min Pepper Aichholz TEST RACK OPERATOR Work Phone: [facility] 01-06-2025 09:06-0400 Respiratory rate 18 /min Pepper Aichholz TEST RACK OPERATOR Work Phone: [facility] 01-06-2025 09:06-0400 SaO2% (BldA) [Mass fraction] 93 % Pepper Aichholz TEST RACK OPERATOR Work Phone: [facility] 01-06-2025 09:06-0400 Systolic blood pressure 140 mm[Hg] Pepper Aichholz TEST RACK OPERATOR Work Phone: [facility] 12-02-2024 13:45-0400 Body height 175.26 cm Pepper Aichholz Work Phone: [facility] 12-02-2024 13:45-0400 Body mass index (BMI) [Ratio] 41 kg/m2 Pepper Aichholz Work Phone: [facility] 12-02-2024 13:45-0400 Body weight 126.09 kg Pepper Aichholz Work Phone: [facility] 12-02-2024 13:45-0400 Diastolic blood pressure 73 mm[Hg] Pepper Aichholz Work Phone: [facility] 12-02-2024 13:45-0400 Heart rate 89 /min Pepper Aichholz Work Phone: [facility] 12-02-2024 13:45-0400 Respiratory rate 18 /min Pepper Aichholz Work Phone: [facility] 12-02-2024 13:45-0400 SaO2% (BldA) [Mass fraction] 95 % Pepper Aichholz Work Phone: [facility] 12-02-2024 13:45-0400 Systolic blood pressure 122 mm[Hg] Pepper Aichholz Work Phone: [facility] 10-07-2024 09:05-0500 Body height 175.3 cm Pepper Aichholz TEST RACK OPERATOR Work Phone: [facility] 10-07-2024 09:05-0500 Body mass index (BMI) [Ratio] 41.47 kg/m2 Pepper Aichholz TEST RACK OPERATOR Work Phone: [facility] 10-07-2024 09:05-0500 Body temperature 97.81 [degF] Pepper Aichholz TEST RACK OPERATOR Work Phone: [facility] 10-07-2024 09:05-0500 Body weight 127.37 kg Pepper Aichholz TEST RACK OPERATOR Work Phone: [facility] 10-07-2024 09:05-0500 Diastolic blood pressure 84 mm[Hg] Pepper Aichholz TEST RACK OPERATOR Work Phone: [facility] 10-07-2024 09:05-0500 Heart rate 92 /min Pepper Aichholz TEST RACK OPERATOR Work Phone: [facility] 10-07-2024 09:05-0500 Respiratory rate 22 /min Pepper Aichholz TEST RACK OPERATOR Work Phone: [facility] 10-07-2024 09:05-0500 SaO2% (BldA) [Mass fraction] 96 % Pepper Aichholz TEST RACK OPERATOR Work Phone: [facility] 10-07-2024 09:05-0500 Systolic blood pressure 138 mm[Hg] Pepper Aichholz TEST RACK OPERATOR Work Phone: [facility] 10-06-2024 09:05-0500 Diastolic blood pressure 86 mm[Hg] Pepper Aichholz Work Phone: [facility] 10-06-2024 09:05-0500 Heart rate 88 /min Pepper Aichholz Work Phone: [facility] 10-06-2024 09:05-0500 Respiratory rate 18 /min Pepper Aichholz Work Phone: [facility] 10-06-2024 09:05-0500 SaO2% (BldA) [Mass fraction] 96 % Pepper Aichholz Work Phone: [facility] 10-06-2024 09:05-0500 Systolic blood pressure 136 mm[Hg] Pepper Aichholz Work Phone: [facility] 10-06-2024 07:31-0500 Body height 177.8 cm Pepper Aichholz Work Phone: [facility] 10-06-2024 07:31-0500 Body weight 115.66 kg Pepper Aichholz Work Phone: [facility] 07-09-2024 13:55-0400 Diastolic blood pressure 74 mm[Hg] Pepper Aichholz Work Phone: [facility] 07-09-2024 13:55-0400 Heart rate 74 /min Pepper Aichholz Work Phone: [facility] 07-09-2024 13:55-0400 Respiratory rate 18 /min Pepper Aichholz Work Phone: [facility] 07-09-2024 13:55-0400 SaO2% (BldA) [Mass fraction] 100 % Pepper Aichholz Work Phone: [facility] 07-09-2024 13:55-0400 Systolic blood pressure 111 mm[Hg] Pepper Aichholz Work Phone: [facility] 07-09-2024 11:51-0400 Body height 175.26 cm Pepper Aichholz Work Phone: [facility] 07-09-2024 11:51-0400 Body temperature 98.6 [degF] Pepper Aichholz Work Phone: [facility] 07-09-2024 11:51-0400 Body weight 117.9 kg Pepper Aichholz Work Phone: [facility] 07-06-2024 09:44-0400 Body height 175.3 cm Peppereboni Herreranitoz TEST RACK OPERATOR Work Phone: [facility] 07-06-2024 09:44-0400 Body mass index (BMI) [Ratio] 37.18 kg/m2 Pepper Rojelioholz TEST RACK OPERATOR Work Phone: [facility] 07-06-2024 09:44-0400 Body temperature 98.1 [degF] Peppereboni Herreranitoz TEST RACK OPERATOR Work Phone: [facility] 07-06-2024 09:44-0400 Body weight 114.22 kg Pepper Javiernitoz TEST RACK OPERATOR Work Phone: [facility] 07-06-2024 09:44-0400 Diastolic blood pressure 82 mm[Hg] Pepper Danez TEST RACK OPERATOR Work Phone: [facility] 07-06-2024 09:44-0400 Heart rate 79 /min Pepper Javiernitoz TEST RACK OPERATOR Work Phone: [facility] 07-06-2024 09:44-0400 Respiratory rate 19 /min Pepper Javiernitoz TEST RACK OPERATOR Work Phone: [facility] 07-06-2024 09:44-0400 SaO2% (BldA) [Mass fraction] 93 % Pepper Carlie TEST RACK OPERATOR Work Phone: [facility] 07-06-2024 09:44-0400 Systolic blood pressure 126 mm[Hg] Pepper Danez TEST RACK OPERATOR Work Phone: [facility] 06-24-2024 08:39-0400 Body height 175.26 cm [facility] 06-24-2024 08:39-0400 Body mass index (BMI) [Ratio] 42.3 kg/m2 [facility] 06-24-2024 08:39-0400 Body weight 130 kg [facility] 06-23-2024 08:50-0400 Body height 175.26 cm [facility] 06-23-2024 08:50-0400 Body mass index (BMI) [Ratio] 42.3 kg/m2 [facility] 06-23-2024 08:50-0400 Body temperature 98.2 [degF] [facility] 06-23-2024 08:50-0400 Body weight 129.89 kg [facility] 06-23-2024 08:50-0400 Diastolic blood pressure 77 mm[Hg] [facility] 06-23-2024 08:50-0400 Heart rate 91 /min [facility] 06-23-2024 08:50-0400 Respiratory rate 18 /min [facility] 06-23-2024 08:50-0400 SaO2% (BldA) [Mass fraction] 93 % [facility] 06-23-2024 08:50-0400 Systolic blood pressure 115 mm[Hg] [facility] 04-27-2024 08:35-0400 Body height 175.3 cm [facility] 2 [facility] 04-27-2024 08:35-0400 Body mass index (BMI) [Ratio] 38.4 kg/m2 [facility] 2 [facility] 04-27-2024 08:35-0400 Body weight 117.94 kg [facility] 2 [facility] 03-19-2024 09:37-0400 Body height 175.26 cm [facility] 03-19-2024 09:37-0400 Body mass index (BMI) [Ratio] 39.4 kg/m2 [facility] 03-19-2024 09:37-0400 Body temperature 97.8 [degF] [facility] 03-19-2024 09:37-0400 Body weight 121.1 kg [facility] 03-19-2024 09:37-0400 Diastolic blood pressure 98 mm[Hg] [facility] 03-19-2024 09:37-0400 Heart rate 94 /min [facility] 03-19-2024 09:37-0400 Respiratory rate 20 /min [facility] 03-19-2024 09:37-0400 SaO2% (BldA) [Mass fraction] 95 % [facility] 03-19-2024 09:37-0400 Systolic blood pressure 158 mm[Hg] [facility] Encounters Encounter Date Encounter Type Care Provider Facility Start: 04-07-2025 End: 04-07-2025 Bamboo flowsheet Pepper Sexton TEST RACK OPERATOR Work Phone: [facility] Start: 04-07-2025 End: 04-07-2025 Bamboo flowsheet Pepper Sexton TEST RACK OPERATOR Work Phone: [facility] Start: 04-07-2025 End: 04-07-2025 Office outpatient visit 25 minutes Pepper Sexton NP Work Phone: [facility] Comment on above: Essential hypertensi on, benign (Primary Dx); Morbid (severe) obesity due to excess calories ([facility]-H[facility]); Gastro-esophageal reflux disease without esophagitis; 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); Fibromyalgia; Bronchitis; Acute gout of left hand, unspecified cause Start: 04-06-2025 End: 04-06-2025 ambulatory Pepper Sexton Work Phone: [facility] Work Phone: Start: 04-06-2025 End: 04-06-2025 Patient encounter procedure Tang Hamilton MD -[facility] Work Phone: Start: 04-01-2025 End: 04-01-2025 Office outpatient visit 25 minutes Robert Kumar MD Work Phone: [facility] [place] Comment on above: Chronic venous insuf ficiency (Primary Dx); Chronic deep vein thrombosis (DVT) of popliteal vein of left lower extremity ([facility]-HCC); 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 ([facility]-HCC) Start: 04-01-2025 End: 04-01-2025 ambulatory ROBERT KUMAR [facility] Start: 03-31-2025 End: 03-31-2025 Clinisync Result Encounter Pepper Aichholz TEST RACK OPERATOR Work Phone: [facility] Unsolicited Start: 03-31-2025 End: 03-31-2025 Clinisync Result Encounter Pepper Serratojemal TEST RACK OPERATOR Work Phone: [facility] Unsolicited Start: 03-17-2025 End: 03-17-2025 Clinisync Result Encounter Pepper Carlie TEST RACK OPERATOR Work Phone: [facility] Unsolicited Start: 03-17-2025 End: 03-17-2025 Clinisync Result Encounter Pepper Serratojemal TEST RACK OPERATOR Work Phone: [facility] Unsolicited Start: 03-17-2025 End: 03-17-2025 Orders Only Pepper Carlie TEST RACK OPERATOR Work Phone: [facility] Comment on above: Electrolyte abnormal ity (Primary Dx) Start: 03-17-2025 Non-patient / Non-visit Tang Hamilton MD [facility] Work Phone: Start: 03-16-2025 End: 03-16-2025 Refill Pepper Sexton TEST RACK OPERATOR Work Phone: [facility] Comment on above: Atopic dermatitis, u nspecified type Hypothyroidism, unsp ecified type ; Gastroesophageal reflux disease, unspecified whether esophagitis present; Essential hypertension, benign Start: 03-08-2025 End: 03-08-2025 Bamboo flowsheet Pepper Carlie TEST RACK OPERATOR Work Phone: [facility] Start: 03-08-2025 End: 03-08-2025 Bamboo flowsheet Pepper Carlie TEST RACK OPERATOR Work Phone: [facility] Start: 03-08-2025 End: 03-08-2025 Office outpatient visit 25 minutes Pepper Sexton TEST RACK OPERATOR Work Phone: [facility] Comment on above: Cellulitis of left l ower extremity (Primary Dx); Essential hypertension, benign ; Left leg swelling; Morbid (severe) obesity due to excess calories ([facility]-HCC); Chronic bronchitis, unspecified chronic bronchitis type (HCC); Restless legs syndrome; Atopic dermatitis, unspecified type Start: 03-08-2025 End: 03-08-2025 ambulatory PEPPER SEXTON Not Available Start: 02-17-2025 End: 02-17-2025 Transitional care manage srvc 7 day discharge Pepper Sexton TEST RACK OPERATOR Work Phone: [facility] Comment on above: Cellulitis of left l [...] 01-06-2025 End: 01-06-2025 Bamboo flowsheet Pepper Sexton TEST RACK OPERATOR Work Phone: [facility] Start: 01-06-2025 End: 01-06-2025 Bamboo flowsheet Pepper Sexton TEST RACK OPERATOR Work Phone: [facility] Start: 01-06-2025 End: 01-06-2025 Office outpatient visit 25 minutes Pepper Sexton TEST RACK OPERATOR Work Phone: [facility] Comment on above: Essential hypertensi on, benign [...] 12-02-2024 ambulatory Pepper Wheeler Javierpricillajemal Work Phone: [facility] Work Phone: Start: 12-02-2024 End: 12-02-2024 Patient encounter procedure Pepper Javierpricillajemal Work Phone: [facility] [place] Work Phone: Start: 11-26-2024 End: 11-26-2024 Clinisync [...] / Non-visit Pepper Eboni kelechi Work Phone: [facility] Work Phone: Start: 11-05-2024 End: 11-05-2024 Clinisync Result Encounter Pepper Carlie TEST RACK OPERATOR Work Phone: [facility] Unsolicited Start: 11-05-2024 End: 11-05-2024 Clinisync Result Encounter Ppeper Carlie TEST RACK OPERATOR Work Phone: [facility] Unsolicited Start: 11-04-2024 End: 11-04-2024 Refill Pepper Carlie TEST RACK OPERATOR Work Phone: [facility] Comment on above: Hypomagnesemia; Restless legs syndrome Start: 10-08-2024 End: 10-08-2024 Refill Pepper Aicpricillaholz TEST RACK OPERATOR Work Phone: [facility] Comment on above: Hypothyroidism, unsp ecified type (CMS/HCC) (Primary Dx); Hypomagnesemia Start: 10-07-2024 End: 10-07-2024 Bamboo flowsheet Pepper Carlie TEST RACK OPERATOR Work Phone: [facility] Start: 10-07-2024 End: 10-07-2024 Bamboo flowsheet Pepper Javierpricillajemal TEST RACK OPERATOR Work Phone: [facility] Start: 10-07-2024 End: 10-07-2024 Clinisync Result Encounter Pepper Carlie TEST RACK OPERATOR Work Phone: [facility] External Department Unsolicited Start: 10-07-2024 End: 10-07-2024 Office outpatient visit 25 minutes Pepper Sexton TEST RACK OPERATOR Work Phone: [facility] Comment on above: Essential hypertensi on, benign [...] Non-patient / Non-visit Pepper lorenz Work Phone: [facility] Work Phone: Start: 10-06-2024 End: 10-06-2024 Admission to same day surgery center Pepper Sexton Work Phone: [facility] Work Phone: Start: 10-06-2024 End: 10-06-2024 ambulatory Pepper Sexton Work Phone: [facility] Work Phone: Start: 09-28-2024 End: 09-28-2024 Clinisync Result Encounter Pepper Velaz TEST RACK OPERATOR Work Phone: [facility] Unsolicited Start: 09-28-2024 End: 09-28-2024 Clinisync Result Encounter Pepper Sexton TEST RACK OPERATOR Work Phone: [facility] Unsolicited Start: 09-28-2024 End: 09-28-2024 Refill Peppereboni Serratoholz TEST RACK OPERATOR Work Phone: [facility] Comment on above: Hypomagnesemia (Prim ирина Dx) Start: 09-14-2024 End: 09-14-2024 Refill Pepper Rojelioholz TEST RACK OPERATOR Work Phone: [facility] Comment on above: Hypomagnesemia Start: 09-14-2024 End: 09-15-2024 Refill Pepper Rojelioholz TEST RACK OPERATOR Work Phone: [facility] Comment on above: Fibromyalgia Start: 09-04-2024 End: 09-04-2024 Orders Only Pepper Rojelioholz TEST RACK OPERATOR Work Phone: [facility] Comment on above: Hypomagnesemia (Prim ирина Dx) Start: 09-04-2024 End: 09-04-2024 Refill Pepper Rojelioholz TEST RACK OPERATOR Work Phone: [facility] Comment on above: Hypomagnesemia Start: 07-09-2024 Non-patient / Non-visit Pepper Eboni kelechi Work Phone: [facility] Work Phone: Start: 07-09-2024 End: 07-09-2024 Admission to same day surgery center Pepper Carlie Work Phone: [facility] Work Phone: Start: 07-09-2024 End: 07-09-2024 ambulatory Pepper Wheeler Carlie Work Phone: [facility] Work Phone: Start: 07-06-2024 End: 07-06-2024 Bamboo flowsheet Pepper Javierpricillajemal TEST RACK OPERATOR Work Phone: [facility] Start: 07-06-2024 End: 07-06-2024 Bamboo flowsheet Pepper Javierpricillajemal TEST RACK OPERATOR Work Phone: [facility] Start: 07-06-2024 End: 07-06-2024 Office outpatient visit 25 minutes Pepper Carlie TEST RACK OPERATOR Work Phone: [facility] Comment on [...] Start: 06-29-2024 End: 06-29-2024 Refill Pepper Sexton TEST RACK OPERATOR Work Phone: [facility] Comment on above: Restless legs syndro me Start: 06-24-2024 End: 06-24-2024 ambulatory [facility] Work Phone: Start: 06-24-2024 End: 06-24-2024 Patient encounter procedure [facility] Work Phone: Start: 06-23-2024 End: 06-23-2024 Clinisync Result Encounter Generic External Data Provider [facility] Unsolicited Start: 06-23-2024 End: 06-23-2024 Clinisync Result Encounter Generic External Data Provider [facility] External [facility] Unsolicited Start: 06-23-2024 End: 06-23-2024 ambulatory [facility] Work Phone: Start: 06-23-2024 End: 06-23-2024 Patient encounter procedure [facility] [place] Work Phone: Start: 06-18-2024 End: 06-18-2024 Refill Jose Bell MD Work Phone: [facility] Comment on above: Degenerative disc di sease, cervical (Primary Dx) Start: 06-09-2024 End: 06-09-2024 Refill Pepper Sexton TEST RACK OPERATOR Work Phone: [facility] Comment on above: Hypomagnesemia questions Start: 06-03-2024 End: 06-03-2024 Bamboo flowsheet Blank B Apling TEST RACK OPERATOR Work Phone: [facility] Start: 06-03-2024 End: 06-03-2024 Bamboo flowsheet Blank B Apling TEST RACK OPERATOR Work Phone: [facility] Start: 06-03-2024 End: 06-03-2024 ambulatory BLANK B APLING Not Available Start: 06-03-2024 End: 06-03-2024 Postop follow up visit related to original px Blank B Apling TEST RACK OPERATOR Work Phone: [facility] Comment on above: 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) Start: 05-27-2024 End: 05-27-2024 Evaluation and management of inpatient KENNEDI GRESHAM [facility] Start: 05-27-2024 End: 05-27-2024 Evaluation and management of inpatient [facility] Start: 05-26-2024 End: 05-26-2024 Refill Tiburcio Noel TEST RACK OPERATOR Work Phone: [facility] Comment on above: Post-operative pain (Primary Dx) Start: 05-04-2024 End: 01-06-2025 Preoperative state Tiburcio Noel NP Work Phone: [facility] Start: 05-04-2024 End: 05-04-2024 ambulatory PEPPER DANEZ Not Available Start: 04-30-2024 End: 04-30-2024 ambulatory [facility] Not Available Start: 04-27-2024 End: 04-27-2024 ambulatory [facility] Start: 04-27-2024 Encounter for other preprocedural examination [facility] Start: 04-27-2024 End: 04-27-2024 Patient encounter procedure [facility] Pre-Admission Testing 2 [facility] - Pre Admit Comment on above: Preop examination (P rimary Dx); Hypertension, unspecified type Start: 04-27-2024 End: 04-27-2024 Preprocedural examination done Pm 2 [facility] Start: 04-09-2024 End: 04-09-2024 ambulatory PEPPER AICHHOLZ Not Available Start: 03-19-2024 End: 03-19-2024 ambulatory [facility] Work Phone: Start: 03-19-2024 End: 03-19-2024 Patient encounter procedure [facility] Work Phone: Start: 03-11-2024 End: 03-11-2024 ambulatory PEPPER AICHHOLZ Not Available Start: 07-19-2022 End: 07-20-2022 ambulatory [employer] INST[employer] PEPPER AICHHOLZ Facility: Start: 04-04-2022 End: 04-05-2022 ambulatory [employer] INST[employer]ER PEPPER AICHHOLZ Facility:H1 Start: 02-27-2022 End: 02-28-2022 ambulatory [employer] INST[employer]ER PEPPER AICHHOLZ Facility:H1 Start: 01-16-2022 End: 01-17-2022 ambulatory [employer]ABLE SYSTEMS INSTALLER PEPPER AICHHOLZ Facility:H1 Start: 12-25-2021 End: 12-26-2021 ambulatory [employer] SYSTEMS INSTALLER PEPPER AICHHOLZ Facility:H1 Procedures Date Procedure Procedure Detail Performing Clinician Start: 03-31-2025 ALL BASIC METABOLIC PANEL Pepper Aichholz TEST RACK OPERATOR Work Phone: Start: 03-17-2025 ALL CBC WITH AUTO DIFF Pepper Aichholz TEST RACK OPERATOR Work Phone: Start: 02-07-2025 BLOOD CULTURE 2 Generic External Data Provider Start: 02-07-2025 BLOOD CULTURE 1 Generic External Data Provider Start: 11-26-2024 ALL CBC WITH AUTO DIFF Generic External Data Provider Start: 11-24-2024 ALL MAGNESIUM Generic External Data Provider Start: 11-05-2024 ALL MAGNESIUM Pepper Aichholz TEST RACK OPERATOR Work Phone: Start: 10-07-2024 ALL MAGNESIUM Pepper Aichholz TEST RACK OPERATOR Work Phone: Start: 10-07-2024 ALL THYROID STIM HORMONE Pepper Aichholz N P Work Phone: Start: 10-07-2024 Hemoglobin glycosylated a1c Pepper Aichhol z TEST RACK OPERATOR Work Phone: Start: 10-06-2024 Esophagogastroduodenoscopy Pepper Aichholz Work Phone: Start: 09-28-2024 ALL BASIC METABOLIC PANEL Pepper Aichholz TEST RACK OPERATOR Work Phone: Start: 09-28-2024 ALL MAGNESIUM Pepper Aichholz TEST RACK OPERATOR Work Phone: Start: 07-09-2024 Esophagogastroduodenoscopy Pepper Aichholz Work Phone: Start: 06-23-2024 ALL MAGNESIUM Generic External Data Provider Start: 06-23-2024 ALL RENAL FUNCTION PANEL Generic Externa l Data Provider Start: 06-23-2024 ALL URIC ACID Generic External Data Provider Start: 07-19-2022 PSA screening CABLE SYSTEMS INSTALLER PEPPER SEXTON Comment on above: Performed By: #### CMP, TSH, LIPID #### [facility] [address] [address] [address] Lavonne Tinoco Plan of Treatment Date Care Activity Detail Author Start: 04-01-2026 Adult BMI Screening Adult BMI Screen ing [facility] Start: 08-11-2025 Screening for malign ant neoplasm of colon [facility] Start: 05-27-2025 Tobacco Screening Tobacco Screening [facility] Start: 05-24-2025 Influenza vaccination Influenza Vacc ine [facility] Start: 05-05-2025 End: 05-05-2025 Patient encounter procedure 05/05/2025 8:20 AM EDT Office Visit [facility] [address] [place] [address] Pepper Sexton, TEST RACK OPERATOR [address] [place] [address] [facility] Start: 04-29-2025 End: 04-29-2025 Patient encounter procedure 04/29/2025 8:50 AM EDT Office Visit [facility] [address] [place] [address] Robert Kumar MD [address], [address] [address] [facility] [place] Start: 04-27-2025 Adult BMI Screening Adult BMI Screen ing [facility] Start: 04-27-2025 Tobacco Screening Tobacco Screening [facility] Start: 04-20-2025 End: 04-20-2025 Patient encounter procedure 04/20/2025 9:00 AM EDT Appointment [facility] [address] [place] [id number] Robert Kumar MD [address] [address] [facility] Start: 04-07-2025 End: 04-07-2026 Urate [Mass/volume] in Serum or Plasma Uric acid Lab Routine Acute gout of left hand, unspecified cause Expected: 04/07/2025 (Approximate), Expires: 04/07/2026 [facility] Work Phone: Comment on above: Expected: [...] Chronic venous insufficiency Expected: 04/01/2025, Expires: 04/01/2026 [facility] Work Phone: Comment on above: Expected: 04/01/2025 , Expires: 04/01/2026 Start: 03-17-2025 End: 03-17-2026 Basic metabolic 1998 panel - Serum or Plasma Basic metabolic panel Lab Routine Electrolyte abnormality Expected: 03/17/2025 (Approximate), Expires: 03/17/2026 [facility] [employer] Work Phone: Comment on above: Expected: 03/17/2025 (Approximate), Expires: 03/17/2026 Start: 03-08-2025 End: 03-08-2025 Patient encounter procedure 03/08/2025 8:20 AM EDT Office Visit [facility] [address] [place] [phone] Pepper Sexton NP [address] [place] [id number] Essential hypertension, benign (Primary Dx); Cellulitis of left lower extremity; Left leg swelling; Morbid (severe) obesity due to excess calories (CMS-HCC) [facility] Comment on above: Essential hypertensi on, benign (Primary Dx); Cellulitis of left lower extremity; Left leg swelling; Morbid (severe) obesity due to excess calories (CMS-HCC) Start: 01-06-2025 End: 01-06-2026 CBC W Auto Differential panel - Blood CBC and differential Lab Routine Gastro-esophageal reflux disease without esophagitis Expected: 01/06/2025 (Approximate), Expires: 01/06/2026 [facility] Comment on above: Expected: 01/06/2025 (Approximate), Expires: 01/06/2026 Start: 01-06-2025 End: 01-06-2026 Comprehensive metabolic 2000 panel - Serum or Plasma Comprehensive metabolic panel Lab Routine Chronic kidney disease, stage 3a (HCC) (CMS/HCC) Essential hypertension, benign (CMS/HCC) Gastro-esophageal reflux disease without esophagitis Mixed hyperlipidemia (CMS/HCC) Expected: 01/06/2025 (Approximate), Expires: 01/06/2026 [facility] Comment on above: Expected: 01/06/2025 (Approximate), Expires: 01/06/2026 Start: 01-06-2025 End: 01-06-2026 Lipid 1996 panel - Serum or Plasma Lipid panel Lab Routine Mixed hyperlipidemia (CMS/HCC) Expected: 01/06/2025 (Approximate), Expires: 01/06/2026 [facility] Work Phone: Comment on above: Expected: 01/06/2025 (Approximate), Expires: 01/06/2026 Start: 01-06-2025 End: 01-06-2026 Microalbumin/Creatinine panel in random Urine Microalbumin / creatinine, urine ratio Lab Routine Essential hypertension, benign (CMS/HCC) Expected: 01/06/2025 (Approximate), Expires: 01/06/2026 [facility] Comment on above: Expected: 01/06/2025 (Approximate), Expires: 01/06/2026 Start: 01-06-2025 End: 04-16-2026 Prostate specific Ag [Mass/volume] in Serum or Plasma PSA Lab Routine Screening for prostate cancer Expected: 01/06/2025 (Approximate), Expires: 01/06/2026 [facility] Comment on above: Expected: 01/06/2025 (Approximate), Expires: 01/06/2026 Start: 01-06-2025 End: 01-06-2026 Thyrotropin [Units/volume] in Serum or Plasma TSH Lab Routine Hypothyroidism, unspecified type (CMS/HCC) Expected: 01/06/2025 (Approximate), Expires: 01/06/2026 [facility] Comment on above: Expected: 01/06/2025 (Approximate), Expires: 01/06/2026 Start: 01-06-2025 End: 01-06-2026 Thyroxine (T4) free [Mass/volume] in Serum or Plasma T4, free Lab Routine Hypothyroidism, unspecified type (CMS/HCC) Expected: 01/06/2025 (Approximate), Expires: 01/06/2026 [facility] Comment on above: Expected: 01/06/2025 (Approximate), Expires: 01/06/2026 Start: 01-06-2025 End: 01-06-2026 Urinalysis complete panel - Urine Urinalysis with reflex microscopic (clean catch) Lab Routine Essential hypertension, benign (CMS/HCC) Expected: 01/06/2025 (Approximate), Expires: 01/06/2026 [facility] Comment on above: Expected: 01/06/2025 (Approximate), Expires: [...] type (CMS/HCC) Expected: 12/06/2024 (Approximate), Expires: 10/08/2025 [facility] Work Phone: Comment on above: Expected: 12/06/2024 (Approximate), Expires: 10/08/2025 Start: 12-06-2024 End: 10-08-2025 Thyroxine (T4) free [Mass/volume] in Serum or Plasma T4, free Lab Routine Hypothyroidism, unspecified type (CMS/HCC) Expected: 12/06/2024 (Approximate), Expires: 10/08/2025 [facility] Comment on above: Expected: 12/06/2024 (Approximate), Expires: 10/08/2025 Start: 10-22-2024 End: 10-08-2025 Magnesium [Mass/volume] in Serum or Plasma Magnesium Lab Routine Hypomagnesemia Expected: 10/22/2024 (Approximate), Expires: 10/08/2025 [facility] Comment on above: Expected: 10/22/2024 (Approximate), Expires: 10/08/2025 Start: 10-07-2024 End: 10-07-2025 Magnesium [Mass/volume] in Serum or Plasma Magnesium Lab Routine Hypomagnesemia Expected: 10/07/2024 (Approximate), Expires: 10/07/2025 [facility] Comment on above: Expected: 10/07/2024 (Approximate), Expires: 10/07/2025 Start: 10-07-2024 End: 10-07-2025 Thyrotropin [Units/volume] in Serum or Plasma TSH Lab Routine Hypothyroidism, unspecified type (CMS/HCC) Expected: 10/07/2024 (Approximate), Expires: 10/07/2025 [facility] Work Phone: Comment on above: Expected: 10/07/2024 (Approximate), Expires: 10/07/2025 Start: 10-07-2024 End: 10-07-2025 Thyroxine (T4) free [Mass/volume] in Serum or Plasma T4, free Lab Routine Hypothyroidism, unspecified type (CMS/HCC) Expected: 10/07/2024 (Approximate), Expires: 10/07/2025 [facility] Comment on above: Expected: 10/07/2024 (Approximate), Expires: 10/07/2025 Start: 10-07-2024 End: 10-07-2024 Patient encounter procedure [facility] Comment on above: GURVINDER (obstructive sle ep apnea) (Primary Dx); Morbid (severe) obesity due to excess calories ([facility]/HCC); Gastro-esophageal reflux disease without esophagitis; Body mass index (BMI) 37.0-37.9, adult; COPD mixed type (CMS/HCC); Essential hypertension, benign (CMS/HCC); Pulmonary hypertension (CMS/HCC); Hypothyroidism, unspecified type (CMS/HCC); Obesity (BMI 30-39.9); Mixed hyperlipidemia (CMS/HCC); Hypomagnesemia; Marijuana use; Pre-diabetes Start: 10-06-2024 [facility] Start: 09-04-2024 End: 09-04-2025 Basic metabolic 1998 panel - Serum or Plasma Basic metabolic panel Lab Routine Hypomagnesemia Expected: 09/04/2024 (Approximate), Expires: 09/04/2025 [facility] Comment on above: Expected: 09/04/2024 (Approximate), Expires: 09/04/2025 Start: 09-04-2024 End: 09-04-2025 Magnesium [Mass/volume] in Serum or Plasma Magnesium Lab Routine Hypomagnesemia Expected: 09/04/2024 (Approximate), Expires: 09/04/2025 [facility] Work Phone: Comment on above: Expected: 09/04/2024 (Approximate), Expires: 09/04/2025 Start: 07-09-2024 [facility] Start: 07-06-2024 End: 07-06-2024 Patient encounter procedure [facility] Comment on above: Arrived Start: 06-30-2024 End: 06-30-2024 Patient encounter procedure [facility] Comment on above: Arrived Start: 06-09-2024 End: 06-09-2025 Basic metabolic 1997 panel - Serum or Plasma Basic metabolic panel Lab Routine Hypomagnesemia Expected: 06/09/2024 (Approximate), Expires: 06/09/2025 [facility] Work Phone: Comment on above: Expected: 06/09/2024 (Approximate), Expires: 06/09/2025 Start: 06-09-2024 End: 06-09-2025 Magnesium [Mass/volume] in Serum or Plasma Magnesium Lab Routine Hypomagnesemia Expected: 06/09/2024 (Approximate), Expires: 06/09/2025 [facility] Comment on above: Expected: 06/09/2024 (Approximate), Expires: 06/09/2025 Start: 06-03-2024 End: 06-03-2024 Patient encounter procedure 06/03/2024 8:45 AM EDT Office Visit [facility] [address] [place] [address] Blank Mcfarlane NP [address] [place] [address] [facility] Start: 05-27-2024 End: 05-27-2024 Patient encounter procedure 05/27/2024 10:40 AM EDT Office Visit [facility] [place] [address] [place] [address] Karuna Carranza PA [address] [place], [place] [address] [facility] [place] [address] Start: 05-27-2024 End: 05-27-2024 Admission to same day surgery center 05/27/2024 7:30 AM EDT - 05/27/2024 8:30 AM EDT Surgery [facility] [address] [facility] [place] [address] Rupert Bo DO [address] [place] [address] DECOMPRESSION NERVE ULNAR [22603 (CPT )] [facility] Comment on above: DECOMPRESSION NERVE ULNAR [30848 (CPT )] Start: 05-27-2024 End: 05-27-2024 Neuroplasty &/transposition ulnar nerve elbow DECOMPRESSION NERVE ULNAR right ulnar neuropathy 05/27/2024 7:30 AM EDT [facility] Start: 05-27-2024 End: 05-27-2024 Patient encounter procedure 05/27/2024 7:30 AM EDT Procedure Visit [facility] Rupert Bo, DO [address] [place] [address] [facility] Start: 05-27-2024 Subsequent hospital visit by physician 05/27/2024 7:30 AM EDT Hospital Encounter [facility] [address] [facility] [place] [address] Rupert Bo, DO [address] [place] [address] [facility] Start: 05-24-2024 Influenza vaccination Influenza Vacc ine [facility] Start: 2017 Administration of varicella zoster vaccine Zoster (Shingles) Vaccine (1 of 2) [facility] Start: 1986 DTaP,Tdap and Td Vaccines (1 - Tdap) DTaP,Tdap and Td Vaccines (1 - Tdap) [facility] Start: 1985 Adult BMI Follow Up Plan Adult BMI Follow Up Plan [facility] Start: 1979 Depression Screening Depression Scre ening [facility] Start: 1967 Screening for malign ant neoplasm of colon [facility] BLOOD CULTURE 1 BLOOD CULTURE 1 Lab Routine 02/07/2025 12:02 PM EDT [facility] BLOOD CULTURE 2 BLOOD CULTURE 2 Lab Routine 02/07/2025 12:45 PM EDT [facility] Patient Education [facility] Work Phone: Renal function 1999 panel - Serum or Plasma [facility] Renal function 1999 panel - Serum or Plasma [facility] Renal function 2000 panel - Serum or Plasma [facility] Renal function 1999 panel - Serum or Plasma [facility] Payers Date Payer Category Payer Self-pay 2019 [facility] BCBS Memb er Subscriber Plan / Payer (Effective 2019-Present) Name: Abram Guillaume Relation to Subscriber: Self Name: Abram Guillaume Payer ID: Not on file Type: Not on file Address: [address] [place] [address] [id number] 2019 [facility] Managed Care - PPO ANTHEM [id number] 2019 Unknown [id number]. 1.13.693. [id number] 1967 Unknown [id number] 2.16.840.1.220856.3.579. 2.593 1967 Unknown [id number] 2.16.840.1.800547.3.579. 2.593 1967 Unknown [id number] 2.16.840.1.558361.3.579. 2.593 1967 Unknown [id number] 2.16.840.1.380372.3.579. 2.593 1967 Unknown [id number] 2.16.840.1.652052.3.579. 2.593 1967 Unknown [id number] 2.16.840.1.835562.3.579. 2.128 1967 Unknown [id number] 2.16.840.1.190329.3.579. 2.1285 1967 Unknown [id number] 2.16.840.1.410284.3.579. 2.1285 1967 Unknown [id number] 2.16.840.1.946164.3.579. 2.1285 1967 Unknown [id number] 2.16.840.1.186553.3.579. 2.1285 1967 Unknown [id number] 2.16.840.1.977329.3.579. 2.1285 1967 Unknown [id number] 2.16.840.1.803432.3.579. 2.1258 1967 Unknown [id number] 2.16.840.1.069723.3.579. 2.1258 1967 Unknown [id number] 2.16.840.1.808185.3.579. 2.1258 1967 Unknown [id number] 2.16.840.1.823815.3.579. 2.1258 1967 Unknown [id number] 2.16.840.1.286151.3.579. 2.1258 1967 Unknown [id number] 2.16.840.1.850485.3.579. 2.1258 1967 Unknown [id number] 2.16.840.1.846538.3.579. 2.1258 1967 Unknown [id number] 2.16.840.1.059279.3.579. 2.1258 1967 Unknown [id number] 2.16.840.1.287439.3.579. 2.1258 1967 Unknown [id number] 2.16.840.1.404588.3.579. 2.1259 1967 Unknown [id number] 2.16.840.1.114653.3.579. 2.1259 1967 Unknown [id number] 2.16.840.1.743393.3.579. 2.1286 1959 Unknown [id number] 1959 Unknown [id number] Unknown [place] BC/BS [id number] Unknown [id number] Unknown [id number] 2.16.840.1.581157.3.579. 2.531 Unknown [id number] 2.16.840.1.762392.3.579. 2.531 Social History Date Type Detail Facility Start: 03-19-2024 Tobacco smoking status [facility] Current some day smoker [facility] Start: 1965 Sex Assigned At Male [facility] Start: 04-30-2024 End: 06-23-2024 Tobacco smoking status [facility] Ex-smoker (finding) [facility] History of tobacco use Current smoker [...] to any clubs or organizations such as pentecostal groups, unions, fraternal or athletic groups, or [...] NHIS Never smoked tobacco (finding) [facility] Start: 04-28-2015 End: 10-06-2024 Sex Male (finding) [facility] History of tobacco use Cigarette Smoker [facility] Start: 04-27-2024 Alcohol Comment social/recreational [...] includes PVD. There is no history of CAD/OK or heart failure. Hand Pain The incident [...] Morbid (severe) obesity due to excess calories ([facility]-HCC) - Primary Discussed with patient their BMI [...] Morbid (severe) obesity due to excess calories ([facility]-HCC) Discussed with patient their BMI (actual, verses recommended). We have also discussed lifestyle modifications: attempts to perform physical activity as chronic conditions allow, also to monitor dietary intake: increasing protein/fruits/veggies and lowering carb intake (unless contraindicated). Limit sodas, juices, and sugary drinks. documented in this encounter [facility] 04-07-2025 Instructions Pepper Sexton NP - 04/07/2025 8:20 AM EDT Diclofenac cream/gel to joint on left hand Next lab draw check uric acid documented in this encounter [facility] 04-01-2025 Evaluation + Plan note Associated Problem(s): 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 ([facility]-HCC) Compression therapy leg elevation exercise. Calamine cream. We will get venous reflux ultrasound. [facility] 04-01-2025 Evaluation + Plan note Associated Problem(s): Chronic deep vein thrombosis (DVT) of popliteal vein of left lower extremity (CMS-HCC) Compression therapy venous reflux ultrasound. Calamine cream to the skin. [facility] 04-01-2025 Miscellaneous Notes Associate d Problem(s): 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 (CMS-HCC) Compression therapy leg elevation exercise. Calamine cream. We will get venous reflux ultrasound. Associated Problem(s): Chronic deep vein thrombosis (DVT) of popliteal vein of left lower extremity (CMS-HCC) Compression therapy venous reflux ultrasound. Calamine cream to the skin. documented in this encounter [facility] 04-01-2025 History of Presen t illness Narrative Images from the original note were not included. To: PEPPER SEXTON, CARL-CABLE SYSTEMS INSTALLER HPI: Abram Guillaume is a 59 y.o. [...] 05/27/2024 Performed by Rupert Bo DO at [facility] HERNIA REPAIR Bilateral inguinal LEG SURGERY [...] Resource Strain: Medium Risk (11/25/2023) Received from [facility] Overall Financial Resource Strain (CARDIA) Difficulty of Paying Living Expenses: Somewhat hard Food Insecurity: No Food Insecurity (11/25/2023) Received from [facility] Hunger Vital Sign Worried About Running Out of Food in the Last Year: Never true Ran Out of Food in the Last Year: Never true Transportation Needs: No Transportation Needs (11/25/2023) Received from [facility] PRAPARE - Transportation Lack of Transportation (Medical): No Lack of Transportation (Non-Medical): No Physical Activity: Sufficiently Active (11/25/2023) Received from [facility] Exercise Vital Sign Days of Exercise per Week: 5 days Minutes of Exercise per Session: 150+ min Stress: Stress Concern Present (11/25/2023) Received from [facility] [place] [facility] - Occupational Stress Questionnaire Feeling of Stress : To some extent Social Connections: Moderately Integrated (11/25/2023) Received from [facility] Social Connection and Isolation Panel [NHANES] Frequency of Communication with Friends and Family: Once a week Frequency of Social Gatherings with Friends and Family: Three times a week Attends Oriental Orthodox Services: Never Active Member of Clubs or Organizations: Yes Attends Club or Organization Meetings: Never Marital Status: Interpersonal Safety: Unknown (11/14/2023) Received from [facility] ([place], [place]) Safety & Environment Fear of Current or Ex-Partner: Not on file Emotionally Abused: Not on file Physically Abused: Not on file Sexually Abused: Not on file Physically or Sexually Abused: Not on file Housing Instability: Low Risk (11/25/2023) Received from [facility] Housing Stability Vital Sign Unable to Pay [...] of popliteal vein of left lower extremity ([facility]-HCC) Current Assessment & Plan Compression therapy venous [...] Future - Thigh high anti-embolism stocking Lg/Regular ([id number]) Chronic deep vein thrombosis (DVT) of popliteal vein of left lower extremity ([facility]-HCC) 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 ([facility]-HCC) Robert Kumar MD, ZAN, RPVI, FSVS, FACS [facility] This note was created with the assistance of a speech recognition program. While intending to generate a timely document that accurately reflects the content of the visit, no guarantee can be provided that every grammatical or spelling mistake has been or will be identified or corrected. Thank you for your understanding. documented in this encounter [facility] 03-08-2025 History of Presen t illness Narrative [...] Morbid (severe) obesity due to excess calories ([facility]-HCC) Discussed with patient their BMI (actual, verses [...] Morbid (severe) obesity due to excess calories ([facility]-HCC) Discussed with patient their BMI (actual, verses [...] 45 mins ago documented in this encounter [facility] 03-08-2025 Instructions Pepper Sexton NP - 03/08/2025 8:20 AM EDT Return to work as of 03/09/25 Keep fu appt with me for March [place] wrap for Left lower leg documented in this encounter [facility] 02-17-2025 History of Presen t illness Narrative Associated Problem(s): MARITZA (acute kidney injury) (CMS/HCC) Returning to baseline Associated Problem(s): Cellulitis of left lower extremity Finish atb's Off work until re assessed Elevate foot Associated Problem(s): Nicotine dependence The patient has been advised of the risks of continued smoking: stroke, OK, all forms of cancer, lung disease, and [...] of the risks of continued smoking: stroke, OK, all forms of cancer, lung disease, and [...] Returning to baseline documented in this encounter [facility] 02-17-2025 Instructions Pepper Sexton NP - 02/17/2025 4:[address] isabel referral Finish antibiotics, elevate leg Off work 2 weeks, documented in this encounter [facility] 01-06-2025 History of Presen t illness Narrative [...] compliance problems. There is no history of CAD/OK, heart failure or PVD. GERD He reports [...] amlodipine, bystolic, valsartan documented in this encounter [facility] 01-06-2025 Instructions Pepper Sexton NP - 01/06/2025 9:00 AM EDT Fasting labs due after 03/02/25 documented in this encounter [facility] 10-07-2024 History of Presen t illness Narrative [...] kidney disease. There is no history of CAD/OK. 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 Work Phone: [phone] 718-226401-14-2025 [place] [address] EGD Procedure Note Signed Patient: Abram Guillaume MR#: [id number] 4 : 1965 Acct:[id number] Age/Sex: 58 / M Adm Date: 5 Loc: Room: Type: [facility] Attending Dr: James Elaine MD Copies to: MD Pepper Wernre NP-C~ Esophagogastroduodenoscopy Date/Provider Date: 10/06/2024 James Elaine MD Procedure Findings: Procedure: EGD with biopsy Indication: 58-year-old man with history of esophagitis here for EGD to assess for Diana's Pre-operative diagnosis: History of esophagitis Post-operative diagnosis: Hanover-colored mucosa in the esophagus otherwise normal EGD [...] MD 10/06/24 0832 Signed By: 10/06/24 0834 [facility]01-14-2025 [place] [address] Gastroenterology H&P Signed Patient: Abram Guillaume MR#: [id number] 4 : 1965 Acct:[id number] Age/Sex: 58 / M Adm Date: 5 Loc: Room: Type: [facility] Attending Dr: James Elaine MD Copies [...] James Elaine MD 10/06/24830 Signed By: 10/06/2432 [facility]01-06-2025 History of Present illness Narrative * Pepper Carlie, TEST RACK OPERATOR - 09/28/2024 6:03 PM ESTAssociated Problem(s): Hypomagnesemia [...] suggestions regarding this matter. documented in this encounterUniversity [facility] Health CareYmqecszqjm21-26-5314 Procedure [facility]10-14-2024 History of Present illness Narrative* Pepper [...] scope with GI, has been off his PPI/M3lqerzwox for up coming EGD etc Continue with [...] scope with GI, has been off his PPI/B4lamddfha for up coming EGD etc Continue with GI Essential hypertension, benign (CMS/HCC) - Primary At goal no med dose chagnes Hypothyroidism (CMS/HCC) No med dose changes Hypomagnesemia Continue with TID magnesium and fu with Nephrology Relevant Medications magnesium oxide (Mag-Ox) 400 MG tablet Obesity (BMI 30-39.9) Needs flu shot declines documented in this encounterUniversity [facility] [place] Health CareOfkmolwznd57-23-7886 History of Present illness Narrative* Rupert Bo, [...] Dr. Bo/lloyd Bo D.O. documented in this encounterUniversity of [facility] Health CareCkvpefephx48-12-9754 Telephone encounter Note* Telephone Encounter - DEBI Cho - 06/09/2024 12:22 PM EDT Spoke with patient and he will RTW tomorrow with light duty [facility] Work Phone: [phone] 397-780809-17-2024 Miscellaneous Notes* Telephone Encounter - DEBI Cho [...] questions, if you could call him at [phone] documented in this encounterUniversity [facility] CareNlkqeysqvz14-28-7993 Telephone encounter Note* Telephone Encounter - DEBI Cho - 06/09/2024 12:16 PM EDT Spoke with patient and answered questions, he would like to RTW tomorrow with restrictions, spoke with Dr Bo and he said that was fine [facility] CareMlvadjxjyz60-35-4434 Telephone encounter Note* Telephone Encounter - Sarah Marshall - 06/09/2024 12:13 PM EDT Pt called and left vm stated he has PO questions, if you could call him at [phone] [facility] CareBcajqonwzh03-81-0877 History of Present illness Narrative* Blank Mcfarlane [...] weeks, continue off work documented [facility]Ebasdzavkv50-21-5998 Telephone encounter Note* Telephone Encounter - Tiburcio Noel NP - 05/26/2024 12:16 PM EDT Post op pain rx. PDMP reviewed [facility] CareTpkusybmlk46-06-6869 Miscellaneous Notes* Telephone Encounter - Tiburcio Noel NP - 05/26/2024 12:16 PM EDT Post op pain rx. PDMP reviewed documented in this encounterUniversity of [place] Health CareDwvcyeyndk29-42-9883 Instructions* Patient Instructions* Ora Delvalle RN - 04/27/2024 8:15 AM EDT Preoperative Education Checklist- General Surgery date: 05/27/24 Surgery time: 0730 a.m. Arrival time: 0610 a.m. 1. Bring a photo ID and your insurance card with you the day of surgery. You will check in at the main lobby of the [facility]- registration desk is straight ahead as soon as you walk in. Tell them you are here for surgery. 2. If you have a Living Will/Durable Power of Cook Mess for Health Care that is not on [...] after you have bathed. 5. NO nail romanian/acrylic on at least one finger. If you are having a hand, wrist or foot surgery then all nail romanian and artificial/acrylic nails must be removed from [...] please call the Preadmission Testing office at [phone], Mon.-Fri. 7 a.m.-3 p.m. Leave a voicemail [...] appointment with your doctor. [facility] Miscellaneous Notes* Perioperative Nursing Note - Ora Delvalle RN - 04/27/2024 8:15 AM EDT Preoperative Education Checklist- General Surgery date: 05/27/24 Surgery time: 0730 a.m. Arrival time: 0610 a.m. 1. Bring a photo ID and your insurance card with you the day of surgery. You will check in at the main lobby of the [facility]- registration desk is straight ahead as soon as you walk in. Tell them you are here for surgery. 2. If you have a Living Will/Durable Power of Cook Mess for Health Care that is not on [...] after you have bathed. 5. NO nail romanian/acrylic on at least one finger. If you are having a hand, wrist or foot surgery then all nail romanian and artificial/acrylic nails must be removed from [...] please call the Preadmission Testing office at [phone], Mon.-Fri. 7 a.m.-3 p.m. Leave a voicemail [...] reviewed. Patient verbalized understanding. documented in [facility] encounter[facility] Nurse Note* Perioperative Nursing Note - Ora Delvalle RN - 04/27/2024 8:15 AM EDT Preoperative Education Checklist- General Surgery date: 05/27/24 Surgery time: 0730 a.m. Arrival time: 0610 a.m. 1. Bring a photo ID and your insurance card with you the day of surgery. You will check in at the main lobby of the [facility]- registration desk is straight ahead as soon as you walk in. Tell them you are here for surgery. 2. If you have a Living Will/Durable Power of Cook Mess for Health Care that is not on [...] after you have bathed. 5. NO nail romanian/acrylic on at least one finger. If you are having a hand, wrist or foot surgery then all nail romanian and artificial/acrylic nails must be removed from [...] please call the Preadmission Testing office at [phone], Mon.-Fri. 7 a.m.-3 p.m. Leave a voicemail [...] to the follow-up appointment with your doctor. [facility] Nurse Note* Perioperative Nursing Note - Ora Delvalle RN - 04/27/2024 8:15 AM EDT Hibiclens and surgical instructions reviewed. Patient verbalized understanding. [facility]* Diagnosis Onset Date Resolution Status GERD (gastroesophageal reflux disease) acute Hypomagnesemia acute Primary hypertension [facility] Work Phone: Evaluation note* Diagnosis Onset Date Resolution Status GERD (gastroesophageal reflux disease) acute Hypomagnesemia acute Primary hypertension acute Dyspepsia acute GERD (gastroesophageal reflux disease) [facility] Work Phone: Evaluation note* Diagnosis Restless [...] (CMS/HCC) Essential hypertension, benign Essential (primary) hypertension ([facility]/HCC)- Primary Unspecified essential hypertension Morbid (severe) obesity due to excess calories ([facility]) Body mass index (BMI) 38.0-38.9, adult Obesity (BMI 30-39.9) Cigarette nicotine dependence without complication Gastroesophageal reflux disease, unspecified whether esophagitis present Hypomagnesemia Disorders of magnesium metabolism Pre-operative clearance- Primary Unspecified pre-operative examination Hypomagnesemia Disorders of magnesium metabolism Restless legs syndrome Restless legs syndrome (RLS) COPD with acute exacerbation ([facility]) Chronic bronchitis, unspecified chronic bronchitis type ([facility]/HCC) Essential hypertension, benign ([facility]/HCC) Essential hypertension, benign Gastroesophageal reflux disease, unspecified whether esophagitis present GURVINDER (obstructive sleep apnea) Obstructive sleep apnea (adult) (pediatric) Pulmonary hypertension ([facility]/HCC) Other chronic pulmonary heart diseases LV dysfunction Left heart failure Essential hypertension, benign ([facility]/HCC)- Primary Essential hypertension, benign Hypomagnesemia Disorders of magnesium metabolism Gastroesophageal reflux disease, unspecified whether esophagitis present Obesity (BMI 30-39.9) Hypothyroidism, unspecified type (CMS/HCC) Needs flu shot Need for prophylactic vaccination and inoculation against influenza Hypomagnesemia- Primary Disorders of magnesium metabolism documented in this encounter [facility] HealthcareEvaluation note* Diagnosis Post-operative pain- Primary Other [...] of magnesium metabolism documented in this encounter [facility] HealthcareEvaluation note* Diagnosis Essential hypertension, benign [...] myalgia and myositis documented in this encounter [facility] HealthcareEvaluation note* Diagnosis Essential hypertension, [...] of magnesium metabolism documented in this encounter [facility] HealthcareEvaluation noteNo assessment information availableKettering [facility] Work Phone: Evaluation note* Diagnosis Essential [...] of magnesium metabolism documented in this encounter [facility] HealthcareEvaluation note* Diagnosis Essential hypertension, benign [...] Morbid (severe) obesity due to excess calories ([facility]) Body mass index (BMI) 38.0-38.9, adult Obesity (BMI 30-39.9) Cigarette nicotine dependence without complication Gastroesophageal reflux disease, unspecified whether esophagitis present Hypomagnesemia Disorders of magnesium metabolism Pre-operative clearance- Primary Unspecified pre-operative examination Hypomagnesemia Disorders of magnesium metabolism Restless legs syndrome Restless legs syndrome (RLS) COPD with acute exacerbation ([facility]) Chronic bronchitis, unspecified chronic bronchitis type ([facility]/HCC) Essential hypertension, benign (CMS/HCC) Essential hypertension, benign Gastroesophageal reflux disease, unspecified whether esophagitis present GURVINDER (obstructive sleep apnea) Obstructive sleep apnea (adult) (pediatric) Pulmonary hypertension ([facility]/HCC) Other chronic pulmonary heart diseases LV dysfunction Left heart failure Essential hypertension, benign (CMS/HCC)- Primary Essential hypertension, benign Hypomagnesemia Disorders of magnesium metabolism Gastroesophageal reflux disease, unspecified whether esophagitis present Obesity (BMI 30-39.9) Hypothyroidism, unspecified type ([facility]/HCC) Needs flu shot Need for prophylactic vaccination and inoculation against influenza Hypomagnesemia- Primary Disorders of magnesium metabolism Essential hypertension, benign ([facility]/HCC)- Primary Essential hypertension, benign Morbid (severe) obesity due to excess calories ([facility]/HCC) Gastro-esophageal reflux disease without esophagitis Body mass index (BMI) 37.0-37.9, adult GURVINDER (obstructive sleep apnea) Obstructive sleep apnea (adult) (pediatric) COPD mixed type ([facility]/HCC) Pulmonary hypertension ([facility]/HCC) Other chronic pulmonary heart diseases Hypothyroidism, unspecified type ([facility]/HCC) Obesity (BMI 30-39.9) Mixed hyperlipidemia (CMS/HCC) Mixed hyperlipidemia Hypomagnesemia Disorders of magnesium metabolism Marijuana use Pre-diabetes Other abnormal glucose Chronic bronchitis, unspecified chronic bronchitis type (CMS/HCC) Hypomagnesemia Disorders of magnesium metabolism Restless legs syndrome Restless legs syndrome (RLS) documented in this encounter [facility] HealthcareEvaluation note* Diagnosis Preop examination- Primary Unspecified pre-operative examination Hypertension, unspecified type [facility]* Diagnosis Onset Date Resolution Status Admit Date GERD (gastroesophageal reflu x disease) acute December 02, 2024 1:43pm Hypomagnesemia acute November 1:43pm Primary hypertension acute [facility] 2024 1:43pm [facility] Work Phone: Evaluation note* Diagnosis Essential [...] Morbid (severe) obesity due to excess calories ([facility]/HCC) Body mass index (BMI) 38.0-38.9, adult Obesity [...] Disorders of magnesium metabolism Essential hypertension, benign ([facility]/HCC)- Primary Essential hypertension, benign Morbid (severe) obesity due to excess calories ([facility]/HCC) Gastro-esophageal reflux disease without esophagitis Body mass [...] Morbid (severe) obesity due to excess calories ([facility]) Mixed hyperlipidemia Mixed hyperlipidemia Hypomagnesemia Disorders of [...] Morbid (severe) obesity due to excess calories ([facility]) Body mass index (BMI) 38.0-38.9, adult [...] Morbid (severe) obesity due to excess calories ([facility]) Gastro-esophageal reflux disease without esophagitis Body [...] hypertension, benign Chronic kidney disease, stage 3a ([facility]) Gastro-esophageal reflux disease without esophagitis Morbid (severe) obesity due to excess calories ([facility]-HCC) Mixed hyperlipidemia Mixed hyperlipidemia Hypomagnesemia Disorders of magnesium metabolism Screening for prostate cancer Special screening for malignant neoplasm of prostate Marijuana use Hypothyroidism, unspecified type Fibromyalgia Unspecified myalgia and myositis Cellulitis of left lower extremity- Primary Essential hypertension, benign Essential hypertension, benign Morbid (severe) obesity due to excess calories ([facility]) Hypomagnesemia Disorders of magnesium metabolism Cigarette nicotine dependence without complication MARITZA (acute kidney injury) Left leg swelling Cellulitis of left lower extremity- Primary Essential hypertension, benign Essential hypertension, benign Left leg swelling Morbid (severe) obesity due to excess calories ([facility]-HCC) Chronic bronchitis, unspecified chronic bronchitis type (HCC) Restless legs syndrome Restless legs syndrome (RLS) Atopic dermatitis, unspecified type Electrolyte abnormality- Primary Electrolyte and fluid disorders not elsewhere classified documented in this encounter [facility] HealthcareEvaluation note* Diagnosis Chronic venous insufficiency- Primary Unspecified venous (peripheral) insufficiency Chronic deep vein thrombosis (DVT) of popliteal vein of left lower extremity ([facility]-HCC) 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 ([facility]) documented [facility]* Diagnosis Onset Date Resolution Status Admit Date GERD (gastroesophageal reflu x disease) acute April 06, 2025 2:37pm Hypomagnesemia acute April 06, 2025 2:37pm Primary hypertension acute April 06, 2025 2:37pm [facility] Work Phone: Evaluation note* Diagnosis Essential [...] Morbid (severe) obesity due to excess calories ([facility]-HCC) Body mass index (BMI) 38.0-38.9, adult Obesity [...] Morbid (severe) obesity due to excess calories ([facility]) Gastro-esophageal reflux disease without esophagitis Body [...] HealthcareHistory and physical note Author James Elaine [facility] July 09, 2024 1:12pm Note Date/Time July 09, 2024 1 :12pm [facility] ENTER [address] [place] [address] Gastroenterology H&P Signed Patient: Abram Guillaume MR#: [id number] 4 : 1965 Acct:[id number] Age/Sex: 58 / M Adm Date: 4 Loc: Room: Type: [facility] Attending Dr: James Elaine MD Copies [...] signed by James Elaine MD> 07/09/24 1312 [facility] Work Phone: Hospital Discharge instructions Additional [...] -Continue omeprazole 40 mg daily -Office number [phone]. [facility] Work Phone: InstructionsNot on filedocumented in this encounter [facility] (narrative)No reason for referral information availableC[facility] Work Phone: Summary Purpose Family History [...] ECG 12 lead Rupert Bo DO [address] [place] [address] Referral ID Status Reason Start Date Expiration Date V isits Requested Visits Authorized [id number] Pending Review 04/23/2024 04/23/2025 1 1 Additional Source Comments (unrecognized sect ion and content) No Status Records FoundNo Status Records FoundNo Status Records FoundNo Status Records FoundNo Status Records FoundNo Status Records Found INFORMATION SOURCE (unrecogn ized section and content) DATE CREATED AUTHOR 05/18/2022 [facility] DATE CREATED AUTHOR AUTHOR'S ORGANIZ ATION 07/22/2022 [facility] DATE CREATED AUTHOR AUTHOR'S ORGANIZ ATION 05/28/2024 [facility] DATE CREATED AUTHOR AUTHOR'S ORGANIZ ATION 10/16/2024 [facility] DATE CREATED AUTHOR AUTHOR'S ORGANIZ ATION 03/09/2025 [facility] EPIC DATE CREATED AUTHOR [...] June 23, 2024 End: June 23, 2024 Engineer Rf Deployment Relationship Specialty Start Date End Date Anastacio Hinojosa MD [address] [place] [phone] PCP - General Family Medicine 11/26/23 Pepper Sexton NP [address] [place] [phone] [facility] 04/23/24 Pepper Sexton NP [address] [place] [phone] Nurse Practitioner Family Medicine 11/26/23 Team Status: Inactive Member Role Status Dates Pepper Sexton Primary Care Provider Active Sta rt: June 24, 2024 End: June 24, 2024 Dav Swanson APRN Attending Provider Active Start: June 24, 2024 End: June 24, 2024 Engineer Rf Deployment Relationship Specialty Start Date End Date Anastacio Hinojosa MD [address] [place] [phone] PCP - General Family Medicine 11/26/23 Pepper Sexton NP [address] [place] [phone] PCP - [facility] 04/23/24 Pepper Sexton NP [address] [place] [phone] Nurse Practitioner Family Medicine 11/26/23 Engineer Rf Deployment Relationship Specialty Start Date End Date Anastacio Hinojosa MD [address] [place] [phone] PCP - General Family Medicine 11/26/23 Pepper Sexton NP [address] [place] [phone] PCP - [facility] 04/23/24 Pepper Sexton NP [address] [place] [phone] Nurse Practitioner Family Medicine 11/26/23 Engineer Rf Deployment Relationship Specialty Start Date End Date Anastacio Hinojosa MD [address] [place] [phone] PCP - General Family Medicine 11/26/23 Pepper Sexton NP [address] [place] [phone] PCP - [facility] 04/23/24 Pepper Sexton NP [address] [place] [phone] Nurse Practitioner Family Medicine 11/26/23 Engineer Rf Deployment Relationship Specialty Start Date End Date Anastacio Hinojosa MD [address] [place] [phone] PCP - General Family Medicine 11/26/23 Pepper Sexton NP [address] [place] [phone] PCP - [facility] 04/23/24 Pepper Sexton NP [address] [place] [address] Nurse Practitioner Family Medicine 11/26/23 Engineer Rf Deployment Relationship Specialty Start Date End Date Anastacio Hinojosa MD [address] [place] [phone] PCP - General Family Medicine 11/26/23 Pepper Sexton NP [address] [place] [phone] PCP - [facility] 04/23/24 Pepper Sexton NP [address] [place] [phone] Nurse Practitioner Family Medicine 11/26/23 Team Status: [...] Other Provider Active Start: July 09, 2024 Engineer Rf Deployment Relationship Specialty Start Date End Date Anastacio Hinojosa MD [address] [place] [phone] PCP - General Family Medicine 11/26/23 Pepper Sexton NP [address] [place] [phone] PCP - [facility] 04/23/24 Pepper Sexton NP [address] [place] [phone] Nurse Practitioner Family Medicine 11/26/23 Engineer Rf Deployment Relationship Specialty Start Date End Date Anastacio Hinojosa MD [address] [place] [phone] PCP - General Family Medicine 11/26/23 Pepper Sexton NP [address] [place] [phone] PCP - [facility] 04/23/24 Pepper Sexton NP [address] [place] [phone] Nurse Practitioner Family Medicine 11/26/23 Engineer Rf Deployment Relationship Specialty Start Date End Date Anastacio Hinojosa MD [address] [place] [phone] PCP - General Family Medicine 11/26/23 Pepper Sexton NP [address] [place] [phone] PCP - [facility] 04/23/24 Pepper Sexton NP [address] [place] [address] Nurse Practitioner Family Medicine 11/26/23 Engineer Rf Deployment Relationship Specialty Start Date End Date Anastacio Hinojosa MD [address] [place] [address] PCP - General Family Medicine 11/26/23 Pepper Sexton NP [address] [place] [address] Nurse Practitioner Family Medicine 11/26/23 Engineer Rf Deployment Relationship Specialty Start Date End Date Anastacio Hinojosa MD [address] [place] [address] PCP - General Family Medicine 11/26/23 Pepper Sexton NP [address] [place] [address] PCP - [employer] 04/23/24 Pepper Sexton NP [address] [place] [address] Nurse Practitioner Family Medicine 11/26/23 Engineer Rf Deployment Relationship Specialty Start Date End Date Anastacio Hinojosa MD [address] [place] [address] PCP - General Family Medicine 11/26/23 Pepper Sexton NP [address] [place] [address] PCP - [employer] 04/23/24 Pepper Sexton NP [address] [place] [address] Nurse Practitioner [facility] Medicine 11/26/23 Team Status: Inactive Member Role [...] Other Provider Active Start: October 06, 2024 Engineer Rf Deployment Relationship Specialty Start Date End Date Anastacio Hinojosa MD [address] [place] [address] PCP - General Family Medicine 11/26/23 Pepper Sexton NP [address] [place] [address] PCP - [employer] 04/23/24 Pepper Sexton NP [address] [place] [address] Nurse Practitioner Family Medicine 11/26/23 Engineer Rf Deployment Relationship Specialty Start Date End Date Anastacio Hinojosa MD [address] [place] [address] PCP - General Family Medicine 11/26/23 Pepper Sexton NP [address] [place] [address] PCP - [employer] 04/23/24 Pepper Sexton NP [address] [place] [address] Nurse Practitioner Family Medicine 11/26/23 Engineer Rf Deployment Relationship Specialty Start Date End Date Anastacio Hinojosa MD [address] [place] [address] PCP - General Family Medicine 11/26/23 Pepper Sexton NP [address] [place] [address] PCP - [employer] 04/23/24 Pepper Sexton NP [address] [place] [address] Nurse Practitioner Family Medicine 11/26/23 Engineer Rf Deployment Relationship Specialty Start Date End Date Anastacio Hinojosa MD [address] [place] [address] PCP - General Family Medicine 11/26/23 Pepper Sexton NP [address] [place] [address] PCP - [employer] 04/23/24 Pepper Sexton NP [address] [place] [address] Nurse Practitioner Family Medicine 11/26/23 Engineer Rf Deployment Relationship Specialty Start Date End Date Anastacio Hinojosa MD [address] [place] [address] PCP - General Family Medicine 11/26/23 Pepper Sexton NP [address] [place] [address] PCP - [employer] 04/23/24 Pepper Sexton NP [address] [place] [address] Nurse Practitioner Family Medicine 11/26/23 Engineer Rf Deployment Relationship Specialty Start Date End Date Anastacio Hinojosa MD [address] [place] [address] PCP - General Family Medicine 11/26/23 Pepper Sexton NP [address] [place] [address] PCP - [employer] 04/23/24 Pepper Sexton NP [address] [place] [address] Nurse Practitioner Family Medicine 11/26/23 Engineer Rf Deployment Relationship Specialty Start Date End Date Pepper Sexton, DIE TRY OUT WORKER-CABLE SYSTEMS INSTALLER [address] [place] [address] PCP - General Nurse Practitioner 05/10/22 Team [...] December 02, 2024 End: December 02, 2024 Engineer Rf Deployment Relationship Specialty Start Date End Date Anastacio Hinojosa MD [address] [place] [address] PCP - General Family Medicine 11/26/23 Pepper Sexton NP [address] [place] [address] PCP - [employer] 04/23/24 Pepper Sexton NP [address] [place] [address] Nurse Practitioner Family Medicine 11/26/23 Engineer Rf Deployment Relationship Specialty Start Date End Date Anastacio Hinojosa MD [address] [place] [address] PCP - General Family Medicine 11/26/23 Pepper Sexton NP [address] [place] [address] PCP - [facility] 04/23/24 Pepper Sexton NP [address] [place] [address] Nurse Practitioner Family Medicine 11/26/23 Engineer Rf Deployment Relationship Specialty Start Date End Date Anastacio Hinojosa MD [address] [place] [address] PCP - General Family Medicine 11/26/23 Pepper Sexton NP [address] [place] [address] Nurse Practitioner Family Medicine 11/26/23 Engineer Rf Deployment Relationship Specialty Start Date End Date Anastacio Hinojosa MD [address] [place] [address] PCP - General Family Medicine 11/26/23 Pepper Sexton NP [address] [place] [address] Nurse Practitioner Family Medicine 11/26/23 Engineer Rf Deployment Relationship Specialty Start Date End Date Anastacio Hinojosa MD [address] [place] [address] PCP - General Family Medicine 11/26/23 Pepper Sexton NP [address] [place] [address] Nurse Practitioner Family Medicine 11/26/23 Engineer Rf Deployment Relationship Specialty Start Date End Date Anastacio Hinojosa MD [address] [place] [address] PCP - General Family Medicine 11/26/23 Pepper Sexton NP [address] [place] [address] Nurse Practitioner Family Medicine 11/26/23 Engineer Rf Deployment Relationship Specialty Start Date End Date Anastacio Hinojosa MD [address] [place] [address] PCP - General Family Medicine 11/26/23 Pepper Sexton NP [address] [place] [address] Nurse Practitioner Family Medicine 11/26/23 Engineer Rf Deployment Relationship Specialty Start Date End Date Anastacio Hinojosa MD [address] [place] [address] PCP - General Family Medicine 11/26/23 Pepper Sexton NP [address] [place] [address] Nurse Practitioner Family Medicine 11/26/23 Engineer Rf Deployment Relationship Specialty Start Date End Date Anastacio Hinojosa MD [address] [place] [address] PCP - General Family Medicine 11/26/23 Pepper Sexton NP [address] [place] [address] Nurse Practitioner Family Medicine 11/26/23 Engineer Rf Deployment Relationship Specialty Start Date End Date Anastacio Hinojosa MD [address] [place] [address] PCP - General Family Medicine 11/26/23 Pepper Sexton NP [address] [place] [address] Nurse Practitioner Family Medicine 11/26/23 Engineer Rf Deployment Relationship Specialty Start Date End Date Anastacio Hinojosa MD [address] [place] [address] PCP - General Family Medicine 11/26/23 Pepper Sexton NP [address] [place] [address] Nurse Practitioner Family Medicine 11/26/23 Engineer Rf Deployment Relationship Specialty Start Date End Date Pepper Sexton, DIE TRY OUT WORKER-CABLE SYSTEMS INSTALLER PCP - General Nurse Practitioner 05/10/22 Engineer Rf Deployment Relationship Specialty Start Date End Date Anastacio Hinojosa MD [address] [place] [address] PCP - General Family Medicine 11/26/23 Pepper Sexton NP [address] [place] [address] Nurse Practitioner Family Medicine 11/26/23 Engineer Rf Deployment Relationship Specialty Start Date End Date Anastacio Hinojosa MD [address] [place] [address] PCP - General Family Medicine 11/26/23 Pepper Sexton NP [address] [place] [address] Nurse Practitioner Family Medicine 11/26/23 [...] left lower extremity Left leg swelling Procedures DE OFFICE OUTPATIENT VISIT 60-74 MINS HIGH MDM [id number] (SNOMED CT) - AMB REFERRAL TO VASCULAR SURGERY Pepper Sexton, DIE TRY OUT WORKER-CABLE SYSTEMS INSTALLER Phone: tel: fax: Fátima Isabel MD [address], [address] [address] Phone: tel:[phone] fax: Referral ID Status Reason Start Date Expiration Date V isits Requested Visits Authorized [id number] Pending Review 03/08/2025 09/04/2025 1 1 FOR [...] BE BASED ON THE PRIMARY CLINICAL RECORDS. [facility]. provides no warranty or guarantee of the accuracy or completeness of information in this document.
[2025-04-13 09:02] LABS: Albumin Level 3.2 g/dL (3.4-5.0); Anion Gap 13.5; Blood Urea Nitrogen 20.0 mg/dL (7.0-18.0); Calcium 7.5 mg/dL (8.5-10.1); Carbon Dioxide 29.4 mmol/L (21.0-32.0); Chloride 107 mmol/L (98-107); Estimated GFR (African America >60 (>=60 mL/min/1.73m^2); Estimated GFR (Non-African Ame >60 (>=60 mL/min/1.73m^2); Glucose 101 mg/dL (74-106); Potassium 3.9 mmol/L (3.5-5.1); Sodium 146 mmol/L (136-145)
[2025-04-13 09:28] LABS: Magnesium 0.5 mg/dL (1.8-2.4)
== END 2025-04-13 08:20 | disposition home or self-care (01) ==
LOC: LAB 08:21
PROVIDERS: PCP Nurse Practitioner; Visit Provider Internal Medicine Nephrology
DX: E83.42 Hypomagnesemia (principal); K21.00 Gastro-esophageal reflux disease with esophagitis, without bleeding; I10 Essential (primary) hypertension
CPT/HCPCS: 36415; 80069; 83735

== ENCOUNTER 2025-04-13 16:27 | Emergency (ER) | payer BC, SELFPAY ==
--- OUTSIDE RECORDS SUMMARY | 2023-11-22 06:00 | XMS_ITS ---
Author Organization The [facility] in [place] Address [address] [place] [address] Care Team Providers Care Industrial Safety And Health Specialist Name Role Phone Pepper Sexton CNP Primary Care Provider Unavail Krystyna Quinteros [phone] REASON FOR VISIT earlier day Encounters Encounter Location Date Provider Diagnosis [facility] Immunology [address] [place] [address] 11/22/2023 Krystyna Caputo Plan Of Treatment No Information Progress Notes * Abram GUILLAUME ADOB:1965 ( 59 yo M)Acc No.[id number]:11/22/2023 UNLOCKED PROGRESS NOTE Progress Notes Patient: Abram HERNANDEZ Provider: Radames Caputo CNP :1965 A ge:58 Y S ex:Male Date:11/22/2023 Address:[address] [place], [place] [phone] Pcp:Pepper Sexton CNP Subjective: * Chief Complaints: * 1 . Earlier day. * Medical History: Objective: * Vitals: Assessment: Plan: * Treatment: * * Electronic signature of Tamela Caputo on 04/13/2025 at 04:32 PM EDT Sign off status: Pending Visit Status: R /S (Rescheduled) * Provider: Radames Caputo CNP Date: 11/22/2023 Generated for Printi ng/Faxing/eTransmitting on: 0 04/13/2025 04:32 PM EDT
[2025-04-13] VITALS (16 sets, daily range): BP systolic 145–179; BP diastolic 89–100; PULSE 96–109; TEMP 36.5; O2SAT 87–94; BMI 38.4
--- OUTSIDE RECORDS SUMMARY | 2025-04-13 16:32 | XMS_ITS | Encounter Summary ---
Author Organization [facility] Address [address] [place] [address] Care Team Providers Care School Psychologist Name Role Phone Anastacio Hinojosa MD Primary Care Provider [phone] Pepper Sexton MEDICARE NURSE Unavailable [phone] Pepper Sexton MEDICARE NURSE Unavailable [phone] Encounter Details Date Type Department Care Team (Late st Contact Info) Description 06/09/2024 Orders Only [facility] [address] [place] [address] Pepper Sexton NP [address] [place] [address] Hypothyroidism, unspecified type (Primary Dx); Pre-diabetes Social [...] How often do you attend chur or methodist services? Never 11/25/2023 Do you belong to any clubs o r organizations such as mandaen groups, unions, fraternal or athletic groups, or [...] Recorded Patient Health Questionnaire-2 Score 0 11/26/2023 [facility] - Occupational Stress Questionnaire Answer Date Recorded [...] Care Team (Late st Contact Info) Description 05/05/2025 8:20 AM EDT Office Visit [facility] [address] [place] [address] Pepper Sexton NP [address] [place] [address] documented as of this encounter Visit Diagnoses Diagnosis Hypothyroidism, unspecified type- Primary Pre-diabetes Other abnormal glucose documented in this encounter Care Teams School Psychologist Relationship Specialty Start Date End Date Anastacio Hinojosa MD [address] [place] [address] PCP - General Family Medicine 11/26/23 Pepper Sexton NP [address] [place] [address] PCP - [place] [employer] 04/23/24 Pepper Sexton NP [address] [place] [address] Nurse Practitioner Family Medicine 11/26/23 documented as of this encounter
--- OUTSIDE RECORDS SUMMARY | 2025-04-13 16:32 | XMS_ITS | Encounter Summary ---
Author Organization [facility] angelMD [facility] tem Address [id number] [address] [place] [address] Care Team Providers Care Fruit Or Nut Crops Farm Manager Name Role Phone JavierPepper rios Liam HENRY-WEB OPERATIONS ADMINISTRATOR Primary Care Provider Encounter Details Date Type Department Care Team (Late st Contact Info) Description 05/10/2022 Orders Only [facility] Physicians Cardiology [address] [place] [facility] [address] [place] [address] External, Scanning Provider Social History [...] Care Team (Late st Contact Info) Description 04/20/2025 9:00 AM EDT Appointment [facility] - Vascular [address] [place] [address] Robert Kumar MD [address], [address] [address] 04/29/2025 8:50 AM EDT [facility] [place] [address] [place] [address] Robert Kumar MD [address], [address] [address] documented as of this encounter Procedures Procedure Name Priority Date/Time Associated Diagnosis Comments ECHO COMPLETE WO CONTRAST Routine 02/27/2022 documented in this encounter Results * Echo complete W/O contrast (02/27/2022) Anatomical Region Laterality Modality Chest N/A Ultrasound us Scanning Provider External CV ECHO ORDERABLES Fi nal Result documented in this encounter Visit Diagnoses Not on filedocumented in this encounter Care Teams Fruit Or Nut Crops Farm Manager Relationship Specialty Start Date End Date Pepper Sexton, PET STYLIST-WEB OPERATIONS ADMINISTRATOR PCP - General Nurse Practitioner 05/10/22 documented as of this encounter
--- OUTSIDE RECORDS SUMMARY | 2025-04-13 16:33 | XMS_ITS | Encounter Summary ---
Author Organization [facility] Address [address] [place] [address] Care Team Providers Care Rock Cutter Name Role Phone Anastacio Hinojosa MD Primary Care Provider [phone] Pepper Sexton POEM WRITER Unavailable [phone] Pepper Sexton POEM WRITER Unavailable [phone] Encounter Details Date Type Department Care Team (Late st Contact Info) Description 10/06/2024 Orders Only [facility] [address] [place] [address] James Elaine MD [address] [facility] [address] [place] [address] Social History Tobacco Use Types Packs/Day Years [...] often do you attend chur ch or adventist services? Never 11/25/2023 Do you belong to any clubs o r organizations such as yazidism groups, unions, fraternal or athletic groups, or [...] Recorded Patient Health Questionnaire-2 Score 0 11/26/2023 [facility] - Occupational [...] Office Visit [facility] [address] [place] [address] Pepper Sexton NP [address] [place] [address] documented as of this encounter Procedures Procedure Name Priority Date/Time Associated Diagnosis Comments SCANNED LABS Routine 10/06/2024 10:55 AM EST documented in this encounter Results * SCANNED LABS (10/06/2024 10:55 AM EST) James Elaine MD LAB CHG PERFORMABLES Final Resul t documented in this encounter Visit Diagnoses Not on filedocumented in this encounter Care Teams Rock Cutter Relationship Specialty Start Date End Date Anastacio Hinojosa MD [address] [place] [address] PCP - General Family Medicine 11/26/23 Pepper Sexton NP [address] [place] [address] PCP - [employer] [employer] 04/23/24 Pepper Sexton NP [address] [place] [address] Nurse Practitioner Family Medicine 11/26/23 documented as of this encounter
--- OUTSIDE RECORDS SUMMARY | 2025-04-13 16:33 | XMS_ITS | Encounter Summary ---
Author Organization [facility] Address [address] [facility] [place] [address] Care Team Providers Care Customs Consultant Name Role Phone Anastacio Hinojosa MD Primary Care Provider [phone] Pepper Sexton TRANSVERSE ABDOMINAL MUSCLE NURSE Unavailable [phone] Encounter Details Date Type Department Care Team ([facility] st Contact Info) Description 02/08/2025 [facility] [address] [facility] [place] [address] Angelo Morales MD [address] [place] [address] Social History Tobacco Use Types [...] often do you attend chur ch or orthodoxy services? Never 11/25/2023 Do you belong to any clubs o r organizations such as episcopalian groups, unions, fraternal or athletic groups, or [...] Patient Health Questionnaire-2 Score 0 11/26/2023 [facility] Occupat ional Health - Occupational Stress [...] [facility] [address] [place] [address] Pepper Sexton NP [address] [place] [address] documented as of this encounter Procedures Procedure Name Priority Date/Time Associated Diagnosis Comments US, RETROPERITNL ABD, LTD Routine 2024 12:06 PM EDT documented in this encounter Results * Retroperitoneal Ultrasound, Abdomen Ltd (02/08/2025 12:06 PM EDT) us Angelo Morales MD IN CLINIC/BEDSIDE ORDERABLES Fi nal Result documented in this encounter Visit Diagnoses Not on filedocumented in this encounter Care Teams Customs Consultant Relationship Specialty Start Date End Date Anastacio Hinojosa MD [address] [place] [address] PCP - General Family Medicine 11/26/23 Pepper Sexton NP [address] [place] [address] Nurse Practitioner Family Medicine 11/26/23 documented as of this encounter
--- OUTSIDE RECORDS SUMMARY | 2025-04-13 16:33 | XMS_ITS | Clinical Summary ---
Author Organization [facility] tem Address [id number] [address] [place] [address] Care Team Providers Care Wire Puller Name Role Phone Pepper Sexton APRN-LOCATION AND MEASUREMENT TECHNICIAN Primary Care Provider Allergies No known active [...] by mouth in the morning. 2 Active budesonide-formot Jameel (SYMBICORT) 80-4.5 mcg/actuation inhalerIndication s:Mild persistent asthma without complication Inhale 2 puffs in the morning and 2 puffs before bedtime. 10.2 g 12 2 Active albuterol (PROVENTIL HFA;VENTOLIN HFA) 90 mcg/actuation inhalerIndication s:Mild persistent asthma without complication Inhale 2 puffs [...] 1 tablet (400 mg total) before bedtime. Active ibuprofen (ADVIL,MOTRIN) 200 mg tablet Take 1 tablet (200 mg total) by mouth every 6 (six) hours as needed for pain. Active acetaminophen (TYLENOL ARTHRITIS) 650 mg 8 hr tablet Take 1 tablet (650 mg total) by mouth every 8 (eight) hours as needed for pain. Active Active Problems Problem Noted Date Diagnosed Date Chronic deep vein thrombosis (DVT) of left thigh 04/01/2025 Chronic deep vein thrombosis (DVT) of popliteal vein of left lower extremity 04/01/2025 Assessment & Plan (04/01/2025 10:43 AM EDT): Compression therapy venous reflux ultrasound. Calamine cream to the skin. Varicose veins of lower extr emity with varicose ulcer and eczema 04/01/2025 Assessment & Plan (04/01/2025 10:43 AM EDT): Compression therapy leg elevation exercise. Calamine cream. We will get venous reflux ultrasound. Pulmonary hypertension 08/02/2022 Mild persistent asthma without complication 07/24 Pulmonary infiltrate 08/02/2022 Hypertension 05/10/2022 LV dysfunction 05/10/2022 Syncope and collapse 12/15/2021 Encounters Date Type Department Care Team Description 04/01/2025 10:00 AM EDT Office Visit [facility] [place] [address] [place] [address] Robert Kumar MD Chronic venous insufficiency (Primary Dx); Chronic deep vein thrombosis (DVT) of popliteal vein of left lower extremity (CMS-HCC); 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 (CMS-HCC) 04/01/2025 Travel from Last 3 Months Family History Medical [...] Sign Reading Time Taken Comments Blood Pressure 177/122 04/01/2025 9:49 AM EDT Pulse 91 04/01/2025 9:49 AM EDT Temperature 36.3 C (97.3 F) 05/27/2024 10:35 AM EDT Respiratory Rate 11 05/27/2024 11:20 AM EDT Oxygen Saturation 91% 05/27/2024 11:20 AM EDT Inhaled Oxygen Concentration - - Weight 115.7 kg (255 lb) 04/01/2025 9:49 AM EDT Height 175.3 cm (5' 9 ) 04/01/2025 9:49 AM EDT Body Mass Index 37.66 04/01/2025 9:49 AM EDT Plan of Treatment Upcoming Encounters Date Type Department Care Team (Late st Contact Info) Description 04/20/2025 9:00 AM EDT Appointment [facility] - Vascular [address] [place] [address] Robert Kumar MD [address], [address] [place] [address] 04/29/2025 8:50 AM EDT Office Visit [facility] [address] [place] [address] Robert Kumar MD [address], [address] [place] [address] Health Maintenance Due Date Last Done Comments Depression Screening 1979 Adult BMI Follow Up Plan 1985 DTaP,Tdap and Td Vaccines (1 - Tdap) 1986 Zoster (Shingles) Vaccine (1 of 2) 2017 Influenza Vaccine 05/24/2025 Tobacco Screening 05/27/2025 05/27/2024 Adult BMI Screening 04/01/2026 04/01/2025 Medical Devices Not on file Insurance [facility] access [facility] [address] Advance Directives * Full Code (Latest Code Status on File) Date Activated Date Inactivated Comments 12/16/2021 11:22 AM 12/16/2021 5:00 PM Care Teams Wire Puller Relationship Specialty Start Date End Date Pepper Sexton, EXECUTIVE DIRECTOR SHELTERED WORKSHOP-LOCATION AND MEASUREMENT TECHNICIAN PCP - General Nurse Practitioner 05/10/22
--- OUTSIDE RECORDS SUMMARY | 2025-04-13 16:33 | XMS_ITS | Encounter Summary ---
Author Organization [facility] tem Address [id number] [address] [place] [address] Care Team Providers Care Maintenance And Repair Worker Name Role Phone Pepper Sexton CARL-CLINICAL SERVICES SPECIALIST Primary Care Provider Encounter Details Date Type Department Care Team (Late st Contact Info) Description 08/28/2022 Orders Only [facility] [address] [place] [address] Ref Prov, [place] [address] Social History Tobacco Use Types Packs/Day Years [...] Info) Description 04/20/2025 9:00 AM EDT Appointment [facility] - Vascular [address] [place] [address] Robert Kumar MD [address], [facility] [address] [place] [address] 04/29/2025 8:50 AM EDT Office Visit [facility] [place] [address] [place] [address] Robert Kumar MD [address], [address] [address] documented as of this encounter Procedures Procedure [...] on filedocumented in this encounter Care Teams Maintenance And Repair Worker Relationship Specialty Start Date End Date Pepper Sexton, PILOT CONTROL OPERATOR HELPER-CLINICAL SERVICES SPECIALIST PCP - General Nurse Practitioner 05/10/22 documented as of this encounter
--- OUTSIDE RECORDS SUMMARY | 2025-04-13 16:33 | XMS_ITS | Encounter Summary ---
Author Organization [facility] Address [address] [place] [address] Care Team Providers Care Boom Cat Operator Name Role Phone Anastacio Hinojosa MD Primary Care Provider [phone] Pepper Sexton SSN/SSBN ASSISTANT NAVIGATOR Unavailable [phone] Pepper Sexton SSN/SSBN ASSISTANT NAVIGATOR Unavailable [phone] Encounter Details Date Type Department Care Team (Late st Contact Info) Description 11/26/2024 Abstract [facility] [address] [place] [address] Pepper Sexton NP [address] [place] [address] Social History Tobacco Use Types Packs/Day Years [...] often do you attend chur ch or anabaptism services? Never 11/25/2023 Do you belong to any clubs o r organizations such as buddhism groups, unions, fraternal or athletic groups, or [...] Patient Health Questionnaire-2 Score 0 11/26/2023 [facility] of Occupat ional Health - [...] Office Visit [facility] [address] [place] [address] Pepper Sexton NP [address] [place] [address] documented as of this encounter Visit Diagnoses Not on filedocumented in this encounter Care Teams Boom Cat Operator Relationship Specialty Start Date End Date Anastacio Hinojosa MD [address] [place] [address] PCP - General Family Medicine 11/26/23 Pepper Sexton NP [address] [place] [address] PCP - [place] [employer] 04/23/24 Pepper Sexton NP [address] [place] [address] Nurse Practitioner Family Medicine 11/26/23 documented as of this encounter
--- OUTSIDE RECORDS SUMMARY | 2025-04-13 16:33 | XMS_ITS | Encounter Summary ---
Author Organization [facility] Address [address] [place] [address] Care Team Providers Care Child Care Cook Name Role Phone Anastacio Hinojosa MD Primary Care Provider [phone] Pepper Sexton [employer] Unavailable [phone] Pepper Sexton [employer] Unavailable [phone] Encounter Details Date Type Department Care Team ([facility] st Contact Info) Description 07/09/2024 Orders Only [facility] [address] [place] [address] James Elaine MD [address] [facility] [address] [place] [address] Social History Tobacco Use Types Packs/Day Years [...] often do you attend chur ch or taoism services? Never 11/25/2023 Do you belong to any clubs o r organizations such as scientologist groups, unions, fraternal or athletic groups, or [...] Recorded Patient Health Questionnaire-2 Score 0 11/26/2023 [facility] - [...] Office Visit [facility] [address] [place] [id number] Pepper Sexton NP [address] [place] [phone] documented as of this encounter Procedures Procedure Name Priority Date/Time Associated Diagnosis Comments SCANNED LABS Routine 07/09/2024 1:15 PM EDT documented in this encounter Results * SCANNED LABS (07/09/2024 1:15 PM EDT) James Elaine MD LAB CHG PERFORMABLES Final Resul t documented in this encounter Visit Diagnoses Not on filedocumented in this encounter Care Teams Child Care Cook Relationship Specialty Start Date End Date Anastacio Hinojosa MD [address] [place] [phone] PCP - General Family Medicine 11/26/23 Pepper Sexton NP [address] [place] [phone] PCP - [place] [employer] 04/23/24 Pepper Sexton NP [address] [place] [phone] Nurse Practitioner Family Medicine 11/26/23 documented as of this encounter
--- NOTE | 2025-04-13 16:46 | ECG_ITS ---
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 Measurements Intervals [place] Rate: 107 P: 58 W[place]: 178 QRS: -51 QRSD: 84 T: 62 QT: 348 QTc: 410 Interpretive Statements 1120 Sinus tachycardia 2630 Left anterior fascicular block 9150 abnormal ECG Compared to ECG 03/17/2025 11:45:50 Sinus rhythm no longer present Electronically Signed On 04-14-2025 7:06:34 EDT by CAMERON FARIAS M.D.
[2025-04-13 16:54] LABS: Hematocrit 42.8 % (42.0-54.0); Hemoglobin 13.9 g/dL (14.0-18.0); Immature Granulocytes Abs Auto 0.04 10^3/uL (0.00-0.03); Immature Granulocytes Pct Auto 0.4 % (0.0-0.5); Lymphocytes Absolute Auto 2.3 10^3/uL (1.2-3.8); Mean Corpuscular HGB Conc 32.5 g/dL (29.9-35.2); Mean Corpuscular Hemoglobin 31.6 pg (25.9-34.0); Mean Corpuscular Volume 97.3 fL (80.0-94.0); Platelet Count 345 10^3/uL (150-450); Red Blood Count 4.40 10^6/uL (4.70-6.10); White Blood Count 11.2 10^3/uL (4.0-11.0)
[2025-04-13] MEDS: MAGNESIUM SULFATE IN WATER 2 GM/50 ML PREMIX IV ×2 (16:54→17:46)
[2025-04-13 17:09] LABS: Alanine Aminotransferase 30 U/L (16-63); Albumin Globulin Ratio 0.8; Albumin Level 3.4 g/dL (3.4-5.0); Alkaline Phosphatase 124 U/L (46-116); Anion Gap 15.5; Aspartate Amino Transferase 16 U/L (15-37); Blood Urea Nitrogen 21.0 mg/dL (7.0-18.0); Calcium 7.6 mg/dL (8.5-10.1); Carbon Dioxide 26.7 mmol/L (21.0-32.0); Chloride 106 mmol/L (98-107); Estimated GFR (African America >60 (>=60 mL/min/1.73m^2); Estimated GFR (Non-African Ame >60 (>=60 mL/min/1.73m^2); Globulin 4.1 g/dL; Glucose 148 mg/dL (74-106); Potassium 3.2 mmol/L (3.5-5.1); Sodium 145 mmol/L (136-145); Total Protein 7.5 g/dL (6.4-8.2)
--- NOTE | 2025-04-13 17:28 | ED.GENADUL1 ---
HPI HPI - General Adult General Chief complaint: Recheck/Abnormal Lab/Rx Stated complaint: Madizime Time Seen by Provider: 04/13/25 16:29 Source: patient Mode of arrival: walk-in History of Present Illness HPI narrative: 59-year-old male presents here with a chief complaint of low magnesium. Patient is been seen here in the emergency room multiple times for this condition. He is currently working with his physician and insurance company to have outpatient infusions for this low levels. Magnesium was drawn earlier today and showed a level of 0.5. Patient has been here to the emergency room several times for an IV infusion. He denies any symptoms. He is otherwise in no acute distress. Related Data Home Medications ?Medication ?Instructions ?Recorded ?Confirmed budesonide-formoterol HFA 160 2 puff inhalation Q12H 02/07/25 04/13/25 mcg-4.5 mcg/actuation aerosol inhaler doxepin 10 mg/mL oral concentrate 10 mg PO BEDTIME 02/07/25 04/13/25 gabapentin 600 mg tablet 600 mg PO BID 02/07/25 04/13/25 levothyroxine 112 mcg tablet 112 mcg PO DAILY 02/07/25 04/13/25 montelukast 10 mg tablet 10 mg PO BEDTIME 02/07/25 04/13/25 nebivolol 10 mg tablet 10 mg PO DAILY 02/07/25 04/13/25 omeprazole 40 mg capsule,delayed 40 mg PO DAILY 02/07/25 04/13/25 release valsartan 320 mg tablet 320 mg PO DAILY 02/07/25 04/13/25 amlodipine 10 mg tablet 10 mg PO DAILY 03/17/25 04/13/25 apixaban 5 mg tablet (Eliquis) 5 mg PO DAILY 03/17/25 04/13/25 magnesium glycinate 100 mg PO TID 03/17/25 04/13/25 Allergies Allergy/AdvReac Type Severity Reaction Status Date / Time No Known Drug Allergies Allergy Verified 04/13/25 16:32 Opioid HPI Opioid Management Most Recent Opioid Data: Last Pain Scale 5 02/12/25, 12:03 Last ORT Total Score 0 02/07/25, 14:00 Last ORT Risk Category Low Risk 02/07/25, 14:00 Review of Systems ROS Status of ROS 10 or more systems reviewed and unremarkable except as noted in history and below PFSH PFSH Medical History (Updated 04/13/25 @ 18:49 by Violeta Pal) Sepsis ?A41.9 - Sepsis, unspecified organism (ICD-10) D-dimer, elevated ?R79.89 - Other specified abnormal findings of blood chemistry (ICD-10) Acute hypokalemia ?E87.6 - Hypokalemia (ICD-10) Cellulitis ?L03.90 - Cellulitis, unspecified (ICD-10) MARITZA (acute kidney injury) ?N17.9 - Acute kidney failure, unspecified (ICD-10) Hypomagnesemia ?E83.42 - Hypomagnesemia (ICD-10) HTN (hypertension) ?I10 - Essential (primary) hypertension (ICD-10) Social History (Updated 02/07/25 @ 14:36 by Winsome Pulido RN) Within the past year, how often did you have a drink containing alcohol: 2-3 times a week Within the past year, how many standard drinks containing alcohol did you have on a typical day: 10 or more Within the past year, how often did you have six or more drinks on one occasion: monthly Total score: 10 Score interpretation: A score of 4 or more indicates drinking is likely to affect patient's safety. Smoking status: Current every day smoker Second hand tobacco smoke exposure: Yes (smokes marijuana, not tobbacco) Non-prescribed substance use: cannabis (any form) Known occupational exposures/hazards: No Highest level of school completed/degree received: high school graduate Do you want help with school or training: No Are you now , , , , never or living with a partner: In a typical week, how many times do you talk on the telephone with family, friends, or neighbors: 3 or more times per week How often do you get together with friends or relatives: once per week How often do you attend jainism or hoahaoism services: never Little interest or pleasure in doing things: not at all Feeling down, depressed, or hopeless: not at all Feel stressed/tense/nervous/anxious/difficulty sleeping: not at all Exam Narrative Exam Narrative: All Systems are negative except as noted/marked.All systems reviewed and otherwise negative Nurses note and vital signs reviewed and patient is not hypoxic. General: The patient appears well and in no apparent distress. Patient is resting comfortably on cart. Skin: Warm, dry, no pallor noted. There is no rash noted. Head: Normocephalic, atraumatic Eye: Normal conjunctiva, no drainage, EOMI. PERRL Ears, Nose, Mouth, and Throat: oral mucosa is moist. Nares patent. Mouth without vesicles. Ear canals patent. Tm's without Erythema Cardiovascular: Regular Rate and Rhythm Respiratory: Patient is in no distress, no accessory muscle use, lungs are clear to auscultation, no wheezing, rales or rhonchi Back: non-tender, no CVA tenderness bilaterally to percussion. GI: Normal bowel sounds, no tenderness to palpation, no masses appreciated. No rebound, guarding, or rigidity noted. Musculoskeletal: The patient has no evidence of calf tenderness, no pitting edema, symmetrical pulses noted bilaterally Neurological: A&O x4, normal speech Psychiatric: Cooperative Constitutional Vital Signs, click to edit/add: Last Vital Signs Temp 97.7 F 04/13/25 16:33 Pulse 97 H 04/13/25 18:40 Resp 16 04/13/25 18:40 BP 145/89 H 04/13/25 18:30 Pulse Ox 87 L 04/13/25 17:40 O2 Del Method Room Air 04/13/25 16:33 Course Vital Signs Vital signs: Vital Signs Temperature 97.7 F 04/13/25 16:33 Pulse Rate 109 H 04/13/25 16:33 Respiratory Rate 18 04/13/25 16:33 Blood Pressure 179/100 H 04/13/25 16:33 Pulse Oximetry 94 L 04/13/25 16:33 Oxygen Delivery Method Room Air 04/13/25 16:33 Temperature 97.7 F 04/13/25 16:33 Pulse Rate 97 H 04/13/25 18:40 Respiratory Rate 16 04/13/25 18:40 Blood Pressure 145/89 H 04/13/25 18:30 Pulse Oximetry 87 L 04/13/25 17:40 Oxygen Delivery Method Room Air 04/13/25 16:33 Medical Decision Making MDM Narrative Medical decision making narrative: 59-year-old male presents here with a chief complaint of low magnesium. Patient is been seen here in the emergency room multiple times for this condition. He is currently working with his physician and insurance company to have outpatient infusions for this low levels. Magnesium was drawn earlier today and showed a level of 0.5. Patient has been here to the emergency room several times for an IV infusion. He denies any symptoms. He is otherwise in no acute distress. Here with a history of low magnesium as a chronic history. Patient will be discharged home after receiving 4 g of IV magnesium here in the hospital. He will have a repeat draw tomorrow. Follow-up with his kidney specialist, Dr Welch Differential Diagnosis Differential Diagnosis: hypomagnesium Medical Records Medical records reviewed: Yes I reviewed the patient's medical records Lab Data Lab results reviewed: Yes I reviewed the patient's lab results Labs: Lab Results 04/13/25 Range/Units 16:45 WBC 11.2 H (4.0-11.0) 10^3/uL RBC 4.40 L (4.70-6.10) 10^6/uL Hgb 13.9 L (14.0-18.0) g/dL Hct 42.8 (42.0-54.0) % MCV 97.3 H (80.0-94.0) fL MCH 31.6 (25.9-34.0) pg MCHC 32.5 (29.9-35.2) g/dL RDW 14.2 (11.0-15.0) % Plt Count 345 (150-450) 10^3/uL MPV 10.4 (9.5-13.5) fL Neut % (Auto) 61.6 (43.0-75.0) % Lymph % (Auto) 20.5 (20.5-60.0) % [place] % (Auto) 5.3 (1.7-12.0) % Eos % (Auto) 11.1 H (0.9-7.0) % Baso % (Auto) 1.1 (0.2-2.0) % Neut # (Auto) 6.9 H (1.4-6.5) 10^3/uL Lymph # (Auto) 2.3 (1.2-3.8) 10^3/uL [place] # (Auto) 0.6 (0.3-0.8) 10^3/uL Eos # (Auto) 1.3 H (0.0-0.7) 10^3/uL Baso # (Auto) 0.1 (0.0-0.1) 10^3/uL Abs Immat Gran (auto) 0.04 H (0.00-0.03) 10^3/uL Imm/Tot Granulo (auto) 0.4 (0.0-0.5) % Sodium 145 (136-145) mmol/L Potassium 3.2 L (3.5-5.1) mmol/L Chloride 106 (98-107) mmol/L Carbon Dioxide 26.7 (21.0-32.0) mmol/L Anion Gap 15.5 BUN 21.0 H (7.0-18.0) mg/dL Creatinine 1.15 (0.70-1.30) mg/dL Est GFR ( Amer) >60 (>=60 mL/min/1.73m^2) Est GFR (Non-Af Amer) >60 (>=60 mL/min/1.73m^2) BUN/Creatinine Ratio 18.3 Glucose 148 H (74-106) mg/dL Calcium 7.6 L (8.5-10.1) mg/dL Total Bilirubin 0.4 (0.2-1.0) mg/dL AST 16 (15-37) U/L ALT 30 (16-63) U/L Alkaline Phosphatase 124 H (46-116) U/L Total Protein 7.5 (6.4-8.2) g/dL Albumin 3.4 (3.4-5.0) g/dL Globulin 4.1 g/dL Albumin/Globulin Ratio 0.8 ECG Data Attestation: ?I have reviewed the pertinent ECG results. Interpretation: 1636 tachycardia with a rate of 107 bpm, KS interval 178 ms, QRS duration 84 ms, no STEMI Discharge Plan Discharge Chief Complaint: Recheck/Abnormal Lab/Rx Clinical Impression: Hypomagnesemia Patient Disposition: Home, Self-Care Time of Disposition Decision: 19:00 Condition: Good Prescriptions / Home Meds: No Action amlodipine 10 mg tablet 10 mg PO DAILY Eliquis 5 mg tablet 5 mg PO DAILY magnesium glycinate 100 mg magnesium capsule 100 mg PO TID budesonide-formoterol 160-4.5 mcg/actuation HFA aerosol inhaler 2 puff INHALATION Q12H gabapentin 600 mg tablet 600 mg PO BID levothyroxine 112 mcg tablet 112 mcg PO DAILY montelukast 10 mg tablet 10 mg PO BEDTIME nebivolol 10 mg tablet 10 mg PO DAILY omeprazole 40 mg capsule,delayed release(DR/EC) 40 mg PO DAILY valsartan 320 mg tablet 320 mg PO DAILY doxepin 10 mg/mL concentrate 10 mg PO BEDTIME Print Language: Pashto Instructions: Hypomagnesemia (ED) Referrals: Pepper Sexton ETCHER ENAMELING [Primary Care Provider, Family Practice] - 1 week
== END 2025-04-13 19:07 | disposition home or self-care (01) ==
PROVIDERS: Physician Assistant; Emergency Provider Emergency Medicine; PCP Nurse Practitioner
DX: E83.42 Hypomagnesemia (principal); K21.00 Gastro-esophageal reflux disease with esophagitis, without bleeding; I10 Essential (primary) hypertension; M10.9 Gout, unspecified
CPT/HCPCS: 36415; 80053; 80069; 83735; 84550; 85025; 93005; 96365; 96366; 99285; J3475

== ENCOUNTER 2025-04-14 08:19 | Outpatient (OUT) | payer BC, SELFPAY ==
[2025-04-14 09:46] LABS: Magnesium 1.3 mg/dL (1.8-2.4)
== END 2025-04-14 08:20 | disposition home or self-care (01) ==
PROVIDERS: PCP Nurse Practitioner; Visit Provider Physician Assistant
DX: E83.42 Hypomagnesemia (principal)
CPT/HCPCS: 36415; 83735

== ENCOUNTER 2025-05-06 12:23 | Outpatient (OUT) | payer BC, SELFPAY ==
--- OUTSIDE RECORDS SUMMARY | 2025-05-06 12:34 | XMS_ITS | CCD ---
Author Organization [facility] Care Team Providers Care Solid Die Cutter Name Role Phone AICHHOLZ, IRON LAUNDER OPERATOR PEPPER Primary Care Unavailable AICHHOLZ, IRON LAUNDER OPERATOR PEPPER Consulting Unavailable AICHHOLZ, IRON LAUNDER OPERATOR PEPPER Attending Unavailable AICHHOLZ, IRON LAUNDER OPERATOR PEPPER Admitting Unavailable AICHHOLZ, IRON LAUNDER OPERATOR PEPPER Consulting Unavailable AICHHOLZ, IRON LAUNDER OPERATOR PEPPER Attending Unavailable AICHHOLZ, IRON LAUNDER OPERATOR PEPPER Admitting Unavailable AICHHOLZ, IRON LAUNDER OPERATOR PEPPER Primary Care Unavailable AICHHOLZ, IRON LAUNDER OPERATOR PEPPER Primary Care Unavailable DR CRIS GAN V Consulting Unavailable AICHHOLZ, IRON LAUNDER OPERATOR PEPPER Attending Unavailable AICHHOLZ, IRON LAUNDER OPERATOR PEPPER Admitting Unavailable AICHHOLZ, IRON LAUNDER OPERATOR PEPPER Consulting Unavailable AICHHOLZ, IRON LAUNDER OPERATOR PEPPER Primary Care Unavailable AICHHOLZ, IRON LAUNDER OPERATOR PEPPER Consulting Unavailable AICHHOLZ, IRON LAUNDER OPERATOR PEPPER Attending Unavailable AICHHOLZ, IRON LAUNDER OPERATOR PEPPER Admitting Unavailable AICHHOLZ, IRON LAUNDER OPERATOR PEPPER Primary Care Unavailable AICHHOLZ, IRON LAUNDER OPERATOR PEPPER Consulting Unavailable AICHHOLZ, IRON LAUNDER OPERATOR PEPPER Attending Unavailable AICHHOLZ, IRON LAUNDER OPERATOR PEPPER Admitting Unavailable Anastacio Hinojosa MD Primary Care Provider [phone] Aichholz COVER MARKER, Pepper Unavailable Aichholz COVER MARKER, Pepper Unavailable Carlie Pepper J Primary Care Provider [phone] MD [place] Imrosalie Attending Provider Pepper Sexton Primary Care Provider James Elaine MD Attending Provider [phone] Pepper Sexton Primary Care Unavailable Asaad, Imad Attending Unavailable Asaad, Imad Admitting Unavailable Asaad, Imad Admitting Unavailable Pepper Sexton Primary Care Unavailable James Elaine Attending Unavailable Aichholz ELEVATOR WORKER-IRON LAUNDER OPERATOR, Pepper J Primary Care Provider Carlie Pepper J Primary Care Provider [phone] James Elaine MD Attending Provider [phone] AICHHOLZ, PEPPER Attending Unavailable AICHHOLZ, PEPPER Attending Unavailable AICHHOLZ, PEPPER Attending Unavailable AICHHOLZ, PEPPER Attending Unavailable AICHHOLZ, PEPPER Attending Unavailable RUPERT BO Attending Unavailable AICHHOLZ, PEPPER Attending Unavailable AICHHOLZ, PEPPER Referring Unavailable BLANK MCFARLANE Attending Unavailable RUPERT BO Attending Unavailable AICHHOLZ, PEPPER Attending Unavailable AICHHOLZ, PEPPER Attending Unavailable Aichholz CARL-ROSI, Pepper J Primary Care Provider Pepper Sexton J Primary Care Provider Tang Hamilton MD Attending Provider [phone] AICHHOLZ, PEPPER J Referring Unavailable AICHHOLZ, PEPPER J Primary Care Unavailable AICHHOLZ, PEPPER J Referring Unavailable AICHHOLZ, PEPPER J Primary Care Unavailable RUPERT BO Referring Unavailable AICHHOLZ, PEPPER J Primary Care Unavailable RUPERT BO Admitting Unavailable RUPERT BO Attending Unavailable AICHHOLZ, PEPPER J Primary Care Unavailable KENNEDI GRESHAM Attending Unavailable AICHHOLZ, PEPPER J Primary Care Unavailable ROBERT KUMAR Attending Unavailable ROBERT KUMAR Referring Unavailable AICHHOLZ, PEPPER J Primary Care Unavailable ROBERT KUMAR Attending Unavailable AICHHOLZ, PEPPER J Referring Unavailable AICHHOLZ, PEPPER J Primary Care Unavailable ROBERT KUMAR Attending Unavailable AICHHOLZ, PEPPER J Referring Unavailable AICHHOLZ, PEPPER J Primary Care Unavailable Medications Current Medications Medication Drug Class(es) Dates Sig (Normalized) Sig (Original) 8 hr acetaminophen 650 mg extended release oral tablet (10 sources) take 1 tablet by mouth every eight hours as needed acetaminophen (Tylenol 8 Hour) 650 MG ER tablet Take 650 mg by mouth every 8 (eight) hours if needed Active acetaminophen 325 mg / HYDROcodone bitartrate 5 mg oral tablet (1 source) Opioid Agonist Start: 05-26-2024 End: 05-29-2024 take 1 tablet by mouth every six hours for pain HYDROcodone-acetami nophen ([place]) 5-325 MG tablet Indications: Post-operative pain Take 1 tablet by mouth every 6 (six) hours if needed for severe pain for up to 3 days 12 tablet 05/26/2024 05/29/2024 Active [id number] 200 actuat albuterol 0.09 mg/actuat metered dose [...] Daily 90 tablet 1 03/16/2025 06/14/2025 Active amoxicillin 875 mg / clavulanate 125 mg oral tablet (2 sources) Penicillin-class Antibacterial Start: 05-06-2025 End: 05-16-2025 take 1 tablet by mouth in the morning amoxicillin-clavul anate (Augmentin) 875-125 MG tablet Indications: COPD with acute exacerbation (HCC) Take 1 tablet (875 mg) by mouth in the morning and 1 tablet (875 mg) before bedtime. Do all this for 10 days. 20 tablet 05/06/2025 05/16/2025 Active apixaban 5 mg oral tablet (18 sources) Factor Xa Inhibitor Start: 02-12-2025 take [...] before bedtime. 10.2 g 12 08/02/2022 Active calamine 80 mg/ml / zinc oxide 80 mg/ml topical lotion (4 sources) Start: 04-29-2025 Calamine-Zinc Oxide 8-8 % lotion Apply 1 Application topically Daily as needed 04/29/2025 Active Start: 04-29-2025 calamine-zinc oxide 8-8 % lotion Apply 1 Application topically as needed for itching. 120 mL 04/29/2025 Active cefdinir 300 mg oral capsule (13 [...] therapy diclofenac sodium 0.01 mg/mg topical gel (4 sources) Nonsteroidal Anti-inflammatory Drug Start: 04-07-2025 End: [...] Active Start: 03-19-2024 take 1 capsule by [facility] once daily at bedtime [...] Active doxycycline hyclate 100 mg oral tablet (4 sources) Tetracycline-class Drug Start: 04-07-2025 End: 04-17-2025 [...] (20 sources) Anti-epileptic Agent Start: 03-19-2024 End: 08-04-2025 take 1 tablet by mouth in the morning gabapentin (Neurontin) 600 MG tablet Indications: Restless legs syndrome Take 1 tablet (600 mg) by mouth in the morning and 1 tablet (600 mg) before bedtime. 180 tablet 1 05/06/2025 08/04/2025 Active take 1 capsule by mo ut in the morning, then take 1 capsule by mouth at bedtime gabapentin (NEURONTIN) 300 mg capsule Take 1 capsule (300 mg total) by mouth in the morning and 1 capsule (300 mg total) before bedtime. Active ibuprofen 200 mg oral tablet (18 sources) Nonsteroidal Anti-inflammatory Drug End: 07-06-2024 take [...] with drug therapy take 4 tablets by [facility] in the morning levothyroxine (SYNTHROID, LEVOTHROID) 25 MCG tablet Take 4 tablets (100 mcg total) by mouth in the morning. Active magnesium glycinate 100 mg oral tablet (20 sources) Start: 12-07-2024 take 1 capsule by [...] 100 MG PO Three times daily 270 March 05, 2025 11:40am Complies with drug therapy Start: 03-04-2025 End: 03-05-2025 take 1 capsule by mouth three times daily Magnesium Glycinate 100 mg magnesium capsule Discontinued 100 MG PO Three times daily 270 March 04, 2025 3:50pm March 05, 2025 11:40am Start: 12-02-2024 End: 03-04-2025 take 1 capsule by mouth three times daily Magnesium Glycinate 100 mg magnesium capsule Discontinued 100 MG PO Three times daily December 02, 2024 12:00am March 04, 2025 3:51pm Start: 12-02-2024 take 1 capsule by [facility] three times daily Magnesium Glycinate 100 mg [...] End: 09-22-2024 take 1 tablet by mouth in the morning meloxicam (MOBIC) 15 mg tablet Take 1 tablet (15 mg total) by mouth in the morning. 03/29/2022 Active methylPREDNISolone (2 sources) Corticosteroid Start: 05-06-2025 End: 05-13-2025 methylPREDNISolone (Medrol Dospak) 4 MG tablets Indications: COPD with acute exacerbation (HCC) Follow schedule on package instructions take with food 21 tablet 05/06/2025 05/13/2025 Active montelukast 10 mg oral tablet (20 sources) [...] te Episodic/Chronic Acute and unspecified renal failure (20 sources) Acute renal failure syndrome; Translations: [Acute kidney failure, unspecified] Onset: 5 02-17-2025 Episodic Allergic reactions (20 sources) Atopic dermatitis; Translations: [Atopic dermatitis, unspecified] Onset: 4 11-26-2023 Chronic Asthma (3 sources) Uncomplicated mild persistent asthma; Translations: [Mild persistent asthma, uncomplicated] Onset: 2 08-02-2022 Chronic Chronic kidney disease (20 sources) Chronic kidney disease stage 3A ; Translations: [Chronic kidney disease, stage 3a (HCC)] Onset: 5 01-06-2025 Chronic Chronic obstructive pulmonary disease and bronchiectasis (20 sources) Chronic bronchitis; Translations: [Unspecified chronic bronchitis] Onset: 4 Resolved: 5 03-06-2024 Chronic Chronic obstructive pulmonary disease and bronchiectasis (9 sources) Bronchitis; Translations: [Bronchitis, not specified as [...] 2 03-19-2024 Chronic Fluid and electrolyte disorders (15 sources) Hypokalemia; Translations: [Disorder of electrolytes] Onset: 2 Episodic Gout and other crystal arthropathies (11 sources) Gouty arthritis of left hand; Translations: [...] disease, unspecified] Onset: 2 11-26-2023 Chronic Other diseases of veins and lymphatics (2 sources) Peripheral venous insufficiency; Translations: [Venous insufficiency (chronic) (peripheral)] 04-01-2025 Episodic Other diseases of veins and lymphatics (2 sources) Venous insufficiency (chronic) (peripheral); Translations: [Venous insufficiency [...] 5 10-07-2024 Chronic Phlebitis; thrombophlebitis and thromboembolism (20 sources) Chronic deep venous thrombosis of popliteal [...] 12-29-2023 Chronic Skin and subcutaneous tissue infections (20 sources) Cellulitis of left lower limb; Translations: [...] Onset: 5 Varicose veins of lower extremity (15 sources) Varicose veins of unspecified lower extremity with both ulcer of unspecified site and inflammation; Translations: [Varicose veins of lower extremities with ulcer and inflammation] Onset: 5 04-01-2025 Episodic Past or Other Problems Problem [...] 11-26-2023 11-26-2023 Episodic Other lower respiratory disease (3 sources) Radiologic infiltrate of lung ; Translations: [...] unspecified, uncomplicated] Onset: 11-26-2023 11-26-2023 Episodic Syncope (8 sources) Syncope and collapse; Translations: [Syncope and collapse] Onset: 12-15-2021 Episodic Results Test Name Value Interpretation Reference Range Facility ALL MAGNESIUMon 04-14-2025 Interpretation and review of laboratory results Abnormal [facility] Magnesium [Mass/Vol] 1.3 mg/dL Low 1.8 - 2 .4 mg/dL [facility] ALL URIC ACIDon 04-13-2025 Urate [Mass/Vol] 7.2 mg/dL 3.5 - 7.2 mg/dL [facility] ALL BASIC METABOLIC PANELon 03-31-2025 Anion gap [Moles/Vol] 13.7 mmol/L [facility] Calcium [Mass/Vol] 7.9 mg/dL Low 8.5 - 10. 1 mg/dL [facility] Chloride [Moles/Vol] 107 mmol/L 98 - 10 7 mmol/L [facility] CO2 [Moles/Vol] 28.8 mmol/L 21.0 - 32.0 mmol/L [facility] Creatinine [Mass/Vol] 1.04 mg/dL 0.70 - 1.30 mg/dL [facility] GFR/1.73 sq M.predicted CKD-EPI (S/P/Bld) [Vol rate/Area] >60 >=60 mL/min/1.73m 2 [facility] Glucose [Mass/Vol] 130 mg/dL High 74 - 106 mg/dL [facility] Interpretation and review of laboratory results Abnormal [facility] Potassium [Moles/Vol] 3.5 mmol/L 3.5 - 5.1 mmol/L [facility] Sodium [Moles/Vol] 146 mmol/L High 136 - 145 mmol/L [facility] TBH EGFR-NON AF SLOVENIAN >60 >=60 mL/min/1.73m 2 [facility] Urea nitrogen [Mass/Vol] 15 mg/dL 7.0 - 18.0 mg/dL [facility] Urea nitrogen/Creatinine [Mass ratio] 14.4 mg/mg [facility] ALL CBC WITH AUTO DIFFon BASOPHILS ABSOLUTE AUTO 0.1 [facility] Basophils/100 WBC (Bld) 0.7 % 0.2 - 2.0 % [facility] Eosinophils/100 WBC (Bld) 9.5 % High 0.9 - 7.0 % [facility] Erythrocyte distribution width (RBC) [Ratio] 15 % 11.0 - 15.0 % [facility] Hematocrit (Bld) [Volume fraction] 38.3 % Low 42.0 - 54.0 % [facility] Hemoglobin (Bld) [Mass/Vol] 12.5 g/dL Low 14.0 - 18.0 g/dL [facility] IMMATURE GRANULOCYTES ABS AUTO 0.03 [facility] Immature granulocytes/100 WBC (Bld) 0.3 % 0.0 - 0.5 % [facility] Interpretation and review of laboratory results Abnormal [facility] LYMPHOCYTES ABSOLUTE AUTO 1.9 [facility] Lymphocytes/100 WBC (Bld) 20.4 % Low 20.5 - 60.0 % [facility] MCH (RBC) [Entitic mass] 31.8 pg 25.9 - 34.0 pg [facility] MCHC (RBC) [Mass/Vol] 32.6 g/dL 29.9 - 35.2 g/dL [facility] MCV (RBC) [Entitic vol] 97.5 fL High 80.0 - 94.0 fL [facility] MONOCYTES ABSOLUTE AUTO 0.5 [facility] Monocytes/100 WBC (Bld) 5.2 % 1.7 - 12.0 % [facility] NEUTROPHILS ABSOLUTE AUTO 5.8 [facility] Neutrophils/100 WBC (Bld) 63.9 % 43.0 - 75.0 % [facility] Platelet mean volume (Bld) [Entitic vol] 9.8 fL 9.5 - 13.5 fL [facility] TBH EO # 0.9 High [facility] TBH PLT 277 [facility] RBC 3.93 Low [facility] TB WBC 9.1 [facility] Laboratory - Chemistry and C hemistry - challengeOrdered By: Tang Hamilton on 03-17-2025 Magnesium [Mass/Vol] 0.2 mg/dL Critically low 1.8-2.4 [facility] Comment on above: RESULTS CALLED TO TO JAVI GIBSON LPN No Panel InformationOrdered By: Tang Hamilton on 03-17-2025 Phosphorus Level 2.7 mg/dL 2.6-4.7 [facility] ALL CBC WITH AUTO DIFFon BASOPHILS ABSOLUTE AUTO 0.1 [facility] Basophils/100 WBC (Bld) 0.8 % 0.2 - 2.0 % [facility] Eosinophils/100 WBC (Bld) 6.2 % 0.9 - 7.0 % [facility] Erythrocyte distribution width (RBC) [Ratio] 13.7 % 11.0 - 15.0 % [facility] Hematocrit (Bld) [Volume fraction] 42 % 42.0 - 54.0 % [facility] Hemoglobin (Bld) [Mass/Vol] 13.6 g/dL Low 14.0 - 18.0 g/dL [facility] IMMATURE GRANULOCYTES ABS AUTO 0.03 [facility] Immature granulocytes/100 WBC (Bld) 0.3 % 0.0 - 0.5 % [facility] Interpretation and review of laboratory results Abnormal [facility] LYMPHOCYTES ABSOLUTE AUTO 1.8 [facility] Lymphocytes/100 WBC (Bld) 21 % 20.5 - 60.0 % [facility] MCH (RBC) [Entitic mass] 31.1 pg 25.9 - 34.0 pg [facility] MCHC (RBC) [Mass/Vol] 32.4 g/dL 29.9 - 35.2 g/dL [facility] MCV (RBC) [Entitic vol] 95.9 fL High 80.0 - 94.0 fL [facility] MONOCYTES ABSOLUTE AUTO 0.5 [facility] Monocytes/100 WBC (Bld) 6.1 % 1.7 - 12.0 % [facility] NEUTROPHILS ABSOLUTE AUTO 5.8 [facility] Neutrophils/100 WBC (Bld) 65.6 % 43.0 - 75.0 % [facility] Platelet mean volume (Bld) [Entitic vol] 9.6 fL 9.5 - 13.5 fL [facility] TBH EO # 0.5 [facility] TBH PLT 306 [facility] RBC 4.38 Low [facility] WBC 8.8 [facility] ALL MAGNESIUMon 11-24-2024 Interpretation and review of laboratory results Abnormal [facility] Magnesium [Mass/Vol] 1.1 mg/dL Low 1.8 - 2 .4 mg/dL [facility] Laboratory - Chemistry and C hemistry - challengeon 11-24-2024 Magnesium [Mass/Vol] 1.1 mg/dL Low 1.8-2.4 [facility] ALL MAGNESIUMon 11-05-2024 Interpretation and review of laboratory results Abnormal [facility] Magnesium [Mass/Vol] 0.7 mg/dL Critically low 1.8 - 2.4 mg/dL [facility] Comment on above: RESULTS CALLED TO EZEQUIEL BOOTH MA AT OFFICE BY Violeta Gold at 1056 [facility] ALL MAGNESIUMon 10-07-2024 Interpretation and review of laboratory results Abnormal [facility] Magnesium [Mass/Vol] 0.8 mg/dL Critically low 1.8 - 2.4 mg/dL [facility] Comment on above: RESULTS CALLED TO ALL THYROID STIM HORMONEon 0 10-07-2024 TSH Qn 2.054 m[IU]/L [facility] HbA1c (Bld) [Mass fraction]o n 10-07-2024 Interpretation and review of laboratory results Normal [facility] Laboratory - Hematology and Cell countson 10-07-2024 HbA1c (Bld) [Mass fraction] 5.60 % [facility] No Panel Informationon 10-07 [facility] Amphetamine Screen Ql (U)Ord ered By: James Elaine on 10-06-2024 Amphetamines Ql (U) Amphetamines screen Negativ e [facility] Barbiturates [Presence] in U rine by Screen methodOrdered By: James Elaine on 10-06-2024 Barbiturates Screen Ql (U) Barbiturates [Presence] in Urine by Screen method Negative [facility] Benzodiazepines Screen Ql (U )Ordered By: James Elaine on 10-06-2024 Benzodiazepines Ql (U) Benzodiazepines [Presence] in Urine by Screen method Negative [facility] Benzoylecgonine [Presence] i n Urine by Screen methodOrdered By: James Holbrookrosalie on 10-06-2024 Benzoylecgonine Screen Ql (U) Benzoylecgonine [Presence] in Urine by Screen method Negative [facility] Cannabinoids [Presence] in U rine by Screen methodOrdered By: James Elaine on 10-06-2024 Cannabinoids Screen Ql (U) Cannabinoids [Presence] in Urine by Screen method High Negative [facility] Comment on above: These are unconfirme d results and should not be used for legal purposes. Drug Cut-Off Concentration: AMPH 1000 ng/mL MAX 200 ng/mL JUHI 200 ng/mL COCM 300 ng/mL OP 300 ng/mL PCP 25 ng/mL THC 20 ng/mL Drug Screen,Urineon 10-06-19 25 Amphetamine Screen,Urine Negative Normal Negative [facility] Comment on above: Performed By: #### U RDS #### [place] [address] [place] Barbiturate Screen,Urine Negative Normal Negative [facility] Comment on above: Performed By: #### U RDS #### [place] [address] [place] Benzodiazepines Screen,Urine Negative Normal Negative [facility] Comment on above: Performed By: #### U RDS #### [place] [address] [place] Cannabinoid Screen,Urine Positive High Negative [facility] Comment on above: Result Comment: Thes e are unconfirmed results and should not be used for legal purposes. Drug Cut-Off Concentration: AMPH 1000 ng/mL MAX 200 ng/mL JUHI 200 ng/mL COCM 300 ng/mL OP 300 ng/mL PCP 25 ng/mL THC 20 ng/mL PERFORMED BY: [place] [address] PATHOLOGIST ECOLOGICAL MODELER ROBERT GRIMES M.D. Performed By: #### U RDS #### [place] [address] [place] Cocaine Screen,Urine Negative Normal Negative [facility] Comment on above: Performed By: #### U RDS #### [address] [place] [address] [place] Opiate Screen,Urine Negative Normal Negative [facility] Comment on above: Performed By: #### U RDS #### [facility] [address] Phencyclidine Screen,Urine Negative Normal Negative [facility] Comment on above: Performed By: #### U RDS #### [facility] [address] 10-06-2024 L Specimen: [id number] Received: 10/06/24 Status: SAHIL Ruiz Num: [id number] Spec Type: Surgical Subm Dr: James Elaine MD Tissues: A Esophagus Biopsy (ESOPHAGUS BX R/O BARRETTS) Procedures: LEENA/Colette, Twila/Matt L4 Age/ Patient Sex Location Account Attending Physician Abram Guillaume/M [id number] James Elaine MD SPEC NUM: [id number] RECD: 10/06/24 STATUS: SARAAdalberto RUIZ NUM: [id number] PHILLIP: 10/06/[address] [facility] DR: James Elaine MD ENTERED: 10/06/[address] [facility] [address]: SPEC TYPE: Surgical DEPT: S ENTERED BY: [id number] RECV BY: [id number] ORDERED: HE/2, Gross/Micro L4 ORDERED: HE/2, Gross/Micro [...] [id number] Received: 10/06/24 Status: SAHIL Ruiz Num: [id number] Spec Type: Surgical Subm Dr: James Elaine MD Tissues: A Esophagus Biopsy (ESOPHAGUS BX R/O BARRETTS) Procedures: HE/2, Gross/Micro L4 Patient: Rosa Guillaumey [id number] (Continued) Specimen: [id number] Received: 10/06/24 (Continued) Signed (signature on file) Sandro Baird MD 10/07/24 1009 Specimen: [id number] Received: 10/06/24 Status: SAHIL Ruiz Num: [id number] Spec Type: Surgical Subm Dr: James Elaine MD Tissues: A Esophagus Biopsy (ESOPHAGUS BX R/O BARRETTS) Procedures: LEENA/Colette, Gross/Micro L4 Patient: SissyAbram [id number] (Continued) Specimen: [id number] Received: 10/06/24 (Continued) CPT Codes 18756 Specimen: [id number] Received: 10/06/24 Status: SAHIL Ruiz Num: [id number] Spec Type: Surgical Subm Dr: James Elaine MD Tissues: A Esophagus Biopsy (ESOPHAGUS BX R/O BARRETTS) Procedures: LEENA/Twila Alvarenga/Matt L4 Patient: Abram Guillaume [id number] (Continued) Signed (signature on file) Sandro Baird MD 10/07/24 1009 Normal [facility] Opiates [Presence] in Urine by Screen methodOrdered By: rosalie [facility] on 10-06-2024 Opiates Screen Ql (U) Opiates [Presence] in Urine by Screen method Negative [facility] Phencyclidine Screen Ql (U)O rdered By: Im Asa on 10-06-2024 Phencyclidine Ql (U) Phencyclidine [Presence] in Urine by Screen method Negative [facility] ALL BASIC METABOLIC PANELon 09-28-2024 Anion gap [Moles/Vol] 14.1 mmol/L [facility] Calcium [Mass/Vol] 8.3 mg/dL Low 8.5 - 10. 1 mg/dL [facility] Chloride [Moles/Vol] 104 mmol/L 98 - 10 7 mmol/L [facility] CO2 [Moles/Vol] 28.4 mmol/L 21.0 - 32.0 mmol/L [facility] Creatinine [Mass/Vol] 1.61 mg/dL High 0.70 - 1.30 mg/dL [facility] GFR/1.73 sq M.predicted CKD-EPI (S/P/Bld) [Vol rate/Area] 54 Low >=60 mL/min/1.73m 2 [facility] Glucose [Mass/Vol] 137 mg/dL High 74 - 106 mg/dL [facility] Potassium [Moles/Vol] 3.5 mmol/L 3.5 - 5.1 mmol/L [facility] Sodium [Moles/Vol] 143 mmol/L 136 - 145 mmol/L [facility] TBH EGFR-NON AF SLOVENIAN 45 Low >=60 mL/min/1.73m 2 [facility] Urea nitrogen [Mass/Vol] 17 mg/dL 7.0 - 18.0 mg/dL [facility] Urea nitrogen/Creatinine [Mass ratio] 10.6 mg/mg [facility] ALL MAGNESIUMon 09-28-2024 Magnesium [Mass/Vol] 0.8 mg/dL Critically low 1.8 - 2.4 mg/dL [facility] Comment on above: RESULTS CALLED TO ELIZABETH SEXTON NP No Panel Informationon 09-28 Interpretation and review of laboratory results Abnormal [facility] Amphetamine Screen Ql (U)Ord ered By: rosalie Asa on 07-09-2024 Amphetamines Ql (U) Amphetamines screen Negativ e [facility] Amphetamines Ql (U) Negative Negative [facility] Barbiturates [Presence] in U rine by Screen methodOrdered By: Imad Asaad on 07-09-2024 Barbiturates Screen Ql (U) Negative Negative [facility] Barbiturates Screen Ql (U) Barbiturates [Presence] in Urine by Screen method Negative [facility] Benzodiazepines Screen Ql (U )Ordered By: Imad Asaad on 07-09-2024 Benzodiazepines Ql (U) Negative Negative [facility] Benzodiazepines Ql (U) Benzodiazepines [Presence] in Urine by Screen method Negative [facility] Benzoylecgonine [Presence] i n Urine by Screen methodOrdered By: Imad Asaad on 07-09-2024 Benzoylecgonine Screen Ql (U) Negative Negative [facility] Benzoylecgonine Screen Ql (U) Benzoylecgonine [Presence] in Urine by Screen method Negative [facility] Cannabinoids [Presence] in U rine by Screen methodOrdered By: Imad Asaad on 07-09-2024 Cannabinoids Screen Ql (U) Negative Negative [facility] Comment on above: These are unconfirme d results and should not be used for legal purposes. Drug Cut-Off Concentration: AMPH 1000 ng/mL MAX 200 ng/mL JUHI 200 ng/mL COCM 300 ng/mL OP 300 ng/mL PCP 25 ng/mL THC 20 ng/mL Cannabinoids Screen Ql (U) Cannabinoids [Presence] in Urine by Screen method Negative [facility] Comment on above: These are unconfirme d results and should not be used for legal purposes. Drug Cut-Off Concentration: AMPH 1000 ng/mL MAX 200 ng/mL JUHI 200 ng/mL COCM 300 ng/mL OP 300 ng/mL PCP 25 ng/mL THC 20 ng/mL Drug Screen,Urineon 07-09-20 24 Amphetamine Screen,Urine Negative Normal Negative [facility] Comment on above: Performed By: #### U RDS #### [address] Barbiturate Screen,Urine Negative Normal Negative [facility] Comment on above: Performed By: #### U RDS #### [address] Benzodiazepines Screen,Urine Negative Normal Negative [facility] Comment on above: Performed By: #### U RDS #### [address] Cannabinoid Screen,Urine Negative Normal Negative [facility] Comment on above: Result Comment: Thes e are unconfirmed results and should not be used for legal purposes. Drug Cut-Off Concentration: AMPH 1000 ng/mL MAX 200 ng/mL JUHI 200 ng/mL COCM 300 ng/mL OP 300 ng/mL PCP 25 ng/mL THC 20 ng/mL PERFORMED BY: [place] [address] PATHOLOGIST [employer]OLOG[employer] MODELER ZUHAIR KAUR M.D. Performed By: #### U RDS #### [address] Cocaine Screen,Urine Negative Normal Negative [facility] Comment on above: Performed By: #### U RDS #### [address] Opiate Screen,Urine Negative Normal Negative [facility] Comment on above: Performed By: #### U RDS #### [address] Phencyclidine Screen,Urine Negative Normal Negative [facility] Comment on above: Performed By: #### U RDS #### [address] No Panel InformationOrdered By: James Elaine on 07-09-2024 Miscellaneous Pathology Test See comment [facility] Comment on above: See report. Scanned copy available in EMR. Opiates [Presence] in Urine by Screen methodOrdered By: James Elaine on 07-09-2024 Opiates Screen Ql (U) Negative Negative [facility] Opiates Screen Ql (U) Opiates [Presence] in Urine by Screen method Negative [facility] Pathology Request for Lab Co rpon 07-09-2024 Pathology Request for Lab Itzel Normal [facility] Comment on above: Order Comment: PATHO LOGY GI SPECIMEN Result Comment: See report. Scanned copy available in EMR. PERFORMED BY: [place] [address] PATHOLOGIST [employer]OLOGICAL MODELER ZUHAIR KAUR M.D. Performed By: #### P ATH TO [facility] #### [address] Phencyclidine Screen Ql (U)O rdered By: James Elaine on 07-09-2024 Phencyclidine Ql (U) Negative Negative [facility] Phencyclidine Ql (U) Phencyclidine [Presence] in Urine by Screen method Negative [facility] ALL MAGNESIUMon 06-23-2024 Magnesium [Mass/Vol] 1.5 mg/dL Low 1.8 - 2 .4 mg/dL [facility] ALL RENAL FUNCTION PANELon 1 Albumin [Mass/Vol] 3.3 g/dL Low 3.4 - 5.0 g/dL [facility] Anion gap [Moles/Vol] 12.6 mmol/L [facility] Calcium [Mass/Vol] 8.7 mg/dL 8.5 - 10. 1 mg/dL [facility] Chloride [Moles/Vol] 104 mmol/L 98 - 10 7 mmol/L [facility] CO2 [Moles/Vol] 26.1 mmol/L 21.0 - 32.0 mmol/L [facility] Creatinine [Mass/Vol] 1.72 mg/dL High 0.70 - 1.30 mg/dL [facility] GFR/1.73 sq M.predicted CKD-EPI (S/P/Bld) [Vol rate/Area] 50 Low 60 - PINF [facility] Glucose [Mass/Vol] 114 mg/dL High 74 - 106 mg/dL [facility] Phosphate [Mass/Vol] 3.2 mg/dL 2.6 - 4 .7 mg/dL [facility] Potassium [Moles/Vol] 4.7 mmol/L 3.5 - 5.1 mmol/L [facility] Sodium [Moles/Vol] 138 mmol/L 136 - 145 mmol/L [facility] TBH EGFR-NON AF SLOVENIAN 41 Low 60 - PINF [facility] Urea nitrogen [Mass/Vol] 30.0 mg/dL High 7.0 - 18.0 mg/dL [facility] Urea nitrogen/Creatinine [Mass ratio] 17.4 mg/mg [facility] ALL URIC ACIDon 06-23-2024 Urate [Mass/Vol] 8.0 mg/dL High 3.5 - 7.2 mg/dL [facility] Estimated glomerular filtrat ion rate (GFR) non- Americanon 06-23-2024 GFR/1.73 sq M.predicted among non-blacks MDRD (S/P/Bld) [Vol rate/Area] 41 mL/min/{1.73_m2} Low >=60 [facility] Laboratory - Chemistry and C hemistry - challengeon 06-23-2024 Albumin [Mass/Vol] 3.3 g/dL Low 3.4-5.0 [facility] Calcium [Mass/Vol] 8.7 mg/dL 8.5-10.1 [facility] Chloride [Moles/Vol] 104 mmol/L 98-107 [facility] CO2 [Moles/Vol] 26.1 mmol/L 21.0-32.0 [facility] Creatinine [Mass/Vol] 1.72 mg/dL High 0.70-1.30 [facility] GFR/1.73 sq M.predicted MDRD (S/P/Bld) [Vol rate/Area] 50 mL/min/{1.73_m2} Low >=60 [facility] Glucose [Mass/Vol] 114 mg/dL High 74-106 [facility] Magnesium [Mass/Vol] 1.5 mg/dL Low 1.8-2.4 [facility] Potassium [Moles/Vol] 4.7 mmol/L 3.5-5.1 [facility] Sodium [Moles/Vol] 138 mmol/L 136-145 [facility] Urate [Mass/Vol] 8.0 mg/dL High 3.5-7.2 [facility] Urea nitrogen [Mass/Vol] 30.0 mg/dL High 7.0-18.0 [facility] Urea nitrogen/Creatinine [Mass ratio] 17.4 mg/mg [facility] Laboratory - Urinalysison Protein (U) [Mass/Vol] 12.6 mg/dL High <=11.9 [facility] No Panel Informationon 06-23 Urine Random Creatinine 78.13 mg/dL 20.00-300.00 [facility] Interpretation and review of laboratory results Abnormal [facility] Phosphorus Level 3.2 mg/dL 2.6-4.7 [facility] Serum or plasma anion gap de terminationon 06-23-2024 Anion gap [Moles/Vol] 12.6 mmol/L [facility] Urine protein/creatinine rat ioon 06-23-2024 Protein/Creatinine (U) [Ratio] 0.16 [facility] BASIC METABOLIC PANLon 04-27 Anion gap [Moles/Vol] 9 mmol/L Normal 5-15 [facility] Comment on above: Performed By: #### B MP #### [facility] ([id number]) [address], [address] [place] [address] Calcium [Mass/Vol] 9.5 mg/dL Normal 8.5-10.5 [facility] Comment on above: Performed By: #### B MP #### [facility] ([id number]) [address] [place] [address] Chloride [Moles/Vol] 105 mmol/L Normal 98-109 [facility] Comment on above: Performed By: #### B MP #### [facility] ([id number]) [address] [place] [address] CO2 [Moles/Vol] 25 mmol/L Normal 22-32 [facility] Comment on above: Performed By: #### B MP #### [facility] ([id number]) [address], [address] [place] [address] Creatinine [Mass/Vol] 1.60 mg/dL High 0.60-1.30 [facility] Comment on above: Result Comment: METH OD TRACEABLE TO IDMS STANDARD Performed By: #### B MP #### [facility] ([id number]) [address], [address] [place] [address] GFR/1.73 sq M.predicted among non-blacks MDRD (S/P/Bld) [Vol rate/Area] 50 mL/min/{1.73_m2} Low >59 [facility] Comment on above: Result Comment: Reported eGFR is based on the CKD-EPI 2020 equation that does not use a race coefficient. Performed By: #### B MP #### [facility] ([id number]) [address], [address] [place] [address] Glucose [Mass/Vol] 104 mg/dL High 65-99 [facility] Comment on above: Performed By: #### B MP #### [facility] ([id number]) [address] [facility] [place] [address] Potassium [Moles/Vol] 4.2 mmol/L Normal 3.5-5.0 [facility] Comment on above: Performed By: #### B MP #### [facility] ([id number]) [address], [address] [place] [address] Sodium [Moles/Vol] 139 mmol/L Normal 134-146 [facility] Comment on above: Performed By: #### B MP #### [facility] ([id number]) [address] [address] [place] [address] Urea nitrogen [Mass/Vol] 31 mg/dL High 5-23 [facility] Comment on above: Performed By: #### B MP #### [facility] ([id number]) [address] [place] [address] Basic Metabolic Panelon Anion gap [Moles/Vol] 9 mmol/L 5 - 15 mmol/L [facility] Calcium [Mass/Vol] 9.5 mg/dL 8.5 - 10. 5 mg/dL [facility] Chloride [Moles/Vol] 105 mmol/L 98 - 10 9 mmol/L [facility] CO2 [Moles/Vol] 25 mmol/L 22 - 32 mmol/L [facility] Creatinine [Mass/Vol] 1.60 mg/dL High 0.60 - 1.30 mg/dL [facility] Comment on above: METHOD TRACEABLE TO IDPA STANDARD eGFR (CKD-EPI)non-race dependent 50 Low - PINF [facility] Comment on above: Reported eGFR is based on the CKD-EPI 2020 equation that does not use a race coefficient. Glucose [Mass/Vol] 104 mg/dL High 65 - 99 mg/dL [facility] Interpretation and review of laboratory results Abnormal [facility] Potassium [Moles/Vol] 4.2 mmol/L 3.5 - 5.0 mmol/L [facility] Sodium [Moles/Vol] 139 mmol/L 134 - 146 mmol/L [facility] Urea nitrogen [Mass/Vol] 31 mg/dL High 5 - 23 mg/dL [facility] CBC AUTO DIFFon 07-19-2022 BASO # 0.1 103/ul Normal 0.0-0.1 [facility] Comment on above: Performed By: #### C BC #### [facility] [address] [place] [address] Dr. Lavonne Tinoco Basophils/100 WBC (Bld) 0.9 % Normal 0.2-2.0 [facility] Comment on above: Performed By: #### C BC #### [facility] [address] [address] [address] Lavonne Tinoco EO # 0.4 103/ul Normal 0.0-0.7 [facility] Comment on above: Performed By: #### C BC #### [facility] [address] [place] [address] Dr. Lavonne Tinoco Eosinophils/100 WBC (Bld) 4.5 % Normal 0.9-7.0 [facility] Comment on above: Performed By: #### C BC #### [facility] [address] [place] [address] Dr. Lavonne Tinoco Erythrocyte distribution width (RBC) [Ratio] 13.4 % Normal 11.0-15.0 [facility] Comment on above: Performed By: #### C BC #### [facility] [address] [place] [address] Dr. Lavonne Tinoco Hematocrit (Bld) [Volume fraction] 45.0 % Normal 42.0-54.0 [facility] Comment on above: Performed By: #### C BC #### [facility] [address] [place] [address] Dr. Lavonne Tinoco Hemoglobin (Bld) [Mass/Vol] 15.1 g/dL Normal 14.0-18.0 [facility] Comment on above: Performed By: #### C BC #### [facility] [address] [place] [address] Dr. Lavonne Tinoco IG # 0.04 10e3/ul Critically high 0.00-0.03 [facility] Comment on above: Performed By: #### C BC #### [facility] [address] [place] [address] Dr. Lavonne Tinoco IG % 0.4 % Normal 0.0-0.5 [facility] Comment on above: Performed By: #### C BC #### [facility] [address] [place] [address] Dr. Lavonne Tinoco LYMPH # 2.0 103/ul Normal 1.2-3.8 [facility] Comment on above: Performed By: #### C BC #### [facility] [address] [place] [address] Dr. Lavonne Tinoco Lymphocytes/100 WBC (Bld) 21.6 % Normal 20.5-60.0 [facility] Comment on above: Performed By: #### C BC #### [facility] [address] [place] [address] Dr. Lavonne Tinoco MANUAL DIFF REQ NO Normal [facility] Comment on above: Performed By: #### C BC #### [facility] [address] [place] [address] Dr. Lavonne Tinoco MCH (RBC) [Entitic mass] 32.7 pg Normal 25.9-34.0 [facility] Comment on above: Performed By: #### C BC #### [facility] [address] [place] [address] Dr. Lavonne Tinoco MCHC (RBC) [Mass/Vol] 33.6 g/dL Normal 29.9-35.2 [facility] Comment on above: Performed By: #### C BC #### [facility] [address] [place] [address] Dr. Lavonne Tinoco MCV (RBC) [Entitic vol] 97.4 fL Critically high 80.0-94.0 [facility] Comment on above: Performed By: #### C BC #### [facility] [address] [place] [address] Dr. Lavonne Tinoco MONO # 0.6 103/ul Normal 0.3-0.8 [facility] Comment on above: Performed By: #### C BC #### [facility] [address] [place] [address] Dr. Lavonne Tinoco Monocytes/100 WBC (Bld) 6.0 % Normal 1.7-12.0 [facility] Comment on above: Performed By: #### C BC #### [facility] [address] [place] [address] Dr. Lavonne Tinoco NEUT # 6.3 103/ul Normal 1.4-6.5 [facility] Comment on above: Performed By: #### C BC #### [facility] [address] [place] [address] Dr. Lavonne Tinoco Neutrophils/100 WBC (Bld) 66.6 % Normal 43.0-75.0 [facility] Comment on above: Performed By: #### C BC #### [facility] [address] [place] [address] Dr. Lavonne Tinoco Platelet mean volume (Bld) [Entitic vol] 10.7 fL Normal 9.5-13.5 [facility] Comment on above: Performed By: #### C BC #### [facility] [address] [place] [address] Dr. Lavonne Tinoco PLT 300 103/ul Normal 150-450 [facility] Comment on above: Performed By: #### C BC #### [facility] [address] [address] [address] Lavonne Tinoco RBC 4.62 106/ul Critically low 4.70-6.10 [facility] Comment on above: Performed By: #### C BC #### [facility] [address] [place] [address] Dr. Lavonne Tinoco WBC 9.4 103/ul Normal 4.0-11.0 [facility] Comment on above: Performed By: #### C BC #### [facility] [address] [place] [address] Dr. Lavonne Tinoco FREE T4on 07-19-2022 Free T4 [Mass/Vol] 0.90 ng/dL Normal 0.76-1.46 [facility] Comment on above: Performed By: #### C MP, TSH, LIPID #### [facility] [address] [place] [address] Dr. Lavonne Tinoco LIPID PROFILEon 07-19-2022 CHOL-HDL RATIO NORM SEE BELOW Normal [facility] Comment on above: Result Comment: 3.3 - 4.4 LOW RISK 4.4 - 7.1 AVERAGE RISK 7.1 - 11.0 MODERATE RISK >11.0 HIGH RISK Performed By: #### C MP, TSH, LIPID #### [facility] [address] [place] [address] Dr. Lavonne Tinoco Cholesterol [Mass/Vol] 207 mg/dL Critically high <=200 [facility] Comment on above: Performed By: #### C MP, TSH, LIPID #### [facility] [address] [place] [address] Dr. Lavonne Tinoco Cholesterol in HDL [Mass/Vol] 37 mg/dL Critically low 40-60 [facility] Comment on above: Performed By: #### C MP, TSH, LIPID #### [facility] [address] [address] [address] Lavonne Tinoco Cholesterol in LDL [Mass/Vol] 143.8 mg/dL Normal [facility] Comment on above: Performed By: #### C MP, TSH, LIPID #### [facility] [address] [address] [address] Lavonne Tinoco Cholesterol.total/Chol esterol in HDL [Mass ratio] 5.6 {ratio} Normal [facility] Comment on above: Performed By: #### C MP, TSH, LIPID #### [facility] [address] [address] [address] Lavonne Tinoco HDL NORMAL > or = 60 mg/dl - LOW CARDIOVASCULAR RISK <40 mg/dl - HIGH CARDIOVASCULAR RISK Normal [facility] Comment on above: Performed By: #### C MP, TSH, LIPID #### [facility] [address] [address] [address] Lavonne Tinoco LDL CALC NORMAL SEE BELOW Normal [facility] Comment on above: Result Comment: <100 mg/dl OPTIMAL 100 - 129 mg/dl NEAR OR ABOVE OPTIMAL 130 - 159 mg/dl BORDERLINE HIGH 160 - 189 mg/dl HIGH >190 mg/dl VERY HIGH Performed By: #### C MP, TSH, LIPID #### [facility] [address] [place] [address] Dr. Lavonne Tinoco Triglyceride [Mass/Vol] 131 mg/dL Normal <=150 [facility] Comment on above: Performed By: #### C MP, TSH, LIPID #### [facility] [address] [address] [address] Lavonne Tinoco VLDL CALC 26.2 mg/dL Normal [facility] Comment on above: Performed By: #### C MP, TSH, LIPID #### [facility] [address] [place] [address] Dr. Lavonne Tinoco PROF 14(COMP METB)on 022 Albumin [Mass/Vol] 3.6 g/dL Normal 3.4-5.0 [facility] Comment on above: Performed By: #### C MP, TSH, LIPID #### [facility] [address] [address] [address] Lavonne Tinoco Albumin/Globulin [Mass ratio] 1.0 {ratio} Normal [facility] Comment on above: Performed By: #### C MP, TSH, LIPID #### [facility] [address] [address] [address] Lavonne Tinoco ALP [Catalytic activity/Vol] 85 U/L Normal 46-116 [facility] Comment on above: Performed By: #### C MP, TSH, LIPID #### [facility] [address] [address] [address] Lavonne Tinoco ALT [Catalytic activity/Vol] 33 U/L Normal 16-63 [facility] Comment on above: Performed By: #### C MP, TSH, LIPID #### [facility] [address] [address] [address] Lavonne Tinoco Anion gap [Moles/Vol] 9.2 mmol/L Normal [facility] Comment on above: Performed By: #### C MP, TSH, LIPID #### [facility] [address] [address] [address] Lavonne Tinoco AST [Catalytic activity/Vol] 17 U/L Normal 15-37 [facility] Comment on above: Performed By: #### C MP, TSH, LIPID #### [facility] [address] [address] [address] Lavonne Tinoco Bilirubin [Mass/Vol] 0.5 mg/dL Normal 0.2-1.0 [facility] Comment on above: Performed By: #### C MP, TSH, LIPID #### [facility] [address] [address] [address] Lavonne Tinoco Calcium [Mass/Vol] 8.5 mg/dL Normal 8.5-10.1 [facility] Comment on above: Performed By: #### C MP, TSH, LIPID #### [facility] [address] [address] [address] Lavonne Tinoco Chloride [Moles/Vol] 106 mmol/L Normal 98-107 [facility] Comment on above: Performed By: #### C MP, TSH, LIPID #### [facility] [address] [address] [address] Lavonne Tinoco CO2 [Moles/Vol] 31.3 mmol/L Normal 21.0-32.0 [facility] Comment on above: Performed By: #### C MP, TSH, LIPID #### [facility] [address] [address] [address] Lavonne Tinoco Creatinine [Mass/Vol] 1.06 mg/dL Normal 0.70-1.30 [facility] Comment on above: Performed By: #### C MP, TSH, LIPID #### [facility] [address] [address] [address] Lavonne Tinoco EGFR-AF SLOVENIAN >60 Normal >=60 [facility] Comment on above: Performed By: #### C MP, TSH, LIPID #### [facility] [address] [address] [address] Lavonne Tinoco EGFR-NON AF SLOVENIAN >60 Normal >=60 [facility] Comment on above: Performed By: #### C MP, TSH, LIPID #### [facility] [address] [address] [address] Lavonne Tinoco Globulin (S) [Mass/Vol] 3.6 g/dL Normal [facility] Comment on above: Performed By: #### C MP, TSH, LIPID #### [facility] [address] [address] [address] Lavonne Tinoco Glucose [Mass/Vol] 101 mg/dL Normal 74-106 [facility] Comment on above: Performed By: #### C MP, TSH, LIPID #### [facility] [address] [address] [address] Lavonne Tinoco Potassium [Moles/Vol] 3.5 mmol/L Normal 3.5-5.1 [facility] Comment on above: Performed By: #### C MP, TSH, LIPID #### [facility] [address] [address] [address] Lavonne Tinoco Protein [Mass/Vol] 7.2 g/dL Normal 6.4-8.2 [facility] Comment on above: Performed By: #### C MP, TSH, LIPID #### [facility] [address] [place] [address] Dr. Lavonne Tinoco Sodium [Moles/Vol] 143 mmol/L Normal 136-145 [facility] Comment on above: Performed By: #### C MP, TSH, LIPID #### [facility] [address] [place] [address] Dr. Lavonne Tinoco Urea nitrogen [Mass/Vol] 21.0 mg/dL Critically high 7.0-18.0 [facility] Comment on above: Performed By: #### C MP, TSH, LIPID #### [facility] [address] [place] [address] Dr. Lavonne Tinoco Urea nitrogen/Creatinine [Mass ratio] 19.8 mg/mg Normal [facility] Comment on above: Performed By: #### C MP, TSH, LIPID #### [facility] [address] [place] [address] Dr. Lavonne Tinoco TSHon 07-19-2022 TSH 1.947 uIU/mL Normal 0.358-3.740 [facility] Comment on above: Performed By: #### C MP, TSH, LIPID #### [facility] [address] [place] [address] Dr. Lavonne Tinoco UA RANDOM W/MICROSCOPICon BACTERIA NONE SEEN Normal NONE SEEN [facility] Comment on above: Performed By: #### U AMIC #### [facility] [facility] [address] [place] [address] Dr. Lavonne Tinoco Bilirubin Ql (U) Negative Normal NEGATIVE [facility] Comment on above: Performed By: #### U AMIC #### [facility] [address] [place] [address] Dr. Lavonne Tinoco CAST NONE SEEN Normal NONE SEEN [facility] Comment on above: Performed By: #### U AMIC #### [facility] [address] [place] [address] Dr. Lavonne Tinoco Clarity (U) CLEAR Normal CLEAR [facility] Comment on above: Performed By: #### U AMIC #### [facility] [address] [address] [address] Lavonne Tinoco Color (U) YELLOW Normal YELLOW [facility] Comment on above: Performed By: #### U AMIC #### [facility] [address] [address] [address] Lavonne Tinoco Crystals LM Nom (Urine sed) NONE SEEN Normal NONE SEEN [facility] Comment on above: Performed By: #### U AMIC #### [facility] [address] [address] [address] Lavonne Tinoco Epithelial cells LM Ql (Urine sed) FEW Abnormal NONE SEEN /RARE [facility] Comment on above: Performed By: #### U AMIC #### [facility] [address] [address] [address] Lavonne Tinoco Glucose Ql (U) Negative Normal NEGATIVE The [facility] Comment on above: Performed By: #### U AMIC #### [facility] [address] [address] [address] Lavonne Tinoco Hemoglobin Ql (U) Negative Normal NEGATIVE The [facility] Comment on above: Performed By: #### U AMIC #### [facility] [address] [address] [address] Lavonne Tinoco Ketones Ql (U) Negative Normal NEGATIVE [facility] Comment on above: Performed By: #### U AMIC #### [facility] [address] [address] [address] Lavonne Tinoco LEUKOCYTES TRACE Abnormal NEGATIVE [facility] Comment on above: Performed By: #### U AMIC #### [facility] [address] [address] [address] Lavonne Tinoco MUCOUS NONE SEEN Normal NONE SEEN [facility] Comment on above: Performed By: #### U AMIC #### [facility] [address] [address] [address] Lavonne Tinoco Nitrite Ql (U) Negative Normal NEGATIVE [facility] Comment on above: Performed By: #### U AMIC #### [facility] [address] [place] [address] Dr. Lavonne Tinoco pH (U) 6.0 [pH] Normal 5-9 [facility] Comment on above: Performed By: #### U AMIC #### [facility] [address] [place] [address] Dr. Lavonne Tinoco RBC NONE SEEN Abnormal 0-2 [facility] Comment on above: Performed By: #### U AMIC #### [facility] [address] [place] [address] Dr. Lavonne Tinoco SPEC GRAVITY 1.020 Normal 1.005-<=1.025 [facility] Comment on above: Performed By: #### U AMIC #### [facility] [address] [place] [address] Dr. Lavonne Tinoco UA PROTEIN TRACE Normal NEGATIVE/ TRACE [facility] Comment on above: Performed By: #### U AMIC #### [facility] [address] [place] [address] Dr. Lavonne Tinoco Urobilinogen Qn (U) 2.0 {Erick'U}/dL Abnormal 0.2 - 1. 0 [facility] Comment on above: Performed By: #### U AMIC #### [facility] [address] [place] [address] Dr. Lavonne Tinoco WBC 0-2 Abnormal NONE SEEN [facility] Comment on above: Performed By: #### U AMIC #### [facility] [address] [place] [address] Dr. Lavonne Tinoco NM STRESS/REST MULTIon 04-04 NM STRESS/REST MULTI Patient: ABRAM GUILLAUME Exam Date: 04/04/2022 : 1965 Gender:M Ordering : ROSI SEXTON CNP Admission #: [id number] Family : Order #: [id number] CLICK HERE TO VIEW EXAM RADIOLOGY REPORT [...] Gan MD on 04/04/2022 at 13:16 Normal [facility] ECHOCARDIO M/2D COMPLETEon 0 02-27-2022 ECHOCARDIO M/2D COMPLETE Patient: ABRAM GUILLAUME Exam Date: 02/27/2022 : 1965 Gender:M Ordering : [facility] Admission #: [id number] Family : Order #: [id number] CLICK HERE TO VIEW EXAM ECHOCARDIOGRAM REPORT [...] Area(A4C): 21.60 cm2 Left Atrium Systolic Volume(A2C): 10175 mm3 Left Atrium Systolic Volume(A4C): 64091 mm3 Mitral Valve MV E to A [...] Peck M.D. on 02/28/2022 at 11:52 Normal [facility] ANKLE LEFT 3 VWSon 2 ANKLE LEFT 3 [facility] Department of Radiology [address] [place] [id number] Patient Name: ABRAM GUILLAUME : 1965 [...] Weight Bearing?: Y Exam: ANKLE LEFT 3 [facility] ANKLE LEFT 3 [facility] 01/11/2022 9:13 AM CLINICAL INDICATIONS: [id number] [...] above Electronically signed: Violeta Jay. Transcribed by: [email or web address], User Resident: Electronically Signed by: VIOLETA JAY @ 01/12/2022 03:24 PM Normal [facility] Comment on above: Order Comment: Views (X-RAY, ANKLE): AP, Lateral, Mortise , Weight Bearing?: Y GLYCOHEMOGLOBIN A1Con 2021 ADA RECOMMENDATION ADA THERAPEUTIC TARGET 6.0 - 7.0 ACTION SUGGESTED > 7.0 Normal [facility] Comment on above: Performed By: #### A 1C #### [facility] [address] [place] [address] Dr. Lavonne Tinoco Glucose [Mass/Vol] 100 mg/dL Normal [facility] Comment on above: Performed By: #### A 1C #### [facility] [address] [place] [address] Dr. Lavonne Tinoco HbA1c (Bld) [Mass fraction] 5.1 % Normal <=6.0 [facility] Comment on above: Performed By: #### A 1C #### [facility] [address] [place] [address] Dr. Lavonne Tinoco MAGNESIUMon 12-25-2021 Magnesium [Mass/Vol] 1.7 mg/dL Normal 1.6-2.3 [facility] Comment on above: Performed By: #### M G, BMP #### [facility] [address] [address] [address] Lavonne Tinoco PROF CHEM 8 (BAS METB)on Anion gap [Moles/Vol] 12.3 mmol/L Normal [facility] Comment on above: Performed By: #### M Allison, BMP #### [facility] [address] [place] [address] Dr. Lavonne Tinoco Calcium [Mass/Vol] 8.7 mg/dL Normal 8.5-10.1 The [facility] Comment on above: Performed By: #### M G, BMP #### [facility] [address] [address] [address] Lavonne Tinoco Chloride [Moles/Vol] 107 mmol/L Normal 98-107 [facility] Comment on above: Performed By: #### M G, BMP #### [facility] [address] [address] [address] Lavonne Tinoco CO2 [Moles/Vol] 27.4 mmol/L Normal 22.0-30.0 [facility] Comment on above: Performed By: #### M G, BMP #### [facility] [address] [address] [address] Laovnne Tinoco Creatinine [Mass/Vol] 1.50 mg/dL Critically high 0.66-1.25 [facility] Comment on above: Performed By: #### M G, BMP #### [facility] [address] [address] [address] Lavonne Tinoco EGFR-AF SLOVENIAN 59 mL/min/1.73m2 Critically low >=60 [facility] Comment on above: Performed By: #### M G, BMP #### [facility] [address] [address] [address] Lavonne Tinoco EGFR-NON AF SLOVENIAN 49 mL/min/1.73m2 Critically low >=60 [facility] Comment on above: Performed By: #### M G, BMP #### [facility] [address] [address] [address] Lavonne Tinoco Glucose [Mass/Vol] 103 mg/dL Normal 74-106 The [facility] Comment on above: Performed By: #### M G, BMP #### [facility] [address] [address] [address] Lavonne Tinoco Potassium [Moles/Vol] 3.7 mmol/L Normal 3.4-5.0 [facility] Comment on above: Performed By: #### M G, BMP #### [facility] [address] [address] [address] Lavonne Tinoco Sodium [Moles/Vol] 143 mmol/L Normal 137-145 [facility] Comment on above: Performed By: #### M G, BMP #### [facility] [address] [address] [address] Lavonne Tinoco Urea nitrogen [Mass/Vol] 17.0 mg/dL Normal 7.0-18.0 [facility] Comment on above: Performed By: #### M G, BMP #### [facility] [address] [address] [address] Lavonne Tinoco Urea nitrogen/Creatinine [Mass ratio] 11.3 mg/mg Normal [facility] Comment on above: Performed By: #### M G, BMP #### [facility] [address] [address] [address] Lavonne Tinoco Vital Signs Date Time Vital Sign Value Performing Clinician Facility 05-06-2025 08:25-0400 Body mass index (BMI) [Ratio] 39.67 kg/m2 Pepper Sexton COVER MARKER Work Phone: [facility] 05-06-2025 08:25-0400 Body temperature 97.81 [degF] Pepper Sexton COVER MARKER Work Phone: [facility] 05-06-2025 08:25-0400 Body weight 121.84 kg Pepper Sexton COVER MARKER Work Phone: [facility] 05-06-2025 08:25-0400 Diastolic blood pressure 94 mm[Hg] Pepper Sexton COVER MARKER Work Phone: [facility] 05-06-2025 08:25-0400 Heart rate 95 /min Pepper Carlie COVER MARKER Work Phone: [facility] 05-06-2025 08:25-0400 Respiratory rate 22 /min Pepper Sexton COVER MARKER Work Phone: [facility] 05-06-2025 08:25-0400 SaO2% (BldA) [Mass fraction] 92 % Pepper Sexton COVER MARKER Work Phone: [facility] 05-06-2025 08:25-0400 Systolic blood pressure 144 mm[Hg] Pepper Carlie COVER MARKER Work Phone: [facility] 04-29-2025 08:46-0400 Body height 175.3 cm Robert Kumar MD Work Phone: [facility] 04-29-2025 08:46-0400 Body mass index (BMI) [Ratio] 39.13 kg/m2 Robert Kumar MD Work Phone: [facility] 04-29-2025 08:46-0400 Body weight 120.2 kg Robert Kumar MD Work Phone: [facility] 04-29-2025 08:46-0400 Diastolic blood pressure 108 mm[Hg] Robert Kumar MD Work Phone: [facility] 04-29-2025 08:46-0400 Heart rate 97 /min Robert Kumar MD Work Phone: [facility] 04-29-2025 08:46-0400 SaO2% (BldA) [Mass fraction] 91 % Robert Kumar MD Work Phone: [facility] 04-29-2025 08:46-0400 Systolic blood pressure 164 mm[Hg] Robert Kumar MD Work Phone: [facility] 04-07-2025 08:20-0400 Body mass index (BMI) [Ratio] 38.4 kg/m2 Pepper Carlie COVER MARKER Work Phone: [facility] 04-07-2025 08:20-0400 Body temperature 97.81 [degF] Pepper Carlie COVER MARKER Work Phone: [facility] 04-07-2025 08:20-0400 Body weight 117.94 kg Pepper Carlie COVER MARKER Work Phone: [facility] 04-07-2025 08:20-0400 Diastolic blood pressure 106 mm[Hg] Pepper Danez COVER MARKER Work Phone: [facility] 04-07-2025 08:20-0400 Heart rate 97 /min Pepper Aichholz COVER MARKER Work Phone: [facility] 04-07-2025 08:20-0400 Respiratory rate 18 /min Pepper Aichholz COVER MARKER Work Phone: [facility] 04-07-2025 08:20-0400 SaO2% (BldA) [Mass fraction] 93 % Pepper Aichholz COVER MARKER Work Phone: [facility] 04-07-2025 08:20-0400 Systolic blood pressure 160 mm[Hg] Pepper Aichholz COVER MARKER Work Phone: [facility] 04-06-2025 14:45-0400 Diastolic blood pressure 118 mm[Hg] Pepper Aichholz Work Phone: [facility] 04-06-2025 14:45-0400 Heart rate 103 /min Pepper Aichholz Work Phone: [facility] 04-06-2025 14:45-0400 Systolic blood pressure 162 mm[Hg] Pepper Aichholz Work Phone: [facility] 04-06-2025 14:39-0400 Body weight 115.21 kg Pepper Aichholz Work Phone: [facility] 04-06-2025 14:39-0400 Respiratory rate 18 /min Pepper Aichholz Work Phone: [facility] 04-06-2025 14:39-0400 SaO2% (BldA) [Mass fraction] 96 % Pepper Aichholz Work Phone: [facility] 04-01-2025 09:49-0400 Body height 175.3 cm Robert Kumar MD Work Phone: [facility] 04-01-2025 09:49-0400 Body mass index (BMI) [Ratio] 37.66 kg/m2 Robert Kumar MD Work Phone: [facility] 04-01-2025 09:49-0400 Body weight 115.67 kg Robert Kumar MD Work Phone: [facility] 04-01-2025 09:49-0400 Diastolic blood pressure 122 mm[Hg] Robert Kumar MD Work Phone: [facility] 04-01-2025 09:49-0400 Heart rate 91 /min Robert Kumar MD Work Phone: [facility] 04-01-2025 09:49-0400 Systolic blood pressure 177 mm[Hg] Robert Kumar MD Work Phone: [facility] 03-08-2025 08:54-0400 Diastolic blood pressure 92 mm[Hg] Pepper Danez COVER MARKER Work Phone: [facility] 03-08-2025 08:54-0400 Systolic blood pressure 144 mm[Hg] Pepper Aichholz COVER MARKER Work Phone: [facility] 03-08-2025 08:26-0400 Body mass index (BMI) [Ratio] 38.28 kg/m2 Pepper Aichholz COVER MARKER Work Phone: [facility] 03-08-2025 08:26-0400 Body temperature 98.1 [degF] Pepper Aichholz COVER MARKER Work Phone: [facility] 03-08-2025 08:26-0400 Body weight 117.57 kg Pepper Aichholz COVER MARKER Work Phone: [facility] 03-08-2025 08:26-0400 Heart rate 76 /min Pepper Aichholz COVER MARKER Work Phone: [facility] 03-08-2025 08:26-0400 Respiratory rate 20 /min Pepper Aichholz COVER MARKER Work Phone: [facility] 03-08-2025 08:26-0400 SaO2% (BldA) [Mass fraction] 94 % Pepper Aichholz COVER MARKER Work Phone: [facility] 02-17-2025 16:45-0400 Body mass index (BMI) [Ratio] 38.16 kg/m2 Pepper Sexton COVER MARKER Work Phone: [facility] 02-17-2025 16:45-0400 Body temperature 98.01 [degF] Pepper Sexton COVER MARKER Work Phone: [facility] 02-17-2025 16:45-0400 Body weight 117.21 kg Pepper Sexton COVER MARKER Work Phone: [facility] 02-17-2025 16:45-0400 Diastolic blood pressure 90 mm[Hg] Pepper Velaz COVER MARKER Work Phone: [facility] 02-17-2025 16:45-0400 Heart rate 104 /min Pepper Sexton COVER MARKER Work Phone: [facility] 02-17-2025 16:45-0400 Respiratory rate 22 /min Pepper Sexton COVER MARKER Work Phone: [facility] 02-17-2025 16:45-0400 SaO2% (BldA) [Mass fraction] 94 % Pepper Sexton COVER MARKER Work Phone: [facility] 02-17-2025 16:45-0400 Systolic blood pressure 116 mm[Hg] Pepper Sexton COVER MARKER Work Phone: [facility] 01-06-2025 09:06-0400 Body height 175.3 cm Pepper Sexton COVER MARKER Work Phone: [facility] 01-06-2025 09:06-0400 Body mass index (BMI) [Ratio] 40.46 kg/m2 Pepperjovanny Velaz COVER MARKER Work Phone: [facility] 01-06-2025 09:06-0400 Body temperature 97.81 [degF] Pepper Velaz COVER MARKER Work Phone: [facility] 01-06-2025 09:06-0400 Body weight 124.29 kg Pepper Velaz COVER MARKER Work Phone: [facility] 01-06-2025 09:06-0400 Diastolic blood pressure 82 mm[Hg] Pepper Aichholz COVER MARKER Work Phone: [facility] 01-06-2025 09:06-0400 Heart rate 91 /min Pepper Aichholz COVER MARKER Work Phone: [facility] 01-06-2025 09:06-0400 Respiratory rate 18 /min Pepper Aichholz COVER MARKER Work Phone: [facility] 01-06-2025 09:06-0400 SaO2% (BldA) [Mass fraction] 93 % Pepper Aichholz COVER MARKER Work Phone: [facility] 01-06-2025 09:06-0400 Systolic blood pressure 140 mm[Hg] Pepper Aichholz COVER MARKER Work Phone: [facility] 12-02-2024 13:45-0400 Body height 175.26 cm Pepper Aichholz Work Phone: [facility] 12-02-2024 13:45-0400 Body mass index (BMI) [Ratio] 41 kg/m2 Pepper Aichholz Work Phone: [facility] 12-02-2024 13:45-0400 Body weight 126.09 kg Pepper Aichholz Work Phone: [facility] 12-02-2024 13:45-0400 Diastolic blood pressure 73 mm[Hg] Pepper Aichholz Work Phone: [facility] 12-02-2024 13:45-0400 Heart rate 89 /min Pepper Aichholz Work Phone: [facility] 12-02-2024 13:45-0400 Respiratory rate 18 /min Pepper Aichholz Work Phone: [facility] 12-02-2024 13:45-0400 SaO2% (BldA) [Mass fraction] 95 % Pepper Aichholz Work Phone: [facility] 12-02-2024 13:45-0400 Systolic blood pressure 122 mm[Hg] Pepper Aichholz Work Phone: [facility] 10-07-2024 09:05-0500 Body height 175.3 cm Pepper Aichholz COVER MARKER Work Phone: [facility] 10-07-2024 09:05-0500 Body mass index (BMI) [Ratio] 41.47 kg/m2 Pepper Aichholz COVER MARKER Work Phone: [facility] 10-07-2024 09:05-0500 Body temperature 97.81 [degF] Pepper Aichholz COVER MARKER Work Phone: [facility] 10-07-2024 09:05-0500 Body weight 127.37 kg Pepper Aichholz COVER MARKER Work Phone: [facility] 10-07-2024 09:05-0500 Diastolic blood pressure 84 mm[Hg] Pepper Aichholz COVER MARKER Work Phone: [facility] 10-07-2024 09:05-0500 Heart rate 92 /min Pepper Aichholz COVER MARKER Work Phone: [facility] 10-07-2024 09:05-0500 Respiratory rate 22 /min Pepper Aichholz COVER MARKER Work Phone: [facility] 10-07-2024 09:05-0500 SaO2% (BldA) [Mass fraction] 96 % Pepper Aichholz COVER MARKER Work Phone: [facility] 10-07-2024 09:05-0500 Systolic blood pressure 138 mm[Hg] Pepper Aichholz COVER MARKER Work Phone: [facility] 10-06-2024 09:05-0500 Diastolic blood pressure 86 mm[Hg] Pepper Aichholz Work Phone: [facility] 10-06-2024 09:05-0500 Heart rate 88 /min Pepper Aichholz Work Phone: [facility] 10-06-2024 09:05-0500 Respiratory rate 18 /min Pepper Aichholz Work Phone: [facility] 10-06-2024 09:05-0500 SaO2% (BldA) [Mass fraction] 96 % Pepper Aichholz Work Phone: [facility] 10-06-2024 09:05-0500 Systolic blood pressure 136 mm[Hg] Pepper Aichholz Work Phone: [facility] 10-06-2024 07:31-0500 Body height 177.8 cm Pepper Aichholz Work Phone: [facility] 10-06-2024 07:31-0500 Body weight 115.66 kg Pepper Aichholz Work Phone: [facility] 07-09-2024 13:55-0400 Diastolic blood pressure 74 mm[Hg] Pepper Aichholz Work Phone: [facility] 07-09-2024 13:55-0400 Heart rate 74 /min Pepper Aichholz Work Phone: [facility] 07-09-2024 13:55-0400 Respiratory rate 18 /min Pepper Aichholz Work Phone: [facility] 07-09-2024 13:55-0400 SaO2% (BldA) [Mass fraction] 100 % Pepper Aichholz Work Phone: [facility] 07-09-2024 13:55-0400 Systolic blood pressure 111 mm[Hg] Pepper Aichholz Work Phone: [facility] 07-09-2024 11:51-0400 Body height 175.26 cm Pepper Aichholz Work Phone: [facility] 07-09-2024 11:51-0400 Body temperature 98.6 [degF] Pepper Javierhholz Work Phone: [facility] 07-09-2024 11:51-0400 Body weight 117.9 kg Pepper Aichholz Work Phone: [facility] 07-06-2024 09:44-0400 Body height 175.3 cm Pepper Aichholz COVER MARKER Work Phone: [facility] 07-06-2024 09:44-0400 Body mass index (BMI) [Ratio] 37.18 kg/m2 Pepper Aichholz COVER MARKER Work Phone: [facility] 07-06-2024 09:44-0400 Body temperature 98.1 [degF] Pepper Aichholz COVER MARKER Work Phone: [facility] 07-06-2024 09:44-0400 Body weight 114.22 kg Pepper Aichholz COVER MARKER Work Phone: [facility] 07-06-2024 09:44-0400 Diastolic blood pressure 82 mm[Hg] Pepper Aichholz COVER MARKER Work Phone: [facility] 07-06-2024 09:44-0400 Heart rate 79 /min Pepper Aichholz COVER MARKER Work Phone: [facility] 07-06-2024 09:44-0400 Respiratory rate 19 /min Pepper Aichholz COVER MARKER Work Phone: [facility] 07-06-2024 09:44-0400 SaO2% (BldA) [Mass fraction] 93 % Pepper Aichholz COVER MARKER Work Phone: [facility] 07-06-2024 09:44-0400 Systolic blood pressure 126 mm[Hg] Pepper Aichholz COVER MARKER Work Phone: [facility] 06-24-2024 08:39-0400 Body height 175.26 cm [facility] 06-24-2024 08:39-0400 Body mass index (BMI) [Ratio] 42.3 kg/m2 [facility] 06-24-2024 08:39-0400 Body weight 130 kg [facility] 06-23-2024 08:50-0400 Body height 175.26 cm [facility] 06-23-2024 08:50-0400 Body mass index (BMI) [Ratio] 42.3 kg/m2 [facility] 06-23-2024 08:50-0400 Body temperature 98.2 [degF] [facility] 06-23-2024 08:50-0400 Body weight 129.89 kg [facility] 06-23-2024 08:50-0400 Diastolic blood pressure 77 mm[Hg] [facility] 06-23-2024 08:50-0400 Heart rate 91 /min [facility] 06-23-2024 08:50-0400 Respiratory rate 18 /min [facility] 06-23-2024 08:50-0400 SaO2% (BldA) [Mass fraction] 93 % [facility] 06-23-2024 08:50-0400 Systolic blood pressure 115 mm[Hg] [facility] 04-27-2024 08:35-0400 Body height 175.3 cm [facility] 04-27-2024 08:35-0400 Body mass index (BMI) [Ratio] 38.4 kg/m2 [facility] 04-27-2024 08:35-0400 Body weight 117.[address] 03-19-2024 09:37-0400 Body height 175.26 cm [facility] 03-19-2024 09:37-0400 Body mass index (BMI) [Ratio] 39.4 kg/m2 [facility] 03-19-2024 09:37-0400 Body temperature 97.8 [degF] [facility] 03-19-2024 09:37-0400 Body weight 121.1 kg [facility] 03-19-2024 09:37-0400 Diastolic blood pressure 98 mm[Hg] [facility] 03-19-2024 09:37-0400 Heart rate 94 /min [facility] 03-19-2024 09:37-0400 Respiratory rate 20 /min [facility] [facility] 03-19-2024 09:37-0400 SaO2% (BldA) [Mass fraction] 95 % [facility] 03-19-2024 09:37-0400 Systolic blood pressure 158 mm[Hg] [facility] Encounters Encounter Date Encounter Type Care Provider Facility Start: 05-06-2025 End: 05-06-2025 Bamboo flowsheet Pepper Sexton COVER MARKER Work Phone: [facility] Start: 05-06-2025 End: 05-06-2025 Bamboo flowsheet Pepper Sexton COVER MARKER Work Phone: [facility] Start: 05-06-2025 End: 05-06-2025 Office outpatient visit 25 minutes Pepper Sexton NP Work Phone: [facility] Comment on above: Essential hypertensi on, benign (Primary Dx); Gastro-esophageal reflux disease without esophagitis; Morbid (severe) obesity due to excess calories ([facility]-HCC); Cigarette nicotine dependence without complication; Acute gout of left hand, unspecified cause; COPD with acute exacerbation (HCC); Restless legs syndrome Start: 04-29-2025 End: 04-29-2025 Office outpatient visit 25 minutes Robert Kumar MD Work Phone: [facility] Comment on above: 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 (CMS-HCC) (Primary Dx); Chronic deep vein thrombosis (DVT) of left thigh ([facility]-HCC) Start: 04-29-2025 End: 04-29-2025 ambulatory [facility] Start: 04-20-2025 End: 04-20-2025 ambulatory [facility] Start: 04-14-2025 End: 04-14-2025 Clinisync Result Encounter Generic External Data Provider [facility] External Department Unsolicited Start: 04-14-2025 End: 04-14-2025 Clinisync Result Encounter Generic External Data Provider [facility] External Department Unsolicited Start: 04-13-2025 End: 04-13-2025 Clinisync Result Encounter Pepper Velaeulalio COVER MARKER Work Phone: [facility] External Department Unsolicited Start: 04-13-2025 End: 04-13-2025 Clinisync Result Encounter Pepper Sexton COVER MARKER Work Phone: [facility] External Department Unsolicited Start: 04-07-2025 End: 04-07-2025 Bamboo flowsheet Pepper Sexton COVER MARKER Work Phone: [facility] Start: 04-07-2025 End: 04-07-2025 Bamboo flowsheet Pepper Sexton COVER MARKER Work Phone: [facility] Start: 04-07-2025 End: 04-07-2025 Office outpatient visit 25 minutes Pepper Serratojemal COVER MARKER Work Phone: [facility] Comment on above: Essential hypertensi on, benign (Primary Dx); Morbid (severe) obesity due to excess calories ([facility]-HCC); Gastro-esophageal reflux disease without esophagitis; 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); Fibromyalgia; Bronchitis; Acute gout of left hand, unspecified cause Start: 04-06-2025 End: 04-06-2025 ambulatory Pepper Wheeler Javierpricillajemal Work Phone: [facility] Work Phone: Start: 04-06-2025 End: 04-06-2025 Patient encounter procedure Tang Hamilton MD -[facility] Work Phone: Start: 04-01-2025 End: 04-01-2025 Office outpatient visit 25 minutes Robert Kumar MD Work Phone: [facility] Comment on above: Chronic venous insuf ficiency (Primary Dx); Chronic deep vein thrombosis (DVT) of popliteal vein of left lower extremity (CMS-HCC); 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 (CMS-HCC) Start: 04-01-2025 End: 04-01-2025 ambulatory [facility] Start: 03-31-2025 End: 03-31-2025 Clinisync Result Encounter Pepper Sexton COVER MARKER Work Phone: [facility] External Department Unsolicited Start: 03-31-2025 End: 03-31-2025 Clinisync Result Encounter Pepper Carlie COVER MARKER Work Phone: [facility] External Department Unsolicited Start: 03-17-2025 End: 03-17-2025 Clinisync Result Encounter Pepper Carlie COVER MARKER Work Phone: [facility] External Department Unsolicited Start: 03-17-2025 End: 03-17-2025 Clinisync Result Encounter Pepper Carlie COVER MARKER Work Phone: [facility] External Department Unsolicited Start: 03-17-2025 End: 03-17-2025 Orders Only Pepper Sexton COVER MARKER Work Phone: [facility] Comment on above: Electrolyte abnormal ity (Primary Dx) Start: 03-17-2025 Non-patient / Non-visit Tang Hamilton MD -[facility] Work Phone: Start: 03-16-2025 End: 03-16-2025 Refill Pepper Sexton COVER MARKER Work Phone: [facility] Comment on above: Atopic dermatitis, u nspecified type Hypothyroidism, unsp ecified type ; Gastroesophageal reflux disease, unspecified whether esophagitis present; Essential hypertension, benign Start: 03-08-2025 End: 03-08-2025 Bamboo flowsheet Pepper Sexton COVER MARKER Work Phone: [facility] Start: 03-08-2025 End: 03-08-2025 Bamboo flowsheet Pepperjovanny Sexton COVER MARKER Work Phone: [facility] Start: 03-08-2025 End: 03-08-2025 Office outpatient visit 25 minutes Pepper Sexton COVER MARKER Work Phone: [facility] Comment on above: Cellulitis of left l ower extremity (Primary Dx); Essential hypertension, benign ; Left leg swelling; Morbid (severe) obesity due to excess calories (CMS-HCC); Chronic bronchitis, unspecified chronic bronchitis type (HCC); Restless legs syndrome; Atopic dermatitis, unspecified type Start: 03-08-2025 End: 03-08-2025 ambulatory PEPPER SEXTON Not Available Start: 02-17-2025 End: 02-17-2025 Transitional care manage srvc 7 day discharge Pepper Sexton COVER MARKER Work Phone: [facility] Comment on above: Cellulitis of left [...] 01-06-2025 End: 01-06-2025 Bamboo flowsheet Pepper Sexton COVER MARKER Work Phone: [facility] Start: 01-06-2025 End: 01-06-2025 Bamboo flowsheet Pepper Sexton COVER MARKER Work Phone: [facility] Start: 01-06-2025 End: 01-06-2025 Office outpatient visit 25 minutes Pepper Sexton COVER MARKER Work Phone: [facility] Comment on above: Essential hypertensi on, benign (CMS/HCC) (Primary Dx); Chronic kidney disease, stage 3a (HCC) (CMS/HCC); Gastro-esophageal reflux disease without esophagitis; Morbid (severe) obesity due to excess calories (CMS/HCC); Mixed hyperlipidemia (CMS/HCC); Hypomagnesemia; Screening for prostate cancer; Marijuana use; Hypothyroidism, unspecified type (CMS/HCC); Fibromyalgia Start: 01-06-2025 End: 01-06-2025 ambulatory PEPPER CARLIE Not Available Start: 12-02-2024 End: 12-02-2024 ambulatory Pepper Liam Sexton Work Phone: [facility] Work Phone: Start: 12-02-2024 End: 12-02-2024 Patient encounter procedure Pepper Carlie Work Phone: [facility] [place] Work Phone: Start: 11-26-2024 End: 11-26-2024 Clinisync [...] Unsolicited Start: 11-24-2024 Non-patient / Non-visit Pepper lorenz Work Phone: [facility] Work Phone: Start: 11-05-2024 End: 11-05-2024 Clinisync Result Encounter Pepper Sexton COVER MARKER Work Phone: [facility] External [facility] Unsolicited Start: 11-05-2024 End: 11-05-2024 Clinisync Result Encounter Pepper Carlie COVER MARKER Work Phone: [facility] External Department Unsolicited Start: 11-04-2024 End: 11-04-2024 Refill Pepper Sexton COVER MARKER Work Phone: [facility] Comment on above: Hypomagnesemia; Restless legs syndrome Start: 10-08-2024 End: 10-08-2024 Refill Pepper Sexton COVER MARKER Work Phone: [facility] Comment on above: Hypothyroidism, unsp ecified type (CMS/HCC) (Primary Dx); Hypomagnesemia Start: 10-07-2024 End: 10-07-2024 Bamboo flowsheet Pepper Sexton COVER MARKER Work Phone: [facility] Start: 10-07-2024 End: 10-07-2024 Bamboo flowsheet Pepper Sexton COVER MARKER Work Phone: [facility] Start: 10-07-2024 End: 10-07-2024 Clinisync Result Encounter Pepper Sexton COVER MARKER Work Phone: [facility] External Department Unsolicited Start: 10-07-2024 End: 10-07-2024 Office outpatient visit 25 minutes Pepper Sexton COVER MARKER Work Phone: [facility] Comment on above: Essential hypertensi on, [...] Non-patient / Non-visit Pepper lorenz Work Phone: [facility] Work Phone: Start: 10-06-2024 End: 10-06-2024 Admission to same day surgery center Pepper Sexton Work Phone: [facility] Work Phone: Start: 10-06-2024 End: 10-06-2024 ambulatory Pepper Serratoayleeneulalio Work Phone: [facility] Work Phone: Start: 09-28-2024 End: 09-28-2024 Clinisync Result Encounter Pepper Serratoayleenz COVER MARKER Work Phone: [facility] External Department Unsolicited Start: 09-28-2024 End: 09-28-2024 Clinisync Result Encounter Pepper Velaz COVER MARKER Work Phone: [facility] External Department Unsolicited Start: 09-28-2024 End: 09-28-2024 Refill Pepper Rojelioholz COVER MARKER Work Phone: [facility] Comment on above: Hypomagnesemia (Prim ирина Dx) Start: 09-14-2024 End: 09-14-2024 Refill Pepper Rojelioholz COVER MARKER Work Phone: [facility] Comment on above: Hypomagnesemia Start: 09-14-2024 End: 09-15-2024 Refill Pepper Aichholz COVER MARKER Work Phone: [facility] Comment on above: Fibromyalgia Start: 09-04-2024 End: 09-04-2024 Orders Only Pepper Rojelioholz COVER MARKER Work Phone: [facility] Comment on above: Hypomagnesemia (Prim ирина Dx) Start: 09-04-2024 End: 09-04-2024 Refill Pepper Aichholz COVER MARKER Work Phone: [facility] Comment on above: Hypomagnesemia Start: 07-09-2024 Non-patient / Non-visit Pepper A kelechi Work Phone: [facility] Work Phone: Start: 07-09-2024 End: 07-09-2024 Admission to same day surgery center Pepper Sexton Work Phone: [facility] Work Phone: Start: 07-09-2024 End: 07-09-2024 ambulatory Pepper Sexton Work Phone: [facility] Work Phone: Start: 07-06-2024 End: 07-06-2024 Bamboo flowsheet Pepper Sexton COVER MARKER Work Phone: [facility] Start: 07-06-2024 End: 07-06-2024 Bamboo flowsheet Pepper Serratoayleeneulalio COVER MARKER Work Phone: [facility] Start: 07-06-2024 End: 07-06-2024 Office outpatient visit 25 minutes Pepper Serratojemal COVER MARKER Work Phone: [facility] Comment on [...] Start: 06-29-2024 End: 06-29-2024 Refill Pepper Sexton COVER MARKER Work Phone: [facility] Comment on above: Restless legs syndro me Start: 06-24-2024 End: 06-24-2024 ambulatory [facility] Work Phone: Start: 06-24-2024 End: 06-24-2024 Patient encounter procedure [facility] Work Phone: Start: 06-23-2024 End: 06-23-2024 Clinisync Result Encounter Generic External Data Provider [facility] External Department Unsolicited Start: 06-23-2024 End: 06-23-2024 Clinisync Result Encounter Generic External Data Provider [facility] External Department Unsolicited Start: 06-23-2024 End: 06-23-2024 ambulatory [facility] Work Phone: Start: 06-23-2024 End: 06-23-2024 Patient encounter procedure [facility] [place] Work Phone: Start: 06-18-2024 End: 06-18-2024 Refill Jose Bell MD Work Phone: [facility] Comment on above: Degenerative disc di sease, cervical (Primary Dx) Start: 06-09-2024 End: 06-09-2024 Refill Pepper Sexton COVER MARKER Work Phone: [facility] Comment on above: Hypomagnesemia questions Start: 06-03-2024 End: 06-03-2024 Bamboo flowsheet Blank Langston Apling COVER MARKER Work Phone: [facility] Start: 06-03-2024 End: 06-03-2024 Bamboo flowsheet Blank Langston Apling COVER MARKER Work Phone: [facility] Start: 06-03-2024 End: 06-03-2024 ambulatory BLANK Langston APLING Not Available Start: 06-03-2024 End: 06-03-2024 Postop follow up visit related to original px Blank Kian Denys COVER MARKER Work Phone: [facility] Comment on above: 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) Start: 05-27-2024 End: 05-27-2024 Evaluation and management of inpatient KENNEDI GRESHAM [facility] Start: 05-27-2024 End: 05-27-2024 Evaluation and management of inpatient [facility] Start: 05-26-2024 End: 05-26-2024 Refill Tiburcio Noel COVER MARKER Work Phone: [facility] Comment on above: Post-operative pain (Primary Dx) Start: 05-04-2024 End: 01-06-2025 Preoperative state Tiburcio Noel NP Work Phone: [facility] Start: 05-04-2024 End: 05-04-2024 ambulatory PEPPER SEXTON Not Available Start: 04-30-2024 End: 04-30-2024 ambulatory [facility] Not Available Start: 04-27-2024 End: 04-27-2024 ambulatory [facility] Start: 04-27-2024 Encounter for other [facility]procedural [facility] Start: 04-27-2024 End: 04-27-2024 Patient encounter procedure [facility] Pre-Admission Testing 2 [facility] Pre [facility] Comment on above: Preop examination (P rimary Dx); Hypertension, unspecified type Start: 04-27-2024 End: 04-27-2024 Preprocedural examination done [facility] 2 [facility] Start: 04-09-2024 End: 04-09-2024 ambulatory PEPPER SEXTON Not Available Start: 03-19-2024 End: 03-19-2024 ambulatory [facility] Work Phone: Start: 03-19-2024 End: 03-19-2024 Patient encounter procedure [facility] Work Phone: Start: 03-11-2024 End: 03-11-2024 ambulatory PEPPER AICHHOLZ Not Available Start: 07-19-2022 End: 07-20-2022 ambulatory IRON LAUNDER OPERATOR PEPPER AICHHOLZ Facility:[facility] Start: 04-04-2022 End: 04-05-2022 ambulatory IRON LAUNDER OPERATOR PEPPER AICHHOLZ Facility:[facility] Start: 02-27-2022 End: 02-28-2022 ambulatory IRON LAUNDER OPERATOR PEPPER AICHHOLZ Facility:[facility] Start: 01-16-2022 End: 01-17-2022 ambulatory IRON LAUNDER OPERATOR PEPPER AICHHOLZ Facility:[facility] Start: 12-25-2021 End: 12-26-2021 ambulatory IRON LAUNDER OPERATOR PEPPER AICHHOLZ Facility:[facility] Procedures Date Procedure Procedure Detail Performing Clinician Start: 04-14-2025 ALL MAGNESIUM Violeta Pal PA Work Phone: Start: 04-13-2025 ALL URIC ACID Pepper Aichholz COVER MARKER Work Phone: Start: 03-31-2025 ALL BASIC METABOLIC PANEL Pepper Aichholz COVER MARKER Work Phone: Start: 03-17-2025 ALL CBC WITH AUTO DIFF Pepper Aichholz COVER MARKER Work Phone: Start: 02-07-2025 BLOOD CULTURE 2 Generic External Data Provider Start: 02-07-2025 BLOOD CULTURE 1 Generic External Data Provider Start: 11-26-2024 ALL CBC WITH AUTO DIFF Generic External Data Provider Start: 11-24-2024 ALL MAGNESIUM Generic External Data Provider Start: 11-05-2024 ALL MAGNESIUM Pepper Aichholz COVER MARKER Work Phone: Start: 10-07-2024 ALL MAGNESIUM Pepper Aichholz COVER MARKER Work Phone: Start: 10-07-2024 ALL THYROID STIM HORMONE Pepper Aichholz N P Work Phone: Start: 10-07-2024 Hemoglobin glycosylated a1c Pepper Aichhol z COVER MARKER Work Phone: Start: 10-06-2024 Esophagogastroduodenoscopy Pepper Aichholz Work Phone: Start: 09-28-2024 ALL BASIC METABOLIC PANEL Pepper Sexton COVER MARKER Work Phone: Start: 09-28-2024 ALL MAGNESIUM Pepper Sexton COVER MARKER Work Phone: Start: 07-09-2024 Esophagogastroduodenoscopy Pepper Sexton Work Phone: Start: 06-23-2024 ALL MAGNESIUM Generic External Data Provider Start: 06-23-2024 ALL RENAL FUNCTION PANEL Generic Externa l Data Provider Start: 06-23-2024 ALL URIC ACID Generic External Data Provider Start: 07-19-2022 PSA screening IRON LAUNDER OPERATOR PEPPER SEXTON Comment on above: Performed By: #### CMP, TSH, LIPID #### [facility] [address] [place] [address] Dr. Lavonne Tinoco Plan of Treatment Date Care Activity Detail Author Start: 04-01-2026 Adult BMI Screening Adult BMI Screen ing [facility] Start: 08-11-2025 Screening for malign ant neoplasm of colon [facility] Start: 08-09-2025 End: 08-09-2025 Patient encounter procedure 08/09/2025 8:40 AM EST [facility] [address] [place] [phone] Pepper Sexton, COVER MARKER [address] [place] [phone] [facility] Start: 05-27-2025 Tobacco Screening Tobacco Screening [facility] Start: 05-24-2025 Influenza vaccination Influenza Vacc ine [facility] Start: 05-06-2025 End: 05-06-2025 Patient encounter procedure 05/06/2025 8:20 AM EDT [facility] [address] [place] [phone] Pepper Sexton, COVER MARKER [address] [place] [phone] Essential hypertension, benign (Primary Dx); Gastro-esophageal reflux disease without esophagitis; Morbid (severe) obesity due to excess calories ([facility]-HCC); Cigarette nicotine dependence without complication; Acute gout of left hand, unspecified cause [facility] Comment on above: Essential hypertensi on, benign (Primary Dx); Gastro-esophageal reflux disease without esophagitis; Morbid (severe) obesity due to excess calories (CMS-HCC); Cigarette nicotine dependence without complication; Acute gout of left hand, unspecified cause Start: 05-05-2025 End: 05-05-2025 Patient encounter procedure 05/05/2025 8:20 AM EDT Office Visit [facility] [address] [place] [address] Pepper Sexton NP [address] [place] [address] [facility] Start: 04-29-2025 End: 04-29-2025 Patient encounter procedure 04/29/2025 8:50 AM EDT Office Visit [facility] [address] [place] [phone] Robert Kumar MD [address], [address] [address] [facility] Start: 04-27-2025 Adult BMI Screening Adult BMI Screen ing [facility] Start: 04-27-2025 Tobacco Screening Tobacco Screening [facility] Start: 04-20-2025 End: 04-20-2025 Patient encounter procedure 04/20/2025 9:[address] [facility] [address] [place] [phone] Robert Kumar MD [address], [address] [address] [facility] Start: 04-07-2025 End: 04-07-2026 Urate [Mass/volume] in Serum or Plasma Uric acid Lab Routine Acute gout of left hand, unspecified cause Expected: 04/07/2025 (Approximate), Expires: 04/07/2026 [facility] Work Phone: Comment on above: Expected: 04/07/2025 (Approximate), Expires: 04/07/2026 Start: 04-07-2025 End: 04-07-2025 Patient encounter procedure [facility] Comment on above: Morbid (severe) obes ity due to excess calories (CMS-HCC) (Primary Dx); Gastro-esophageal reflux disease without esophagitis; 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); Cellulitis of left lower extremity Start: 04-01-2025 End: 04-01-2026 US.doppler Lower extremity vein - left Vas venous duplex insufficiency lwr lt Vascular Ultrasound Routine Chronic venous insufficiency Expected: 04/01/2025, Expires: 04/01/2026 [facility] Work Phone: Comment on above: Expected: 04/01/2025 , Expires: 04/01/2026 Start: 03-17-2025 End: 03-17-2026 Basic metabolic 1998 panel - Serum or Plasma Basic metabolic panel Lab Routine Electrolyte abnormality Expected: 03/17/2025 (Approximate), Expires: 03/17/2026 [facility] Work Phone: Comment on above: Expected: 03/17/2025 (Approximate), Expires: 03/17/2026 Start: 03-08-2025 End: 03-08-2025 Patient encounter procedure 03/08/2025 8:20 AM EDT Office Visit [facility] [address] [place] [phone] Pepper Sexton NP [address] [place] [phone] Essential hypertension, benign (Primary Dx); Cellulitis of left lower extremity; Left leg swelling; Morbid (severe) obesity due to excess calories ([facility]-HCC) [facility] Comment on above: Essential hypertensi on, benign (Primary Dx); Cellulitis of left lower extremity; Left leg swelling; Morbid (severe) obesity due to excess calories (CMS-HCC) Start: 01-06-2025 End: 01-06-2026 CBC W Auto Differential panel - Blood CBC and differential Lab Routine Gastro-esophageal reflux disease without esophagitis Expected: 01/06/2025 (Approximate), Expires: 01/06/2026 [facility] Comment on above: Expected: 01/06/2025 (Approximate), Expires: 01/06/2026 Start: 01-06-2025 End: 01-06-2026 Comprehensive metabolic 2000 panel - Serum or Plasma Comprehensive metabolic panel Lab Routine Chronic kidney disease, stage 3a (HCC) (CMS/HCC) Essential hypertension, benign (CMS/HCC) Gastro-esophageal reflux disease without esophagitis Mixed hyperlipidemia (CMS/HCC) Expected: 01/06/2025 (Approximate), Expires: 01/06/2026 [facility] Comment on above: Expected: 01/06/2025 (Approximate), Expires: 01/06/2026 Start: 01-06-2025 End: 01-06-2026 Lipid 1996 panel - Serum or Plasma Lipid panel Lab Routine Mixed hyperlipidemia (CMS/HCC) Expected: 01/06/2025 (Approximate), Expires: 01/06/2026 [facility] Work Phone: Comment on above: Expected: 01/06/2025 (Approximate), Expires: 01/06/2026 Start: 01-06-2025 End: 01-06-2026 Microalbumin/Creatinine panel in random Urine Microalbumin / creatinine, urine ratio Lab Routine Essential hypertension, benign (CMS/HCC) Expected: 01/06/2025 (Approximate), Expires: 01/06/2026 [facility] Comment on above: Expected: 01/06/2025 (Approximate), Expires: 01/06/2026 Start: 01-06-2025 End: 01-06-2026 Prostate specific Ag [Mass/volume] in Serum or Plasma PSA Lab Routine Screening for prostate cancer Expected: 01/06/2025 (Approximate), Expires: 01/06/2026 [facility] Comment on above: Expected: 01/06/2025 (Approximate), Expires: 01/06/2026 Start: 01-06-2025 End: 01-06-2026 Thyrotropin [Units/volume] in Serum or Plasma TSH Lab Routine Hypothyroidism, unspecified type (CMS/HCC) Expected: 01/06/2025 (Approximate), Expires: 01/06/2026 [facility] Comment on above: Expected: 01/06/2025 (Approximate), Expires: 01/06/2026 Start: 01-06-2025 End: 01-06-2026 Thyroxine (T4) free [Mass/volume] in Serum or Plasma T4, free Lab Routine Hypothyroidism, unspecified type (CMS/HCC) Expected: 01/06/2025 (Approximate), Expires: 01/06/2026 [facility] Comment on above: Expected: 01/06/2025 (Approximate), Expires: 01/06/2026 Start: 01-06-2025 End: 01-06-2026 Urinalysis complete panel - Urine Urinalysis with reflex microscopic (clean catch) Lab Routine Essential hypertension, benign (CMS/HCC) Expected: 01/06/2025 (Approximate), Expires: 01/06/2026 [facility] Comment on above: Expected: 01/06/2025 (Approximate), Expires: [...] Expected: 12/06/2024 (Approximate), Expires: 10/08/2025 [facility] Work Phone: Comment on above: Expected: 12/06/2024 (Approximate), Expires: 10/08/2025 Start: 12-06-2024 End: 10-08-2025 Thyroxine (T4) free [Mass/volume] in Serum or Plasma T4, free Lab Routine Hypothyroidism, unspecified type (CMS/HCC) Expected: 12/06/2024 (Approximate), Expires: 10/08/2025 [facility] Comment on above: Expected: 12/06/2024 (Approximate), Expires: 10/08/2025 Start: 10-22-2024 End: 10-08-2025 Magnesium [Mass/volume] in Serum or Plasma Magnesium Lab Routine Hypomagnesemia Expected: 10/22/2024 (Approximate), Expires: 10/08/2025 [facility] Comment on above: Expected: 10/22/2024 (Approximate), Expires: 10/08/2025 Start: 10-07-2024 End: 10-07-2025 Magnesium [Mass/volume] in Serum or Plasma Magnesium Lab Routine Hypomagnesemia Expected: 10/07/2024 (Approximate), Expires: 10/07/2025 [facility] Comment on above: Expected: 10/07/2024 (Approximate), Expires: 10/07/2025 Start: 10-07-2024 End: 10-07-2025 Thyrotropin [Units/volume] in Serum or Plasma TSH Lab Routine Hypothyroidism, unspecified type ([facility]/HCC) Expected: 10/07/2024 (Approximate), Expires: 10/07/2025 [facility] Work Phone: Comment on above: Expected: 10/07/2024 (Approximate), Expires: 10/07/2025 Start: 10-07-2024 End: 10-07-2025 Thyroxine (T4) free [Mass/volume] in Serum or Plasma T4, free Lab Routine Hypothyroidism, unspecified type (CMS/HCC) Expected: 10/07/2024 (Approximate), Expires: 10/07/2025 [facility] Comment on above: Expected: 10/07/2024 [...] type (CMS/HCC); Obesity (BMI 30-39.9); Mixed hyperlipidemia ([facility]/HCC); Hypomagnesemia; Marijuana use; Pre-diabetes Start: 10-06-2024 [facility] Start: 09-04-2024 End: 09-04-2025 Basic metabolic 1998 panel - Serum or Plasma Basic metabolic panel Lab Routine Hypomagnesemia Expected: 09/04/2024 (Approximate), Expires: 09/04/2025 [facility] Comment on above: Expected: 09/04/2024 (Approximate), Expires: 09/04/2025 Start: 09-04-2024 End: 09-04-2025 Magnesium [Mass/volume] in Serum or Plasma Magnesium Lab Routine Hypomagnesemia Expected: 09/04/2024 (Approximate), Expires: 09/04/2025 [facility] Work Phone: Comment on above: Expected: 09/04/2024 (Approximate), Expires: 09/04/2025 Start: 07-09-2024 [facility] Start: 07-06-2024 End: 07-06-2024 Patient encounter procedure [facility] Comment on above: Arrived Start: 06-30-2024 End: 06-30-2024 Patient encounter procedure [facility] Comment on above: Arrived Start: 06-09-2024 End: 06-09-2025 Basic metabolic 1998 panel - Serum or Plasma Basic metabolic panel Lab Routine Hypomagnesemia Expected: 06/09/2024 (Approximate), Expires: 06/09/2025 [facility] Work Phone: Comment on above: Expected: 06/09/2024 (Approximate), Expires: 06/09/2025 Start: 06-09-2024 End: 06-09-2025 Magnesium [Mass/volume] in Serum or Plasma Magnesium Lab Routine Hypomagnesemia Expected: 06/09/2024 (Approximate), Expires: 06/09/2025 [facility] Comment on above: Expected: 06/09/2024 (Approximate), Expires: 06/09/2025 Start: 06-03-2024 End: 06-03-2024 Patient encounter procedure 06/03/2024 8:45 AM EDT Office Visit [facility] [address] [place] [address] Blank Mcfarlane, REMBERTO [address] [place] [address] [facility] Start: 05-27-2024 End: 05-27-2024 Patient encounter procedure 05/27/2024 10:40 AM EDT Office Visit [facility] [address] [place] [phone] Karuna Carranza PA [address] [place], [place] [id number] [facility] Start: 05-27-2024 End: 05-27-2024 Admission to same day surgery center 05/27/2024 7:30 AM EDT - 05/27/2024 8:30 AM EDT Surgery [facility] [address] [place] [address] Rupert Bo DO [address] [place] [address] DECOMPRESSION NERVE ULNAR [57200 (CPT )] [facility] Comment on above: DECOMPRESSION NERVE ULNAR [60965 (CPT )] Start: 05-27-2024 End: 05-27-2024 Neuroplasty &/transposition ulnar nerve elbow DECOMPRESSION NERVE ULNAR right ulnar neuropathy 05/27/2024 7:30 AM EDT [facility] Start: 05-27-2024 End: 05-27-2024 Patient encounter procedure 05/27/2024 7:30 AM EDT Procedure Visit [facility] Rupert Bo, [address] [place] [address] [facility] Start: 05-27-2024 Subsequent hospital visit by physician 05/27/2024 7:30 AM EDT Hospital Encounter [facility] [address] [place] [id number] Rupert Bo, DO [address] [place] [address] [facility] Start: 05-24-2024 Influenza vaccination Influenza Vacc ine [facility] Start: 2017 Administration of varicella zoster vaccine Zoster (Shingles) Vaccine (1 of 2) [facility] Start: 1986 DTaP,Tdap and Td Vaccines (1 - Tdap) DTaP,Tdap and Td Vaccines (1 - Tdap) [facility] Start: 1985 Adult BMI Follow Up Plan Adult BMI Follow Up Plan [facility] Start: 1979 Depression Screening Depression Scre ening [facility] Start: 1967 Screening for malign ant neoplasm of colon [facility] BLOOD CULTURE 1 BLOOD CULTURE 1 Lab Routine 02/07/2025 12:02 PM EDT [facility] BLOOD CULTURE 2 BLOOD CULTURE 2 Lab Routine 02/07/2025 12:45 PM EDT [facility] Patient Education [facility] Work Phone: Renal function 1999 panel - Serum or Plasma [facility] Renal function 1999 panel - Serum or Plasma [facility] Renal function 1999 panel - Serum or Plasma [facility] Renal function 1999 panel - Serum or Plasma [facility] Payers Date Payer Category Payer Self-pay 2019 [facility] BCBS [id number] 2019 [employer] Blue [employer] [facility] Care - O ANTH [id number] 2019 Unknown [id number] 1.13.693. [id number] 1967 Unknown [id number] 2.16.840.1.944450.3.579. 2.593 1967 Unknown [id number] 2.16.840.1.372562.3.579. 2.593 1967 Unknown [id number] 2.16.840.1.503760.3.579. 2.593 1967 Unknown [id number] 2.16.840.1.240336.3.579. 2.593 1967 Unknown [id number] 2.16.840.1.922430.3.579. 2.593 1967 Unknown [id number] 2.16.840.1.483211.3.579. 2.1259 1967 Unknown [id number] 2.16.840.1.907992.3.579. 2.1258 1967 Unknown [id number] 2.16.840.1.044416.3.579. 2.1258 1967 Unknown [id number] 2.16.840.1.007357.3.579. 2.1258 1967 Unknown [id number] 2.16.840.1.347747.3.579. 2.1258 1967 Unknown [id number] 2.16.840.1.876271.3.579. 2.1258 1967 Unknown [id number] 2.16.840.1.839898.3.579. 2.1258 1967 Unknown [id number] 2.16.840.1.863199.3.579. 2.1258 1967 Unknown [id number] 2.16.840.1.573702.3.579. 2.1258 1967 Unknown [id number] 2.840.1.823208.3.579. 2.1258 1967 Unknown [id number] 2..840.1.639217.3.579. 2.1258 1967 Unknown [id number] 2.16.840.1.052142.3.579. 2.1285 1967 Unknown [id number] 2.16.840.1.962992.3.579. 2.1285 1967 Unknown [id number] 2.16.840.1.585097.3.579. 2.1285 1967 Unknown [id number] 2..840.1.412705.3.579. 2.1285 1967 Unknown [id number] 2.16.840.1.849247.3.579. 2.1285 1967 Unknown [id number] 2.16.840.1.990911.3.579. 2.1285 1967 Unknown [id number] 2.16.840.1.537318.3.579. 2.1286 1967 Unknown [id number] 2..840.1.630988.3.579. 2.1286 1967 Unknown [id number] 2.16.840.1.074246.3.579. 2.1286 1959 Unknown [id number] 1959 Unknown [id number] Unknown [place] BC/BS [id number] Unknown [facility] 287 [id number] Unknown [id number] 2.16.840.1.244070.3.579. 2.531 Unknown [id number] ..840.1.621109.3.579. 2.531 Social History Date Type Detail Facility Start: 03-19-2024 Tobacco smoking status [facility] Current some day smoker [facility] Start: 1965 Sex Assigned At Male [facility] Start: 04-30-2024 End: 06-23-2024 Tobacco smoking status [facility] Ex-smoker (finding) [facility] History of tobacco use Current smoker [facility] History of tobacco use Cigar Smoker [facility] Start: 04-30-2024 End: 05-27-2024 Tobacco use and exposure Smokeless tobacco non-user [facility] Start: 06-03-2024 End: 05-06-2025 Alcoholic beverage intake Current drinker of alcohol (finding) [facility] Start: 11-25-2023 End: 11-26-2023 History of Social function [facility] Start: 11-25-2023 End: 11-26-2023 Social connection and isolation panel [facility] Do you belong to any clubs or organizations such as orthodoxy groups, unions, fraternal [...] To some extent [facility] (I/We) worried [facility] (my/our) food would run out before [...] at Not on file [facility] Start: 05-27-2024 End: 07-09-2024 Tobacco smoking status NHIS Never smoked tobacco (finding) [facility] Start: 04-28-2015 End: 10-06-2024 Sex Male (finding) [facility] History of tobacco use Cigarette Smoker P [facility] Start: 04-27-2024 Alcohol Comment social/recreational [facility] Goals Date Patient Goal Desired Activity /State Clinical Notes 04-27-2024 to 05-06-2025 Pepper Sexton NP - 05/06/2025 8:57 AM IRENE HERRERA 05/06/2025 8:20 AM Dash Sexton NP - 05/06/2025 8:20 AM Dash Sexton NP - 05/06/2025 6:14 AM EDTPatient Instructions Note Date & Type Note Facility 05-06-2025 History of Presen t illness Narrative Associated Problem(s): COPD with acute exacerbation (HCC) Is currently not taking blood thinner Will add medrol dose pack and atb He was alternating between albuterol and symbicort I did explain how each works and symbicort is twice a day EVERY day and albuterol prn Fu if not better Pt states he still has the cold going on Cough, phlegm, wheezing, sob, stuffy nose. 02 range 89-92 Currently has sl headache Images from the original note were not included. Abram Guillaume is a 59 y.o. male presents with chief complaint of Hypertension HPI: Cough; no fever, + wheeze, some dyspnea, +mucus yellow/white, +nasal congestion Hand sl improvement Hypertension This is a chronic problem. The problem has been gradually improving since onset. Associated symptoms include peripheral edema and shortness of breath. Pertinent negatives include no anxiety, chest pain, headaches or palpitations. There are no associated agents to hypertension. Risk factors for coronary artery disease include obesity, male gender and smoking/tobacco exposure. Past treatments include angiotensin blockers, calcium channel blockers and beta blockers. SUBJECTIVE: MEDICATIONS: Current Outpatient Medications Medication Instructions acetaminophen (TYLENOL 8 HOUR) 650 mg, Every 8 hours PRN albuterol HFA (Ventolin HFA) 90 mcg/act inhaler 2 puffs, Inhalation, Every 6 hours PRN amLODIPine (NORVASC) 10 mg, Oral, Daily amoxicillin-clavulanate (Augmentin) 875-125 MG tablet 875 mg, Oral, 2 times daily budesonide-formoterol (Symbicort) 160-4.5 MCG/ACT inhaler 2 puffs, Inhalation, 2 times daily, Rinse mouth with water after use to reduce aftertaste and incidence of candidiasis. Do not swallow. Calamine-Zinc Oxide 8-8 % lotion 1 Application, Daily PRN doxepin (SINEQUAN) 100 mg, Oral, Nightly Eliquis 5 MG tablet TAKE 2 TABLETS BY MOUTH TWICE DAILY FOR 4 DAYS and then TAKE 1 TABLET BY MOUTH TWICE DAILY thereafter gabapentin (NEURONTIN) 600 mg, Oral, 2 times daily levothyroxine (SYNTHROID, LEVOXYL) 112 mcg, Oral, Daily before breakfast Magnesium Glycinate 100 mg, 3 times daily methylPREDNISolone (Medrol Dospak) 4 MG tablets Follow schedule on package instructions take with food montelukast (SINGULAIR) 10 mg, Oral, Nightly nebivolol [...] discharge and visual disturbance. Respiratory: Positive for cough, shortness of breath and wheezing. Negative for [...] his father. OBJECTIVE: Visit Vitals BP (!) 144/94 (BP Location: Left arm, Patient Position: Sitting, BP Cuff Size: Large adult) Pulse 95 Temp 97.8 F (Temporal) Resp 22 Wt 268 lb 9.6 oz SpO2 92% BMI 39.67 kg/m Smoking Status Former BSA 2.44 m Physical Exam Vitals and nursing note reviewed. Constitutional: Appearance: Normal appearance. He is obese. He is not ill-appearing. HENT: Head: Normocephalic. Right Ear: Tympanic membrane, ear canal and external ear normal. Left Ear: Tympanic membrane, ear canal and external ear normal. Nose: Congestion and rhinorrhea present. Mouth/Throat: Mouth: Mucous membranes are moist. Pharynx: Oropharynx is clear. No oropharyngeal exudate or posterior oropharyngeal erythema. Eyes: Extraocular Movements: Extraocular movements intact. Conjunctiva/sclera: Conjunctivae normal. Cardiovascular: Rate and Rhythm: Normal rate and regular rhythm. Pulses: Normal pulses. Heart sounds: Normal heart sounds. No murmur heard. Pulmonary: Effort: Pulmonary effort is normal. Breath sounds: Wheezing (few faint exp) present. Abdominal: General: Bowel sounds are normal. Palpations: Abdomen is soft. Musculoskeletal: Cervical back: Neck supple. Left lower leg: Edema present. Lymphadenopathy: Cervical: No cervical adenopathy. Skin: General: Skin is warm and dry. Capillary Refill: Capillary refill takes 2 to 3 seconds. Neurological: General: No focal deficit present. Mental Status: He is alert. Psychiatric: Mood and Affect: Mood normal. Behavior: Behavior normal. Thought Content: Thought content normal. Judgment: Judgment normal. ASSESSMENT AND PLAN: Follow up in about 3 months (around 08/06/2025) for Recheck. Problem List Items Addressed This Visit Essential hypertension, benign - Primary Please check blood pressure daily and record DASH diet Limit caffeine Take medication as directed Contact office if chest pain, pressure, dizziness, shortness of breath, swelling legs Recommend slow position changes Current meds: amlodipine,, bystolic, valsartan Nicotine dependence The patient has been advised of the risks of continued smoking: stroke, MS, all forms of cancer, lung disease, and . Options for quitting smoking include: cold turkey, hypnosis, acupuncture, nicotine replacement meds (gum, lozenges, and patches), Buproprion, and Varenicline. At this time pt is encouraged to evaluate their goals for wanting to quit smoking, and reach out to provider when ready to start this process COPD with acute exacerbation (HCC) Is currently not taking blood thinner Will add medrol dose pack and atb He was alternating between albuterol and symbicort I did explain how each works and symbicort is twice a day EVERY day and albuterol prn Fu if not better Relevant Medications amoxicillin-clavulanate (Augmentin) 875-125 MG tablet methylPREDNISolone (Medrol Dospak) 4 MG tablets Morbid (severe) obesity due to excess calories ([facility]-HCC) Discussed with patient their BMI (actual, verses [...] levels, cannot tolerate off of PPI therapy Acute gout of left hand Last apppt we ordered voltaren gel and check uric acid ( Uric acid level 7.2) Other Visit Diagnoses Restless legs syndrome Relevant Medications gabapentin (Neurontin) 600 MG tablet Associated Problem(s): Acute gout of left hand Last apppt we ordered voltaren gel and check uric acid ( Uric acid level 7.2) Associated Problem(s): Nicotine dependence The patient has been advised of the risks of continued smoking: stroke, MS, all forms of cancer, lung disease, and . Options for quitting smoking include: cold turkey, hypnosis, acupuncture, nicotine replacement meds (gum, lozenges, and patches), Buproprion, and Varenicline. At this time pt is encouraged to evaluate their goals for wanting to quit smoking, and reach out to provider when ready to start this process Associated Problem(s): Morbid (severe) obesity due to excess calories ([facility]) Discussed with patient their BMI (actual, verses recommended). We have also discussed lifestyle modifications: attempts to perform physical activity as chronic conditions allow, also to monitor dietary intake: increasing protein/fruits/veggies and lowering carb intake (unless contraindicated). Limit sodas, juices, and sugary drinks. Associated Problem(s): Gastro-esophageal reflux disease without esophagitis [...] PPI therapy Associated Problem(s): Essential hypertension, benign Please check blood pressure daily and record DASH diet Limit caffeine Take medication as directed Contact office if chest pain, pressure, dizziness, shortness of breath, swelling legs Recommend slow position changes Current meds: amlodipine,, bystolic, valsartan documented in this encounter [facility] 05-06-2025 Instructions Pepper Sexton NP - 05/06/2025 8:20 AM EDT Add antibiotic twice a day for 10 days documented in this encounter [facility] 04-29-2025 Evaluation + Plan note Associated Problem(s): Chronic deep vein thrombosis (DVT) of left thigh (CMS-HCC) Compression therapy. Leg elevation and exercise [facility] 04-29-2025 Evaluation + Plan note Associated Problem(s): 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 (CMS-HCC) Left SSV Ablation and sclerotherapy. Compression stockings. [facility] 04-29-2025 Miscellaneous Notes Associate d Problem(s): Chronic deep vein thrombosis (DVT) of left thigh (CMS-HCC) Compression therapy. Leg elevation and exercise Associated Problem(s): 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 (CMS-HCC) Left SSV Ablation and sclerotherapy. Compression stockings. documented in this encounter [facility] 04-29-2025 History of Presen t illness Narrative Images from the original note were not included. To: PEPPER SEXTON, ELEVATOR WORKER-IRON LAUNDER OPERATOR HPI: Abram Guillaume is a 59 y.o. male with left lower extremity swelling and skin changes consistent with venous eczema and venous pre-ulcers changes. He has history of DVT in he was recently admitted and had superficial thrombophlebitis. The most recent CT scan from 3 years ago had chronic post thrombotic change in the popliteal vein in the left side. No open ulcer pressure per se. He uses compression therapy regularly.. . Review of Systems: Review of Systems Constitutional: [...] 1 capsule (300 mg total) before bedtime. ibuprofen (ADVIL,MOTRIN) 200 mg tablet Take 1 tablet (200 mg total) by mouth every 6 (six) hours as needed for pain. levothyroxine (SYNTHROID, LEVOTHROID) 25 MCG tablet Take 4 tablets (100 mcg total) by mouth in the morning. magnesium oxide (MAGOX) 400 mg tablet Take 1 tablet (400 mg total) by mouth in the morning and 1 tablet (400 mg total) at noon and 1 tablet (400 mg total) before bedtime. meloxicam (MOBIC) 15 mg tablet Take 1 tablet (15 mg total) by mouth in the morning. montelukast (SINGULAIR) 10 mg tablet Take 1 tablet (10 mg total) by mouth nightly. nebivoloL (BYSTOLIC) 5 mg tablet Take 1 tablet (5 mg total) by mouth in the morning. omeprazole (PriLOSEC) 40 mg capsule Take 1 capsule (40 mg total) by mouth in the morning. valsartan (DIOVAN) 320 mg tablet Take 1 tablet (320 mg total) by mouth in the morning. No current facility-administered medications on file prior [...] 05/27/2024 Performed by Rupert Bo DO at [facility] HERNIA REPAIR Bilateral inguinal LEG SURGERY Left [...] Resource Strain: Medium Risk (11/25/2023) Received from [facility] Overall Financial Resource Strain (CARDIA) Difficulty of Paying Living Expenses: Somewhat hard Food Insecurity: No Food Insecurity (11/25/2023) Received from [facility] Hunger Vital Sign Worried About Running Out of Food in the Last Year: Never true Ran Out of Food in the Last Year: Never true Transportation Needs: No Transportation Needs (11/25/2023) Received from [facility] PRAPARE - Transportation Lack of Transportation (Medical): No Lack of Transportation (Non-Medical): No Physical Activity: Sufficiently Active (11/25/2023) Received from [facility] Exercise Vital Sign Days of Exercise per Week: 5 days Minutes of Exercise per Session: 150+ min Stress: Stress Concern Present (11/25/2023) Received from [facility] [employer] [place] [employer] - Occupational Stress Questionnaire Feeling of Stress : To some extent Social Connections: Moderately Integrated (11/25/2023) Received from [facility] Social Connection and Isolation Panel [NHANES] Frequency of Communication with Friends and Family: Once a week Frequency of Social Gatherings with Friends and Family: Three times a week Attends Jainism Services: Never Active Member of Clubs or Organizations: Yes Attends Club or Organization Meetings: Never Marital Status: Interpersonal Safety: Unknown (11/14/2023) Received from [facility] Safety & Environment Fear of Current or Ex-Partner: Not on file Emotionally Abused: Not on file Physically Abused: Not on file Sexually Abused: Not on file Physically or Sexually Abused: Not on file Housing Instability: Low Risk (11/25/2023) Received from [facility] Housing Stability Vital Sign Unable to Pay [...] assessment and plan below. Vitals: BP (!) 164/108 (BP Site: Left Arm, BP Postition: Sitting, BP CUFF SIZE: M (9-13 inches)) Pulse 97 Ht 175.3 cm (5' 9 ) Wt 120.2 kg (265 lb) SpO2 91% BMI 39.13 kg/m Body mass index is 39.13 kg/m . Physical Exam: Physical Exam Constitutional: [...] content normal. Judgment: Judgment normal. Recent testing: Venous reflux ultrasound Assessment and Plan: Problem List Chronic deep vein thrombosis (DVT) of left thigh (CMS-HCC) Current Assessment & Plan Compression therapy. 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 Compression stockings. Abram was seen today for follow up testing. Diagnoses and all orders for this visit: 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 (CMS-HCC) Chronic deep vein thrombosis (DVT) of left thigh (CMS-HCC) Other orders - calamine-zinc oxide 8-8 % lotion; Apply 1 Application topically as needed for itching. Robert Kumar MD, ZAN, RPVI, FSVS, FACS [facility] [employer] [facility] This note was created with the assistance of a speech recognition program. While intending to generate a timely document that accurately reflects the content of the visit, no guarantee can be provided that every grammatical or spelling mistake has been or will be identified or corrected. Thank you for your understanding. documented in this encounter [facility] 04-07-2025 History of Presen t illness Narrative [...] the original note were not included. Abram Guillauem is a 59 y.o. male presents with [...] includes PVD. There is no history of CAD/MS or heart failure. Hand Pain The incident [...] Morbid (severe) obesity due to excess calories ([facility]) - Primary Discussed with patient their BMI [...] 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 ([facility]) Reviewed vascular notes Bronchitis Doxy No resp [...] Morbid (severe) obesity due to excess calories ([facility]-HCC) Discussed with patient their BMI (actual, verses recommended). We have also discussed lifestyle modifications: attempts to perform physical activity as chronic conditions allow, also to monitor dietary intake: increasing protein/fruits/veggies and lowering carb intake (unless contraindicated). Limit sodas, juices, and sugary drinks. documented in this encounter [facility] 04-07-2025 Instructions Pepper Sexton NP - 04/07/2025 8:20 AM EDT Diclofenac cream/gel to joint on left hand Next lab draw check uric acid documented in this encounter [facility] 04-01-2025 Evaluation + Plan note Associated Problem(s): 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 (CMS-HCC) Compression therapy leg elevation exercise. Calamine cream. We will get venous reflux ultrasound. [facility] 04-01-2025 Evaluation + Plan note Associated Problem(s): Chronic deep vein thrombosis (DVT) of popliteal vein of left lower extremity (CMS-HCC) Compression therapy venous reflux ultrasound. Calamine cream to the skin. [facility] 04-01-2025 Miscellaneous Notes Associate d Problem(s): 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 (CMS-HCC) Compression therapy leg elevation exercise. Calamine cream. We will get venous reflux ultrasound. Associated Problem(s): Chronic deep vein thrombosis (DVT) of popliteal vein of left lower extremity (CMS-HCC) Compression therapy venous reflux ultrasound. Calamine cream to the skin. documented in this encounter [facility] 04-01-2025 History of Presen t illness Narrative Images from the original note were not included. To: PEPPER SEXTON, ELEVATOR WORKER-IRON LAUNDER OPERATOR HPI: Abram Guillaume is a 59 y.o. [...] 05/27/2024 Performed by Rupert Bo DO at [facility] HERNIA REPAIR Bilateral inguinal LEG SURGERY [...] Resource Strain: Medium Risk (11/25/2023) Received from [facility] Overall Financial Resource Strain (CARDIA) Difficulty of Paying Living Expenses: Somewhat hard Food Insecurity: No Food Insecurity (11/25/2023) Received from [facility] Hunger Vital Sign Worried About Running Out of Food in the Last Year: Never true Ran Out of Food in the Last Year: Never true Transportation Needs: No Transportation Needs (11/25/2023) Received from [facility] PRAPARE - Transportation Lack of Transportation (Medical): No Lack of Transportation (Non-Medical): No Physical Activity: Sufficiently Active (11/25/2023) Received from [facility] Exercise Vital Sign Days of Exercise per Week: 5 days Minutes of Exercise per Session: 150+ min Stress: Stress Concern Present (11/25/2023) Received from [facility] [place] [employer] - Occupational Stress Questionnaire Feeling of Stress : To some extent Social Connections: Moderately Integrated (11/25/2023) Received from [facility] Social Connection and Isolation Panel [NHANES] Frequency of Communication with Friends and Family: Once a week Frequency of Social Gatherings with Friends and Family: Three times a week Attends Jainism Services: Never Active Member of Clubs or Organizations: Yes Attends Club or Organization Meetings: Never Marital Status: Interpersonal Safety: Unknown (11/14/2023) Received from [facility] Safety & Environment Fear of Current or Ex-Partner: Not on file Emotionally Abused: Not on file Physically Abused: Not on file Sexually Abused: Not on file Physically or Sexually Abused: Not on file Housing Instability: Low Risk (11/25/2023) Received from [facility] Housing Stability Vital Sign Unable to Pay [...] of popliteal vein of left lower extremity ([facility]-HCC) Current Assessment & Plan Compression therapy venous reflux ultrasound. Calamine cream to the skin. 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 ([facility]-HCC) Current Assessment & Plan Compression therapy leg elevation exercise. Calamine cream. We will get venous reflux ultrasound. Abram was seen today for cellulitis of left lower extremity left leg swelling . Diagnoses and all orders for this visit: Chronic venous insufficiency - Vas venous duplex insufficiency lwr lt; Future - Thigh high anti-embolism stocking Lg/Regular ([id number]) Chronic deep vein thrombosis (DVT) of popliteal vein of left lower extremity ([facility]-HCC) 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 ([facility]) Robert Kumar MD, ZAN, RPVI, FSVS, FACS [facility] [employer] This note was created with the assistance of a speech recognition program. While intending to generate a timely document that accurately reflects the content of the visit, no guarantee can be provided that every grammatical or spelling mistake has been or will be identified or corrected. Thank you for your understanding. documented in this encounter [facility] 03-08-2025 History of Presen t illness [...] Morbid (severe) obesity due to excess calories ([facility]) Discussed with patient their BMI [...] Morbid (severe) obesity due to excess calories ([facility]) Discussed with patient their BMI [...] 45 mins ago documented in this encounter [facility] 03-08-2025 Instructions Pepper Sexton NP - 03/08/2025 8:20 AM EDT Return to work as of 03/09/25 Keep fu appt with me for Paige Hernando wrap for Left lower leg documented in this encounter [facility] 02-17-2025 History of Presen t illness Narrative Associated Problem(s): MARITZA (acute kidney injury) ([facility]) Returning to baseline Associated Problem(s): Cellulitis of left lower extremity Finish atb's Off work until re assessed Elevate foot Associated Problem(s): Nicotine dependence The patient has been advised of the risks of continued smoking: stroke, MS, all forms of cancer, lung disease, and [...] of the risks of continued smoking: stroke, MS, all forms of cancer, lung disease, and [...] Morbid (severe) obesity due to excess calories (CMS/[facility]) Discussed with patient their BMI [...] assessed Elevate foot MARITZA (acute kidney injury) ([facility]/HCC) Returning to baseline documented in this encounter [facility] 02-17-2025 Instructions Pepper Sexton NP - 02/17/2025 4:[address] isabel referral Finish antibiotics, elevate leg Off work 2 weeks, documented in this encounter [facility] 01-06-2025 History of Presen t illness Narrative [...] compliance problems. There is no history of CAD/MS, heart failure or PVD. GERD He reports [...] Problem(s): Chronic kidney disease, stage 3a (HCC) ([facility]) Sees nephrology Associated Problem(s): Gastro-esophageal reflux disease [...] PPI therapy Associated Problem(s): Essential hypertension, benign ([facility]) Please check blood pressure daily and record DASH diet Limit caffeine Take medication as directed Contact office if chest pain, pressure, dizziness, shortness of breath, swelling legs Recommend slow position changes Current meds: amlodipine, bystolic, valsartan documented in this encounter [facility] 01-06-2025 Instructions Pepper Sexton NP - 01/06/2025 9:00 AM EDT Fasting labs due after 03/02/25 documented in this encounter [facility] 10-07-2024 History of Presen t illness Narrative [...] of symbicort, recommend regular use Associated Problem(s): GRUVINDER (obstructive sleep apnea) You have a diagnosis [...] function:NA documented in this encounter [facility] 10-07-2024 Instructions Pepper Sexton NP - 10/07/2024 9:00 AM EST Weight Watchers 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 [address] [place] [address] Gastroenterology H&P Signed Patient: Abram Guillaume MR#: [id number] 4 : 1965 Acct:[id number] Age/Sex: 58 / M Adm Date: 5 Loc: Room: Type: [facility] Attending Dr: James Elaine MD Copies [...] <Electronically signed by James Elaine MD> 10/06/2432 [facility] Work Phone: 1(895) 180-348901-14-2025 [place] [address] EGD Procedure Note Signed Patient: Abram Guillaume MR#: [id number] 4 : 1965 Acct:[id number] Age/Sex: 58 / M Adm Date: 5 Loc: Room: Type: [facility] Attending Dr: James Elaine MD Copies to: MD Pepper Werner NP-C~ Esophagogastroduodenoscopy Date/Provider Date: 10/06/2024 James Elaine MD Procedure Findings: Procedure: EGD with biopsy Indication: 58-year-old man with history of esophagitis here for EGD to assess for Diana's Pre-operative diagnosis: History of esophagitis Post-operative diagnosis: [place]-colored mucosa in the esophagus otherwise normal EGD [...] By: James Elaine MD 10/06/2432 Signed By: 10/06/24 0834 [facility]01-14-2025 [place] [address] Gastroenterology H&P Signed Patient: Abram Guillaume MR#: [id number] 4 : 1965 Acct:[id number] Age/Sex: 58 / M Adm Date: 5 Loc: Room: Type: [facility] Attending Dr: James Elaine MD Copies [...] James Elaine MD 10/06/24830 Signed By: 10/06/2432 [facility]01-06-2025 History of Present illness Narrative * Pepper [...] this matter. [id number] [facility] History of Present illness Narrative* [...] scope with GI, has been off his PPI/[id number] for up coming EGD etc Continue with [...] scope with GI, has been off his PPI/[id number] for up coming EGD etc Continue with GI Essential hypertension, benign (CMS/HCC) - Primary At goal no med dose chagnes Hypothyroidism (CMS/HCC) No med dose changes Hypomagnesemia Continue with TID magnesium and fu with Nephrology Relevant Medications magnesium oxide (Mag-Ox) 400 MG tablet Obesity (BMI 30-39.9) Needs flu shot declines [facility] [id number] History of Present illness Narrative* Rupert Bo, [...] both hands 11/26/2023 Pinched nerve 11/26/2023 Psoriasis ([facility]/HCC) 11/26/2023 Restless legs Rheumatoid arthritis ([facility]/HCC) Thyroid disease ([facility]/HCC) Venous reflux 11/26/2023 ALLERGIES: No Known Allergies [...] Bo D.O. documented in this encounterSaint [facility] [id number] Telephone encounter Note* Telephone Encounter - DEBI Cho - 06/09/2024 12:22 PM EDT Spoke with patient and he will RTW tomorrow with light duty [facility] Work Phone: 1(889) 514-386509-17-2024 Miscellaneous Notes* Telephone Encounter - DEBI Cho [...] questions, if you could call him at [phone] documented in this encounterSaint [facility] [id number] Telephone encounter Note* Telephone Encounter - DEBI Cho - 06/09/2024 12:16 PM EDT Spoke with patient and answered questions, he would like to RTW tomorrow with restrictions, spoke with Dr Bo and he said that was fine [facility] [id number] Telephone encounter Note* Telephone Encounter - Sarah Marshall - 06/09/2024 12:13 PM EDT Pt called and left vm stated he has PO questions, if you could call him at [phone] [facility] [id number] History of Present illness Narrative* Blank Mcfarlane [...] weeks, continue off work documented in this [facility]09-03-2024 Telephone encounter Note* Telephone Encounter - Tiburcio Noel NP - 05/26/2024 12:16 PM EDT Post op pain rx. PDMP reviewed [facility] [id number] Miscellaneous Notes* Telephone Encounter - Tiburcio Noel NP - 05/26/2024 12:16 PM EDT Post op pain rx. PDMP reviewed documented in this [facility]08-05-2024 Instructions* Patient Instructions* Ora Delvalle [...] you have a Living Will/Durable Power of Caretaker Grounds for Health Care that is not on [...] after you have bathed. 5. NO nail icelandic/acrylic on at least one finger. If you are having a hand, wrist or foot surgery then all nail icelandic and artificial/acrylic nails must be removed from [...] please call the Preadmission Testing office at [phone], Mon.-Fri. 7 a.m.-3 p.m. Leave a voicemail [...] appointment with your doctor. [facility] Miscellaneous Notes* Perioperative Nursing Note - Ora Delvalle RN - 04/27/2024 8:15 AM EDT Preoperative Education Checklist- General Surgery date: 05/27/24 Surgery time: 0730 a.m. Arrival time: 0610 a.m. 1. Bring a photo ID and your insurance card with you the day of surgery. You will check in at the main lobby of the [facility]- registration desk is straight ahead as soon as you walk in. Tell them you are here for surgery. 2. If you have a Living Will/Durable Power of Caretaker Grounds for Health Care that is not on [...] after you have bathed. 5. NO nail icelandic/acrylic on at least one finger. If you are having a hand, wrist or foot surgery then all nail icelandic and artificial/acrylic nails must be removed from [...] please call the Preadmission Testing office at [phone], Mon.-Fri. 7 a.m.-3 p.m. Leave a voicemail [...] reviewed. Patient verbalized understanding. [facility] Nurse Note* Perioperative Nursing Note - Ora Delvalle RN - 04/27/2024 8:15 AM EDT Preoperative Education Checklist- General Surgery date: 05/27/24 Surgery time: 0730 a.m. Arrival time: 0610 a.m. 1. Bring a photo ID and your insurance card with you the day of surgery. You will check in at the main lobby of the [facility]- registration desk is straight ahead as soon as you walk in. Tell them you are here for surgery. 2. If you have a Living Will/Durable Power of Caretaker Grounds for Health Care that is not on [...] after you have bathed. 5. NO nail icelandic/acrylic on at least one finger. If you are having a hand, wrist or foot surgery then all nail icelandic and artificial/acrylic nails must be removed from [...] please call the Preadmission Testing office at [phone], Mon.-Fri. 7 a.m.-3 p.m. Leave a voicemail [...] to the follow-up appointment with your doctor. [facility]08-05-2024 Nurse Note* Perioperative Nursing Note - Ora Delvalle RN - 04/27/2024 8:15 AM EDT Hibiclens and surgical instructions reviewed. Patient verbalized understanding. [facility]* Diagnosis Onset Date Resolution Status GERD (gastroesophageal reflux disease) acute Hypomagnesemia acute Primary hypertension [facility] Work Phone: Evaluation note* Diagnosis Onset Date Resolution Status GERD (gastroesophageal reflux disease) acute Hypomagnesemia acute Primary hypertension acute Dyspepsia acute GERD (gastroesophageal reflux disease) [facility] Work Phone: Evaluation note* Diagnosis Restless legs syndrome Restless legs syndrome (RLS) [facility]* Diagnosis Cubital tunnel syndrome on right- Primary documented in this encounter [facility]* Diagnosis Essential hypertension, benign [...] [facility]* Diagnosis Essential hypertension, benign ([facility]/HCC)- Primary Essential hypertension, benign Screening for prostate [...] of magnesium metabolism documented in this encounter [facility]* Diagnosis Essential hypertension, benign (CMS/HCC)- [...] myalgia and myositis documented in this encounter [facility]* Diagnosis Essential hypertension, benign (CMS/HCC)- [...] of magnesium metabolism documented in this encounter [facility] HealthcareEvaluation noteNo assessment information availableThe [facility] Work Phone: Evaluation note* Diagnosis Essential [...] Morbid (severe) obesity due to excess calories ([facility]) Body mass index (BMI) 38.0-38.9, adult Obesity (BMI 30-39.9) Cigarette nicotine dependence without complication Gastroesophageal reflux disease, unspecified whether esophagitis present Hypomagnesemia Disorders of magnesium metabolism Pre-operative clearance- Primary Unspecified pre-operative examination Hypomagnesemia Disorders of magnesium metabolism Restless legs syndrome Restless legs syndrome (RLS) COPD with acute exacerbation ([facility]) Chronic bronchitis, unspecified chronic bronchitis type (CMS/HCC) Essential hypertension, benign (CMS/HCC) Essential hypertension, benign Gastroesophageal reflux disease, unspecified whether esophagitis present GURVINDER (obstructive sleep apnea) Obstructive sleep apnea (adult) (pediatric) Pulmonary hypertension ([facility]/HCC) Other chronic pulmonary heart diseases LV dysfunction Left heart failure Essential hypertension, benign (CMS/HCC)- Primary Essential hypertension, benign Hypomagnesemia Disorders of magnesium metabolism Gastroesophageal reflux disease, unspecified whether esophagitis present Obesity (BMI 30-39.9) Hypothyroidism, unspecified type ([facility]/HCC) Needs flu shot Need for prophylactic vaccination and inoculation against influenza Hypomagnesemia- Primary Disorders of magnesium metabolism Essential hypertension, benign ([facility]/HCC)- Primary Essential hypertension, benign Morbid (severe) obesity due to excess calories ([facility]) Gastro-esophageal reflux disease without esophagitis Body mass index (BMI) 37.0-37.9, adult GURVINDER (obstructive sleep apnea) Obstructive sleep apnea (adult) (pediatric) COPD mixed type (CMS/HCC) Pulmonary hypertension (CMS/HCC) Other chronic pulmonary heart diseases Hypothyroidism, unspecified type ([facility]/HCC) Obesity (BMI 30-39.9) Mixed hyperlipidemia (CMS/HCC) Mixed hyperlipidemia Hypomagnesemia Disorders of magnesium metabolism Marijuana use Pre-diabetes Other abnormal glucose Chronic bronchitis, unspecified chronic bronchitis type (CMS/HCC) documented in this encounter [facility]Evaluation note* Diagnosis Essential hypertension, benign (CMS/HCC)- [...] legs syndrome (RLS) documented in this encounter [facility]* Diagnosis Preop examination- Primary Unspecified pre-operative examination Hypertension, unspecified type [facility]* Diagnosis Onset Date Resolution Status Admit Date GERD (gastroesophageal reflu x disease) acute December 02, 2024 1:43pm Hypomagnesemia acute November 1:43pm Primary hypertension acute An[place] 2024 1:43pm [facility] Work Phone: Evaluation note* Diagnosis Essential hypertension, [...] Left leg swelling documented in this encounter [facility]* Diagnosis Essential hypertension, benign- Primary [...] hypertension, benign Chronic kidney disease, stage 3a ([facility]) Gastro-esophageal reflux disease without esophagitis Morbid (severe) obesity due to excess calories ([facility]) Mixed hyperlipidemia Mixed hyperlipidemia Hypomagnesemia Disorders of magnesium metabolism Screening for prostate cancer Special screening for malignant neoplasm of prostate Marijuana use Hypothyroidism, unspecified type Fibromyalgia Unspecified myalgia and myositis Cellulitis of left lower extremity- Primary Essential hypertension, benign Essential hypertension, benign Morbid (severe) obesity due to excess calories ([facility]) Hypomagnesemia Disorders of magnesium metabolism Cigarette nicotine dependence without complication MARITZA (acute kidney injury) Left leg swelling Cellulitis of left lower extremity- Primary Essential hypertension, benign Essential hypertension, benign Left leg swelling Morbid (severe) obesity due to excess calories ([facility]) Chronic bronchitis, unspecified chronic bronchitis type (HCC) Restless legs syndrome Restless legs syndrome (RLS) Atopic dermatitis, unspecified type documented in this encounter [facility]* Diagnosis Essential hypertension, benign- Primary [...] Morbid (severe) obesity due to excess calories ([facility]) Body mass index (BMI) 38.0-38.9, [...] Morbid (severe) obesity due to excess calories ([facility]) Gastro-esophageal reflux disease without esophagitis [...] hypertension, benign Chronic kidney disease, stage 3a ([facility]) Gastro-esophageal reflux disease without esophagitis Morbid (severe) obesity due to excess calories ([facility]) Mixed hyperlipidemia Mixed hyperlipidemia Hypomagnesemia Disorders of magnesium metabolism Screening for prostate cancer Special screening for malignant neoplasm of prostate Marijuana use Hypothyroidism, unspecified type Fibromyalgia Unspecified myalgia and myositis Cellulitis of left lower extremity- Primary Essential hypertension, benign Essential hypertension, benign Morbid (severe) obesity due to excess calories ([facility]) Hypomagnesemia Disorders of magnesium metabolism Cigarette nicotine dependence without complication MARITZA (acute kidney injury) Left leg swelling Cellulitis of left lower extremity- Primary Essential hypertension, benign Essential hypertension, benign Left leg swelling Morbid (severe) obesity due to excess calories ([facility]-HCC) Chronic bronchitis, unspecified chronic bronchitis type (HCC) Restless legs syndrome Restless legs syndrome (RLS) Atopic dermatitis, unspecified type Atopic dermatitis, unspecified type documented in this encounter [facility]* Diagnosis Essential hypertension, benign- Primary [...] Morbid (severe) obesity due to excess calories ([facility]-HCC) Body mass index (BMI) 38.0-38.9, adult Obesity [...] Essential hypertension, benign documented in this encounter [facility]* Diagnosis Essential hypertension, benign- Primary [...] Morbid (severe) obesity due to excess calories ([facility]) Body mass index (BMI) 38.0-38.9, [...] Morbid (severe) obesity due to excess calories ([facility]) Gastro-esophageal reflux disease without esophagitis [...] hypertension, benign Chronic kidney disease, stage 3a ([facility]) Gastro-esophageal reflux disease without esophagitis Morbid (severe) obesity due to excess calories ([facility]) Mixed hyperlipidemia Mixed hyperlipidemia Hypomagnesemia [...] not elsewhere classified documented in this encounter [facility]* Diagnosis Chronic venous insufficiency- Primary Unspecified venous (peripheral) insufficiency Chronic deep vein thrombosis (DVT) of popliteal vein of left lower extremity (CMS-HCC) 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 ([facility]) documented in this encounter [facility]* Diagnosis Onset Date Resolution Status Admit Date GERD (gastroesophageal reflu x disease) acute April 06, 2025 2:37pm Hypomagnesemia acute April 06, 2025 2:37pm Primary hypertension acute April 06, 2025 2:37pm [facility] Work Phone: Evaluation note* Diagnosis Essential hypertension, [...] Morbid (severe) obesity due to excess calories ([facility]) Gastro-esophageal reflux disease without esophagitis [...] hypertension, benign Chronic kidney disease, stage 3a ([facility]) Gastro-esophageal reflux disease without esophagitis Morbid (severe) obesity due to excess calories ([facility]) Mixed hyperlipidemia Mixed hyperlipidemia Hypomagnesemia Disorders of magnesium metabolism Screening for prostate cancer Special screening for malignant neoplasm of prostate Marijuana use Hypothyroidism, unspecified type Fibromyalgia Unspecified myalgia and myositis Cellulitis of left lower extremity- Primary Essential hypertension, benign Essential hypertension, benign Morbid (severe) obesity due to excess calories ([facility]) Hypomagnesemia Disorders of magnesium metabolism Cigarette nicotine dependence without complication MARITZA (acute kidney injury) Left leg swelling Cellulitis of left lower extremity- Primary Essential hypertension, benign Essential hypertension, benign Left leg swelling Morbid (severe) obesity due to excess calories ([facility]) Chronic bronchitis, unspecified chronic bronchitis type (HCC) [...] hand, unspecified cause documented in this encounter [facility] HealthcareEvaluation note* Diagnosis Chronic venous insufficiency- Primary Unspecified venous (peripheral) insufficiency Chronic deep vein thrombosis (DVT) of popliteal vein of left lower extremity (CMS-HCC) 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 (CMS-HCC) 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 (CMS-HCC)- Primary Chronic deep vein thrombosis (DVT) of left thigh (CMS-HCC) [facility]* Diagnosis Essential hypertension, benign- Primary Essential [...] Morbid (severe) obesity due to excess calories ([facility]) Gastro-esophageal reflux disease without esophagitis Body mass [...] hypertension, benign Chronic kidney disease, stage 3a ([facility]) Gastro-esophageal reflux disease without esophagitis Morbid (severe) obesity due to excess calories ([facility]) Mixed hyperlipidemia Mixed hyperlipidemia Hypomagnesemia Disorders of magnesium metabolism Screening for prostate cancer Special screening for malignant neoplasm of prostate Marijuana use Hypothyroidism, unspecified type Fibromyalgia Unspecified myalgia and myositis Cellulitis of left lower extremity- Primary Essential hypertension, benign Essential hypertension, benign Morbid (severe) obesity due to excess calories ([facility]) Hypomagnesemia Disorders of magnesium metabolism Cigarette nicotine dependence without complication MARITZA (acute kidney injury) Left leg swelling Cellulitis of left lower extremity- Primary Essential hypertension, benign Essential hypertension, benign Left leg swelling Morbid (severe) obesity due to excess calories ([facility]) Chronic bronchitis, unspecified chronic bronchitis type (HCC) Restless legs syndrome Restless legs syndrome (RLS) Atopic dermatitis, unspecified type Essential hypertension, benign- Primary Essential hypertension, benign Morbid (severe) obesity due to excess calories ([facility]) Gastro-esophageal reflux disease without esophagitis 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) Fibromyalgia Unspecified myalgia and myositis Bronchitis Bronchitis, not specified as acute or chronic Acute gout of left hand, unspecified cause Essential hypertension, benign- Primary Essential hypertension, benign Gastro-esophageal reflux disease without esophagitis Morbid (severe) obesity due to excess calories (CMS-HCC) Cigarette nicotine dependence without complication Acute gout of left hand, unspecified cause COPD with acute exacerbation (HCC) Restless legs syndrome Restless legs syndrome (RLS) documented in this encounter [facility] HealthcareHistory and physical note Author James Elaine [facility] July 09, 2024 1:12pm Note Date/Time July 09, 2024 1 :12pm [facility] [address] [place] [address] Gastroenterology H&P Signed Patient: Abram Guillaume MR#: [id number] 4 : 1965 Acct:[id number] Age/Sex: 58 / M Adm Date: 4 Loc: Room: Type: [facility] Attending Dr: James Elaine MD Copies to: MD Pepper Werner COVER MARKER-C~ Date of Service: 07/09/2024 HISTORY & PHYSICAL: [...] <Electronically signed by James Elaine MD> 07/09/24 1311 [facility] Work Phone: Hospital Discharge instructions Additional [...] NOT operate machinery such as power tools, Multichanneln mowers, Plexxwers, sewing machines, etc. for 24 hours. - [...] -Continue omeprazole 40 mg daily -Office number [phone]. [facility] Work Phone: InstructionsNot on filedocumented in this encounter [facility] SystemInstructionsNot on filedocumented in this encounter [facility] SystemReason for referral (narrative)No reason for referral information availableReg[facility] Work Phone: Summary Purpose Family History Relationship Condition Age at Onset Recorded Date/T valerie Not Specified No pertinent family history Unknown Advance Directives Advance Directive Response Recorded Date/ Time Advance Directives No March 18 2:19pm Advance Directive Response Recorded Date/ Time Advance Directives No March 18 1:19pm Date Activated Date Inactivated Comments 12/16/2021 11:22 AM 12/16/2021 5:00 PM Date Activated Date Inactivated Comments 12/16/2021 11:22 [...] ECG 12 lead Rupert Bo DO [address] [address] Referral ID Status Reason Start Date Expiration Date V isits Requested Visits Authorized [id number] Pending Review 04/23/2024 04/23/2025 1 1 Additional Source Comments (unrecognized sect ion and content) No Status Records FoundNo Status Records FoundNo Status Records FoundNo Status Records FoundNo Status Records FoundNo Status Records Found INFORMATION SOURCE (unrecogn ized section and content) DATE CREATED AUTHOR 05/18/2022 [facility] DATE CREATED AUTHOR AUTHOR'S ORGANIZ ATION 07/22/2022 [facility] DATE CREATED AUTHOR AUTHOR'S ORGANIZ ATION 10/16/2024 [facility] DATE CREATED AUTHOR AUTHOR'S ORGANIZ ATION 03/09/2025 [facility] EPIC DATE CREATED AUTHOR AUTHOR'S ORGANIZ ATION 04/21/2025 [facility] DATE CREATED AUTHOR AUTHOR'S ORGANIZ ATION 05/01/2025 [facility] [...] June 23, 2024 End: June 23, 2024 Solid Die Cutter Relationship Specialty Start Date End Date Anastacio Hinojosa MD [address] [place] [address] PCP - General Family Medicine 11/26/23 Pepper Sexton NP [address] [place] [address] PCP - [facility] 04/23/24 Pepper Sexton NP [address] [place] [address] Nurse Practitioner Family Medicine 11/26/23 Team Status: Inactive Member Role Status Dates Pepper Sexton Primary Care Provider Active Sta rt: June 24, 2024 End: June 24, 2024 Dav Swanson APRN Attending Provider Active Start: June 24, 2024 End: June 24, 2024 Solid Die Cutter Relationship Specialty Start Date End Date Anastacio Hinojosa MD [address] [place] [address] PCP - General Family Medicine 11/26/23 Pepper Sexton NP [address] [place] [address] PCP - [facility] [employer] 04/23/24 Pepper Sexton NP [address] [place] [address] Nurse Practitioner Family Medicine 11/26/23 Solid Die Cutter Relationship Specialty Start Date End Date Anastacio Hinojosa MD [address] [place] [address] PCP - General Family Medicine 11/26/23 Pepper Sexton NP [address] [place] [address] PCP - [facility] [employer] 04/23/24 Pepper Sexton NP [address] [place] [address] Nurse Practitioner Family Medicine 11/26/23 Solid Die Cutter Relationship Specialty Start Date End Date Anastacio Hinojosa MD [address] [place] [address] PCP - General Family Medicine 11/26/23 Pepper Sexton NP [address] [place] [address] PCP - [employer] 04/23/24 Pepper Sexton NP [address] [place] [address] Nurse Practitioner Family Medicine 11/26/23 Solid Die Cutter Relationship Specialty Start Date End Date Anastacio Hinojosa MD [address] [place] [address] PCP - General Family Medicine 11/26/23 Pepper Sexton NP [address] [place] [address] PCP - [employer] 04/23/24 Pepper Sexton NP [address] [place] [address] Nurse Practitioner Family Medicine 11/26/23 Solid Die Cutter Relationship Specialty Start Date End Date Anastacio Hinojosa MD [address] [place] [address] PCP - General Family Medicine 11/26/23 Pepper Sexton NP [address] [place] [address] PCP - [employer] 04/23/24 Pepper Sexton NP [address] [place] [address] Nurse Practitioner Family Medicine 11/26/23 Team Status: [...] Other Provider Active Start: July 09, 2024 Solid Die Cutter Relationship Specialty Start Date End Date Anastacio Hinojosa MD [address] [place] [address] PCP - General Family Medicine 11/26/23 Pepper Sexton NP [address] [place] [address] PCP - [employer] 04/23/24 Pepper Sexton NP [address] [place] [address] Nurse Practitioner Family Medicine 11/26/23 Solid Die Cutter Relationship Specialty Start Date End Date Anastacio Hinojosa MD [address] [place] [address] PCP - General Family Medicine 11/26/23 Pepper Sexton NP [address] [place] [address] PCP - [employer] 04/23/24 Pepper Sexton NP [address] [place] [address] Nurse Practitioner Family Medicine 11/26/23 Solid Die Cutter Relationship Specialty Start Date End Date Anastacio Hinojosa MD [address] [place] [address] PCP - General Family Medicine 11/26/23 Pepper Sexton NP [address] [place] [address] PCP - [employer] 04/23/24 Pepper Sexton NP [address] [place] [address] Nurse Practitioner Family Medicine 11/26/23 Solid Die Cutter Relationship Specialty Start Date End Date Anastacio Hinojosa MD [address] [place] [address] PCP - General Family Medicine 11/26/23 Pepper Sexton NP [address] [place] [address] Nurse Practitioner Family Medicine 11/26/23 Solid Die Cutter Relationship Specialty Start Date End Date Anastacio Hinojosa MD [address] [place] [address] PCP - General Family Medicine 11/26/23 Pepper Sexton NP [address] [place] [address] PCP - [employer] 04/23/24 Pepper Sexton NP [address] [place] [address] Nurse Practitioner Family Medicine 11/26/23 Solid Die Cutter Relationship Specialty Start Date End Date Anastacio Hinojosa MD [address] [place] [address] PCP - General Family Medicine 11/26/23 Pepper Sexton NP [address] [place] [address] PCP - [employer] 04/23/24 Pepper Sexton NP [address] [place] [address] Nurse Practitioner Family Medicine 11/26/23 Team Status: [...] Other Provider Active Start: October 06, 2024 Solid Die Cutter Relationship Specialty Start Date End Date Anastacio Hinojosa MD [address] [place] [address] PCP - General Family Medicine 11/26/23 Pepper Sexton NP [address] [place] [address] PCP - [employer] 04/23/24 Pepper Sexton NP [address] [place] [address] Nurse Practitioner Family Medicine 11/26/23 Solid Die Cutter Relationship Specialty Start Date End Date Anastacio Hinojosa MD [address] [place] [address] PCP - General Family Medicine 11/26/23 Pepper Sexton NP [address] [place] [address] PCP - [employer] 04/23/24 Pepper Sexton NP [address] [place] [address] Nurse Practitioner Family Medicine 11/26/23 Solid Die Cutter Relationship Specialty Start Date End Date Anastacio Hinojosa MD [address] [place] [address] PCP - General Family Medicine 11/26/23 Ppeper Sexton NP [address] [place] [address] PCP - [employer] 04/23/24 Pepper Sexton NP [address] [place] [address] Nurse Practitioner Family Medicine 11/26/23 Solid Die Cutter Relationship Specialty Start Date End Date Anastacio Hinojosa MD [address] [place] [address] PCP - General Family Medicine 11/26/23 Pepper Sexton NP [address] [place] [address] PCP - [employer] 04/23/24 Pepper Sexton NP [address] [place] [address] Nurse Practitioner Family Medicine 11/26/23 Solid Die Cutter Relationship Specialty Start Date End Date Anastacio Hinojosa MD [address] [place] [address] PCP - General Family Medicine 11/26/23 Pepper Sexton NP [address] [place] [address] PCP - [employer] 04/23/24 Pepper Sexton NP [address] [place] [address] Nurse Practitioner Family Medicine 11/26/23 Solid Die Cutter Relationship Specialty Start Date End Date Anastacio Hinojosa MD [address] [place] [address] PCP - General Family Medicine 11/26/23 Pepper Sexton NP [address] [place] [address] PCP - [employer] 04/23/24 Pepper Sexton NP [address] [place] [address] Nurse Practitioner Family Medicine 11/26/23 Solid Die Cutter Relationship Specialty Start Date End Date Pepper Sexton, ELEVATOR WORKER-IRON LAUNDER OPERATOR [address] [place] [address] PCP - General Nurse Practitioner 05/10/22 Team [...] December 02, 2024 End: December 02, 2024 Solid Die Cutter Relationship Specialty Start Date End Date Anastacio Hinojosa MD [address] [place] [address] PCP - General Family Medicine 11/26/23 Pepper Sexton NP [address] [place] [address] PCP - [employer] 04/23/24 Pepper Sexton NP [address] [place] [address] Nurse Practitioner Family Medicine 11/26/23 Solid Die Cutter Relationship Specialty Start Date End Date Anastacio Hinojosa MD [address] [place] [address] PCP - General Family Medicine 11/26/23 Pepper Sexton NP [address] [place] [address] PCP - [employer] 04/23/24 Pepper Sexton NP [address] [place] [address] Nurse Practitioner Family Medicine 11/26/23 Solid Die Cutter Relationship Specialty Start Date End Date Anastacio Hinojosa MD [address] [place] [address] PCP - General Family Medicine 11/26/23 Pepper Sexton NP [address] [place] [address] Nurse Practitioner Family Medicine 11/26/23 Solid Die Cutter Relationship Specialty Start Date End Date Anastacio Hinojosa MD [address] [place] [address] PCP - General Family Medicine 11/26/23 Pepper Sexton NP [address] [place] [address] Nurse Practitioner Family Medicine 11/26/23 Solid Die Cutter Relationship Specialty Start Date End Date Anastacio Hinojosa MD [address] [place] [address] PCP - General Family Medicine 11/26/23 Pepper Sexton NP [address] [place] [address] Nurse Practitioner Family Medicine 11/26/23 Solid Die Cutter Relationship Specialty Start Date End Date Anastacio Hinojosa MD [address] [place] [address] PCP - General Family Medicine 11/26/23 Pepper Sexton NP [address] [place] [address] Nurse Practitioner Family Medicine 11/26/23 Solid Die Cutter Relationship Specialty Start Date End Date Anastacio Hinojosa MD [address] [place] [address] PCP - General Family Medicine 11/26/23 Pepper Sexton NP [address] [place] [address] Nurse Practitioner Family Medicine 11/26/23 Solid Die Cutter Relationship Specialty Start Date End Date Anastacio Hinojosa MD [address] [place] [address] PCP - General Family Medicine 11/26/23 Pepper Sexton NP [address] [place] [address] Nurse Practitioner Family Medicine 11/26/23 Solid Die Cutter Relationship Specialty Start Date End Date Anastacio Hinojosa MD [address] [place] [address] PCP - General Family Medicine 11/26/23 Pepper Setxon NP [address] [place] [address] Nurse Practitioner Family Medicine 11/26/23 Solid Die Cutter Relationship Specialty Start Date End Date Anastacio Hinojosa MD [address] [place] [address] PCP - General Family Medicine 11/26/23 Pepper Sexton NP [address] [place] [address] Nurse Practitioner Family Medicine 11/26/23 Solid Die Cutter Relationship Specialty Start Date End Date Anastacio Hinojosa MD [address] [place] [address] PCP - General Family Medicine 11/26/23 Pepper Sexton NP [address] [place] [address] Nurse Practitioner Family Medicine 11/26/23 Solid Die Cutter Relationship Specialty Start Date End Date Pepper Sexton, ELEVATOR WORKER-[facility] PCP - General Nurse Practitioner 05/10/22 Solid Die Cutter Relationship Specialty Start Date End Date Anastacio Hinojosa MD [address] [place] [address] PCP - General Family Medicine 11/26/23 Pepper Sexton NP [address] [place] [address] Nurse Practitioner Family Medicine 11/26/23 Solid Die Cutter Relationship Specialty Start Date End Date Anastacio Hinojosa MD [address] [place] [address] PCP - General Family Medicine 11/26/23 Pepper Sexton NP [address] [place] [address] Nurse Practitioner Family Medicine 11/26/23 Solid Die Cutter Relationship Specialty Start Date End Date Anastacio Hinojosa MD [address] [place] [address] PCP - General Family Medicine 11/26/23 Pepper Sexton NP [address] [place] [address] Nurse Practitioner Family Medicine 11/26/23 Solid Die Cutter Relationship Specialty Start Date End Date Pepper Sexton, ELEVATOR WORKER-[employer]ON LAUNDER OPERATOR PCP - General Nurse Practitioner 05/10/22 Solid Die Cutter Relationship Specialty Start Date End Date Anastacio Hinojosa MD [address] [place] [address] PCP - General Family Medicine 11/26/23 Pepper Sexton NP [address] [place] [address] Nurse Practitioner Family Medicine 11/26/23 Solid Die Cutter Relationship Specialty Start Date End Date Anastacio Hinojosa MD [address] [place] [address] PCP - General Family Medicine 11/26/23 Pepper Sexton NP [address] [place] [address] Nurse Practitioner Family Medicine 11/26/23 Goals (unrecognized section and content) Goals may be documented in a n alternate sectionGoals may be documented in an alternate sectionGoals may be documented in an alternate sectionNot on filedocumented as of this encounterNot on filedocumented as of this encounterGoals may be documented in an alternate sectionNot [...] swelling Specialty Diagnoses / Procedures Referred By Kira ybarra Referred To Contact Vascular Surgery Diagnoses Cellulitis of left lower extremity Left leg swelling Procedures [place] OFFICE OUTPATIENT VISIT 60-74 MINS HIGH MDM [id number] (SNOMED CT) - AMB REFERRAL TO VASCULAR SURGERY Pepper Sexton, ELEVATOR WORKER-IRON LAUNDER OPERATOR Phone: tel: fax: Fátima Isabel MD [address], [address] [address] Phone: tel:[phone] fax: Referral ID Status Reason Start Date Expiration Date V isits Requested Visits Authorized [id number] Pending Review 03/08/2025 09/04/2025 1 1 Reason Comments follow up testing Follow up with testi ng and compression. Vas venous duplex insufficiency lwr lt on 04/20/2025. Chronic venous insufficiency, Chronic deep vein thrombosis (DVT) of popliteal vein of left lower extremity, Varicose veins of lower extremity with varicose ulcer and ecze ma FOR RECORDS PERTAINING TO PATIENTS WHO ARE [...] BE BASED ON THE PRIMARY CLINICAL RECORDS. [employer] provides no warranty or guarantee of the accuracy or completeness of information in this document.
[2025-05-06 13:03] LABS: Magnesium 0.7 mg/dL (1.8-2.4)
== END 2025-05-06 12:24 | disposition home or self-care (01) ==
LOC: LAB 12:26
PROVIDERS: PCP Nurse Practitioner; Visit Provider Internal Medicine Nephrology
DX: E83.42 Hypomagnesemia (principal); K21.00 Gastro-esophageal reflux disease with esophagitis, without bleeding; I10 Essential (primary) hypertension
CPT/HCPCS: 36415; 83735

== ENCOUNTER 2025-05-07 07:35 | Outpatient (RCR) | payer BC, SELFPAY ==
[2025-05-07 08:56] VITALS: BP 131/82; PULSE 96; TEMP 36.6; O2SAT 92
[2025-05-07] MEDS: MAGNESIUM SULFATE IN WATER 4 GM/100 ML PIGGYBACK IV (09:10)
[2025-05-07] MEDS: 0.9 % SODIUM CHLORIDE 250 ML IV (09:10)
== END 2025-05-23 23:59 | disposition home or self-care (01) ==
LOC: INF 07:35
PROVIDERS: PCP Nurse Practitioner; Visit Provider Internal Medicine Nephrology
DX: E83.42 Hypomagnesemia (principal)
CPT/HCPCS: 96365; 96366; J3475

== ENCOUNTER 2025-06-16 10:10 | Outpatient (OUT) | payer BC, SELFPAY ==
--- OUTSIDE RECORDS SUMMARY | 2025-06-16 10:14 | XMS_ITS | Clinical Summary ---
Author Organization [facility] Healthcare Address [address] [place] [address] Care Team Providers Care Motor Coach Operator Name Role Phone Anastacio Hinojosa MD Primary Care Provider [phone] Pepper Sexton NP Unavailable [phone] Allergies No known active allergies Medications albuterol HFA (Ventolin HFA) 90 mcg/act inhalerIndicatio ns:Chronic Obstructive Pulmonary Disease Inhale 2 puffs every 6 (six) hours if needed for wheezing or shortness of breath 18 g 1 4 Active pravastatin (Pravachol) 20 MG tablet Take 1 tablet by mouth Daily Active spironolactone (Aldactone) 50 MG tablet Take 50 mg by mouth Daily Active Magnesium Glycinate 100 MG capsule Take 100 mg by mouth in the morning and 100 mg in the evening and 100 mg before bedtime. 5 Active Eliquis 5 MG tablet TAKE 2 TABLETS BY MOUTH TWICE DAILY FOR 4 DAYS and then TAKE 1 TABLET BY MOUTH TWICE DAILY thereafter 5 Active budesonide-formo terol (Symbicort) 160-4.5 MCG/ACT inhalerIndicatio ns:Chronic bronchitis, unspecified chronic bronchitis type (HCC) Inhale 2 puffs in the morning and 2 puffs before bedtime. Rinse mouth with water after use to reduce aftertaste and incidence of candidiasis. Do not swallow. 10.2 g 5 5 Active valsartan (Diovan) 320 MG tabletIndication s:Essential hypertension, benign Take 1 tablet (320 mg) by mouth Daily 90 tablet 1 5 Active levothyroxine (Synthroid, Levoxyl) 112 MCG tabletIndication s:Hypothyroidism , unspecified type Take 1 tablet (112 mcg) by mouth in the morning. Take before meals. 90 tablet 5 Active omeprazole (PriLOSEC) [address] capsuleIndicatio ns:Gastroesophag eal reflux disease, unspecified whether esophagitis present Take 1 capsule (40 mg) by mouth in the morning. Take before meals. Do not crush or chew. 90 capsule 1 5 Active amLODIPine (Norvasc) 10 MG tabletIndication s:Essential hypertension, benign Take 1 tablet (10 mg) by mouth Daily 90 tablet 1 5 Active nebivolol (Bystolic) 10 MG tabletIndication s:Essential hypertension, benign Take 1 tablet (10 mg) by mouth Daily 90 tablet 1 5 Active montelukast (Singulair) 10 MG tabletIndication s:Atopic dermatitis, unspecified type Take 1 tablet (10 mg) by mouth at bedtime 90 tablet 1 5 Active acetaminophen (Tylenol 8 Hour) 650 MG ER tablet Take 650 mg by mouth every 8 (eight) hours if needed Active doxepin (SINEquan) 10 MG/ML solutionIndicati ons:Fibromyalgia Take 10 mL (100 mg) by mouth at bedtime 900 mL 1 5 07/06/20 25 Active Calamine-Zinc Oxide 8-8 % lotion Apply 1 Application topically Daily as needed 5 Active gabapentin (Neurontin) 600 MG tabletIndication s:Restless legs syndrome Take 1 tablet (600 mg) by mouth in the morning and 1 tablet (600 mg) before bedtime. 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 We have also discussed lifestyle modifications: attempts to perform physical activity as chronic conditions allow, also to monitor dietary intake: increasing protein/fruits/veggies and lowering carb intake (unless contraindicated). Limit sodas, juices, and sugary drinks. Assessment & Plan (04/07/2025 5:56 AM EDT): Discussed with patient their BMI (actual, verses recommended). We have also discussed lifestyle modifications: attempts to perform physical activity as chronic conditions allow, also to monitor dietary intake: increasing protein/fruits/veggies and lowering carb intake (unless contraindicated). Limit sodas, juices, and sugary drinks. Assessment & Plan (03/08/2025 6:18 AM EDT): [...] without esophag itis 10/07/2024 Assessment & Plan (05/06/2025 6:12 AM EDT): Recommendations: freq small meals, nothing to eat or drink at least 2 hours prior to bed, limit caffeine, alcohol, as well as spicy foods Meds to limit or avoid if possible: NSAIDS Elevate HOB if possible Most recent EGD: 09/2024 Current meds: omeprazole Does continue to have hypomagnesium levels, cannot tolerate off of PPI therapy Assessment & Plan (04/07/2025 5:57 AM EDT): Recommendations: freq small meals, nothing to eat or drink at least 2 hours prior to bed, limit caffeine, alcohol, as well as spicy foods Meds to limit or avoid if possible: NSAIDS Elevate HOB if possible Most recent EGD: 09/2024 Current meds: omeprazole Does continue to have hypomagnesium levels, cannot tolerate off of PPI therapy Assessment & Plan (01/06/2025 6:12 AM EDT): [...] with acute exacerbation 05/04/2024 Assessment & Plan (05/06/2025 8:57 AM EDT): Is currently not taking blood thinner Will add medrol dose pack and atb He was alternating between albuterol and symbicort I did explain how each works and symbicort is twice a day EVERY day and albuterol prn Fu if not better Assessment & Plan (05/04/2024 11:10 AM EDT): [...] pain. 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 Atopic dermatitis 11/26/2023 Psoriasis 11/26/2023 Orthopedic hardware [...] Essential hypertension, benign 08/19/2023 Assessment & Plan (05/06/2025 8:57 AM EDT): Please check blood pressure daily and record DASH diet Limit caffeine Take medication as directed Contact office if chest pain, pressure, dizziness, shortness of breath, swelling legs Recommend slow position changes Current meds: amlodipine,, bystolic, valsartan Assessment & Plan (04/07/2025 9:03 AM EDT): Please check blood pressure daily and record DASH diet Limit caffeine Take medication as directed Contact office if chest pain, pressure, dizziness, shortness of breath, swelling legs Recommend slow position changes Current meds: amlodipine,- (is going to restart), bystolic, valsartan Assessment & Plan (03/08/2025 8:55 AM EDT): [...] 08/19/2023 Nicotine dependence 08/19/2023 Assessment & Plan (05/06/2025 6:13 AM EDT): The patient has been advised of [...] provider when ready to start this process Assessment & Plan (02/17/2025 7:27 PM EDT): [...] Needs flu shot 07/06/2024 07/06/2024 Pre-operative clearance 05/04/202412/22 Assessment & Plan (05/26/2024 7:27 AM EDT): [...] digit is numb at times and his rouge sifter and miller is weak as well likely consistent with ulnar nerve process. 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 Carpal tunnel syndrome 02/02/202407/06 Overview (02/02/2024): Patient [...] scope with GI, has been off his PPI/[id number] for up coming EGD etc Continue with GI Assessment & Plan (05/04/2024 12:01 PM EDT): Did well on intermediate accountant PPI, however severe hypomagnesiumemia Would like to [...] Encounters Date Type Department Care Team Description 05/06/2025 8:20 AM EDT Office [facility] [address] [place] [address] Pepper Sexton NP Essential hypertension, benign (Primary Dx); Gastro-esophageal reflux disease without esophagitis; Morbid (severe) obesity due to excess calories ([facility]); Cigarette nicotine dependence without complication; Acute gout of left hand, unspecified cause; COPD with acute exacerbation ([facility]); Restless legs syndrome 05/06/2025 Clinisync Result Encounter [facility] External Department Unsolicited Provider, Generic External Data 05/06/2025 Bamboo flowsheet [facility] [address] [place] [address] Pepper Sexton NP 04/14/2025 Clinisync Result Encounter [facility] External Department Unsolicited Provider, Generic External Data 04/13/2025 Clinisync Result Encounter [facility] External Department Unsolicited Pepper Sexton NP 04/07/2025 8:20 AM EDT Office Visit [facility] [address] [place] [address] Pepper Sexton NP Essential hypertension, benign (Primary Dx); Morbid (severe) obesity due to excess calories ([facility]); Gastro-esophageal reflux disease without esophagitis; 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 ([facility]); Fibromyalgia; Bronchitis; Acute gout of left hand, unspecified cause 04/07/2025 Bamboo flowsheet [facility] [address] [place] [address] Pepper Sexton NP 03/31/2025 Clinisync Result Encounter [facility] External Department Unsolicited Pepper Sexton NP 03/17/2025 Abstract [facility] [address] [place] [phone] Pepper Sexton NP 03/17/2025 [facility] [address] [place] [phone] Pepper Sexton NP Electrolyte abnormality (Primary Dx) 03/17/2025 Clinisync Result Encounter [facility] External Department Unsolicited Pepper Sexton NP 03/16/2025 Refill [facility] [address] [place] [phone] Pepper Sexton NP Atopic dermatitis, unspecified type 03/16/2025 Refill [facility] [address] [place] [phone] Pepper Sexton NP Hypothyroidism, unspecified type ; Gastroesophageal reflux disease, unspecified whether esophagitis present; Essential hypertension, benign from Last 3 Months Family History Medical [...] Score 0 11/26/2023 [facility]ational [facility] Questionnaire Answer [...] Sign Reading Time Taken Comments Blood Pressure 144/94 05/06/2025 8:25 AM EDT Pulse 95 05/06/2025 8:25 AM EDT Temperature 36.6 C (97.8 F) 05/06/2025 8:25 AM EDT Respiratory Rate 22 05/06/2025 8:25 AM EDT Oxygen Saturation 92% 05/06/2025 8:25 AM EDT Inhaled Oxygen Concentration - - Weight 122 kg (268 lb 9.6 oz) 05/06/2025 8:25 AM EDT Height 175.3 cm (5' 9 ) 01/06/2025 9:06 AM EDT Body Mass Index 39.67 01/06/2025 9:06 AM EDT Plan of Treatment Health Maintenance Due Date Last Done Comments CT Colonography 1967 Colonoscopy 1967 FIT 1967 FOBT 1967 Sigmoidoscopy 1967 Colorectal Cancer Screening 08/11/2025 FIT-DNA 08/11/2025 08/11/2022 Influenza Vaccine Discontinued Procedures Procedure Name Priority Date/Time Associated Diagnosis Comments ALL MAGNESIUM Routine 05/06/2025 12:37 PM EDT ALL MAGNESIUM Routine 04/14/2025 8:38 AM EDT ALL MAGNESIUM Routine 04/13/2025 8:34 AM EDT ALL RENAL FUNCTION PANEL Routine 04/13/2025 8:34 AM EDT ALL URIC ACID Routine 04/13/2025 8:34 AM EDT ALL BASIC METABOLIC PANEL Routine 03/31/2025 9:42 AM EDT SRMCOH PROSTATE SPECIFIC ANTIGEN SCRN Routine 03/17/2025 9:07 AM EDT ALL MAGNESIUM Routine 03/17/2025 9:07 AM EDT ALL PHOSPHOROUS Routine 03/17/2025 9:07 AM EDT ALL THYROXINE (T4) FREE Routine 03/17/2025 9:07 AM EDT ALL THYROID STIM HORMONE Routine 03/17/2025 9:07 AM EDT ALL LIPID PROFILE (FASTING) Routine 03/17/2025 9:07 AM EDT [facility] CMP (CMP) (FOR REMOTE [facility] USE) Routine 03/17/2025 9:07 AM EDT ALL CBC WITH AUTO DIFF Routine 03/17/2025 9:07 AM EDT TBH MICROALB CREAT RATIO RANDOM Routine 03/17/2025 8:58 AM EDT TBH URINE MICROSCOPIC ONLY Routine 03/17/2025 8:58 AM EDT TBH UA (CLEAN/CATCH) MICROSCOPIC IF INDICATE Routine 03/17/2025 8:58 AM EDT from Last 3 Months Results * (ABNORMAL) ALL MAGNESIUM (05/06/2025 12:37 PM EDT) Only the most recent of4 resultswithin the time period is included. MAGNESIUM 0.7(LL) 1.8 - 2.4 mg/dL TB Comment:RESULTS CALLED TO 05/06/2025 12:3 7 PM EDT 05/06/2025 12:38 PM EDT Narrative CLINISYNC - 05/06/2025 1:03 PM EDT Generic External Data Provider CLINIS[facility]NC F inal Result [facility] * ALL URIC ACID (04/13/2025 8:34 AM EDT) URIC ACID 7.2 3.5 - 7.2 mg/dL TB 04/13/2025 8:34 AM EDT 04/13/2025 8:36 AM EDT Narrative CLINISYNC - 04/13/2025 9:24 AM EDT Pepper Carlie PUBLIC RECORDS RESEARCHER CLINISYNC Final Result Performing Organization Address City/[facility]/ZIP Co de Phone Number CLINISYNC [facility] * (ABNORMAL) ALL RENAL FUNCTION PANEL (04/13/2025 8:34 AM EDT) SODIUM 146(H) 136 - 145 mmol/L TBH POTASSIUM 3.9 3.5 - 5.1 mmol/L TBH CHLORIDE 107 98 - 107 mmol/L TBH CARBON DIOXIDE 29.4 21.0 - 32.0 mmol/L TBH ANION GAP 13.5 TBH GLUCOSE 101 74 - 106 mg/dL TBH BLOOD UREA NITROGEN 20.0(H) 7.0 - 18.0 mg/dL TBH CREATININE 1.15 0.70 - 1.30 mg/dL TBH TBH EGFR-AF ERITREAN >60 >=60 mL/min/1.7 3m 2 TBH TBH EGFR-NON AF ERITREAN >60 >=60 mL/min/1.7 3m 2 TBH BUN CREATININE RATIO 17.4 TBH CALCIUM 7.5(L) 8.5 - 10.1 mg/dL TBH PHOSPHORUS 3.5 2.6 - 4.7 mg/dL TBH ALBUMIN LEVEL 3.2(L) 3.4 - 5.0 g/dL TBH 04/13/2025 8:34 AM EDT 04/13/2025 8:36 AM EDT Narrative CLINISYNC - 04/13/2025 9:28 AM EDT us Generic External Data Provider FARSHAD F inal Result Performing Organization Address City/[facility] Co de Phone Number CLINHORACIOMS TB * (ABNORMAL) ALL BASIC METABOLIC PANEL (03/31/2025 9:42 AM EDT) SODIUM 146(H) 136 - 145 mmol/L TBH POTASSIUM 3.5 3.5 - 5.1 mmol/L TBH CHLORIDE 107 98 - 107 mmol/L TBH CARBON DIOXIDE 28.8 21.0 - 32.0 mmol/L TBH ANION GAP 13.7 TBH GLUCOSE 130(H) 74 - 106 mg/dL TBH BLOOD UREA NITROGEN 15.0 7.0 - 18.0 mg/dL TBH CREATININE 1.04 0.70 - 1.30 mg/dL TBH TBH EGFR-AF ERITREAN >60 >=60 mL/min/1.7 3m 2 TBH TBH EGFR-NON AF ERITREAN >60 >=60 mL/min/1.7 3m 2 TBH BUN CREATININE RATIO 14.4 TBH CALCIUM 7.9(L) 8.5 - 10.1 mg/dL TBH 03/31/2025 9:42 AM EDT 03/31/2025 9:43 AM EDT Narrative CLINISYNC - 03/31/2025 10:28 AM EDT us Pepper Sexton NP CLINISYNC Final Result Performing Organization Address [facility] Co de Phone Number EMANUELMS TB * SRMCOH PROSTATE SPECIFIC ANTIGEN SCRN (03/17/2025 9:07 AM EDT) PROSTATE SPECIFIC ANTIGEN SCRN 1.49 <=4.00 ng/mL TB 03/17/2025 9:07 AM EDT 03/17/2025 9:08 AM EDT Narrative CLINISYNC - 03/17/2025 10:31 AM EDT Pepper Sexton NP CLINISYNC Final Result [facility] * (ABNORMAL) [facility] CMP (CMP) (FOR REMOTE [facility] USE) (03/17/2025 9:07 AM EDT) SODIUM 148(H) 136 - 145 mmol/L TBH POTASSIUM 3.4(L) 3.5 - 5.1 mmol/L TBH CHLORIDE 110(H) 98 - 107 mmol/L TBH CARBON DIOXIDE 27.9 21.0 - 32.0 mmol/L TBH ANION GAP 13.5 TBH GLUCOSE 134(H) 74 - 106 mg/dL TBH BLOOD UREA NITROGEN 11.0 7.0 - 18.0 mg/dL TBH CREATININE 1.23 0.70 - 1.30 mg/dL TBH TBH EGFR-AF ERITREAN >60 >=60 mL/min/1. 73m 2 TBH TBH EGFR-NON AF ERITREAN >60 >=60 mL/min/1. 73m 2 TBH BUN [...] CLINISYNC - 03/17/2025 9:31 AM EDT Pepper Aichholz PUBLIC RECORDS RESEARCHER CLINISYNC Final Result Performing Organization Address [facility] de Phone Number CLINISYNC TB * ALL THYROXINE (T4) FREE (03/17/2025 9:07 AM EDT) FREE T4 0.98 0.76 - 1.46 ng/dL TBH 03/17/2025 9:07 AM EDT 03/17/2025 9:08 AM EDT Narrative CLINISYNC - 03/17/2025 10:10 AM EDT Pepper Sexton NP CLINISYNC Final Result Performing Organization Address [facility] de Phone Number CLINISYMS TB * ALL THYROID STIM HORMONE (03/17/2025 9:07 AM EDT) THYROID STIMULATING HORMONE 2.121 0.358 - 3.740 uIU/mL TBH 03/17/2025 9:07 AM EDT 03/17/2025 9:08 AM EDT Narrative CLINISYNC - 03/17/2025 9:48 AM EDT Pepper Sexton PUBLIC RECORDS RESEARCHER CLINISYNC Final Result Performing Organization Address [facility] de Phone Number CLINISYNC TB * ALL PHOSPHOROUS (03/17/2025 9:07 AM EDT) PHOSPHORUS 2.7 2.6 - 4.7 mg/dL TBH 03/17/2025 9:07 AM EDT 03/17/2025 9:08 AM EDT Narrative CLINISYNC - 03/17/2025 10:24 AM EDT Generic External Data Provider CLINISYNC F inal Result Performing Organization Address [facility] de Phone Number CLINISYNC TB * (ABNORMAL) ALL LIPID PROFILE (FASTING) [...] us Pepper Sexton NP CL[facility]IS[facility]NC Final [facility] * ([facility]) ALL CBC WITH AUTO DIFF (03/17/2025 9:07 AM EDT) TB WBC 9.1 4.0 - 11.0 10 3/uL TBH TBH RBC 3.93(L) 4.70 - 6.10 10 6/uL TBH TBH HGB 12.5(L) 14.0 - 18.0 g/dL TB TB HCT 38.3(L) 42.0 - 54.0 % TB TB MCV 97.5(H) 80.0 - 94.0 fL TB TBH MCH 31.8 25.9 - 34.0 pg TBH TB MCHC 32.6 29.9 - 35.2 g/dL TB TBH RDW 15.0 11.0 - 15.0 % [...] EDT Pepper Sexton NP CLINISYNC Final Result [facility] * (ABNORMAL) TBH URINE MICROSCOPIC ONLY [...] CLINISYNC - 03/17/2025 9:25 AM EDT Pepper Aichholz PUBLIC RECORDS RESEARCHER CLINISYNC Final Result Performing Organization Address [facility] de Phone Number CLINISYMS TB * (ABNORMAL) TBH UA (CLEAN/CATCH) MICROSCOPIC IF INDICATE (03/17/2025 8:58 AM EDT) COLOR URINE YELLOW YELLOW TB CLARITY URINE CLEAR CLEAR TBH SPECIFIC GRAVITY URINE 1.025 1.005 - 1.025 TBH PH URINE 6.0 5.0 - 9.0 TBH PROTEIN URINE 30(A) NEG/TRACE mg/dL TBH GLUCOSE URINE UA NEGATIVE NEGATIVE mg/dL TBH BILIRUBIN URINE NEGATIVE NEGATIVE TB KETONES URINE NEGATIVE NEGATIVE mg/dL TBH BLOOD URINE NEGATIVE NEGATIVE TBH NITRITE URINE NEGATIVE NEGATIVE TB UROBILINOGEN URINE 0.2 0.2 - 1.0 EU/dL TBH LEUKOCYTE ESTERASE URINE NEGATIVE NEGATIVE TB URINE MICROSCOPIC INDICATED YES TB 03/17/2025 8:58 AM EDT 03/17/2025 9:08 AM EDT Narrative CLINISYNC - 03/17/2025 9:25 AM EDT us Pepper Sexton NP CLINISYNC Final Result Performing Organization Address [facility] de Phone Number [facility] * (ABNORMAL) TB MICROALB CREAT RATIO RANDOM (03/17/2025 8:58 AM [...] 03/17/2025 9:48 AM EDT us Pepper Sexton PUBLIC RECORDS RESEARCHER CLINISYNC Final Result Performing Organization Address [facility] de Phone Number CLINISYNC TBH from Last 3 Months Insurance Care Teams Motor Coach Operator Relationship Specialty Start Date End Date Anastacio Hinojosa MD PCP - General Family Medicine 11/26/23 Pepper Sexton NP Nurse Practitioner Family Medicine 11/26/23
--- OUTSIDE RECORDS SUMMARY | 2025-06-16 10:14 | XMS_ITS | Encounter Summary ---
Author Organization [facility] Address [address] [place] [address] Care Team Providers Care Client Development Manager Name Role Phone Anastacio Hinojosa MD Primary Care Provider [phone] Pepper Sexton MIXER OPERATOR RAW SALT Unavailable [phone] Pepper Sexton MIXER OPERATOR RAW SALT Unavailable [phone] Encounter Details Date Type Department Care Team (Late st Contact Info) Description 2024 Abstract [facility] [address] [place] [address] Pepper Sexton NP [address] [place] [address] Social History Tobacco Use Types Packs/Day Years [...] often do you attend chur ch or jainism services? Never 11/25/2023 Do you belong to any clubs o r organizations such as scientology groups, unions, fraternal or athletic groups, or [...] Health Questionnaire-2 Score 0 11/26/2023 [facility] of Occupat ional Health - Occupational [...] as of this encounter Plan of Treatment Not on file documented as of this encounter Visit Diagnoses Not on filedocumented in this encounter Care Teams Client Development Manager Relationship Specialty Start Date End Date Anastacio Hinojosa MD PCP - General Family Medicine 11/26/23 Pepper Sexton NP [address] [place] [address] [facility] Pepper Sexton NP Nurse Practitioner Family Medicine 11/26/23 documented as of this encounter
--- OUTSIDE RECORDS SUMMARY | 2025-06-16 10:14 | XMS_ITS | Encounter Summary ---
Author Organization [facility] Address [address] [place] [address] Care Team Providers Care Account Consultant Name Role Phone Anastacio Hinojosa MD Primary Care Provider [phone] Pepper Sexton ANALYTICAL STRATEGIST Unavailable [phone] Pepper Sexton ANALYTICAL STRATEGIST Unavailable [phone] Encounter Details Date Type Department Care Team (Late st Contact Info) Description 07/09/2024 Orders Only [facility] [address] [place] [place] [address] James Elaine MD [address] [address] Social History Tobacco Use Types Packs/Day Years [...] often do you attend chur ch or restorationism services? Never 11/25/2023 Do you belong to any clubs o r organizations such as protestant groups, unions, fraternal or athletic groups, or [...] Recorded Patient Health Questionnaire-2 Score 0 11/26/2023 [facility] of Occupat ional Health - Occupational Stress [...] on file documented as of this encounter Procedures Procedure Name Priority Date/Time Associated Diagnosis Comments SCANNED LABS Routine 07/09/2024 1:15 PM EDT documented in this encounter Results * SCANNED LABS (07/09/2024 1:15 PM EDT) us James Elaine MD LAB CHG PERFORMABLES Final Resul t documented in this encounter Visit Diagnoses Not on filedocumented in this encounter Care Teams Account Consultant Relationship Specialty Start Date End Date Anastacio Hinojosa MD PCP - General Family Medicine 11/26/23 Pepper Sexton NP [address] [place] [address] PCP - [employer] 04/23/24 Pepper Sexton NP Nurse Practitioner Family Medicine 11/26/23 documented as of this encounter
--- OUTSIDE RECORDS SUMMARY | 2025-06-16 10:14 | XMS_ITS | Encounter Summary ---
Author Organization [facility] Address [address] [facility] [place] [address] Care Team Providers Care Sewer System Supervisor Name Role Phone Anastacio Hinojosa MD Primary Care Provider [phone] Pepper Sexton FILES SUPERVISOR Unavailable [phone] Encounter Details Date Type Department Care Team (Late st Contact Info) Description 03/08/2025 Abstract [facility] [address] [place] [address] Pepper Sexton, FILES SUPERVISOR [address] [place] [address] Social History Tobacco Use Types Packs/Day Years [...] any clubs o r organizations such as faith groups, unions, fraternal or athletic groups, or [...] Recorded Patient Health Questionnaire-2 Score 0 11/26/2023 [facility] of Occupat ional Health - Occupational Stress [...] on filedocumented in this encounter Care Teams Sewer System Supervisor Relationship Specialty Start Date End Date Anastacio Hinojosa MD PCP - General Family Medicine 11/26/23 Pepper Sexton NP Nurse Practitioner Family Medicine 11/26/23 documented as of this encounter
--- OUTSIDE RECORDS SUMMARY | 2025-06-16 10:14 | XMS_ITS | Encounter Summary ---
Author Organization [employer] Address [id number] [address] [place] [address] Care Team Providers Care Children'S Tutor Name Role Phone Pepper Sexton Primary Care Provider Encounter Details Date Type Department Care Team (Late st Contact Info) Description 02/05/2022 Orders Only [facility] [address] [place] [address] Ref Prov, [place] [address] Social History Tobacco Use Types Packs/Day Years [...] on filedocumented in this encounter Care Teams Children'S Tutor Relationship Specialty Start Date End Date Pepper Sexton APRN-CNP PCP - General Nurse Practitioner 05/10/22 documented as of this encounter
--- OUTSIDE RECORDS SUMMARY | 2025-06-16 10:14 | XMS_ITS | Encounter Summary ---
Author Organization [facility] Address [address] [facility] [place] [address] Care Team Providers Care Medical Assistant Ob Gyn Name Role Phone Anastacio Hinojosa MD Primary Care Provider [phone] Pepper Sexton SKID WORKER Unavailable [phone] Encounter Details Date Type Department Care Team (Late st Contact Info) Description 03/17/2025 Abstract [facility] [address] [place] [address] Pepper Sexton, SKID WORKER [address] [place] [address] Social History Tobacco Use Types Packs/Day Years [...] often do you attend chur ch or hindu services? Never 11/25/2023 Do you belong to any clubs o r organizations such as advent groups, unions, fraternal or athletic groups, or [...] Health Questionnaire-2 Score 0 11/26/2023 [facility] Occupat ional Health - [...] on filedocumented in this encounter Care Teams Medical Assistant Ob Gyn Relationship Specialty Start Date End Date Anastacio Hinojosa MD PCP - General Family Medicine 11/26/23 Pepper Sexton NP Nurse Practitioner Family Medicine 11/26/23 documented as of this encounter
--- OUTSIDE RECORDS SUMMARY | 2025-06-16 10:14 | XMS_ITS | Encounter Summary ---
Author Organization [facility] Sys tem Address [id number] [address] [place] [address] Care Team Providers Care Furnace Combustion Tester Name Role Phone JavierPepper rios Liam MARTINN-ALMOND PAN FINISHER Primary Care Provider Encounter Details Date Type Department Care Team (Late st Contact Info) Description 05/10/2022 Orders Only [facility] [address] [facility] [address] [place] [address] External, Scanning Provider Social History [...] on filedocumented in this encounter Care Teams Furnace Combustion Tester Relationship Specialty Start Date End Date Pepper Sexton, PAINTER SPRAY-ALMOND PAN FINISHER PCP - General Nurse Practitioner 05/10/22 documented as of this encounter
--- OUTSIDE RECORDS SUMMARY | 2025-06-16 10:14 | XMS_ITS | Encounter Summary ---
Author Organization [facility] Address [address] [place] [address] Care Team Providers Care Business Services Coordinator Name Role Phone Anastacio Hinojosa MD Primary Care Provider [phone] Unavailable [phone] Unavailable [phone] Encounter Details Date Type Department Care Team (Late st Contact Info) Description 11/26/2024 Abstract [facility] [address] [place] [address] Pepper Sexton NP [address] [place] [address] Social History Tobacco Use Types Packs/Day Years [...] Recorded Patient Health Questionnaire-2 Score 0 11/26/2023 [facility] Occupat ional Health - Occupational Stress [...] place to sleep or slept in a prison (including now)? No 11/25/2023 Sex and Gender Information Value Date Recorded Sex Assigned at Not on file Legal Sex Male 11:33 PM EDT Gender Identity Not on file Sexual Orientation Not on file documented as of this encounter Plan of Treatment Not on file documented as of this encounter Visit Diagnoses Not on filedocumented in this encounter Care Teams Business Services Coordinator Relationship Specialty Start Date End Date Anastacio Hinojosa MD PCP - General Family Medicine 11/26/23 Pepper Sexton NP [address] [place] [address] [facility] 04/[facility]/24 Pepper Sexton NP Nurse Practitioner Family Medicine 11/26/23 documented as of this encounter
--- OUTSIDE RECORDS SUMMARY | 2025-06-16 10:14 | XMS_ITS | Encounter Summary ---
Author Organization [facility] Address [address] [facility] [place] [address] Care Team Providers Care Coil Winder Strap Name Role Phone Shaikh MITZI De La Paz Primary Care Provider [phone] Anastacio Hinojosa MD Primary Care Provider [phone] Pepper Sexton NP Unavailable [phone] Pepper Sexton NP Unavailable [phone] Reason for Visit * Reason Comments Med Refill Encounter Details Date Type Department Care Team (Late st Contact Info) Description 11/12/2023 Refill [facility] [address] [place] [address] Pepper Sexton NP [address] [place] [address] Restless legs syndrome Social History Tobacco Use [...] documented in this encounter Plan of Treatment Not on file documented as of this encounter Visit Diagnoses Diagnosis Restless legs syndrome Restless legs syndrome (RLS) documented in this encounter Care Teams Coil Winder Strap Relationship Specialty Start Date End Date Shaikh De La Paz MD PCP - General Internal Medicine 04/04/23 11/25/23 Anastacio Hinojosa MD PCP - General Family Medicine 11/26/23 Pepper Sexton NP [address] [place] [address] PCP - [facility] 04/23/24 Pepper Sexton NP Nurse Practitioner Family Medicine 11/26/23 documented as of this encounter
--- OUTSIDE RECORDS SUMMARY | 2025-06-16 10:14 | XMS_ITS | Patient Health Record ---
Author Organization [facility] Address [address] [place] [address] Care Team Providers Care Washer Operator Name Role Phone Reny Branch Unavailable Reason For Referral No Information Problems Problem Type SNOMED Code ICD Code Onset Dates Problem Status W/U Status Risk Notes Problem Pain in limb (88248429) Pain of left leg (M79.605) Active confirmed Problem Cellulitis of lower limb (370586491) Cellulitis of left lower extremity (L03.116) Active confirmed Encounters Encounter Location Date Provider Diagnosis [facility] [address] [place] [address] 02/10/2025 Reny Branch Cellulitis of left lower [...] Coverage Start Date Coverage End Date Marah [id number] [place] [address] [id number] Abram Sheehan Self - patient is the insured
--- OUTSIDE RECORDS SUMMARY | 2025-06-16 10:14 | XMS_ITS | Encounter Summary ---
Author Organization [facility] Address [address] [place] [address] Care Team Providers Care Front End Loader Driver Name Role Phone Anastacio Hinojosa MD Primary Care Provider [phone] Pepper Sexton NP Unavailable [phone] Encounter Details Date Type Department Care Team (Late st Contact Info) Description 02/10/2025 Orders Only [facility] [address] [place] [address] Angelo Morales MD [address] [place] [address] Social History Tobacco Use Types [...] on filedocumented in this encounter Care Teams Front End Loader Driver Relationship Specialty Start Date End Date Anastacio Hinojosa MD PCP - General Family Medicine 11/26/23 Pepper Sexton NP Nurse Practitioner Family Medicine 11/26/23 documented as of this encounter
--- OUTSIDE RECORDS SUMMARY | 2025-06-16 10:14 | XMS_ITS | Encounter Summary ---
Author [id number] [address] [place] [address] Care Team Providers Care Rocket Propellant Plant Supervisor Name Role Phone JavierPepper rios Liam MARTINN-SYSTEMS ANALYST DEVELOPER Primary Care Provider Encounter Details Date Type Department Care Team (Late st Contact Info) Description 08/28/2022 Orders Only [facility] [address] [place] [address] Ref Prov, [place] [address] Social History Tobacco Use Types Packs/Day Years [...] on filedocumented in this encounter Care Teams Rocket Propellant Plant Supervisor Relationship Specialty Start Date End Date Pepper Sexton, COLD MEAT COOK-SYSTEMS ANALYST DEVELOPER PCP - General Nurse Practitioner 05/10/22 documented as of this encounter
--- OUTSIDE RECORDS SUMMARY | 2025-06-16 10:14 | XMS_ITS | Encounter Summary ---
Author Organization [facility] Address [address] [facility] [place] [address] Care Team Providers Care Resident Buyer Name Role Phone Shaikh MITZI De La Paz Primary Care Provider [phone] Anastacio Hinojosa MD Primary Care Provider [phone] Pepper Sexton WARP TIER Unavailable [phone] Pepper Sexton WARP TIER Unavailable [phone] Encounter Details Date Type Department Care Team (Late st Contact Info) Description 09/22/2023 Abstract [facility] [address] [place] [address] Pepper Sexton, WARP TIER [address] [place] [address] Social History Tobacco Use Types Packs/Day Years [...] on filedocumented in this encounter Care Teams Resident Buyer Relationship Specialty Start Date End Date Shaikh De La Paz MD PCP - General Internal Medicine 04/04/23 11/25/23 Anastacio Hinojosa MD PCP - General Family Medicine 11/26/23 Pepper Sexton NP [address] [place] [address] PCP - [facility] 04/23/24 Pepper Sexton NP Nurse Practitioner Family Medicine 11/26/23 documented as of this encounter
--- OUTSIDE RECORDS SUMMARY | 2025-06-16 10:14 | XMS_ITS | Clinical Summary ---
Author Organization [facility] Address [address] [place] [address], [address] [place] [address] Care Team Providers Care Design Consultant Name Role Phone Unavailable Primary Care Provider [...]
--- OUTSIDE RECORDS SUMMARY | 2025-06-16 10:14 | XMS_ITS | Clinical Summary ---
Author Organization [facility] Address [address] [place] [address] Care Team Providers Care Prep Room Supervisor Name Role Phone Delmer Bryan MD Primary Care Provider [phone] Social History Tobacco Use Types Packs/Day Years Used Date Smoking Tobacco: Never Assessed [place] Safety & Environment Answer Date Rec orded [...] 1989 Zoster Vaccines (1 of 2) 2017 COVID-19 Vaccine (1 - 2023-2 5 season) 2025 Influenza Vaccine (#1) 2025 HIB Vaccines Aged [...] patient's age to complete this topic Insurance [facility] Care Teams Prep Room Supervisor Relationship Specialty Start Date End Date Delmer Bryan MD [facility] [place] [address] PCP - General 05/14/22
--- OUTSIDE RECORDS SUMMARY | 2025-06-16 10:14 | XMS_ITS | Encounter Summary ---
Author Organization [facility] Address [address] [place] [address] Care Team Providers Care Bsa Officer Name Role Phone Anastacio Hinojosa MD Primary Care Provider [phone] Pepper Sexton NP Unavailable [phone] Encounter Details Date Type Department Care Team (Late st Contact Info) Description 02/08/2025 [facility] [address] [facility] [place] [address] Angelo Morales MD [address] [place] [address] Social History Tobacco Use Types [...] often do you attend chur ch or sikh services? Never 11/25/2023 Do you belong to any clubs o r organizations such as taoism groups, unions, fraternal or athletic groups, or [...] Recorded Patient Health Questionnaire-2 Score 0 11/26/2023 [facility] Occupat ional Health - [...] on filedocumented in this encounter Care Teams Bsa Officer Relationship Specialty Start Date End Date Anastacio Hinojosa MD PCP - General Family Medicine 11/26/23 Pepper Sexton NP Nurse Practitioner Family Medicine 11/26/23 documented as of this encounter
--- OUTSIDE RECORDS SUMMARY | 2025-06-16 10:14 | XMS_ITS | Encounter Summary ---
Author Organization [facility] Address [address] [place] [address] Care Team Providers Care Social Secretary Name Role Phone Anastacio Hinojosa MD Primary Care Provider [phone] Pepper Sexton HOT PLATE [place] PRESS FEEDER Unavailable [phone] Pepper Sexton HOT PLATE [place] PRESS FEEDER Unavailable [phone] Encounter Details Date Type Department Care Team (Late st Contact Info) Description 10/06/2024 [facility] [address] [facility] [place] [address] James Elaine MD [address] [address] Social History Tobacco Use Types Packs/Day Years [...] often do you attend chur ch or presybeterian services? Never 11/25/2023 Do you belong to any clubs o r organizations such as pentecostalism groups, unions, fraternal or athletic groups, or [...] Recorded Patient Health Questionnaire-2 Score 0 11/26/2023 [facility] Occupat ional Health - Occupational Stress [...] * SCANNED LABS (10/06/2024 10:55 AM EST) us James Elaine MD LAB CHG PERFORMABLES Final Resul t documented in this encounter Visit Diagnoses Not on filedocumented in this encounter Care Teams Social Secretary Relationship Specialty Start Date End Date Anastacio Hinojosa MD PCP - General Family Medicine 11/26/23 Pepper Sexton NP [address] [place] [address] PCP - [employer] [employer] 04/23/24 Pepper Sexton NP Nurse Practitioner Family Medicine 11/26/23 documented as of this encounter
--- OUTSIDE RECORDS SUMMARY | 2025-06-16 10:14 | XMS_ITS | Clinical Summary ---
Author Organization silkfred tem Address [id number] [address] [place] [address] Care Team Providers Care Supervisor Scouring Pads Name Role Phone Carlie Pepper Wheeler APRN-[employer] DEPUTY SHERIFF Primary Care Provider Allergies No known active [...] Active albuterol (PROVENTIL HFA;VENTOLIN HFA) 90 mcg/actuation inhalerIndicatio [...] (eight) hours as needed for pain. Active calamine-zinc oxide 8-8 % lotion Apply 1 Application topically as needed for itching. 120 mL 5 Active Active Problems Problem Noted Date Diagnosed Date Chronic deep vein thrombosis (DVT) of left thigh 04/01/2025 Assessment & Plan (04/29/2025 8:56 AM EDT): Compression therapy. Leg elevation and exercise Chronic deep vein thrombosis (DVT) of popliteal vein of left lower extremity 04/01/2025 Assessment & Plan (04/01/2025 10:43 AM EDT): Compression therapy venous reflux ultrasound. Calamine cream to the skin. 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 Compression stockings. Assessment & Plan (04/01/2025 10:43 AM EDT): Compression therapy leg elevation exercise. Calamine cream. We will get venous reflux ultrasound. Pulmonary hypertension 08/02/2022 Mild persistent asthma without complication 07/24 Pulmonary infiltrate 08/02/2022 Hypertension 05/10/2022 LV dysfunction 05/10/2022 Syncope and collapse 12/15/2021 Encounters Date Type Department Care Team Description 04/29/2025 8:50 AM EDT Office Visit [facility] [place] [address] [place] [address] Robert Kmuar MD 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 ([facility]) (Primary Dx); Chronic deep vein thrombosis (DVT) of left thigh ([facility]) 04/29/2025 Travel 04/20/2025 8:34 AM EDT - 04/20/2025 11:59 PM EDT Hospital Encounter [facility] - [facility]ascular [address] [place] [address] Robert Kumar MD Chronic venous insufficiency Discharge Disposition: Home 04/20/2025 Travel 04/01/2025 10:00 AM EDT Office Visit [facility] [address] [place] [address] Robert Kumar MD Chronic venous insufficiency (Primary Dx); Chronic deep vein thrombosis (DVT) of popliteal vein of left lower extremity ([facility]); 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 ([facility]) 04/01/2025 Travel from Last 3 Months Family [...] Sign Reading Time Taken Comments Blood Pressure 164/108 04/29/2025 8:46 AM EDT Pulse 97 04/29/2025 8:46 AM EDT Temperature 36.3 C (97.3 F) 05/27/2024 10:35 AM EDT Respiratory Rate 11 05/27/2024 11:20 AM EDT Oxygen Saturation 91% 04/29/2025 8:46 AM EDT Inhaled Oxygen Concentration - - Weight 120.2 kg (265 lb) 04/29/2025 8:46 AM EDT Height 175.3 cm (5' 9 ) 04/29/2025 8:46 AM EDT Body Mass Index 39.13 04/29/2025 8:46 AM EDT Plan of Treatment Health Maintenance Due Date Last Done Comments Depression Screening 1979 Adult BMI Follow Up Plan 1985 DTaP,Tdap and Td Vaccines (1 - Tdap) 1986 Zoster (Shingles) Vaccine (1 of 2) 2017 Influenza Vaccine 05/24/2025 Tobacco Screening 05/27/2025 05/27/2024 Adult BMI Screening 04/29/2026 04/29/2025 Medical Devices Not on file Procedures Procedure Name Priority Date/Time Associated Diagnosis Comments VASC VENOUS DUPLEX INSUFFICIENCY LOWER LEFT Routine 04/20/2025 9:35 AM EDT Chronic venous insufficiency from Last 3 Months Results * Vas venous duplex insufficiency lwr lt (04/20/2025 9:35 AM EDT) Anatomical Region Laterality Modality Vascular Left Ultrasound 04/20/2025 11:2 7 AM EDT Narrative 04/20/2025 9:38 PM EDT Right: Common femoral vein is compressible with spontaneous phasic spectral Doppler waveforms. Left: Non-Dilated partially compressible popliteal vein with hyperechoic intraluminal content and spontaneous phasic spectral Doppler signals. Minimally Dilated noncompressible small superficial saphenous vein in the distal calf with mixed echogenic intraluminal content without color flow. Remaining visualized deep venous segments are compressible with spontaneous phasic spectral Doppler waveforms. Remaining superficial veins are compressible. Saphenopopliteal junction noted. Venous reflux time >1000 ms is noted in the femoral and popliteal vein. Great saphenous vein noted with reflux <500 ms. Saphenopopliteal junction and multilevel small saphenous vein was noted with reflux time >500 ms. Director Internal Communications vein with 2611 ms reflux time and 5.8 mm diameter noted in the mid medial calf. General: This examination was performed in the upright position. Conclusions: RIGHT: No evidence of deep vein thrombosis (DVT) of the common femoral vein. LEFT: Chronic post thrombotic popliteal venous disease. Chronic post thrombotic disease of the superficial small saphenous vein.Femoropopliteal deep vein reflux. Saphenopopliteal junction, small saphenous, superficial vein reflux. Director Internal Communications vein reflux. Procedure Note Lolly Jackson, DO - 04/20/2025 Right: Common femoral vein is compressible with spontaneous phasicspectral Doppler waveforms. Left: Non-Dilated partially compressible popliteal vein with hyperechoicintraluminal content and spontaneous phasic spectral Doppler signals.Minimally Dilated noncompressible small superficial saphenous vein in thedistal calf with mixed echogenic intraluminal content without color flow. Remaining visualized deep venoussegments are compressible with spontaneous phasic spectral Dopplerwaveforms. Remaining superficial veins are compressible. Saphenopoplitealjunction noted. Venous reflux time >1000 ms is noted in the femoral and popliteal vein. Great saphenous veinnoted with reflux <500 ms. Saphenopopliteal junction and multilevel smallsaphenous vein was noted with reflux time >500 ms. Director Internal Communications vein [id number] ms reflux time and 5.8 mm diameter noted in the mid medial calf. General: This examination was performed in the upright position. Conclusions: RIGHT: No evidence of deep vein thrombosis (DVT) of thecommon femoral vein. LEFT: Chronic post thrombotic popliteal venousdisease. Chronic post thrombotic disease of the superficial smallsaphenous vein.Femoropopliteal deep vein reflux. Saphenopopliteal junction, small saphenous, superficial veinreflux. Director Internal Communications vein reflux. Robert Kumar MD CV VASCULAR ORDERABLES Final Result from Last 3 Months Insurance Advance Directives * Full Code (Latest Code Status on File) Date Activated Date Inactivated Comments 12/16/2021 11:22 AM 12/16/2021 5:00 PM Care Teams Supervisor Scouring Pads Relationship Specialty Start Date End Date Pepper Sexton, DIRECTOR OF MATERIALS MANAGEMENT-GRAND JURY DEPUTY SHERIFF PCP - General Nurse Practitioner 05/10/22
--- OUTSIDE RECORDS SUMMARY | 2025-06-16 10:15 | XMS_ITS | Encounter Summary ---
Author Organization [facility] Address [address] [place] [address] Care Team Providers Care Help Desk Technician Name Role Phone Anastacoi Hinojosa MD Primary Care Provider [phone] Pepper Sexton BIOINFORMATICS TEAM MEMBER Unavailable [phone] Pepper Sexton BIOINFORMATICS TEAM MEMBER Unavailable [phone] Encounter Details Date Type Department Care Team (Late st Contact Info) Description 03/02/2024 Orders Only [facility] [address] [place] [address] Pepper Sexton NP [address] [facility] [place] [address] Social History Tobacco Use Types Packs/Day Years [...] often do you attend chur ch or confucianist services? Never 11/25/2023 Do you belong to [...] Recorded Patient Health Questionnaire-2 Score 0 11/26/2023 [facility] of Occupat ional Health - Occupational [...] on filedocumented in this encounter Care Teams Help Desk Technician Relationship Specialty Start Date End Date Anastacio Hinojosa MD PCP - General Family Medicine 11/26/23 Pepper Sexton NP [address] [place] [address] PCP - [place] [employer] 04/23/24 Pepper Sexton NP Nurse Practitioner Family Medicine 11/26/23 documented as of this encounter
--- OUTSIDE RECORDS SUMMARY | 2025-06-16 10:15 | XMS_ITS | Patient Health Record ---
Author Organization [facility] in [place] Address [address] [place] [address] Care Team Providers Care Supervisor Dry Cell Assembly Name Role Phone Pepper Sexton CNP Primary Care Provider Unavail able Allergies No Known Allergies Results Component Value Reference Range Notes US renal bladder Reviewed date:02/08/2025 12:45:10 PM Interpretation: Performing Lab: Notes/Report: Source Facility: [place] [address] Ultrasound Report Signed Patient: ABRAM GUILLAUME MR#: [id number] : 1965 Acct:[id number] Age/Sex: 59 / M ADM Date: 02/07/25 Loc: [place] 220-[address]: Edis Conte M.D. Ordering Physician: Edis Conte M.D. Date of Service: 02/08/25 Procedure(s): US renal bladder Accession Number(s): [id number] cc: Pepper Sexton RESPIRATORY PHYSICIAN; Edis Conte M.D. [place] [address] Patient Name: ABRAM GUILLAUME MRN: [id number] date: 1965 Sex: M Assigned Patient Location: [place] Current Patient Location: [place] Accession/Order Number: [id number] Exam Date: 02/08/2025 11:53 Report Date: 02/08/2025 [...] to an estimated volume of 36 .mL US/ renal bladder IMPRESSION: No hydronephrosis or mass. Impression dictated by: Pito Wong M.D. 02/08/2025 11:55 AM Dictation Location: [place] [address] Electronically authenticated by: [id number] Y Date: 02/08/2025 11:55 Dictated By: Pito Wong M.D. Signed By: 02/08/25 1157 DD/ 1155 TD/TT: Tailer Out: CRP Reviewed date:02/09/2025 08:43:40 PM Interpretation: Performing Lab: Notes/Report: [facility] , C Reactive Protein 14.75 <=0.50 mg/dL Performing Lab: see note ML - [facility] MAGNESIUM Reviewed date:02/09/2025 08:43:40 PM Interpretation: Performing Lab: Notes/Report: [facility] , Magnesium 1.1 1.8-2.4 mg/dL Performing Lab: see note ML - [facility] Occult Blood* Reviewed date:02/09/2025 08:43:40 PM Interpretation: Performing Lab: Notes/Report: [facility] , Occult Blood Negative Performing Lab: see note - [facility] MAGNESIUM Reviewed date:02/09/2025 08:43:40 PM Interpretation: Performing Lab: Notes/Report: [facility] , Magnesium 1.0 1.8-2.4 mg/dL Performing Lab: see note - [facility] LB MAGNESIUM Reviewed date:02/09/2025 08:43:40 PM Interpretation: Performing Lab: Notes/Report: [facility] , Magnesium 2.1 1.8-2.4 mg/dL Performing Lab: see note ML - The [facility] LB CRP Reviewed date:02/10/2025 09:13:46 AM Interpretation: Performing Lab: Notes/Report: [facility] , C Reactive Protein 13.87 <=0.50 mg/dL Performing Lab: see note ML - [facility] LB MAGNESIUM Reviewed date:02/10/2025 09:13:46 AM Interpretation: Performing Lab: Notes/Report: [facility] , Magnesium 1.6 1.8-2.4 mg/dL Performing Lab: see note ML - [facility] LB US extremity nonvascular LT Reviewed date:02/10/2025 01:35:41 PM Interpretation: Performing Lab: Notes/Report: Source Facility: [place] [address] [place] [address] Ultrasound Report Signed Patient: ABRAM GUILLAUME MR#: [id number] : 1965 Acct:[id number] Age/Sex: 59 / M ADM Date: 02/07/25 Loc: [place] 220-[address]: Edis Conte M.D. Ordering Physician: Edis Conte M.D. Date of Service: 02/10/25 Procedure(s): US extremity nonvascular LT Accession Number(s): [id number] cc: Pepper Sexton NP; Edis Conte M.D. [place] [address] Patient Name: ABRAM GUILLAUME MRN: [id number] date: 1965 Sex: M Assigned Patient Location: MS Current Patient Location: MS Accession/Order Number: [id number] Exam Date: 02/10/2025 11:13 Report Date: 02/10/2025 [...] Duarte M.D. 02/10/2025 11:20 AM Dictation Location: [place] [address] Electronically authenticated by: [id number] Y Date: 02/10/2025 11:20 Dictated By: Ivette Duarte M.D. Signed By: 02/10/25 1122 DD/ 1120 TD/TT: Tailer Out: CT lower leg LT wo/w con Reviewed date:02/10/2025 01:35:41 PM Interpretation: Performing Lab: Notes/Report: Source Facility: [place] [address] CT Scan Report Signed Patient: ABRAM GUILLAUME MR#: [id number] : 1965 Acct:[id number] Age/Sex: 59 / M ADM Date: 02/07/25 Loc: MS 220-[address]: Edis Conte M.D. Ordering Physician: Edis Conte M.D. Date of Service: 02/10/25 Procedure(s): CT lower leg LT wo/w con Accession Number(s): [id number] cc: Pepper Sexton NP [place] [address] Patient Name: ABRAM GUILLAUME MRN: [id number] date: 1965 Sex: M Assigned Patient Location: MS Current Patient Location: MS Accession/Order Number: [id number] Exam Date: 02/10/2025 09:18 Report Date: 02/10/2025 [...] is subcutaneous edema and fluid throughout the tyzpl-mr-lsgy, greater anteriorly toward the knee. This is [...] Duarte M.D. 02/10/2025 9:38 AM Dictation Location: [place] [address] Electronically authenticated by: [id number] Y Date: 02/10/2025 09:38 Dictated By: Ivette Duarte M.D. Signed By: 02/10/25939 DD/ 7 TD/TT: Tailer Out: ERNIE Reviewed date:02/11/2025 08:38:04 PM Interpretation: Performing Lab: Notes/Report: [facility] , C Reactive Protein 12.79 <=0.50 mg/dL Performing Lab: see note ML - [facility] LB MAGNESIUM Reviewed date:02/11/2025 08:38:04 PM Interpretation: Performing Lab: Notes/Report: [facility] , Magnesium 1.7 1.8-2.4 mg/dL Performing Lab: see note ML - [facility] LB Reason For Referral No Information Medications Medication SIG (Take, Route, Frequency, Duration) Notes Start Date End Date Status Magnesium 400 MG as directed Orally 500mg Active Levothyroxine Sodium 100 MCG 1 tablet in the morning on an empty stomach Orally Once a day; Duration: 30 day(s) Active Naltrexone 380 MG as directed Intramuscular 4.5 Active Montelukast Sodium 10 MG 1 tablet Orally Once a day Active Valsartan 320 MG as directed Orally Active Omeprazole 40 MG 1 capsule 30 minutes before morning meal Orally Once a day; Duration: 30 day(s) Active Albuterol Sulfate HFA 108 (90 Base) MCG/ACT 2 puffs as needed Inhalation every 4 hrs Active Doxepin HCl 10 MG 1 capsule at bedtime Orally Once a day; Duration: 30 day(s) Active amLODIPine Besylate 10 MG 1 tablet Orall y Once a day; Duration: 30 day(s) Active Gabapentin 600 MG 1 tablet Orally Once a day; Duration: 30 day(s) Active Social History Tobacco Use: Social History Observation Description Date Details (start date - stop date) Never Smoker NA - NA Tobacco Use/Smoking Question Answer Notes Patient is a nonsmoker Problems Problem Type SNOMED Code ICD Code Onset Dates Problem Status W/U Status Risk Notes Problem Hypomagnesemia (303453693) Hypomagnesemia (E83.42) Active confirmed Problem Uncomplicated asthma (disorder) (665891072) Unspecified asthma, uncomplicated (J45.909) Active confirmed Problem Hypertension (26240017) HTN (hypertension) (I10) Active confirmed Plan Of Treatment No Information Insurance Providers Payer Name Payer Address Payer Phone Subscriber Number Group Number Insured Name Patient Relationship to Insured Coverage Start Date Coverage End Date [employer] PPO PLUS LOCAL PLAN [address] [place] [phone] [id number] Abram Guillaume Self - patient is the [...]
--- OUTSIDE RECORDS SUMMARY | 2025-06-16 10:15 | XMS_ITS | Encounter Summary ---
Author Organization [facility] Address [address] [place] [address] Care Team Providers Care Ambulatory Nurse Name Role Phone Anastacio Hinojosa MD Primary Care Provider [phone] Pepper Sexton DIRECTOR [employer]ELOPMENT Unavailable [phone] Pepper Sexton DIRECTOR [employer]ELOPMENT Unavailable [phone] Encounter Details Date Type Department Care Team (Late st Contact Info) Description 02/25/2024 Orders Only [facility] [address] [place] [address] Pepper Sexton NP [address] [place] [address] Social History Tobacco Use Types Packs/Day Years [...] any clubs o r organizations such as restorationism groups, unions, fraternal or athletic groups, or [...] Recorded Patient Health Questionnaire-2 Score 0 11/26/2023 [facility] - Occupational Stress [...] LABS (02/25/2024 9:03 AM EDT) Pepper Sexton DIRECTOR [employer] DEVELOPMENT LAB CHG PERFORMABLES Final Resu lt * - Miscellaneous Test (02/24/2024 9:38 AM EDT) us Pepper Sexton DIRECTOR [employer]ELOPMENT LAB BLOOD ORDERABLES Final Resu lt documented in this encounter Visit Diagnoses Not on filedocumented in this encounter Care Teams Ambulatory Nurse Relationship Specialty Start Date End Date Anastacio Hinojosa MD PCP - General Family Medicine 11/26/23 Pepper Sexton NP [address] [place] [address] PCP - [employer] 04/23/24 Pepper Sexton NP Nurse Practitioner Family Medicine 11/26/23 documented as of this encounter
--- OUTSIDE RECORDS SUMMARY | 2025-06-16 10:17 | XMS_ITS | CCD ---
Author Organization [facility] Care Team Providers Care Shredded Filler Hopper Feeder Name Role Phone AICHHOLZ, AIR TRAFFIC COORDINATOR PEPPER Primary Care Unavailable AICHHOLZ, AIR TRAFFIC COORDINATOR PEPPER Consulting Unavailable AICHHOLZ, AIR TRAFFIC COORDINATOR PEPPER Attending Unavailable AICHHOLZ, AIR TRAFFIC COORDINATOR PEPPER Admitting Unavailable AICHHOLZ, AIR TRAFFIC COORDINATOR PEPPER Consulting Unavailable AICHHOLZ, AIR TRAFFIC COORDINATOR PEPPER Attending Unavailable AICHHOLZ, AIR TRAFFIC COORDINATOR PEPPER Admitting Unavailable AICHHOLZ, AIR TRAFFIC COORDINATOR PEPPER Primary Care Unavailable AICHHOLZ, AIR TRAFFIC COORDINATOR PEPPER Primary Care Unavailable DR CRIS GAN V Consulting Unavailable AICHHOLZ, AIR TRAFFIC COORDINATOR PEPPER Attending Unavailable AICHHOLZ, AIR TRAFFIC COORDINATOR PEPPER Admitting Unavailable AICHHOLZ, AIR TRAFFIC COORDINATOR PEPPER Consulting Unavailable AICHHOLZ, AIR TRAFFIC COORDINATOR PEPPER Primary Care Unavailable AICHHOLZ, AIR TRAFFIC COORDINATOR PEPPER Consulting Unavailable AICHHOLZ, AIR TRAFFIC COORDINATOR PEPPER Attending Unavailable AICHHOLZ, AIR TRAFFIC COORDINATOR PEPPER Admitting Unavailable AICHHOLZ, AIR TRAFFIC COORDINATOR PEPPER Primary Care Unavailable AICHHOLZ, AIR TRAFFIC COORDINATOR PEPPER Consulting Unavailable AICHHOLZ, AIR TRAFFIC COORDINATOR PEPPER Attending Unavailable AICHHOLZ, AIR TRAFFIC COORDINATOR PEPPER Admitting Unavailable Anastacio Hinojosa MD Primary Care Provider Aichholz DEFLASH AND WASH OPERATOR, Pepper Unavailable Aichholz DEFLASH AND WASH OPERATOR, Pepper Unavailable Carlie Pepper J Primary Care Provider MD [place] Imrosalie Attending Provider Pepper Sexton Primary Care Provider James Elaine MD Attending Provider [phone] Pepper Sexton Primary Care Unavailable Asaad, Imad Attending Unavailable Asaad, Imad Admitting Unavailable Asaad, Imad Admitting Unavailable Aichholz, Pepper J Primary Care Unavailable James Elaine Attending Unavailable Aichholeulalio WATTS Pepper J Primary Care Provider Pepper Sexton Primary Care Provider James Elaine MD Attending Provider Pepper Hoffmann Primary Care Provider Pepper Sexton Primary Care Provider Tang Hamilton MD Attending Provider AICHHOLEulalio, PEPPER J Referring Unavailable AICHHOLZ, PEPPER J [...] Primary Care Unavailable ROBERT KUMAR Attending Unavailable JAVIERHHOLZ, PEPPER J Referring Unavailable AICHHOLZ, PEPPER J Primary Care Unavailable AICHHOLZ, PEPPER Attending Unavailable AICHHOLZ, PEPPER Attending Unavailable AICHHOLZ, PEPPER Attending Unavailable AICHHOLZ, PEPPER Attending Unavailable AICHHOLZ, PEPPER Attending Unavailable BLANK MCFARLANE Attending Unavailable RUPERT BO Attending Unavailable JAVIERHHOLZ, PEPPER Attending Unavailable JAVIERHHOLZ, PEPPER Attending Unavailable Medications Current Medications Medication Drug Class(es) Dates Sig (Normalized) Sig (Original) 8 hr acetaminophen 650 mg extended release oral tablet (11 sources) take 1 tablet by mouth every eight hours as needed acetaminophen (Tylenol 8 Hour) 650 MG ER tablet Take 650 mg by mouth every 8 (eight) hours if needed Active acetaminophen 325 mg / HYDROcodone bitartrate 5 mg oral tablet (1 source) Opioid Agonist Start: 05-26-2024 End: 05-29-2024 take 1 tablet by mouth every six hours for pain HYDROcodone-acetami nophen ([place]) 5-325 MG tablet Indications: Post-operative pain Take 1 tablet by mouth every 6 (six) hours if needed for severe pain for up to 3 days 12 tablet 05/26/2024 05/29/2024 Active [id number] 200 actuat albuterol 0.09 mg/actuat metered dose [...] mg / clavulanate 125 mg oral tablet (3 sources) Penicillin-class Antibacterial Start: 05-06-2025 End: 05-16-2025 take 1 tablet by mouth in the morning amoxicillin-clavul anate (Augmentin) 875-125 MG tablet Indications: COPD with acute exacerbation (HCC) Take 1 tablet (875 mg) by mouth in the morning and 1 tablet (875 mg) before bedtime. Do all this for 10 days. 20 tablet 05/06/2025 05/16/2025 Active apixaban 5 mg oral tablet (19 sources) Factor Xa Inhibitor Start: 02-12-2025 take [...] / zinc oxide 80 mg/ml topical lotion (5 sources) Start: 04-29-2025 Calamine-Zinc Oxide 8-8 % [...] Active Start: 03-19-2024 take 1 capsule by [facility] once daily at bedtime Doxepin 100 [...] 08/04/2025 Active take 1 capsule by mo uth [...] with drug therapy take 4 tablets by mo [facility] in the morning levothyroxine (SYNTHROID, LEVOTHROID) 25 [...] mouth in the morning. 03/29/2022 Active methylPREDNISolone (3 sources) Corticosteroid Start: 05-06-2025 End: 05-13-2025 methylPREDNISolone [...] Chronic Chronic obstructive pulmonary disease and bronchiectasis (10 sources) Bronchitis; Translations: [Bronchitis, not specified as [...] 2 03-19-2024 Chronic Fluid and electrolyte disorders (16 sources) Hypokalemia; Translations: [Disorder of electrolytes] Onset: 2 Episodic Gout and other crystal arthropathies (12 sources) Gouty arthritis of left hand; Translations: [...] Onset: 5 Varicose veins of lower extremity (16 sources) Varicose veins of unspecified lower extremity [...] Value Interpretation Reference Range Facility ALL MAGNESIUMon 05-06-2025 Interpretation and review of laboratory results Abnormal [facility] Magnesium [Mass/Vol] 0.7 mg/dL Critically low 1.8 - 2.4 mg/dL [facility] Comment on above: RESULTS CALLED TO [facility] ALL MAGNESIUMon 04-14-2025 Interpretation and review of laboratory results Abnormal [facility] Magnesium [Mass/Vol] 1.3 mg/dL Low 1.8 - 2 .4 mg/dL [facility] ALL URIC ACIDon 04-13-2025 Urate [Mass/Vol] 7.2 mg/dL 3.5 - 7.2 mg/dL [facility] ALL BASIC METABOLIC PANELon 03-31-2025 Anion gap [Moles/Vol] 13.7 mmol/L [facility] Calcium [Mass/Vol] 7.9 mg/dL Low 8.5 - 10. 1 mg/dL [facility] Chloride [Moles/Vol] 107 mmol/L 98 - 10 7 mmol/L [facility] CO2 [Moles/Vol] 28.8 mmol/L 21.0 - 32.0 mmol/L [facility] Creatinine [Mass/Vol] 1.04 mg/dL 0.70 - 1.30 mg/dL [facility] GFR/1.73 sq M.predicted CKD-EPI (S/P/Bld) [Vol rate/Area] >60 >=60 mL/min/1.73m 2 [facility] Glucose [Mass/Vol] 130 mg/dL High 74 - 106 mg/dL [facility] Interpretation and review of laboratory results Abnormal [facility] Potassium [Moles/Vol] 3.5 mmol/L 3.5 - 5.1 mmol/L [facility] Sodium [Moles/Vol] 146 mmol/L High 136 - 145 mmol/L [facility] EGFR-NON AF GIBRALTARIAN >60 >=60 mL/min/1.73m 2 [facility] Urea nitrogen [Mass/Vol] 15 mg/dL 7.0 - 18.0 mg/dL [facility] Urea nitrogen/Creatinine [Mass ratio] 14.4 mg/mg [facility] ALL CBC WITH AUTO DIFFon BASOPHILS ABSOLUTE AUTO 0.1 [facility] Basophils/100 WBC (Bld) 0.7 % 0.2 - 2.0 % [facility] Eosinophils/100 WBC (Bld) 9.5 % High 0.9 - 7.0 % [facility] Erythrocyte distribution width (RBC) [Ratio] 15 % 11.0 - 15.0 % [facility] Hematocrit (Bld) [Volume fraction] 38.3 % Low 42.0 - 54.0 % [facility] Hemoglobin (Bld) [Mass/Vol] 12.5 g/dL Low 14.0 - 18.0 g/dL [facility] IMMATURE GRANULOCYTES ABS AUTO 0.03 [facility] Immature granulocytes/100 WBC (Bld) 0.3 % 0.0 - 0.5 % [facility] Interpretation and review of laboratory results Abnormal [facility] LYMPHOCYTES ABSOLUTE AUTO 1.9 [facility] Lymphocytes/100 WBC (Bld) 20.4 % Low 20.5 - 60.0 % [facility] MCH (RBC) [Entitic mass] 31.8 pg 25.9 - 34.0 pg [facility] MCHC (RBC) [Mass/Vol] 32.6 g/dL 29.9 - 35.2 g/dL [facility] MCV (RBC) [Entitic vol] 97.5 fL High 80.0 - 94.0 fL [facility] MONOCYTES ABSOLUTE AUTO 0.5 [facility] Monocytes/100 WBC (Bld) 5.2 % 1.7 - 12.0 % [facility] NEUTROPHILS ABSOLUTE AUTO 5.8 [facility] Neutrophils/100 WBC (Bld) 63.9 % 43.0 - 75.0 % [facility] Platelet mean volume (Bld) [Entitic vol] 9.8 fL 9.5 - 13.5 fL [facility] EO # 0.9 High [facility] PLT 277 [facility] RBC 3.93 Low [facility] WBC 9.1 [facility] Laboratory - Chemistry and C hemistry - challengeOrdered By: Tang Hamilton on 03-17-2025 Magnesium [Mass/Vol] 0.2 mg/dL Critically low 1.8-2.4 [facility] Comment on above: RESULTS CALLED TO TO DERRELL SOUSA Panel InformationOrdered By: Tang Hamilton on 03-17-2025 Phosphorus Level 2.7 mg/dL 2.6-4.7 [facility] ALL CBC WITH AUTO DIFFon BASOPHILS ABSOLUTE AUTO 0.1 [facility] Basophils/100 WBC (Bld) 0.8 % 0.2 - 2.0 % [facility] Eosinophils/100 WBC (Bld) 6.2 % 0.9 - 7.0 % [facility] Erythrocyte distribution width (RBC) [Ratio] 13.7 % 11.0 - 15.0 % [facility] Hematocrit (Bld) [Volume fraction] 42 % 42.0 - 54.0 % [facility] Hemoglobin (Bld) [Mass/Vol] 13.6 g/dL Low 14.0 - 18.0 g/dL [facility] IMMATURE GRANULOCYTES ABS AUTO 0.03 [facility] Immature granulocytes/100 WBC (Bld) 0.3 % 0.0 - 0.5 % [facility] Interpretation and review of laboratory results Abnormal [facility] LYMPHOCYTES ABSOLUTE AUTO 1.8 [facility] Lymphocytes/100 WBC (Bld) 21 % 20.5 - 60.0 % [facility] MCH (RBC) [Entitic mass] 31.1 pg 25.9 - 34.0 pg [facility] MCHC (RBC) [Mass/Vol] 32.4 g/dL 29.9 - 35.2 g/dL [facility] MCV (RBC) [Entitic vol] 95.9 fL High 80.0 - 94.0 fL [facility] MONOCYTES ABSOLUTE AUTO 0.5 [facility] Monocytes/100 WBC (Bld) 6.1 % 1.7 - 12.0 % [facility] NEUTROPHILS ABSOLUTE AUTO 5.8 [facility] Neutrophils/100 WBC (Bld) 65.6 % 43.0 - 75.0 % [facility] Platelet mean volume (Bld) [Entitic vol] 9.6 fL 9.5 - 13.5 fL [facility] EO # 0.5 [facility] PLT 306 [facility] RBC 4.38 Low [facility] WBC 8.8 [facility] ALL MAGNESIUMon 11-24-2024 Interpretation and review of laboratory results Abnormal [facility] Magnesium [Mass/Vol] 1.1 mg/dL Low 1.8 - 2 .4 mg/dL [facility] Laboratory - Chemistry and C hemistry - challengeon 11-24-2024 Magnesium [Mass/Vol] 1.1 mg/dL Low 1.8-2.4 [facility] ALL MAGNESIUMon 11-05-2024 Interpretation and review of laboratory results Abnormal [facility] Magnesium [Mass/Vol] 0.7 mg/dL Critically low 1.8 - 2.4 mg/dL [facility] Comment on above: RESULTS CALLED TO EZEQUIEL BOOTH MA AT OFFICE BY Violeta Gold at 1056 [facility] ALL MAGNESIUMon 10-07-2024 Interpretation and review of laboratory results Abnormal [facility] Magnesium [Mass/Vol] 0.8 mg/dL Critically low 1.8 - 2.4 mg/dL [facility] Comment on above: RESULTS CALLED TO [facility] THYROID STIM HORMONEon 0 10-07-2024 TSH Qn 2.054 m[IU]/L [facility] HbA1c (Bld) [Mass fraction]o n 10-07-2024 Interpretation and review of laboratory results Normal [facility] - Hematology and Cell countson 10-07-2024 HbA1c (Bld) [Mass fraction] 5.60 % [facility] No Panel Informationon 10-07 [facility] Amphetamine Screen Ql (U)Ord ered By: Imrosalie Elaine on 10-06-2024 Amphetamines Ql (U) Amphetamines screen Negativ e [facility] Barbiturates [Presence] in U rine by Screen methodOrdered By: Imrosalie Asarosalie on 10-06-2024 Barbiturates Screen Ql (U) Barbiturates [Presence] in Urine by Screen method Negative [facility] Benzodiazepines Screen Ql (U )Ordered By: Imrosalie Elaine on 10-06-2024 Benzodiazepines Ql (U) Benzodiazepines [Presence] in Urine by Screen method Negative [facility] Benzoylecgonine [Presence] i n Urine by Screen methodOrdered By: James Elaine on 10-06-2024 Benzoylecgonine Screen Ql (U) Benzoylecgonine [Presence] in Urine by Screen method Negative [facility] Cannabinoids [Presence] in U rine by Screen methodOrdered By: James Elaine on 10-06-2024 Cannabinoids Screen Ql (U) Cannabinoids [Presence] in Urine by Screen method High Negative [facility] Comment on above: These are unconfirme d results and should not be used for legal purposes. Drug Cut-Off Concentration: AMPH 1000 ng/mL MAX 200 ng/mL JUHI 200 ng/mL COCM 300 ng/mL OP 300 ng/mL PCP 25 ng/mL THC 20 ng/mL Drug Screen,Urineon 10-06-19 Amphetamine Screen,Urine Negative Normal Negative [facility] Comment on above: Performed By: #### U RDS #### [address] Barbiturate Screen,Urine Negative Normal Negative [facility] Comment on above: Performed By: #### U RDS #### [place] [address] [place] Benzodiazepines Screen,Urine Negative Normal Negative [facility] Comment on above: Performed By: #### U RDS #### [place] [address] [place] Cannabinoid Screen,Urine Positive High Negative [facility] Comment on above: Result Comment: Thes e are unconfirmed results and should not be used for legal purposes. Drug Cut-Off Concentration: AMPH 1000 ng/mL MAX 200 ng/mL JUHI 200 ng/mL COCM 300 ng/mL OP 300 ng/mL PCP 25 ng/mL THC 20 ng/mL PERFORMED BY: [place] [address] PATHOLOGIST DIRECTOR ORANGE ROBERT GRIMES M.D. Performed By: #### U RDS #### [place] [address] [place] Cocaine Screen,Urine Negative Normal Negative [facility] Comment on above: Performed By: #### U RDS #### [facility] [address] Opiate Screen,Urine Negative Normal Negative [facility] Comment on above: Performed By: #### U RDS #### [facility] [address] [place] [id number] [facility] Phencyclidine Screen,Urine Negative Normal Negative [facility] Comment on above: Performed By: #### U RDS #### [facility] [address] [place] [id number] [facility] Luciano 10-06-2024 L Specimen: [id number] Received: 10/06/24 Status: SAHIL Joseph Num: [id number] Spec Type: Surgical Subm Dr: James Elaine MD Tissues: A Esophagus Biopsy (ESOPHAGUS BX R/O BARRETTS) Procedures: HE/Colette, Gross/Micro L4 Age/ Patient Sex Location Account Attending Physician Abram Guillaume/Last [id number] James Elaine MD SPEC NUM: [id number] RECD: 10/06/24 STATUS: SARAAdalberto REAarti NUM: [id number] PHILLIP: 10/06/24 [facility] DR: James Elaine MD ENTERED: 10/06/24 [facility] DR: SPEC TYPE: Surgical DEPT: S ENTERED BY: [id number] RECV BY: [id number] ORDERED: HE/2, Gross/Micro L4 ORDERED: HE/2, Gross/Micro [...] is performed. Specimen: [id number] Received: 10/06/24 Status: SARAAdalberto Reaarti Num: [id number] Spec Type: Surgical Subm Dr: James Elaine MD Tissues: A Esophagus Biopsy (ESOPHAGUS BX R/O BARRETTS) Procedures: HE/2, Gross/Micro L4 Patient: Abram Guillaume [id number] (Continued) Specimen: [id number] Received: 10/06/24 (Continued) Signed (signature on file) Sandro Baird MD 10/07/24 1009 Specimen: [id number] Received: 10/06/24 Status: SAHIL Ruiz Num: [id number] Spec Type: Surgical Subm Dr: James Elaine MD Tissues: A Esophagus Biopsy (ESOPHAGUS BX R/O BARRETTS) Procedures: HE/2, Gross/Micro L4 Patient: Abram Guillaume [id number] (Continued) Specimen: S2 Received: 10/06/24 (Continued) CPT Codes 81592 Specimen: Received: 10/06/24 Status: SAHIL Joseph Num: [id number] Spec Type: Surgical Subm Dr: James Elaine MD Tissues: A Esophagus Biopsy (ESOPHAGUS BX R/O BARRETTS) Procedures: HE/2, Gross/Micro L4 Patient: Abram Guillaume [id number] (Continued) Signed (signature on file) Sandro Baird MD 10/07/24 1009 Normal [facility] Opiates [Presence] in Urine by Screen methodOrdered By: rosalie Holbrook on 10-06-2024 Opiates Screen Ql (U) Opiates [Presence] in Urine by Screen method Negative [facility] Phencyclidine Screen Ql (U)O rdered By: rosalie Elaine on 10-06-2024 Phencyclidine Ql (U) Phencyclidine [Presence] in Urine by Screen method Negative [facility] ALL BASIC METABOLIC PANELon 09-28-2024 Anion gap [Moles/Vol] 14.1 mmol/L [facility] Calcium [Mass/Vol] 8.3 mg/dL Low 8.5 - 10. 1 mg/dL [facility] Chloride [Moles/Vol] 104 mmol/L 98 - 10 7 mmol/L [facility] CO2 [Moles/Vol] 28.4 mmol/L 21.0 - 32.0 mmol/L [facility] Creatinine [Mass/Vol] 1.61 mg/dL High 0.70 - 1.30 mg/dL [facility] GFR/1.73 sq M.predicted CKD-EPI (S/P/Bld) [Vol rate/Area] 54 Low >=60 mL/min/1.73m 2 [facility] Glucose [Mass/Vol] 137 mg/dL High 74 - 106 mg/dL [facility] Potassium [Moles/Vol] 3.5 mmol/L 3.5 - 5.1 mmol/L [facility] Sodium [Moles/Vol] 143 mmol/L 136 - 145 mmol/L [facility] EGFR-NON AF GIBR[place]ARIAN 45 Low >=60 mL/min/1.73m 2 [facility] Urea nitrogen [Mass/Vol] 17 mg/dL 7.0 - 18.0 mg/dL [facility] Urea nitrogen/Creatinine [Mass ratio] 10.6 mg/mg [facility] ALL MAGNESIUMon 09-28-2024 Magnesium [Mass/Vol] 0.8 mg/dL Critically low 1.8 - 2.4 mg/dL [facility] Comment on above: RESULTS CALLED TO ELIZABETH SEXTON NP No Panel Informationon 09-28 Interpretation and review of laboratory results Abnormal [facility] Amphetamine Screen Ql (U)Ord ered By: rosalie Elaine on 07-09-2024 Amphetamines Ql (U) Amphetamines screen Negativ e [facility] Amphetamines Ql (U) Negative Negative [facility] Barbiturates [Presence] in U rine by Screen methodOrdered By: rosalie Elaine on 07-09-2024 Barbiturates Screen Ql (U) Negative Negative [facility] Barbiturates Screen Ql (U) Barbiturates [Presence] in Urine by Screen method Negative [facility] Benzodiazepines Screen Ql (U )Ordered By: rosalie Elaine on 07-09-2024 Benzodiazepines Ql (U) Negative Negative [facility] Benzodiazepines Ql (U) Benzodiazepines [Presence] in Urine by Screen method Negative [facility] Benzoylecgonine [Presence] i n Urine by Screen methodOrdered By: James Elaine on 07-09-2024 Benzoylecgonine Screen Ql (U) Negative Negative [facility] Benzoylecgonine Screen Ql (U) Benzoylecgonine [Presence] in Urine by Screen method Negative [facility] Cannabinoids [Presence] in U rine by Screen methodOrdered By: rosalie Elaine on 07-09-2024 Cannabinoids Screen Ql (U) Negative Negative [facility] Comment on above: These are unconfirme d results and should not be used for legal purposes. Drug Cut-Off Concentration: AMPH 1000 ng/mL MAX 200 ng/mL JUHI 200 ng/mL COCM 300 ng/mL OP 300 ng/mL PCP 25 ng/mL THC 20 ng/mL Cannabinoids Screen Ql (U) Cannabinoids [Presence] in Urine by Screen method Negative [facility] Comment on above: These are unconfirme d results and should not be used for legal purposes. Drug Cut-Off Concentration: AMPH 1000 ng/mL MAX 200 ng/mL JUHI 200 ng/mL COCM 300 ng/mL OP 300 ng/mL PCP 25 ng/mL THC 20 ng/mL Drug Screen,Urineon 07-09-20 Amphetamine Screen,Urine Negative Normal Negative [facility] Comment on above: Performed By: #### U RDS #### [address] Barbiturate Screen,Urine Negative Normal Negative [facility] Comment on above: Performed By: #### U RDS #### [address] Benzodiazepines Screen,Urine Negative Normal Negative [facility] Comment on above: Performed By: #### U RDS #### [address] Cannabinoid Screen,Urine Negative Normal Negative [facility] Comment on above: Result Comment: Thes e are unconfirmed results and should not be used for legal purposes. Drug Cut-Off Concentration: AMPH 1000 ng/mL MAX 200 ng/mL JUHI 200 ng/mL COCM 300 ng/mL OP 300 ng/mL PCP 25 ng/mL THC 20 ng/mL PERFORMED BY: [place] [address] PATHOLOGIST DIRECTOR ORANGE ZUHAIR KAUR M.D. Performed By: #### U RDS #### [address] Cocaine Screen,Urine Negative Normal Negative [facility] Comment on above: Performed By: #### U RDS #### [place] [address] [place] Opiate Screen,Urine Negative Normal Negative [facility] Comment on above: Performed By: #### U RDS #### [place] [address] [place] Phencyclidine Screen,Urine Negative Normal Negative [facility] Comment on above: Performed By: #### U RDS #### [address] No Panel InformationOrdered By: James Elaine on 07-09-2024 Miscellaneous Pathology Test See comment [facility] Comment on above: See report. Scanned copy available in EMR. Opiates [Presence] in Urine by Screen methodOrdered By: James Elaine on 07-09-2024 Opiates Screen Ql (U) Negative Negative [facility] Opiates Screen Ql (U) Opiates [Presence] in Urine by Screen method Negative [facility] Pathology Request for Lab Co rpon 07-09-2024 Pathology Request for Lab Itzel Normal [facility] Comment on above: Order Comment: PATHO LOGY GI SPECIMEN Result Comment: See report. Scanned copy available in EMR. PERFORMED BY: [place] [address] PATHOLOGIST DIRECTOR ORANGE ZUHAIR KAUR M.D. Performed By: #### P ATH TO [facility] #### [address] Phencyclidine Screen Ql (U)O rdered By: James Elaine on 07-09-2024 Phencyclidine Ql (U) Negative Negative [facility] Phencyclidine Ql (U) Phencyclidine [Presence] in Urine by Screen method Negative [facility] ALL MAGNESIUMon 06-23-2024 Magnesium [Mass/Vol] 1.5 mg/dL Low 1.8 - 2 .4 mg/dL [facility] ALL RENAL FUNCTION PANELon 1 Albumin [Mass/Vol] 3.3 g/dL Low 3.4 - 5.0 g/dL [facility] Anion gap [Moles/Vol] 12.6 mmol/L [facility] Calcium [Mass/Vol] 8.7 mg/dL 8.5 - 10. 1 mg/dL [facility] Chloride [Moles/Vol] 104 mmol/L 98 - 10 7 mmol/L [facility] CO2 [Moles/Vol] 26.1 mmol/L 21.0 - 32.0 mmol/L [facility] Creatinine [Mass/Vol] 1.72 mg/dL High 0.70 - 1.30 mg/dL [facility] GFR/1.73 sq M.predicted CKD-EPI (S/P/Bld) [Vol rate/Area] 50 Low 60 - PINF [facility] Glucose [Mass/Vol] 114 mg/dL High 74 - 106 mg/dL [facility] Phosphate [Mass/Vol] 3.2 mg/dL 2.6 - 4 .7 mg/dL [facility] Potassium [Moles/Vol] 4.7 mmol/L 3.5 - 5.1 mmol/L [facility] Sodium [Moles/Vol] 138 mmol/L 136 - 145 mmol/L [facility] EGFR-NON AF GIBRALTARIAN 41 Low 60 - PINF [facility] Urea nitrogen [Mass/Vol] 30.0 mg/dL High 7.0 - 18.0 mg/dL [facility] Urea nitrogen/Creatinine [Mass ratio] 17.4 mg/mg [facility] ALL URIC ACIDon 06-23-2024 Urate [Mass/Vol] 8.0 mg/dL High 3.5 - 7.2 mg/dL [facility] Estimated glomerular filtrat ion rate (GFR) non- Americanon 06-23-2024 GFR/1.73 sq M.predicted among non-blacks MDRD (S/P/Bld) [Vol rate/Area] 41 mL/min/{1.73_m2} Low >=60 [facility] Laboratory - Chemistry and C hemistry - challengeon 06-23-2024 Albumin [Mass/Vol] 3.3 g/dL Low 3.4-5.0 [facility] Calcium [Mass/Vol] 8.7 mg/dL 8.5-10.1 [facility] Chloride [Moles/Vol] 104 mmol/L 98-107 [facility] CO2 [Moles/Vol] 26.1 mmol/L 21.0-32.0 [facility] Creatinine [Mass/Vol] 1.72 mg/dL High 0.70-1.30 [facility] GFR/1.73 sq M.predicted MDRD (S/P/Bld) [Vol rate/Area] 50 mL/min/{1.73_m2} Low >=60 [facility] Glucose [Mass/Vol] 114 mg/dL High 74-106 [facility] Magnesium [Mass/Vol] 1.5 mg/dL Low 1.8-2.4 [facility] Potassium [Moles/Vol] 4.7 mmol/L 3.5-5.1 [facility] Sodium [Moles/Vol] 138 mmol/L 136-145 [facility] Urate [Mass/Vol] 8.0 mg/dL High 3.5-7.2 [facility] Urea nitrogen [Mass/Vol] 30.0 mg/dL High 7.0-18.0 [facility] Urea nitrogen/Creatinine [Mass ratio] 17.4 mg/mg [facility] - Urinalysison Protein (U) [Mass/Vol] 12.6 mg/dL High <=11.9 [facility] No Panel Informationon 06-23 Urine Random Creatinine 78.13 mg/dL 20.00-300.00 [facility] Interpretation and review of laboratory results Abnormal [facility] Phosphorus Level 3.2 mg/dL 2.6-4.7 [facility] Serum or plasma anion gap de terminationon 06-23-2024 Anion gap [Moles/Vol] 12.6 mmol/L [facility] Urine protein/creatinine rat ioon 06-23-2024 Protein/Creatinine (U) [Ratio] 0.16 [facility] BASIC METABOLIC PANLon 04-27 Anion gap [Moles/Vol] 9 mmol/L Normal 5-15 [facility] Comment on above: Performed By: #### B MP #### [facility] ([id number]) [address], [address] [place] [address] Calcium [Mass/Vol] 9.5 mg/dL Normal 8.5-10.5 [facility] Comment on above: Performed By: #### B MP #### [facility] ([id number]) [address], [address] [place] [address] Chloride [Moles/Vol] 105 mmol/L Normal 98-109 [facility] Comment on above: Performed By: #### B MP #### [facility] ([id number]) [address] [place] [address] CO2 [Moles/Vol] 25 mmol/L Normal 22-32 [facility] Comment on above: Performed By: #### B MP #### [facility] ([id number]) [address] [place] [address] Creatinine [Mass/Vol] 1.60 mg/dL High 0.60-1.30 [facility] Comment on above: Result Comment: METH OD TRACEABLE TO IDMS STANDARD Performed By: #### B MP #### [facility] ([id number]) [address], [address] [place] [address] GFR/1.73 sq M.predicted among non-blacks MDRD (S/P/Bld) [Vol rate/Area] 50 mL/min/{1.73_m2} Low >59 [facility] Comment on above: Result Comment: Reported eGFR is based on the CKD-EPI 2020 equation that does not use a race coefficient. Performed By: #### B MP #### [facility] ([id number]) [address] [place] [address] Glucose [Mass/Vol] 104 mg/dL High 65-99 [facility] Comment on above: Performed By: #### B MP #### [facility] ([id number]) [address], [address] [place] [address] Potassium [Moles/Vol] 4.2 mmol/L Normal 3.5-5.0 [facility] Comment on above: Performed By: #### B MP #### [facility] ([id number]) [address] [place] [address] Sodium [Moles/Vol] 139 mmol/L Normal 134-146 [facility] Comment on above: Performed By: #### B MP #### [facility] ([id number]) [address] [place] [address] Urea nitrogen [Mass/Vol] 31 mg/dL High 5-23 [facility] Comment on above: Performed By: #### B MP #### [facility] ([id number]) [address], [address] [place] [address] Basic Metabolic Panelon Anion gap [Moles/Vol] 9 mmol/L 5 - 15 mmol/L [facility] Calcium [Mass/Vol] 9.5 mg/dL 8.5 - 10. 5 mg/dL [facility] Chloride [Moles/Vol] 105 mmol/L 98 - 10 9 mmol/L [facility] CO2 [Moles/Vol] 25 mmol/L 22 - 32 mmol/L [facility] Creatinine [Mass/Vol] 1.60 mg/dL High 0.60 - 1.30 mg/dL [facility] Comment on above: METHOD TRACEABLE TO IDRI STANDARD eGFR (CKD-EPI)non-race dependent 50 Low - PINF [facility] Comment on above: Reported eGFR is based on the CKD-EPI 2020 equation that does not use a race coefficient. Glucose [Mass/Vol] 104 mg/dL High 65 - 99 mg/dL [facility] Interpretation and review of laboratory results Abnormal [facility] Potassium [Moles/Vol] 4.2 mmol/L 3.5 - 5.0 mmol/L [facility] Sodium [Moles/Vol] 139 mmol/L 134 - 146 mmol/L [facility] Urea nitrogen [Mass/Vol] 31 mg/dL High 5 - 23 mg/dL [facility] CBC AUTO DIFFon 07-19-2022 BASO # 0.1 103/ul Normal 0.0-0.1 [facility] Comment on above: Performed By: #### C BC #### [facility] [address] [address] [address] Lavonne Tinoco Basophils/100 WBC (Bld) 0.9 % Normal 0.2-2.0 [facility] Comment on above: Performed By: #### C BC #### [facility] [id number] Lavonne Tinoco EO # 0.4 103/ul Normal 0.0-0.7 [facility] Comment on above: Performed By: #### C BC #### [facility] [address] [place] [address] Dr. Lavonne Tinoco Eosinophils/100 WBC (Bld) 4.5 % Normal 0.9-7.0 [facility] Comment on above: Performed By: #### C BC #### [facility] [address] [place] [address] Dr. Lavonne Tinoco Erythrocyte distribution width (RBC) [Ratio] 13.4 % Normal 11.0-15.0 [facility] Comment on above: Performed By: #### C BC #### [facility] [address] [place] [address] Dr. Lavonne Tinoco Hematocrit (Bld) [Volume fraction] 45.0 % Normal 42.0-54.0 [facility] Comment on above: Performed By: #### C BC #### [facility] [address] [place] [address] Dr. Lavonne Tinoco Hemoglobin (Bld) [Mass/Vol] 15.1 g/dL Normal 14.0-18.0 [facility] Comment on above: Performed By: #### C BC #### [facility] [address] [place] [address] Dr. Lavonne Tinoco IG # 0.04 10e3/ul Critically high 0.00-0.03 [facility] Comment on above: Performed By: #### C BC #### [facility] [address] [place] [address] Dr. Lavonne Tinoco IG % 0.4 % Normal 0.0-0.5 [facility] Comment on above: Performed By: #### C BC #### [facility] [address] [place] [address] Dr. Lavonne Tinoco LYMPH # 2.0 103/ul Normal 1.2-3.8 [facility] Comment on above: Performed By: #### C BC #### [facility] [address] [place] [address] Dr. Lavonne Tinoco Lymphocytes/100 WBC (Bld) 21.6 % Normal 20.5-60.0 [facility] Comment on above: Performed By: #### C BC #### [facility] [address] [place] [address] Dr. Lavonne Tinoco MANUAL DIFF REQ NO Normal [facility] Comment on above: Performed By: #### C BC #### [facility] [address] [place] [address] Dr. Lavonne Tinoco MCH (RBC) [Entitic mass] 32.7 pg Normal 25.9-34.0 [facility] Comment on above: Performed By: #### C BC #### [facility] [address] [place] [address] Dr. Lavonne Tinoco MCHC (RBC) [Mass/Vol] 33.6 g/dL Normal 29.9-35.2 [facility] Comment on above: Performed By: #### C BC #### [facility] [address] [place] [address] Dr. Lavonne Tinoco MCV (RBC) [Entitic vol] 97.4 fL Critically high 80.0-94.0 [facility] Comment on above: Performed By: #### C BC #### [facility] [address] [place] [address] Dr. Lavonne Tinoco MONO # 0.6 103/ul Normal 0.3-0.8 [facility] Comment on above: Performed By: #### C BC #### [facility] [address] [place] [address] Dr. Lavonne Tinoco Monocytes/100 WBC (Bld) 6.0 % Normal 1.7-12.0 [facility] Comment on above: Performed By: #### C BC #### [facility] [address] [place] [address] Dr. Lavonne Tinoco NEUT # 6.3 103/ul Normal 1.4-6.5 [facility] Comment on above: Performed By: #### C BC #### [facility] [address] [place] [address] Dr. Lavonne Tinoco Neutrophils/100 WBC (Bld) 66.6 % Normal 43.0-75.0 [facility] Comment on above: Performed By: #### C BC #### [facility] [address] [address] [address] Lavonne Tinoco Platelet mean volume (Bld) [Entitic vol] 10.7 fL Normal 9.5-13.5 [facility] Comment on above: Performed By: #### C BC #### [facility] [address] [address] [address] Lavonne Tinoco PLT 300 103/ul Normal 150-450 [facility] Comment on above: Performed By: #### C BC #### [facility] [address] [address] [address] Lavonne Tinoco RBC 4.62 106/ul Critically low 4.70-6.10 [facility] Comment on above: Performed By: #### C BC #### [facility] [address] [address] [address] Lavonne Tinoco WBC 9.4 103/ul Normal 4.0-11.0 [facility] Comment on above: Performed By: #### C BC #### [facility] [address] [address] [address] Lavonne Tincoo FREE T4on 07-19-2022 Free T4 [Mass/Vol] 0.90 ng/dL Normal 0.76-1.46 [facility] Comment on above: Performed By: #### C MP, TSH, LIPID #### [facility] [address] [place] [address] Dr. Lavonne Tinoco LIPID PROFILEon 07-19-2022 CHOL-HDL RATIO NORM SEE BELOW Normal [facility] Comment on above: Result Comment: 3.3 - 4.4 LOW RISK 4.4 - 7.1 AVERAGE RISK 7.1 - 11.0 MODERATE RISK >11.0 HIGH RISK Performed By: #### C MP, TSH, LIPID #### [facility] [address] [place] [address] Dr. Lavonne Tinoco Cholesterol [Mass/Vol] 207 mg/dL Critically high <=200 [facility] Comment on above: Performed By: #### C MP, TSH, LIPID #### [facility] [address] [address] [address] Lavonne Tinoco Cholesterol in HDL [Mass/Vol] 37 mg/dL Critically low 40-60 [facility] Comment on above: Performed By: #### C MP, TSH, LIPID #### [facility] [address] [address] [address] Lavonne Tinoco Cholesterol in LDL [Mass/Vol] 143.8 mg/dL Normal [facility] Comment on above: Performed By: #### C MP, TSH, LIPID #### [facility] [address] [place] [address] Dr. Lavonne Tinoco Cholesterol.total/Chol esterol in HDL [Mass ratio] 5.6 {ratio} Normal [facility] Comment on above: Performed By: #### C MP, TSH, LIPID #### [facility] [address] [address] [address] Lavonne Tinoco HDL NORMAL > or = 60 mg/dl - LOW CARDIOVASCULAR RISK <40 mg/dl - HIGH CARDIOVASCULAR RISK Normal [facility] Comment on above: Performed By: #### C MP, TSH, LIPID #### [facility] [address] [place] [address] Dr. Lavonne Tinoco LDL CALC NORMAL SEE BELOW Normal [facility] Comment on above: Result Comment: <100 mg/dl OPTIMAL 100 - 129 mg/dl NEAR OR ABOVE OPTIMAL 130 - 159 mg/dl BORDERLINE HIGH 160 - 189 mg/dl HIGH >190 mg/dl VERY HIGH Performed By: #### C MP, TSH, LIPID #### [facility] [address] [address] [address] Lavonne Tinoco Triglyceride [Mass/Vol] 131 mg/dL Normal <=150 [facility] Comment on above: Performed By: #### C MP, TSH, LIPID #### [facility] [address] [place] [address] Dr. Lavonne Tinoco VLDL CALC 26.2 mg/dL Normal [facility] Comment on above: Performed By: #### C MP, TSH, LIPID #### [facility] [address] [address] [address] Lavonne Tinoco PROF 14(COMP METB)on 022 Albumin [Mass/Vol] 3.6 g/dL Normal 3.4-5.0 [facility] Comment on above: Performed By: #### C MP, TSH, LIPID #### [facility] [address] [address] [address] Lavonne Tinoco Albumin/Globulin [Mass ratio] 1.0 {ratio} Normal [facility] Comment on above: Performed By: #### C MP, TSH, LIPID #### [facility] [address] [address] [address] Lavonne Tinoco ALP [Catalytic activity/Vol] 85 U/L Normal 46-116 [facility] Comment on above: Performed By: #### C MP, TSH, LIPID #### [facility] [address] [address] [address] Lavonne Tinoco ALT [Catalytic activity/Vol] 33 U/L Normal 16-63 [facility] Comment on above: Performed By: #### C MP, TSH, LIPID #### [facility] [address] [address] [address] Lavonne Tinoco Anion gap [Moles/Vol] 9.2 mmol/L Normal [facility] Comment on above: Performed By: #### C MP, TSH, LIPID #### [facility] [address] [place] [address] Dr. Lavonne Tinoco AST [Catalytic activity/Vol] 17 U/L Normal 15-37 [facility] Comment on above: Performed By: #### C MP, TSH, LIPID #### [facility] [address] [address] [address] Lavonne Tinoco Bilirubin [Mass/Vol] 0.5 mg/dL Normal 0.2-1.0 [facility] Comment on above: Performed By: #### C MP, TSH, LIPID #### [facility] [address] [address] [address] Lavonne Tinoco Calcium [Mass/Vol] 8.5 mg/dL Normal 8.5-10.1 [facility] Comment on above: Performed By: #### C MP, TSH, LIPID #### [facility] [address] [address] [address] Lavonne Tinoco Chloride [Moles/Vol] 106 mmol/L Normal 98-107 [facility] Comment on above: Performed By: #### C MP, TSH, LIPID #### [facility] [address] [place] [address] Dr. Lavonne Tinoco CO2 [Moles/Vol] 31.3 mmol/L Normal 21.0-32.0 [facility] Comment on above: Performed By: #### C MP, TSH, LIPID #### [facility] [address] [address] [address] Lavonne Tinoco Creatinine [Mass/Vol] 1.06 mg/dL Normal 0.70-1.30 [facility] Comment on above: Performed By: #### C MP, TSH, LIPID #### [facility] [address] [place] [address] Dr. Lavonne Tinoco EGFR-AF GIBRALTARIAN >60 Normal >=60 [facility] Comment on above: Performed By: #### C MP, TSH, LIPID #### [facility] [address] [place] [address] Dr. Lavonne Tinoco EGFR-NON AF GIBRALTARIAN >60 Normal >=60 [facility] Comment on above: Performed By: #### C MP, TSH, LIPID #### [facility] [address] [place] [address] Dr. Lavonne Tinoco Globulin (S) [Mass/Vol] 3.6 g/dL Normal [facility] Comment on above: Performed By: #### C MP, TSH, LIPID #### [facility] [address] [place] [address] Dr. Lavonne Tinoco Glucose [Mass/Vol] 101 mg/dL Normal 74-106 [facility] Comment on above: Performed By: #### C MP, TSH, LIPID #### [facility] [address] [place] [address] Dr. Lavonne Tinoco Potassium [Moles/Vol] 3.5 mmol/L Normal 3.5-5.1 [facility] Comment on above: Performed By: #### C MP, TSH, LIPID #### [facility] [address] [address] [address] Lavonne Tinoco Protein [Mass/Vol] 7.2 g/dL Normal 6.4-8.2 [facility] Comment on above: Performed By: #### C MP, TSH, LIPID #### [facility] [address] [address] [address] Lavonne Tinoco Sodium [Moles/Vol] 143 mmol/L Normal 136-145 [facility] Comment on above: Performed By: #### C MP, TSH, LIPID #### [facility] [address] [address] [address] Lavonne Tinoco Urea nitrogen [Mass/Vol] 21.0 mg/dL Critically high 7.0-18.0 [facility] Comment on above: Performed By: #### C MP, TSH, LIPID #### [facility] [address] [place] [address] Dr. Lavonne Tinoco Urea nitrogen/Creatinine [Mass ratio] 19.8 mg/mg Normal [facility] Comment on above: Performed By: #### C MP, TSH, LIPID #### [facility] [address] [place] [address] Dr. Lavonne Tinoco TSHon 07-19-2022 TSH 1.947 uIU/mL Normal 0.358-3.740 [facility] Comment on above: Performed By: #### C MP, TSH, LIPID #### [facility] [address] [place] [address] Dr. Lavonne Tinoco UA RANDOM W/MICROSCOPICon BACTERIA NONE SEEN Normal NONE SEEN [facility] Comment on above: Performed By: #### U AMIC #### [facility] [address] [place] [address] Dr. Lavonne Tinoco Bilirubin Ql (U) Negative Normal NEGATIVE [facility] Comment on above: Performed By: #### U AMIC #### [facility] [address] [place] [address] Dr. Lavonne Tinoco CAST NONE SEEN Normal NONE SEEN [facility] Comment on above: Performed By: #### U AMIC #### [facility] [address] [address] [address] Lavonne Tinoco Clarity (U) CLEAR Normal CLEAR [facility] Comment on above: Performed By: #### U AMIC #### [facility] [address] [address] [address] Lavonne Tinoco Color (U) YELLOW Normal YELLOW [facility] Comment on above: Performed By: #### U AMIC #### [facility] [address] [address] [address] Lavonne Tinoco Crystals LM Nom (Urine sed) NONE SEEN Normal NONE SEEN [facility] Comment on above: Performed By: #### U AMIC #### [facility] [address] [place] [address] Dr. Lavonne Tinoco Epithelial cells LM Ql (Urine sed) FEW Abnormal NONE SEEN /RARE [facility] Comment on above: Performed By: #### U AMIC #### [facility] [address] [place] [address] Dr. Lavonne Tinoco Glucose Ql (U) Negative Normal NEGATIVE [facility] Comment on above: Performed By: #### U AMIC #### [facility] [address] [address] [address] Lavonne Tinoco Hemoglobin Ql (U) Negative Normal NEGATIVE [facility] Comment on above: Performed By: #### U AMIC #### [facility] [address] [place] [address] Dr. Lavonne Tinoco Ketones Ql (U) Negative Normal NEGATIVE [facility] Comment on above: Performed By: #### U AMIC #### [facility] [address] [place] [address] Dr. Lavonne Tinoco LEUKOCYTES TRACE Abnormal NEGATIVE [facility] Comment on above: Performed By: #### U AMIC #### [facility] [address] [address] [address] Lavonne Tinoco MUCOUS NONE SEEN Normal NONE SEEN [facility] Comment on above: Performed By: #### U AMIC #### [facility] [address] [place] [address] Dr. Lavonne Tinoco Nitrite Ql (U) Negative Normal NEGATIVE [facility] Comment on above: Performed By: #### U AMIC #### [facility] [address] [address] [address] Lavonne Tinoco pH (U) 6.0 [pH] Normal 5-9 [facility] Comment on above: Performed By: #### U AMIC #### [facility] [address] [address] [address] Lavonne Tinoco RBC NONE SEEN Abnormal 0-2 [facility] Comment on above: Performed By: #### U AMIC #### [facility] [address] [address] [address] Lavonne Tinoco SPEC GRAVITY 1.020 Normal 1.005-<=1.025 [facility] Comment on above: Performed By: #### U AMIC #### [facility] [address] [place] [address] Dr. Lavonne Tinoco UA PROTEIN TRACE Normal NEGATIVE/ TRACE [facility] Comment on above: Performed By: #### U AMIC #### [facility] [address] [place] [address] Dr. Lavonne Tinoco Urobilinogen Qn (U) 2.0 {Erick'U}/dL Abnormal 0.2 - 1. 0 [facility] Comment on above: Performed By: #### U AMIC #### [facility] [address] [place] [address] Dr. Lavonne Tinoco WBC 0-2 Abnormal NONE SEEN [facility] Comment on above: Performed By: #### U AMIC #### [facility] [address] [place] [address] Dr. Lavonne Tinoco NM STRESS/REST MULTIon 04-04 NM STRESS/REST MULTI Patient: ABRAM GUILLAUMELeonila Exam Date: 04/04/2022 : 1965 Gender:M Ordering : ROSI SEXTON [employer] Admission #: [id number] Family : Order #: [id number] CLICK HERE TO VIEW EXAM RADIOLOGY REPORT [...] Gan MD on 04/04/2022 at 13:16 Normal [facility] ECHOCARDIO M/2D COMPLETEon 0 02-27-2022 ECHOCARDIO M/2D COMPLETE Patient: ABRAM GUILLAUME Exam Date: 02/27/2022 : 1965 Gender:M Ordering : ROSI SEXTON [facility] Admission #: [id number] Family : Order #: [id number] CLICK HERE TO VIEW EXAM ECHOCARDIOGRAM REPORT [...] Area(A4C): 21.60 cm2 Left Atrium Systolic Volume(A2C): 53921 mm3 Left Atrium Systolic Volume(A4C): 84108 mm3 Mitral Valve MV E to A [...] Peck M.D. on 02/28/2022 at 11:52 Normal [facility] ANKLE LEFT 3 VWSon 2 ANKLE LEFT 3 [facility] Department of Radiology [address] [place] [id number] Patient Name: ABRAM GUILLAUME : 1965 [...] Weight Bearing?: Y Exam: ANKLE LEFT 3 [facility] ANKLE LEFT 3 [facility] 01/11/2022 9:13 AM CLINICAL INDICATIONS: [id number] [...] above Electronically signed: Violeta Jay. Transcribed by: [email or web address], User Resident: Electronically Signed by: VIOLETA JAY @ 01/12/2022 03:24 PM Normal [facility] Comment on above: Order Comment: Views (X-RAY, ANKLE): AP, Lateral, Mortise , Weight Bearing?: Y GLYCOHEMOGLOBIN A1Con 2021 ADA RECOMMENDATION ADA THERAPEUTIC TARGET 6.0 - 7.0 ACTION SUGGESTED > 7.0 Normal [facility] Comment on above: Performed By: #### A 1C #### [facility] [address] [place] [address] Dr. Lavonne Tinoco Glucose [Mass/Vol] 100 mg/dL Normal [facility] Comment on above: Performed By: #### A 1C #### [facility] [address] [place] [address] Dr. Lavonne Tinoco HbA1c (Bld) [Mass fraction] 5.1 % Normal <=6.0 [facility] Comment on above: Performed By: #### A 1C #### [facility] [address] [place] [address] Dr. Lavonne Tinoco MAGNESIUMon 12-25-2021 Magnesium [Mass/Vol] 1.7 mg/dL Normal 1.6-2.3 [facility] Comment on above: Performed By: #### M G, BMP #### [facility] [address] [place] [address] Dr. Lavonne Tinoco PROF CHEM 8 (BAS METB)on Anion gap [Moles/Vol] 12.3 mmol/L Normal [facility] Comment on above: Performed By: #### M Allison, BMP #### [facility] [address] [place] [address] Dr. Lavonne Tinoco Calcium [Mass/Vol] 8.7 mg/dL Normal 8.5-10.1 [facility] Comment on above: Performed By: #### M G, BMP #### [facility] [facility] [address] [address] [address] Lavonne Tinoco Chloride [Moles/Vol] 107 mmol/L Normal 98-107 [facility] Comment on above: Performed By: #### M G, BMP #### [facility] [address] [address] [address] Lavonne Tinoco CO2 [Moles/Vol] 27.4 mmol/L Normal 22.0-30.0 [facility] Comment on above: Performed By: #### M G, BMP #### [facility] [address] [place] [address] Dr. Lavonne Tinoco Creatinine [Mass/Vol] 1.50 mg/dL Critically high 0.66-1.25 [facility] Comment on above: Performed By: #### M G, BMP #### [facility] [address] [place] [address] Dr. Lavonne Tinoco EGFR-AF GIBRALTARIAN 59 mL/min/1.73m2 Critically low >=60 [facility] Comment on above: Performed By: #### Last G, BMP #### [facility] [address] [place] [address] Dr. Lavonne Tinoco EGFR-NON AF GIBRALTARIAN 49 mL/min/1.73m2 Critically low >=60 [facility] Comment on above: Performed By: #### M G, BMP #### [facility] [address] [place] [address] Dr. Lavonne Tinoco Glucose [Mass/Vol] 103 mg/dL Normal 74-106 [facility] Comment on above: Performed By: #### M G, BMP #### [facility] [address] [address] [address] Lavonne Tinoco Potassium [Moles/Vol] 3.7 mmol/L Normal 3.4-5.0 [facility] Comment on above: Performed By: #### M G, BMP #### [facility] [address] [place], [place] [address] Dr. Lavonne Tinoco Sodium [Moles/Vol] 143 mmol/L Normal 137-145 [facility] Comment on above: Performed By: #### M G, BMP #### [facility] [address] [place], [place] [address] Dr. Lavonne Tinoco Urea nitrogen [Mass/Vol] 17.0 mg/dL Normal 7.0-18.0 [facility] Comment on above: Performed By: #### M G, BMP #### [facility] [address] [place], [place] [address] Dr. Lavonne Tinoco Urea nitrogen/Creatinine [Mass ratio] 11.3 mg/mg Normal [facility] Comment on above: Performed By: #### M G, BMP #### [facility] [address] [address] [address] Lavonne Tinoco Vital Signs Date Time Vital Sign Value Performing Clinician Facility 05-06-2025 08:25-0400 Body mass index (BMI) [Ratio] 39.67 kg/m2 Pepper Sexton DEFLASH AND WASH OPERATOR Work Phone: [facility] 05-06-2025 08:25-0400 Body temperature 97.81 [degF] Pepper Sexton DEFLASH AND WASH OPERATOR Work Phone: [facility] 05-06-2025 08:25-0400 Body weight 121.84 kg Pepper Sexton DEFLASH AND WASH OPERATOR Work Phone: [facility] 05-06-2025 08:25-0400 Diastolic blood pressure 94 mm[Hg] Pepper Sexton DEFLASH AND WASH OPERATOR Work Phone: [facility] 05-06-2025 08:25-0400 Heart rate 95 /min Pepper Sexton DEFLASH AND WASH OPERATOR Work Phone: [facility] 05-06-2025 08:25-0400 Respiratory rate 22 /min Pepper Sexton DEFLASH AND WASH OPERATOR Work Phone: [facility] 05-06-2025 08:25-0400 SaO2% (BldA) [Mass fraction] 92 % Pepper Sexton DEFLASH AND WASH OPERATOR Work Phone: [facility] 05-06-2025 08:25-0400 Systolic blood pressure 144 mm[Hg] Pepper Carlie DEFLASH AND WASH OPERATOR Work Phone: [facility] 04-29-2025 08:46-0400 Body height 175.3 cm Robert Kumar MD Work Phone: [facility] 04-29-2025 08:46-0400 Body mass index (BMI) [Ratio] 39.13 kg/m2 Robert Kumar MD Work Phone: [facility] 04-29-2025 08:46-0400 Body weight 120.2 kg Robert Kumar MD Work Phone: [facility] 04-29-2025 08:46-0400 Diastolic blood pressure 108 mm[Hg] Robert Kumar MD Work Phone: [facility] 04-29-2025 08:46-0400 Heart rate 97 /min Robert Kumar MD Work Phone: [facility] 04-29-2025 08:46-0400 SaO2% (BldA) [Mass fraction] 91 % Robert Kumar MD Work Phone: [facility] 04-29-2025 08:46-0400 Systolic blood pressure 164 mm[Hg] Robert Kumar MD Work Phone: [facility] 04-07-2025 08:20-0400 Body mass index (BMI) [Ratio] 38.4 kg/m2 Pepper Sexton DEFLASH AND WASH OPERATOR Work Phone: [facility] 04-07-2025 08:20-0400 Body temperature 97.81 [degF] Pepper Sexton DEFLASH AND WASH OPERATOR Work Phone: [facility] 04-07-2025 08:20-0400 Body weight 117.94 kg Pepper Sexton DEFLASH AND WASH OPERATOR Work Phone: [facility] 04-07-2025 08:20-0400 Diastolic blood pressure 106 mm[Hg] Pepper Aichholz DEFLASH AND WASH OPERATOR Work Phone: [facility] 04-07-2025 08:20-0400 Heart rate 97 /min Pepper Aichholz DEFLASH AND WASH OPERATOR Work Phone: [facility] 04-07-2025 08:20-0400 Respiratory rate 18 /min Pepper Aichholz DEFLASH AND WASH OPERATOR Work Phone: [facility] 04-07-2025 08:20-0400 SaO2% (BldA) [Mass fraction] 93 % Pepper Aichholz DEFLASH AND WASH OPERATOR Work Phone: [facility] 04-07-2025 08:20-0400 Systolic blood pressure 160 mm[Hg] Pepper Aichholz DEFLASH AND WASH OPERATOR Work Phone: [facility] 04-06-2025 14:45-0400 Diastolic blood pressure 118 mm[Hg] Pepper Aichholz Work Phone: [facility] 04-06-2025 14:45-0400 Heart rate 103 /min Pepper Aichholz Work Phone: [facility] 04-06-2025 14:45-0400 Systolic blood pressure 162 mm[Hg] Pepper Aichholz Work Phone: [facility] 04-06-2025 14:39-0400 Body weight 115.21 kg Pepper Aichholz Work Phone: [facility] 04-06-2025 14:39-0400 Respiratory rate 18 /min Pepper Aichholz Work Phone: [facility] 04-06-2025 14:39-0400 SaO2% (BldA) [Mass fraction] 96 % Pepper Aichholz Work Phone: [facility] 04-01-2025 09:49-0400 Body height 175.3 cm Robert Kumar MD Work Phone: [facility] 04-01-2025 09:49-0400 Body mass index (BMI) [Ratio] 37.66 kg/m2 Robert Kumar MD Work Phone: [facility] 04-01-2025 09:49-0400 Body weight 115.67 kg Robert Kumar MD Work Phone: [facility] 04-01-2025 09:49-0400 Diastolic blood pressure 122 mm[Hg] Robert Kumar MD Work Phone: [facility] 04-01-2025 09:49-0400 Heart rate 91 /min Robert Kumar MD Work Phone: [facility] 04-01-2025 09:49-0400 Systolic blood pressure 177 mm[Hg] Robert Kumar MD Work Phone: [facility] 03-08-2025 08:54-0400 Diastolic blood pressure 92 mm[Hg] Pepper Aichholz DEFLASH AND WASH OPERATOR Work Phone: [facility] 03-08-2025 08:54-0400 Systolic blood pressure 144 mm[Hg] Pepper Aichholz DEFLASH AND WASH OPERATOR Work Phone: [facility] 03-08-2025 08:26-0400 Body mass index (BMI) [Ratio] 38.28 kg/m2 Pepper Aichholz DEFLASH AND WASH OPERATOR Work Phone: [facility] 03-08-2025 08:26-0400 Body temperature 98.1 [degF] Pepper Aichholz DEFLASH AND WASH OPERATOR Work Phone: [facility] 03-08-2025 08:26-0400 Body weight 117.57 kg Pepper Aichholz DEFLASH AND WASH OPERATOR Work Phone: [facility] 03-08-2025 08:26-0400 Heart rate 76 /min Pepper Aichholz DEFLASH AND WASH OPERATOR Work Phone: [facility] 03-08-2025 08:26-0400 Respiratory rate 20 /min Pepper Aichholz DEFLASH AND WASH OPERATOR Work Phone: [facility] 03-08-2025 08:26-0400 SaO2% (BldA) [Mass fraction] 94 % Pepper Aichholz DEFLASH AND WASH OPERATOR Work Phone: [facility] 02-17-2025 16:45-0400 Body mass index (BMI) [Ratio] 38.16 kg/m2 Pepper Sexton DEFLASH AND WASH OPERATOR Work Phone: [facility] 02-17-2025 16:45-0400 Body temperature 98.01 [degF] Pepper Sexton DEFLASH AND WASH OPERATOR Work Phone: [facility] 02-17-2025 16:45-0400 Body weight 117.21 kg Pepper Sexton DEFLASH AND WASH OPERATOR Work Phone: [facility] 02-17-2025 16:45-0400 Diastolic blood pressure 90 mm[Hg] Pepper Sexton DEFLASH AND WASH OPERATOR Work Phone: [facility] 02-17-2025 16:45-0400 Heart rate 104 /min Peppereboni Velaz DEFLASH AND WASH OPERATOR Work Phone: [facility] 02-17-2025 16:45-0400 Respiratory rate 22 /min Pepper Sexton DEFLASH AND WASH OPERATOR Work Phone: [facility] 02-17-2025 16:45-0400 SaO2% (BldA) [Mass fraction] 94 % Pepper Sexton DEFLASH AND WASH OPERATOR Work Phone: [facility] 02-17-2025 16:45-0400 Systolic blood pressure 116 mm[Hg] Pepper Sexton DEFLASH AND WASH OPERATOR Work Phone: [facility] 01-06-2025 09:06-0400 Body height 175.3 cm Pepper Sexton DEFLASH AND WASH OPERATOR Work Phone: [facility] 01-06-2025 09:06-0400 Body mass index (BMI) [Ratio] 40.46 kg/m2 Peppereboni Velaz DEFLASH AND WASH OPERATOR Work Phone: [facility] 01-06-2025 09:06-0400 Body temperature 97.81 [degF] Pepper Velaeulalio DEFLASH AND WASH OPERATOR Work Phone: [facility] 01-06-2025 09:06-0400 Body weight 124.29 kg Pepper Aichholz DEFLASH AND WASH OPERATOR Work Phone: [facility] 01-06-2025 09:06-0400 Diastolic blood pressure 82 mm[Hg] Pepper Aichholz DEFLASH AND WASH OPERATOR Work Phone: [facility] 01-06-2025 09:06-0400 Heart rate 91 /min Pepper Aichholz DEFLASH AND WASH OPERATOR Work Phone: [facility] 01-06-2025 09:06-0400 Respiratory rate 18 /min Pepper Aichholz DEFLASH AND WASH OPERATOR Work Phone: [facility] 01-06-2025 09:06-0400 SaO2% (BldA) [Mass fraction] 93 % Pepper Aichholz DEFLASH AND WASH OPERATOR Work Phone: [facility] 01-06-2025 09:06-0400 Systolic blood pressure 140 mm[Hg] Pepper Aichholz DEFLASH AND WASH OPERATOR Work Phone: [facility] 12-02-2024 13:45-0400 Body height 175.26 cm Pepper Aichholz Work Phone: [facility] 12-02-2024 13:45-0400 Body mass index (BMI) [Ratio] 41 kg/m2 Pepper Aichholz Work Phone: [facility] 12-02-2024 13:45-0400 Body weight 126.09 kg Pepper Aichholz Work Phone: [facility] 12-02-2024 13:45-0400 Diastolic blood pressure 73 mm[Hg] Pepper Aichholz Work Phone: [facility] 12-02-2024 13:45-0400 Heart rate 89 /min Pepper Aichholz Work Phone: [facility] 12-02-2024 13:45-0400 Respiratory rate 18 /min Pepper Aichholz Work Phone: [facility] 12-02-2024 13:45-0400 SaO2% (BldA) [Mass fraction] 95 % Pepper Javierhholz Work Phone: [facility] 12-02-2024 13:45-0400 Systolic blood pressure 122 mm[Hg] Pepper Aichholz Work Phone: [facility] 10-07-2024 09:05-0500 Body height 175.3 cm Pepper Aichholz DEFLASH AND WASH OPERATOR Work Phone: [facility] 10-07-2024 09:05-0500 Body mass index (BMI) [Ratio] 41.47 kg/m2 Pepper Aichholz DEFLASH AND WASH OPERATOR Work Phone: [facility] 10-07-2024 09:05-0500 Body temperature 97.81 [degF] Pepper Aichholz DEFLASH AND WASH OPERATOR Work Phone: [facility] 10-07-2024 09:05-0500 Body weight 127.37 kg Pepper Aichholz DEFLASH AND WASH OPERATOR Work Phone: [facility] 10-07-2024 09:05-0500 Diastolic blood pressure 84 mm[Hg] Pepper Aichholz DEFLASH AND WASH OPERATOR Work Phone: [facility] 10-07-2024 09:05-0500 Heart rate 92 /min Pepper Aichholz DEFLASH AND WASH OPERATOR Work Phone: [facility] 10-07-2024 09:05-0500 Respiratory rate 22 /min Pepper Aichholz DEFLASH AND WASH OPERATOR Work Phone: [facility] 10-07-2024 09:05-0500 SaO2% (BldA) [Mass fraction] 96 % Pepper Aichholz DEFLASH AND WASH OPERATOR Work Phone: [facility] 10-07-2024 09:05-0500 Systolic blood pressure 138 mm[Hg] Pepper Aichholz DEFLASH AND WASH OPERATOR Work Phone: [facility] 10-06-2024 09:05-0500 Diastolic blood pressure 86 mm[Hg] Pepper Aichholz Work Phone: [facility] 10-06-2024 09:05-0500 Heart rate 88 /min Pepper Aichholz Work Phone: [facility] 10-06-2024 09:05-0500 Respiratory rate 18 /min Pepper Aichholz Work Phone: [facility] 10-06-2024 09:05-0500 SaO2% (BldA) [Mass fraction] 96 % Pepper Aichholz Work Phone: [facility] 10-06-2024 09:05-0500 Systolic blood pressure 136 mm[Hg] Pepper Aichholz Work Phone: [facility] 10-06-2024 07:31-0500 Body height 177.8 cm Pepper Aichholz Work Phone: [facility] 10-06-2024 07:31-0500 Body weight 115.66 kg Pepper Aichholz Work Phone: [facility] 07-09-2024 13:55-0400 Diastolic blood pressure 74 mm[Hg] Pepper Aichholz Work Phone: [facility] 07-09-2024 13:55-0400 Heart rate 74 /min Pepper Aichholz Work Phone: [facility] 07-09-2024 13:55-0400 Respiratory rate 18 /min Pepper Aichholz Work Phone: [facility] 07-09-2024 13:55-0400 SaO2% (BldA) [Mass fraction] 100 % Pepper Aichholz Work Phone: [facility] 07-09-2024 13:55-0400 Systolic blood pressure 111 mm[Hg] Pepper Aichholz Work Phone: [facility] 07-09-2024 11:51-0400 Body height 175.26 cm Pepper Aichholz Work Phone: [facility] 07-09-2024 11:51-0400 Body temperature 98.6 [degF] Pepper Aichholz Work Phone: [facility] 07-09-2024 11:51-0400 Body weight 117.9 kg Pepper Aichholz Work Phone: [facility] 07-06-2024 09:44-0400 Body height 175.3 cm Pepper Aichholz DEFLASH AND WASH OPERATOR Work Phone: [facility] 07-06-2024 09:44-0400 Body mass index (BMI) [Ratio] 37.18 kg/m2 Pepper Aichholz DEFLASH AND WASH OPERATOR Work Phone: [facility] 07-06-2024 09:44-0400 Body temperature 98.1 [degF] Pepper Aichholz DEFLASH AND WASH OPERATOR Work Phone: [facility] 07-06-2024 09:44-0400 Body weight 114.22 kg Pepper Aichholz DEFLASH AND WASH OPERATOR Work Phone: [facility] 07-06-2024 09:44-0400 Diastolic blood pressure 82 mm[Hg] Pepper Aichholz DEFLASH AND WASH OPERATOR Work Phone: [facility] 07-06-2024 09:44-0400 Heart rate 79 /min Pepper Aichholz DEFLASH AND WASH OPERATOR Work Phone: [facility] 07-06-2024 09:44-0400 Respiratory rate 19 /min Pepper Aichholz DEFLASH AND WASH OPERATOR Work Phone: [facility] 07-06-2024 09:44-0400 SaO2% (BldA) [Mass fraction] 93 % Pepper Aichholz DEFLASH AND WASH OPERATOR Work Phone: [facility] 07-06-2024 09:44-0400 Systolic blood pressure 126 mm[Hg] Pepper Aichholz DEFLASH AND WASH OPERATOR Work Phone: [facility] 06-24-2024 08:39-0400 Body height 175.26 cm [facility] 06-24-2024 08:39-0400 Body mass index (BMI) [Ratio] 42.3 kg/m2 [facility] 06-24-2024 08:39-0400 Body weight 130 kg [facility] 06-23-2024 08:50-0400 Body height 175.26 cm [facility] 06-23-2024 08:50-0400 Body mass index (BMI) [Ratio] 42.3 kg/m2 [facility] 06-23-2024 08:50-0400 Body temperature 98.2 [degF] [facility] 06-23-2024 08:50-0400 Body weight 129.89 kg [facility] 06-23-2024 08:50-0400 Diastolic blood pressure 77 mm[Hg] [facility] 06-23-2024 08:50-0400 Heart rate 91 /min [facility] 06-23-2024 08:50-0400 Respiratory rate 18 /min [facility] 06-23-2024 08:50-0400 SaO2% (BldA) [Mass fraction] 93 % [facility] 06-23-2024 08:50-0400 Systolic blood pressure 115 mm[Hg] [facility] 04-27-2024 08:35-0400 Body height 175.3 cm [facility] 04-27-2024 08:35-0400 Body mass index (BMI) [Ratio] 38.4 kg/m2 [facility] 2 [facility] 04-27-2024 08:35-0400 Body weight 117.94 kg [facility] 03-19-2024 09:37-0400 Body height 175.26 cm [facility] 03-19-2024 09:37-0400 Body mass index (BMI) [Ratio] 39.4 kg/m2 [facility] 03-19-2024 09:37-0400 Body temperature 97.8 [degF] [facility] 03-19-2024 09:37-0400 Body weight 121.1 kg [facility] 03-19-2024 09:37-0400 Diastolic blood pressure 98 mm[Hg] [facility] 03-19-2024 09:37-0400 Heart rate 94 /min [facility] 03-19-2024 09:37-0400 Respiratory rate 20 /min [facility] 03-19-2024 09:37-0400 SaO2% (BldA) [Mass fraction] 95 % [facility] 03-19-2024 09:37-0400 Systolic blood pressure 158 mm[Hg] [facility] Encounters Encounter Date Encounter Type Care Provider Facility Start: 05-06-2025 End: 05-06-2025 Bamboo flowsheet Pepper Sexton DEFLASH AND WASH OPERATOR Work Phone: [facility] Start: 05-06-2025 End: 05-06-2025 Bamboo flowsheet Pepper Sexton DEFLASH AND WASH OPERATOR Work Phone: [facility] Start: 05-06-2025 End: 05-06-2025 Clinisync Result Encounter Generic External Data Provider [facility] External Department Unsolicited Start: 05-06-2025 End: 05-06-2025 Office outpatient visit 25 minutes Pepper Sexton DEFLASH AND WASH OPERATOR Work Phone: [facility] Comment on above: Essential hypertensi on, benign (Primary Dx); Gastro-esophageal reflux disease without esophagitis; Morbid (severe) obesity due to excess calories ([facility]-HCC); Cigarette nicotine dependence without complication; Acute gout of left hand, unspecified cause; COPD with acute exacerbation (HCC); Restless legs syndrome Start: 05-06-2025 End: 05-06-2025 ambulatory PEPPER SEXTON Not Available Start: 04-29-2025 End: 04-29-2025 Office outpatient visit 25 minutes Robert Kumar MD Work Phone: [facility] [place] Comment on above: 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 (CMS-HCC) (Primary Dx); Chronic deep vein thrombosis (DVT) of left thigh ([facility]-HCC) Start: 04-29-2025 End: 04-29-20[facility] Start: 04-20-2025 End: 04-20-2025 ambulatory [facility] Start: 04-14-2025 End: 04-14-2025 Clinisync Result Encounter Generic External Data Provider [facility] External Department Unsolicited Start: 04-14-2025 End: 04-14-2025 Clinisync Result Encounter Generic External Data Provider [facility] External Department Unsolicited Start: 04-13-2025 End: 04-13-2025 Clinisync Result Encounter Pepper Sexton DEFLASH AND WASH OPERATOR Work Phone: [facility] External Department Unsolicited Start: 04-13-2025 End: 04-13-2025 Clinisync Result Encounter Pepper Sexton DEFLASH AND WASH OPERATOR Work Phone: [facility] External Department Unsolicited Start: 04-07-2025 End: 04-07-2025 Bamboo flowsheet Pepper Sexton DEFLASH AND WASH OPERATOR Work Phone: [facility] Start: 04-07-2025 End: 04-07-2025 Bamboo flowsheet Pepper Sexton DEFLASH AND WASH OPERATOR Work Phone: [facility] Start: 04-07-2025 End: 04-07-2025 Office outpatient visit 25 minutes Pepper Sexton DEFLASH AND WASH OPERATOR Work Phone: [facility] Comment on above: Essential hypertensi on, benign (Primary Dx); Morbid (severe) obesity due to excess calories ([facility]-HCC); Gastro-esophageal reflux disease without esophagitis; 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); Fibromyalgia; Bronchitis; Acute gout of left hand, unspecified cause Start: 04-07-2025 End: 04-07-2025 ambulatory PEPPER SEXTON Not Available Start: 04-06-2025 End: 04-06-2025 ambulatory Pepper Sexton Work Phone: [facility] Work Phone: Start: 04-06-2025 End: 04-06-2025 Patient encounter procedure Tang Hamilton MD -[facility] Work Phone: Start: 04-01-2025 End: 04-01-2025 Office outpatient visit 25 minutes Robert Kumar MD Work Phone: [facility] Comment on above: Chronic venous insuf ficiency (Primary Dx); Chronic deep vein thrombosis (DVT) of popliteal vein of left lower extremity (CMS-HCC); 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 (CMS-HCC) Start: 04-01-2025 End: 04-01-2025 ambulatory ROBERT KUMAR [facility] Start: 03-31-2025 End: 03-31-2025 Clinisync Result Encounter Pepper Sexton NP Work Phone: [facility] Unsolicited Start: 03-31-2025 End: 03-31-2025 Clinisync Result Encounter Pepper Carlie DEFLASH AND WASH OPERATOR Work Phone: [facility] External Department Unsolicited Start: 03-17-2025 End: 03-17-2025 Clinisync Result Encounter Pepper Carlie DEFLASH AND WASH OPERATOR Work Phone: [facility] External Department Unsolicited Start: 03-17-2025 End: 03-17-2025 Clinisync Result Encounter Pepper Carlie DEFLASH AND WASH OPERATOR Work Phone: [facility] Department Unsolicited Start: 03-17-2025 End: 03-17-2025 Orders Only Peppereboni Sexton DEFLASH AND WASH OPERATOR Work Phone: [facility] Comment on above: Electrolyte abnormal ity (Primary Dx) Start: 03-17-2025 Non-patient / Non-visit Tang Hamilton MD -[facility] Work Phone: Start: 03-16-2025 End: 03-16-2025 Refill Pepper Sexton DEFLASH AND WASH OPERATOR Work Phone: [facility] Comment on above: Atopic dermatitis, u nspecified type Hypothyroidism, unsp ecified type ; Gastroesophageal reflux disease, unspecified whether esophagitis present; Essential hypertension, benign Start: 03-08-2025 End: 03-08-2025 Bamboo flowsheet Pepper Sexton DEFLASH AND WASH OPERATOR Work Phone: [facility] Start: 03-08-2025 End: 03-08-2025 Bamboo flowsheet Pepper Sexton DEFLASH AND WASH OPERATOR Work Phone: [facility] Start: 03-08-2025 End: 03-08-2025 Office outpatient visit 25 minutes Pepper Sexton DEFLASH AND WASH OPERATOR Work Phone: [facility] Comment on above: Cellulitis of left l ower extremity (Primary Dx); Essential hypertension, benign ; Left leg swelling; Morbid (severe) obesity due to excess calories (CMS-HCC); Chronic bronchitis, unspecified chronic bronchitis type (HCC); Restless legs syndrome; Atopic dermatitis, unspecified type Start: 03-08-2025 End: 03-08-2025 ambulatory PEPPER SEXTON Not Available Start: 02-17-2025 End: 02-17-2025 Transitional care manage srvc 7 day discharge Pepper Sexton DEFLASH AND WASH OPERATOR Work Phone: [facility] Comment on above: Cellulitis of left l ower extremity (Primary Dx); Essential hypertension, benign (CMS/HCC); Morbid (severe) obesity due to excess calories (CMS/HCC); Hypomagnesemia; Cigarette nicotine dependence without complication; MARITZA (acute kidney injury) (CMS/HCC); Left leg swelling Start: 02-17-2025 End: 02-17-2025 ambulatory PEPPER CARLIE Not Available Start: 02-07-2025 End: 02-09-2025 Clinisync Result Encounter Generic External Data Provider [facility] External [facility] Unsolicited Start: 02-07-2025 End: 02-09-2025 Clinisync Result Encounter Generic External Data Provider [facility] External Department Unsolicited Start: 01-06-2025 End: 01-06-2025 Bamboo flowsheet Pepper Sexton DEFLASH AND WASH OPERATOR Work Phone: [facility] Start: 01-06-2025 End: 01-06-2025 Bamboo flowsheet Pepper Sexton DEFLASH AND WASH OPERATOR Work Phone: [facility] Start: 01-06-2025 End: 01-06-2025 Office outpatient visit 25 minutes Pepper Sexton NP Work Phone: [facility] Comment on above: Essential hypertensi on, [...] End: 12-02-2024 ambulatory Pepper Sexton Work Phone: [facility] Work Phone: Start: 12-02-2024 End: 12-02-2024 Patient encounter procedure Pepper Sexton Work Phone: [facility] [place] Work Phone: Start: 11-26-2024 End: 11-26-2024 Clinisync [...] Non-patient / Non-visit Pepper lorenz Work Phone: [facility] Work Phone: Start: 11-05-2024 End: 11-05-2024 Clinisync Result Encounter Pepper Sexton NP Work Phone: [facility] External Department Unsolicited Start: 11-05-2024 End: 11-05-2024 Clinisync Result Encounter Pepper Sexton DEFLASH AND WASH OPERATOR Work Phone: [facility] External Department Unsolicited Start: 11-04-2024 End: 11-04-2024 Refill Pepper Sexton DEFLASH AND WASH OPERATOR Work Phone: [facility] Comment on above: Hypomagnesemia; Restless legs syndrome Start: 10-08-2024 End: 10-08-2024 Refill Pepper Sexton DEFLASH AND WASH OPERATOR Work Phone: [facility] Comment on above: Hypothyroidism, unsp ecified type (CMS/HCC) (Primary Dx); Hypomagnesemia Start: 10-07-2024 End: 10-07-2024 Bamboo flowsheet Pepper Sexton DEFLASH AND WASH OPERATOR Work Phone: [facility] Start: 10-07-2024 End: 10-07-2024 Bamboo flowsheet Pepper Sexton DEFLASH AND WASH OPERATOR Work Phone: [facility] Start: 10-07-2024 End: 10-07-2024 Clinisync Result Encounter Pepper Sexton DEFLASH AND WASH OPERATOR Work Phone: [facility] External Department Unsolicited Start: 10-07-2024 End: 10-07-2024 Office outpatient visit 25 minutes Pepper Sexton DEFLASH AND WASH OPERATOR Work Phone: [facility] Comment on above: Essential hypertensi on, benign (CMS/HCC) (Primary Dx); Morbid (severe) obesity due to excess calories (CMS/HCC); Gastro-esophageal reflux disease without esophagitis; Body mass index (BMI) 37.0-37.9, adult; GURVINDER (obstructive sleep apnea); COPD mixed type (CMS/HCC); Pulmonary hypertension (CMS/HCC); Hypothyroidism, unspecified type (CMS/HCC); Obesity (BMI 30-39.9); Mixed hyperlipidemia (CMS/HCC); Hypomagnesemia; Marijuana use; Pre-diabetes; Chronic bronchitis, unspecified chronic bronchitis type ([facility]) Start: 10-07-2024 End: 10-07-2024 ambulatory PEPPER SEXTON Not Available Start: 10-06-2024 Non-patient / Non-visit Pepper heinayleeneulalio Work Phone: [facility] Work Phone: Start: 10-06-2024 End: 10-06-2024 Admission to same day surgery center Pepper Serratosrinivasa Work Phone: [facility] Work Phone: Start: 10-06-2024 End: 10-06-2024 ambulatory Pepper Wheeler Javierpricillasrinivasa Work Phone: [facility] Work Phone: Start: 09-28-2024 End: 09-28-2024 Clinisync Result Encounter Pepper Serratoayleenz DEFLASH AND WASH OPERATOR Work Phone: [facility] External Department Unsolicited Start: 09-28-2024 End: 09-28-2024 Clinisync Result Encounter Pepper Velaz DEFLASH AND WASH OPERATOR Work Phone: [facility] External Department Unsolicited Start: 09-28-2024 End: 09-28-2024 Refill Pepper Aichholz DEFLASH AND WASH OPERATOR Work Phone: [facility] Comment on above: Hypomagnesemia (Prim ирина Dx) Start: 09-14-2024 End: 09-14-2024 Refill Pepper Aichholz DEFLASH AND WASH OPERATOR Work Phone: [facility] Comment on above: Hypomagnesemia Start: 09-14-2024 End: 09-15-2024 Refill Pepper Aichholz DEFLASH AND WASH OPERATOR Work Phone: [facility] Comment on above: Fibromyalgia Start: 09-04-2024 End: 09-04-2024 Orders Only Pepper Aichholz DEFLASH AND WASH OPERATOR Work Phone: [facility] Comment on above: Hypomagnesemia (Prim ирина Dx) Start: 09-04-2024 End: 09-04-2024 Refill Pepper Carlie DEFLASH AND WASH OPERATOR Work Phone: [facility] Comment on above: Hypomagnesemia Start: 07-09-2024 Non-patient / Non-visit Pepper Eboni kelechi Work Phone: [facility] Gastroenterology Work Phone: Start: 07-09-2024 End: 07-09-2024 Admission to same day surgery center Pepper Carlie Work Phone: [facility] Work Phone: Start: 07-09-2024 End: 07-09-2024 ambulatory Pepper Sexton Work Phone: [facility] Work Phone: Start: 07-06-2024 End: 07-06-2024 Bamboo flowsheet Pepper Carlie DEFLASH AND WASH OPERATOR Work Phone: [facility] Start: 07-06-2024 End: 07-06-2024 Bamboo flowsheet Pepper Javierpricillasrinivasa DEFLASH AND WASH OPERATOR Work Phone: [facility] Start: 07-06-2024 End: 07-06-2024 Office outpatient visit 25 minutes Pepper Carlie DEFLASH AND WASH OPERATOR Work Phone: [facility] Comment [...] Start: 06-29-2024 End: 06-29-2024 Refill Pepper Sexton DEFLASH AND WASH OPERATOR Work Phone: [facility] Comment on above: Restless legs syndro me Start: 06-24-2024 End: 06-24-2024 ambulatory [facility] Work Phone: Start: 06-24-2024 End: 06-24-2024 Patient encounter procedure [facility] Gastroenterology Work Phone: Start: 06-23-2024 End: 06-23-2024 Clinisync Result Encounter Generic External Data Provider [facility] External Department Unsolicited Start: 06-23-2024 End: 06-23-2024 Clinisync Result Encounter Generic External Data Provider [facility] External Department Unsolicited Start: 06-23-2024 End: 06-23-2024 ambulatory [facility] Work Phone: Start: 06-23-2024 End: 06-23-2024 Patient encounter procedure [facility] Nephrology [place] Work Phone: Start: 06-18-2024 End: 06-18-2024 Refill Jose Bell MD Work Phone: [facility] Comment on above: Degenerative disc di sease, cervical (Primary Dx) Start: 06-09-2024 End: 06-09-2024 Refill Pepper Carlie DEFLASH AND WASH OPERATOR Work Phone: [facility] Comment on above: Hypomagnesemia questions Start: 06-03-2024 End: 06-03-2024 Bamboo flowsheet Blank Mcfarlane DEFLASH AND WASH OPERATOR Work Phone: [facility] Start: 06-03-2024 End: 06-03-2024 Bamboo flowsheet Blank Mcfarlane DEFLASH AND WASH OPERATOR Work Phone: [facility] Start: 06-03-2024 End: 06-03-2024 ambulatory BLANK MCFARLANE Not Available Start: 06-03-2024 End: 06-03-2024 Postop follow up visit related to original px Blank Mcfarlane DEFLASH AND WASH OPERATOR Work Phone: [facility] Comment on above: 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 Start: 05-27-2024 End: 05-27-2024 Evaluation and management of inpatient [facility] Start: 05-26-2024 End: 05-26-2024 Refill Tiburcio Noel DEFLASH AND WASH OPERATOR Work Phone: [facility] Comment on above: Post-operative pain (Primary Dx) Start: 05-04-2024 End: 01-06-2025 Preoperative state Tiburcio Noel DEFLASH AND WASH OPERATOR Work Phone: [facility] Start: 04-27-2024 End: 04-27-2024 ambulatory [facility] Start: 04-27-2024 Encounter for other preprocedural examination PEPPER SEXTON [facility] Start: 04-27-2024 End: 04-27-2024 Patient encounter procedure [facility] Pre-Admission Testing 2 [facility] Pre Admit Comment on above: Preop examination (P rimary Dx); Hypertension, unspecified type Start: 04-27-2024 End: 04-27-2024 Preprocedural examination done [facility] 2 [facility] Start: 03-19-2024 End: 03-19-2024 ambulatory [facility] Work Phone: Start: 03-19-2024 End: 03-19-2024 Patient encounter procedure [facility] Nephrology Work Phone: Start: 07-19-2022 End: 07-20-2022 ambulatory AIR TRAFFIC COORDINATOR PEPPER AICHHOLZ Facility:H1 Start: 04-04-2022 End: 04-05-2022 ambulatory AIR TRAFFIC COORDINATOR PEPPER AICHHOLZ Facility:[facility] Start: 02-27-2022 End: 02-28-2022 ambulatory AIR TRAFFIC COORDINATOR PEPPER AICHHOLZ Facility:[facility] Start: 01-16-2022 End: 01-17-2022 ambulatory AIR TRAFFIC COORDINATOR PEPPER AICHHOLZ Facility:[facility] Start: 12-25-2021 End: 12-26-2021 ambulatory AIR TRAFFIC COORDINATOR PEPPER AICHHOLZ Facility:[facility] Procedures Date Procedure Procedure Detail Performing Clinician Start: 05-06-2025 ALL MAGNESIUM Generic External Data Provider Start: 04-14-2025 ALL MAGNESIUM Violeta Pal PA Work Phone: Start: 04-13-2025 ALL URIC ACID Pepper Aichholz DEFLASH AND WASH OPERATOR Work Phone: Start: 03-31-2025 ALL BASIC METABOLIC PANEL Pepper Aichholz DEFLASH AND WASH OPERATOR Work Phone: Start: 03-17-2025 ALL CBC WITH AUTO DIFF Pepper Aichholz DEFLASH AND WASH OPERATOR Work Phone: Start: 02-07-2025 BLOOD CULTURE 2 Generic External Data Provider Start: 02-07-2025 BLOOD CULTURE 1 Generic External Data Provider Start: 11-26-2024 ALL CBC WITH AUTO DIFF Generic External Data Provider Start: 11-24-2024 ALL MAGNESIUM Generic External Data Provider Start: 11-05-2024 ALL MAGNESIUM Pepper Aichholz DEFLASH AND WASH OPERATOR Work Phone: Start: 10-07-2024 ALL MAGNESIUM Pepper Aichholz DEFLASH AND WASH OPERATOR Work Phone: Start: 10-07-2024 ALL THYROID STIM HORMONE Pepper Aichholz N P Work Phone: Start: 10-07-2024 Hemoglobin glycosylated a1c Pepper Aichhol z DEFLASH AND WASH OPERATOR Work Phone: Start: 10-06-2024 Esophagogastroduodenoscopy Pepper Sexton Work Phone: Start: 09-28-2024 ALL BASIC METABOLIC PANEL Pepper Sexton DEFLASH AND WASH OPERATOR Work Phone: Start: 09-28-2024 ALL MAGNESIUM Pepper Sexton DEFLASH AND WASH OPERATOR Work Phone: Start: 07-09-2024 Esophagogastroduodenoscopy Pepper Sexton Work Phone: Start: 06-23-2024 ALL MAGNESIUM Generic External Data Provider Start: 06-23-2024 ALL RENAL FUNCTION PANEL Generic Externa l Data Provider Start: 06-23-2024 ALL URIC ACID Generic External Data Provider Start: 07-19-2022 PSA screening AIR TRAFFIC COORDINATOR PEPPER SEXTON Comment on above: Performed By: #### CMP, TSH, LIPID #### [facility] [address] [place] [address] Dr. Lavonne Tinoco Plan of Treatment Date Care Activity Detail Author Start: 04-01-2026 Adult BMI Screening Adult BMI Screen ing [facility] Start: 08-11-2025 Screening for malign ant neoplasm of colon [facility] Start: 08-09-2025 End: 08-09-2025 Patient encounter procedure 08/09/2025 8:40 AM EST Office Visit [facility] [address] [place] [phone] Pepper Sexton, REMBERTO [address] [place] [phone] [facility] Start: 05-27-2025 Tobacco Screening Tobacco Screening [facility] Start: 05-24-2025 Influenza vaccination Influenza Vacc ine [facility] Start: 05-06-2025 End: 05-06-2025 Patient encounter procedure 05/06/2025 8:20 AM EDT Office Visit [facility] [address] [place] [phone] Pepper Sexton DEFLASH AND WASH OPERATOR [address] [place] [address] Essential hypertension, benign (Primary Dx); Gastro-esophageal reflux disease without esophagitis; Morbid (severe) obesity due to excess calories ([facility]-HCC); Cigarette nicotine dependence without complication; Acute gout of left hand, unspecified cause [facility] Comment on above: Essential hypertensi on, benign (Primary Dx); Gastro-esophageal reflux disease without esophagitis; Morbid (severe) obesity due to excess calories ([facility]-HCC); Cigarette nicotine dependence without complication; Acute gout of left hand, unspecified cause Start: 05-05-2025 End: 05-05-2025 Patient encounter procedure 05/05/2025 8:20 AM EDT Office Visit [facility] [address] [place] [address] Pepper Sexton NP [address] [place] [phone] [facility] Start: 04-29-2025 End: 04-29-2025 Patient encounter procedure 04/29/2025 8:50 AM EDT Office Visit [facility] [address] [place] [address] Robert Kumar MD [address], [facility] [address] [place] [address] [facility] Start: 04-27-2025 Adult BMI Screening Adult BMI Screen ing [facility] Start: 04-27-2025 Tobacco Screening Tobacco Screening [facility] Start: 04-20-2025 End: 04-20-2025 Patient encounter procedure 04/20/2025 9:[address] [facility] [address] [place] [address] Robert Kumar MD [address], [address] [place] [address] [facility] Start: 04-07-2025 End: 04-07-2026 Urate [Mass/volume] in Serum or Plasma Uric acid Lab Routine Acute gout of left hand, unspecified cause Expected: 04/07/2025 (Approximate), Expires: 04/07/2026 [facility] Work Phone: Comment on above: Expected: 04/07/2025 [...] venous insufficiency Expected: 04/01/2025, Expires: 04/01/2026 [facility] Work Phone: Comment on above: Expected: 04/01/2025 , Expires: 04/01/2026 Start: 03-17-2025 End: 03-17-2026 Basic metabolic 1998 panel - Serum or Plasma Basic metabolic panel Lab Routine Electrolyte abnormality Expected: 03/17/2025 (Approximate), Expires: 03/17/2026 [facility] Work Phone: Comment on above: Expected: 03/17/2025 (Approximate), Expires: 03/17/2026 Start: 03-08-2025 End: 03-08-2025 Patient encounter procedure 03/08/2025 8:20 AM EDT Office Visit [facility] [address] [place] [phone] Pepper Sexton NP [address] [place] [phone] Essential hypertension, benign (Primary Dx); Cellulitis of left lower extremity; Left leg swelling; Morbid (severe) obesity due to excess calories (CMS-HCC) [facility] Comment on above: Essential hypertensi on, benign (Primary Dx); Cellulitis of left lower extremity; Left leg swelling; Morbid (severe) obesity due to excess calories (CMS-HCC) Start: 01-06-2025 End: 01-06-2026 CBC W Auto Differential panel - Blood CBC and differential Lab Routine Gastro-esophageal reflux disease without esophagitis Expected: 01/06/2025 (Approximate), Expires: 01/06/2026 [facility] Comment on above: Expected: 01/06/2025 (Approximate), Expires: 01/06/2026 Start: 01-06-2025 End: 01-06-2026 Comprehensive metabolic 2000 panel - Serum or Plasma Comprehensive metabolic panel Lab Routine Chronic kidney disease, stage 3a (HCC) (CMS/HCC) Essential hypertension, benign (CMS/HCC) Gastro-esophageal reflux disease without esophagitis Mixed hyperlipidemia (CMS/HCC) Expected: 01/06/2025 (Approximate), Expires: 01/06/2026 [facility] Comment on above: Expected: 01/06/2025 (Approximate), Expires: 01/06/2026 Start: 01-06-2025 End: 01-06-2026 Lipid 1996 panel - Serum or Plasma Lipid panel Lab Routine Mixed hyperlipidemia (CMS/HCC) Expected: 01/06/2025 (Approximate), Expires: 01/06/2026 [facility] Work Phone: Comment on above: Expected: 01/06/2025 (Approximate), Expires: 01/06/2026 Start: 01-06-2025 End: 01-06-2026 Microalbumin/Creatinine panel in random Urine Microalbumin / creatinine, urine ratio Lab Routine Essential hypertension, benign (CMS/HCC) Expected: 01/06/2025 (Approximate), Expires: 01/06/2026 [facility] Comment on above: Expected: 01/06/2025 (Approximate), Expires: 01/06/2026 Start: 01-06-2025 End: 01-06-2026 Prostate specific Ag [Mass/volume] in Serum or Plasma PSA Lab Routine Screening for prostate cancer Expected: 01/06/2025 (Approximate), Expires: 01/06/2026 [facility] Comment on above: Expected: 01/06/2025 (Approximate), Expires: 01/06/2026 Start: 01-06-2025 End: 01-06-2026 Thyrotropin [Units/volume] in Serum or Plasma TSH Lab Routine Hypothyroidism, unspecified type (CMS/HCC) Expected: 01/06/2025 (Approximate), Expires: 01/06/2026 [facility] Comment on above: Expected: 01/06/2025 (Approximate), Expires: 01/06/2026 Start: 01-06-2025 End: 01-06-2026 Thyroxine (T4) free [Mass/volume] in Serum or Plasma T4, free Lab Routine Hypothyroidism, unspecified type (CMS/HCC) Expected: 01/06/2025 (Approximate), Expires: 01/06/2026 [facility] Comment on above: Expected: 01/06/2025 (Approximate), Expires: 01/06/2026 Start: 01-06-2025 End: 01-06-2026 Urinalysis complete panel - Urine Urinalysis with reflex microscopic (clean catch) Lab Routine Essential hypertension, benign (CMS/HCC) Expected: 01/06/2025 (Approximate), Expires: 01/06/2026 [facility] Comment on above: Expected: 01/06/2025 (Approximate), Expires: 01/06/2026 Start: 01-06-2025 End: 01-06-2025 Patient encounter procedure [facility] Comment on above: Essential hypertensi on, [...] type (CMS/HCC) Expected: 12/06/2024 (Approximate), Expires: 10/08/2025 [facility] Work Phone: Comment on above: Expected: 12/06/2024 (Approximate), Expires: 10/08/2025 Start: 12-06-2024 End: 10-08-2025 Thyroxine (T4) free [Mass/volume] in Serum or Plasma T4, free Lab Routine Hypothyroidism, unspecified type (CMS/HCC) Expected: 12/06/2024 (Approximate), Expires: 10/08/2025 [facility] Comment on above: Expected: 12/06/2024 (Approximate), Expires: 10/08/2025 Start: 10-22-2024 End: 10-08-2025 Magnesium [Mass/volume] in Serum or Plasma Magnesium Lab Routine Hypomagnesemia Expected: 10/22/2024 (Approximate), Expires: 10/08/2025 [facility] Comment on above: Expected: 10/22/2024 (Approximate), Expires: 10/08/2025 Start: 10-07-2024 End: 10-07-2025 Magnesium [Mass/volume] in Serum or Plasma Magnesium Lab Routine Hypomagnesemia Expected: 10/07/2024 (Approximate), Expires: 10/07/2025 [facility] Comment on above: Expected: 10/07/2024 (Approximate), Expires: 10/07/2025 Start: 10-07-2024 End: 10-07-2025 Thyrotropin [Units/volume] in Serum or Plasma TSH Lab Routine Hypothyroidism, unspecified type (CMS/HCC) Expected: 10/07/2024 (Approximate), Expires: 10/07/2025 [facility] Work Phone: Comment on above: Expected: 10/07/2024 (Approximate), Expires: 10/07/2025 Start: 10-07-2024 End: 10-07-2025 Thyroxine (T4) free [Mass/volume] in Serum or Plasma T4, free Lab Routine Hypothyroidism, unspecified type (CMS/HCC) Expected: 10/07/2024 (Approximate), Expires: 10/07/2025 [facility] Comment on above: Expected: 10/07/2024 (Approximate), [...] (CMS/HCC); Hypomagnesemia; Marijuana use; Pre-diabetes Start: 10-06-2024 [facility] Start: 09-04-2024 End: 09-04-2025 Basic metabolic 1998 panel - Serum or Plasma Basic metabolic panel Lab Routine Hypomagnesemia Expected: 09/04/2024 (Approximate), Expires: 09/04/2025 [facility] Comment on above: Expected: 09/04/2024 (Approximate), Expires: 09/04/2025 Start: 09-04-2024 End: 09-04-2025 Magnesium [Mass/volume] in Serum or Plasma Magnesium Lab Routine Hypomagnesemia Expected: 09/04/2024 (Approximate), Expires: 09/04/2025 [facility] Work Phone: Comment on above: Expected: 09/04/2024 (Approximate), Expires: 09/04/2025 Start: 07-09-2024 [facility] Start: 07-06-2024 End: 07-06-2024 Patient encounter procedure [facility] Comment on above: Arrived Start: 06-30-2024 End: 06-30-2024 Patient encounter procedure [facility] Comment on above: Arrived Start: 06-09-2024 End: 06-09-2025 Basic metabolic 1998 panel - Serum or Plasma Basic metabolic panel Lab Routine Hypomagnesemia Expected: 06/09/2024 (Approximate), Expires: 06/09/2025 [facility] Work Phone: Comment on above: Expected: 06/09/2024 (Approximate), Expires: 06/09/2025 Start: 06-09-2024 End: 09-17-2025 Magnesium [Mass/volume] in Serum or Plasma Magnesium Lab Routine Hypomagnesemia Expected: 06/09/2024 (Approximate), Expires: 06/09/2025 [facility] Comment on above: Expected: 06/09/2024 (Approximate), Expires: 06/09/2025 Start: 06-03-2024 End: 06-03-2024 Patient encounter procedure 06/03/2024 8:45 AM EDT Office Visit [facility] [address] [place] [address] Blank Mcfarlane NP [address] [place] [address] [facility] Start: 05-27-2024 End: 05-27-2024 Patient encounter procedure 05/27/2024 10:40 AM EDT Office Visit [facility] [address] [place] [phone] Karuna Carranza PA [address] [place] [address] [facility] [address] Start: 05-27-2024 End: 05-27-2024 Admission to same day surgery center 05/27/2024 7:30 AM EDT - 05/27/2024 8:[address] [facility] [address] [place] [address] Rupert Bo DO [address] [facility] [address] [place] [address] DECOMPRESSION NERVE ULNAR [04710 (CPT )] [facility] Comment on above: DECOMPRESSION NERVE ULNAR [66540 (CPT )] Start: 05-27-2024 End: 05-27-2024 Neuroplasty &/transposition ulnar nerve elbow DECOMPRESSION NERVE ULNAR right ulnar neuropathy 05/27/2024 7:30 AM EDT [facility] Start: 05-27-2024 End: 05-27-2024 Patient encounter procedure 05/27/2024 7:30 AM EDT Procedure Visit [facility] BetzyRupert fernandez Eboni, DO [address] [place] [address] [facility] Start: 05-27-2024 Subsequent hospital visit by physician 05/27/2024 7:30 AM EDT Hospital Encounter [facility] [address] [facility] [place] [address] Betzy Rupert Lyn, DO [address] [place] [address] [facility] Start: 05-24-2024 Influenza vaccination Influenza Vacc ine [facility] Start: 2017 Administration of varicella zoster vaccine Zoster (Shingles) Vaccine (1 of 2) [facility] Start: 1986 DTaP,Tdap and Td Vaccines (1 - Tdap) DTaP,Tdap and Td Vaccines (1 - Tdap) [facility] Start: 1985 Adult BMI Follow Up Plan Adult BMI Follow Up Plan [facility] Start: 1979 Depression Screening Depression Scre [facility] Start: 1967 Screening for malign ant neoplasm of colon [facility] BLOOD CULTURE 1 BLOOD CULTURE 1 Lab Routine 02/07/2025 12:02 PM EDT [facility] BLOOD CULTURE 2 BLOOD CULTURE 2 Lab Routine 02/07/2025 12:45 PM EDT [facility] Patient Education [facility] Work Phone: Renal function 2000 panel - Serum or Plasma [facility] Renal function 1999 panel - Serum or Plasma [facility] Renal function 2000 panel - Serum or Plasma [facility] Renal function 1999 panel - Serum or Plasma [facility] Payers Date Payer Category Payer Self-pay 2019 [facility] BCBS [id number] 2019 [employer] Blue Shie ld Managed Care - PPO ANTHEM Member Subscriber Plan / Payer (Effective 2019-Present) Name: Abram Guillaume Relation to Subscriber: Self Name: Abram Guillaume Payer ID: [id number] (IC) Type: Not on file Address: [address] [address] [address] [id number] 2019 Unknown [id number] 1967 Unknown [id number] 2.16.840.1.148841.3.579. 2.593 1967 Unknown [id number] 2.16.840.1.013796.3.579. 2.593 1967 Unknown [id number] 2.16.840.1.698492.3.579. 2.593 1967 Unknown [id number] 2.16.840.1.007286.3.579. 2.593 1967 Unknown [id number] 2.16.840.1.258767.3.579. 2.593 1967 Unknown [id number] 2.16.840.1.961020.3.579. 2.128 1967 Unknown [id number] 2.16.840.1.483095.3.579. 2.1285 1967 Unknown [id number] 2.16.840.1.562356.3.579. 2.1285 1967 Unknown [id number] 2.16.840.1.922127.3.579. 2.1285 1967 Unknown [id number] 2.16.840.1.185718.3.579. 2.1285 1967 Unknown [id number] 2.16.840.1.449114.3.579. 2.1285 1967 Unknown [id number] 2.16840.1.979914.3.579. 2.1285 1967 Unknown [id number] 2.840.1.073419.3.579. 2.1285 1967 Unknown [id number] 2.840.1.564512.3.579. 2.1285 1967 Unknown [id number] 2.840.1.454293.3.579. 2.1258 1967 Unknown [id number] 2.840.1.242791.3.579. 2.1258 1967 Unknown [id number] 2.840.1.381355.3.579. 2.1258 1967 Unknown [id number] 2.16.840.1.538104.3.579. 2.1258 1967 Unknown [id number] 2.840.1.277516.3.579. 2.1258 1967 Unknown [id number] 2.16.840.1.434641.3.579. 2.1258 1967 Unknown [id number] 2.16.840.1.305465.3.579. 2.1258 1967 Unknown [id number] 2.16840.1.346523.3.579. 2.1259 1967 Unknown [id number] 2.16.840.1.933596.3.579. 2.1259 1959 Unknown [id number] 1959 Unknown [id number] Unknown Marah BC/BS [id number] Unknown [facility] [id number] Unknown [id number] 2.16.840.1.136114.3.579. 2.531 Unknown [id number] 2.16.840.1.917119.3.579. 2.531 Social History Date Type Detail Facility Start: 03-19-2024 Tobacco smoking status [facility] Current some day smoker [facility] Start: 1965 Sex Assigned At Male [facility] Start: 04-30-2024 End: 06-23-2024 Tobacco smoking status [facility] Ex-smoker (finding) [facility] History of tobacco use Current smoker [...] to any clubs or organizations such as buddhist groups, unions, fraternal or athletic groups, or [...] smoking status NHIS Never smoked tobacco (finding) [facility] Start: 04-28-2015 End: 10-06-2024 Sex Male (finding) [facility] History of tobacco use Cigarette Smoker [facility] Start: 04-27-2024 Alcohol Comment social/recreational [facility] Goals Date Patient Goal Desired Activity /State Clinical Notes 04-27-2024 to 05-06-2025 Pepper Sexton NP - 05/06/2025 8:57 AM IRENE HERRERA - 05/06/2025 8:20 AM Dash Sexton NP [...] SURGERY HERNIA REPAIR HERNIA REPAIR LEG SURGERY 2011 fractured leg ULNAR NERVE REPAIR Right 05/27/2024 [...] Morbid (severe) obesity due to excess calories ([facility]) Discussed with patient their BMI (actual, verses [...] Morbid (severe) obesity due to excess calories ([facility]) Discussed with patient their BMI (actual, verses [...] amlodipine,, bystolic, valsartan documented in this encounter [facility] 05-06-2025 Instructions Pepper Sexton NP - 05/06/2025 8:20 AM EDT Add antibiotic twice a day for 10 days documented in this encounter [facility] 04-29-2025 Evaluation + Plan note Associated Problem(s): Chronic deep vein thrombosis (DVT) of left thigh (CMS-HCC) Compression therapy. Leg elevation and exercise [facility] 04-29-2025 Evaluation + Plan note Associated Problem(s): 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 (CMS-HCC) Left SSV Ablation and sclerotherapy. Compression stockings. [facility] 04-29-2025 Miscellaneous Notes Associate d Problem(s): Chronic deep vein thrombosis (DVT) of left thigh (CMS-HCC) Compression therapy. Leg elevation and exercise Associated Problem(s): 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 (CMS-HCC) Left SSV Ablation and sclerotherapy. Compression stockings. documented in this encounter [facility] 04-29-2025 History of Presen t illness Narrative Images from the original note were not included. To: PEPPER SEXTON, CENTRAL CONTROL ROOM OPERATOR-AIR TRAFFIC COORDINATOR HPI: Abram Guillaume is a 59 y.o. [...] 05/27/2024 Performed by Rupert Bo DO at [facility] HERNIA REPAIR Bilateral inguinal LEG SURGERY [...] Resource Strain: Medium Risk (11/25/2023) Received from [facility] Overall Financial Resource Strain (CARDIA) Difficulty of Paying Living Expenses: Somewhat hard Food Insecurity: No Food Insecurity (11/25/2023) Received from [facility] Hunger Vital Sign Worried About Running Out of Food in the Last Year: Never true Ran Out of Food in the Last Year: Never true Transportation Needs: No Transportation Needs (11/25/2023) Received from [facility] PRAPARE - Transportation Lack of Transportation (Medical): No Lack of Transportation (Non-Medical): No Physical Activity: Sufficiently Active (11/25/2023) Received from [facility] Exercise Vital Sign Days of Exercise per Week: 5 days Minutes of Exercise per Session: 150+ min Stress: Stress Concern Present (11/25/2023) Received from [facility] [employer] [place] [facility] [employer] - Occupational Stress Questionnaire Feeling of Stress : To some extent Social Connections: Moderately Integrated (11/25/2023) Received from [facility] Social Connection and Isolation Panel [NHANES] Frequency of Communication with Friends and Family: Once a week Frequency of Social Gatherings with Friends and Family: Three times a week Attends Quaker Services: Never Active Member of Clubs or Organizations: Yes Attends Club or Organization Meetings: Never Marital Status: Interpersonal Safety: Unknown (11/14/2023) Received from [facility] Safety & Environment Fear of Current or Ex-Partner: Not on file Emotionally Abused: Not on file Physically Abused: Not on file Sexually Abused: Not on file Physically or Sexually Abused: Not on file Housing Instability: Low Risk (11/25/2023) Received from [facility] Housing Stability Vital Sign Unable to [...] Robert Kumar MD, ZAN, RPVI, FSVS, FACS [facility] [facility] This note was created with the assistance of a speech recognition program. While intending to generate a timely document that accurately reflects the content of the visit, no guarantee can be provided that every grammatical or spelling mistake has been or will be identified or corrected. Thank you for your understanding. documented in this encounter [facility] 04-07-2025 History of Presen t illness Narrative [...] unable to form fist. When seeing kidney yeskhaiday, pt bp was 140/118. Dr hamilton started [...] Morbid (severe) obesity due to excess calories ([facility]) - Primary Discussed with patient their BMI [...] 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 ([facility]) Reviewed vascular notes Bronchitis Doxy No resp [...] Morbid (severe) obesity due to excess calories ([facility]-HCC) Discussed with patient their BMI (actual, verses recommended). We have also discussed lifestyle modifications: attempts to perform physical activity as chronic conditions allow, also to monitor dietary intake: increasing protein/fruits/veggies and lowering carb intake (unless contraindicated). Limit sodas, juices, and sugary drinks. documented in this encounter [facility] 04-07-2025 Instructions Pepper Sexton NP - 04/07/2025 8:20 AM EDT Diclofenac cream/gel to joint on left hand Next lab draw check uric acid documented in this encounter [facility] 04-01-2025 Evaluation + Plan note Associated Problem(s): 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 ([facility]-HCC) Compression therapy leg elevation exercise. Calamine cream. We will get venous reflux ultrasound. [facility] 04-01-2025 Evaluation + Plan note Associated Problem(s): Chronic deep vein thrombosis (DVT) of popliteal vein of left lower extremity (CMS-HCC) Compression therapy venous reflux ultrasound. Calamine cream to the skin. [facility] 04-01-2025 Miscellaneous Notes Associate d Problem(s): 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 ([facility]-HCC) Compression therapy leg elevation exercise. Calamine cream. We will get venous reflux ultrasound. Associated Problem(s): Chronic deep vein thrombosis (DVT) of popliteal vein of left lower extremity ([facility]-HCC) Compression therapy venous reflux ultrasound. Calamine cream to the skin. documented in this encounter [facility] 04-01-2025 History of Presen t illness Narrative Images from the original note were not included. To: PEPPER SEXTON, CENTRAL CONTROL ROOM OPERATOR-AIR TRAFFIC COORDINATOR HPI: Abram Guillaume is a 59 y.o. [...] 05/27/2024 Performed by Rupert Bo DO at [facility] Bilateral inguinal LEG SURGERY [...] Resource Strain: Medium Risk (11/25/2023) Received from [facility] Overall Financial Resource Strain (CARDIA) Difficulty of Paying Living Expenses: Somewhat hard Food Insecurity: No Food Insecurity (11/25/2023) Received from [facility] Hunger Vital Sign Worried About Running Out of Food in the Last Year: Never true Ran Out of Food in the Last Year: Never true Transportation Needs: No Transportation Needs (11/25/2023) Received from [facility] PRAPARE - Transportation Lack of Transportation (Medical): No Lack of Transportation (Non-Medical): No Physical Activity: Sufficiently Active (11/25/2023) Received from [facility] Exercise Vital Sign Days of Exercise per Week: 5 days Minutes of Exercise per Session: 150+ min Stress: Stress Concern Present (11/25/2023) Received from [facility] [employer] [place] [employer] - Occupational Stress Questionnaire Feeling of Stress : To some extent Social Connections: Moderately Integrated (11/25/2023) Received from [facility] Social Connection and Isolation Panel [NHANES] Frequency of Communication with Friends and Family: Once a week Frequency of Social Gatherings with Friends and Family: Three times a week Attends Quaker Services: Never Active Member of Clubs or Organizations: Yes Attends Club or Organization Meetings: Never Marital Status: Interpersonal Safety: Unknown (11/14/2023) Received from [facility] Safety & Environment Fear of Current or Ex-Partner: Not on file Emotionally Abused: Not on file Physically Abused: Not on file Sexually Abused: Not on file Physically or Sexually Abused: Not on file Housing Instability: Low Risk (11/25/2023) Received from [facility] Housing Stability Vital Sign Unable to [...] popliteal vein of left lower extremity (CMS-HCC) Current Assessment & Plan Compression therapy venous [...] Future - Thigh high anti-embolism stocking Lg/Regular ([id number]) Chronic deep vein thrombosis (DVT) of popliteal vein of left lower extremity ([facility]-HCC) 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 ([facility]-HCC) Robert Kumar MD, ZAN, RPVI, FSVS, FACS [facility] [employer] [facility] This note was created with the assistance of a speech recognition program. While intending to generate a timely document that accurately reflects the content of the visit, no guarantee can be provided that every grammatical or spelling mistake has been or will be identified or corrected. Thank you for your understanding. documented in this encounter [facility] 03-08-2025 History of Presen t illness Narrative [...] SURGERY HERNIA REPAIR HERNIA REPAIR LEG SURGERY 2011 fractured leg ULNAR NERVE REPAIR Right 05/27/2024 [...] Morbid (severe) obesity due to excess calories ([facility]) Discussed with patient their BMI (actual, verses [...] Morbid (severe) obesity due to excess calories ([facility]-HCC) Discussed with patient their BMI (actual, verses [...] 45 mins ago documented in this encounter [facility] 03-08-2025 Instructions Pepper Sexton NP - 03/08/2025 8:20 AM EDT Return to work as of 03/09/25 Keep fu appt with me for March Hern[place] wrap for Left lower leg documented in this encounter [facility] 02-17-2025 History of Presen t illness Narrative Associated Problem(s): MARITZA (acute kidney injury) ([facility]/HCC) Returning to baseline Associated Problem(s): Cellulitis of [...] Returning to baseline documented in this encounter [facility] 02-17-2025 Instructions Pepper Sexton NP - 02/17/2025 4:[address] isabel referral Finish antibiotics, elevate leg Off work 2 weeks, documented in this encounter [facility] 01-06-2025 History of Presen t illness [...] amlodipine, bystolic, valsartan documented in this encounter [facility] 01-06-2025 Instructions Pepper Sexton NP - 01/06/2025 9:00 AM EDT Fasting labs due after 03/02/25 documented in this encounter [facility] 10-07-2024 History of Presen t illness [...] and smoking Pulmonary hypertension (CMS/HCC) Per ECHO 5/23 Does not use PAP Current meds: aldactone, [...] in daily function:NA documented in this encounter [facility] 10-07-2024 Instructions Pepper Sexton NP - 10/07/2024 9:00 AM EST Weight Watchers Check labs cupola patcher helper new dose of Magnesium documented in this encounter [facility] 10-06-2024 History and physical note Note Date/Time October 06, 2024 8:32am [facility] ENTER [address] [place] [address] Gastroenterology H&P Signed Patient: Abram Guillaume MR#: [id number] 4 : 1965 Acct:[id number] Age/Sex: 58 / M Adm Date: 5 Loc: Room: Type: [facility] Attending Dr: James Elaine MD Copies [...] <Electronically signed by James Elaine MD> 10/06/2432 [facility] Work Phone: 1(350) 840-632201-14-[address] [address] EGD Procedure Note Signed Patient: Abram Guillaume MR#: [id number] 4 : 1965 Acct:[id number] Age/Sex: 58 / M Adm Date: 5 Loc: Room: Type: [facility] Attending Dr: James Elaine MD Copies to: MD Pepper Werner NP-C~ Esophagogastroduodenoscopy Date/Provider Date: 10/06/2024 James Elaine MD Procedure Findings: Procedure: EGD with biopsy Indication: 58-year-old man with history of esophagitis here for EGD to assess for Diana's Pre-operative diagnosis: History of esophagitis Post-operative diagnosis: [place]-colored mucosa in the esophagus otherwise normal EGD [...] MD 10/06/24 0832 Signed By: 10/06/24 0834 [facility]01-14-2025 [place] [address] Gastroenterology H&P Signed Patient: Abram Guillaume MR#: [id number] 4 : 1965 Acct:[id number] Age/Sex: 58 / M Adm Date: 5 Loc: Room: Type: [facility] Attending Dr: James Elaine MD Copies to: MD Pepper Werner NP-Radames~ Date of Service: 10/06/2024 HISTORY & PHYSICAL: [...] James Elaine MD 10/06/2431 Signed By: 10/06/2432 [facility]01-06-2025 History of Present illness Narrative * [...] suggestions regarding this matter. documented in this encounterLiber[facility] [id number] [facility] History of Present illness Narrative* [...] scope with GI, has been off his PPI/S3kvpsyhuc for up coming EGD etc Continue with [...] scope with GI, has been off his PPI/R0viztbyzs for up coming EGD etc Continue with GI Essential hypertension, benign (CMS/HCC) - Primary At goal no med dose chagnes Hypothyroidism (CMS/HCC) No med dose changes Hypomagnesemia Continue with TID magnesium and fu with Nephrology Relevant Medications magnesium oxide (Mag-Ox) 400 MG tablet Obesity (BMI 30-39.9) Needs flu shot declines documented in this encounterLiberty [id number] History of Present illness Narrative* Rupert Bo, [...] Dr. Bo/lloyd Bo D.O. documented in this encounterLiberty [id number] Telephone encounter Note* Telephone Encounter - DEBI Cho - 06/09/2024 12:22 PM EDT Spoke with patient and he will RTW tomorrow with light duty [facility] Work Phone: 1(549) 177-409009-17-2024 Miscellaneous Notes* Telephone Encounter - DEBI Cho - 06/09/2024 12:22 PM EDT Spoke with patient and he will RTW tomorrow with light duty * Telephone Encounter - DEBI Cho - 06/09/2024 12:16 PM EDT Spoke with patient and answered questions, he would like to RTW tomorrow with restrictions, spoke with Dr Bo and he said that was fine * Telephone Encounter - Sarah Rolando - 06/09/2024 12:13 PM EDT Pt called and left vm stated he has PO questions, if you could call him at [phone] documented in this encounterLiberty [id number] Telephone encounter Note* Telephone Encounter - DBEI Cho - 06/09/2024 12:16 PM EDT Spoke with patient and answered questions, he would like to RTW tomorrow with restrictions, spoke with Dr Bo and he said that was fine [facility] [id number] Telephone encounter Note* Telephone Encounter - Sarahmaverick Marshall - 06/09/2024 12:13 PM EDT Pt called and left vm stated he has PO questions, if you could call him at [phone] [facility] [id number] History of Present illness Narrative* Blank Mcfarlane [...] EDT Post op pain rx. PDMP reviewed [facility] [id number] Miscellaneous Notes* Telephone Encounter - Tiburcio Noel [...] in at the main lobby of the [facility]- registration desk is straight ahead as soon as you walk in. Tell them you are here for surgery. 2. If you have a Living Will/Durable Power of Articulation Officer for Health Care that is not on [...] after you have bathed. 5. NO nail swiss/acrylic on at least one finger. If you are having a hand, wrist or foot surgery then all nail swiss and artificial/acrylic nails must be removed from [...] please call the Preadmission Testing office at [phone], Mon.-Fri. 7 a.m.-3 p.m. Leave a voicemail [...] [facility] Miscellaneous Notes* Perioperative Nursing Note - Ora Delvalle RN - 04/27/2024 8:15 AM EDT Preoperative Education Checklist- General Surgery date: 05/27/24 Surgery time: 0730 a.m. Arrival time: 0610 a.m. 1. Bring a photo ID and your insurance card with you the day of surgery. You will check in at the main lobby of the [facility]- registration desk is straight ahead as soon as you walk in. Tell them you are here for surgery. 2. If you have a Living Will/Durable Power of Articulation Officer for Health Care that is not on [...] after you have bathed. 5. NO nail swiss/acrylic on at least one finger. If you are having a hand, wrist or foot surgery then all nail swiss and artificial/acrylic nails must be removed from [...] please call the Preadmission Testing office at [phone], Mon.-Fri. 7 a.m.-3 p.m. Leave a voicemail [...] [facility] Nurse Note* Perioperative Nursing Note - Ora Delvalle RN - 04/27/2024 8:15 AM EDT Preoperative Education Checklist- General Surgery date: 05/27/24 Surgery time: 0730 a.m. Arrival time: 0610 a.m. 1. Bring a photo ID and your insurance card with you the day of surgery. You will check in at the main lobby of the [facility]- registration desk is straight ahead as soon as you walk in. Tell them you are here for surgery. 2. If you have a Living Will/Durable Power of Articulation Officer for Health Care that is not on [...] after you have bathed. 5. NO nail swiss/acrylic on at least one finger. If you are having a hand, wrist or foot surgery then all nail swiss and artificial/acrylic nails must be removed from [...] please call the Preadmission Testing office at [phone], Mon.-Fri. 7 a.m.-3 p.m. Leave a voicemail [...] your doctor. [facility]08-05-2024 Nurse Note* Perioperative Nursing Note - Ora Delvalle RN - 04/27/2024 8:15 AM EDT Hibiclens and surgical instructions reviewed. Patient verbalized understanding. [facility] Diagnosis Onset Date Resolution Status GERD (gastroesophageal reflux disease) acute Hypomagnesemia acute Primary hypertension [facility] Work Phone: Evaluation note* Diagnosis Onset Date Resolution Status GERD (gastroesophageal reflux disease) acute Hypomagnesemia acute Primary hypertension acute Dyspepsia acute GERD (gastroesophageal reflux disease) [facility] Work Phone: Evaluation note* Diagnosis Restless legs syndrome Restless legs syndrome (RLS) documented in this encounter [facility]* Diagnosis Cubital tunnel syndrome on right- Primary documented in this encounter [facility]* Diagnosis Essential hypertension, benign [...] inoculation against influenza documented in this encounter [facility]* Diagnosis Hypomagnesemia Disorders of magnesium metabolism documented in this encounter [facility]* Diagnosis Essential hypertension, benign [...] of magnesium metabolism documented in this encounter [facility]* Diagnosis Essential hypertension, benign [...] myalgia and myositis documented in this encounter [facility]* Diagnosis Essential hypertension, benign [...] of magnesium metabolism documented in this encounter [facility] HealthcareEvaluation noteNo assessment information availablePromedica Def[facility] Work Phone: Evaluation note* Diagnosis [...] legs syndrome (RLS) documented in this encounter [facility]* Diagnosis Preop examination- Primary Unspecified pre-operative examination Hypertension, unspecified type [facility] Diagnosis Onset Date Resolution Status Admit Date GERD (gastroesophageal reflu x disease) acute December 02, 2024 1:43pm Hypomagnesemia acute November 1:43pm Primary hypertension acute Anastacio 2024 1:43pm [facility] Work Phone: Evaluation note* Diagnosis Essential hypertension, benign (CMS/HCC)- Primary Essential hypertension, benign Screening for prostate cancer Special screening for malignant neoplasm of prostate Hypomagnesemia Disorders of magnesium metabolism Mixed hyperlipidemia (CMS/HCC) Mixed hyperlipidemia Hyperglycemia Other abnormal glucose Hypothyroidism, unspecified type (CMS/HCC) Restless legs Restless legs syndrome (RLS) Fibromyalgia Unspecified myalgia and myositis Pulmonary hypertension ([facility]/HCC) Other chronic pulmonary heart diseases Restless legs syndrome Restless legs syndrome (RLS) Gastroesophageal reflux disease, unspecified whether esophagitis present Atopic dermatitis, unspecified type Gastroesophageal reflux disease, unspecified whether esophagitis present- Primary Essential hypertension, benign ([facility]/HCC) Essential hypertension, benign Hypothyroidism, unspecified type ([facility]) Mixed hyperlipidemia ([facility]) Mixed hyperlipidemia Hypomagnesemia Disorders of magnesium metabolism Obesity (BMI 30-39.9) Hypomagnesemia- Primary Disorders of magnesium metabolism Fibromyalgia Unspecified myalgia and myositis Atopic dermatitis, unspecified type Gastroesophageal reflux disease, unspecified whether esophagitis present Obesity (BMI 30-39.9) Essential hypertension, benign ([facility]/HCC) Essential hypertension, benign Essential (primary) hypertension ([facility])- Primary Unspecified essential hypertension Morbid (severe) obesity due to excess calories ([facility]) Body mass index (BMI) 38.0-38.9, adult Obesity (BMI 30-39.9) Cigarette nicotine dependence without complication Gastroesophageal reflux disease, unspecified whether esophagitis present Hypomagnesemia Disorders of magnesium metabolism Pre-operative clearance- Primary Unspecified pre-operative examination Hypomagnesemia Disorders of magnesium metabolism Restless legs syndrome Restless legs syndrome (RLS) COPD with acute exacerbation ([facility]) Chronic bronchitis, unspecified chronic bronchitis type ([facility]) Essential hypertension, benign ([facility]) Essential hypertension, benign Gastroesophageal reflux disease, unspecified whether esophagitis present GURVINDER (obstructive sleep apnea) Obstructive sleep apnea (adult) (pediatric) Pulmonary hypertension ([facility]) Other chronic pulmonary heart diseases LV dysfunction Left heart failure Essential hypertension, benign ([facility]/HCC)- Primary Essential hypertension, benign Hypomagnesemia Disorders of magnesium metabolism Gastroesophageal reflux disease, unspecified whether esophagitis present Obesity (BMI 30-39.9) Hypothyroidism, unspecified type ([facility]/HCC) Needs flu shot Need for prophylactic vaccination and inoculation against influenza Hypomagnesemia- Primary Disorders of magnesium metabolism Essential hypertension, benign ([facility])- Primary Essential hypertension, benign Morbid (severe) obesity due to excess calories ([facility]) Gastro-esophageal reflux disease without esophagitis Body mass [...] myalgia and myositis documented in this encounter [facility] HealthcareEvaluation note* Diagnosis Essential hypertension, benign [...] Left leg swelling documented in this encounter [facility] HealthcareEvaluation note* Diagnosis Essential hypertension, benign- [...] Morbid (severe) obesity due to excess calories ([facility] Body mass index (BMI) 38.0-38.9, adult Obesity [...] Morbid (severe) obesity due to excess calories ([facility]) Gastro-esophageal reflux disease without esophagitis Body mass [...] Morbid (severe) obesity due to excess calories [place] Gastro-esophageal reflux disease without esophagitis Body mass [...] hypertension, benign Chronic kidney disease, stage 3a ([facility] Gastro-esophageal reflux disease without esophagitis Morbid (severe) obesity due to excess calories ([facility] Mixed hyperlipidemia Mixed hyperlipidemia Hypomagnesemia Disorders of magnesium metabolism Screening for prostate cancer Special screening for malignant neoplasm of prostate Marijuana use Hypothyroidism, unspecified type Fibromyalgia Unspecified myalgia and myositis Cellulitis of left lower extremity- Primary Essential hypertension, benign Essential hypertension, benign Morbid (severe) obesity due to excess calories ([facility]) Hypomagnesemia Disorders of magnesium metabolism Cigarette nicotine [...] Morbid (severe) obesity due to excess calories ([facility]) Body mass index (BMI) 38.0-38.9, adult Obesity [...] Morbid (severe) obesity due to excess calories ([facility]) Gastro-esophageal reflux disease without esophagitis Body mass [...] Morbid (severe) obesity due to excess calories ([facility]) Mixed hyperlipidemia Mixed hyperlipidemia Hypomagnesemia Disorders of magnesium metabolism Screening for prostate cancer Special screening for malignant neoplasm of prostate Marijuana use Hypothyroidism, unspecified type Fibromyalgia Unspecified myalgia and myositis Cellulitis of left lower extremity- Primary Essential hypertension, benign Essential hypertension, benign Morbid (severe) obesity due to excess calories ([facility]) Hypomagnesemia Disorders of magnesium metabolism Cigarette nicotine dependence without complication MARITZA (acute kidney injury) Left leg swelling Cellulitis of left lower extremity- Primary Essential hypertension, benign Essential hypertension, benign Left leg swelling Morbid (severe) obesity due to excess calories ([facility]) Chronic bronchitis, unspecified chronic bronchitis type (HCC) Restless legs syndrome Restless legs syndrome (RLS) Atopic dermatitis, unspecified type Hypothyroidism, unspecified type Gastroesophageal reflux disease, unspecified whether esophagitis present Essential hypertension, benign Essential hypertension, benign documented in this encounter [facility] HealthcareEvaluation note* Diagnosis Essential hypertension, benign- Primary [...] Morbid (severe) obesity due to excess calories ([facility]) Body mass index (BMI) 38.0-38.9, adult Obesity [...] Morbid (severe) obesity due to excess calories ([facility]) Gastro-esophageal reflux disease without esophagitis Body mass [...] hypertension, benign Chronic kidney disease, stage 3a ([facility]) Gastro-esophageal reflux disease without esophagitis Morbid (severe) obesity due to excess calories ([facility]) Mixed hyperlipidemia Mixed hyperlipidemia Hypomagnesemia Disorders of magnesium metabolism Screening for prostate cancer Special screening for malignant neoplasm of prostate Marijuana use Hypothyroidism, unspecified type Fibromyalgia Unspecified myalgia and myositis Cellulitis of left lower extremity- Primary Essential hypertension, benign Essential hypertension, benign Morbid (severe) obesity due to excess calories ([facility]) Hypomagnesemia Disorders of magnesium metabolism Cigarette nicotine [...] not elsewhere classified documented in this encounter [facility] HealthcareEvaluation note* Diagnosis Chronic venous insufficiency- Primary Unspecified venous (peripheral) insufficiency Chronic deep vein thrombosis (DVT) of popliteal vein of left lower extremity (CMS-HCC) 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 ([facility]) documented in this encounter [facility] SystemEvaluation note* Diagnosis Onset Date Resolution Status Admit Date GERD (gastroesophageal reflu x disease) acute April 06, 2025 2:37pm Hypomagnesemia acute April 06, 2025 2:37pm Primary hypertension acute April 06, 2025 2:37pm [facility] Work Phone: Evaluation note* Diagnosis Essential [...] Morbid (severe) obesity due to excess calories ([facility]) Gastro-esophageal reflux disease without esophagitis Body mass [...] Morbid (severe) obesity due to excess calories ([facility]) Mixed hyperlipidemia Mixed hyperlipidemia Hypomagnesemia Disorders of magnesium metabolism Screening for prostate cancer Special screening for malignant neoplasm of prostate Marijuana use Hypothyroidism, unspecified type Fibromyalgia Unspecified myalgia and myositis Cellulitis of left lower extremity- Primary Essential hypertension, benign Essential hypertension, benign Morbid (severe) obesity due to excess calories ([facility]) Hypomagnesemia Disorders of magnesium metabolism Cigarette nicotine dependence without complication MARITZA (acute kidney injury) Left leg swelling Cellulitis of left lower extremity- Primary Essential hypertension, benign Essential hypertension, benign Left leg swelling Morbid (severe) obesity due to excess calories ([facility]) Chronic bronchitis, unspecified chronic bronchitis type (HCC) [...] hand, unspecified cause documented in this encounter [facility] HealthcareEvaluation note* Diagnosis Chronic venous insufficiency- Primary Unspecified venous (peripheral) insufficiency Chronic deep vein thrombosis (DVT) of popliteal vein of left lower extremity (CMS-HCC) 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 (CMS-HCC) 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 (CMS-HCC)- Primary Chronic deep vein thrombosis (DVT) of left thigh ([facility]) documented in this encounter [facility] SystemEvaluation note* Diagnosis Essential hypertension, benign- [...] Morbid (severe) obesity due to excess calories ([facility]) Gastro-esophageal reflux disease without esophagitis Body mass [...] hypertension, benign Chronic kidney disease, stage 3a ([facility]) Gastro-esophageal reflux disease without esophagitis Morbid (severe) obesity due to excess calories ([facility]) Mixed hyperlipidemia Mixed hyperlipidemia Hypomagnesemia Disorders of magnesium metabolism Screening for prostate cancer Special screening for malignant neoplasm of prostate Marijuana use Hypothyroidism, unspecified type Fibromyalgia Unspecified myalgia and myositis Cellulitis of left lower extremity- Primary Essential hypertension, benign Essential hypertension, benign Morbid (severe) obesity due to excess calories ([facility]) Hypomagnesemia Disorders of magnesium metabolism Cigarette nicotine dependence without complication MARITZA (acute kidney injury) Left leg swelling Cellulitis of left lower extremity- Primary Essential hypertension, benign Essential hypertension, benign Left leg swelling Morbid (severe) obesity due to excess calories ([facility]) Chronic bronchitis, unspecified chronic bronchitis type (HCC) Restless legs syndrome Restless legs syndrome (RLS) Atopic dermatitis, unspecified type Essential hypertension, benign- Primary Essential hypertension, benign Morbid (severe) obesity due to excess calories ([facility]) Gastro-esophageal reflux disease without esophagitis 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 EN[facility] [address] [place] [address] Gastroenterology H&P Signed Patient: Abram Guillaume MR#: [id number] 4 : 1965 Acct:[id number] Age/Sex: 58 / M Adm Date: 4 Loc: Room: Type: [facility] Attending Dr: James Elaine MD Copies [...] signed by James Elaine MD> 07/09/24 1312 [facility] Work Phone: Hospital Discharge instructions Additional [...] -Continue omeprazole 40 mg daily -Office number [phone]. [facility] Work Phone: InstructionsNot on filedocumented in this encounter [facility]ructionsNot on filedocumented in this encounter [facility] SystemReason for referral (narrative)No reason for referral [facility] Work Phone: Summary Purpose Family History [...] ECG 12 lead Rupert Bo DO [address] [facility] [address] [place] [address] Referral ID Status Reason Start Date Expiration Date V isits Requested Visits Authorized [id number] Pending Review 04/23/2024 04/23/2025 1 1 Additional Source Comments (unrecognized sect ion and content) No Status Records FoundNo Status Records FoundNo Status Records FoundNo Status Records FoundNo Status Records FoundNo Status Records Found INFORMATION SOURCE (unrecogn ized section and content) DATE CREATED AUTHOR 05/18/2022 [facility] DATE CREATED AUTHOR AUTHOR'S ORGANIZ ATION 07/22/2022 [facility] DATE CREATED AUTHOR AUTHOR'S ORGANIZ ATION 10/16/2024 [facility] DATE CREATED AUTHOR AUTHOR'S ORGANIZ ATION 04/21/2025 [facility] DATE CREATED AUTHOR AUTHOR'S ORGANIZ ATION 05/01/2025 [facility] DATE CREATED AUTHOR AUTHOR'S ORGANIZ ATION 05/07/2025 [facility] EPIC Care Teams (unrecognized [...] June 23, 2024 End: June 23, 2024 Shredded Filler Hopper Feeder Relationship Specialty Start Date End Date Anastacio Hinojosa MD [address] [place] [address] PCP - General Family Medicine 11/26/23 Pepper Sexton NP [address] [place] [address] PCP - [facility] 04/23/24 Pepper Sexton NP [address] [place] [address] Nurse Practitioner Family Medicine 11/26/23 Team Status: Inactive Member Role Status Dates Pepper Sexton Primary Care Provider Active Sta rt: June 24, 2024 End: June 24, 2024 Dav Swanson APRN Attending Provider Active Start: June 24, 2024 End: June 24, 2024 Shredded Filler Hopper Feeder Relationship Specialty Start Date End Date Anastacio Hinojosa MD [address] [place] [address] PCP - General Family Medicine 11/26/23 Pepper Sexton NP [address] [place] [address] PCP - [facility] 04/23/24 Pepper Sexton NP [address] [place] [address] Nurse Practitioner Family Medicine 11/26/23 Shredded Filler Hopper Feeder Relationship Specialty Start Date End Date Anastacio Hinojosa MD [address] [place] [address] PCP - General Family Medicine 11/26/23 Pepper Sexton NP [address] [place] [address] PCP - [facility] 04/23/24 Pepper Sexton NP [address] [place] [address] Nurse Practitioner Family Medicine 11/26/23 Shredded Filler Hopper Feeder Relationship Specialty Start Date End Date Anastacio Hinojosa MD [address] [place] [address] PCP - General Family Medicine 11/26/23 Pepper Sexton NP [address] [place] [address] PCP - [facility] 04/23/24 Pepper Sexton NP [address] [place] [address] Nurse Practitioner Family Medicine 11/26/23 Shredded Filler Hopper Feeder Relationship Specialty Start Date End Date Anastacio Hinojosa MD [address] [place] [address] PCP - General Family Medicine 11/26/23 Pepper Sexton NP [address] [place] [address] PCP - [facility] 04/23/24 Pepper Sexton NP [address] [place] [address] Nurse Practitioner Family Medicine 11/26/23 Shredded Filler Hopper Feeder Relationship Specialty Start Date End Date Anastacio Hinojosa MD [address] [place] [address] PCP - General Family Medicine 11/26/23 Pepper Sexton NP [address] [place] [address] PCP - [facility] 04/23/24 Pepper Sexton NP [address] [place] [address] Nurse Practitioner Family Medicine 11/26/23 Team Status: [...] Other Provider Active Start: July 09, 2024 Shredded Filler Hopper Feeder Relationship Specialty Start Date End Date Anastacio Hinojosa MD [address] [place] [address] PCP - General Family Medicine 11/26/23 Pepper Sexton NP [address] [place] [address] PCP - [facility] 04/23/24 Pepper Sexton NP [address] [place] [address] Nurse Practitioner Family Medicine 11/26/23 Shredded Filler Hopper Feeder Relationship Specialty Start Date End Date Ansatacio Hinojosa MD [address] [place] [address] PCP - General Family Medicine 11/26/23 Pepper Sexton NP [address] [place] [address] PCP - [facility] 04/23/24 Pepper Sexton NP [address] [place] [address] Nurse Practitioner Family Medicine 11/26/23 Shredded Filler Hopper Feeder Relationship Specialty Start Date End Date Anastacio Hinojosa MD [address] [place] [address] PCP - General Family Medicine 11/26/23 Pepper Sexton NP [address] [place] [address] PCP - [facility] [employer] 04/23/24 Pepper Sexton NP [address] [place] [address] Nurse Practitioner Family Medicine 11/26/23 Shredded Filler Hopper Feeder Relationship Specialty Start Date End Date Anastacio Hinojosa MD [address] [place] [address] PCP - General Family Medicine 11/26/23 Pepper Sexton NP [address] [place] [address] Nurse Practitioner Family Medicine 11/26/23 Shredded Filler Hopper Feeder Relationship Specialty Start Date End Date Anastacio Hinojosa MD [address] [place] [address] PCP - General Family Medicine 11/26/23 Pepper Sexton NP [address] [place] [address] PCP - [facility] [employer] 04/23/24 Pepper Sexton NP [address] [place] [address] Nurse Practitioner Family Medicine 11/26/23 Shredded Filler Hopper Feeder Relationship Specialty Start Date End Date Anastacio Hinojosa MD [address] [place] [address] PCP - General Family Medicine 11/26/23 Pepper Sexton NP [address] [place] [address] PCP - [facility] [employer] 04/23/24 Pepper Sexton NP [address] [place] [address] Nurse Practitioner Family Medicine 11/26/23 Team Status: [...] Other Provider Active Start: October 06, 2024 Shredded Filler Hopper Feeder Relationship Specialty Start Date End Date Anastacio Hinojosa MD [address] [place] [address] PCP - General Family Medicine 11/26/23 Pepper Sexton NP [address] [place] [address] PCP - [facility] [employer] 04/23/24 Pepper Sexton NP [address] [place] [address] Nurse Practitioner Family Medicine 11/26/23 Shredded Filler Hopper Feeder Relationship Specialty Start Date End Date Anastacio Hinojosa MD [address] [place] [address] PCP - General Family Medicine 11/26/23 Pepper Sexton NP [address] [place] [address] PCP - [facility] [employer] 04/23/24 Pepper Sexton NP [address] [place] [address] Nurse Practitioner Family Medicine 11/26/23 Shredded Filler Hopper Feeder Relationship Specialty Start Date End Date Anastacio Hinojosa MD [address] [place] [address] PCP - General Family Medicine 11/26/23 Pepper Sexton NP [address] [place] [address] PCP - [facility] [employer] 04/23/24 Pepper Sexton NP [address] [place] [address] Nurse Practitioner Family Medicine 11/26/23 Shredded Filler Hopper Feeder Relationship Specialty Start Date End Date Anastacio Hinojosa MD [address] [place] [address] PCP - General Family Medicine 11/26/23 Pepper Sexton NP [address] [place] [address] PCP - [facility] [employer] 04/23/24 Pepper Sexton NP [address] [place] [address] Nurse Practitioner Family Medicine 11/26/23 Shredded Filler Hopper Feeder Relationship Specialty Start Date End Date Anastacio Hinojosa MD [address] [place] [address] PCP - General Family Medicine 11/26/23 Pepper Sexton NP [address] [place] [address] PCP - [facility] [employer] 04/23/24 Pepper Sexton NP [address] [place] [address] Nurse Practitioner Family Medicine 11/26/23 Shredded Filler Hopper Feeder Relationship Specialty Start Date End Date Anastacio Hinojosa MD [address] [place] [address] PCP - General Family Medicine 11/26/23 Pepper Sexton NP [address] [place] [address] PCP - [facility] [employer] 04/23/24 Pepper Sexton NP [address] [place] [address] Nurse Practitioner Family Medicine 11/26/23 Shredded Filler Hopper Feeder Relationship Specialty Start Date End Date Pepper Sexton, CENTRAL CONTROL ROOM OPERATOR-AIR TRAFFIC COORDINATOR [address] [place] [address] PCP - General Nurse Practitioner 05/10/22 Team [...] December 02, 2024 End: December 02, 2024 Shredded Filler Hopper Feeder Relationship Specialty Start Date End Date Anastacio Hinojosa MD [address] [place] [address] PCP - General Family Medicine 11/26/23 Pepper Sexton NP [address] [place] [address] PCP - [facility] [employer] 04/23/24 Pepper Sexton NP [address] [place] [address] Nurse Practitioner Family Medicine 11/26/23 Shredded Filler Hopper Feeder Relationship Specialty Start Date End Date nAastacio Hinojosa MD [address] [place] [address] PCP - General Family Medicine 11/26/23 Pepper Sexton NP [address] [place] [address] PCP - [facility] [employer] 04/23/24 Pepper Sexton NP [address] [place] [address] Nurse Practitioner Family Medicine 11/26/23 Shredded Filler Hopper Feeder Relationship Specialty Start Date End Date Anastacio Hinojosa MD [address] [place] [address] PCP - General Family Medicine 11/26/23 Pepper Sexton NP [address] [place] [address] Nurse Practitioner Family Medicine 11/26/23 Shredded Filler Hopper Feeder Relationship Specialty Start Date End Date Anastacio Hinojosa MD [address] [place] [address] PCP - General Family Medicine 11/26/23 Pepper Sexton NP [address] [place] [address] Nurse Practitioner Family Medicine 11/26/23 Shredded Filler Hopper Feeder Relationship Specialty Start Date End Date Anastacio Hinojosa MD [address] [place] [address] PCP - General Family Medicine 11/26/23 Pepper Sexton NP [address] [place] [address] Nurse Practitioner Family Medicine 11/26/23 Shredded Filler Hopper Feeder Relationship Specialty Start Date End Date Anastacio Hinojosa MD [address] [place] [address] PCP - General Family Medicine 11/26/23 Pepper Sexton NP [address] [place] [address] Nurse Practitioner Family Medicine 11/26/23 Shredded Filler Hopper Feeder Relationship Specialty Start Date End Date Anastacio Hinojosa MD [address] [place] [address] PCP - General Family Medicine 11/26/23 Pepper Sexton NP [address] [place] [address] Nurse Practitioner Family Medicine 11/26/23 Shredded Filler Hopper Feeder Relationship Specialty Start Date End Date Anastacio Hinojosa MD [address] [place] [address] PCP - General Family Medicine 11/26/23 Pepper Sexton NP [address] [place] [address] Nurse Practitioner Family Medicine 11/26/23 Shredded Filler Hopper Feeder Relationship Specialty Start Date End Date Anastacio Hinojosa MD [address] [place] [address] PCP - General Family Medicine 11/26/23 Pepper Sexton NP [address] [place] [address] Nurse Practitioner Family Medicine 11/26/23 Shredded Filler Hopper Feeder Relationship Specialty Start Date End Date Anastacio Hinojosa MD [address] [place] [address] PCP - General Family Medicine 11/26/23 Pepper Sexton NP [address] [place] [address] Nurse Practitioner Family Medicine 11/26/23 Shredded Filler Hopper Feeder Relationship Specialty Start Date End Date Anastacio Hinojosa MD [address] [place] [address] PCP - General Family Medicine 11/26/23 Pepper Sexton NP [address] [place] [address] Nurse Practitioner Family Medicine 11/26/23 Shredded Filler Hopper Feeder Relationship Specialty Start Date End Date Pepper Sexton, CENTRAL CONTROL ROOM OPERATOR-AIR TRAFFIC COORDINATOR PCP - General Nurse Practitioner 05/10/22 Shredded Filler Hopper Feeder Relationship Specialty Start Date End Date Anastacio Hinojosa MD [address] [place] [address] PCP - General Family Medicine 11/26/23 Pepper Sexton NP [address] [place] [address] Nurse Practitioner Family Medicine 11/26/23 Shredded Filler Hopper Feeder Relationship Specialty Start Date End Date Anastacio Hinojosa MD [address] [place] [address] PCP - General Family Medicine 11/26/23 Pepper Sexton NP [address] [place] [address] Nurse Practitioner Family Medicine 11/26/23 Shredded Filler Hopper Feeder Relationship Specialty Start Date End Date Anastacio Hinojosa MD [address] [place] [address] PCP - General Family Medicine 11/26/23 Pepper Sexton NP [address] [place] [address] Nurse Practitioner Family Medicine 11/26/23 Shredded Filler Hopper Feeder Relationship Specialty Start Date End Date Pepper Sexton, CENTRAL CONTROL ROOM OPERATOR-AIR TRAFFIC COORDINATOR PCP - General Nurse Practitioner 05/10/22 Shredded Filler Hopper Feeder Relationship Specialty Start Date End Date Anastacio Hinojosa MD [address] [place] [address] PCP - General Family Medicine 11/26/23 Pepper Sexton NP [address] [place] [address] Nurse Practitioner Family Medicine 11/26/23 Shredded Filler Hopper Feeder Relationship Specialty Start Date End Date Anastacio Hinojosa MD [address] [place] [address] PCP - General Family Medicine 11/26/23 Pepper Sexton NP [address] [place] [address] Nurse Practitioner Family Medicine 11/26/23 Shredded Filler Hopper Feeder Relationship Specialty Start Date End Date Anastacio Hinojosa MD [address] [place] [address] PCP - General Family Medicine 11/26/23 Pepper Sexton NP [address] [place] [address] Nurse Practitioner Family Medicine 11/26/23 Goals (unrecognized [...] left lower extremity Left leg swelling Procedures [facility] OFFICE OUTPATIENT VISIT 60-74 MINS HIGH MDM [id number] (SNOMED CT) - AMB REFERRAL TO VASCULAR SURGERY Pepper Sexton, CENTRAL CONTROL ROOM OPERATOR-AIR TRAFFIC COORDINATOR Phone: tel: fax: Fátima Isabel MD [address], [address] [address] Phone: tel:[phone] fax: Referral ID Status Reason Start Date Expiration Date V isits Requested Visits Authorized [id number] Pending Review 03/08/2025 09/04/2025 1 1 Reason [...] BE BASED ON THE PRIMARY CLINICAL RECORDS. [facility]. provides no warranty or guarantee of the accuracy or completeness of information in this document.
[2025-06-16 10:51] LABS: Magnesium 0.6 mg/dL (1.8-2.4)
== END 2025-06-16 10:11 | disposition home or self-care (01) ==
PROVIDERS: PCP Nurse Practitioner; Visit Provider Internal Medicine Nephrology
DX: E83.42 Hypomagnesemia (principal); K21.00 Gastro-esophageal reflux disease with esophagitis, without bleeding; I10 Essential (primary) hypertension
CPT/HCPCS: 36415; 83735

== ENCOUNTER 2025-06-18 08:40 | Outpatient (RCR) | payer BC, SELFPAY ==
[2025-05-26 14:47] LABS: Magnesium 0.8 mg/dL (1.8-2.4)
[2025-05-28] MEDS: MAGNESIUM SULFATE IN WATER 4 GM/100 ML PIGGYBACK IV (08:47)
[2025-05-28 08:48] VITALS: BP 153/92; PULSE 88; TEMP 36.5; O2SAT 91
[2025-06-18 08:46] VITALS: BP 141/90; PULSE 90; TEMP 37; O2SAT 94
[2025-06-18] MEDS: MAGNESIUM SULFATE IN WATER 4 GM/100 ML PIGGYBACK IV (09:00)
[2025-06-18] MEDS: 0.9 % SODIUM CHLORIDE 250 ML IV (11:08)
== END 2025-06-23 07:23 | disposition home or self-care (01) ==
LOC: LAB 08:40
PROVIDERS: PCP Nurse Practitioner; Visit Provider Internal Medicine Nephrology
DX: E83.42 Hypomagnesemia (principal); K21.00 Gastro-esophageal reflux disease with esophagitis, without bleeding; I10 Essential (primary) hypertension; Z51.81 Encounter for therapeutic drug level monitoring
CPT/HCPCS: 36415; 83735; J3475

== ENCOUNTER 2025-07-07 09:29 | Outpatient (RCR) | payer BC, SELFPAY ==
[2025-07-07 09:34] VITALS: BP 144/93; PULSE 80; TEMP 36.6; O2SAT 93
[2025-07-07] MEDS: MAGNESIUM SULFATE IN WATER 4 GM/100 ML PIGGYBACK IV (09:43)
== END 2025-07-23 23:59 | disposition home or self-care (01) ==
LOC: INF 09:29
PROVIDERS: PCP Nurse Practitioner; Visit Provider Internal Medicine Nephrology
DX: E83.42 Hypomagnesemia (principal)
CPT/HCPCS: 96365; 96366; J3475

== ENCOUNTER 2025-08-03 11:45 | Outpatient (OUT) | payer MEDICAID, SELFPAY ==
--- OUTSIDE RECORDS SUMMARY | 2025-07-22 09:15 | XMS_ITS | Encounter Summary ---
Author Organization [facility] tem Address [id number] [address] [place] [address] Care Team Providers Care Eligibility Services Representative Name Role Phone JavierPepper rios Liam MARTINN-LABORATORY DIRECTOR Primary Care Provider Reason for Visit * ReasonCommentsVaricose veins of lower extremity with varicose ulcer and ec Encounter Details DateTypeDepartmentCare Team (Latest Contact Info)Emohoqhdpnt05/30/2025 10:15 AM EDTOffice Visit [facility] [place] [address] Robert Kumar MD [address], [address] [address] 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 ([facility]) (Primary Dx) Social History Tobacco UseTypesPacks/DayYears UsedDateSmoking Tobacco: NeverSmokeless Tobacco: Never Tobacco Cessation:Counseling Given: Not Answered Alcohol UseStandard Drinks/WeekCommentsYes4 (1 standard drink = 0.6 oz pure alcohol)social/recreationalChildcareAnswerDate RecordedChildcareUnknown 03/04/2019EmploymentAnswerDate IdoqlzwvTxsfivgswdFumiije36/12/2019Sex and Gender InformationValueDate RecordedSex Assigned at BirthNot on fileLegal SexMale 04/28/2015 11:51 AM EDTGender IdentityNot on fileSexual OrientationNot on file documented as of this encounter Last Filed Vital Signs Vital SignReadingTime TakenCommentsBlood Jnqveide287/0104907/22/2025 10:18 AM EDT Pulse--Temperature--Respiratory Rate--Oxygen Saturation--Inhaled Oxygen Concentration--Jspjiu061.9 kg (282 lb)07/22/2025 10:18 AM QMXHfkjks372.3 cm (5' 9 )07/22/2025 10:18 AM EDTBody Mass Index41.6407/22/2025 10:18 AM EDTdocumented in this encounter Progress Notes * Robert Kumar MD - 07/22/2025 10:15 AM EDT Images from the original note were not included. To: PEPPER SEXTON, CHERRY CUTTER-LABORATORY DIRECTOR HPI: Abram Sheehan is a 59 y.o. male with venous pre ulcerous changes status post SSV ablation and sclerotherapy. He is doing well. Discussed with him importance of continue good compression therapy andcalamine cream. Leg elevation exercise and weight loss.. Review of Systems: Review of Systems Constitutional: [...] as needed for wheezing. 18 g 11 amLODIPine (NORVASC) 10 mg tablet Take 1 tablet (10 mg total) by mouth in the evening. apixaban (ELIQUIS) 5 mg tablet Take 1 tablet (5 mg total) by mouth in the morning and 1 tablet (5 mg total) before bedtime. budesonide-formoteroL (SYMBICORT) 80-4.5 mcg/actuation inhaler Inhale 2 puffs in the morning and 2 puffs before bedtime. 10.2 g 12 calamine-zinc oxide 8-8 % lotion Apply 1 Application topically as needed for itching. 120 mL 0 doxepin (SINEquan) 10 mg capsule Take 1 capsule (10 mg total) by mouth nightly. gabapentin (NEURONTIN) 300 mg capsule Take 1 capsule (300 mg total) by mouth in the morning and 1 capsule (300 mg total) before bedtime. ibuprofen (ADVIL,MOTRIN) 200 mg tablet Take 1 tablet (200 mg total) by mouth every 6 (six) hours asneeded for pain. levothyroxine (SYNTHROID, LEVOTHROID) 25 MCG tablet Take 4 tablets (100 mcg total) by mouth in the morning. MAGNESIUM GLYCINATE-MAG OXIDE ORAL Take 100 mg by mouth in the morning and at bedtime. montelukast (SINGULAIR) 10 mg tablet Take [...] Medical History: Diagnosis Date Arthritis Asthma seasonal/weather Deep vein thrombosis (CMS-HCC) Dermatitis Fibromyalgia, primary GERD (gastroesophageal reflux disease) HTN (hypertension) Hyperlipidemia Hypothyroid Injury of back Obesity Pulmonary HTN (CMS-HCC) show on echo 01/2023 Rash Sleep apnea Syncope Visual impairment Past Surgical History: Past Surgical History: Procedure Laterality Date ABLATION VENOUS [id number] Left 07/08/2025 Performed by Robert Kumar MD at [facility] DECOMPRESSION NERVE ULNAR Right 05/27/2024 Performed by Nathan Bo DO at [facility] ESOPHAGOGASTRODUODENOSCOPY x2 HERNIA REPAIR Bilateral inguinal LEG SURGERY Left 2011 broken tib/fib SCLEROTHERAPY LOWER EXTREMITY Left 07/08/2025 Performed by Robert Kumar MD at [facility] TONSILLECTOMY Social and Family History: Social History [...] social/recreational Drug use: Yes Types: Marijuana Comment: once in a while , per pt it has been over 24 hours Sexual activity: Defer Other Topics Concern Caffeine Use Yes Social History Narrative Not on file Social Drivers of Health Financial Resource Strain: Medium Risk (11/25/2023) Received from [facility] Overall Financial Resource Strain (CARDIA) Difficulty of Paying Living Expenses: Somewhat hard Food Insecurity: No Food Insecurity (11/25/2023) Received from [facility] Hunger Vital Sign Within the past 12 months, you worried that your food would run out before you got the money to buymore.: Never true Within the past 12 months, the food you bought just didn't last and you didn't have money to get more.: Never true Transportation Needs: No Transportation Needs (11/25/2023) Received from [facility] PRAPARE - Transportation Lack of Transportation (Medical): No Lack of Transportation (Non-Medical): No Physical Activity: Sufficiently Active (11/25/2023) Received from [facility] Exercise Vital Sign On average, how many days per week do you engage in moderate to strenuous exercise (like a brisk walk)?: 5 days On average, how many minutes do you engage in exercise at this level?: 150+ min Stress: Stress Concern Present (11/25/2023) Received from [facility] [place] [facility] [employer] [facility] - Occupational Stress Questionnaire Feeling of Stress : To some extent Social Connections: Moderately Integrated (11/25/2023) Received from [facility] Social Connection and Isolation Panel In a typical week, how many times do you talk on the phone with family, friends, or neighbors?: Once a week How often do you get together with friends or relatives?: Three times a week How often do you attend jewish or sabianism services?: Never Do you belong to any clubs or organizations such as jewish groups, unions, fraternal or athletic groups, or school groups?: Yes How often do you attend meetings of the clubs or organizations you belong to?: Never Are you , , , , never , or living with a partner?: Interpersonal Safety: Unknown (11/14/2023) Received from [facility] [place] Safety & Environment Fear of Current or Ex-Partner: Not on file Emotionally Abused: Not on file Physically Abused: Not on file Sexually Abused: Not on file Physically or Sexually Abused: Not on file Housing Instability: Low Risk (11/25/2023) Received from [facility] Housing Stability Vital Sign Unable to [...] assessment and plan below. Vitals: BP (!) 167/101 Ht 175.3 cm (5' 9 ) Wt 127.9 kg (282 lb) BMI 41.64 kg/m?? Body mass index is 41.64 kg/m??. Physical Exam: Physical Exam Constitutional: Appearance: Normal [...] content normal. Judgment: Judgment normal. Recent testing: Recent labs and noninvasive tests have been reviewed. 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 Follow up in 3 months. Abram was seen today for varicose veins of lower extremity with varicose ulcer and ec. 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 While intending to generate a timely document that accurately reflects the content of the visit, no guarantee can be provided that every grammatical or spelling mistake has been or will be identified or corrected. Thank you for your understanding. documented in this encounter Miscellaneous Notes * Assessment & Plan Note - Robert Kumar MD - 07/22/2025 10:33 AM EDT Associated Problem(s): 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 ([facility]) Continue compression therapy and calamine cream. Follow up in 3 months. documented in this encounter Plan of Treatment DateTypeDepartmentCare Team (Latest Contact Info)Ctthrfwjlcp77/05/2026 10:00 AM ESTOffice Visit [facility] [place] [address] [place] [address] Vanessa Bedolla, CHERRY CUTTER-LABORATORY DIRECTOR [address] [address] documented as of this encounter Visit Diagnoses Diagnosis 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 ([facility])- Primary documented in this encounter Care Teams Team MemberRelationshipSpecialtyStart DateEnd Date Pepper Sexton, CHERRY CUTTER-LABORATORY DIRECTOR PCP - GeneralNurse Practitioner05/10/22documented as of this encounter
--- OUTSIDE RECORDS SUMMARY | 2025-08-03 11:49 | XMS_ITS | Clinical Summary ---
Author Organization [employer] tem Address [facility] [place]-[id number] [address] [place] [address] Care Team Providers Care New Order Clerk Name Role Phone Carlie Pepper Wheeler APRN-SUPERVISOR LANDSCAPE Primary Care Provider Allergies No known active allergies Medications MedicationSigDispense QuantityRefillsLast FilledStart DateEnd DateStatus gabapentin (NEURONTIN) 300 mg capsule Take 1 capsule (300 mg total) by mouth in the morning and 1 capsule (300 mg total) before bedtime.Active omeprazole (PriLOSEC) 40 mg capsule Take 1 capsule (40 mg total) by mouth in the morning.Active levothyroxine (SYNTHROID, LEVOTHROID) 25 MCG tablet Take 4 tablets (100 mcg total) by mouth in the morning.Active doxepin (SINEquan) 10 mg capsule Take 1 capsule (10 mg total) by mouth nightly.Active valsartan (DIOVAN) 320 mg tablet Take 1 tablet (320 mg total) by mouth in the morning.09/29/2021ctive nebivoloL (BYSTOLIC) 5 mg tablet Take 1 tablet (5 mg total) by mouth in the morning.Active montelukast (SINGULAIR) 10 mg tablet Take 1 tablet (10 mg total) by mouth nightly.Active budesonide-formoteroL (SYMBICORT) 80-4.5 mcg/actuation inhaler Indications:Mild persistent asthma without complicationInhale 2 puffs in the morning and 2 puffs before bedtime. 10.2 g ctive albuterol (PROVENTIL HFA;VENTOLIN HFA) 90 mcg/actuation inhaler Indications:Mild persistent asthma without complicationInhale 2 puffs every 6 (six) hours as needed for wheezing. 18 g ctive ibuprofen (ADVIL,MOTRIN) 200 mg tablet Take 1 tablet (200 mg total) by mouth every 6 (six) hours as needed for pain. Active acetaminophen (TYLENOL ARTHRITIS) 650 mg 8 hr tablet Take 1 tablet (650 mg total) by mouth every 8 (eight) hours as needed for pain. Active calamine-zinc oxide 8-8 % lotion Apply 1 Application topically as needed for itching. 120 mL 04/29/2025tive apixaban (ELIQUIS) 5 mg tablet Take 1 tablet (5 mg total) by mouth in the morning and 1 tablet (5 mg total) before bedtime.Active amLODIPine (NORVASC) 10 mg tablet Take 1 tablet (10 mg total) by mouth in the evening.Active MAGNESIUM GLYCINATE-MAG OXIDE ORAL Take 100 mg by mouth in the morning and at bedtime.Active meloxicam (MOBIC) 15 mg tablet Take 1 tablet (15 mg total) by mouth in the morning. Discontinued(Therapy completed) famotidine (PEPCID) 20 mg tablet Take 2 tablets (40 mg total) by mouth in the morning.07/05/2025Discontinued (Therapy completed) magnesium oxide (MAGOX) 400 mg tablet Take 1 tablet (400 mg total) by mouth in the morning and 1 tablet (400 mg total) at noon and 1 tablet (400 mg total) before bedtime.07/08/2025Discontinued (Alternate therapy) Active Problems ProblemNoted DateDiagnosed DateChronic deep vein thrombosis (DVT) of left thigh 04/01/2025 Assessment & Plan (04/29/2025 8:56 AM EDT): Compression therapy. Leg elevation and exercise Chronic deep vein thrombosis (DVT) of popliteal vein of left lower extremity 04/01/2025 Assessment & Plan (04/01/2025 10:43 AM EDT): Compression therapy venous reflux ultrasound. Calamine cream to the skin. Varicose veins of lower extremity with varicose ulcer and qmhafc6604/01/2025 Assessment & Plan (07/22/2025 10:33 AM EDT): Continue compression therapy and calamine cream. Follow up in 3 months. Assessment & Plan (04/29/2025 8:56 AM EDT): Left SSV Ablation and sclerotherapy. Compression stockings. Assessment & Plan (04/01/2025 10:43 AM EDT): Compression therapy leg elevation exercise. Calamine cream. We will get venous reflux ultrasound. Pulmonary rzywpmzhmokd66/10/2022Mild persistent asthma without complication 08/02/2022ulmonary mofdaqwyou45/10/8166Ujcfyutgdsjj14/18/2022LV dysfunction 05/10/2022yncope and syebpqyu61/25/2022 Encounters DateTypeDepartmentCare ZbukLpvmxtemfvv72/30/2025 10:15 AM EDTOffice Visit [facility] [address] [address] Robert Kumar MD 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 ([facility]) (Primary Dx)07/22/20252828Ksearp37/22/2025 12:43 PM EDT - 07/14/2025 11:59 PM EDT Hospital Encounter [facility] - Vascular [address] [place] [address] Robert Kumar MD H/O prior ablation treatment; 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 ([facility]-H[facility]) Discharge Disposition: Home07/14/20257629Rpoett87/16/2025 2:37 PM EDTAnesthesia Event [facility] - Surgery [address] [place] [phone] German Yip, 07/08/2025 2:00 PM EDT - 07/08/2025 3:00 PM EDTSurgery [facility] - Surgery [address] [place] [address] Robert Kumar MD ABLATION VENOUS BSEBBREXLPBNLB-WAR-LOWPAZCVL45/16/2025 11:49 AM EDT - 07/08/2025 4:01 PM EDTHospital Encounter [facility] - Surgery [address] [place] [address] Robert Kumar MD Preop examination (Primary Dx); Hypomagnesemia Discharge Disposition: Home07/08/20258479Jexnpj67/13/2025 9:55 AM EDT - 07/05/2025 11:59 PM EDTHospital Encounter [facility] - Cardiovascular [address] [place] [phone] Kd Moffett MD Preop examination; Hypertension, unspecified type Discharge Disposition: Home07/05/2025 9:45 AM EDTProcedure visit [facility] - Pre Admit [address] [place] [address] Preop examination (Primary Dx); Hypertension, unspecified type; Oaniqjskvihjvm68/13/9333Dyklfv56/10/2025Orders Only [facility] [address] [place] [address] Lissy Berger H/O prior ablation treatment (Primary Dx); 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 ([facility])from Last 3 Months Family History Medical HistoryRelationNameCommentsNo Known ProblemsFatherArthritisMother RelationNameStatusCommentsFatherDeceasedMotherAlive Social History Tobacco UseTypesPacks/DayYears UsedDateSmoking Tobacco: NeverSmokeless Tobacco: Never Tobacco Cessation:Counseling Given: Not Answered Alcohol UseStandard Drinks/WeekCommentsYes4 (1 standard drink = 0.6 oz pure alcohol)social/recreationalChildcareAnswerDate RecordedChildcareUnknown 03/04/2019EmploymentAnswerDate KvcfezsbFbvicwksplTdmnctc52/12/2019Sex and Gender InformationValueDate RecordedSex Assigned at BirthNot on fileLegal SexMale 04/28/2015 11:51 AM EDTGender IdentityNot on fileSexual OrientationNot on file Last Filed Vital Signs Vital SignReadingTime TakenCommentsBlood Ismyhftn920/4835007/22/2025 10:18 AM EDT Cfblt424507/08/2025 3:44 PM YQMGcdtxjhvbep01.2 ??C (97.1 ??F)07/08/2025 3:29 PM EDTRespiratory Jiaz9897 3:29 PM EDTOxygen Uhrfvpfgjz25%07/08/2025 3:44 PM EDTInhaled Oxygen Concentration--Vnekxv155.9 kg (282 lb)07/22/2025 10:18 AM UKVTqepyj839.3 cm (5' 9 )07/22/2025 10:18 AM EDTBody Mass Index41.6407/22/2025 10:18 AM EDT Plan of Treatment DateTypeDepartmentCare Team (Latest Contact Info)Qynnuuvvqbg30/05/2026 10:00 AM ESTOffice Visit [facility] [address] [place] [address] Vanessa Bedolla, DIRECT SUPPORT PROFESSIONAL-SUPERVISOR LANDSCAPE SUKHI FRYE [address] [address] Health MaintenanceDue DateLast DoneCommentsDepression Rdfaebpre91/17/1980Adult BMI Follow Up Plan1985DTaP,Tdap and Td Vaccines (1 - Tdap)1986Zoster (Shingles) Vaccine (1 of 2)2017Influenza Lidyzey7405/24/2025dult BMI Neacpqhui18Tobacco Hkxhldsuh58 Medical Devices Not on file Procedures Procedure NamePriorityDate/TimeAssociated DiagnosisCommentsVASC VENOUS DUPLEX LOWER RTEEIpieiuh28/22/2025 1:16 PM EDT H/O prior ablation treatment 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 (CMS-HCC) SCLEROTHERAPY LOWER GJJTDCCBD93/16/2025 2:37 PM EDT 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 (CMS-HCC) ABLATION VENOUS HSDEBALWVAORQW00/16/2025 2:37 PM EDT 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 (CMS-HCC) BSKOJXUNTSWNW36/16/2025 1:59 PM EDT ECG 12-ECVZJurdfur22/13/2025 10:20 AM EDT Preop examination Hypertension, unspecified type EPJXYEKGJQeqfxwl98/13/2025 10:15 AM EDT Preop examination Hypertension, unspecified type Hypomagnesemia TPBXLfzfzwx24/13/2025 10:15 AM EDT 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 (CMS-HCC) CBC (NO DIFF)Jddpcib7307/05/2025 10:15 AM EDT 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 (CMS-HCC) PROTIME & FHNSmtjbcs21/13/2025 10:15 AM EDT 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 (CMS-HCC) BASIC METABOLIC IPQWWIxkekqk52/13/2025 10:15 AM EDT 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 (CMS-HCC) from Last 3 Months Results * Vas venous duplex lwr single left (07/14/2025 1:16 PM EDT)Anatomical Region LateralityModalityVascularLeftUltrasoundSpecimen (Source)Anatomical Location / LateralityCollection Method / VolumeCollection TimeReceived Time07/14/2025 1:44 PM EDT Narrative 07/14/2025 2:49 PM EDT Right: Common femoral vein is compressible with spontaneous phasic spectral Doppler waveforms. Left: Small saphenous vein ablation in the calf noted 1.3 cm from the popliteal vein. Non-Dilated partially compressible popliteal vein with hyperechoic intraluminal content and spontaneous phasic spectral Doppler signals. Remaining visualized deep venous segments are compressible with spontaneous phasic spectral Doppler waveforms. Remaining superficial veins are compressible. Conclusions: LEFT:CHRONIC post thrombotic popliteal venous disease.Satisfactory endovenous ablationof small saphenous vein.NO EVIDENCE of deep vein thrombosis (DVT) of the right common femoral vein. Procedure Note Phyllis Mcclendon MD - 07/14/2025 Right: Common femoral vein is compressible with spontaneous phasicspectral Doppler waveforms. Left: Small saphenous vein ablation in the calf noted 1.3 cm from thepopliteal vein. Non-Dilated partially compressible popliteal vein withhyperechoic intraluminal content and spontaneous phasic spectral Dopplersignals. Remaining visualized deep venous segments are compressible with spontaneous phasic spectral Doppler waveforms. Remaining superficial veins are compressible. Conclusions: LEFT:CHRONIC post thrombotic popliteal venousdisease.Satisfactory endovenous ablation of small saphenous vein.NOEVIDENCE of deep vein thrombosis (DVT) of the right common femoral vein. Authorizing ProviderResult TypeResult StatusRobert Kumar [facility] [place] VASCULAR ORDERABLESFinal Result * (ABNORMAL) Magnesium (07/08/2025 1:59 PM EDT) Only the most recent of2 resultswithin the time period is included. ComponentValueRef RangeTest MethodAnalysis TimePerformed AtPathologist Signature MAGNESIUM1.7(L)1.8 - 2.6 mg/dL07/08/2025 2:12 PM EDTPROMEDLOMPOC VALLEY MEDICAL CENTERpecimen (Source)Anatomical Location / LateralityCollection Method / VolumeCollection TimeReceived TimeBloodVenous blood / UnknownVenipuncture / Fwooeln3907/08/2025 1:59 PM EDT1 1:59 PM EDT Narrative Authorizing ProviderResult TypeResult StatusMohelen Kumar MDLAB BLOOD ORDERABLESFinal ResultPerforming OrganizationAddressCity/State/ZIP CodePhone Number [facility] [address] [place] [address], * ECG 12 lead (07/05/2025 10:20 AM EDT)Specimen (Source)Anatomical Location / LateralityCollection Method / VolumeCollection TimeReceived Time07/05/2025 10:20 AM EDT Narrative TRACEMASTERVUE - 07/05/2025 11:57 AM EDT Authorizing ProviderResult TypeResult StatusDavid Last Moffett MDECG ORDERABLES Final ResultPerforming OrganizationAddressCity/State/ZIP CodePhone Number TRACEMASTERVUE * APTT (07/05/2025 10:15 AM EDT)ComponentValueRef RangeTest MethodAnalysis Time Performed AtPathologist RtfjbmccyAIZD3245 - 37 sec07/05/2025 11:07 AM EDT [facility] (Source)Anatomical Location / LateralityCollection Method / VolumeCollection TimeReceived TimeBloodVenous blood / UnknownVenipuncture / Ysnfihh9807/05/2025 10:15 AM EDT1 10:18 AM EDT Narrative Authorizing ProviderResult TypeResult StatusMohamed Sonia José WIN BLOOD ORDERABLESFinal ResultPerforming OrganizationAddressCity/State/ZIP CodePhone Number [address] [place] [address], [place] * Protime-INR (07/05/2025 10:15 AM EDT)ComponentValueRef RangeTest Method Analysis TimePerformed AtPathologist GhnustaimGOTIUYN54.29.8 - 13.2 sec 07/05/2025 11:07 AM EDKETTERING HEALTH SPRINGFIELDINR1.00.9 - 1.2 07/05/2025 11:07 AM EDFire[facility] (Source) Anatomical Location / LateralityCollection Method / VolumeCollection Time Received TimeBloodVenous blood / UnknownVenipuncture / Npvepne3107/05/2025 10:15 AM EDT1 10:18 AM EDT Narrative Authorizing ProviderResult TypeResult StatusMohamed Sonia José WIN BLOOD ORDERABLESFinal ResultPerforming OrganizationAddressty/State/ZIP CodePhone Number [address] [place] [address], [place] * CBC (07/05/2025 10:15 AM EDT)ComponentValueRef RangeTest MethodAnalysis Time Performed AtPathologist SignatureWBC8.44 - 11 x10E9/L1 1:25 PM EDT [facility] LABORATORYRBC Count4.614.1 - 5.7 X10E12/L1 1:25 PM [facility] YNCMPYRUQWHzndollyvr77.813 - 17 g/dL 07/05/2025 1:25 PM [facility] UAJKGLOHLHLkqjgrwjmb80.239 - 50 %07/05/2025 1:25 PM [facility] QCZRXYLQKRARJ1707 - 100 fL 07/05/2025 1:25 PM [facility] CFBGPBNIOEZUO82.927 - 34 pg 07/05/2025 1:25 PM [facility] WIIEXITXPIZWTK87.832 - 36 g/dL 07/05/2025 1:25 PM [facility] AYHOSNACBXUNA04.511.5 - 15 % 07/05/2025 1:25 PM [facility] LABORATORYPlatelet Comoo774177 - 450 X10E9/L1 1:25 PM [facility] LABORATORYMPV8.67 - 12 fL07/05/2025 1:25 PM [facility] LABORATORYSpecimen (Source)Anatomical Location / LateralityCollection Method / VolumeCollection TimeReceived TimeBloodVenous blood / UnknownVenipuncture / Srhriih5107/05/2025 10:15 AM EDT1 10:18 AM EDT Narrative Authorizing ProviderResult TypeResult StatusMohamed Sonia WIN BLOOD ORDERABLESFinal ResultPerforming OrganizationAddressCity/State/ZIP CodePhone Number [facility] [address] [place] [address], * (ABNORMAL) Basic Metabolic Panel (07/05/2025 10:15 AM EDT)ComponentValueRef RangeTest MethodAnalysis TimePerformed AtPathologist FochazskvHFQKGI219225 - 146 mmol/L1 1:50 PM [facility] LABORATORYPOTASSIUM 3.83.5 - 5.0 mmol/L1 1:50 PM [facility] ZVKLFUTT55330 - 109 mmol/L1 1:50 PM [facility] LABORATORYCARBON MLWADEW6452 - 32 mmol/L1 1:50 PM [facility] LABORATORYANION UID473 - 15 mmol/L1 1:50 PM [facility] LABORATORYBLOOD UREA EUPJNDYO389 - 23 mg/dL07/05/2025 1:50 PM [facility] LABORATORYCREATININE1.130.60 - 1.30 mg/dL 07/05/2025 1:50 PM [facility] LABORATORYComment:METHOD TRACEABLE TO IDMS AXPNNOAZUPEZIDQ795(H)65 - 99 mg/dL07/05/2025 1:50 PM EDT [facility] LABORATORYCALCIUM8.78.5 - 10.5 mg/dL07/05/2025 1:50 PM [facility] LABORATORYEGFR Non-Race Demlubqyn12>=60 ml/min/1.73sq.m1 1:50 PM [facility] Comment: Reported eGFR is based on the CKD-EPI 2020 equation that does not use a race coefficient. Specimen (Source)Anatomical Location / LateralityCollection Method / Volume Collection TimeReceived TimeBloodVenous blood / UnknownVenipuncture / Unknown 07/05/2025 10:15 AM EDT1 10:18 AM EDT Narrative Authorizing ProviderResult TypeResult StatusMohamed Sonia Kumar MDLAB BLOOD ORDERABLESFinal ResultPerforming OrganizationAddressCity/State/ZIP CodePhone Number [facility] [address] [place] [address], from Last 3 Months Insurance Advance Directives * Full Code (Latest Code Status on File) Date ActivatedDate InactivatedComments12/16/2021 11:22 AM12/16/2021 5:00 PM Care Teams Team MemberRelationshipSpecialtyStart DateEnd Date Pepper Sexton, DIRECT SUPPORT PROFESSIONAL-SUPERVISOR LANDSCAPE PCP - GeneralNurse Practitioner05/10/22
--- OUTSIDE RECORDS SUMMARY | 2025-08-03 11:49 | XMS_ITS | Clinical Summary ---
Author Organization [facility] Address [address] [place] [address] Care Team Providers Care Technical Administrator Name Role Phone Delmer Bryan MD Primary Care Provider [phone] Social History Tobacco UseTypesPacks/DayYears UsedDateSmoking Tobacco: Never AssessedUT Safety & EnvironmentAnswerDate RecordedFear of Current or Ex-PartnerNot on file 11/14/2023Emotionally AbusedNot on file4Physically AbusedNot on file 11/14/2023Sexually AbusedNot on file4Physically or Sexually AbusedNot on file11/14/2023Sex and Gender InformationValueDate RecordedSex Assigned at BirthNot on fileLegal TgoXnml1003/21/2022 10:47 PM EDTGender IdentityNot on file Sexual OrientationNot on file Last Filed Vital Signs Vital SignReadingTime TakenCommentsBlood Pressure--Pulse--Temperature-- Respiratory Rate--Oxygen Saturation--Inhaled Oxygen Concentration--Pylvsc534 kg (246 lb)01/11/2022 8:45 AM OQGXisxlu391.3 cm (5' 9 )01/11/2022 8:45 AM EDTBody Mass Index36.33001/11/2022 8:45 AM EDT Plan of Treatment Health MaintenanceDue DateLast DoneCommentsCT Irmrglrbkoea68/17/1968Colonoscopy 1967Colorectal Cancer Kgityswmq30/17/1968FIT-DNA1967FIT1967 FOBT1967 9717Erngmlllvxgsq23/17/1968Depression Hczrsksoq33/17/1980Hepatitis B Vaccines (1 of 3 - 19+ 3-dose series)1986Adult Qfwdaim1311/09/1989Zoster Vaccines (1 of 2)2017COVID-19 Vaccine (1 - season)2025 Influenza Vaccine (#1)2025HIB VaccinesAged OutNo longer eligible based on patient's age to complete this topicHPV VaccinesAged OutNo longer eligible based on patient's age to complete this topicIPV VaccinesAged OutNo longer eligible based on patient's age to complete this topicMeningococcal B VaccineAged OutNo longer eligible based on patient's age to complete this topicMeningococcal VaccineAged OutNo longer eligible based on patient's age to complete this topic Pneumococcal Vaccine: Pediatrics (0 to 5 Years) and At-Risk Patients (6 to 64 Years)Aged OutNo longer eligible based on patient's age to complete this topic Rotavirus VaccinesAged OutNo longer eligible based on patient's age to complete this topic Insurance Care Teams Team MemberRelationshipSpecialtyStart DateEnd Date Delmer Bryan MD [address] [place] [address] PCP - [facility]05/14/22
--- OUTSIDE RECORDS SUMMARY | 2025-08-03 11:49 | XMS_ITS | Clinical Summary ---
Author Organization [facility] Address [address] [place] [address], [address] [place] [address] Care Team Providers Care Set And Exhibit Designer Name Role Phone Unavailable Primary Care Provider Unavailabl e Social History Tobacco UseTypesPacks/DayYears UsedDateSmoking Tobacco: Never AssessedSex and Gender InformationValueDate RecordedSex Assigned at BirthNot on fileLegal Sex Male11/02/2012 11:32 AM ESTGender IdentityNot on fileSexual OrientationNot on file Plan of Treatment Not on file
--- OUTSIDE RECORDS SUMMARY | 2025-08-03 11:50 | XMS_ITS | Patient Health Record ---
Author Organization [facility] in [place] Address [address] [place] [address] Care Team Providers Care Show Design Supervisor Name Role Phone Pepper Sexton CNP Primary Care Provider Unavail able Allergies No Known Allergies Results Component Value Reference Range Notes US renal bladder Reviewed date:02/08/2025 12:45:10 PM Interpretation: Performing Lab: Notes/Report: Source Facility: [place] [address] Ultrasound Report Signed Patient: ABRAM GUILLAUME MR#: [id number] : 1965 Acct:[id number] Age/Sex: 59 / M ADM Date: 02/07/25 Loc: [place] 220-[address]: Edis Conte M.D. Ordering Physician: Edis Conte M.D. Date of Service: 02/08/25 Procedure(s): US renal bladder Accession Number(s): [id number] cc: Pepper Sexton FOAM FABRICATOR; Edis Conte M.D. [place] [address] Patient Name: ABRAM GUILLAUME MRN: [id number] date: 1965 Sex: M Assigned Patient Location: [place] Current Patient Location: [place] Accession/Order Number: [id number] Exam Date: 02/08/2025 11:53 Report Date: 02/08/2025 [...] Wong M.D. 02/08/2025 11:55 AM Dictation Location: [place] [address] Electronically authenticated by: [id number] Y Date: 02/08/2025 11:55 Dictated By: Pito Wong M.D. Signed By: 02/08/25 1157 DD/ 1155 TD/TT: Railroad Yard Worker: CRP Reviewed date:02/09/2025 08:43:40 PM Interpretation: Performing Lab: Notes/Report: [facility] , C Reactive Protein 14.75 <=0.50 mg/dL Performing Lab:see noteML - [facility] LBMAGNESIUM Reviewed date:02/09/2025 08:43:40 PM Interpretation: Performing Lab: Notes/Report: [facility] ,Magnesium1.11.8-2.4 mg/dLPerforming Lab:see noteML - [facility] LB Occult Blood* Reviewed date:02/09/2025 08:43:40 PM Interpretation: Performing Lab: Notes/Report: [facility] ,Occult BloodNegativePerforming Lab:see noteML - [facility] LB MAGNESIUM Reviewed date:02/09/2025 08:43:40 PM Interpretation: Performing Lab: Notes/Report: [facility] ,Magnesium1.01.8-2.4 mg/dLPerforming Lab:see noteML - [facility] LB MAGNESIUM Reviewed date:02/09/2025 08:43:40 PM Interpretation: Performing Lab: Notes/Report: [facility] ,Magnesium2.11.8-2.4 mg/dLPerforming Lab:see note - [facility] LB CRP Reviewed date:02/10/2025 09:13:46 AM Interpretation: Performing Lab: Notes/Report: [facility] ,C Reactive Ridnqgd34.87<=0.50 mg/dLPerforming Lab:see noteML - [facility] LBMAGNESIUM Reviewed date:02/10/2025 09:13:46 AM Interpretation: Performing Lab: Notes/Report: [facility] ,Magnesium1.61.8-2.4 mg/dLPerforming Lab:see note - [facility] LBUS extremity nonvascular LT Reviewed date:02/10/2025 01:35:41 PM Interpretation: Performing Lab: Notes/Report: Source Facility: [place] [address] Ultrasound Report Signed Patient: ABRAM GUILLAUME MR#: [id number] : 1965 Acct:[id number] Age/Sex: 59 / M ADM Date: 02/07/25 Loc: MS 220-[address]: Edis Conte M.D. Ordering Physician: Edis Conte M.D. Date of Service: 02/10/25 Procedure(s): US extremity nonvascular LT Accession Number(s): [id number] cc: Pepper Sexton FOAM FABRICATOR; Edis Conte M.D. [place] [address] Patient Name: ABRAM GUILLAUME MRN: [id number] date: 1965 Sex: M Assigned Patient Location: MS Current Patient Location: [place] Accession/Order Number: [id number] Exam Date: 02/10/2025 11:13 Report Date: 02/10/2025 [...] Duarte M.D. 02/10/2025 11:20 AM Dictation Location: [place] [address] Electronically authenticated by: [id number] Y Date: 02/10/2025 11:20 Dictated By: Ivette Duarte M.D. Signed By: 02/10/25 1122 DD/ 1120 TD/TT: Railroad Yard Worker:CT lower leg LT wo/w con Reviewed date:02/10/2025 01:35:41 PM Interpretation: Performing Lab: Notes/Report: Source Facility: [place] [address] CT Scan Report Signed Patient: ABRAM GUILLAUME MR#: [id number] : 1965 Acct:[id number] Age/Sex: 59 / M ADM Date: 02/07/25 Loc: MS 220-[address]: Edis Conte M.D. Ordering Physician: Edis Conte M.D. Date of Service: 02/10/25 Procedure(s): CT lower leg LT wo/w con Accession Number(s): [id number] cc: Pepper Sexton NP [place] [address] Patient Name: ABRAM GUILLAUME MRN: [id number] date: 1965 Sex: M Assigned Patient Location: MS Current Patient Location: MS Accession/Order Number: [id number] Exam Date: 02/10/2025 09:18 Report Date: 02/10/2025 [...] is subcutaneous edema and fluid throughout the khlsu-cf-llzi, greater anteriorly toward the knee. This is [...] Duarte M.D. 02/10/2025 9:38 AM Dictation Location: [facility]02 Electronically authenticated by: [id number] Y Date: 02/10/2025 09:38 Dictated By: Ivette Duarte M.D. Signed By: 02/10/2540 DD/ 7 TD/TT: Railroad Yard Worker:ERNIE Reviewed date:02/11/2025 08:38:04 PM Interpretation: Performing Lab: Notes/Report: [facility] ,C Reactive Htjurvt63.79<=0.50 mg/dLPerforming Lab:see noteML - [facility] LBMAGNESIUM Reviewed date:02/11/2025 08:38:04 PM Interpretation: Performing Lab: Notes/Report: [facility] ,Magnesium1.71.8-2.4 mg/dLPerforming Lab:see noteML - [facility] LB Reason For Referral No Information Medications Medication SIG (Take, Route, Frequency, Duration) Notes Start Date End Date Status Magnesium 400 MG as directed Orally 500mg ActiveLevothyroxine Sodium 100 MCG1 tablet in the morning on an empty stomach Orally Once a day; Duration: 30 day(s)ActiveNaltrexone 380 MGas directed Intramuscular4.5ActiveMontelukast Sodium 10 MG1 tablet Orally Once a dayActive Valsartan 320 MGas directed OrallyActiveOmeprazole 40 MG1 capsule 30 minutes before morning meal Orally Once a day; Duration: 30 day(s)ActiveAlbuterol Sulfate HFA 108 (90 Base) MCG/ACT2 puffs as needed Inhalation every 4 hrsActive Doxepin HCl 10 MG1 capsule at bedtime Orally Once a day; Duration: 30 day(s) ActiveamLODIPine Besylate 10 MG1 tablet Orally Once a day; Duration: 30 day(s) ActiveGabapentin 600 MG1 tablet Orally Once a day; Duration: 30 day(s)Active Social History Tobacco Use: Social History Observation Description Date Details (start date - stop date) Never Smoker NA - NA Tobacco Use/Smoking Question Answer Notes Patient is a nonsmoker Problems Problem Type SNOMED Code ICD Code Onset Dates Problem Status W/U Status Risk Notes Problem Hypomagnesemia (098384054) Hypomagnesemia (E83.42) ActiveconfirmedProblemUncomplicated asthma (disorder) (753795745)Unspecified asthma, uncomplicated (J45.909)ActiveconfirmedProblemHypertension (03118416)HTN (hypertension) (I10)Activeconfirmed Plan Of Treatment No Information Insurance Providers Payer Name Payer Address Payer Phone Subscriber Number Group Number Insured Name Patient Relationship to Insured Coverage Start Date Coverage End Date [employer] ACCESS PPO PLUS LOCAL PLAN [address] [place] [address] [id number] Abram Guillaume Self - patient is the insured 3 Medical (General) History Medical History History ICD Code Asthma?: Singulair and Albuterol RX by P CP; uses albuterol 1-2x/week Contact reaction ? : extensive rash to left lower leg (small section on right lower leg); present for 10 years - after having metal inserted to LL leg/foot; not improved with dupixentAllergic contact dermatitis: 08/30/2023 ACDS Core Series Patch #80 testin+ Cocoamidopropyl betaine - AVOID; ? reaction to propylene glycol, DMAPA, Decyl glucoside; others non reactive on the fifth day History of eczema: resolved after Dupixent x 1 yearAthritisFibromylgiaThyroid Surgical History Surgery Date(Month/Year) Hernia X2
--- OUTSIDE RECORDS SUMMARY | 2025-08-03 11:50 | XMS_ITS | Clinical Summary ---
Author Organization [facility] Address [address] [place] [address] Care Team Providers Care Jig And Fixture Maker Name Role Phone Anastacio Hinojosa MD Primary Care Provider Pepper Sexton NP Unavailable [phone] Allergies No known active allergies Medications MedicationSigDispense QuantityRefillsLast FilledStart DateEnd DateStatus albuterol HFA (Ventolin HFA) 90 mcg/act inhaler Indications:Chronic Obstructive Pulmonary DiseaseInhale 2 puffs every 6 (six) hours if needed for wheezing or shortness of breath 18 g 4Active pravastatin (Pravachol) 20 MG tablet Take 1 tablet by mouth DailyActive spironolactone (Aldactone) 50 MG tablet Take 50 mg by mouth DailyActive Magnesium Glycinate 100 MG capsule Take 100 mg by mouth in the morning and 100 mg in the evening and 100 mg before bedtime.5Active Eliquis 5 MG tablet TAKE 2 TABLETS BY MOUTH TWICE DAILY FOR 4 DAYS and then TAKE 1 TABLET BY MOUTH TWICE DAILY xfeqalanjc64/23/2025Active budesonide-formoterol (Symbicort) 160-4.5 MCG/ACT inhaler Indications:Chronic bronchitis, unspecified chronic bronchitis type (HCC)Inhale 2 puffs in the morning and 2 puffs before bedtime. Rinse mouth with water after use to reduce aftertaste and incidence of candidiasis. Do not swallow. 10.2 g 5Active valsartan (Diovan) 320 MG tablet Indications:Essential hypertension, benignTake 1 tablet (320 mg) by mouth Daily 90 tablet 5Active levothyroxine (Synthroid, Levoxyl) 112 MCG tablet Indications:Hypothyroidism, unspecified typeTake 1 tablet (112 mcg) by mouth in the morning. Take before meals. 90 tablet 5Active omeprazole (PriLOSEC) [address] capsule Indications:Gastroesophageal reflux disease, unspecified whether esophagitis presentTake 1 capsule (40 mg) by mouth in the morning. Take before meals. Do not crush or chew. 90 capsule 5Active amLODIPine (Norvasc) 10 MG tablet Indications:Essential hypertension, benignTake 1 tablet (10 mg) by mouth Daily 90 tablet 5Active nebivolol (Bystolic) 10 MG tablet Indications:Essential hypertension, benignTake 1 tablet (10 mg) by mouth Daily 90 tablet 5Active montelukast (Singulair) 10 MG tablet Indications:Atopic dermatitis, unspecified typeTake 1 tablet (10 mg) by mouth at bedtime 90 tablet 5Active acetaminophen (Tylenol 8 Hour) 650 MG ER tablet Take 650 mg by mouth every 8 (eight) hours if neededActive doxepin (SINEquan) 10 MG/ML solution Indications:FibromyalgiaTake 10 mL (100 mg) by mouth at bedtime 900 mL 5Active Calamine-Zinc Oxide 8-8 % lotion Apply 1 Application topically Daily as olwger975Active gabapentin (Neurontin) 600 MG tablet Indications:Restless legs syndromeTake 1 tablet (600 mg) by mouth in the morning and 1 tablet (600 mg) before bedtime. 180 tablet 5Active Active Problems ProblemNoted DateDiagnosed AegrVspcjpeeok35/16/2025 Assessment & Plan (04/07/2025 9:01 AM EDT): Doxy No resp distress, no wheeze Acute gout of left hand04/07/2025 Assessment & Plan (05/06/2025 8:57 AM EDT): Last apppt we ordered voltaren gel and check uric acid ( Uric acid level 7.2) Assessment & Plan (04/07/2025 9:02 AM EDT): No steroids d/t eliquis No NSAIDS d/t BP Will trial voltaren gel and check uric acid Chronic deep vein thrombosis (DVT) of left thigh04/01/2025Varicose veins of lower extremity with varicose ulcer and uislen8504/01/2025 Assessment & Plan (04/07/2025 5:57 AM EDT): Reviewed vascular notes Chronic deep vein thrombosis (DVT) of popliteal vein of left lower extremity 04/01/2025Electrolyte zkxaqhuhmcw21/25/2025ellulitis of left lower extremity 02/17/2025 Assessment & [...] re assessed Elevate foot MARITZA (acute kidney injury)02/17/2025 Assessment & Plan (02/17/2025 7:28 PM EDT): Returning to baseline Chronic kidney disease, stage 3a01/06/2025 Assessment & Plan (02/17/2025 7:26 PM EDT): Sees nephrology Assessment & Plan (01/06/2025 6:12 AM EDT): Sees nephrology Morbid (severe) obesity due to excess jcysygdn82/15/2025 Assessment & Plan (05/06/2025 6:12 AM EDT): [...] Recommend weight watchers Gastro-esophageal reflux disease without vrjhsoexelm40/15/2025 Assessment & Plan (05/06/2025 6:12 AM EDT): [...] PPI therapy Body mass index (BMI) 37.0-37.9, adult5COPD mixed type10/07/2024 Assessment & Plan (10/07/2024 9:39 AM EST): Current meds: albuterol prn and symbicort Sporadic use of symbicort, recommend regular use Acute gastric ulcer without hemorrhage or nwmntoueuxq16/17/2024 Overview (07/09/2024): EGD 07/09/24 Fiqkqdiju26/14/2024Needs flu shot07/06/2024 Assessment & Plan (07/06/2024 10:30 AM EDT): declines COPD with acute fqxxdgplwakz58/12/2024 Assessment & Plan (05/06/2025 8:57 AM EDT): Is currently not taking blood thinner Will add medrol dose pack and atb He was alternating between albuterol and symbicort I did explain how each works and symbicort is twice a day EVERY day and albuterol prn Fu if not better Assessment & Plan (05/04/2024 11:10 AM EDT): Add steroids and atb Fu if not better Pre-venbocyi24/18/2024 Assessment & Plan (10/07/2024 9:17 AM EST): Will check A1c test: recent lab had elevated glucose A1c 5.6%, 10/07/24 Carpal tunnel syndrome on both sides12/29/20237081Zgeqcqjlggk92/07/2024 Overview (02/02/2024): HST not available at time of appointment for review. Patient likely has underlying GURVINDER given morning headaches, prone to dozing off, and body habitus. HST 04/19/21 revealed AHI of 37. He has not had titration due to cost of study. GURVINDER (obstructive sleep apnea)12/29/2023 Assessment & Plan (10/07/2024 9:38 AM EST): [...] dx, however does not wear PAP Pinched nerve11/26/2023aresthesia of both hands11/26/2023ervical radiculopathy 11/26/2023ough in adult11/26/2023Venous engchs1611/26/2023Left leg swelling 11/26/2023 Assessment & Plan (03/08/2025 8:56 AM EDT): As per cellulitis entry Degenerative disc disease, keicxqdk41/05/2024 Overview (02/02/2024): Patient with chronic neck pain bilaterally. He follows with a chiropractor and per chart review hasdegenerative changes in his cervical spine. He states it has been over 5 years or more since he hashad an MRI and now cannot have MRI [...] pain. 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 Atopic qclnhqtcyt84/05/1146Eimgmvdsd10/05/2024Orthopedic hardware present 11/26/2023Marijuana use11/26/2023 Assessment & Plan (01/06/2025 6:14 AM EDT): Gummies and smoking Assessment & Plan (10/07/2024 9:40 AM EST): Gummies and smoking Screening for prostate lenbna7411/26/2023 Overview (03/17/2025): PSA: 03/16 1.26 03/17/25 1.49 Assessment & Plan (01/06/2025 6:14 AM EDT): Check labs in 03/17 Abnormal stress test08/19/20235517Kaqjxaaqf63/27/1108Hlaxctlmofwj66/27/2023Essential hypertension, lyuddi6908/19/2023 Assessment & Plan (05/06/2025 8:57 AM EDT): [...] dose Fu in 3 months, check labs Ygqpmklfcyopbv24/27/2023 Assessment & Plan (01/06/2025 6:15 AM EDT): [...] AM EST): Cont meds, check labs Restless legs08/19/2023Nicotine erkjycvclc47/27/2023 Assessment & Plan (05/06/2025 6:13 AM EDT): The patient has been advised of the risks of continued smoking: stroke, NE, all forms of cancer, lung disease, and . Options for quitting smoking include: cold turkey, hypnosis, acupuncture, nicotine replacement meds(gum, lozenges, and patches), Buproprion, and Varenicline. At this time pt is encouraged to evaluate their goals for wanting to quit smoking, and reach out toprovider when ready to start this process Assessment & Plan (02/17/2025 7:27 PM EDT): The patient has been advised of the risks of continued smoking: stroke, NE, all forms of cancer, lung disease, and . Options for quitting smoking include: cold turkey, hypnosis, acupuncture, nicotine replacement meds(gum, lozenges, and patches), Buproprion, and Varenicline. At this time pt is encouraged to evaluate their goals for wanting to quit smoking, and reach out toprovider when ready to start this process Pdmupocakjrfp96/27/5626Yjmjgpvksieoph26/27/2023 Assessment & Plan (02/17/2025 7:26 PM EDT): [...] No acute muscle/neuro findings on today's exam Lhvomzikcsyelc81/26/2023 Assessment & Plan (01/06/2025 6:13 AM EDT): On statin therapy Labs yearly and prn dose changes Assessment & Plan (10/07/2024 5:44 AM EST): On statin therapy Labs yearly and prn dose changes Assessment & Plan (02/26/2024 11:48 AM EDT): Attempt to cut down on portion sizes, carbs, no meds at this time Pulmonary imbeuuedcrbt51/10/2022 Assessment & Plan (10/07/2024 5:42 AM EST): Per ECHO 02/12 Does not use PAP Current meds: aldactone, amlodipine, valsartan and bystolic Assessment & Plan (05/04/2024 12:52 PM EDT): Per ECHO 02/12 Does not use PAP Assessment & Plan (11/26/2023 10:06 AM EST): As per ECHO findings Stable at this time LV pzvjcrmkjyb76/18/2022 Assessment & Plan (05/04/2024 12:50 PM EDT): As per cardiology Resolved Problems ProblemNoted DateDiagnosed DateResolved DateNeeds flu shot Pre-operative scnbqleiu60/ Assessment & Plan (05/26/2024 7:27 AM EDT): Hx of HTN: well controlled Low magnesium: still taking TID, trying to avoid use of PPI, but difficult GURVINDER: non compliant with PAP use ECHO 11/15 EKG: reviewed CR 1.60 w Gfr 50 Magnesium: 1.4 on 04/20/24. Cleared for surgery from cardiac/medical standpoint Simple chronic gitpogfmwc86 Assessment & Plan (05/04/2024 11:10 AM EDT): Will increase dose on ICS/LABA to symbicort at 160/4.5 BID Stop the 80/4.5 Fu in 6 weeks for recheck Recently quit smoking great work!!! Obesity (BMI 30-39.9)Paresthesia Overview (02/02/2024): Patient notes that he has developed increase in right hand pain mainly to 4th and 5th digit that has worsened over the past 2 years. He states this is sharp and travels from his elbow to his 5th digit. His 5th digit is numb at times and his glass glazier is weak as well likely consistent with ulnar nerve process. 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 Carpal tunnel vectsvat14 Overview (02/02/2024): Patient has ongoing numbness and tingling to bilateral hands, sometimes worse on the left. He has worn wrist splints in the past but no longer uses these. He has not trialed injections. EMG of the BUE 12/2019 revealed bilateral median neuropathy. He is noting some increase pain to his hands with even performing hand washing. He is interested in surgery. Brvnyfd31GERD (gastroesophageal reflux disease)08/19/2023 10/07/2024 Assessment & Plan (07/06/2024 10:28 AM EDT): Has upcoming scope with GI, has been off his PPI/H9fcrljjve for up coming EGD etc Continue with GI Assessment & Plan (05/04/2024 12:01 PM EDT): Did well on supervisor intermediates PPI, however severe hypomagnesiumemia Would like to [...] to stop if magnesium is low Encounters DateTypeDepartmentCare AkxeYaqubloklpz16/14/2025 8:20 AM EDTOffice Visit [facility] [address] [place] [address] Pepper Sexton NP Essential hypertension, benign (Primary Dx); Gastro-esophageal reflux disease without esophagitis; Morbid (severe) obesity due to excess calories ([facility]); Cigarette nicotine dependence without complication; Acute gout of left hand, unspecified cause; COPD with acute exacerbation ([facility]); Restless legs mnhyxflo77/14/2025Clinisync Result Encounter [facility] External Department Unsolicited Provider, Generic External Data 5Bamboo flowsheet [facility] [address] [address] Pepper Sexton NP from Last 3 Months Family History Medical HistoryRelationNameCommentsHypertensionFatherRelationNameStatusComments FatherDeceasedMotherAlive Social History Tobacco UseTypesPacks/DayYears UsedDateSmoking Tobacco: FormerCigarsSmokeless Tobacco: Never Tobacco Cessation:Counseling Given: Not Answered Alcohol UseStandard Drinks/WeekCommentsYes0 (1 standard drink = 0.6 oz pure alcohol)caffeine: 1-2 cups per daySocial Connection and Isolation PanelAnswer Date RecordedIn a typical week, how many times do you talk on the phone with family, friends, or neighbors?Once a week11/25/2023How often do you get together with friends or relatives?Three times a week11/25/2023How often do you attend mormonism or scientologist services?Never11/25/2023o you belong to any clubs or organizations such as mormonism groups, unions, fraternal or athletic groups, or school groups?Yes11/25/2023How often do you attend meetings of the clubs or organizations you belong to?Never11/25/2023re you , , , , never , or living with a partner?Ljeitek4211/25/2023UDIT-C AnswerDate RecordedQ1: How often do you have a drink containing alcohol?4 or more times a week11/25/2023Q2: How many drinks containing alcohol do you have on a typical day when you are drinking?5 or 6011/25/2023Q3: How often do you have six or more drinks on one occasion?Vymeug4311/25/2023Overall Financial Resource Strain (CARDIA)AnswerDate RecordedHow hard is it for you to pay for the very basics like food, housing, medical care, and heating?Somewhat hard11/25/2023 PHQ-2AnswerDate RecordedPatient Health Questionnaire-2 Zlmkw020Finmountainstar healthcare [place] [facility] - Occupational Stress QuestionnaireAnswerDate RecordedDo you feel stress - tense, restless, nervous, or anxious, or unable to sleep at night because yourmind is troubled all the time - these days?To some tctwue9011/25/2023Exercise Vital SignAnswerDate RecordedOn average, how many days per week do you engage in moderate to strenuous exercise (like a brisk walk)?5 days11/25/2023On average, how many minutes do you engage in exercise at this level?150+ min11/25/2023Hunger Vital SignAnswerDate RecordedWithin the past 12 months, you worried that your food would run out before you got the money to buy more.Never true11/25/2023Within the past 12 months, the food you bought just didn't last and you didn't have money to get more.Never true11/25/2023RAPARE - TransportationAnswerDate RecordedIn the past 12 months, has lack of transportation kept you from medical appointments or from getting medications?No 11/25/2023In the past 12 months, has lack of transportation kept you from meetings, work, or from getting things needed for daily living?No11/25/2023 Housing Stability Vital SignAnswerDate RecordedIn the last 12 months, was there a time when you were not able to pay the mortgage or rent on time?No11/25/2023In the last 12 months, how many places have you lived?In the last 12 months, was there a time when you did not have a steady place to sleep or slept in ashelter (including now)?No11/25/2023Sex and Gender InformationValueDate RecordedSex Assigned at BirthNot on fileLegal YjrTuyp7712/05/2022 11:33 PM EDT Gender IdentityNot on fileSexual OrientationNot on file Last Filed Vital Signs Vital SignReadingTime TakenCommentsBlood Lhtevbpv204/9405/06/2025 8:25 AM EDT Hkmpw633505/06/2025 8:25 AM ORIGqymkdvimxf95.6 ??C (97.8 ??F)05/06/2025 8:25 AM EDTRespiratory Pfjj507105/06/2025 8:25 AM EDTOxygen Ntvugzurgk45%05/06/2025 8:25 AM EDTInhaled Oxygen Concentration--Avwauz782 kg (268 lb 9.6 oz)05/06/2025 8:25 AM GDUUqygao809.3 cm (5' 9 )01/06/2025 9:06 AM EDTBody Mass Index39.67001/06/2025 9:06 AM EDT Plan of Treatment Not on file Procedures Procedure NamePriorityDate/TimeAssociated DiagnosisCommentsALL MAGNESIUMRoutine 05/06/2025 12:37 PM EDT from Last 3 Months Results * (ABNORMAL) ALL MAGNESIUM (05/06/2025 12:37 PM EDT)ComponentValueRef RangeTest MethodAnalysis TimePerformed AtPathologist SignatureMAGNESIUM0.7(LL)1.8 - 2.4 mg/dLTBHComment:RESULTS CALLED TOSpecimen (Source)Anatomical Location / LateralityCollection Method / VolumeCollection TimeReceived Time05/06/2025 12:37 PM EDT05/06/2025 12:38 PM EDT Narrative [facility] - 05/06/2025 1:03 PM EDT Authorizing ProviderResult TypeResult StatusGeneric External Data Provider CLINISYNCFinal ResultPerforming OrganizationAddressCity/State/ZIP CodePhone Number [facility] from Last 3 Months Insurance Care Teams Team MemberRelationshipSpecialtyStart DateEnd Date Anastacio Hinojosa MD PCP - GeneralFamily Medicine11/26/23 Pepper Sexton NP Nurse PractitionerFamily Medicine11/26/23
--- OUTSIDE RECORDS SUMMARY | 2025-08-03 11:50 | XMS_ITS | Encounter Summary ---
Author Organization [facility] Address [facility] [id number] [address] [place] [address] Care Team Providers Care Brake Repairer Hydraulic Name Role Phone Pepper Sexton Primary Care Provider Encounter Details DateTypeDepartmentCare Team (Latest Contact Info)Lqltzzaotmx65/30/2025Travel Social History Tobacco UseTypesPacks/DayYears UsedDateSmoking Tobacco: NeverSmokeless Tobacco: NeverAlcohol UseStandard Drinks/WeekCommentsYes4 (1 standard drink = 0.6 oz pure alcohol)social/recreationalChildcareAnswerDate RecordedChildcareUnknown 03/04/2019EmploymentAnswerDate UemapaeeWrkvpdqkdvHdkpaka29/12/2019Sex and Gender InformationValueDate RecordedSex Assigned at BirthNot on fileLegal SexMale 04/28/2015 11:51 AM EDTGender IdentityNot on fileSexual OrientationNot on file documented as of this encounter Plan of Treatment DateTypeDepartmentCare Team (Latest Contact Info)Rogubuvyelw55/05/2026 10:00 AM ESTOffice Visit [facility] [place] [address] Vanessa Bedolla APRN-POULTRYMAN [address] [address] documented as of this encounter Visit Diagnoses Not on filedocumented in this encounter Care Teams Team MemberRelationshipSpecialtyStart DateEnd Date Pepper Sexton APRN-ROSI PCP - GeneralNurse Practitioner05/10/22documented as of this encounter
--- OUTSIDE RECORDS SUMMARY | 2025-08-03 11:50 | XMS_ITS | Patient Health Record ---
Author Organization [facility] Address [address] [place] [address] Care Team Providers Care Ux Visual Designer Name Role Phone Reny Branch Unavailable [phone] Reason For Referral No Information Problems Problem Type SNOMED Code ICD Code Onset Dates Problem Status W/U Status Risk Notes Problem Pain in limb (90014965) Pain of left leg (M79.605) ActiveconfirmedProblemCellulitis of lower limb (530422304)Cellulitis of left lower extremity (L03.116)Activeconfirmed Encounters Encounter Location Date Provider Diagnosis [facility] [address] [place] [address] 02/10/2025 Reny Branch Cellulitis of left lower extremity L03.116 and Pain of left leg M79.605 Assessments Encounter Date Diagnosis (ICD Code) Assessment Notes Treatment Notes Treatment Clinical Notes Section Notes 02/10/2025 Pain of left leg (ICD-10 - M79.6 05) 5Cellulitis of left lower extremity (ICD-10 - L03.116) Plan Of Treatment No Information Insurance Providers Payer Name Payer Address Payer Phone Subscriber Number Group Number Insured Name Patient Relationship to Insured Coverage Start Date Coverage End Date [employer] [address] [place] [address] [id number] Mariano Sheehanelf - patient is the [id number] 2024
--- OUTSIDE RECORDS SUMMARY | 2025-08-03 11:52 | XMS_ITS | CCD ---
Author Organization [facility] Care Team Providers Care Accountant Manager Name Role Phone AICHHOLZ, ESTHETICIAN SPA PEPPER Primary Care Unavailable AICHHOLZ, ESTHETICIAN SPA PEPPER Consulting Unavailable AICHHOLZ, ESTHETICIAN SPA PEPPER Attending Unavailable AICHHOLZ, ESTHETICIAN SPA PEPPER Admitting Unavailable AICHHOLZ, ESTHETICIAN SPA PEPPER Consulting Unavailable AICHHOLZ, ESTHETICIAN SPA PEPPER Attending Unavailable AICHHOLZ, ESTHETICIAN SPA PEPPER Admitting Unavailable AICHHOLZ, ESTHETICIAN SPA PEPPER Primary Care Unavailable AICHHOLZ, ESTHETICIAN SPA PEPPER Primary Care Unavailable DR CRIS KLINE V Consulting Unavailable AICHHOLZ, ESTHETICIAN SPA PEPPER Attending Unavailable AICHHOLZ, ESTHETICIAN SPA PEPPER Admitting Unavailable AICHHOLZ, ESTHETICIAN SPA PEPPER Consulting Unavailable AICHHOLZ, ESTHETICIAN SPA PEPPER Primary Care Unavailable AICHHOLZ, ESTHETICIAN SPA PEPPER Consulting Unavailable AICHHOLZ, ESTHETICIAN SPA PEPPER Attending Unavailable AICHHOLZ, ESTHETICIAN SPA PEPPER Admitting Unavailable AICHHOLZ, ESTHETICIAN SPA PEPPER Primary Care Unavailable AICHHOLZ, ESTHETICIAN SPA PEPPER Consulting Unavailable AICHHOLZ, ESTHETICIAN SPA PEPPER Attending Unavailable AICHHOLZ, ESTHETICIAN SPA PEPPER Admitting Unavailable Anastacio Hinojosa MD Primary Care Provider [phone] Aichholralph RHINESTONE SETTER, Pepper Unavailable Aichholralph RHINESTONE SETTER, Pepper Unavailable Pepper Sexton Primary Care Provider MD [place] Imrosalie Attending Provider [phone] Pepper Sexton Primary Care Provider [place] CARTAGENA, James Attending Provider Pepper Sexton Primary Care Unavailable Asaad, Imad Attending Unavailable Asaad, Imad Admitting Unavailable Asaad, Imad Admitting Unavailable Pepper Sexton Primary Care Unavailable Asaad, Imad Attending Unavailable Aichholz CSM CONSULTANT-ESTHETICIAN SPA, Pepper J Primary Care Provider Aicblanca Pepper J Primary Care Provider James Elaine MD Attending Provider [phone] Aichholz CSM CONSULTANT-ESTHETICIAN SPA, Pepper J Primary Care Provider AicLary riosa J Primary Care Provider Tang Hamilton MD Attending Provider AICHHOLZ, PEPPER Attending Unavailable AICHHOLZ, PEPPER Attending Unavailable AICHHOLZ, PEPPER Attending Unavailable AICHHOLZ, PEPPER Attending Unavailable AICHHOLZ, PEPPER Attending Unavailable BLANK MCFARLANE Attending Unavailable RUPERT BO Attending Unavailable AICHHOLZ, PEPPER Attending Unavailable AICHHOLZ, PEPPER Attending Unavailable Aichholz RHINESTONE SETTER-C, Pepper J Primary Care Provider [phone] Tang Hamilton MD Attending Provider Aichholz RHINESTONE SETTER-C, Pepper Wheeler Attending Provider ROBERT KUMAR F Attending Unavailable JOSÉ, MOHAMED F Referring Unavailable AICHHOLZ, PEPPER J Primary Care Unavailable AICHHOLZ, PEPPER J Referring Unavailable AICHHOLZ, PEPPER J Primary Care Unavailable CRIS BOWER Attending Unavailable CRIS BOWER Referring Unavailable AICHHOLZ, PEPPER J Primary Care Unavailable JOSÉ, MOHAMED F Referring Unavailable AICHHOLZ, PEPPER J Primary Care Unavailable JOSÉ, MOHAMED F Admitting Unavailable JOSÉ, MOHAMED F Attending Unavailable JOSÉ, MOHAMED F Referring Unavailable AICHHOLZ, PEPPER J Primary Care Unavailable JOSÉ, MOHAMED F Attending Unavailable JOSÉ, MOHAMED F Referring Unavailable AICHHOLZ, PEPPER J Primary Care Unavailable JOSÉ, MOHAMED F Attending Unavailable AICHHOLZ, PEPPER J Referring Unavailable AICHHOLZ, PEPPER J Primary Care Unavailable JOSÉ, MOHAMED F Attending Unavailable AICHHOLZ, PEPPER J Referring Unavailable AICHHOLZ, PEPPER J Primary Care Unavailable JOSÉ, MOHAMED F Attending Unavailable AICHHOLZ, PEPPER J Referring Unavailable AICHHOLZ, PEPPER J Primary Care Unavailable Medications Current Medications MedicationDrug Class(es)DatesSig (Normalized)Sig (Original)8 hr acetaminophen 650 mg extended release oral tablet (14 sources)take 1 tablet by mouth every eight hours as needed for pain acetaminophen (TYLENOL ARTHRITIS) 650 mg 8 hr tablet Take 1 tablet (650 mg total) by mouth every 8 (eight) hours as needed for pain. Activeacetaminophen 325 mg / HYDROcodone bitartrate 5 mg oral tablet (1 source)Opioid AgonistStart: 05-26-2024 End: 94-63-6180koae 1 tablet by mouth every six hours for painHYDROcodone- acetaminophen ([place]) 5-325 MG tablet Indications: Post-operative pain Take 1 tablet bymouth every 6 (six) hours if needed for severe pain for up to 3 days 12 tablet 05/26/2024 05/29/2024 [id number] 200 actuat albuterol 0.09 mg/actuat metered dose inhaler (20 sources)beta2-Adrenergic AgonistStart: 62-82-5210iqzw 1 puff(s) by inhalation every six hours as needed for wheezingAlbuterol Sulfate 90 mcg/actuation HFA aerosol inhaler Active 2 PUFF INHALATION Every 6 hours as nee ded for shortness of breath or wheezing March 19, 2024 12:00am Complies with drug therapyStart: 38-33-9293akgd 2 puff(s) by inhalation every six hours for wheezingalbuterol HFA (Ventolin HFA) 90 mcg/act inhaler Indications: Chronic Obstructive Pulmonary Disease Inhale 2 puffs every 6 (six) hours if needed for wheezing or shortness of breath 18 g 1 03/06/2024 ActiveStart: 50-51-4503ryld 2 puff(s) by inhalation every six hours as needed for wheezingalbuterol (PROVENTIL HFA;VENTOLIN HFA) 90 mcg/actuation inhaler Indications: Mild persistent asthma without complication Inhale 2 puffs every 6 (six) hours as needed for wheezing. 18 g 11 08/02/2022 ActiveamLODIPine 10 mg oral tablet (20 sources)Dihydropyridine Calcium Channel BlockerStart: 03-18-2024 End: 85-73-6512lclr 1 tablet by mouth once dailyAmlodipine 10 mg tablet Active 10 MG PO Daily March 19, 2024 12:00am Complies with drug therapyamoxicillin 875 mg / clavulanate 125 mg oral tablet (3 sources)Penicillin-class AntibacterialStart: 05-06-2025 End: 10-39-1963bqam 1 tablet by mouth in the morningamoxicillin-clavulanate (Augmentin) 875-125 MG tablet Indications: COPD with acute exacerbation (HCC) Take 1 tablet (875 mg) by mouth in the morning and 1 tablet (875 mg) before bedtime. Do all this for 10 days. 20 tablet 05/06/2025 05/16/2025 Activeapixaban 5 mg oral tablet (20 sources)Factor Xa InhibitorStart: 01-89-9767djct 1 tablet by mouth twice dailyApixaban (Eliquis) 5 mg tablet Active 5 MG PO Twice daily July 09, 2025 12:00am Complies with drug therapyStart: 28-00-1531yiur 2 tablets by mouth twice daily, then take 1 tablet by mouth twice dailyEliquis 5 MG tablet TAKE 2 TABLETS BY MOUTH TWICE DAILY FOR 4 DAYS and then TAKE 1 TABLET BY MOUTH TWICE DAILY thereafter 02/12/2025 Obaaea687 actuat budesonide 0.16 mg/actuat / formoterol fumarate 0.0045 mg/actuat metered dose inhaler (20 sources)Corticosteroid, beta2-Adrenergic AgonistStart: 50-14-3529pxbx 1 puff(s) by inhalation twice daily as needed for wheezingBudesonide-Formoterol 160-4.5 mcg/actuation HFA aerosol inhaler Active 2 PUFF INHALATION Twice daily as needed for shortness of breath or wheezing June 23, 2024 12:00am Complies with drug therapyStart: 05-04-2024 End: 10-53-8455imni 2 puff(s) by inhalation in the morningbudesonide-formoterol (Symbicort) 160-4.5 MCG/ACT inhaler Indications: Chronic bronchitis, unspecified chronic bronchitis type (HCC) Inhale 2 puffs in the morning and 2 puffs before bedtime. Rinse mouth with water after use to reduce aftertaste and incidence of candidiasis. Do not swallow. 10.2 g ActiveStart: 03-19-2024 End: 07-02-6240kvyc 1 puff(s) by inhalation twice daily as neededBudesonide- Formoterol (Symbicort) 80-4.5 mcg/actuation HFA aerosol inhaler Discontinued 2 PUFF INHALATION Twice daily as needed March 19, 2024 9:38am June 23, 2024 10:39amStart: 61-30-7755kvzc 2 puff(s) by inhalation in the morningbudesonide- formoteroL (SYMBICORT) 80-4.5 mcg/actuation inhaler Indications: Mild persistent asthma without complication Inhale 2 puffs in the morning and 2 puffs before bedtime. 10.2 g 12 08/02/2022 Activecalamine 80 mg/ml / zinc oxide 80 mg/ml topical lotion (8 sources)Start: 95-32-8873rlsabceb-zinc oxide 8-8 % lotion Apply 1 Application topically as needed for itching. 120 mL 04/29/2025 ActiveStart: 04-29-2025 Calamine-Zinc Oxide 8-8 % lotion Apply 1 Application topically Daily as needed 04/29/2025 Activecefdinir 300 mg oral capsule (13 sources)Cephalosporin AntibacterialStart: 02-12-2025 End: 87-46-2747wpppoqvs (Omnicef) 300 MG capsule Take 600 mg by mouth Daily 02/12/2025 04/07/2025 Discontinued (Therapy completed)diclofenac sodium 0.01 mg/mg topical gel (4 sources)Nonsteroidal Anti-inflammatory DrugStart: 04-07-2025 End: 03-56-0089meqcvccxxj sodium (Voltaren Arthritis Pain) 1 % gel Indications: Acute gout of left hand, unspecified cause Apply 2 g topically in the morning and 2 g in the evening and 2 g before bedtime. Do all this for 10 days. 50 g 04/07/2025 04/17/2025 Activedoxepin hydrochloride 10 mg/ml oral solution (20 sources)Tricyclic AntidepressantStart: 98-60-8906pyrx 100 mg by mouth once daily at bedtimeDoxepin 10 mg/mL concentrate Active 100 MG PO Daily at bedtime July 09, 2025 12:00am Complies with drug therapyStart: 09-15-2024 End: 82-49-5658lxbl 10 mg by mouth at bedtimedoxepin (SINEquan) 10 MG/ML solution Indications: Fibromyalgia Take 10 mL (100 mg) by mouth at bedtime 900 mL 1 04/07/2025 07/06/2025 ActiveStart: 03-19-2024 End: 90-79-9888ijlr 1 capsule by mouth once daily at bedtimeDoxepin 100 mg capsule Discontinued 100 MG PO Daily at bedtime March 19, 2024 12:00am July 09, 2025 7:20amStart: 03-11-2024 End: 31-61-8818awel 10 mg by mouth at bedtimedoxepin (SINEquan) 10 MG/ML solution Indications: Fibromyalgia Take 10 mL (100 mg) by mouth at bedtime 900 mL 1 03/11/2024 Activetake 1 capsule by mouth once dailydoxepin (SINEquan) 10 mg capsule Take 1 capsule (10 mg total) by mouth nightly. Activedoxycycline hyclate 100 mg oral tablet (4 sources)Tetracycline-class DrugStart: 04-07-2025 End: 22-91-9278sxig 1 tablet by mouth in the morningdoxycycline (Vibra-Tabs) 100 MG tablet Indications: Bronchitis Take 1 tablet (100 mg) by mouth in the morning and 1 tablet (100 mg) before bedtime. Do all this for 10 days. Take with a full glass of water and do not lie down for at least 30 minutes after. 20 tablet 04/07/2025 04/17/2025 Activegabapentin 600 mg oral tablet (20 sources)Anti-epileptic AgentStart: 49-23-6051xtqw 1 tablet by mouth three times dailyGabapentin 600 mg tablet Active 600 MG PO Three times daily July 09, 2025 7:21am Complies withdrug therapyStart: 03-19-2024 End: 47-66-6420algf 1 tablet by mouth twice dailyGabapentin 600 mg tablet Discontinued 600 MG PO Twice daily March 19, 2024 12:00am July 09, 2025 7:26amtake 1 capsule by mouth in the morning, then take 1 capsule by mouth at bedtimegabapentin (NEURONTIN) 300 mg capsule Take 1 capsule (300 mg total) by mouth in the morning and 1 capsule (300 mg total) before bedtime. Active ibuprofen 200 mg oral tablet (20 sources)Nonsteroidal Anti-inflammatory Drug End: 85-30-0403pepq 1 tablet by mouth every six hours as needed for pain ibuprofen (ADVIL,MOTRIN) 200 mg tablet Take 1 tablet (200 mg total) by mouth every 6 (six) hours asneeded for pain. ActivelevoFLOXacin 750 mg oral tablet (13 sources)Quinolone AntimicrobialStart: 02-12-2025 End: 66-77-0120zhnm 1 tablet by mouth once dailylevoFLOXacin (Levaquin) 750 MG tablet TAKE 1 TABLET BY MOUTH ONCE DAILY x14 02/12/2025 04/07/2025 Discontinued (Therapy completed)levothyroxine sodium 0.112 mg oral tablet (20 sources)l-ThyroxineStart: 10-08-2024 End: 21-44-4597aqwh 1 tablet by mouth once dailyLevothyroxine 112 mcg tablet Active 112 MCG PO Daily 90 June 10, 2025 12:00am Hypothyroidism Hypothyroidism, unspecified Complies with drug therapyStart: 03-18-2024 End: 34-55-2108nytk 1 tablet by mouth once dailyLevothyroxine 100 mcg tablet Discontinued 100 MCG PO Daily March 19, 2024 12:00am June 10, 2025 9:26pmtake 4 tablets by mouth in the morninglevothyroxine (SYNTHROID, LEVOTHROID) 25 MCG tablet Take 4 tablets (100 mcg total) by mouth in the m orning. Activemagnesium glycinate 100 mg oral tablet (20 sources)Start: 06-35-0749wwwa 1 capsule by mouth in the morning, then take 1 capsule by mouth in the evening, then take 1 capsule by mouth at bedtime Magnesium Glycinate 100 MG capsule Take 100 mg by mouth in the morning and 100 mg in the evening and 100 mg before bedtime. 12/07/2024 ActiveMagnesium Glycinate 100 mg magnesium capsule (7 sources)Start: 04-81-1896ygve 1 capsule by mouth three times dailyMagnesium Glycinate 100 mg magnesium capsule Active 100 MG PO Three times daily 270 90 February 11:40am Complies with drug therapyStart: 35-76-1742weaz 1 capsule by mouth three times dailyMagnesium Glycinate 100 mg magnesium capsule Active 100 MG PO Three times daily 270 90 March 05, 2025 11:40am Complies with drug therapyStart: 03-04-2025 End: 36-83-5132htsx 1 capsule by mouth three times dailyMagnesium Glycinate 100 mg magnesium capsule Discontinued 100 MG PO Three times daily 270 90 1 2024 3:50pm March 05, 2025 11:40amStart: 03-04-2025 End: 52-63-1349lrie 1 capsule by mouth three times dailyMagnesium Glycinate 100 mg magnesium capsule Discontinued 100 MG PO Three times daily 270 90 March 04, 2025 3:50pm March 05, 2025 11:40amStart: 12-02-2024 End: 22-26-6859drik 1 capsule by mouth three times dailyMagnesium Glycinate 100 mg magnesium capsule Discontinued 100 MG PO Three times daily 90 December 02, 2024 12:00am March 04, 2025 3:51pmStart: 12-02-2024 End: 22-74-8560hcaj 1 capsule by mouth three times dailyMagnesium Glycinate 100 mg magnesium capsule Discontinued 100 MG PO Three times daily December 02, 2024 12:00am March 04, 2025 3:51pmStart: 49-34-6937zqto 1 capsule by mouth three times dailyMagnesium Glycinate 100 mg magnesium capsule Active 100 MG PO Three times daily December 022:00amMAGNESIUM GLYCINATE-MAG OXIDE ORAL (1 source)take 100 mg by mouth at bedtimeMAGNESIUM GLYCINATE-MAG OXIDE ORAL Take 100 mg by mouth in the morning and at bedtime. Activemagnesium oxide 500 mg oral tablet (20 sources)Start: 09-28-2024 End: 00-94-7935efdl 1 tablet by mouth in the morning, then take 1 tablet by mouth in the evening, then take 1 tablet by mouth at bedtimemagnesium oxide 500 MG tablet Indications: Hypomagnesemia Take 1 tablet (500 mg) by mouth in the mor adi and 1 tablet (500 mg) in the evening and 1 tablet (500 mg) before bedtime. 270 tablet 1 11/04/2024 02/02/2025 ActiveStart: 03-19-2024 End: 93-68-1036krvz 1 tablet by mouth three times dailyMagnesium Oxide 400 mg (241.3 mg magnesium) tablet Discontinued 400 MG PO Three times daily March 19, 2024 9:39am December 02, 2024 2:07pmStart: 03-19-2024 End: 87-64-4329hxpe 1 tablet by mouth twice dailyMagnesium Oxide 400 mg (241.3 mg magnesium) tablet Discontinued 400 MG PO Twice daily March 19, 2024 12:00am March 19, 2024 9:55nm601 ml magnesium sulfate 40 mg/ml injection (5 sources)Start: 04-06-2025 End: 76-49-3130Uyseaqxdu Sulfate In Water 4 gram/100 mL (4 %) piggyback Active 4 GM IV EVERY 2 WEEKS 0 0 April 06, 2025 3:08pm Hypomagnesemia Hypomagnesemia Standing order for Magnesium level below 1.5. administerover 2-4 hrs Complies with drug therapyStart: 11-24-2024 End: 71-82-9983Ywihtygke Sulfate In Water 4 gram/100 mL (4 %) piggyback Discontinued 4 GM IV Once 0 November 24, 2024 1:00am April 06, 2025 2:56pm administer over 2-4 hrsMagnesium Sulfate In Water 4 gram/100 mL (4 %) piggyback (1 source)Start: 71-70-0440Hkxtcxobf Sulfate In Water 4 gram/100 mL (4 %) piggyback Active 4 GM IV Once November 24, 2024 1:00amadminister over 2-4 hrs meloxicam 15 mg oral tablet (20 sources)Nonsteroidal Anti-inflammatory DrugStart: 32-19-7168fwel 1 tablet by mouth once dailymeloxicam (Mobic) 15 MG tablet Indications: Degenerative disc disease, cervical TAKE 1 TABLET BY MOUTH EVERY DAY 90 tablet 4 06/18/2024 Active Start: 03-29-2022 End: 90-54-4960uavr 1 tablet by mouth once dailyMeloxicam 15 mg tablet Discontinued 15 MG PO Daily March 19, 2024 12:00am September 22, 2024 8:17am methylPREDNISolone (3 sources)CorticosteroidStart: 05-06-2025 End: 05-09-1377otgehaDUYNPEYqioek (Medrol Dospak) 4 MG tablets Indications: COPD with acute exacerbation (HCC) Follow schedule on package instructions take with food 21 tablet 05/06/2025 05/13/2025 Activemontelukast 10 mg oral tablet (20 sources)Leukotriene Receptor AntagonistStart: 03-18-2024 End: 56-77-7031qkrh 1 tablet by mouth once daily at bedtimeMontelukast 10 mg tablet Active 10 MG PO Daily at bedtime March 19, 2024 12:00am Complies with drug therapynebivolol 10 mg oral tablet (20 sources)Start: 03-18-2024 End: 02-54-1118gzfn 1 tablet by mouth once dailyNebivolol 10 mg tablet Active 10 MG PO Daily March 19, 2024 12:00am Complies with drug therapytake 1 tablet by mouth in the morningnebivoloL (BYSTOLIC) 5 mg tablet Take 1 tablet (5 mg total) by mouth in the morning. Activeomeprazole 40 mg delayed release oral capsule (20 sources)Proton Pump InhibitorStart: 25-68-3270nryf 1 capsule by mouth once dailyOmeprazole 40 mg capsule,delayed release(DR/EC) Active 40 MG PO Daily July 12, 2025 9:51am Complies with drug therapyStart: 07-09-2024 End: 18-28-7573deyc 1 capsule by mouth twice dailyOmeprazole 40 mg capsule,delayed release(DR/EC) Discontinued 40 MG PO Twice daily 180 0 July 09, 2024 1:22pm July 12, 2025 9:52amStart: 06-23-2024 End: 72-62-9638Yvbdoztgte 40 mg capsule,delayed release(DR/EC) Discontinued 40 MG PO Every 72 hours June 23, 2024 12:00am June 24, 2024 8:41amStart: 03-19-2024 End: 89-24-4536tece 1 capsule by mouth once dailyOmeprazole 40 mg capsule,delayed release(DR/EC) Discontinued 40 MG PO Daily June 24, 2024 8:41am July 09, 2024 1:23pmpravastatin sodium 40 mg oral tablet (20 sources)HMG-CoA Reductase InhibitorStart: 89-37-2651hras 1 tablet by mouth once daily at bedtimePravastatin 40 mg tablet Active 40 MG PO Daily at bedtime July 09, 2025 12:00am Complies with drug therapytake 1 tablet by mouth once dailypravastatin (Pravachol) 20 MG tablet Take 1 tablet by mouth Daily Active spironolactone 50 mg oral tablet (20 sources)Aldosterone Antagonisttake 1 tablet by mouth once daily spironolactone (Aldactone) 50 MG tablet Take 50 mg by mouth Daily Active valsartan 320 mg oral tablet (20 sources)Angiotensin 2 Receptor BlockerStart: 09-29-2021 End: 33-59-3964rrvx 1 tablet by mouth in the morningvalsartan (DIOVAN) 320 mg tablet Take 1 tablet (320 mg total) by mouth in the morning. 09/29/2021 Active Completed/Discontinued Medications MedicationDrug Class(es)DatesSig (Normalized)Sig (Original)cloNIDine hydrochloride 0.1 mg oral tablet (8 sources)Central alpha-2 Adrenergic AgonistStart: 03-19-2024 End: 14-40-8352zykb 1 tablet by mouth twice dailyClonidine Hcl 0.1 mg tablet Discontinued 0.1 MG PO Twice daily 60 3 March 19, 2024 12:00am 2024 9:50amfamotidine 20 mg oral tablet (20 sources)Histamine-2 Receptor AntagonistStart: 05-04-2024 End: 26-97-7745euch 2 tablets by mouth twice daily in the morning, then take 1 tablet by mouth twice daily in the eveningFamotidine (Pepcid) 20 mg tablet Discontinued 0 PO Twice daily June 23, 2024 10:37am September 22, 2024 8:16am 40mg in am, 20 mg in pm orally twice daily;Start: 03-19-2024 End: 26-06-2348yyud 1 tablet by mouth twice dailyFamotidine (Pepcid) 20 mg tablet Discontinued 20 MG PO Twice daily 180 March 23, 2024 5:47pm June 23, 2024 10:40amNaltrexone (16 sources)Opioid AntagonistStart: 03-19-2024 End: 02-76-9719skqk 1 capsule by mouth once dailyNaltrexone 4.5 mg capsule Discontinued 4.5 MG PO .QD March 19, 2024 9:40am July 12, 2025 9:51am Start: 99-45-4377lkoc 1 capsule by mouth once dailyNaltrexone 4.5 mg capsule Active 4.5 MG PO .QD March 19, 2024 9:40am Complies with drug therapyStart: 37-65-8939unhq 1 capsule by mouth once dailyNaltrexone 4.5 mg capsule Active 4.5 MG PO .QD March 19, 2024 9:40amStart: 50-70-5879vgox 1 capsule by mouth once dailyNaltrexone 4.5 mg capsule Active 4.5 MG PO .QD March 19, 2024 8:40amStart: 89-65-4163nuhf 4.5 mg by mouth once dailyNaltrexone Active 4.5 MG PO .QD March 19, 2024 9:40amStart: 03-19-2024 End: 54-69-4261Mniyuojbrv 4.5 mg capsule Discontinued MG PO March 19, 2024 12:00am March 19, 2024 9:41amStart: 03-19-2024 End: 50-66-1531Ovdwxflmib 4.5 mg capsule Discontinued MG PO March 18, 2024 11:00pm March 19, 2024 8:41amStart: 03-19-2024 End: 83-97-7278Qgmzlixqkv Discontinued MG PO March 19, 2024 12:00am March 19, 2024 9:41amSPIRONOLACTONE, BULK, MISC (1 source) End: 53-80-6544GHXICYOEKRJYSG, BULK, MISC by miscellaneous route. 04/27/2024 Discontinued (Therapy completed) Problems Active Problems Problem ClassificationProblemDateDocumented DateEpisodic/ChronicAbdominal pain (20 sources)Indigestion; Translations: [Epigastric pain]Onset: 07-06-2024 89-95-1601JsabvnzjJyizy and unspecified renal failure (20 sources)Acute renal failure syndrome; Translations: [Acute kidney failure, unspecified]Onset: 501478-52-9436YczvqsttJutpxupr reactions (20 sources)Atopic dermatitis; Translations: [Atopic dermatitis, unspecified] Onset: 099140-39-4979XsxzsleWluzgv (6 sources)Uncomplicated mild persistent asthma; Translations: [Mild persistent asthma, uncomplicated]Onset: 684415-97-0981WjwvdopOzfaueg kidney disease (20 sources)Chronic kidney disease stage 3A ; Translations: [Chronic kidney disease, stage 3a (HCC)]Onset: 889482-73-3588JzpohrbMhaystc obstructive pulmonary disease and bronchiectasis (20 sources)Chronic bronchitis; Translations: [Unspecified chronic bronchitis] Onset: 03-06-2024 Resolved: 299385-55-3687IdyayjvMqopfld obstructive pulmonary disease and bronchiectasis (10 sources)Bronchitis; Translations: [Bronchitis, not specified as acute or chronic]Onset: 150370-49-6410LsrbwyqnQhnwgcn ulcer of skin (2 sources)Non-pressure chronic ulcer of unspecified part of unspecified lower leg with unspecified severity; Translations: [Non-pressure chronic ulcer of unspecified part of unspecified lower leg with unspecified severity]Onset: 24-24-3130QggfrrvTtsafdfh mellitus without complication (20 sources)Hyperglycemia, unspecified; Translations: [Hyperglycemia]Onset: 694342-75-6500WubkecrkXtkffsnpk of lipid metabolism (20 sources)Hyperlipidemia; Translations: [Hyperlipidemia, unspecified]Onset: 291920-13-3441WqjvdgcRddrddesve disorders (20 sources)Gastroesophageal reflux disease; Translations: [Gastro-esophageal reflux disease without esophagitis]Onset: 08-19-2023 Resolved: 756243-67-6643DeeyynyTsktcgmvu hypertension (20 sources)Essential (primary) hypertension; Translations: [Essential hypertension]Onset: 578880-18-8407ZudsnycHgdlg and electrolyte disorders (17 sources)Hypokalemia; Translations: [Disorder of electrolytes]Onset: 28-65-5426WhntodtiSrmdkgfolhisyi ulcer (except hemorrhage) (20 sources)Acute gastric ulcer without hemorrhage AND without perforation; Translations: [Acute gastric ulcer without hemorrhage or perforation]Onset: 324381-82-3024SlypzpbfDpdv and other crystal arthropathies (13 sources)Gouty arthritis of left hand; Translations: [Gout, unspecified] Onset: 881120-24-5614NuptzjtZlgll valve disorders (1 source)Nonrheumatic pulmonary valve insufficiency; 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 INSUFF]Onset: 52-57-4051RsujntdNvbvtwxzwezvwm (20 sources)Arthritis; Translations: [Unspecified osteoarthritis, unspecified site]Onset: 685275-18-5991BwbrkipLfknh aftercare (1 source)Encounter for follow-up examination after completed treatment for conditions other than malignant neoplasm; Translations: [Encounter for follow-up examination after completed treatment for conditionsother than malignant neoplasm]Onset: 07-23-2700FucvheklHgmfn and ill-defined heart disease (20 sources)Left ventricular cardiac dysfunction; Translations: [Heart disease, unspecified]Onset: 761237-88-9281ZtwujawDnvze connective tissue disease (20 sources)Fibromyalgia; Translations: [Fibromyalgia]Onset: 08-19-2023 35-03-8736BgsiwagbKasal connective tissue disease (20 sources)Swelling of left lower limb; Translations: [Other specified soft tissue disorders]Onset: 947358-96-1636NebzsfcqApmyy diseases of veins and lymphatics (20 sources)Vascular insufficiency; Translations: [Venous insufficiency (chronic) (peripheral)]Onset: 986245-31-5498SnaqfnarDssxe diseases of veins and lymphatics (2 sources)Peripheral venous insufficiency; Translations: [Venous insufficiency (chronic) (peripheral)]21-23-6846IwxayoajGigvw hereditary and degenerative nervous system conditions (20 sources)Restless legs; Translations: [Restless legs syndrome]Onset: 692790-61-2614KantdfjXvaob inflammatory condition of skin (20 sources)Psoriasis; Translations: [Psoriasis, unspecified]Onset: 11-26-2023 49-14-3744KiilielZuxhw lower respiratory disease (20 sources)Cough; Translations: [Cough in adult]Onset: EpisodicOther nervous system disorders (20 sources)Compression injury of nerve; 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, unspecified]Onset: 047807-95-2326YrpzykmZijpy nervous system disorders (20 sources)Bilateral carpal tunnel syndrome; Translations: [Carpal tunnel syndrome, bilateral upper limbs]Onset: 258584-75-5970RetsnmxQeall nervous system disorders (4 sources)Lesion of ulnar nerve, right upper limb; Translations: [Lesion of ulnar nerve]66-80-6393FyahfkxWmbll nervous system disorders (20 sources)Paresthesia of skin; Translations: [Disturbance of skin sensation] Onset: 703017-68-3918LxpcjrksNkehi nutritional; endocrine; and metabolic disorders (1 source)Obesity, unspecified; Translations: [OBESITY UNSPECIFIED]Onset: 15-36-9350CdkkwpbLcezd nutritional; endocrine; and metabolic disorders (1 source)Body mass index (BMI) 30.0-30.9, adult; Translations: [BODY MASS INDEX BMI 30.0-30.9 ADULT]Onset: 25-44-3251MpabwyaScasn nutritional; endocrine; and metabolic disorders (7 sources)Hypomagnesemia; Translations: [Disorders of magnesium metabolism] Onset: 856302-92-9729NkqpikdTyfyl nutritional; endocrine; and metabolic disorders (20 sources)Hypomagnesemia; Translations: [Hypomagnesemia]Onset: 08-19-2023 69-47-2128BaorfhqWcvfa nutritional; endocrine; and metabolic disorders (20 sources)Body mass index 30+ - obesity; Translations: [Obesity, unspecified] Onset: 02-26-2024 Resolved: 040506-26-0469UuuvqpaLjsby nutritional; endocrine; and metabolic disorders (20 sources)Obesity caused by energy imbalance; Translations: [Morbid (severe) obesity due to excess calories]Onset: 743262-19-8581JujjrklXwxhu screening for suspected conditions (not mental disorders or infectious disease) (20 sources)Encounter for screening for malignant neoplasm of prostate; Translations: [Cardiovascular stress test abnormal]Onset: EpisodicPhlebitis; thrombophlebitis and thromboembolism (20 sources)Chronic deep venous thrombosis of popliteal vein of left leg; Translations: [Chronic embolism and thrombosis of left popliteal vein]Onset: 032429-86-1950YuvdudxKgascqfbk heart disease (20 sources)Pulmonary hypertension; Translations: [Pulmonary hypertension, unspecified]Onset: 355389-50-7235PywtdtmOhpjzeeu codes; unclassified (20 sources)Hypersomnia; Translations: [Hypersomnia, unspecified]Onset: 566957-60-3594DtnmsedLarkozkw codes; unclassified (20 sources)Obstructive sleep apnea syndrome; Translations: [Obstructive sleep apnea (adult) (pediatric)]Onset: 692756-62-0267CuhniuiKwbxftwk codes; unclassified (20 sources)Orthopedic hardware in situ; Translations: [Presence of other specified devices]Onset: 070458-29-9205PltpixqhVdcdopeb codes; unclassified (1 source)Other specified postprocedural states; Translations: [Other specified postprocedural states]Onset: 59-56-5638CdvqpzgdVppu and subcutaneous tissue infections (20 sources)Cellulitis of left lower limb; Translations: [Cellulitis of left lower limb]Onset: 497502-04-1035CkevxcfrMyfhxcinhoq; intervertebral disc disorders; other back problems (20 sources)Degeneration of cervical intervertebral disc; Translations: [Other cervical disc degeneration, unspecified cervical region]Onset: 11-26-2023 81-43-1694YdvhuixZbkezdmfgcz; intervertebral disc disorders; other back problems (20 sources)Cervical radiculopathy; Translations: [Radiculopathy, cervical region]Onset: 413021-60-4578JvpgheefPbzwyltla-thfiyzo disorders (20 sources)Nicotine dependence; Translations: [Nicotine dependence, unspecified, uncomplicated]Onset: 217550-48-1912TevmtdoGaoafbrfc-rztbckq disorders (20 sources)Marijuana user; Translations: [Cannabis use, unspecified, uncomplicated]Onset: 517022-49-7325UiktlqsnPrshrkm disorders (20 sources)Hypothyroidism, unspecified; Translations: [Hypothyroidism]Onset: 78-20-4382CbsckllWtxxvkozllhs (1 source)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 ([facility])81-46-1784Hejqnyrdqkog (2 sources)Autogenerated ProblemOnset: 775950-60-3435Ggaqclmqvqle (1 source)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 ([facility]) [I83.209, L97.909]Onset: 31-22-4134Vbkgasdnlosb (1 source)Cellulitis of left lower extremity Left leg swellingOnset: 04-01-2025 Varicose veins of lower extremity (20 sources)Varicose veins of unspecified lower extremity with both ulcer of unspecified site and inflammation;Translations: [Varicose veins of lower extremities with ulcer and inflammation]Onset: 367575-50-5522Igzvvmdl Past or Other Problems Problem ClassificationProblemDateDocumented DateEpisodic/ChronicImmunizations and screening for infectious disease (20 sources)Needs influenza immunization; Translations: [Encounter for immunization]Onset: 07-06-2024 Resolved: 319766-69-4530UwxthuxiTbobj diseases of veins and lymphatics (2 sources)Venous insufficiency (chronic) (peripheral); Translations: [Venous insufficiency (chronic) (peripheral)]Onset: 19-10-2926XqtkbiluLnnfo gastrointestinal disorders (1 source)Heartburn; Translations: [Heartburn]Onset: 33-11-8294BntrxcatZbjct lower respiratory disease (4 sources)Dyspnea, unspecified; Translations: [DYSPNEA UNSPECIFIED]Onset: 80-32-8708SjmskvvnUjwdl lower respiratory disease (20 sources)Dyspnea; Translations: [Dyspnea, unspecified]Onset: 08-19-2023 Resolved: 649234-16-2579ZvskikasOvjmh lower respiratory disease (6 sources)Radiologic infiltrate of lung ; Translations: [Other nonspecific abnormal finding of lung field]Onset: 305975-44-5705NaynsrsqRrlmj nervous system disorders (20 sources)Carpal tunnel syndrome; Translations: [Carpal tunnel syndrome, unspecified upper limb]Onset: 02-02-2024 Resolved: 646302-98-9875YcjpxfeNibnx nervous system disorders (20 sources)Paresthesia; Translations: [Paresthesia of skin]Onset: 02-02-2024 Resolved: 148230-84-5552DxdzvswpYbpen nervous system disorders (1 source)Postoperative pain ; Translations: [Other acute postprocedural pain] 54-96-9668ZtavoqyrFfxwpry (11 sources)Syncope and collapse; Translations: [Syncope and collapse]Onset: 04-89-7301SlmkjzyrQqleqtvxflwe (1 source)Preprocedural examination rrln78-72-1846 Results Test NameValueInterpretationReference RangeFacilityMAGNESIUMon 07-08-2025 Magnesium [Mass/Vol]1.7 mg/dLLow1.8-2.6Met[facility] Medical CenterComment on above:Performed By: #### MG #### [facility] ([facility]) [address] [place] [address] VIRAPTTon 81-02-2202gRQR Coag (Bld) [Time]29 sAjksir33-03 [facility] CenterComment on above:Performed By: #### PTT #### [facility] ([facility]) [address] [place] [address] VIRBASIC METABOLIC PANELon 32-55-6383Tvmyg gap [Moles/Vol]10 mmol/LNormal5-15[facility] CenterComment on above:Performed By: #### BMP #### [facility] ([facility]) [address] [place] [address] VIRCalcium [Mass/Vol]8.7 mg/dLNormal8.5-10.5PSouthwest General Health CenterComment on above:Performed By: #### BMP #### [facility] ([facility]) [address] [place] [address] VIRChloride [Moles/Vol]103 mmol/THqrghj41-842GwfJzvytmChildress Regional Medical CenterComment on above:Performed By: #### BMP #### [facility] ([facility]) [address] [place] [address] VIRCO2 [Moles/Vol]31 mmol/GDubfww53-18BsxDwqjdfSouthwest General Health CenterComment on above:Performed By: #### BMP #### [facility] ([facility]) [address] [place] [address] VIRCreatinine [Mass/Vol]1.13 mg/dLNormal0.60-1.30[facility] Medical CenterComment on above:Result Comment: METHOD TRACEABLE TO IDMS STANDARDPerformed By: #### BMP #### [facility] ([facility]) [address] [place] [address] VIRGFR/1.73 sq M.predicted among non-blacks MDRD (S/P/Bld) [Vol rate/Area]76 mL/min/{1.73_m2}Normal>=60ProChildress Regional Medical CenterComment on above:Result Comment: Reported eGFR is based on the CKD-EPI 2020 equation that does not use a race coefficient.Performed By: #### BMP #### [facility] ([facility]) [address] [place] [address] VIRGlucose [Mass/Vol]100 mg/nXIttb69-76MdeGnqlvmChildress Regional Medical CenterComment on above:Performed By: #### BMP #### [facility] ([facility]) [address] [place] [address] VIRPotassium [Moles/Vol]3.8 mmol/LNormal3.5-5.0ProChildress Regional Medical CenterComment on above:Performed By: #### BMP #### [facility] ([facility]) [address] [place] [address] VIRSodium [Moles/Vol]144 mmol/QWcplxe329-871RnfWatyfk [facility]remont HospitalComment on above:Performed By: #### BMP #### [facility] ([facility]) [address] [place] [address] VIRUrea nitrogen [Mass/Vol]13 mg/dLNormal5-23ProChildress Regional Medical CenterComment on above:Performed By: #### BMP #### [facility] ([facility]) [address] [place] [address] VIRCBC (NO DIFF)on 54-91-4307Efkodsvnjkw distribution width (RBC) [Ratio]14.5 %Fuxpin65.5-15[facility] Medical CenterComment on above: Performed By: #### CBC #### [facility] ([facility]) [address] [place] [address] VIRHematocrit (Bld) [Volume fraction]42.2 %Obbcbj24-91SjgUqsknuMetroHealth Parma Medical CenterComment on above:Performed By: #### CBC #### [facility] ([facility]) [address] [place] [address] VIRHemoglobin (Bld) [Mass/Vol]13.8 g/sEKfebxl45-13ZtqNaxorvMetroHealth Parma Medical CenterComment on above:Performed By: #### CBC #### [facility] ([facility]) [address] [place] [address] VIRMCH (RBC) [Entitic mass]29.9 msUvarta84-00HklDwbkvyMetroHealth Parma Medical CenterComment on above:Performed By: #### CBC #### [facility] ([facility]) [address] [place] [address] VIRMCHC (RBC) [Mass/Vol]32.8 g/qLVcdxsw48-26PgsBdiojgMetroHealth Parma Medical CenterComment on above:Performed By: #### CBC #### [facility] ([facility]) [address] [place] [address] VIRMCV (RBC) [Entitic vol]91 pBUmpjgc62-509AuhLouayuMetroHealth Parma Medical CenterComment on above:Performed By: #### CBC #### [facility] ([facility]) [address] [place] [address] VIRPlatelet mean volume (Bld) [Entitic vol]8.6 fLNormal7-12 [facility] CenterComment on above:Performed By: #### CBC #### [facility] ([facility]) [address] [place] [address] VIRPlatelets (Bld) [#/Vol]277 10*3/pTXhnfdl226-461JfmBwsflo [facility]rem[facility] HospitalComment on above:Performed By: #### CBC #### [facility] ([facility]) [address] [place] [address] VIRRBC COUNT4.61 X10E12/LNormal4.1-5.7ProChildress Regional Medical CenterComment on above:Performed By: #### CBC #### [facility] ([facility]) [address] [place] [address] VIRWBC (Bld) [#/Vol]8.4 10*3/uLNormal4-11[facility] CenterComment on above:Performed By: #### CBC #### [facility] ([facility]) [address] [place] [address] VIRECG 12 leadon 78-19-8017HKFTMRGXJQLERTOvvKhekng Health SystemMAGNESIUMon 55-58-9546Xszyjqhua [Mass/Vol]1.0 mg/dLLow1.8-2.6[facility] CenterComment on above:Performed By: #### MG #### [facility] ([facility]) [address] [place] [address] VIRMagnesiumon 06-54-5086Xbinvbsxxgoaxc and review of laboratory resultsAbnormalOhio Valley Hospital SystemMagnesium [Mass/Vol]1 mg/dLLow 1.8 - 2.6 mg/dLAscension Columbia Saint Mary's Hospital SystemPROTIME AND INRon 1967SJB0.4Gevtvj2.9-1.2PSouthwest General Health CenterComment on above: Performed By: #### PINR #### [facility] ([facility] [address] [place] [address] VIRPT Coag (PPP) [Time]11.2 sNormal9.8-13.2PSouthwest General Health CenterComment on above:Performed By: #### PINR #### [facility] ([facility]) [address] [place] [place] [address] VIRLaboratory - Chemistry and Chemistry - challengeOrdered By: Tang Hamilton on 65-07-3425Udbjalcfl [Mass/Vol]0.6 mg/dLCritically low1.8-2.4 [facility] HospitalComment on above:RESULTS CALLED TOLaboratory - Chemistry and Chemistry - challengeOrdered By: Tang Hamilton on 05-26-2025 Magnesium [Mass/Vol]0.8 mg/dLCritically low1.8-2.4FProtestant Deaconess HospitalComment on above:RESULTS CALLED TO LYNNETTE GIBSON LPN at 1444ALL MAGNESIUM on 40-42-3249Rsuoguzqopkckh and review of laboratory resultsAbnormalNOMS HealthcareMagnesium [Mass/Vol]0.7 mg/dLCritically low1.8 - 2.4 mg/dLNOCO HealthcareComment on above:RESULTS CALLED TOCLINISYNCNOCO HealthcareLaboratory - Chemistry and Chemistry - challengeOrdered By: Tang Hamilton on 05-06-2025 Magnesium [Mass/Vol]0.7 mg/dLCritically low1.8-2.4FProtestant Deaconess HospitalComment on above:RESULTS CALLED TOLAXMI MAGNESIUMon 21-92-6884Ilcrvqwofcfokp and review of laboratory resultsAbnormalNOMS HealthcareMagnesium [Mass/Vol]1.3 mg/dLLow1.8 - 2.4 mg/dLNOCO HealthcareCLINISYNCNOMS HealthcareALL URIC ACIDon 09-81-7623Ovthf [Mass/Vol]7.2 mg/dL3.5 - 7.2 mg/dLNOCameron Regional Medical CenterCLINISYNCNSainte Genevieve County Memorial HospitalGlomerular filtration rate (GFR) estimation in non- Ordered By: Tang Hamilton on 72-75-9896NTW/1.73 sq M.predicted among non-blacks MDRD (S/P/Bld) [Vol rate/Area]mL/min/{1.73_m2}>=60 mL/min/1.73m 2FProtestant Deaconess HospitalLaboratory - Chemistry and Chemistry - challengeOrdered By: Tang Hamilton on 06-23-2802Wyzvydj [Mass/Vol]3.2 g/dLLow3.4-5.0[facility] HospitalCalcium [Mass/Vol]7.5 mg/dLLow8.5-10.1FProtestant Deaconess HospitalChloride [Moles/Vol]107 mmol/M52-538InfsejzpxFort Hamilton HospitalCO2 [Moles/Vol]29.4 mmol/L21.0-32.0[facility] Creatinine [Mass/Vol]1.15 mg/dL0.70-1.30[facility] GFR/1.73 sq M.predicted MDRD (S/P/Bld) [Vol rate/Area]mL/min/{1.73_m2}>=60 mL/min/1.73m 2FProtestant Deaconess HospitalGlucose [Mass/Vol]101 mg/gR50-543 [facility] HospitalMagnesium [Mass/Vol]0.5 mg/dLCritically low 1.8-2.4FProtestant Deaconess HospitalComment on above:RESULTS CALLED TO Potassium [Moles/Vol]3.9 mmol/L3.5-5.1FWooster Community Hospitalodium [Moles/Vol]146 mmol/XOptz530-556PjajaimdhFort Hamilton HospitalUrea nitrogen [Mass/Vol]20.0 mg/dLHigh7.0-18.0[facility] HospitalUrea nitrogen/Creatinine [Mass ratio]17.4 mg/mgFort Hamilton HospitalNo Panel InformationOrdered By: Tang Hamilton on 66-85-8168Uvwxvtbbsu Level3.5 mg/dL 2.6-4.7FWooster Community Hospitalerum or plasma anion gap determination Ordered By: Tang Hamilton on 92-28-1779Mblkm gap [Moles/Vol]13.5 mmol/LFProtestant Deaconess HospitalALL BASIC METABOLIC PANELon 92-30-9004Vudib gap [Moles/Vol]13.7 mmol/LNOMS HealthcareCalcium [Mass/Vol]7.9 mg/dLLow8.5 - 10.1 mg/dLNOMS HealthcareChloride [Moles/Vol]107 mmol/L98 - 107 mmol/LNOMS Healthcare CO2 [Moles/Vol]28.8 mmol/L21.0 - 32.0 mmol/LNOMS HealthcareCreatinine [Mass/Vol] 1.04 mg/dL0.70 - 1.30 mg/dLNOMS HealthcareGFR/1.73 sq M.predicted CKD-EPI (S/P/Bld) [Vol rate/Area]>60>=60 mL/min/1.73m 2NOMS HealthcareGlucose [Mass/Vol] 130 mg/gLUwqz47 - 106 mg/dLNOCO HealthcareInterpretation and review of laboratory resultsAbnormalNOCO HealthcarePotassium [Moles/Vol]3.5 mmol/L3.5 - 5.1 mmol/LNOMS HealthcareSodium [Moles/Vol]146 mmol/JBzum135 - 145 mmol/LNOMS HealthcareTBH EGFR-NON AF MOROCCAN>60>=60 mL/min/1.73m 2NOMS HealthcareUrea nitrogen [Mass/Vol]15 mg/dL7.0 - 18.0 mg/dLNOCO HealthcareUrea nitrogen/Creatinine [Mass ratio]14.4 mg/mgNOCO HealthcareCLINISYNCNJD MCCARTY C[facility] HealthcareALL CBC WITH AUTO DIFFon 26-73-5626AMXNUXJCR ABSOLUTE AUTO0.1NOMS HealthcareBasophils/100 WBC (Bld)0.7 %0.2 - 2.0 %NOMS HealthcareEosinophils/100 WBC (Bld)9.5 %High0.9 - 7.0 %NOM HealthcareErythrocyte distribution width (RBC) [Ratio]15 %11.0 - 15.0 %NOMS HealthcareHematocrit (Bld) [Volume fraction]38.3 % Low42.0 - 54.0 %NOMMissouri Southern HealthcareHemoglobin (Bld) [Mass/Vol]12.5 g/dLLow14.0 - 18.0 g/dLNOCameron Regional Medical CenterIMMATURE GRANULOCYTES ABS AUTO0.03NOMS Healthcare Immature granulocytes/100 WBC (Bld)0.3 %0.0 - 0.5 %NOM HealthcareInterpretation and review of laboratory resultsAbnormalNOCameron Regional Medical CenterLYMPHOCYTES ABSOLUTE AUTO1.9NOMS HealthcareLymphocytes/100 WBC (Bld)20.4 %Low20.5 - 60.0 %NOMLiberty HospitalH (RBC) [Entitic mass]31.8 pg25.9 - 34.0 pgNONorthwest Medical CenterHC (RBC) [Mass/Vol]32.6 g/dL29.9 - 35.2 g/dLNOCO HealthcareMCV (RBC) [Entitic vol]97.5 fL High80.0 - 94.0 fLNOCO HealthcareMONOCYTES ABSOLUTE AUTO0.5NOMS Healthcare Monocytes/100 WBC (Bld)5.2 %1.7 - 12.0 %NOMS HealthcareNEUTROPHILS ABSOLUTE AUTO 5.8NOMS HealthcareNeutrophils/100 WBC (Bld)63.9 %43.0 - 75.0 %NOMS [facility] Platelet mean volume (Bld) [Entitic vol]9.8 fL9.5 - 13.5 fLNOCO HealthcareTBH EO #0.9HighNOMS HealthcareTBH MLD989UNEO HealthcareTB RBC3.93LowNOMS [facility] HospitalTB WBC9.1NOMS HealthcareCLINISYNCNJD MCC[facility] HealthcareLaboratory - Chemistry and Chemistry - challengeOrdered By: Tang Hamilton on 65-01-3771Ahljmzqwj [Mass/Vol] 0.2 mg/dLCritically low1.8-2.4FProtestant Deaconess HospitalComment on above: RESULTS CALLED TO Cheikh FOFANA Panel InformationOrdered By: Tang Hamilton on 67-32-7351Xerfucwnlq Level2.7 mg/dL2.6-4.7FProtestant Deaconess Hospital ALL CBC WITH AUTO DIFFon 82-50-7400KTXUVZTQM ABSOLUTE AUTO0.1NOMS [facility] Basophils/100 WBC (Bld)0.8 %0.2 - 2.0 %NOMS HealthcareEosinophils/100 WBC (Bld) 6.2 %0.9 - 7.0 %NOMMissouri Southern HealthcareErythrocyte distribution width (RBC) [Ratio]13.7 %11.0 - 15.0 %NOMS HealthcareHematocrit (Bld) [Volume fraction]42 %42.0 - 54.0 % NOM HealthcareHemoglobin (Bld) [Mass/Vol]13.6 g/dLLow14.0 - 18.0 g/dLNOCameron Regional Medical CenterIMMATURE GRANULOCYTES ABS AUTO0.03NOMS HealthcareImmature granulocytes/100 WBC (Bld)0.3 %0.0 - 0.5 %NOM HealthcareInterpretation and review of laboratory resultsAbnormalNOMS HealthcareLYMPHOCYTES ABSOLUTE AUTO1.8 NOMMissouri Southern HealthcareLymphocytes/100 WBC (Bld)21 %20.5 - 60.0 %[facility] CampusH (RBC) [Entitic mass]31.1 pg25.9 - 34.0 pgNONorthwest Medical CenterHC (RBC) [Mass/Vol] 32.4 g/dL29.9 - 35.2 g/dLResearch Medical Center-Brookside CampusV (RBC) [Entitic vol]95.9 ePQuxw04.0 - 94.0 fLSaint Mary's Health CenterMONOCYTES ABSOLUTE AUTO0.5NOCO HealthcareMonocytes/100 WBC (Bld)6.1 %1.7 - 12.0 %[facility] CenterNEUTROPHILS ABSOLUTE AUTO5.8NOCameron Regional Medical Center Neutrophils/100 WBC (Bld)65.6 %43.0 - 75.0 %[facility] Health CenterPlatelet mean volume (Bld) [Entitic vol]9.6 fL9.5 - 13.5 fLSaint Mary's Health CenterTBH EO #0.5NOMS Healthcare TBH TCA986SPBHBothwell Regional Health Center RBC4.38LowNOBothwell Regional Health Center WBC8.8NOCameron Regional Medical Center CLINISYNCPemiscot Memorial Health Systems MAGNESIUMon 26-70-3431Sqsigarwksekkq and review of laboratory resultsAbnormalNOMS HealthcareMagnesium [Mass/Vol]1.1 mg/dLLow1.8 - 2.4 mg/dLSaint Mary's Health CenterCLINISYNCNOMS HealthcareLaboratory - Chemistry and Chemistry - challengeon 92-87-5543Hniclmijw [Mass/Vol]1.1 mg/dLLow1.8-2.4 [facility] MAGNESIUMon 60-41-2532Ppyilplzmzeduq and review of laboratory resultsAbnormalNOMS HealthcareMagnesium [Mass/Vol]0.7 mg/dL Critically low1.8 - 2.4 mg/dLSPANISH FORK HOSPITAL HealthcareComment on above:RESULTS CALLED TO IRENE BOOTH MA AT OFFICE BY Violeta Gold at [address] [facility] MAGNESIUMon 28-69-0421Luytsubrvrdstx and review of laboratory resultsAbnormalNOMS HealthcareMagnesium [Mass/Vol]0.8 mg/dLCritically low1.8 - 2.4 mg/dLNOCO HealthcareComment on above:RESULTS CALLED TOALL THYROID STIM HORMONEon 35-44-7164KJQ Qn2.054 m[IU]/LNOMS VfzfasyzxcIcA9l (Bld) [Mass fraction]on 05-30-8369Ztzworiorzfxai and review of laboratory resultsNormalNOMissouri Rehabilitation Center HealthcareLaboratory - Hematology and Cell countson 10-07-2024 HbA1c (Bld) [Mass fraction]5.60 %[facility] HealthcareNo Panel Informationon 42-86-4897OIWITTRBPQNIU HealthcareAmphetamine Screen Ql (U)Ordered By: Imad Asaad on 72-09-5032Mdtyrpormdtk Ql (U)Amphetamines screenNegativeFort Hamilton HospitalBarbiturates [Presence] in Urine by Screen methodOrdered By: Imad Asaad on 59-20-7207Nbfumtmtelda Screen Ql (U)Barbiturates [Presence] in Urine by Screen methodNegativeFort Hamilton HospitalBenzodiazepines Screen Ql (U)Ordered By: Imad Asaad on 51-21-6338Jzvxpctjdveyfcr Ql (U) Benzodiazepines [Presence] in Urine by Screen methodNegativeFort Hamilton HospitalBenzoylecgonine [Presence] in Urine by Screen methodOrdered By: Imad Asaad on 87-47-3669Dvzsrpypywagcbn Screen Ql (U)Benzoylecgonine [Presence] in Urine by Screen methodNegativeFort Hamilton HospitalCannabinoids [Presence] in Urine by Screen methodOrdered By: Imad Asaad on 10-06-2024 Cannabinoids Screen Ql (U)Cannabinoids [Presence] in Urine by Screen methodHigh NegativeFort Hamilton HospitalComment on above:These are unconfirmed results and should not be used for legal purposes. Drug Cut-Off Concentration: AMPH 1000 ng/mL MAX 200 ng/mL JUHI 200 ng/mL COCM 300 ng/mL OP 300 ng/mL PCP 25 ng/mL THC 20 ng/mLDrug Screen,Urineon 06-34-9210Wcbthwaaqpy Screen,Urine NegativeNormalNegativeThe Firsthealth Physician GroupComment on above:Performed By: #### URDS #### [place] [address] USABarbiturate Screen,UrineNegativeNormalNegativeThe Firsthealth Physician GroupComment on above:Performed By: #### URDS #### [place] [address] USABenzodiazepines Screen,UrineNegativeNormalNegativeThe Firsthealth Physician GroupComment on above:Performed By: #### URDS #### [place] [address] USACannabinoid Screen,UrinePositiveHighNegativeThe Firsthealth Physician GroupComment on above:Result Comment: These are unconfirmed results and should not be used for legal purposes. Drug Cut-Off Concentration: AMPH 1000 ng/mL MAX 200 ng/mL JUHI 200 ng/mL COCM 300 ng/mL OP 300 ng/mL PCP 25 ng/mL THC 20 ng/mL PERFORMED BY: [place] [address] PATHOLOGIST [employer] SPECIALIST ROBERT GRIMES M.D.Performed By: #### URDS #### [place] [address] USACocaine Screen,UrineNegativeNormalNegativeTampa General Hospital Physician GroupComment on above:Performed By: #### URDS #### [place] [address] USAOpiate Screen,UrineNegativeNormalNegativeTampa General Hospital Physician GroupComment on above:Performed By: #### URDS #### [place] [address] USAPhencyclidine Screen,UrineNegativeNormalNegativeThe Firsthealth Physician GroupComment on above:Performed By: #### URDS #### [place] [address] USALon 10-06-2024L Specimen: [id number] Received: 10/06/24 Status: SAHIL Fernandezsaira Num: [id number] Spec Type: Surgical Subm Dr: James Elaine MD Tissues: A Esophagus Biopsy (ESOPHAGUS BX R/O BARRETTS) Procedures: HE/2, Gross/Micro L4 Age/ Patient Sex Location Account Attending Physician Abram Guillaume/M [id number] James Elaine MD SPEC NUM: [id number] RECD: 10/06/24 STATUS: SAHIL EUGENIO NUM: [id number] PHILLIP: 10/06/24 [facility] [place] DR: James Elaine MD ENTERED: 10/06/24 LAUREL FRYE: ANGELICA TYPE: Surgical DEPT: S ENTERED BY: [id number] RECV BY: [id number] ORDERED: HE/2, Gross/Micro L4 ORDERED: HE/2, Gross/Micro [...] submitted in a single cassette. (1, ns, [id number] A) Microscopic Description Microscopic examination is performed. Specimen: S2 Received: 10/06/24 Status: SAHIL Ruiz Num: [id number] Spec Type: Surgical Subm Dr: James Elaine MD Tissues: A Esophagus Biopsy (ESOPHAGUS BX R/O BARRETTS) Procedures: HE/2, Gross/Micro L4 Patient: Abram Guillaume [id number] (Continued) Specimen: S2 Received: 10/06/24 (Continued) Signed (signature on file) Sandro Baird MD 10/07/24 1009 Specimen: [id number] Received: 10/06/24 Status: SAHIL Ruiz Num: [id number] Spec Type: Surgical Subm Dr: James Elaine MD Tissues: A Esophagus Biopsy (ESOPHAGUS BX R/O BARRETTS) Procedures: HE/Colette, Gross/Micro L4 Patient: SissyAbram [id number] (Continued) Specimen: S2 Received: 10/06/24 (Continued) CPT Codes 85272 Specimen: [id number] Received: 10/06/24-1056 Status: SAHIL Ruiz Num: [id number] Spec Type: Surgical Subm Dr: James Elaine MD Tissues: A Esophagus Biopsy (ESOPHAGUS BX R/O BARRETTS) Procedures: HE/2, Gross/Micro L4 Patient: Abram Guillaume [id number] (Continued) Signed (signature on file) Sandro Baird MD 10/07/24 1009Normal [facility] Physician GroupOpiates [Presence] in Urine by Screen methodOrdered By: James Elaine on 08-50-0908Fzzafwk Screen Ql (U)Opiates [Presence] in Urine by Screen methodNegShelby Memorial HospitalPhencyclidine Screen Ql (U)Ordered By: James Elaine on 57-53-9939Wjpktkglaasoz Ql (U)Phencyclidine [Presence] in Urine by Screen methodNegShelby Memorial HospitalALL BASIC METABOLIC PANELon 17-05-4176Eupys gap [Moles/Vol]14.1 mmol/LNOMS HealthcareCalcium [Mass/Vol]8.3 mg/dLLow8.5 - 10.1 mg/dLNOMS HealthcareChloride [Moles/Vol]104 mmol/L98 - 107 mmol/LNOMS HealthcareCO2 [Moles/Vol]28.4 mmol/L 21.0 - 32.0 mmol/LNOMS HealthcareCreatinine [Mass/Vol]1.61 mg/dLHigh0.70 - 1.30 mg/dLNOMS HealthcareGFR/1.73 sq M.predicted CKD-EPI (S/P/Bld) [Vol rate/Area]54 Low>=60 mL/min/1.73m 2NOMS HealthcareGlucose [Mass/Vol]137 mg/sKXuow71 - 106 mg/dLNOCO HealthcarePotassium [Moles/Vol]3.5 mmol/L3.5 - 5.1 mmol/LNOMS HealthcareSodium [Moles/Vol]143 mmol/L136 - 145 mmol/LNOMS HealthcareTBH EGFR- NON AF UHUNBXRV51Bxv>=60 mL/min/1.73m 2NOMS HealthcareUrea nitrogen [Mass/Vol]17 mg/dL7.0 - 18.0 mg/dLNOCO HealthcareUrea nitrogen/Creatinine [Mass ratio]10.6 mg/mgNOCO HealthcareALL MAGNESIUMon 13-50-5354Lpiyszmqn [Mass/Vol]0.8 mg/dL Critically low1.8 - 2.4 mg/dLNOCO HealthcareComment on above:RESULTS CALLED TO Kiara REED Panel Informationon 43-00-4100Wjxdohdcghgofn and review of laboratory resultsAbnormalNOMS HealthcareCLINISYNCNOMS HealthcareAmphetamine Screen Ql (U)Ordered By: James Elaine on 96-48-6440Mogxomejgpzm Ql (U)Amphetamines screenNegativeFort Hamilton HospitalAmphetamines Ql (U)Negative NegativeFort Hamilton HospitalBarbiturates [Presence] in Urine by Screen methodOrdered By: Imrosalie Asarosalie on 42-78-6805Klokopvomtwd Screen Ql (U) NegativeNegativeFort Hamilton HospitalBarbiturates Screen Ql (U) Barbiturates [Presence] in Urine by Screen methodNegativeFort Hamilton HospitalBenzodiazepines Screen Ql (U)Ordered By: James Holbrook on 07-09-2024 Benzodiazepines Ql (U)NegativeNegShelby Memorial Hospital Benzodiazepines Ql (U)Benzodiazepines [Presence] in Urine by Screen method NegativeFort Hamilton HospitalBenzoylecgonine [Presence] in Urine by Screen methodOrdered By: Imrosalie Holbrook on 38-19-6838Nxzuaikmmqangno Screen Ql (U) NegativeNegativeFort Hamilton HospitalBenzoylecgonine Screen Ql (U) Benzoylecgonine [Presence] in Urine by Screen methodNegativeFort Hamilton HospitalCannabinoids [Presence] in Urine by Screen methodOrdered By: rosalie Holbrook on 21-17-8871Atjyqlqogpge Screen Ql (U)NegativeNegShelby Memorial HospitalComment on above:These are unconfirmed results and should not be used for legal purposes. Drug Cut-Off Concentration: AMPH 1000 ng/mL MAX 200 ng/mL JUHI 200 ng/mL COCM 300 ng/mL OP 300 ng/mL PCP 25 ng/mL THC 20 ng/mL Cannabinoids Screen Ql (U)Cannabinoids [Presence] in Urine by Screen method NegativeFort Hamilton HospitalComment on above:These are unconfirmed results and should not be used for legal purposes. Drug Cut-Off Concentration: AMPH 1000 ng/mL MAX 200 ng/mL JUHI 200 ng/mL COCM 300 ng/mL OP 300 ng/mL PCP 25 ng/mL THC 20 ng/mLDrug Screen,Urineon 11-48-2869Ttgzjostays Screen,Urine NegativeNormalNegativeTampa General Hospital Physician GroupComment on above:Performed By: #### URDS #### [facility] [address] [place] [address] USABarbiturate Screen,UrineNegativeNormalNegativeTampa General Hospital Physician GroupComment on above:Performed By: #### URDS #### [facility] [address] [place] [address] USABenzodiazepines Screen,UrineNegativeNormalNegativeTampa General Hospital Physician GroupComment on above:Performed By: #### URDS #### [facility] [address] [place] [address] USACannabinoid Screen,UrineNegativeNormalNegativeTampa General Hospital Physician GroupComment on above:Result Comment: These are unconfirmed results and should not be used for legal purposes. Drug Cut-Off Concentration: AMPH 1000 ng/mL MAX 200 ng/mL JUHI 200 ng/mL COCM 300 ng/mL OP 300 ng/mL PCP 25 ng/mL THC 20 ng/mL PERFORMED BY: [place] [address] PATHOLOGIST [employer] SPECIALIST ZUHAIR KAUR M.D.Performed By: #### URDS #### [facility] [address] [place] [address] USACocaine Screen,UrineNegativeNormalNegativeTampa General Hospital Physician GroupComment on above:Performed By: #### URDS #### [facility] [address] [place] [address] USAOpiate Screen,UrineNegativeNormalNegativeTampa General Hospital Physician GroupComment on above:Performed By: #### URDS #### [facility] [address] [place], [place] [address] USAPhencyclidine Screen,UrineNegativeNormalNegativeTampa General Hospital Physician GroupComment on above:Performed By: #### URDS #### [facility] [address] [place], [place] [address] USANo Panel InformationOrdered By: rosalie [facility] on 07-09-2024 Miscellaneous Pathology TestSee commentFort Hamilton HospitalComment on above:See report. Scanned copy available in EMR.Opiates [Presence] in Urine by Screen methodOrdered By: rosalie Elaine on 36-33-4348Xmsceyw Screen Ql (U) NegativeNegShelby Memorial HospitalOpiates Screen Ql (U)Opiates [Presence] in Urine by Screen methodNegShelby Memorial Hospital Pathology Request for Lab Corpon 23-61-8075Qpdwgvgmm Request for Lab CorpNormal [facility] Physician GroupComment on above:Order Comment: PATHOLOGY GI SPECIMENResult Comment: See report. Scanned copy available in EMR. PERFORMED BY: [place] [id number] PATHOLOGIST [employer] SPECIALIST ZUHAIR KAUR M.D.Performed By: #### PATH TO [facility] #### [place] [address] USAPhencyclidine Screen Ql (U)Ordered By: James Elaine on 50-47-8039Gzgdvdhfqnscf Ql (U)NegativeNegativeFort Hamilton Hospital Phencyclidine Ql (U)Phencyclidine [Presence] in Urine by Screen methodNegative Fort [facility] HospitalALL MAGNESIUMon 15-86-4895Seghcnjsi [Mass/Vol] 1.5 mg/dLLow1.8 - 2.4 mg/dLNOCO HealthcareALL RENAL FUNCTION PANELon 06-23-2024 Albumin [Mass/Vol]3.3 g/dLLow3.4 - 5.0 g/dLNOCO HealthcareAnion gap [Moles/Vol] 12.6 mmol/LNOMS HealthcareCalcium [Mass/Vol]8.7 mg/dL8.5 - 10.1 mg/dLNOCO HealthcareChloride [Moles/Vol]104 mmol/L98 - 107 mmol/LNOMS HealthcareCO2 [Moles/Vol]26.1 mmol/L21.0 - 32.0 mmol/LNOMS HealthcareCreatinine [Mass/Vol]1.72 mg/dLHigh0.70 - 1.30 mg/dLNOCO HealthcareGFR/1.73 sq M.predicted CKD-EPI (S/P/Bld) [Vol rate/Area]42Wlu29 - PINFNOMS HealthcareGlucose [Mass/Vol]114 mg/dLAbxh15 - 106 mg/dLNOCO HealthcarePhosphate [Mass/Vol]3.2 mg/dL2.6 - 4.7 mg/dLNOCO HealthcarePotassium [Moles/Vol]4.7 mmol/L3.5 - 5.1 mmol/LNOMS HealthcareSodium [Moles/Vol]138 mmol/L136 - 145 mmol/LNOMS HealthcareTBH EGFR- NON AF HXRZUNNY21Ynu82 - PINFNOMS HealthcareUrea nitrogen [Mass/Vol]30.0 mg/dL High7.0 - 18.0 mg/dLNOCO HealthcareUrea nitrogen/Creatinine [Mass ratio]17.4 mg/mgNOCO HealthcareALL URIC ACIDon 76-14-1842Ezmpw [Mass/Vol]8.0 mg/dLHigh3.5 - 7.2 mg/dLNOCO HealthcareEstimated glomerular filtration rate (GFR) non- Americanon 99-63-8456VKX/1.73 sq M.predicted among non-blacks MDRD (S/P/Bld) [Vol rate/Area]41 mL/min/{1.73_m2}Low>=60[facility] - Chemistry and Chemistry - challengeon 64-44-0222Qoltztp [Mass/Vol] 3.3 g/dLLow3.4-5.0[facility] HospitalCalcium [Mass/Vol]8.7 mg/dL 8.5-10.1FProtestant Deaconess HospitalChloride [Moles/Vol]104 mmol/L98-107 [facility] HospitalCO2 [Moles/Vol]26.1 mmol/L21.0-32.0[facility] HospitalCreatinine [Mass/Vol]1.72 mg/dLHigh0.70-1.30Fort [facility] HospitalGFR/1.73 sq M.predicted MDRD (S/P/Bld) [Vol rate/Area]50 mL/min/{1.73_m2}Low>=60Fort [facility] HospitalGlucose [Mass/Vol]114 mg/iSLwgq76-999FednesrbgFort Hamilton HospitalMagnesium [Mass/Vol]1.5 mg/dLLow 1.8-2.4FProtestant Deaconess HospitalPotassium [Moles/Vol]4.7 mmol/L3.5-5.1 [facility] Columbusodium [Moles/Vol]138 mmol/E659-967BpsrsvdepFort Hamilton HospitalUrate [Mass/Vol]8.0 mg/dLHigh3.5-7.2FProtestant Deaconess HospitalUrea nitrogen [Mass/Vol]30.0 mg/dLHigh7.0-18.0[facility] HospitalUrea nitrogen/Creatinine [Mass ratio]17.4 mg/mgFort Hamilton HospitalLaboratory - Urinalysison 90-44-1323Cdfhkoa (U) [Mass/Vol]12.6 mg/dLHigh<=11.9[facility] HospitalNo Panel Informationon 30-58-6606Ovbdr Random Gmoqxawbab58.13 mg/dL20.00-300.00Fort [facility] HospitalInterpretation and review of laboratory resultsAbnoOSS HealthCLINISYNCNOMS HealthcarePhosphorus Level3.2 mg/dL2.6-4.7FWooster Community Hospitalerum or plasma anion gap determinationon 04-27-4208Xsgfy gap [Moles/Vol]12.6 mmol/LFProtestant Deaconess HospitalUrine protein/creatinine ratioon 49-12-7977Xpfmioz/Creatinine (U) [Ratio]0.16Fort [facility] HospitalBasic Metabolic Panelon 88-85-1114Ntrrj gap [Moles/Vol]9 mmol/L5 - 15 mmol/[facility] Health SystemCalcium [Mass/Vol]9.5 mg/dL8.5 - 10.5 mg/dLJ.W. Ruby Memorial HospitalChloride [Moles/Vol]105 mmol/L98 - 109 mmol/L [facility] SystemCO2 [Moles/Vol]25 mmol/L22 - 32 mmol/LProMedMercy Health Springfield Regional Medical Center SystemCreatinine [Mass/Vol]1.60 mg/dLHigh0.60 - 1.30 mg/dLJ.W. Ruby Memorial HospitalComment on above:METHOD TRACEABLE TO [facility] STANDARDeGFR (CKD-EPI)non-race cyzlzbava09Sjb[address] [place], [place] [address]Comment on above: Reported eGFR is based on the CKD-EPI 2020 equation that does not use a race coefficient. Glucose [Mass/Vol]104 mg/mCDjmk25 - 99 mg/dLJ.W. Ruby Memorial Hospital Interpretation and review of laboratory resultsAbnoTyler Memorial Hospital System Potassium [Moles/Vol]4.2 mmol/L3.5 - 5.0 mmol/LProMedica Health SystemSodium [Moles/Vol]139 mmol/L134 - 146 mmol/LProMedica Health SystemUrea nitrogen [Mass/Vol]31 mg/dLHigh5 - 23 mg/dLAscension Columbia [facility] System CBC AUTO DIFFon 24-66-8656SGGH #0.1 103/ulNormal0.0-0.1The [facility] Comment on above:Performed By: #### CBC #### [facility] [address] [address] [address] Yilan ChangBasophils/100 WBC (Bld)0.9 %Normal0.2-2.0The [facility] Comment on above:Performed By: #### CBC #### [facility] [address] [place] [address] Dr. Lavonne Bell #0.4 103/ulNormal0.0-0.7The [facility] - CantonComment on above: Performed By: #### CBC #### [facility] [address] [place] [address] Dr. Lavonne Elizabethosinophils/100 WBC (Bld)4.5 %Normal0.9-7.0The [facility] Comment on above:Performed By: #### CBC #### [facility] [address] [place] [address] Dr. Lavonne Elizabethrythrocyte distribution width (RBC) [Ratio]13.4 %Ylxito71.0-15.0 The [facility] - CantonComment on above:Performed By: #### CBC #### [facility] [address] [place] [address] Dr. Lavonne TinocoHematocrit (Bld) [Volume fraction]45.0 %Spttfz79.0-54.0The [facility] CantonComment on above:Performed By: #### CBC #### [facility] [address] [place] [address] Dr. Lavonne TinocoHemoglobin (Bld) [Mass/Vol]15.1 g/sQXkqctn07.0-18.0The [facility] CantonComment on above:Performed By: #### CBC #### [facility] [address] [place] [address] Dr. Lavonne Hill #0.04 10e3/ulCritically high0.00-0.03The [facility] Comment on above:Performed By: #### CBC #### [facility] [address] [place] [address] Dr. Lavonne Hill %0.4 %Normal0.0-0.5The [facility] CantonComment on above: Performed By: #### CBC #### [facility] [address] [place] [address] Dr. Lavonne Portillo #2.0 103/ulNormal1.2-3.8The [facility] - CantonComment on above:Performed By: #### CBC #### [facility] [address] [place] [address] Dr. Lavonne Hahocytes/100 WBC (Bld)21.6 %Enqvao68.5-60.0The [facility] - CantonComment on above:Performed By: #### CBC #### [facility] [address] [place] [address] Dr. Lavonne Douglas DIFF REQNONormalThe [facility] - CantonComment on above: Performed By: #### CBC #### [facility] [address] [place] [address] Dr. Lavonne Rutherford (RBC) [Entitic mass]32.7 tbVskokg66.9-34.0The [facility] CantonComment on above:Performed By: #### CBC #### [facility] [address] [place] [address] Dr. Lavonne Rutherford (RBC) [Mass/Vol]33.6 g/aLPvaqys63.9-35.2The [facility] CantonComment on above:Performed By: #### CBC #### [facility] [address] [place] [address] Dr. Lavonne Rutherford (RBC) [Entitic vol]97.4 fLCritically high80.0-94.0The [facility] CantonComment on above:Performed By: #### CBC #### [facility] [address] [place] [address] Dr. Lavonne Askew #0.6 103/ulNormal0.3-0.8The [facility] - CantonComment on above:Performed By: #### CBC #### [facility] [address] [place] [address] Dr. Lavonne Keatingocytes/100 WBC (Bld)6.0 %Normal1.7-12.0The [facility] Comment on above:Performed By: #### CBC #### [facility] [address] [place] [address] Dr. Lavonne KnightUT #6.3 103/ulNormal1.4-6.5The [facility] - CantonComment on above:Performed By: #### CBC #### [facility] [address] [place] [address] Dr. Lavonne Knightutrophils/100 WBC (Bld)66.6 %Dzmcxl21.0-75.0[facility] Washington TownshipComment on above:Performed By: #### CBC #### [facility] [address] [place] [address] Dr. Lavonne TinocoPlatelet mean volume (Bld) [Entitic vol]10.7 fLNormal9.5-13.5The [facility] CantonComcorewell health big rapids hospital on above:Performed By: #### CBC #### [facility] [address] [place] [address] Dr. Lavonne TinocoPLT300 103/oeUgjxnp396-046Iew [facility] CantonComcorewell health big rapids hospital on above: Performed By: #### CBC #### [facility] [address] [place] [address] Dr. Lavonne TinocoRBC4.62 106/ulCritically low4.70-6.10The [facility] CantonComcorewell health big rapids hospital on above:Performed By: #### CBC #### [facility] [address] [place] [address] Dr. Lavonne TinocoWBC9.4 103/ulNormal4.0-11.0[facility] TownshipComcorewell health big rap[facility] hospital on above: Performed By: #### CBC #### [facility] [address] [place] [address] Dr. Lavonne TinocoFREE T4on 11-34-7697Bwsh T4 [Mass/Vol]0.90 ng/dLNormal0.76-1.46 The [facility] on above:Performed By: #### CMP, TSH, LIPID #### [facility] [address] [place] [address] Dr. Lavonne TinocoLIPID PROFILEon 92-15-1957ONBW-HDL RATIO NORMSEE BELOWNoMartins Ferry HospitalComcorewell health big rapids hospital on above:Result Comment: 3.3 - 4.4 LOW RISK 4.4 - 7.1 AVERAGE RISK 7.1 - 11.0 MODERATE RISK >11.0 HIGH RISKPerformed By: #### CMP, TSH, LIPID #### [facility] [address] [place] [address] Dr. Lavonne TinocoCholesterol [Mass/Vol]207 mg/dLCritically high<=200The [facility] on above:Performed By: #### CMP, TSH, LIPID #### [facility] [address] [place] [address] Dr. Lavonne Camargoesterol in HDL [Mass/Vol]37 mg/dLCritically utn42-47JxoKettering Health Washington TownshipComcorewell health big rapids hospital on above:Performed By: #### CMP, TSH, LIPID #### [facility] [address] [place] [address] Dr. Lavonne TinocoCholesterol in LDL [Mass/Vol]143.8 mg/dLUniversity Hospitals St. John [facility] on above:Performed By: #### CMP, TSH, LIPID #### [facility] [address] [place] [address] Dr. Lavonne Camargoesterzoran.total/Cholesterol in HDL [Mass ratio]5.6 {ratio} NormalVan Wert County Hospital on above:Performed By: #### CMP, TSH, LIPID #### [facility] [address] [place] [address] Dr. Lavonne South NORMAL> or = 60 mg/dl - LOW CARDIOVASCULAR RISK <40 mg/dl - HIGH CARDIOVASCULAR RISKUniversity Hospitals St. John Medical Center on above:Performed By: #### CMP, TSH, LIPID #### [facility] [address] [place] [address] Dr. Lavonne TinocoLDL CALC NORMALSEE BELOWUniversity Hospitals TriPoint Medical CenterComcorewell health big rap[facility] hospital on above:Result Comment: <100 mg/dl OPTIMAL 100 - 129 mg/dl NEAR OR ABOVE OPTIMAL 130 - 159 mg/dl BORDERLINE HIGH 160 - 189 mg/dl HIGH >190 mg/dl VERY HIGH Performed By: #### CMP, TSH, LIPID #### [facility] [address] [place] [address] Dr. Lavonne TinocoTriglyceride [Mass/Vol]131 mg/dLNormal<=150The [facility] Comment on above:Performed By: #### CMP, TSH, LIPID #### [facility] [address] [address] [address] Lavonne TinocoVLDL CALC26.2 mg/dLNormalThe [facility] - CantonComment on above: Performed By: #### CMP, TSH, LIPID #### [facility] [address] [address] [address] Lavonne TinocoPROF 14(COMP METB)on 07-18-6170Vdzbhhk [Mass/Vol]3.6 g/dLNormal 3.4-5.0The [facility] - CantonComment on above:Performed By: #### CMP, TSH, LIPID #### [facility] [address] [place] [address] Dr. Lavonne TinocoAlbumin/Globulin [Mass ratio]1.0 {ratio}NormalThe [facility] - CantonComment on above:Performed By: #### CMP, TSH, LIPID #### [facility] [address] [address] [address] Lavonne Rodas [Catalytic activity/Vol]85 U/CIroblu02-345Anp McKitrick Hospitalment on above:Performed By: #### CMP, TSH, LIPID #### [facility] [address] [place] [address] Dr. Lavonne Yepez [Catalytic activity/Vol]33 U/QCvuroh89-98Iti [facility] CantonComment on above:Performed By: #### CMP, TSH, LIPID #### [facility] [address] [address] [address] Lavonne Albrecht gap [Moles/Vol]9.2 mmol/LNormalThe [facility] CantonComcorewell health big rapids hospital on above:Performed By: #### CMP, TSH, LIPID #### [facility] [address] [place] [address] Dr. Lavonne Cota [Catalytic activity/Vol]17 U/DCyebfy11-96Tbd [facility] CantonComment on above:Performed By: #### CMP, TSH, LIPID #### [facility] [address] [address] [address] Lavonne TinocoBilirubin [Mass/Vol]0.5 mg/dLNormal0.2-1.0The [facility] Comment on above:Performed By: #### CMP, TSH, LIPID #### [facility] [address] [address] [address] Lavonne TinocoCalcium [Mass/Vol]8.5 mg/dLNormal8.5-10.1The [facility] Comment on above:Performed By: #### CMP, TSH, LIPID #### [facility] [address] [address] [address] Lavonne TinocoChloride [Moles/Vol]106 mmol/CBwozdc47-855Owd [facility] Comment on above:Performed By: #### CMP, TSH, LIPID #### [facility] [address] [place] [address] Dr. Lavonne TinocoCO2 [Moles/Vol]31.3 mmol/OXxelpi07.0-32.0The [facility] Comment on above:Performed By: #### CMP, TSH, LIPID #### [facility] [address] [address] [address] Lavonne TinocoCreatinine [Mass/Vol]1.06 mg/dLNormal0.70-1.30The [facility] CantonComment on above:Performed By: #### CMP, TSH, LIPID #### [facility] [address] [place] [address] Dr. Lavonne ElizabethGFR-AF MOROCCAN>60Normal>=60The [facility] - CantonComment on above:Performed By: #### CMP, TSH, LIPID #### [facility] [address] [address] [address] Lavonne ElizabethGFR-NON AF MOROCCAN>60Normal>=60The [facility] - CantonComment on above:Performed By: #### CMP, TSH, LIPID #### [facility] [address] [place] [address] Dr. Lavonne TinocoGlobulin (S) [Mass/Vol]3.6 g/dLNormalThe Dallas HospitalComment on above:Performed By: #### CMP, TSH, LIPID #### [facility] [address] [address] [address] Lavonne TinocoGlucose [Mass/Vol]101 mg/pTCswbau14-419BjbKettering Health Washington Township Comment on above:Performed By: #### CMP, TSH, LIPID #### [facility] [address] [place] [address] Dr. Lavonne TinocoPotassium [Moles/Vol]3.5 mmol/LNormal3.5-5.1The [facility] Comment on above:Performed By: #### CMP, TSH, LIPID #### [facility] [address] [place] [address] Dr. Lavonne TinocoProtein [Mass/Vol]7.2 g/dLNormal6.4-8.2[facility] Comment on above:Performed By: #### CMP, TSH, LIPID #### [facility] [address] [place] [address] Dr. Lavonne TinocoSodium [Moles/Vol]143 mmol/CGimprc839-523EokKettering Health Washington Township Comment on above:Performed By: #### CMP, TSH, LIPID #### [facility] [address] [place] [address] Dr. Lavonne TinocoUrea nitrogen [Mass/Vol]21.0 mg/dLCritically high7.0-18.0[facility] Washington TownshipComment on above:Performed By: #### CMP, TSH, LIPID #### [facility] [address] [place] [address] Dr. Lavonne Rene nitrogen/Creatinine [Mass ratio]19.8 mg/mgNoMartins Ferry HospitalComment on above:Performed By: #### CMP, TSH, LIPID #### [facility] [address] [place] [address] Dr. Lavonne Meyer 56-18-8576OBG2.947 uIU/mLNormal0.358-3.740[facility] Washington TownshipComment on above:Performed By: #### CMP, TSH, LIPID #### [facility] [address] [address] [address] Lavonne Massey RANDOM W/MICROSCOPICon 61-06-6104HMZIYUROWLHM SEENNormalNONE SEENKettering Health Washington TownshipComment on above:Performed By: #### UAMIC #### [facility] [address] [address] [address] Lavonne TinocoBilirubin Ql (U)NegativeNormalNEGATIVEKettering Health Washington Township Comment on above:Performed By: #### UAMIC #### [facility] [address] [address] [address] Lavonne TinocoCASTNONE SEENNormalNONE SEENKettering Health Washington TownshipComment on above:Performed By: #### UAMIC #### [facility] [address] [address] [address] Lavonne TinocoClarity (U)CLEARNormalCLEARKettering Health Washington TownshipComment on above: Performed By: #### UAMIC #### [facility] [address] [address] [address] Lavonne TinocoColor (U)YELLOWNormalYELLOWKettering Health Washington TownshipComment on above: Performed By: #### UAMIC #### [facility] [address] [place] [address] Dr. Lavonne TinocoCrystals LM Nom (Urine sed)NONE SEENNormalNONE SEENKettering Health Washington TownshipComment on above:Performed By: #### UAMIC #### [facility] [address] [address] [address] Banerjee ChangEpithelial cells LM Ql (Urine sed)FEWAbnormalNONE SEEN /RAREKettering Health Washington TownshipComment on above:Performed By: #### UAMIC #### [facility] [address] [address] [address] Lavonne TinocoGlucose Ql (U)NegativeNormalNEGATIVEKettering Health Washington TownshipComment on above:Performed By: #### UAMIC #### [facility] [address] [address] [address] Lavonne TinocoHemoglobin Ql (U)NegativeNormalNEGATIVEKettering Health Washington Township Comment on above:Performed By: #### UAMIC #### [facility] [address] [address] [address] Lavonne Garza Ql (U)NegativeNormalNEGATIVEThe [facility] CantonComment on above:Performed By: #### UAMIC #### [facility] [address] [address] [address] Lavonne TinocoLEUKOCYTESTRACEAbnormalNEGATIVEThe Dallas HospitalComment on above:Performed By: #### UAMIC #### [facility] [address] [place] [address] Dr. Lavonne FlahertyCOUSNONMichelle SEENNormalNONE SEENKettering Health Washington TownshipComment on above:Performed By: #### UAMIC #### [facility] [address] [place] [address] Dr. Lavonne Cline Ql (U)NegativeNormalNEGATIVEThe [facility] CantonComment on above:Performed By: #### UAMIC #### [facility] [address] [place] [address] Dr. Lavonne TinocopH (U)6.0 [pH]Normal5-9The [facility] CantonComment on above: Performed By: #### UAMIC #### [facility] [address] [place] [address] Dr. Lavonne TinocoRBCNCHRISTAL SEENAbnormal0-2The [facility] CantonComment on above: Performed By: #### UAMIC #### [facility] [address] [place] [address] Dr. Lavonne TinocoSPEC GRAVITY1.058Gpscdp3.005-<=1.025The [facility] CantonComment on above:Performed By: #### UAMIC #### [facility] [address] [place] [address] Dr. Lavonne Massey PROTEINTRACENormalNEGATIVE/ TRACEThe Dallas HospitalComment on above:Performed By: #### UAMIC #### [facility] [address] [place] [address] Dr. Lavonne Blasbillisbethgen Qn (U)2.0 {Erick'U}/dLAbnormal0.2 - 1.0The [facility] CantonComment on above:Performed By: #### UAMIC #### [facility] [address] [place] [address] Dr. Lavonne TinocoWBC0-2AbnormalNONE SEENThe [facility] CantonComment on above: Performed By: #### UAMIC #### [facility] [address] [place] [address] Dr. Lavonne TinocoNM STRESS/REST MULTIon [id number] STRESS/REST MULTIPatient: ABRAM GUILLAUME Exam Date: 04/04/2022 : 1965 Gender:M Ordering : ROSI PEPPER [facility] Admission #: [id number] Family : Order #: [id number] CLICK HERE TO VIEW EXAM RADIOLOGY REPORT [...] by: Cris Kline MD on 04/04/2022 at 13:[address] [place] [address] ECHOCARDIO M/2D COMPLETEon 29-74-1968PCKGYUVPPL M/2D COMPLETEPatient: ABRAM GUILLAUME Exam Date: 02/27/2022 : 1965 Gender:M Ordering : [facility] Admission #: [id number] Family : Order #: [id number] CLICK HERE TO VIEW EXAM ECHOCARDIOGRAM REPORT [...] Area(A4C): 21.60 cm2 Left Atrium Systolic Volume(A2C): 25505 mm3 Left Atrium Systolic Volume(A4C): 70476 mm3 Mitral Valve MV E to A [...] by: Dylan Peck M.D. on 02/28/2022 at 11:[address] [id number] Department of Radiology [address] [place] [id number] Patient Name: ABRAM GUILLAUME : 1965 [...] Weight Bearing?: Y Exam: ANKLE LEFT 3 S ANKLE LEFT 3 S 01/11/2022 9:13 AM CLINICAL INDICATIONS: M25.572 Pain [...] changes as detailed above Electronically signed: Violeta Wood. Transcribed by: [email or web address], User Resident: Electronically Signed by: VIOLETA WOOD @ 01/12/2022 03:24 [facility] TroyComment on above:Order Comment: Views (X-RAY, ANKLE): AP, Lateral, Mortise , Weight Bearing?: YGLYCOHEMOGLOBIN A1Con 13-74-2143TAD RECOMMENDATIONADA THERAPEUTIC TARGET 6.0 - 7.0 ACTION SUGGESTED > 7.0NoMartins Ferry HospitalComment on above:Performed By: #### A1C #### [facility] [address] [place] [address] Dr. Lavonne TinocoGlucose [Mass/Vol]100 mg/dLNoMartins Ferry HospitalComment on above:Performed By: #### A1C #### [facility] [address] [address] [address] Lavonne TinocoHbA1c (Bld) [Mass fraction]5.1 %Normal<=6.0[facility] Comment on above:Performed By: #### A1C #### [facility] [address] [place] [address] Dr. Lavonne TinocoMAGNESIUMon 56-91-0575Waxbbukrp [Mass/Vol]1.7 mg/dLNormal1.6-2.3 The [facility] CantonComment on above:Performed By: #### MG, BMP #### [facility] [address] [place] [address] Dr. Lavonne TinocoPROF CHEM 8 (BAS METB)on 01-69-9767Rpsdf gap [Moles/Vol]12.3 mmol/LNormalThe [facility] CantonComment on above:Performed By: #### MG, BMP #### [facility] [address] [place] [address] Dr. Lavonne TinocoCalcium [Mass/Vol]8.7 mg/dLNormal8.5-10.1[facility] Comment on above:Performed By: #### MG, BMP #### [facility] [address] [place] [address] Dr. Lavonne TinocoChloride [Moles/Vol]107 mmol/ZEibljo28-431Xzl [facility] Comment on above:Performed By: #### MG, BMP #### [facility] [address] [place] [address] Dr. Lavonne TinocoCO2 [Moles/Vol]27.4 mmol/JMeoucj01.0-30.0The [facility] Comment on above:Performed By: #### MG, BMP #### [facility] [address] [place] [address] Dr. Lavonne TinocoCreatinine [Mass/Vol]1.50 mg/dLCritically high0.66-1.25The [facility]onComment on above:Performed By: #### MG, BMP #### [facility] [address] [address] [address] Lavonne ElizabethGFR-AF GQBJEPMU12 mL/min/1.42o9Xgrugljfua low>=60The [facility] CantonComment on above:Performed By: #### MG, BMP #### [facility] [address] [address] [address] Lavonne ElizabethGFR-NON AF CZUQPSOK56 mL/min/1.04a6Pejdvdptoc low>=60The [facility] CantonComment on above:Performed By: #### MG, BMP #### [facility] [address] [address] [address] Lavonne TinocoGlucose [Mass/Vol]103 mg/pMYlyopx78-412Pzq [facility] Comment on above:Performed By: #### MG, BMP #### [facility] [address] [address] [address] Lavonne TinocoPotassium [Moles/Vol]3.7 mmol/LNormal3.4-5.0[facility] Comment on above:Performed By: #### MG, BMP #### [facility] [address] [address] [address] Lavonne TinocoSodium [Moles/Vol]143 mmol/YAwznod305-445NrhKettering Health Washington Township Comment on above:Performed By: #### MG, BMP #### [facility] [address] [address] [address] Lavonne TniocoUrea nitrogen [Mass/Vol]17.0 mg/dLNormal7.0-18.0The [facility]onComment on above:Performed By: #### MG, BMP #### [facility] [address] [address] [address] Lavonne TinocoUrea nitrogen/Creatinine [Mass ratio]11.3 mg/mgNoalThUniversity Hospitals Ahuja Medical CenterComment on above:Performed By: #### MG, BMP #### [facility] [address] [place] [address] Dr. Lavonne Tinoco Vital Signs Date TimeVital SignValuePerforming MmmfdoegyRrnpmrdm96-23-4224 10:18-0400Body sfzrgi148.3 cmMohelen Kumar MD Work Phone: 1(624)[facility]10-30-2025 10:18-0400Body mass index (BMI) [Ratio]41.64 kg/g1MccsmihRobert Kumar MD Work Phone: 1(229)[facility]10-30-2025 10:18-0400Body nkmhry107.91 kgRobert Kumar MD Work Phone: 1(405)[facility]10-30-2025 10:18-0400Diastolic blood mm[Hg]Robert Kumar MD Work Phone: 1(861)[facility]10-30-2025 10:180400Systolic blood lapmjfzz044 mm[Hg]Robert Kumar MD Work Phone: 1(000)[facility]10-20-2025 09:27-0400Body .26 cmLisa Aichholz [employer]C Work Phone: 1(529)396-[address] [place], [place] 75[address]310-20-2025 09:27-0400 Body mass index (BMI) [Ratio]41.5 kg/m2Lisa Aichholz [employer] Work Phone: 1(270)002-[address] [place], [place] 75[address]310-20-2025 09:27-0400 Body hdiwvotwotp80.8 [degF]Pepper Aichholz [employer] Work Phone: 1([phone] [place], [place] [address]310-20-2025 09:27-0400 Body mpfvpa186.68 kgLisa Aichholz [employer]C Work Phone: 1(389)917-[address] [place], [place] [address]310-20-2025 09:27-0400 Diastolic blood crchmbzo977 mm[Hg]Pepper Aichholz [employer] Work Phone: 1(911)666-[address] [place], [place] [address]310-20-2025 09:27-0400 Heart rate79 /minLisa Aichholz [employer] Work Phone: 1(796)702-[address] [place], [place] [address]310-20-2025 09:27-0400 Respiratory rate22 /minLisa Aichholz [employer] Work Phone: [facility]10-20-2025 09:27-0400 SaO2% (BldA) [Mass fraction]94 %Pepper Serratosrinivasa [employer]TER[employer] Work Phone: [facility]10-20-2025 09:27-0400 Systolic blood dyepbawy680 mm[Hg]Pepper Serratosrinivasa [employer] Work Phone: [facility]10-13-2025 10:04-0400 Body xqttak814.[address]10-13-2025 10:04-0400Body mass index (BMI) [Ratio]39.87 kg/m[address]10-13-2025 10:04-0400 Body .[address]08-14-2025 08:25-0400Body mass index (BMI) [Ratio]39.67 kg/m2Pepper Javierpricillasrinivasa [employer]TER Work Phone: [facility] CenterNocuoubmad17-52-6548 08:25-0400Body temperature 97.81 [degF]Pepper Serratosrinivasa [employer]TER Work Phone: [facility] CenterEnrydzgkle35-02-4301 08:25-0400Body .84 kgPepper Javierpricillasrinivasa [employer]TER Work Phone: [facility] CenterOcjobftour80-89-3743 08:25-0400Diastolic blood sunpcoax41 mm[Hg]Pepper Serratosrinivasa [employer] SETTER Work Phone: [facility] CenterYqdmcfhyyk37-33-6362 08:25-0400Heart rate95 /min Pepper Carlie [employer]TER Work Phone: [address] [address]Zrqewjuipt22-26-2019 08:25-0400Respiratory rate22 /minLi Carlie [employer]TER Work Phone: [address] [address]Xabztndiet80-06-7652 08:25-1632CmP2% (BldA) [Mass fraction]92 %Pepper Carlie [employer]TER Work Phone: [address] [address]Drxjzaldfj40-13-5258 08:25-0400Systolic blood dixzabnd457 mm[Hg]Pepper Sexton [employer]TER Work Phone: [facility] CenterIervljikqi30-94-9610 08:46-0400Body pvkqiq875.3 cmRobert Kumar MD Work Phone: 1(851)[facility]08-07-2025 08:46-0400Body mass index (BMI) [Ratio]39.13 kg/k9YevarqmRobert Kumar MD Work Phone: 1(256)[facility]08-07-2025 08:46-0400Body .2 kgRobert Kumar MD Work Phone: 1(712)[facility]08-07-2025 08:46-0400Diastolic blood xgauorvb315 mm[Hg]Robert Kumar MD Work Phone: 1(248)[facility]08-07-2025 08:46-0400Heart rate 97 /minMohelen Kumar MD Work Phone: 1(175)[facility]08-07-2025 08:46-2447RaG9% (BldA) [Mass fraction]91 %Robert Kumar MD Work Phone: 1(000)[facility]08-07-2025 08:46-0400Systolic blood ukxtiqqt760 mm[Hg]Robert Kumar MD Work Phone: 1(267)[facility]07-16-2025 08:20-0400Body mass index (BMI) [Ratio]38.4 kg/m2Pepper Sexton [employer]TER Work Phone: [facility] CenterRweunswsdg49-26-2021 08:20-0400Body temperature 97.81 [degF]Pepper Sexton [employer]TER Work Phone: [facility] CenterFgugzirkay66-15-9796 08:20-0400Body kbxuvk209.94 kgPepper Sexton [employer]TER Work Phone: [facility] CenterEsoabwymzx43-66-8847 08:20-0400Diastolic blood vlrqugvo218 mm[Hg]Pepper Aichholz [employer]TER Work Phone: [facility] CenterQufzdtdvaq90-16-6132 08:20-0400Heart rate97 /min Pepper Aichholz [employer]TER Work Phone: [facility] CenterKdwinasyqg19-75-0236 08:20-0400Respiratory rate18 /minLisa Aichholz [employer]TER Work Phone: [facility] CenterWbismkdcdd05-21-2360 08:20-5709VvX9% (BldA) [Mass fraction]93 %Pepper Aichholz [employer]TER Work Phone: [facility] CenterJzhfhdvaxr60-28-2715 08:20-0400Systolic blood mamnyesv275 mm[Hg]Pepper Aichholz [employer]TER Work Phone: [facility] CenterWcewbdilbn64-58-9925 14:45-0400Diastolic blood qshihhel291 mm[Hg]Pepper Aichholz Work Phone: 1(332)[address]07-15-2025 14:45-0400 Heart ovrx163 /minLisa Aichholz Work Phone: 1(973)[address]07-15-2025 14:45-0400 Systolic blood mhoxhche162 mm[Hg]Pepper Aichholz Work Phone: 1(279)[address]07-15-2025 14:39-0400 Body .21 kgLisa Aichholz Work Phone: 1(534)9-[address] [place], [place] [address]307-15-2025 14:39-0400 Respiratory rate18 /minLisa Aichholz Work Phone: 1(724)777-[address] [place], [place] [address]307-15-2025 14:39-0400 SaO2% (BldA) [Mass fraction]96 %Pepper Aichholz Work Phone: 1(919)[address]07-10-2025 09:49-0400 Body dovooz976.3 cmMohamed José CARTAGEAN Work Phone: 1(656)[facility]07-10-2025 09:49-0400Body mass index (BMI) [Ratio]37.66 kg/o1CcmznrlRobert Kumar MD Work Phone: 1(328)[facility]07-10-2025 09:49-0400Body .67 kgRobert Kumar MD Work Phone: 1(793)[facility]07-10-2025 09:49-0400Diastolic blood bitzraql478 mm[Hg]Robert Kumar MD Work Phone: 1(528)[facility]07-10-2025 09:49-0400Heart rate 91 /minRobert Kumar MD Work Phone: 1(750)[facility]07-10-2025 09:49-0400Systolic blood jdhspafk429 mm[Hg]Robert Kumar MD Work Phone: 1(856)[facility]06-16-2025 08:54-0400Diastolic blood oospjonv78 mm[Hg]Pepper Carlie [employer]TER Work Phone: 1(693)412-[address] [place], [place] [address]Fextblgkvd19-86-4149 08:54-0400Systolic blood ejpkgjaz460 mm[Hg]Pepper Aichholz [employer]TER Work Phone: [facility] CenterMaqcpxmhwo89-72-9784 08:26-0400Body mass index (BMI) [Ratio]38.28 kg/m2Lisa Aichholz [employer]TER Work Phone: [facility] CenterIicnzdayex80-79-7833 08:26-0400Body temperature 98.1 [degF]Pepper Javierhayleenz [employer]TER Work Phone: 1(566)639-[address] [place], [place] [address]Dpzjunehsa49-70-5385 08:26-0400Body anvvjg313.57 kgLisa Aichholz [employer]TER Work Phone: [facility] CenterRkuwssgrih51-33-4875 08:26-0400Heart rate76 /min Pepper Javierhholz [employer]TER Work Phone: [facility] CenterLyqiixdrvy57-64-6343 08:26-0400Respiratory rate20 /minLisa Aichholz [employer]TER Work Phone: 1(419)547-[address] [place], [place] [address]Skaifrvwaw22-38-9486 08:26-6673DpB9% (BldA) [Mass fraction]94 %Pepper Sexton [employer] SETTER Work Phone: [facility] CenterHjykqkcrxp73-06-4405 16:45-0400Body mass index (BMI) [Ratio]38.16 kg/m2Pepper Sexton [employer]TER Work Phone: [facility] CenterRgoskrsoyy30-26-3247 16:45-0400Body temperature 98.01 [degF]Pepper Sexton [employer]TER Work Phone: [facility] CenterUmhflhcbxo21-72-3959 16:45-0400Body vjuosy978.21 kgLisa Sexton [employer] SETTER Work Phone: [facility] CenterXrdmsjtplm55-02-0345 16:45-0400Diastolic blood omurfwrx10 mm[Hg]Pepper Sexton [employer]TER Work Phone: [facility] CenterNojeeqlicw06-63-0077 16:45-0400Heart mmli831 /min Pepper Sexton [employer]TER Work Phone: [facility] CenterBskscqtebr13-17-5594 16:45-0400Respiratory rate22 /minLisa Sexton [employer] SETTER Work Phone: [facility] CenterEkhyahoimr30-51-6219 16:45-5840KcJ3% (BldA) [Mass fraction]94 %Pepper Sexton [employer]TER Work Phone: [facility] CenterKzvrhkkycg82-81-9412 16:45-0400Systolic blood guoupvid082 mm[Hg]Pepper Sexton [employer]TER Work Phone: [facility] CenterPqsoeswoyg88-87-3931 09:06-0400Body biamcx040.3 Juan F Velaz [employer] SETTER Work Phone: [facility] CenterKaxrsxnsnf35-17-9947 09:06-0400Body mass index (BMI) [Ratio]40.46 kg/m2Pepper Sexton [employer]TER Work Phone: [facility] CenterTxcjcvetbx57-54-4886 09:06-0400Body temperature 97.81 [degF]Pepper Aichholz [employer]TER Work Phone: [facility] CenterOwhhmqhkzz62-06-4044 09:06-0400Body hpqivq918.29 kgLisa Aichholz [employer] SETTER Work Phone: [facility] CenterJlibjckyme36-08-7310 09:06-0400Diastolic blood ewytxltd14 mm[Hg]Pepper Aichholz [employer] SETTER Work Phone: [facility] CenterUfspvujpzj93-68-4375 09:06-0400Heart rate91 /min Pepper Aichholz [employer]TER Work Phone: [facility] CenterNfznraaijn84-36-0431 09:06-0400Respiratory rate18 /minLisa Aichholz [employer] SETTER Work Phone: [facility] CenterVzvmbxklub32-49-1000 09:06-4702YvK3% (BldA) [Mass fraction]93 %Pepper Aichholz [employer] SETTER Work Phone: [facility] CenterRluqpvqfjv14-35-1072 09:06-0400Systolic blood cmyhkjzd756 mm[Hg]Pepper Aichholz [employer]TER Work Phone: [facility] CenterRfbjvnkopf01-31-3968 13:45-0400Body hypayl213.26 cmLisa Aichholz Work Phone: 1(482)317-[address] [place], [place] 75[address]303-12-2025 13:45-0400 Body mass index (BMI) [Ratio]41 kg/m2Lisa Aichholz Work Phone: 1(717)316-[address] [place], [place] 7569303-12-2025 13:45-0400 Body .09 kgLisa Aichholz Work Phone: 1(168)089-[address] [place], [place] [address]303-12-2025 13:45-0400 Diastolic blood hlrzzehg10 mm[Hg]Pepper Aichholz Work Phone: 1(870)523-[address] [place], [place] [address]303-12-2025 13:45-0400 Heart rate89 /minLisa Aichholz Work Phone: 1(927)295-[address] [place], [place] [address]303-12-2025 13:45-0400 Respiratory rate18 /minLisa Rojelioholz Work Phone: [facility]03-12-2025 13:45-0400 SaO2% (BldA) [Mass fraction]95 %Pepper Serratoholz Work Phone: [facility]03-12-2025 13:45-0400 Systolic blood rcintlfe285 mm[Hg]Pepper Rojelioholz Work Phone: 1(699)[address]01-15-2025 09:05-0500 Body .3 Juan F Serratoayleenz [employer] SETTER Work Phone: 1(363)884-[address] [place], [place] [address]Wevbynooyz46-16-8951 09:05-0500Body mass index (BMI) [Ratio]41.47 kg/m2Pepper Serratoholz [employer] SETTER Work Phone: [facility] CenterUkeiljymqj29-54-0651 09:05-0500Body temperature 97.81 [degF]Pepper Serratoayleenz [employer] SETTER Work Phone: [facility] CenterGaqhgphnmc29-69-7880 09:05-0500Body areolz597.37 kgLisa Serratoholz [employer] SETTER Work Phone: [facility] CenterNsluqrwxqg08-40-4707 09:05-0500Diastolic blood ludlkzyr57 mm[Hg]Pepper Rojelioholz [employer] SETTER Work Phone: [facility] CenterHminaeeiga43-67-9217 09:05-0500Heart rate92 /min Pepper Javierhholz [employer] SETTER Work Phone: [facility] CenterRchbasfrib50-72-6156 09:05-0500Respiratory rate22 /minLisa Javierhholz [employer] SETTER Work Phone: [facility] CenterGqdhvkuvfe87-42-6954 09:05-7963NcM2% (BldA) [Mass fraction]96 %Pepper Rojelioholz [employer] SETTER Work Phone: [facility] CenterXnrkqvjqyt28-38-1950 09:05-0500Systolic blood glmongrv388 mm[Hg]Pepper Javierhholz [employer] SETTER Work Phone: [facility] CenterHeqozotlfs85-79-2788 09:05-0500Diastolic blood ltlhtvfe20 mm[Hg]Pepper Aichholz Work Phone: 1(516)[address]01-14-2025 09:05-0500 Heart rate88 /minLisa Aichholz Work Phone: 1(362)[address]01-14-2025 09:05-0500 Respiratory rate18 /minLisa Aichholz Work Phone: 1(386)[address]01-14-2025 09:05-0500 SaO2% (BldA) [Mass fraction]96 %Pepper Aichholz Work Phone: 1(996)[address]01-14-2025 09:05-0500 Systolic blood eaiczmty867 mm[Hg]Pepper Aichholz Work Phone: 1(620)[address] [place], [place] 0785601-14-2025 07:31-0500 Body mwcyes885.8 cmLisa Aichholz Work Phone: 1(661)[address]01-14-2025 07:31-0500 Body rhrafr760.66 kgLisa Aichholz Work Phone: 1(829)[address]10-17-2024 13:55-0400 Diastolic blood ihrhpsbh22 mm[Hg]Pepper Aichholz Work Phone: 1(981)[address]10-17-2024 13:55-0400 Heart rate74 /minLisa Aichholz Work Phone: 1(046)[address] [place], [place] [address]85610-17-2024 13:55-0400 Respiratory rate18 /minLisa Aichholz Work Phone: 1(140)[address]10-17-2024 13:55-0400 SaO2% (BldA) [Mass fraction]100 %Pepper Aichholz Work Phone: 1(737)[address]10-17-2024 13:55-0400 Systolic blood wtljbbma885 mm[Hg]Pepper Aichholz Work Phone: 1(830)753-[facility]10-17-2024 11:51-0400 Body .26 cmLisa Aichholz Work Phone: 1(068)479[facility]Fort [facility]10-17-2024 11:51-0400 Body moynyvsjqss24.6 [degF]Pepper Aichholz Work Phone: 1(753)[address]10-17-2024 11:51-0400 Body hcolrk968.9 kgLisa Aichholz Work Phone: 1(271)[address]10-14-2024 09:44-0400 Body jrlcvy487.3 Chiloisa Javierhholz [employer] SETTER Work Phone: [facility] CenterVsqedrdtmk54-03-4510 09:44-0400Body mass index (BMI) [Ratio]37.18 kg/m2Lisa Aichholz [employer] SETTER Work Phone: [facility] CenterWtargxlvwr98-14-0523 09:44-0400Body temperature 98.1 [degF]Pepper Aichholz [employer] SETTER Work Phone: [facility] CenterJojsluihrb00-26-8697 09:44-0400Body .22 kgLisa Aichholz [employer] SETTER Work Phone: [facility] CenterQbhektfyby22-73-5915 09:44-0400Diastolic blood kwlvbihn66 mm[Hg]Pepper Aichholz [employer] SETTER Work Phone: [facility] CenterBepddznbcd22-07-3549 09:44-0400Heart rate79 /min Pepper Aichholz [employer] SETTER Work Phone: [facility] CenterIqbxkezpfn49-15-7862 09:44-0400Respiratory rate19 /minLisa Aichholz RHINESTONE SETTER Work Phone: [facility] CenterJbfxdhynok27-03-9510 09:44-3730WnR4% (BldA) [Mass fraction]93 %Pepper Aichholz RHINESTONE SETTER Work Phone: [facility] CenterDnayynnxgu78-17-1411 09:44-0400Systolic blood mm[Hg]Pepper Carlie RHINESTONE SETTER Work Phone: [facility] CenterHodfnvdlqb48-60-6614 08:39-0400Body ftlevq070.26 cmFort [facility]10-02-2024 08:39-0400Body mass index (BMI) [Ratio]42.3 kg/q8JccdserdyFort Hamilton Hospital10-02-2024 08:39-0400Body ivbceo822 kgFort [facility]10-01-2024 08:50-0400Body height 175.26 cmFort [facility]10-01-2024 08:50-0400Body mass index (BMI) [Ratio]42.3 kg/h0GmapyxsxpFort Hamilton Hospital10-01-2024 08:50-0400 Body tczavzeajts09.2 [degF][facility]10-01-2024 08:50-0400Body miosjz005.89 kgFort [facility]10-01-2024 08:50-0400Diastolic blood npackbgx37 mm[Hg][facility] 06-23-2024 08:50-0400Heart rate91 /[facility] 06-23-2024 08:50-0400Respiratory rate18 /[facility] 06-23-2024 08:50-1893EtT8% (BldA) [Mass fraction]93 %[facility]10-01-2024 08:50-0400Systolic blood dewgjimy801 mm[Hg][facility]08-05-2024 08:35-0400Body yondhu600.[address]08-05-2024 08:35-0400Body mass index (BMI) [Ratio]38.4 kg/m2Pmh [address] [place], [place] [address]8-05-2024 08:35-0400Body jbjyhb007.[address] [place], [place] 5052806-27-2024 09:37-0400Body isqesd249.26 cmFort [facility] 03-19-2024 09:37-0400Body mass index (BMI) [Ratio]39.4 kg/l0NuzdcvvxbFort [facility] Hospital06-27-2024 09:37-0400Body azmbyupgbuz40.8 [degF][facility]06-27-2024 09:37-0400Body npfisc138.1 kgFort [facility]06-27-2024 09:37-0400Diastolic blood dhudohcl62 mm[Hg][facility]06-27-2024 09:37-0400Heart rate94 /minFort [facility] Hospital06-27-2024 09:37-0400Respiratory rate20 /[facility]06-27-2024 09:37-4234MgY2% (BldA) [Mass fraction]95 %[facility]06-27-2024 09:37-0400Systolic blood rusgquod059 mm[Hg] [facility] Encounters Encounter DateEncounter TypeCare ProviderFacilityStart: 07-22-2025 End: 07-53-9412Iszfqa outpatient visit 10 minutesMofranciscan children's Sonia Kumar MD Work Phone: [facility] FremontComment on above: 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 ([facility]-H[facility]) (Primary Dx)Start: 07-22-2025 End: 55-82-7113lbqjwoedbhMKZVRGFAurora [facility] PPGStart: 07-14-2025 End: 06-42-1640cpmqybvvldWJMLWPIOur Lady of Angels Hospital HospitalStart: 07-12-2025 End: 27-18-8076dqgbqovghcGgub J Aichholz NP-C Work Phone: -[facility] ClydeStart: 07-12-2025 End: 11-82-0308Eulxqur encounter procedurePepper [facility] [place] Work Phone: Start: 07-08-2025 End: 59-59-2854Qeoxzniiwg and management of inpatientOur Lady of Angels Hospital HospitalStart: 07-05-2025 End: 66-02-7663mkghhmemoaBKVXB M SOMMERSLake County Memorial Hospital - Westtart: 95-26-2229Hpfzddjta for other preprocedural examinationMOHAMED [facility] Hospitaltart: 07-05-2025 End: 56-54-2975Ceodixx encounter procedurePm Pre-Admission Testing [address] [place] [address] - Pre AdmitComment on above:Preop examination (Primary Dx); Hypertension, unspecified type; HypomagnesemiaStart: 07-05-2025 End: 99-95-6417Gmcecjzuuhyjq examination donePm[address] Streettart: 07-02-2025 End: 3275Drfdsg OnlyStepsayra [facility] Comment on above:H/O prior ablation treatment (Primary Dx); 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 ([facility]-HCC)Start: 20-57-1550Stm-patient / Non-visitTang SMITHFormerly [facility] Work Phone: Start: 90-41-9452Qdb-patient / Non-visitTang Hamilton MDEvergreenhealth [facility] Professional [facility] Work Phone: Start: 05-06-2025 End: 54-73-4028Aldpdo flowsheetPepper Sexton RHINESTONE SETTER Work Phone: noms CWM FMStart: 05-06-2025 End: 99-63-2886Fxmkxi flowsheetPepper Sexton RHINESTONE SETTER Work Phone: noms CWM FMStart: 05-06-2025 End: 76-54-6317Sdbwyjsnx Result EncounterGeneric External Data ProviderNOMS External Department UnsolicitedStart: 90-30-5697Jtf-patient / Non-visitTang Hamilton MDEvergreenhealth [facility] Professional [facility] Work Phone: Start: 05-06-2025 End: 41-51-5981Svsiki outpatient visit 25 minutesLisa Sexton RHINESTONE SETTER Work Phone: noms CWM FMComment on above:Essential hypertension, benign (Primary Dx); Gastro-esophageal reflux disease without esophagitis; Morbid (severe) obesity due to excess calories ([facility]); Cigarette nicotine dependence without complication; Acute gout of left hand, unspecified cause; COPD with acute exacerbation (HCC); Restless legs syndromeStart: 05-06-2025 End: 87-17-2454jradasgoabHOAP AICHHOLZNot AvailableStart: 04-29-2025 End: 14-90-8106Xwylqc outpatient visit 25 minutesMohelen Kumar MD Work Phone: [facility] Health CentermontComment on above: 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 ([facility]) (Primary Dx); Chronic deep vein thrombosis (DVT) of left thigh ([facility])Start: 04-29-2025 End: 62-47-0671dzmmyqezgrFAZHWXPAurora Health Care [facility] PPGStart: 04-20-2025 End: 77-86-9331wvniojuylcEEIAKZQRegency Hospital of Greenville HospitalStart: 04-14-2025 End: 88-54-5955Ugzjfvqaz Result EncounterGeneric External Data ProviderNOMS External Department UnsolicitedStart: 04-14-2025 End: 41-62-5890Wiyfbjgit Result EncounterGeneric External Data ProviderNOMS External Department UnsolicitedStart: 04-13-2025 End: 14-73-8190Xtuswddxp Result EncounterLisa Carlie RHINESTONE SETTER Work Phone: noms External Department UnsolicitedStart: 04-13-2025 End: 60-68-3655Gmqgknpep Result EncounterLisa Carlie RHINESTONE SETTER Work Phone: noms External Department UnsolicitedStart: 04-13-2025 Non-patient / Non-visitTang Hamilton MD-[facility] Work Phone: Start: 04-07-2025 End: 61-30-3356Rzkgqn flowsheetPepper Sexton RHINESTONE SETTER Work Phone: noms CWM FMStart: 04-07-2025 End: 04-96-6499Yizcdw flowsheetPepper Sxeton RHINESTONE SETTER Work Phone: noms CWM FMStart: 04-07-2025 End: 68-67-7783Shloti outpatient visit 25 minutesPepper Sexton NP Work Phone: noms CWM FMComment on above:Essential hypertension, benign (Primary Dx); Morbid (severe) obesity due to excess calories (CMS-HCC); Gastro-esophageal reflux disease without esophagitis; 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); Fibromyalgia; Bronchitis; Acute gout of left hand, unspecified causeStart: 04-07-2025 End: 80-05-8995ungggvzznzOMPF AICHHOLZNot AvailableStart: 04-06-2025 End: 90-92-2714wwsarexojiCaie J Aichholz Work Phone: [facility] Work Phone: Start: 04-06-2025 End: 71-06-2790Hckzupv encounter Bernie Hamilton MD-[facility] Work Phone: Start: 04-01-2025 End: 19-25-1965Onanlt outpatient visit 25 minutesRobert Kumar MD Work Phone: [facility] FremontComment on above: Chronic venous insufficiency (Primary Dx); Chronic deep vein thrombosis (DVT) of popliteal vein of left lower extremity (CMS-HCC); 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 ([facility])Start: 04-01-2025 End: 57-94-8857uwmsvmoywgLPOWHPX F OSMANBethesda North Hospital Ambulatory PPGStart: 03-31-2025 End: 40-33-5654Kwyehnixy Result EncounterPepper Sexton NP Work Phone: noms External Department UnsolicitedStart: 03-31-2025 End: 91-51-4211Xhjmxkyzc Result EncounterPepper Sexton NP Work Phone: noms External Department UnsolicitedStart: 03-17-2025 End: 38-87-1487Tbzaovyww Result EncounterPepper Sexton RHINESTONE SETTER Work Phone: noms External Department UnsolicitedStart: 03-17-2025 End: 62-08-1809Rlvrhdwlj Result EncounterPepper Sexton RHINESTONE SETTER Work Phone: noms External Department UnsolicitedStart: 03-17-2025 End: 55-90-1760Xvjzbk OnlyLisa Sexton RHINESTONE SETTER Work Phone: noms CWM FMComment on above:Electrolyte abnormality (Primary Dx)Start: 59-43-4998Pio-patient / Non-visitTang Hamilton MD-[facility] Work Phone: Start: 03-16-2025 End: 87-62-2165DwlkgiUuyv Aichholz RHINESTONE SETTER Work Phone: noms CWM FMComment on above:Atopic dermatitis, unspecified typeHypothyroidism, unspecified type ; Gastroesophageal reflux disease, unspecified whether esophagitis present; Essential hypertension, benignStart: 03-08-2025 End: 91-55-4675Kjigvu flowsheetPepper Velaz RHINESTONE SETTER Work Phone: noms CWM FMStart: 03-08-2025 End: 72-10-2998Qlivoa flowsNaif Velaz RHINESTONE SETTER Work Phone: noms CWM FMStart: 03-08-2025 End: 35-23-7789Mxighs outpatient visit 25 minutesLisa Sexton RHINESTONE SETTER Work Phone: noms CWM FMComment on above:Cellulitis of left lower extremity (Primary Dx); Essential hypertension, benign ; Left leg swelling; Morbid (severe) obesity due to excess calories (CMS-HCC); Chronic bronchitis, unspecified chronic bronchitis type (HCC); Restless legs syndrome; Atopic dermatitis, unspecified typeStart: 03-08-2025 End: 53-07-8630ewzizwsptrPXUP AICHHOLZNot AvailableStart: 02-17-2025 End: 41-97-4635Jlktvougnqgx care manage srvc 7 day dischargePepper Sexton RHINESTONE SETTER Work Phone: noms CWM FMComment on above:Cellulitis of left lower extremity (Primary Dx); Essential hypertension, benign (CMS/HCC); Morbid (severe) obesity due to excess calories (CMS/HCC); Hypomagnesemia; Cigarette nicotine dependence without complication; MARITZA (acute kidney injury) (CMS/HCC); Left leg swellingStart: 02-17-2025 End: 59-39-0459ysgyivzzdgDQUGCarline Duke AvailableStart: 02-07-2025 End: 29-37-9456Ccfafzlqx Result EncounterGeneric External Data ProviderNOMS External Department UnsolicitedStart: 02-07-2025 End: 38-49-4848Exyhcltcl Result EncounterGeneric External Data ProviderNOMS External Department UnsolicitedStart: 01-06-2025 End: 10-03-1718Uvfhav flowsNaif Sexton RHINESTONE SETTER Work Phone: noms CWM FMStart: 01-06-2025 End: 81-87-6529Veeiwp Bailey Sexton RHINESTONE SETTER Work Phone: noms CWM FMStart: 01-06-2025 End: 06-81-8270Gazysq outpatient visit 25 minutesPepper Sexton RHINESTONE SETTER Work Phone: noms CWM FMComment on above:Essential hypertension, benign (CMS/HCC) (Primary Dx); Chronic kidney disease, stage 3a (HCC) (CMS/HCC); Gastro-esophageal reflux disease without esophagitis; Morbid (severe) obesity due to excess calories (CMS/HCC); Mixed hyperlipidemia (CMS/HCC); Hypomagnesemia; Screening for prostate cancer; Marijuana use; Hypothyroidism, unspecified type (CMS/HCC); FibromyalgiaStart: 01-06-2025 End: 99-16-1946bhiwtiyxfqZSGBCarline [facility] AvailableStart: 12-02-2024 End: 83-27-6702xsvvspskfvLstu J Aichholz Work Phone: [facility] Work Phone: Start: 12-02-2024 End: 16-40-3482Guxvhep encounter procedureLisa Aichholz Work Phone: [facility] [place] Work Phone: Start: 11-26-2024 End: 04-85-9101Chtktqlxx Result EncounterGeneric External Data ProviderNOMS External Department UnsolicitedStart: 11-26-2024 End: 19-38-6247Pqnvplmmh Result EncounterGeneric External Data ProviderNOMS External Department UnsolicitedStart: 11-24-2024 End: 48-34-6221Iowoqdudg Result EncounterGeneric External Data ProviderNOMS External Department UnsolicitedStart: 11-24-2024 End: 67-86-9826Jkhkiwlwl Result EncounterGeneric External Data ProviderNOMS External Department UnsolicitedStart: 49-10-8202Jcv-patient / Non-visitLisa Aichholz Work Phone: [facility] Work Phone: Start: 11-05-2024 End: 15-00-3708Zppuvsosg Result EncounterLisa Aichholz RHINESTONE SETTER Work Phone: noms External Department UnsolicitedStart: 11-05-2024 End: 15-30-0825Ldxzophxt Result EncounterLisa Aichholz RHINESTONE SETTER Work Phone: noms External Department UnsolicitedStart: 11-04-2024 End: 77-40-0804SvmhlzQvdw Aichholz RHINESTONE SETTER Work Phone: noms CWM FMComment on above:Hypomagnesemia; Restless legs syndromeStart: 10-08-2024 End: 40-48-1197PvanzaKmhi Aichholz RHINESTONE SETTER Work Phone: noms CWM FMComment on above:Hypothyroidism, unspecified type (CMS/HCC) (Primary Dx); HypomagnesemiaStart: 10-07-2024 End: 79-12-7911Vvxhuq flowsheetLisa Aichholz RHINESTONE SETTER Work Phone: noms CWM FMStart: 10-07-2024 End: 83-40-0089Lnoevj flowsheetPepper Serratoholz RHINESTONE SETTER Work Phone: noms CWM FMStart: 10-07-2024 End: 94-55-9015Xmsffopdu Result EncounterPepper Serratosrinivasa RHINESTONE SETTER Work Phone: noms External Department UnsolicitedStart: 10-07-2024 End: 64-59-5510Zhwmmj outpatient visit 25 minutesPepper Serratosrinivasa RHINESTONE SETTER Work Phone: noms CWM FMComment on above:Essential hypertension, benign (CMS/HCC) (Primary Dx); Morbid (severe) obesity due to excess calories (CMS/HCC); Gastro-esophageal reflux disease without esophagitis; Body mass index (BMI) 37.0-37.9, adult; GURVINDER (obstructive sleep apnea); COPD mixed type (CMS/HCC); Pulmonary hypertension (CMS/HCC); Hypothyroidism, unspecified type (CMS/HCC); Obesity (BMI 30-39.9); Mixed hyperlipidemia (CMS/HCC); Hypomagnesemia; Marijuana use; Pre-diabetes; Chronic bronchitis, unspecified chronic bronchitis type (CMS/HCC)Start: 10-07-2024 End: 05-18-5651nkulbqbptpXXNU AICHHOLZNot AvailableStart: 00-54-4121Nsx-patient / Non-visitPepper Sexton Work Phone: [facility] Work Phone: Start: 10-06-2024 End: 28-70-1688Uucwkogyf to same day surgery centerPepper Sexton Work Phone: [facility] Work Phone: Start: 10-06-2024 End: 41-17-6991zrhqnmgtaoBkmj J Aichholz Work Phone: [facility] Work Phone: Start: 09-28-2024 End: 41-64-3222Zstrkonax Result EncounterLisa Aichholz RHINESTONE SETTER Work Phone: noms External Department UnsolicitedStart: 09-28-2024 End: 66-51-6099Jspwxllvh Result EncounterLisa Aichholz RHINESTONE SETTER Work Phone: noms External Department UnsolicitedStart: 09-28-2024 End: 17-22-8706IcyudpQwux Aichholz RHINESTONE SETTER Work Phone: noms CWM FMComment on above:Hypomagnesemia (Primary Dx)Start: 09-14-2024 End: 13-14-9856JpbrbzKxnw Aichholz RHINESTONE SETTER Work Phone: noms CWM FMComment on above:HypomagnesemiaStart: 09-14-2024 End: 22-83-2921DnjwvuCksn Aichholz RHINESTONE SETTER Work Phone: noms CWM FMComment on above:FibromyalgiaStart: 09-04-2024 End: 04-12-1984Lyauxg OnlyLisa Aichholz RHINESTONE SETTER Work Phone: noms CWM FMComment on above:Hypomagnesemia (Primary Dx)Start: 09-04-2024 End: 08-85-3989WvwwhsYtby Aichholz RHINESTONE SETTER Work Phone: noms CWM FMComment on above:HypomagnesemiaStart: 71-77-5656Izd-patient / Non-visitLisa Aichholz Work Phone: [facility] G[facility]ology Work Phone: Start: 07-09-2024 End: 26-00-1932Ffziivohl to same day surgery centerLisa Aichholz Work Phone: [facility] Work Phone: Start: 07-09-2024 End: 06-28-9590riogeerpnxMmci J Aichholz Work Phone: [facility] Work Phone: Start: 07-06-2024 End: 43-74-4824Saggjr tylorPepper Herrerapricillasrinivasa RHINESTONE SETTER Work Phone: noms CWM FMStart: 07-06-2024 End: 44-74-0553Anuxjj tylorPepper Herrerapricillasrinivasa RHINESTONE SETTER Work Phone: noms CWM FMStart: 07-06-2024 End: 22-34-8022Uxqean outpatient visit 25 minutesLi Carlie RHINESTONE SETTER Work Phone: noms CWM FMComment on above:Essential hypertension, benign (CMS/HCC) (Primary Dx); Hypomagnesemia; Gastroesophageal reflux disease, unspecified whether esophagitis present; Obesity (BMI 30-39.9); Hypothyroidism, unspecified type (CMS/HCC); Needs flu shotStart: 07-06-2024 End: 93-69-3324dqbxfpukdmMGOE ABRAHAMot AvailableStart: 06-30-2024 End: 44-05-5344Wrvzry flowsAngela Bo DO Work Phone: noms CI ORTHOPAEDICSStart: 06-30-2024 End: 85-05-0211Paewfb flowsAngela Bo DO Work Phone: noms CI ORTHOPAEDICSStart: 06-30-2024 End: 63-20-2226Lvcslq follow up visit related to original pxRupert Bo DO Work Phone: noms CI ORTHOPAEDICSComment on above:Cubital tunnel syndrome on right (Primary Dx)Start: 06-30-2024 End: 75-98-1936exknkgpkzbBMJUZ A HUDTAWNYANot AvailableStart: 06-29-2024 End: 64-06-7766QitzkhPlpt Aichholz RHINESTONE SETTER Work Phone: noms CWM FMComment on above:Restless legs syndrome Start: 06-24-2024 End: 93-43-6142mgiildeajwGlrvudoifWright-Patterson Medical Center Work Phone: Start: 06-24-2024 End: 30-55-9437Jqovcwi encounter procedureFirsthealth Physician GroupHE[facility] Work Phone: Start: 06-23-2024 End: 03-13-9654Txrwupufo Result EncounterGeneric External Data ProviderNOMS External Department UnsolicitedStart: 06-23-2024 End: 79-58-3815Deoaftdif Result EncounterGeneric External Data ProviderNOMS External Department UnsolicitedStart: 06-23-2024 End: 93-69-4431hkqssvknfyHymtyopqrWright-Patterson Medical Center Work Phone: Start: 06-23-2024 End: 16-65-6890Ddvusyl encounter procedureFirsthealth [facility] [place] Work Phone: Start: 06-18-2024 End: 78-29-4871ObfgdsXzujtl Benedict MD Work Phone: noms [address]YN[place] STATE ROUTEComment on above:Degenerative disc disease, cervical (Primary Dx)Start: 06-09-2024 End: 93-57-4249RcwqwpFtib Carlie RHINESTONE SETTER Work Phone: noms CWM FMComment on above:Hypomagnesemiaquestions Start: 06-03-2024 End: 96-40-1831Vlbrjd flowsheetMaria B Apling RHINESTONE SETTER Work Phone: noms CI ORTHOPAEDICSStart: 06-03-2024 End: 40-43-6245Mxhunk flowsheetMaria B Apling RHINESTONE SETTER Work Phone: noms CI ORTHOPAEDICSStart: 06-03-2024 End: 95-64-2508mztsydmonbYAIFW B APLINGNot AvailableStart: 06-03-2024 End: 98-77-0731Czjfrz follow up visit related to original pxMaria B Apling RHINESTONE SETTER Work Phone: noms CI ORTHOPAEDICSComment on above:Cubital tunnel syndrome on right (Primary Dx)Start: 05-26-2024 End: 77-62-0351BxvqpoRtebl T Olsen RHINESTONE SETTER Work Phone: noms FB ORTHOPAEDICSComment on above:Post-operative pain (Primary Dx)Start: 05-04-2024 End: 20-35-5589Roezopczowoc stateTiburcio Noel RHINESTONE SETTER Work Phone: noms HealthcareStart: 04-27-2024 End: 19-71-0943Jnnuzjl encounter procedureOhiohealth [facility] Pre-Admission Testing [address] [place] [address] - Pre AdmitComment on above:Preop examination (Primary Dx); Hypertension, unspecified typeStart: 04-27-2024 End: 80-54-4387Dayisvbyvzdhx examination done[address] SystemStart: 03-19-2024 End: 55-92-5570kyguxpjvfdVmamqpmicWright-Patterson Medical Center Work Phone: Start: 03-19-2024 End: 72-75-3765Jdwbmug encounter procedureFirsthealth Physician [facility] Ne[facility] Work Phone: Start: 07-19-2022 End: 43-90-8587viaiubsjdlOCN PEPPER AICHHOLZFacility:E2Fkbrr: 04-04-2022 End: 74-48-4206lhwawdvgppKPC PEPPER AICHHOLZFacility:Z6Ulfpy: 02-27-2022 End: 84-60-8498pypieakxqjOXP PEPPER AICHHOLZFacility:Y9Vjdvy: 01-16-2022 End: 46-43-0418axyyihwridXFV PEPPER AICHHOLZFacility:B3Gnzio: 12-25-2021 End: 70-24-3663gpvawbwambGYE PEPPER AICHHOLZFacility:H1 Procedures DateProcedureProcedure DetailPerforming ClinicianStart: 59-36-3320YJZ MAGNESIUM Generic External Data ProviderStart: 13-27-2884QIR MAGNESIUMVioleta YU Work Phone: Start: 32-36-5877TTQ URIC ACIDLisa Carlie RHINESTONE SETTER Work Phone: Start: 72-68-9132JOT BASIC METABOLIC PANELLisa Aichholz RHINESTONE SETTER Work Phone: Start: 55-51-3127JET CBC WITH AUTO DIFFLisa Aichholz RHINESTONE SETTER Work Phone: Start: 96-87-9475ERAPY CULTURE 2Generic External Data ProviderStart: 33-18-1985RSUEB CULTURE 1Generic External Data ProviderStart: 26-44-4134ZCR CBC WITH AUTO DIFFGeneric External Data ProviderStart: 11-24-2024 ALL MAGNESIUMGeneric External Data ProviderStart: 10-08-0375KKJ MAGNESIUMLisa Aichholz RHINESTONE SETTER Work Phone: Start: 30-14-5109VMQ MAGNESIUMLisa Aichholz RHINESTONE SETTER Work Phone: Start: 87-39-2686QVM THYROID STIM HORMONELisa Aichholz RHINESTONE SETTER Work Phone: Start: 51-46-7128Frvuvalygr glycosylated s9dSesd Aichholz RHINESTONE SETTER Work Phone: Start: 27-85-5106StywyryikhprwqkolodupxbwejVgay Aichholz Work Phone: Start: 72-73-0417HCT BASIC METABOLIC PANELLisa Aichholz RHINESTONE SETTER Work Phone: Start: 31-16-3712GLY MAGNESIUMLisa Aichholz RHINESTONE SETTER Work Phone: Start: 25-09-7569JfdejxupalmbcygelretrtkjspErnq Aichholz Work Phone: Start: 91-47-8075FIL MAGNESIUMGeneric External Data ProviderStart: 82-00-4337BNQ RENAL FUNCTION PANELGeneric External Data Provider Start: 61-18-4744FZT URIC ACIDGeneric External Data ProviderStart: 13-90-4568ENV screeningCNP PEPPER AICHHOLZComment on above:Performed By: #### CMP, TSH, LIPID #### [facility] [address] [place] [address] Dr. Lavonne TinocoH/O: surgeryH/O prior ablation treatmentSdavid [place] Plan of Treatment DateCare ActivityDetailAuthorStart: 35-40-6687Lnhtb BMI ScreeningAdult BMI ScreeningProL.V. [facility] Health SystemStart: 41-26-9058Fihwyez ScreeningTobacco ScreeningTogus VA Medical Centerca Health SystemStart: 51-37-0585Yrmgj BMI ScreeningAdult BMI ScreeningTogus VA Medical Centerca Health SystemStart: 12-17-4618Pgfghuv ScreeningTobacco ScreeningSCCI Hospital [facility] Health SystemStart: 57-47-5157Bjrde BMI ScreeningAdult BMI ScreeningProPeoples Hospital SystemStart: 76-51-6956Qboqj BMI ScreeningAdult BMI ScreeningProOhiohealthca [facility] SystemStart: 10-28-2025 End: 97-99-7579Akweywx encounter zxgnauywt67/05/2026 10:00 AM EST Office Visit [facility] [address] [place] [address] Vanessa Bedolla, CSM CONSULTANT-ESTHETICIAN SPA [address] [place] [address] [facility] FremontStart: 61-62-3605Rfdutsgod for malignant neoplasm of colonNOMS HealthcareStart: 08-09-2025 End: 72-79-8943Vhadyii encounter cqmzswoaw05/17/2025 8:40 AM EST Office Visit [facility] [address] [place] [address] Pepper Sexton NP [address] [place] [address] [facility] FMStart: 07-22-2025 End: 81-13-7842Jzeaxpr encounter rljldjple87/30/2025 10:15 AM EDT Office Visit [facility] [address] [place] [address] Vanessa Bedolla, CSM CONSULTANT-ESTHETICIAN [place] [address] 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 ([facility]-HCC) 07/08/2025 2:00 PM EDUniversity [facility] SystemStart: 07-08-2025 End: 63-16-7789Zcsmliqzz to same day surgery zapeco0507/08/2025 2:00 PM EDT - 07/08/2025 3:00 PM EDT Surgery [facility] Surgery [address] [place] [address] Robert Kumar MD [address], [facility] [address] [place] [address] ABLATION VENOUS VIBJUNOSFWIPQP-SIK-MVERPULXQUbvZldvcj [facility] Surgery Comment on above:ABLATION VENOUS QGEGSOCYMFSEAM-KMN-OMMQELPAMWxfsl: 07-08-2025 End: 79-76-1652Sxaggrhzpn qwwflmrspovg49/16/2025 2:00 PM EDT Anesthesia Event [facility] Surgery [address] [place], [place] [address] German Yip, DO [address] [facility], [place] [id number] [facility] SurgeryStart: 07-08-2025 End: 02-67-4225ZPNNMVCRPMBOM LOWER EXTREMITYSCLEROTHERAPY LOWER EXTREMITY 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 ([facility]-H[facility]) 07/08/2025 2:00 PM EDTPClermont County Hospital SystemStart: 83-25-6491Nqskuoqcaj hospital visit by physicianProThe [facility] - SurgeryComment on above:Preop examination (Primary Dx); HypomagnesemiaStart: 07-05-2025 End: 50-80-9606Chgutgg encounter tvhqjatsa34/13/2025 9:45 AM EDT Procedure visit [facility] [address] [place] [address] [phone] Hospital - Pre AdmitStart: 07-02-2025 End: 24-07-4139OH.doppler Lower extremity vein - leftVas venous duplex lwr single left Vascular Ultrasound Routine H/O prior ablation treatment 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 ([facility]) Expected: 07/02/2025, Expires: 07/02/2026[facility] Work Phone: Comment on above:Expected: 07/02/2025, Expires: 07/02/2026Start: 24-97-0148Sofqgnp ScreeningTobacco ScreeningOhio Valley Hospital SystemStart: 52-32-0902Nubxnpaxo vaccinationInfluenza VaccineOhio Valley Hospital SystemStart: 05-06-2025 End: 93-49-9597Iugvmak encounter kuudulvdg93/14/2025 8:20 AM EDT Office Visit [facility] [address] [place] [address] Pepper Sexton NP [address] [place] [address] Essential hypertension, benign (Primary Dx); Gastro- esophageal reflux disease without esophagitis;Morbid (severe) obesity due to excess calories ([facility]); Cigarette nicotine dependence without complication; Acute gout of left hand, unspecified causeNOMS CWM FMComment on above:Essential hypertension, benign (Primary Dx); Gastro-esophageal reflux disease without esophagitis; Morbid (severe) obesity due to excess calories ([facility]); Cigarette nicotine dependence without complication; Acute gout of left hand, unspecified causeStart: 05-05-2025 End: 23-99-1393Bhunnio encounter oxnnpaddm13/13/2025 8:20 AM EDT Office Visit [facility] [address] [place] [address] Pepper Sexton, REMBERTO [address] [place] [address] [facility] FMStart: 04-29-2025 End: 07-99-7100Aldudhb encounter khzcrpxeb43/07/2025 8:50 AM EDT Office Visit [facility] [place] [address] Robert Kumar MD [address], [address] [address] [facility] Hospitaltart: 16-98-1647Mnqff BMI ScreeningAdult BMI ScreeningOhio Valley Hospital SystemStart: 38-96-7180Ndstoif ScreeningTobacco ScreeningAtrium Healthtart: 04-20-2025 End: 95-97-4422Ykyzewl encounter qjmpuwvkv66/29/2025 9:[address] [facility] [address] [place] [address] Robert Kumar MD [address], [address] [place] [address] [facility]: 04-07-2025 End: 07-81-6197Wgwcz [Mass/volume] in Serum or PlasmaUric acid Lab Routine Acute gout of left hand, unspecified cause Expected: 04/07/2025 (Approximate), Expires: 04/07/2026[facility] Work Phone: Comment on above:Expected: 04/07/2025 (Approximate), Expires: 04/07/2026Start: 04-07-2025 End: 94-21-0816Uacpcez encounter procedureNOMS 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); Cellulitis of left lower extremityStart: 04-01-2025 End: 45-58-2800JS.doppler Lower extremity vein - leftVas venous duplex insufficiency lwr lt Vascular Ultrasound Routine Chronic venous insufficiency Expected: 04/01/2025, Expires: 04/01/2026[facility] Work Phone: [phone] on above:Expected: 04/01/2025, Expires: 04/01/2026Start: 03-17-2025 End: 47-23-7138Vwdpe metabolic 1998 panel - Serum or PlasmaBasic metabolic panel Lab Routine Electrolyte abnormality Expected: 03/17/2025 (Approximate), s: 03/17/2026[facility] Work Phone: Comment on above:Expected: 03/17/2025 (Approximate), Expires: 03/17/2026Start: 03-08-2025 End: 64-61-5727Pdbdlbp encounter djejjxnav02/16/2025 8:20 AM EDT Office Visit [facility] [address] [place] [address] Pepper Sexton NP [address] [place] [address] Essential hypertension, benign (Primary Dx); Cellulitis of left lower extremity; Left leg swelling; Morbid (severe) obesity due to excess calories (CMS-HCC)[facility] C[facility] FMComment on above:Essential hypertension, benign (Primary Dx); Cellulitis of left lower extremity; Left leg swelling; Morbid (severe) obesity due to excess calories (CMS-HCC)Start: 01-06-2025 End: 34-81-2873GMI W Auto Differential panel - BloodCBC and differential Lab Routine Gastro-esophageal reflux disease without esophagitis Expected: 12/22 (Approximate), Expires: 01/06/2026[facility] HealthcareComment on above: Expected: 01/06/2025 (Approximate), Expires: 01/06/2026Start: 01-06-2025 End: 61-25-9025Syfwhyzannlil metabolic 2000 panel - Serum or PlasmaComprehensive metabolic panel Lab Routine Chronic kidney disease, stage 3a (HCC) (CMS/HCC) Essential hypertension, benign (CMS/HCC) Gastro-esophageal reflux disease without esophagitis Mixed hyperlipidemia (CMS/HCC) Expected: 01/06/2025 (Approximate), Expires: 01/06/2026[facility] HealthcareComment on above:Expected: 01/06/2025 (Approximate), Expires: 01/06/2026Start: 01-06-2025 End: 18-37-8000Gmizi 1996 panel - Serum or PlasmaLipid panel Lab Routine Mixed hyperlipidemia (CMS/HCC) Expected: 01/06/2025 (Approximate), Expires:01/06/2026 [facility] Work Phone: Comment on above:Expected: 01/06/2025 (Approximate), Expires: 01/06/2026Start: 01-06-2025 End: 78-88-4260Dzgsrswvkhgy/Creatinine panel in random UrineMicroalbumin / creatinine, urine ratio Lab Routine Essential hypertension, benign (CMS/HCC) Expected: 01/06/2025 (Approximate), Expires: 01/06/2026[facility] HealthcareComment on above:Expected: 01/06/2025 (Approximate), Expires: 01/06/2026Start: 01-06-2025 End: 55-07-4237Mrpqfynb specific Ag [Mass/volume] in Serum or PlasmaPSA Lab Routine Screening for prostate cancer Expected: 01/06/2025 (Approximate), Expires: 01/06/2026[facility] HealthcareComment on above:Expected: 01/06/2025 (Approximate), Expires: 01/06/2026Start: 01-06-2025 End: 16-19-4002Ltpgqwmfuxt [Units/volume] in Serum or PlasmaTSH Lab Routine Hypothyroidism, unspecified type (CMS/HCC) Expected: 01/06/2025 (Approximate), Expires: 01/06/2026[facility] HealthcareComment on above:Expected: 01/06/2025 (Approximate), Expires: 01/06/2026Start: 01-06-2025 End: 67-38-3707Wwyhagycx (T4) free [Mass/volume] in Serum or PlasmaT4, free Lab Routine Hypothyroidism, unspecified type (CMS/HCC) Expected: 01/06/2025 (Approximate),Expires: 01/06/2026[facility] HealthcareComment on above:Expected: 01/06/2025 (Approximate), Expires: 01/06/2026Start: 01-06-2025 End: 93-74-0859Bxnmaypwmw complete panel - UrineUrinalysis with reflex microscopic (clean catch) Lab Routine Essential hypertension, benign (CMS/HCC) Expected: 01/06/2025 (Approximate), Expires: 01/06/2026[facility] HealthcareComment on above:Expected: 01/06/2025 (Approximate), Expires: 01/06/2026Start: 01-06-2025 End: 91-76-3636Paaylvy encounter procedureNOMS CWM FMComment on above:Essential hypertension, benign (CMS/HCC) (Primary Dx); Chronic kidney disease, stage 3a (HCC) (CMS/HCC); Gastro-esophageal reflux disease without esophagitis; Morbid (severe) obesity due to excess calories (CMS/HCC); Mixed hyperlipidemia (CMS/HCC); Hypomagnesemia; Screening for prostate cancer; Marijuana use; Hypothyroidism, unspecified type (CMS/HCC)Start: 12-06-2024 End: 76-97-5859Akhablylsdi [Units/volume] in Serum or PlasmaTSH Lab Routine Hypothyroidism, unspecified type (CMS/HCC) Expected: 12/06/2024 (Approximate), Expires: 10/08/2025[facility] Work Phone: Comment on above:Expected: 12/06/2024 (Approximate), Expires: 10/08/2025Start: 12-06-2024 End: 33-71-4427Hjebbmqyo (T4) free [Mass/volume] in Serum or PlasmaT4, free Lab Routine Hypothyroidism, unspecified type (CMS/HCC) Expected: 12/06/2024 (Approximate),Expires: 10/08/2025[facility] HealthcareComment on above:Expected: 12/06/2024 (Approximate), Expires: 10/08/2025Start: 10-22-2024 End: 31-36-4116Tgbxerwde [Mass/volume] in Serum or PlasmaMagnesium Lab Routine Hypomagnesemia Expected: 10/22/2024 (Approximate), Expires: 10/08/2025[facility] HealthcareComment on above:Expected: 10/22/2024 (Approximate), Expires: 10/08/2025Start: 10-07-2024 End: 10-83-5970Kdspijxrw [Mass/volume] in Serum or PlasmaMagnesium Lab Routine Hypomagnesemia Expected: 10/07/2024 (Approximate), Expires: 10/07/2025[facility] HealthcareComment on above:Expected: 10/07/2024 (Approximate), Expires: 10/07/2025Start: 10-07-2024 End: 71-69-9744Jjvzkwvonbf [Units/volume] in Serum or PlasmaTSH Lab Routine Hypothyroidism, unspecified type (CMS/HCC) Expected: 10/07/2024 (Approximate), Expires: 10/07/2025[facility] Work Phone: Comment on above:Expected: 10/07/2024 (Approximate), Expires: 10/07/2025Start: 10-07-2024 End: 00-10-7215Opsjhmhma (T4) free [Mass/volume] in Serum or PlasmaT4, free Lab Routine Hypothyroidism, unspecified type (CMS/HCC) Expected: 10/07/2024 (Approximate),Expires: 10/07/2025[facility] HealthcareComment on above:Expected: 10/07/2024 (Approximate), Expires: 10/07/2025Start: 10-07-2024 End: 00-46-8723Egxppoa encounter procedureNOMS CWM FMComment on above:GURVINDER (obstructive sleep apnea) (Primary Dx); Morbid (severe) obesity due to excess calories (CMS/HCC); Gastro-esophageal reflux disease without esophagitis; Body mass index (BMI) 37.0-37.9, adult; COPD mixed type (CMS/HCC); Essential hypertension, benign (CMS/HCC); Pulmonary hypertension (CMS/HCC); Hypothyroidism, unspecified type (CMS/HCC); Obesity (BMI 30-39.9); Mixed hyperlipidemia (CMS/HCC); Hypomagnesemia; Marijuana use; Pre-diabetesStart: 91-68-8659HtpobzqyuSelect Medical Specialty Hospital - Columbustart: 09-04-2024 End: 72-13-9012Aejkz metabolic 1997 panel - Serum or PlasmaBasic metabolic panel Lab Routine Hypomagnesemia Expected: 09/04/2024 (Approximate), Expires: 2024[facility] HealthcareComment on above:Expected: 09/04/2024 (Approximate), Expires: 09/04/2025Start: 09-04-2024 End: 28-07-3028Ojtdpgpaw [Mass/volume] in Serum or PlasmaMagnesium Lab Routine Hypomagnesemia Expected: 09/04/2024 (Approximate), Expires: 09/04/2025[facility] Work Phone: Comment on above:Expected: 09/04/2024 (Approximate), Expires: 09/04/2025Start: 42-69-2766MreqvuenbSelect Medical Specialty Hospital - Columbustart: 07-06-2024 End: 35-87-4699Xsryatt encounter procedureNOMS CWM FMComment on above:Arrived Start: 06-30-2024 End: 64-29-3820Sxtroqy encounter procedureNOMS CI ORTHOPAEDICSComment on above: ArrivedStart: 06-09-2024 End: 43-09-4866Mntim metabolic 1997 panel - Serum or PlasmaBasic metabolic panel Lab Routine Hypomagnesemia Expected: 06/09/2024 (Approximate), Expires: 2024[facility] Work Phone: Comment on above:Expected: 06/09/2024 (Approximate), Expires: 06/09/2025Start: 06-09-2024 End: 62-23-3110Ichzadaym [Mass/volume] in Serum or PlasmaMagnesium Lab Routine Hypomagnesemia Expected: 06/09/2024 (Approximate), Expires: 06/09/2025[facility] HealthcareComment on above:Expected: 06/09/2024 (Approximate), Expires: 06/09/2025Start: 06-03-2024 End: 76-37-1333Tduxvyh encounter grhorkxdg34/11/2024 8:45 AM EDT Office Visit [facility] [address] [place] [address] Blank Mcfarlane NP [address] [place] [address] [facility] CI ORTHOPAEDICSStart: 05-27-2024 End: 31-41-3840Qwotksw encounter vnnllezez31/04/2024 10:40 AM EDT Office Visit [facility] [address] [place] [address] Karuna Carranza PA [address] [place] [address] [facility] ROUTEStart: 05-27-2024 End: 07-38-6180Faqzitzpg to same day surgery rblwes6305/27/2024 7:30 AM EDT - 05/27/2024 8:30 AM EDT Surgery [facility] [address] [place] [address] Rupert Bo DO [address] [facility] [address] [place] [address] DECOMPRESSION NERVE ULNAR [85503 (CPT )][facility] - SurgeryComment on above:DECOMPRESSION NERVE ULNAR [75307 (CPT )]Start: 05-27-2024 End: 60-12-5777Jphxhjnbovh &/transposition ulnar nerve elbowDECOMPRESSION NERVE ULNAR right ulnar neuropathy 05/27/2024 7:30 AM EDTFREMONT SURGERYStart: 05-27-2024 End: 55-74-0638Cwdhduj encounter nfmoxwzqh73/04/2024 7:30 AM EDT Procedure Visit [facility] Rupert Bo, DO [address] [place] [address] [facility] EXT DEPStart: 05-27-2024 Subsequent hospital visit by kaicibwuv93/04/2024 7:30 AM EDT Hospital Encounter [facility] [address] [place] [address] Rupert Bo, DO [address] [place] [address] [facility] SurgeryStart: 42-02-0744Nufsxgkpe vaccinationInfluenza VaccineProPeoples Hospital SystemStart: 06-66-6951Eguyvdqacrxbdh of varicella zoster vaccineZoster (Shingles) Vaccine (1 of 2)[facility] SystemStart: 27-30-5491MGjC,Tdap and Td Vaccines (1 - Tdap)DTaP,Tdap and Td Vaccines (1 - Tdap)[facility] SystemStart: 05-81-9081Hsblu BMI Follow Up PlanAdult BMI Follow Up PlanOhio Valley Hospital SystemStart: 97-63-4709Qzoyzcsjkg ScreeningDepression ScreeningProPeoples Hospital SystemStart: 69-35-5574Ywktmgeqj for malignant neoplasm of colonNOMS HealthcareBLOOD CULTURE 1BLOOD CULTURE 1 Lab Routine 02/07/2025 12:02 PM EDTNOMS HealthcareBLOOD CULTURE 2BLOOD CULTURE 2 Lab Routine 02/07/2025 12:45 PM EDTNOMS HealthcarePatient [facility] Work Phone: Renal function 1999 panel - Serum or [facility] HospitalRenal function 1999 panel - Serum or [facility] HospitalRenal function 1999 panel - Serum or [facility] HospitalRenal function 1999 panel - Serum or PlasmaFirelands Regional Medical CenterFirelands [facility] Payers DatePayer CategoryPayerPolicy [id number] Cross Blue ShieldBCBS Member Subscriber Plan / Payer (Effective 2019-Present) Name: Abram Guillaume Relation to Subscriber: Self Name: Abram Guillaume Payer ID: Noton file Type: Not on file Address: [address] [place], [place] [id number] Medical Center Care - PPOANTHEM Member Subscriber Plan / Payer (Effective 2019-Present) Name: Abram Guillaume Relation to Subscriber: Self Name: Abram Guillaume Payer ID: [id number] (NAIC) Type: Not on file Address: [address] [place] [id number] 29-31-7938Ciguaag9.2.840.726780.1.13.693.2.7.3.798116.03991-60-1059Fkuoncv [id number] 2.0.1.033830.3.57[id number] 2.0.1.528208.3.57[id number] 2.0.1.088421.3.57[id number] 2.840.1.289329.3.57[id number] 2..840.1.749279.3.57[id number] 2.16.840.1.080935.3.57[id number] 2.840.1.829056.3.57[id number] 2.840.1.518336.3.57[id number] 2.840.1.525908.3.579.[id number] 2.840.1.669324.3.57[id number] 2.840.1.554054.3.57[id number] 2.840.1.618375.3.57[id number] 2.840.1.386513.3.57[id number] 2.840.1.287241.3.579.[id number] 2.840.1.274446.3.579.[id number] 2.840.1.138671.3.579.[id number] 2.840.1.118915.3.579.2.5[id number] 2.840.1.501320.3.579.2.7[id number] 2.0.1.780688.3.579.2.[id number] 2..0.1.687346.3.579.2.[id number] 2..840.1.229942.3.579.2.[id number] 2.0.1.008522.3.57[id number] 2.0.1.307923.3.579.2.190953-69-5878PhhjyfbSEM672X1234763-25-5037Girhorh [id number] /[id number] UnknownFrontpath [id number] [id number] 2.0.1.4[id number] 2.0.1.243298.3.579.2.531 Social History DateTypeDetailFacilityStart: 73-88-9101Qrfufga smoking status NHISCurrent some day smokerSelect Medical Specialty Hospital - Columbustart: 37-10-6353Zwm Assigned At BirthCleveland Clinic Medina Hospitaltart: 04-30-2024 End: 85-56-6086Likprvs smoking status NHISEx-smoker (finding)[facility] HospitalHistory of tobacco useCurrent smokerNOMS HealthcareHistory of tobacco useCigar SmokerNOMS HealthcareStart: 04-30-2024 End: 73-98-7708Hflhmqn use and exposureSmokeless tobacco non-userNOMS Healthcare Start: 06-03-2024 End: 89-99-7580Qewahdnwx beverage intakeCurrent drinker of alcohol (finding)[facility] HealthcareStart: 03-04-2019 End: 99-47-4015Hmnwenm of Social functionNOMS HealthcareStart: 03-04-2019 End: 17-38-2214Fikujo connection and isolation panelNOMS HealthcareDo you belong to any clubs or organizations such as sikhism groups, unions, fraternal or athletic groups, or school groups?YesNOMS HealthcareAre you now , , , , never or living with a partner?MarriedNOMS HealthcareHow often to you have a drink containing alcohol?4 or more times a weekNOMS HealthcareHow many standard drinks containing alcohol do you have on a typical day?5 or 6NOMS HealthcareHow often do you have 6 or more drinks on 1 occasion?WeeklyNOMS HealthcareHow hard is it for you to pay for the very basics like food, housing, medical care, and heatingSomewhat hardNOMS HealthcareDo you feel stress - tense, restless, nervous, or anxious, or unable to sleep at night because yourmind is troubled all the time - these days [OSQ]To some extentNOMS Healthcare(I/We) worried whether (my/our) food would run out before (I/we) got money to buy more.Never trueNOMS HealthcareIn the past 12 months, has lack of transportation kept you from medical appointments or from getting medications?No NOMS HealthcareIn the past 12 months, was there a time when you were not able to pay the mortgage or rent on time?NoNOMS HealthcareStart: 50-23-8283Hdnrzor Commentcaffeine: 1-2 cups per dayNOMS HealthcareStart: 67-73-7185Lyb assigned at birthNot on fileNOCO HealthcareStart: 05-27-2024 End: 97-77-4215Lqyzlbg smoking status NHISNever smoked tobacco (finding) [facility] Columbustart: 04-28-2015 End: 98-18-3677CscMvng (finding)[facility] HospitalHistory of tobacco useCigarette SmokerProMedica Health SystemStart: 50-61-5467Trgplck Commentsocial/recreationalProMedica Health System Goals DatePatient GoalDesired Activity/StatePersonal health goal Clinical Notes 04-27-2024 to 07-22-2025 Note Date & RjxoTxsgEodnumbq59-99-1308 Evaluation + Plan note* Assessment & Plan Note - Robert Kumar MD - 07/22/2025 10:33 AM EDTAssociated Problem(s): 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 Follow up in 3 months. [facility]10-30-2025 Miscellaneous Notes* Assessment & Plan Note - Robert Kumar MD - 07/22/2025 10:33 AM EDTAssociated Problem(s): 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 ([facility]) Continue compression therapy and calamine cream. Follow up in 3 months. documented in this encounterJ.W. Ruby [facility] Hospital10-30-2025 History of Present illness Narrative* Robert Kumar MD - 07/22/2025 10:15 AM EDT Images from the original note were not included. To: PEPPER SEXTON, [facility] CONSULTANT-ESTHETICIAN SPA HPI: Abram Guillaume is a 59 y.o. male with venous [...] Surgical History: Procedure Laterality Date ABLATION VENOUS MUZNSHBOSYTXZP-PCP-UZZSYAJCR Left 07/08/2025 Performed by Robert Kumar MD at [facility] DECOMPRESSION NERVE ULNAR Right 05/27/2024 Performed by Rupert Bo DO at [facility] ESOPHAGOGASTRODUODENOSCOPY x2 HERNIA REPAIR Bilateral inguinal LEG SURGERY Left 2011 broken tib/fib SCLEROTHERAPY LOWER EXTREMITY Left 07/08/2025 Performed by Robert Kumar MD at [facility] TONSILLECTOMY Social and Family History: Social History [...] Strain: Medium Risk (11/25/2023) Received from [facility] Overall Financial Resource Strain (CARDIA) Difficulty of Paying Living Expenses: Somewhat hard Food Insecurity: No Food Insecurity (11/25/2023) Received from [facility] Hunger Vital Sign Within the past 12 months, you worried that your food would run out before you got the money to buymore.: Never true Within the past 12 months, the food you bought just didn't last and you didn't have money to get more.: Never true Transportation Needs: No Transportation Needs (11/25/2023) Received from [facility] PRAPARE - Transportation Lack of Transportation (Medical): No Lack of Transportation (Non-Medical): No Physical Activity: Sufficiently Active (11/25/2023) Received from [facility] Exercise Vital Sign On average, how many days per week do you engage in moderate to strenuous exercise (like a brisk walk)?: 5 days On average, how many minutes do you engage in exercise at this level?: 150+ min Stress: Stress Concern Present (11/25/2023) Received from [facility] [place] [facility] Occupational Health - Occupational Stress Questionnaire Feeling of Stress : To some extent Social Connections: Moderately Integrated (11/25/2023) Received from [facility] Social Connection and Isolation Panel In a typical week, how many times do you talk on the phone with family, friends, or neighbors?: Once a week How often do you get together with friends or relatives?: Three times a week How often do you attend sikhism or advent services?: Never Do you belong to any clubs or organizations such as sikhism groups, unions, fraternal or athletic groups, or school groups?: Yes How often do you attend meetings of the clubs or organizations you belong to?: Never Are you , , , , never , or living with a partner?: Interpersonal Safety: Unknown (11/14/2023) Received from [facility] Safety & Environment Fear of Current or Ex-Partner: Not on file Emotionally Abused: Not on file Physically Abused: Not on file Sexually Abused: Not on file Physically or Sexually Abused: Not on file Housing Instability: Low Risk (11/25/2023) Received from [facility] Housing Stability Vital Sign Unable to [...] Wt 127.9 kg (282 lb) BMI 41.64 kg/m Body mass index is 41.64 kg/m . Physical Exam: Physical Exam Constitutional: [...] 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 ([facility]) - Primary Current Assessment & Plan Continue compression therapy and calamine cream. Follow up in 3 months. Abram was seen today for varicose veins of lower extremity with varicose ulcer and ec. Diagnoses and all orders for this visit: 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 ([facility]) Robert Kumar MD, ZAN, RPVI, FSVS, FACS [...] you for your understanding. documented in this encounterSouthwestern Vermont Medical CenterNovede Entertainment [id number] Instructions* Patient Instructions* Ora Delvalle RN - 07/05/2025 9:45 AM EDT Preoperative Education Checklist- General Surgery date: 07/08/25 Surgery time: 2:00 p.m. Arrival time: 12:00 p.m. 1. Bring a photo ID and your insurance card with you the day of surgery. You will check in at the main lobby of the [facility]- registration desk is straight ahead as soon as you walk in. Tell them you are here for surgery. 2. If you have a Living Will/Durable Power of Poultice Machine Operator for Health Care that is not [...] after you have bathed. 5. NO nail rwandan/acrylic on at least one finger. If you are having a hand, wrist or foot surgery then all nail rwandan and artificial/acrylic nails must be removed from [...] hoursprior to arrival for your surgery. 16. Notify your surgeon if you develop any illness before your surgery. 17. If you are staying overnight, please DO NOT BRING your home medications with you. 18. If you have any questions prior to surgery, please call the Preadmission Testing office at [phone], Mon.-Fri. 7 a.m.-3 p.m. Leave a voicemail if needed. Pre-Surgery Instructions: Medication Instructions apixaban (ELIQUIS) 5 mg tablet Per Surgeon's instructions acetaminophen (TYLENOL ARTHRITIS) 650 mg 8 hr tablet Stop taking 0 days prior to procedure albuterol (PROVENTIL HFA;VENTOLIN HFA) 90 mcg/actuation inhaler Take morning of procedure, as needed budesonide-formoteroL (SYMBICORT) 80-4.5 mcg/actuation inhaler Continue as prescribed, take morningof procedure calamine-zinc oxide 8-8 % lotion Stop taking 0 days prior to procedure doxepin (SINEquan) 10 mg capsule Stop taking 0 days prior to procedure gabapentin (NEURONTIN) 300 mg capsule Stop taking 0 days prior to procedure ibuprofen (ADVIL,MOTRIN) 200 mg tablet Stop taking 1 week prior to procedure levothyroxine (SYNTHROID, LEVOTHROID) 25 MCG tablet Continue as prescribed, take morning of procedure magnesium oxide (MAGOX) 400 mg tablet Stop taking 0 days prior to procedure montelukast (SINGULAIR) 10 mg tablet Stop taking 0 days prior to procedure nebivoloL (BYSTOLIC) 5 mg tablet Stop taking 0 days prior to procedure omeprazole (PriLOSEC) 40 mg capsule Continue as prescribed, take morning of procedure valsartan (DIOVAN) 320 mg tablet Continue as prescribed, take morning of procedure How to Avoid an Infection after [...] tub (Jacuzzi), or perform activities where your incision is submerged in water or exposed to any fluids or substances until instructed by your doctor. -If your have the sticky strips (steri-strips) over the incision, it is OK to shower with them. Do not remove them. Let them fall off on their own. If you have a question, call your doctor s office. Go to the follow-up appointment with your doctor. documented in this encounterJ[facility]. [facility] Miscellaneous Notes* Perioperative Nursing Note - Ora Delvalle RN - 07/05/2025 9:45 AM EDT Preoperative Education Checklist- General Surgery date: 07/08/25 Surgery time: 2:00 p.m. Arrival time: 12:00 p.m. 1. Bring a photo ID and your insurance card with you the day of surgery. You will check in at the main lobby of the [facility]- registration desk is straight ahead as soon as you walk in. Tell them you are here for surgery. 2. If you have a Living Will/Durable Power of Poultice Machine Operator for Health Care that is not [...] after you have bathed. 5. NO nail rwandan/acrylic on at least one finger. If you are having a hand, wrist or foot surgery then all nail rwandan and artificial/acrylic nails must be removed from [...] hoursprior to arrival for your surgery. 16. Notify your surgeon if you develop any illness before your surgery. 17. If you are staying overnight, please DO NOT BRING your home medications with you. 18. If you have any questions prior to surgery, please call the Preadmission Testing office at [phone], Mon.-Fri. 7 a.m.-3 p.m. Leave a voicemail if needed. Pre-Surgery Instructions: Medication Instructions apixaban (ELIQUIS) 5 mg tablet Per Surgeon's instructions acetaminophen (TYLENOL ARTHRITIS) 650 mg 8 hr tablet Stop taking 0 days prior to procedure albuterol (PROVENTIL HFA;VENTOLIN HFA) 90 mcg/actuation inhaler Take morning of procedure, as needed budesonide-formoteroL (SYMBICORT) 80-4.5 mcg/actuation inhaler Continue as prescribed, take morningof procedure calamine-zinc oxide 8-8 % lotion Stop taking 0 days prior to procedure doxepin (SINEquan) 10 mg capsule Stop taking 0 days prior to procedure gabapentin (NEURONTIN) 300 mg capsule Stop taking 0 days prior to procedure ibuprofen (ADVIL,MOTRIN) 200 mg tablet Stop taking 1 week prior to procedure levothyroxine (SYNTHROID, LEVOTHROID) 25 MCG tablet Continue as prescribed, take morning of procedure magnesium oxide (MAGOX) 400 mg tablet Stop taking 0 days prior to procedure montelukast (SINGULAIR) 10 mg tablet Stop taking 0 days prior to procedure nebivoloL (BYSTOLIC) 5 mg tablet Stop taking 0 days prior to procedure omeprazole (PriLOSEC) 40 mg capsule Continue as prescribed, take morning of procedure valsartan (DIOVAN) 320 mg tablet Continue as prescribed, take morning of procedure How to Avoid an Infection after [...] tub (Jacuzzi), or perform activities where your incision is submerged in water or exposed to any fluids or substances until instructed by your doctor. -If your have the sticky strips (steri-strips) over the incision, it is OK to shower with them. Do not remove them. Let them fall off on their own. If you have a question, call your doctor s office. Go to the follow-up appointment with your doctor. * Perioperative Nursing Note - Ora Delvalle RN - 07/05/2025 9:45 AM EDT Hibiclens and surgical instructions reviewed. Patient verbalized understanding. documented in this encounterJ[facility]. [facility]10-[facility] Nurse Note* Perioperative Nursing Note - Ora Delvalle RN - 07/05/2025 9:45 AM EDT Preoperative Education Checklist- General Surgery date: 07/08/25 Surgery time: 2:00 p.m. Arrival time: 12:00 p.m. 1. Bring a photo ID and your insurance card with you the day of surgery. You will check in at the main lobby of the [facility]- registration desk is straight ahead as soon as you walk in. Tell them you are here for surgery. 2. If you have a Living Will/Durable Power of Poultice Machine Operator for Health Care that is not [...] after you have bathed. 5. NO nail rwandan/acrylic on at least one finger. If you are having a hand, wrist or foot surgery then all nail rwandan and artificial/acrylic nails must be removed from [...] hoursprior to arrival for your surgery. 16. Notify your surgeon if you develop any illness before your surgery. 17. If you are staying overnight, please DO NOT BRING your home medications with you. 18. If you have any questions prior to surgery, please call the Preadmission Testing office at [phone], Mon.-Fri. 7 a.m.-3 p.m. Leave a voicemail if needed. Pre-Surgery Instructions: Medication Instructions apixaban (ELIQUIS) 5 mg tablet Per Surgeon's instructions acetaminophen (TYLENOL ARTHRITIS) 650 mg 8 hr tablet Stop taking 0 days prior to procedure albuterol (PROVENTIL HFA;VENTOLIN HFA) 90 mcg/actuation inhaler Take morning of procedure, as needed budesonide-formoteroL (SYMBICORT) 80-4.5 mcg/actuation inhaler Continue as prescribed, take morningof procedure calamine-zinc oxide 8-8 % lotion Stop taking 0 days prior to procedure doxepin (SINEquan) 10 mg capsule Stop taking 0 days prior to procedure gabapentin (NEURONTIN) 300 mg capsule Stop taking 0 days prior to procedure ibuprofen (ADVIL,MOTRIN) 200 mg tablet Stop taking 1 week prior to procedure levothyroxine (SYNTHROID, LEVOTHROID) 25 MCG tablet Continue as prescribed, take morning of procedure magnesium oxide (MAGOX) 400 mg tablet Stop taking 0 days prior to procedure montelukast (SINGULAIR) 10 mg tablet Stop taking 0 days prior to procedure nebivoloL (BYSTOLIC) 5 mg tablet Stop taking 0 days prior to procedure omeprazole (PriLOSEC) 40 mg capsule Continue as prescribed, take morning of procedure valsartan (DIOVAN) 320 mg tablet Continue as prescribed, take morning of procedure How to Avoid an Infection after [...] tub (Jacuzzi), or perform activities where your incision is submerged in water or exposed to any fluids or substances until instructed by your doctor. -If your have the sticky strips (steri-strips) over the incision, it is OK to shower with them. Do not remove them. Let them fall off on their own. If you have a question, call your doctor s office. Go to the follow-up appointment with your doctor. [facility] [id number] Nurse Note* Perioperative Nursing Note - Ora Delvalle RN - 07/05/2025 9:45 AM EDT Hibiclens and surgical instructions reviewed. Patient verbalized understanding. [facility]08[facility] History of Present illness Narrative* Pepper Sexton NP - 05/06/2025 8:57 AM EDTAssociated Problem(s): COPD with acute exacerbation (HCC) Is currently not taking blood thinner Will add medrol dose pack and atb He was alternating between albuterol and symbicort I did explain how each works and symbicort is twice a day EVERY day and albuterol prn Fu if not better * IRENE BOOTH - 05/06/2025 8:20 AM EDT Pt states he still has the cold going on Cough, phlegm, wheezing, sob, stuffy nose. 02 range 89-92 Currently has sl headache * Pepper Sexton NP - 05/06/2025 8:20 AM EDT Images from the original [...] of the risks of continued smoking: stroke, VA, all forms of cancer, lung disease, and . Options for quitting smoking include: cold turkey, hypnosis, acupuncture, nicotine replacement meds(gum, lozenges, and patches), Buproprion, and Varenicline. At this time pt is encouraged to evaluate their goals for wanting to quit smoking, and reach out toprovider when ready to start this process COPD [...] Morbid (severe) obesity due to excess calories ([facility]) Discussed with patient their BMI (actual, verses [...] MG tablet * Pepper Sexton NP - 05/06/2025 6:14 AM EDTAssociated Problem(s): Acute gout of left hand Last apppt we ordered voltaren gel and check uric acid ( Uric acid level 7.2) * Pepper Sexton NP - 05/06/2025 6:13 AM EDTAssociated Problem(s): Nicotine dependence The patient has been advised of the risks of continued smoking: stroke, VA, all forms of cancer, lung disease, and . Options for quitting smoking include: cold turkey, hypnosis, acupuncture, nicotine replacement meds(gum, lozenges, and patches), Buproprion, and Varenicline. At this time pt is encouraged to evaluate their goals for wanting to quit smoking, and reach out toprovider when ready to start this process * Pepper Sexton NP - 05/06/2025 6:12 AM EDTAssociated Problem(s): Morbid (severe) obesity due to excess calories ([facility]) Discussed with patient their BMI (actual, verses recommended). We have also discussed lifestyle modifications: attempts to perform physical activity as chronic conditions allow, also to monitor dietary intake: increasing protein/fruits/veggies and lowering carb intake (unless contraindicated). Limit sodas, juices, and sugary drinks. * Pepper Sexton NP - 05/06/2025 6:12 AM EDTAssociated Problem(s): Gastro- esophageal reflux disease without esophagitis Recommendations: freq small meals, nothing to eat or drink at least 2 hours prior to bed, limit caffeine, alcohol, as well as spicy foods Meds to limit or avoid if possible: NSAIDS Elevate HOB if possible Most recent EGD: 09/2024 Current meds: omeprazole Does continue to have hypomagnesium levels, cannot tolerate off of PPI therapy * Pepper Sexton NP - 05/06/2025 6:12 AM EDTAssociated Problem(s): Essential hypertension, benign Please check blood pressure daily and record DASH diet Limit caffeine Take medication as directed Contact office if chest pain, pressure, dizziness, shortness of breath, swelling legs Recommend slow position changes Current meds: amlodipine,, bystolic, valsartan documented in this [facility]08-14-2025 Instructions* Patient Instructions* Pepper Sexton NP - 05/06/2025 8:20 AM EDT Add antibiotic twice a day for 10 days documented in this [facility]08-07-2025 Evaluation + Plan note* Assessment & Plan Note - Robert Kumar MD - 04/29/2025 8:56 AM EDT Associated Problem(s): Chronic deep vein thrombosis (DVT) of left thigh ([facility]) Compression therapy. Leg elevation and exercise [facility]08-07-[facility] Evaluation + Plan note* Assessment & Plan Note - Robert Kumar MD - 04/29/2025 8:56 AM EDTAssociated Problem(s): 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 (CMS-HCC) Left SSV Ablation and sclerotherapy. Compression stockings. [facility]08-07-[facility] Miscellaneous Notes* Assessment & Plan Note - Robert Kumar MD - 04/29/2025 8:56 AM EDTAssociated Problem(s): Chronic deep vein thrombosis (DVT) of left thigh (CMS-HCC) Compression therapy. Leg elevation and exercise * Assessment & Plan Note - Robert Kumar MD - 04/29/2025 8:56 AM EDT Associated Problem(s): 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 (CMS-HCC) Left SSV Ablation and sclerotherapy. Compression stockings. documented in this encounterJ.W. [facility]08-07-2025 History of Present illness Narrative* Robert Kumar MD - 04/29/2025 8:50 AM EDT Images from the original note were not included. To: PEPPER SEXTON, CSM CONSULTANT-ESTHETICIAN SPA HPI: Abram Guillaume is a 59 y.o. [...] 05/27/2024 Performed by Rupert Bo DO at [facility] Bilateral inguinal LEG SURGERY [...] Strain: Medium Risk (11/25/2023) Received from [facility] Overall Financial Resource Strain (CARDIA) Difficulty of Paying Living Expenses: Somewhat hard Food Insecurity: No Food Insecurity (11/25/2023) Received from [facility] Hunger Vital Sign Worried About Running Out of Food in the Last Year: Never true Ran Out of Food in the Last Year: Never true Transportation Needs: No Transportation Needs (11/25/2023) Received from [facility] PRAPARE - Transportation Lack of Transportation (Medical): No Lack of Transportation (Non-Medical): No Physical Activity: Sufficiently Active (11/25/2023) Received from [facility] Exercise Vital Sign Days of Exercise per Week: 5 days Minutes of Exercise per Session: 150+ min Stress: Stress Concern Present (11/25/2023) Received from [facility] [place] of Occupational Health - Occupational Stress Questionnaire Feeling of Stress : To some extent Social Connections: Moderately Integrated (11/25/2023) Received from [facility] Social Connection and Isolation Panel [NHANES] Frequency of Communication with Friends and Family: Once a week Frequency of Social Gatherings with Friends and Family: Three times a week Attends Muslim Services: Never Active Member of Clubs or Organizations: Yes Attends Club or Organization Meetings: Never Marital Status: Interpersonal Safety: Unknown (11/14/2023) Received from [facility] Safety & Environment Fear of Current or Ex-Partner: Not on file Emotionally Abused: Not on file Physically Abused: Not on file Sexually Abused: Not on file Physically or Sexually Abused: Not on file Housing Instability: Low Risk (11/25/2023) Received from [facility] Housing Stability Vital Sign Unable to [...] deep vein thrombosis (DVT) of left thigh ([facility]) Current Assessment & Plan Compression therapy. Leg elevation and exercise 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 ([facility]) - Primary Current Assessment & Plan Left SSV Ablation and sclerotherapy. Compression stockings. Abram was seen today for follow up testing. Diagnoses and all orders for this visit: 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 ([facility]) Chronic deep vein thrombosis (DVT) of left thigh ([facility]) Other orders - calamine-zinc oxide 8-8 % [...] you for your understanding. documented in this encounterTogus VA Medical CenterMedPageToday [facility] [id number] History of Present illness Narrative* Pepper Sexton NP - 04/07/2025 9:03 AM EDTAssociated Problem(s): Essential hypertension, benign Please check blood pressure daily and record DASH diet Limit caffeine Take medication as directed Contact office if chest pain, pressure, dizziness, shortness of breath, swelling legs Recommend slow position changes Current meds: amlodipine,- (is going to restart), bystolic, valsartan * Pepper Sexton NP - 04/07/2025 9:02 AM EDTAssociated Problem(s): Acute gout of left hand No steroids d/t eliquis No NSAIDS d/t BP Will trial voltaren gel and check uric acid * Pepper Sexton NP - 04/07/2025 9:01 AM EDTAssociated Problem(s): Bronchitis Doxy No resp distress, no wheeze * IRENE BOOTH - 04/07/2025 8:20 AM EDT Possible cold- sob, stuffy/runny nose, drainage, coughing yellow mucus, sinus pressure, for about 2weeks now. No other s/s Pt would also like to discuss left hand pain- started about two weeks ago. Hand was swollen and unable to form fist. When seeing kidney yesterday, pt bp was 140/118. Dr hamilton started him back on the amlodipine 10mg tab. Pt has not picked up as of yet * Pepper Sexton, RHINESTONE SETTER - 04/07/2025 8:20 AM EDT Images from the original note were not included. Abram Guillaume is a 59 y.o. male presents with chief complaint of Follow-up HPI: Possible cold- sob, stuffy/runny nose, drainage, coughing yellow mucus, sinus pressure, for about 2weeks now. No other s/s Pt would also like to discuss left hand pain- started about two weeks ago. Hand was swollen and unable to form fist. When seeing kidney dr yesterday, pt bp was 140/118. Dr hamilton [...] includes PVD. There is no history of CAD/VA or heart failure. Hand Pain The incident occurred more than 1 week ago. There was no injury mechanism. The pain is present in the left fingers. The quality of the pain is described as aching. The pain does not radiate. The painis moderate. The pain has been Fluctuating since [...] Morbid (severe) obesity due to excess calories ([facility]) - Primary Discussed with patient their BMI [...] 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 ([facility]) Reviewed vascular notes Bronchitis Doxy No resp distress, no wheeze Relevant Medications doxycycline (Vibra-Tabs) 100 MG tablet Acute gout of left hand No steroids d/t eliquis No NSAIDS d/t BP Will trial voltaren gel and check uric acid Relevant Medications diclofenac sodium (Voltaren Arthritis Pain) 1 % gel Other Relevant Orders Uric acid * Pepper Sexton NP - 04/07/2025 5:57 AM EDTAssociated Problem(s): 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) Reviewed vascular notes * Pepper Sexton NP - 04/07/2025 5:57 AM EDTAssociated Problem(s): Gastro- esophageal reflux disease without esophagitis Recommendations: freq small meals, nothing to eat or drink at least 2 hours prior to bed, limit caffeine, alcohol, as well as spicy foods Meds to limit or avoid if possible: NSAIDS Elevate HOB if possible Most recent EGD: 09/2024 Current meds: omeprazole Does continue to have hypomagnesium levels, cannot tolerate off of PPI therapy * Pepper Sexton NP - 04/07/2025 5:56 AM EDTAssociated Problem(s): Morbid (severe) obesity due to excess calories ([facility]) Discussed with patient their BMI (actual, verses recommended). We have also discussed lifestyle modifications: attempts to perform physical activity as chronic conditions allow, also to monitor dietary intake: increasing protein/fruits/veggies and lowering carb intake (unless contraindicated). Limit sodas, juices, and sugary drinks. documented in this encounterSaint Mary's Health [id number] Instructions* Patient Instructions* Pepper Sexton NP - 04/07/2025 8:20 AM EDT Diclofenac cream/gel to joint on left hand Next lab draw check uric acid documented in this encounterSaint Mary's Health [id number] Evaluation + Plan note* Assessment & Plan Note - Robert Kumar MD - 04/01/2025 10:43 AM EDT Associated Problem(s): 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 (CMS-HCC) Compression therapy leg elevation exercise. Calamine cream. We will get venous reflux ultrasound. [facility]07-[facility] Evaluation + Plan note* Assessment & Plan Note - Robert Kumar MD - 04/01/2025 10:43 AM EDTAssociated Problem(s): Chronic deep vein thrombosis (DVT) of popliteal vein of left lower extremity(CMS-HCC) Compression therapy venous reflux ultrasound. Calamine cream to the skin. [facility]07-10-20[facility] Miscellaneous Notes* Assessment & Plan Note - Robert Kumar MD - 04/01/2025 10:43 AM EDTAssociated Problem(s): 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 (CMS-HCC) Compression therapy leg elevation exercise. Calamine cream. We will get venous reflux ultrasound. * Assessment & Plan Note - Robert Kumar MD - 04/01/2025 10:43 AM EDT Associated Problem(s): Chronic deep vein thrombosis (DVT) of popliteal vein of left lower extremity(CMS-HCC) Compression therapy venous reflux ultrasound. Calamine cream to the skin. documented in this encounterJ.W. [facility]07-10-20[facility] History of Present illness Narrative* Robert Kumar MD - 04/01/2025 10:00 AM EDT Images from the original note were not included. To: PEPPER SEXTON, CSM CONSULTANT-ESTHETICIAN SPA HPI: Abram Guillaume is a 59 y.o. male with left lower extremity swelling and skin changes consistent with venous eczema. In history he was recently admitted and had superficial thrombophlebitis. The mostrecent CT scan from 3 years ago had [...] every 6 (six) hours asneeded for pain. (Patient not taking: Reported on [...] 05/27/2024 Performed by Rupert Bo DO at [facility] Bilateral inguinal LEG SURGERY [...] Strain: Medium Risk (11/25/2023) Received from [facility] Overall Financial Resource Strain (CARDIA) Difficulty of Paying Living Expenses: Somewhat hard Food Insecurity: No Food Insecurity (11/25/2023) Received from [facility] Hunger Vital Sign Worried About Running Out of Food in the Last Year: Never true Ran Out of Food in the Last Year: Never true Transportation Needs: No Transportation Needs (11/25/2023) Received from [facility] PRAPARE - Transportation Lack of Transportation (Medical): No Lack of Transportation (Non-Medical): No Physical Activity: Sufficiently Active (11/25/2023) Received from [facility] Exercise Vital Sign Days of Exercise per Week: 5 days Minutes of Exercise per Session: 150+ min Stress: Stress Concern Present (11/25/2023) Received from [facility] [place] of Occupational Health - Occupational Stress Questionnaire Feeling of Stress : To some extent Social Connections: Moderately Integrated (11/25/2023) Received from [facility] Social Connection and Isolation Panel [NHANES] Frequency of Communication with Friends and Family: Once a week Frequency of Social Gatherings with Friends and Family: Three times a week Attends Muslim Services: Never Active Member of Clubs or Organizations: Yes Attends Club or Organization Meetings: Never Marital Status: Interpersonal Safety: Unknown (11/14/2023) Received from [facility] Safety & Environment Fear of Current or Ex-Partner: Not on file Emotionally Abused: Not on file Physically Abused: Not on file Sexually Abused: Not on file Physically or Sexually Abused: Not on file Housing Instability: Low Risk (11/25/2023) Received from [facility] Housing Stability Vital Sign Unable to [...] of popliteal vein of left lower extremity ([facility]) Current Assessment & Plan Compression therapy venous reflux ultrasound. Calamine cream to the skin. 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 ([facility]) Current Assessment & Plan Compression therapy leg elevation exercise. Calamine cream. We will get venous reflux ultrasound. Abram was seen today for cellulitis of left lower extremity left leg swelling . Diagnoses and all orders for this visit: Chronic venous insufficiency - Vas venous duplex insufficiency lwr lt; Future - Thigh high anti-embolism stocking Lg/Regular ([id number]) Chronic deep vein thrombosis (DVT) of popliteal vein of left lower extremity (CMS-HCC) 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 ([facility]) Robert Kumar MD, ZAN, RPVI, FSVS, FACS [...] you for your understanding. documented in this encounterJ[facility] History of Present illness Narrative* Pepper Sexton NP - 03/08/2025 8:56 AM [...] Morbid (severe) obesity due to excess calories ([facility]-HCC) Discussed with patient their BMI (actual, verses [...] Morbid (severe) obesity due to excess calories ([facility]) Discussed with patient their BMI (actual, verses [...] about 45 mins ago documented in this encounterSaint Mary's Health [id number] Instructions* Patient Instructions* Pepper Sexton NP - 03/08/2025 8:20 AM EDT Return to work as of 03/09/25 Keep fu appt with me for March Hernando wrap for Left lower leg documented in this encounterSaint Mary's Health [id number] History of Present illness Narrative* Pepper Sexton NP - 02/17/2025 7:28 PM EDTAssociated Problem(s): MARITZA (acute kidney injury) ([facility]) Returning to baseline * Pepper Sexton NP - 02/17/2025 7:28 PM EDTAssociated Problem(s): Cellulitis of left lower extremity Finish atb's Off work until re assessed Elevate foot * Pepper Sexton NP - 02/17/2025 7:27 PM EDTAssociated Problem(s): Nicotine dependence The patient has been advised of the risks of continued smoking: stroke, VA, all forms of cancer, lung disease, and . Options for quitting smoking include: cold turkey, hypnosis, acupuncture, nicotine replacement meds(gum, lozenges, and patches), Buproprion, and Varenicline. At this time pt is encouraged to evaluate their goals for wanting to quit smoking, and reach out toprovider when ready to start this process * Pepper Sexton NP - 02/17/2025 7:26 PM EDTAssociated Problem(s): Hypomagnesemia Since last visit changed magnesium to magnesium glycinate per nephrology They are managing this now * Pepper Sexton NP - 02/17/2025 7:26 PM EDTAssociated Problem(s): Morbid (severe) obesity due to [...] watchers program * Pepper Sexton NP - 02/17/2025 7:26 PM EDTAssociated Problem(s): Chronic kidney disease, stage 3a (HCC) (CMS/HCC) Sees nephrology * Pepper Sexton NP - 02/17/2025 7:26 PM EDTAssociated Problem(s): Essential hypertension, benign (CMS/HCC) Please check blood pressure daily and record DASH diet Limit caffeine Take medication as directed Contact office if chest pain, pressure, dizziness, shortness of breath, swelling legs Recommend slow position changes Current meds: amlodipine, bystolic, valsartan * IRENE BOOTH - 02/17/2025 4:15 PM EDT Left leg-celulitis pt is on two atb levaquin and sefdinir Pt was taken off of the amlodipine. Pt is on elequis * Pepper Sexton NP - 02/17/2025 4:15 PM EDT Images from the original note were [...] of the risks of continued smoking: stroke, VA, all forms of cancer, lung disease, and . Options for quitting smoking include: cold turkey, hypnosis, acupuncture, nicotine replacement meds(gum, lozenges, and patches), Buproprion, and Varenicline. At this time pt is encouraged to evaluate their goals for wanting to quit smoking, and reach out toprovider when ready to start this process Hypomagnesemia [...] (CMS/HCC) Returning to baseline documented in this [facility]05-28-2025 Instructions* Patient Instructions* Pepper Sexton NP - 02/17/2025 4:[address] isabel referral Finish antibiotics, elevate leg Off work 2 weeks, documented in this [facility]04-16-2025 History of Present illness Narrative* Pepper Sexton NP - 01/06/2025 9:00 AM EDT Images from the original note [...] palpitations or peripheral edema (left leg only). Thereare no associated agents to hypertension. Risk factors for coronary artery disease include dyslipidemia, male gender, obesity and sedentary lifestyle. Past treatments include beta blockers, calcium channel blockers and angiotensin blockers. The current treatment provides significant improvement. There are no compliance problems. There is no history of CAD/VA, heart failure or PVD. GERD He reports no chest pain, no dysphagia, no heartburn, no nausea, no sore throat or no wheezing. This is a chronic problem. The current episode started more than 1 year ago. The problem occurs occasionally. The problem has been unchanged. Risk factors include obesity. He has tried a PPI (only taking1 PPI daily) for the symptoms. The treatment [...] panel Chronic kidney disease, stage 3a (HCC) ([facility]) Sees nephrology Relevant Orders Comprehensive metabolic panel * Pepper Sexton NP - 01/06/2025 6:15 AM EDTAssociated Problem(s): Hypothyroidism ([facility]) Current med: levothyroxine Check labs yearly and prn dose changes or symptomatic Has had 30 pound weight gain * Pepper Sexton NP - 01/06/2025 6:14 AM EDTAssociated Problem(s): Screening for prostate cancer Check labs in 03/17 * Pepper Sexton NP - 01/06/2025 6:14 AM EDTAssociated Problem(s): Marijuana use Gummies and smoking * Pepper Sexton NP - 01/06/2025 6:13 AM EDTAssociated Problem(s): Hypomagnesemia Since last visit changed magnesium to magnesium glycinate per nephrology They are managing this now * Pepper Sexton NP - 01/06/2025 6:13 AM EDTAssociated Problem(s): Hyperlipidemia (CMS/HCC) On statin therapy Labs yearly and prn dose changes * Pepper Sexton NP - 01/06/2025 6:13 AM EDTAssociated Problem(s): Morbid (severe) obesity due [...] watchers program * Pepper Sexton NP - 01/06/2025 6:12 AM EDTAssociated Problem(s): Chronic kidney disease, stage 3a (HCC) (CMS/HCC) Sees nephrology * Pepper Sexton NP - 01/06/2025 6:12 AM EDTAssociated Problem(s): Gastro- esophageal reflux disease without esophagitis Recommendations: freq small meals, nothing to eat or drink at least 2 hours prior to bed, limit caffeine, alcohol, as well as spicy foods Meds to limit or avoid if possible: NSAIDS Elevate HOB if possible Most recent EGD: 09/2024 Current meds: omeprazole Does continue to have hypomagnesium levels, cannot tolerate off of PPI therapy * Pepper Sexton NP - 01/06/2025 6:12 AM EDTAssociated Problem(s): Essential hypertension, benign (CMS/HCC) Please check blood pressure daily and record DASH diet Limit caffeine Take medication as directed Contact office if chest pain, pressure, dizziness, shortness of breath, swelling legs Recommend slow position changes Current meds: amlodipine, bystolic, valsartan documented in this encounterSaint Mary's Health [id number] Instructions* Patient Instructions* Pepper Sexton NP - 01/06/2025 9:00 AM EDT Fasting labs due after 03/02/25 documented in this encounterSaint Mary's Health [id number] History of Present illness Narrative* Pepper Sexton NP - 10/07/2024 9:40 AM ESTAssociated Problem(s): Marijuana use Gummies and smoking * Pepper Sexton NP - 10/07/2024 9:00 AM EST Images from the original note were not [...] artery disease include dyslipidemia, male gender, obesity andsmoking/tobacco exposure. Past treatments include beta blockers, calcium channel blockers and angiotensin blockers. The current treatment provides significant improvement. There are no compliance problems. Hypertensive end- organ damage includes kidney disease. There is no history of CAD/VA. Identifi able causes of hypertension include a thyroid problem. [...] muscle weakness, orthopnea or weight loss. Risk factorsinclude obesity and smoking/tobacco exposure. He has tried a PPI for the symptoms. The treatment provided significant relief. Past procedures include an EGD. Thyroid Problem Presents for follow-up visit. Symptoms include fatigue and weight gain. Patient reports no anxiety,cold intolerance, constipation, diarrhea, heat intolerance, tremors or [...] He is obese. He is not ill-appearing, toxic- appearing or diaphoretic. HENT: Head: Normocephalic. Right Ear: [...] Relevant Medications budesonide-formoterol (Symbicort) 160-4.5 MCG/ACT inhaler * Pepper Sexton NP - 10/07/2024 5:47 AM ESTAssociated Problem(s): Pre-diabetes Will check A1c test: recent lab had elevated glucose A1c 5.6%, 10/07/24 * Pepper Sexton NP - 10/07/2024 5:44 AM ESTAssociated Problem(s): Hypomagnesemia Currently taking magnesium supplement of 500mg TID Will check labs * Pepper Sexton NP - 10/07/2024 5:44 AM ESTAssociated Problem(s): Hyperlipidemia (CMS/HCC) On statin therapy Labs yearly and prn dose changes * Pepper Sexton NP - 10/07/2024 5:43 AM ESTAssociated Problem(s): Morbid (severe) obesity due to excess calories (CMS/HCC) Discussed with patient their BMI (actual, verses recommended). We have also discussed lifestyle modifications: attempts to perform physical activity as chronic conditions allow, also to monitor dietary intake: increasing protein/fruits/veggies and lowering carb intake (unless contraindicated). Limit sodas, juices, and sugary drinks. Has gained 30 pounds since 07/16 Recommend weight watchers * Pepper Sexton NP - 10/07/2024 5:43 AM ESTAssociated Problem(s): Hypothyroidism (CMS/HCC) Current med: levothyroxine Check labs yearly and prn dose changes or symptomatic Has had 30 pound weight gain * Pepper Sexton NP - 10/07/2024 5:42 AM ESTAssociated Problem(s): Gastro- esophageal reflux disease without esophagitis Recommendations: freq small meals, nothing to eat or drink at least 2 hours prior to bed, limit caffeine, alcohol, as well as spicy foods Meds to limit or avoid if possible: NSAIDS Elevate HOB if possible Most recent EGD: 09/2024 Current meds: omeprazole Does continue to have hypomagnesium levels, cannot tolerate off of PPI therapy * Pepper Sexton NP - 10/07/2024 5:41 AM ESTAssociated Problem(s): Pulmonary hypertension (CMS/HCC) Per ECHO 02/12 Does not use PAP Current meds: aldactone, amlodipine, valsartan and bystolic * Pepper Sexton NP - 10/07/2024 5:41 AM ESTAssociated Problem(s): Essential hypertension, benign (CMS/HCC) Please check blood pressure daily and record DASH diet Limit caffeine Take medication as directed Contact office if chest pain, pressure, dizziness, shortness of breath, swelling legs Recommend slow position changes Current meds: amlodipine, bystolic, valsartan * Pepper Sexton NP - 10/07/2024 5:40 AM ESTAssociated Problem(s): COPD mixed type (CMS/HCC) Current meds: albuterol prn and symbicort Sporadic use of symbicort, recommend regular use * Pepper Sexton NP - 10/07/2024 5:39 AM ESTAssociated Problem(s): GURVINDER (obstructive sleep apnea) You have a diagnosis of obstructive sleep apnea. It is recommended that you wear your PAP device any time while in bed sleeping. Not using the PAP device can increase your risk of elevated/uncontrolled high blood pressure, atrial fibrillation, heart attack, stroke, or sudden . 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 Attending Dr: James Elaine MD [...] <Electronically signed by James Elaine MD> 10/06/24831 [facility] Work Phone: 1(142) 832-968501-14-2025 [place] [address] EGD Procedure Note Signed Patient: Abram Guillaume MR#: [id number] 4 : 1965 Acct:[id number] Age/Sex: 58 / M Adm Date: 5 Loc: Room: Type: [facility] Attending Dr: James Elaine MD Copies to: MD Pepper Werner NP-C~ Esophagogastroduodenoscopy Date/Provider Date: 10/06/2024 James Elaine MD Procedure Findings: Procedure: EGD with biopsy Indication: 58-year-old man with history of esophagitis here for EGD to assess for Diana's Pre-operative diagnosis: History of esophagitis Post-operative diagnosis: Miramonte-colored mucosa in the esophagus otherwise normal EGD [...] MD 10/06/24 0832 Signed By: 10/06/24 0834 [facility]01-14-2025 [place] [address] Gastroenterology H&P Signed Patient: Abram Guillaume MR#: [id number] 4 : 1965 Acct:[id number] Age/Sex: 58 / M Adm Date: 5 Loc: Room: Type: [facility] Attending Dr: James Elaine MD [...] James Elaine MD 10/06/24830 Signed By: 10/06/2432 [facility]01-06-2025 History of Present illness Narrative * [...] regarding this matter. documented in this encounterSaint Mary's Health [id number] [facility]Fort [facility]10-[facility] History of Present illness Narrative* Pepper [...] scope with GI, has been off his PPI/F4ksunqpsl for up coming EGD etc Continue with [...] scope with GI, has been off his PPI/J8qhdwprps for up coming EGD etc Continue with GI Essential hypertension, benign (CMS/HCC) - Primary At goal no med dose chagnes Hypothyroidism (CMS/HCC) No med dose changes Hypomagnesemia Continue with TID magnesium and fu with Nephrology Relevant Medications magnesium oxide (Mag-Ox) 400 MG tablet Obesity (BMI 30-39.9) Needs flu shot declines documented in this encounterSaint Mary's Health [id number] History of Present illness Narrative* Rupert Bo, [...] Bo/lloyd Bo D.O. documented in this encounterSaint Mary's Health [id number] Telephone encounter Note* Telephone Encounter - DEBI Cho - 06/09/2024 12:22 PM EDT Spoke with patient and he will RTW tomorrow with light duty [facility] Work Phone: [phone]) 115-744409-17-2024 Miscellaneous Notes* Telephone Encounter - DEBI Cho [...] questions, if you could call him at [phone] documented in this encounterSaint Mary's Health CenterOemichseme53-39-5086 Telephone encounter Note* Telephone Encounter - DEBI Cho - 06/09/2024 12:16 PM EDT Spoke with patient and answered questions, he would like to RTW tomorrow with restrictions, spoke with Dr Bo and he said that was fine [facility] [id number] Telephone encounter Note* Telephone Encounter - Sarah Marshall - 06/09/2024 12:13 PM EDT Pt called and left vm stated he has PO questions, if you could call him at [phone] [facility] CenterExlbzjkqlg43-99-6955 History of Present illness Narrative* Blank Mcfarlane [...] weeks, continue off work documented in this [facility]09-03-2024 Telephone encounter Note* Telephone Encounter - Tiburcio Noel NP - 05/26/2024 12:16 PM EDT Post op pain rx. PDMP reviewed [facility] CenterAgihzgzdlx58-59-7588 Miscellaneous Notes* Telephone Encounter - Tiburcio Noel NP - 05/26/2024 12:16 PM EDT Post op pain rx. PDMP reviewed documented in this [facility]08-05-2024 Instructions* Patient Instructions* Ora Delvalle RN - 04/27/2024 8:15 AM EDT Preoperative Education Checklist- General Surgery date: 05/27/24 Surgery time: 0730 a.m. Arrival time: 0610 a.m. 1. Bring a photo ID and your insurance card with you the day of surgery. You will check in at the main lobby of the [facility]- registration desk is straight ahead as soon as you walk in. Tell them you are here for surgery. 2. If you have a Living Will/Durable Power of Poultice Machine Operator for Health Care that is not [...] after you have bathed. 5. NO nail rwandan/acrylic on at least one finger. If you are having a hand, wrist or foot surgery then all nail rwandan and artificial/acrylic nails must be removed from [...] please call the Preadmission Testing office at [phone], Mon.-Fri. 7 a.m.-3 p.m. Leave a voicemail [...] appointment with your doctor. documented in this encounterTogus VA Medical CenterGroup Phoebe [employer] [id number] Miscellaneous Notes* Perioperative Nursing Note - Ora Delvalle RN - 04/27/2024 8:15 AM EDT Preoperative Education Checklist- General Surgery date: 05/27/24 Surgery time: 0730 a.m. Arrival time: 0610 a.m. 1. Bring a photo ID and your insurance card with you the day of surgery. You will check in at the main lobby of the [facility]- registration desk is straight ahead as soon as you walk in. Tell them you are here for surgery. 2. If you have a Living Will/Durable Power of Poultice Machine Operator for Health Care that is not [...] after you have bathed. 5. NO nail rwandan/acrylic on at least one finger. If you are having a hand, wrist or foot surgery then all nail rwandan and artificial/acrylic nails must be removed from [...] please call the Preadmission Testing office at [phone], Mon.-Fri. 7 a.m.-3 p.m. Leave a voicemail [...] reviewed. Patient verbalized understanding. documented in this encounterJ[facility]. [facility]08-[facility]-2024 Nurse Note* Perioperative Nursing Note - Ora Delvalle RN - 04/27/2024 8:15 AM EDT Preoperative Education Checklist- General Surgery date: 05/27/24 Surgery time: 0730 a.m. Arrival time: 0610 a.m. 1. Bring a photo ID and your insurance card with you the day of surgery. You will check in at the main lobby of the [facility]- registration desk is straight ahead as soon as you walk in. Tell them you are here for surgery. 2. If you have a Living Will/Durable Power of Poultice Machine Operator for Health Care that is not [...] after you have bathed. 5. NO nail rwandan/acrylic on at least one finger. If you are having a hand, wrist or foot surgery then all nail rwandan and artificial/acrylic nails must be removed from [...] please call the Preadmission Testing office at [phone], Mon.-Fri. 7 a.m.-3 p.m. Leave a voicemail [...] go swimming or use a hot tub (Trulyi), or perform activities where your hand or [...] to the follow-up appointment with your doctor. [facility] Nurse Note* Perioperative Nursing Note - Ora Delvalle RN - 04/27/2024 8:15 AM EDT Hibiclens and surgical instructions reviewed. Patient verbalized understanding. [facility] HospitalEvaluation [facility]* Diagnosis Onset Date Resolution Status GERD (gastroesophageal reflux disease) acuteHypomagnesemiaacutePrimary hypertensionMedina [facility] Work Phone: Evaluation note* Diagnosis Onset Date Resolution Status GERD (gastroesophageal reflux disease) acuteHypomagnesemiaacutePrimary hypertensionacuteDyspepsiaacuteGERD (gastroesophageal reflux disease)[facility] Work Phone: Evaluation note* Diagnosis Restless legs syndrome Restless legs syndrome (RLS) documented in this encounter [facility] HealthcareEvaluation note* Diagnosis Cubital tunnel syndrome on [...] Morbid (severe) obesity due to excess calories ([facility]) Body mass index (BMI) 38.0-38.9, adult Obesity (BMI 30-39.9) Cigarette nicotine dependence without complication Gastroesophageal reflux disease, unspecified whether esophagitis present Hypomagnesemia Disorders of magnesium metabolism Pre-operative clearance- Primary Unspecified pre-operative examination Hypomagnesemia Disorders of magnesium metabolism Restless legs syndrome Restless legs syndrome (RLS) COPD with acute exacerbation ([facility]/HCC) Chronic bronchitis, unspecified chronic bronchitis type (CMS/HCC) [...] myalgia and myositis documented in this encounter [facility] HealthcareEvaluation note* Diagnosis Essential hypertension, benign [...] [facility] HealthcareEvaluation noteNo assessment information availableMercy Health [facility] Work Phone: Evaluation note* [...] bronchitis type (CMS/HCC) documented in this encounter [facility] [...] Hypertension, unspecified type [facility]* Diagnosis Onset Date Resolution Status Admit Date GERD (gastroesophageal reflux disease) acuteMarch 2024 1:43pmHypomagnesemiaacuteMarch 2024 1:43pmPrimary hypertensionacuteMarch 2024 1:43pm [facility] Work Phone: Evaluation note* Diagnosis Essential hypertension, [...] Morbid (severe) obesity due to excess calories ([facility]-HCC) Body mass index (BMI) 38.0-38.9, adult Obesity [...] Morbid (severe) obesity due to excess calories ([facility]-H[facility]) Gastro-esophageal reflux disease without esophagitis Body mass [...] hypertension, benign Chronic kidney disease, stage 3a ([facility]-HCC) Gastro-esophageal reflux disease without esophagitis Morbid (severe) [...] Morbid (severe) obesity due to excess calories ([facility]-H[facility]) Body mass index (BMI) 38.0-38.9, adult Obesity [...] Morbid (severe) obesity due to excess calories ([facility]) Gastro-esophageal reflux disease without esophagitis Body mass [...] not elsewhere classified documented in this encounter [facility] HealthcareEvaluation note* Diagnosis Chronic venous insufficiency- Primary Unspecified venous (peripheral) insufficiency Chronic deep vein thrombosis (DVT) of popliteal vein of left lower extremity ([facility]-HCC) 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 ([facility]-H[facility]) [facility]* Diagnosis Onset Date Resolution Status Admit Date GERD (gastroesophageal reflux disease) acuteJuly 2024 2:37pmHypomagnesemiaacuteJuly 2024 2:37pmPrimary hypertensionacuteJuly 2024 2:37pm [facility] Work Phone: Evaluation note* Diagnosis Essential hypertension, [...] Morbid (severe) obesity due to excess calories ([facility]-H[facility]) Body mass index (BMI) 38.0-38.9, adult Obesity [...] Morbid (severe) obesity due to excess calories ([facility]) Gastro-esophageal reflux disease without esophagitis Body mass [...] hypertension, benign Chronic kidney disease, stage 3a ([facility]) Gastro-esophageal reflux disease without esophagitis Morbid (severe) obesity due to excess calories ([facility]) Mixed hyperlipidemia Mixed hyperlipidemia Hypomagnesemia Disorders of [...] hand, unspecified cause documented in this encounter [facility] HealthcareEvaluation note* Diagnosis Chronic venous insufficiency- Primary Unspecified venous (peripheral) insufficiency Chronic deep vein thrombosis (DVT) of popliteal vein of left lower extremity (CMS-HCC) 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 (CMS-HCC) 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 (CMS-HCC)- Primary Chronic deep vein thrombosis (DVT) of left thigh (CMS-HCC) documented [facility] encounter [facility]* Diagnosis Essential hypertension, benign- [...] Morbid (severe) obesity due to excess calories ([facility]) Body mass index (BMI) 38.0-38.9, adult Obesity [...] Morbid (severe) obesity due to excess calories ([facility]) Gastro-esophageal reflux disease without esophagitis Body mass [...] hypertension, benign Chronic kidney disease, stage 3a ([facility]) Gastro-esophageal reflux disease without esophagitis Morbid (severe) obesity due to excess calories ([facility]) Mixed hyperlipidemia Mixed hyperlipidemia Hypomagnesemia Disorders of magnesium metabolism Screening for prostate cancer Special screening for malignant neoplasm of prostate Marijuana use Hypothyroidism, unspecified type Fibromyalgia Unspecified myalgia and myositis Cellulitis of left lower extremity- Primary Essential hypertension, benign Essential hypertension, benign Morbid (severe) obesity due to excess calories ([facility]) Hypomagnesemia Disorders of magnesium metabolism Cigarette nicotine [...] encounter [facility] HealthcareEvaluation note* Diagnosis Chronic venous insufficiency- Primary Unspecified venous (peripheral) insufficiency Chronic deep vein thrombosis (DVT) of popliteal vein of left lower extremity (CMS-HCC) 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 (CMS-HCC) 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 (CMS-HCC)- Primary Chronic deep vein thrombosis (DVT) of left thigh (CMS-HCC) 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 (CMS-HCC)- Primary H/O prior ablation treatment- Primary 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 (CMS-HCC) 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 (CMS-HCC) [facility] Diagnosis Chronic venous insufficiency- Primary Unspecified venous (peripheral) insufficiency Chronic deep vein thrombosis (DVT) of popliteal vein of left lower extremity (CMS-HCC) 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 (CMS-HCC) 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 (CMS-HCC)- Primary Chronic deep vein thrombosis (DVT) of left thigh (CMS-HCC) 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 (CMS-HCC)- Primary Preop examination Unspecified pre-operative examination Hypomagnesemia Disorders of magnesium metabolism Preop examination- Primary Unspecified pre-operative examination Hypertension, unspecified type Hypomagnesemia Disorders of magnesium metabolism Preop examination Unspecified pre-operative examination Hypertension, unspecified type 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 (CMS-HCC) [facility] Diagnosis Onset Date Resolution Status Admit Date Essential hypertension, benign acuteOctober 2024 9:23amGERD without esophagitisacuteOctober 2024 9:23amHypomagnesemiaacuteOctober 2024 9:23amHypothyroidismacuteOctober 2024 9:23amNicotine dependenceacuteOctober 2024 9:23amOSA (obstructive sleep apnea)acuteOctober 2024 9:23am [facility] Work Phone: Evaluation note* Diagnosis Chronic venous insufficiency- Primary Unspecified venous (peripheral) insufficiency Chronic deep vein thrombosis (DVT) of popliteal vein of left lower extremity (CMS-HCC) 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 (CMS-HCC) 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 (CMS-HCC)- Primary Chronic deep vein thrombosis (DVT) of left thigh (CMS-HCC) 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 (CMS-HCC)- Primary documented in this [facility]History and physical note Author James Elaine [facility] July 09, 2024 1:12pmNote Date/TimeOctober 2023 1:12[place] [address] Gastroenterology H&P Signed Patient: Abram Guillaume MR#: [id number] 4 : 1965 Acct:[id number] Age/Sex: 58 / M Adm Date: 4 Loc: Room: Type: [facility] Attending Dr: James Elaine MD [...] signed by James Elaine MD> 07/09/24 1312 [facility] Work Phone: Hospital Discharge instructions Additional Instructions [...] -Continue omeprazole 40 mg daily -Office number [phone]. [facility] Work Phone: InstructionsNot on filedocumented in this encounter [facility]ructionsNot on filedocumented in this encounter [facility]ructionsNot on filedocumented in this encounter [facility] SystemInstructionsNot on filedocumented in this encounter [facility] SystemReason for referral (narrative)No reason for referral information [facility] Work Phone: Summary Purpose Family History No Family History Records Found Relationship Condition Age at Onset Recorded Date/T valerie Not Specified No pertinent family history Unknown Advance Directives No Advanced Directives Records Found Advance Directive Response Recorded Date/ Time Advance Directives No March 18 2:19pm Advance Directive Response Recorded Date/ Time Advance Directives No March 18 1:19pm Date ActivatedDate InactivatedComments12/16/2021 11:22 AM12/16/2021 5:00 PMDate ActivatedDate InactivatedComments12/16/2021 11:22 AM12/16/2021 5:00 PM Chief Complaint and Reason for Visit Chief Complaint Hypomagnesemia Reason for Visit GERD (gastroesophage al reflux disease) Hypomagnesemia Primary hypertension Chief Complaint RENAL 3 MONTH FU Reason for Visit GERD (gastroesophage al reflux disease) Hypomagnesemia Primary hypertension Chief Complaint RENAL 3 MONTH FU Referred by Pepper Sexton: GERDReason for VisitGERD (gastroesophageal reflux disease) Hypomagnesemia Primary hypertension Dyspepsia GERD (gastroesophageal reflux disease) Chief Complaint RENAL 3 MONTH FU Referred by Pepper Sexton: GERD GERD Gastroesophageal reflux disease (GERD)Reason for VisitGERD (gastroesophageal reflux disease) Hypomagnesemia Primary hypertension Dyspepsia GERD [...] Primary hypertension April 06, 2025 2:3 7pm Chief Complaint Admit Date 3M July 12, 2025 9 :23am Reason for Visit Admit Date Essential hypertension, benign June 242024 9:23am GERD without esophagitis July 12, 025 9:23am Hypomagnesemia July 12, 2025 9 :23am Hypothyroidism July 12, 2025 9 :23am Nicotine dependence July 12, 2025 9 :23am GURVINDER (obstructive sleep apnea) July 122024 9:23am Reason for Referral SpecialtyDiagnoses / ProceduresReferred By ContactReferred To Contact Diagnoses Preop examination Hypertension, unspecified type Procedures ECG 12 lead Rupert Bo DO [address] [facility] [address] [place] [address] Referral IDStatusReasonStart DateExpiration DateVisits RequestedVisits [id number] Review Additional Source Comments (unrecognized sect ion and content) No Status Records FoundNo Status Records FoundNo Status Records FoundNo Status Records FoundNo Status Records FoundNo Status Records Found INFORMATION SOURCE (unrecogn ized section and content) DATE CREATED AUTHOR 05/18/2022 [facility] DATE CREATED AUTHOR AUTHOR'S ORGANIZ ATION 07/22/2022 [facility] DATE CREATED AUTHOR AUTHOR'S ORGANIZ ATION 10/16/2024 [facility] DATE CREATED AUTHOR AUTHOR'S ORGANIZ ATION 05/07/2025 [facility] EP[facility] DATE CREATED AUTHOR AUTHOR'S ORGANIZ ATION 07/16/2025 [facility] DATE CREATED AUTHOR AUTHOR'S ORGANIZ ATION 07/24/2025 [facility] Care Teams (unrecognized sec tion and content) Team Status: Active Member Role Status Dates Pepper Sexton Primary Care Provider Active Team Status: Active Member Role Status Dates Pepper Sexton Primary Care Provider Active Sta rt: March 17, 2025 Pavithra Medina ProviderActiveStart: March 17, 2025 Team Status: Inactive Member Role Status Dates Pepper Sexton Primary Care Provider Active Sta rt: April 06, 2025 End: April 06Pavithra Pérez ProviderActiveStart: April 06, 2025 End: April 06, 2025 Team Status: Inactive Member Role Status Dates Tang Hamilton MD Attending Provider Active Star t: March 19, 2024 End: March 19, 2024[facility] Care ProviderActiveStart: March 19, 2024 End: March 19, 2024 Team Status: Inactive Member Role Status Dates Pepper Sexton Primary Care Provider Active Sta rt: June 23, 2024 End: June 23kellen Dejesusdeon RENEEana maría ProviderActiveStart: June 23, 2024 End: June 23, 2024Team MemberRelationshipSpecialtyStart DateEnd Date Anastacio Hinojosa MD [address] [place] [address] PCP - GeneralFamily Medicine11/26/23 Pepper Sexton NP [address] [place] [address] PCP - [facility]04/23/24 Pepper Sexton NP [address] [place] [address] Nurse [facility] Medicine11/26/23 Team Status: Inactive Member Role Status Dates Pepper Sexton Primary Care Provider Active Sta rt: June 24, 2024 End: June 24Dandy Lucio ProviderActiveStart: June 24, 2024 End: June 24, 2024Team MemberRelationshipSpecialtyStart DateEnd Date Anastacio Hinojosa MD [address] [place] [address] PCP - GeneralFanhly Medicine11/26/23 Pepper Sexton NP [address] [place] [address] PCP - [facility] [employer]04/23/24 Pepper Sexton NP [address] [place] [address] Nurse Pract[facility]er[facility] Medicine11/26/23Team MemberRelationshipSpecialtyStart DateEnd Date Anastacio Hinojosa MD [address] [place] [address] PCP - GeneralFamily Medicine11/26/23 Pepper Sexton NP [address] [place] [address] PCP - [facility]04/23/24 Pepper Sexton NP [address] [place] [address] Nurse PractitionerFamily Medicine11/26/23Team MemberRelationshipSpecialtyStart DateEnd Date Anastacio Hinojosa MD [address] [place] [address] PCP - GeneralFamily Medicine11/26/23 Pepper Sexton NP [address] [place] [address] PCP - [facility]04/23/24 Ppeper Sexton NP [address] [place] [address] Nurse PractitionerFamily Medicine11/26/23Team MemberRelationshipSpecialtyStart DateEnd Date Anastacio Hinojosa MD [address] [place] [address] PCP - GeneralFamily Medicine11/26/23 Pepper Sexton NP [address] [place] [address] PCP - [facility] [employer]04/23/24 Pepper Sexton NP [address] [place] [address] Nurse Pract[facility] Medicine11/26/23Team MemberRelationshipSpecialtyStart DateEnd Date Anastacio Hinojosa MD [address] [place] [address] PCP - [facility]11/26/23 Pepper Sexton NP [address] [place] [address] PCP - [facility] [employer]04/23/24 Pepper Sexton NP [address] [place] [address] [facility]11/26/23 Team Status: Inactive Member Role Status Dates Pepper Sexton Primary Care Provider Active Sta rt: July 09, 2024 End: July 09, 2024ImaPavithra Smith ProviderActiveStart: July 09, 2024 End: July 09, 2024 Team Status: Active Member Role Status Dates Pepper Sexton Primary Care Provider Active Sta rt: July 09, 2024 ImPavithra Taylor Provider, Other ProviderActiveStart: July 09, 2024 Team MemberRelationshipSpecialtyStart DateEnd Date Anastacio Hinojosa MD [address] [place] [address] PCP - GeneralFamily Medicine11/26/23 Pepper Sexton NP [address] [place] [address] PCP - [facility]04/23/24 Pepper Sexton NP [address] [place] [address] [facility]11/26/23Team MemberRelationshipSpecialtyStart DateEnd Date Anastacio Hinojosa MD [address] [place] [address] PCP - GeneralFamily Medicine11/26/23 Pepper Sexton NP [address] [place] [address] PCP - [facility]04/23/24 Pepper Sexton NP [address] [place] [address] [facility]11/26/23Team MemberRelationshipSpecialtyStart DateEnd Date Anastacio Hinojosa MD [address] [place] [address] PCP - GeneralFamily Medicine11/26/23 Pepper Sexton NP [address] [place] [address] PCP - [facility]04/23/24 Pepper Sexton NP [address] [place] [address] Nurse Pract[facility] Medicine11/26/23Team MemberRelationshipSpecialtyStart DateEnd Date Anastacio Hinojosa MD [address] [place] [address] PCP - [facility]Charles [facility] Medicine11/26/23 Pepper Sexton NP [address] [place] [address] Nurse Pract[facility]er[facility] Medicine11/26/23Team MemberRelationshipSpecialtyStart DateEnd Date Anastacio Hinojosa MD [address] [place] [address] PCP - [facility] Medicine11/26/23 Pepper Sexton NP [address] [place] [address] PCP - [facility] [employer]04/23/24 Pepper Sexton NP [address] [place] [address] Nurse Pract[facility] Medicine11/26/23Team MemberRelationshipSpecialtyStart DateEnd Date Anastacio Hinojosa MD [address] [place] [address] PCP - [facility]Charles [facility] Medicine11/26/23 Pepper Sexton NP [address] [place] [address] PCP - [facility] [employer]04/23/24 Pepper Sexton NP [address] [place] [address] Nurse PractitionerFamily Medicine11/26/23 Team Status: Inactive Member Role Status Dates Pepper Sexton Primary Care Provider Active Sta rt: October 06, 2024 End: October 06, 2024Imad Argentina , MDAttending ProviderActiveStart: October 06, 2024 End: October 06, 2024 Team Status: Active Member Role Status Dates Pepper Sexton Primary Care Provider Active Sta rt: October 06, 2024 Imad Asarosalie , MDAttending Provider, Other ProviderActiveStart: October 06, 2024 Team MemberRelationshipSpecialtyStart DateEnd Date Anastacio Hinojosa MD [address] [place] [address] PCP - GeneralFamily Medicine11/26/23 Pepper Sexton NP [address] [place] [address] PCP - [facility]04/23/24 Pepepr Sexton NP [address] [place] [address] Nurse PractitionerFamily Medicine11/26/23Team MemberRelationshipSpecialtyStart DateEnd Date Anastacio Hinojosa MD [address] [place] [address] PCP - GeneralFamily Medicine11/26/23 Pepper Sexton NP [address] [place] [address] PCP - [facility] [employer]04/23/24 Pepper Sexton NP [address] [place] [address] Nurse PractitionerFamily Medicine11/26/23Team MemberRelationshipSpecialtyStart DateEnd Date Anastacio Hinojosa MD [address] [place] [address] PCP - GeneralFanhly Medicine11/26/23 Pepper Sexton NP [address] [place] [address] PCP - [facility] [employer]04/23/24 Pepper Sexton NP [address] [place] [address] [facility]11/26/23Team MemberRelationshipSpecialtyStart DateEnd Date Anastacio Hinojosa MD [address] [place] [address] PCP - GeneralFamily Medicine11/26/23 Pepper Sexton NP [address] [place] [address] PCP - [facility] [employer]04/23/24 Pepper Sexton NP [address] [place] [address] Nurse PractitionerFamily Medicine11/26/23Team MemberRelationshipSpecialtyStart DateEnd Date Anastacio Hinojosa MD [address] [place] [address] PCP - GeneralFamily Medicine11/26/23 Pepper Sexton NP [address] [place] [address] PCP - [facility] [employer]04/23/24 Pepper Sexton NP [address] [place] [address] [facility]11/26/23Team MemberRelationshipSpecialtyStart DateEnd Date Anastacio Hinojosa MD [address] [place] [address] PCP - Generalmily Medicine11/26/23 Pepper Sexton NP [address] [place] [address] PCP - [facility] [employer]04/23/24 Pepper Sexton NP [address] [place] [address] Nurse Practitionermily Medicine11/26/23Team MemberRelationshipSpecialtyStart DateEnd Date Pepper Sexton, CSM CONSULTANT-ESTHETICIAN SPA [address] [place] [address] PCP - [facility]Nurse [facility]05/10/22 Team Status: Active Member Role Status Dates Pepper Sexton Primary Care Provider Active Sta rt: November 24, 2024 Davidfede Hamilton Pavithra ProviderActiveStart: November 24, 2024 Team Status: Inactive Member Role Status Dates Pepper Sexton Primary Care Provider Active Sta rt: December 02, 2024 End: December 02kellen Ann MariePavithra ochoa ProviderActiveStart: December 02, 2024 End: December 02, 2024Team MemberRelationshipSpecialtyStart DateEnd Date Anastacio Hinojosa MD [address] [place] [address] PCP - GeneralFamily Medicine11/26/23 Pepper Sexton NP [address] [place] [address] PCP - [facility] [employer]04/23/24 Pepper Sexton NP [address] [place] [address] [facility]11/26/23Team MemberRelationshipSpecialtyStart DateEnd Date Anastacio Hinojosa MD [address] [place] [address] PCP - GeneralFamily Medicine11/26/23 Pepper Sexton NP [address] [place] [address] PCP - [facility] [employer]04/23/24 Pepper Sexton NP [address] [place] [address] [facility]11/26/23Team MemberRelationshipSpecialtyStart DateEnd Date Anastacio Hinojosa MD [address] [place] [address] PCP - Generalmily Medicine11/26/23 Pepper Sexton, REBMERTO [address] [place] [address] Nurse Pract[facility] Medicine11/26/23Team MemberRelationshipSpecialtyStart DateEnd Date Anastacio Hinojosa MD [address] [place] [address] PCP - [facility]Charles [facility] Medicine11/26/23 Pepper Sexton, REMBERTO [address] [place] [address] Nurse Practitioner[facility] Medicine11/26/23Team MemberRelationshipSpecialtyStart DateEnd Date Anastacio Hinojosa MD [address] [place] [address] PCP - [facility]Charles [facility] Medicine11/26/23 Pepper Sexton NP [address] [place] [address] Nurse Pract[facility]er[facility] Medicine11/26/23Team MemberRelationshipSpecialtyStart DateEnd Date Anastacio Hinojosa MD [address] [place] [address] PCP - GeneralFamily Medicine11/26/23 Pepper Sexton NP [address] [place] [address] Nurse Practitionermily Medicine11/26/23Team MemberRelationshipSpecialtyStart DateEnd Date Anastacio Hinojosa MD [address] [place] [address] PCP - GeneralFamily Medicine11/26/23 Pepper Sexton NP [address] [place] [address] Nurse Practitionermily Medicine11/26/23Team MemberRelationshipSpecialtyStart DateEnd Date Anastacio Hinojosa MD [address] [place] [address] PCP - GeneralFamily Medicine11/26/23 Pepper Sexton NP [address] [place] [address] Nurse Practitionermily Medicine11/26/23Team MemberRelationshipSpecialtyStart DateEnd Date Anastacio Hinojosa MD [address] [place] [address] PCP - GeneralFamily Medicine11/26/23 Pepper Sexton NP [address] [place] [address] Nurse Pract[facility] Medicine11/26/23Team MemberRelationshipSpecialtyStart DateEnd Date Anastacio Hinojosa MD [address] [place] [address] PCP - [facility]Charles [facility] Medicine11/26/23 Pepper Sexton NP [address] [place] [address] Nurse PractitionerCharles [facility] Medicine11/26/23Team MemberRelationshipSpecialtyStart DateEnd Date Anastacio Hinojosa MD [address] [place] [address] PCP - [facility] Medicine11/26/23 Pepper Sexton NP [address] [place] [address] [facility]11/26/23Team MemberRelationshipSpecialtyStart DateEnd Date Pepper Sexton, CSM CONSULTANT-ESTHETICIAN SPA [facility] - [facility]05/10/22Team MemberRelationshipSpecialtyStart Date End Date Anastacio Hinojosa MD [address] [place] [address] PCP - [facility]11/26/23 Pepper Sexton NP [address] [place] [address] [facility]11/26/23Team MemberRelationshipSpecialtyStart DateEnd Date Anastacio Hinojosa MD [address] [place] [address] PCP - GeneralFamily Medicine11/26/23 Pepper Sexton NP [address] [place] [address] [facility]11/26/23Team MemberRelationshipSpecialtyStart DateEnd Date Anastacio Hinojosa MD [address] [place] [address] PCP - Generalmily Medicine11/26/23 Pepper Sexton NP [address] [place] [address] Nurse Pract[facility]er[facility] Medicine11/26/23Team MemberRelationshipSpecialtyStart DateEnd Date Pepper Sexton, CSM CONSULTANT-ESTHETICIAN SPA PCP - GeneralNurse Practitioner05/10/22Team MemberRelationshipSpecialtyStart Date End Date Anastacio Hinojosa MD [address] [place] [address] PCP - GeneralFamily Medicine11/26/23 Pepper Sexton NP [address] [place] [address] Nurse PractitionerFamily Medicine11/26/23Team MemberRelationshipSpecialtyStart DateEnd Date Anastacio Hinojosa MD [address] [place] [address] PCP - GeneralFamily Medicine11/26/23 Pepper Sexton NP [address] [place] [address] Nurse Pract[facility] Medicine11/26/23Team MemberRelationshipSpecialtyStart DateEnd Date Anastacio Hinojosa MD [address] [place] [address] PCP - [facility]11/26/23 Pepper Sexton NP [address] [place] [address] Nurse Pract[facility] Medicine11/26/23Team MemberRelationshipSpecialtyStart DateEnd Date Pepper Sexton APRN-ESTHETICIAN SPA PCP - GeneralNurse Practitioner05/10/22Team MemberRelationshipSpecialtyStart Date End Date Pepper Sexton APRN-ESTHETICIAN SPA PCP - GeneralNurse Practitioner05/10/22 Team Status: Active Member Role/Relationship Status Dates Pepper Sexton NP-Radames Primary Care Provider Active Team Status: Active Member Role/Relationship Status Dates EVANGELINA Calix Primary Care Provider Active Start: April 13, 2025 Pavithra Medina ProviderActiveStart: April 13, 2025 Team Status: Active Member Role/Relationship Status Dates Pepper Sexton RHINESTONE SETTER-C Primary Care Provider Active Start: May 06, 2025 Pavithra Medina ProviderActiveStart: May 06, 2025 Team Status: Active Member Role/Relationship Status Dates Pepper Sexton RHINE[employer]ONE SETTER-C Primary Care Provider Active Start: May 26, 2025 Davidfede OlegDemetria chavarriaending ProviderActiveStart: May 26, 2025 Team Status: Active Member Role/Relationship Status Dates Pepper Sexton [employer] SETTER-C Primary Care Provider Active Start: June 16, 2025 Demetria Medinaending ProviderActiveStart: June 16, 2025 Team Status: Inactive Member Role/Relationship Status Dates Pepper Sexton RHINESTONE SETTER-C Primary Care Provider Active Start: July 12, 2025 End: July 12, 2025Pepper Sexton NP-CAttenconnie ProviderActiveStart: July 12, 2025 End: July 12, 2025Team MemberRelationshipSpecialtyStart DateEnd Date Pepper Sexton, CSM CONSULTANT-ESTHETICIAN SPA PCP - GeneralNurse Practitioner05/10/22 Goals (unrecognized section and content) Goals may be documented in a n alternate sectionGoals may be documented in an alternate sectionGoals may be documented in an alternate sectionNot on filedocumented as of this encounterNot on filedocumented as of this encounterGoals may be documented in an alternate sectionNot on filedocumented as of this encounterGoals may be documented in an alternate sectionNot on filedocumented as of this encounter Reason for Visit (unrecogniz ed section and content) ReasonCommentsFollow-upReasonOnset CslpSrwfsihfmnxegeurw24/17/2024ReasonComments Med CyiyvcYuvezaSkgkbswvIhhj-yyMstqsxWpwqeskgIbrzmxkhtmtsXsripvUsbhwxakLegfby-az 3mReasonCommentscellulitus of legReasonCommentsCellulitis of left lower extremity Left leg swellingSpecialtyDiagnoses / ProceduresReferred By Contact Referred To ContactVascular Surgery Diagnoses Cellulitis of left lower extremity Left leg swelling Procedures MD OFFICE OUTPATIENT VISIT 60-74 MINS [facility] [id number] (SNOMED CT) - AMB REFERRAL TO VASCULAR SURGERY Pepper Sexton, CSM CONSULTANT-ESTHETICIAN SPA Phone: tel: fax: Fátima Isabel MD [address], [address] [address] Phone: tel:[phone] fax: Referral IDStatusReasonStart DateExpiration DateVisits RequestedVisits [id number] up testingFollow up with testing and compression. Vas venous duplex insufficiency lwr lt on 04/20/2025. 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 [employer] provides no warranty or guarantee of the accuracy or completeness of information in this document.
[2025-08-03 12:59] LABS: Magnesium 1.0 mg/dL (1.8-2.4)
== END 2025-08-03 11:46 | disposition home or self-care (01) ==
LOC: LAB 11:48
PROVIDERS: PCP Nurse Practitioner; Visit Provider Internal Medicine Nephrology
DX: E83.42 Hypomagnesemia (principal); K21.00 Gastro-esophageal reflux disease with esophagitis, without bleeding; I10 Essential (primary) hypertension
CPT/HCPCS: 36415; 83735

== ENCOUNTER 2025-08-25 09:27 | Outpatient (OUT) | payer OTHER, SELFPAY ==
--- OUTSIDE RECORDS SUMMARY | 2025-08-25 04:17 | XMS_ITS | Continuity of Care Document ---
Author Organization [facility] Address [address] [place] [address] Phone Care Team Providers Care [employer] Name Role Phone Pepper Sexton MACHINE BASTER-C Primary Care Provider [phone] Tang Haro MD Attending Provider Pepper Sexton MACHINE BASTER-C Attending Provider Care Teams Patient Care Team Team Status: Active Member Role/Relationship Status Dates Pepper Sexton NP-C Primary Care Provider Active Visit Care Team Team Status: Active Member Role/Relationship Status Dates Pepper Sexton NP-C Primary Care Provider Active Start: June 16, 2025 Pavithra Medina ProviderActiveStart: June 16, 2025 Visit Care Team Team Status: Inactive Member Role/Relationship Status Dates Pepper Sexton NP-C Primary Care Provider Active Start: July 12, 2025 End: July 12, 2025Hermann Calixtending ProviderActiveStart: July 12, 2025 End: July 12, 2025 Patient Care Team Team Status: Active Member Role/Relationship Status Dates Pepper Sexton NP-C Primary Care Provider Active Start: August 03, 2025 Pavithra Medina ProviderActiveStart: August 03, 2025 Patient Care Team Team Status: Inactive Member Role/Relationship Status Dates Pepper Sexton NP-C Primary Care Provider Active Start: August 25, 2025 End: August 25, 2025Pepper Sexton NP-CAttending ProviderActiveStart: August 25, 2025 End: August 25, 2025 Chief Complaint and Reason for Visit Chief Complaint Admit Date 3M July 12, 2025 9 :23am 6W August 25, 2025 8 :42am Reason for Visit Admit Date Essential hypertension, benign June 242024 9:23am GERD without esophagitis July 12 9:23am Hypomagnesemia July 12, 2025 9 :23am Hypothyroidism July 12, 2025 9 :23am Nicotine dependence July 12, 2025 9 :23am Colon cancer screening August 25 8:42am Essential hypertension, benign August 25, 2025 8:42am GERD without esophagitis August 25 8:42am Hyperlipidemia August 25, 2025 8 :42am Hypomagnesemia August 25, 2025 8 :42am Hypothyroidism August 25, 2025 8 :42am GURVINDER (obstructive sleep apnea) August 252024 8:42am Prediabetes August 25, 2025 8 :42am Allergies, Adverse Reactions, Alerts Allergen Type Severity Reaction Last Updated Verified Status No Known Allergies Allergy Unknown August 25, 2025 8:59amYesActive Social History Smoking Status Status Start Date End Date Date of Observa tion Never smoked tobacco (finding) April 06, 2025 2:42pm Observation Status Observation Response Date of Response Legal Sex Male (finding) [facility] 1965 Family History Relationship Condition Age at Onset Recorded Date/T valerie Not Specified No pertinent family history Unknown Problems Active Problems Problem Diagnosis/Recorded Date Onset Date Stat us MARITZA (acute kidney injury) July 06, 2025 7:29am Un known Active Orthopedic hardware present July 06, 2025 7:43am Unknown Active Nicotine dependence July 06, 2025 7:43am Unknown Active Varicose veins of lower extr emity with varicose ulcer and eczema July 06, 2025 7:45am Unknown Active GURVINDER (obstructive sleep apnea) July 06, 2025 7:43a m Unknown Active Left leg swelling July 06, 2025 7:42am Unknown Active Screening for prostate cancer July 06, 2025 7:45a m Unknown Active Colon cancer screening August 25, 2025 6:04am Unkno wn Active COPD with acute exacerbation July 06, 2025 7:32am Unknown Active COPD mixed type July 06, 2025 7:32am Unknown Active Essential hypertension, benign July 06, 2025 7:34 am Unknown Active Cervical radiculopathy July 06, 2025 7:30am Unkno wn Active Marijuana use July 06, 2025 7:43am Unknown A ctive Arthritis July 06, 2025 7:30am Unknown Ac tive Pulmonary hypertension July 06, 2025 7:44am Unkno wn Active Atopic dermatitis July 06, 2025 7:30am Unknown Active Dyspepsia June 24, 2024 8:02am Unknown Act ketan Fibromyalgia July 06, 2025 7:34am Unknown Ac tive Hyperglycemia July 06, 2025 7:35am Unknown A ctive Hyperlipidemia July 06, 2025 7:35am Unknown Active Hypersomnia July 06, 2025 7:35am Unknown Ac tive Hypothyroidism June 10, 2025 8:27pm Unknown Active Pinched nerve July 06, 2025 7:44am Unknown A ctive Paresthesia of both hands July 06, 2025 7:44am Un known Active Abnormal stress test July 06, 2025 6:59am Unknown Active Psoriasis July 06, 2025 7:44am Unknown Ac tive RLS (restless legs syndrome) July 06, 2025 7:44am Unknown Active DDD (degenerative disc disea se), cervical July 06, 2025 7:33am Unknown Active Venous reflux July 06, 2025 7:46am Unknown A ctive Primary hypertension March 19, 2024 9:03am Unknown Active Acute gout of left hand July 06, 2025 7:29am Unkn own Active Chronic deep vein thrombosis (DVT) of left thigh July 06, 2025 7:31am Unknown Active Chronic deep vein thrombosis (DVT) of popliteal vein of left lower extremity July 06, 2025 7:31am Unknown Active LV dysfunction July 06, 2025 7:43am Unknown Active BMI 37.0-37.9, adult July 06, 2025 7:30am Unknown Active GERD without esophagitis July 06, 2025 7:35am Unk nown Active Prediabetes July 06, 2025 7:44am Unknown Ac tive Stage 3a chronic kidney disease July 06, 2025 7:3 2am Unknown Active Electrolyte abnormality July 06, 2025 7:34am Unkn own Active Cough in adult July 06, 2025 7:33am Unknown Active Acute gastric ulcer without hemorrhage or perforation July 06, 2025 7:29am Unknown Active Carpal tunnel syndrome on both sides July 06 7:30am Unknown Active Hypomagnesemia March 19, 2024 9:03am Unknown Act ketan Medications Medication Status Dose Units Route Directions Qty Days Refills S tart Date Stop Date End Date Reason(s) Instructions Adherence Famotidine (Pepcid) 20 mg tablet Discontinued 20 MG PO Twice daily 180 1July 2023 4:47pmJuly 2023 4:48pmFamotidine (Pepcid) 20 mg tablet Bcghatajfytw85LDZUFhyan acqym9262Ymdf2023 4:47pmOctober 2023 9:40am Magnesium Sulfate In Water 4 gram/100 mL (4 %) hcclsggjkBuppivgiszcl0TRTYNxyb3 November 24, 2024 12:00amJuly 2024 1:56pmadminister over 2-4 hrsMagnesium Glycinate 100 mg magnesium eftcqbzDtkziuwhaaou486EAVGFvguw times pkbem011666Sqje 12th, 2025 2:50pmJune 2024 10:40amMagnesium Glycinate 100 mg magnesium qtgeoxiGwbpzg331MCQHDgigh times eqpee886105Swin 13th, 2025 10:40amComplies with drug therapyLevothyroxine 112 mcg mcqunkZcxvgw597NDRTFYonpc136Taingonxg 2024 11:00pmHypothyroidism Hypothyroidism, unspecifiedComplies with drug therapyGabapentin 600 mg tablet Ffcsfz816ZETMAwypm times mebgq8988Gscsayol 2024 8:49amFibromyalgia FibromyalgiaComplies with drug therapyOmeprazole 40 mg capsule,delayed release(DR/EC)Rlvykobqbccc74QDACRhroa heivm0693Cuuwaui 17th, 2024 12:22pmOctober 2024 8:52amFamotidine (Pepcid) 20 mg vgvclmBrzhdiczomax0JRKqmsh daily June 23, 2024 9:37amDecember 2023 7:80fl18zj in am, 20 mg in pm orally twice daily;Budesonide-Formoterol 160-4.5 mcg/actuation HFA aerosol inhaler Ajqimn8HLQRJMSMRSEDDYFkjik daily as needed for shortness of breath or wheezing June 22, 2024 11:00pmComplies with drug therapyOmeprazole 40 mg capsule,delayed release(DR/EC)Tssyhpcpzxfd05KDPOVxntg 72 hoursSeptember 2023 11:00pmOctober 2023 7:41amOmeprazole 40 mg capsule,delayed release(DR/EC)Ktzzzovfsvfm93GXGCFttlaXommdkr 2nd, 2024 7:41amOctober 2023 12:23pmMagnesium Glycinate 100 mg magnesium otybynyHrazqbmpvfyv559PUXKVmvwc times tyocw958Fitxo 2024 11:00pmJune 2024 2:51pmAmlodipine 10 mg xtksymZreswc58XMAJGjtusUmep 2023 11:00pmComplies with drug therapy Albuterol Sulfate 90 mcg/actuation HFA aerosol fnueshmFrxkvo1OWLRFRIOAMCYKUHrivc 6 hours as needed for shortness of breath or wheezingMarch 18, 2024 11:00pm Complies with drug therapyBudesonide-Formoterol (Symbicort) 80-4.5 mcg/actuation HFA aerosol umaanflCumpewsezlxs3YNFEIMRBCFAYFBBbqqp dailyJune 2023 11:00pm March 19, 2024 8:41amDoxepin 100 mg drudnldMmhwgxgubafr336SCQDWgyeg at bedtime March 18, 2024 11:00pmBe[facility] 2024 6:20amGabapentin 600 mg tablet Bceizlvevtpw700URFMTgqjh dailyJune 2023 11:00pmOctclark regional medical center 2024 6:26am Levothyroxine 100 mcg kqbncgMdluejeftvot198WQKKPGqtsyNbyx 2023 11:00pm June 10, 2025 8:26pmMagnesium Oxide 400 mg (241.3 mg magnesium) tablet Pgywjwdkgjfy672EWQBYgbhg dailyJune 2023 11:00pmJune 2023 8:41am Meloxicam 15 mg iovteyPfnpyoywujzh76GHPYBoxynArnk 4 11:00pmDecember 2023 7:17amMontelukast 10 mg ltajcnGrpnkl49UZAOOyuve at bedtimeJun2023 11:00pmComplies with drug therapyNaltrexone 4.5 mg capsuleDiscontinuedMGPO March 18, 2024 11:00pmJun2023 8:41amNebivolol 10 mg jddpxmJhhoor49AVVO DailyJun2023 11:00pmComplies with drug therapyOmeprazole 40 mg capsule,delayed release(DR/EC)Samdpgxrvtus36HHWODefxCqcx 26th, 2024 11:00pmJun2023 9:03amValsartan 320 mg yifpsxKzyvly026QQODAjsakSkdn 26th, 2024 11:00pmComplies with drug therapyBudesonide-Formoterol (Symbicort) 80-4.5 mcg/actuation HFA aerosol xkynuyvNgrisgzslxbx9CRMLWKRPICKXFZJryfz daily as neededJun2023 8:38amOctober 2023 9:39amMagnesium Oxide 400 mg (241.3 mg magnesium) crhnbjCjkdirwjicci592FSTTRlzrt times dailyJun2023 8:39amMarch 2024 1:07pmNaltrexone 4.5 mg capsuleDiscontinued4.5MGPO.QDJun2023 8:40amOctober 2024 8:51amClonidine Hcl 0.1 mg tablet Discontinued0.1MGPOTwice taofr152Ommy 26th, 2024 11:00pmOctober 2024 8:50amFamotidine (Pepcid) 20 mg sucsbhVcqypajvrbmm81CAKUMbjtt hivsk229Zoql 26th, 2024 11:00pmJuly 2023 4:47pmGabapentin 600 mg grkjrrDyzjhlxhtgry780DJHY Three times dailyOct2024 6:21amNovember 2024 8:50amMagnesium Sulfate In Water 4 gram/100 mL (4 %) yiogrijrqNjgsmtsbagiy0JCYKYQZGQ 2 WEEKS0 April 06, 2025 1:46pmJuly 2024 2:08pmHypomagnesemia HypomagnesemiaStanding order for Magnesium level below 1.5. administer over 2-4 hrsMagnesium Sulfate In Water 4 gram/100 mL (4 %) ariwiqpnaRsvyxz2IQLWRWVBB 2 GVOMM18Utmv 2024 2:08pmHypomagnesemia HypomagnesemiaStanding order for Magnesium level below 1.5. administer over 2-4 hrsUnknownDoxepin 10 mg/mL npzeupoyvbpSkjwba723ZJMIMdunk at bedtimeOctclark regional medical center 2024 11:00pmComplies with drug therapyApixaban (Eliquis) 5 mg tabletDiscontinued 5MGPOTwice dailyJuly 08, 2025 11:00pmDece2024 9:01amPravastatin 40 mg bxqzjvVuszjd79IIRIOtbbg at bedtimeBeaumont Hospital 2024 11:00pmComplies with drug therapyOmeprazole 40 mg capsule,delayed release(DR/EC)Nwvhrg53QQMLSxryt July 12, 2025 8:51amComplies with drug therapyApixaban (Eliquis) 5 mg vdaexoHmavij9MVIPCwprqYrmmodqc 3rd, 2025 8:59amComplies with drug therapy Relevant Diagnostic Tests and/or Laboratory Data Laboratory Results Test Collection Date/Time Result Date/Time Result Interpretation Reference Range Result Comment Performing Site Magnesium Level June 16, 2025 9:22am June 16, 2025 9:22am 0.6 mg/dL Below lower panic limits 1.8-2.4 RESULTS CALL[facility] TO [facility]Ad[facility] 2024 11:58amNovember 2024 11:58am1.0 mg/dL Below low normal1.8-2.4 Vital Signs Vital Reading Result Reference Range Collection Date/Time Height 69 [in_i] July 12, 2025 8:74xuXmooyw697.68 kgOct2024 8:27amBody Kiqzktwilea51.8 [degF]97.6-99.0[facility]2024 8:27amHeart Rate79 /zds15-690 July 12, 2025 8:27amRespiratory rate22 /zbt68-91Zmbrgxd 2024 8:27am Oxygen saturation by Pulse iuwwnskv15 %95-100Oct[facility] 2024 8:27amBP Fkdzrchj123 mm[Hg]100-140July 12, 2025 8:27amBP Vseakkdpo114 mm[Hg]60-100 July 12, 2025 8:27amBMI (Body Mass Index)41.5 kg/o0Omldynb 2024 8:70gmDlphhi70 [in_i]August 25, 2025 8:41djIkddbr808.77 kgDecehopi health care center 2024 8:46amBody Tjxsuukxakc56.3 [degF]97.6-99.0Decehop[facility] 2024 8:46amHeart Rate92 /wze24-011Vylwzrcd 3rd, 2025 8:46amRespiratory rate20 /yej38-28Sxkgracc 3rd, 2025 8:46amOxygen saturation by Pulse ezizpksx85 %95-1002024 8:46amBP Dhqcqlot460 mm[Hg]100-140[facility]2024 9:10amBP Mvnagnokx62 mm[Hg] 60-100Dece2024 9:10amBMI (Body Mass Index)41.3 kg/m8Qellqiqr 2024 8:46am Advance Directives Advance Directive Response Recorded Date/ Time Advance Directives No March 18 1:19pm Insurance Providers Guarantor Abram Sheehan Address [address] [place] [id number] Info.Home Phone: Coverage Status Update:2025 Payer Group Member ID Coverage Type Subscriber Relationship to Subscriber Effective Date Expiration Date Marah JONAS [id number] Witt Id: [id number] [address] [place] [id number] Home Phone: Self Encounters Encounter Location(s) Arrival/Admit Date Discharge/Departure Date Discharge/Departure Disposition Provider(s) Non-patient / Non-visit -[facility] June 16, 2025 10:22am Tang Haro , MDDeparted Physician/Provider Office Visit-[facility] Family [facility] 2024 9:23amOctober 2024 10:08amDischarged to home care or self care (routine discharge)Pepper Sexton NP-CNon-patient / Non-visit- [facility] 2024 11:58amAkellen Estrellita , MDDeparted Physician/Provider Office Visit-[facility] Family Medicine [facility]2024 8:42amDecember 2024 9:13amDischarged to home care or self care (routine discharge)Pepper Sexton NP-C Recent Diagnosis Onset Date Admit Date Essential hypertension, benign Unknown O ctober 2024 9:23am GERD without esophagitis Unknown July 12, 2025 9:23am Hypomagnesemia Unknown July 12 9:23am Hypothyroidism Unknown July 12 9:23am Nicotine dependence Unknown June 9:23am Colon cancer screening Unknown August 25, 2025 8:42am Essential hypertension, benign Unknown D ecember 2024 8:42am GERD without esophagitis Unknown Decembe r 2024 8:42am Hyperlipidemia Unknown August 25 8:42am Hypomagnesemia Unknown August 25 8:42am Hypothyroidism Unknown August 25 8:42am GURVINDER (obstructive sleep apnea) Unknown 2024 8:42am Prediabetes Unknown August 25 8:42am Assessments Diagnosis Onset Date Resolution Status Admit Date Essential hypertension, benign acuteOct2024 9:23amGERD without esophagitisacuteOctober 2024 9:23amHypomagnesemiaacuteOctober 2024 9:23amHypothyroidismacuteOctober 2024 9:23amNicotine dependenceacuteOctober 2024 9:23amColon cancer screeningacuteDecember 2024 8:42amEssential hypertension, benignacute August 25, 2025 8:42amGERD without esophagitisacuteDecember 2024 8:42am HyperlipidemiaacuteDecember 2024 8:42amHypomagnesemiaacuteDecember 2024 8:42amHypothyroidismacuteDecember 2024 8:42amOSA (obstructive sleep apnea)[facility] 20[facility] 8:42amPrediabetesacuteP[facility] 2024 8:42am Plan of Treatment Author Pepper Sexton [facility]AuthoEn[facility] 2024 9:09amPlease check blood pressure daily and record DASH diet Limit caffeine Take medication as directed Contact office if chest pain, pressures, dizziness, shortness of breath, swelling in the legs Recommend slow position changes if you develop dizziness with position changes current meds: amlodipine, valsartan, nebivolol on levothyroxine check labs yearly, and prn dose changes or changes in sxs Recommendations: freq small meals, nothing to eat or drink at least 2 hours prior to bed, limit caffeine, alcohol, as well as spicy foods. Meds to limit or avoid if possible: NSAIDS Elevate the HOB if possible current meds: ompeprazole continues with nephrology for mgmt of this has trialed off PPI's cannot tolerate without Colon cancer screening options were discussed with patient, as well as why colon cancer screening is indicated. Options are Colonoscopy: direct visualization, every 10 years (unless indicated as more frequently), risks and benefits were discussed Cologuard: every 3 years, risks and benefits were discussed, contraindications were discussed (family hx of colon cancer, colon polyps) Patient has elected to: cologuard on statin therapy check labs yearly and prn dose changes recommend diet low in fat and processed foods You have a diagnosis of GURVINDER it is recommended that you wear your PAP device anytime while in bed sleeping. Not using the PAP device can increase your risk of elevated or uncontrolled blood pressure, atrial fibrillation, heart attack, stroke, and sudden . Compliance with PAP:no never had a machine, does not want to do this again Check blood sugars daily, notify the office if <70 or > 200. Take medications (pills or insulin) as directed. Monitor for s/s of low blood sugar (sweaty, dizziness, nausea, vomiting, or shakiness). Watch for increase thirst, urination, and appetite as these can be signs of high blood sugar. Inspect your feet frequently monitor for open wounds, wear proper fitting shoes as well. Pt should attempt to remain as physical active as chronic conditions allow, as well as trying to follow a diet lower in carbohydrates, and simple sugars. current meds: statin, arb a1c:5.7% 08/25/25 Author Pepper Sexton [facility] DaytonAuthoredOctober 2024 9:46amPlease check blood pressure daily and record DASH diet Limit caffeine Take medication as directed Contact office if chest pain, pressures, dizziness, shortness of breath, swelling in the legs Recommend slow position changes if you develop dizziness with position changes current meds: amlodipine, valsartan, nebivolol used to take aldactone at 50mg daily, this was stopped d/t hospitalization in March 2025 for sepsis, and MARITZA, will check chem 8 and go from there on levothyroxine check labs yearly, and prn dose changes or changes in sxs Recommendations: freq small meals, nothing to eat or drink at least 2 hours prior to bed, limit caffeine, alcohol, as well as spicy foods. Meds to limit or avoid if possible: NSAIDS Elevate the HOB if possible current meds: ompeprazole continues with nephrology for mgmt of this has trialed off PPI's cannot tolerate without The patient has been advised of the risks of continued smoking: stroke, DE, all forms of cancer, lung disease, and . Options for quitting: cold turkey, hypnosis, acupuncture, nicotine replacement meds (gum, lozenges, and patches), as well as oral meds: buproprion or varenicline . At this time pt is encouraged to evaluate their goals for wanting to quit smoking, and reach out to provider when ready to start this process Future Tests Future scheduled test information is unavailable Pending Tests Pending diagnostic test information is unavailable Future Visits Future appointment information is unavailable Future Procedures Procedure Name Ordered Date Scheduled Date AMB Cologuard August 25, 2025 9:07am AMB POC Hgb X6ZGtuuxoel 2024 6:10amBasic Metabolic PanelOctober 2024 9:41am Future Medications Future medication information is unavailable Patient Instructions Patient instructions are unavailable Hospital Discharge Instructions Ambulatory Orders* AMB Cologuard Time Frame: 08/25/25, Location: Determined By Patient * AMB POC Hgb A1C Time Frame: 08/25/25, Location: Determined By Patient
--- OUTSIDE RECORDS SUMMARY | 2025-08-25 09:34 | XMS_ITS | Clinical Summary ---
Author Organization [facility] Healthcare Address [address] [place] [address] Care Team Providers Care Business Dean Name Role Phone Anastacio Hinojosa MD Primary Care Provider [phone] Pepper Sexton NP Unavailable [phone] Allergies No known active allergies Medications [...] TAKE 1 TABLET BY MOUTH TWICE DAILY /23/2025Active budesonide-formoterol (Symbicort) 160-4.5 MCG/ACT inhaler Indications:Chronic bronchitis, [...] lotion Apply 1 Application topically Daily as rrfeic3604/29/2025tive gabapentin (Neurontin) 600 MG tablet Indications:Restless legs syndromeTake 1 tablet (600 mg) by mouth in the morning and 1 tablet (600 mg) before bedtime. 180 tablet 5Active Active Problems ProblemNoted DateDiagnosed CtfiVhiydbefir69/16/2025 Assessment & Plan (04/07/2025 9:01 AM EDT): [...] of lower extremity with varicose ulcer and bhynmn6904/01/2025 Assessment & Plan (04/07/2025 5:57 AM EDT): Reviewed vascular notes Chronic deep vein thrombosis (DVT) of popliteal vein of left lower extremity 04/01/2025Electrolyte yjkpujecuda91/25/2025ellulitis of left lower extremity 02/17/2025 Assessment & [...] nephrology Morbid (severe) obesity due to excess ipzrlozm98/15/2025 Assessment & Plan (05/06/2025 6:12 AM EDT): [...] Recommend weight watchers Gastro-esophageal reflux disease without stufeowsabu78/15/2025 Assessment & Plan (05/06/2025 6:12 AM EDT): [...] use Acute gastric ulcer without hemorrhage or ihgfzgcrcvd59/17/2024 Overview (07/09/2024): EGD 07/09/24 Nlmqebzfk00/14/2024Needs flu shot07/06/2024 Assessment & Plan (07/06/2024 10:30 AM EDT): declines COPD with acute ltuclkannowb75/12/2024 Assessment & Plan (05/06/2025 8:57 AM EDT): Is currently not taking blood thinner Will add medrol dose pack and atb He was alternating between albuterol and symbicort I did explain how each works and symbicort is twice a day EVERY day and albuterol prn Fu if not better Assessment & Plan (05/04/2024 11:10 AM EDT): Add steroids and atb Fu if not better Pre-ukaejzri15/18/2024 Assessment & Plan (10/07/2024 9:17 AM EST): Will check A1c test: recent lab had elevated glucose A1c 5.6%, 10/07/24 Carpal tunnel syndrome on both sides12/29/20236918Qscjstltjhv69/07/2024 Overview (02/02/2024): HST not available at time [...] of both hands11/26/2023ervical radiculopathy 11/26/2023ough in adult11/26/2023Venous pzjwvz3411/26/2023Left leg swelling 11/26/2023 Assessment & Plan (03/08/2025 8:56 AM EDT): As per cellulitis entry Degenerative disc disease, gotooqla16/05/2024 Overview (02/02/2024): Patient with chronic neck pain [...] pain. 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 Atopic vqihjvmjim01/05/4151Nzkbgeucg21/05/2024Orthopedic hardware present 11/26/2023Marijuana use11/26/2023 Assessment & Plan (01/06/2025 6:14 AM EDT): Gummies and smoking Assessment & Plan (10/07/2024 9:40 AM EST): Gummies and smoking Screening for prostate lxkcit6011/26/2023 Overview (03/17/2025): PSA: 03/16 1.26 03/17/25 1.49 Assessment & Plan (01/06/2025 6:14 AM EDT): Check labs in 03/17 Abnormal stress test08/19/20234473Cjtmzymws44/27/8235Dvutklnjvyca75/27/2023Essential hypertension, boorav7708/19/2023 Assessment & Plan (05/06/2025 8:57 AM EDT): [...] dose Fu in 3 months, check labs Fsmqoocutuojzz66/27/2023 Assessment & Plan (01/06/2025 6:15 AM EDT): [...] EST): Cont meds, check labs Restless legs08/19/2023Nicotine xnoapkjdkt61/27/2023 Assessment & Plan (05/06/2025 6:13 AM EDT): [...] toprovider when ready to start this process Kuwjarmujxfwo66/27/0190Dzbtmuqqiqzizb27/27/2023 Assessment & Plan (02/17/2025 7:26 PM EDT): [...] No acute muscle/neuro findings on today's exam Omwgqecbnxdkqh19/26/2023 Assessment & Plan (01/06/2025 6:13 AM EDT): On statin therapy Labs yearly and prn dose changes Assessment & Plan (10/07/2024 5:44 AM EST): On statin therapy Labs yearly and prn dose changes Assessment & Plan (02/26/2024 11:48 AM EDT): Attempt to cut down on portion sizes, carbs, no meds at this time Pulmonary lhbngjeedvhm13/10/2022 Assessment & Plan (10/07/2024 5:42 AM EST): Per ECHO 02/12 Does not use PAP Current meds: aldactone, amlodipine, valsartan and bystolic Assessment & Plan (05/04/2024 12:52 PM EDT): Per ECHO 02/12 Does not use PAP Assessment & Plan (11/26/2023 10:06 AM EST): As per ECHO findings Stable at this time LV dzcopjbcxsy60/18/2022 Assessment & Plan (05/04/2024 12:50 PM EDT): As per cardiology Resolved Problems ProblemNoted DateDiagnosed DateResolved DateNeeds flu shot Pre-operative qvgusmmon81/ Assessment & Plan (05/26/2024 7:27 AM EDT): Hx of HTN: well controlled Low magnesium: still taking TID, trying to avoid use of PPI, but difficult GURVINDER: non compliant with PAP use ECHO 11/15 EKG: reviewed CR 1.60 w Gfr 50 Magnesium: 1.4 on 04/20/24. Cleared for surgery from cardiac/medical standpoint Simple chronic blbjbmvfxu81 Assessment & Plan (05/04/2024 11:10 AM EDT): [...] digit is numb at times and his public health program manager is weak as well likely consistent with ulnar nerve process. 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 Carpal tunnel usclrpta10 Overview (02/02/2024): Patient has ongoing numbness and tingling to bilateral hands, sometimes worse on the left. He has worn wrist splints in the past but no longer uses these. He has not trialed injections. EMG of the BUE 12/2019 revealed bilateral median neuropathy. He is noting some increase pain to his hands with even performing hand washing. He is interested in surgery. Qxgpzmo14GERD (gastroesophageal reflux disease)08/19/2023 10/07/2024 Assessment & Plan (07/06/2024 10:28 AM EDT): Has upcoming scope with GI, has been off his PPI/B9cfcqmgzc for up coming EGD etc Continue with GI Assessment & Plan (05/04/2024 12:01 PM EDT): Did well on fci PPI, however severe hypomagnesiumemia Would like to [...] need to stop if magnesium is low Family History Medical HistoryRelationNameCommentsHypertensionFatherRelationNameStatusComments FatherDeceasedMotherAlive Social History [...] times a week11/25/2023How often do you attend restorationism or confucianism services?Never11/25/2023o you belong to any clubs or organizations such as restorationism groups, unions, fraternal or athletic groups, or school groups?Yes11/25/2023How often do you attend meetings of the clubs or organizations you belong to?Never11/25/2023re you , , , , never , or living with a partner?Drneddl9311/25/2023UDIT-C AnswerDate RecordedQ1: How often do you have a drink containing alcohol?4 or more times a week11/25/2023Q2: How many drinks containing alcohol do you have on a typical day when you are drinking?5 or Q3: How often do you have six or more drinks on one occasion?Czasca3611/25/2023Overall Financial Resource Strain (CARDIA)AnswerDate RecordedHow hard is it for you to pay for the very basics like food, housing, medical care, and heating?Somewhat hard11/25/2023 PHQ-2AnswerDate RecordedPatient Health Questionnaire-2 Ognfg350Finmountain west medical center [place] of Occupational [facility] - Occupational Stress QuestionnaireAnswerDate RecordedDo you feel stress - tense, restless, nervous, or anxious, or unable to sleep at night because yourmind is troubled all the time - these days?To some vmadqs1811/25/2023Exercise Vital SignAnswerDate RecordedOn average, how many days [...] InformationValueDate RecordedSex Assigned at BirthNot on fileLegal JzwWios4212/05/2022 11:33 PM EDT Gender IdentityNot on fileSexual OrientationNot on file Last Filed Vital Signs Vital SignReadingTime TakenCommentsBlood Soigojyo231/9408 8:25 AM EDT Idifx739705/06/2025 8:25 AM SETIfswwutxsrd58.6 ??C (97.8 ??F)05/06/2025 8:25 AM EDTRespiratory Faui762505/06/2025 8:25 AM EDTOxygen Lomwiejycn86%05/06/2025 8:25 AM EDTInhaled Oxygen Concentration--Solwuw124 kg (268 lb 9.6 oz)05/06/2025 8:25 AM VWYTzttev354.3 cm (5' 9 )01/06/2025 9:06 AM EDTBody Mass Index39.67001/06/2025 9:06 AM EDT Plan of Treatment Not on file Insurance Care Teams Team MemberRelationshipSpecialtyStart DateEnd Anastacio Hinojosa MD PCP - GeneralFamily Medicine11/26/23 Pepper Sexton NP Nurse PractitionerFamily Medicine11/26/23
--- OUTSIDE RECORDS SUMMARY | 2025-08-25 09:34 | XMS_ITS | Clinical Summary ---
Author Organization [employer] tem Address [id number] [address] [place] [address] Care Team Providers Care Machine Woodworking Sander Name Role Phone Carlie Pepper Wheeler APRN-THERMAL TECHNICIAN Primary Care Provider Allergies No known [...] topically as needed for itching. 120 mL 5Active apixaban (ELIQUIS) 5 mg tablet Take 1 tablet (5 mg total) by mouth in the morning and 1 tablet (5 mg total) before bedtime.Active amLODIPine (NORVASC) 10 mg tablet Take 1 tablet (10 mg total) by mouth in the evening.Active MAGNESIUM GLYCINATE-MAG OXIDE ORAL Take 100 mg by mouth in the morning and at bedtime.Active Active Problems ProblemNoted DateDiagnosed DateChronic deep vein [...] of lower extremity with varicose ulcer and vekrgl6504/01/2025 Assessment & Plan (07/22/2025 10:33 AM EDT): Continue compression therapy and calamine cream. Follow up in 3 months. Assessment & Plan (04/29/2025 8:56 AM EDT): Left SSV Ablation and sclerotherapy. Compression stockings. Assessment & Plan (04/01/2025 10:43 AM EDT): Compression therapy leg elevation exercise. Calamine cream. We will get venous reflux ultrasound. 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 ([facility]) (Primary Dx)07/22/20251012Qbslot41/22/2025 12:43 PM EDT - 07/14/2025 11:59 PM EDT Hospital Encounter [facility] - Vascular [address] [place] [address] Robert Kumar MD H/O prior ablation treatment; 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 ([facility]) Discharge Disposition: Home07/14/20253249Vszydq57/16/2025 2:37 PM EDTAnesthesia Event [facility] - Surgery [address] [facility] [place] [address] German Yip, DO 07/08/2025 2:00 PM EDT - 07/08/2025 3:00 PM EDTSurgery [facility] - Surgery [address] [place] [address] Robert Kumar MD ABLATION VENOUS NSVSODDKCLSXSQ-YBY-IHWRFYVYC07/16/2025 11:49 AM EDT - 07/08/2025 4:01 PM EDTHospital Encounter [facility] - Surgery [address] [place] [address] Robert Kumar MD Preop examination (Primary Dx); Hypomagnesemia Discharge Disposition: Home07/08/20259310Adfltl93/13/2025 9:55 AM EDT - 07/05/2025 11:59 PM EDTHospital Encounter [facility] - Cardiovascular [address] [place] [address] Kd Moffett MD Preop examination; Hypertension, unspecified type Discharge Disposition: Home07/05/2025 9:45 AM EDTProcedure visit [facility] - Pre Admit [address] [place] [address] Preop examination (Primary Dx); Hypertension, unspecified type; Sxkehptjmjhhte20/13/7269Afmtiz20/10/2025Orders Only [facility] [address] [place] [address] Lissy Berger H/O prior ablation treatment (Primary Dx); 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 ([facility])from Last 3 Months Family History Medical HistoryRelationNameCommentsNo Known ProblemsFatherArthritisMother RelationNameStatusCommentsFatherDeceasedMotherAlive Social History Tobacco UseTypesPacks/DayYears UsedDateSmoking Tobacco: NeverSmokeless Tobacco: Never Tobacco Cessation:Counseling Given: Not Answered Alcohol UseStandard Drinks/WeekCommentsYes4 (1 standard drink = 0.6 oz pure alcohol)social/recreationalChildcareAnswerDate RecordedChildcareUnknown 03/04/2019EmploymentAnswerDate XrnzfntyKknoorqnrwHceoeto47/12/2019Sex and Gender InformationValueDate RecordedSex Assigned at BirthNot on fileLegal SexMale 04/28/2015 11:51 AM EDTGender IdentityNot on fileSexual OrientationNot on file Last Filed Vital Signs Vital SignReadingTime TakenCommentsBlood Dyookpsc185/0472207/22/2025 10:18 AM EDT Bmnes566507/08/2025 3:44 PM OFEOjpmgggdjfa89.2 ??C (97.1 ??F)07/08/2025 3:29 PM EDTRespiratory Leeg7658 3:29 PM EDTOxygen Hbufayerrn57%07/08/2025 3:44 PM EDTInhaled Oxygen Concentration--Nccvdh483.9 kg (282 lb)07/22/2025 10:18 AM CYVFlzxdz826.3 cm (5' 9 )07/22/2025 10:18 AM EDTBody Mass Index41.6407/22/2025 10:18 AM EDT Plan of Treatment DateTypeDepartmentCare Team (Latest Contact Info)Bewrijhxvhu07/05/2026 10:00 AM ESTOffice Visit [facility] [address] [place] [phone] Vanessa Bedolla, DIRECTOR INTERNAL COMMUNICATIONS-THERMAL TECHNICIAN [address] [place], [place] [phone] Health MaintenanceDue DateLast DoneCommentsDepression Hbhjqejaw66/17/1980Adult BMI Follow Up Plan1985DTaP,Tdap and Td Vaccines (1 - Tdap)1986Zoster (Shingles) Vaccine (1 of 2)2017Influenza Qpxogyp2005/24/2025dult BMI Jxywmkupk47Tobacco Azlpeekan16 Medical Devices Not on file Procedures Procedure NamePriorityDate/TimeAssociated DiagnosisCommentsVASC VENOUS DUPLEX LOWER THBDLjrewvd61/22/2025 1:16 PM EDT H/O prior ablation treatment 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 (CMS-HCC) SCLEROTHERAPY LOWER RAUARSZIM56/16/2025 2:37 PM EDT 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 (CMS-HCC) ABLATION VENOUS GNYBNQVSFPEURE83/16/2025 2:37 PM EDT 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 (CMS-HCC) CDFGISSIJVGHD68/16/2025 1:59 PM EDT ECG 12-OGXOCptvhhv33/13/2025 10:20 AM EDT Preop examination Hypertension, unspecified type ZTWABFLZGRtveeew91/13/2025 10:15 AM EDT Preop examination Hypertension, unspecified type Hypomagnesemia TTIVVopcizp06/13/2025 10:15 AM EDT 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 Authorizing ProviderResult TypeResult StatusMohelen Kumar [facility] [place]ASCULAR ORDERABLESFinal Result * (ABNORMAL) Magnesium (07/08/2025 1:59 PM EDT) Only the most recent of2 resultswithin the time period is included. ComponentValueRef RangeTest MethodAnalysis TimePerformed AtPathologist Signature MAGNESIUM1.7(L)1.8 - 2.6 mg/dL07/08/2025 2:12 PM EDTPFirelands Regional Medical Center (Source)Anatomical Location / LateralityCollection Method / VolumeCollection TimeReceived TimeBloodVenous blood / UnknownVenipuncture / Ugxrvgo7907/08/2025 1:59 PM EDT1 1:59 PM EDT Narrative Authorizing ProviderResult TypeResult StatusMohelen WIN BLOOD ORDERABLESFinal ResultPerforming OrganizationAddressCity/State/ZIP CodePhone Number [facility] [address] [place] [address], * ECG 12 lead (07/05/2025 10:20 AM EDT)Specimen (Source)Anatomical Location / LateralityCollection Method / VolumeCollection TimeReceived Time07/05/2025 10:20 AM EDT Narrative TRACEMASTERVUE - 07/05/2025 11:57 AM EDT Authorizing ProviderResult TypeResult StatusDamichael Moffett MDECG ORDERABLES Final ResultPerforming OrganizationAddressCity/State/ZIP CodePhone Number TRACEMASTERVUE * APTT (07/05/2025 10:15 AM EDT)ComponentValueRef RangeTest MethodAnalysis Time Performed AtPathologist SypvliqfsJHIE7132 - 37 sec07/05/2025 11:07 AM EDT [facility] (Source)Anatomical Location / LateralityCollection Method / VolumeCollection TimeReceived TimeBloodVenous blood / UnknownVenipuncture / Ktzdivm5607/05/2025 10:15 AM EDT1 10:18 AM EDT Narrative Authorizing ProviderResult TypeResult StatusMohamed Sonia José WIN BLOOD ORDERABLESFinal ResultPerforming OrganizationAddressCity/State/ZIP CodePhone Number [address] [place] [address], [place] * Protime-INR (07/05/2025 10:15 AM EDT)ComponentValueRef RangeTest Method Analysis TimePerformed AtPathologist SazlxovwrDIMTKIW29.29.8 - 13.2 sec 07/05/2025 11:07 AM EDTPSAMARITAN HOSPITALINR1.00.9 - 1.2 07/05/2025 11:07 AM [facility]ITAL[facility]imen (Source) Anatomical Location / LateralityCollection Method / VolumeCollection Time Received TimeBloodVenous blood / UnknownVenipuncture / Djmdkhq0407/05/2025 10:15 AM EDT1 10:18 AM EDT Narrative Authorizing ProviderResult TypeResult StatusMohamed Sonia José WIN BLOOD ORDERABLESFinal ResultPerforming OrganizationAddressCity/State/ZIP CodePhone Number [address] [place] [address], [place] * CBC (07/05/2025 10:15 AM EDT)ComponentValueRef RangeTest MethodAnalysis Time Performed AtPathologist SignatureWBC8.44 - 11 x10E9/L1 1:25 PM EDT [facility] LABORATORYRBC Count4.614.1 - 5.7 X10E12/L1 1:25 PM [facility] QZWXBIUOISLzrvmfjoon51.813 - 17 g/dL 07/05/2025 1:25 PM [facility] QVBMBLYNKTVdkebfmqsq32.239 - 50 %07/05/2025 1:25 PM [facility] HKKNDRQPITKXY9729 - 100 fL 07/05/2025 1:25 PM [facility] QHAFYUBJTKSKK53.927 - 34 pg 07/05/2025 1:25 PM [facility] DSLYHPRKOYWIYI31.832 - 36 g/dL 07/05/2025 1:25 PM [facility] VIPOBSRCRDXAB08.511.5 - 15 % 07/05/2025 1:25 PM [facility] LABORATORYPlatelet Qhjwo782673 - 450 X10E9/L1 1:25 PM [facility] LABORATORYMPV8.67 - 12 fL07/05/2025 1:25 PM [facility] LABORATORYSpecimen (Source)Anatomical Location / LateralityCollection Method / VolumeCollection TimeReceived TimeBloodVenous blood / UnknownVenipuncture / Innlinx4907/05/2025 10:15 AM EDT1 10:18 AM EDT Narrative Authorizing ProviderResult TypeResult StatusMohamed F José CARTAGENALAB BLOOD ORDERABLESFinal ResultPerforming OrganizationAddressCity/State/ZIP CodePhone Number [facility] [address] [place] [address], * (ABNORMAL) Basic Metabolic Panel (07/05/2025 10:15 AM EDT)ComponentValueRef RangeTest MethodAnalysis TimePerformed AtPathologist VpitixcuaJIBXAV518779 - 146 mmol/L1 1:50 PM [facility] LABORATORYPOTASSIUM 3.83.5 - 5.0 mmol/L1 1:50 PM [facility] LXUHPESJ55790 - 109 mmol/L1 1:50 PM [facility] LABORATORYCARBON ADLNWVG6805 - 32 mmol/L1 1:50 PM [facility] LABORATORYANION ICC084 - 15 mmol/L1 1:50 PM [facility] LABORATORYBLOOD UREA SHCFNBNN125 - 23 mg/dL07/05/2025 1:50 PM [facility] LABORATORYCREATININE1.130.60 - 1.30 mg/dL 07/05/2025 1:50 PM [facility] LABORATORYComment:METHOD TRACEABLE TO IDMS GQEJGPLWEDPMHVG283(H)65 - 99 mg/dL07/05/2025 1:50 PM EDT [facility] LABORATORYCALCIUM8.78.5 - 10.5 mg/dL07/05/2025 1:50 PM [facility]ORYEGFR Non-Race Sjktfdezy30>=60 ml/min/1.73sq.m1 1:50 PM [facility] Comment: Reported eGFR is based on the CKD-EPI 2020 equation that does not use a race coefficient. Specimen (Source)Anatomical Location / LateralityCollection Method / Volume Collection TimeReceived TimeBloodVenous blood / UnknownVenipuncture / Unknown 07/05/2025 10:15 AM EDT1 10:18 AM EDT Narrative Authorizing ProviderResult TypeResult StatusMohamed Sonia WIN BLOOD ORDERABLESFinal ResultPerforming OrganizationAddressCity/State/ZIP CodePhone Number [facility] [address] [place] [address], from Last 3 Months Insurance Advance Directives * Full Code (Latest Code Status on File) Date ActivatedDate InactivatedComments12/16/2021 11:22 AM12/16/2021 5:00 PM Care Teams Team MemberRelationshipSpecialtyStart DateEnd Date Pepper Sexton, DIRECTOR INTERNAL COMMUNICATIONS-THERMAL TECHNICIAN PCP - GeneralNurse Practitioner8/18/22
--- OUTSIDE RECORDS SUMMARY | 2025-08-25 09:34 | XMS_ITS | Clinical Summary ---
Author Organization [facility] Address [address] [place] [address] Care Team Providers Care Bacteriologist Industrial Name Role Phone Delmer Bryan MD Primary Care Provider Social History Tobacco UseTypesPacks/DayYears UsedDateSmoking Tobacco: Never AssessedUT Safety & EnvironmentAnswerDate RecordedFear of Current or Ex-PartnerNot on file 11/14/2023Emotionally AbusedNot on file4Physically AbusedNot on file 11/14/2023Sexually AbusedNot on file4Physically or Sexually AbusedNot on file11/14/2023Sex and Gender InformationValueDate RecordedSex Assigned at BirthNot on fileLegal PixWfiv1503/21/2022 10:47 PM EDTGender IdentityNot on file Sexual OrientationNot on file Last Filed Vital Signs Vital SignReadingTime TakenCommentsBlood Pressure--Pulse--Temperature-- Respiratory Rate--Oxygen Saturation--Inhaled Oxygen Concentration--Qrumso975 kg (246 lb)01/11/2022 8:45 AM CARHwsywy312.3 cm (5' 9 )01/11/2022 8:45 AM EDTBody Mass Index36.33001/11/2022 8:45 AM EDT Plan of Treatment Health MaintenanceDue DateLast DoneCommentsCT Smtfsxibqpfn06/17/1968Colonoscopy 1967Colorectal Cancer Kihdjuyzg27/17/1968FIT-DNA1967FIT1967 FOBT1967 5162Tchihdalgjqql30/17/1968Depression Jaicetavn24/17/1980Hepatitis B Vaccines (1 of 3 - 19+ 3-dose series)1986Adult Hcjkhqn5911/09/1989Zoster Vaccines (1 of 2)2017COVID-19 Vaccine (1 - [...] MemberRelationshipSpecialtyStart DateEnd Date Delmer Bryan MD [address] [place] [address] PCP - [facility]05/14/22
--- OUTSIDE RECORDS SUMMARY | 2025-08-25 09:34 | XMS_ITS | Clinical Summary ---
Author Organization [facility] Address [address] [place] [address], [address] [place] [address] Care Team Providers Care Education Spec Name Role Phone Unavailable Primary Care Provider Unavailabl e Social History Tobacco UseTypesPacks/DayYears UsedDateSmoking Tobacco: Never AssessedSex and Gender InformationValueDate RecordedSex Assigned at BirthNot on fileLegal Sex Male11/02/2012 11:32 AM ESTGender IdentityNot on fileSexual OrientationNot on file Plan of Treatment Not on file
--- OUTSIDE RECORDS SUMMARY | 2025-08-25 09:35 | XMS_ITS | CCD ---
Author Organization [facility] Care Team Providers Care [place] Operator Name Role Phone AICHHOLZ, MDS RN PEPPER Primary Care Unavailable AICHHOLZ, MDS RN PEPPER Consulting Unavailable AICHHOLZ, MDS RN PEPPER Attending Unavailable AICHHOLZ, MDS RN PEPPER Admitting Unavailable AICHHOLZ, MDS RN PEPPER Consulting Unavailable AICHHOLZ, MDS RN PEPPER Attending Unavailable AICHHOLZ, MDS RN PEPPER Admitting Unavailable AICHHOLZ, MDS RN PEPPER Primary Care Unavailable AICHHOLZ, MDS RN PEPPER Primary Care Unavailable DR CRIS KLINE V Consulting Unavailable AICHHOLZ, MDS RN PEPPER Attending Unavailable AICHHOLZ, MDS RN PEPPER Admitting Unavailable AICHHOLZ, MDS RN PEPPER Consulting Unavailable AICHHOLZ, MDS RN PEPPER Primary Care Unavailable AICHHOLZ, MDS RN PEPPER Consulting Unavailable AICHHOLZ, MDS RN PEPPER Attending Unavailable AICHHOLZ, MDS RN PEPPER Admitting Unavailable AICHHOLZ, MDS RN PEPPER Primary Care Unavailable AICHHOLZ, MDS RN PEPPER Consulting Unavailable AICHHOLZ, MDS RN PEPPER Attending Unavailable AICHHOLZ, MDS RN PEPPER Admitting Unavailable Anastacio Hinojosa MD Primary Care Provider [facility] REP, Pepper Unavailable [facility] REP, Pepper Unavailable Pepper Sexton Primary Care Provider MD [place] Imrosalie Attending Provider [phone] Pepper Sexton Primary Care Provider [place] CARTAGENA, James Attending Provider [phone] Pepper Sexton Primary Care Unavailable Asaad, Imad Attending Unavailable Asaad, Imad Admitting Unavailable Asaad, Imad Admitting Unavailable Pepper Sexton Primary Care Unavailable Asaad, Imad Attending Unavailable [facility] JUDGE-MDS RN, Pepper J Primary Care Provider Aicblanca Pepper J Primary Care Provider James Elaine MD Attending Provider Aichholz [facility] JUDGE-MDS RN, Pepper J Primary Care Provider AicLary riosa J Primary Care Provider [phone] Tang Hamilton MD Attending Provider [phone] AICHHOLZ, PEPPER Attending Unavailable AICHHOLZ, PEPPER Attending Unavailable AICHHOLZ, PEPPER Attending Unavailable AICHHOLZ, PEPPER Attending Unavailable AICHHOLZ, PEPPER Attending Unavailable BLANK MCFARLANE Attending Unavailable RUPERT BO Attending Unavailable AICHHOLZ, PEPPER Attending Unavailable AICHHOLZ, PEPPER Attending Unavailable [facility] REP-C, Pepper J Primary Care Provider [phone] Tang Hamilton MD Attending Provider [facility] REP-C, Pepper Wheeler Attending Provider ROBERT KUMAR F [...] oral tablet (1 source)Opioid AgonistStart: 05-26-2024 End: 53-28-4377xsxm 1 tablet by mouth every six hours for painHYDROcodone- acetaminophen (Pal[place]) 5-325 MG tablet Indications: Post-operative pain Take 1 tablet bymouth every 6 (six) hours if needed for severe pain for up to 3 days 12 tablet 05/26/2024 05/29/2024 [id number] 200 actuat albuterol 0.09 mg/actuat metered dose inhaler (20 sources)beta2-Adrenergic AgonistStart: 56-26-5820dmpo 1 puff(s) by inhalation every six hours as needed for wheezingAlbuterol Sulfate 90 mcg/actuation HFA aerosol inhaler Active 2 PUFF INHALATION Every 6 hours as nee ded for shortness of breath or wheezing March 19, 2024 12:00am Complies with drug therapyStart: 66-81-8988bmmm 2 puff(s) by inhalation every six hours for wheezingalbuterol HFA (Ventolin HFA) 90 mcg/act inhaler Indications: Chronic Obstructive Pulmonary Disease Inhale 2 puffs every 6 (six) hours if needed for wheezing or shortness of breath 18 g 1 03/06/2024 ActiveStart: 33-17-9591imst 2 puff(s) by inhalation every six hours as needed for wheezingalbuterol (PROVENTIL HFA;VENTOLIN HFA) 90 mcg/actuation inhaler Indications: Mild persistent asthma without complication Inhale 2 puffs every 6 (six) hours as needed for wheezing. 18 g 11 08/02/2022 ActiveamLODIPine 10 mg oral tablet (20 sources)Dihydropyridine Calcium Channel BlockerStart: 03-18-2024 End: 09-68-1350ojzu 1 tablet by mouth once dailyAmlodipine 10 mg tablet Active 10 MG PO Daily March 19, 2024 12:00am Complies with drug therapyamoxicillin 875 mg / clavulanate 125 mg oral tablet (3 sources)Penicillin-class AntibacterialStart: 05-06-2025 End: 46-45-0102rdaq 1 tablet by mouth in the morningamoxicillin-clavulanate (Augmentin) 875-125 MG tablet Indications: COPD with acute exacerbation (HCC) Take 1 tablet (875 mg) by mouth in the morning and 1 tablet (875 mg) before bedtime. Do all this for 10 days. 20 tablet 05/06/2025 05/16/2025 Activeapixaban 5 mg oral tablet (20 sources)Factor Xa InhibitorStart: 71-28-9947zynp 1 tablet by mouth twice dailyApixaban (Eliquis) 5 mg tablet Active 5 MG PO Twice daily July 09, 2025 12:00am Complies with drug therapyStart: 04-82-6445mdlp 2 tablets by mouth twice daily, then take 1 tablet by mouth twice dailyEliquis 5 MG tablet TAKE 2 TABLETS BY MOUTH TWICE DAILY FOR 4 DAYS and then TAKE 1 TABLET BY MOUTH TWICE DAILY thereafter 02/12/2025 [id number] actuat budesonide 0.16 mg/actuat / formoterol fumarate 0.0045 mg/actuat metered dose inhaler (20 sources)Corticosteroid, beta2-Adrenergic AgonistStart: 87-72-9907pcps 1 puff(s) by inhalation twice daily as needed for wheezingBudesonide-Formoterol 160-4.5 mcg/actuation HFA aerosol inhaler Active 2 PUFF INHALATION Twice daily as needed for shortness of breath or wheezing June 23, 2024 12:00am Complies with drug therapyStart: 05-04-2024 End: 97-58-3987kpgq 2 puff(s) by inhalation in the morningbudesonide-formoterol (Symbicort) 160-4.5 MCG/ACT inhaler Indications: Chronic bronchitis, unspecified chronic bronchitis type (HCC) Inhale 2 puffs in the morning and 2 puffs before bedtime. Rinse mouth with water after use to reduce aftertaste and incidence of candidiasis. Do not swallow. 10.2 g ActiveStart: 03-19-2024 End: 06-75-7077cnxe 1 puff(s) by inhalation twice daily as neededBudesonide- Formoterol (Symbicort) 80-4.5 mcg/actuation HFA aerosol inhaler Discontinued 2 PUFF INHALATION Twice daily as needed March 19, 2024 9:38am June 23, 2024 10:39amStart: 53-50-1131faeg 2 puff(s) by inhalation in the morningbudesonide- formoteroL (SYMBICORT) 80-4.5 mcg/actuation inhaler Indications: Mild persistent asthma without complication Inhale 2 puffs in the morning and 2 puffs before bedtime. 10.2 g 12 08/02/2022 Activecalamine 80 mg/ml / zinc oxide 80 mg/ml topical lotion (8 sources)Start: 83-12-1968rtauhjju-zinc oxide 8-8 % lotion Apply 1 Application topically as needed for itching. 120 mL 04/29/2025 ActiveStart: 04-29-2025 Calamine-Zinc Oxide 8-8 % lotion Apply 1 Application topically Daily as needed 04/29/2025 Activecefdinir 300 mg oral capsule (13 sources)Cephalosporin AntibacterialStart: 02-12-2025 End: 53-77-0950xaojlmav (Omnicef) 300 MG capsule Take 600 mg by mouth Daily 02/12/2025 04/07/2025 Discontinued (Therapy completed)diclofenac sodium 0.01 mg/mg topical gel (4 sources)Nonsteroidal Anti-inflammatory DrugStart: 04-07-2025 End: 77-01-1506vkghwutdbb sodium (Voltaren Arthritis Pain) 1 % gel Indications: Acute gout of left hand, unspecified cause Apply 2 g topically in the morning and 2 g in the evening and 2 g before bedtime. Do all this for 10 days. 50 g 04/07/2025 04/17/2025 Activedoxepin hydrochloride 10 mg/ml oral solution (20 sources)Tricyclic AntidepressantStart: 46-79-4315lcsz 100 mg by mouth once daily at bedtimeDoxepin 10 mg/mL concentrate Active 100 MG PO Daily at bedtime July 09, 2025 12:00am Complies with drug therapyStart: 09-15-2024 End: 73-70-6681odtj 10 mg by mouth at bedtimedoxepin (SINEquan) 10 MG/ML solution Indications: Fibromyalgia Take 10 mL (100 mg) by mouth at bedtime 900 mL 1 04/07/2025 07/06/2025 ActiveStart: 03-19-2024 End: 42-46-6054wuyc 1 capsule by mouth once daily at bedtimeDoxepin 100 mg capsule Discontinued 100 MG PO Daily at bedtime March 19, 2024 12:00am July 09, 2025 7:20amStart: 03-11-2024 End: 65-83-8201obqa 10 mg by mouth at bedtimedoxepin (SINEquan) 10 MG/ML solution Indications: Fibromyalgia Take 10 mL (100 mg) by mouth at bedtime 900 mL 1 03/11/2024 Activetake 1 capsule by mouth once dailydoxepin (SINEquan) 10 mg capsule Take 1 capsule (10 mg total) by mouth nightly. Activedoxycycline hyclate 100 mg oral tablet (4 sources)Tetracycline-class DrugStart: 04-07-2025 End: 97-80-6417jssv 1 tablet by mouth in the morningdoxycycline [...] 600 mg oral tablet (20 sources)Anti-epileptic AgentStart: 13-40-8661zyxw 1 tablet by mouth three times dailyGabapentin 600 mg tablet Active 600 MG PO Three times daily July 09, 2025 7:21am Complies withdrug therapyStart: 03-19-2024 End: 37-12-8206qejl 1 tablet by mouth twice dailyGabapentin 600 [...] oral tablet (20 sources)Nonsteroidal Anti-inflammatory Drug End: 98-13-1517igcr 1 tablet by mouth every six hours as needed for pain ibuprofen (ADVIL,MOTRIN) 200 mg tablet Take 1 tablet (200 mg total) by mouth every 6 (six) hours asneeded for pain. ActivelevoFLOXacin 750 mg oral tablet (13 sources)Quinolone AntimicrobialStart: 02-12-2025 End: 51-93-7579wfdp 1 tablet by mouth once dailylevoFLOXacin (Levaquin) 750 MG tablet TAKE 1 TABLET BY MOUTH ONCE DAILY x14 02/12/2025 04/07/2025 Discontinued (Therapy completed)levothyroxine sodium 0.112 mg oral tablet (20 sources)l-ThyroxineStart: 10-08-2024 End: 23-73-4027dxya 1 tablet by mouth once dailyLevothyroxine 112 mcg tablet Active 112 MCG PO Daily 90 June 10, 2025 12:00am Hypothyroidism Hypothyroidism, unspecified Complies with drug therapyStart: 03-18-2024 End: 06-58-6651obdo 1 tablet by mouth once dailyLevothyroxine 100 mcg tablet Discontinued 100 MCG PO Daily March 19, 2024 12:00am June 10, 2025 9:26pmtake 4 tablets by mouth in the morninglevothyroxine (SYNTHROID, LEVOTHROID) 25 MCG tablet Take 4 tablets (100 mcg total) by mouth in the m orning. Activemagnesium glycinate 100 mg oral tablet (20 sources)Start: 11-71-0582bnkk 1 capsule by mouth in the morning, then take 1 capsule by mouth in the evening, then take 1 capsule by mouth at bedtime Magnesium Glycinate 100 MG capsule Take 100 mg by mouth in the morning and 100 mg in the evening and 100 mg before bedtime. 12/07/2024 ActiveMagnesium Glycinate 100 mg magnesium capsule (7 sources)Start: 88-09-1872qkeg 1 capsule by mouth three times dailyMagnesium Glycinate 100 mg magnesium capsule Active 100 MG PO Three times daily 270 90 February 11:40am Complies with drug therapyStart: 35-11-3351tfgs 1 capsule by mouth three times dailyMagnesium Glycinate 100 mg magnesium capsule Active 100 MG PO Three times daily 270 90 March 05, 2025 11:40am Complies with drug therapyStart: 03-04-2025 End: 34-34-3562vpax 1 capsule by mouth three times dailyMagnesium Glycinate 100 mg magnesium capsule Discontinued 100 MG PO Three times daily 270 90 1 2024 3:50pm March 05, 2025 11:40amStart: 03-04-2025 End: 47-69-5788hgqe 1 capsule by mouth three times dailyMagnesium Glycinate 100 mg magnesium capsule Discontinued 100 MG PO Three times daily 270 90 March 04, 2025 3:50pm March 05, 2025 11:40amStart: 12-02-2024 End: 86-42-4354gufc 1 capsule by mouth three times dailyMagnesium Glycinate 100 mg magnesium capsule Discontinued 100 MG PO Three times daily 90 December 02, 2024 12:00am March 04, 2025 3:51pmStart: 12-02-2024 End: 81-80-5922tevz 1 capsule by mouth three times dailyMagnesium Glycinate 100 mg magnesium capsule Discontinued 100 MG PO Three times daily December 02, 2024 12:00am March 04, 2025 3:51pmStart: 43-23-0245xvwo 1 capsule by mouth three times dailyMagnesium Glycinate 100 mg magnesium capsule Active 100 MG PO Three times daily December 022:00amMAGNESIUM GLYCINATE-MAG OXIDE ORAL (1 source)take 100 mg by mouth at bedtimeMAGNESIUM GLYCINATE-MAG OXIDE ORAL Take 100 mg by mouth in the morning and at bedtime. Activemagnesium oxide 500 mg oral tablet (20 sources)Start: 09-28-2024 End: 05-16-0483xrhl 1 tablet by mouth in the morning, [...] tablet 1 11/04/2024 02/02/2025 ActiveStart: 03-19-2024 End: 54-77-4712lnyb 1 tablet by mouth three times dailyMagnesium Oxide 400 mg (241.3 mg magnesium) tablet Discontinued 400 MG PO Three times daily March 19, 2024 9:39am December 02, 2024 2:07pmStart: 03-19-2024 End: 53-78-7532wtiy 1 tablet by mouth twice dailyMagnesium Oxide 400 mg (241.3 mg magnesium) tablet Discontinued 400 MG PO Twice daily March 19, 2024 12:00am March 19, 2024 9:96tk416 ml magnesium sulfate 40 mg/ml injection (5 sources)Start: 04-06-2025 End: 98-28-7049Fjxrshjwi Sulfate In Water 4 gram/100 mL (4 %) piggyback Active 4 GM IV EVERY 2 WEEKS 0 0 April 06, 2025 3:08pm Hypomagnesemia Hypomagnesemia Standing order for Magnesium level below 1.5. administerover 2-4 hrs Complies with drug therapyStart: 11-24-2024 End: 25-33-8562Lpaczzuxv Sulfate In Water 4 gram/100 mL (4 %) piggyback Discontinued 4 GM IV Once 0 November 24, 2024 1:00am April 06, 2025 2:56pm administer over 2-4 hrsMagnesium Sulfate In Water 4 gram/100 mL (4 %) piggyback (1 source)Start: 37-43-5719Ocqlworxs Sulfate In Water 4 gram/100 mL (4 %) piggyback Active 4 GM IV Once November 24, 2024 1:00amadminister over 2-4 hrs meloxicam 15 mg oral tablet (20 sources)Nonsteroidal Anti-inflammatory DrugStart: 24-80-7823eeka 1 tablet by mouth once dailymeloxicam (Mobic) 15 MG tablet Indications: Degenerative disc disease, cervical TAKE 1 TABLET BY MOUTH EVERY DAY 90 tablet 4 06/18/2024 Active Start: 03-29-2022 End: 11-18-5626ltsv 1 tablet by mouth once dailyMeloxicam 15 mg tablet Discontinued 15 MG PO Daily March 19, 2024 12:00am September 22, 2024 8:17am methylPREDNISolone (3 sources)CorticosteroidStart: 05-06-2025 End: 99-42-7490jetuksSZVYNNLclxea (Medrol Dospak) 4 MG tablets Indications: COPD with acute exacerbation (HCC) Follow schedule on package instructions take with food 21 tablet 05/06/2025 05/13/2025 Activemontelukast 10 mg oral tablet (20 sources)Leukotriene Receptor AntagonistStart: 03-18-2024 End: 25-62-2317dodl 1 tablet by mouth once daily at bedtimeMontelukast 10 mg tablet Active 10 MG PO Daily at bedtime March 19, 2024 12:00am Complies with drug therapynebivolol 10 mg oral tablet (20 sources)Start: 03-18-2024 End: 47-88-2466eadh 1 tablet by mouth once dailyNebivolol 10 mg tablet Active 10 MG PO Daily March 19, 2024 12:00am Complies with drug therapytake 1 tablet by mouth in the morningnebivoloL (BYSTOLIC) 5 mg tablet Take 1 tablet (5 mg total) by mouth in the morning. Activeomeprazole 40 mg delayed release oral capsule (20 sources)Proton Pump InhibitorStart: 11-32-2185ubje 1 capsule by mouth once dailyOmeprazole 40 mg capsule,delayed release(DR/EC) Active 40 MG PO Daily July 12, 2025 9:51am Complies with drug therapyStart: 07-09-2024 End: 87-20-2118dyzo 1 capsule by mouth twice dailyOmeprazole 40 mg capsule,delayed release(DR/EC) Discontinued 40 MG PO Twice daily 180 0 July 09, 2024 1:22pm July 12, 2025 9:52amStart: 06-23-2024 End: 81-19-5507Ozaaavwhmf 40 mg capsule,delayed release(DR/EC) Discontinued 40 MG PO Every 72 hours June 23, 2024 12:00am June 24, 2024 8:41amStart: 03-19-2024 End: 24-59-8556cymi 1 capsule by mouth once dailyOmeprazole 40 mg capsule,delayed release(DR/EC) Discontinued 40 MG PO Daily June 24, 2024 8:41am July 09, 2024 1:23pmpravastatin sodium 40 mg oral tablet (20 sources)HMG-CoA Reductase InhibitorStart: 11-95-7907wsxw 1 tablet by mouth once daily at [...] (20 sources)Angiotensin 2 Receptor BlockerStart: 09-29-2021 End: 64-10-6697qgac 1 tablet by mouth in the morningvalsartan (DIOVAN) 320 mg tablet Take 1 tablet (320 mg total) by mouth in the morning. 09/29/2021 Active Completed/Discontinued Medications MedicationDrug Class(es)DatesSig (Normalized)Sig (Original)cloNIDine hydrochloride 0.1 mg oral tablet (8 sources)Central alpha-2 Adrenergic AgonistStart: 03-19-2024 End: 81-10-8602gdcl 1 tablet by mouth twice dailyClonidine Hcl 0.1 mg tablet Discontinued 0.1 MG PO Twice daily 60 3 March 19, 2024 12:00am 2024 9:50amfamotidine 20 mg oral tablet (20 sources)Histamine-2 Receptor AntagonistStart: 05-04-2024 End: 01-04-4748daej 2 tablets by mouth twice daily in the morning, then take 1 tablet by mouth twice daily in the eveningFamotidine (Pepcid) 20 mg tablet Discontinued 0 PO Twice daily June 23, 2024 10:37am September 22, 2024 8:16am 40mg in am, 20 mg in pm orally twice daily;Start: 03-19-2024 End: 76-07-0724jaqh 1 tablet by mouth twice dailyFamotidine (Pepcid) 20 mg tablet Discontinued 20 MG PO Twice daily 180 March 23, 2024 5:47pm June 23, 2024 10:40amNaltrexone (16 sources)Opioid AntagonistStart: 03-19-2024 End: 80-45-1629yglt 1 capsule by mouth once dailyNaltrexone 4.5 mg capsule Discontinued 4.5 MG PO .QD March 19, 2024 9:40am July 12, 2025 9:51am Start: 13-68-5753arqp 1 capsule by mouth once dailyNaltrexone 4.5 mg capsule Active 4.5 MG PO .QD March 19, 2024 9:40am Complies with drug therapyStart: 12-22-4074koas 1 capsule by mouth once dailyNaltrexone 4.5 mg capsule Active 4.5 MG PO .QD March 19, 2024 9:40amStart: 74-22-5073cqrn 1 capsule by mouth once dailyNaltrexone 4.5 mg capsule Active 4.5 MG PO .QD March 19, 2024 8:40amStart: 17-33-8963oemy 4.5 mg by mouth once dailyNaltrexone Active 4.5 MG PO .QD March 19, 2024 9:40amStart: 03-19-2024 End: 53-20-9182Zhzmrlduvv 4.5 mg capsule Discontinued MG PO March 19, 2024 12:00am March 19, 2024 9:41amStart: 03-19-2024 End: 76-72-1747Vuvgfmemoe 4.5 mg capsule Discontinued MG PO March 18, 2024 11:00pm March 19, 2024 8:41amStart: 03-19-2024 End: 37-73-9917Lbbbdveahh Discontinued MG PO March 19, 2024 12:00am March 19, 2024 9:41amSPIRONOLACTONE, BULK, MISC (1 source) End: 78-83-3536UXXKWKFIBSWEZM, BULK, MISC by miscellaneous route. 04/27/2024 Discontinued (Therapy completed) Problems Active Problems Problem ClassificationProblemDateDocumented DateEpisodic/ChronicAbdominal pain (20 sources)Indigestion; Translations: [Epigastric pain]Onset: 07-06-2024 36-56-2034JtgspxbaEdqfm and unspecified renal failure (20 sources)Acute renal failure syndrome; Translations: [Acute kidney failure, unspecified]Onset: 245143-28-0729AasaigxsRupwqrkc reactions (20 sources)Atopic dermatitis; Translations: [Atopic dermatitis, unspecified] Onset: 992595-05-0685XuqyaojNcjqzl (6 sources)Uncomplicated mild persistent asthma; Translations: [Mild persistent asthma, uncomplicated]Onset: 413962-69-7262MmgosrfPcjvkcw kidney disease (20 sources)Chronic kidney disease stage 3A ; Translations: [Chronic kidney disease, stage 3a (HCC)]Onset: 334545-46-9332VjermczObrmogm obstructive pulmonary disease and bronchiectasis (20 sources)Chronic bronchitis; Translations: [Unspecified chronic bronchitis] Onset: 03-06-2024 Resolved: 751958-31-3374PglfvmhVneksfe obstructive pulmonary disease and bronchiectasis (10 sources)Bronchitis; Translations: [Bronchitis, not specified as acute or chronic]Onset: 243269-92-4133ThxlavgeYwbhbjh ulcer of skin (2 sources)Non-pressure chronic ulcer of unspecified part of unspecified lower leg with unspecified severity; Translations: [Non-pressure chronic ulcer of unspecified part of unspecified lower leg with unspecified severity]Onset: 84-87-8396FiutxdoZxhugvsk mellitus without complication (20 sources)Hyperglycemia, unspecified; Translations: [Hyperglycemia]Onset: 375660-04-5468BjsymwtzWsiorlsgf of lipid metabolism (20 sources)Hyperlipidemia; Translations: [Hyperlipidemia, unspecified]Onset: 944181-45-8729FqlhwqtCybdqmzfbn disorders (20 sources)Gastroesophageal reflux disease; Translations: [Gastro-esophageal reflux disease without esophagitis]Onset: 08-19-2023 Resolved: 559788-00-1001ZznazrhMsrzzoqng hypertension (20 sources)Essential (primary) hypertension; Translations: [Essential hypertension]Onset: 165617-00-7563MeswylqCguue and electrolyte disorders (17 sources)Hypokalemia; Translations: [Disorder of electrolytes]Onset: 78-71-3872HcatglqoBfasahtbdbuouu ulcer (except hemorrhage) (20 sources)Acute gastric ulcer without hemorrhage AND without perforation; Translations: [Acute gastric ulcer without hemorrhage or perforation]Onset: 853637-43-2052NdwohkwjTosf and other crystal arthropathies (13 sources)Gouty arthritis of left hand; Translations: [Gout, unspecified] Onset: 544081-20-0295RcgspteBsiea valve disorders (1 source)Nonrheumatic pulmonary valve insufficiency; 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 INSUFF]Onset: 43-02-5875QuxhehxAaixfigcbcbekw (20 sources)Arthritis; Translations: [Unspecified osteoarthritis, unspecified site]Onset: 263744-17-2795OmorguuNkjss aftercare (1 source)Encounter for follow-up examination after completed treatment for conditions other than malignant neoplasm; Translations: [Encounter for follow-up examination after completed treatment for conditionsother than malignant neoplasm]Onset: 36-12-1524EkgewuzoFrumd and ill-defined heart disease (20 sources)Left ventricular cardiac dysfunction; Translations: [Heart disease, unspecified]Onset: 039855-30-7327YrvxjcmLgbsu connective tissue disease (20 sources)Fibromyalgia; Translations: [Fibromyalgia]Onset: 08-19-2023 19-65-0342FahafkwqUcwbv connective tissue disease (20 sources)Swelling of left lower limb; Translations: [Other specified soft tissue disorders]Onset: 070512-09-6469GigvpgqaZietz diseases of veins and lymphatics (20 sources)Vascular insufficiency; Translations: [Venous insufficiency (chronic) (peripheral)]Onset: 374508-82-9958NrrbwvomIjpbx diseases of veins and lymphatics (2 sources)Peripheral venous insufficiency; Translations: [Venous insufficiency (chronic) (peripheral)]57-30-2749VzsoppkoVurrk hereditary and degenerative nervous system conditions (20 sources)Restless legs; Translations: [Restless legs syndrome]Onset: 846201-14-2505UcdoxrfDlsmk inflammatory condition of skin (20 sources)Psoriasis; Translations: [Psoriasis, unspecified]Onset: 11-26-2023 50-49-9742SepouvxAqyzx lower respiratory disease (20 sources)Cough; Translations: [Cough in adult]Onset: EpisodicOther nervous system disorders (20 sources)Compression injury of nerve; 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, unspecified]Onset: 728542-02-9205HglxnukYpclh nervous system disorders (20 sources)Bilateral carpal tunnel syndrome; Translations: [Carpal tunnel syndrome, bilateral upper limbs]Onset: 889914-20-8589JmednizGcgel nervous system disorders (4 sources)Lesion of ulnar nerve, right upper limb; Translations: [Lesion of ulnar nerve]75-53-0758QabroddQyfmi nervous system disorders (20 sources)Paresthesia of skin; Translations: [Disturbance of skin sensation] Onset: 604525-81-4255XbnqbthiEhkll nutritional; endocrine; and metabolic disorders (1 source)Obesity, unspecified; Translations: [OBESITY UNSPECIFIED]Onset: 41-40-0720KloorqaEfcho nutritional; endocrine; and metabolic disorders (1 source)Body mass index (BMI) 30.0-30.9, adult; Translations: [BODY MASS INDEX BMI 30.0-30.9 ADULT]Onset: 89-58-7245EnkashmUdvys nutritional; endocrine; and metabolic disorders (7 sources)Hypomagnesemia; Translations: [Disorders of magnesium metabolism] Onset: 521169-92-9611NbsvbglQupvx nutritional; endocrine; and metabolic disorders (20 sources)Hypomagnesemia; Translations: [Hypomagnesemia]Onset: 08-19-2023 90-09-5178IesiqefZfiky nutritional; endocrine; and metabolic disorders (20 sources)Body mass index 30+ - obesity; Translations: [Obesity, unspecified] Onset: 02-26-2024 Resolved: 690824-99-7733UdpgartXzges nutritional; endocrine; and metabolic disorders (20 sources)Obesity caused by energy imbalance; Translations: [Morbid (severe) obesity due to excess calories]Onset: 727154-49-5627KsffgibGsxnq screening for suspected conditions (not mental disorders or infectious disease) (20 sources)Encounter for screening for malignant neoplasm of prostate; Translations: [Cardiovascular stress test abnormal]Onset: EpisodicPhlebitis; thrombophlebitis and thromboembolism (20 sources)Chronic deep venous thrombosis of popliteal vein of left leg; Translations: [Chronic embolism and thrombosis of left popliteal vein]Onset: 761270-12-7191CmabxioPisvipipi heart disease (20 sources)Pulmonary hypertension; Translations: [Pulmonary hypertension, unspecified]Onset: 170739-27-0888XamwuqyDmdtsgpj codes; unclassified (20 sources)Hypersomnia; Translations: [Hypersomnia, unspecified]Onset: 310628-85-5942VrmvkdlUgxxrvli codes; unclassified (20 sources)Obstructive sleep apnea syndrome; Translations: [Obstructive sleep apnea (adult) (pediatric)]Onset: 856218-17-1667XtqlktqNsejxzqm codes; unclassified (20 sources)Orthopedic hardware in situ; Translations: [Presence of other specified devices]Onset: 953290-95-4671KsjklsclHaugbhax codes; unclassified (1 source)Other specified postprocedural states; Translations: [Other specified postprocedural states]Onset: 57-85-1270HotnbkfgTiuq and subcutaneous tissue infections (20 sources)Cellulitis of left lower limb; Translations: [Cellulitis of left lower limb]Onset: 890363-90-4821VvwjblkrVhirtmvnwxm; intervertebral disc disorders; other back problems (20 sources)Degeneration of cervical intervertebral disc; Translations: [Other cervical disc degeneration, unspecified cervical region]Onset: 11-26-2023 12-02-9937IrmmqxvLqawnvnsjjq; intervertebral disc disorders; other back problems (20 sources)Cervical radiculopathy; Translations: [Radiculopathy, cervical region]Onset: 411133-81-0012VoyrskatAjtuwwcqw-npyrbry disorders (20 sources)Nicotine dependence; Translations: [Nicotine dependence, unspecified, uncomplicated]Onset: 975921-92-8635TmifkduKncykcxqf-mlxiide disorders (20 sources)Marijuana user; Translations: [Cannabis use, unspecified, uncomplicated]Onset: 488234-48-0677BesgxwnpExvccfs disorders (20 sources)Hypothyroidism, unspecified; Translations: [Hypothyroidism]Onset: 22-83-6210StmcjucOuyhnejjxast (1 source)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 ([facility])36-97-6144Apgttzqvioqw (2 sources)Autogenerated ProblemOnset: 397753-93-2453Fwqzrpvtkyro (1 source)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 ([facility]) [I83.209, L97.909]Onset: 04-66-0284Vviairndpdhh (1 source)Cellulitis of left lower extremity Left leg swellingOnset: 04-01-2025 Varicose veins of lower extremity (20 sources)Varicose veins of unspecified lower extremity with both ulcer of unspecified site and inflammation;Translations: [Varicose veins of lower extremities with ulcer and inflammation]Onset: 319461-78-1356Ukrekroj Past or Other Problems Problem ClassificationProblemDateDocumented DateEpisodic/ChronicImmunizations and screening for infectious disease (20 sources)Needs influenza immunization; Translations: [Encounter for immunization]Onset: 07-06-2024 Resolved: 941964-75-5966PpdbwpxaVjndp diseases of veins and lymphatics (2 sources)Venous insufficiency (chronic) (peripheral); Translations: [Venous insufficiency (chronic) (peripheral)]Onset: 78-64-6142KhktpuqjGektq gastrointestinal disorders (1 source)Heartburn; Translations: [Heartburn]Onset: 55-60-7034PxqqjiftAdsbc lower respiratory disease (4 sources)Dyspnea, unspecified; Translations: [DYSPNEA UNSPECIFIED]Onset: 90-38-6768YphppvxsZhmky lower respiratory disease (20 sources)Dyspnea; Translations: [Dyspnea, unspecified]Onset: 08-19-2023 Resolved: 158694-67-9987MfidazcbUbkql lower respiratory disease (6 sources)Radiologic infiltrate of lung ; Translations: [Other nonspecific abnormal finding of lung field]Onset: 821485-78-7276UactcjaqSwfae nervous system disorders (20 sources)Carpal tunnel syndrome; Translations: [Carpal tunnel syndrome, unspecified upper limb]Onset: 02-02-2024 Resolved: 463872-29-3866YpkvrnaNxpfe nervous system disorders (20 sources)Paresthesia; Translations: [Paresthesia of skin]Onset: 02-02-2024 Resolved: 767140-64-0722TkrzbzwoVddza nervous system disorders (1 source)Postoperative pain ; Translations: [Other acute postprocedural pain] 96-79-8161LpzgzmcoFxfyeef (11 sources)Syncope and collapse; Translations: [Syncope and collapse]Onset: 95-07-4639TdixtjecFiaqsjiylkxr (1 source)Preprocedural examination tllm38-37-3939 Results Test NameValueInterpretationReference RangeFacilityMAGNESIUMon 07-08-2025 Magnesium [Mass/Vol]1.7 mg/dLLow1.8-2.6T[facility]carawas HospitalComment on above:Performed By: #### MG #### [facility] ([facility]) [address] [place] [address] VIRAPTTon 31-36-7621ePYO Coag (Bld) [Time]29 mUvfbud69-42 [facility] HospitalComment on above:Performed By: #### PTT #### [facility] ([facility]) [address] [place] [address] VIRBASIC METABOLIC PANELon 40-82-6453Fxsxx gap [Moles/Vol]10 mmol/LNormal5-15T[facility]carawas HospitalComment on above:Performed By: #### BMP #### [facility] ([facility]) [address] [place] [address] VIRCalcium [Mass/Vol]8.7 mg/dLNormal8.5-10.5PBarberton Citizens HospitalComment on above:Performed By: #### BMP #### [facility] ([facility]) [address] [place] [address] VIRChloride [Moles/Vol]103 mmol/ELkeaav50-743GutMbefzkJohn Peter Smith HospitalComment on above:Performed By: #### BMP #### [facility] ([facility]) [address] [place] [address] VIRCO2 [Moles/Vol]31 mmol/YOwccng57-49UcrKltbhqBarberton Citizens HospitalComment on above:Performed By: #### BMP #### [facility] ([facility]) [address] [place] [address] VIRCreatinine [Mass/Vol]1.13 mg/dLNormal0.60-1.30Tuscarawas HospitalComment on above:Result Comment: METHOD TRACEABLE TO IDMS STANDARDPerformed By: #### BMP #### [facility] ([facility]) [address] [place] [address] VIRGFR/1.73 sq M.predicted among non-blacks MDRD (S/P/Bld) [Vol rate/Area]76 mL/min/{1.73_m2}Normal>=60ProJohn Peter Smith HospitalComment on above:Result Comment: Reported eGFR is based on the CKD-EPI 2020 equation that does not use a race coefficient.Performed By: #### BMP #### [facility] ([facility]) [address] [place] [address] VIRGlucose [Mass/Vol]100 mg/tYEjax54-97LgeArjhiyJohn Peter Smith HospitalComment on above:Performed By: #### BMP #### [facility] ([facility]) [address] [place] [address] VIRPotassium [Moles/Vol]3.8 mmol/LNormal3.5-5.0ProJohn Peter Smith HospitalComment on above:Performed By: #### BMP #### [facility] ([facility]) [address] [place] [address] VIRSodium [Moles/Vol]144 mmol/OCrwtbk774-683QhsOotjaf [facility] HospitalComment on above:Performed By: #### BMP #### [facility] ([facility]) [address] [place] [address] VIRUrea nitrogen [Mass/Vol]13 mg/dLNormal5-23ProJohn Peter Smith HospitalComment on above:Performed By: #### BMP #### [facility] ([facility]) [address] [place] [address] VIRCBC (NO DIFF)on 77-91-7922Mjhbzkjnfpn distribution width (RBC) [Ratio]14.5 %Jxckuq25.5-15Tuscarawas HospitalComment on above: Performed By: #### CBC #### [facility] ([facility]) [address] [place] [address] VIRHematocrit (Bld) [Volume fraction]42.2 %Szhvef16-21BijGqdpmhTuscarawas HospitalComment on above:Performed By: #### CBC #### [facility] ([facility]) [address] [place] [address] VIRHemoglobin (Bld) [Mass/Vol]13.8 g/aCCsvzag34-96UthRhnqiqTuscarawas HospitalComment on above:Performed By: #### CBC #### [facility] ([facility]) [address] [place] [address] VIRMCH (RBC) [Entitic mass]29.9 aeCjttyf38-47OkvIyiijeTuscarawas HospitalComment on above:Performed By: #### CBC #### [facility] ([facility]) [address] [place] [address] VIRMCHC (RBC) [Mass/Vol]32.8 g/eNDyiofw02-42GajPxmmrbTuscarawas HospitalComment on above:Performed By: #### CBC #### [facility] ([facility]) [address] [place] [address] VIRMCV (RBC) [Entitic vol]91 uPBctajc14-416UemVxojruTuscarawas HospitalComment on above:Performed By: #### CBC #### [facility] ([facility]) [address] [place] [address] VIRPlatelet mean volume (Bld) [Entitic vol]8.6 fLNormal7-12 [place] HospitalComment on above:Performed By: #### CBC #### [facility] ([facility]) [address] [place] [address] VIRPlatelets (Bld) [#/Vol]277 10*3/uCXwrjjm633-314CsxTfnulg [facility] HospitalComment on above:Performed By: #### CBC #### [facility] ([facility]) [address] [place] [address] VIRRBC COUNT4.61 X10E12/LNormal4.1-5.7ProJohn Peter Smith HospitalComment on above:Performed By: #### CBC #### [facility] ([facility]) [address] [place] [address] VIRWBC (Bld) [#/Vol]8.4 10*3/uLNormal4-11T[facility]carawas HospitalComment on above:Performed By: #### CBC #### [facility] ([facility]) [address] [place] [address] VIRECG 12 leadon 49-02-1758KSSBXFYSRVDREAHzcDmfgtk Health SystemMAGNESIUMon 36-62-2556Trbfgavyn [Mass/Vol]1.0 mg/dLLow1.8-2.6Tuscarawas HospitalComment on above:Performed By: #### MG #### [facility] ([facility]) [address] [place] [address] VIRMagnesiumon 42-82-8674Znciklcrozvqbd and review of laboratory resultsAbnormalAshtabula County Medical Center SystemMagnesium [Mass/Vol]1 mg/dLLow 1.8 - 2.6 mg/dLSSM Health St. [facility] SystemPROTIME AND INRon 67-43-2560WCE2.9Cfaaht9.9-1.2PBarberton Citizens HospitalComment on above: Performed By: #### PINR #### [facility] ([facility] [address] [place] [address] VIRPT Coag (PPP) [Time]11.2 sNormal9.8-13.2PBarberton Citizens HospitalComment on above:Performed By: #### PINR #### [facility] ([facility]) [address] [place] [address] VIRLaboratory - Chemistry and Chemistry - challengeOrdered By: Tang Hamilton on 53-95-7399Cvnssszpe [Mass/Vol]0.6 mg/dLCritically low1.8-2.4 [facility] City HospitalComment on above:RESULTS CALLED TOLaboratory - Chemistry and Chemistry - challengeOrdered By: Tang Hamilton on 05-26-2025 Magnesium [Mass/Vol]0.8 mg/dLCritically low1.8-2.4FOhioHealth Grady Memorial HospitalComment on above:RESULTS CALLED TO LYNNETTE GIBSON LPN at 1444ALL MAGNESIUM on 13-95-0055Dlwmqdnktjoqgi and review of laboratory resultsAbnormalNOMS HealthcareMagnesium [Mass/Vol]0.7 mg/dLCritically low1.8 - 2.4 mg/dLNOVT HealthcareComment on above:RESULTS CALLED TOCLINISYNCNOVT HealthcareLaboratory - Chemistry and Chemistry - challengeOrdered By: Tang Hamilton on 05-06-2025 Magnesium [Mass/Vol]0.7 mg/dLCritically low1.8-2.4FOhioHealth Grady Memorial HospitalComment on above:RESULTS CALLED TOLAXMI MAGNESIUMon 52-42-2139Ppepcuwihbdkpi and review of laboratory resultsAbnormalNOMS HealthcareMagnesium [Mass/Vol]1.3 mg/dLLow1.8 - 2.4 mg/dLNOVT HealthcareCLINISYNCNOMS HealthcareALL URIC ACIDon 38-02-2682Ozfdr [Mass/Vol]7.2 mg/dL3.5 - 7.2 mg/dLNOBothwell Regional Health CenterCLINISYNCNCarondelet HealthGlomerular filtration rate (GFR) estimation in non- Ordered By: Tang Hamilton on 61-33-6668UTD/1.73 sq M.predicted among non-blacks MDRD (S/P/Bld) [Vol rate/Area]mL/min/{1.73_m2}>=60 mL/min/1.73m 2FOhioHealth Grady Memorial HospitalLaboratory - Chemistry and Chemistry - challengeOrdered By: Tang Hamilton on 61-25-3401Gvqdxmo [Mass/Vol]3.2 g/dLLow3.4-5.0F[facility] City HospitalCalcium [Mass/Vol]7.5 mg/dLLow8.5-10.1FOhioHealth Grady Memorial HospitalChloride [Moles/Vol]107 mmol/E74-963FgptmpyvqFostoria City HospitalCO2 [Moles/Vol]29.4 mmol/L21.0-32.0[facility] Creatinine [Mass/Vol]1.15 mg/dL0.70-1.30[facility] GFR/1.73 sq M.predicted MDRD (S/P/Bld) [Vol rate/Area]mL/min/{1.73_m2}>=60 mL/min/1.73m 2FOhioHealth Grady Memorial HospitalGlucose [Mass/Vol]101 mg/oW75-968 [facility] [facility] HospitalMagnesium [Mass/Vol]0.5 mg/dLCritically low 1.8-2.4FOhioHealth Grady Memorial HospitalComment on above:RESULTS CALLED TO Potassium [Moles/Vol]3.9 mmol/L3.5-5.1FHocking Valley Community Hospitalodium [Moles/Vol]146 mmol/PJcvm322-590TloaqvbelFostoria City HospitalUrea nitrogen [Mass/Vol]20.0 mg/dLHigh7.0-18.0[facility] HospitalUrea nitrogen/Creatinine [Mass ratio]17.4 mg/mgFostoria City HospitalNo Panel InformationOrdered By: Tang Hamilton on 48-17-2360Fgxjnnppkq Level3.5 mg/dL 2.6-4.7FHocking Valley Community Hospitalerum or plasma anion gap determination Ordered By: Tang Hamilton on 09-88-9965Fsxjn gap [Moles/Vol]13.5 mmol/LFOhioHealth Grady Memorial HospitalALL BASIC METABOLIC PANELon 61-15-1564Guboo gap [Moles/Vol]13.7 mmol/LNOMS HealthcareCalcium [Mass/Vol]7.9 mg/dLLow8.5 - 10.1 mg/dLNOMS HealthcareChloride [Moles/Vol]107 mmol/L98 - 107 mmol/LNOMS Healthcare CO2 [Moles/Vol]28.8 mmol/L21.0 - 32.0 mmol/LNOMS HealthcareCreatinine [Mass/Vol] 1.04 mg/dL0.70 - 1.30 mg/dLNOMS HealthcareGFR/1.73 sq M.predicted CKD-EPI (S/P/Bld) [Vol rate/Area]>60>=60 mL/min/1.73m 2NOMS HealthcareGlucose [Mass/Vol] 130 mg/dWOute02 - 106 mg/dLNOVT HealthcareInterpretation and review of laboratory resultsAbnormalNOVT HealthcarePotassium [Moles/Vol]3.5 mmol/L3.5 - 5.1 mmol/LNOMS HealthcareSodium [Moles/Vol]146 mmol/NAtkk160 - 145 mmol/LNOMS HealthcareTBH EGFR-NON AF QATARI>60>=60 mL/min/1.73m 2NOMS HealthcareUrea nitrogen [Mass/Vol]15 mg/dL7.0 - 18.0 mg/dLNOVT HealthcareUrea nitrogen/Creatinine [Mass ratio]14.4 mg/mgNOVT HealthcareCLINISYNCNCHOCTAW NATION HEALTH CARE CENTER – [facility]IH[facility] HealthcareALL CBC WITH AUTO DIFFon 15-81-7031LCFUDVAZW ABSOLUTE AUTO0.1NOMS HealthcareBasophils/100 WBC (Bld)0.7 %0.2 - 2.0 %NOMS HealthcareEosinophils/100 WBC (Bld)9.5 %High0.9 - 7.0 %NOM HealthcareErythrocyte distribution width (RBC) [Ratio]15 %11.0 - 15.0 %NOMS HealthcareHematocrit (Bld) [Volume fraction]38.3 % Low42.0 - 54.0 %NOMSac-Osage HospitalHemoglobin (Bld) [Mass/Vol]12.5 g/dLLow14.0 - 18.0 g/dLNOBothwell Regional Health CenterIMMATURE GRANULOCYTES ABS AUTO0.03NOMS Healthcare Immature granulocytes/100 WBC (Bld)0.3 %0.0 - 0.5 %NOM HealthcareInterpretation and review of laboratory resultsAbnormalNOBothwell Regional Health CenterLYMPHOCYTES ABSOLUTE AUTO1.9NOMS HealthcareLymphocytes/100 WBC (Bld)20.4 %Low20.5 - 60.0 %NOMSSM Health Cardinal Glennon Children's HospitalH (RBC) [Entitic mass]31.8 pg25.9 - 34.0 pgNOFreeman Cancer InstituteHC (RBC) [Mass/Vol]32.6 g/dL29.9 - 35.2 g/dLNOVT HealthcareMCV (RBC) [Entitic vol]97.5 fL High80.0 - 94.0 fLNOVT HealthcareMONOCYTES ABSOLUTE AUTO0.5NOMS Healthcare Monocytes/100 WBC (Bld)5.2 %1.7 - 12.0 %NOMS HealthcareNEUTROPHILS ABSOLUTE AUTO 5.8NOMS HealthcareNeutrophils/100 WBC (Bld)63.9 %43.0 - 75.0 %NOMS [facility] Platelet mean volume (Bld) [Entitic vol]9.8 fL9.5 - 13.5 fLNOVT HealthcareTBH EO #0.9HighNOMS HealthcareTBH SOC105CXET HealthcareTB RBC3.93LowNOMS [facility] Anne HospitalTB WBC9.1NOMS HealthcareCLINISYNCNCHOCTAW NATION HEALTH C[facility] [place] HealthcareLaboratory - Chemistry and Chemistry - challengeOrdered By: Tang Hamilton on 01-46-1953Tnlpoofsr [Mass/Vol] 0.2 mg/dLCritically low1.8-2.4FOhioHealth Grady Memorial HospitalComment on above: RESULTS CALLED TO Cheikh FOFANA Panel InformationOrdered By: Tang Hamilton on 62-15-3282Vgubomghii Level2.7 mg/dL2.6-4.7FOhioHealth Grady Memorial Hospital ALL CBC WITH AUTO DIFFon 49-22-5390ALHQJLYSM ABSOLUTE AUTO0.1NOMS [facility] Basophils/100 WBC (Bld)0.8 %0.2 - 2.0 %NOMS HealthcareEosinophils/100 WBC (Bld) 6.2 %0.9 - 7.0 %NOMSac-Osage HospitalErythrocyte distribution width (RBC) [Ratio]13.7 %11.0 - 15.0 %NOMS HealthcareHematocrit (Bld) [Volume fraction]42 %42.0 - 54.0 % NOM HealthcareHemoglobin (Bld) [Mass/Vol]13.6 g/dLLow14.0 - 18.0 g/dLNOBothwell Regional Health CenterIMMATURE GRANULOCYTES ABS AUTO0.03NOMS HealthcareImmature granulocytes/100 WBC (Bld)0.3 %0.0 - 0.5 %NOM HealthcareInterpretation and review of laboratory resultsAbnormalNOMS HealthcareLYMPHOCYTES ABSOLUTE AUTO1.8 NOMSac-Osage HospitalLymphocytes/100 WBC (Bld)21 %20.5 - 60.0 %[facility] SystemH (RBC) [Entitic mass]31.1 pg25.9 - 34.0 pgNOFreeman Cancer InstituteHC (RBC) [Mass/Vol] 32.4 g/dL29.9 - 35.2 g/dLSaint John's Health SystemV (RBC) [Entitic vol]95.9 oKLwla67.0 - 94.0 fLSac-Osage HospitalMONOCYTES ABSOLUTE AUTO0.5NOVT HealthcareMonocytes/100 WBC (Bld)6.1 %1.7 - 12.0 %Sac-Osage HospitalNEUTROPHILS ABSOLUTE AUTO5.8NOBothwell Regional Health Center Neutrophils/100 WBC (Bld)65.6 %43.0 - 75.0 %Sac-Osage HospitalPlatelet mean volume (Bld) [Entitic vol]9.6 fL9.5 - 13.5 fLSac-Osage HospitalTBH EO #0.5NOMS Healthcare TBH [id number] John's Regional Health Center RBC4.38LowNOSaint John's Regional Health Center WBC8.8NOBothwell Regional Health Center CLINISYNCCitizens Memorial Healthcare MAGNESIUMon 95-87-1593Jdcqwbosmtnluu and review of laboratory resultsAbnormalNOMS HealthcareMagnesium [Mass/Vol]1.1 mg/dLLow1.8 - 2.4 mg/dLSac-Osage HospitalCLINISYNCNOMS HealthcareLaboratory - Chemistry and Chemistry - challengeon 80-65-6728Qdscpprgo [Mass/Vol]1.1 mg/dLLow1.8-2.4 [facility] MAGNESIUMon 02-56-0344Qflbcrnnpzencs and review of laboratory resultsAbnormalNOMS HealthcareMagnesium [Mass/Vol]0.7 mg/dL Critically low1.8 - 2.4 mg/dLPRIMARY CHILDREN'S [facility] HealthcareComment on above:RESULTS CALLED TO IRENE BOOTH MA AT OFFICE BY Violeta Gold at [address] [facility] MAGNESIUMon 02-73-9015Nyvffcrouwzaez and review of laboratory resultsAbnormalNOMS HealthcareMagnesium [Mass/Vol]0.8 mg/dLCritically low1.8 - 2.4 mg/dLNOVT HealthcareComment on above:RESULTS CALLED TOALL THYROID STIM HORMONEon 44-24-8007GSK Qn2.054 m[IU]/LNOMS KrfrbvzbguOjQ9x (Bld) [Mass fraction]on 79-30-0404Nooicvxzihkcfq and review of laboratory resultsNormalNOProgress [facility] HealthcareLaboratory - Hematology and Cell countson 10-07-2024 HbA1c (Bld) [Mass fraction]5.60 %[facility] HealthcareNo Panel Informationon 50-90-2951YKILNQDQMMMET HealthcareAmphetamine Screen Ql (U)Ordered By: Imad Asaad on 66-98-6162Shgkkicmvbzc Ql (U)Amphetamines screenNegativeFostoria City HospitalBarbiturates [Presence] in Urine by Screen methodOrdered By: Imad Asaad on 94-56-9711Ovzioxubfdnc Screen Ql (U)Barbiturates [Presence] in Urine by Screen methodNegativeFostoria City HospitalBenzodiazepines Screen Ql (U)Ordered By: Imad Asaad on 96-64-0302Jzhrlhptykozgmn Ql (U) Benzodiazepines [Presence] in Urine by Screen methodNegativeFostoria City HospitalBenzoylecgonine [Presence] in Urine by Screen methodOrdered By: Imad Asaad on 67-45-5763Pvdvogdyzyydhgp Screen Ql (U)Benzoylecgonine [Presence] in Urine by Screen methodNegativeFostoria City HospitalCannabinoids [Presence] in Urine by Screen methodOrdered By: Imad Asaad on 10-06-2024 Cannabinoids Screen Ql (U)Cannabinoids [Presence] in Urine by Screen methodHigh NegativeFostoria City HospitalComment on above:These are unconfirmed results and should not be used for legal purposes. Drug Cut-Off Concentration: AMPH 1000 ng/mL MAX 200 ng/mL JUHI 200 ng/mL COCM 300 ng/mL OP 300 ng/mL PCP 25 ng/mL THC 20 ng/mLDrug Screen,Urineon 01-00-0459Hwltiwgcfjb Screen,Urine NegativeNormalNegativeThe Community Health Physician GroupComment on above:Performed By: #### URDS #### [place] [address] USABarbiturate Screen,UrineNegativeNormalNegativeThe Community Health Physician GroupComment on above:Performed By: #### URDS #### [place] [address] USABenzodiazepines Screen,UrineNegativeNormalNegativeThe Community Health Physician GroupComment on above:Performed By: #### URDS #### [place] [address] USACannabinoid Screen,UrinePositiveHighNegativeThe Community Health Physician GroupComment on above:Result Comment: These are unconfirmed results and should not be used for legal purposes. Drug Cut-Off Concentration: AMPH 1000 ng/mL MAX 200 ng/mL JUHI 200 ng/mL COCM 300 ng/mL OP 300 ng/mL PCP 25 ng/mL THC 20 ng/mL PERFORMED BY: [place] [address] PATHOLOGIST [employer]OC[employer]ATE [employer] MANAGER ROBERT GRIMES M.D.Performed By: #### URDS #### [place] [address] USACocaine Screen,UrineNegativeNormalNegativeHca Florida North Florida Hospital Physician GroupComment on above:Performed By: #### URDS #### [place] [address] USAOpiate Screen,UrineNegativeNormalNegativeHca Florida North Florida Hospital Physician GroupComment on above:Performed By: #### URDS #### [place] [address] USAPhencyclidine Screen,UrineNegativeNormalNegativeThe Community Health Physician GroupComment on above:Performed By: #### URDS #### [place] [address] USALon 10-06-2024L Specimen: [id number] Received: 10/06/24 Status: SAHIL Fernandezsaira Num: [id number] Spec Type: Surgical Subm Dr: James Elaine MD Tissues: A Esophagus Biopsy (ESOPHAGUS BX R/O BARRETTS) Procedures: HE/2, Gross/Micro L4 Age/ Patient Sex Location Account Attending Physician Abram Guillaume/M [id number] James Elaine MD SPEC NUM: [id number] RECD: 10/06/24 STATUS: SAHIL EUGENIO NUM: [id number] PHILLIP: 10/06/[address] [facility] [address]: James Elaine MD ENTERED: 10/06/24 LAUREL FRYE: ANGELICA TYPE: Surgical DEPT: S ENTERED BY: [id number] RECV BY: [id number] ORDERED: HE/2, Gross/Micro L4 ORDERED: HE/2, Gross/Micro [...] S2 Received: 10/06/24 Status: SAHIL Ruiz Num: [id number] Spec Type: Surgical Subm Dr: James Elaine MD Tissues: A Esophagus Biopsy (ESOPHAGUS BX R/O BARRETTS) Procedures: HE/2, Gross/Micro L4 Patient: Abram Guillaume [id number] (Continued) Specimen: S2 Received: 10/06/24 (Continued) Signed (signature on file) Sandro Baird MD 10/07/24 1009 Specimen: [id number] Received: 10/06/24 Status: SAHIL Ruiz Num: [id number] Spec Type: Surgical Subm Dr: James Elaine MD Tissues: A Esophagus Biopsy (ESOPHAGUS BX R/O BARRETTS) Procedures: HE/Colette, Gross/Micro L4 Patient: SissyAbram [id number] (Continued) Specimen: S2 Received: 10/06/24 (Continued) CPT Codes 69355 Specimen: [id number] Received: 10/06/24-1056 Status: SAHIL Ruiz Num: [id number] Spec Type: Surgical Subm Dr: James Elaine MD Tissues: A Esophagus Biopsy (ESOPHAGUS BX R/O BARRETTS) Procedures: HE/2, Gross/Micro L4 Patient: Abram Guillaume [id number] (Continued) Signed (signature on file) Sandro Baird MD 10/07/24 1009Normal The Community Health Physician GroupOpiates [Presence] in Urine by Screen methodOrdered By: James Elaine on 53-15-4399Qptpztc Screen Ql (U)Opiates [Presence] in Urine by Screen methodNegAvita Health SystemPhencyclidine Screen Ql (U)Ordered By: James Elaine on [id number] Ql (U)Phencyclidine [Presence] in Urine by Screen methodNegAvita Health SystemALL BASIC METABOLIC PANELon 64-75-7860Mbchz gap [Moles/Vol]14.1 mmol/LNOMS HealthcareCalcium [Mass/Vol]8.3 mg/dLLow8.5 - 10.1 mg/dLNOMS HealthcareChloride [Moles/Vol]104 mmol/L98 - 107 mmol/LNOMS HealthcareCO2 [Moles/Vol]28.4 mmol/L 21.0 - 32.0 mmol/LNOMS HealthcareCreatinine [Mass/Vol]1.61 mg/dLHigh0.70 - 1.30 mg/dLNOMS HealthcareGFR/1.73 sq M.predicted CKD-EPI (S/P/Bld) [Vol rate/Area]54 Low>=60 mL/min/1.73m 2NOMS HealthcareGlucose [Mass/Vol]137 mg/oWYyqu77 - 106 mg/dLNOVT HealthcarePotassium [Moles/Vol]3.5 mmol/L3.5 - 5.1 mmol/LNOMS HealthcareSodium [Moles/Vol]143 mmol/L136 - 145 mmol/LNOMS HealthcareTBH EGFR- NON AF [id number]>=60 mL/min/1.73m 2NOMS HealthcareUrea nitrogen [Mass/Vol]17 mg/dL7.0 - 18.0 mg/dLNOVT HealthcareUrea nitrogen/Creatinine [Mass ratio]10.6 mg/mgNOVT HealthcareALL MAGNESIUMon 43-10-2860Cujsncyum [Mass/Vol]0.8 mg/dL Critically low1.8 - 2.4 mg/dLNOVT HealthcareComment on above:RESULTS CALLED TO Kiara REED Panel Informationon [id number] and review of laboratory resultsAbnormalNOMS HealthcareCLINISYNCNOMS HealthcareAmphetamine Screen Ql (U)Ordered By: James Elaine on 19-21-0630Owrbyldgakwt Ql (U)Amphetamines screenNegativeFostoria City HospitalAmphetamines Ql (U)Negative NegativeFostoria City HospitalBarbiturates [Presence] in Urine by Screen methodOrdered By: Imrosalie Asarosalie on [phone] Screen Ql (U) NegativeNegativeFostoria City HospitalBarbiturates Screen Ql (U) Barbiturates [Presence] in Urine by Screen methodNegativeFostoria City HospitalBenzodiazepines Screen Ql (U)Ordered By: James Holbrook on 07-09-2024 Benzodiazepines Ql (U)NegativeNegAvita Health System Benzodiazepines Ql (U)Benzodiazepines [Presence] in Urine by Screen method NegativeFostoria City HospitalBenzoylecgonine [Presence] in Urine by Screen methodOrdered By: Imrosalie Holbrook on [id number] Screen Ql (U) NegativeNegativeFostoria City HospitalBenzoylecgonine Screen Ql (U) Benzoylecgonine [Presence] in Urine by Screen methodNegativeFostoria City HospitalCannabinoids [Presence] in Urine by Screen methodOrdered By: rosalie Holbrook on [id number] Screen Ql (U)NegativeNegAvita Health SystemComment on above:These are unconfirmed results and should not be used for legal purposes. Drug Cut-Off Concentration: AMPH 1000 ng/mL MAX 200 ng/mL JUHI 200 ng/mL COCM 300 ng/mL OP 300 ng/mL PCP 25 ng/mL THC 20 ng/mL Cannabinoids Screen Ql (U)Cannabinoids [Presence] in Urine by Screen method NegativeFostoria City HospitalComment on above:These are unconfirmed results and should not be used for legal purposes. Drug Cut-Off Concentration: AMPH 1000 ng/mL MAX 200 ng/mL JUHI 200 ng/mL COCM 300 ng/mL OP 300 ng/mL PCP 25 ng/mL THC 20 ng/mLDrug Screen,Urineon [id number] Screen,Urine NegativeNormalNegativeHca Florida North Florida Hospital Physician GroupComment on above:Performed By: #### URDS #### [facility] [address] [place] [address] USABarbiturate Screen,UrineNegativeNormalNegativeHca Florida North Florida Hospital Physician GroupComment on above:Performed By: #### URDS #### [facility] [address] [place] [address] USABenzodiazepines Screen,UrineNegativeNormalNegativeHca Florida North Florida Hospital Physician GroupComment on above:Performed By: #### URDS #### [facility] [address] [place] [address] USACannabinoid Screen,UrineNegativeNormalNegativeHca Florida North Florida Hospital Physician GroupComment on above:Result Comment: These are unconfirmed results and should not be used for legal purposes. Drug Cut-Off Concentration: AMPH 1000 ng/mL MAX 200 ng/mL JUHI 200 ng/mL COCM 300 ng/mL OP 300 ng/mL PCP 25 ng/mL THC 20 ng/mL PERFORMED BY: [place] [address] PATHOLOGIST ASSOCIATE BRAND MANAGER ZUHAIR KAUR M.D.Performed By: #### URDS #### [facility] [address] [place] [address] USACocaine Screen,UrineNegativeNormalNegativeHca Florida North Florida Hospital Physician GroupComment on above:Performed By: #### URDS #### [facility] [address] [place] [address] USAOpiate Screen,UrineNegativeNormalNegativeHca Florida North Florida Hospital Physician GroupComment on above:Performed By: #### URDS #### [facility] [address] [place], [place] [id number] USAPhencyclidine Screen,UrineNegativeNormalNegativeHca Florida North Florida Hospital Physician GroupComment on above:Performed By: #### URDS #### [facility] [address] [place], [place] [id number] USANo Panel InformationOrdered By: rosalie [facility] on 07-09-2024 Miscellaneous Pathology TestSee commentFostoria City HospitalComment on above:See report. Scanned copy available in EMR.Opiates [Presence] in Urine by Screen methodOrdered By: rosalie Elaine on [id number] Screen Ql (U) NegativeNegAvita Health SystemOpiates Screen Ql (U)Opiates [Presence] in Urine by Screen methodNegAvita Health System Pathology Request for Lab Corpon [id number] Request for Lab CorpNormal [facility] Physician GroupComment on above:Order Comment: PATHOLOGY GI SPECIMENResult Comment: See report. Scanned copy available in EMR. PERFORMED BY: [place] [id number] PATHOLOGIST ASSOCIATE BRAND MANAGER ZUHAIR KAUR M.D.Performed By: #### PATH TO [facility] #### [place] [address] USAPhencyclidine Screen Ql (U)Ordered By: James Elaine on 66-81-1056Ecvroodueylij Ql (U)NegativeNegativeFostoria City Hospital Phencyclidine Ql (U)Phencyclidine [Presence] in Urine by Screen methodNegative Fostoria City HospitalALL MAGNESIUMon 78-63-3024Scturegnl [Mass/Vol] 1.5 mg/dLLow1.8 - 2.4 mg/dLNOVT HealthcareALL RENAL FUNCTION PANELon 06-23-2024 Albumin [Mass/Vol]3.3 g/dLLow3.4 - 5.0 g/dLNOVT HealthcareAnion gap [Moles/Vol] 12.6 mmol/LNOMS HealthcareCalcium [Mass/Vol]8.7 mg/dL8.5 - 10.1 mg/dLNOVT HealthcareChloride [Moles/Vol]104 mmol/L98 - 107 mmol/LNOMS HealthcareCO2 [Moles/Vol]26.1 mmol/L21.0 - 32.0 mmol/LNOMS HealthcareCreatinine [Mass/Vol]1.72 mg/dLHigh0.70 - 1.30 mg/dLNOVT HealthcareGFR/1.73 sq M.predicted CKD-EPI (S/P/Bld) [Vol rate/Area]76Xbo23 - PINFNOMS HealthcareGlucose [Mass/Vol]114 mg/rSHkhy00 - 106 mg/dLNOVT HealthcarePhosphate [Mass/Vol]3.2 mg/dL2.6 - 4.7 mg/dLNOVT HealthcarePotassium [Moles/Vol]4.7 mmol/L3.5 - 5.1 mmol/LNOMS HealthcareSodium [Moles/Vol]138 mmol/L136 - 145 mmol/LNOMS HealthcareTBH EGFR- NON AF [id number] - PINFNOMS HealthcareUrea nitrogen [Mass/Vol]30.0 mg/dL High7.0 - 18.0 mg/dLNOVT HealthcareUrea nitrogen/Creatinine [Mass ratio]17.4 mg/mgNOVT HealthcareALL URIC ACIDon 25-75-5456Otapl [Mass/Vol]8.0 mg/dLHigh3.5 - 7.2 mg/dLNOVT HealthcareEstimated glomerular filtration rate (GFR) non- Americanon 95-57-4677WMO/1.73 sq M.predicted among non-blacks MDRD (S/P/Bld) [Vol rate/Area]41 mL/min/{1.73_m2}Low>=60F[facility] Hospital Laboratory - Chemistry and Chemistry - challengeon 21-04-4687Iheyzxv [Mass/Vol] 3.3 g/dLLow3.4-5.0Fostoria City HospitalCalcium [Mass/Vol]8.7 mg/dL 8.5-10.1FOhioHealth Grady Memorial HospitalChloride [Moles/Vol]104 mmol/L98-107 Fostoria City HospitalCO2 [Moles/Vol]26.1 mmol/L21.0-32.0Fostoria City HospitalCreatinine [Mass/Vol]1.72 mg/dLHigh0.70-1.30Fostoria City HospitalGFR/1.73 sq M.predicted MDRD (S/P/Bld) [Vol rate/Area]50 mL/min/{1.73_m2}Low>=60Fostoria City HospitalGlucose [Mass/Vol]114 mg/hZYcch58-363WiazeagcgFostoria City HospitalMagnesium [Mass/Vol]1.5 mg/dLLow 1.8-2.4FOhioHealth Grady Memorial HospitalPotassium [Moles/Vol]4.7 mmol/L3.5-5.1 [facility] Hospitalodium [Moles/Vol]138 mmol/F214-154KuijucpflFostoria City HospitalUrate [Mass/Vol]8.0 mg/dLHigh3.5-7.2FOhioHealth Grady Memorial HospitalUrea nitrogen [Mass/Vol]30.0 mg/dLHigh7.0-18.0Fostoria City HospitalUrea nitrogen/Creatinine [Mass ratio]17.4 mg/mgFostoria City HospitalLaboratory - Urinalysison 28-07-4912Sqoxpqz (U) [Mass/Vol]12.6 mg/dLHigh<=11.9Fostoria City HospitalNo Panel Informationon 26-30-4400Jmjqz Random Gavfdpflqh90.13 mg/dL20.00-300.00Fostoria City HospitalInterpretation and review of laboratory resultsAbnoAllegheny Valley HospitalCLINISYNCNOMS HealthcarePhosphorus Level3.2 mg/dL2.6-4.7FHocking Valley Community Hospitalerum or plasma anion gap determinationon [id number] gap [Moles/Vol]12.6 mmol/LFOhioHealth Grady Memorial HospitalUrine protein/creatinine ratioon 02-05-5468Flyrjib/Creatinine (U) [Ratio]0.16Fostoria City HospitalBasic Metabolic Panelon 37-99-8766Cwhrw gap [Moles/Vol]9 mmol/L5 - 15 mmol/[facility] SystemCalcium [Mass/Vol]9.5 mg/dL8.5 - 10.5 mg/dLCommunity Memorial HospitalChloride [Moles/Vol]105 mmol/L98 - 109 mmol/L [facility] SystemCO2 [Moles/Vol]25 mmol/L22 - 32 mmol/LProMedMercy Health Tiffin Hospital SystemCreatinine [Mass/Vol]1.60 mg/dLHigh0.60 - 1.30 mg/dLCommunity Memorial HospitalComment on above:METHOD TRACEABLE TO [facility]DLESEX [facility]PITAL STANDARDeGFR (CKD-EPI)non-race rpxpiivcd02Uyb[address] [place], [place] [address]Comment on above: Reported eGFR is based on the CKD-EPI 2020 equation that does not use a race coefficient. Glucose [Mass/Vol]104 mg/tDGgqm46 - 99 mg/dLCommunity Memorial Hospital Interpretation and review of laboratory resultsAbnoPrime Healthcare Services System Potassium [Moles/Vol]4.2 mmol/L3.5 - 5.0 mmol/LProMedica Health SystemSodium [Moles/Vol]139 mmol/L134 - 146 mmol/LProMedica Health SystemUrea nitrogen [Mass/Vol]31 mg/dLHigh5 - 23 mg/dLSSM Health [facility] CBC AUTO DIFFon 50-22-3664NGNI #0.1 103/ulNormal0.0-0.1The [facility] Comment on above:Performed By: #### CBC #### [facility] [address] [address] [address] Yilan ChangBasophils/100 WBC (Bld)0.9 %Normal0.2-2.0The [facility] Comment on above:Performed By: #### CBC #### [facility] [address] [place] [address] Dr. Lavonne Bell #0.4 103/ulNormal0.0-0.7The [facility] OhioComment on above: Performed By: #### CBC #### [facility] [address] [place] [address] Dr. Lavonne Elizabethosinophils/100 WBC (Bld)4.5 %Normal0.9-7.0The [facility] Comment on above:Performed By: #### CBC #### [facility] [address] [place] [address] Dr. Lavonne Elizabethrythrocyte distribution width (RBC) [Ratio]13.4 %Oovrft51.0-15.0 The [facility] OhioComment on above:Performed By: #### CBC #### [facility] [address] [place] [address] Dr. Lavonne TinocoHematocrit (Bld) [Volume fraction]45.0 %Kmpqzt68.0-54.0The [facility] OhioComment on above:Performed By: #### CBC #### [facility] [address] [place] [address] Dr. Lavonne TinocoHemoglobin (Bld) [Mass/Vol]15.1 g/fSIimvwt66.0-18.0The [facility] OhioComment on above:Performed By: #### CBC #### [facility] [address] [place] [address] Dr. Lavonne Hill #0.04 10e3/ulCritically high0.00-0.03The [facility] Comment on above:Performed By: #### CBC #### [facility] [address] [place] [address] Dr. Lavonne Hill %0.4 %Normal0.0-0.5The [facility] OhioComment on above: Performed By: #### CBC #### [facility] [address] [place] [address] Dr. Lavonne Portillo #2.0 103/ulNormal1.2-3.8The [facility] OhioComment on above:Performed By: #### CBC #### [facility] [address] [place] [address] Dr. Laovnne Hahocytes/100 WBC (Bld)21.6 %Zsgqph88.5-60.0The [facility] OhioComment on above:Performed By: #### CBC #### [facility] [address] [place] [address] Dr. Lavonne Douglas DIFF REQNONormalThe [facility] OhioComment on above: Performed By: #### CBC #### [facility] [address] [place] [address] Dr. Lavonne Rutherford (RBC) [Entitic mass]32.7 kgIdcdmz57.9-34.0The [facility] OhioComment on above:Performed By: #### CBC #### [facility] [address] [place] [address] Dr. Lavonne Rutherford (RBC) [Mass/Vol]33.6 g/rNLvivpk23.9-35.2The [facility] OhioComment on above:Performed By: #### CBC #### [facility] [address] [place] [address] Dr. Lavonne Rutherford (RBC) [Entitic vol]97.4 fLCritically high80.0-94.0The [facility] OhioComment on above:Performed By: #### CBC #### [facility] [address] [place] [address] Dr. Lavonne Askew #0.6 103/ulNormal0.3-0.8The [facility] OhioComment on above:Performed By: #### CBC #### [facility] [address] [place] [address] Dr. Lavonne Keatingocytes/100 WBC (Bld)6.0 %Normal1.7-12.0The [facility] Comment on above:Performed By: #### CBC #### [facility] [address] [place] [address] Dr. Lavonne KnightUT #6.3 103/ulNormal1.4-6.5The [facility] OhioComment on above:Performed By: #### CBC #### [facility] [address] [place] [address] Dr. Lavonne Knightutrophils/100 WBC (Bld)66.6 %Vremab75.0-75.0Wexner Medical CenterComment on above:Performed By: #### CBC #### [facility] [address] [place] [address] Dr. Lavonne TinocoPlatelet mean volume (Bld) [Entitic vol]10.7 fLNormal9.5-13.5The [facility] OhioCommclaren [facility] region on above:Performed By: #### CBC #### [facility] [address] [place] [address] Dr. Lavonne TinocoPLT300 103/xzHweesp981-535Kmh [facility] OhioCommclaren [facility] region on above: Performed By: #### CBC #### [facility] [address] [place] [address] Dr. Lavonne TinocoRBC4.62 106/ulCritically low4.70-6.10The [facility] OhioCommclaren [facility] region on above:Performed By: #### CBC #### [facility] [address] [place] [address] Dr. Lavonne TinocoWBC9.4 103/ulNormal4.0-11.0Wexner Medical CenterCommclaren bay region on above: Performed By: #### CBC #### [facility] [address] [place] [address] Dr. Lavonne TinocoFREE T4on 05-60-9082Ozkt T4 [Mass/Vol]0.90 ng/dLNormal0.76-1.46 [facility] on above:Performed By: #### CMP, TSH, LIPID #### [facility] [address] [place] [address] Dr. Lavonne TinocoLIPID PROFILEon 14-47-5058AGCA-HDL RATIO NORMSEE BELOWNoWhite HospitalCommclaren bay region on above:Result Comment: 3.3 - 4.4 LOW RISK 4.4 - 7.1 AVERAGE RISK 7.1 - 11.0 MODERATE RISK >11.0 HIGH RISKPerformed By: #### CMP, TSH, LIPID #### [facility] [address] [place] [address] Dr. Lavonne TinocoCholesterol [Mass/Vol]207 mg/dLCritically high<=200The [facility] on above:Performed By: #### CMP, TSH, LIPID #### [facility] [address] [place] [address] Dr. Lavonne Camargoesterol in HDL [Mass/Vol]37 mg/dLCritically hri36-50YawWexner Medical CenterCommclaren bay region on above:Performed By: #### CMP, TSH, LIPID #### [facility] [address] [place] [address] Dr. Lavonne TinocoCholesterol in LDL [Mass/Vol]143.8 mg/dLProtestant Deaconess Hospital on above:Performed By: #### CMP, TSH, LIPID #### [facility] [address] [place] [address] Dr. Lavonne Camargoesterzoran.total/Cholesterol in HDL [Mass ratio]5.6 {ratio} NormalPremier Health Miami [facility] Hospital on above:Performed By: #### CMP, TSH, LIPID #### [facility] [address] [place] [address] Dr. Lavonne South NORMAL> or = 60 mg/dl - LOW CARDIOVASCULAR RISK <40 mg/dl - HIGH CARDIOVASCULAR RISKProtestant Deaconess Hospital on above:Performed By: #### CMP, TSH, LIPID #### [facility] [address] [place] [address] Dr. Lavonne TinocoLDL CALC NORMALSEE BELOWGrant HospitalCommclaren bay region on above:Result Comment: <100 mg/dl OPTIMAL 100 - 129 mg/dl NEAR OR ABOVE OPTIMAL 130 - 159 mg/dl BORDERLINE HIGH 160 - 189 mg/dl HIGH >190 mg/dl VERY HIGH Performed By: #### CMP, TSH, LIPID #### [facility] [address] [place] [address] Dr. Lavonne TinocoTriglyceride [Mass/Vol]131 mg/dLNormal<=150The [facility] Comment on above:Performed By: #### CMP, TSH, LIPID #### [facility] [address] [address] [address] Lavonne TinocoVLDL CALC26.2 mg/dLNormalThe [facility] OhioComment on above: Performed By: #### CMP, TSH, LIPID #### [facility] [address] [address] [address] Lavonne TinocoPROF 14(COMP METB)on 97-32-0313Pdxpraq [Mass/Vol]3.6 g/dLNormal 3.4-5.0The [facility] OhioComment on above:Performed By: #### CMP, TSH, LIPID #### [facility] [address] [place] [address] Dr. Lavonne TinocoAlbumin/Globulin [Mass ratio]1.0 {ratio}NormalThe [facility] OhioComment on above:Performed By: #### CMP, TSH, LIPID #### [facility] [address] [address] [address] Lavonne Rodas [Catalytic activity/Vol]85 U/RWdolnp82-519Sed Grant Hospitalment on above:Performed By: #### CMP, TSH, LIPID #### [facility] [address] [place] [address] Dr. Lavonne Yepez [Catalytic activity/Vol]33 U/GLporgj19-32Cra [facility] OhioComment on above:Performed By: #### CMP, TSH, LIPID #### [facility] [address] [address] [address] Lavonne Albrecht gap [Moles/Vol]9.2 mmol/LNormalThe [facility] OhioCommclaren [facility] region on above:Performed By: #### CMP, TSH, LIPID #### [facility] [address] [place] [address] Dr. Lavonne Cota [Catalytic activity/Vol]17 U/FSxggxb20-01Gvl [facility] OhioComment on above:Performed By: #### CMP, TSH, LIPID #### [facility] [address] [address] [address] Lavonne TinocoBilirubin [Mass/Vol]0.5 mg/dLNormal0.2-1.0The [facility] Comment on above:Performed By: #### CMP, TSH, LIPID #### [facility] [address] [address] [address] Lavonne TinocoCalcium [Mass/Vol]8.5 mg/dLNormal8.5-10.1The [facility] Comment on above:Performed By: #### CMP, TSH, LIPID #### [facility] [address] [address] [address] Lavonne TinocoChloride [Moles/Vol]106 mmol/ZFcoetv94-348Eft [facility] Comment on above:Performed By: #### CMP, TSH, LIPID #### [facility] [address] [place] [address] Dr. Lavonne TinocoCO2 [Moles/Vol]31.3 mmol/DXfyfho24.0-32.0The [facility] Comment on above:Performed By: #### CMP, TSH, LIPID #### [facility] [address] [address] [address] Lavonne TinocoCreatinine [Mass/Vol]1.06 mg/dLNormal0.70-1.30The [facility] OhioComment on above:Performed By: #### CMP, TSH, LIPID #### [facility] [address] [place] [address] Dr. Lavonne ElizabethGFR-AF QATARI>60Normal>=60The [facility] OhioComment on above:Performed By: #### CMP, TSH, LIPID #### [facility] [address] [address] [address] Lavonne ElizabethGFR-NON AF QATARI>60Normal>=60The [facility] OhioComment on above:Performed By: #### CMP, TSH, LIPID #### [facility] [address] [place] [address] Dr. Lavonne TinocoGlobulin (S) [Mass/Vol]3.6 g/dLNormalThe Mansfield HospitalComment on above:Performed By: #### CMP, TSH, LIPID #### [facility] [address] [address] [address] Lavonne TinocoGlucose [Mass/Vol]101 mg/fWObtsex29-887HrwWexner Medical Center Comment on above:Performed By: #### CMP, TSH, LIPID #### [facility] [address] [place] [address] Dr. Lavonne TinocoPotassium [Moles/Vol]3.5 mmol/LNormal3.5-5.1The [facility] Comment on above:Performed By: #### CMP, TSH, LIPID #### [facility] [address] [place] [address] Dr. Lavonne TinocoProtein [Mass/Vol]7.2 g/dLNormal6.4-8.2[facility] Comment on above:Performed By: #### CMP, TSH, LIPID #### [facility] [address] [place] [address] Dr. Lavonne TinocoSodium [Moles/Vol]143 mmol/GRaozmn590-021CwfWexner Medical Center Comment on above:Performed By: #### CMP, TSH, LIPID #### [facility] [address] [place] [address] Dr. Lavonne TinocoUrea nitrogen [Mass/Vol]21.0 mg/dLCritically high7.0-18.0W[facility]ner Medical CenterComment on above:Performed By: #### CMP, TSH, LIPID #### [facility] [address] [place] [address] Dr. Lavonne Rene nitrogen/Creatinine [Mass ratio]19.8 mg/mgNoWhite HospitalComment on above:Performed By: #### CMP, TSH, LIPID #### [facility] [address] [place] [address] Dr. Lavonne Meyer 04-24-1302OYX9.947 uIU/mLNormal0.358-3.740Wexner Medical CenterComment on above:Performed By: #### CMP, TSH, LIPID #### [facility] [address] [address] [address] Lavonne Massey RANDOM W/MICROSCOPICon 15-58-8284MGLYPGMNLGLJ SEENNormalNONE SEENWexner Medical CenterComment on above:Performed By: #### UAMIC #### [facility] [address] [address] [address] Lavonne TinocoBilirubin Ql (U)NegativeNormalNEGATIVEWexner Medical Center Comment on above:Performed By: #### UAMIC #### [facility] [address] [address] [address] Lavonne TinocoCASTNONE SEENNormalNONE SEENWexner Medical CenterComment on above:Performed By: #### UAMIC #### [facility] [address] [address] [address] Lavonne TinocoClarity (U)CLEARNormalCLEARWexner Medical CenterComment on above: Performed By: #### UAMIC #### [facility] [address] [address] [address] Lavonne TinocoColor (U)YELLOWNormalYELLOWWexner Medical CenterComment on above: Performed By: #### UAMIC #### [facility] [address] [place] [address] Dr. Lavonne TinocoCrystals LM Nom (Urine sed)NONE SEENNormalNONE SEENWexner Medical CenterComment on above:Performed By: #### UAMIC #### [facility] [address] [address] [address] Banerjee ChangEpithelial cells LM Ql (Urine sed)FEWAbnormalNONE SEEN /RAREWexner Medical CenterComment on above:Performed By: #### UAMIC #### [facility] [address] [address] [address] Lavonne TinocoGlucose Ql (U)NegativeNormalNEGATIVEWexner Medical CenterComment on above:Performed By: #### UAMIC #### [facility] [address] [address] [address] Lavonne TinocoHemoglobin Ql (U)NegativeNormalNEGATIVEWexner Medical Center Comment on above:Performed By: #### UAMIC #### [facility] [address] [address] [address] Lavonne Garza Ql (U)NegativeNormalNEGATIVEThe [facility] OhioComment on above:Performed By: #### UAMIC #### [facility] [address] [address] [address] Lavonne TinocoLEUKOCYTESTRACEAbnormalNEGATIVEThe Mansfield HospitalComment on above:Performed By: #### UAMIC #### [facility] [address] [place] [address] Dr. Lavonne FlahertyCOUSNONMichelle SEENNormalNONE SEENWexner Medical CenterComment on above:Performed By: #### UAMIC #### [facility] [address] [place] [address] Dr. Lavonne Cline Ql (U)NegativeNormalNEGATIVEThe [facility] OhioComment on above:Performed By: #### UAMIC #### [facility] [address] [place] [address] Dr. Lavonne TinocopH (U)6.0 [pH]Normal5-9The [facility] OhioComment on above: Performed By: #### UAMIC #### [facility] [address] [place] [address] Dr. Lavonne TinocoRBCNCHRISTAL SEENAbnormal0-2The [facility] OhioComment on above: Performed By: #### UAMIC #### [facility] Laboratory [address] [place] [address] Dr. Lavonne TinocoSPEC GRAVITY1.530Ttusck0.005-<=1.025The [facility] OhioComment on above:Performed By: #### UAMIC #### [facility] [address] [place] [address] Dr. Lavonne Massey PROTEINTRACENormalNEGATIVE/ TRACEThe Mansfield HospitalComment on above:Performed By: #### UAMIC #### [facility] [address] [place] [address] Dr. Lavonne Blasbillisbethgen Qn (U)2.0 {Erick'U}/dLAbnormal0.2 - 1.0The [facility] OhioComment on above:Performed By: #### UAMIC #### [facility] [address] [place] [address] Dr. Lavonne TinocoWBC0-2AbnormalNONE SEENThe [facility] OhioComment on above: Performed By: #### UAMIC #### [facility] [address] [place] [address] Dr. Lavonne TinocoNM STRESS/REST MULTIon [id number] STRESS/REST MULTIPatient: ABRAM GUILLAUME Exam Date: 04/04/2022 : 1965 Gender:M Ordering : ROSI PEPPER [facility] Admission #: [id number] Family : Order #: [id number] CLICK HERE TO VIEW EXAM RADIOLOGY REPORT [...] by: Cris Kline MD on 04/04/2022 at 13:[address] [place] [address] ECHOCARDIO M/2D COMPLETEon 97-50-2557QEEPHATDBQ M/2D COMPLETEPatient: ABRAM GUILLAUME Exam Date: 02/27/2022 : 1965 Gender:M Ordering : ROSI [facility] Admission #: [id number] Family : Order #: [id number] CLICK HERE TO VIEW EXAM ECHOCARDIOGRAM REPORT [...] Area(A4C): 21.60 cm2 Left Atrium Systolic Volume(A2C): 96984 mm3 Left Atrium Systolic Volume(A4C): 71378 mm3 Mitral Valve MV E to A [...] by: Dylan Peck M.D. on 02/28/2022 at 11:[address] [id number] Department of Radiology [address] [place] [id number] Patient Name: ABRAM GUILLAUME : 1965 Sex: M Age: Race: White Pt. Location: Patient Status: D Ordered Date: 01/11/2022 9:05:00 AM Completed Date: 01/11/2022 09:13 AM Requesting Provider: RON HAMILTON Attending Provider: RON HAMILTON Report Copy To: Signs & Symptoms: M25.572 Pain in left ankle and joints of left foot I10 History: [place] Comments: Views (X-RAY, ANKLE): AP, Lateral, Mortise [...] above Electronically signed: Violeta Wood. Transcribed by: [email or web address], User Resident: Electronically Signed by: VIOLETA WOOD @ 01/12/2022 03:[address] [facility] HospitalComment on above:Order Comment: Views (X-RAY, ANKLE): AP, Lateral, Mortise , Weight Bearing?: YGLYCOHEMOGLOBIN A1Con 52-41-1377CGF RECOMMENDATIONADA THERAPEUTIC TARGET 6.0 - 7.0 ACTION SUGGESTED > 7.0NoWhite HospitalComment on above:Performed By: #### A1C #### [facility] [address] [place] [address] Dr. Lavonne TinocoGlucose [Mass/Vol]100 mg/dLNoWhite HospitalComment on above:Performed By: #### A1C #### [facility] [address] [address] [address] Lavonne TinocoHbA1c (Bld) [Mass fraction]5.1 %Normal<=6.0[facility] Comment on above:Performed By: #### A1C #### [facility] [address] [place] [address] Dr. Lavonne TinocoMAGNESIUMon 21-22-9554Hkcvitcpf [Mass/Vol]1.7 mg/dLNormal1.6-2.3 The [facility] OhioComment on above:Performed By: #### MG, BMP #### [facility] [address] [place] [address] Dr. Lavonne TinocoPROF CHEM 8 (BAS METB)on 99-07-1072Ujngu gap [Moles/Vol]12.3 mmol/LNormalThe [facility] OhioComment on above:Performed By: #### MG, BMP #### [facility] [address] [place] [address] Dr. Lavonne TinocoCalcium [Mass/Vol]8.7 mg/dLNormal8.5-10.1[facility] Comment on above:Performed By: #### MG, BMP #### [facility] [address] [place] [address] Dr. Lavonne TinocoChloride [Moles/Vol]107 mmol/PAzmymg53-218Uwb [facility] Comment on above:Performed By: #### MG, BMP #### [facility] [address] [place] [address] Dr. Lavonne TinocoCO2 [Moles/Vol]27.4 mmol/RYiwrco00.0-30.0The [facility] Comment on above:Performed By: #### MG, BMP #### [facility] [address] [place] [address] Dr. Lavonne TinocoCreatinine [Mass/Vol]1.50 mg/dLCritically high0.66-1.25The [facility] OhioComment on above:Performed By: #### MG, BMP #### [facility] [address] [address] [address] Lavonne ElizabethGFR-AF EAGLPLCH45 mL/min/1.08y9Rqxwmfqntz low>=60The [facility] OhioComment on above:Performed By: #### MG, BMP #### [facility] [address] [address] [address] Lavonne ElizabethGFR-NON AF XGHPDLWY78 mL/min/1.19p5Zwhvzwumcg low>=60The [facility] OhioComment on above:Performed By: #### MG, BMP #### [facility] [address] [address] [address] Lavonne TinocoGlucose [Mass/Vol]103 mg/tJSihbkb83-992Frf [facility] Comment on above:Performed By: #### MG, BMP #### [facility] [address] [address] [address] Lavonne TinocoPotassium [Moles/Vol]3.7 mmol/LNormal3.4-5.0[facility] Comment on above:Performed By: #### MG, BMP #### [facility] [address] [address] [address] Lavonne TinocoSodium [Moles/Vol]143 mmol/WZurgkp402-512HdjWexner Medical Center Comment on above:Performed By: #### MG, BMP #### [facility] [address] [address] [address] Lavonne TinocoUrea nitrogen [Mass/Vol]17.0 mg/dLNormal7.0-18.0The [facility] OhioComment on above:Performed By: #### MG, BMP #### [facility] [address] [address] [address] Lavonne TinocoUrea nitrogen/Creatinine [Mass ratio]11.3 mg/mgNoalThDetwiler Memorial HospitalComment on above:Performed By: #### MG, BMP #### [facility] [address] [place] [address] Dr. Lavonne Tinoco Vital Signs Date TimeVital SignValuePerforming TdqpedumhJvadipvx16-10-3813 10:18-0400Body qnavjw630.3 cmMohelen Kumar MD Work Phone: 1([phone])[facility]10-30-2025 10:18-0400Body mass index (BMI) [Ratio]41.64 kg/a3LpjlzqhRobert Kumar MD Work Phone: 1(981)[facility]10-30-2025 10:18-0400Body nqmqbi289.91 kgRobert Kumar MD Work Phone: 1(607)[facility]10-30-2025 10:18-0400Diastolic blood qyxmrfog388 mm[Hg]Robert Kumar MD Work Phone: 1(740)[facility]10-30-2025 10:180400Systolic blood bumpmayw883 mm[Hg]Robert Kumar MD Work Phone: 1(824)[facility]10-20-2025 09:27-0400Body epunsx568.26 cmLisa Aichholz CONTACT CENTER REP-C Work Phone: 1(665)673-[address] [place], [place] 7654810-20-2025 09:27-0400 Body mass index (BMI) [Ratio]41.5 kg/m2Lisa Aichholz CONTACT C[facility] REP-C Work Phone: 1([phone])900-[address] [place], [place] [address]65[address]10-20-2025 09:27-0400 Body xigcjqyiglo50.8 [degF]Pepper Aichholz [facility]TACT [facility] REP-C Work Phone: [phone])979-[address] [place], [place] 765[address]10-20-2025 09:27-0400 Body imheca850.68 kgLisa Aichholz [facility]TACT C[facility] REP-C Work Phone: 1(199)399-[address] [place], [place] [address]65[address]10-20-2025 09:27-0400 Diastolic blood gieglxrd742 mm[Hg]Pepper Aichholz [facility]TACT [facility] REP-C Work Phone: 1(997)913-[address] [place], [place] 7654810-20-2025 09:27-0400 Heart rate79 /minLisa Aichholz [facility]TACT C[facility] REP-C Work Phone: [phone] [place], [place] [address]65[address]10-20-2025 09:27-0400 Respiratory rate22 /minLisa Aichholz CONTACT C[facility] REP-C Work Phone: [facility]10-20-2025 09:27-0400 SaO2% (BldA) [Mass fraction]94 %Pepper Serratosrinivasa CONTACT C[facility] REP-C Work Phone: [facility]10-20-2025 09:27-0400 Systolic blood pxhaggmi794 mm[Hg]Pepper Serratosrinivasa CONTACT C[facility] REP-C Work Phone: [facility]10-13-2025 10:04-0400 Body .[address]10-13-2025 10:04-0400Body mass index (BMI) [Ratio]39.87 kg/m[address]10-13-2025 10:04-0400 Body ejwpbe893.[address]08-14-2025 08:25-0400Body mass index (BMI) [Ratio]39.67 kg/m2Pepper Javierpricillasrinivasa CONTACT CENTER REP Work Phone: [facility] HospitalYaekyngpbd47-87-9278 08:25-0400Body temperature 97.81 [degF]Pepper Serratosrinivasa CONTACT CENTER REP Work Phone: [facility] HospitalGkdlgkdkzd40-08-6934 08:25-0400Body .84 kgPepper Javierpricillasrinivasa CONTACT CENTER REP Work Phone: [facility] HospitalLouryywtwu52-37-8612 08:25-0400Diastolic blood xetowzvh79 mm[Hg]Pepper Serratosrinivasa CONTACT CENTER REP Work Phone: [facility] HospitalJnpjvbhjdi26-50-3559 08:25-0400Heart rate95 /min Pepper Carlie CONTACT CENTER REP Work Phone: [address] [address]Dxqkvdzynj69-89-9905 08:25-0400Respiratory rate22 /minLi Carlie CONTACT CENTER REP Work Phone: [address] [address]Somfbnkjtm49-05-1108 08:25-5863OiU1% (BldA) [Mass fraction]92 %Pepper Carlie [facility]TA[facility] REP Work Phone: [address] [address]Mylsgyefin83-00-8891 08:25-0400Systolic blood rylekaeu226 mm[Hg]Pepper Sexton CONTACT C[facility] REP Work Phone: [facility] HospitalBtunlxutsp93-26-3658 08:46-0400Body icbzwz693.3 cmRobert Kumar MD Work Phone: 1(937)[facility]08-07-2025 08:46-0400Body mass index (BMI) [Ratio]39.13 kg/c0LipknzvRobert Kumar MD Work Phone: 1(365)[facility]08-07-2025 08:46-0400Body bmghmu578.2 kgRobert Kumar MD Work Phone: 1(726)[facility]08-07-2025 08:46-0400Diastolic blood bwwyjvpa237 mm[Hg]Robert Kumar MD Work Phone: 1(900)[facility]08-07-2025 08:46-0400Heart rate 97 /minMohelen Kumar MD Work Phone: 1(165)[facility]08-07-2025 08:46-9835FjN1% (BldA) [Mass fraction]91 %Robert Kumar MD Work Phone: 1(147)[facility]08-07-2025 08:46-0400Systolic blood ufvvkhmy356 mm[Hg]Robert Kumar MD Work Phone: 1(025)[facility]07-16-2025 08:20-0400Body mass index (BMI) [Ratio]38.4 kg/m2Pepper Sexton CON[facility]CT C[facility] REP Work Phone: [facility] HospitalQquegjeqzq12-27-4474 08:20-0400Body temperature 97.81 [degF]Pepper Sexton CONTACT C[facility] REP Work Phone: [facility] HospitalUhpthupepp10-21-1853 08:20-0400Body sjkwoj749.94 kgPepper Sexton CONTACT CENTER REP Work Phone: [facility] HospitalOpoqirigir48-54-8714 08:20-0400Diastolic blood otcgyvny708 mm[Hg]Pepper Aichholz CONTACT C[facility] REP Work Phone: [facility] HospitalIdxfcsfprx62-62-0262 08:20-0400Heart rate97 /min Pepper Aichholz [facility] REP Work Phone: [facility] HospitalRyomibmzjp20-71-6536 08:20-0400Respiratory rate18 /minLisa Aichholz CONTACT CENTER REP Work Phone: [facility] HospitalKtloewdzox95-70-0827 08:20-7991XdX9% (BldA) [Mass fraction]93 %Pepper Aichholz CONTACT C[facility] REP Work Phone: [facility] HospitalOjalnicmbn92-04-5245 08:20-0400Systolic blood ovyappzb540 mm[Hg]Pepper Aichholz CONTACT C[facility] REP Work Phone: [facility] HospitalOnpnkkyvwm39-76-1787 14:45-0400Diastolic blood aqhltkny023 mm[Hg]Pepper Aichholz Work Phone: 1(491)[address]07-15-2025 14:45-0400 Heart lbbc566 /minLisa Aichholz Work Phone: 1(603)[address]07-15-2025 14:45-0400 Systolic blood ssijblls848 mm[Hg]Pepper Aichholz Work Phone: 1(037)[address]07-15-2025 14:39-0400 Body whawbw425.21 kgLisa Aichholz Work Phone: 1(187)2-[address] [place], [place] [address]7-15-2025 14:39-0400 Respiratory rate18 /minLisa Aichholz Work Phone: 1(333)108-[address] [place], [place] [address]7-15-2025 14:39-0400 SaO2% (BldA) [Mass fraction]96 %Pepper Aichholz Work Phone: 1(452)[address]07-10-2025 09:49-0400 Body zguhps098.3 cmMohamed José CARTAGENA Work Phone: 1(293)[facility]07-10-2025 09:49-0400Body mass index (BMI) [Ratio]37.66 kg/v8LlwmagqRobert Kumar MD Work Phone: 1(230)[facility]07-10-2025 09:49-0400Body eoxewh063.67 kgRobert Kumar MD Work Phone: 1(102)[facility]07-10-2025 09:49-0400Diastolic blood yifnxpyy582 mm[Hg]Robert Kumar MD Work Phone: 1(961)[facility]07-10-2025 09:49-0400Heart rate 91 /minRobert Kumar MD Work Phone: 1(885)[facility]07-10-2025 09:49-0400Systolic blood oafceptc387 mm[Hg]Robert Kumar MD Work Phone: 1(765)[facility]06-16-2025 08:54-0400Diastolic blood onwbgxem88 mm[Hg]Pepper Carlie CONTACT C[facility] REP Work Phone: 1(181)990-[address] [place], [place] [address]Hbfyetvggf84-55-9113 08:54-0400Systolic blood atvocqxw995 mm[Hg]Pepper Aichholz CONTACT C[facility] REP Work Phone: [facility] HospitalYbqqqsqact63-93-9805 08:26-0400Body mass index (BMI) [Ratio]38.28 kg/m2Lisa Aichholz CONTACT C[facility] REP Work Phone: [facility] HospitalNiwpfznijr01-10-7434 08:26-0400Body temperature 98.1 [degF]Pepper Javierhayleenz CONTACT CENTER REP Work Phone: 1(565)791-[address] [place], [place] [address]Ojzcwjfgmc26-55-4770 08:26-0400Body ocfdth800.57 kgLisa Aichholz CONTACT C[facility] REP Work Phone: [facility] HospitalHmrderbyaq58-08-3048 08:26-0400Heart rate76 /min Pepper Javierhholz CON[facility] REP Work Phone: [facility] HospitalUbeuhlewac56-15-8767 08:26-0400Respiratory rate20 /minLisa Aichholz CONTACT CENTER REP Work Phone: 1(419)547-[address] [place], [place] [address]Ugfpoojqop10-23-8063 08:26-6103VeW6% (BldA) [Mass fraction]94 %Pepper Sexton [facility] REP Work Phone: [facility] HospitalLfvxgmdhgr74-13-9607 16:45-0400Body mass index (BMI) [Ratio]38.16 kg/m2Pepper Sexton [facility] REP Work Phone: [facility] HospitalIumwlboqlw73-91-0886 16:45-0400Body temperature 98.01 [degF]Pepper Sexton [facility] REP Work Phone: [facility] HospitalDkuxgrhdwi15-05-7698 16:45-0400Body qhqycv819.21 kgLisa Sexton [facility]TACT C[facility] REP Work Phone: [facility] HospitalApacxccrbd97-92-8303 16:45-0400Diastolic blood kceckzvf05 mm[Hg]Pepper Sexton [facility] REP Work Phone: [facility] HospitalEzfguzpqtg24-92-7830 16:45-0400Heart dlee771 /min Pepper Sexton [facility] REP Work Phone: [facility] HospitalQnpxfsxbpe23-81-8214 16:45-0400Respiratory rate22 /minLisa Sexton CONTACT C[facility] REP Work Phone: [facility] HospitalMoxxwssemg82-87-4943 16:45-4792EdV3% (BldA) [Mass fraction]94 %Pepper Sexton [facility] REP Work Phone: [facility] HospitalSurbuzsgyv58-43-3652 16:45-0400Systolic blood evknmmbs576 mm[Hg]Pepper Sexton CON[facility]CT C[facility] REP Work Phone: [facility] HospitalKjjeobegoe92-07-0014 09:06-0400Body yiwudg373.3 Juan F Velaz CONTACT C[facility] REP Work Phone: [facility] HospitalZtezyneiui79-08-2542 09:06-0400Body mass index (BMI) [Ratio]40.46 kg/m2Pepper Sexton [facility] REP Work Phone: [facility] HospitalFrsyuiaccn77-58-0451 09:06-0400Body temperature 97.81 [degF]Pepper Aichholz CONTACT C[facility] REP Work Phone: [facility] HospitalGwzzccvxef52-27-2835 09:06-0400Body zqasfs137.29 kgLisa Aichholz CONTACT C[facility] REP Work Phone: [facility] HospitalMmyssuezfm62-79-5563 09:06-0400Diastolic blood mudpkajk94 mm[Hg]Pepper Aichholz CONTACT C[facility] REP Work Phone: [facility] HospitalFdxeqdxrzr48-49-5418 09:06-0400Heart rate91 /min Pepper Aichholz CON[facility]CT C[facility] REP Work Phone: [facility] HospitalTaphcrybzs18-68-4056 09:06-0400Respiratory rate18 /minLisa Aichholz CONTACT C[facility] REP Work Phone: [facility] HospitalUdqaayywal27-60-0584 09:06-8120VwA9% (BldA) [Mass fraction]93 %Pepper Aichholz CONTACT C[facility] REP Work Phone: [facility] HospitalCytrdwwcyw18-64-6157 09:06-0400Systolic blood ilbnhjaf668 mm[Hg]Pepper Aichholz CONTACT C[facility] REP Work Phone: [facility] HospitalGurvziracd36-90-9208 13:45-0400Body ejbqmo517.26 cmLisa Aichholz Work Phone: 1(387)944-[address] [place], [place] 7[address]4803-12-2025 13:45-0400 Body mass index (BMI) [Ratio]41 kg/m2Lisa Aichholz Work Phone: 1(893)570-[address] [place], [place] [address]3-12-2025 13:45-0400 Body agxcze715.09 kgLisa Aichholz Work Phone: 1(557)887-[address] [place], [place] [address]3-12-2025 13:45-0400 Diastolic blood piphvfle71 mm[Hg]Pepper Aichholz Work Phone: 1(494)392-[address] [place], [place] [address]3-12-2025 13:45-0400 Heart rate89 /minLisa Aichholz Work Phone: 1(487)816-[address] [place], [place] [address]3-12-2025 13:45-0400 Respiratory rate18 /minLisa Rojelioholz Work Phone: [facility]03-12-2025 13:45-0400 SaO2% (BldA) [Mass fraction]95 %Pepper Serratoholz Work Phone: [facility]03-12-2025 13:45-0400 Systolic blood tyibyfot841 mm[Hg]Pepper Rojelioholz Work Phone: 1(243)[address]01-15-2025 09:05-0500 Body omsigi720.3 Juan F Serratoayleenz CONTACT CENTER REP Work Phone: 1(445)210-[address] [place], [place] [address]Kjcoukxqne92-91-0310 09:05-0500Body mass index (BMI) [Ratio]41.47 kg/m2Pepper Serratoholz CONTACT CENTER REP Work Phone: [facility] HospitalHfzyxjxwmt95-21-2662 09:05-0500Body temperature 97.81 [degF]Pepper Serratoayleenz CONTACT C[facility] REP Work Phone: [facility] HospitalHxqmnfhksf34-38-3941 09:05-0500Body ruxkyf593.37 kgLisa Serratoholz CONTACT CENTER REP Work Phone: [facility] HospitalMmdveilbmr48-28-0163 09:05-0500Diastolic blood kvpgwtih38 mm[Hg]Pepper Rojelioholz CONTACT C[facility] REP Work Phone: [facility] HospitalZmyowcmpwx24-09-6795 09:05-0500Heart rate92 /min Pepper Javierhholz [facility] C[facility] REP Work Phone: [facility] HospitalVnwdjjyngs40-30-2440 09:05-0500Respiratory rate22 /minLisa Javierhholz CONTACT CENTER REP Work Phone: [facility] HospitalRheteufqlj34-44-7609 09:05-2930JwH7% (BldA) [Mass fraction]96 %Pepper Rojelioholz CON[facility] C[facility] REP Work Phone: [facility] HospitalQsnnidummq01-48-9659 09:05-0500Systolic blood alrnwrki561 mm[Hg]Pepper Javierhholz CONTACT C[facility] REP Work Phone: [facility] HospitalCmwfbwnifp77-37-8424 09:05-0500Diastolic blood mm[Hg]Pepper Aichholz Work Phone: 1(580)[address]01-14-2025 09:05-0500 Heart rate88 /minLisa Aichholz Work Phone: 1(220)[address]01-14-2025 09:05-0500 Respiratory rate18 /minLisa Aichholz Work Phone: 1(013)[address]01-14-2025 09:05-0500 SaO2% (BldA) [Mass fraction]96 %Pepper Aichholz Work Phone: 1(027)[address]01-14-2025 09:05-0500 Systolic blood xykpwbur400 mm[Hg]Pepper Aichholz Work Phone: 1(276)[address] [place], [place] 8380901-14-2025 07:31-0500 Body tanivz485.8 cmLisa Aichholz Work Phone: 1(808)[address]01-14-2025 07:31-0500 Body fppyur224.66 kgLisa Aichholz Work Phone: 1(183)[address]10-17-2024 13:55-0400 Diastolic blood ziuuttup64 mm[Hg]Pepper Aichholz Work Phone: 1(925)[address]10-17-2024 13:55-0400 Heart rate74 /minLisa Aichholz Work Phone: 1(750)[address] [place], [place] 8380910-17-2024 13:55-0400 Respiratory rate18 /minLisa Aichholz Work Phone: 1(974)[address]10-17-2024 13:55-0400 SaO2% (BldA) [Mass fraction]100 %Pepper Aichholz Work Phone: 1(091)[address]10-17-2024 13:55-0400 Systolic blood osqiogju432 mm[Hg]Pepper Aichholz Work Phone: 1(363)851-[facility]10-17-2024 11:51-0400 Body btouiz964.26 cmLisa Aichholz Work Phone: 1(233)152[facility]10-17-2024 11:51-0400 Body immptyhdmzv99.6 [degF]Pepper Aichholz Work Phone: 1(598)[address]10-17-2024 11:51-0400 Body hxsaxr246.9 kgLisa Aichholz Work Phone: 1(057)[address]10-14-2024 09:44-0400 Body hoobmd580.3 Chiloisa Javierhholz CONTACT C[facility] REP Work Phone: [facility] HospitalHkgigmnswu79-51-8254 09:44-0400Body mass index (BMI) [Ratio]37.18 kg/m2Lisa Aichholz CONTACT C[facility] REP Work Phone: [facility] HospitalIwrpxqwluf02-16-2108 09:44-0400Body temperature 98.1 [degF]Pepper Aichholz CON[facility] REP Work Phone: [facility] HospitalYpuvkreqvw51-80-3091 09:44-0400Body vvskaw271.22 kgLisa Aichholz CONTACT C[facility] REP Work Phone: [facility] HospitalWbicwddtex21-15-9515 09:44-0400Diastolic blood drxovxrx43 mm[Hg]Pepper Aichholz CON[facility] C[facility] REP Work Phone: [facility] HospitalUlkssmsdsa01-87-6917 09:44-0400Heart rate79 /min Pepper Aichholz CONTA[facility] C[facility] REP Work Phone: [facility] HospitalTdxhyukrbo99-39-3930 09:44-0400Respiratory rate19 /minLisa Aichholz CONTACT C[facility] REP Work Phone: [facility] HospitalWunfnpelgv59-72-4166 09:44-6480YfL0% (BldA) [Mass fraction]93 %Pepper Aichholz CON[facility] C[facility] REP Work Phone: [facility] HospitalAcddgtbvsk97-37-5725 09:44-0400Systolic blood azyublzw955 mm[Hg]Pepper Carlie CONTACT C[facility] REP Work Phone: [facility] HospitalLnmmezofyb14-65-8735 08:39-0400Body mkubfa098.26 cmFostoria City Hospital10-02-2024 08:39-0400Body mass index (BMI) [Ratio]42.3 kg/s2YupoxucbjFostoria City Hospital10-02-2024 08:39-0400Body fnikmg752 kgFostoria City Hospital10-01-2024 08:50-0400Body height 175.26 cmFostoria City Hospital10-01-2024 08:50-0400Body mass index (BMI) [Ratio]42.3 kg/w1XfekeucbyFostoria City Hospital10-01-2024 08:50-0400 Body osumbdirpvl89.2 [degF][facility]10-01-2024 08:50-0400Body nxewlx057.89 kgFostoria City Hospital10-01-2024 08:50-0400Diastolic blood fwexxluc17 mm[Hg][facility] 06-23-2024 08:50-0400Heart rate91 /[facility] 06-23-2024 08:50-0400Respiratory rate18 /[facility] 06-23-2024 08:50-9569ZsA5% (BldA) [Mass fraction]93 %[facility]10-01-2024 08:50-0400Systolic blood wuiudmqc414 mm[Hg][facility]08-05-2024 08:35-0400Body bedlgp668.[address]08-05-2024 08:35-0400Body mass index (BMI) [Ratio]38.4 kg/m2Pmh [address] [place], [place] 7435208-05-2024 08:35-0400Body nfjeeo446.[address] [place], [place] 7435206-27-2024 09:37-0400Body eqyjig393.26 cmFostoria City Hospital 03-19-2024 09:37-0400Body mass index (BMI) [Ratio]39.4 kg/s8BirynzbemFostoria City Hospital06-27-2024 09:37-0400Body oqtkpmkhrpw59.8 [degF][facility]06-27-2024 09:37-0400Body .1 kgFostoria City Hospital06-27-2024 09:37-0400Diastolic blood zperljwj17 mm[Hg][facility]06-27-2024 09:37-0400Heart rate94 /minFostoria City Hospital06-27-2024 09:37-0400Respiratory rate20 /[facility]06-27-2024 09:37-3355EtJ4% (BldA) [Mass fraction]95 %[facility]06-27-2024 09:37-0400Systolic blood vbxoprdv467 mm[Hg] [facility] Encounters Encounter DateEncounter TypeCare ProviderFacilityStart: 07-22-2025 End: 68-54-8360Hnrdpt outpatient visit [facility] S[facility] MD Work Phone: [facility] FremontComment on above: 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 ([facility]) (Primary Dx)Start: 07-22-2025 End: 36-04-5978yefskaewmjOROROHNAurora Valley View [facility] Center Ambulatory PPGStart: 07-14-2025 End: 07-09-9238ocomdviihtMSQZKVJOchsner Medical Center HospitalStart: 07-12-2025 End: 79-78-6245qkdxhxgozqEehh J Aichholz NP-C Work Phone: -[facility] ClydeStart: 07-12-2025 End: 58-20-8374Ktxxbph encounter procedurePepper [facility] [place] Work Phone: Start: 07-08-2025 End: 27-71-6150Crpffmusoe and management of inpatientOchsner Medical Center HospitalStart: 07-05-2025 End: 36-38-6849pxayrvbqocJSKER M SOMMERSNorwalk Memorial Hospitaltart: 88-12-1475Rxqjvdrmj for other preprocedural examinationMOHAMED [facility] Orth[facility] Centertart: 07-05-2025 End: 19-98-3876Lptjzmx encounter procedurePm Pre-Admission Testing [address] [place] [address] - Pre AdmitComment on above:Preop examination (Primary Dx); Hypertension, unspecified type; HypomagnesemiaStart: 07-05-2025 End: 52-13-9455Xiqxoewooyime examination donePm83 Smith Streettart: 07-02-2025 End: 50-88-1807Kgijfl OnlyStepsayra [facility] [place] [facility] Comment on above:H/O prior ablation treatment (Primary Dx); 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 ([facility])Start: 45-32-2120Nyb-patient / Non-visitTang SMITHSt. [facility] Work Phone: Start: 54-72-0093Aft-patient / Non-visitTang Hamilton MDSkagit Regional Health Professional [facility] Work Phone: Start: 05-06-2025 End: 48-94-2775Ugxioz flowsheetPepper Sextno CONTACT CENTER REP Work Phone: noms CWM FMStart: 05-06-2025 End: 03-73-2189Fzalcf flowsheetPepper Sexton CONTACT CENTER REP Work Phone: noms CWM FMStart: 05-06-2025 End: 02-90-4338Hoeyivreq Result EncounterGeneric External Data ProviderNOMS External Department UnsolicitedStart: 49-17-0826Jch-patient / Non-visitTang Hamilton MDSkagit [facility] Work Phone: Start: 05-06-2025 End: 69-69-6037Rhzcjg outpatient visit 25 minutesLisa Sexton CONTACT CENTER REP Work Phone: noms CWM FMComment on above:Essential hypertension, benign (Primary Dx); Gastro-esophageal reflux disease without esophagitis; Morbid (severe) obesity due to excess calories ([facility]); Cigarette nicotine dependence without complication; Acute gout of left hand, unspecified cause; COPD with acute exacerbation (HCC); Restless legs syndromeStart: 05-06-2025 End: 95-31-8493wczzolpcfuNPLF AICHHOLZNot AvailableStart: 04-29-2025 End: 79-35-4285Jsrdix outpatient visit 25 minutesMohelen Kumar MD Work Phone: [facility] InsanemontComment on above: 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 ([facility]) (Primary Dx); Chronic deep vein thrombosis (DVT) of left thigh ([facility])Start: 04-29-2025 End: 61-73-0153bzeaicdfmcFBJLLPKRogers Memorial Hospital - [facility] PPGStart: 04-20-2025 End: 94-62-6436erdmoxbkizSFSPDKRNewberry County Memorial Hospital HospitalStart: 04-14-2025 End: 48-35-5707Jlrwcxlzu Result EncounterGeneric External Data ProviderNOMS External Department UnsolicitedStart: 04-14-2025 End: 57-17-3725Ltqaupqcj Result EncounterGeneric External Data ProviderNOMS External Department UnsolicitedStart: 04-13-2025 End: 42-93-7846Pmacvfumj Result EncounterLisa Carlie CONTACT CENTER REP Work Phone: noms External Department UnsolicitedStart: 04-13-2025 End: 54-10-3583Bhqthglsz Result EncounterLisa Carlie CONTACT CENTER REP Work Phone: noms External Department UnsolicitedStart: 04-13-2025 Non-patient / Non-visitTang Hamilton MD-[facility] Work Phone: Start: 04-07-2025 End: 93-46-9263Nmbscf flowsheetPepper Sexton CONTACT CENTER REP Work Phone: noms CWM FMStart: 04-07-2025 End: 98-65-5233Aqlmob flowsheetPepper Sexton CONTACT CENTER REP Work Phone: noms CWM FMStart: 04-07-2025 End: 66-76-5135Ssblgl outpatient visit 25 minutesPepper Sexton NP Work Phone: noms CWM FMComment on above:Essential hypertension, benign (Primary Dx); Morbid (severe) obesity due to excess calories (CMS-HCC); Gastro-esophageal reflux disease without esophagitis; 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); Fibromyalgia; Bronchitis; Acute gout of left hand, unspecified causeStart: 04-07-2025 End: 53-76-8533lwnhmadffyLTXM AICHHOLZNot AvailableStart: 04-06-2025 End: 37-72-9705huwxkmzsqdUtaj J Aichholz Work Phone: [facility] Work Phone: Start: 04-06-2025 End: 86-53-0615Pbdgsbt encounter Bernie Hamilton MD-[facility] Work Phone: Start: 04-01-2025 End: 97-64-5462Euoxfa outpatient visit 25 minutesRobert Kumar MD Work Phone: [facility] FremontComment on above: Chronic venous insufficiency (Primary Dx); Chronic deep vein thrombosis (DVT) of popliteal vein of left lower extremity (CMS-HCC); 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 ([facility])Start: 04-01-2025 End: 05-92-7395kosfujbwojTXKMVJF F OSMANThe [facility] Ambulatory PPGStart: 03-31-2025 End: 19-82-4975Isnjbojmh Result EncounterPepper Sexton NP Work Phone: noms External Department UnsolicitedStart: 03-31-2025 End: 13-09-8709Plqqihngk Result EncounterPepper Sexton NP Work Phone: noms External Department UnsolicitedStart: 03-17-2025 End: 64-21-5779Axvrpvlrk Result EncounterPepper Sexton CONTACT CENTER REP Work Phone: noms External Department UnsolicitedStart: 03-17-2025 End: 40-88-9815Omsiclrhl Result EncounterPepper Sexton CONTACT CENTER REP Work Phone: noms External Department UnsolicitedStart: 03-17-2025 End: 07-47-1391Mqwyen OnlyLisa Sexton CONTACT CENTER REP Work Phone: noms CWM FMComment on above:Electrolyte abnormality (Primary Dx)Start: 49-01-4418Dji-patient / Non-visitTang Hamilton MD-[facility] Work Phone: Start: 03-16-2025 End: 44-72-5426DswwruFnmy Aichholz CONTACT CENTER REP Work Phone: noms CWM FMComment on above:Atopic dermatitis, unspecified typeHypothyroidism, unspecified type ; Gastroesophageal reflux disease, unspecified whether esophagitis present; Essential hypertension, benignStart: 03-08-2025 End: 89-61-8574Vsxyhg flowsheetPepper Velaz CONTACT CENTER REP Work Phone: noms CWM FMStart: 03-08-2025 End: 83-96-1833Mymddc flowsNaif Velaz CONTACT CENTER REP Work Phone: noms CWM FMStart: 03-08-2025 End: 48-83-2115Sozckj outpatient visit 25 minutesLisa Sexton CONTACT CENTER REP Work Phone: noms CWM FMComment on above:Cellulitis of left lower extremity (Primary Dx); Essential hypertension, benign ; Left leg swelling; Morbid (severe) obesity due to excess calories (CMS-HCC); Chronic bronchitis, unspecified chronic bronchitis type (HCC); Restless legs syndrome; Atopic dermatitis, unspecified typeStart: 03-08-2025 End: 49-79-0759bfzodwvswcFWBP AICHHOLZNot AvailableStart: 02-17-2025 End: 34-02-6137Nazlrjgrpfnm care manage srvc 7 day dischargePepper Sexton CONTACT CENTER REP Work Phone: noms CWM FMComment on above:Cellulitis of left lower extremity (Primary Dx); Essential hypertension, benign (CMS/HCC); Morbid (severe) obesity due to excess calories (CMS/HCC); Hypomagnesemia; Cigarette nicotine dependence without complication; MARITZA (acute kidney injury) (CMS/HCC); Left leg swellingStart: 02-17-2025 End: 35-63-3481ouqlhmgfydWXPJCarline Duke AvailableStart: 02-07-2025 End: 77-62-2765Sqowlxnea Result EncounterGeneric External Data ProviderNOMS External Department UnsolicitedStart: 02-07-2025 End: 70-78-0232Lrvkxxiqv Result EncounterGeneric External Data ProviderNOMS External Department UnsolicitedStart: 01-06-2025 End: 32-58-4819Gixchr flowsNaif Sexton CONTACT CENTER REP Work Phone: noms CWM FMStart: 01-06-2025 End: 12-05-7828Zhndkl Bailey Sexton CONTACT CENTER REP Work Phone: noms CWM FMStart: 01-06-2025 End: 32-90-5203Umlwvv outpatient visit 25 minutesPepper Sexton CONTACT CENTER REP Work Phone: noms CWM FMComment on above:Essential hypertension, benign (CMS/HCC) (Primary Dx); Chronic kidney disease, stage 3a (HCC) (CMS/HCC); Gastro-esophageal reflux disease without esophagitis; Morbid (severe) obesity due to excess calories (CMS/HCC); Mixed hyperlipidemia (CMS/HCC); Hypomagnesemia; Screening for prostate cancer; Marijuana use; Hypothyroidism, unspecified type (CMS/HCC); FibromyalgiaStart: 01-06-2025 End: 78-27-1010vmfwdrzzhyPYMJCarline Duke AvailableStart: 12-02-2024 End: 71-17-0159ujymrriwtjJkpj J Aichholz Work Phone: [facility] Work Phone: Start: 12-02-2024 End: 40-74-6661Mbukwjb encounter procedureLisa Aichholz Work Phone: [facility] Nephrology [place] Work Phone: Start: 11-26-2024 End: 11-16-0975Baaastkkc Result EncounterGeneric External Data ProviderNOMS External Department UnsolicitedStart: 11-26-2024 End: 14-80-9329Qnslgzplf Result EncounterGeneric External Data ProviderNOMS External Department UnsolicitedStart: 11-24-2024 End: 67-03-6997Wpwcepkws Result EncounterGeneric External Data ProviderNOMS External Department UnsolicitedStart: 11-24-2024 End: 71-05-1020Iiotgvdvt Result EncounterGeneric External Data ProviderNOMS External Department UnsolicitedStart: 40-05-1395Rdb-patient / Non-visitLisa Aichholz Work Phone: [facility] Work Phone: Start: 11-05-2024 End: 21-06-0239Sovmcvwrd Result EncounterLisa Aichholz CONTACT CENTER REP Work Phone: noms External Department UnsolicitedStart: 11-05-2024 End: 71-54-6109Zdyouaryv Result EncounterLisa Aichholz CONTACT CENTER REP Work Phone: noms External Department UnsolicitedStart: 11-04-2024 End: 50-80-1190QffullDlmd Aichholz CONTACT CENTER REP Work Phone: noms CWM FMComment on above:Hypomagnesemia; Restless legs syndromeStart: 10-08-2024 End: 53-78-0347XuhcmrAzwy Aichholz CONTACT CENTER REP Work Phone: noms CWM FMComment on above:Hypothyroidism, unspecified type (CMS/HCC) (Primary Dx); HypomagnesemiaStart: 10-07-2024 End: 17-38-8449Zyviid flowsheetLisa Aichholz CONTACT CENTER REP Work Phone: noms CWM FMStart: 10-07-2024 End: 96-95-6996Tghmyo flowsheetPepper Serratoholz CONTACT CENTER REP Work Phone: noms CWM FMStart: 10-07-2024 End: 37-05-8666Fydufhafu Result EncounterPepper Serratosrinivasa CONTACT CENTER REP Work Phone: noms External Department UnsolicitedStart: 10-07-2024 End: 43-72-0363Axhpll outpatient visit 25 minutesPepper Serratosrinivasa CONTACT CENTER REP Work Phone: noms CWM FMComment on above:Essential [...] unspecified chronic bronchitis type (CMS/HCC)Start: 10-07-2024 End: 18-45-8502erevaaqfxiJQBU AICHHOLZNot AvailableStart: 64-88-6708Gen-patient / Non-visitPepper Sexton Work Phone: [facility] Work Phone: Start: 10-06-2024 End: 27-76-0933Yyhiuzccv to same day surgery centerPepper Sexton Work Phone: [facility] Work Phone: Start: 10-06-2024 End: 75-44-7468yxkatxfqbnMzpk J Aichholz Work Phone: [facility] Work Phone: Start: 09-28-2024 End: 98-78-5984Itmxnmrck Result EncounterLisa Aichholz CONTACT CENTER REP Work Phone: noms External Department UnsolicitedStart: 09-28-2024 End: 79-96-7857Vbhoduaih Result EncounterLisa Aichholz CONTACT CENTER REP Work Phone: noms External Department UnsolicitedStart: 09-28-2024 End: 97-13-8029MoyyniMcxp Aichholz CONTACT CENTER REP Work Phone: noms CWM FMComment on above:Hypomagnesemia (Primary Dx)Start: 09-14-2024 End: 58-03-8794NqgebhFcoc Aichholz CONTACT CENTER REP Work Phone: noms CWM FMComment on above:HypomagnesemiaStart: 09-14-2024 End: 82-31-2386VzgjqbJtrm Aichholz CONTACT CENTER REP Work Phone: noms CWM FMComment on above:FibromyalgiaStart: 09-04-2024 End: 82-67-6332Lnvxhn OnlyLisa Aichholz CONTACT CENTER REP Work Phone: noms CWM FMComment on above:Hypomagnesemia (Primary Dx)Start: 09-04-2024 End: 59-25-5054ZylwrxMjgo Aichholz CONTACT CENTER REP Work Phone: noms CWM FMComment on above:HypomagnesemiaStart: 72-43-0199Ekd-patient / Non-visitLisa Aichholz Work Phone: [facility] Gastroenterology Work Phone: Start: 07-09-2024 End: 26-11-1357Zljioslcw to same day surgery centerLisa Aichholz Work Phone: [facility] Work Phone: Start: 07-09-2024 End: 05-19-3230xqbheawrruPrtp J Aichholz Work Phone: [facility] Work Phone: Start: 07-06-2024 End: 99-94-0725Rbmuln tylorPepper Herrerapricillasrinivasa CONTACT CENTER REP Work Phone: noms CWM FMStart: 07-06-2024 End: 70-08-3670Brhdog tylorPepper Herrerapricillasrinivasa CONTACT CENTER REP Work Phone: noms CWM FMStart: 07-06-2024 End: 42-76-9049Bradhj outpatient visit 25 minutesLi Carlie CONTACT CENTER REP Work Phone: noms CWM FMComment on above:Essential hypertension, benign (CMS/HCC) (Primary Dx); Hypomagnesemia; Gastroesophageal reflux disease, unspecified whether esophagitis present; Obesity (BMI 30-39.9); Hypothyroidism, unspecified type (CMS/HCC); Needs flu shotStart: 07-06-2024 End: 38-38-6633hseuajzcehLQVR ABRAHAMot AvailableStart: 06-30-2024 End: 38-31-8799Vhxwdg flowsAngela Bo DO Work Phone: noms CI ORTHOPAEDICSStart: 06-30-2024 End: 11-36-1514Yvctzz flowsAngela Bo DO Work Phone: noms CI ORTHOPAEDICSStart: 06-30-2024 End: 92-03-6672Rgbyjc follow up visit related to original pxRupert Bo DO Work Phone: noms CI ORTHOPAEDICSComment on above:Cubital tunnel syndrome on right (Primary Dx)Start: 06-30-2024 End: 78-39-3113iclinjphfoAECWF A HUDTAWNYANot AvailableStart: 06-29-2024 End: 91-01-5211BxsrchVmnz Aichholz CONTACT CENTER REP Work Phone: noms CWM FMComment on above:Restless legs syndrome Start: 06-24-2024 End: 60-68-0577flyitdbpnlFjvljpoepTrinity Health System Work Phone: Start: 06-24-2024 End: 85-41-0158Psgfvxw encounter procedureCommunity Health Physician GroupWH[facility] G[facility] Work Phone: Start: 06-23-2024 End: 94-61-6360Jlgceljdx Result EncounterGeneric External Data ProviderNOMS External Department UnsolicitedStart: 06-23-2024 End: 26-82-1642Curwuydjj Result EncounterGeneric External Data ProviderNOMS External Department UnsolicitedStart: 06-23-2024 End: 71-71-8285joxmqdnwfaOpzupkcheTrinity Health System Work Phone: Start: 06-23-2024 End: 76-08-6789Znicqlq encounter procedureCommunity Health Physician [facility] Nephrology [place] Work Phone: Start: 06-18-2024 End: 59-52-9772HcuiaeLqlubi Benedict MD Work Phone: noms [place] STATE ROUTEComment on above:Degenerative disc disease, cervical (Primary Dx)Start: 06-09-2024 End: 54-86-0053AybdfsQfwl Carlie CONTACT CENTER REP Work Phone: noms CWM FMComment on above:Hypomagnesemiaquestions Start: 06-03-2024 End: 16-84-0232Jniras flowsheetMaria B Apling CONTACT CENTER REP Work Phone: noms CI ORTHOPAEDICSStart: 06-03-2024 End: 65-72-5699Iiuetg flowsheetMaria B Apling CONTACT CENTER REP Work Phone: noms CI ORTHOPAEDICSStart: 06-03-2024 End: 11-25-8733cxnbvxneuhOVJOD B APLINGNot AvailableStart: 06-03-2024 End: 77-94-6849Errbou follow up visit related to original pxMaria B Apling CONTACT CENTER REP Work Phone: noms CI ORTHOPAEDICSComment on above:Cubital tunnel syndrome on right (Primary Dx)Start: 05-26-2024 End: 65-28-8897JnrrnuLajxv T Olsen CONTACT CENTER REP Work Phone: noms FB ORTHOPAEDICSComment on above:Post-operative pain (Primary Dx)Start: 05-04-2024 End: 95-44-6735Aawncjhysobq stateTiburcio Noel CONTACT CENTER REP Work Phone: noms HealthcareStart: 04-27-2024 End: 67-66-8548Sktsjul encounter procedurePremier [facility] Pre[facility]Ad[facility] Testing [address] [place] [address] - Pre AdmitComment on above:Preop examination (Primary Dx); Hypertension, unspecified typeStart: 04-27-2024 End: 10-30-8848Ksdgoajiouepe examination done[address] SystemStart: 03-19-2024 End: 60-13-4964nmepyfrhbgZyxfpxpnyTrinity Health System Work Phone: Start: 03-19-2024 End: 55-14-8984Halmxxw encounter procedureCommunity Health Physician Group-[facility] Nephrology Work Phone: Start: 07-19-2022 End: 97-69-7184mhocxfgykpNKP PEPPER AICHHOLZFacility:Z3Nvebt: 04-04-2022 End: 99-73-2831mnnqwluvjuVJL PEPPER AICHHOLZFacility:N2Pedwv: 02-27-2022 End: 22-84-6066qjwoxjzyhdXRF PEPPER AICHHOLZFacility:T5Xioqt: 01-16-2022 End: 90-49-6477swfxbkfkpsOTO PEPPER AICHHOLZFacility:U0Axgam: 12-25-2021 End: 67-50-0180ilokzvefjbWCX PEPPER AICHHOLZFacility:H1 Procedures DateProcedureProcedure DetailPerforming ClinicianStart: 81-64-8922RCU MAGNESIUM Generic External Data ProviderStart: 01-47-1429AXB MAGNESIUMVioleta YU Work Phone: Start: 59-41-6439CVR URIC ACIDLisa Carlie CONTACT CENTER REP Work Phone: Start: 18-20-7490LZQ BASIC METABOLIC PANELLisa Aichholz CONTACT CENTER REP Work Phone: Start: 97-38-8121HNY CBC WITH AUTO DIFFLisa Aichholz CONTACT CENTER REP Work Phone: Start: 55-73-9825NCZWN CULTURE 2Generic External Data ProviderStart: 96-00-4152AJAXI CULTURE 1Generic External Data ProviderStart: 91-75-4995AUQ CBC WITH AUTO DIFFGeneric External Data ProviderStart: 11-24-2024 ALL MAGNESIUMGeneric External Data ProviderStart: 04-81-0961GTG MAGNESIUMLisa Aichholz CONTACT CENTER REP Work Phone: Start: 23-32-9692KOL MAGNESIUMLisa Aichholz CONTACT CENTER REP Work Phone: Start: 18-47-7808JNR THYROID STIM HORMONELisa Aichholz CONTACT CENTER REP Work Phone: Start: 43-08-5601Bxqlaxcizc glycosylated j9eXjnq Aichholz CONTACT CENTER REP Work Phone: Start: 53-96-4219LealmjrgnrcxrudtbirpfwajijBkms Aichholz Work Phone: Start: 34-08-3810ILC BASIC METABOLIC PANELLisa Aichholz CONTACT CENTER REP Work Phone: Start: 34-22-2367BTR MAGNESIUMLisa Aichholz CONTACT CENTER REP Work Phone: Start: 63-74-7032LtbrfjtwhnfyroinaebzmamazqNwlh Aichholz Work Phone: Start: 17-52-0527OGG MAGNESIUMGeneric External Data ProviderStart: 10-36-4360QVY RENAL FUNCTION PANELGeneric External Data Provider Start: 06-39-5036TAK URIC ACIDGeneric External Data ProviderStart: 55-45-1837OAY screeningCNP PEPPER AICHHOLZComment on above:Performed By: #### CMP, TSH, LIPID #### [facility] [address] [place] [address] Dr. Lavonne TinocoH/O: surgeryH/O prior ablation treatmentSdavid Mahomet Plan of Treatment DateCare ActivityDetailAuthorStart: 78-51-0903Nbiio BMI ScreeningAdult BMI ScreeningProWoodland Medical Center Health SystemStart: 40-48-2222Hwevzzn ScreeningTobacco ScreeningKettering Health Miamisburgca Health SystemStart: 47-75-4789Xqowh BMI ScreeningAdult BMI ScreeningKettering Health Miamisburgca Health SystemStart: 43-05-3625Eiymuhj ScreeningTobacco ScreeningPremier Health [facility] Health SystemStart: 62-86-1659Bviya BMI ScreeningAdult BMI ScreeningProC[facility] Clinic [facility] SystemStart: 60-81-5050Gtsuf BMI ScreeningAdult BMI ScreeningProKettering Health Springfieldca [facility] SystemStart: 10-28-2025 End: 85-93-1941Gtaqpqh encounter igqlwhxbi93/05/2026 10:00 AM EST [facility] [address] [place] [address] Vanessa Bedolla, TRIAL COURT JUDGE-MDS RN [address] [place] [address] [facility] Jobs[facility]ada [facility] FremontStart: 58-68-2308Hasdxzbmu for malignant neoplasm of colonNOMS HealthcareStart: 08-09-2025 End: 72-00-3441Frweqyy encounter lotrskljf55/17/2025 8:40 AM EST Office Visit [facility] [address] [place] [address] Pepper Sexton NP [address] [place] [address] [facility]QUIN FMStart: 07-22-2025 End: 82-73-1134Zpnmjci encounter gxwllivcy43/30/2025 10:15 AM EDT Office Visit [facility] [address] [place] [address] Vanessa Bedolla, TRIAL COURT JUDGE-[place] [address] [facility]iforniatart: 07-14-2025 End: 23-20-1488Gzgqogf encounter ijdfqezsw94/22/2025 1:00 PM EDT Appointment [facility] [address] [address] Robert Kumar MD [address], [address] [address] [facility] VascularStart: 07-08-2025 End: 08-99-7731WDYYQMZN VENOUS RADIOFREQUENCYABLATION VENOUS RADIOFREQUENCY 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 [facility] SystemStart: 07-08-2025 End: 01-26-6106Jrsqluyim to same day surgery nfgqqv0007/08/2025 2:00 PM EDT - 07/08/2025 3:00 PM EDT Surgery [facility] Surgery [address] [place] [address] Robert Kumar MD [address], [facility] [address] [place] [address] ABLATION VENOUS FMATTWLRGGGGOO-BNU-EYCBQRGSHCpiJmilji [facility] Comment on above:ABLATION VENOUS XMSTOFRBEHQUVV-TKA-LCJQOYOGQBgdtr: 07-08-2025 End: 34-02-6085Eqsathwrpb hdupddwpwdgn59/16/2025 2:00 PM EDT Anesthesia Event [facility] Surgery [address] [place], [place] [address] German Yip, DO [address] [facility] [place] [id number] [facility] SurgeryStart: 07-08-2025 End: 65-52-1621GOHJEBOFMQTBD LOWER EXTREMITYSCLEROTHERAPY LOWER EXTREMITY 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 - Pre Admit [address] [place] [address] [phone]. 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 ([facility]) Expected: 07/02/2025, Expires: 07/02/2026[facility] Work Phone: Comment on above:Expected: 07/02/2025, Expires: 07/02/2026Start: 57-41-1302Upsnzme ScreeningTobacco ScreeningAshtabula County Medical Center SystemStart: 59-77-3342Rjbpsqzjg vaccinationInfluenza VaccineAshtabula County Medical Center SystemStart: 05-06-2025 End: 31-44-2669Uxkbfli encounter jxxbhhoxd68/14/2025 8:20 AM EDT Office Visit [facility] [address] [place] [address] Pepper Sexton NP [address] [place] [address] Essential hypertension, benign (Primary Dx); Gastro- esophageal reflux disease without esophagitis;Morbid (severe) obesity due to excess calories ([facility]); Cigarette nicotine dependence without complication; Acute gout of left hand, unspecified causeNOMS CWM FMComment on above:Essential hypertension, benign (Primary Dx); Gastro-esophageal reflux disease without esophagitis; Morbid (severe) obesity due to excess calories ([facility]); Cigarette nicotine dependence without complication; Acute gout of left hand, unspecified causeStart: 05-05-2025 End: 74-11-9185Ffhzlni encounter szzojllzj30/13/2025 8:20 AM EDT Office Visit [facility] [address] [place] [address] Pepper Sexton, REMBERTO [address] [place] [address] [facility] FMStart: 04-29-2025 End: 64-43-2997Agnzknc encounter cweydmfoj60/07/2025 8:50 AM EDT Office Visit [facility] [place] [address] Robert Kumar MD [address], [address] [address] [facility] Hospitaltart: 51-69-6148Elxck BMI ScreeningAdult BMI ScreeningAshtabula County Medical Center SystemStart: 44-81-9267Tccejdc ScreeningTobacco ScreeningUNC Medical Centertart: 04-20-2025 End: 36-53-1722Nnvbbyk encounter tvazirgwt48/29/2025 9:[address] [facility] [address] [place] [address] Robert Kumar MD [address], [address] [place] [address] [facility]Start: 04-07-2025 End: 38-83-6419Xybbl [Mass/volume] in Serum or PlasmaUric acid Lab Routine Acute gout of left hand, unspecified cause Expected: 04/07/2025 (Approximate), Expires: 04/07/2026[facility] Work Phone: Comment on above:Expected: 04/07/2025 (Approximate), Expires: 04/07/2026Start: 04-07-2025 End: 56-59-9181Zeyvmjy encounter procedureNOMS 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); Cellulitis of left lower extremityStart: 04-01-2025 End: 91-27-6722LL.doppler Lower extremity vein - leftVas venous duplex insufficiency lwr lt Vascular Ultrasound Routine Chronic venous insufficiency Expected: 04/01/2025, Expires: 04/01/2026[facility] Work Phone: [phone] on above:Expected: 04/01/2025, Expires: 04/01/2026Start: 03-17-2025 End: 28-24-4058Xpmop metabolic 1998 panel - Serum or PlasmaBasic metabolic panel Lab Routine Electrolyte abnormality Expected: 03/17/2025 (Approximate), s: 03/17/2026[facility] Work Phone: Comment on above:Expected: 03/17/2025 (Approximate), Expires: 03/17/2026Start: 03-08-2025 End: 38-43-9239Bzutmrj encounter xautxqjrg21/16/2025 8:20 AM EDT Office Visit [facility] [address] [place] [address] Pepper Sexton NP [address] [place] [address] Essential hypertension, benign (Primary Dx); Cellulitis of left lower extremity; Left leg swelling; Morbid (severe) obesity due to excess calories (CMS-HCC)[facility] CWM FMComment on above:Essential hypertension, benign (Primary Dx); Cellulitis of left lower extremity; Left leg swelling; Morbid (severe) obesity due to excess calories (CMS-HCC)Start: 01-06-2025 End: 85-56-6475DKK W Auto Differential panel - BloodCBC and differential Lab Routine Gastro-esophageal reflux disease without esophagitis Expected: 12/22 (Approximate), Expires: 01/06/2026NOVT HealthcareComment on above: Expected: 01/06/2025 (Approximate), Expires: 01/06/2026Start: 01-06-2025 End: 30-26-7960Rgpcfypmsjqhs metabolic 2000 panel - Serum or PlasmaComprehensive metabolic panel Lab Routine Chronic kidney disease, stage 3a (HCC) (CMS/HCC) Essential hypertension, benign (CMS/HCC) Gastro-esophageal reflux disease without esophagitis Mixed hyperlipidemia (CMS/HCC) Expected: 01/06/2025 (Approximate), Expires: 01/06/2026NOVT HealthcareComment on above:Expected: 01/06/2025 (Approximate), Expires: 01/06/2026Start: 01-06-2025 End: 48-05-6708Acywt 1996 panel - Serum or PlasmaLipid panel Lab Routine Mixed hyperlipidemia (CMS/HCC) Expected: 01/06/2025 (Approximate), Expires:01/06/2026 [facility] Work Phone: Comment on above:Expected: 01/06/2025 (Approximate), Expires: 01/06/2026Start: 01-06-2025 End: 28-94-5735Bixwxspqcneu/Creatinine panel in random UrineMicroalbumin / creatinine, urine ratio Lab Routine Essential hypertension, benign (CMS/HCC) Expected: 01/06/2025 (Approximate), Expires: 01/06/2026[facility] HealthcareComment on above:Expected: 01/06/2025 (Approximate), Expires: 01/06/2026Start: 01-06-2025 End: 21-32-6950Oneynzpx specific Ag [Mass/volume] in Serum or PlasmaPSA Lab Routine Screening for prostate cancer Expected: 01/06/2025 (Approximate), Expires: 01/06/2026[facility] HealthcareComment on above:Expected: 01/06/2025 (Approximate), Expires: 01/06/2026Start: 01-06-2025 End: 65-22-0581Lsieyaltghm [Units/volume] in Serum or PlasmaTSH Lab Routine Hypothyroidism, unspecified type (CMS/HCC) Expected: 01/06/2025 (Approximate), Expires: 01/06/2026[facility] HealthcareComment on above:Expected: 01/06/2025 (Approximate), Expires: 01/06/2026Start: 01-06-2025 End: 95-20-4365Yakyeuhth (T4) free [Mass/volume] in Serum or PlasmaT4, free Lab Routine Hypothyroidism, unspecified type (CMS/HCC) Expected: 01/06/2025 (Approximate),Expires: 01/06/2026[facility] HealthcareComment on above:Expected: 01/06/2025 (Approximate), Expires: 01/06/2026Start: 01-06-2025 End: 33-11-5419Wkyfytmzkh complete panel - UrineUrinalysis with reflex microscopic (clean catch) Lab Routine Essential hypertension, benign (CMS/HCC) Expected: 01/06/2025 (Approximate), Expires: 01/06/2026[facility] HealthcareComment on above:Expected: 01/06/2025 (Approximate), Expires: 01/06/2026Start: 01-06-2025 End: 02-64-0178Xmfbejy encounter procedureNOMS CWM FMComment on above:Essential hypertension, benign (CMS/HCC) (Primary Dx); Chronic kidney disease, stage 3a (HCC) (CMS/HCC); Gastro-esophageal reflux disease without esophagitis; Morbid (severe) obesity due to excess calories (CMS/HCC); Mixed hyperlipidemia (CMS/HCC); Hypomagnesemia; Screening for prostate cancer; Marijuana use; Hypothyroidism, unspecified type (CMS/HCC)Start: 12-06-2024 End: 38-37-1467Wxshlbddbge [Units/volume] in Serum or PlasmaTSH Lab Routine Hypothyroidism, unspecified type (CMS/HCC) Expected: 12/06/2024 (Approximate), Expires: 10/08/2025[facility] Healthcare Work Phone: Comment on above:Expected: 12/06/2024 (Approximate), Expires: 10/08/2025Start: 12-06-2024 End: 00-06-2539Vwteohnuv (T4) free [Mass/volume] in Serum or PlasmaT4, free Lab Routine Hypothyroidism, unspecified type (CMS/HCC) Expected: 12/06/2024 (Approximate),Expires: 10/08/2025[facility] HealthcareComment on above:Expected: 12/06/2024 (Approximate), Expires: 10/08/2025Start: 10-22-2024 End: 86-54-6526Wuovlhszx [Mass/volume] in Serum or PlasmaMagnesium Lab Routine Hypomagnesemia Expected: 10/22/2024 (Approximate), Expires: 10/08/2025[facility] HealthcareComment on above:Expected: 10/22/2024 (Approximate), Expires: 10/08/2025Start: 10-07-2024 End: 97-51-7743Vqoblxvhi [Mass/volume] in Serum or PlasmaMagnesium Lab Routine Hypomagnesemia Expected: 10/07/2024 (Approximate), Expires: 10/07/2025[facility] HealthcareComment on above:Expected: 10/07/2024 (Approximate), Expires: 10/07/2025Start: 10-07-2024 End: 54-79-7188Zbjeekfoqdq [Units/volume] in Serum or PlasmaTSH Lab Routine Hypothyroidism, unspecified type (CMS/HCC) Expected: 10/07/2024 (Approximate), Expires: 10/07/2025[facility] Work Phone: Comment on above:Expected: 10/07/2024 (Approximate), Expires: 10/07/2025Start: 10-07-2024 End: 71-92-1629Zddufuuum (T4) free [Mass/volume] in Serum or PlasmaT4, free Lab Routine Hypothyroidism, unspecified type (CMS/HCC) Expected: 10/07/2024 (Approximate),Expires: 10/07/2025[facility] HealthcareComment on above:Expected: 10/07/2024 (Approximate), Expires: 10/07/2025Start: 10-07-2024 End: 13-02-6524Qplfdwv encounter procedureNOMS CWM FMComment on above:GURVINDER (obstructive sleep apnea) (Primary Dx); Morbid (severe) obesity due to excess calories (CMS/HCC); Gastro-esophageal reflux disease without esophagitis; Body mass index (BMI) 37.0-37.9, adult; COPD mixed type (CMS/HCC); Essential hypertension, benign (CMS/HCC); Pulmonary hypertension (CMS/HCC); Hypothyroidism, unspecified type (CMS/HCC); Obesity (BMI 30-39.9); Mixed hyperlipidemia (CMS/HCC); Hypomagnesemia; Marijuana use; Pre-diabetesStart: 47-07-0755WjtxllavgProMedica Defiance Regional Hospitaltart: 09-04-2024 End: 82-48-1519Cgkqb metabolic 1997 panel - Serum or PlasmaBasic metabolic panel Lab Routine Hypomagnesemia Expected: 09/04/2024 (Approximate), Expires: 2024N[facility] HealthcareComment on above:Expected: 09/04/2024 (Approximate), Expires: 09/04/2025Start: 09-04-2024 End: 65-71-6108Irucftmpq [Mass/volume] in Serum or PlasmaMagnesium Lab Routine Hypomagnesemia Expected: 09/04/2024 (Approximate), Expires: 09/04/2025[facility] Work Phone: Comment on above:Expected: 09/04/2024 (Approximate), Expires: 09/04/2025Start: 06-84-1560EwvsviwezProMedica Defiance Regional Hospitaltart: 07-06-2024 End: 20-90-2993Uowuhsv encounter procedureNOMS CWM FMComment on above:Arrived Start: 06-30-2024 End: 79-51-3478Ssnyhct encounter procedureNOMS CI ORTHOPAEDICSComment on above: ArrivedStart: 06-09-2024 End: 26-76-0185Zjbhs metabolic 1997 panel - Serum or PlasmaBasic metabolic panel Lab Routine Hypomagnesemia Expected: 06/09/2024 (Approximate), Expires: 2024[facility] Work Phone: Comment on above:Expected: 06/09/2024 (Approximate), Expires: 06/09/2025Start: 06-09-2024 End: 81-07-8403Gobsiubho [Mass/volume] in Serum or PlasmaMagnesium Lab Routine Hypomagnesemia Expected: 06/09/2024 (Approximate), Expires: 06/09/2025N[facility] HealthcareComment on above:Expected: 06/09/2024 (Approximate), Expires: 06/09/2025Start: 06-03-2024 End: 31-27-0340Xhqqypd encounter nmtfndmyo64/11/2024 8:45 AM EDT Office Visit [facility] [address] [place] [address] Blank Mcfarlane NP [address] [place] [address] [facility] CI ORTHOPAEDICSStart: 05-27-2024 End: 06-21-4292Zcevlyk encounter hctdveiwe52/04/2024 10:40 AM EDT Office Visit [facility] [address] [place] [address] Karuna Carranza PA [address] [place] [address] [facility] ROUTEStart: 05-27-2024 End: 73-83-1960Usjoidkzo to same day surgery hcvfxo8805/27/2024 7:30 AM EDT - 05/27/2024 8:[address] [facility] [address] [place] [address] Rupert Bo DO [address] [facility] [address] [place] [address] DECOMPRESSION NERVE ULNAR [05179 (CPT )][facility] - SurgeryComment on above:DECOMPRESSION NERVE ULNAR [57666 (CPT )]Start: 05-27-2024 End: 09-76-3796Kgkvumfzoop &/transposition ulnar nerve elbowDECOMPRESSION NERVE ULNAR right ulnar neuropathy 05/27/2024 7:30 AM EDTFREMONT SURGERYStart: 05-27-2024 End: 04-59-3138Xakukzb encounter vweqkbvyd42/04/2024 7:30 AM EDT Procedure Visit [facility] Rupert Bo, DO [address] [place] [address] [facility] EXT DEPStart: 05-27-2024 Subsequent hospital visit by zhfmobupl44/04/2024 7:30 AM EDT Hospital Encounter [facility] [address] [place] [address] Rupert Bo, DO [address] [place] [address] [facility] SurgeryStart: 47-96-1632Vnsjjamnu vaccinationInfluenza VaccineProCleveland Clinic Marymount Hospital SystemStart: 43-39-6194Fglmzveansncdd of varicella zoster vaccineZoster (Shingles) Vaccine (1 of 2)[facility] SystemStart: 44-68-4686XLvW,Tdap and Td Vaccines (1 - Tdap)DTaP,Tdap and Td Vaccines (1 - Tdap)[facility] SystemStart: 59-64-7563Dlowu BMI Follow Up PlanAdult BMI Follow Up PlanAshtabula County Medical Center SystemStart: 15-47-4654Lgodyybqzd ScreeningDepression ScreeningProCleveland Clinic Marymount Hospital SystemStart: 74-13-3655Ixynrtwqz for malignant neoplasm of colonNOMS HealthcareBLOOD CULTURE 1BLOOD CULTURE 1 Lab Routine 02/07/2025 12:02 PM EDTNOMS HealthcareBLOOD CULTURE 2BLOOD CULTURE 2 Lab Routine 02/07/2025 12:45 PM EDTNOMS HealthcarePatient [facility] Work Phone: Renal function 1999 panel - Serum or [facility] - Serum or [facility] HospitalRenal function 1999 panel - Serum or [facility] HospitalRenal function 1999 panel - Serum or PlasmaFirelands Regional Medical CenterFirelands [facility] Payers DatePayer CategoryPayerPolicy [id number] Cross Blue ShieldBCBS Member Subscriber Plan / Payer (Effective 2019-Present) Name: Abram Guillaume Relation to Subscriber: Self Name: Abram Guillaume Payer ID: Noton file Type: Not on file Address: [address] [place], [place] [id number] [facility] Regional Hospital Care - PPOANTHEM Member Subscriber Plan / Payer (Effective 2019-Present) Name: Abram Guillaume Relation to Subscriber: Self Name: Abram Guillaume Payer ID: [id number] (NAIC) Type: Not on file Address: [address] [place] [id number].13.693.2.7.3.224624.05696-19-0718Ghggjvo [id number] 2.0.1.006550.3.57[id number] 2.0.1.258569.3.57[id number] 2.0.1.582730.3.57[id number] 2.840.1.491378.3.57[id number] 2..840.1.587004.3.57[id number] 2.16.840.1.582873.3.57[id number] 2.840.1.955442.3.57[id number] 2.840.1.474298.3.57[id number] 2.840.1.500390.3.57[id number] 2.840.1.931825.3.57[id number] 2.840.1.727160.3.57[id number] 2.840.1.406704.3.57[id number] 2.840.1.816443.3.57[id number] 2.840.1.319246.3.579.[id number] 2.840.1.541586.3.579.[id number] 2.840.1.976790.3.57[id number] 2.840.1.048913.3.57[id number] 2.840.1.392814.3.57[id number] 2.0.1.520042.3.579.[id number] 2..0.1.161278.3.57[id number] 2..840.1.890893.3.57[id number] 2.0.1.412454.3.579.[id number] 2.0.1.673666.3.579.2.726001-68-9681MatgqyoTVO765J1952707-84-8984Vtfgpgv [id number] /[id number] 146kgz53-2ab9-1030-coy6-7z0260il541a UnknownFrontpath Mimbres Memorial [id number] t4gmx3o2-x165-734r-[id number] [id number] 2.0.1.592[id number] 2.0.1.863069.3.579.2.531 Social History DateTypeDetailFacilityStart: 27-84-5318Qxscsph smoking status NHISCurrent some day smokerProMedica Defiance Regional Hospitaltart: 08-50-2284Ffq Assigned At BirthOhioHealth Grady Memorial Hospitaltart: 04-30-2024 End: 79-20-4988Tuwimep smoking status NHISEx-smoker (finding)[facility] HospitalHistory of tobacco useCurrent smokerNOMS HealthcareHistory of tobacco useCigar SmokerNOMS HealthcareStart: 04-30-2024 End: 61-10-9359Moovhve use and exposureSmokeless tobacco non-userNOMS Healthcare Start: 06-03-2024 End: 11-70-1604Zvnkkkcog beverage intakeCurrent drinker of alcohol (finding)[facility] HealthcareStart: 03-04-2019 End: 18-55-3045Qhwiweu of Social functionNOMS HealthcareStart: 03-04-2019 End: 44-48-4742Bxfxeh connection and isolation panelNOMS HealthcareDo you belong to any clubs or organizations such as evangelical groups, unions, fraternal or athletic groups, or [...] the mortgage or rent on time?NoNOMS HealthcareStart: 06-19-2753Lcmvlzg Commentcaffeine: 1-2 cups per dayNOMS HealthcareStart: 57-43-6270Oxn assigned at birthNot on fileNOVT HealthcareStart: 05-27-2024 End: 96-42-7438Yeptqjm smoking status NHISNever smoked tobacco (finding) [facility] Hospitaltart: 04-28-2015 End: 65-60-7277IdmFbkp (finding)[facility] HospitalHistory of tobacco useCigarette SmokerProMedica Health SystemStart: 40-92-1113Lvxoapr Commentsocial/recreationalProMedica Health System Goals DatePatient GoalDesired Activity/StatePersonal health goal Clinical Notes 04-27-2024 to 07-22-2025 Note Date & OsmkFcgbDbyrxuhd10-79-1196 Evaluation + Plan note* Assessment & Plan Note - Robert Kumar MD - 07/22/2025 10:33 AM EDTAssociated Problem(s): 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 Follow up in 3 months. [facility]10-30-2025 Miscellaneous Notes* Assessment & Plan Note - Robert Kumar MD - 07/22/2025 10:33 AM EDTAssociated Problem(s): 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 ([facility]) Continue compression therapy and calamine cream. Follow up in 3 months. documented in this encounterCommunity Memorial Hospital10-30-2025 History of Present illness Narrative* Robert Kumar MD - 07/22/2025 10:15 AM EDT Images from the original note were not included. To: PEPPER SEXTON, TRIAL COURT JUDGE-MDS RN HPI: Abram Guillaume is a 59 y.o. [...] Surgical History: Procedure Laterality Date ABLATION VENOUS KWOAVAGHPFGEOS-PBQ-CYRECTFZI Left 07/08/2025 Performed by Robert Kumar MD at [facility] DECOMPRESSION NERVE ULNAR Right 05/27/2024 Performed by Rupert Bo DO at [facility] ESOPHAGOGASTRODUODENOSCOPY x2 HERNIA REPAIR Bilateral inguinal LEG SURGERY Left 2011 broken tib/fib SCLEROTHERAPY LOWER EXTREMITY Left 07/08/2025 Performed by Robert Kumar MD at [facility] TONSILLECTOMY Social and Family History: Social History [...] Received from [facility] Hunger Vital Sign Within the past [...] Received from [facility] Exercise Vital Sign On average, how many days per week do you engage in moderate to strenuous exercise (like a brisk walk)?: 5 days On average, how many minutes do you engage in exercise at this level?: 150+ min Stress: Stress Concern Present (11/25/2023) Received from [facility] [employer] Occupational Health - Occupational Stress Questionnaire Feeling of Stress : To some extent Social Connections: Moderately Integrated (11/25/2023) Received from [facility] Social Connection and Isolation Panel In a typical week, how many times do you talk on the phone with family, friends, or neighbors?: Once a week How often do you get together with friends or relatives?: Three times a week How often do you attend evangelical or gnosticism services?: Never Do you belong to any clubs or organizations such as evangelical groups, unions, fraternal or athletic groups, or school groups?: Yes How often do you attend meetings of the clubs or organizations you belong to?: Never Are you , , , , never , or living with a partner?: Interpersonal Safety: Unknown (11/14/2023) Received from [facility] Safety & Environment Fear of [...] 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 ([facility]) - Primary Current Assessment & Plan Continue compression therapy and calamine cream. Follow up in 3 months. Abram was seen today for varicose veins of lower extremity with varicose ulcer and ec. Diagnoses and all orders for this visit: 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 ([facility]) Robert Kumar MD, ZAN, RPVI, FSVS, FACS [...] you for your understanding. documented in this encounterGrace Cottage HospitalIndependent Space Qsmmtc04-31-4189 Instructions* Patient Instructions* Ora Delvalle RN - 07/05/2025 9:45 AM EDT Preoperative Education Checklist- General Surgery date: 07/08/25 Surgery time: 2:00 p.m. Arrival time: 12:00 p.m. 1. Bring a photo ID and your insurance card with you the day of surgery. You will check in at the main lobby of the [facility]- registration desk is straight ahead as soon as you walk in. Tell them you are here for surgery. 2. If you have a Living Will/Durable Power of Level Vial Grinder for Health Care that is not on [...] after you have bathed. 5. NO nail nepalese/acrylic on at least one finger. If you are having a hand, wrist or foot surgery then all nail nepalese and artificial/acrylic nails must be removed from [...] please call the Preadmission Testing office at [phone], Mon.-Fri. 7 a.m.-3 p.m. Leave a voicemail [...] appointment with your doctor. documented in this encounterCommunity Memorial Hospital10-13-2025 Miscellaneous Notes* Perioperative Nursing Note - Ora Delvalle RN - 07/05/2025 9:45 AM EDT Preoperative Education Checklist- General Surgery date: 07/08/25 Surgery time: 2:00 p.m. Arrival time: 12:00 p.m. 1. Bring a photo ID and your insurance card with you the day of surgery. You will check in at the main lobby of the [facility]- registration desk is straight ahead as soon as you walk in. Tell them you are here for surgery. 2. If you have a Living Will/Durable Power of Level Vial Grinder for Health Care that is not on [...] after you have bathed. 5. NO nail nepalese/acrylic on at least one finger. If you are having a hand, wrist or foot surgery then all nail nepalese and artificial/acrylic nails must be removed from [...] please call the Preadmission Testing office at [phone], Mon.-Fri. 7 a.m.-3 p.m. Leave a voicemail [...] reviewed. Patient verbalized understanding. documented in this encounterCommunity Memorial Hospital10-13-2025 Nurse Note* Perioperative Nursing Note - Ora Delvalle RN - 07/05/2025 9:45 AM EDT Preoperative Education Checklist- General Surgery date: 07/08/25 Surgery time: 2:00 p.m. Arrival time: 12:00 p.m. 1. Bring a photo ID and your insurance card with you the day of surgery. You will check in at the main lobby of the [facility]- registration desk is straight ahead as soon as you walk in. Tell them you are here for surgery. 2. If you have a Living Will/Durable Power of Level Vial Grinder for Health Care that is not on [...] after you have bathed. 5. NO nail nepalese/acrylic on at least one finger. If you are having a hand, wrist or foot surgery then all nail nepalese and artificial/acrylic nails must be removed from [...] please call the Preadmission Testing office at [phone], Mon.-Fri. 7 a.m.-3 p.m. Leave a voicemail [...] to the follow-up appointment with your doctor. [facility] Superfeedr [id number] Nurse Note* Perioperative Nursing Note - Ora Delvalle RN - 07/05/2025 9:45 AM EDT Hibiclens and surgical instructions reviewed. Patient verbalized understanding. [facility]08-14-2025 History of Present illness Narrative* [...] of the risks of continued smoking: stroke, ID, all forms of cancer, lung disease, and [...] Morbid (severe) obesity due to excess calories ([facility]) Discussed with patient their BMI (actual, [...] of the risks of continued smoking: stroke, ID, all forms of cancer, lung disease, and [...] Morbid (severe) obesity due to excess calories ([facility]) Discussed with patient their BMI (actual, [...] meds: amlodipine,, bystolic, valsartan documented in this [facility]08-14-2025 Instructions* Patient Instructions* Pepper Sexton NP - 05/06/2025 8:20 AM EDT Add antibiotic twice a day for 10 days documented in this [facility]08-07-2025 Evaluation + Plan note* Assessment & Plan Note - Robret Kumar MD - 04/29/2025 8:56 AM EDT Associated Problem(s): Chronic deep vein thrombosis (DVT) of left thigh ([facility]) Compression therapy. Leg elevation and exercise [facility]08-07-2025 Evaluation + Plan note* Assessment & Plan Note - Robert Kumar MD - 04/29/2025 8:56 AM EDTAssociated Problem(s): 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 (CMS-HCC) Left SSV Ablation and sclerotherapy. Compression stockings. [facility]08-07-2025 Miscellaneous Notes* Assessment & Plan [...] and sclerotherapy. Compression stockings. documented in this encounterCommunity Memorial Hospital08-07-2025 History of Present illness Narrative* Robert Kumar MD - 04/29/2025 8:50 AM EDT Images from the original note were not included. To: PEPPER SEXTON, TRIAL COURT JUDGE-MDS RN HPI: Abram Guillaume is a 59 y.o. [...] 05/27/2024 Performed by Rupert Bo DO at [facility] HERNIA REPAIR Bilateral inguinal LEG SURGERY [...] Concern Present (11/25/2023) Received from [facility] [employer] of Occupational Health - Occupational Stress Questionnaire Feeling of Stress : To some extent Social Connections: Moderately Integrated (11/25/2023) Received from [facility] Social Connection and Isolation Panel [NHANES] Frequency of Communication with Friends and Family: Once a week Frequency of Social Gatherings with Friends and Family: Three times a week Attends Cheondoism Services: Never Active Member of Clubs or Organizations: Yes Attends Club or Organization Meetings: Never Marital Status: Interpersonal Safety: Unknown (11/14/2023) Received from [facility] Safety & Environment Fear of [...] deep vein thrombosis (DVT) of left thigh ([facility]) Current Assessment & Plan Compression therapy. Leg elevation and exercise 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 ([facility]) - Primary Current Assessment & Plan Left SSV Ablation and sclerotherapy. Compression stockings. Abram was seen today for follow up testing. Diagnoses and all orders for this visit: 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 ([facility]) Chronic deep vein thrombosis (DVT) of left thigh ([facility]) Other orders - calamine-zinc oxide 8-8 % [...] you for your understanding. documented in this encounterKettering Health MiamisburgbOombate Hurley Medical [id number] History of Present illness Narrative* Pepper Sexton [...] up as of yet * Pepper Sexton, CONTACT CENTER REP - 04/07/2025 8:20 AM EDT Images from [...] includes PVD. There is no history of CAD/ID or heart failure. Hand Pain The incident [...] Morbid (severe) obesity due to excess calories ([facility]) - Primary Discussed with patient their BMI [...] 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 ([facility]) Reviewed vascular notes Bronchitis Doxy No resp [...] Morbid (severe) obesity due to excess calories ([facility]) Discussed with patient their BMI (actual, verses recommended). We have also discussed lifestyle modifications: attempts to perform physical activity as chronic conditions allow, also to monitor dietary intake: increasing protein/fruits/veggies and lowering carb intake (unless contraindicated). Limit sodas, juices, and sugary drinks. documented in this encounterSac-Osage [id number] Instructions* Patient Instructions* Pepper Sexton NP - 04/07/2025 8:20 AM EDT Diclofenac cream/gel to joint on left hand Next lab draw check uric acid documented in this encounterSac-Osage [id number] Evaluation + Plan note* Assessment & Plan Note - Robert Kumar MD - 04/01/2025 10:43 AM EDT Associated Problem(s): 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 (CMS-HCC) Compression therapy leg elevation exercise. Calamine cream. We will get venous reflux ultrasound. [facility]07-10-2025 Evaluation + Plan note* Assessment & Plan Note - Robert Kumar MD - 04/01/2025 10:43 AM EDTAssociated Problem(s): Chronic deep vein thrombosis (DVT) of popliteal vein of left lower extremity(CMS-HCC) Compression therapy venous reflux ultrasound. Calamine cream to the skin. [facility]07-10-2025 Miscellaneous Notes* Assessment & Plan [...] cream to the skin. documented in this encounterCommunity [facility] Hospital07[facility] History of Present illness Narrative* Robert Kumar MD - 04/01/2025 10:00 AM EDT Images from the original note were not included. To: PEPPER SEXTON, TRIAL COURT JUDGE-MDS RN HPI: Abram Guillaume is a 59 y.o. [...] 05/27/2024 Performed by Rupert Bo DO at [facility] Bilateral inguinal LEG SURGERY [...] Concern Present (11/25/2023) [facility] [employer] [facility] [employer] - Occupational Stress Questionnaire Feeling of Stress : To some extent Social Connections: Moderately Integrated (11/25/2023) [facility] Social Connection and Isolation Panel [NHANES] Frequency of Communication with Friends and Family: Once a week Frequency of Social Gatherings with Friends and Family: Three times a week Attends Cheondoism Services: Never Active Member of Clubs or Organizations: Yes Attends Club or Organization Meetings: Never Marital Status: Interpersonal Safety: Unknown (11/14/2023) Received from [facility] Safety & Environment Fear of [...] of popliteal vein of left lower extremity ([facility]) Current Assessment & Plan Compression therapy venous reflux ultrasound. Calamine cream to the skin. 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 ([facility]) Current Assessment & Plan Compression therapy leg elevation exercise. Calamine cream. We will get venous reflux ultrasound. Abram was seen today for cellulitis of left lower extremity left leg swelling . Diagnoses and all orders for this visit: Chronic venous insufficiency - Vas venous duplex insufficiency lwr lt; Future - Thigh high anti-embolism stocking Lg/Regular ([id number]) Chronic deep vein thrombosis (DVT) of popliteal vein of left lower extremity (CMS-HCC) 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 ([facility]) Robert Kumar MD, ZAN, RPVI, FSVS, FACS [...] you for your understanding. documented in [facility] encounterCommunity [facility] History of Present illness Narrative* [...] Morbid (severe) obesity due to excess calories ([facility]) Discussed with patient their BMI (actual, verses [...] Morbid (severe) obesity due to excess calories ([facility]) Discussed with patient their BMI (actual, verses [...] about 45 mins ago documented in this encounterSac-Osage [id number] Instructions* Patient Instructions* Pepper Sexton NP - 03/08/2025 8:20 AM EDT Return to work as of 03/09/25 Keep fu appt with me for March Hern[place] wrap for Left lower leg documented in this encounterSac-Osage [id number] History of Present illness Narrative* Pepper Sexton NP - 02/17/2025 7:28 PM EDTAssociated Problem(s): MARITZA (acute kidney injury) ([facility]) Returning to baseline * Pepper Sexton NP - 02/17/2025 7:28 PM EDTAssociated Problem(s): Cellulitis of left lower extremity Finish atb's Off work until re assessed Elevate foot * Pepper Sexton NP - 02/17/2025 7:27 PM EDTAssociated Problem(s): Nicotine dependence The patient has been advised of the risks of continued smoking: stroke, ID, all forms of cancer, lung disease, and [...] of the risks of continued smoking: stroke, ID, all forms of cancer, lung disease, and [...] (CMS/HCC) Returning to baseline documented in this [facility]05-28-2025 Instructions* Patient Instructions* Pepper Sexton NP - 02/17/2025 4:[address] isabel referral Finish antibiotics, elevate leg Off work 2 weeks, documented in this [facility]04-16-2025 History of Present illness Narrative* Pepper Sexotn NP - 01/06/2025 9:00 AM EDT Images [...] compliance problems. There is no history of CAD/ID, heart failure or PVD. GERD He reports [...] panel Chronic kidney disease, stage 3a (HCC) ([facility]) Sees nephrology Relevant Orders Comprehensive metabolic panel * Pepper Sexton NP - 01/06/2025 6:15 AM EDTAssociated Problem(s): Hypothyroidism ([facility]) Current med: levothyroxine Check labs yearly and [...] meds: amlodipine, bystolic, valsartan documented in this encounterSac-Osage [id number] Instructions* Patient Instructions* Pepper Sexton NP - 01/06/2025 9:00 AM EDT Fasting labs due after 03/02/25 documented in this encounterSac-Osage [id number] History of Present illness Narrative* Pepper Sexton [...] kidney disease. There is no history of CAD/ID. 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 documented in this [facility]01-14-2025 History and physical note Author James Elaine [facility] HospitalNote Date/TimeJanuary 2024 8:32am [place] [address] Gastroenterology H&P Signed Patient: Abram Guillaume MR#: [id number] 4 : 1965 Acct:[id number] Age/Sex: 58 / M Adm Date: 5 Loc: Room: Type: [facility] Attending Dr: James Elaine MD Copies [...] <Electronically signed by James Elaine MD> 10/06/24831 [facility] Work Phone: 1(442) 814-528101-14-2025 [place] [address] EGD Procedure Note Signed Patient: Abram Guillaume MR#: [id number] 4 : 1965 Acct:[id number] Age/Sex: 58 / M Adm Date: 5 Loc: Room: Type: [facility] Attending Dr: James Elaine MD Copies to: MD Pepper Werner NP-C~ Esophagogastroduodenoscopy Date/Provider Date: 10/06/2024 James Elaine MD Procedure Findings: Procedure: EGD with biopsy Indication: 58-year-old man with history of esophagitis here for EGD to assess for Idana's Pre-operative diagnosis: History of esophagitis Post-operative diagnosis: [place]-colored mucosa in the esophagus otherwise normal EGD [...] MD 10/06/24 0832 Signed By: 10/06/24 0834 [facility]01-14-2025 [place] [address] Gastroenterology H&P Signed Patient: Abram Guillaume MR#: [id number] 4 : 1965 Acct:[id number] Age/Sex: 58 / M Adm Date: 5 Loc: Room: Type: [facility] Attending Dr: James Elaine MD Copies [...] James Elaine MD 10/06/24830 Signed By: 10/06/2432 [facility]01-06-20[facility] History of Present illness Narrative * [...] regarding this matter. documented in this encounterSac-Osage [id number] [facility] noteFost[facility] Hospital10-14-2024 History of Present illness Narrative* Pepper [...] scope with GI, has been off his PPI/U6zbhbdgjd for up coming EGD etc Continue with [...] scope with GI, has been off his PPI/G2jwegoyvg for up coming EGD etc Continue with GI Essential hypertension, benign (CMS/HCC) - Primary At goal no med dose chagnes Hypothyroidism (CMS/HCC) No med dose changes Hypomagnesemia Continue with TID magnesium and fu with Nephrology Relevant Medications magnesium oxide (Mag-Ox) 400 MG tablet Obesity (BMI 30-39.9) Needs flu shot declines documented in this encounterSac-Osage [id number] History of Present illness Narrative* Rupert Bo, [...] Bo/lloyd Bo D.O. documented in this encounterSac-Osage [id number] Telephone encounter Note* Telephone Encounter - DEBI Cho - 06/09/2024 12:22 PM EDT Spoke with patient and he will RTW tomorrow with light duty [facility] Work Phone: 1(800) 884-855009-17-2024 Miscellaneous Notes* Telephone Encounter - DEBI Cho [...] questions, if you could call him at [phone] documented in this encounterSac-Osage HospitalVgzdoiehgx92-99-6730 Telephone encounter Note* Telephone Encounter - DEBI Cho - 06/09/2024 12:16 PM EDT Spoke with patient and answered questions, he would like to RTW tomorrow with restrictions, spoke with Dr Bo and he said that was fine [facility] [id number] Telephone encounter Note* Telephone Encounter - Sarah Marshall - 06/09/2024 12:13 PM EDT Pt called and left vm stated he has PO questions, if you could call him at [phone] [facility] HospitalMbcbibczga76-95-2040 History of Present illness Narrative* Blank Mcfarlane [...] weeks, continue off work documented in this [facility]09-03-2024 Telephone encounter Note* Telephone Encounter - Tiburcio Noel NP - 05/26/2024 12:16 PM EDT Post op pain rx. PDMP reviewed [facility] [id number] Miscellaneous Notes* Telephone Encounter - Tiburcio Noel NP - 05/26/2024 12:16 PM EDT Post op pain rx. PDMP reviewed documented in this [facility]08-05-2024 Instructions* Patient Instructions* Ora Delvalle RN - 04/27/2024 8:15 AM EDT Preoperative Education Checklist- General Surgery date: 05/27/24 Surgery time: 0730 a.m. Arrival time: 0610 a.m. 1. Bring a photo ID and your insurance card with you the day of surgery. You will check in at the main lobby of the [facility]- registration desk is straight ahead as soon as you walk in. Tell them you are here for surgery. 2. If you have a Living Will/Durable Power of Level Vial Grinder for Health Care that is not on [...] after you have bathed. 5. NO nail nepalese/acrylic on at least one finger. If you are having a hand, wrist or foot surgery then all nail nepalese and artificial/acrylic nails must be removed from [...] please call the Preadmission Testing office at [phone], Mon.-Fri. 7 a.m.-3 p.m. Leave a voicemail [...] appointment with your doctor. documented in this encounterK[facility] [id number] Miscellaneous Notes* Perioperative Nursing Note - Ora Delvalle RN - 04/27/2024 8:15 AM EDT Preoperative Education Checklist- General Surgery date: 05/27/24 Surgery time: 0730 a.m. Arrival time: 0610 a.m. 1. Bring a photo ID and your insurance card with you the day of surgery. You will check in at the main lobby of the [facility]- registration desk is straight ahead as soon as you walk in. Tell them you are here for surgery. 2. If you have a Living Will/Durable Power of Level Vial Grinder for Health Care that is not on [...] after you have bathed. 5. NO nail nepalese/acrylic on at least one finger. If you are having a hand, wrist or foot surgery then all nail nepalese and artificial/acrylic nails must be removed from [...] please call the Preadmission Testing office at [phone], Mon.-Fri. 7 a.m.-3 p.m. Leave a voicemail [...] reviewed. Patient verbalized understanding. [facility] Nurse Note* Perioperative Nursing Note - Ora Delvalle RN - 04/27/2024 8:15 AM EDT Preoperative Education Checklist- General Surgery date: 05/27/24 Surgery time: 0730 a.m. Arrival time: 0610 a.m. 1. Bring a photo ID and your insurance card with you the day of surgery. You will check in at the main lobby of the [facility]- registration desk is straight ahead as soon as you walk in. Tell them you are here for surgery. 2. If you have a Living Will/Durable Power of Level Vial Grinder for Health Care that is not on [...] after you have bathed. 5. NO nail nepalese/acrylic on at least one finger. If you are having a hand, wrist or foot surgery then all nail nepalese and artificial/acrylic nails must be removed from [...] please call the Preadmission Testing office at [phone], Mon.-Fri. 7 a.m.-3 p.m. Leave a voicemail [...] go swimming or use a hot tub ([employer]), or perform activities where your hand or [...] to the follow-up appointment with your doctor. [facility]08-05-2024 Nurse Note* Perioperative Nursing Note - Ora Delvalle RN - 04/27/2024 8:15 AM EDT Hibiclens and surgical instructions reviewed. Patient verbalized understanding. [facility] HospitalEvaluation [facility]* Diagnosis Onset Date Resolution Status GERD (gastroesophageal reflux disease) acuteHypomagnesemiaacutePrimary hypertensionHolzer Hospital Work Phone: Evaluation note* Diagnosis Onset Date Resolution Status GERD (gastroesophageal reflux disease) acuteHypomagnesemiaacutePrimary hypertensionacuteDyspepsiaacuteGERD (gastroesophageal reflux disease)[facility] Work Phone: Evaluation note* Diagnosis Restless legs syndrome Restless legs syndrome (RLS) documented in this encounter [facility] HealthcareEvaluation note* Diagnosis Cubital tunnel syndrome on right- Primary documented in this encounter [facility] HealthcareEvaluation note* Diagnosis Essential hypertension, benign [...] Morbid (severe) obesity due to excess calories ([facility]) Body mass index (BMI) 38.0-38.9, adult Obesity (BMI 30-39.9) Cigarette nicotine dependence without complication Gastroesophageal reflux disease, unspecified whether esophagitis present Hypomagnesemia Disorders of magnesium metabolism Pre-operative clearance- Primary Unspecified pre-operative examination Hypomagnesemia Disorders of magnesium metabolism Restless legs syndrome Restless legs syndrome (RLS) COPD with acute exacerbation ([facility]/HCC) Chronic bronchitis, unspecified chronic bronchitis type (CMS/HCC) [...] myalgia and myositis documented in this encounter [facility] HealthcareEvaluation note* Diagnosis Essential hypertension, benign [...] of magnesium metabolism documented in this encounter [facility] HealthcareEvaluation noteNo assessment information availableMount Carmel Health System Work Phone: Evaluation note* Diagnosis Essential hypertension, [...] bronchitis type (CMS/HCC) documented in this encounter [facility] HealthcareEvaluation note* Diagnosis Essential hypertension, benign [...] Hypertension, unspecified type documented in this encounter [facility]* Diagnosis Onset Date Resolution Status Admit Date GERD (gastroesophageal reflux disease) acuteMarch 2024 1:43pmHypomagnesemiaacuteMarch 2024 1:43pmPrimary hypertensionacuteMarch 2024 1:43pm [facility] Work Phone: Evaluation note* Diagnosis Essential [...] Morbid (severe) obesity due to excess calories ([facility]) Body mass index (BMI) 38.0-38.9, adult Obesity [...] Morbid (severe) obesity due to excess calories ([facility]) Gastro-esophageal reflux disease without esophagitis Body mass [...] hypertension, benign Chronic kidney disease, stage 3a ([facility]) Gastro-esophageal reflux disease without esophagitis Morbid (severe) [...] Morbid (severe) obesity due to excess calories ([facility]) Body mass index (BMI) 38.0-38.9, adult Obesity [...] Morbid (severe) obesity due to excess calories ([facility]) Gastro-esophageal reflux disease without esophagitis Body [...] not elsewhere classified documented in this encounter [facility] HealthcareEvaluation note* Diagnosis Chronic venous insufficiency- Primary Unspecified venous (peripheral) insufficiency Chronic deep vein thrombosis (DVT) of popliteal vein of left lower extremity ([facility]) 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 ([facility]) documented in this encounter [facility] SystemEvaluation note* Diagnosis Onset Date Resolution Status Admit Date GERD (gastroesophageal reflux disease) acuteJuly 2024 2:37pmHypomagnesemiaacuteJuly 2024 2:37pmPrimary hypertensionacuteJuly 2024 2:37pm [facility] Work Phone: Evaluation note* Diagnosis Essential [...] Morbid (severe) obesity due to excess calories ([facility]) Body mass index (BMI) 38.0-38.9, adult Obesity [...] Morbid (severe) obesity due to excess calories ([facility]) Gastro-esophageal reflux disease without esophagitis Body [...] hypertension, benign Chronic kidney disease, stage 3a ([facility]) Gastro-esophageal reflux disease without esophagitis Morbid (severe) obesity due to excess calories ([facility]) Mixed hyperlipidemia Mixed hyperlipidemia Hypomagnesemia Disorders [...] hand, unspecified cause documented in this encounter [facility] HealthcareEvaluation note* Diagnosis Chronic venous insufficiency- Primary Unspecified venous (peripheral) insufficiency Chronic deep vein thrombosis (DVT) of popliteal vein of left lower extremity (CMS-HCC) 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 (CMS-HCC) 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 (CMS-HCC)- Primary Chronic deep vein thrombosis (DVT) of left thigh (CMS-HCC) documented in this encounter [facility] SystemEvaluation note* Diagnosis Essential hypertension, benign- Primary [...] Morbid (severe) obesity due to excess calories ([facility]) Body mass index (BMI) [...] Morbid (severe) obesity due to excess calories ([facility]) Gastro-esophageal reflux disease without esophagitis Body [...] hypertension, benign Chronic kidney disease, stage 3a ([facility]) Gastro-esophageal reflux disease without esophagitis Morbid (severe) obesity due to excess calories ([facility]) Mixed hyperlipidemia Mixed hyperlipidemia Hypomagnesemia Disorders of magnesium metabolism Screening for prostate cancer Special screening for malignant neoplasm of prostate Marijuana use Hypothyroidism, unspecified type Fibromyalgia Unspecified myalgia and myositis Cellulitis of left lower extremity- Primary Essential hypertension, benign Essential hypertension, benign Morbid (severe) obesity due to excess calories ([facility]) Hypomagnesemia Disorders of magnesium metabolism Cigarette [...] legs syndrome (RLS) documented in this encounter [facility] HealthcareEvaluation note* Diagnosis Chronic venous insufficiency- [...] and eczema (CMS-HCC) documented in this encounter [facility] SystemEvaluation note* Diagnosis Chronic venous insufficiency- Primary [...] and eczema (CMS-HCC) [facility]* Diagnosis Onset Date Resolution Status Admit Date Essential hypertension, benign acuteOctober 2024 9:23amGERD without esophagitisacuteOctober 2024 9:23amHypomagnesemiaacuteOctober 2024 9:23amHypothyroidismacuteOctober 2024 9:23amNicotine dependenceacuteOctober 2024 9:23amOSA (obstructive sleep apnea)acuteOctober 2024 9:23am [facility] Work Phone: Evaluation note* Diagnosis Chronic venous [...] eczema (CMS-HCC)- Primary documented in this encounter [facility] SystemHistory and physical note Author James Elaine [facility] July 09, 2024 1:12pmNote Date/TimeOctober 2023 1:12[place] [address] Gastroenterology H&P Signed Patient: Abram Guillaume MR#: [id number] 4 : 1965 Acct:[id number] Age/Sex: 58 / M Adm Date: 4 Loc: Room: Type: [facility] Attending Dr: James Elaine MD Copies [...] signed by James Elaine MD> 07/09/24 1312 [facility] Work Phone: Hospital Discharge instructions Additional Instructions [...] -Continue omeprazole 40 mg daily -Office number [phone]. [facility] Work Phone: InstructionsNot on filedocumented in this encounter [facility] SystemInstructionsNot on filedocumented in this encounter [facility] SystemInstructionsNot on filedocumented in this encounter [facility] SystemInstructionsNot on filedocumented in this encounter [facility] SystemReason for referral (narrative)No reason for referral information availablePremier Health Work Phone: Summary Purpose Family History No [...] ECG 12 lead Rupert Bo DO [address] [facility] [address] [place] [address] Referral IDStatusReasonStart DateExpiration DateVisits RequestedVisits [id number] Review Additional Source Comments (unrecognized sect ion and content) No Status Records FoundNo Status Records FoundNo Status Records FoundNo Status Records FoundNo Status Records FoundNo Status Records Found INFORMATION SOURCE (unrecogn ized section and content) DATE CREATED AUTHOR 05/18/2022 [facility] DATE CREATED AUTHOR AUTHOR'S ORGANIZ ATION 07/22/2022 [facility] DATE CREATED AUTHOR AUTHOR'S ORGANIZ ATION 10/16/2024 [facility] DATE CREATED AUTHOR AUTHOR'S ORGANIZ ATION 05/07/2025 [facility] EPIC DATE CREATED AUTHOR AUTHOR'S ORGANIZ ATION 07/16/2025 [facility] DATE CREATED AUTHOR AUTHOR'S ORGANIZ ATION 07/24/2025 [facility] Care Teams (unrecognized sec tion [...] March 19, 2024 End: March 19, 2024Pepper SextonPrimary [facility] Care ProviderActiveStart: March 19, 2024 End: March 19, 2024 Team Status: Inactive Member Role Status Dates Pepper Sexton Primary Care Provider Active Sta rt: June 23, 2024 End: June 23kellen Dejesusdeon RENEEana maría ProviderActiveStart: June 23, 2024 End: June 23, 2024Team MemberRelationshipSpecialtyStart DateEnd Date Anastacio Hinojosa MD [address] [place] [phone] PCP - GeneralFamily Medicine11/26/23 Pepper Sexton NP [address] [place] [phone] PCP - [place] [employer]04/23/24 Pepper Sexton NP [address] [place] [phone] Nurse PractitionerPeter [facility]11/26/23 Team Status: Inactive Member Role Status Dates Pepper Sexton Primary Care Provider Active Sta rt: June 24, 2024 End: June 24Dandy Lucio ProviderActiveStart: June 24, 2024 End: June 24, 2024Team MemberRelationshipSpecialtyStart DateEnd Date Anastacio Hinojosa MD [address] [place] [phone] PCP - GeneralFaprly Medicine11/26/23 Pepper Sexton NP [address] [place] [phone] PCP - [place] [employer]04/23/24 Pepper Sexton NP [address] [place] [phone] Nurse PractitionerPeter [facility] Medicine11/26/23Team MemberRelationshipSpecialtyStart DateEnd Date Anastacio Hinojosa MD [address] [place] [address] PCP - GeneralFamily Medicine11/26/23 Pepper Sexton NP [address] [place] [address] PCP - [place] [employer]04/23/24 Pepper Sexton NP [address] [place] [address] Nurse PractitionerFamily Medicine11/26/23Team MemberRelationshipSpecialtyStart DateEnd Date Anastacio Hinojosa MD [address] [place] [address] PCP - GeneralFamily Medicine11/26/23 Pepper Sexton NP [address] [place] [address] PCP - [place] [employer]04/23/24 Pepper Sexton NP [address] [place] [address] Nurse PractitionerFamily Medicine11/26/23Team MemberRelationshipSpecialtyStart DateEnd Date Anastacio Hinojosa MD [address] [place] [address] PCP - GeneralFamily Medicine11/26/23 Pepper Sexton NP [address] [place] [address] PCP - [place] [employer] [employer]04/23/24 Pepper Sexton NP [address] [place] [address] Nurse PractitionerPeter [facility] Medicine11/26/23Team MemberRelationshipSpecialtyStart DateEnd Date Anastacio Hinojosa MD [address] [place] [address] PCP - [facility]11/26/23 Pepper Sexton NP [address] [place] [address] PCP - [place] [employer] [employer]04/23/24 Pepper Sexton NP [address] [place] [address] [facility]/26/23 Team Status: Inactive Member Role Status [...] Anastacio Hinojosa MD [address] [place] [address] PCP - GeneralFamily Medicine11/26/23 Pepper Sexton NP [address] [place] [address] PCP - [place] [employer]04/23/24 Pepper Sexton NP [address] [place] [address] [facility]11/26/23Team MemberRelationshipSpecialtyStart DateEnd Date Anastacio Hinojosa MD [address] [place] [address] PCP - GeneralFamily Medicine11/26/23 Pepper Sexton NP [address] [place] [address] PCP - [place] [employer]04/23/24 Pepper Sexton NP [address] [place] [address] [facility]11/26/23Team MemberRelationshipSpecialtyStart DateEnd Date Anastacio Hinojosa MD [address] [place] [address] PCP - GeneralFamily Medicine11/26/23 Pepper Sexton NP [address] [place] [address] PCP - [place] [employer]04/23/24 Pepper Sexton NP [address] [place] [address] Nurse PractitionerPeter [facility] Medicine11/26/23Team MemberRelationshipSpecialtyStart DateEnd Date Anastacio Hinojosa MD [address] [place] [address] PCP - GeneralPeter [facility] Medicine11/26/23 Pepper Sexton NP [address] [place] [address] Nurse PractitionerPeter [facility] Medicine11/26/23Team MemberRelationshipSpecialtyStart DateEnd Date Anastacio Hinojosa MD [address] [place] [address] PCP - [facility] Medicine11/26/23 Pepper Sexton NP [address] [place] [address] PCP - [place] [employer]04/23/24 Pepper Sexton NP [address] [place] [address] Nurse PractitionerPeter [facility] Medicine11/26/23Team MemberRelationshipSpecialtyStart DateEnd Date Anastacio Hinojosa MD [address] [place] [address] PCP - GeneralPeter [facility] Medicine11/26/23 Pepper Sexton NP [address] [place] [address] PCP - [place] [employer]04/23/24 Pepper Sexton NP [address] [place] [address] Nurse PractitionerFamily Medicine11/26/23 Team Status: Inactive Member [...] Anastacio Hinojosa MD [address] [place] [address] PCP - GeneralFamily Medicine11/26/23 Pepper Sexton NP [address] [place] [address] PCP - [place] [employer] [employer]04/23/24 Pepper Sexton NP [address] [place] [address] Nurse PractitionerFamily Medicine11/26/23Team MemberRelationshipSpecialtyStart DateEnd Date Anastacio Hinojosa MD [address] [place] [address] PCP - GeneralFamily Medicine11/26/23 Pepper Sexton NP [address] [place] [address] PCP - [place] [employer] [employer]04/23/24 Pepper Sexton NP [address] [place] [address] Nurse PractitionerFamily Medicine11/26/23Team MemberRelationshipSpecialtyStart DateEnd Date Anastacio Hinojosa MD [address] [place] [address] PCP - GeneralFaprly Medicine11/26/23 Pepper Sexton NP [address] [place] [address] PCP - [place] [employer]04/23/24 Pepper Sexton NP [address] [place] [address] [facility]11/26/23Team MemberRelationshipSpecialtyStart DateEnd Date Anastacio Hinojosa MD [address] [place] [address] PCP - GeneralFamily Medicine11/26/23 Pepper Sexton NP [address] [place] [address] PCP - [place] [employer]04/23/24 Pepper Sexton NP [address] [place] [address] Nurse PractitionerFamily Medicine11/26/23Team MemberRelationshipSpecialtyStart DateEnd Date Anastacio Hinojosa MD [address] [place] [address] PCP - GeneralFamily Medicine11/26/23 Pepper Sexton NP [address] [place] [address] PCP - [place] [employer]04/23/24 Pepper Sexton NP [address] [place] [address] [facility]11/26/23Team MemberRelationshipSpecialtyStart DateEnd Date Anastacio Hinojosa MD [address] [place] [address] PCP - Generalmily Medicine11/26/23 Pepper Sexton NP [address] [place] [address] PCP - [place] [employer] [employer]04/23/24 Pepper Sexton NP [address] [place] [address] Nurse Practitionermily Medicine11/26/23Team MemberRelationshipSpecialtyStart DateEnd Date Pepper Sexton, TRIAL COURT JUDGE-MDS RN [address] [place] [address] PCP - GeneralNurse [facility]05/10/22 Team Status: Active Member Role Status Dates [...] Hinojosa MD [address] [place] [address] PCP - GeneralFamily Medicine11/26/23 Pepper Sexton NP [address] [place] [address] PCP - [place] [employer] [employer]04/23/24 Pepper Sexton NP [address] [place] [address] [facility]11/26/23Team MemberRelationshipSpecialtyStart DateEnd Date Anastacio Hinojosa MD [address] [place] [address] PCP - GeneralFamily Medicine11/26/23 Pepper Sexton NP [address] [place] [address] PCP - [place] [employer] [employer]04/23/24 Pepper Sexton NP [address] [place] [address] [facility]11/26/23Team MemberRelationshipSpecialtyStart DateEnd Date Anastacio Hinojosa MD [address] [place] [address] PCP - Generalmily Medicine11/26/23 Pepper Sexton, REMBERTO [address] [place] [address] Nurse PractitionerPeter [facility] Medicine11/26/23Team MemberRelationshipSpecialtyStart DateEnd Date Anastacio Hinojosa MD [address] [place] [address] PCP - GeneralPeter [facility] Medicine11/26/23 Pepper Sexton, REMBERTO [address] [place] [address] Nurse PractitionerPeter [facility] Medicine11/26/23Team MemberRelationshipSpecialtyStart DateEnd Date Anastacio Hinojosa MD [address] [place] [address] PCP - GeneralPeter [facility] Medicine11/26/23 Pepper Sexton NP [address] [place] [address] Nurse PractitionerPeter [facility] Medicine11/26/23Team MemberRelationshipSpecialtyStart DateEnd Date Anastacio Hinojosa MD [address] [place] [address] PCP - GeneralFamily Medicine11/26/23 Pepper Sexton NP [address] [place] [address] Nurse Practitionermily Medicine11/26/23Team MemberRelationshipSpecialtyStart DateEnd Date Anastacio Hinojosa MD [address] [place] [address] PCP - GeneralFamily Medicine11/26/23 Pepper Sexton NP [address] [place] [address] Nurse Practitionermily Medicine11/26/23Team MemberRelationshipSpecialtyStart DateEnd Date Anastacio Hinojosa MD [address] [place] [address] PCP - GeneralFamily Medicine11/26/23 Pepper Sexton NP [address] [place] [address] Nurse Practitionermily Medicine11/26/23Team MemberRelationshipSpecialtyStart DateEnd Date Anastacio Hinojosa MD [address] [place] [address] PCP - GeneralFamily Medicine11/26/23 Pepper Sexton NP [address] [place] [address] Nurse PractitionerPeter [facility] Medicine11/26/23Team MemberRelationshipSpecialtyStart DateEnd Date Anastacio Hinojosa MD [address] [place] [address] PCP - GeneralPeter [facility] Medicine11/26/23 Pepper Sexton NP [address] [place] [address] Nurse PractitionerPeter [facility] Medicine11/26/23Team MemberRelationshipSpecialtyStart DateEnd Date Anastacio Hinojosa MD [address] [place] [address] PCP - [facility] Medicine11/26/23 Pepper Sexton NP [address] [place] [address] [facility]11/26/23Team MemberRelationshipSpecialtyStart DateEnd Date Pepper Sexton, TRIAL COURT JUDGE-MDS RN [facility] - [facility]05/[facility]/22Team MemberRelationshipSpecialtyStart Date End Date Anastacio Hinojosa MD [address] [place] [address] [facility] - [facility]11/26/23 Pepper Sexton NP [address] [place] [address] [facility]11/26/23Team MemberRelationshipSpecialtyStart DateEnd Date Anastacio Hinojosa MD [address] [place] [address] PCP - GeneralFamily Medicine11/26/23 Pepper Sexton NP [address] [place] [address] [facility]11/26/23Team MemberRelationshipSpecialtyStart DateEnd Date Anastacio Hinojosa MD [address] [place] [address] PCP - Generalmily Medicine11/26/23 Pepper Sexton NP [address] [place] [address] Nurse PractitionerPeter [facility] Medicine11/26/23Team MemberRelationshipSpecialtyStart DateEnd Date Pepper Sexton, TRIAL COURT JUDGE-MDS RN PCP - GeneralNurse Practitioner05/10/22Team MemberRelationshipSpecialtyStart Date End Date Anastacio Hinojosa MD [address] [place] [address] PCP - GeneralFamily Medicine11/26/23 Pepper Sexton NP [address] [place] [address] Nurse PractitionerFamily Medicine11/26/23Team MemberRelationshipSpecialtyStart DateEnd Date Anastacio Hinojosa MD [address] [place] [address] PCP - GeneralFamily Medicine11/26/23 Pepper Sexton NP [address] [place] [address] Nurse PractitionerPeter [facility] Medicine11/26/23Team MemberRelationshipSpecialtyStart DateEnd Date Anastacio Hinojosa MD [address] [place] [address] P[facility] - [facility]11/26/23 Pepper Sexton NP [address] [place] [address] Nurse PractitionerPeter [facility] Medicine11/26/23Team MemberRelationshipSpecialtyStart DateEnd Date Pepper Sexton APRN-MDS RN PCP - GeneralNurse Practitioner05/10/22Team MemberRelationshipSpecialtyStart Date End Date Pepper Sexton APRN-MDS RN PCP - GeneralNurse Practitioner05/10/22 Team Status: Active Member Role/Relationship Status Dates Pepper Sexton NP-[employer] Primary Care Provider Active Team Status: Active Member Role/Relationship Status Dates EVANGELINA Calix Primary Care Provider Active Start: April 13, 2025 Pavithra Medina ProviderActiveStart: April 13, 2025 Team Status: Active Member Role/Relationship Status Dates Pepper Sexton CONTACT CENTER REP-C Primary Care Provider Active Start: May 06, 2025 Pavithra Medina ProviderActiveStart: May 06, 2025 Team Status: Active Member Role/Relationship Status Dates Pepper Sexton CONTACT CENTER REP-C Primary Care Provider Active Start: May 26, 2025 Davidfede OlegDemetria chavarriaending ProviderActiveStart: May 26, 2025 Team Status: Active Member Role/Relationship Status Dates Pepper Sexton CONTACT CENTER REP-C Primary Care Provider Active Start: June 16, 2025 Demetria Medinaending ProviderActiveStart: June 16, 2025 Team Status: Inactive Member Role/Relationship Status Dates Pepper Sexton CONTACT CENTER REP-C Primary Care Provider Active Start: July 12, 2025 End: July 12, 2025Pepper Sexton NP-CAttenconnie ProviderActiveStart: July 12, 2025 End: July 12, 2025Team MemberRelationshipSpecialtyStart DateEnd Date Pepper Sexton, TRIAL COURT JUDGE-MDS RN PCP - GeneralNurse Practitioner05/10/22 Goals (unrecognized section [...] Visit (unrecogniz ed section and content) ReasonCommentsFollow-upReasonOnset UxkjFhcgexusccqnscslq46/17/2024ReasonComments Med TcvoomNqbjhuYozxuaadByps-iqImscosLyduccldEekjghxltctrXxpxgqOvwxvjtuImzlph-jz 3mReasonCommentscellulitus of legReasonCommentsCellulitis of left lower extremity Left leg swellingSpecialtyDiagnoses / ProceduresReferred By Contact Referred To ContactVascular Surgery Diagnoses Cellulitis of left lower extremity Left leg swelling Procedures [place] OFFICE OUTPATIENT VISIT 60-74 MINS [facility] [id number] (SNOMED CT) - AMB REFERRAL TO VASCULAR SURGERY Pepper Sexton, TRIAL COURT JUDGE-MDS RN Phone: tel: fax: Fátima Isabel MD [address], [address] [address] Phone: tel:[phone] fax: Referral IDStatusReasonStart DateExpiration DateVisits RequestedVisits [id number] up testingFollow up with testing and compression. [...] BE BASED ON THE PRIMARY CLINICAL RECORDS. [employer] provides no warranty or guarantee of the accuracy or completeness of information in this document.
[2025-08-25 10:34] LABS: Magnesium 0.8 mg/dL (1.8-2.4)
== END 2025-08-25 09:28 | disposition home or self-care (01) ==
LOC: LAB 09:30
PROVIDERS: PCP Nurse Practitioner; Visit Provider Internal Medicine Nephrology
DX: E83.42 Hypomagnesemia (principal); K21.00 Gastro-esophageal reflux disease with esophagitis, without bleeding; I10 Essential (primary) hypertension
CPT/HCPCS: 36415; 83735

== ENCOUNTER 2025-09-20 11:41 | Outpatient (OUT) | payer OTHER, SELFPAY ==
--- OUTSIDE RECORDS SUMMARY | 2025-09-20 11:44 | XMS_ITS | Clinical Summary ---
Author Organization [employer] Address [facility] [id number] [address] [place] [address] Care Team Providers Care Senior Tax Manager Name Role Phone Carlie Pepper Wheeler APRN-SMOG TECHNICIAN Primary Care Provider Allergies No known [...] of lower extremity with varicose ulcer and wndgnl6504/01/2025 Assessment & Plan (07/22/2025 10:33 AM EDT): Continue compression therapy and calamine cream. Follow up in 3 months. Assessment & Plan (04/29/2025 8:56 AM EDT): Left SSV Ablation and sclerotherapy. Compression stockings. Assessment & Plan (04/01/2025 10:43 AM EDT): Compression therapy leg elevation exercise. Calamine cream. We will get venous reflux ultrasound. 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 ([facility]) (Primary Dx)07/22/20255632Wlstby70/22/2025 12:43 PM EDT - 07/14/2025 11:59 PM EDT Hospital Encounter [facility] - Vascular [address] [facility] [place] [address] Robert Kumar MD H/O prior ablation treatment; 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 ([facility]) Discharge Disposition: Home07/14/20253729Lmaevb44/16/2025 2:37 PM EDTAnesthesia Event [facility] - Surgery [address] [place] [address] German Yip, DO 07/08/2025 2:00 PM EDT - 07/08/2025 3:00 PM EDTSurgery [facility] - Surgery [address] [place] [address] Robert Kumar MD ABLATION VENOUS UFIXTZWELBOKGE-DCB-ZSRPUANQY95/16/2025 11:49 AM EDT - 07/08/2025 4:01 PM EDTHospital Encounter [facility] - Surgery [address] [place] [address] Robert Kumar MD Preop examination (Primary Dx); Hypomagnesemia Discharge Disposition: Home07/08/20255127Qldkzj43/13/2025 9:55 AM EDT - 07/05/2025 11:59 PM EDTHospital Encounter [facility] - Cardiovascular [address] [place] [address] Kd Moffett MD Preop examination; Hypertension, unspecified type Discharge Disposition: Home07/05/2025 9:45 AM EDTProcedure visit [facility] - Pre Admit [address] [place] [address] Preop examination (Primary Dx); Hypertension, unspecified type; Bgvrcdqrohdnpa36/13/5993Eqlnhj62/10/2025Orders Only [facility] [place] [facility] [address] [place] [address] Lissy Berger H/O prior ablation treatment (Primary Dx); 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 ([facility])from Last 3 Months Family History Medical HistoryRelationNameCommentsNo Known ProblemsFatherArthritisMother RelationNameStatusCommentsFatherDeceasedMotherAlive Social History Tobacco UseTypesPacks/DayYears UsedDateSmoking Tobacco: NeverSmokeless Tobacco: Never Tobacco Cessation:Counseling Given: Not Answered Alcohol UseStandard Drinks/WeekCommentsYes4 (1 standard drink = 0.6 oz pure alcohol)social/recreationalChildcareAnswerDate RecordedChildcareUnknown 03/04/2019EmploymentAnswerDate JrlscbdqHezrhvgszdTxbtxib17/12/2019Sex and Gender InformationValueDate RecordedSex Assigned at BirthNot on fileLegal SexMale 04/28/2015 11:51 AM EDTGender IdentityNot on fileSexual OrientationNot on file Last Filed Vital Signs Vital SignReadingTime TakenCommentsBlood Sqphlnxi967/3269807/22/2025 10:18 AM EDT Tcpag174007/08/2025 3:44 PM FIWZrmtpzrhtts85.2 ??C (97.1 ??F)07/08/2025 3:29 PM EDTRespiratory Rbpt6209 3:29 PM EDTOxygen Otorgplvmy61%07/08/2025 3:44 PM EDTInhaled Oxygen Concentration--Jokomf447.9 kg (282 lb)07/22/2025 10:18 AM SLZOvctqx783.3 cm (5' 9 )07/22/2025 10:18 AM EDTBody Mass Index41.6407/22/2025 10:18 AM EDT Plan of Treatment DateTypeDepartmentCare Team (Latest Contact Info)Iuwmeigldgq22/05/2026 10:00 AM ESTOffice Visit [facility] [place] [address] [place] [phone] Vanessa Bedolla, POWERHOUSE ELECTRICIAN APPRENTICE-SMOG TECHNICIAN [address] [place], [place] [phone] Health MaintenanceDue DateLast DoneCommentsDepression Dmglnwgjz24/17/1980Adult BMI Follow Up Plan1985DTaP,Tdap and Td Vaccines (1 - Tdap)1986Zoster (Shingles) Vaccine (1 of 2)2017Influenza Htronlt7305/24/2025dult BMI Bcsxghwbi45Tobacco Judnlzvae20 Medical Devices Not on file Procedures Procedure NamePriorityDate/TimeAssociated DiagnosisCommentsVASC VENOUS DUPLEX LOWER MLPNWcxwqva30/22/2025 1:16 PM EDT H/O prior ablation treatment 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 (CMS-HCC) SCLEROTHERAPY LOWER PGTCVUISI51/16/2025 2:37 PM EDT 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 (CMS-HCC) ABLATION VENOUS LFKIPUOREZRSQZ16/16/2025 2:37 PM EDT 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 (CMS-HCC) VAQTFYADLFBMR27/16/2025 1:59 PM EDT ECG 12-YONAXgspmoo22/13/2025 10:20 AM EDT Preop examination Hypertension, unspecified type FPWAEHSJQRevazgr91/13/2025 10:15 AM EDT Preop examination Hypertension, unspecified type Hypomagnesemia HTQHMonfeoh27/13/2025 10:15 AM EDT 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 Authorizing ProviderResult TypeResult StatusMohelen Kumar [facility] [place] [facility]ULAR ORDERABLESFinal Result * (ABNORMAL) Magnesium (07/08/2025 1:59 PM EDT) Only the most recent of2 resultswithin the time period is included. ComponentValueRef RangeTest MethodAnalysis TimePerformed AtPathologist Signature MAGNESIUM1.7(L)1.8 - 2.6 mg/dL07/08/2025 2:12 PM EDTPToledo Hospital (Source)Anatomical Location / LateralityCollection Method / VolumeCollection TimeReceived TimeBloodVenous blood / UnknownVenipuncture / Fokonpq1807/08/2025 1:59 PM EDT1 1:59 PM EDT Narrative Authorizing ProviderResult TypeResult StatusMohelen WIN BLOOD ORDERABLESFinal ResultPerforming OrganizationAddressCity/State/ZIP CodePhone Number [facility] [address] [place] [address], * ECG 12 lead (07/05/2025 10:20 AM EDT)Specimen (Source)Anatomical Location / LateralityCollection Method / VolumeCollection TimeReceived Time07/05/2025 10:20 AM EDT Narrative TRACEMASTERVUE - 07/05/2025 11:57 AM EDT Authorizing ProviderResult TypeResult StatusDamichael Moffett MDECG ORDERABLES Final ResultPerforming OrganizationAddressCity/State/ZIP CodePhone Number TRACEMASTERVUE * APTT (07/05/2025 10:15 AM EDT)ComponentValueRef RangeTest MethodAnalysis Time Performed AtPathologist CkpfusklrVAIG7771 - 37 sec07/05/2025 11:07 AM EDT [facility] (Source)Anatomical Location / LateralityCollection Method / VolumeCollection TimeReceived TimeBloodVenous blood / UnknownVenipuncture / Rqccwjc7207/05/2025 10:15 AM EDT1 10:18 AM EDT Narrative Authorizing ProviderResult TypeResult StatusMohamed Sonia José WIN BLOOD ORDERABLESFinal ResultPerforming OrganizationAddressCity/State/ZIP CodePhone Number [address] [place] [address], [place] * Protime-INR (07/05/2025 10:15 AM EDT)ComponentValueRef RangeTest Method Analysis TimePerformed AtPathologist CrfbiplllTOFKWVE53.29.8 - 13.2 sec 07/05/2025 11:07 AM EDTPTHE BELLEVUE HOSPITALINR1.00.9 - 1.2 07/05/2025 11:07 AM [facility] (Source) Anatomical Location / LateralityCollection Method / VolumeCollection Time Received TimeBloodVenous blood / UnknownVenipuncture / Yxcqqeq8107/05/2025 10:15 AM EDT1 10:18 AM EDT Narrative Authorizing ProviderResult TypeResult StatusMohamed Sonia José WIN BLOOD ORDERABLESFinal ResultPerforming OrganizationAddressCity/State/ZIP CodePhone Number [address] [place] [address], [place] * CBC (07/05/2025 10:15 AM EDT)ComponentValueRef RangeTest MethodAnalysis Time Performed AtPathologist SignatureWBC8.44 - 11 x10E9/L1 1:25 PM EDT [facility] LABORATORYRBC Count4.614.1 - 5.7 X10E12/L1 1:25 PM [facility] IKXKLVWQSJLzsaofapbp38.813 - 17 g/dL 07/05/2025 1:25 PM [facility] GPKWLKIWWLPjkkskeums80.239 - 50 %07/05/2025 1:25 PM [facility] LPVVLUPNDWNBK8906 - 100 fL 07/05/2025 1:25 PM [facility] BGHJOZLQTZXCT71.927 - 34 pg 07/05/2025 1:25 PM [facility] UGRGBVIRFIGCYD15.832 - 36 g/dL 07/05/2025 1:25 PM [facility] YPXVIBYBUPTED17.511.5 - 15 % 07/05/2025 1:25 PM [facility] LABORATORYPlatelet Ycujh691652 - 450 X10E9/L1 1:25 PM [facility] LABORATORYMPV8.67 - 12 fL07/05/2025 1:25 PM [facility] LABORATORYSpecimen (Source)Anatomical Location / LateralityCollection Method / VolumeCollection TimeReceived TimeBloodVenous blood / UnknownVenipuncture / Dnfhkby1207/05/2025 10:15 AM EDT1 10:18 AM EDT Narrative Authorizing ProviderResult TypeResult StatusMohamed F José CARTAGENALAB BLOOD ORDERABLESFinal ResultPerforming OrganizationAddressCity/State/ZIP CodePhone Number [facility] [address] [place] [address], * (ABNORMAL) Basic Metabolic Panel (07/05/2025 10:15 AM EDT)ComponentValueRef RangeTest MethodAnalysis TimePerformed AtPathologist OxgglujhtCOISHL535373 - 146 mmol/L1 1:50 PM [facility] LABORATORYPOTASSIUM 3.83.5 - 5.0 mmol/L1 1:50 PM [facility] HLLKLWJX87629 - 109 mmol/L1 1:50 PM [facility] LABORATORYCARBON CVJMYNZ8613 - 32 mmol/L1 1:50 PM [facility] LABORATORYANION RCG074 - 15 mmol/L1 1:50 PM [facility] LABORATORYBLOOD UREA VANROWQN674 - 23 mg/dL07/05/2025 1:50 PM [facility] LABORATORYCREATININE1.130.60 - 1.30 mg/dL 07/05/2025 1:50 PM [facility] LABORATORYComment:METHOD TRACEABLE TO IDMS GVLWEBZTUXQAZHF648(H)65 - 99 mg/dL07/05/2025 1:50 PM EDT [facility] LABORATORYCALCIUM8.78.5 - 10.5 mg/dL07/05/2025 1:50 PM [facility] LABORATORYEGFR Non-Race Nbzzgddnw75>=60 ml/min/1.73sq.m1 1:50 PM [facility] Comment: Reported eGFR is based on the CKD-EPI 2020 equation that does not use a race coefficient. Specimen (Source)Anatomical Location / LateralityCollection Method / Volume Collection TimeReceived TimeBloodVenous blood / UnknownVenipuncture / Unknown 07/05/2025 10:15 AM EDT1 10:18 AM EDT Narrative Authorizing ProviderResult TypeResult StatusMohamed Sonia WIN BLOOD ORDERABLESFinal ResultPerforming OrganizationAddressCity/State/ZIP CodePhone Number [facility] [address] [place] [address], from Last 3 Months Insurance Advance Directives * Full Code (Latest Code Status on File) Date ActivatedDate InactivatedComments12/16/2021 11:22 AM12/16/2021 5:00 PM Care Teams Team MemberRelationshipSpecialtyStart DateEnd Date Pepper Sexton, POWERHOUSE ELECTRICIAN APPRENTICE-SMOG TECHNICIAN PCP - GeneralNurse Practitioner8/18/22
--- OUTSIDE RECORDS SUMMARY | 2025-09-20 11:44 | XMS_ITS | Patient Health Record ---
Author Organization [facility] Address [address] [place] [address] Care Team Providers Care Hoisting Engine Operator Name Role Phone Reny Branch Unavailable Reason For Referral No Information Problems Problem Type SNOMED Code ICD Code Onset Dates Problem Status W/U Status Risk Notes Problem Cellulitis of lower limb (795293 006) Cellulitis of left lower extremity (L03.116) ActiveconfirmedProblemPain in limb (24095906)Pain of left leg (M79.605)Active confirmed Encounters Encounter Location Date Provider Diagnosis [facility] [address] [place] [address] 02/10/2025 Reny Branch Cellulitis of left lower extremity L03.116 and Pain of left leg M79.605 Assessments Encounter Date Diagnosis (ICD Code) Assessment Notes Treatment Notes Treatment Clinical Notes Section Notes 02/10/2025 Pain of left leg (ICD-10 - M79.6 05) 02/10/2025ellulitis of left lower extremity (ICD-10 - L03.116) Plan Of Treatment No Information Insurance Providers Payer Name Payer Address Payer Phone Subscriber Number Group Number Insured Name Patient Relationship to Insured Coverage Start Date Coverage End Date [place] [address] [place] [address] [id number] Mariano Sheehanelf - patient is the [id number] 2024
--- OUTSIDE RECORDS SUMMARY | 2025-09-20 11:44 | XMS_ITS | Clinical Summary ---
Author Organization [facility] Address [address] [place] [address] Care Team Providers Care Wildlife Technician Name Role Phone Delmer Bryan MD Primary Care Provider [phone] Social History Tobacco UseTypesPacks/DayYears UsedDateSmoking Tobacco: Never AssessedUT Safety & EnvironmentAnswerDate RecordedFear of Current or Ex-PartnerNot on file 11/14/2023Emotionally AbusedNot on file4Physically AbusedNot on file 11/14/2023Sexually AbusedNot on file4Physically or Sexually AbusedNot on file11/14/2023Sex and Gender InformationValueDate RecordedSex Assigned at BirthNot on fileLegal CcjQosl8703/21/2022 10:47 PM EDTGender IdentityNot on file Sexual OrientationNot on file Last Filed Vital Signs Vital SignReadingTime TakenCommentsBlood Pressure--Pulse--Temperature-- Respiratory Rate--Oxygen Saturation--Inhaled Oxygen Concentration--Axbxqq067 kg (246 lb)01/11/2022 8:45 AM JPFNitjmt198.3 cm (5' 9 )01/11/2022 8:45 AM EDTBody Mass Index36.33001/11/2022 8:45 AM EDT Plan of Treatment Health MaintenanceDue DateLast DoneCommentsCT Inrpieecnzok44/17/1968Colonoscopy 1967Colorectal Cancer Bykdjeosf61/17/1968FIT-DNA1967FIT1967 FOBT1967 9358Onfhjjiugcwhl36/17/1968Depression Yeiayqtja49/17/1980Hepatitis B Vaccines (1 of 3 - 19+ 3-dose series)1986Adult Cipymbm6411/09/1989Zoster Vaccines (1 of 2)2017COVID-19 Vaccine (1 - [...] patient's age to complete this topic Insurance * Guarantor: Abram Sheehan AAccount TypeRelation to PatientDate of BirthPhone Billing AddressPersonal/LveepzDpsd39/17/[address] [place] [address] Care Teams Team MemberRelationshipSpecialtyStart DateEnd Date Delmer Bryan MD [address] [place] [address] PCP - [facility]05/14/22
--- OUTSIDE RECORDS SUMMARY | 2025-09-20 11:44 | XMS_ITS | Clinical Summary ---
Author Organization [facility] Address [address] [place] [address] Care Team Providers Care Yard Demurrage Clerk Name Role Phone Anastacio Hinojosa MD Primary Care Provider [phone] Pepper Sexton NP Unavailable [phone] Allergies No known active allergies Medications [...] TAKE 1 TABLET BY MOUTH TWICE DAILY ivqbawonip69/23/2025Active budesonide-formoterol (Symbicort) 160-4.5 MCG/ACT inhaler Indications:Chronic bronchitis, [...] lotion Apply 1 Application topically Daily as zztqye0604/29/2025tive gabapentin (Neurontin) 600 MG tablet Indications:Restless legs syndromeTake 1 tablet (600 mg) by mouth in the morning and 1 tablet (600 mg) before bedtime. 180 tablet 5Active Active Problems ProblemNoted DateDiagnosed AnspUcdllocjhu59/16/2025 Assessment & Plan (04/07/2025 9:01 AM EDT): [...] of lower extremity with varicose ulcer and fmbzvo2704/01/2025 Assessment & Plan (04/07/2025 5:57 AM EDT): Reviewed vascular notes Chronic deep vein thrombosis (DVT) of popliteal vein of left lower extremity 04/01/2025Electrolyte itxosimvxdp04/25/2025ellulitis of left lower extremity 02/17/2025 Assessment & [...] nephrology Morbid (severe) obesity due to excess pkekehpz81/15/2025 Assessment & Plan (05/06/2025 6:12 AM EDT): [...] Recommend weight watchers Gastro-esophageal reflux disease without fapajzglgec15/15/2025 Assessment & Plan (05/06/2025 6:12 AM EDT): [...] use Acute gastric ulcer without hemorrhage or pgiccpcfczs26/17/2024 Overview (07/09/2024): EGD 07/09/24 Djpnnkkdj97/14/2024Needs flu shot07/06/2024 Assessment & Plan (07/06/2024 10:30 AM EDT): declines COPD with acute gcdklktgkycf56/12/2024 Assessment & Plan (05/06/2025 8:57 AM EDT): Is currently not taking blood thinner Will add medrol dose pack and atb He was alternating between albuterol and symbicort I did explain how each works and symbicort is twice a day EVERY day and albuterol prn Fu if not better Assessment & Plan (05/04/2024 11:10 AM EDT): Add steroids and atb Fu if not better Pre-fsbyyntr81/18/2024 Assessment & Plan (10/07/2024 9:17 AM EST): Will check A1c test: recent lab had elevated glucose A1c 5.6%, 10/07/24 Carpal tunnel syndrome on both sides12/29/20237073Tyisyfxkbwp20/07/2024 Overview (02/02/2024): HST not available at time [...] of both hands11/26/2023ervical radiculopathy 11/26/2023ough in adult11/26/2023Venous xxvfmn1411/26/2023Left leg swelling 11/26/2023 Assessment & Plan (03/08/2025 8:56 AM EDT): As per cellulitis entry Degenerative disc disease, ipdrrtqf21/05/2024 Overview (02/02/2024): Patient with chronic neck pain [...] pain. 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 Atopic ortwhqeywe50/05/5165Biobtprom30/05/2024Orthopedic hardware present 11/26/2023Marijuana use11/26/2023 Assessment & Plan (01/06/2025 6:14 AM EDT): Gummies and smoking Assessment & Plan (10/07/2024 9:40 AM EST): Gummies and smoking Screening for prostate byazth5411/26/2023 Overview (03/17/2025): PSA: 03/16 1.26 03/17/25 1.49 Assessment & Plan (01/06/2025 6:14 AM EDT): Check labs in 03/17 Abnormal stress test08/19/20234866Azgtvkjak56/27/0339Cibtpaccbadd12/27/2023Essential hypertension, rzokez3508/19/2023 Assessment & Plan (05/06/2025 8:57 AM EDT): [...] dose Fu in 3 months, check labs Swokaseswmvjny54/27/2023 Assessment & Plan (01/06/2025 6:15 AM EDT): [...] EST): Cont meds, check labs Restless legs08/19/2023Nicotine dkvcajzcok65/27/2023 Assessment & Plan (05/06/2025 6:13 AM EDT): The patient has been advised of the risks of continued smoking: stroke, CA, all forms of cancer, lung disease, and [...] of the risks of continued smoking: stroke, CA, all forms of cancer, lung disease, and . Options for quitting smoking include: cold turkey, hypnosis, acupuncture, nicotine replacement meds(gum, lozenges, and patches), Buproprion, and Varenicline. At this time pt is encouraged to evaluate their goals for wanting to quit smoking, and reach out toprovider when ready to start this process Grjceqkglyqzd61/27/0159Vuqpnokbicskkq46/27/2023 Assessment & Plan (02/17/2025 7:26 PM EDT): [...] No acute muscle/neuro findings on today's exam Kfwnobygylgmfw74/26/2023 Assessment & Plan (01/06/2025 6:13 AM EDT): On statin therapy Labs yearly and prn dose changes Assessment & Plan (10/07/2024 5:44 AM EST): On statin therapy Labs yearly and prn dose changes Assessment & Plan (02/26/2024 11:48 AM EDT): Attempt to cut down on portion sizes, carbs, no meds at this time Pulmonary rcsnayauembn81/10/2022 Assessment & Plan (10/07/2024 5:42 AM EST): Per ECHO 02/12 Does not use PAP Current meds: aldactone, amlodipine, valsartan and bystolic Assessment & Plan (05/04/2024 12:52 PM EDT): Per ECHO 02/12 Does not use PAP Assessment & Plan (11/26/2023 10:06 AM EST): As per ECHO findings Stable at this time LV kybuxyymegz82/18/2022 Assessment & Plan (05/04/2024 12:50 PM EDT): As per cardiology Resolved Problems ProblemNoted DateDiagnosed DateResolved DateNeeds flu shot Pre-operative aqekihthy93/ Assessment & Plan (05/26/2024 7:27 AM EDT): Hx of HTN: well controlled Low magnesium: still taking TID, trying to avoid use of PPI, but difficult GURVINDER: non compliant with PAP use ECHO 11/15 EKG: reviewed CR 1.60 w Gfr 50 Magnesium: 1.4 on 04/20/24. Cleared for surgery from cardiac/medical standpoint Simple chronic onlmlgzxvg58 Assessment & Plan (05/04/2024 11:10 AM EDT): [...] digit is numb at times and his table games supervisor is weak as well likely consistent with ulnar nerve process. 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 Carpal tunnel jtdiryjs56 Overview (02/02/2024): Patient has ongoing numbness and tingling to bilateral hands, sometimes worse on the left. He has worn wrist splints in the past but no longer uses these. He has not trialed injections. EMG of the BUE 12/2019 revealed bilateral median neuropathy. He is noting some increase pain to his hands with even performing hand washing. He is interested in surgery. Xdcoenv24GERD (gastroesophageal reflux disease)08/19/2023 10/07/2024 Assessment & Plan (07/06/2024 10:28 AM EDT): Has upcoming scope with GI, has been off his PPI/B4crjoteyj for up coming EGD etc Continue with GI Assessment & Plan (05/04/2024 12:01 PM EDT): Did well on continuous churn buttermaker PPI, however severe hypomagnesiumemia Would like to [...] times a week11/25/2023How often do you attend anabaptist or buddhism services?Never11/25/2023o you belong to any clubs or organizations such as anabaptist groups, unions, fraternal or athletic groups, or school groups?Yes11/25/2023How often do you attend meetings of the clubs or organizations you belong to?Never11/25/2023re you , , , , never , or living with a partner?Motxana1911/25/2023UDIT-C AnswerDate RecordedQ1: How often do you have a drink containing alcohol?4 or more times a week11/25/2023Q2: How many drinks containing alcohol do you have on a typical day when you are drinking?5 or Q3: How often do you have six or more drinks on one occasion?Ovzftq4811/25/2023Overall Financial Resource Strain (CARDIA)AnswerDate RecordedHow hard is it for you to pay for the very basics like food, housing, medical care, and heating?Somewhat hard11/25/2023 PHQ-2AnswerDate RecordedPatient Health Questionnaire-2 Lipuo943Finmountainstar healthcare [place] of Occupational Health - Occupational Stress QuestionnaireAnswerDate RecordedDo you feel stress - tense, restless, nervous, or anxious, or unable to sleep at night because yourmind is troubled all the time - these days?To some mfrrwr9811/25/2023Exercise Vital SignAnswerDate RecordedOn average, how many days [...] InformationValueDate RecordedSex Assigned at BirthNot on fileLegal OzcLgur5612/05/2022 11:33 PM EDT Gender IdentityNot on fileSexual OrientationNot on file Last Filed Vital Signs Vital SignReadingTime TakenCommentsBlood Cwxibwml113/9408 8:25 AM EDT Zuzhs653105/06/2025 8:25 AM LOMFjzjagooxpj34.6 ??C (97.8 ??F)05/06/2025 8:25 AM EDTRespiratory Njqg873005/06/2025 8:25 AM EDTOxygen Htzaxhxnux94%05/06/2025 8:25 AM EDTInhaled Oxygen Concentration--Nghhhx851 kg (268 lb 9.6 oz)05/06/2025 8:25 AM BWEEikhyn961.3 cm (5' 9 )01/06/2025 9:06 AM EDTBody Mass Index39.67001/06/2025 9:06 AM EDT Plan of Treatment Not on file Insurance Care Teams Team MemberRelationshipSpecialtyStart DateEnd Anastacio Hinojosa MD PCP - GeneralFamily Medicine11/26/23 Pepper Sexton NP Nurse PractitionerFamily Medicine11/26/23
--- OUTSIDE RECORDS SUMMARY | 2025-09-20 11:45 | XMS_ITS | Patient Health Record ---
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 Ordering Physician: Edis Conte M.D. Date of Service: 02/08/25 Procedure(s): US renal bladder Accession Number(s): [id number] cc: Pepper Sexton [employer]ACH[employer]EL JOINER; Edis Conte M.D. [place] [address] Patient Name: ABRAM GUILLAUME MRN: [id number] date: 1965 Sex: M Assigned Patient Location: [place] Current Patient Location: [place] Accession/Order Number: [id number] Exam Date: 02/08/2025 11:53 Report Date: 02/08/2025 [...] Wong M.D. 02/08/2025 11:55 AM Dictation Location: [place] [address] Electronically authenticated by: [id number] Y Date: 02/08/2025 11:55 Dictated By: Pito Wong M.D. Signed By: 02/08/25 1157 DD/ 1155 TD/TT: Laboratory Operations Coordinator: Occult Blood* Reviewed date:02/09/2025 08:43:40 PM Interpretation: Performing Lab: Notes/Report: [facility] , Occult Blood Negative Performing Lab:see noteML - [facility] LBMAGNESIUM Reviewed date:02/09/2025 08:43:40 PM Interpretation: Performing Lab: Notes/Report: [facility] ,Magnesium1.01.8-2.4 mg/dLPerforming Lab:see noteML - [facility] LB MAGNESIUM Reviewed date:02/09/2025 08:43:40 PM Interpretation: Performing Lab: Notes/Report: [facility] ,Magnesium2.11.8-2.4 mg/dLPerforming Lab:see note - [facility] LBUS extremity nonvascular LT Reviewed date:02/10/2025 01:35:41 PM Interpretation: Performing Lab: Notes/Report: Source Facility: [facility]-[address] [place] [address] [address] Ultrasound Report Signed Patient: ABRAM GUILLAUME MR#: [id number] : 1965 Acct:[id number] Age/Sex: 59 / M ADM Date: 02/07/25 Loc: [place] 220-[address]: Edis Conte M.D. Ordering Physician: Edis Conte M.D. Date of Service: 02/10/25 Procedure(s): US extremity nonvascular LT Accession Number(s): [id number] cc: Pepper Sexton [employer]; Edis Conte M.D. The [place] [id number] Patient Name: ABRAM GUILLAUME MRN: [id number] date: 1965 Sex: M Assigned Patient Location: [place] Current Patient Location: [place] Accession/Order Number: [id number] Exam Date: 02/10/2025 11:13 Report Date: 02/10/2025 [...] Duarte M.D. 02/10/2025 11:20 AM Dictation Location: [place] [address] Electronically authenticated by: [id number] Y Date: 02/10/2025 11:20 Dictated By: Ivette Duarte M.D. Signed By: 02/10/25 1122 DD/ 1120 TD/TT: Laboratory Operations Coordinator:CRP Reviewed date:02/11/2025 08:38:04 PM Interpretation: Performing Lab: Notes/Report: [facility] ,C Reactive Akapmhb98.79<=0.50 mg/dLPerforming Lab:see note - [facility] LBMAGNESIUM Reviewed date:02/11/2025 08:38:04 PM Interpretation: Performing Lab: Notes/Report: [facility] ,Magnesium1.71.8-2.4 mg/dLPerforming Lab:see note - [facility] LBCT lower leg LT wo/w con Reviewed date:02/10/2025 01:35:41 PM Interpretation: Performing Lab: Notes/Report: Source Facility: [place] [address] CT Scan Report Signed Patient: ABRAM GUILLAUME MR#: [id number] : 1965 Acct:[id number] Age/Sex: 59 / M ADM Date: 02/07/25 Loc: [place] 220-[address]: Edis Conte M.D. Ordering Physician: Edis Conte M.D. Date of Service: 02/10/25 Procedure(s): CT lower leg LT wo/w con Accession Number(s): [id number] cc: Pepper Sexton NP [place] [id number] Patient Name: ABRAM GUILLAUME MRN: [id number] date: 1965 Sex: M Assigned Patient Location: [place] Current Patient Location: [place] Accession/Order Number: [id number] Exam Date: 02/10/2025 09:18 Report Date: 02/10/2025 [...] is subcutaneous edema and fluid throughout the tpibp-kr-czdu, greater anteriorly toward the knee. This is [...] Duarte M.D. 02/10/2025 9:38 AM Dictation Location: [place] [address] Electronically authenticated by: [id number] Y Date: 02/10/2025 09:38 Dictated By: Ivette Duarte M.D. Signed By: 02/10/2540 DD/ 7 TD/TT: Laboratory Operations Coordinator:MAGNESIUM Reviewed date:02/10/2025 09:13:46 AM Interpretation: Performing Lab: Notes/Report: [facility] ,Magnesium1.61.8-2.4 mg/dLPerforming Lab:see noteML - [facility] LB CRP Reviewed date:02/10/2025 09:13:46 AM Interpretation: Performing Lab: Notes/Report: [facility] ,C Reactive Wajxzlx81.87<=0.50 mg/dLPerforming Lab:see note - [facility] LBMAGNESIUM Reviewed date:02/09/2025 08:43:40 PM Interpretation: Performing Lab: Notes/Report: [facility] ,Magnesium1.11.8-2.4 mg/dLPerforming Lab:see note - [facility] LB CRP Reviewed date:02/09/2025 08:43:40 PM Interpretation: Performing Lab: Notes/Report: [facility] ,C Reactive Neivohq10.75<=0.50 mg/dLPerforming Lab:see note - [facility] LB Reason For Referral No Information Medications [...] Status W/U Status Risk Notes Problem Hypomagnesemia (156336327) Hypomagnesemia (E83.42) ActiveconfirmedProblemUncomplicated asthma (disorder) (847642677)Unspecified asthma, uncomplicated (J45.909)ActiveconfirmedProblemHypertension (80068045)HTN (hypertension) (I10)Activeconfirmed Plan Of Treatment No Information Insurance Providers Payer Name Payer Address Payer Phone Subscriber Number Group Number Insured Name Patient Relationship to Insured Coverage Start Date Coverage End Date [employer] PPO PLUS LOCAL PLAN [address] [place] [phone] [id number] Abram Guillaume Self - patient is the [...]
--- OUTSIDE RECORDS SUMMARY | 2025-09-20 11:53 | XMS_ITS | CCD ---
Author Organization [facility] Care Team Providers Care Nurse Special Name Role Phone AICHHOLZ, EARTH SCIENCE FACULTY MEMBER PEPPER Primary Care Unavailable AICHHOLZ, EARTH SCIENCE FACULTY MEMBER PEPPER Consulting Unavailable AICHHOLZ, EARTH SCIENCE FACULTY MEMBER PEPPER Attending Unavailable AICHHOLZ, EARTH SCIENCE FACULTY MEMBER PEPPER Admitting Unavailable AICHHOLZ, EARTH SCIENCE FACULTY MEMBER PEPPER Consulting Unavailable AICHHOLZ, EARTH SCIENCE FACULTY MEMBER PEPPER Attending Unavailable AICHHOLZ, EARTH SCIENCE FACULTY MEMBER PEPPER Admitting Unavailable AICHHOLZ, EARTH SCIENCE FACULTY MEMBER PEPPER Primary Care Unavailable AICHHOLZ, EARTH SCIENCE FACULTY MEMBER PEPPER Primary Care Unavailable DR CRIS KLINE V Consulting Unavailable AICHHOLZ, EARTH SCIENCE FACULTY MEMBER PEPPER Attending Unavailable AICHHOLZ, EARTH SCIENCE FACULTY MEMBER PEPPER Admitting Unavailable AICHHOLZ, EARTH SCIENCE FACULTY MEMBER PEPPER Consulting Unavailable AICHHOLZ, EARTH SCIENCE FACULTY MEMBER PEPPER Primary Care Unavailable AICHHOLZ, EARTH SCIENCE FACULTY MEMBER PEPPER Consulting Unavailable AICHHOLZ, EARTH SCIENCE FACULTY MEMBER PEPPER Attending Unavailable AICHHOLZ, EARTH SCIENCE FACULTY MEMBER PEPPER Admitting Unavailable AICHHOLZ, EARTH SCIENCE FACULTY MEMBER PEPPER Primary Care Unavailable AICHHOLZ, EARTH SCIENCE FACULTY MEMBER PEPPER Consulting Unavailable AICHHOLZ, EARTH SCIENCE FACULTY MEMBER PEPPER Attending Unavailable AICHHOLZ, EARTH SCIENCE FACULTY MEMBER PEPPER Admitting Unavailable Anastacio Hinojosa MD Primary Care Provider Aichholralph PROTECTIVE SERVICES SOCIAL WORKER, Pepper Unavailable Aichholralph PROTECTIVE SERVICES SOCIAL WORKER, Pepper Unavailable Pepper Sexton Primary Care Provider [phone] MD [place] Imrosalie Attending Provider [phone] Pepper Sexton Primary Care Provider [place] CARTAGENA, James Attending Provider Pepper Sexton Primary Care Unavailable Asaad, Imad Attending Unavailable Asaad, Imad Admitting Unavailable Asaad, Imad Admitting Unavailable Pepper Sexton Primary Care Unavailable Asaad, Imad Attending Unavailable Aichholz SNUFF MAKER-EARTH SCIENCE FACULTY MEMBER, Pepper J Primary Care Provider Aicblanca Pepper J Primary Care Provider James Elaine MD Attending Provider [phone] Aichholz SNUFF MAKER-EARTH SCIENCE FACULTY MEMBER, Pepper J Primary Care Provider AicLary riosa J Primary Care Provider Tang Hamilton MD Attending Provider AICHHOLZ, PEPPER Attending Unavailable AICHHOLZ, PEPPER Attending Unavailable AICHHOLZ, PEPPER Attending Unavailable AICHHOLZ, PEPPER Attending Unavailable AICHHOLZ, PEPPER Attending Unavailable BLANK MCFARLANE Attending Unavailable RUPERT BO Attending Unavailable AICHHOLZ, PEPPER Attending Unavailable AICHHOLZ, PEPPER Attending Unavailable Aichholz PROTECTIVE SERVICES SOCIAL WORKER-C, Pepper J Primary Care Provider [phone] Tang Hamilton MD Attending Provider Aichholz PROTECTIVE SERVICES SOCIAL WORKER-C, Pepper Wheeler Attending Provider ROBERT KUMAR F [...] oral tablet (1 source)Opioid AgonistStart: 05-26-2024 End: 48-67-6781hblh 1 tablet by mouth every six hours for painHYDROcodone- acetaminophen (Centereach) 5-325 MG tablet Indications: Post-operative pain Take 1 tablet bymouth every 6 (six) hours if needed for severe pain for up to 3 days 12 tablet 05/26/2024 05/29/2024 [id number] 200 actuat albuterol 0.09 mg/actuat metered dose inhaler (20 sources)beta2-Adrenergic AgonistStart: 50-67-2043lejv 1 puff(s) by inhalation every six hours as needed for wheezingAlbuterol Sulfate 90 mcg/actuation HFA aerosol inhaler Active 2 PUFF INHALATION Every 6 hours as nee ded for shortness of breath or wheezing March 19, 2024 12:00am Complies with drug therapyStart: 56-54-6692guzk 2 puff(s) by inhalation every six hours for wheezingalbuterol HFA (Ventolin HFA) 90 mcg/act inhaler Indications: Chronic Obstructive Pulmonary Disease Inhale 2 puffs every 6 (six) hours if needed for wheezing or shortness of breath 18 g 1 03/06/2024 ActiveStart: 85-33-3544ewkr 2 puff(s) by inhalation every six hours as needed for wheezingalbuterol (PROVENTIL HFA;VENTOLIN HFA) 90 mcg/actuation inhaler Indications: Mild persistent asthma without complication Inhale 2 puffs every 6 (six) hours as needed for wheezing. 18 g 11 08/02/2022 ActiveamLODIPine 10 mg oral tablet (20 sources)Dihydropyridine Calcium Channel BlockerStart: 03-18-2024 End: 07-27-6270hufs 1 tablet by mouth once dailyAmlodipine 10 mg tablet Active 10 MG PO Daily March 19, 2024 12:00am Complies with drug therapyamoxicillin 875 mg / clavulanate 125 mg oral tablet (3 sources)Penicillin-class AntibacterialStart: 05-06-2025 End: 57-85-7870kvsa 1 tablet by mouth in the morningamoxicillin-clavulanate (Augmentin) 875-125 MG tablet Indications: COPD with acute exacerbation (HCC) Take 1 tablet (875 mg) by mouth in the morning and 1 tablet (875 mg) before bedtime. Do all this for 10 days. 20 tablet 05/06/2025 05/16/2025 Activeapixaban 5 mg oral tablet (20 sources)Factor Xa InhibitorStart: 07-70-1593etyp 1 tablet by mouth twice dailyApixaban (Eliquis) 5 mg tablet Active 5 MG PO Twice daily July 09, 2025 12:00am Complies with drug therapyStart: 09-43-2269umog 2 tablets by mouth twice daily, then take 1 tablet by mouth twice dailyEliquis 5 MG tablet TAKE 2 TABLETS BY MOUTH TWICE DAILY FOR 4 DAYS and then TAKE 1 TABLET BY MOUTH TWICE DAILY thereafter 02/12/2025 Flxvza438 actuat budesonide 0.16 mg/actuat / formoterol fumarate 0.0045 mg/actuat metered dose inhaler (20 sources)Corticosteroid, beta2-Adrenergic AgonistStart: 34-09-2816fiwr 1 puff(s) by inhalation twice daily as needed for wheezingBudesonide-Formoterol 160-4.5 mcg/actuation HFA aerosol inhaler Active 2 PUFF INHALATION Twice daily as needed for shortness of breath or wheezing June 23, 2024 12:00am Complies with drug therapyStart: 05-04-2024 End: 73-77-9708vihl 2 puff(s) by inhalation in the morningbudesonide-formoterol (Symbicort) 160-4.5 MCG/ACT inhaler Indications: Chronic bronchitis, unspecified chronic bronchitis type (HCC) Inhale 2 puffs in the morning and 2 puffs before bedtime. Rinse mouth with water after use to reduce aftertaste and incidence of candidiasis. Do not swallow. 10.2 g ActiveStart: 03-19-2024 End: 36-90-4401bzzv 1 puff(s) by inhalation twice daily as neededBudesonide- Formoterol (Symbicort) 80-4.5 mcg/actuation HFA aerosol inhaler Discontinued 2 PUFF INHALATION Twice daily as needed March 19, 2024 9:38am June 23, 2024 10:39amStart: 99-18-9003zprx 2 puff(s) by inhalation in the morningbudesonide- formoteroL (SYMBICORT) 80-4.5 mcg/actuation inhaler Indications: Mild persistent asthma without complication Inhale 2 puffs in the morning and 2 puffs before bedtime. 10.2 g 12 08/02/2022 Activecalamine 80 mg/ml / zinc oxide 80 mg/ml topical lotion (8 sources)Start: 13-60-5584srtesytt-zinc oxide 8-8 % lotion Apply 1 Application topically as needed for itching. 120 mL 04/29/2025 ActiveStart: 04-29-2025 Calamine-Zinc Oxide 8-8 % lotion Apply 1 Application topically Daily as needed 04/29/2025 Activecefdinir 300 mg oral capsule (13 sources)Cephalosporin AntibacterialStart: 02-12-2025 End: 26-27-3995xlqnetgl (Omnicef) 300 MG capsule Take 600 mg by mouth Daily 02/12/2025 04/07/2025 Discontinued (Therapy completed)diclofenac sodium 0.01 mg/mg topical gel (4 sources)Nonsteroidal Anti-inflammatory DrugStart: 04-07-2025 End: 69-14-7001sqkkmdpima sodium (Voltaren Arthritis Pain) 1 % gel Indications: Acute gout of left hand, unspecified cause Apply 2 g topically in the morning and 2 g in the evening and 2 g before bedtime. Do all this for 10 days. 50 g 04/07/2025 04/17/2025 Activedoxepin hydrochloride 10 mg/ml oral solution (20 sources)Tricyclic AntidepressantStart: 57-59-1612johy 100 mg by mouth once daily at bedtimeDoxepin 10 mg/mL concentrate Active 100 MG PO Daily at bedtime July 09, 2025 12:00am Complies with drug therapyStart: 09-15-2024 End: 49-12-4617wnqk 10 mg by mouth at bedtimedoxepin (SINEquan) 10 MG/ML solution Indications: Fibromyalgia Take 10 mL (100 mg) by mouth at bedtime 900 mL 1 04/07/2025 07/06/2025 ActiveStart: 03-19-2024 End: 10-32-6511lkqp 1 capsule by mouth once daily at bedtimeDoxepin 100 mg capsule Discontinued 100 MG PO Daily at bedtime March 19, 2024 12:00am July 09, 2025 7:20amStart: 03-11-2024 End: 76-18-9229kamf 10 mg by mouth at bedtimedoxepin (SINEquan) 10 MG/ML solution Indications: Fibromyalgia Take 10 mL (100 mg) by mouth at bedtime 900 mL 1 03/11/2024 Activetake 1 capsule by mouth once dailydoxepin (SINEquan) 10 mg capsule Take 1 capsule (10 mg total) by mouth nightly. Activedoxycycline hyclate 100 mg oral tablet (4 sources)Tetracycline-class DrugStart: 04-07-2025 End: 87-47-7211rxtk 1 tablet by mouth in the morningdoxycycline [...] 600 mg oral tablet (20 sources)Anti-epileptic AgentStart: 90-13-9607qzsk 1 tablet by mouth three times dailyGabapentin 600 mg tablet Active 600 MG PO Three times daily July 09, 2025 7:21am Complies withdrug therapyStart: 03-19-2024 End: 22-78-7672wmsd 1 tablet by mouth twice dailyGabapentin 600 [...] oral tablet (20 sources)Nonsteroidal Anti-inflammatory Drug End: 26-72-7908xqfx 1 tablet by mouth every six hours as needed for pain ibuprofen (ADVIL,MOTRIN) 200 mg tablet Take 1 tablet (200 mg total) by mouth every 6 (six) hours asneeded for pain. ActivelevoFLOXacin 750 mg oral tablet (13 sources)Quinolone AntimicrobialStart: 02-12-2025 End: 40-82-1324tmzm 1 tablet by mouth once dailylevoFLOXacin (Levaquin) 750 MG tablet TAKE 1 TABLET BY MOUTH ONCE DAILY x14 02/12/2025 04/07/2025 Discontinued (Therapy completed)levothyroxine sodium 0.112 mg oral tablet (20 sources)l-ThyroxineStart: 10-08-2024 End: 51-71-3805twpf 1 tablet by mouth once dailyLevothyroxine 112 mcg tablet Active 112 MCG PO Daily 90 June 10, 2025 12:00am Hypothyroidism Hypothyroidism, unspecified Complies with drug therapyStart: 03-18-2024 End: 09-10-5520lxep 1 tablet by mouth once dailyLevothyroxine 100 mcg tablet Discontinued 100 MCG PO Daily March 19, 2024 12:00am June 10, 2025 9:26pmtake 4 tablets by mouth in the morninglevothyroxine (SYNTHROID, LEVOTHROID) 25 MCG tablet Take 4 tablets (100 mcg total) by mouth in the m orning. Activemagnesium glycinate 100 mg oral tablet (20 sources)Start: 78-53-4364jebf 1 capsule by mouth in the morning, then take 1 capsule by mouth in the evening, then take 1 capsule by mouth at bedtime Magnesium Glycinate 100 MG capsule Take 100 mg by mouth in the morning and 100 mg in the evening and 100 mg before bedtime. 12/07/2024 ActiveMagnesium Glycinate 100 mg magnesium capsule (7 sources)Start: 41-46-8975ylzp 1 capsule by mouth three times dailyMagnesium Glycinate 100 mg magnesium capsule Active 100 MG PO Three times daily 270 90 February 11:40am Complies with drug therapyStart: 18-66-2598iaje 1 capsule by mouth three times dailyMagnesium Glycinate 100 mg magnesium capsule Active 100 MG PO Three times daily 270 90 March 05, 2025 11:40am Complies with drug therapyStart: 03-04-2025 End: 79-87-2497mjop 1 capsule by mouth three times dailyMagnesium Glycinate 100 mg magnesium capsule Discontinued 100 MG PO Three times daily 270 90 1 2024 3:50pm March 05, 2025 11:40amStart: 03-04-2025 End: 64-54-6111qwvg 1 capsule by mouth three times dailyMagnesium Glycinate 100 mg magnesium capsule Discontinued 100 MG PO Three times daily 270 90 March 04, 2025 3:50pm March 05, 2025 11:40amStart: 12-02-2024 End: 32-26-4557ygrb 1 capsule by mouth three times dailyMagnesium Glycinate 100 mg magnesium capsule Discontinued 100 MG PO Three times daily 90 December 02, 2024 12:00am March 04, 2025 3:51pmStart: 12-02-2024 End: 52-25-1678ougc 1 capsule by mouth three times dailyMagnesium Glycinate 100 mg magnesium capsule Discontinued 100 MG PO Three times daily December 02, 2024 12:00am March 04, 2025 3:51pmStart: 34-29-2646wuhq 1 capsule by mouth three times dailyMagnesium Glycinate 100 mg magnesium capsule Active 100 MG PO Three times daily December 022:00amMAGNESIUM GLYCINATE-MAG OXIDE ORAL (1 source)take 100 mg by mouth at bedtimeMAGNESIUM GLYCINATE-MAG OXIDE ORAL Take 100 mg by mouth in the morning and at bedtime. Activemagnesium oxide 500 mg oral tablet (20 sources)Start: 09-28-2024 End: 66-56-6205jrxb 1 tablet by mouth in the morning, [...] tablet 1 11/04/2024 02/02/2025 ActiveStart: 03-19-2024 End: 06-27-8275qrvr 1 tablet by mouth three times dailyMagnesium Oxide 400 mg (241.3 mg magnesium) tablet Discontinued 400 MG PO Three times daily March 19, 2024 9:39am December 02, 2024 2:07pmStart: 03-19-2024 End: 23-56-0092lgyx 1 tablet by mouth twice dailyMagnesium Oxide 400 mg (241.3 mg magnesium) tablet Discontinued 400 MG PO Twice daily March 19, 2024 12:00am March 19, 2024 9:68wn227 ml magnesium sulfate 40 mg/ml injection (5 sources)Start: 04-06-2025 End: 32-56-6488Epflymvgz Sulfate In Water 4 gram/100 mL (4 %) piggyback Active 4 GM IV EVERY 2 WEEKS 0 0 April 06, 2025 3:08pm Hypomagnesemia Hypomagnesemia Standing order for Magnesium level below 1.5. administerover 2-4 hrs Complies with drug therapyStart: 11-24-2024 End: 77-61-8917Hohlxsdwi Sulfate In Water 4 gram/100 mL (4 %) piggyback Discontinued 4 GM IV Once 0 November 24, 2024 1:00am April 06, 2025 2:56pm administer over 2-4 hrsMagnesium Sulfate In Water 4 gram/100 mL (4 %) piggyback (1 source)Start: 36-15-7793Khqgcqlhd Sulfate In Water 4 gram/100 mL (4 %) piggyback Active 4 GM IV Once November 24, 2024 1:00amadminister over 2-4 hrs meloxicam 15 mg oral tablet (20 sources)Nonsteroidal Anti-inflammatory DrugStart: 61-89-8434jonb 1 tablet by mouth once dailymeloxicam (Mobic) 15 MG tablet Indications: Degenerative disc disease, cervical TAKE 1 TABLET BY MOUTH EVERY DAY 90 tablet 4 06/18/2024 Active Start: 03-29-2022 End: 53-15-9403zbdf 1 tablet by mouth once dailyMeloxicam 15 mg tablet Discontinued 15 MG PO Daily March 19, 2024 12:00am September 22, 2024 8:17am methylPREDNISolone (3 sources)CorticosteroidStart: 05-06-2025 End: 87-52-7366cisnriRACEFUGwkckk (Medrol Dospak) 4 MG tablets Indications: COPD with acute exacerbation (HCC) Follow schedule on package instructions take with food 21 tablet 05/06/2025 05/13/2025 Activemontelukast 10 mg oral tablet (20 sources)Leukotriene Receptor AntagonistStart: 03-18-2024 End: 41-27-5031wavy 1 tablet by mouth once daily at bedtimeMontelukast 10 mg tablet Active 10 MG PO Daily at bedtime March 19, 2024 12:00am Complies with drug therapynebivolol 10 mg oral tablet (20 sources)Start: 03-18-2024 End: 52-82-0428skot 1 tablet by mouth once dailyNebivolol 10 mg tablet Active 10 MG PO Daily March 19, 2024 12:00am Complies with drug therapytake 1 tablet by mouth in the morningnebivoloL (BYSTOLIC) 5 mg tablet Take 1 tablet (5 mg total) by mouth in the morning. Activeomeprazole 40 mg delayed release oral capsule (20 sources)Proton Pump InhibitorStart: 58-77-1754uvht 1 capsule by mouth once dailyOmeprazole 40 mg capsule,delayed release(DR/EC) Active 40 MG PO Daily July 12, 2025 9:51am Complies with drug therapyStart: 07-09-2024 End: 78-27-0272irmc 1 capsule by mouth twice dailyOmeprazole 40 mg capsule,delayed release(DR/EC) Discontinued 40 MG PO Twice daily 180 0 July 09, 2024 1:22pm July 12, 2025 9:52amStart: 06-23-2024 End: 27-85-3428Qhfvzwjpco 40 mg capsule,delayed release(DR/EC) Discontinued 40 MG PO Every 72 hours June 23, 2024 12:00am June 24, 2024 8:41amStart: 03-19-2024 End: 46-76-3145yazf 1 capsule by mouth once dailyOmeprazole 40 mg capsule,delayed release(DR/EC) Discontinued 40 MG PO Daily June 24, 2024 8:41am July 09, 2024 1:23pmpravastatin sodium 40 mg oral tablet (20 sources)HMG-CoA Reductase InhibitorStart: 33-22-1404ujsp 1 tablet by mouth once daily at [...] (20 sources)Angiotensin 2 Receptor BlockerStart: 09-29-2021 End: 77-89-3910ztol 1 tablet by mouth in the morningvalsartan (DIOVAN) 320 mg tablet Take 1 tablet (320 mg total) by mouth in the morning. 09/29/2021 Active Completed/Discontinued Medications MedicationDrug Class(es)DatesSig (Normalized)Sig (Original)cloNIDine hydrochloride 0.1 mg oral tablet (8 sources)Central alpha-2 Adrenergic AgonistStart: 03-19-2024 End: 01-22-6906qgci 1 tablet by mouth twice dailyClonidine Hcl 0.1 mg tablet Discontinued 0.1 MG PO Twice daily 60 3 March 19, 2024 12:00am 2024 9:50amfamotidine 20 mg oral tablet (20 sources)Histamine-2 Receptor AntagonistStart: 05-04-2024 End: 52-80-0976iykh 2 tablets by mouth twice daily in the morning, then take 1 tablet by mouth twice daily in the eveningFamotidine (Pepcid) 20 mg tablet Discontinued 0 PO Twice daily June 23, 2024 10:37am September 22, 2024 8:16am 40mg in am, 20 mg in pm orally twice daily;Start: 03-19-2024 End: 38-33-6984znow 1 tablet by mouth twice dailyFamotidine (Pepcid) 20 mg tablet Discontinued 20 MG PO Twice daily 180 March 23, 2024 5:47pm June 23, 2024 10:40amNaltrexone (16 sources)Opioid AntagonistStart: 03-19-2024 End: 86-55-9002ycjl 1 capsule by mouth once dailyNaltrexone 4.5 mg capsule Discontinued 4.5 MG PO .QD March 19, 2024 9:40am July 12, 2025 9:51am Start: 93-07-1476xook 1 capsule by mouth once dailyNaltrexone 4.5 mg capsule Active 4.5 MG PO .QD March 19, 2024 9:40am Complies with drug therapyStart: 31-00-5902uzuk 1 capsule by mouth once dailyNaltrexone 4.5 mg capsule Active 4.5 MG PO .QD March 19, 2024 9:40amStart: 58-29-8511lffq 1 capsule by mouth once dailyNaltrexone 4.5 mg capsule Active 4.5 MG PO .QD March 19, 2024 8:40amStart: 59-46-9422uyue 4.5 mg by mouth once dailyNaltrexone Active 4.5 MG PO .QD March 19, 2024 9:40amStart: 03-19-2024 End: 49-71-3990Mdfsjcongh 4.5 mg capsule Discontinued MG PO March 19, 2024 12:00am March 19, 2024 9:41amStart: 03-19-2024 End: 81-07-3438Sdjwwudkkh 4.5 mg capsule Discontinued MG PO March 18, 2024 11:00pm March 19, 2024 8:41amStart: 03-19-2024 End: 09-67-6329Ikbwuhygyj Discontinued MG PO March 19, 2024 12:00am March 19, 2024 9:41amSPIRONOLACTONE, BULK, MISC (1 source) End: 50-59-6900TAJFJRFQYXPYEN, BULK, MISC by miscellaneous route. 04/27/2024 Discontinued (Therapy completed) Problems Active Problems Problem ClassificationProblemDateDocumented DateEpisodic/ChronicAbdominal pain (20 sources)Indigestion; Translations: [Epigastric pain]Onset: 07-06-2024 92-27-7005BfsgyxnsRnmll and unspecified renal failure (20 sources)Acute renal failure syndrome; Translations: [Acute kidney failure, unspecified]Onset: 944979-96-1075AspzewyvOiufgoda reactions (20 sources)Atopic dermatitis; Translations: [Atopic dermatitis, unspecified] Onset: 338474-25-3502XhyifwyLbrxla (6 sources)Uncomplicated mild persistent asthma; Translations: [Mild persistent asthma, uncomplicated]Onset: 106965-81-7689ArrimgiOucciwq kidney disease (20 sources)Chronic kidney disease stage 3A ; Translations: [Chronic kidney disease, stage 3a (HCC)]Onset: 099296-34-0832JvhycufCxlsfvo obstructive pulmonary disease and bronchiectasis (20 sources)Chronic bronchitis; Translations: [Unspecified chronic bronchitis] Onset: 03-06-2024 Resolved: 938979-50-6730AkrscihMrzwybs obstructive pulmonary disease and bronchiectasis (10 sources)Bronchitis; Translations: [Bronchitis, not specified as acute or chronic]Onset: 888030-03-1660PhynaoufJowwawg ulcer of skin (2 sources)Non-pressure chronic ulcer of unspecified part of unspecified lower leg with unspecified severity; Translations: [Non-pressure chronic ulcer of unspecified part of unspecified lower leg with unspecified severity]Onset: 95-28-9596PnkkdmuOzcquwjn mellitus without complication (20 sources)Hyperglycemia, unspecified; Translations: [Hyperglycemia]Onset: 772434-42-7663SflsgbepAlfghidhn of lipid metabolism (20 sources)Hyperlipidemia; Translations: [Hyperlipidemia, unspecified]Onset: 984627-75-9349KnkkssmUydqlrjwrz disorders (20 sources)Gastroesophageal reflux disease; Translations: [Gastro-esophageal reflux disease without esophagitis]Onset: 08-19-2023 Resolved: 306248-03-6095NbeoibjOzpbrxwbj hypertension (20 sources)Essential (primary) hypertension; Translations: [Essential hypertension]Onset: 472406-21-6111TuevkryQawsg and electrolyte disorders (17 sources)Hypokalemia; Translations: [Disorder of electrolytes]Onset: 87-39-8234TpsugcvoBabooyygrpbntz ulcer (except hemorrhage) (20 sources)Acute gastric ulcer without hemorrhage AND without perforation; Translations: [Acute gastric ulcer without hemorrhage or perforation]Onset: 160074-81-0725QiffledqPrzr and other crystal arthropathies (13 sources)Gouty arthritis of left hand; Translations: [Gout, unspecified] Onset: 828717-05-9676DznlfsyXxqzo valve disorders (1 source)Nonrheumatic pulmonary valve insufficiency; 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 INSUFF]Onset: 81-92-5284IigawcuYbvqsqmynqtdqv (20 sources)Arthritis; Translations: [Unspecified osteoarthritis, unspecified site]Onset: 306822-24-1936UfykhoyDrhsq aftercare (1 source)Encounter for follow-up examination after completed treatment for conditions other than malignant neoplasm; Translations: [Encounter for follow-up examination after completed treatment for conditionsother than malignant neoplasm]Onset: 25-60-1101FkwpamqhAmlpm and ill-defined heart disease (20 sources)Left ventricular cardiac dysfunction; Translations: [Heart disease, unspecified]Onset: 471115-02-2636MdmcralJtlol connective tissue disease (20 sources)Fibromyalgia; Translations: [Fibromyalgia]Onset: 08-19-2023 36-63-9895BnjumfdvEhgqb connective tissue disease (20 sources)Swelling of left lower limb; Translations: [Other specified soft tissue disorders]Onset: 021649-30-0409AieadzjrCzcxz diseases of veins and lymphatics (20 sources)Vascular insufficiency; Translations: [Venous insufficiency (chronic) (peripheral)]Onset: 676532-96-9865DdptkapbZdehh diseases of veins and lymphatics (2 sources)Peripheral venous insufficiency; Translations: [Venous insufficiency (chronic) (peripheral)]34-61-5647UigmxxkwJlsld hereditary and degenerative nervous system conditions (20 sources)Restless legs; Translations: [Restless legs syndrome]Onset: 949945-75-9360KbpmqrwTnorj inflammatory condition of skin (20 sources)Psoriasis; Translations: [Psoriasis, unspecified]Onset: 11-26-2023 75-85-1849KomtpatSfsay lower respiratory disease (20 sources)Cough; Translations: [Cough in adult]Onset: EpisodicOther nervous system disorders (20 sources)Compression injury of nerve; 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, unspecified]Onset: 371381-27-8852DjfgxvlWascw nervous system disorders (20 sources)Bilateral carpal tunnel syndrome; Translations: [Carpal tunnel syndrome, bilateral upper limbs]Onset: 174260-89-9943FiaepopYxxll nervous system disorders (4 sources)Lesion of ulnar nerve, right upper limb; Translations: [Lesion of ulnar nerve]86-15-4025RpqoafkKzfkp nervous system disorders (20 sources)Paresthesia of skin; Translations: [Disturbance of skin sensation] Onset: 578935-96-8849NwezotdtNezkc nutritional; endocrine; and metabolic disorders (1 source)Obesity, unspecified; Translations: [OBESITY UNSPECIFIED]Onset: 58-72-1455SfmbccoJbosa nutritional; endocrine; and metabolic disorders (1 source)Body mass index (BMI) 30.0-30.9, adult; Translations: [BODY MASS INDEX BMI 30.0-30.9 ADULT]Onset: 57-53-7592RytmgumKiscs nutritional; endocrine; and metabolic disorders (7 sources)Hypomagnesemia; Translations: [Disorders of magnesium metabolism] Onset: 479699-50-8150VsvpfzgPkcdq nutritional; endocrine; and metabolic disorders (20 sources)Hypomagnesemia; Translations: [Hypomagnesemia]Onset: 08-19-2023 69-96-0136JvanrkbCleqg nutritional; endocrine; and metabolic disorders (20 sources)Body mass index 30+ - obesity; Translations: [Obesity, unspecified] Onset: 02-26-2024 Resolved: 600810-22-0775LghswvzPwtrd nutritional; endocrine; and metabolic disorders (20 sources)Obesity caused by energy imbalance; Translations: [Morbid (severe) obesity due to excess calories]Onset: 107304-10-2355BexvwfgCppis screening for suspected conditions (not mental disorders or infectious disease) (20 sources)Encounter for screening for malignant neoplasm of prostate; Translations: [Cardiovascular stress test abnormal]Onset: EpisodicPhlebitis; thrombophlebitis and thromboembolism (20 sources)Chronic deep venous thrombosis of popliteal vein of left leg; Translations: [Chronic embolism and thrombosis of left popliteal vein]Onset: 786174-64-0691YyzmoigHeoepgvyi heart disease (20 sources)Pulmonary hypertension; Translations: [Pulmonary hypertension, unspecified]Onset: 454218-76-1619SadopvsQhtlwaaj codes; unclassified (20 sources)Hypersomnia; Translations: [Hypersomnia, unspecified]Onset: 559555-87-6776RgiqwdhDcxwdxnj codes; unclassified (20 sources)Obstructive sleep apnea syndrome; Translations: [Obstructive sleep apnea (adult) (pediatric)]Onset: 189750-74-2794MjlkrpbJeekezoh codes; unclassified (20 sources)Orthopedic hardware in situ; Translations: [Presence of other specified devices]Onset: 471310-68-0740BmkkxnniJaqsmuya codes; unclassified (1 source)Other specified postprocedural states; Translations: [Other specified postprocedural states]Onset: 46-11-6220EnbsxoddKthe and subcutaneous tissue infections (20 sources)Cellulitis of left lower limb; Translations: [Cellulitis of left lower limb]Onset: 102226-95-0163UsuzefgdGhyoxjjbxuh; intervertebral disc disorders; other back problems (20 sources)Degeneration of cervical intervertebral disc; Translations: [Other cervical disc degeneration, unspecified cervical region]Onset: 11-26-2023 80-17-2935FotwjjjVxjovevcvte; intervertebral disc disorders; other back problems (20 sources)Cervical radiculopathy; Translations: [Radiculopathy, cervical region]Onset: 365221-89-9460UtnolhgiNcfeocxbz-kiawfbu disorders (20 sources)Nicotine dependence; Translations: [Nicotine dependence, unspecified, uncomplicated]Onset: 135654-20-4658AyixwytLbqkegjqw-hmzppbb disorders (20 sources)Marijuana user; Translations: [Cannabis use, unspecified, uncomplicated]Onset: 560135-31-1833JopexarqFgcnjpp disorders (20 sources)Hypothyroidism, unspecified; Translations: [Hypothyroidism]Onset: 87-19-2094YacngmxKtmwycibdmag (1 source)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 ([facility])56-33-5896Kuxluvpnullq (2 sources)Autogenerated ProblemOnset: 435633-08-1502Syvktxgcjgfw (1 source)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 ([facility]) [I83.209, L97.909]Onset: 25-61-5801Uquveeeipgyi (1 source)Cellulitis of left lower extremity Left leg swellingOnset: 04-01-2025 Varicose veins of lower extremity (20 sources)Varicose veins of unspecified lower extremity with both ulcer of unspecified site and inflammation;Translations: [Varicose veins of lower extremities with ulcer and inflammation]Onset: 368309-83-0536Rxfhpqlv Past or Other Problems Problem ClassificationProblemDateDocumented DateEpisodic/ChronicImmunizations and screening for infectious disease (20 sources)Needs influenza immunization; Translations: [Encounter for immunization]Onset: 07-06-2024 Resolved: 566430-41-6958AoejvsrzXoosh diseases of veins and lymphatics (2 sources)Venous insufficiency (chronic) (peripheral); Translations: [Venous insufficiency (chronic) (peripheral)]Onset: 05-05-9082AefnigoaQcelh gastrointestinal disorders (1 source)Heartburn; Translations: [Heartburn]Onset: 41-32-0135XipxpbrxFlfym lower respiratory disease (4 sources)Dyspnea, unspecified; Translations: [DYSPNEA UNSPECIFIED]Onset: 96-00-8945SrvuoktjBiszw lower respiratory disease (20 sources)Dyspnea; Translations: [Dyspnea, unspecified]Onset: 08-19-2023 Resolved: 385549-98-2735JzmsbzycCkqpz lower respiratory disease (6 sources)Radiologic infiltrate of lung ; Translations: [Other nonspecific abnormal finding of lung field]Onset: 161392-99-6473BpertaiwTahpd nervous system disorders (20 sources)Carpal tunnel syndrome; Translations: [Carpal tunnel syndrome, unspecified upper limb]Onset: 02-02-2024 Resolved: 035658-11-5005NtginecSbodo nervous system disorders (20 sources)Paresthesia; Translations: [Paresthesia of skin]Onset: 02-02-2024 Resolved: 371647-20-5408IhpplaquXkbsv nervous system disorders (1 source)Postoperative pain ; Translations: [Other acute postprocedural pain] 18-44-7619MfnfvijiKmrseyx (11 sources)Syncope and collapse; Translations: [Syncope and collapse]Onset: 22-88-3092VrxlbvlxIurhlayrqdvt (1 source)Preprocedural examination wlil44-35-9450 Results Test NameValueInterpretationReference RangeFacilityMAGNESIUMon 07-08-2025 Magnesium [Mass/Vol]1.7 mg/dLLow1.8-2.6M[facility] Osteopathic ClinicComment on above:Performed By: #### MG #### [facility] ([facility] [place] [facility]) [address] [place] [address] VIRAPTTon 25-78-2034fVIN Coag (Bld) [Time]29 lZhvhra98-20 [facility] ClinicComment on above:Performed By: #### PTT #### [facility] ([facility]) [address] [place] [address] VIRBASIC METABOLIC PANELon 04-56-3162Qaait gap [Moles/Vol]10 mmol/LNormal5-15[facility] ClinicComment on above:Performed By: #### BMP #### [facility] ([facility]) [address] [place] [address] VIRCalcium [Mass/Vol]8.7 mg/dLNormal8.5-10.5PJoint Township District Memorial HospitalComment on above:Performed By: #### BMP #### [facility] ([facility]) [address] [place] [address] VIRChloride [Moles/Vol]103 mmol/ZZjxkux05-123OaeUncqdsLas Palmas Medical CenterComment on above:Performed By: #### BMP #### [facility] ([facility]) [address] [place] [address] VIRCO2 [Moles/Vol]31 mmol/DYflbyq92-05IipQxivxaJoint Township District Memorial HospitalComment on above:Performed By: #### BMP #### [facility] ([facility]) [address] [place] [address] VIRCreatinine [Mass/Vol]1.13 mg/dLNormal0.60-1.30M[facility] Osteopathic ClinicComment on above:Result Comment: METHOD TRACEABLE TO IDMS STANDARDPerformed By: #### BMP #### [facility] ([facility]) [address] [place] [address] VIRGFR/1.73 sq M.predicted among non-blacks MDRD (S/P/Bld) [Vol rate/Area]76 mL/min/{1.73_m2}Normal>=60ProLas Palmas Medical CenterComment on above:Result Comment: Reported eGFR is based on the CKD-EPI 2020 equation that does not use a race coefficient.Performed By: #### BMP #### [facility] ([facility]) [address] [place] [address] VIRGlucose [Mass/Vol]100 mg/fQOyax36-33SppRbeqovLas Palmas Medical CenterComment on above:Performed By: #### BMP #### [facility] ([facility]) [address] [place] [address] VIRPotassium [Moles/Vol]3.8 mmol/LNormal3.5-5.0ProLas Palmas Medical CenterComment on above:Performed By: #### BMP #### [facility] ([facility]) [address] [place] [address] VIRSodium [Moles/Vol]144 mmol/ICdypuf864-916CyeKrsmwx Fremont HospitalComment on above:Performed By: #### BMP #### [facility] ([facility]) [address] [place] [address] VIRUrea nitrogen [Mass/Vol]13 mg/dLNormal5-23ProLas Palmas Medical CenterComment on above:Performed By: #### BMP #### [facility] ([facility]) [address] [place] [address] VIRCBC (NO DIFF)on 30-91-2062Pvplulcjujl distribution width (RBC) [Ratio]14.5 %Mihivw21.5-15[facility] Osteopathic ClinicComment on above: Performed By: #### CBC #### [facility] ([facility]) [address] [place] [address] VIRHematocrit (Bld) [Volume fraction]42.2 %Zuoogv00-12IvkYrckyhMarietta Osteopathic ClinicComment on above:Performed By: #### CBC #### [facility] ([facility]) [address] [place] [address] VIRHemoglobin (Bld) [Mass/Vol]13.8 g/sHKospwn57-31EoxZuzyxzMarietta Osteopathic ClinicComment on above:Performed By: #### CBC #### [facility] ([facility]) [address] [place] [address] VIRMCH (RBC) [Entitic mass]29.9 kbRyeluu26-79SojKihbneMarietta Osteopathic ClinicComment on above:Performed By: #### CBC #### [facility] ([facility]) [address] [place] [address] VIRMCHC (RBC) [Mass/Vol]32.8 g/xMNijbge66-95AtfQjdyqgMarietta Osteopathic ClinicComment on above:Performed By: #### CBC #### [facility] ([facility]) [address] [place] [address] VIRMCV (RBC) [Entitic vol]91 tLXtdblf53-621JbpYcodisMarietta Osteopathic ClinicComment on above:Performed By: #### CBC #### [facility] ([facility]) [address] [place] [address] VIRPlatelet mean volume (Bld) [Entitic vol]8.6 fLNormal7-12 [facility] ClinicComment on above:Performed By: #### CBC #### [facility] ([facility]) [address] [place] [address] VIRPlatelets (Bld) [#/Vol]277 10*3/wFFvkwpg317-094EjzHngkwz Fremont HospitalComment on above:Performed By: #### CBC #### [facility] ([facility]) [address] [place] [address] VIRRBC COUNT4.61 X10E12/LNormal4.1-5.7ProLas Palmas Medical CenterComment on above:Performed By: #### CBC #### [facility] ([facility]) [address] [place] [address] VIRWBC (Bld) [#/Vol]8.4 10*3/uLNormal4-11[facility] ClinicComment on above:Performed By: #### CBC #### [facility] ([facility]) [address] [place] [address] VIRECG 12 leadon 75-40-2588WQPYPMTVUEESYNGnaUmlroj Health SystemMAGNESIUMon 02-15-6156Ehnfwzlad [Mass/Vol]1.0 mg/dLLow1.8-2.6M[facility]opathic ClinicComment on above:Performed By: #### MG #### [facility] ([facility]) [address] [place] [address] VIRMagnesiumon 66-57-4074Mpcrrlldcbzell and review of laboratory resultsAbnormalGuernsey Memorial Hospital SystemMagnesium [Mass/Vol]1 mg/dLLow 1.8 - 2.6 mg/dLAspirus Lang[facility] SystemPROTIME AND INRon 04-52-8191LYU1.5Kajtud2.9-1.2PJoint Township District Memorial HospitalComment on above: Performed By: #### PINR #### [facility] ([facility] [address] [place] [address] VIRPT Coag (PPP) [Time]11.2 sNormal9.8-13.2PJoint Township District Memorial HospitalComment on above:Performed By: #### PINR #### [facility] ([facility] [place] [facility]) [address] [facility] [place] [address] VIRLaboratory - Chemistry and Chemistry - challengeOrdered By: Tang Hamilton on 94-09-0900Mnltduffk [Mass/Vol]0.6 mg/dLCritically low1.8-2.4 [facility] Medical CenterComment on above:RESULTS CALLED TOLaboratory - Chemistry and Chemistry - challengeOrdered By: Tang Hamilton on 05-26-2025 Magnesium [Mass/Vol]0.8 mg/dLCritically low1.8-2.4FMedina HospitalComment on above:RESULTS CALLED TO LYNNETTE GIBSON LPN at 1444ALL MAGNESIUM on 63-50-0268Ofzpjzchibdlym and review of laboratory resultsAbnormalNOMS HealthcareMagnesium [Mass/Vol]0.7 mg/dLCritically low1.8 - 2.4 mg/dLNOSC HealthcareComment on above:RESULTS CALLED TOCLINISYNCNOSC HealthcareLaboratory - Chemistry and Chemistry - challengeOrdered By: Tang Hamilton on 05-06-2025 Magnesium [Mass/Vol]0.7 mg/dLCritically low1.8-2.4FMedina HospitalComment on above:RESULTS CALLED TOLAXMI MAGNESIUMon 03-92-6754Qeweqrethttrke and review of laboratory resultsAbnormalNOMS HealthcareMagnesium [Mass/Vol]1.3 mg/dLLow1.8 - 2.4 mg/dLNOSC HealthcareCLINISYNCNOMS HealthcareALL URIC ACIDon 36-27-7470Qajxa [Mass/Vol]7.2 mg/dL3.5 - 7.2 mg/dLNOHeartland Behavioral Health ServicesCLINISYNCNScotland County Memorial HospitalGlomerular filtration rate (GFR) estimation in non- Ordered By: Tang Hamilton on 90-86-2261TAM/1.73 sq M.predicted among non-blacks MDRD (S/P/Bld) [Vol rate/Area]mL/min/{1.73_m2}>=60 mL/min/1.73m 2FMedina HospitalLaboratory - Chemistry and Chemistry - challengeOrdered By: Tang Hamilton on 97-86-8331Jyyjbot [Mass/Vol]3.2 g/dLLow3.4-5.0Ad[facility] Medical CenterCalcium [Mass/Vol]7.5 mg/dLLow8.5-10.1FMedina HospitalChloride [Moles/Vol]107 mmol/J29-467KdgaivfdiAdams County Regional Medical CenterCO2 [Moles/Vol]29.4 mmol/L21.0-32.0[facility] Creatinine [Mass/Vol]1.15 mg/dL0.70-1.30[facility] GFR/1.73 sq M.predicted MDRD (S/P/Bld) [Vol rate/Area]mL/min/{1.73_m2}>=60 mL/min/1.73m 2FMedina HospitalGlucose [Mass/Vol]101 mg/dB46-252 [facility] Medical CenterMagnesium [Mass/Vol]0.5 mg/dLCritically low 1.8-2.4FMedina HospitalComment on above:RESULTS CALLED TO Potassium [Moles/Vol]3.9 mmol/L3.5-5.1FCleveland Clinic Hillcrest Hospitalodium [Moles/Vol]146 mmol/OWbqq487-634HxciaelldAdams County Regional Medical CenterUrea nitrogen [Mass/Vol]20.0 mg/dLHigh7.0-18.0Ad[facility] Medical CenterUrea nitrogen/Creatinine [Mass ratio]17.4 mg/mgAdams County Regional Medical CenterNo Panel InformationOrdered By: Tang Hamilton on 36-83-0105Mjhincryay Level3.5 mg/dL 2.6-4.7FCleveland Clinic Hillcrest Hospitalerum or plasma anion gap determination Ordered By: Tang Hamilton on 62-41-0327Xarap gap [Moles/Vol]13.5 mmol/LFMedina HospitalALL BASIC METABOLIC PANELon 20-67-2634Oscsl gap [Moles/Vol]13.7 mmol/LNOMS HealthcareCalcium [Mass/Vol]7.9 mg/dLLow8.5 - 10.1 mg/dLNOMS HealthcareChloride [Moles/Vol]107 mmol/L98 - 107 mmol/LNOMS Healthcare CO2 [Moles/Vol]28.8 mmol/L21.0 - 32.0 mmol/LNOMS HealthcareCreatinine [Mass/Vol] 1.04 mg/dL0.70 - 1.30 mg/dLNOMS HealthcareGFR/1.73 sq M.predicted CKD-EPI (S/P/Bld) [Vol rate/Area]>60>=60 mL/min/1.73m 2NOMS HealthcareGlucose [Mass/Vol] 130 mg/kWMylc62 - 106 mg/dLNOSC HealthcareInterpretation and review of laboratory resultsAbnormalNOSC HealthcarePotassium [Moles/Vol]3.5 mmol/L3.5 - 5.1 mmol/LNOMS HealthcareSodium [Moles/Vol]146 mmol/PSyye077 - 145 mmol/LNOMS HealthcareTBH EGFR-NON AF GUATEMALAN>60>=60 mL/min/1.73m 2NOMS HealthcareUrea nitrogen [Mass/Vol]15 mg/dL7.0 - 18.0 mg/dLNOSC HealthcareUrea nitrogen/Creatinine [Mass ratio]14.4 mg/mgNOSC HealthcareCLINISYNCNGREAT PLAINS REG[facility] [place] HealthcareALL CBC WITH AUTO DIFFon 68-76-0597SFRJNHMHH ABSOLUTE AUTO0.1NOMS HealthcareBasophils/100 WBC (Bld)0.7 %0.2 - 2.0 %NOMS HealthcareEosinophils/100 WBC (Bld)9.5 %High0.9 - 7.0 %NOM HealthcareErythrocyte distribution width (RBC) [Ratio]15 %11.0 - 15.0 %NOMS HealthcareHematocrit (Bld) [Volume fraction]38.3 % Low42.0 - 54.0 %NOMKindred HospitalHemoglobin (Bld) [Mass/Vol]12.5 g/dLLow14.0 - 18.0 g/dLNOHeartland Behavioral Health ServicesIMMATURE GRANULOCYTES ABS AUTO0.03NOMS Healthcare Immature granulocytes/100 WBC (Bld)0.3 %0.0 - 0.5 %NOM HealthcareInterpretation and review of laboratory resultsAbnormalNOHeartland Behavioral Health ServicesLYMPHOCYTES ABSOLUTE AUTO1.9NOMS HealthcareLymphocytes/100 WBC (Bld)20.4 %Low20.5 - 60.0 %NOMNortheast Regional Medical CenterH (RBC) [Entitic mass]31.8 pg25.9 - 34.0 pgNOWestern Missouri Medical CenterHC (RBC) [Mass/Vol]32.6 g/dL29.9 - 35.2 g/dLNOSC HealthcareMCV (RBC) [Entitic vol]97.5 fL High80.0 - 94.0 fLNOSC HealthcareMONOCYTES ABSOLUTE AUTO0.5NOMS Healthcare Monocytes/100 WBC (Bld)5.2 %1.7 - 12.0 %NOMS HealthcareNEUTROPHILS ABSOLUTE AUTO 5.8NOMS HealthcareNeutrophils/100 WBC (Bld)63.9 %43.0 - 75.0 %NOMS [facility] Platelet mean volume (Bld) [Entitic vol]9.8 fL9.5 - 13.5 fLNOSC HealthcareTBH EO #0.9HighNOMS HealthcareTBH LAC301EAHI HealthcareTB RBC3.93LowNOMS [facility] Medical CenterTB WBC9.1NOMS HealthcareCLINISYNCNGREAT PLAINS REGIONAL [facility] [place] HealthcareLaboratory - Chemistry and Chemistry - challengeOrdered By: Tang Hamilton on 09-15-0731Lnihnqoth [Mass/Vol] 0.2 mg/dLCritically low1.8-2.4FMedina HospitalComment on above: RESULTS CALLED TO Cheikh FOFANA Panel InformationOrdered By: Tang Hamilton on 28-03-0657Lbybkbhfpr Level2.7 mg/dL2.6-4.7FMedina Hospital ALL CBC WITH AUTO DIFFon 47-50-5940YDZSUZOFX ABSOLUTE AUTO0.1NOMS [facility] Basophils/100 WBC (Bld)0.8 %0.2 - 2.0 %NOMS HealthcareEosinophils/100 WBC (Bld) 6.2 %0.9 - 7.0 %NOMKindred HospitalErythrocyte distribution width (RBC) [Ratio]13.7 %11.0 - 15.0 %NOMS HealthcareHematocrit (Bld) [Volume fraction]42 %42.0 - 54.0 % NOM HealthcareHemoglobin (Bld) [Mass/Vol]13.6 g/dLLow14.0 - 18.0 g/dLNOHeartland Behavioral Health ServicesIMMATURE GRANULOCYTES ABS AUTO0.03NOMS HealthcareImmature granulocytes/100 WBC (Bld)0.3 %0.0 - 0.5 %NOM HealthcareInterpretation and review of laboratory resultsAbnormalNOMS HealthcareLYMPHOCYTES ABSOLUTE AUTO1.8 NOMKindred HospitalLymphocytes/100 WBC (Bld)21 %20.5 - 60.0 %[facility] HospitalH (RBC) [Entitic mass]31.1 pg25.9 - 34.0 pgNOWestern Missouri Medical CenterHC (RBC) [Mass/Vol] 32.4 g/dL29.9 - 35.2 g/dLBarnes-Jewish West County HospitalV (RBC) [Entitic vol]95.9 tSCdkv47.0 - 94.0 fLChristian HospitalMONOCYTES ABSOLUTE AUTO0.5NOSC HealthcareMonocytes/100 WBC (Bld)6.1 %1.7 - 12.0 %Christian HospitalNEUTROPHILS ABSOLUTE AUTO5.8NOHeartland Behavioral Health Services Neutrophils/100 WBC (Bld)65.6 %43.0 - 75.0 %Christian HospitalPlatelet mean volume (Bld) [Entitic vol]9.6 fL9.5 - 13.5 fLChristian HospitalTBH EO #0.5NOMS Healthcare TBH AZJ785OWSCChildren's Mercy Hospital RBC4.38LowNOChildren's Mercy Hospital WBC8.8NOHeartland Behavioral Health Services CLINISYNCSaint Joseph Hospital of Kirkwood MAGNESIUMon 95-95-6367Xenwraclpswmpt and review of laboratory resultsAbnormalNOMS HealthcareMagnesium [Mass/Vol]1.1 mg/dLLow1.8 - 2.4 mg/dLChristian HospitalCLINISYNCNOMS HealthcareLaboratory - Chemistry and Chemistry - challengeon 80-91-2275Vjmoqujkk [Mass/Vol]1.1 mg/dLLow1.8-2.4 [facility] MAGNESIUMon 49-36-3725Wmhilouixwvdzi and review of laboratory resultsAbnormalNOMS HealthcareMagnesium [Mass/Vol]0.7 mg/dL Critically low1.8 - 2.4 mg/dLRIVERTON HOSPITAL HealthcareComment on above:RESULTS CALLED TO IRENE BOOTH MA AT OFFICE BY Violeta Gold at [address] [facility] MAGNESIUMon 94-88-9790Lmedhwjpmtclwv and review of laboratory resultsAbnormalNOMS HealthcareMagnesium [Mass/Vol]0.8 mg/dLCritically low1.8 - 2.4 mg/dLNOSC HealthcareComment on above:RESULTS CALLED TOALL THYROID STIM HORMONEon 29-52-1783PDX Qn2.054 m[IU]/LNOMS BdsogikzyeBjT3h (Bld) [Mass fraction]on 42-50-4643Umxmnblvbppuzo and review of laboratory resultsNormalNOMadison Medical Center HealthcareLaboratory - Hematology and Cell countson 10-07-2024 HbA1c (Bld) [Mass fraction]5.60 %[facility] HealthcareNo Panel Informationon 36-59-2439HPUHDVLMFKYVB HealthcareAmphetamine Screen Ql (U)Ordered By: Imad Asaad on 66-77-9118Sqijlcgiswxe Ql (U)Amphetamines screenNegativeAdams County Regional Medical CenterBarbiturates [Presence] in Urine by Screen methodOrdered By: Imad Asaad on 14-73-2600Lhvwscefmveg Screen Ql (U)Barbiturates [Presence] in Urine by Screen methodNegativeAdams County Regional Medical CenterBenzodiazepines Screen Ql (U)Ordered By: Imad Asaad on 62-56-3361Aeqgyasgcooothx Ql (U) Benzodiazepines [Presence] in Urine by Screen methodNegativeAdams County Regional Medical CenterBenzoylecgonine [Presence] in Urine by Screen methodOrdered By: Imad Asaad on 31-03-8483Jxkdztgrvlkcwvm Screen Ql (U)Benzoylecgonine [Presence] in Urine by Screen methodNegativeAdams County Regional Medical CenterCannabinoids [Presence] in Urine by Screen methodOrdered By: Imad Asaad on 10-06-2024 Cannabinoids Screen Ql (U)Cannabinoids [Presence] in Urine by Screen methodHigh NegativeAdams County Regional Medical CenterComment on above:These are unconfirmed results and should not be used for legal purposes. Drug Cut-Off Concentration: AMPH 1000 ng/mL MAX 200 ng/mL JUHI 200 ng/mL COCM 300 ng/mL OP 300 ng/mL PCP 25 ng/mL THC 20 ng/mLDrug Screen,Urineon 42-62-3634Vlkxlgiugrb Screen,Urine NegativeNormalNegativeThe Count Includes The [facility] Physician GroupComment on above:Performed By: #### URDS #### [place] [address] USABarbiturate Screen,UrineNegativeNormalNegativeThe Count Includes The [facility] Hospital Physician GroupComment on above:Performed By: #### URDS #### [place] [address] USABenzodiazepines Screen,UrineNegativeNormalNegativeThe Count Includes The [facility] Physician GroupComment on above:Performed By: #### URDS #### [place] [address] USACannabinoid Screen,UrinePositiveHighNegativeThe Count Includes The [facility] Hospital Physician GroupComment on above:Result Comment: These are unconfirmed results and should not be used for legal purposes. Drug Cut-Off Concentration: AMPH 1000 ng/mL MAX 200 ng/mL JUHI 200 ng/mL COCM 300 ng/mL OP 300 ng/mL PCP 25 ng/mL THC 20 ng/mL PERFORMED BY: [place] [address] PATHOLOGIST [employer] MEMBER ROBERT GRIMES M.D.Performed By: #### URDS #### [place] [address] USACocaine Screen,UrineNegativeNormalNegativeMorton Plant Hospital Physician GroupComment on above:Performed By: #### URDS #### [place] [address] USAOpiate Screen,UrineNegativeNormalNegativeMorton Plant Hospital Physician GroupComment on above:Performed By: #### URDS #### [place] [address] USAPhencyclidine Screen,UrineNegativeNormalNegativeThe Count Includes The [facility] Physician GroupComment on above:Performed By: #### URDS #### [place] [address] USALon 10-06-2024L Specimen: [id number] Received: 10/06/24 Status: SAHIL Fernandezsaira Num: [id number] Spec Type: Surgical Subm Dr: James Elaine MD Tissues: A Esophagus Biopsy (ESOPHAGUS BX R/O BARRETTS) Procedures: HE/2, Gross/Micro L4 Age/ Patient Sex Location Account Attending Physician Abram Guillaume/M [id number] James Elaine MD SPEC NUM: [id number] RECD: 10/06/24 STATUS: SAHIL EUGENIO NUM: [id number] PHILLIP: 10/06/[address] [facility] [address]: James Elaine MD ENTERED: 10/06/24 LAUREL FRYE: ANGELICA TYPE: Surgical DEPT: S ENTERED BY: [id number] RECV BY: [id number] ORDERED: HE/2, Gross/Micro L4 ORDERED: HE/2, Gross/Micro [...] S2 Received: 10/06/24 Status: SAHIL Ruiz Num: [id number] Spec Type: Surgical Subm Dr: James Elaine MD Tissues: A Esophagus Biopsy (ESOPHAGUS BX R/O BARRETTS) Procedures: HE/2, Gross/Micro L4 Patient: Abram Guillaume [id number] (Continued) Specimen: S2 Received: 10/06/24 (Continued) Signed (signature on file) Sandro Baird MD 10/07/24 1009 Specimen: [id number] Received: 10/06/24 Status: SAHIL Ruiz Num: [id number] Spec Type: Surgical Subm Dr: James Elaine MD Tissues: A Esophagus Biopsy (ESOPHAGUS BX R/O BARRETTS) Procedures: HE/Colette, Gross/Micro L4 Patient: SissyAbram [id number] (Continued) Specimen: S2 Received: 10/06/24 (Continued) CPT Codes 01275 Specimen: [id number] Received: 10/06/24-1056 Status: SAHIL Ruiz Num: [id number] Spec Type: Surgical Subm Dr: James Elaine MD Tissues: A Esophagus Biopsy (ESOPHAGUS BX R/O BARRETTS) Procedures: HE/2, Gross/Micro L4 Patient: Abram Guillaume [id number] (Continued) Signed (signature on file) Sandro Baird MD 10/07/24 1009Normal The Count Includes [facility] Physician GroupOpiates [Presence] in Urine by Screen methodOrdered By: James Elaine on [id number] Screen Ql (U)Opiates [Presence] in Urine by Screen methodNegACMC Healthcare System GlenbeighPhencyclidine Screen Ql (U)Ordered By: James Elaine on [id number] Ql (U)Phencyclidine [Presence] in Urine by Screen methodNegACMC Healthcare System GlenbeighALL BASIC METABOLIC PANELon [id number] gap [Moles/Vol]14.1 mmol/LNOMS HealthcareCalcium [Mass/Vol]8.3 mg/dLLow8.5 - 10.1 mg/dLNOMS HealthcareChloride [Moles/Vol]104 mmol/L98 - 107 mmol/LNOMS HealthcareCO2 [Moles/Vol]28.4 mmol/L 21.0 - 32.0 mmol/LNOMS HealthcareCreatinine [Mass/Vol]1.61 mg/dLHigh0.70 - 1.30 mg/dLNOMS HealthcareGFR/1.73 sq M.predicted CKD-EPI (S/P/Bld) [Vol rate/Area]54 Low>=60 mL/min/1.73m 2NOMS HealthcareGlucose [Mass/Vol]137 mg/kIFtzj98 - 106 mg/dLNOSC HealthcarePotassium [Moles/Vol]3.5 mmol/L3.5 - 5.1 mmol/LNOMS HealthcareSodium [Moles/Vol]143 mmol/L136 - 145 mmol/LNOMS HealthcareTBH EGFR- NON AF [id number]>=60 mL/min/1.73m 2NOMS HealthcareUrea nitrogen [Mass/Vol]17 mg/dL7.0 - 18.0 mg/dLNOSC HealthcareUrea nitrogen/Creatinine [Mass ratio]10.6 mg/mgNOSC HealthcareALL MAGNESIUMon 47-93-1144Pfzmirzqp [Mass/Vol]0.8 mg/dL Critically low1.8 - 2.4 mg/dLNOSC HealthcareComment on above:RESULTS CALLED TO Kiara REED Panel Informationon [id number] and review of laboratory resultsAbnormalNOMS HealthcareCLINISYNCNOMS HealthcareAmphetamine Screen Ql (U)Ordered By: James Elaine on 68-31-0992Uzwgoexotjtv Ql (U)Amphetamines screenNegativeAdams County Regional Medical CenterAmphetamines Ql (U)Negative NegativeAdams County Regional Medical CenterBarbiturates [Presence] in Urine by Screen methodOrdered By: Imrosalie Asarosalie on 78-09-8781Cchdbnkwfvbj Screen Ql (U) NegativeNegativeAdams County Regional Medical CenterBarbiturates Screen Ql (U) Barbiturates [Presence] in Urine by Screen methodNegativeAdams County Regional Medical CenterBenzodiazepines Screen Ql (U)Ordered By: James Holbrook on 07-09-2024 Benzodiazepines Ql (U)NegativeNegACMC Healthcare [facility] Benzodiazepines Ql (U)Benzodiazepines [Presence] in Urine by Screen method NegativeAdams County Regional Medical CenterBenzoylecgonine [Presence] in Urine by Screen methodOrdered By: Imrosalie Holbrook on 91-03-2553Otarysqspnmbsgw Screen Ql (U) NegativeNegativeAdams County Regional Medical CenterBenzoylecgonine Screen Ql (U) Benzoylecgonine [Presence] in Urine by Screen methodNegativeAdams County Regional Medical CenterCannabinoids [Presence] in Urine by Screen methodOrdered By: rosalie Holbrook on [id number] Screen Ql (U)NegativeNegACMC Healthcare System GlenbeighComment on above:These are unconfirmed results and should not be used for legal purposes. Drug Cut-Off Concentration: AMPH 1000 ng/mL MAX 200 ng/mL JUHI 200 ng/mL COCM 300 ng/mL OP 300 ng/mL PCP 25 ng/mL THC 20 ng/mL Cannabinoids Screen Ql (U)Cannabinoids [Presence] in Urine by Screen method NegativeAdams County Regional Medical CenterComment on above:These are unconfirmed results and should not be used for legal purposes. Drug Cut-Off Concentration: AMPH 1000 ng/mL MAX 200 ng/mL JUHI 200 ng/mL COCM 300 ng/mL OP 300 ng/mL PCP 25 ng/mL THC 20 ng/mLDrug Screen,Urineon 84-82-1207Ioxkfkmueuz Screen,Urine NegativeNormalNegativeMorton Plant Hospital Physician GroupComment on above:Performed By: #### URDS #### [facility] [address] [place] [address] USABarbiturate Screen,UrineNegativeNormalNegativeMorton Plant Hospital Physician GroupComment on above:Performed By: #### URDS #### [facility] [address] [place] [address] USABenzodiazepines Screen,UrineNegativeNormalNegativeMorton Plant Hospital Physician GroupComment on above:Performed By: #### URDS #### [facility] [address] [place] [address] USACannabinoid Screen,UrineNegativeNormalNegativeMorton Plant Hospital Physician GroupComment on above:Result Comment: These are unconfirmed results and should not be used for legal purposes. Drug Cut-Off Concentration: AMPH 1000 ng/mL MAX 200 ng/mL JUHI 200 ng/mL COCM 300 ng/mL OP 300 ng/mL PCP 25 ng/mL THC 20 ng/mL PERFORMED BY: [place] [address] PATHOLOGIST [employer] MEMBER ZUHAIR KAUR M.D.Performed By: #### URDS #### [facility] [address] [place] [address] USACocaine Screen,UrineNegativeNormalNegativeMorton Plant Hospital Physician GroupComment on above:Performed By: #### URDS #### [facility] [address] [place] [address] USAOpiate Screen,UrineNegativeNormalNegativeMorton Plant Hospital Physician GroupComment on above:Performed By: #### URDS #### [facility] [address] [place], [place] [id number] USAPhencyclidine Screen,UrineNegativeNormalNegativeMorton Plant Hospital Physician GroupComment on above:Performed By: #### URDS #### [facility] [address] [place], [place] [id number] USANo Panel InformationOrdered By: rosalie [facility] on 07-09-2024 Miscellaneous Pathology TestSee commentAdams County Regional Medical CenterComment on above:See report. Scanned copy available in EMR.Opiates [Presence] in Urine by Screen methodOrdered By: rosalie Elaine on 48-57-4626Saodhox Screen Ql (U) NegativeNegACMC Healthcare System GlenbeighOpiates Screen Ql (U)Opiates [Presence] in Urine by Screen methodNegACMC Healthcare System Glen[facility] Pathology Request for Lab Corpon 56-26-6099Tkqmydngu Request for Lab CorpNormal [facility] Physician GroupComment on above:Order Comment: PATHOLOGY GI SPECIMENResult Comment: See report. Scanned copy available in EMR. PERFORMED BY: [place] [id number] PATHOLOGIST [employer] MEMBER ZUHAIR KAUR M.D.Performed By: #### PATH TO [facility] #### [place] [address] USAPhencyclidine Screen Ql (U)Ordered By: James Elaine on 15-56-8900Hkpvvyknxlwcp Ql (U)NegativeNegativeAdams County Regional Medical Center Phencyclidine Ql (U)Phencyclidine [Presence] in Urine by Screen methodNegative [facility] Medical CenterALL MAGNESIUMon 61-19-7712Viuvxbtsy [Mass/Vol] 1.5 mg/dLLow1.8 - 2.4 mg/dLNOSC HealthcareALL RENAL FUNCTION PANELon 06-23-2024 Albumin [Mass/Vol]3.3 g/dLLow3.4 - 5.0 g/dLNOSC HealthcareAnion gap [Moles/Vol] 12.6 mmol/LNOMS HealthcareCalcium [Mass/Vol]8.7 mg/dL8.5 - 10.1 mg/dLNOSC HealthcareChloride [Moles/Vol]104 mmol/L98 - 107 mmol/LNOMS HealthcareCO2 [Moles/Vol]26.1 mmol/L21.0 - 32.0 mmol/LNOMS HealthcareCreatinine [Mass/Vol]1.72 mg/dLHigh0.70 - 1.30 mg/dLNOSC HealthcareGFR/1.73 sq M.predicted CKD-EPI (S/P/Bld) [Vol rate/Area]02Kvk09 - PINFNOMS HealthcareGlucose [Mass/Vol]114 mg/wPPxca45 - 106 mg/dLNOSC HealthcarePhosphate [Mass/Vol]3.2 mg/dL2.6 - 4.7 mg/dLNOSC HealthcarePotassium [Moles/Vol]4.7 mmol/L3.5 - 5.1 mmol/LNOMS HealthcareSodium [Moles/Vol]138 mmol/L136 - 145 mmol/LNOMS HealthcareTBH EGFR- NON AF [id number] - PINFNOMS HealthcareUrea nitrogen [Mass/Vol]30.0 mg/dL High7.0 - 18.0 mg/dLNOSC HealthcareUrea nitrogen/Creatinine [Mass ratio]17.4 mg/mgNOSC HealthcareALL URIC ACIDon 75-38-8974Uvkgz [Mass/Vol]8.0 mg/dLHigh3.5 - 7.2 mg/dLNOSC HealthcareEstimated glomerular filtration rate (GFR) non- Americanon 59-93-6144NCO/1.73 sq M.predicted among non-blacks MDRD (S/P/Bld) [Vol rate/Area]41 mL/min/{1.73_m2}Low>=60[facility] Laboratory - Chemistry and Chemistry - challengeon 37-26-1819Eakfuhp [Mass/Vol] 3.3 g/dLLow3.4-5.0[facility] Medical CenterCalcium [Mass/Vol]8.7 mg/dL 8.5-10.1FMedina HospitalChloride [Moles/Vol]104 mmol/L98-107 [facility] Medical CenterCO2 [Moles/Vol]26.1 mmol/L21.0-32.0[facility] CenterCreatinine [Mass/Vol]1.72 mg/dLHigh0.70-1.30[facility] CenterGFR/1.73 sq M.predicted MDRD (S/P/Bld) [Vol rate/Area]50 mL/min/{1.73_m2}Low>=60[facility] CenterGlucose [Mass/Vol]114 mg/yHCmqo58-310ZyzgdqlccAdams County Regional Medical CenterMagnesium [Mass/Vol]1.5 mg/dLLow 1.8-2.4FMedina HospitalPotassium [Moles/Vol]4.7 mmol/L3.5-5.1 [facility] Centerodium [Moles/Vol]138 mmol/S225-076EuxhacwrpAdams County Regional Medical CenterUrate [Mass/Vol]8.0 mg/dLHigh3.5-7.2FMedina HospitalUrea nitrogen [Mass/Vol]30.0 mg/dLHigh7.0-18.0[facility] CenterUrea nitrogen/Creatinine [Mass ratio]17.4 mg/mgAdams County Regional Medical CenterLaboratory - Urinalysison 22-99-7029Qrkwcst (U) [Mass/Vol]12.6 mg/dLHigh<=11.9[facility] CenterNo Panel Informationon 06-62-7592Pruvu Random Ivgeupzxyz26.13 mg/dL20.00-300.00[facility] CenterInterpretation and review of laboratory resultsAbnoSpecial Care HospitalCLINISYNCNOMS HealthcarePhosphorus Level3.2 mg/dL2.6-4.7FCleveland Clinic Hillcrest Hospitalerum or plasma anion gap determinationon 75-82-9567Mnzef gap [Moles/Vol]12.6 mmol/LFMedina HospitalUrine protein/creatinine ratioon 51-17-9124Fclrbhr/Creatinine (U) [Ratio]0.16[facility] CenterBasic Metabolic Panelon 72-31-2796Ltdqb gap [Moles/Vol]9 mmol/L5 - 15 mmol/[facility] SystemCalcium [Mass/Vol]9.5 mg/dL8.5 - 10.5 mg/dLBarnesville HospitalChloride [Moles/Vol]105 mmol/L98 - 109 mmol/L [facility] SystemCO2 [Moles/Vol]25 mmol/L22 - 32 mmol/LProMedSelect Medical Specialty Hospital - Board[facility], Inc SystemCreatinine [Mass/Vol]1.60 mg/dLHigh0.60 - 1.30 mg/dLBarnesville HospitalComment on above:METHOD TRACEABLE TO [facility] STANDARDeGFR (CKD-EPI)non-race uqtyggvtb89Kgd[address] [place], [place] [address]Comment on above: Reported eGFR is based on the CKD-EPI 2020 equation that does not use a race coefficient. Glucose [Mass/Vol]104 mg/oMRxoi49 - 99 mg/dLBarnesville Hospital Interpretation and review of laboratory resultsAbnoLancaster General Hospital System Potassium [Moles/Vol]4.2 mmol/L3.5 - 5.0 mmol/LProMedica Health SystemSodium [Moles/Vol]139 mmol/L134 - 146 mmol/LProMedica Health SystemUrea nitrogen [Mass/Vol]31 mg/dLHigh5 - 23 mg/dLAspirus [facility] CBC AUTO DIFFon 20-22-2375ZWGK #0.1 103/ulNormal0.0-0.1The [facility] Comment on above:Performed By: #### CBC #### [facility] [address] [address] [address] Yilan ChangBasophils/100 WBC (Bld)0.9 %Normal0.2-2.0The [facility] Comment on above:Performed By: #### CBC #### [facility] [address] [place] [address] Dr. Lavonne Bell #0.4 103/ulNormal0.0-0.7The [facility] HospitalComment on above: Performed By: #### CBC #### [facility] [address] [place] [address] Dr. Lavonne Elizabethosinophils/100 WBC (Bld)4.5 %Normal0.9-7.0The [facility] Comment on above:Performed By: #### CBC #### [facility] [address] [place] [address] Dr. Lavonne Elizabethrythrocyte distribution width (RBC) [Ratio]13.4 %Qorzcp85.0-15.0 The [facility] HospitalComment on above:Performed By: #### CBC #### [facility] [address] [place] [address] Dr. Lavonne TinocoHematocrit (Bld) [Volume fraction]45.0 %Uqchtu58.0-54.0The [facility] HospitalComment on above:Performed By: #### CBC #### [facility] [address] [place] [address] Dr. Lavonne TinocoHemoglobin (Bld) [Mass/Vol]15.1 g/oEIofrzy06.0-18.0The [facility] HospitalComment on above:Performed By: #### CBC #### [facility] [address] [place] [address] Dr. Lavonne Hill #0.04 10e3/ulCritically high0.00-0.03The [facility] Comment on above:Performed By: #### CBC #### [facility] [address] [place] [address] Dr. Lavonne Hill %0.4 %Normal0.0-0.5The [facility] HospitalComment on above: Performed By: #### CBC #### [facility] [address] [place] [address] Dr. Lavonne Portillo #2.0 103/ulNormal1.2-3.8The [facility] HospitalComment on above:Performed By: #### CBC #### [facility] [address] [place] [address] Dr. Lavonne Hahocytes/100 WBC (Bld)21.6 %Hjwytz72.5-60.0The [facility] HospitalComment on above:Performed By: #### CBC #### [facility] [address] [place] [address] Dr. Lavonne Douglas DIFF REQNONormalThe [facility] HospitalComment on above: Performed By: #### CBC #### [facility] [address] [place] [address] Dr. Lavonne Rutherford (RBC) [Entitic mass]32.7 cpAkhbqk92.9-34.0The [facility] HospitalComment on above:Performed By: #### CBC #### [facility] [address] [place] [address] Dr. Lavonne Rutherford (RBC) [Mass/Vol]33.6 g/cOVrmroh42.9-35.2The [facility] HospitalComment on above:Performed By: #### CBC #### [facility] [address] [place] [address] Dr. Lavonne Rutherford (RBC) [Entitic vol]97.4 fLCritically high80.0-94.0The [facility] HospitalComment on above:Performed By: #### CBC #### [facility] [address] [place] [address] Dr. Lavonne Askew #0.6 103/ulNormal0.3-0.8The [facility] HospitalComment on above:Performed By: #### CBC #### [facility] [address] [place] [address] Dr. Lavonne Keatingocytes/100 WBC (Bld)6.0 %Normal1.7-12.0The [facility] Comment on above:Performed By: #### CBC #### [facility] [address] [place] [address] Dr. Lavonne KnightUT #6.3 103/ulNormal1.4-6.5The [facility] HospitalComment on above:Performed By: #### CBC #### [facility] [address] [place] [address] Dr. Lavonne Knightutrophils/100 WBC (Bld)66.6 %Tyxilr08.0-75.0German HospitalComment on above:Performed By: #### CBC #### [facility] [address] [place] [address] Dr. Lavonne TinocoPlatelet mean volume (Bld) [Entitic vol]10.7 fLNormal9.5-13.5The [facility] HospitalComwalter p. [facility] on above:Performed By: #### CBC #### [facility] [address] [place] [address] Dr. Lavonne TinocoPLT300 103/axDhldux729-977Ezk [facility] HospitalComwalter p. [facility] on above: Performed By: #### CBC #### [facility] [address] [place] [address] Dr. Lavonne TinocoRBC4.62 106/ulCritically low4.70-6.10The [facility] HospitalComwalter p. [facility] psychiatric hospital on above:Performed By: #### CBC #### [facility] [address] [place] [address] Dr. Lavonne TinocoWBC9.4 103/ulNormal4.0-11.0German HospitalComwalter p. [facility] on above: Performed By: #### CBC #### [facility] [address] [place] [address] Dr. Lavonne TinocoFREE T4on 81-55-8019Ziyo T4 [Mass/Vol]0.90 ng/dLNormal0.76-1.46 [facility] on above:Performed By: #### CMP, TSH, LIPID #### [facility] [address] [place] [address] Dr. Lavonne TinocoLIPID PROFILEon 03-95-9419POTK-HDL RATIO NORMSEE BELOWNoEast [facility] Regional HospitalComwalter p. [facility] psychiatric hospital on above:Result Comment: 3.3 - 4.4 LOW RISK 4.4 - 7.1 AVERAGE RISK 7.1 - 11.0 MODERATE RISK >11.0 HIGH RISKPerformed By: #### CMP, TSH, LIPID #### [facility] [address] [place] [address] Dr. Lavonne TinocoCholesterol [Mass/Vol]207 mg/dLCritically high<=200The [facility] on above:Performed By: #### CMP, TSH, LIPID #### [facility] [address] [place] [address] Dr. Lavonne Camargoesterol in HDL [Mass/Vol]37 mg/dLCritically oqx32-40NssGerman HospitalComwalter p. reuther psychiatric hospital on above:Performed By: #### CMP, TSH, LIPID #### [facility] [address] [place] [address] Dr. Lavonne TinocoCholesterol in LDL [Mass/Vol]143.8 mg/dLGalion Community Hospital on above:Performed By: #### CMP, TSH, LIPID #### [facility] [address] [place] [address] Dr. Lavonne Camargoesterzoran.total/Cholesterol in HDL [Mass ratio]5.6 {ratio} NormalOhioHealth Nelsonville Health Center on above:Performed By: #### CMP, TSH, LIPID #### [facility] [address] [place] [address] Dr. Lavonne South NORMAL> or = 60 mg/dl - LOW CARDIOVASCULAR RISK <40 mg/dl - HIGH CARDIOVASCULAR RISKGalion Community Hospital on above:Performed By: #### CMP, TSH, LIPID #### [facility] [address] [place] [address] Dr. Lavonne TinocoLDL CALC NORMALSEE BELOWMercy Health St. Elizabeth Boardman HospitalComwalter p. [facility] psychiatric hospital on above:Result Comment: <100 mg/dl OPTIMAL 100 - 129 mg/dl NEAR OR ABOVE OPTIMAL 130 - 159 mg/dl BORDERLINE HIGH 160 - 189 mg/dl HIGH >190 mg/dl VERY HIGH Performed By: #### CMP, TSH, LIPID #### [facility] [address] [place] [address] Dr. Lavonne TinocoTriglyceride [Mass/Vol]131 mg/dLNormal<=150The [facility] Comment on above:Performed By: #### CMP, TSH, LIPID #### [facility] [address] [address] [address] Lavonne TinocoVLDL CALC26.2 mg/dLNormalThe [facility] HospitalComment on above: Performed By: #### CMP, TSH, LIPID #### [facility] [address] [address] [address] Lavonne TinocoPROF 14(COMP METB)on 24-66-4264Owglfqg [Mass/Vol]3.6 g/dLNormal 3.4-5.0The [facility] HospitalComment on above:Performed By: #### CMP, TSH, LIPID #### [facility] [address] [place] [address] Dr. Lavonne TinocoAlbumin/Globulin [Mass ratio]1.0 {ratio}NormalThe [facility] HospitalComment on above:Performed By: #### CMP, TSH, LIPID #### [facility] [address] [address] [address] Lavonne Rodas [Catalytic activity/Vol]85 U/RKkqqvl35-986Mpc [facility] Hospitalment on above:Performed By: #### CMP, TSH, LIPID #### [facility] [address] [place] [address] Dr. Lavonne Yepez [Catalytic activity/Vol]33 U/VZyrwml63-79Raq [facility] HospitalComment on above:Performed By: #### CMP, TSH, LIPID #### [facility] [address] [address] [address] Lavonne Albrecht gap [Moles/Vol]9.2 mmol/LNormalThe [facility] HospitalComwalter p. [facility]uther psychiatric hospital on above:Performed By: #### CMP, TSH, LIPID #### [facility] [address] [place] [address] Dr. Lavonne Cota [Catalytic activity/Vol]17 U/MZcmizr92-56Hac [facility] HospitalComment on above:Performed By: #### CMP, TSH, LIPID #### [facility] [address] [address] [address] Lavonne TinocoBilirubin [Mass/Vol]0.5 mg/dLNormal0.2-1.0The [facility] Comment on above:Performed By: #### CMP, TSH, LIPID #### [facility] [address] [address] [address] Lavonne TinocoCalcium [Mass/Vol]8.5 mg/dLNormal8.5-10.1The [facility] Comment on above:Performed By: #### CMP, TSH, LIPID #### [facility] [address] [address] [address] Lavonne TinocoChloride [Moles/Vol]106 mmol/MUwurll18-963Vww [facility] Comment on above:Performed By: #### CMP, TSH, LIPID #### [facility] [address] [place] [address] Dr. Lavonne TinocoCO2 [Moles/Vol]31.3 mmol/HEbdmdi59.0-32.0The [facility] Comment on above:Performed By: #### CMP, TSH, LIPID #### [facility] [address] [address] [address] Lavonne TinocoCreatinine [Mass/Vol]1.06 mg/dLNormal0.70-1.30The [facility] HospitalComment on above:Performed By: #### CMP, TSH, LIPID #### [facility] [address] [place] [address] Dr. Lavonne ElizabethGFR-AF GUATEMALAN>60Normal>=60The [facility] HospitalComment on above:Performed By: #### CMP, TSH, LIPID #### [facility] [address] [address] [address] Lavonne ElizabethGFR-NON AF GUATEMALAN>60Normal>=60The [facility] HospitalComment on above:Performed By: #### CMP, TSH, LIPID #### [facility] [address] [place] [address] Dr. Lavonne TinocoGlobulin (S) [Mass/Vol]3.6 g/dLNormalThe Cokeville HospitalComment on above:Performed By: #### CMP, TSH, LIPID #### [facility] [address] [address] [address] Lavonne TinocoGlucose [Mass/Vol]101 mg/xPCkzcjy75-968LksGerman Hospital Comment on above:Performed By: #### CMP, TSH, LIPID #### [facility] [address] [place] [address] Dr. Lavonne TinocoPotassium [Moles/Vol]3.5 mmol/LNormal3.5-5.1The [facility] Comment on above:Performed By: #### CMP, TSH, LIPID #### [facility] [address] [place] [address] Dr. Lavonne TinocoProtein [Mass/Vol]7.2 g/dLNormal6.4-8.2[facility] Comment on above:Performed By: #### CMP, TSH, LIPID #### [facility] [address] [place] [address] Dr. Lavonne TinocoSodium [Moles/Vol]143 mmol/DWapzvl396-585OdoGerman Hospital Comment on above:Performed By: #### CMP, TSH, LIPID #### [facility] [address] [place] [address] Dr. Lavonne TinocoUrea nitrogen [Mass/Vol]21.0 mg/dLCritically high7.0-18.0German HospitalComment on above:Performed By: #### CMP, TSH, LIPID #### [facility] [address] [place] [address] Dr. Lavonne Rene nitrogen/Creatinine [Mass ratio]19.8 mg/mgNoEast Ohio Regional HospitalComment on above:Performed By: #### CMP, TSH, LIPID #### [facility] [address] [place] [address] Dr. Lavonne Meyer 49-00-6988NSK2.947 uIU/mLNormal0.358-3.740German HospitalComment on above:Performed By: #### CMP, TSH, LIPID #### [facility] [address] [address] [address] Lavonne Massey RANDOM W/MICROSCOPICon 51-28-8879TBZIGZLVTNBD SEENNormalNONE SEENGerman HospitalComment on above:Performed By: #### UAMIC #### [facility] [address] [address] [address] Lavonne TinocoBilirubin Ql (U)NegativeNormalNEGATIVEGerman Hospital Comment on above:Performed By: #### UAMIC #### [facility] [address] [address] [address] Lavonne TinocoCASTNONE SEENNormalNONE SEENGerman HospitalComment on above:Performed By: #### UAMIC #### [facility] [address] [address] [address] Lavonne TinocoClarity (U)CLEARNormalCLEARGerman HospitalComment on above: Performed By: #### UAMIC #### [facility] [address] [address] [address] Lavonne TinocoColor (U)YELLOWNormalYELLOWGerman HospitalComment on above: Performed By: #### UAMIC #### [facility] [address] [place] [address] Dr. Lavonne TinoocCrystals LM Nom (Urine sed)NONE SEENNormalNONE SEENGerman HospitalComment on above:Performed By: #### UAMIC #### [facility] [address] [address] [address] Banerjee ChangEpithelial cells LM Ql (Urine sed)FEWAbnormalNONE SEEN /RAREGerman HospitalComment on above:Performed By: #### UAMIC #### [facility] [address] [address] [address] Lavonne TinocoGlucose Ql (U)NegativeNormalNEGATIVEGerman HospitalComment on above:Performed By: #### UAMIC #### [facility] [address] [address] [address] Lavonne TinocoHemoglobin Ql (U)NegativeNormalNEGATIVEGerman Hospital Comment on above:Performed By: #### UAMIC #### [facility] [address] [address] [address] Lavonne Garza Ql (U)NegativeNormalNEGATIVEThe [facility] HospitalComment on above:Performed By: #### UAMIC #### [facility] [address] [address] [address] Lavonne TinocoLEUKOCYTESTRACEAbnormalNEGATIVEThe [facility]keville HospitalComment on above:Performed By: #### UAMIC #### [facility] [address] [place] [address] Dr. Lavonne FlahertyCOUSNONMichelle SEENNormalNONE SEENGerman HospitalComment on above:Performed By: #### UAMIC #### [facility] [address] [place] [address] Dr. Lavonne Cline Ql (U)NegativeNormalNEGATIVEThe [facility] HospitalComment on above:Performed By: #### UAMIC #### [facility] [address] [place] [address] Dr. Lavonne TinocopH (U)6.0 [pH]Normal5-9The [facility] HospitalComment on above: Performed By: #### UAMIC #### [facility] [address] [place] [address] Dr. Lavonne TinocoRBCNCHRISTAL SEENAbnormal0-2The [facility] HospitalComment on above: Performed By: #### UAMIC #### [facility] [address] [place] [address] Dr. Lavonne TinocoSPEC GRAVITY1.589Prxihh9.005-<=1.025The [facility] HospitalComment on above:Performed By: #### UAMIC #### [facility] [address] [place] [address] Dr. Lavonne Massey PROTEINTRACENormalNEGATIVE/ TRACEThe Cokeville HospitalComment on above:Performed By: #### UAMIC #### [facility] [address] [place] [address] Dr. Lavonne Blasbillisbethgen Qn (U)2.0 {Erick'U}/dLAbnormal0.2 - 1.0The [facility] HospitalComment on above:Performed By: #### UAMIC #### [facility] [address] [place] [address] Dr. Lavonne TinocoWBC0-2AbnormalNONE SEENThe [facility] HospitalComment on above: Performed By: #### UAMIC #### [facility] [address] [place] [address] Dr. Lavonne TinocoNM STRESS/REST MULTIon 35-23-2497MC STRESS/REST MULTIPatient: ABRAM GUILLAUME Exam Date: 04/04/2022 : 1965 Gender:M Ordering : ROSI PEPPER [facility] Admission #: [id number] Family : Order #: [id number] CLICK HERE TO VIEW EXAM RADIOLOGY REPORT [...] by: Cris Kline MD on 04/04/2022 at 13:[address] [place] [address] ECHOCARDIO M/2D COMPLETEon [id number] M/2D COMPLETEPatient: ABRAM GUILLAUME Exam Date: 02/27/2022 : 1965 Gender:M Ordering : ROSI SEXT[facility] Admission #: [id number] Family : Order #: [id number] CLICK HERE TO VIEW EXAM ECHOCARDIOGRAM REPORT [...] Area(A4C): 21.60 cm2 Left Atrium Systolic Volume(A2C): 12873 mm3 Left Atrium Systolic Volume(A4C): 90107 mm3 Mitral Valve MV E to A [...] by: Dylan Peck M.D. on 02/28/2022 at 11:[address] [id number] Department of Radiology [address] [place] [id number] Patient Name: ABRAM GUILLAUME : 1965 [...] above Electronically signed: Violeta Wood. Transcribed by: [email or web address], User Resident: Electronically Signed by: VIOLETA WOOD @ 01/12/2022 03:24 [facility] HospitalComment on above:Order Comment: Views (X-RAY, ANKLE): AP, Lateral, Mortise , Weight Bearing?: YGLYCOHEMOGLOBIN A1Con 23-93-9225ZVH RECOMMENDATIONADA THERAPEUTIC TARGET 6.0 - 7.0 ACTION SUGGESTED > 7.0NoEast Ohio Regional HospitalComment on above:Performed By: #### A1C #### [facility] [address] [place] [address] Dr. Lavonne TinocoGlucose [Mass/Vol]100 mg/dLNoEast Ohio Regional HospitalComment on above:Performed By: #### A1C #### [facility] [address] [address] [address] Lavonne TinocoHbA1c (Bld) [Mass fraction]5.1 %Normal<=6.0[facility] Comment on above:Performed By: #### A1C #### [facility] [address] [place] [address] Dr. Lavonne TinocoMAGNESIUMon 63-13-7105Htrkhbbwl [Mass/Vol]1.7 mg/dLNormal1.6-2.3 The [facility] HospitalComment on above:Performed By: #### MG, BMP #### [facility] [address] [place] [address] Dr. Lavonne TinocoPROF CHEM 8 (BAS METB)on 04-97-9519Vbwdy gap [Moles/Vol]12.3 mmol/LNormalThe [facility] HospitalComment on above:Performed By: #### MG, BMP #### [facility] [address] [place] [address] Dr. Lavonne TinocoCalcium [Mass/Vol]8.7 mg/dLNormal8.5-10.1[facility] Comment on above:Performed By: #### MG, BMP #### [facility] [address] [place] [address] Dr. Lavonne TinocoChloride [Moles/Vol]107 mmol/XAnrcqg13-841Boj [facility] Comment on above:Performed By: #### MG, BMP #### [facility] [address] [place] [address] Dr. Lavonne TinocoCO2 [Moles/Vol]27.4 mmol/KYvjgru76.0-30.0The [facility] Comment on above:Performed By: #### MG, BMP #### [facility] [address] [place] [address] Dr. Lavonne TinocoCreatinine [Mass/Vol]1.50 mg/dLCritically high0.66-1.25The [facility] HospitalComment on above:Performed By: #### MG, BMP #### [facility] [address] [address] [address] Lavonne ElizabethGFR-AF DGSEYRAW80 mL/min/1.36p8Bdpvuspveg low>=60The [facility] HospitalComment on above:Performed By: #### MG, BMP #### [facility] [address] [address] [address] Lavonne ElizabethGFR-NON AF NHBPHFNO96 mL/min/1.95w7Isajnkkdiv low>=60The [facility] HospitalComment on above:Performed By: #### MG, BMP #### [facility] [address] [address] [address] Lavonne TinocoGlucose [Mass/Vol]103 mg/rXKjeloe38-034Fdk [facility] Comment on above:Performed By: #### MG, BMP #### [facility] [address] [address] [address] Lavonne TinocoPotassium [Moles/Vol]3.7 mmol/LNormal3.4-5.0[facility] Comment on above:Performed By: #### MG, BMP #### [facility] [address] [address] [address] Lavonne TinocoSodium [Moles/Vol]143 mmol/GEopxeq086-828FefGerman Hospital Comment on above:Performed By: #### MG, BMP #### [facility] [address] [address] [address] Lavonne TinocoUrea nitrogen [Mass/Vol]17.0 mg/dLNormal7.0-18.0The [facility] HospitalComment on above:Performed By: #### MG, BMP #### [facility] [address] [address] [address] Lavonne TinocoUrea nitrogen/Creatinine [Mass ratio]11.3 mg/mgNoalThProMedica Toledo HospitalComment on above:Performed By: #### MG, BMP #### [facility] [address] [place] [address] Dr. Lavonne Tinoco Vital Signs Date TimeVital SignValuePerforming OhbsfffluEjjbtdsv53-89-2644 10:18-0400Body qiulti000.3 cmMohelen Kumar MD Work Phone: 1(309)[facility]10-30-2025 10:18-0400Body mass index (BMI) [Ratio]41.64 kg/m9JeuhnjoRobert Kumar MD Work Phone: 1(672)[facility]10-30-2025 10:18-0400Body ronnte195.91 kgRobert Kumar MD Work Phone: 1(277)[facility]10-30-2025 10:18-0400Diastolic blood hkfaikvi390 mm[Hg]Robert Kumar MD Work Phone: 1(043)[facility]10-30-2025 10:180400Systolic blood mm[Hg]Robert Kumar MD Work Phone: 1(354)[facility]10-20-2025 09:27-0400Body ecpmuv902.26 cmLisa Aichholz PROTECTIVE SERVICES SOCIAL WORKER-C Work Phone: 1(290)210-[address] [place], [place] [address]323710-20-2025 09:27-0400 Body mass index (BMI) [Ratio]41.5 kg/m2Lisa Aichholz PROTECTIVE SERVICES SOCIAL WORKER-C Work Phone: 1(232)466-[address] [place], [place] [address]32[address]10-20-2025 09:27-0400 Body rxbcgiypijv87.8 [degF]Pepper Aichholz PROTECTIVE SERVICES SOCIAL WORKER-C Work Phone: 1(974)455-[address] [place], [place] [address]323710-20-2025 09:27-0400 Body qmahco352.68 kgLisa Aichholz PROTECTIVE SERVICES SOCIAL WORKER-C Work Phone: 1(544)274-[address] [place], [place] [address]32[address]10-20-2025 09:27-0400 Diastolic blood ovgxtgtr749 mm[Hg]Pepper Aichholz PROTECTIVE SERVICES SOCIAL WORKER-C Work Phone: 1(781)403-[address] [place], [place] [address]32[address]10-20-2025 09:27-0400 Heart rate79 /minLisa Aichholz PROTECTIVE SERVICES SOCIAL WORKER-C Work Phone: 1([phone] [place], [place] [address]32[address]10-20-2025 09:27-0400 Respiratory rate22 /minLisa Aichholz PROTECTIVE SERVICES SOCIAL WORKER-C Work Phone: [facility]10-20-2025 09:27-0400 SaO2% (BldA) [Mass fraction]94 %Pepper Serratosrinivasa PROTECTIVE SERVICES SOCIAL WORKER-C Work Phone: [facility]10-20-2025 09:27-0400 Systolic blood lsfydkvu814 mm[Hg]Pepper Serratosrinivasa PROTECTIVE SERVICES SOCIAL WORKER-C Work Phone: [facility]10-13-2025 10:04-0400 Body iphfpq192.[address]10-13-2025 10:04-0400Body mass index (BMI) [Ratio]39.87 kg/m[address]10-13-2025 10:04-0400 Body .[address]08-14-2025 08:25-0400Body mass index (BMI) [Ratio]39.67 kg/m2Pepper Javierpricillasrinivasa PROTECTIVE SERVICES SOCIAL WORKER Work Phone: [facility] HospitalVtxnbmakyn29-18-2327 08:25-0400Body temperature 97.81 [degF]Pepper Serratosrinivasa PROTECTIVE SERVICES SOCIAL WORKER Work Phone: [facility] HospitalCsdmdonhto24-23-3353 08:25-0400Body .84 kgPepper Javierpricillasrinivasa PROTECTIVE SERVICES SOCIAL WORKER Work Phone: [facility] HospitalGkrzdqqhwr12-15-1196 08:25-0400Diastolic blood qujkrbsu95 mm[Hg]Pepper Serratosrinivasa PROTECTIVE SERVICES SOCIAL WORKER Work Phone: [facility] HospitalSpndwpessd13-34-2398 08:25-0400Heart rate95 /min Pepper Carlie PROTECTIVE SERVICES SOCIAL WORKER Work Phone: [address] [address]Rnilozkinj29-97-9591 08:25-0400Respiratory rate22 /minLi Carlie PROTECTIVE SERVICES SOCIAL WORKER Work Phone: [address] [address]Cdvqhiihmu02-18-7830 08:25-8876CmM4% (BldA) [Mass fraction]92 %Pepper Carlie PROTECTIVE SERVICES SOCIAL WORKER Work Phone: [address] [address]Ufpimuphce66-11-2746 08:25-0400Systolic blood mm[Hg]Pepper Sexton PROTECTIVE SERVICES SOCIAL WORKER Work Phone: [facility] HospitalQljzfexbns94-31-9130 08:46-0400Body qqyiks462.3 cmRobert Kumar MD Work Phone: 1(297)[facility]08-07-2025 08:46-0400Body mass index (BMI) [Ratio]39.13 kg/d7DjjxamhRobert Kumar MD Work Phone: 1(981)[facility]08-07-2025 08:46-0400Body yvmuta271.2 kgRobert Kumar MD Work Phone: 1(721)[facility]08-07-2025 08:46-0400Diastolic blood uylktyke815 mm[Hg]Robert Kumar MD Work Phone: 1(801)[facility]08-07-2025 08:46-0400Heart rate 97 /minMohelen Kumar MD Work Phone: 1(994)[facility]08-07-2025 08:46-8485ChD2% (BldA) [Mass fraction]91 %Robert Kumar MD Work Phone: 1(957)[facility]08-07-2025 08:46-0400Systolic blood cmgxhbuv281 mm[Hg]Robert Kumar MD Work Phone: 1(739)[facility]07-16-2025 08:20-0400Body mass index (BMI) [Ratio]38.4 kg/m2Pepper Sexton PROTECTIVE SERVICES SOCIAL WORKER Work Phone: [facility] HospitalFrvntzrbcg66-32-6640 08:20-0400Body temperature 97.81 [degF]Pepper Sexton PROTECTIVE SERVICES SOCIAL WORKER Work Phone: [facility] HospitalOffllbfvla79-25-8238 08:20-0400Body pojqni126.94 kgPepper Sexton PROTECTIVE SERVICES SOCIAL WORKER Work Phone: [facility] HospitalNnvsmkddca52-56-4783 08:20-0400Diastolic blood nvjvcoud995 mm[Hg]Pepper Aichholz PROTECTIVE SERVICES SOCIAL WORKER Work Phone: [facility] HospitalKzrupmyigr90-24-3293 08:20-0400Heart rate97 /min Pepper Aichholz PROTECTIVE SERVICES SOCIAL WORKER Work Phone: [facility] HospitalMcxgooijdc83-78-5042 08:20-0400Respiratory rate18 /minLisa Aichholz PROTECTIVE SERVICES SOCIAL WORKER Work Phone: [facility] HospitalOhauiifjbt06-73-2748 08:20-1192GrZ7% (BldA) [Mass fraction]93 %Pepper Aichholz PROTECTIVE SERVICES SOCIAL WORKER Work Phone: [facility] HospitalWlnpgyrgzk63-64-8548 08:20-0400Systolic blood lsdqfuwo722 mm[Hg]Pepper Aichholz PROTECTIVE SERVICES SOCIAL WORKER Work Phone: [facility] HospitalXcgjtyqnef78-74-0331 14:45-0400Diastolic blood eifigbfs249 mm[Hg]Pepper Aichholz Work Phone: 1([phone]07-15-2025 14:45-0400 Heart xpal253 /minLisa Aichholz Work Phone: 1(785)[address]07-15-2025 14:45-0400 Systolic blood geriezkv927 mm[Hg]Pepper Aichholz Work Phone: 1(695)[address]07-15-2025 14:39-0400 Body ggllpu098.21 kgLisa Aichholz Work Phone: 1(024)[address] [place], [place] [address]07-15-2025 14:39-0400 Respiratory rate18 /minLisa Aichholz Work Phone: 1(482)691-[address] [place], [place] [address]07-15-2025 14:39-0400 SaO2% (BldA) [Mass fraction]96 %Pepper Aichholz Work Phone: 1(642)[address]07-10-2025 09:49-0400 Body niiaey621.3 cmMohamed José CARTAGENA Work Phone: 1(809)[facility]07-10-2025 09:49-0400Body mass index (BMI) [Ratio]37.66 kg/p0XrijegjRobert Kumar MD Work Phone: 1(048)[facility]07-10-2025 09:49-0400Body zifleq457.67 kgRobert Kumar MD Work Phone: 1(886)[facility]07-10-2025 09:49-0400Diastolic blood qwmbngbi471 mm[Hg]Robert Kumar MD Work Phone: 1(777)[facility]07-10-2025 09:49-0400Heart rate 91 /minRobert Kumar MD Work Phone: 1(719)[facility]07-10-2025 09:49-0400Systolic blood woqjmids957 mm[Hg]Robert Kumar MD Work Phone: 1(938)[facility]06-16-2025 08:54-0400Diastolic blood lzwimegw09 mm[Hg]Pepper Carlie PROTECTIVE SERVICES SOCIAL WORKER Work Phone: 1(096)942-[address] [place], [place] [address]Mzxlrjbbzf01-00-7703 08:54-0400Systolic blood gezbhusd702 mm[Hg]Pepper Aichholz PROTECTIVE SERVICES SOCIAL WORKER Work Phone: [facility] HospitalYazkoeecdz42-52-9096 08:26-0400Body mass index (BMI) [Ratio]38.28 kg/m2Lisa Aichholz PROTECTIVE SERVICES SOCIAL WORKER Work Phone: [facility] HospitalRwjrzmcrzg79-55-8945 08:26-0400Body temperature 98.1 [degF]Pepper Javierhayleenz PROTECTIVE SERVICES SOCIAL WORKER Work Phone: 1(932)526-[address] [place], [place] [address]Byfvdssitu88-01-4538 08:26-0400Body bdbyei985.57 kgLisa Aichholz PROTECTIVE SERVICES SOCIAL WORKER Work Phone: [facility] HospitalHhjatwedxt27-67-9419 08:26-0400Heart rate76 /min Pepper Javierhholz PROTECTIVE SERVICES SOCIAL WORKER Work Phone: [facility] HospitalMptyfwsqfe72-35-5780 08:26-0400Respiratory rate20 /minLisa Aichholz PROTECTIVE SERVICES SOCIAL WORKER Work Phone: 1(419)547-[address] [place], [place] [address]Qoavulcaqd31-75-2319 08:26-3900SiM2% (BldA) [Mass fraction]94 %Pepper Sexton PROTECTIVE SERVICES SOCIAL WORKER Work Phone: [facility] HospitalXmlkmdoldu92-52-6534 16:45-0400Body mass index (BMI) [Ratio]38.16 kg/m2Pepper Sexton PROTECTIVE SERVICES SOCIAL WORKER Work Phone: [facility] HospitalYraxyixmbo12-17-7796 16:45-0400Body temperature 98.01 [degF]Pepper Sexton PROTECTIVE SERVICES SOCIAL WORKER Work Phone: [facility] HospitalVsasfqnugc53-73-5879 16:45-0400Body spsihn620.21 kgLisa Sexton PROTECTIVE SERVICES SOCIAL WORKER Work Phone: [facility] HospitalMnnmquauci37-39-9161 16:45-0400Diastolic blood cefphngx16 mm[Hg]Pepper Sexton PROTECTIVE SERVICES SOCIAL WORKER Work Phone: [facility] HospitalSfbuxtixyc44-98-1183 16:45-0400Heart yrer556 /min Pepper Sexton PROTECTIVE SERVICES SOCIAL WORKER Work Phone: [facility] HospitalCdnwgpnjis94-06-8844 16:45-0400Respiratory rate22 /minLisa Sexton PROTECTIVE SERVICES SOCIAL WORKER Work Phone: [facility] HospitalQvwpenjqnb86-19-5593 16:45-9051KoD9% (BldA) [Mass fraction]94 %Pepper Sexton PROTECTIVE SERVICES SOCIAL WORKER Work Phone: [facility] HospitalTioemwitbn62-61-9988 16:45-0400Systolic blood gzehlcao096 mm[Hg]Pepper Sexton PROTECTIVE SERVICES SOCIAL WORKER Work Phone: [facility] HospitalVqxajvebsz35-16-9306 09:06-0400Body cfwivu448.3 Juan F Velaz PROTECTIVE SERVICES SOCIAL WORKER Work Phone: [facility] HospitalZcjlasykrt73-87-2642 09:06-0400Body mass index (BMI) [Ratio]40.46 kg/m2Pepper Sexton PROTECTIVE SERVICES SOCIAL WORKER Work Phone: [facility] HospitalChxzsxmcdf37-01-2825 09:06-0400Body temperature 97.81 [degF]Pepper Aichholz PROTECTIVE SERVICES SOCIAL WORKER Work Phone: [facility] HospitalVxeyhvtgps14-84-5423 09:06-0400Body wudepl893.29 kgLisa Aichholz PROTECTIVE SERVICES SOCIAL WORKER Work Phone: [facility] HospitalOdpdwlxsks46-33-9311 09:06-0400Diastolic blood mm[Hg]Pepper Aichholz PROTECTIVE SERVICES SOCIAL WORKER Work Phone: [facility] HospitalXcxethemqe19-43-8782 09:06-0400Heart rate91 /min Pepper Aichholz PROTECTIVE SERVICES SOCIAL WORKER Work Phone: [facility] HospitalYxqxadzfpl10-16-7242 09:06-0400Respiratory rate18 /minLisa Aichholz PROTECTIVE SERVICES SOCIAL WORKER Work Phone: [facility] HospitalClbbthatww43-69-3953 09:06-6238KhC3% (BldA) [Mass fraction]93 %Pepepr Aichholz PROTECTIVE SERVICES SOCIAL WORKER Work Phone: [facility] HospitalUnkvevtowi96-05-4336 09:06-0400Systolic blood moxfhwfu425 mm[Hg]Pepper Aichholz PROTECTIVE SERVICES SOCIAL WORKER Work Phone: [facility] HospitalAwhoniedpf76-08-7843 13:45-0400Body vblsty763.26 cmLisa Aichholz Work Phone: 1(942)323-[address] [place], [place] [address]03-12-2025 13:45-0400 Body mass index (BMI) [Ratio]41 kg/m2Lisa Aichholz Work Phone: 1(515)573-[address] [place], [place] [address]323703-12-2025 13:45-0400 Body .09 kgLisa Aichholz Work Phone: 1(979)699-[address] [place], [place] [address]03-12-2025 13:45-0400 Diastolic blood mm[Hg]Pepper Aichholz Work Phone: 1(922)184-[address] [place], [place] [address]03-12-2025 13:45-0400 Heart rate89 /minLisa Aichholz Work Phone: 1(902)179-[address] [place], [place] [address]03-12-2025 13:45-0400 Respiratory rate18 /minLisa Rojelioholz Work Phone: [facility]03-12-2025 13:45-0400 SaO2% (BldA) [Mass fraction]95 %Pepper Serratoholz Work Phone: [facility]03-12-2025 13:45-0400 Systolic blood cvffhiik933 mm[Hg]Pepper Rojelioholz Work Phone: [phone])[address]01-15-2025 09:05-0500 Body .3 Juan F Serratoayleenz PROTECTIVE SERVICES SOCIAL WORKER Work Phone: 1(831)644-[address] [place], [place] [address]Miajtfvies80-96-2536 09:05-0500Body mass index (BMI) [Ratio]41.47 kg/m2Pepper Serratoholz PROTECTIVE SERVICES SOCIAL WORKER Work Phone: [facility] HospitalIuohdtoztm08-17-3970 09:05-0500Body temperature 97.81 [degF]Pepper Serratoayleenz PROTECTIVE SERVICES SOCIAL WORKER Work Phone: [facility] HospitalNzttxbqhho54-14-9178 09:05-0500Body qxiewl336.37 kgLisa Serratoholz PROTECTIVE SERVICES SOCIAL WORKER Work Phone: [facility] HospitalXplrcllyet99-10-7066 09:05-0500Diastolic blood vhjmwxuv39 mm[Hg]Pepper Rojelioholz PROTECTIVE SERVICES SOCIAL WORKER Work Phone: [facility] HospitalAylwqzhokn47-20-3261 09:05-0500Heart rate92 /min Pepper Javierhholz PROTECTIVE SERVICES SOCIAL WORKER Work Phone: [facility] HospitalYsuurlkmlr17-95-0434 09:05-0500Respiratory rate22 /minLisa Javierhholz PROTECTIVE SERVICES SOCIAL WORKER Work Phone: [facility] HospitalHtahmnwchk97-07-9397 09:05-5517ZpA6% (BldA) [Mass fraction]96 %Pepper Rojelioholz PROTECTIVE SERVICES SOCIAL WORKER Work Phone: [facility] HospitalIdbszgikks72-05-1518 09:05-0500Systolic blood vseeqhgc122 mm[Hg]Pepper Javierhholz PROTECTIVE SERVICES SOCIAL WORKER Work Phone: [facility] HospitalYsxjbwhvyx62-50-9774 09:05-0500Diastolic blood yhndfzsz66 mm[Hg]Pepper Aichholz Work Phone: 1([phone])[address]01-14-2025 09:05-0500 Heart rate88 /minLisa Aichholz Work Phone: 1(725)[address]01-14-2025 09:05-0500 Respiratory rate18 /minLisa Aichholz Work Phone: 1(463)[address]01-14-2025 09:05-0500 SaO2% (BldA) [Mass fraction]96 %Pepper Aichholz Work Phone: 1(859)[address]01-14-2025 09:05-0500 Systolic blood mm[Hg]Pepper Aichholz Work Phone: 1(983)[address] [place], [place] 9834001-14-2025 07:31-0500 Body .8 cmLisa Aichholz Work Phone: 1(035)[address]01-14-2025 07:31-0500 Body aheysz532.66 kgLisa Aichholz Work Phone: 1(291)[address]10-17-2024 13:55-0400 Diastolic blood tninpafe31 mm[Hg]Pepper Aichholz Work Phone: 1(729)[address]10-17-2024 13:55-0400 Heart rate74 /minLisa Aichholz Work Phone: 1(544)[address] [place], [place] 9834010-17-2024 13:55-0400 Respiratory rate18 /minLisa Aichholz Work Phone: 1(364)[address]10-17-2024 13:55-0400 SaO2% (BldA) [Mass fraction]100 %Pepper Aichholz Work Phone: 1(014)[address]10-17-2024 13:55-0400 Systolic blood ihxikcuc439 mm[Hg]Pepper Aichholz Work Phone: 1(562)254-[facility]10-17-2024 11:51-0400 Body uynaak903.26 cmLisa Aichholz Work Phone: [phone]10-17-2024 11:51-0400 Body rtyybaubzpm84.6 [degF]Pepepr Aichholz Work Phone: 1(775)[address]10-17-2024 11:51-0400 Body sxvpic528.9 kgLisa Aichholz Work Phone: 1(838)[address]10-14-2024 09:44-0400 Body biviuq121.3 Chiloisa Javierhholz PROTECTIVE SERVICES SOCIAL WORKER Work Phone: [facility] HospitalQqasdoxgpd49-95-7393 09:44-0400Body mass index (BMI) [Ratio]37.18 kg/m2Lisa Aichholz PROTECTIVE SERVICES SOCIAL WORKER Work Phone: [facility] HospitalWwgrxnsbis55-26-3912 09:44-0400Body temperature 98.1 [degF]Pepper Aichholz PROTECTIVE SERVICES SOCIAL WORKER Work Phone: [facility] HospitalSgeaudmkul80-50-7718 09:44-0400Body .22 kgLisa Aichholz PROTECTIVE SERVICES SOCIAL WORKER Work Phone: [facility] HospitalPtmwhwqexq21-83-3987 09:44-0400Diastolic blood rradnovw31 mm[Hg]Pepper Aichholz PROTECTIVE SERVICES SOCIAL WORKER Work Phone: [facility] HospitalNprtrcbffz27-76-1381 09:44-0400Heart rate79 /min Pepper Aichholz PROTECTIVE SERVICES SOCIAL WORKER Work Phone: [facility] HospitalMvfuxsnzmz51-29-1400 09:44-0400Respiratory rate19 /minLisa Aichholz PROTECTIVE SERVICES SOCIAL WORKER Work Phone: [facility] HospitalIeradtakkh18-81-4649 09:44-4790YtJ3% (BldA) [Mass fraction]93 %Pepper Aichholz PROTECTIVE SERVICES SOCIAL WORKER Work Phone: [facility] HospitalXmdhbmbdmu10-86-3582 09:44-0400Systolic blood mm[Hg]Pepper Carlie PROTECTIVE SERVICES SOCIAL WORKER Work Phone: [facility] HospitalFnwxewngmg19-06-6766 08:39-0400Body .26 cmAd[facility]10-02-2024 08:39-0400Body mass index (BMI) [Ratio]42.3 kg/w0RrxpretesAdams County Regional Medical Center10-02-2024 08:39-0400Body ezwmxm886 kgAdams County Regional Medical Center10-01-2024 08:50-0400Body height 175.26 cmAd[facility] County [facility] Center10-01-2024 08:50-0400Body mass index (BMI) [Ratio]42.3 kg/l9PyuenajpsAdams County Regional Medical Center10-01-2024 08:50-0400 Body nwmwnluhlaa02.2 [degF][facility]10-01-2024 08:50-0400Body .89 kgAd[facility] Center10-01-2024 08:50-0400Diastolic blood mm[Hg][facility] 06-23-2024 08:50-0400Heart rate91 /[facility] 06-23-2024 08:50-0400Respiratory rate18 /[facility] 06-23-2024 08:50-3066LxK5% (BldA) [Mass fraction]93 %[facility]10-01-2024 08:50-0400Systolic blood rmasbtox704 mm[Hg][facility]08-05-2024 08:35-0400Body reeqhx579.[address]08-05-2024 08:35-0400Body mass index (BMI) [Ratio]38.4 kg/m2Pmh [address] [place], [place] 0123808-05-2024 08:35-0400Body .[address] [place], [place] 0123806-27-2024 09:37-0400Body .26 cmAd[facility] 03-19-2024 09:37-0400Body mass index (BMI) [Ratio]39.4 kg/t6DbfjxlsqhAdams County Regional Medical Center06-27-2024 09:37-0400Body ekazemkepfs73.8 [degF][facility]06-27-2024 09:37-0400Body xlbacg436.1 kgAd[facility] Center06-27-2024 09:37-0400Diastolic blood mm[Hg][facility]06-27-2024 09:37-0400Heart rate94 /minAdams County Regional Medical Center06-27-2024 09:37-0400Respiratory rate20 /[facility]06-27-2024 09:37-5741WzM8% (BldA) [Mass fraction]95 %[facility]06-27-2024 09:37-0400Systolic blood jlerdyxf924 mm[Hg] [facility] Encounters Encounter DateEncounter TypeCare ProviderFacilityStart: 07-22-2025 End: 46-36-2097Huyeye outpatient visit [facility] Sonia Kumar MD Work Phone: [facility] Vascular FremontComment on above: 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 Hospital HospitalStart: 07-12-2025 End: 16-24-9586awedbpapitHtte J Aichholz NP-C Work Phone: -[facility] ClydeStart: 07-12-2025 End: 32-73-8525Upzilba encounter procedurePepper [facility] [place] Work Phone: Start: 07-08-2025 End: 02-43-9396Arykzxnmxr and management of inpatientChristus St. [facility] Hospital HospitalStart: 07-05-2025 End: 65-84-3764tixtknvdfzOKGJO M SOMMERSAdams County Regional Medical Centertart: 61-29-8312Wimrjrfmh for other preprocedural examinationMOHAMED Pike Community Hospitaltart: 07-05-2025 End: 62-36-9953Iewgcoy encounter procedurePm Pre-Admission Testing [address] [place] [address] - Pre AdmitComment on above:Preop examination (Primary Dx); Hypertension, unspecified type; HypomagnesemiaStart: 07-05-2025 End: 68-97-3790Sxqkdrpdhwwsq examination donePm21 Bradley Streettart: 07-02-2025 End: 05-80-0943Ndnzxb OnlyStepsayra [facility] [place] [facility] Comment on above:H/O prior ablation treatment (Primary Dx); 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 ([facility])Start: 43-56-4401Tfj-patient / Non-visitTang SMITHMulticare Health Professional [facility] Work Phone: Start: 02-11-0056Qkn-patient / Non-visitTang Hamilton MDWenatche[facility] Work Phone: Start: 05-06-2025 End: 29-73-9385Imszjy flowsheetPepper Sexton PROTECTIVE SERVICES SOCIAL WORKER Work Phone: noms CWM FMStart: 05-06-2025 End: 21-87-5526Biyzzw flowsheetPepper Sexton PROTECTIVE SERVICES SOCIAL WORKER Work Phone: noms CWM FMStart: 05-06-2025 End: 64-18-9928Nyhhdtaay Result EncounterGeneric External Data ProviderNOMS External Department UnsolicitedStart: 76-33-7558Cfa-patient / Non-visitTang Hamilton MDW[facility]atche[facility] Work Phone: Start: 05-06-2025 End: 27-78-5143Mxewzl outpatient visit 25 minutesLisa Sexton PROTECTIVE SERVICES SOCIAL WORKER Work Phone: noms CWM FMComment on above:Essential hypertension, benign (Primary Dx); Gastro-esophageal reflux disease without esophagitis; Morbid (severe) obesity due to excess calories ([facility]); Cigarette nicotine dependence without complication; Acute gout of left hand, unspecified cause; COPD with acute exacerbation (HCC); Restless legs syndromeStart: 05-06-2025 End: 15-96-7227mepnpoxmphGONF AICHHOLZNot AvailableStart: 04-29-2025 End: 08-91-9392Xiphfg outpatient visit 25 minutesMohelen Kumar MD Work Phone: [facility] Children'S HospitalmontComment on above: 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 ([facility]) (Primary Dx); Chronic deep vein thrombosis (DVT) of left thigh ([facility])Start: 04-29-2025 End: 72-23-2138bbkmfmmldbGXVOXNSDepartment of Veterans Affairs [facility] PPGStart: 04-20-2025 End: 80-14-5423vxsneyxrzfZMLVNBRFormerly [facility] HospitalStart: 04-14-2025 End: 31-19-4731Duatztdpy Result EncounterGeneric External Data ProviderNOMS External Department UnsolicitedStart: 04-14-2025 End: 71-06-4740Gomvrgirr Result EncounterGeneric External Data ProviderNOMS External Department UnsolicitedStart: 04-13-2025 End: 35-45-0368Dhxexubur Result EncounterLisa Carlie PROTECTIVE SERVICES SOCIAL WORKER Work Phone: noms External Department UnsolicitedStart: 04-13-2025 End: 62-28-8160Ciszwasgb Result EncounterLisa Carlie PROTECTIVE SERVICES SOCIAL WORKER Work Phone: noms External Department UnsolicitedStart: 04-13-2025 Non-patient / Non-visitTnag Hamilton MD-[facility] Work Phone: Start: 04-07-2025 End: 21-84-9918Xeglhk flowsheetPepper Sexton PROTECTIVE SERVICES SOCIAL WORKER Work Phone: noms CWM FMStart: 04-07-2025 End: 28-93-1547Pgfmym flowsheetPepper Sexton PROTECTIVE SERVICES SOCIAL WORKER Work Phone: noms CWM FMStart: 04-07-2025 End: 10-00-3045Vzsdcs outpatient visit 25 minutesPepper Sexton NP Work Phone: noms CWM FMComment on above:Essential hypertension, benign (Primary Dx); Morbid (severe) obesity due to excess calories (CMS-HCC); Gastro-esophageal reflux disease without esophagitis; 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); Fibromyalgia; Bronchitis; Acute gout of left hand, unspecified causeStart: 04-07-2025 End: 54-36-9796lsgtxiwwnqVOCZ AICHHOLZNot AvailableStart: 04-06-2025 End: 07-39-1386lvptqtmfepTjfs J Aichholz Work Phone: [facility] Work Phone: Start: 04-06-2025 End: 33-91-8885Hffanrs encounter Bernie Hamilton MD-[facility] Work Phone: Start: 04-01-2025 End: 73-81-0242Sxdlwb outpatient visit 25 minutesRobert Kumar MD Work Phone: [facility] [place]remontComment on above: Chronic venous insufficiency (Primary Dx); Chronic deep vein thrombosis (DVT) of popliteal vein of left lower extremity (CMS-HCC); 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 ([facility])Start: 04-01-2025 End: 17-19-8796zeabnumpmtNMGEGIX F OSMANCincinnati [facility] Ambulatory PPGStart: 03-31-2025 End: 84-82-5849Kbpkmjxme Result EncounterPepper Sexton NP Work Phone: noms External Department UnsolicitedStart: 03-31-2025 End: 61-55-1230Kuijdlluu Result EncounterPepper Sexton NP Work Phone: noms External Department UnsolicitedStart: 03-17-2025 End: 78-46-5667Uwlltrxxo Result EncounterPepper Sexton PROTECTIVE SERVICES SOCIAL WORKER Work Phone: noms External Department UnsolicitedStart: 03-17-2025 End: 28-65-2918Vwkxtzgbx Result EncounterPepper Sexton PROTECTIVE SERVICES SOCIAL WORKER Work Phone: noms External Department UnsolicitedStart: 03-17-2025 End: 97-01-8565Aselch OnlyLisa Sexton PROTECTIVE SERVICES SOCIAL WORKER Work Phone: noms CWM FMComment on above:Electrolyte abnormality (Primary Dx)Start: 51-17-0622Nzv-patient / Non-visitTang Hamilton MD-[facility] Work Phone: Start: 03-16-2025 End: 02-91-2081KqhuvuYbfo Aichholz PROTECTIVE SERVICES SOCIAL WORKER Work Phone: noms CWM FMComment on above:Atopic dermatitis, unspecified typeHypothyroidism, unspecified type ; Gastroesophageal reflux disease, unspecified whether esophagitis present; Essential hypertension, benignStart: 03-08-2025 End: 74-91-3153Tcdiaq flowsheetPepper Velaz PROTECTIVE SERVICES SOCIAL WORKER Work Phone: noms CWM FMStart: 03-08-2025 End: 94-69-6182Rernht flowsNaif Velaz PROTECTIVE SERVICES SOCIAL WORKER Work Phone: noms CWM FMStart: 03-08-2025 End: 02-40-5036Xnvcxy outpatient visit 25 minutesLisa Sexton PROTECTIVE SERVICES SOCIAL WORKER Work Phone: noms CWM FMComment on above:Cellulitis of left lower extremity (Primary Dx); Essential hypertension, benign ; Left leg swelling; Morbid (severe) obesity due to excess calories (CMS-HCC); Chronic bronchitis, unspecified chronic bronchitis type (HCC); Restless legs syndrome; Atopic dermatitis, unspecified typeStart: 03-08-2025 End: 51-89-0184bkchbztfmxSVIL AICHHOLZNot AvailableStart: 02-17-2025 End: 72-36-6783Wetxnpoylqua care manage srvc 7 day dischargePepper Sexton PROTECTIVE SERVICES SOCIAL WORKER Work Phone: noms CWM FMComment on above:Cellulitis of left lower extremity (Primary Dx); Essential hypertension, benign (CMS/HCC); Morbid (severe) obesity due to excess calories (CMS/HCC); Hypomagnesemia; Cigarette nicotine dependence without complication; MARITZA (acute kidney injury) (CMS/HCC); Left leg swellingStart: 02-17-2025 End: 22-63-1024vvohxeommsGBFWCarline Duke AvailableStart: 02-07-2025 End: 96-79-9157Swmsjteiw Result EncounterGeneric External Data ProviderNOMS External Department UnsolicitedStart: 02-07-2025 End: 65-05-0826Yxahsuegj Result EncounterGeneric External Data ProviderNOMS External Department UnsolicitedStart: 01-06-2025 End: 64-11-1280Hivakz flowsNaif Sexton PROTECTIVE SERVICES SOCIAL WORKER Work Phone: noms CWM FMStart: 01-06-2025 End: 15-96-3485Jyieus Bailey Sexton PROTECTIVE SERVICES SOCIAL WORKER Work Phone: noms CWM FMStart: 01-06-2025 End: 94-60-6379Erfbur outpatient visit 25 minutesPepper Sexton PROTECTIVE SERVICES SOCIAL WORKER Work Phone: noms CWM FMComment on above:Essential hypertension, benign (CMS/HCC) (Primary Dx); Chronic kidney disease, stage 3a (HCC) (CMS/HCC); Gastro-esophageal reflux disease without esophagitis; Morbid (severe) obesity due to excess calories (CMS/HCC); Mixed hyperlipidemia (CMS/HCC); Hypomagnesemia; Screening for prostate cancer; Marijuana use; Hypothyroidism, unspecified type (CMS/HCC); FibromyalgiaStart: 01-06-2025 End: 23-00-5867jonphrvtbhWQKICarline Duke AvailableStart: 12-02-2024 End: 07-24-4207xvvfblzskfNkix J Aichholz Work Phone: [facility] Work Phone: Start: 12-02-2024 End: 56-88-8883Rmdglvb encounter procedureLisa Aichholz Work Phone: [facility] Nephrology [place] Work Phone: Start: 11-26-2024 End: 79-61-8710Chxfmgebg Result EncounterGeneric External Data ProviderNOMS External Department UnsolicitedStart: 11-26-2024 End: 49-71-8143Wroanuion Result EncounterGeneric External Data ProviderNOMS External Department UnsolicitedStart: 11-24-2024 End: 20-48-9390Tagzhlroz Result EncounterGeneric External Data ProviderNOMS External Department UnsolicitedStart: 11-24-2024 End: 92-23-8137Nrjmpmyqh Result EncounterGeneric External Data ProviderNOMS External Department UnsolicitedStart: 41-64-9658Oau-patient / Non-visitLisa Aichholz Work Phone: Count Includes [facility] Work Phone: Start: 11-05-2024 End: 28-04-4739Htnaffxpw Result EncounterLisa Aichholz PROTECTIVE SERVICES SOCIAL WORKER Work Phone: noms External Department UnsolicitedStart: 11-05-2024 End: 47-78-7922Zmmjokdqj Result EncounterLisa Aichholz PROTECTIVE SERVICES SOCIAL WORKER Work Phone: noms External Department UnsolicitedStart: 11-04-2024 End: 24-41-4091RzujusHzdp Aichholz PROTECTIVE SERVICES SOCIAL WORKER Work Phone: noms CWM FMComment on above:Hypomagnesemia; Restless legs syndromeStart: 10-08-2024 End: 21-26-9499CjhvfyNbze Aichholz PROTECTIVE SERVICES SOCIAL WORKER Work Phone: noms CWM FMComment on above:Hypothyroidism, unspecified type (CMS/HCC) (Primary Dx); HypomagnesemiaStart: 10-07-2024 End: 60-55-1684Jchaav flowsheetLisa Aichholz PROTECTIVE SERVICES SOCIAL WORKER Work Phone: noms CWM FMStart: 10-07-2024 End: 94-37-8616Ddiqcx flowsheetPepper Serratoholz PROTECTIVE SERVICES SOCIAL WORKER Work Phone: noms CWM FMStart: 10-07-2024 End: 68-80-3933Kfzlpwpvc Result EncounterPepper Serratosrinivasa PROTECTIVE SERVICES SOCIAL WORKER Work Phone: noms External Department UnsolicitedStart: 10-07-2024 End: 60-40-0573Zldntt outpatient visit 25 minutesPepper Serratosrinivasa PROTECTIVE SERVICES SOCIAL WORKER Work Phone: noms CWM FMComment on above:Essential [...] unspecified chronic bronchitis type (CMS/HCC)Start: 10-07-2024 End: 94-55-1003suqdoqrbhdSLSM AICHHOLZNot AvailableStart: 81-12-3774Bkb-patient / Non-visitPepper Sexton Work Phone: Count Includes [facility] GroupThe [facility] Work Phone: Start: 10-06-2024 End: 31-13-7244Qliriefao to same day surgery centerPepper Sexton Work Phone: [facility] Work Phone: Start: 10-06-2024 End: 94-86-1199wqwmetbwjeQldf J Aichholz Work Phone: [facility] Work Phone: Start: 09-28-2024 End: 67-61-5056Zasmhetgr Result EncounterLisa Aichholz PROTECTIVE SERVICES SOCIAL WORKER Work Phone: noms External Department UnsolicitedStart: 09-28-2024 End: 77-89-1851Phgelcyxg Result EncounterLisa Aichholz PROTECTIVE SERVICES SOCIAL WORKER Work Phone: noms External Department UnsolicitedStart: 09-28-2024 End: 51-76-6736KhzlmaTmpm Aichholz PROTECTIVE SERVICES SOCIAL WORKER Work Phone: noms CWM FMComment on above:Hypomagnesemia (Primary Dx)Start: 09-14-2024 End: 24-05-2368GpczatVlou Aichholz PROTECTIVE SERVICES SOCIAL WORKER Work Phone: noms CWM FMComment on above:HypomagnesemiaStart: 09-14-2024 End: 79-09-0212LdxghmBded Aichholz PROTECTIVE SERVICES SOCIAL WORKER Work Phone: noms CWM FMComment on above:FibromyalgiaStart: 09-04-2024 End: 83-48-2984Jkeqht OnlyLisa Aichholz PROTECTIVE SERVICES SOCIAL WORKER Work Phone: noms CWM FMComment on above:Hypomagnesemia (Primary Dx)Start: 09-04-2024 End: 99-72-0283WkvrjdMwla Aichholz PROTECTIVE SERVICES SOCIAL WORKER Work Phone: noms CWM FMComment on above:HypomagnesemiaStart: 18-23-2718Ukl-patient / Non-visitLisa Aichholz Work Phone: Count Includes [facility] Gastroenterology Work Phone: Start: 07-09-2024 End: 34-39-2645Utlrvhfiy to same day surgery centerLisa Aichholz Work Phone: [facility] Work Phone: Start: 07-09-2024 End: 99-67-8193wsmssljjwmAucp J Aichholz Work Phone: [facility] Work Phone: Start: 07-06-2024 End: 09-40-6436Pldktl tylorPepper Herrerapricillasrinivasa PROTECTIVE SERVICES SOCIAL WORKER Work Phone: noms CWM FMStart: 07-06-2024 End: 37-47-3683Alqagz tylorPepper Herrerapricillasrinivasa PROTECTIVE SERVICES SOCIAL WORKER Work Phone: noms CWM FMStart: 07-06-2024 End: 10-80-9785Fwvgiv outpatient visit 25 minutesLi Carlie PROTECTIVE SERVICES SOCIAL WORKER Work Phone: noms CWM FMComment on above:Essential hypertension, benign (CMS/HCC) (Primary Dx); Hypomagnesemia; Gastroesophageal reflux disease, unspecified whether esophagitis present; Obesity (BMI 30-39.9); Hypothyroidism, unspecified type (CMS/HCC); Needs flu shotStart: 07-06-2024 End: 07-65-2866ytzfnedhoyRBDZ ABRAHAMot AvailableStart: 06-30-2024 End: 24-75-2931Sdlhnf flowsAngela Bo DO Work Phone: noms CI ORTHOPAEDICSStart: 06-30-2024 End: 91-30-0186Kbobvg flowsAngela Bo DO Work Phone: noms CI ORTHOPAEDICSStart: 06-30-2024 End: 87-76-0449Qmhoqv follow up visit related to original pxRupert Bo DO Work Phone: noms CI ORTHOPAEDICSComment on above:Cubital tunnel syndrome on right (Primary Dx)Start: 06-30-2024 End: 42-30-3426gvstggafcnNIYWN A HUDTAWNYANot AvailableStart: 06-29-2024 End: 40-84-5946PwohymQvtr Aichholz PROTECTIVE SERVICES SOCIAL WORKER Work Phone: noms CWM FMComment on above:Restless legs syndrome Start: 06-24-2024 End: 47-49-3485obxxojpbhmTqseclvmnSumma Health Work Phone: Start: 06-24-2024 End: 20-75-1630Ppnfyya encounter procedureCount Includes [facility] Work Phone: Start: 06-23-2024 End: 58-22-3616Owrcxqell Result EncounterGeneric External Data ProviderNOMS External Department UnsolicitedStart: 06-23-2024 End: 29-92-0775Muignabwl Result EncounterGeneric External Data ProviderNOMS External Department UnsolicitedStart: 06-23-2024 End: 60-07-4499llvgsffmyqYvfuqcoegSumma Health Work Phone: Start: 06-23-2024 End: 75-06-3235Qvaebtb encounter procedureCount Includes [facility] Physician [facility] Nephrology [place] Work Phone: Start: 06-18-2024 End: 53-43-5835WdofapEtopkg Benedict MD Work Phone: noms [place] STATE ROUTEComment on above:Degenerative disc disease, cervical (Primary Dx)Start: 06-09-2024 End: 86-35-6162NdhqavThst Carlie PROTECTIVE SERVICES SOCIAL WORKER Work Phone: noms CWM FMComment on above:Hypomagnesemiaquestions Start: 06-03-2024 End: 95-46-4923Tujixk flowsheetMaria B Apling PROTECTIVE SERVICES SOCIAL WORKER Work Phone: noms CI ORTHOPAEDICSStart: 06-03-2024 End: 90-28-2257Enzxzk flowsheetMaria B Apling PROTECTIVE SERVICES SOCIAL WORKER Work Phone: noms CI ORTHOPAEDICSStart: 06-03-2024 End: 43-77-0434zsothtnceaWFOZC B APLINGNot AvailableStart: 06-03-2024 End: 79-62-3934Leyxnk follow up visit related to original pxMaria B Apling PROTECTIVE SERVICES SOCIAL WORKER Work Phone: noms CI ORTHOPAEDICSComment on above:Cubital tunnel syndrome on right (Primary Dx)Start: 05-26-2024 End: 52-54-7254TiwmdqGqkhc T Olsen PROTECTIVE SERVICES SOCIAL WORKER Work Phone: noms FB ORTHOPAEDICSComment on above:Post-operative pain (Primary Dx)Start: 05-04-2024 End: 96-24-2186Feztngkurefe stateTiburcio Noel PROTECTIVE SERVICES SOCIAL WORKER Work Phone: noms HealthcareStart: 04-27-2024 End: 84-23-4343Tvfvpbb encounter procedureProm[facility] Pre-Ad[facility] Testing [address] [place] [address] - Pre AdmitComment on above:Preop examination (Primary Dx); Hypertension, unspecified typeStart: 04-27-2024 End: 28-73-7396Qunrckddaqwtd examination done[address] SystemStart: 03-19-2024 End: 49-39-2878ounofvcnzzGvkxmsoptSumma Health Work Phone: Start: 03-19-2024 End: 03-35-4830Upmikzn encounter procedureCount Includes [facility] Nephrology Work Phone: Start: 07-19-2022 End: 49-62-7990jjvnwiexnsDPM PEPPER AICHHOLZFacility:Y5Vwfhb: 04-04-2022 End: 93-35-6961udezorvmwuIJL PEPPER AICHHOLZFacility:H4Iwsfe: 02-27-2022 End: 03-45-0603drzrvttybeSRZ PEPPER AICHHOLZFacility:G7Nyjpw: 01-16-2022 End: 10-56-8579stpxucywgnXFA PEPPER AICHHOLZFacility:S3Upzat: 12-25-2021 End: 14-85-4958lqnhpaeowhZMS PEPPER AICHHOLZFacility:H1 Procedures DateProcedureProcedure DetailPerforming ClinicianStart: 66-07-9676GIL MAGNESIUM Generic External Data ProviderStart: 61-53-0548JFB MAGNESIUMVioleta YU Work Phone: Start: 32-09-6039OEM URIC ACIDLisa Carlie PROTECTIVE SERVICES SOCIAL WORKER Work Phone: Start: 86-92-9408SFE BASIC METABOLIC PANELLisa Aichholz PROTECTIVE SERVICES SOCIAL WORKER Work Phone: Start: 63-22-5249ZAD CBC WITH AUTO DIFFLisa Aichholz PROTECTIVE SERVICES SOCIAL WORKER Work Phone: Start: 57-94-8323JVLAL CULTURE 2Generic External Data ProviderStart: 68-96-5795EFABO CULTURE 1Generic External Data ProviderStart: 64-27-7580ILH CBC WITH AUTO DIFFGeneric External Data ProviderStart: 11-24-2024 ALL MAGNESIUMGeneric External Data ProviderStart: 00-73-5437GHQ MAGNESIUMLisa Aichholz PROTECTIVE SERVICES SOCIAL WORKER Work Phone: Start: 44-31-4311WGI MAGNESIUMLisa Aichholz PROTECTIVE SERVICES SOCIAL WORKER Work Phone: Start: 15-59-1410SLJ THYROID STIM HORMONELisa Aichholz PROTECTIVE SERVICES SOCIAL WORKER Work Phone: Start: 71-11-0321Wuurnfdsft glycosylated g4dFfam Aichholz PROTECTIVE SERVICES SOCIAL WORKER Work Phone: Start: 25-91-3219NlqumnjebfncriqxmudeoiqnfdMlfl Aichholz Work Phone: Start: 45-77-8668IDJ BASIC METABOLIC PANELLisa Aichholz PROTECTIVE SERVICES SOCIAL WORKER Work Phone: Start: 84-87-7201BXG MAGNESIUMLisa Aichholz PROTECTIVE SERVICES SOCIAL WORKER Work Phone: Start: 09-15-6439DerlktwvstcdtuavpixxrghgcfHqdf Aichholz Work Phone: Start: 08-45-6555CTO MAGNESIUMGeneric External Data ProviderStart: 18-94-8468HMQ RENAL FUNCTION PANELGeneric External Data Provider Start: 40-35-7734SJA URIC ACIDGeneric External Data ProviderStart: 80-96-2975XVH screeningCNP PEPPER AICHHOLZComment on above:Performed By: #### CMP, TSH, LIPID #### [facility] [address] [place] [address] Dr. Lavonne TinocoH/O: surgeryH/O prior ablation treatmentSdavid Houston Plan of Treatment DateCare ActivityDetailAuthorStart: 61-14-2607Wutbi BMI ScreeningAdult BMI ScreeningProMedical Center Barbour Health SystemStart: 78-64-2450Olhqgua ScreeningTobacco ScreeningBarnesville Hospitalca Health SystemStart: 77-60-5206Lltbm BMI ScreeningAdult BMI ScreeningBarnesville Hospitalca Health SystemStart: 06-60-4839Ttoaclv ScreeningTobacco ScreeningUniversity Hospitals [facility] Health SystemStart: 46-76-9194Kloul BMI ScreeningAdult BMI ScreeningProKindred Hospital Lima SystemStart: 58-91-4524Bbzmk BMI ScreeningAdult BMI ScreeningProCleveland Clinic Euclid Hospitalca [facility] SystemStart: 10-28-2025 End: 32-52-2013Kdscqxg encounter jeinutxyk13/05/2026 10:00 AM EST Office Visit [facility] [place] [address] [place] [address] Vanessa Bedolla, SNUFF MAKER-[employer]AR[employer] SCIENCE FACULTY MEMBER [address] [place] [address] [facility] [place]ontStart: 93-09-1435Vfurzmxpr for malignant neoplasm of colonNOMS HealthcareStart: 08-09-2025 End: 31-89-8474Ylbyicl encounter rlxqhtpos72/17/2025 8:40 AM EST Office Visit [facility] [address] [place] [address] Pepper Sexton NP [address] [place] [address] [facility] FMStart: 07-22-2025 End: 74-65-0395Ggcnwxw encounter elntadfgz59/30/2025 10:15 AM EDT Office Visit [facility] [place] [address] [place] [address] Vanessa Bedolla, SNUFF MAKER-EARTH SCIENCE FACULTY [place] [address] [facility] Hospitaltart: 07-14-2025 End: 70-77-6001Wsbvqot encounter avoiqaevs38/22/2025 1:00 PM EDT Appointment [facility] [address] [place] [address] Robert Kumar MD [address], [address] [address] [facility] VascularStart: 07-08-2025 End: 80-79-5247BBVNHIPE VENOUS RADIOFREQUENCYABLATION VENOUS RADIOFREQUENCY 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 ([facility]) 07/08/2025 2:00 PM EDK[facility]tering [facility] SystemStart: 07-08-2025 End: 56-92-5778Ayyiffunp to same day surgery hsrgan0307/08/2025 2:00 PM EDT - 07/08/2025 3:00 PM EDT Surgery [facility] Surgery [address] [place] [address] Robert Kumar MD [address], [facility] [address] [place] [address] ABLATION VENOUS ODIKHOWUYAZNTO-DTD-NHEUSWWKHZuxRmgzce [facility] Surgery Comment on above:ABLATION VENOUS FIFBOEEMBYUHRI-VXK-FICXRZCHCCcgdh: 07-08-2025 End: 71-79-3472Kzlawwkqgk ilztheeeigus58/16/2025 2:00 PM EDT Anesthesia Event [facility] Surgery [address] [place], [place] [address] German Yip, DO [address] [facility], [place] [id number] [facility] SurgeryStart: 07-08-2025 End: 85-39-7295PKBBFVFQKWMDH LOWER EXTREMITYSCLEROTHERAPY LOWER EXTREMITY 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 ([facility]) 07/08/2025 2:00 PM EDTPCity Hospital SystemStart: 01-59-7382Laqeccwfyd hospital visit by physicianProGuernsey Memorial Hospital - SurgeryComment on above:Preop examination (Primary Dx); HypomagnesemiaStart: 07-05-2025 End: 38-25-3735Modmnaw encounter thzcybouj00/13/2025 9:45 AM EDT Procedure visit [facility] - Pre Admit [address] [place] [address] [phone] [facility]hes[facility] - Pre AdmitStart: 07-02-2025 End: 56-02-4808OD.doppler Lower extremity vein - leftVas venous duplex lwr single left Vascular Ultrasound Routine H/O prior ablation treatment 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 ([facility]) Expected: 07/02/2025, Expires: 07/02/2026[facility] Work Phone: Comment on above:Expected: 07/02/2025, Expires: 07/02/2026Start: 72-86-4370Eawggul ScreeningTobacco ScreeningGuernsey Memorial Hospital SystemStart: 25-90-1546Ydmejheas vaccinationInfluenza VaccineGuernsey Memorial Hospital SystemStart: 05-06-2025 End: 77-39-2334Imjqoan encounter goyfmvpgs72/14/2025 8:20 AM EDT Office Visit [facility] [address] [place] [address] Pepper Sexton NP [address] [place] [address] Essential hypertension, benign (Primary Dx); Gastro- esophageal reflux disease without esophagitis;Morbid (severe) obesity due to excess calories ([facility]); Cigarette nicotine dependence without complication; Acute gout of left hand, unspecified causeNOMS CWM FMComment on above:Essential hypertension, benign (Primary Dx); Gastro-esophageal reflux disease without esophagitis; Morbid (severe) obesity due to excess calories ([facility]); Cigarette nicotine dependence without complication; Acute gout of left hand, unspecified causeStart: 05-05-2025 End: 15-49-9019Htqzdch encounter dqvubtfoq00/13/2025 8:20 AM EDT Office Visit [facility] [address] [place] [address] Pepper Sexton, REMBERTO [address] [place] [address] [facility] FMStart: 04-29-2025 End: 11-68-0426Gjcezag encounter gqxrdecgs05/07/2025 8:50 AM EDT Office Visit [facility] [place] [address] Robert Kumar MD [address], [address] [address] [facility] Centertart: 70-66-1679Vpglh BMI ScreeningAdult BMI ScreeningGuernsey Memorial Hospital SystemStart: 08-63-1175Ncqztrd ScreeningTobacco ScreeningUNC Hospitals Hillsborough Campustart: 04-20-2025 End: 32-54-3302Hzqxjou encounter jalfobbjc88/29/2025 9:00 AM EDT Appointment [facility] [address] [place] [address] Robert Kumar MD [address], [address] [place] [address] [facility] HamiltonStart: 04-07-2025 End: 01-95-2614Oxohr [Mass/volume] in Serum or PlasmaUric acid Lab Routine Acute gout of left hand, unspecified cause Expected: 04/07/2025 (Approximate), Expires: 04/07/2026[facility] Work Phone: Comment on above:Expected: 04/07/2025 (Approximate), Expires: 04/07/2026Start: 04-07-2025 End: 59-00-6098Vkuxwzt encounter procedureNOMS [facility] FMComment on above:Morbid (severe) obesity due to excess calories (CMS-HCC) (Primary Dx); Gastro-esophageal reflux disease without esophagitis; 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); Cellulitis of left lower extremityStart: 04-01-2025 End: 14-88-5722GG.doppler Lower extremity vein - leftVas venous duplex insufficiency lwr lt Vascular Ultrasound Routine Chronic venous insufficiency Expected: 04/01/2025, Expires: 04/01/2026[facility] Work Phone: [phone] on above:Expected: 04/01/2025, Expires: 04/01/2026Start: 03-17-2025 End: 90-76-8810Jsjyl metabolic 1998 panel - Serum or PlasmaBasic metabolic panel Lab Routine Electrolyte abnormality Expected: 03/17/2025 (Approximate), s: 03/17/2026[facility] Work Phone: Comment on above:Expected: 03/17/2025 (Approximate), Expires: 03/17/2026Start: 03-08-2025 End: 08-95-3638Xyvckbp encounter myhffwwnk15/16/2025 8:20 AM EDT Office Visit [facility] [address] [place] [id number] Pepper Sexton NP [address] [place] [address] Essential hypertension, benign (Primary Dx); Cellulitis of left lower extremity; Left leg swelling; Morbid (severe) obesity due to excess calories (CMS-HCC)[facility] FMComment on above:Essential hypertension, benign (Primary Dx); Cellulitis of left lower extremity; Left leg swelling; Morbid (severe) obesity due to excess calories (CMS-HCC)Start: 01-06-2025 End: 66-97-7277WOG W Auto Differential panel - BloodCBC and differential Lab Routine Gastro-esophageal reflux disease without esophagitis Expected: 12/22 (Approximate), Expires: 01/06/2026[facility] HealthcareComment on above: Expected: 01/06/2025 (Approximate), Expires: 01/06/2026Start: 01-06-2025 End: 09-66-1965Eptjpdfuaynoj metabolic 2000 panel - Serum or PlasmaComprehensive metabolic panel Lab Routine Chronic kidney disease, stage 3a (HCC) (CMS/HCC) Essential hypertension, benign (CMS/HCC) Gastro-esophageal reflux disease without esophagitis Mixed hyperlipidemia (CMS/HCC) Expected: 01/06/2025 (Approximate), Expires: 01/06/2026[facility] HealthcareComment on above:Expected: 01/06/2025 (Approximate), Expires: 01/06/2026Start: 01-06-2025 End: 58-32-0905Ofgpm 1996 panel - Serum or PlasmaLipid panel Lab Routine Mixed hyperlipidemia (CMS/HCC) Expected: 01/06/2025 (Approximate), Expires:01/06/2026 [facility] Work Phone: Comment on above:Expected: 01/06/2025 (Approximate), Expires: 01/06/2026Start: 01-06-2025 End: 84-44-0538Xnclfzrkoegx/Creatinine panel in random UrineMicroalbumin / creatinine, urine ratio Lab Routine Essential hypertension, benign (CMS/HCC) Expected: 01/06/2025 (Approximate), Expires: 01/06/2026[facility] HealthcareComment on above:Expected: 01/06/2025 (Approximate), Expires: 01/06/2026Start: 01-06-2025 End: 59-56-0873Zjqmljzm specific Ag [Mass/volume] in Serum or PlasmaPSA Lab Routine Screening for prostate cancer Expected: 01/06/2025 (Approximate), Expires: 01/06/2026[facility] HealthcareComment on above:Expected: 01/06/2025 (Approximate), Expires: 01/06/2026Start: 01-06-2025 End: 57-75-4656Szkdjulopcb [Units/volume] in Serum or PlasmaTSH Lab Routine Hypothyroidism, unspecified type (CMS/HCC) Expected: 01/06/2025 (Approximate), Expires: 01/06/2026[facility] HealthcareComment on above:Expected: 01/06/2025 (Approximate), Expires: 01/06/2026Start: 01-06-2025 End: 68-21-0720Rphqaugxs (T4) free [Mass/volume] in Serum or PlasmaT4, free Lab Routine Hypothyroidism, unspecified type (CMS/HCC) Expected: 01/06/2025 (Approximate),Expires: 01/06/2026[facility] HealthcareComment on above:Expected: 01/06/2025 (Approximate), Expires: 01/06/2026Start: 01-06-2025 End: 65-34-2535Oriuzbkheg complete panel - UrineUrinalysis with reflex microscopic (clean catch) Lab Routine Essential hypertension, benign (CMS/HCC) Expected: 01/06/2025 (Approximate), Expires: 01/06/2026[facility] HealthcareComment on above:Expected: 01/06/2025 (Approximate), Expires: 01/06/2026Start: 01-06-2025 End: 24-47-2948Mcfvuyj encounter procedureNOMS CWM FMComment on above:Essential hypertension, benign (CMS/HCC) (Primary Dx); Chronic kidney disease, stage 3a (HCC) (CMS/HCC); Gastro-esophageal reflux disease without esophagitis; Morbid (severe) obesity due to excess calories (CMS/HCC); Mixed hyperlipidemia (CMS/HCC); Hypomagnesemia; Screening for prostate cancer; Marijuana use; Hypothyroidism, unspecified type (CMS/HCC)Start: 12-06-2024 End: 82-59-6216Efqrqzmzoan [Units/volume] in Serum or PlasmaTSH Lab Routine Hypothyroidism, unspecified type (CMS/HCC) Expected: 12/06/2024 (Approximate), Expires: 10/08/2025[facility] Work Phone: Comment on above:Expected: 12/06/2024 (Approximate), Expires: 10/08/2025Start: 12-06-2024 End: 73-78-3954Lgkbmkits (T4) free [Mass/volume] in Serum or PlasmaT4, free Lab Routine Hypothyroidism, unspecified type (CMS/HCC) Expected: 12/06/2024 (Approximate),Expires: 10/08/2025[facility] HealthcareComment on above:Expected: 12/06/2024 (Approximate), Expires: 10/08/2025Start: 10-22-2024 End: 27-11-7037Nwqqzhpna [Mass/volume] in Serum or PlasmaMagnesium Lab Routine Hypomagnesemia Expected: 10/22/2024 (Approximate), Expires: 10/08/2025[facility] HealthcareComment on above:Expected: 10/22/2024 (Approximate), Expires: 10/08/2025Start: 10-07-2024 End: 19-50-6329Lwrgznzgc [Mass/volume] in Serum or PlasmaMagnesium Lab Routine Hypomagnesemia Expected: 10/07/2024 (Approximate), Expires: 10/07/2025[facility] HealthcareComment on above:Expected: 10/07/2024 (Approximate), Expires: 10/07/2025Start: 10-07-2024 End: 05-27-9625Tbrldxrcovf [Units/volume] in Serum or PlasmaTSH Lab Routine Hypothyroidism, unspecified type (CMS/HCC) Expected: 10/07/2024 (Approximate), Expires: 10/07/2025[facility] Work Phone: Comment on above:Expected: 10/07/2024 (Approximate), Expires: 10/07/2025Start: 10-07-2024 End: 43-33-5310Goupmduoc (T4) free [Mass/volume] in Serum or PlasmaT4, free Lab Routine Hypothyroidism, unspecified type (CMS/HCC) Expected: 10/07/2024 (Approximate),Expires: 10/07/2025[facility] HealthcareComment on above:Expected: 10/07/2024 (Approximate), Expires: 10/07/2025Start: 10-07-2024 End: 98-51-2236Igliffa encounter procedureNOMS CWM FMComment on above:GURVINDER (obstructive sleep apnea) (Primary Dx); Morbid (severe) obesity due to excess calories (CMS/HCC); Gastro-esophageal reflux disease without esophagitis; Body mass index (BMI) 37.0-37.9, adult; COPD mixed type (CMS/HCC); Essential hypertension, benign (CMS/HCC); Pulmonary hypertension (CMS/HCC); Hypothyroidism, unspecified type (CMS/HCC); Obesity (BMI 30-39.9); Mixed hyperlipidemia (CMS/HCC); Hypomagnesemia; Marijuana use; Pre-diabetesStart: 26-30-6257HnxykywgpLakeHealth Beachwood Medical Centertart: 09-04-2024 End: 35-40-2612Qvlzs metabolic 1997 panel - Serum or PlasmaBasic metabolic panel Lab Routine Hypomagnesemia Expected: 09/04/2024 (Approximate), Expires: 2024[facility] HealthcareComment on above:Expected: 09/04/2024 (Approximate), Expires: 09/04/2025Start: 09-04-2024 End: 22-22-3054Xkexiziny [Mass/volume] in Serum or PlasmaMagnesium Lab Routine Hypomagnesemia Expected: 09/04/2024 (Approximate), Expires: 09/04/2025[facility] Work Phone: Comment on above:Expected: 09/04/2024 (Approximate), Expires: 09/04/2025Start: 73-32-0910EnyirteofLakeHealth Beachwood Medical Centertart: 07-06-2024 End: 11-43-5025Wxqzkbj encounter procedureNOMS CWM FMComment on above:Arrived Start: 06-30-2024 End: 47-79-7866Oqyfpxg encounter procedureNOMS CI ORTHOPAEDICSComment on above: ArrivedStart: 06-09-2024 End: 58-88-8217Ijiyb metabolic 1997 panel - Serum or PlasmaBasic metabolic panel Lab Routine Hypomagnesemia Expected: 06/09/2024 (Approximate), Expires: 2024[facility] Work Phone: Comment on above:Expected: 06/09/2024 (Approximate), Expires: 06/09/2025Start: 06-09-2024 End: 81-92-5918Lrcwgsoev [Mass/volume] in Serum or PlasmaMagnesium Lab Routine Hypomagnesemia Expected: 06/09/2024 (Approximate), Expires: 06/09/2025[facility] HealthcareComment on above:Expected: 06/09/2024 (Approximate), Expires: 06/09/2025Start: 06-03-2024 End: 36-64-6002Fyqgeao encounter hnxkikszy45/11/2024 8:45 AM EDT Office Visit [facility] [address] [place] [address] Blank Mcfarlane NP [address] [place] [address] [facility] ORTHOPAEDICSStart: 05-27-2024 End: 08-14-0496Hoaxdbd encounter njrqsiwei82/04/2024 10:40 AM EDT Office Visit [facility] [address] [place] [address] Karuna Carranza PA [address] [place] [address] [facility] ROUTEStart: 05-27-2024 End: 68-86-9484Trgelynkp to same day surgery jvyaft1105/27/2024 7:30 AM EDT - 05/27/2024 8:30 AM EDT Surgery [facility] [address] [place] [address] Rupert Bo DO [address] [facility] [address] [place] [address] DECOMPRESSION NERVE ULNAR [80383 (CPT )][facility] - SurgeryComment on above:DECOMPRESSION NERVE ULNAR [06025 (CPT )]Start: 05-27-2024 End: 78-62-6228Fukevvxarao &/transposition ulnar nerve elbowDECOMPRESSION NERVE ULNAR right ulnar neuropathy 05/27/2024 7:30 AM EDTFREMONT SURGERYStart: 05-27-2024 End: 63-19-1563Lgzkmtw encounter ycsjkbwzx61/04/2024 7:30 AM EDT Procedure Visit [facility] Rupert Bo, DO [address] [place] [address] [facility] EXT DEPStart: 05-27-2024 Subsequent hospital visit by xrsbwxgio48/04/2024 7:30 AM EDT Hospital Encounter [facility] [address] [place] [address] Rupert Bo, DO [address] [place] [address] [facility] SurgeryStart: 92-20-5441Hrphghamr vaccinationInfluenza VaccineProKindred Hospital Lima SystemStart: 47-89-5977Zibkryozxsfwja of varicella zoster vaccineZoster (Shingles) Vaccine (1 of 2)[facility] SystemStart: 86-67-4515RCiF,Tdap and Td Vaccines (1 - Tdap)DTaP,Tdap and Td Vaccines (1 - Tdap)[facility] SystemStart: 08-96-0805Xiozt BMI Follow Up PlanAdult BMI Follow Up PlanGuernsey Memorial Hospital SystemStart: 39-28-3812Rtozfmgsft ScreeningDepression ScreeningProKindred Hospital Lima SystemStart: 37-41-8161Hybwmhkws for malignant neoplasm of colonNOMS HealthcareBLOOD CULTURE 1BLOOD CULTURE 1 Lab Routine 02/07/2025 12:02 PM EDTNOMS HealthcareBLOOD CULTURE 2BLOOD CULTURE 2 Lab Routine 02/07/2025 12:45 PM EDTNOMS HealthcarePatient [facility] Work Phone: Renal function 1999 panel - Serum or [facility] panel - Serum or [facility] HospitalRenal function 1999 panel - Serum or [facility] HospitalRenal function 1999 panel - Serum or PlasmaFirelands Regional Medical CenterFirelands [facility] Payers DatePayer CategoryPayerPolicy [id number] Cross Blue ShieldBCBS Member Subscriber Plan / Payer (Effective 2019-Present) Name: Abram Guillaume Relation to Subscriber: Self Name: Abram Guillaume Payer ID: Noton file Type: Not on file Address: [address] [place], [place] [id number] [facility] Care - PPOANTHEM Member Subscriber Plan / Payer (Effective 2019-Present) Name: Abram Guillaume Relation to Subscriber: Self Name: Abram Guillaume Payer ID: [id number] (NAIC) Type: Not on file Address: [address] [place] [id number] 03-22-7620Cccohtk9.2.840.803310.1.13.693.2.7.3.284582.69525-28-3999Pxhlipt [id number] 2.0.1.353298.3.57[id number] 2.0.1.045122.3.57[id number] 2.0.1.070246.3.57[id number] 2.840.1.083262.3.57[id number] 2..840.1.585597.3.57[id number] 2.16.840.1.576891.3.57[id number] 2.840.1.360323.3.57[id number] 2.840.1.724475.3.579.2.[id number] 2.840.1.070304.3.579.[id number] 2.840.1.122110.3.579.2.392826-14-8673Gofmzkd9013135 2.840.1.070778.3.579.2.[id number] 2.840.1.349708.3.579.2.841707-68-6201Sdfeqsf1033949 2.840.1.583874.3.579.2.0[id number] 2.840.1.823790.3.579.[id number] 2.840.1.331508.3.57[id number] 2.840.1.299472.3.57[id number] 2.840.1.099302.3.579.[id number] 2.840.1.776963.3.57[id number] 2.0.1.481062.3.579.2.5[id number] 2..0.1.191170.3.57[id number] 2..840.1.761396.3.579.[id number] 2.0.1.903036.3.579.2.[id number] 2.0.1.018121.3.579.2.660350-45-6613CeepwzbKCS461Y3565287-96-1494Sjnhctx OHX774A20796MzhgawyElscze /[id number] 320zet26-6bq1-1449-ovx6-5m3607vw231r UnknownFrontpath Advanced Care Hospital Of Southern New [id number] u8jrk1q3-y591-663g-g037-853f52og2748 [id number] 2.0.1.967169.[id number] 2.0.1.853589.3.579.2.531 Social History DateTypeDetailFacilityStart: 40-90-4604Febpwjn smoking status NHISCurrent some day smokerLakeHealth Beachwood Medical Centertart: 21-20-4392Kmf Assigned At BirthMiddletown Hospitaltart: 04-30-2024 End: 80-89-1317Pkdeirl smoking status NHISEx-smoker (finding)[facility] CenterHistory of tobacco useCurrent smokerNOMS HealthcareHistory of tobacco useCigar SmokerNOMS HealthcareStart: 04-30-2024 End: 00-79-3443Ruxohni use and exposureSmokeless tobacco non-userNOMS Healthcare Start: 06-03-2024 End: 70-08-9086Exouxekch beverage intakeCurrent drinker of alcohol (finding)[facility] HealthcareStart: 03-04-2019 End: 46-44-0460Zulamhi of Social functionNOMS HealthcareStart: 03-04-2019 End: 79-07-6022Otmjep connection and isolation panelNOMS HealthcareDo you belong to any clubs or organizations such as jew groups, unions, fraternal [...] the mortgage or rent on time?NoNOMS HealthcareStart: 48-42-8060Xuituhg Commentcaffeine: 1-2 cups per dayNOMS HealthcareStart: 33-23-1579Vto assigned at birthNot on fileNOSC HealthcareStart: 05-27-2024 End: 97-88-6026Xunyqvf smoking status NHISNever smoked tobacco (finding) [facility] Centertart: 04-28-2015 End: 14-49-0811TlzKrbx (finding)[facility] CenterHistory of tobacco useCigarette SmokerProMedica Health SystemStart: 31-88-9778Nzqaetr Commentsocial/recreationalProMedica Health System Goals DatePatient GoalDesired Activity/StatePersonal health goal Clinical Notes 04-27-2024 to 07-22-2025 Note Date & FbbkFdtsQhgmkdbg68-59-0802 Evaluation + Plan note* Assessment & Plan Note - Robert Kumar MD - 07/22/2025 10:33 AM EDTAssociated Problem(s): 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 Follow up in 3 months. [facility]10-30-2025 Miscellaneous Notes* Assessment & Plan Note - Robert Kumar MD - 07/22/2025 10:33 AM EDTAssociated Problem(s): 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 ([facility]) Continue compression therapy and calamine cream. Follow up in 3 months. documented in this encounterBarnesville Hospital10-30-2025 History of Present illness Narrative* Robert Kumar MD - 07/22/2025 10:15 AM EDT Images from the original note were not included. To: PEPPER SEXTON, SNUFF MAKER-EARTH SCIENCE FACULTY MEMBER HPI: Abram Guillaume is a 59 y.o. [...] Surgical History: Procedure Laterality Date ABLATION VENOUS TIPZRRUYAGQDGT-CSW-GIGYWLEEF Left 07/08/2025 Performed by Robert Kumar MD at [facility] DECOMPRESSION NERVE ULNAR Right 05/27/2024 Performed by Rupert Bo DO at [facility] ESOPHAGOGASTRODUODENOSCOPY x2 HERNIA REPAIR Bilateral inguinal LEG SURGERY Left 2011 broken tib/fib SCLEROTHERAPY LOWER EXTREMITY Left 07/08/2025 Performed by Robert Kumar MD at [facility] TONSILLECTOMY Social and Family History: Social History [...] Concern Present (11/25/2023) [facility] [place] of Occupational Health - Occupational Stress Questionnaire [...] a week How often do you attend jew or protestant services?: Never Do you belong to any clubs or organizations such as jew groups, unions, fraternal or athletic groups, or school groups?: Yes How often do you attend meetings of the clubs or organizations you belong to?: Never Are you , , , , never , or living with a partner?: Interpersonal Safety: Unknown (11/14/2023) Received from [facility] Safety & Environment Fear of Current or [...] 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 ([facility]) - Primary Current Assessment & Plan Continue compression therapy and calamine cream. Follow up in 3 months. Abram was seen today for varicose veins of lower extremity with varicose ulcer and ec. Diagnoses and all orders for this visit: 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 ([facility]) Robert Kumar MD, ZAN, RPVI, FSVS, FACS [...] you for your understanding. documented in this encounterVermont State HospitalStormWind Balvvw30-72-0735 Instructions* Patient Instructions* Ora Delvalle RN - 07/05/2025 9:45 AM EDT Preoperative Education Checklist- General Surgery date: 07/08/25 Surgery time: 2:00 p.m. Arrival time: 12:00 p.m. 1. Bring a photo ID and your insurance card with you the day of surgery. You will check in at the main lobby of the [facility]- registration desk is straight ahead as soon as you walk in. Tell them you are here for surgery. 2. If you have a Living Will/Durable Power of Meat Stuffer for Health Care that is not on [...] after you have bathed. 5. NO nail kenyan/acrylic on at least one finger. If you are having a hand, wrist or foot surgery then all nail kenyan and artificial/acrylic nails must be removed from [...] please call the Preadmission Testing office at [phone], Mon.-Fri. 7 a.m.-3 p.m. Leave a voicemail [...] appointment with your doctor. documented in this encounterBarnesville Hospital10-13-2025 Miscellaneous Notes* Perioperative Nursing Note - Ora Delvalle RN - 07/05/2025 9:45 AM EDT Preoperative Education Checklist- General Surgery date: 07/08/25 Surgery time: 2:00 p.m. Arrival time: 12:00 p.m. 1. Bring a photo ID and your insurance card with you the day of surgery. You will check in at the main lobby of the [facility]- registration desk is straight ahead as soon as you walk in. Tell them you are here for surgery. 2. If you have a Living Will/Durable Power of Meat Stuffer for Health Care that is not on [...] after you have bathed. 5. NO nail kenyan/acrylic on at least one finger. If you are having a hand, wrist or foot surgery then all nail kenyan and artificial/acrylic nails must be removed from [...] please call the Preadmission Testing office at [phone], Mon.-Fri. 7 a.m.-3 p.m. Leave a voicemail [...] your doctor. * Perioperative Nursing Note - Oar Delvalle RN - 07/05/2025 9:45 AM EDT Hibiclens and surgical instructions reviewed. Patient verbalized understanding. documented in this encounterBarnesville Hospital10-13-2025 Nurse Note* Perioperative Nursing Note - Ora Delvalle RN - 07/05/2025 9:45 AM EDT Preoperative Education Checklist- General Surgery date: 07/08/25 Surgery time: 2:00 p.m. Arrival time: 12:00 p.m. 1. Bring a photo ID and your insurance card with you the day of surgery. You will check in at the main lobby of the [facility]- registration desk is straight ahead as soon as you walk in. Tell them you are here for surgery. 2. If you have a Living Will/Durable Power of Meat Stuffer for Health Care that is not on [...] after you have bathed. 5. NO nail kenyan/acrylic on at least one finger. If you are having a hand, wrist or foot surgery then all nail kenyan and artificial/acrylic nails must be removed from [...] please call the Preadmission Testing office at [phone], Mon.-Fri. 7 a.m.-3 p.m. Leave a voicemail [...] to the follow-up appointment with your doctor. [facility] Hostmonster Stffow45-70-4011 Nurse Note* Perioperative Nursing Note - Ora Delvalle RN - 07/05/2025 9:45 AM EDT Hibiclens and surgical instructions reviewed. Patient verbalized understanding. [facility]08-14-2025 History of Present illness Narrative* Pepper [...] of the risks of continued smoking: stroke, ME, all forms of cancer, lung disease, and [...] Morbid (severe) obesity due to excess calories ([facility]) Discussed with [...] of the risks of continued smoking: stroke, ME, all forms of cancer, lung disease, and [...] Morbid (severe) obesity due to excess calories ([facility]) Discussed with [...] meds: amlodipine,, bystolic, valsartan documented in this [facility]08-14-2025 Instructions* Patient Instructions* Pepper Sexton NP - 05/06/2025 8:20 AM EDT Add antibiotic twice a day for 10 days documented in this [facility]08-07-2025 Evaluation + Plan note* Assessment & Plan Note - Robert Kumar MD - 04/29/2025 8:56 AM EDT Associated Problem(s): Chronic deep vein thrombosis (DVT) of left thigh ([facility]) Compression therapy. 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 Compression stockings. [facility]08-07-2025 Miscellaneous Notes* Assessment & Plan Note [...] and sclerotherapy. Compression stockings. documented in this encounterBarnesville Hospital08-07-2025 History of Present illness Narrative* Robert Kumar MD - 04/29/2025 8:50 AM EDT Images from the original note were not included. To: PEPPER SEXTON, SNUFF MAKER-EARTH SCIENCE FACULTY MEMBER HPI: Abram Guillaume is a 59 y.o. [...] 05/27/2024 Performed by Rupert Bo DO at [facility] HERNIA REPAIR Bilateral inguinal LEG SURGERY [...] Re[facility] Hunger Vital Sign Worried About Running Out of Food in the Last Year: Never true Ran Out of Food in the Last Year: Never true Transportation Needs: No Transportation Needs (11/25/2023) Received from [facility] PRAPARE - Transportation Lack of Transportation (Medical): No Lack of Transportation (Non-Medical): No Physical Activity: Sufficiently Active (11/25/2023) Received from [facility] Exercise Vital Sign Days of Exercise per Week: 5 days Minutes of Exercise per Session: 150+ min Stress: Stress Concern Present (11/25/2023) Received from [facility] [place] of Occupational Health - Occupational Stress Questionnaire Feeling of Stress : To some extent Social Connections: Moderately Integrated (11/25/2023) Received from [facility] Social Connection and Isolation Panel [NHANES] Frequency of Communication with Friends and Family: Once a week Frequency of Social Gatherings with Friends and Family: Three times a week Attends Anglican Services: Never Active Member of Clubs or Organizations: Yes Attends Club or Organization Meetings: Never Marital Status: Interpersonal Safety: Unknown (11/14/2023) [facility] from [facility] Safety & Environment Fear of Current or [...] deep vein thrombosis (DVT) of left thigh ([facility]) Current Assessment & Plan Compression therapy. Leg elevation and exercise 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 ([facility]) - Primary Current Assessment & Plan Left SSV Ablation and sclerotherapy. Compression stockings. Abram was seen today for follow up testing. Diagnoses and all orders for this visit: 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 ([facility]-HCC) Chronic deep vein thrombosis (DVT) of left thigh ([facility]-HCC) Other orders - calamine-zinc oxide 8-8 % [...] you for your understanding. documented in this encounterBarnesville HospitalProfitero [facility] [id number] History of Present illness Narrative* Pepper Sexton [...] up as of yet * Pepper Sexton, PROTECTIVE SERVICES SOCIAL WORKER - 04/07/2025 8:20 AM EDT Images from [...] includes PVD. There is no history of CAD/ME or heart failure. Hand Pain The incident [...] Morbid (severe) obesity due to excess calories ([facility]) - Primary [...] Morbid (severe) obesity due to excess calories ([facility]-HCC) Discussed with patient their BMI (actual, verses recommended). We have also discussed lifestyle modifications: attempts to perform physical activity as chronic conditions allow, also to monitor dietary intake: increasing protein/fruits/veggies and lowering carb intake (unless contraindicated). Limit sodas, juices, and sugary drinks. documented in this encounterChristian [id number] Instructions* Patient Instructions* Pepper Sexton NP - 04/07/2025 8:20 AM EDT Diclofenac cream/gel to joint on left hand Next lab draw check uric acid documented in this encounterChristian [id number] Evaluation + Plan note* Assessment & Plan Note - Robert Kumar MD - 04/01/2025 10:43 AM EDT Associated Problem(s): 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 (CMS-HCC) Compression therapy leg elevation exercise. Calamine cream. We will get venous reflux ultrasound. [facility]07[facility] Evaluation + Plan note* Assessment & Plan Note - Robert Kumar MD - 04/01/2025 10:43 AM EDTAssociated Problem(s): Chronic deep vein thrombosis (DVT) of popliteal vein of left lower extremity(CMS-HCC) Compression therapy venous reflux ultrasound. Calamine cream to the skin. [facility]07-10-2025 Miscellaneous Notes* Assessment & Plan Note [...] cream to the skin. documented in this encounterBarnesville Hospital07-10-2025 History of Present illness Narrative* Robert Kumar MD - 04/01/2025 10:00 AM EDT Images from the original note were not included. To: PEPPER SEXTON, SNUFF MAKER-EARTH SCIENCE FACULTY MEMBER HPI: Abram Guillaume is a 59 y.o. [...] 05/27/2024 Performed by Rupert Bo DO at [facility] Bilateral inguinal LEG SURGERY [...] [facility] Hunger Vital Sign Worried About Running Out of Food in the Last Year: Never true Ran Out of Food in the Last Year: Never true Transportation Needs: No Transportation Needs (11/25/2023) [facility] from [facility] PRAPARE - Transportation Lack of Transportation (Medical): No Lack of Transportation (Non-Medical): No Physical Activity: Sufficiently Active (11/25/2023) Re[facility] from [facility] Exercise Vital Sign Days of Exercise per Week: 5 days Minutes of Exercise per Session: 150+ min Stress: Stress Concern Present (11/25/2023) [facility] from [facility] [place] [facility] [employer] [facility] - Occupational Stress Questionnaire Feeling of Stress : To some extent Social Connections: Moderately Integrated (11/25/2023) Re[facility] from [facility] Social Connection and Isolation Panel [NHANES] Frequency of Communication with Friends and Family: Once a week Frequency of Social Gatherings with Friends and Family: Three times a week Attends Anglican Services: Never Active Member of Clubs or Organizations: Yes Attends Club or Organization Meetings: Never Marital Status: Interpersonal Safety: Unknown (11/14/2023) Received from [facility] Safety & Environment Fear of Current or [...] of popliteal vein of left lower extremity ([facility]-HCC) Current Assessment & Plan Compression therapy venous reflux ultrasound. Calamine cream to the skin. 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 ([facility]-HCC) Current Assessment & Plan Compression therapy leg elevation exercise. Calamine cream. We will get venous reflux ultrasound. Abram was seen today for cellulitis of left lower extremity left leg swelling . Diagnoses and all orders for this visit: Chronic venous insufficiency - Vas venous duplex insufficiency lwr lt; Future - Thigh high anti-embolism stocking Lg/Regular ([id number]) Chronic deep vein thrombosis (DVT) of popliteal vein of left lower extremity (CMS-HCC) 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 ([facility]-HCC) Robert Kumar MD, ZAN, RPVI, FSVS, FACS [...] you for your understanding. documented in this encounterBarnesville Hospital06-16-2025 History of Present illness Narrative* Pepper [...] Morbid (severe) obesity due to excess calories ([facility]-HCC) Discussed with patient their BMI (actual, verses [...] Morbid (severe) obesity due to excess calories ([facility]-HCC) Discussed with patient their BMI (actual, verses [...] about 45 mins ago documented in this encounterChristian [id number] Instructions* Patient Instructions* Pepper Sexton NP - 03/08/2025 8:20 AM EDT Return to work as of 03/09/25 Keep fu appt with me for March Hern[place] wrap for Left lower leg documented in this encounterChristian [id number] History of Present illness Narrative* Pepper Sexton NP - 02/17/2025 7:28 PM EDTAssociated Problem(s): MARITZA (acute kidney injury) ([facility]) Returning to baseline * Pepper Sexton NP - 02/17/2025 7:28 PM EDTAssociated Problem(s): Cellulitis of left lower extremity Finish atb's Off work until re assessed Elevate foot * Pepper Sexton NP - 02/17/2025 7:27 PM EDTAssociated Problem(s): Nicotine dependence The patient has been advised of the risks of continued smoking: stroke, ME, all forms of cancer, lung disease, and [...] of the risks of continued smoking: stroke, ME, all forms of cancer, lung disease, and [...] (CMS/HCC) Returning to baseline documented in this [facility]05-28-2025 Instructions* Patient Instructions* Pepper Sexton NP - 02/17/2025 4:[address] isabel referral Finish antibiotics, elevate leg Off work 2 weeks, documented in this [facility]04-16-2025 History of Present illness Narrative* Pepper Sexton [...] compliance problems. There is no history of CAD/ME, heart failure or PVD. GERD He reports [...] panel Chronic kidney disease, stage 3a (HCC) ([facility]) Sees nephrology Relevant Orders Comprehensive metabolic panel * Pepper Sexton NP - 01/06/2025 6:15 AM EDTAssociated Problem(s): Hypothyroidism ([facility]) Current med: levothyroxine Check labs yearly and [...] meds: amlodipine, bystolic, valsartan documented in this encounterChristian [id number] Instructions* Patient Instructions* Pepper Sexton NP - 01/06/2025 9:00 AM EDT Fasting labs due after 03/02/25 documented in this encounterChristian [id number] History of Present illness Narrative* Pepper Sexton [...] kidney disease. There is no history of CAD/ME. 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 documented in this [facility]01-14-2025 History and physical note Author James Elaine [facility] CenterNote Date/TimeJanuary 2024 8:32am [place] [address] Gastroenterology H&P Signed Patient: Abram Guillaume MR#: [id number] 4 : 1965 Acct:[id number] Age/Sex: 58 / M Adm Date: 5 Loc: Room: Type: [facility] Attending Dr: James Elaine MD Copies to: [...] [facility] Work Phone: 1(927) 722-777001-14-2025 [place] [address] EGD Procedure Note Signed Patient: Abram Guillaume MR#: [id number] 4 : 1965 Acct:[id number] Age/Sex: 58 / M Adm Date: 5 Loc: Room: Type: [facility] Attending Dr: James Elaine MD Copies to: MD Pepper Werner NP-C~ Esophagogastroduodenoscopy Date/Provider Date: 10/06/2024 James Elaine MD Procedure Findings: Procedure: EGD with biopsy Indication: 58-year-old man with history of esophagitis here for EGD to assess for Diana's Pre-operative diagnosis: History of esophagitis Post-operative diagnosis: Trail-colored mucosa in the esophagus otherwise normal EGD [...] MD 10/06/24 0832 Signed By: 10/06/24 0834 [facility]01-14-2025 [place] [address] Gastroenterology H&P Signed Patient: Abram Guillaume MR#: [id number] 4 : 1965 Acct:[id number] Age/Sex: 58 / M Adm Date: 5 Loc: Room: Type: [facility] Attending Dr: James Elaine MD Copies to: [...] James Elaine MD 10/06/24830 Signed By: 10/06/2432 [facility]01-06-2025 History of Present illness Narrative [...] suggestions regarding this matter. documented in this encounterChristian [id number] [facility]Ad[facility]10-14-2024 History of Present illness Narrative* [...] scope with GI, has been off his PPI/L3ugsaffpj for up coming EGD etc Continue with [...] scope with GI, has been off his PPI/Y3tmvxmrzk for up coming EGD etc Continue with GI Essential hypertension, benign (CMS/HCC) - Primary At goal no med dose chagnes Hypothyroidism (CMS/HCC) No med dose changes Hypomagnesemia Continue with TID magnesium and fu with Nephrology Relevant Medications magnesium oxide (Mag-Ox) 400 MG tablet Obesity (BMI 30-39.9) Needs flu shot declines documented in this encounterChristian [id number] History of Present illness Narrative* Rupert Bo, [...] Dr. Bo/lloyd Bo D.O. documented in this encounterChristian HospitalMpsnnyosiv22-70-1423 Telephone encounter Note* Telephone Encounter - DEBI Cho - 06/09/2024 12:22 PM EDT Spoke with patient and he will RTW tomorrow with light duty [facility] Work Phone: 1(967) 918-458509-17-2024 Miscellaneous Notes* Telephone Encounter - DEBI Cho [...] questions, if you could call him at [phone] documented in this encounterChristian HospitalJhexpajgjv96-36-4347 Telephone encounter Note* Telephone Encounter - DEBI Cho - 06/09/2024 12:16 PM EDT Spoke with patient and answered questions, he would like to RTW tomorrow with restrictions, spoke with Dr Bo and he said that was fine Christian HospitalFdxbxnciil40-74-7495 Telephone encounter Note* Telephone Encounter - Sarah Marshall - 06/09/2024 12:13 PM EDT Pt called and left vm stated he has PO questions, if you could call him at [phone] Christian [id number] History of Present illness Narrative* Blank Mcfarlane [...] weeks, continue off work documented in this [facility]09-03-2024 Telephone encounter Note* Telephone Encounter - Tiburcio Noel NP - 05/26/2024 12:16 PM EDT Post op pain rx. PDMP reviewed Christian [id number] Miscellaneous Notes* Telephone Encounter - Tiburcio Noel NP - 05/26/2024 12:16 PM EDT Post op pain rx. PDMP reviewed documented in this [facility]08-05-2024 Instructions* Patient Instructions* Ora Delvalle RN - 04/27/2024 8:15 AM EDT Preoperative Education Checklist- General Surgery date: 05/27/24 Surgery time: 0730 a.m. Arrival time: 0610 a.m. 1. Bring a photo ID and your insurance card with you the day of surgery. You will check in at the main lobby of the [facility]- registration desk is straight ahead as soon as you walk in. Tell them you are here for surgery. 2. If you have a Living Will/Durable Power of Meat Stuffer for Health Care that is not on [...] after you have bathed. 5. NO nail kenyan/acrylic on at least one finger. If you are having a hand, wrist or foot surgery then all nail kenyan and artificial/acrylic nails must be removed from [...] please call the Preadmission Testing office at [phone], Mon.-Fri. 7 a.m.-3 p.m. Leave a voicemail [...] appointment with your doctor. documented in this encounterBarnesville HospitalLanthio Pharma [id number] Miscellaneous Notes* Perioperative Nursing Note - Ora Delvalle RN - 04/27/2024 8:15 AM EDT Preoperative Education Checklist- General Surgery date: 05/27/24 Surgery time: 0730 a.m. Arrival time: 0610 a.m. 1. Bring a photo ID and your insurance card with you the day of surgery. You will check in at the main lobby of the [facility]- registration desk is straight ahead as soon as you walk in. Tell them you are here for surgery. 2. If you have a Living Will/Durable Power of Meat Stuffer for Health Care that is not on [...] after you have bathed. 5. NO nail kenyan/acrylic on at least one finger. If you are having a hand, wrist or foot surgery then all nail kenyan and artificial/acrylic nails must be removed from [...] please call the Preadmission Testing office at [phone], Mon.-Fri. 7 a.m.-3 p.m. Leave a voicemail [...] reviewed. Patient verbalized understanding. documented in this encounterBarnesville Hospital08-05-2024 Nurse Note* Perioperative Nursing Note - Ora Delvalle RN - 04/27/2024 8:15 AM EDT Preoperative Education Checklist- General Surgery date: 05/27/24 Surgery time: 0730 a.m. Arrival time: 0610 a.m. 1. Bring a photo ID and your insurance card with you the day of surgery. You will check in at the main lobby of the [facility]- registration desk is straight ahead as soon as you walk in. Tell them you are here for surgery. 2. If you have a Living Will/Durable Power of Meat Stuffer for Health Care that is not on [...] after you have bathed. 5. NO nail kenyan/acrylic on at least one finger. If you are having a hand, wrist or foot surgery then all nail kenyan and artificial/acrylic nails must be removed from [...] please call the Preadmission Testing office at [phone], Mon.-Fri. 7 a.m.-3 p.m. Leave a voicemail [...] go swimming or use a hot tub (Guided Interventionsi), or perform activities where your hand or [...] to the follow-up appointment with your doctor. [facility]08-05-[facility] Nurse Note* Perioperative Nursing Note - Ora Delvalle RN - 04/27/2024 8:15 AM EDT Hibiclens and surgical instructions reviewed. Patient verbalized understanding. [facility] HospitalEvaluation note* Diagnosis Onset Date Resolution Status GERD (gastroesophageal reflux disease) acuteHypomagnesemiaacutePrimary hypertensionThe [facility] Work Phone: Evaluation note* Diagnosis Onset Date Resolution Status GERD (gastroesophageal reflux disease) acuteHypomagnesemiaacutePrimary hypertensionacuteDyspepsiaacuteGERD (gastroesophageal reflux disease)[facility] Work Phone: Evaluation note* Diagnosis Restless legs syndrome Restless legs syndrome (RLS) documented in this encounter [facility] HealthcareEvaluation note* Diagnosis Cubital tunnel syndrome on right- Primary documented in this encounter [facility] HealthcareEvaluation note* Diagnosis Essential hypertension, benign [...] Morbid (severe) obesity due to excess calories ([facility]) Body mass index (BMI) 38.0-38.9, adult Obesity (BMI 30-39.9) Cigarette nicotine dependence without complication Gastroesophageal reflux disease, unspecified whether esophagitis present Hypomagnesemia Disorders of magnesium metabolism Pre-operative clearance- Primary Unspecified pre-operative examination Hypomagnesemia Disorders of magnesium metabolism Restless legs syndrome Restless legs syndrome (RLS) COPD with acute exacerbation ([facility]/HCC) Chronic bronchitis, unspecified chronic bronchitis type [...] myalgia and myositis documented in this encounter [facility] HealthcareEvaluation note* Diagnosis Essential hypertension, benign [...] of magnesium metabolism documented in this encounter [facility] HealthcareEvaluation noteNo assessment information availableMercy Health [...] bronchitis type (CMS/HCC) documented in this encounter [facility] HealthcareEvaluation note* Diagnosis Essential hypertension, benign [...] Hypertension, unspecified type documented in this encounter [facility]* Diagnosis Onset Date Resolution Status Admit Date GERD (gastroesophageal reflux disease) acuteMarch 2024 1:43pmHypomagnesemiaacuteMarch 2024 1:43pmPrimary hypertensionacuteMarch 2024 1:43pm [facility] Work Phone: Evaluation note* Diagnosis [...] Morbid (severe) obesity due to excess calories ([facility]-HCC) Body mass index (BMI) 38.0-38.9, adult Obesity [...] Morbid (severe) obesity due to excess calories ([facility]-HCC) Gastro-esophageal reflux disease without esophagitis Body mass [...] hypertension, benign Chronic kidney disease, stage 3a ([facility]-HCC) Gastro-esophageal reflux disease without esophagitis Morbid (severe) [...] Morbid (severe) obesity due to excess calories ([facility]-HCC) Body mass index (BMI) 38.0-38.9, adult Obesity [...] Morbid (severe) obesity due to excess calories ([facility]) Gastro-esophageal reflux [...] not elsewhere classified documented in this encounter [facility] HealthcareEvaluation note* Diagnosis Chronic venous insufficiency- Primary Unspecified venous (peripheral) insufficiency Chronic deep vein thrombosis (DVT) of popliteal vein of left lower extremity ([facility]-HCC) 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 ([facility]-HCC) documented in this encounter [facility]* Diagnosis Onset Date Resolution Status Admit Date GERD (gastroesophageal reflux disease) acuteJuly 2024 2:37pmHypomagnesemiaacuteJuly 2024 2:37pmPrimary hypertensionacuteJuly 2024 2:37pm [facility] Work Phone: Evaluation note* Diagnosis [...] Morbid (severe) obesity due to excess calories ([facility]-HCC) Body mass index (BMI) 38.0-38.9, adult Obesity [...] Morbid (severe) obesity due to excess calories ([facility]) Gastro-esophageal reflux [...] hypertension, benign Chronic kidney disease, stage 3a ([facility]) Gastro-esophageal reflux disease without esophagitis Morbid (severe) obesity due to excess calories ([facility]) Mixed hyperlipidemia [...] hand, unspecified cause documented in this encounter [facility] HealthcareEvaluation note* Diagnosis Chronic venous insufficiency- Primary Unspecified venous (peripheral) insufficiency Chronic deep vein thrombosis (DVT) of popliteal vein of left lower extremity (CMS-HCC) 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 (CMS-HCC) 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 (CMS-HCC)- Primary Chronic deep vein thrombosis (DVT) of left thigh (CMS-HCC) documented in this encounter [facility]* Diagnosis Essential hypertension, [...] Morbid (severe) obesity due to excess calories ([facility]) Body mass [...] Morbid (severe) obesity due to excess calories ([facility]) Gastro-esophageal reflux [...] hypertension, benign Chronic kidney disease, stage 3a ([facility]) Gastro-esophageal reflux disease without esophagitis Morbid (severe) obesity due to excess calories ([facility]) Mixed hyperlipidemia Mixed hyperlipidemia Hypomagnesemia Disorders of magnesium metabolism Screening for prostate cancer Special screening for malignant neoplasm of prostate Marijuana use Hypothyroidism, unspecified type Fibromyalgia Unspecified myalgia and myositis Cellulitis of left lower extremity- Primary Essential hypertension, benign Essential hypertension, benign Morbid (severe) obesity due to excess calories ([facility]) Hypomagnesemia Disorders [...] legs syndrome (RLS) documented in this encounter [facility] HealthcareEvaluation note* Diagnosis Chronic venous insufficiency- [...] and eczema (CMS-HCC) documented in this encounter [facility]* Diagnosis Chronic venous insufficiency- [...] and eczema (CMS-HCC) documented [facility] encounter [facility]* Diagnosis Onset Date Resolution Status Admit Date Essential hypertension, benign acuteOctober 2024 9:23amGERD without esophagitisacuteOctober 2024 9:23amHypomagnesemiaacuteOctober 2024 9:23amHypothyroidismacuteOctober 2024 9:23amNicotine dependenceacuteOctober 2024 9:23amOSA (obstructive sleep apnea)acuteOctober 2024 9:23am [facility] Work Phone: Evaluation note* Diagnosis Chronic venous [...] eczema (CMS-HCC)- Primary documented in this encounter [facility] SystemHistory and physical note Author James Elaine [facility] July 09, 2024 1:12pmNote Date/TimeOctober 2023 1:12p[place] [address] Gastroenterology H&P Signed Patient: Abram Guillaume MR#: [id number] 4 : 1965 Acct:[id number] Age/Sex: 58 / M Adm Date: 4 Loc: Room: Type: [facility] Attending Dr: James Elaine MD Copies to: [...] -Continue omeprazole 40 mg daily -Office number [phone]. [facility] Work Phone: InstructionsNot on filedocumented in this encounter [facility] SystemInstructionsNot on filedocumented in this encounter [facility] SystemInstructionsNot on filedocumented in this encounter [facility] SystemInstructionsNot on filedocumented in this encounter [facility] SystemReason for referral (narrative)No reason for referral information availableUniversity [facility]als [facility] Work Phone: Summary Purpose Family [...] ECG 12 lead Rupert Bo DO [address] [facility] [address] [place] [address] Referral IDStatusReasonStart DateExpiration DateVisits RequestedVisits [id number] Review Additional Source Comments (unrecognized sect ion and content) No Status Records FoundNo Status Records FoundNo Status Records FoundNo Status Records FoundNo Status Records FoundNo Status Records Found INFORMATION SOURCE (unrecogn ized section and content) DATE CREATED AUTHOR 05/18/2022 [facility] DATE CREATED AUTHOR AUTHOR'S ORGANIZ ATION 07/22/2022 [facility] DATE CREATED AUTHOR AUTHOR'S ORGANIZ ATION 10/16/2024 The [facility] Includes [facility] DATE CREATED AUTHOR AUTHOR'S ORGANIZ ATION 05/07/2025 [facility] EPIC DATE CREATED AUTHOR AUTHOR'S ORGANIZ ATION 07/16/2025 [facility] DATE CREATED AUTHOR AUTHOR'S ORGANIZ ATION 07/24/2025 [facility] Care Teams (unrecognized [...] March 19, 2024 End: March 19, 2024Pepper SextonSteward Health [facility] System Care ProviderActiveStart: March 19, 2024 End: March 19, 2024 Team Status: Inactive Member Role Status Dates Pepper Sexton Primary Care Provider Active Sta rt: June 23, 2024 End: June 23kellen Dejesusdeon RENEEana maría ProviderActiveStart: June 23, 2024 End: June 23, 2024Team MemberRelationshipSpecialtyStart DateEnd Date Anastacio Hinojosa MD [address] [place] [address] PCP - GeneralFamily Medicine11/26/23 Pepper Sexton NP [address] [place] [address] PCP - [employer]04/23/24 Pepper Sexton NP [address] [place] [address] [facility]11/26/23 Team Status: Inactive Member Role Status Dates Pepper Sexton Primary Care Provider Active Sta rt: June 24, 2024 End: June 24Dandy Lucio ProviderActiveStart: June 24, 2024 End: June 24, 2024Team MemberRelationshipSpecialtyStart DateEnd Date Anastacio Hinojosa MD [address] [place] [address] PCP - GeneralFaohly Medicine11/26/23 Pepper Sexton NP [address] [place] [address] PCP - [employer]04/23/24 Pepper Sexton NP [address] [place] [address] [facility] Medicine11/26/23Team MemberRelationshipSpecialtyStart DateEnd Date Anastacio Hinojosa MD [address] [place] [address] PCP - GeneralFamily Medicine11/26/23 Pepper Sexton NP [address] [place] [address] PCP - [employer]04/23/24 Pepper Sexton NP [address] [place] [address] Nurse PractitionerFamily Medicine11/26/23Team MemberRelationshipSpecialtyStart DateEnd Date Anastacio Hinojosa MD [address] [place] [address] PCP - GeneralFamily Medicine11/26/23 Pepper Sexton NP [address] [place] [address] PCP - [employer]04/23/24 Pepper Sexton NP [address] [place] [address] Nurse PractitionerFamily Medicine11/26/23Team MemberRelationshipSpecialtyStart DateEnd Date Anastacio Hinojosa MD [address] [place] [address] PCP - GeneralFamily Medicine11/26/23 Pepper Sexton NP [address] [place] [address] PCP - [employer]04/23/24 Pepper Sexton NP [address] [place] [address] [facility]11/26/23Team MemberRelationshipSpecialtyStart DateEnd Date Anastacio Hinojosa MD [address] [place] [address] PCP - [facility]11/26/23 Pepper Sexton NP [address] [place] [address] PCP - [employer]04/23/24 Pepper Sexton NP [address] [place] [address] [facility] [place]11/26/23 Team Status: Inactive Member Role Status Dates [...] Anastacio Hinojosa MD [address] [place] [address] PCP - GeneralFamily Medicine11/26/23 Pepper Sexton NP [address] [place] [address] PCP - [employer]04/23/24 Pepper Sexton NP [address] [place] [address] Nurse [facility]Mer[facility] Medicine11/26/23Team MemberRelationshipSpecialtyStart DateEnd Date Anastacio Hinojosa MD [address] [place] [address] PCP - GeneralFamily Medicine11/26/23 Pepper Sexton NP [address] [place] [address] PCP - [employer]04/23/24 Pepper Sexton NP [address] [place] [address] Nurse Pract[facility]Mer[facility] Medicine11/26/23Team MemberRelationshipSpecialtyStart DateEnd Date Anastacio Hinojosa MD [address] [place] [address] PCP - GeneralFamily Medicine11/26/23 Pepper Sexton NP [address] [place] [address] PCP - [employer]04/23/24 Pepper Sexton NP [address] [place] [address] [facility]11/26/23Team MemberRelationshipSpecialtyStart DateEnd Date Anastacio Hinojosa MD [address] [place] [address] PCP - [facility] Medicine11/26/23 ePpper Sexton NP [address] [place] [address] [facility] Medicine11/26/23Team MemberRelationshipSpecialtyStart DateEnd Date Anastacio Hinojosa MD [address] [place] [address] PCP - [facility] Medicine11/26/23 Pepper Sexton NP [address] [place] [address] PCP - [employer]04/23/24 Pepper Sexton NP [address] [place] [address] [facility]11/26/23Team MemberRelationshipSpecialtyStart DateEnd Date Anastacio Hinojosa MD [address] [place] [address] PCP - [facility] Medicine11/26/23 Pepper Sexton NP [address] [place] [address] PCP - [employer]04/23/24 Pepper Sexton NP [address] [place] [address] Nurse PractitionerFamily Medicine11/26/23 Team Status: Inactive Member [...] Anastacio Hinojosa MD [address] [place] [address] PCP - GeneralFamily Medicine11/26/23 Pepper Sexton NP [address] [place] [address] PCP - [employer]04/23/24 Pepper Sexton NP [address] [place] [address] Nurse PractitionerFamily Medicine11/26/23Team MemberRelationshipSpecialtyStart DateEnd Date Anastacio Hinojosa MD [address] [place] [address] PCP - GeneralFamily Medicine11/26/23 Pepper Sexton NP [address] [place] [address] PCP - [employer]04/23/24 Pepper Sexton NP [address] [place] [address] Nurse PractitionerFamily Medicine11/26/23Team MemberRelationshipSpecialtyStart DateEnd Date Anastacio Hinojosa MD [address] [place] [address] PCP - GeneralFaohly Medicine11/26/23 Pepper Sexton NP [address] [place] [address] PCP - [employer]04/23/24 Pepper Sexton NP [address] [place] [address] Nurse Pract[facility]erMer[facility] Medicine11/26/23Team MemberRelationshipSpecialtyStart DateEnd Date Anastacio Hinojosa MD [address] [place] [address] PCP - GeneralFamily Medicine11/26/23 Pepper Sexton NP [address] [place] [address] PCP - [employer]04/23/24 Pepper Sexton NP [address] [place] [address] Nurse PractitionerFamily Medicine11/26/23Team MemberRelationshipSpecialtyStart DateEnd Date Anastacio Hinojosa MD [address] [place] [address] PCP - GeneralFamily Medicine11/26/23 Pepper Sexton NP [address] [place] [address] PCP - [employer]04/23/24 Pepper Sexton NP [address] [place] [address] Nurse Pract[facility]Mer[facility] Medicine11/26/23Team MemberRelationshipSpecialtyStart DateEnd Date Anastacio Hinojosa MD [address] [place] [address] PCP - Generalmily Medicine11/26/23 Pepper Sexton NP [address] [place] [address] PCP - [employer]04/23/24 Pepper Sexton NP [address] [place] [address] Nurse Practitionermily Medicine11/26/23Team MemberRelationshipSpecialtyStart DateEnd Date Pepper Sexton, SNUFF MAKER-E[employer]AC[employer] MEMBER [address] [place] [address] PCP - GeneralNurse [facility]05/10/22 Team Status: Active Member Role Status Dates [...] Hinojosa MD [address] [place] [address] PCP - GeneralFamily Medicine11/26/23 Pepper Sexton NP [address] [place] [address] PCP - [employer]04/23/24 Pepper Sexton NP [address] [place] [address] Nurse PractitionerMer[facility]ly Medicine11/26/23Team MemberRelationshipSpecialtyStart DateEnd Date Anastacio Hinojosa MD [address] [place] [address] PCP - GeneralFamily Medicine11/26/23 Pepper Sexton NP [address] [place] [address] PCP - [employer]04/23/24 Pepper Sexton NP [address] [place] [address] Nurse PractitionerMer[facility] Medicine11/26/23Team MemberRelationshipSpecialtyStart DateEnd Date Anastacio Hinojosa MD [address] [place] [address] PCP - Generalmily Medicine11/26/23 Pepper Sexton, REMBERTO [address] [place] [address] [facility] Medicine11/26/23Team MemberRelationshipSpecialtyStart DateEnd Date Anastacio Hinojosa MD [address] [place] [address] PCP - [facility] Medicine11/26/23 Pepper Sexton, REMBERTO [address] [place] [address] Nurse [facility] Medicine11/26/23Team MemberRelationshipSpecialtyStart DateEnd Date Anastacio Hinojosa MD [address] [place] [address] PCP - [facility] Medicine11/26/23 Pepper Sexton NP [address] [place] [address] [facility] Medicine11/26/23Team MemberRelationshipSpecialtyStart DateEnd Date Anastacio Hinojosa MD [address] [place] [address] PCP - GeneralFamily Medicine11/26/23 Pepper Sexton NP [address] [place] [address] Nurse Practitionermily Medicine11/26/23Team MemberRelationshipSpecialtyStart DateEnd Date Anastacio Hinojosa MD [address] [place] [address] PCP - GeneralFamily Medicine11/26/23 Pepper Sexton NP [address] [place] [address] Nurse Practitionermily Medicine11/26/23Team MemberRelationshipSpecialtyStart DateEnd Date Anastacio Hinojosa MD [address] [place] [address] PCP - GeneralFamily Medicine11/26/23 Pepper Sexton NP [address] [place] [address] Nurse Practitionermily Medicine11/26/23Team MemberRelationshipSpecialtyStart DateEnd Date Anastacio Hinojosa MD [address] [place] [address] PCP - GeneralFamily Medicine11/26/23 Pepper Sexton NP [address] [place] [address] [facility]11/26/23Team MemberRelationshipSpecialtyStart DateEnd Date Anastacio Hinojosa MD [address] [place] [address] PCP - [facility] Medicine11/26/23 Pepper Sexton NP [address] [place] [address] [facility] Medicine11/26/23Team MemberRelationshipSpecialtyStart DateEnd Date Anastacio Hinojosa MD [address] [place] [address] PCP - [facility] Medicine11/26/23 Pepper Sexton NP [address] [place] [address] [facility] [place]11/26/23Team MemberRelationshipSpecialtyStart DateEnd Date Pepper Sexton, SNUFF MAKER-[employer] F[employer] MEMBER PCP - [facility]05/10/22Team MemberRelationshipSpecialtyStart Date End Date Anastacio Hinojosa MD [address] [place] [address] PCP - [facility]Chi [facility] [place]11/26/23 Pepper Sexton NP [address] [place] [address] Nurse PractitionerMercyone [facility]ly Medicine11/26/23Team MemberRelationshipSpecialtyStart DateEnd Date Anastacio Hinojosa MD [address] [place] [address] PCP - GeneralFamily Medicine11/26/23 Pepper Sexton NP [address] [place] [address] Nurse PractitionerMercy[facility]ly Medicine11/26/23Team MemberRelationshipSpecialtyStart DateEnd Date Anastacio Hinojosa MD [address] [place] [address] PCP - Generalmily Medicine11/26/23 Peppre Sexton NP [address] [place] [address] [facility]11/26/23Team MemberRelationshipSpecialtyStart DateEnd Date Pepper Sexton, SNUFF MAKER[employer] MEMBER PCP - GeneralNurse Practitioner05/10/22Team MemberRelationshipSpecialtyStart Date End Date Anastacio Hinojosa MD [address] [place] [address] PCP - GeneralFamily Medicine11/26/23 Pepper Sexton NP [address] [place] [address] Nurse PractitionerFamily Medicine11/26/23Team MemberRelationshipSpecialtyStart DateEnd Date Anastacio Hinojosa MD [address] [place] [address] PCP - GeneralFamily Medicine11/26/23 Pepper Sexton NP [address] [place] [address] [facility]11/26/23Team MemberRelationshipSpecialtyStart DateEnd Date Anastacio Hinojosa MD [address] [place] [address] PCP - GeneralMercyone [facility]ly Medicine11/26/23 Pepper Sexton NP [address] [place] [address] [facility]11/26/23Team MemberRelationshipSpecialtyStart DateEnd Date Pepper Sexton APRN-E[employer] MEMBER PCP - GeneralNurse Practitioner05/10/22Team MemberRelationshipSpecialtyStart Date End Date Pepper Sexton APRN-[employer]AR[employer] MEMBER PCP - GeneralNurse Practitioner05/10/22 Team Status: Active Member Role/Relationship Status Dates Pepper Sexton NP-[employer] Primary Care Provider Active Team Status: Active Member Role/Relationship Status Dates EVANGELINA Calix Primary Care Provider Active Start: April 13, 2025 Pavithra Medina ProviderActiveStart: April 13, 2025 Team Status: Active Member Role/Relationship Status Dates Pepper Sexton PROTECTIVE SERVICES SOCIAL WORKER-C Primary Care Provider Active Start: May 06, 2025 Pavithra Medina ProviderActiveStart: May 06, 2025 Team Status: Active Member Role/Relationship Status Dates Pepper Sexton PROTECTIVE SERVICES SOCIAL WORKER-C Primary Care Provider Active Start: May 26, 2025 Davidfede OlegDemetria chavarriaending ProviderActiveStart: May 26, 2025 Team Status: Active Member Role/Relationship Status Dates Pepper Sexton PROTECTIVE SERVICES SOCIAL WORKER-C Primary Care Provider Active Start: June 16, 2025 Demetria Medinaending ProviderActiveStart: June 16, 2025 Team Status: Inactive Member Role/Relationship Status Dates Pepper Sexton PROTECTIVE SERVICES SOCIAL WORKER-C Primary Care Provider Active Start: July 12, 2025 End: July 12, 2025Pepper Sexton NP-CAttenconnie ProviderActiveStart: July 12, 2025 End: July 12, 2025Team MemberRelationshipSpecialtyStart DateEnd Date Pepper Sexton, SNUFF MAKER[employer] MEMBER PCP - GeneralNurse Practitioner05/10/22 Goals (unrecognized section [...] Visit (unrecogniz ed section and content) ReasonCommentsFollow-upReasonOnset SoyoGgwihbeodzatnjsyh39/17/2024ReasonComments Med VlguefTxnllhQdvmmyukQjhr-etRzlzvxSuhpulttQdittywmgibuOqsssoWzyixiqpRuwoke-hl 3mReasonCommentscellulitus of legReasonCommentsCellulitis of left lower extremity Left leg swellingSpecialtyDiagnoses / ProceduresReferred By Contact Referred To ContactVascular Surgery Diagnoses Cellulitis of left lower extremity Left leg swelling Procedures ND OFFICE OUTPATIENT VISIT 60-74 MINS [facility] [id number] (SNOMED CT) - AMB REFERRAL TO VASCULAR SURGERY Pepper Sexton, SNUFF MAKER-[employer] FACULT[employer] MEMBER Phone: tel: fax: Fátima Isabel MD [address], [address] [address] Phone: tel:[phone] fax: Referral IDStatusReasonStart DateExpiration DateVisits RequestedVisits [id number] up testingFollow up with testing and compression. [...] BE BASED ON THE PRIMARY CLINICAL RECORDS. [employer] provides no warranty or guarantee of the accuracy or completeness of information in this document.
[2025-09-20 12:37] LABS: Magnesium 0.6 mg/dL (1.8-2.4)
== END 2025-09-20 11:42 | disposition home or self-care (01) ==
LOC: LAB 11:42
PROVIDERS: PCP Nurse Practitioner; Visit Provider Internal Medicine Nephrology
DX: E83.42 Hypomagnesemia (principal); K21.00 Gastro-esophageal reflux disease with esophagitis, without bleeding; I10 Essential (primary) hypertension
CPT/HCPCS: 36415; 83735

== ENCOUNTER 2025-09-21 07:45 | Outpatient (RCR) | payer OTHER, SELFPAY ==
[2025-08-26 08:58] VITALS: BP 151/96; PULSE 91; TEMP 36.9; O2SAT 92
[2025-08-26] MEDS: MAGNESIUM SULFATE IN WATER 4 GM/100 ML PIGGYBACK IV (09:09)
[2025-09-21 07:45] VITALS: BP 128/81; PULSE 88; TEMP 36.5; O2SAT 95
[2025-09-21] MEDS: MAGNESIUM SULFATE IN WATER 4 GM/100 ML PIGGYBACK IV (07:56)
[2025-09-21] MEDS: 0.9 % SODIUM CHLORIDE 250 ML 10 ML IV (07:58)
--- NOTE | 2025-09-21 09:26 | PC.NURSE ---
Tolerating infusion without c/o.
== END 2025-09-22 23:59 | disposition home or self-care (01) ==
LOC: INF 07:45
PROVIDERS: PCP Nurse Practitioner; Visit Provider Internal Medicine Nephrology
DX: E83.42 Hypomagnesemia (principal)
CPT/HCPCS: 96365; 96366; J3475